=== PATIENT | male | born 1950 | race Caucasian/White ===

== ENCOUNTER 2023-04-13 10:32 | Outpatient (OUT) | payer MEDICARE, SELFPAY ==
[2023-04-13 11:30] LABS: Alanine Aminotransferase 56 U/L (16-63); Albumin Level 3.2 g/dL (3.4-5.0); Alkaline Phosphatase 74 U/L (46-116); Anion Gap 9.8; Aspartate Amino Transferase 61 U/L (15-37); BUN Creatinine Ratio 15.8; Bilirubin Total 0.5 mg/dL (0.2-1.0); Calcium 9.3 mg/dL (8.5-10.1); Carbon Dioxide 30.2 mmol/L (21.0-32.0); Chloride 105 mmol/L (98-107); Estimated GFR (African America >60 (>=60); Estimated GFR (Non-African Ame >60 (>=60); Globulin 3.3 g/dL; Glucose 181 mg/dL (74-106); Sodium 141 mmol/L (136-145); Total Protein 6.5 g/dL (6.4-8.2)
== END 2023-04-13 10:33 ==
PROVIDERS: PCP Family Medicine; Visit Provider Family Medicine
DX: E11.42 Type 2 diabetes mellitus with diabetic polyneuropathy (principal); I10 Essential (primary) hypertension; R60.9 Edema, unspecified
CPT/HCPCS: 36415; 80053; 83880

== ENCOUNTER 2023-07-15 09:57 | Outpatient (OUT) | payer MEDICARE, SELFPAY ==
--- NOTE | 2023-07-15 10:04 | XR_ITS ---
The [address] [address] Patient Name: DUARTE ABRAHAM MRN: [id number] date: 1950 Sex: M Assigned Patient Location: RAD Current Patient Location: [facility] Accession/Order Number: [id number] Exam Date: 07/15/2023 10:10 Report Date: 07/15/2023 11:48 At the request of: MADISON WOOD Procedure: XR abdomen 1V EXAMINATION: XR abdomen 1V HISTORY: Kidney stone N20.0 COMPARISON: XR KUB 01/14/2023 FINDINGS: KIDNEY/URETER - RIGHT: No visible renal or ureteral calcifications. KIDNEY/URETER - LEFT: A few small calcifications overlying inferior pole of kidney. PELVIS: No visible ureteral stones. Stable pelvic calcifications favoring phleboliths. BOWEL: No abnormal dilation or deviation. BONES: Mechanical fusion of posterior spinous process of L3 and L4. OTHER: Negative. No abnormal gaseous collections. XR/XR abdomen 1V IMPRESSION: 1. Grossly stable left nephrolithiasis. Electronically authenticated by: KEAGAN HERNANDEZ Date: 07/15/2023 11:48
== END 2023-07-15 09:58 | disposition home or self-care (01) ==
LOC: RAD 09:59
PROVIDERS: PCP Family Medicine; Visit Provider Urology
DX: N20.0 Calculus of kidney (principal)
CPT/HCPCS: 74018

== ENCOUNTER 2023-07-27 09:37 | Outpatient (OUT) | payer MEDICARE, SELFPAY ==
[2023-07-27 13:51] LABS: Prostate Specific Antigen Dx 3.18 ng/mL (<=4.00)
[2023-07-27 15:49] LABS: Anion Gap 11.7; BUN Creatinine Ratio 16.5; Carbon Dioxide 27.6 mmol/L (21.0-32.0); Chloride 106 mmol/L (98-107); Estimated GFR (African America >60 (>=60); Estimated GFR (Non-African Ame >60 (>=60); Glucose 196 mg/dL (74-106); Potassium 4.3 mmol/L (3.5-5.1); Sodium 141 mmol/L (136-145)
[2023-07-27 15:50] LABS: Alanine Aminotransferase 76 U/L (16-63); Albumin Globulin Ratio 1.2; Albumin Level 3.5 g/dL (3.4-5.0); Alkaline Phosphatase 54 U/L (46-116); Aspartate Amino Transferase 61 U/L (15-37); Bilirubin Total 0.5 mg/dL (0.2-1.0); Calcium 9.3 mg/dL (8.5-10.1); Globulin 2.9 g/dL; Total Protein 6.4 g/dL (6.4-8.2); Uric Acid 4.8 mg/dL (3.5-7.2)
[2023-07-27 15:51] LABS: Chol HDL Ratio 3.9; Cholesterol 133 mg/dL (<=200); HDL Cholesterol 34 mg/dL (40-60); Triglycerides 210 mg/dL (<=150)
[2023-07-27 16:27] LABS: Estimated Average Glucose 169 mg/dL; Glycohemoglobin A1C 7.5 % (4.5-6.2)
== END 2023-07-27 09:38 | disposition home or self-care (01) ==
LOC: LAB 09:41
PROVIDERS: PCP Family Medicine; Visit Provider Family Medicine
DX: N40.1 Benign prostatic hyperplasia with lower urinary tract symptoms (principal); I10 Essential (primary) hypertension; E11.42 Type 2 diabetes mellitus with diabetic polyneuropathy; E11.29 Type 2 diabetes mellitus with other diabetic kidney complication; E78.2 Mixed hyperlipidemia; E79.0 Hyperuricemia without signs of inflammatory arthritis and tophaceous disease
CPT/HCPCS: 36415; 80053; 80061; 83036; 84153; 84550

== ENCOUNTER 2023-10-19 14:28 | Outpatient (OUT) | payer MEDICARE, SELFPAY ==
[2023-10-19 16:01] LABS: Estimated Average Glucose 180 mg/dL; Glycohemoglobin A1C 7.9 % (4.5-6.2)
== END 2023-10-19 14:29 | disposition home or self-care (01) ==
LOC: LAB 14:30
PROVIDERS: PCP Family Medicine; Visit Provider Family Medicine
DX: E11.65 Type 2 diabetes mellitus with hyperglycemia (principal)
CPT/HCPCS: 36415; 83036

== ENCOUNTER 2024-02-02 11:04 | Outpatient (OUT) | payer MEDICARE, SELFPAY ==
[2024-02-02 12:27] LABS: Estimated Average Glucose 174 mg/dL; Glycohemoglobin A1C 7.7 % (4.5-6.2)
== END 2024-02-02 11:05 | disposition home or self-care (01) ==
PROVIDERS: PCP Family Medicine; Visit Provider Family Medicine
DX: E11.65 Type 2 diabetes mellitus with hyperglycemia (principal)
CPT/HCPCS: 36415; 83036

== ENCOUNTER 2024-02-06 21:06 | Inpatient (IN) | payer MEDICARE, SELFPAY ==
[2024-02-06] VITALS (21 sets, daily range): BP systolic 120–148; BP diastolic 56–86; PULSE 0–71; TEMP 37.1; O2SAT 78–100; BMI 38.3
--- OUTSIDE RECORDS SUMMARY | 2024-02-06 21:19 | XMS_ITS | CCD ---
Author Organization [facility] Care Team Providers Care Seasonal Clerk Name Role Phone Khoa Bowles Primary Care Provider [phone] Leopoldo Frye Attending Provider Elder Qiu Attending Provider KHOA BOWLES Primary Care Physician KHOA BOWLES Primary Care Physician Unavail able BEACH ., DR WALLACE Consulting Unavailable HEMEYER ., DR QUINTEROS Primary Care Unavailable BEACH ., DR WALLACE Attending Unavailable BEACH ., DR WALLACE Admitting Unavailable BEACH ., DR WALLACE Consulting Unavailable HEMEYER ., DR QUINTEROS Primary Care Unavailable BEACH ., DR WALLACE Attending Unavailable BEACH ., DR WALLACE Admitting Unavailable TORRES, ELINA Consulting Unavailable BEACH ., DR WALLACE Consulting Unavailable HEMEYER ., DR QUINTERSO Primary Care Unavailable BEACH ., DR WALLACE Attending Unavailable BEACH ., DR WALLACE Admitting Unavailable ISAK CORTEZ Consulting Unavailable RAHEL, LISA Consulting Unavailable SWATI ROE Consulting Unavailable HEMEYER ., DR QUINTEROS Primary Care Unavailable HEMEYER ., DR QUINTEROS Attending Unavailable HEMEYER ., DR QUINTEROS Admitting Unavailable HEMEYER ., DR QUINTEROS Primary Care Unavailable BEACH ., DR WALLACE Attending Unavailable BEACH ., DR WALLACE Admitting Unavailable HEMEYER ., DR QUINTEROS Consulting Unavailable HEMEYER ., DR QUINTEROS Primary Care Unavailable HEMEYER ., DR QUINTEROS Attending Unavailable HEMEYER ., DR QUINTEROS Admitting Unavailable HEMEYER ., DR QUINTEROS Consulting Unavailable HEMEYER ., DR QUINTEROS Primary Care Unavailable HEMEYER ., DR QUINTEROS Attending Unavailable HEMEYER ., DR QUINTEROS Admitting Unavailable HEMEYER ., DR QUINTEROS Consulting Unavailable HEMEYER ., DR QUINTEROS Primary Care Unavailable HEMMER, DR BACILIO Carvajal Attending Unavailable HEMMER, DR BACILIO Carvajal Admitting Unavailable BEACH ., DR WALLACE Consulting Unavailable HEMEYER ., DR QUINTEROS Primary Care Unavailable BEACH ., DR WALLACE Attending Unavailable BEACH ., DR WALLACE Admitting Unavailable [place], DR TALI Jeffries Consulting Unavailable BEACH ., DR WALLACE Consulting Unavailable HEMEYER ., DR QUINTEROS Primary Care Unavailable BEACH ., DR WALLACE Attending Unavailable BEACH ., DR WALLACE Admitting Unavailable MD Khoa Bowles Primary Care Provider [phone] MARIZOL Ryan Attending Provider NINA, Jude R Attending Unavailable BEACH, Jude R Attending Unavailable BEACH, Jude R Attending Unavailable BEACH, Jude R Attending Unavailable BEACH, Jude R Attending Unavailable NINA, Jude Crespo Attending Unavailable Yaquelin Ryan Attending Unavailable Yaquelin Ryan Admitting Unavailable Khoa Bowles Primary Care Unavailable KHOA BOWLES Attending Unavailable PREET ENRIQUE Attending Unavailable Khoa Bowles MD Primary Care Provider Jude Beach MD Unavailable [phone] Preet Enrique DPM Unavailable [phone] Allergies Allergy Classification Reported Allergen(s) Allergy Type Date of Onset Reaction(s) Facility Opioid Agonists (1 source) Meperidine Drug Allergy 1 [facility] (4 sources) Meperidine / Promethazine; Translations: [meperidine-prome thazine] Drug Allergy Unknown (qualifier value) [facility] (5 sources) Meperidine; Translations: [meperidine] Drug Allergy 4 Tremor (finding) [facility] (2 sources) Meperidine Drug Allergy 3 [facility] (2 sources) pioglitazone Drug Allergy 3 [facility] (1 source) Doxycycline; Translations: [doxycycline] Drug Allergy [facility] (1 source) Meperidine Drug Allergy 1 [facility] (1 source) Meperidine Drug Allergy 2 [facility] (1 source) pioglitazone Drug Allergy 3 Swelling [facility] Medications Current Medications Medication Drug Class(es) Dates Sig (Normalized) Sig (Original) allopurinol 300 mg oral tablet (6 sources) Xanthine Oxidase Inhibitor Start: 11-04-2023 End: 05-02-2024 take 1 tablet by mouth in the morning allopurinol (Zyloprim) 300 MG tablet Indications: Polypharmacy Take 1 tablet (300 mg) by mouth in the morning. 90 tablet 1 11/04/2023 05/02/2024 Active Start: 12-30-2022 take 1 tablet by noemi th once daily allopurinol 300 mg Tab 300 mg = 1 tab(s), Oral, Daily, # 90 tab(s), Refills(s) 3, Pharmacy: [facility]/pharmacy #[id number], 185, cm, 12/22/21 12:11:00 EST, Height/Length Dosing, 136.7, kg, 12/22/21 12:11:00 EST, Weight Dosing Start Date: 12/30/22 Status: Ordered Start: 11-09-2018 take 1 tablet by noemi th once daily allopurinol 300 mg Tab 300 mg = 1 tab(s), Oral, Daily, # 90 tab(s), Refills(s) 3, Pharmacy: [facility]/pharmacy #[id number], 185, cm, 09/15/21 11:40:00 EST, Height/Length Dosing, 137, kg, 09/15/21 11:40:00 EST, Weight Dosing Start Date: 09/24/21 Status: Ordered aspirin 81 mg oral tablet (6 sources) Platelet Aggregation Inhibitor, Nonsteroidal Anti-inflammatory Drug Start: 09-18-2019 take 1 mg by mouth once daily aspirin 81 mg oral tablet mg tab(s), Oral, Daily, Refills(s) 0 Start Date: 09/18/19 Status: Ordered Start: 11-23-2018 take 1 tablet by noemi th once daily in the morning Aspirin (Aspirin Low Dose) 81 mg Tablet,Delayed Release (Dr/Ec) Active 81 MG PO Every morning November 23, 2018 9:16am biotin 10 mg oral capsule (3 sources) Start: 11-09-2018 take 31751 ug by mouth twice daily Biotin Active 13623 MCG PO Twice daily November 09, 2018 3:30pm biotin 62823 MCG tablet 1 (one) time each day at the same time. 0 Active cyclobenzaprine hydrochloride 10 mg oral tablet (3 sources) Muscle Relaxant Start: 04-17-2021 take 10 mg by mouth three times daily Cyclobenzaprine Active 10 MG PO Three times daily 50 April 17, 2021 12:00am Start: 11-24-2018 End: 04-03-2021 take 10 mg by mouth three times daily Cyclobenzaprine Discontinued 10 MG PO Three times daily 50 November 24, 2018 1:56pm April 03, 2021 11:56am dapagliflozin 10 mg oral tablet (1 source) Sodium-Glucose Cotransporter 2 Inhibitor Start: 11-04-2023 End: 02-02-2024 take 1 tablet by mouth in the morning dapagliflozin (Farxiga) 10 MG Indications: Diabetic nephropathy associated with type 2 diabetes mellitus (HCC) (CMS/HCC) Take 1 tablet (10 mg) by mouth in the morning. 90 tablet 0 11/04/2023 02/02/2024 Active doxycycline monohydrate 100 mg oral capsule (6 sources) Tetracycline-class Drug Start: 11-04-2023 End: 10-29-2024 take 1 capsule by mouth in the morning doxycycline (Monodox) 100 MG capsule Indications: Chronic cellulitis Take 1 capsule (100 mg) by mouth in the morning. 90 capsule 3 11/04/2023 10/29/2024 Active Start: 09-18-2019 take 1 mg by mouth twice daily doxycycline hyclate 100 mg Cap mg cap(s), Oral, BID, Refills(s) 0 Start Date: 09/18/19 Status: Ordered Start: 11-09-2018 take 100 mg by mouth once daily in the morning Doxycycline Hyclate Active 100 MG PO Every morning November 09, 2018 3:30pm fenofibrate 160 mg oral tablet (1 source) Peroxisome Proliferator Receptor alpha Agonist Start: 11-04-2023 End: 02-02-2024 take 1 tablet by mouth in the morning fenofibrate (Triglide) 160 MG tablet Indications: Mixed hyperlipidemia (CMS/HCC) Take 1 tablet (160 mg) by mouth in the morning. 90 tablet 0 11/04/2023 02/02/2024 Active ferrous sulfate 325 mg oral tablet (3 sources) Start: 11-09-2018 take 1 tablet by mouth once daily Ferrous Sulfate (Iron (Ferrous Sulfate)) 325 mg (65 mg iron) Tablet Active 325 MG PO Daily November 09, 2018 3:30pm gabapentin 300 mg oral capsule (4 sources) Anti-epileptic Agent Start: 07-21-2023 take 1 capsule by mouth twice daily gabapentin 300 mg Cap 300 mg = 1 cap(s), Oral, BID Start Date: 07/21/23 Status: Ordered Start: 11-09-2018 End: 04-03-2021 take 400 mg by mouth three times daily Gabapentin Discontinued 400 MG PO Three times daily November 09, 2018 3:30pm April 03, 2021 11:56am gemfibrozil 600 mg oral tablet (5 sources) Peroxisome Proliferator Receptor alpha Agonist Start: 11-09-2018 take 1 mg by mouth twice daily gemfibrozil 600 mg Tab mg tab(s), Oral, BID, Refills(s) 0 Start Date: 09/18/19 Status: Ordered glipiZIDE er 10 mg 24 hr extended release oral tablet (5 sources) Sulfonylurea Start: 09-16-2020 take 1 mg by mouth once daily glipiZIDE 10 mg ER Tab mg tab(s), Oral, Daily, Refills(s) 0 Start Date: 09/16/20 Status: Ordered Start: 11-09-2018 take 10 mg by mouth twice rocio y Glipizide Active 10 MG PO Twice daily November 09, 2018 3:30pm hydroCHLOROthiazide 25 mg oral tablet (5 sources) Thiazide Diuretic Start: 01-11-2023 End: 05-02-2024 take 1 tablet by mouth in the evening hydroCHLOROthiazide (HYDRODiuril) 25 MG tablet Indications: Essential hypertension (CMS/HCC) Take 1 tablet (25 mg) by mouth in the evening 90 tablet 1 11/04/2023 05/02/2024 Active Start: 11-09-2018 End: 01-07-2023 take 1 tablet by mouth once daily hydrochlorothiazide 25 mg Tab 25 mg = 1 tab(s), Oral, Daily, X 90 day(s), # 90 tab(s), Refills(s) 0, Pharmacy: [facility]/pharmacy #[id number], 185, cm, 12/22/21 12:11:00 EST, Height/Length Dosing, 136.7, kg, 12/22/21 12:11:00 EST, Weight Dosing Start Date: 10/09/22 Stop Date: 01/07/23 Status: Ordered hydroCHLOROthiazide 12.5 mg / losartan potassium 100 mg oral tablet (3 sources) Thiazide Diuretic, Angiotensin 2 Receptor Dean Start: 11-04-2023 End: 02-02-2024 take 1 tablet by mouth in the morning losartan-hydroCHLOROthiazide (Hyzaar) 100-12.5 MG tablet Indications: Essential hypertension (CMS/HCC) Take 1 tablet by mouth in the morning. 90 tablet 0 11/04/2023 02/02/2024 Active Start: 11-09-2018 take 1 tablet by noemi th once daily in the morning Losartan-Hydrochlorothiazide Active 1 TA B PO Every morning November 09, 2018 3:30pm 3 ml insulin glargine 100 unt/ml pen injector (1 source) Insulin Analog Start: 11-23-2023 insulin glargi ne (Basaglar KwikPen) 100 UNIT/ML pen Indications: Type 2 diabetes mellitus with hyperglycemia, without long-term current use of insulin (CMS/HCC) Inject before supper, sliding blood glucose scale; 250=8u Strength: 100 UNIT/ML 3 mL 0 11/23/2023 Active lutein 20 mg oral capsule (3 sources) Start: 11-09-2018 take 20 mg by mouth once daily Lutein Active 20 MG PO Daily November 09, 2018 3:30pm Lutein 20 MG tab let 1 (one) time each day at the same time. 0 Active metFORMIN hydrochloride 1000 mg oral tablet (3 sources) Biguanide Start: 11-04-2023 End: 02-02-2024 take 1 tablet by mouth in the morning metFORMIN (Glucophage) 1000 MG tablet Indications: Type 2 diabetes mellitus with hyperglycemia, without long-term current use of insulin (CMS/HCC) Take 1 tablet (1,000 mg) by mouth in the morning and 1 tablet (1,000 mg) in the evening. Take with meals. 180 tablet 0 11/04/2023 02/02/2024 Active Start: 11-09-2018 take 500 mg by mouth twice velvet ly Metformin Active 500 MG PO Twice daily November 09, 2018 3:30pm metoprolol tartrate 50 mg oral tablet (6 sources) beta-Adrenergic Dean Start: 11-04-2023 End: 02-02-2024 take 1 tablet by mouth in the morning metoprolol tartrate (Lopressor) 50 MG tablet Indications: Essential hypertension (CMS/HCC) Take 1 tablet (50 mg) by mouth in the morning and 1 tablet (50 mg) before bedtime. 180 tablet 0 11/04/2023 02/02/2024 Active Start: 11-09-2018 take 1 mg by mouth twice daily Metoprolol tartrate 50 mg Tab mg tab(s), Oral, BID, Refills(s) 0 Start Date: 09/18/19 Status: Ordered Multivitamin preparation (2 sources) Start: 04-03-2021 take 1 tablet by mouth once daily Multivitamin Active 1 TAB PO Daily April 03, 2021 11:58am Start: 04-03-2021 take 1 tablet by noemi th once daily Multivitamin Active 1 TAB PO Daily April 03, 2021 12:00am oxyCODONE hydrochloride 5 mg oral capsule (3 sources) Opioid Agonist Start: 04-17-2021 take 5-10 mg by mouth every six hours Oxycodone Active 5 - 10 MG PO Q6H 40 8 April 17, 2021 Start: 11-24-2018 End: 04-03-2021 take 1 tablet by mouth every six hours Oxycodone (Roxicodone) 5 mg Tablet Discontinued 1 - 2 TAB PO Q6H 60 8 November 24, 2018 April 03, 2021 11:57am Prednisone (3 sources) Start: 04-17-2021 Prednisone Act rober 1 dose pk PO per package directions April 17, 2021 12:00am take 4 tabs for 3 days then take 3 tabs for 3 days then take 2 tabs for 3 days then take 1 tab for 3 days Start: 11-24-2018 End: 04-03-2021 Prednisone Discontinued 1 do se pk PO per package directions November 24, 2018 1:57pm April 03, 2021 11:57am take 4 tabs for 3 days then take 3 tabs for 3 days then take 2 tabs for 3 days then take 1 tab for 3 days Start: 11-24-2018 End: 04-03-2021 Prednisone Discontinued 1 do se pk PO per package directions November 24, 2018 1:00am April 03, 2021 11:57am take 4 tabs for 3 days then take 3 tabs for 3 days then take 2 tabs for 3 days then take 1 tab for 3 days sodium bicarbonate 650 mg oral tablet (6 sources) Start: 11-08-2022 take 3 tablets by mouth twice daily sodium bicarbonate 650 mg Tab 1,950 mg = 3 tab(s), Oral, BID, # 180 tab(s), Refills(s) 11, Pharmacy: [facility]/pharmacy #[id number], 185, cm, 12/22/21 12:11:00 EST, Height/Length Dosing, 136.7, kg, 12/22/21 12:11:00 EST, Weight Dosing Start Date: 11/08/22 Status: Ordered Start: 11-05-2021 End: 10-31-2022 take 3 tablets by mouth twice daily sodium bicarbonate 650 mg Tab 1,950 mg = 3 tab(s), Oral, BID, X 90 day(s), # 540 tab(s), Refills(s) 3, [id number], cm, 09/15/21 11:40:00 EST, Height/Length Dosing, 137, kg, 09/15/21 11:40:00 EST, Weight Dosing Start Date: 11/05/21 Stop Date: 10/31/22 Status: Ordered Start: 11-09-2018 take 1950 mg by mout h twice daily Sodium Bicarbonate Active 1950 MG PO Twice daily November 09, 2018 3:30pm spironolactone 25 mg oral tablet (1 source) Aldosterone Antagonist Start: 11-04-2023 spironolactone (Aldactone) 25 MG tablet Indications: Lymphedema of both lower extremities 2 tablets in Am and 1 tablet in PM 270 tablet 0 11/04/2023 Active tamsulosin hydrochloride 0.4 mg oral capsule (6 sources) alpha-Adrenergic Dean Start: 12-30-2022 take 1 capsule by mouth once daily tamsulosin 0.4 mg Cap 0.4 mg = 1 cap(s), Oral, Daily, # 90 cap(s), Refills(s) 3, Pharmacy: [facility]/pharmacy #[id number], 185, cm, 12/22/21 12:11:00 EST, Height/Length Dosing, 136.7, kg, 12/22/21 12:11:00 EST, Weight Dosing Start Date: 12/30/22 Status: Ordered Start: 11-09-2018 take 1 capsule by mo uth once daily tamsulosin 0.4 mg Cap 0.4 mg = 1 cap(s), Oral, Daily, # 90 cap(s), Refills(s) 3, Pharmacy: [facility]/pharmacy #[id number], 185, cm, 12/22/21 12:11:00 EST, Height/Length Dosing, 136.7, kg, 12/22/21 12:11:00 EST, Weight Dosing Start Date: 12/22/21 Status: Ordered take 1 capsule by mo uth every twenty-four hours in the evening Flomax 0.4 MG 24 hr capsule Take 0.4 mg by mouth in the evening. 0 Active Completed/Discontinued Medications Medication Drug Class(es) Dates Sig (Normalized) Sig (Original) cephalexin 500 mg oral capsule (2 sources) Cephalosporin Antibacterial Start: 11-24-2018 End: 04-03-2021 take 1 capsule by mouth every eight hours Cephalexin (Keflex) 500 mg capsule Discontinued 500 MG PO Q8H November 24, 2018 1:56pm April 03, 2021 11:58am zonisamide 25 mg oral capsule (2 sources) Anti-epileptic Agent Start: 11-09-2018 End: 04-03-2021 take 50 mg by mouth twice daily Zonisamide Discontinued 50 MG PO Twice daily November 09, 2018 3:30pm April 03, 2021 11:57am Problems Active Problems Problem Classification Problem Date Documented Date Episodic/Chronic Acquired foot deformities (1 source) Metatarsophalangeal joint stiff; Translations: [Other deformities of toe(s) (acquired), left foot] 12-09-2023 Episodic Chronic ulcer of skin (2 sources) Non-pressure chronic ulcer of other part of left foot limited to breakdown of skin; Translations: [Ulcer of other part of foot] Onset: 1 04-12-2023 Chronic Coagulation and hemorrhagic disorders (1 source) Thrombocytopenic disorder; Translations: [Thrombocytopenia, unspecified] Onset: 3 04-12-2023 Chronic Conduction disorders (1 source) Right bundle branch block; Translations: [Unspecified right bundle-branch block] Onset: 3 04-12-2023 Chronic Diabetes mellitus with complications (14 sources) Type 2 diabetes mellitus with diabetic polyneuropathy; Translations: [Type 2 diabetes mellitus with other diabetic neurological complication] Onset: 6 Chronic Disorders of lipid metabolism (6 sources) Hyperlipidemia; Translations: [Hyperlipidemia, unspecified] Onset: 2 09-18-2019 Chronic Diverticulosis and diverticulitis (1 source) Diverticulosis of colon; Translations: [Diverticulosis of large intestine without perforation or abscess without bleeding] Onset: 5 04-12-2023 Chronic Essential hypertension (9 sources) Hypertensive disorder; Translations: [Essential (primary) hypertension] Onset: 2 09-18-2019 Chronic Hyperplasia of prostate (14 sources) Benign prostatic hypertrophy with outflow obstruction; Translations: [Benign prostatic hyperplasia with lower urinary tract symptoms] Onset: 6 Chronic Hypertension with complications and secondary hypertension (1 source) Hypertensive left ventricular hypertrophy; Translations: [Hypertensive heart disease without heart failure] Onset: 3 04-12-2023 Chronic Mycoses (1 source) Onychomycosis; Translations: [Tinea unguium] 12-09-2023 Episodic Other aftercare (1 source) [facility]DC (current) use of anticoagulants; Translations: [[facility]PC CURRNT USE ANTICOAGULANTS] Onset: 3 Episodic Other aftercare (1 source) [facility]DC (current) use of oral hypoglycemic drugs; Translations: [[facility] USE ORAL HYPOGLYCEMIC DX] Onset: 3 Episodic Other aftercare (1 source) Other extermination inspector (current) drug therapy; Translations: [OTH [facility]PC CURRENT DRUG THERAPY] Onset: 3 Episodic Other diseases of veins and lymphatics (1 source) Lymphedema of bilateral lower limbs; Translations: [Lymphedema, not elsewhere classified] Onset: 3 04-12-2023 Chronic Other nervous system disorders (1 source) Difficulty walking; Translations: [Difficulty in walking, not elsewhere classified] Onset: 3 04-12-2023 Chronic Other nutritional; endocrine; and metabolic disorders (1 source) Morbid obesity; Translations: [Morbid (severe) obesity due to excess calories] Onset: 3 04-12-2023 Chronic Other skin disorders (1 source) Acquired keratoderma; Translations: [Acquired keratosis [keratoderma] palmaris et plantaris] 12-09-2023 Episodic Residual codes; unclassified (1 source) Dependence on continuous positive airway pressure ventilation; Translations: [Dependence on other enabling machines and devices] Onset: 3 04-12-2023 Chronic Residual codes; unclassified (1 source) Obstructive sleep apnea syndrome; Translations: [Obstructive sleep apnea (adult) (pediatric)] Onset: 3 04-12-2023 Chronic Residual codes; unclassified (2 sources) Family history of cancer; Translations: [Family history of malignant neoplasm of prostate] Onset: 3 Episodic Residual codes; unclassified (1 source) Family history of malignant neoplasm of prostate; Translations: [FAMILY HX MALIG NEOPLASM PROSTATE] Onset: 3 Episodic Retinal detachments; defects; vascular occlusion; and retinopathy (2 sources) Bilateral age-related nonexudative macular degeneration; Translations: [Nonexudative age-related macular degeneration, bilateral, stage unspecified] Onset: 6 04-12-2023 Chronic Spondylosis; intervertebral disc disorders; other back problems (2 sources) Spondylosis; Translations: [Other spondylosis with radiculopathy, thoracolumbar region] Onset: 0 04-12-2023 Chronic Spondylosis; intervertebral disc disorders; other back problems (4 sources) Spinal stenosis of lumbar region; Translations: [Spinal stenosis, lumbar region with neurogenic claudication] Onset: 4 04-17-2021 Episodic Unclassified (1 source) Spinal stenosis, lumbar region without neurogenic claudication; Translations: [Spinal stenosis, lumbar region without neurogenic claudication] Onset: 3 Past or Other Problems Problem Classification Problem Date Documented Da te Episodic/Chronic Abdominal pain (1 source) Flank pain; Translations: [Unspecified abdominal pain] Onset: 02-01-2014 07-28-2023 Episodic Calculus of urinary tract (16 sources) Kidney stone; Translations: [Calculus of kidney] Onset: 09-21-2022 Episodic Deficiency and other anemia (1 source) Iron deficiency anemia secondary to inadequate dietary iron intake; Translations: [Other iron deficiency anemias] Onset: 04-12-2023 04-12-2023 Episodic Diabetes mellitus without complication (5 sources) Diabetes mellitus; Translations: [Type 2 diabetes mellitus without complications] Onset: 01-20-2023 Resolved: 11-04-2023 09-18-2019 Chronic Genitourinary symptoms and ill-defined conditions (14 sources) Nocturia; Translations: [Nocturia] Onset: 09-21-2022 Resolved: 11-04-2023 Episodic Heart valve disorders (1 source) Heart murmur; Translations: [Cardiac murmur, unspecified] Onset: 04-12-2023 04-12-2023 Episodic Other acquired deformities (1 source) Lumbar spondylolisthesis; Translations: [Spondylolisthesis, lumbar region] Onset: 04-12-2023 04-12-2023 Episodic Other aftercare (1 source) Polypharmacy ; Translations: [Other skilled nursing (current) drug therapy] Onset: 08-05-2021 07-28-2023 Episodic Other connective tissue disease (1 source) H/O: arthrodesis; Translations: [Arthrodesis status] Onset: 10-02-2020 11-04-2023 Episodic Other diseases of veins and lymphatics (1 source) Lymphedema; Translations: [Lymphedema, not elsewhere classified] Onset: 07-19-2016 Resolved: 11-04-2023 11-04-2023 Chronic Other diseases of veins and lymphatics (1 source) Stasis dermatitis; Translations: [Venous insufficiency (chronic) (peripheral)] Onset: 04-12-2023 04-12-2023 Episodic Other diseases of veins and lymphatics (1 source) Peripheral venous insufficiency; Translations: [Venous insufficiency (chronic) (peripheral)] Onset: 08-05-2021 07-28-2023 Episodic Other nutritional; endocrine; and metabolic disorders (1 source) Body mass index 40+ - severely obese; Translations: [Body mass index (BMI) 40.0-44.9, adult] Onset: 02-01-2014 Resolved: 11-04-2023 11-04-2023 Chronic Other nutritional; endocrine; and metabolic disorders (1 source) Obese class II; Translations: [Obesity, unspecified] Onset: 10-02-2020 Resolved: 11-04-2023 11-04-2023 Chronic Other nutritional; endocrine; and metabolic disorders (1 source) Hyperuricemia without signs of inflammatory arthritis and tophaceous disease; Translations: [HU W/O SIGNS IA AND TOPHACEOUS DZ] Onset: 05-08-2022 Episodic Other nutritional; endocrine; and metabolic disorders (1 source) Hyperuricemia; Translations: [Hyperuricemia without signs of inflammatory arthritis and tophaceous disease] Onset: 04-12-2023 04-12-2023 Episodic Other screening for suspected conditions (not mental disorders or infectious disease) (8 sources) Raised prostate specific antigen; Translations: [Elevated prostate specific antigen [PSA]] Onset: 09-21-2022 Episodic Phlebitis; thrombophlebitis and thromboembolism (5 sources) Deep venous thrombosis of lower extremity; Translations: [Personal history of other venous thrombosis and embolism] Onset: 01-20-2023 09-18-2019 Episodic Residual codes; unclassified (4 sources) Family history of prostate cancer; Translations: [Family history of malignant neoplasm of prostate] Onset: 07-28-2023 Resolved: 11-04-2023 12-22-2021 Episodic Skin and subcutaneous tissue infections (1 source) Cellulitis; Translations: [Cellulitis, unspecified] Onset: 04-12-2023 04-12-2023 Episodic Results Test Name Value Interpretation Reference Range Facility XR pre/post mri xrayon 08-05 XR pre/post mri xray [facility] [place] [address] MRI Report Signed with Addenda Patient: Manuel Balderas MR#: [id number] : 1950 Acct:[id number] Age/Sex: 73 / M ADM Date: 08/05/23 Loc: [facility] Room: Type: [facility] Attending Dr: Yaquelin Ryan PA-C Copies to: Yaquelin Ryan PA-C Ordering Provider: Yaquelni Ryan PA-C Date of Service: 08/05/23 MR/MR lumbar spine wo con: M54.10 ([id number]) XR/XR pre/post mri xray: LUMBAR MRI ADDENDUM 1 Addendum for roller printer error: L1-L2: Diffuse broad-based disc bulge is present with ligamentum flavum hypertrophy and facet joint degenerative changes causing moderate canal and bilateral neural foraminal stenosis. Impression dictated by: Rickie Cornejo Jr., D.OSiria09/21/2023 12:23 PM Dictation Location: [place] [address] Addendum Dictated By: Rickie Cornejo Jr, DO Addendum Signed By: 09/21/231222 Addendum Cosigned By: DD/ TD/TT: 09/21/23 MRI lumbar spine without IV contrast. Next Reason for exam: Chronic low back pain radiates into both legs with weakness. No known injury. History of lumbar spine surgery. COMPARISON: Lumbar spine series 06/03/2021. FINDINGS: Blooming artifact is seen involving the posterior elements of the L4 vertebral body level consistent with hardware fixation confirmed on the prior plain film series. Vertebral body heights appear maintained. Hemangiomas are noted involving the L2, L3 and L5 vertebral body levels. Vertebral body heights appear maintained. Diffuse disc desiccation is noted. Spinal cord terminates in normal position without evidence of abnormal signal. No paraspinal mass. Visualized retroperitoneum demonstrates no acute findings. L1-L2: Diffuse broad-based disc bulge is present malignant flavum hypertrophy and facet joint degenerative changes causing moderate canal and bilateral neural foraminal stenosis. L2-L3: Diffuse broad-based disc bulge is present with ligamentum flavum hypertrophy and facet joint degenerative changes causing moderate canal and mild bilateral neural foraminal stenosis. L3-L4: 4 mm of anterolisthesis of L3 on L4. Diffuse broad-based disc bulge is present with ligamentum flavum hypertrophy and facet joint degenerative changes causing moderate canal and bilateral neural foraminal stenosis. L4-L5: Postoperative changes. Diffuse broad-based disc bulge is present with central extrusion type disc herniation extending inferiorly along the posterior aspect of the L5 vertebrae with ligamentum flavum hypertrophy and facet joint facet joint degenerative changes. Findings are causing moderate canal and bilateral neural foraminal stenosis. L5-S1: Diffuse broad-based disc bulge is present with facet joint degenerative changes causing mild canal and moderate bilateral foraminal stenosis. MR/MR lumbar spine wo con IMPRESSION: Diffuse degenerative disc disease as described above predominantly causing moderate canal or neural foraminal stenosis. Lumbar spine 2 views. Reason for exam: Chronic low back pain that radiates to both legs with weakness. COMPARISON: Lumbar spine series 06/03/2021. FINDINGS: Posterior hardware is seen involving the L4 vertebral body. Vertebral body heights appear maintained. Multilevel degenerative disc disease is present best evaluated by MRI. SI joints also demonstrate degenerative change. IMPRESSION: Multilevel degenerative disease best evaluated by MRI. Impression dictated by: Rickie Cornejo Jr., D.OSiria08/05/2023 3:00 PM Dictation Location: [facility]-- Transcribed By: [facility] 08/05/23 1500 Dictated By: iRckie Cornejo Jr, DO 08/05/23 1454 Signed By: 08/05/23 1500 [facility] Lab Reportson 07-30-2023 Lab Reports [id number] D:127 Normal [facility] Screenson 07-22-2023 Screens [id number] CD:127 Normal [facility] Ambulatory Visit Summaryon 0 07-21-2023 Ambulatory Visit Summary MANUEL BALDERAS Joaquín :1950 Visit Date:07/21/2023 Ambulatory Visit Instructions Your Diagnosis Kidney stones Elevated PSA BPH with urinary obstruction Family history of prostate cancer in father Tests Performed Urnls Dip Stick Auto w/[place]scopy [place] 26236 XR Abdomen 1 View -- Results Pending -- Please visit your patient portal for your results or contact your primary care physician. Your Care Team Attending Physician - NINA LEVY, Jude Crespo Primary Care Physician - JELENA LEVY, KHOA Yanes This Is Your Medications List allopurinol (allopurinol 300 mg Tab) hydrochlorothiazide (hydrochlorothiazide 25 mg Tab) sodium bicarbonate (sodium bicarbonate 650 mg Tab) tamsulosin (tamsulosin 0.4 mg Cap) Contact prescribing physician if questions or concerns aspirin (aspirin 81 mg oral tablet) doxycycline (doxycycline hyclate 100 mg Cap) gabapentin (gabapentin 300 mg Cap) gemfibrozil (gemfibrozil 600 mg Tab) glipiZIDE (glipiZIDE 10 mg ER Tab) metoprolol (Metoprolol tartrate 50 mg Tab) Procedures Performed ESWL - Extracorporeal shockwave lithotripsy for renal calculus (01/14/2023), Cystoscopy (04/30/2015), Percutaneous nephrolithotomy (02/21/2014), Percutaneous nephrolithotomy (01/23/2014), Dormia basket extraction of ureteric calculus (12/27/2013), Dormia basket extraction of ureteric calculus (11/23/2013), Cystoscopic insertion of ureteric stent (10/26/2013), Cystoscopic removal of ureteric stent (07/01/2004), Dormia basket extraction of ureteric calculus (06/24/2004), Ankle, Back, Colonoscopy, History of hernia repair, Rotator cuff. Discharge Vitals Heart Rate (Peripheral) 54 Blood Pressure 117/64 Height 185 cm Height 73 in Weight 138.2 kg Weight 304.04 lb BMI 40.38 What to do next Scheduled Follow-Up Appointments Wednesday 1:45 PM EDT With: NINA LEVY, Jude Crespo Where: [facility] Patient Educationon 07-21-20 Patient Education Nephrology Dietary Guidelines to Help Prevent Kidney Stones Kidney stones are deposits of minerals and salts that form inside your kidneys. Your risk of developing kidney stones may be greater depending on your diet, your lifestyle, the medicines you take, and whether you have certain medical conditions. Most people can lower their chances of developing kidney stones by following the instructions below. Your dietitian may give you more specific instructions depending on your overall health and the type of kidney stones you tend to develop. What are tips for following this plan? Reading food labels ? Choose foods with no salt added or low-salt labels. Limit your salt (sodium) intake to less than 1,500 mg a day. ? Choose foods with calcium for each meal and snack. Try to eat about 300 mg of calcium at each meal. Foods that contain 200?500 mg of calcium a serving include: ? 8 oz (237 mL) of milk, ceogsfo-mznbwhhoaljk-bh iry milk, and calcium-fortifiedfruit juice. Calcium-fortified means that calcium has been added to these drinks. ? 8 oz (237 mL) of kefir, yogurt, and soy yogurt. ? 4 oz (114 g) of tofu. ? 1 oz (28 g) of cheese. ? 1 cup (150 g) of dried figs. ? 1 cup (91 g) of cooked broccoli. ? One 3 oz (85 g) can of sardines or mackerel. Most people need 1,000?1,500 mg of calcium a day. Talk to your dietitian about how much calcium is recommended for you. Shopping ? Buy plenty of fresh fruits and vegetables. Most people do not need to avoid fruits and vegetables, even if these foods contain nutrients that may contribute to kidney stones. ? When shopping for convenience foods, choose: ? Whole pieces of fruit. ? Pre-made salads with dressing on the side. ? Low-fat fruit and yogurt smoothies. ? Avoid buying frozen meals or prepared deli foods. These can be high in sodium. ? Look for foods with live cultures, such as yogurt and kefir. ? Choose high-fiber grains, such as whole-wheat breads, oat bran, and wheat cereals. Cooking ? Do not add salt to food when cooking. Place a salt shaker on the table and allow each person to add his or her own salt to taste. ? Use vegetable protein, such as beans, textured vegetable protein (TVP), or tofu, instead of meat in pasta, casseroles, and soups. Meal planning ? Eat less salt, if told by your dietitian. To do this: ? Avoid eating processed or pre-made food. ? Avoid eating fast food. ? Eat less animal protein, including cheese, meat, poultry, or fish, if told by your dietitian. To do this: ? Limit the number of times you have meat, poultry, fish, or cheese each week. Eat a diet free of meat at least 2 days a week. ? Eat only one serving each day of meat, poultry, fish, or seafood. ? When you prepare animal protein, cut pieces into small portion sizes. For most meat and fish, one serving is about the size of the palm of your hand. ? Eat at least five servings of fresh fruits and vegetables each day. To do this: ? Keep fruits and vegetables on hand for snacks. ? Eat one piece of fruit or a handful of berries with breakfast. ? Have a salad and fruit at lunch. ? Have two kinds of vegetables at dinner. ? Limit foods that are high in a substance called oxalate. These include: ? Spinach (cooked), rhubarb, beets, sweet potatoes, and Somali chard. ? Peanuts. ? Potato chips, croatian fries, and baked potatoes with skin on. ? Nuts and nut products. ? Chocolate. ? If you regularly take a diuretic medicine, make sure to eat at least 1 or 2 servings of fruits or vegetables that are high in potassium each day. These include: ? Avocado. ? Banana. ? [place], prune, carrot, or tomato juice. ? Baked potato. ? Cabbage. ? Beans and split peas. Lifestyle ? Drink enough fluid to keep your urine pale yellow. This is the most important thing you can do. Spread your fluid intake throughout the day. ? If you drink alcohol: ? Limit how much you use to: ? 0?1 drink a day for women who are not . ? 0?2 drinks a day for men. ? Be aware of how much alcohol is in your drink. In the [place] one drink equals one 12 oz bottle of beer (355 mL), one 5 oz glass of wine (148 mL), or one 1? oz glass of hard liquor (44 mL). ? Lose weight if told by your health care provider. Work with your dietitian to find an eating plan and weight loss strategies that work best for you. General information ? Talk to your health care provider and dietitian about taking daily supplements. You may be told the following depending on your health and the cause of your kidney stones: ? Not to take supplements with vitamin C. ? To take a calcium supplement. ? To take a daily probiotic supplement. ? To take other supplements such as magnesium, fish oil, or vitamin B6. ? Take zvsz-cep-bwmrcif and prescription medicines only as told by your health care provider. These include supplements. What foods should I limit? Limit your in (more content not included)... Normal [facility] Urology Office/Clinic Noteon 07-21-2023 Urology Office/Clinic Note Chief Complaint PO ESWL HPI Staff PO ESWL 01/14/23, review metabolic work up done 02/04/23, review KUB done 07/15/23. Previous DX: BPH with urinary obstruction, elevated PSA, family history of prostate cancer, gross hematuria, nocturia, personal history of kidney stones, proteinuria, renal stone. *Flomax 0.4m QD. S/P cysto 04/30/15. IPSS 6. Dysuria: denies pain or burning Incomplete bladder emptying: denies Hematuria: denies visible blood Frequency: mild intermittent Urgency: denies Nocturia: 2x a night Stream: denies hesitancy, denies weak stream Leaking: denies Post void dripping: yes Wearing pads/ Depends: yes wears depends daily, changes twice a day Urge incontinence: denies Stress incontinence: denies Incontinence without Sensory Awareness: denies Abdominal pain: denies Flank pain: denies Sexual complaints: denies History of Present Illness Tests reviewed: reviewed UA, op note, KUB, metabolic workup I have reviewed the previous health record information and history for this patient from Dr. Beach. I have reviewed and verified the staff HPI to be accurate for this encounter. There have been no associated fever, chills, flank pain, or blood in the urine. Denies any urinary infections since last encounter. Review of Systems PHQ Score Initial Depression Screen Score: 0 ROS - Provider Constitutional: denies weight loss, denies hot flashes. Eyes: denies eye problems. Gastrointestinal: denies nausea, denies vomiting. Cardiovascular: denies chest pain or angina. Integumentary: no dryness Musculoskeletal: denies musculoskeletal symptoms. ENMT: denies otolaryngeal symptoms. Respiratory: no shortness of breath. Heme/Lymph: denies easy bleeding tendency, denies easy bruising tendency. Psychiatric: no confusion, no anxiety. Genitourinary: See HPI. Physical Exam Vitals & Measurements HR: 54(Peripheral) BP: 117/64 HT: 73 in HT: 185 cm WT: 138.2 kg WT: 304.04 lb BMI: 40.38 General Appearance: alert, no distress, well nourished, well developed male. Genitourinary: normal scrotum, normal testes, normal urethra, normal epididymis, normal vas deferens/spermatic cord. Flank Pain: none. Bladder: nonpalpable. Assessment/Plan 1. Kidney stones (N20.0: Calculus of kidney) KUB 09/12/21 - Several stones LIP, largest 8 mm. KUB 09/09/22 - Stones [facility]. Metabolic workup 09/27/21 - Low volume and mildly elevated urine sodium. KUB 12/31/22 - LLP nephrolithiasis up to 7 mm. Personal review: 2 stones located at the bottom of the left kidney, largest up to 7 mm other likely 3 mm. S/p L ESWL 01/14/23. Metabolic workup 02/04/23 - Volume 1,425 cc L. KUB 07/15/23 TBH - A few small LIP stones. No R sided stones. Taking Allopurinol 300 mg qd, HCTZ 25 mg qd, and Sodium Bicarbonate 1,950 mg bid. Cont all wo changes. Reviewed KUB and metabolic workup. Recommended pt to increase fluid intake to ten to twelve 16 oz bottles a day, preferably water, clear pop, and sugar free lemonade. Follow up 1 yr with KUB or sooner if needed. Pt understands and agrees with plan. -Increase fluid intake. 2. Elevated PSA (R97.20: Elevated prostate specific antigen [PSA]) PSA: 09/11/20 - 2.20 & 36.4% 09/11/21 - 4.07 09/09/22 - 4.48 12/31/22 - 4.15 MRI of prostate 10/09/21 negative. Pt states he will be getting PSA through PCP soon and will forward results to the office. 3. BPH with urinary obstruction (N40.1: Benign prostatic hyperplasia with lower urinary tract symptoms) UA today negative for blood and infection. Taking Flomax 0.4 mg QD. IPSS 6 (4). Occasional post void dribbling. 4. Family history of prostate cancer in father (Z80.42: Family history of malignant neoplasm of prostate) Follow-up With When Contact Information NINA LEVY, Jude Crespo, URL [facility] [address] , [place] [address]- Additional Instructions: 1 yr KUB Patient Education Dietary Guidelines to Help Prevent Kidney Stones I, Kenzie Fierro, personally scribed for Dr. Beach on 07/21/2023 14:08:30. . Documentation recorded by the scribe, Kenzie Fierro, accurately reflects the services(s) I performed and decisions made by me. Authenticated by Dr. Beach on 07/21/2023 14:12:46. Problem List/Past Medical History Ongoing BPH with urinary obstruction Deep vein thrombosis (DVT) of left lower extremity Diabetes Elevated PSA Family history of prostate cancer in father Hyperlipidemia Hypertension Kidney stones Nocturia Personal history of kidney stones Proteinuria Historical No qualifying data Procedure/Surgical History ESWL - Extracorporeal shockwave lithotripsy for renal calculus (01/14/2023), Cystoscopy (04/30/2015), Percutaneous nephrolithotomy (02/21/2014), Percutaneous nephrolithotomy (01/23/2014), Dormia basket extraction of ureteric calculus (12/27/2013), Dormia basket extraction of ureteric calculus (11/23/2013), Cystoscopic insertio (more content not included)... Normal [facility] Comment on above: Result Comment: Elec tronically Signed By: NINA LEVY, Jude Crespo\.br\Date and Time Signed: 07/21/23 14:12 EDT\.br\Electronically Co-Signed By: Kenzie Fierro\.br\Date and Time Co-Signed: 07/21/23 14:08 EDT\.br\Electronically Co-Signed By: Kenzie Fierro\.br\Date and Time Co-Signed: 07/21/23 14:10 EDT RAD - MISCon 07-20-2023 RAD - MISC [id number] :127 Normal [facility] Lab Reportson 02-15-2023 Lab Reports [id number] D:127 Normal [facility] CITRATE URINE 24HRon 023 Citric Acid, U, 24hr 1042 mg/24 hr Normal 320-1240 [facility] Comment on above: Result Comment: This test was developed and its performance characteristics determined by [facility]. It has not been cleared or approved by the Food and Drug Administration. Performed By: #### C BC #### [facility] [address] [place] [address] Dr. Cleveland Snowden Citric Acid, Urine 731 mg/L Normal Undefined [facility] Comment on above: Performed By: #### C BC #### [facility] [address] [place] [address] [address] Cleveland Snowden OXALATE 24HR URINEon 023 Oxalates, Urine 19 mg/L Normal Undefined [facility] Comment on above: Performed By: #### C BC #### [facility] [address] [place] [address] Dr. Cleveland Snowden Oxalates, Urine 24hr 27 mg/24 hr Normal 7-44 [facility] Comment on above: Performed By: #### C BC #### [facility] [address] [place] [address] Dr. Cleveland Snowden MAGNESIUM 24HR URINEon 02-05 Magnesium 24hr Urine 82.7 mg/24 hr Normal 12.0-293.0 [facility] Comment on above: Performed By: #### C BC #### [facility] [address] [place] [address] Dr. Cleveland Snowden Magnesium UR 5.8 mg/dL Normal Not Estab. [facility] Comment on above: Performed By: #### C BC #### [facility] [address] [place] [address] Dr. Cleveland Snowden PHOSPHORUS 24HR URINEon Phosphorus, Urine 59.7 mg/dL Normal Not Estab. [facility] Comment on above: Performed By: #### P T, PTT #### [facility] [address] [place] [address] Dr. Cleveland Snowden Phosphorus, Urine 24hr 851 mg/24 hr Normal 390-1425 [facility] Comment on above: Performed By: #### P T, PTT #### [facility] [address] [place] [address] Dr. Cleveland Snowden PTH INTACTon 02-05-2023 PTH, Intact 18 pg/mL Normal 15-65 [facility] Comment on above: Performed By: #### P THINT #### [facility] [address] [place] [address] Dr. Cleveland Snowden URIC ACID 24 HR URINEon Uric Acid, Urine 36.4 mg/dL Normal Not Estab. [facility] Comment on above: Performed By: #### P T, PTT #### [facility] [address] [place] [address] Dr. Cleveland Snowden Uric Acid, Urine 24hr 518.7 mg/24 hr Normal 136.1-771.1 [facility] Comment on above: Performed By: #### P T, PTT #### [facility] [address] [place] [address] Dr. Cleveland Snowden BUNon 02-04-2023 Urea nitrogen [Mass/Vol] 22.0 mg/dL Critically high 7.0-18.0 [facility] Comment on above: Performed By: #### C BC #### [facility] [address] [place] [address] Dr. Cleveland Snowden CALCIUMon 02-04-2023 Calcium [Mass/Vol] 9.7 mg/dL Normal 8.5-10.1 [facility] Comment on above: Performed By: #### C BC #### [facility] [address] [place] [address] Dr. Cleveland Snowden CALCIUM 24 HR URINEon 2022 CALC, 24 HR UR 84.1 mg/24 hr Critically low 100.0-300.0 [facility] Comment on above: Performed By: #### C [id number] #### [facility] [address] [place] [address] Dr. Cleveland Snowden UR CALCIUM 5.9 mg/dL Normal 5.1-21.0 [facility] Comment on above: Performed By: #### C [id number] #### [facility] [address] [place] [address] Dr. Cleveland Snowden UR TOT VOL 1425 ml/24 HR Normal [facility] Comment on above: Performed By: #### C [id number] #### [facility] [address] [place] [address] Dr. Cleveland Snowden Performed By: #### C REA24U, NA24U #### [facility] [address] [place] [address] Dr. Cleveland Snowden Performed By: #### P T, PTT #### [facility] [address] [place] [address] Dr. Cleveland Snowden CHLORIDEon 02-04-2023 Chloride [Moles/Vol] 107 mmol/L Normal 98-107 [facility] Comment on above: Performed By: #### C BC #### [facility] [address] [place] [address] Dr. Cleveland Snowden CO2on 02-04-2023 CO2 [Moles/Vol] 33.7 mmol/L Critically high 21.0-32.0 [facility] Comment on above: Performed By: #### A 1C #### [facility] [address] [place] [address] Dr. Cleveland Snowden CREA 24 HR URINEon 3 CREA, 24 HR UR 1115.21 mg/24 hr Normal 1,000.00- 2,00 0.00 [facility] Comment on above: Performed By: #### P T, PTT #### [facility] [address] [place] [address] Dr. Cleveland Snowden URINE CREAT 78.26 mg/dL Normal 20.00-300.00 [facility] Comment on above: Performed By: #### P T, PTT #### [facility] [address] [place] [address] Dr. Cleveland Snowden CREATININEon 02-04-2023 Creatinine [Mass/Vol] 0.91 mg/dL Normal 0.70-1.30 [facility] Comment on above: Performed By: #### A 1C #### [facility] [address] [place] [address] Dr. Cleveland Snowden EGFR-AF PANAMANIAN >60 Normal >=60 [facility] Comment on above: Performed By: #### A 1C #### [facility] [address] [place] [address] Dr. Cleveland Snowden EGFR-NON AF PANAMANIAN >60 Normal >=60 [facility] Comment on above: Performed By: #### A 1C #### [facility] [address] [place] [address] Dr. Cleveland Snowden NAon 02-04-2023 Sodium [Moles/Vol] 144 mmol/L Normal 136-145 [facility] Comment on above: Performed By: #### C BC #### [facility] [address] [place] [address] Dr. Cleveland Snowden POTASSIUMon 02-04-2023 Potassium [Moles/Vol] 4.1 mmol/L Normal 3.5-5.1 [facility] Comment on above: Performed By: #### A 1C #### [facility] [address] [place] [address] Dr. Cleveland Snowden SODIUM 24 HR URINEon 023 NA, 24 HR UR 221 mmol/24 hr Critically high 40-220 [facility] Comment on above: Performed By: #### C REA24U, NA24U #### [facility] [address] [place] [address] Dr. Cleveland Snowden Sodium (U) [Moles/Vol] 155 mmol/L Critically high 30-90 [facility] Comment on above: Performed By: #### C REA24U, NA24U #### [facility] [address] [place] [address] Dr. Cleveland Snowden URIC ACID SERUMon 02-04-2023 Urate [Mass/Vol] 4.3 mg/dL Normal 3.5-7.2 [facility] Comment on above: Performed By: #### C BC #### [facility] [address] [place] [address] Dr. Cleveland Snowden Physician Orderon 02-02-2023 Physician Order [id number] D:127 Normal [facility] Lab Reportson 01-26-2023 Lab Reports [id number] D:127 Normal [facility] RAD - MISCon 01-26-2023 RAD - MISC [id number] D:127 Normal [facility] Operative Reporton Operative Report [id number] D:127 Normal [facility] POINT OF CARE GLUCOSEon 12-30 Glucose [Mass/Vol] 237 mg/dL Critically high 74-106 T [facility] Comment on above: Performed By: #### P T, PTT #### [facility] [address] [place] [address] Dr. Cleveland Snowden XR KUB 1 VIEWon 01-14-2023 XR KUB 1 VIEW EXAM: Abdomen: HISTORY: Follow-up kidney stones. Left ESWL. COMPARISON STUDY: 12/31/2022 TECHNIQUE: A frontal view of the abdomen and pelvis was obtained. FINDINGS: Calcifications overlying the left lower pole kidney are unchanged in appearance. Pelvic phleboliths are stable. No calcifications are seen on the right. The bowel gas pattern is normal. There is no free air. Osseous structures are stable in appearance. IMPRESSION: Stable left nephrolithiasis. Electronically authenticated by: ISAK CORTEZ Date: 2023-01-14 08:37 Normal [facility] RAD - MISCon 01-11-2023 RAD - MISC [id number] D:127 Normal [facility] CBC AUTO DIFFon 01-08-2023 BASO # 0.0 103/ul Normal 0.0-0.1 [facility] Comment on above: Performed By: #### C BC #### [facility] [address] [place] [address] Dr. Cleveland Snowden Basophils/100 WBC (Bld) 0.4 % Normal 0.2-2.0 [facility] Comment on above: Performed By: #### C BC #### [facility] [address] [place] [address] Dr. Cleveland Snowden EO # 0.2 103/ul Normal 0.0-0.7 [facility] Comment on above: Performed By: #### C BC #### [facility] [address] [place] [address] Dr. Cleveland Snowden Eosinophils/100 WBC (Bld) 4.4 % Normal 0.9-7.0 [facility] Comment on above: Performed By: #### C BC #### [facility] [address] [place] [address] Dr. Cleveland Snowden Erythrocyte distribution width (RBC) [Ratio] 14.8 % Normal 11.0-15.0 [facility] Comment on above: Performed By: #### C BC #### [facility] [address] [place] [address] Dr. Cleveland Snowden Hematocrit (Bld) [Volume fraction] 35.7 % Critically low 42.0-54.0 [facility] Comment on above: Performed By: #### C BC #### [facility] [address] [place] [address] Dr. Cleveland Snowden Hemoglobin (Bld) [Mass/Vol] 12.0 g/dL Critically low 14.0-18.0 [facility] Comment on above: Performed By: #### C BC #### [facility] [address] [place] [address] Dr. Cleveland Snowden IG # 0.03 10e3/ul Normal 0.00-0.03 [facility] Comment on above: Performed By: #### C BC #### [facility] [address] [place] [address] Dr. Cleveland Snowden IG % 0.6 % Critically high 0.0-0.5 [facility] Comment on above: Performed By: #### C BC #### [facility] [address] [place] [address] Dr. Cleveland Snowden LYMPH # 0.7 103/ul Critically low 1.2-3.8 [facility] Comment on above: Performed By: #### C BC #### [facility] [address] [place] [address] Dr. Cleveland Snowden Lymphocytes/100 WBC (Bld) 14.4 % Critically low 20.5-60.0 [facility] Comment on above: Performed By: #### C BC #### [facility] [address] [place] [address] Dr. Cleveland Snowden MANUAL DIFF REQ NO Normal [facility] Comment on above: Performed By: #### C BC #### [facility] [address] [place] [address] Dr. Cleveland Snowden MCH (RBC) [Entitic mass] 31.1 pg Normal 25.9-34.0 [facility] Comment on above: Performed By: #### C BC #### [facility] [address] [place] [address] Dr. Cleveland Snowden MCHC (RBC) [Mass/Vol] 33.6 g/dL Normal 29.9-35.2 [facility] Comment on above: Performed By: #### C BC #### [facility] [address] [place] [address] Dr. Cleveland Snowden MCV (RBC) [Entitic vol] 92.5 fL Normal 80.0-94.0 [facility] Comment on above: Performed By: #### C BC #### [facility] [address] [place] [address] Dr. Cleveland Snowden MONO # 0.5 103/ul Normal 0.3-0.8 [facility] Comment on above: Performed By: #### C BC #### [facility] [address] [place] [address] Dr. Cleveland Snowden Monocytes/100 WBC (Bld) 11.0 % Normal 1.7-12.0 [facility] Comment on above: Performed By: #### C BC #### [facility] [address] [place] [address] Dr. Cleveland Snowden NEUT # 3.3 103/ul Normal 1.4-6.5 [facility] Comment on above: Performed By: #### C BC #### [facility] [address] [place] [address] Dr. Cleveland Snowden Neutrophils/100 WBC (Bld) 69.2 % Normal 43.0-75.0 [facility] Comment on above: Performed By: #### C BC #### [facility] [address] [place] [address] Dr. Cleveland Snowden Platelet mean volume (Bld) [Entitic vol] 10.0 fL Normal 9.5-13.5 [facility] Comment on above: Performed By: #### C BC #### [facility] [address] [place] [address] Dr. Cleveland Snowden PLT 105 103/ul Critically low 150-450 [facility] Comment on above: Performed By: #### C BC #### [facility] [address] [place] [address] Dr. Cleveland Snowden RBC 3.86 106/ul Critically low 4.70-6.10 [facility] Comment on above: Performed By: #### C BC #### [facility] [address] [place] [address] Dr. Cleveland Snowden WBC 4.8 103/ul Normal 4.0-11.0 [facility] Comment on above: Performed By: #### C BC #### [facility] [address] [place] [address] Dr. Cleveland Snowden PROF CHEM 8 (BAS METB)on Anion gap [Moles/Vol] 12.7 mmol/L Normal [facility] Comment on above: Performed By: #### C BC #### [facility] [address] [place] [address] Dr. Cleveland Snowden Calcium [Mass/Vol] 9.6 mg/dL Normal 8.5-10.1 [facility] Comment on above: Performed By: #### C BC #### [facility] [address] [place] [address] Dr. Cleveland Snowden Chloride [Moles/Vol] 107 mmol/L Normal 98-107 [facility] Comment on above: Performed By: #### C BC #### [facility] [address] [place] [address] Dr. Cleveland Snowden CO2 [Moles/Vol] 29.0 mmol/L Normal 21.0-32.0 [facility] Comment on above: Performed By: #### C BC #### [facility] [address] [place] [address] Dr. Cleveland Snowden Creatinine [Mass/Vol] 0.76 mg/dL Normal 0.70-1.30 [facility] Comment on above: Performed By: #### C BC #### [facility] [address] [place] [address] Dr. Cleveland Snowden EGFR-AF PANAMANIAN >60 Normal >=60 [facility] Comment on above: Performed By: #### C BC #### [facility] [address] [address] [address] Cleveland Snowden EGFR-NON AF PANAMANIAN >60 Normal >=60 [facility] Comment on above: Performed By: #### C BC #### [facility] [address] [address] [address] Cleveland Snowden Glucose [Mass/Vol] 127 mg/dL Critically high 74-106 [facility] Comment on above: Performed By: #### C BC #### [facility] [address] [address] [address] Cleveland Snowden Potassium [Moles/Vol] 3.7 mmol/L Normal 3.5-5.1 [facility] Comment on above: Performed By: #### C BC #### [facility] [address] [address] [address] Cleveland Snowden Sodium [Moles/Vol] 145 mmol/L Normal 136-145 [facility] Comment on above: Performed By: #### C BC #### [facility] [address] [address] [address] Cleveland Snowden Urea nitrogen [Mass/Vol] 21.0 mg/dL Critically high 7.0-18.0 [facility] Comment on above: Performed By: #### C BC #### [facility] [address] [address] [address] Cleveland Snowden Urea nitrogen/Creatinine [Mass ratio] 27.6 mg/mg Normal [facility] Comment on above: Performed By: #### C BC #### [facility] [address] [address] [address] Cleveland Snowden PROTIMEon 01-08-2023 INR Coag (PPP) [Relative time] 1.04 {INR} Normal [facility] Comment on above: Performed By: #### P T, PTT #### [facility] [address] [address] [address] Cleveland Snowden INR GUIDELINES SEE BELOW Normal [facility] Comment on above: Result Comment: ASHTYN RED INR: 2.0 - 3.0 CONDITIONS NOT LISTED BELOW 2.5 - 3.5 FOR PROSTHETIC HEART VALVE REPLACEMENT 2.5 - 3.5 RECURRENT THROMBOSIS Performed By: #### P T, PTT #### [facility] [address] [place] [address] Dr. Cleveland Snowden PT Coag (PPP) [Time] 11.0 s Normal 9.0-11.6 [facility] Comment on above: Performed By: #### P T, PTT #### [facility] [address] [address] [address] Cleveland Snowden PTTon 01-08-2023 aPTT Coag (Bld) [Time] 29.6 s Normal 22.3-36.2 [facility] Comment on above: Performed By: #### P T, PTT #### [facility] [address] [place] [address] Dr. Cleveland Snowden Ambulatory Visit Summaryon 0 01-05-2023 Ambulatory Visit Summary MANUEL BALDERAS :1950 Visit Date:01/05/2023 Ambulatory Visit Instructions Your Diagnosis Renal stone Elevated PSA BPH with urinary obstruction Family history of prostate cancer Proteinuria Tests Performed Urnls Dip Stick Auto w/o Microscopy POC 10213 Your Care Team Attending Physician - NINA LEVY, Jude Crespo Primary Care Physician - JELENA LEVY, KHOA Yanes This Is Your Medications List allopurinol (allopurinol 300 mg Tab) hydrochlorothiazide (hydrochlorothiazide 25 mg Tab) sodium bicarbonate (sodium bicarbonate 650 mg Tab) tamsulosin (tamsulosin 0.4 mg Cap) Contact prescribing physician if questions or concerns aspirin (aspirin 81 mg oral tablet) doxycycline (doxycycline hyclate 100 mg Cap) gemfibrozil (gemfibrozil 600 mg Tab) glipiZIDE (glipiZIDE 10 mg ER Tab) metoprolol (Metoprolol tartrate 50 mg Tab) Procedures Performed Cystoscopy (04/30/2015), Percutaneous nephrolithotomy (02/21/2014), Percutaneous nephrolithotomy (01/23/2014), Dormia basket extraction of ureteric calculus (12/27/2013), Dormia basket extraction of ureteric calculus (11/23/2013), Cystoscopic insertion of ureteric stent (10/26/2013), Cystoscopic removal of ureteric stent (07/01/2004), Dormia basket extraction of ureteric calculus (06/24/2004), Ankle, Back, Colonoscopy, History of hernia repair, Rotator cuff. Discharge Vitals Heart Rate (Peripheral) 58 Blood Pressure 152/93 Height 185 cm Height 73 in Weight 136 kg Weight 299.2 lb BMI 39.74 What to do next You Need to Schedule the Following Appointments Follow Up with NINA LEVY, MELANIE Sims When: Where: [facility] [address], [place] [address]- Medications What How Much When Instructions Unchanged allopurinol (allopurinol 300 mg Tab) 1 Tablets By Mouth Every day Unchanged hydrochlorothiazide (hydrochlorothiazide 25 mg Tab) 1 Tablets By Mouth Every day Duration: 90 Days Unchanged sodium bicarbonate (sodium bicarbonate 650 mg Tab) 3 Tablets By Mouth 2 times a day Unchanged tamsulosin (tamsulosin 0.4 mg Cap) 1 Capsules By Mouth Every day Unchanged aspirin (aspirin 81 mg oral tablet) By Mouth Every day Contact prescribing physician if questions or concerns Unchanged doxycycline (doxycycline hyclate 100 mg Cap) By Mouth 2 times a day Contact prescribing physician if questions or concerns Unchanged gemfibrozil (gemfibrozil 600 mg Tab) By Mouth 2 times a day Contact prescribing physician if questions or concerns Unchanged glipiZIDE (glipiZIDE 10 mg ER Tab) By Mouth Every day Contact prescribing physician if questions or concerns Unchanged metoprolol (Metoprolol tartrate 50 mg Tab) By Mouth 2 times a day Contact prescribing physician if questions or concerns Test Results Urnls Dip Stick Auto w/o Microscopy POC 35965 (01/05/2023) Bilirubin Urine Dipstick - Negative Blood Urine Dipstick - Trace-intact Glucose Urine Dipstick - Trace 100 mg/dl Ketones Urine Dipstick - Negative Leukocytes Urine Dipstick - Negative Nitrite Urine Dipstick - Negative Protein Urine Dipstick - 3+ (300 mg/dl) Specific [place] Urine Dipstick - >=1.030 Urine Appearance Urine Dipstick - Clear Urine Color Urine Dipstick - Yellow Urobilinogen Urine Dipstick - Normal 0.2-1 EU/dl pH Urine Dipstick - 6.5 Allergies Demerol (Shakes) Meperidine HCl-Promethazine HCl (Unknown) Problems Ongoing - Any problem that you are currently receiving treatment for. BPH with urinary obstruction Deep vein thrombosis (DVT) of left lower extremity Diabetes Elevated PSA Family history of prostate cancer Hyperlipidemia Hypertension Nocturia Personal history of kidney stones Proteinuria Renal stone Education Materials Dietary Guidelines to Help Prevent Kidney Stones Kidney stones are deposits of minerals and salts that form inside your kidneys. Your risk of developing kidney stones may be greater depending on your diet, your lifestyle, the medicines you take, and whether you have certain medical conditions. Most people can reduce their chances of developing kidney stones by following the instructions below. Depending on your overall health and the type of kidney stones you tend to develop, your dietitian may give you more specific instructions. What are tips for following this plan? Reading food labels ? Choose foods with no salt added or low-salt labels. Limit your sodium intake to less than 1500 mg per day. ? Choose foods with calcium for each meal and snack. Try to eat about 300 mg of calcium at each meal. Foods that contain 200?500 mg of calcium per serving include: ? 8 oz (237 ml) of milk, fortified nondairy milk, and fortified fruit juice. ? 8 oz (237 ml) of kefir, yogurt, and soy yogurt. ? 4 oz (118 ml) of tofu. ? 1 oz of cheese. ? 1 cup (300 g) of dried figs. ? 1 cup (91 g) of cooked broccoli. ? 1?3 oz can of sardines or mackerel. ? Most people need 10 (more content not included)... Normal [facility] Consent for Procedure/Surger yon 01-05-2023 Consent for Procedure/Surgery [id number] D:127 Normal [facility] Patient Educationon 01-06-20 23 Patient Education Urology Dietary Guidelines to Help Prevent Kidney Stones Kidney stones are deposits of minerals and salts that form inside your kidneys. Your risk of developing kidney stones may be greater depending on your diet, your lifestyle, the medicines you take, and whether you have certain medical conditions. Most people can reduce their chances of developing kidney stones by following the instructions below. Depending on your overall health and the type of kidney stones you tend to develop, your dietitian may give you more specific instructions. What are tips for following this plan? Reading food labels ? Choose foods with no salt added or low-salt labels. Limit your sodium intake to less than 1500 mg per day. ? Choose foods with calcium for each meal and snack. Try to eat about 300 mg of calcium at each meal. Foods that contain 200?500 mg of calcium per serving include: ? 8 oz (237 ml) of milk, fortified nondairy milk, and fortified fruit juice. ? 8 oz (237 ml) of kefir, yogurt, and soy yogurt. ? 4 oz (118 ml) of tofu. ? 1 oz of cheese. ? 1 cup (300 g) of dried figs. ? 1 cup (91 g) of cooked broccoli. ? 1?3 oz can of sardines or mackerel. ? Most people need 1000 to 1500 mg of calcium each day. Talk to your dietitian about how much calcium is recommended for you. Shopping ? Buy plenty of fresh fruits and vegetables. Most people do not need to avoid fruits and vegetables, even if they contain nutrients that may contribute to kidney stones. ? When shopping for convenience foods, choose: ? Whole pieces of fruit. ? Premade salads with dressing on the side. ? Low-fat fruit and yogurt smoothies. ? Avoid buying frozen meals or prepared deli foods. ? Look for foods with live cultures, such as yogurt and kefir. Cooking ? Do not add salt to food when cooking. Place a salt shaker on the table and allow each person to add his or her own salt to taste. ? Use vegetable protein, such as beans, textured vegetable protein (TVP), or tofu instead of meat in pasta, casseroles, and soups. Meal planning ? Eat less salt, if told by your dietitian. To do this: ? Avoid eating processed or premade food. ? Avoid eating fast food. ? Eat less animal protein, including cheese, meat, poultry, or fish, if told by your dietitian. To do this: ? Limit the number of times you have meat, poultry, fish, or cheese each week. Eat a diet free of meat at least 2 days a week. ? Eat only one serving each day of meat, poultry, fish, or seafood. ? When you prepare animal protein, cut pieces into small portion sizes. For most meat and fish, one serving is about the size of one deck of cards. ? Eat at least 5 servings of fresh fruits and vegetables each day. To do this: ? Keep fruits and vegetables on hand for snacks. ? Eat 1 piece of fruit or a handful of berries with breakfast. ? Have a salad and fruit at lunch. ? Have two kinds of vegetables at dinner. ? Limit foods that are high in a substance called oxalate. These include: ? Spinach. ? Rhubarb. ? Beets. ? Potato chips and croatian fries. ? Nuts. ? If you regularly take a diuretic medicine, make sure to eat at least 1?2 fruits or vegetables high in potassium each day. These include: ? Avocado. ? Banana. ? [place], prune, carrot, or tomato juice. ? Baked potato. ? Cabbage. ? Beans and split peas. General instructions ? Drink enough fluid to keep your urine clear or pale yellow. This is the most important thing you can do. ? Talk to your health care provider and dietitian about taking daily supplements. Depending on your health and the cause of your kidney stones, you may be advised: ? Not to take supplements with vitamin C. ? To take a calcium supplement. ? To take a daily probiotic supplement. ? To take other supplements such as magnesium, fish oil, or vitamin B6. ? Take all medicines and supplements as told by your health care provider. ? Limit alcohol intake to no more than 1 drink a day for non women and 2 drinks a day for men. One drink equals 12 oz of beer, 5 oz of wine, or 1? oz of hard liquor. ? Lose weight if told by your health care provider. Work with your dietitian to find strategies and an eating plan that works best for you. What foods are not recommended? Limit your intake of the following foods, or as told by your dietitian. Talk to your dietitian about specific foods you should avoid based on the type of kidney stones and your overall health. Grains Breads. Bagels. Rolls. Baked goods. Salted crackers. Cereal. Pasta. Vegetables Spinach. Rhubarb. Beets. Canned vegetables. Pickles. Olives. Meats and other protein foods Nuts. Nut butters. Large portions of meat, poultry, or fish. Salted or cured meats. Deli meats. Hot dogs. Sausages. Dairy Cheese. Beverages Regular soft drinks. Regular vegetable juice. Seasonings and other foods Seasoning blends with salt. Salad dr (more content not included)... Normal [facility] Screenson 01-05-2023 Screens [id number] D:127 Normal [facility] Urology Office/Clinic Noteon 01-05-2023 Urology Office/Clinic Note Chief Complaint pt is here for a f/u to a PSA and KUB HPI Staff Pt is a 72 yr old Male here for a f/u to a PSA and KUB. Pts previous PSA 4.48 done 09/09/22, Pts current PSA 4.15 done 12/31/22. KUB done 12/31/22 shows left nephrolithiasis. Pts previous DX: BPH with urinary obstruction, elevated PSA, family history of prostate cancer, gross hematuria, nocturia, personal history of kidney stones, proteinuria, renal stone. Pts currently taking Flomax 0.4m QD. S/P cysto 04/30/15 Dysuria: denies Incomplete bladder emptying: denies Hematuria: no visible, UA shows trace-intact Frequency: denies Urgency: sometimes Nocturia: 1-2 times Stream: strong stream, no start stop Leaking: some Post void dripping: denies Wearing pads/ Depends: depends, changes twice a day Urge incontinence: some Stress incontinence: some Incontinence without Sensory Awareness: denies Abdominal pain: denies Flank pain: not since mid september Sexual complaints: denies History of Present Illness Tests reviewed: reviewed UA, PSA, KUB. I have reviewed the previous health record information and history for this patient from Dr. Beach. I have reviewed and verified the staff HPI to be accurate for this encounter. There have been no associated fever, chills, flank pain, or blood in the urine. Denies any urinary infections since last encounter. Review of Systems PHQ Score Initial Depression Screen Score: 0 ROS - Provider Constitutional: denies weight loss, denies hot flashes. Eyes: denies eye problems. Gastrointestinal: denies nausea, denies vomiting. Cardiovascular: denies chest pain or angina. Integumentary: no dryness Musculoskeletal: denies musculoskeletal symptoms. ENMT: denies otolaryngeal symptoms. Respiratory: no shortness of breath. Heme/Lymph: denies easy bleeding tendency, denies easy bruising tendency. Psychiatric: no confusion, no anxiety. Genitourinary: See HPI. Physical Exam Vitals & Measurements HR: 58(Peripheral) BP: 152/93 HT: 73 in HT: 185 cm WT: 136 kg WT: 299.2 lb BMI: 39.74 General Appearance: alert, no distress, well nourished, well developed male. Genitourinary: normal scrotum, normal testes, normal urethra, normal epididymis, normal vas deferens/spermatic cord. Flank Pain: none. Bladder: nonpalpable. Assessment/Plan 1. Renal stone (N20.0: Calculus of kidney) KUB done 09/12/2021 shows left kidney stones several in the inferior pole of left kidney, largest 8 mm. KUB done 09/09/22 shows calcifications projecting over the lower pole left kidney. Metabolic work up done on 09/27/21 showed low volume and mildly elevated urine sodium. KUB done 12/31/22 shows left lower pole nephrolithiasis measuring up to 7 mm. Personal review: 2 stones located at the bottom of the left kidney, largest up to 7 mm other likely 3 mm. Pt taking Allopurinol 300 mg QD, HCTZ 25 mg QD, and Sodium Bicarb 650 mg 3 tabs BID therapies. Had a couple weeks of right-sided flank pain end of 2021, has not had since. Explained findings from KUB, stones present on left, no stones on right, possibly passed stone during right-sided flank pain episode. Discussed repeat met workup due to the recurrence of stones while on stone prevention medications. Hx of nephrostomy tube for stones at [facility] in 2013. -Will schedule Left ESWL. The procedure risks, benefits, details and treatment alternatives have been discussed with the patient. These include blood in the urine, infection, bleeding around the kidney, kidney bruising, inability to break up the stone, need for blood transfusion, blockage from stone fragments, and need for additional procedures, among others. Full informed consent has been obtained. Will order General anesthesia. Follow up 3 mos or sooner if needed. Pt understands and agrees with plan. -repeat met workup -cont meds above -cont dietary modifications 2. Elevated PSA (R97.20: Elevated prostate specific antigen [PSA]) PSA: 09/11/20 - 2.20 & 36.4% 09/11/21 - 4.07 09/09/22 - 4.48 12/31/22 - 4.15 MRI of the prostate done 10/09/21 was negative. PSA decreased from prior, will continue to monitor. 3. BPH with urinary obstruction (N40.1: Benign prostatic hyperplasia with lower urinary tract symptoms) UA today negative for blood and infection. IPSS 4. Pt taking Tamsulosin 0.4 mg QD. Only has leakage when he waits to long. Voids comfortably. Nocturia 2-3x/night. 4. Family history of prostate cancer (Z80.42: Family history of malignant neoplasm of prostate) Father and Uncle. 5. Proteinuria (R80.9: Proteinuria, unspecified) UA today shows >=300 protein (>=300). -BP and diabetes control Follow-up With When Contact Information Jude BEACH MD, [facility] [address], [place] [address]- Additional Instructions: schedule L ESWL, 3 mos with met w/up Patient Education Dietary Guidelines to Help Prevent Kidney Stones I, Kenzie Fierro, personally scribed for Dr. Beach on 01/05/2023 11:39:27. Electronically (more content not included)... Normal [facility] Comment on above: Result Comment: Elec tronically Signed By: Jude BEACH MD\.br\Date and Time Signed: 01/05/23 11:41 EST\.br\Electronically Co-Signed By: Kenzie Fierro\.br\Date and Time Co-Signed: 01/05/23 11:39 EST [facility] 01-03-2023 Lab Reports [id number] CD:127 Normal [facility] XR KUB 1 VIEWon 01-01-2023 XR KUB 1 VIEW EXAMINATION: XR KUB 1 VIEW HISTORY: Kidney stone COMPARISON: 09/09/2022 FINDINGS: KIDNEY/URETER - RIGHT: No visible renal or ureteral calcifications. KIDNEY/URETER - LEFT: Lower pole nephrolithiasis measuring up to 7 mm PELVIS: No visible ureteral calcifications. Any visible calcifications favor phleboliths. BOWEL: No abnormal dilation or deviation. BONES: No acute abnormality. Moderate degenerative changes. Spinous process fusion L3-L4. Posterior decompression L5 OTHER: Negative. No abnormal gaseous collections. IMPRESSION: Left nephrolithiasis Electronically authenticated by: TALI ISRAEL Date: 2023-01-01 16:46 Normal [facility] GLYCOHEMOGLOBIN A1Con 2022 ADA RECOMMENDATION SEE BELOW Normal [facility] Comment on above: Result Comment: ADA RECOMMENDED LIMIT 4.0 - 6.0 ADA THERAPEUTIC TARGET < 7.0 ACTION SUGGESTED > 7.0 Performed By: #### A 1C #### [facility] [address] [address] [address] Cleveland Snowden Glucose [Mass/Vol] 126 mg/dL Normal [facility] Comment on above: Performed By: #### A 1C #### [facility] [address] [address] [address] Cleveland Snowden HbA1c (Bld) [Mass fraction] 6.0 % Normal 4.5-6.2 [facility] Comment on above: Performed By: #### A 1C #### [facility] [address] [address] [address] Cleveland Snowden Patient Educationon 09-21-20 Patient Education Urology Benign Prostatic Hyperplasia Benign prostatic hyperplasia (BPH) is an enlarged prostate gland that is caused by the normal aging process and not by cancer. The prostate is a walnut-sized gland that is involved in the production of semen. It is located in front of the rectum and below the bladder. The bladder stores urine and the urethra is the tube that carries the urine out of the body. The prostate may get bigger as a man gets older. An enlarged prostate can press on the urethra. This can make it harder to pass urine. The build-up of urine in the bladder can cause infection. Back pressure and infection may progress to bladder damage and kidney (renal) failure. What are the causes? This condition is part of a normal aging process. However, not all men develop problems from this condition. If the prostate enlarges away from the urethra, urine flow will not be blocked. If it enlarges toward the urethra and compresses it, there will be problems passing urine. What increases the risk? This condition is more likely to develop in men over the age of 50 years. What are the signs or symptoms? Symptoms of this condition include: ? Getting up often during the night to urinate. ? Needing to urinate frequently during the day. ? Difficulty starting urine flow. ? Decrease in size and strength of your urine stream. ? Leaking (dribbling) after urinating. ? Inability to pass urine. This needs immediate treatment. ? Inability to completely empty your bladder. ? Pain when you pass urine. This is more common if there is also an infection. ? Urinary tract infection (UTI). How is this diagnosed? This condition is diagnosed based on your medical history, a physical exam, and your symptoms. Tests will also be done, such as: ? A post-void bladder scan. This measures any amount of urine that may remain in your bladder after you finish urinating. ? A digital rectal exam. In a rectal exam, your health care provider checks your prostate by putting a lubricated, gloved finger into your rectum to feel the back of your prostate gland. This exam detects the size of your gland and any abnormal lumps or growths. ? An exam of your urine (urinalysis). ? A prostate specific antigen (PSA) screening. This is a blood test used to screen for prostate cancer. ? An ultrasound. This test uses sound waves to electronically produce a picture of your prostate gland. Your health care provider may refer you to a specialist in kidney and prostate diseases (urologist). How is this treated? Once symptoms begin, your health care provider will monitor your condition (active surveillance or watchful waiting). Treatment for this condition will depend on the severity of your condition. Treatment may include: ? Observation and yearly exams. This may be the only treatment needed if your condition and symptoms are mild. ? Medicines to relieve your symptoms, including: ? Medicines to shrink the prostate. ? Medicines to relax the muscle of the prostate. ? Surgery in severe cases. Surgery may include: ? Prostatectomy. In this procedure, the prostate tissue is removed completely through an open incision or with a laparoscope or robotics. ? Transurethral resection of the prostate (TURP). In this procedure, a tool is inserted through the opening at the tip of the penis (urethra). It is used to cut away tissue of the inner core of the prostate. The pieces are removed through the same opening of the penis. This removes the blockage. ? Transurethral incision (TUIP). In this procedure, small cuts are made in the prostate. This lessens the prostate's pressure on the urethra. ? Transurethral microwave thermotherapy (TUMT). This procedure uses microwaves to create heat. The heat destroys and removes a small amount of prostate tissue. ? Transurethral needle ablation (TUNA). This procedure uses radio frequencies to destroy and remove a small amount of prostate tissue. ? Interstitial laser coagulation (ILC). This procedure uses a laser to destroy and remove a small amount of prostate tissue. ? Transurethral electrovaporization (TUVP). This procedure uses electrodes to destroy and remove a small amount of prostate tissue. ? Prostatic urethral lift. This procedure inserts an implant to push the lobes of the prostate away from the urethra. Follow these instructions at home: ? Take [id number] and prescription medicines only as told by your health care provider. ? Monitor your symptoms for any changes. Contact your health care provider with any changes. ? Avoid drinking large amounts of liquid before going to bed or out in public. ? Avoid or reduce how much caffeine or alcohol you drink. ? Give yourself time when you urinate. ? Keep all follow-up visits as told by your health care provider. This is important. Contact a health care provider if: ? You have unexplained back pain. ? Your symptoms do not get better with treatment. ? You d (more content not included)... Normal [facility] Lab Reportson 09-14-2022 Lab Reports [id number] D:127 Normal [facility] RAD - MISCon 09-14-2022 RAD - MISC [id number] D:127 Normal [facility] XR KUB 1 VIEWon 09-09-2022 XR KUB 1 VIEW EXAMINATION: XR KUB 1 VIEW HISTORY: Lower urinary tract symptoms due to benign prostatic hypertrophy COMPARISON: No relevant comparison available. FINDINGS: BOWEL GAS PATTERN: No abnormal dilation or deviation. CALCIFICATIONS: Calcifications project over the lower pole left kidney OTHER: Moderate degenerative changes of the spine. Spinous process fusion L3-L4. Posterior decompression L5.. No abnormal gaseous collections. IMPRESSION: Nonobstructive bowel gas pattern Stable left nephrolithiasis Electronically authenticated by: TALI ISRAEL Date: 2022-09-09 15:01 Normal [facility] GLYCOHEMOGLOBIN A1Con 2021 ADA RECOMMENDATION SEE BELOW Normal [facility] Comment on above: Result Comment: ADA RECOMMENDED LIMIT 4.0 - 6.0 ADA THERAPEUTIC TARGET < 7.0 ACTION SUGGESTED > 7.0 Performed By: #### A 1C #### [facility] [address] [address] [address] Cleveland Snowden Glucose [Mass/Vol] 131 mg/dL Normal [facility] Comment on above: Performed By: #### A 1C #### [facility] [address] [place] [address] Dr. Cleveland Snowden HbA1c (Bld) [Mass fraction] 6.2 % Normal 4.5-6.2 [facility] Comment on above: Performed By: #### A 1C #### [facility] [address] [place] [address] Dr. Cleveland Snowden LIPID PROFILEon 08-06-2022 CHOL-HDL RATIO NORM SEE BELOW Normal [facility] Comment on above: Result Comment: 3.3 - 4.4 LOW RISK 4.4 - 7.1 AVERAGE RISK 7.1 - 11.0 MODERATE RISK >11.0 HIGH RISK Performed By: #### A 1C #### [facility] [address] [address] [address] Cleveland Snowden Cholesterol [Mass/Vol] 108 mg/dL Normal <=200 [facility] Comment on above: Performed By: #### A 1C #### [facility] [address] [address] [address] Cleveland Snowden Cholesterol in HDL [Mass/Vol] 36 mg/dL Critically low 40-60 [facility] Comment on above: Performed By: #### A 1C #### [facility] [address] [place] [address] Dr. Cleveland Snowden Cholesterol in LDL [Mass/Vol] 45.0 mg/dL Normal [facility] Comment on above: Performed By: #### A 1C #### [facility] [address] [address] [address] Cleveland Snowden Cholesterol.total/Ch olesterol in HDL [Mass ratio] 3.0 {ratio} Normal [facility] Comment on above: Performed By: #### A 1C #### [facility] [address] [address] [address] Cleveland Snowden HDL NORMAL > or = 60 mg/dl - LO W CARDIOVASCULAR RISK <40 mg/dl - HIGH CARDIOVASCULAR RISK Normal [facility] Comment on above: Performed By: #### A 1C #### [facility] [address] [address] [address] Cleveland Snowden LDL CALC NORMAL SEE BELOW Normal [facility] Comment on above: Result Comment: <100 mg/dl OPTIMAL 100 - 129 mg/dl NEAR OR ABOVE OPTIMAL 130 - 159 mg/dl BORDERLINE HIGH 160 - 189 mg/dl HIGH >190 mg/dl VERY HIGH Performed By: #### A 1C #### [facility] [address] [address] [address] Cleveland Snowden Triglyceride [Mass/Vol] 135 mg/dL Normal <=150 [facility] Comment on above: Performed By: #### A 1C #### [facility] [address] [address] [address] Cleveland Snowden VLDL CALC 27.0 mg/dL Normal [facility] Comment on above: Performed By: #### A 1C #### [facility] [address] [address] [address] Cleveland Snowden GLYCOHEMOGLOBIN A1Con 2021 ADA RECOMMENDATION SEE BELOW Normal [facility] Comment on above: Result Comment: ADA RECOMMENDED LIMIT 4.0 - 6.0 ADA THERAPEUTIC TARGET < 7.0 ACTION SUGGESTED > 7.0 Performed By: #### A 1C #### [facility] [address] [place] [address] Dr. Cleveland Snowden Glucose [Mass/Vol] 154 mg/dL Normal [facility] Comment on above: Performed By: #### A 1C #### [facility] [address] [address] [address] Cleveland Snowden HbA1c (Bld) [Mass fraction] 7.0 % Critically high 4.5-6.2 [facility] Comment on above: Performed By: #### A 1C #### [facility] [address] [address] [address] Cleveland Snowden LIPID PROFILEon 05-05-2022 CHOL-HDL RATIO NORM SEE BELOW Normal [facility] Comment on above: Result Comment: 3.3 - 4.4 LOW RISK 4.4 - 7.1 AVERAGE RISK 7.1 - 11.0 MODERATE RISK >11.0 HIGH RISK Performed By: #### P T, PTT #### [facility] [address] [address] [address] Cleveland Snowden Cholesterol [Mass/Vol] 104 mg/dL Normal <=200 [facility] Comment on above: Performed By: #### P T, PTT #### [facility] [address] [address] [address] Cleveland Snowden Cholesterol in HDL [Mass/Vol] 24 mg/dL Critically low 40-60 [facility] Comment on above: Performed By: #### P T, PTT #### [facility] [address] [address] [address] Cleveland Snowden Cholesterol in LDL [Mass/Vol] 28.0 mg/dL Normal [facility] Comment on above: Performed By: #### P T, PTT #### [facility] [address] [address] [address] Cleveland Snowden Cholesterol.total/Ch olesterol in HDL [Mass ratio] 4.3 {ratio} Normal [facility] Comment on above: Performed By: #### P T, PTT #### [facility] [address] [address] [address] Cleveland Snowden HDL NORMAL > or = 60 mg/dl - LO W CARDIOVASCULAR RISK <40 mg/dl - HIGH CARDIOVASCULAR RISK Normal [facility] Comment on above: Performed By: #### P T, PTT #### [facility] [address] [address] [address] Cleveland Snowden LDL CALC NORMAL SEE BELOW Normal [facility] Comment on above: Result Comment: <100 mg/dl OPTIMAL 100 - 129 mg/dl NEAR OR ABOVE OPTIMAL 130 - 159 mg/dl BORDERLINE HIGH 160 - 189 mg/dl HIGH >190 mg/dl VERY HIGH Performed By: #### P T, PTT #### [facility] [address] [address] [address] Cleveland Snowden Triglyceride [Mass/Vol] 260 mg/dL Critically high <=150 [facility] Comment on above: Performed By: #### P T, PTT #### [facility] [address] [place] [address] Dr. Cleveland Snowden VLDL CALC 52.0 mg/dL Normal [facility] Comment on above: Performed By: #### P T, PTT #### [facility] [address] [place] [address] Dr. Cleveland Snowden PROF 14(COMP METB)on 022 Albumin [Mass/Vol] 3.5 g/dL Normal 3.4-5.0 [facility] Comment on above: Performed By: #### P T, PTT #### [facility] [address] [place] [address] Dr. Cleveland Snowden Albumin/Globulin [Mass ratio] 1.1 {ratio} Normal [facility] Comment on above: Performed By: #### P T, PTT #### [facility] [address] [place] [address] Dr. Cleveland Snowden ALP [Catalytic activity/Vol] 59 U/L Normal 46-116 [facility] Comment on above: Performed By: #### P T, PTT #### [facility] [address] [place] [address] Dr. Cleveland Snowden ALT [Catalytic activity/Vol] 46 U/L Normal 16-63 [facility] Comment on above: Performed By: #### P T, PTT #### [facility] [address] [place] [address] Dr. Cleveland Snowden Anion gap [Moles/Vol] 14.7 mmol/L Normal [facility] Comment on above: Performed By: #### P T, PTT #### [facility] [address] [address] [address] Cleveland Snowden AST [Catalytic activity/Vol] 46 U/L Critically high 15-37 [facility] Comment on above: Performed By: #### P T, PTT #### [facility] [address] [place] [address] Dr. Cleveland Snowden Bilirubin [Mass/Vol] 0.5 mg/dL Normal 0.2-1.0 [facility] Comment on above: Performed By: #### P T, PTT #### [facility] [address] [place] [address] Dr. Cleveland Snowden Calcium [Mass/Vol] 9.5 mg/dL Normal 8.5-10.1 [facility] Comment on above: Performed By: #### P T, PTT #### [facility] [address] [place] [address] Dr. Cleveland Snowden Chloride [Moles/Vol] 103 mmol/L Normal 98-107 [facility] Comment on above: Performed By: #### P T, PTT #### [facility] [address] [place] [address] Dr. Cleveland Snowden CO2 [Moles/Vol] 28.1 mmol/L Normal 21.0-32.0 [facility] Comment on above: Performed By: #### P T, PTT #### [facility] [address] [place] [address] Dr. Cleveland Snowden Creatinine [Mass/Vol] 0.84 mg/dL Normal 0.70-1.30 [facility] Comment on above: Performed By: #### P T, PTT #### [facility] [address] [place] [address] Dr. Cleveland Snowden EGFR-AF PANAMANIAN >60 Normal >=60 [facility] Comment on above: Performed By: #### P T, PTT #### [facility] [address] [place] [address] Dr. Cleveland Snowden EGFR-NON AF PANAMANIAN >60 Normal >=60 [facility] Comment on above: Performed By: #### P T, PTT #### [facility] [address] [place] [address] Dr. Cleveland Snowden Globulin (S) [Mass/Vol] 3.1 g/dL Normal [facility] Comment on above: Performed By: #### P T, PTT #### [facility] [address] [address] [address] Cleveland Snowden Glucose [Mass/Vol] 176 mg/dL Critically high 74-106 [facility] Comment on above: Performed By: #### P T, PTT #### [facility] [address] [address] [address] Cleveland Snowden Potassium [Moles/Vol] 3.8 mmol/L Normal 3.5-5.1 [facility] Comment on above: Performed By: #### P T, PTT #### [facility] [address] [place] [address] Dr. Cleveland Snowden Protein [Mass/Vol] 6.6 g/dL Normal 6.4-8.2 [facility] Comment on above: Performed By: #### P T, PTT #### [facility] [address] [place] [address] Dr. Cleveland Snowden Sodium [Moles/Vol] 142 mmol/L Normal 136-145 [facility] Comment on above: Performed By: #### P T, PTT #### [facility] [address] [place] [address] Dr. Cleveland Snowden Urea nitrogen [Mass/Vol] 24.0 mg/dL Critically high 7.0-18.0 [facility] Comment on above: Performed By: #### P T, PTT #### [facility] [address] [place] [address] Dr. Cleveland Snowden Urea nitrogen/Creatinine [Mass ratio] 28.6 mg/mg Normal [facility] Comment on above: Performed By: #### P T, PTT #### [facility] [address] [place] [address] Dr. Cleveland Snowden URIC ACID SERUMon 05-05-2022 Urate [Mass/Vol] 6.2 mg/dL Normal 3.5-7.2 [facility] Comment on above: Performed By: #### P T, PTT #### [facility] [address] [address] [address] Cleveland Snowden Basophils Auto (Bld) [#/Vol] on 04-03-2021 Basophils (Bld) [#/Vol] 0.0 10*3/uL 0.0-0.2 [facility] Basophils/100 WBC Auto (Bld) on 04-03-2021 Basophils/100 WBC (Bld) 0.6 % [facility] Blood hemoglobin measurement (mass/volume)on 04-03-2021 Hemoglobin (Bld) [Mass/Vol] 12.2 g/dL 13.0-17.0 [facility] Blood leukocytes automated c ount (number/volume)on 04-03-2021 WBC (Bld) [#/Vol] 4.7 10*3/uL 4.5-11.0 [facility] Creatinine and Glomerular fi ltration rate.predicted panel (S/P/Bld)on 04-03-2021 Creatinine [Mass/Vol] 0.68 mg/dL 0.64-1.27 [facility] Eosinophils Auto (Bld) [#/Vo l]on 04-03-2021 Eosinophils (Bld) [#/Vol] 0.1 10*3/uL 0.0-0.45 [facility] Eosinophils/100 WBC Auto (Bl d)on 04-03-2021 Eosinophils/100 WBC (Bld) 3.1 % [facility] Erythrocyte distribution wid th Auto (RBC) [Ratio]on 04-03-2021 Erythrocyte distribution width (RBC) [Ratio] 15.0 % 12.0-14.8 [facility] Estimated glomerular filtrat ion rate (GFR) non- Americanon 04-03-2021 GFR/1.73 sq M.predicted among non-blacks MDRD (S/P/Bld) [Vol rate/Area] > 60 mL/Min [facility] Hematocrit Auto (Bld) [Volum e fraction]on 04-03-2021 Hematocrit (Bld) [Volume fraction] 36.2 % 38.8-50.0 [facility] Laboratory - Hematology and Cell countson 04-03-2021 Nucleated RBC/100 WBC (Bld) [Ratio] 0.2 % 0-0.5 [facility] Lymphocytes Auto (Bld) [#/Vo l]on 04-03-2021 Lymphocytes (Bld) [#/Vol] 0.7 10*3/uL 1.00-4.8 [facility] Lymphocytes/100 WBC Auto (Bl d)on 04-03-2021 Lymphocytes/100 WBC (Bld) 14.5 % [facility] MCH Auto (RBC) [Entitic mass ]on 04-03-2021 MCH (RBC) [Entitic mass] 31.3 pg 27.5-35.2 [facility] MCHC Auto (RBC) [Mass/Vol]on 04-03-2021 MCHC (RBC) [Mass/Vol] 33.8 g/dL 32.5-35.6 [facility] MCV Auto (RBC) [Entitic vol] on 04-03-2021 MCV (RBC) [Entitic vol] 92.6 fL 83.5-101 [facility] Monocytes Auto (Bld) [#/Vol] on 04-03-2021 Monocytes (Bld) [#/Vol] 0.5 10*3/uL 0.0-0.8 [facility] Monocytes/100 WBC Auto (Bld) on 04-03-2021 Monocytes/100 WBC (Bld) 10.7 % [facility] Neutrophils Auto (Bld) [#/Vo l]on 04-03-2021 Neutrophils (Bld) [#/Vol] 3.3 10*3/uL 1.8-7.7 [facility] Neutrophils/100 WBC Auto (Bl d)on 04-03-2021 Neutrophils/100 WBC (Bld) 71.1 % [facility] No Panel Informationon 04-03 Estimated GFR () > 60 mL/Min [facility] Comment on above: GFR estimated refere nce range: According to KDOQI guidelines, <60 ml/min/1.73m2 is sufficient to diagnose a patient with chronic kidney disease. Pharmacy Creatinine Clearance (Chem N/A [facility] Platelet mean volume Auto (B ld) [Entitic vol]on 04-03-2021 Platelet mean volume (Bld) [Entitic vol] 8.5 fL 6.6-10.1 [facility] Platelets Auto (Bld) [#/Vol] on 04-03-2021 Platelets (Bld) [#/Vol] 137 10*3/uL 150-450 [facility] RBC Auto (Bld) [#/Vol]on RBC (Bld) [#/Vol] 3.91 10*6/uL 3.90-5.60 [facility] Serum or plasma calcium edu urement (mass/volume)on 04-03-2021 Calcium [Mass/Vol] 9.8 mg/dL 8.2-10.2 [facility] Serum or plasma chloride merlyn surement (moles/volume)on 04-03-2021 Chloride [Moles/Vol] 100 mmol/L 95-114 [facility] Serum or plasma glucose edu urement (mass/volume)on 04-03-2021 Glucose [Mass/Vol] 184 mg/dL 70-100 [facility] Comment on above: ADA recommended refe rence rangeRandom Glucose Reference Range is dependent on time and content of last meal. Glucose of more than 200 mg/dL in a nonstressed, ambulatory subject supports the diagnosis of Diabetes Mellitus. Serum or plasma potassium me asurement (moles/volume)on 04-03-2021 Potassium [Moles/Vol] 3.6 mmol/L 3.5-5.1 [facility] Serum or plasma sodium measu rement (moles/volume)on 04-03-2021 Sodium [Moles/Vol] 138 mmol/L 136-146 [facility] Serum or plasma total carbon dioxide measurement (moles/volume)on 04-03-2021 CO2 [Moles/Vol] 26.3 mmol/L 22.0-30.0 [facility] Serum or plasma urea nitroge n measurement (mass/volume)on 04-03-2021 Urea nitrogen [Mass/Vol] 17 mg/dL 9-23 [facility] Basophils Auto (Bld) [#/Vol] on 02-11-2021 Basophils (Bld) [#/Vol] 0.0 10*3/uL 0.0-0.2 [facility] Basophils/100 WBC Auto (Bld) on 02-11-2021 Basophils/100 WBC (Bld) 0.6 % [facility] Blood hemoglobin measurement (mass/volume)on 02-11-2021 Hemoglobin (Bld) [Mass/Vol] 12.6 g/dL 13.0-17.0 [facility] Blood leukocytes automated c ount (number/volume)on 02-11-2021 WBC (Bld) [#/Vol] 4.4 10*3/uL 4.5-11.0 [facility] Eosinophils Auto (Bld) [#/Vo l]on 02-11-2021 Eosinophils (Bld) [#/Vol] 0.2 10*3/uL 0.0-0.45 [facility] Eosinophils/100 WBC Auto (Bl d)on 02-11-2021 Eosinophils/100 WBC (Bld) 3.8 % [facility] Erythrocyte distribution wid th Auto (RBC) [Ratio]on 02-11-2021 Erythrocyte distribution width (RBC) [Ratio] 14.9 % 12.0-14.8 [facility] Hematocrit Auto (Bld) [Volum e fraction]on 02-11-2021 Hematocrit (Bld) [Volume fraction] 36.1 % 38.8-50.0 [facility] Laboratory - Hematology and Cell countson 02-11-2021 Nucleated RBC/100 WBC (Bld) [Ratio] 0.1 % 0-0.5 [facility] Lymphocytes Auto (Bld) [#/Vo l]on 02-11-2021 Lymphocytes (Bld) [#/Vol] 0.7 10*3/uL 1.00-4.8 [facility] Lymphocytes/100 WBC Auto (Bl d)on 02-11-2021 Lymphocytes/100 WBC (Bld) 15.4 % [facility] MCH Auto (RBC) [Entitic mass ]on 02-11-2021 MCH (RBC) [Entitic mass] 32.5 pg 27.5-35.2 [facility] MCHC Auto (RBC) [Mass/Vol]on 02-11-2021 MCHC (RBC) [Mass/Vol] 34.8 g/dL 32.5-35.6 [facility] MCV Auto (RBC) [Entitic vol] on 02-11-2021 MCV (RBC) [Entitic vol] 93.3 fL 83.5-101 [facility] Monocytes Auto (Bld) [#/Vol] on 02-11-2021 Monocytes (Bld) [#/Vol] 0.5 10*3/uL 0.0-0.8 [facility] Monocytes/100 WBC Auto (Bld) on 02-11-2021 Monocytes/100 WBC (Bld) 12.1 % [facility] Neutrophils Auto (Bld) [#/Vo l]on 02-11-2021 Neutrophils (Bld) [#/Vol] 3.0 10*3/uL 1.8-7.7 [facility] Neutrophils/100 WBC Auto (Bl d)on 02-11-2021 Neutrophils/100 WBC (Bld) 68.1 % [facility] Platelet mean volume Auto (B ld) [Entitic vol]on 02-11-2021 Platelet mean volume (Bld) [Entitic vol] 8.2 fL 6.6-10.1 [facility] Platelets Auto (Bld) [#/Vol] on 02-11-2021 Platelets (Bld) [#/Vol] 118 10*3/uL 150-450 [facility] RBC Auto (Bld) [#/Vol]on RBC (Bld) [#/Vol] 3.87 10*6/uL 3.90-5.60 [facility] Creatinine (Bld) [Mass/Vol]o n 01-10-2021 Creatinine [Mass/Vol] 0.7 mg/dL 0.6-1.3 [facility] Comment on above: ER/ESD physician is notified/shown all ISTAT results.Critical values may be confirmed by laboratory testing ifdeemed necessary by ER attending doctor. No Panel Informationon 01-10 POC Estimated GFR > 60 [facility] Comment on above: GFR estimated refere nce range: According to KDOQI guidelines, <60 ml/min/1.73m2 is sufficient to diagnose a patient with chronic kidney disease. POC Estimated GFR Non- Amer > 60 [facility] Vital Signs Date Time Vital Sign Value Performing Clinician Marcelino long 12-09-2023 11:01-0500 Body height 190.5 cm Preet Enrique DPM Work Phone: [facility] 12-09-2023 11:01-0500 Body mass index (BMI) [Ratio] 36.87 kg/m2 Preet Klaus DPM Work Phone: [facility] 12-09-2023 11:01-0500 Body weight 133.81 kg Preet Klaus DPM Work Phone: [facility] 07-21-2023 13:32-0400 Blood Pressure Location Jude BEACH [facility] 07-21-2023 13:32-0400 Diastolic blood pressure 64 mm[Hg] Jude BEACH [facility] 07-21-2023 13:32-0400 Heart rate 54 /min Jude BE[facility] 07-21-2023 13:32-0400 Systolic blood pressure 117 mm[Hg] Jude BE[facility] 01-05-2023 10:47-0500 Blood Pressure Location Jude BEACH [facility] 01-05-2023 10:47-0500 Diastolic blood pressure 93 mm[Hg] Jude [place] 01-05-2023 10:47-0500 Heart rate 58 /min Jude BE[facility] 01-05-2023 10:47-0500 Systolic blood pressure 152 mm[Hg] Jude BE[facility] Encounters Encounter Date Encounter Type Care Provider Facility Start: 07-26-2024 ambulatory Jude Gutierrez ty:[facility] Start: 12-09-2023 End: 12-09-2023 ambulatory PREET Marciano KLAUS Not Available Start: 12-09-2023 End: 12-09-2023 Patient encounter procedure Preet Tariq Klaus DPM Work Phone: [facility] Comment on above: 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, not 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) (CMS/[facility]) (Primary Dx); Onychomycosis; Hallux limitus, left; Acquired keratoderma Start: 11-04-2023 End: 11-04-2023 ambulatory KHOA BOWLES Not Available Start: 08-05-2023 End: 08-05-2023 ambulatory Yaquelin Ryan Facility:[facility] Start: 08-05-2023 End: 08-05-2023 ambulatory MD Khoa Bowles Work Phone: [facility] Work Phone: Start: 08-05-2023 End: 08-05-2023 Patient encounter procedure MD Khoa Bowles Work Phone: [facility] [address] Work Phone: Start: 07-21-2023 End: 07-22-2023 ambulatory Jude BEACH Facility:[facility] Start: 07-21-2023 End: 07-21-2023 Patient encounter procedure Jude BEACH [facility] Start: 07-16-[address] KHOA BOWLES . Fac ility:[facility] Start: 05-24-2023 ambulatory Jude Gutierrez ty:[facility] Start: 02-04-2023 End: 02-05-[address] JUDE BEACH . Facility:[facility] Start: 01-14-2023 End: 01-15-[address] JUDE BEACH . Facility:[facility] Start: 01-12-2023 Encounter for other preprocedural examination DR JUDE BEACH . [facility] Start: 01-12-2023 Encounter for preprocedural cardiovascular examination DR JUDE BEACH . [facility] Start: 01-12-2023 Encounter for preprocedural laboratory examination DR JUDE BEACH . [facility] Start: 01-08-2023 End: 01-09-[address] JUDE BEACH . Facility:[facility] Start: 01-08-2023 End: 01-09-2023 Encounter for preprocedural laboratory examination DR JUDE BEACH . Facility: Start: 01-05-2023 End: 01-06-2023 ambulatory Jude BEACH Facility:[facility] Start: 01-05-2023 End: 01-05-2023 Patient encounter procedure Jude BEACH [facility] Start: 12-31-2022 End: 01-01-[address] KHOA BOWLES . Facility:[facility] Start: 11-02-[address] KHOA BOWLES . Fac ility: Start: 09-21-2022 End: 09-22-2022 ambulatory Jude BEACH Facility:[facility] Start: 09-21-2022 End: 09-21-2022 Patient encounter procedure Jude BEACH [facility] Start: 09-09-2022 End: 09-10-[address] JUDE BEACH . Facility:[facility] Start: 08-06-2022 End: 08-07-[address] KHOA BOWLES . Facility:[facility] Start: 05-05-2022 End: 05-06-[address] KHOA BOWLES . Facility:[facility] Start: 04-03-2021 End: 04-03-2021 Patient encounter procedure Khoa Bowles Work Phone: -Pre-Surgical Testing Start: 02-11-2021 End: 02-11-2021 Patient encounter procedure Khoa Bowles Work Phone: [facility] [place] Start: 01-10-2021 End: 01-10-2021 Patient encounter procedure Khoa Bowles Work Phone: -[facility] [address] Procedures Date Procedure Procedure Detail Performing Clinician Start: 08-05-2023 XR pre/post mri xray MD Khoa Bowles Work Phone: Start: 08-05-2023 MR lumbar spine wo con MD Khoa Bowles Work Phone: Start: 01-14-2023 Extracorporeal shock wave lithotripsy of calculus of kidney Jude BEACH Start: 12-31-[address] LILIANE BEACH . Comment on above: Performed By: #### P T, PTT #### [facility] [address] [place] [address] Dr. Cleveland Snowden Start: 09-09-[address] LILIANE BEACH . Comment on above: Performed By: #### P SAD #### [facility] [address] [place] [address] Dr. Cleveland Snowden Start: 01-10-2021 MRI of lumbar spine with contrast Khoa Bowles Work Phone: Start: 01-10-2021 X-ray of lumbar spin e, four views Khoa Bowles Work Phone: Start: 06-17-2016 Colonoscopy Preet ribeiro DPM Work Phone: Start: 04-30-2015 Cystoscopy Jude REESE Start: 02-21-2014 Removal of calculus of renal pelvis through percutaneous nephrostomy Jude [facility]ACH Start: 01-23-2014 Removal of calculus of renal pelvis through percutaneous nephrostomy Jude BEACH Start: 12-27-2013 Cystoscopic extracti on of ureteric calculus without disintegration Jude BEACH Start: 11-23-2013 Cystoscopic extracti on of ureteric calculus without disintegration Jude BEACH Start: 10-26-2013 Cystoscopic insertio n of ureteric stent Jude BEACH Start: 07-01-2004 Cystoscopic removal of ureteric stent Jude BEACH Start: 06-24-2004 Cystoscopic extracti on of ureteric calculus without disintegration Jude BEACH Ankle region structu re (body structure) Jude BEACH Back structure, excl uding neck (body structure) Jude BEACH Colonoscopy Jude BEACH History of hernia repair Elke [place] Rotator cuff includi ng muscles and tendons (body structure) Jude BEACH Plan of Treatment Date Care Activity Detail Author Start: 06-17-2026 Screening for malign ant neoplasm of colon [facility] Start: 06-08-2024 Glaucoma screening Diabetes: R etinopathy Screening [facility] Start: 03-09-2024 End: 03-09-2024 Patient encounter procedure 03/09/2024 1:00 PM EDT Procedure Visit [facility] [address] [place] [address] Preet Enrique, DPM [address] [place] [address] [facility] Start: 02-23-2024 Medicare Annual Well ness (AWV) Medicare Annual Wellness (AWV) [facility] Start: 02-03-2024 End: 02-03-2024 Patient encounter procedure 02/03/2024 11:30 AM EDT Office Visit [facility] [address] [facility] [place] [address] Khoa Bowles MD [address] [facility] [place] [address] (Fax) [facility] Start: 01-18-2024 Hemoglobin A1c measurement Diabetes: Hemoglobin A1C [facility] Start: 1950 Screening for malign ant neoplasm of colon [facility] Immunizations Immunization Date Immunization Notes Care Provider [place] 10-14-2023 Influenza, Seasonal, Quadrivalent, Adjuvanted Preet Enrique DPM Work Phone: [facility] 09-09-2022 SARS-CoV-2 (COVID-19 ) [id number] Jude [facility] 09-03-2022 influenza virus vacc ine, unspecified formulation Jude [facility] 09-03-2022 Influenza, High-dose Seasonal, Quadrivalent, Preservative Free Preet Enrique DPM Work Phone: [facility] 09-26-2021 SARS-CoV-2 (COVID-19 ) mRNA-1273 vaccine Jude [facility] 09-25-2021 Moderna SARS-CoV-2 Booster Vaccination Preet Enrique DPM Work Phone: [facility] 08-22-2021 influenza virus vacc ine, unspecified formulation Jude [facility] 08-22-2021 Influenza, Seasonal, Quadrivalent, Adjuvanted Preet Enrique DPM Work Phone: [facility] 08-20-2021 influenza virus vacc ine, unspecified formulation Jude [facility] 01-25-2021 COVID-19 mRNA-1273 (Moderna) Khoa Bowles Work Phone: [facility] 01-25-2021 SARS-CoV-2 (COVID-19 ) Ad26 vaccine, recombinant Jude BE[facility] 12-28-2020 COVID-19 mRNA-1273 (Moderna) Khoa Bowles Work Phone: [facility] Comment on above: Result Comment: 2022: [id number] 08-06-2020 influenza virus vacc ine, unspecified formulation Jude [facility] 08-06-2020 Influenza, Seasonal, Quadrivalent, Adjuvanted Preet Enrique DPM Work Phone: [facility] 09-04-2019 influenza virus vacc ine, unspecified formulation Jude [facility] 09-04-2019 influenza, high dose seasonal, preservative-free Preet Enrique DPM Work Phone: [facility] 08-19-2018 influenza virus vacc ine, unspecified formulation Jude [place] 08-19-2018 influenza, high dose seasonal, preservative-free Preet Enrique DPM Work Phone: [facility] 09-06-2017 influenza virus vacc ine, unspecified formulation Jude [facility] 09-06-2017 influenza, high dose seasonal, preservative-free Preet Enrique DPM Work Phone: [facility] 09-06-2017 pneumococcal polysaccharide vaccine, 23 valent Jude [facility] 08-18-2017 influenza virus vacc ine, unspecified formulation Jude [facility] 08-17-2016 influenza virus vacc ine, unspecified formulation Jude [place] 08-17-2016 influenza, high dose seasonal, preservative-free Preet Enrique DPM Work Phone: [facility] 08-17-2016 pneumococcal conjuga te vaccine, 13 valent Jude [facility] 08-22-2015 zoster vaccine, live Jude [place] 08-17-2015 influenza, seasonal, injectable, preservative free Preet Enrique DPM Work Phone: [facility] 07-27-2013 influenza virus vacc ine, unspecified formulation Jude [place] 02-22-2012 pneumococcal polysaccharide vaccine, 23 valent Preet Enrique DPM Work Phone: [facility] 07-20-2009 pneumococcal polysaccharide vaccine, 23 valent Jude [place] Payers Date Payer Category Payer Medicare [id number] 2016 Medicare MEDICARE MEDICAR E PART B [id number] 2016-Present [address] [address] [place] [address] Medicare [id number] 2016 Private Health Insurance [employer] [id number] 2016-Present [address] [address] [place] [address] Supplement [id number] 1959 Medicare [id number] 1959 Private Health Insurance [facility] [id number] 1959 Self-pay [id number] 1950 Unknown [id number] 2.16.840.1.863970.3.579 .2.593 1950 Unknown [id number] 2.16.840.1.535918.3.579 .2.593 1950 Unknown [id number] 2.16.840.1.365219.3.579 .2.593 1950 Unknown [id number] 2.16.840.1.154725.3.579 .2.593 1950 Unknown [id number] 2.16.840.1.440005.3.579 .2.593 1950 Unknown [id number] 2.16.840.1.753768.3.579 .2.593 1950 Unknown [id number] 2.16.840.1.708524.3.579 .2.593 1950 Unknown [id number] 2.16.840.1.284331.3.579 .2.593 1950 Unknown [id number] 2.16.840.1.012790.3.579 .2.593 1950 Unknown [id number] 2.16.840.1.687091.3.579 .2.593 1950 Unknown [id number] 2.16.840.1.489322.3.579 .2.727 1950 Unknown [id number] 2.16.840.1.151708.3.579 .2.727 1950 Unknown [id number] 2.16.840.1.593274.3.579 .2.727 1950 Unknown [id number] 2.16.840.1.280338.3.579 .2.727 1950 Unknown [id number] 2.16.840.1.510396.3.579 .2.727 1950 Unknown [id number] 2.16.840.1.979533.3.579 .2.727 1950 Unknown [id number] 2.16.840.1.396500.3.579 .2.1259 1950 Unknown [id number] 2.16.840.1.098796.3.579 .2.1259 Unknown [id number] Unknown [id number] 2.16.840.1.429386.3.579 .2.531 Social History Date Type Detail Facility Start: 04-03-2021 End: 06-02-2023 Tobacco smoking status VAIS Never smoked tobacco (finding) [facility] Start: 1950 Sex Assigned At Male F [facility] Tobacco smoking status Never [facility] Start: 11-04-2023 End: 12-09-2023 Sex Assigned At Male [facility] Start: 12-09-2023 Alcohol intake Lifetime non-d alexis (finding) [facility] Start: 11-04-2023 End: 12-09-2023 History of Social function [facility] Start: 04-14-2023 Alcohol Comment Caffeine intake: non e [facility] Start: 1950 Sex Assigned At Not on file [facility] Medical Equipment Procedure Code Equipment Code Equipment Origin al Text Equipment Identifier Dates Discectomy, lumbar COFLEX SIZE 10 [facility] art: 11-23-2018 Discectomy, lumbar COFLEX SIZE 14 [facility] art: 11-23-2018 Discectomy, lumbar COFLEX SIZE 14 [facility] art: 11-23-2018 Discectomy, lumbar COFLEX SIZE 10 [facility] art: 11-23-2018 1 each by In Vit ro route in the morning. Take before meals. [id number] Start: 08-02-2023 End: 07-27-2024 1 Units in the morning. Take before meals. Accucheck soft clix. [id number] Start: 11-10-2023 End: 11-04-2024 Injection subcutaneous [id number] Start: 11-11-2023 Functional Status Date Assessment Result Facility 07-21-2023 Functional Status N/A [facility] 01-05-2023 Functional Status N/A [facility] History of Present illness Narrative 12-09-2023 Preet Enrique, DPM - 12/09/2023 11:00 AM EST Note Date & Type Note Facility 12-09-2023 History of Presen t illness Narrative Images from the original note were not included. Subjective Patient ID: Manuel Balderas is a 73 y.o. male who presents for Nail care (Manuel Balderas is a 73 y.o. male. Established pt presents today for diabetic nail care. PCP: Dr. Jelena HERNANDEZ 11/04/2023, A1C: 7.6 (07/27/23),BS: 168 SS: 12).). Established patient returns requesting nail debridement and callus debridement. He states the wound on the bottom of his hallux has remained closed. His nails are thick and fungal. He is unable to trim these at home. He states at home he has been relying more upon a walker, as he has had some instability issue Review of Systems Current Outpatient Medications: allopurinol (Zyloprim) 300 MG tablet, Take 1 tablet (300 mg) by mouth in the morning., Disp: 90 tablet, Rfl: 1 aspirin 81 MG EC tablet, Take 81 mg by mouth in the morning., Disp: , Rfl: biotin 44564 MCG tablet, 1 (one) time each day at the same time., Disp: , Rfl: dapagliflozin (Farxiga) 10 MG, Take 1 tablet (10 mg) by mouth in the morning., Disp: 90 tablet, Rfl: 0 doxycycline (Monodox) 100 MG capsule, Take 1 capsule (100 mg) by mouth in the morning., Disp: 90 capsule, Rfl: 3 fenofibrate (Triglide) 160 MG tablet, Take 1 tablet (160 mg) by mouth in the morning., Disp: 90 tablet, Rfl: 0 ferrous sulfate 325 (65 Fe) MG tablet, Take 325 mg by mouth in the morning. Take with meals., Disp: , Rfl: Flomax 0.4 MG 24 hr capsule, Take 0.4 mg by mouth in the evening., Disp: , Rfl: gabapentin (Neurontin) 300 MG capsule, Take 1 capsule by mouth in the morning and 1 capsule before bedtime., Disp: , Rfl: Glucose Blood (Blood Glucose Test Strips 333) strip, 1 each by In Vitro route in the morning. Take before meals., Disp: 100 strip, Rfl: 3 hydroCHLOROthiazide (HYDRODiuril) 25 MG tablet, Take 1 tablet (25 mg) by mouth in the evening, Disp: 90 tablet, Rfl: 1 insulin glargine (Basaglar KwikPen) 100 UNIT/ML pen, Inject before supper, sliding blood glucose scale; <150=2U, 151-200=4u, 201-250=6u, >250=8u Strength: 100 UNIT/ML, Disp: 3 mL, Rfl: 0 Lancets misc, 1 Units in the morning. Take before meals. Accucheck soft clix., Disp: 100 each, Rfl: 3 losartan-hydroCHLOROthiazide (Hyzaar) 100-12.5 MG tablet, Take 1 tablet by mouth in the morning., Disp: 90 tablet, Rfl: 0 Lutein 20 MG tablet, 1 (one) time each day at the same time., Disp: , Rfl: metFORMIN (Glucophage) 1000 MG tablet, Take 1 tablet (1,000 mg) by mouth in the morning and 1 tablet (1,000 mg) in the evening. Take with meals., Disp: 180 tablet, Rfl: 0 metoprolol tartrate (Lopressor) 50 MG tablet, Take 1 tablet (50 mg) by mouth in the morning and 1 tablet (50 mg) before bedtime., Disp: 180 tablet, Rfl: 0 pen needle 32G x 6 mm misc, Injection subcutaneous, Disp: 30 each, Rfl: 2 sodium bicarbonate 650 MG tablet, Take 3 tablets by mouth in the morning and 3 tablets before bedtime., Disp: , Rfl: spironolactone (Aldactone) 25 MG tablet, 2 tablets in Am and 1 tablet in PM, Disp: 270 tablet, Rfl: 0 Meperidine, Meperidine hcl, and Pioglitazone Past Surgical History: Procedure Laterality Date BACK SURGERY 11/23/2018 2 days BLEPHAROPLASTY Bilateral 01/2021 Christopher Viveros CATARACT EXTRACTION Bilateral 06/2021 Dr White COLONOSCOPY 2010 COLONOSCOPY 06/17/2016 EYE EXAM 2013 HERNIA REPAIR 1988 KIDNEY STONE SURGERY 02/21/2014 LITHOTRIPSY 12/30/2022 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/14/2019 Right ear melanoma removed and graft OTHER SURGICAL HISTORY 01/2017 Dr Lu - left big toe umbilical cord skin OTHER SURGICAL HISTORY 11/23/2018 Lumbar decompression at L3-L4-L5 with Coflex device OTHER SURGICAL HISTORY 04/2021 lumbar decompression with removal of 1 of the Coflex devices., [place] [facility] [place] 2000 anterior stabilization Family History Problem Relation Name Age of Onset Diabetes Mother Other (NonHodgkins Lymphoma) Father No Known Problems Sister No Known Problems Brother No Known Problems Daughter Objective Physical Exam Cardiovascular: Comments: Pedal pulses: DP 2/4 bilateral, PT 1/4 bilateral. Skin temp is warm to warm. Varicosities: present Hair growth: present Pulmonary: Effort: Pulmonary effort is normal. Musculoskeletal: General: No tenderness. Right lower leg: Edema (nonpitting) present. Left lower leg: Edema (nonpitting) present. Comments: FOOT MORPHOLOGY:planus, History of rear foot fusion LIMB LENGTH DISCREPANCY: yes. JOINT RANGE OF MOTION:ankle and subtalar joint fusion on this left lower extremity. Limited STJ ROM R. Adequate AJ ROM R. 1st MTPJ ROM is limited on the L, no hard end ROM feel, no crepitus. There is no HIPJ dorsiflexion available. DEFORMITIES: prominent medial navicular bone right foot. . MUSCLE STRENGTH Limited STJ and AJ and 1st MPJ left and right foot. The extensor hallucis longus tendon to the left great toe is weak which exacerbates the plantarflexion position of the hallux. Feet: Comments: Last diabetic foot exam 06/03/2023 Skin: General: Skin is warm. Capillary Refill: Capillary refill takes 2 to 3 seconds. Findings: No bruising or erythema. Comments: SKIN FINDINGS:web spaces are clean/dry. Chronic stasis with hx of vein insufficiency, chronic brawny edema. HYPERKERATOSIS: Plantar HIPJ L. Callus noted WB surface of L heel, no further subdermal bleeding. NAIL PATHOLOGY:R hallux has been permanently removed with small remaining mycotic medial nail spicule. Nails 3 and 4 on the right with superficial white fungus. Nail 1 L is 4mm thick, brown crumbly debris, brittle elongated, mycotic, lysed from lateral nail bed. Nail 4 L is 4mm thick, incurvated, fungal. ULCER: there is superficial abrasion noted dorsal distal L 2nd digit, the one previously noted on L 3rd digit has healed. L 2nd digit abrasion is small, superficial, with granular base. SKIN PATHOLOGY: texture, turgor, of skin is dystrophic due to the chronic edema and stasis changes. Neurological: Mental Status: He is alert and oriented to person, place, and time. Comments: Light touch sensation intact VIBRATORY: absent at IPJ, MPJ, and medial malleolus. Diminished at patella b/l. SEMMES-NATASHA 5.07 MONOFILAMENT: absent at 10/10 sites. Psychiatric: Mood and Affect: Mood normal. Behavior: Behavior normal. MODIFIER: Q9, [address], [address] Assessment/Plan Diagnoses and all orders for this visit: Type II or unspecified type diabetes mellitus with neurological manifestations, not 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) ([facility]) Onychomycosis Hallux limitus, left Acquired keratoderma Conservative and palliative care implemented as per request. Under aseptic technique all nails debrided with large and small nail nippers, curette and power dayna. Onychodebridement in length and thickness with the goals of relief of pain, reducing risks of infection, ulceration or pain. Well tolerated and expresses appreciation for care given. Feet inspected and hygiene discussed Callus at L hallux and L heel were debrided by me. I was able to use #15 blade to effectively reduce callus build up. No open wounds present. Reviewed the findings of the superficial abrasion of the left 2nd digit. Pt was unaware of the abrasion. He states he has been using his walker and continues to bump his toe on it. He will start applying Amerigel ointment with Band-Aid daily and leaving open to air at night. This note was created with the assistance of a speech recognition program. While intending to generate a timely document that accurately reflects the content of the visit, no guarantee can be provided that every grammatical or spelling mistake has been or will be identified or corrected. Thank you for your understanding. Preet Enrique DPM documented in this encounter [facility] Hospital Discharge instructions 07-21-2023 Note Date & Type Note Facility 07-21-2023 Hospital Discharg e instructions Patient Education 07/21/2023 14:08:11 Dietary Guidelines to Help Prevent Kidney Stones Dietary Guidelines to Help Prevent Kidney Stones Kidney stones are deposits of minerals and salts that form inside your kidneys. Your risk of developing kidney stones may be greater depending on your diet, your lifestyle, the medicines you take, and whether you have certain medical conditions. Most people can lower their chances of developing kidney stones by following the instructions below. Your dietitian may give you more specific instructions depending on your overall health and the type of kidney stones you tend to develop. What are tips for following this plan? Reading food labels Choose foods with no salt added or low-salt labels. Limit your salt (sodium) intake to less than 1,500 mg a day. Choose foods with calcium for each meal and snack. Try to eat about 300 mg of calcium at each meal. Foods that contain 200 500 mg of calcium a serving include: ?8 oz (237 mL) of milk, dmzvgkn-olelelrfrhhj-kfjgb milk, and calcium-fortifiedfruit juice. Calcium-fortified means that calcium has been added to these drinks. ?8 oz (237 mL) of kefir, yogurt, and soy yogurt. ?4 oz (114 g) of tofu. ?1 oz (28 g) of cheese. ?1 cup (150 g) of dried figs. ?1 cup (91 g) of cooked broccoli. ?One 3 oz (85 g) can of sardines or mackerel. Most people need 1,000 1,500 mg of calcium a day. Talk to your dietitian about how much calcium is recommended for you. Shopping Buy plenty of fresh fruits and vegetables. Most people do not need to avoid fruits and vegetables, even if these foods contain nutrients that may contribute to kidney stones. When shopping for convenience foods, choose: ?Whole pieces of fruit. ?Pre-made salads with dressing on the side. ?Low-fat fruit and yogurt smoothies. Avoid buying frozen meals or prepared deli foods. These can be high in sodium. Look for foods with live cultures, such as yogurt and kefir. Choose high-fiber grains, such as whole-wheat breads, oat bran, and wheat cereals. Cooking Do not add salt to food when cooking. Place a salt shaker on the table and allow each person to add his or her own salt to taste. Use vegetable protein, such as beans, textured vegetable protein (TVP), or tofu, instead of meat in pasta, casseroles, and soups. Meal planning Eat less salt, if told by your dietitian. To do this: ?Avoid eating processed or pre-made food. ?Avoid eating fast food. Eat less animal protein, including cheese, meat, poultry, or fish, if told by your dietitian. To do this: ?Limit the number of times you have meat, poultry, fish, or cheese each week. Eat a diet free of meat at least 2 days a week. ?Eat only one serving each day of meat, poultry, fish, or seafood. ?When you prepare animal protein, cut pieces into small portion sizes. For most meat and fish, one serving is about the size of the palm of your hand. Eat at least five servings of fresh fruits and vegetables each day. To do this: ?Keep fruits and vegetables on hand for snacks. ?Eat one piece of fruit or a handful of berries with breakfast. ?Have a salad and fruit at lunch. ?Have two kinds of vegetables at dinner. Limit foods that are high in a substance called oxalate. These include: ?Spinach (cooked), rhubarb, beets, sweet potatoes, and Somali chard. ?Peanuts. ?Potato chips, croatian fries, and baked potatoes with skin on. ?Nuts and nut products. ?Chocolate. If you regularly take a diuretic medicine, make sure to eat at least 1 or 2 servings of fruits or vegetables that are high in potassium each day. These include: ?Avocado. ?Banana. ?[place], prune, carrot, or tomato juice. ?Baked potato. ?Cabbage. ?Beans and split peas. Lifestyle Drink enough fluid to keep your urine pale yellow. This is the most important thing you can do. Spread your fluid intake throughout the day. If you drink alcohol: ?Limit how much you use to: ?0 1 drink a day for women who are not . ?0 2 drinks a day for men. ?Be aware of how much alcohol is in your drink. In the [place] one drink equals one 12 oz bottle of beer (355 mL), one 5 oz glass of wine (148 mL), or one 1 oz glass of hard liquor (44 mL). Lose weight if told by your health care provider. Work with your dietitian to find an eating plan and weight loss strategies that work best for you. General information Talk to your health care provider and dietitian about taking daily supplements. You may be told the following depending on your health and the cause of your kidney stones: ?Not to take supplements with vitamin C. ?To take a calcium supplement. ?To take a daily probiotic supplement. ?To take other supplements such as magnesium, fish oil, or vitamin B6. Take dttt-ytk-uyqyljp and prescription medicines only as told by your health care provider. These include supplements. What foods should I limit? Limit your intake of the following foods, or eat them as told by your dietitian. Vegetables Spinach. Rhubarb. Beets. Canned vegetables. Pickles. Olives. Baked potatoes with skin. Grains Wheat bran. Baked goods. Salted crackers. Cereals high in sugar. Meats and other proteins Nuts. Nut butters. Large portions of meat, poultry, or fish. Salted, precooked, or cured meats, such as sausages, meat loaves, and hot dogs. Dairy Cheese. Beverages Regular soft drinks. Regular vegetable juice. Seasonings and condiments Seasoning blends with salt. Salad dressings. Soy sauce. Ketchup. Barbecue sauce. Other foods Canned soups. Canned pasta sauce. Casseroles. Pizza. Lasagna. Frozen meals. Potato chips. Colombian fries. The items listed above may not be a complete list of foods and beverages you should limit. Contact a dietitian for more information. What foods should I avoid? Talk to your dietitian about specific foods you should avoid based on the type of kidney stones you have and your overall health. Fruits Grapefruit. The item listed above may not be a complete list of foods and beverages you should avoid. Contact a dietitian for more information. Summary Kidney stones are deposits of minerals and salts that form inside your kidneys. You can lower your risk of kidney stones by making changes to your diet. The most important thing you can do is drink enough fluid. Drink enough fluid to keep your urine pale yellow. Talk to your dietitian about how much calcium you should have each day, and eat less salt and animal protein as told by your dietitian. This information is not intended to replace advice given to you by your health care provider. Make sure you discuss any questions you have with your health care provider. Document Revised: 06/29/2022 Document Reviewed: 06/29/2022 [employer] Patient Education 2022 [employer]. Follow Up Care 05/19/2023 09:51:24 With:NINA LEVY, Jude Crespo, MELANIE Address: [facility] [address] , [place] [address]- When: Unknown [facility] Discharge instructions 01-05-2023 Note Date & Type Note Facility 01-05-2023 Hospital Discharg e instructions Patient Education 01/05/2023 11:32:49 Dietary Guidelines to Help Prevent Kidney Stones Dietary Guidelines to Help Prevent Kidney Stones Kidney stones are deposits of minerals and salts that form inside your kidneys. Your risk of developing kidney stones may be greater depending on your diet, your lifestyle, the medicines you take, and whether you have certain medical conditions. Most people can reduce their chances of developing kidney stones by following the instructions below. Depending on your overall health and the type of kidney stones you tend to develop, your dietitian may give you more specific instructions. What are tips for following this plan? Reading food labels Choose foods with no salt added or low-salt labels. Limit your sodium intake to less than 1500 mg per day. Choose foods with calcium for each meal and snack. Try to eat about 300 mg of calcium at each meal. Foods that contain 200 500 mg of calcium per serving include: ?8 oz (237 ml) of milk, fortified nondairy milk, and fortified fruit juice. ?8 oz (237 ml) of kefir, yogurt, and soy yogurt. ?4 oz (118 ml) of tofu. ?1 oz of cheese. ?1 cup (300 g) of dried figs. ?1 cup (91 g) of cooked broccoli. ?1 3 oz can of sardines or mackerel. Most people need 1000 to 1500 mg of calcium each day. Talk to your dietitian about how much calcium is recommended for you. Shopping Buy plenty of fresh fruits and vegetables. Most people do not need to avoid fruits and vegetables, even if they contain nutrients that may contribute to kidney stones. When shopping for convenience foods, choose: ?Whole pieces of fruit. ?Premade salads with dressing on the side. ?Low-fat fruit and yogurt smoothies. Avoid buying frozen meals or prepared deli foods. Look for foods with live cultures, such as yogurt and kefir. Cooking Do not add salt to food when cooking. Place a salt shaker on the table and allow each person to add his or her own salt to taste. Use vegetable protein, such as beans, textured vegetable protein (TVP), or tofu instead of meat in pasta, casseroles, and soups. Meal planning Eat less salt, if told by your dietitian. To do this: ?Avoid eating processed or premade food. ?Avoid eating fast food. Eat less animal protein, including cheese, meat, poultry, or fish, if told by your dietitian. To do this: ?Limit the number of times you have meat, poultry, fish, or cheese each week. Eat a diet free of meat at least 2 days a week. ?Eat only one serving each day of meat, poultry, fish, or seafood. ?When you prepare animal protein, cut pieces into small portion sizes. For most meat and fish, one serving is about the size of one deck of cards. Eat at least 5 servings of fresh fruits and vegetables each day. To do this: ?Keep fruits and vegetables on hand for snacks. ?Eat 1 piece of fruit or a handful of berries with breakfast. ?Have a salad and fruit at lunch. ?Have two kinds of vegetables at dinner. Limit foods that are high in a substance called oxalate. These include: ?Spinach. ?Rhubarb. ?Beets. ?Potato chips and croatian fries. ?Nuts. If you regularly take a diuretic medicine, make sure to eat at least 1 2 fruits or vegetables high in potassium each day. These include: ?Avocado. ?Banana. ?[place], prune, carrot, or tomato juice. ?Baked potato. ?Cabbage. ?Beans and split peas. General instructions Drink enough fluid to keep your urine clear or pale yellow. This is the most important thing you can do. Talk to your health care provider and dietitian about taking daily supplements. Depending on your health and the cause of your kidney stones, you may be advised: ?Not to take supplements with vitamin C. ?To take a calcium supplement. ?To take a daily probiotic supplement. ?To take other supplements such as magnesium, fish oil, or vitamin B6. Take all medicines and supplements as told by your health care provider. Limit alcohol intake to no more than 1 drink a day for non women and 2 drinks a day for men. One drink equals 12 oz of beer, 5 oz of wine, or 1 oz of hard liquor. Lose weight if told by your health care provider. Work with your dietitian to find strategies and an eating plan that works best for you. What foods are not recommended? Limit your intake of the following foods, or as told by your dietitian. Talk to your dietitian about specific foods you should avoid based on the type of kidney stones and your overall health. Grains Breads. Bagels. Rolls. Baked goods. Salted crackers. Cereal. Pasta. Vegetables Spinach. Rhubarb. Beets. Canned vegetables. Pickles. Olives. Meats and other protein foods Nuts. Nut butters. Large portions of meat, poultry, or fish. Salted or cured meats. Deli meats. Hot dogs. Sausages. Dairy Cheese. Beverages Regular soft drinks. Regular vegetable juice. Seasonings and other foods Seasoning blends with salt. Salad dressings. Canned soups. Soy sauce. Ketchup. Barbecue sauce. Canned pasta sauce. Casseroles. Pizza. Lasagna. Frozen meals. Potato chips. Colombian fries. Summary You can reduce your risk of kidney stones by making changes to your diet. The most important thing you can do is drink enough fluid. You should drink enough fluid to keep your urine clear or pale yellow. Ask your health care provider or dietitian how much protein from animal sources you should eat each day, and also how much salt and calcium you should have each day. This information is not intended to replace advice given to you by your health care provider. Make sure you discuss any questions you have with your health care provider. Document Released: 02/12/2012 Document Revised: 02/07/2020 Document Reviewed: 09/28/2017 [employer] Patient Education 2020 [employer]. Follow Up Care 10/07/2022 10:58:19 With:NINA LEVY, Jude Crespo, MELANIE Address: [facility] [address], [place] [address]- When: Unknown [facility] Discharge instructions 09-21-2022 Note Date & Type Note Facility 09-21-2022 Hospital Discharge instructions Patient Education 09/21/2022 08:30:16 Benign Prostatic Hyperplasia Benign Prostatic Hyperplasia Benign prostatic hyperplasia (BPH) is an enlarged prostate gland that is caused by the normal aging process and not by cancer. The prostate is a walnut-sized gland that is involved in the production of semen. It is located in front of the rectum and below the bladder. The bladder stores urine and the urethra is the tube that carries the urine out of the body. The prostate may get bigger as a man gets older. An enlarged prostate can press on the urethra. This can make it harder to pass urine. The build-up of urine in the bladder can cause infection. Back pressure and infection may progress to bladder damage and kidney (renal) failure. What are the causes? This condition is part of a normal aging process. However, not all men develop problems from this condition. If the prostate enlarges away from the urethra, urine flow will not be blocked. If it enlarges toward the urethra and compresses it, there will be problems passing urine. What increases the risk? This condition is more likely to develop in men over the age of 50 years. What are the signs or symptoms? Symptoms of this condition include: Getting up often during the night to urinate. Needing to urinate frequently during the day. Difficulty starting urine flow. Decrease in size and strength of your urine stream. Leaking (dribbling) after urinating. Inability to pass urine. This needs immediate treatment. Inability to completely empty your bladder. Pain when you pass urine. This is more common if there is also an infection. Urinary tract infection (UTI). How is this diagnosed? This condition is diagnosed based on your medical history, a physical exam, and your symptoms. Tests will also be done, such as: A post-void bladder scan. This measures any amount of urine that may remain in your bladder after you finish urinating. A digital rectal exam. In a rectal exam, your health care provider checks your prostate by putting a lubricated, gloved finger into your rectum to feel the back of your prostate gland. This exam detects the size of your gland and any abnormal lumps or growths. An exam of your urine (urinalysis). A prostate specific antigen (PSA) screening. This is a blood test used to screen for prostate cancer. An ultrasound. This test uses sound waves to electronically produce a picture of your prostate gland. Your health care provider may refer you to a specialist in kidney and prostate diseases (urologist). How is this treated? Once symptoms begin, your health care provider will monitor your condition (active surveillance or watchful waiting). Treatment for this condition will depend on the severity of your condition. Treatment may include: Observation and yearly exams. This may be the only treatment needed if your condition and symptoms are mild. Medicines to relieve your symptoms, including: ?Medicines to shrink the prostate. ?Medicines to relax the muscle of the prostate. Surgery in severe cases. Surgery may include: ?Prostatectomy. In this procedure, the prostate tissue is removed completely through an open incision or with a laparoscope or robotics. ?Transurethral resection of the prostate (TURP). In this procedure, a tool is inserted through the opening at the tip of the penis (urethra). It is used to cut away tissue of the inner core of the prostate. The pieces are removed through the same opening of the penis. This removes the blockage. ?Transurethral incision (TUIP). In this procedure, small cuts are made in the prostate. This lessens the prostate's pressure on the urethra. ?Transurethral microwave thermotherapy (TUMT). This procedure uses microwaves to create heat. The heat destroys and removes a small amount of prostate tissue. ?Transurethral needle ablation (TUNA). This procedure uses radio frequencies to destroy and remove a small amount of prostate tissue. ?Interstitial laser coagulation (ILC). This procedure uses a laser to destroy and remove a small amount of prostate tissue. ?Transurethral electrovaporization (TUVP). This procedure uses electrodes to destroy and remove a small amount of prostate tissue. ?Prostatic urethral lift. This procedure inserts an implant to push the lobes of the prostate away from the urethra. Follow these instructions at home: Take kapz-lhw-radeocw and prescription medicines only as told by your health care provider. Monitor your symptoms for any changes. Contact your health care provider with any changes. Avoid drinking large amounts of liquid before going to bed or out in public. Avoid or reduce how much caffeine or alcohol you drink. Give yourself time when you urinate. Keep all follow-up visits as told by your health care provider. This is important. Contact a health care provider if: You have unexplained back pain. Your symptoms do not get better with treatment. You develop side effects from the medicine you are taking. Your urine becomes very dark or has a bad smell. Your lower abdomen becomes distended and you have trouble passing your urine. Get help right away if: You have a fever or chills. You suddenly cannot urinate. You feel lightheaded, or very dizzy, or you faint. There are large amounts of blood or clots in the urine. Your urinary problems become hard to manage. You develop moderate to severe low back or flank pain. The flank is the side of your body between the ribs and the hip. These symptoms may represent a serious problem that is an emergency. Do not wait to see if the symptoms will go away. Get medical help right away. Call your local emergency services (911 in the [place] Do not drive yourself to the hospital. Summary Benign prostatic hyperplasia (BPH) is an enlarged prostate that is caused by the normal aging process and not by cancer. An enlarged prostate can press on the urethra. This can make it hard to pass urine. This condition is part of a normal aging process and is more likely to develop in men over the age of 50 years. Get help right away if you suddenly cannot urinate. This information is not intended to replace advice given to you by your health care provider. Make sure you discuss any questions you have with your health care provider. Document Released: 10/18/2006 Document Revised: 09/12/2019 Document Reviewed: 11/22/2017 [employer] Patient Education 2020 [employer] Follow Up Care 12/22/2021 13:03:04 With:NINA LEVY, Jude Crespo, URL Address: [facility] [address] , [place] [address]- When: Unknown [facility] Evaluation + Plan note Note Date & Type Note Facility Evaluation + Plan note No data available for this section [facility] Evaluation + Plan note Note Date & Type Note Facility Evaluation + Plan note Future Appointments Appointment Date:07/26/2024 01:45:00 PM Scheduled Provider:Jude BEACH MD Location:[facility] Appointment Type:URO Office Visit [facility] Evaluation note Note Date & Type Note Facility Evaluation note No assessment information availa [facility] Evaluation note Note Date & Type Note Facility Evaluation note Diagnosis Type II or unspecified type diabetes mellitus with neurological manifestations, not 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) (CMS/HCC)- Primary Type II or unspecified type diabetes mellitus with neurological manifestations, not stated as uncontrolled Onychomycosis Dermatophytosis of nail Hallux limitus, left Acquired keratoderma documented in this encounter [facility] Progress note Note Date & Type Note Facility Progress note No data available for this section [facility] Chief Complaint and Reason for Visit Chief Complaint M43.16 Pre-Surgical Testing Stenosis Chief Complaint m54.10 m48.061 m51.3 6 m46.96 Family History Relationship Condition Age at Onset Recorded Date/T alyx father Hodgkin lymphoma Unknown Hypertension Unknown Malignant neoplasm of prostate Unknown Not Specified Hepatic cirrhosis Unknown Type 2 diabetes mellitus Unknown Advance Directives Advance Directive Response Recorded Date/ Time Advance Directives No June 20, 2018 3:31pm Summary Purpose Additional Source Comments Goals (unrecognized section and content) Goals may be documented in a n alternate section No data available for this section No data available for this section No data available for this sectionGoals may be documented in an alternate section Patient Care team informatio n (unrecognized section and content) Team Status: Active Member Role Status Dates Khoa Bowles MD Primary Care Provider Active Team Status: Inactive Member Role Status Dates Khoa Bowles MD Primary Care Provider Active Yaquelin Ryan PA-C Attending Provider Active Seasonal Clerk Relationship Specialty Start Date End Date Khoa Bowles MD [address] [facility] [place] [id number] PCP - General Family Medicine 04/08/23 Jude Beach MD [address] [place] [address] Referring Physician Urology 12/09/23 Preet Enrique DPM [address] [place], [place] [id number] Referring Physician Podiatry 12/09/23 (unrecognized sect ion and content) No Status Records FoundNo Status Records FoundNo Status Records FoundNo Status Records Found INFORMATION SOURCE (unrecogn ized section and content) DATE CREATED AUTHOR [facility]20[facility] DATE CREATED AUTHOR AUTHOR'S ORGANIZ ATION 08/06/2023 [facility] DATE CREATED AUTHOR AUTHOR'S ORGANIZ ATION 09/23/2023 [facility] DATE CREATED AUTHOR AUTHOR'S ORGANIZ ATION 12/10/2023 [facility] EPIC Reason for Visit (unrecogniz ed section and content) Reason Comments Nail care Manuel Balderas is a 73 y.o. male. Established pt presents today for diabetic nail care. PCP: Dr. Jelena HERNANDEZ 11/04/2023, A1C: 7.6 (07/27/23),BS: 168 SS: 12). FOR RECORDS PERTAINING TO PATIENTS WHO ARE OR HAVE BEEN ENROLLED IN A CHEMICAL DEPENDENCY/SUBSTANCEABUSE PROGRAM, SOME INFORMATION MAY BE OMITTED. This clinical summary was aggregated from multiple sources. Caution should be exercised in using it in the provision of clinical care. This summary normalizes information from multiple sources, and as a consequence, information in this document may materially change the coding, format and clinical context of patient data. In addition, data may be omitted in some cases. CLINICAL DECISIONS SHOULD BE BASED ON THE PRIMARY CLINICAL RECORDS. [employer] provides no warranty or guarantee of the accuracy or completeness of information in this document.
--- NOTE | 2024-02-06 21:21 | ECG_ITS ---
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
--- NOTE | 2024-02-06 21:44 | PC.NURSE ---
Petechiae noted to abdomen
--- NOTE | 2024-02-06 22:21 | ED_ITS ---
HPI - Extremity Problem General Chief complaint: Extremity Problem, Nontraumatic Stated complaint: SWELLING legs and hands Time Seen by Provider: 02/06/24 21:59 Source: patient Mode of arrival: Wheelchair Limitations: no limitations History of Present Illness HPI Narrative: patient presents with complicated history. States past history of cellulitis RLE many years ago. States he has been maintained on prophylactic Doxycycline per ID now for many years. Had dental extraction and was seen in follow up by dentist 2 weeks ago and informed the site was infected. Was started on antibiotic by dentist but not able to remember the name. Developed diarrhea once he started the new antibiotic. Completed antibiotics 4 days ago. Diarrhea continues. Yesterday and today describes shaking chills and also developed redness and swelling left leg yesterday that is worse today. Describes swelling of his hands that started yesterday and the swelling limits his ability to make a fist. Denies any current dental pain. No definite fever. Has a rash on his abdominal wall. 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 and is not able to feel below his knees Related Data Home Medications ?Medication ?Instructions ?Recorded ?Confirmed allopurinol 300 mg tablet 300 mg PO DAILY 02/06/24 02/06/24 aspirin 81 mg chewable tablet 81 mg PO DAILY 02/06/24 02/06/24 biotin 10,000 mcg capsule 10,000 mcg PO BID 02/06/24 02/06/24 dapagliflozin propanediol 10 mg 10 mg PO DAILY 02/06/24 02/06/24 tablet (Farxiga) doxycycline monohydrate 100 mg 100 mg PO Q24H 02/06/24 02/06/24 capsule fenofibrate 160 mg tablet 160 mg PO DAILY 02/06/24 02/06/24 ferrous sulfate 325 mg (65 mg 325 mg PO DAILY 02/06/24 02/06/24 iron) tablet (Feosol) gabapentin 300 mg capsule 300 mg PO Q12H 02/06/24 02/06/24 hydrochlorothiazide 25 mg tablet 25 mg PO DAILY 02/06/24 02/06/24 insulin detemir U-100 100 unit/mL 10 unit subcut BID 02/06/24 02/07/24 (3 mL) subcutaneous pen (Levemir FlexPen) losartan 100 1 tab PO DAILY 02/06/24 02/06/24 mg-hydrochlorothiazide 12.5 mg tablet lutein 20 mg tablet 20 mg PO DAILY 02/06/24 02/06/24 metformin 1,000 mg tablet 1,000 mg PO BID 02/06/24 02/06/24 metoprolol tartrate 50 mg tablet 50 mg PO BID 02/06/24 02/06/24 sodium bicarbonate 650 mg tablet 1,950 mg PO BID 02/06/24 02/06/24 spironolactone 25 mg tablet 25 mg PO Q12H 02/06/24 02/06/24 tamsulosin 0.4 mg capsule 0.4 mg PO Q24H 02/06/24 02/06/24 Allergies Allergy/AdvReac Type Severity Reaction Status Date / Time amoxicillin Allergy Intermediate Hives Verified 02/07/24 10:43 meperidine [From Demerol] AdvReac Chills Verified 02/07/24 10:43 Review of Systems ROS Status of ROS 10 or more systems reviewed and unremark able except as noted in history and below [facility] Medical History (Updated 02/07/24 @ 14:02 by Precious Swartz NP) BPH (benign prostatic hyperplasia) ?N40.0 - Benign prostatic hyperplasia without lower urinary tract symptoms (ICD-10) Hyperlipidemia ?E78.5 - Hyperlipidemia, unspecified (ICD-10) Gout ?M10.9 - Gout, unspecified (ICD-10) Petechiae ?R23.3 - Spontaneous ecchymoses (ICD-10) Chronic venous stasis ?I87.8 - Other specified disorders of veins (ICD-10) Type 2 diabetes mellitus with diabetic polyneuropathy ?E11.42 - Type 2 diabetes mellitus with diabetic polyneuropathy (ICD-10) Benign essential hypertension ?I10 - Essential (primary) hypertension (ICD-10) Type 2 diabetes mellitus with hyperglycemia ?E11.65 - Type 2 diabetes mellitus with hyperglycemia (ICD-10) BRETT (obstructive sleep apnea) ?G47.33 - Obstructive sleep apnea (adult) (pediatric) (ICD-10) Cellulitis ?L03.90 - Cellulitis, unspecified (ICD-10) PHT (portal hypertension) ?K76.6 - Portal hypertension (ICD-10) Neuropathy ?G62.9 - Polyneuropathy, unspecified (ICD-10) Diabetes ?E11.9 - Type 2 diabetes mellitus without complications (ICD-10) Blood clot in leg Cataracts, bilateral ?H26.9 - Unspecified cataract (ICD-10) Ureteral stent present ?Z96.0 - Presence of urogenital implants (ICD-10) Cellulitis of right foot ?L03.115 - Cellulitis of right lower limb (ICD-10) Kidney stones ?N20.0 - Calculus of kidney (ICD-10) Surgical History (Updated 02/07/24 @ 06:34 by Nikki Dunn RN) History of tooth extraction ?K08.409 - Partial loss of teeth, unspecified cause, unspecified class (ICD- 10) S/p bilateral blepharoplasty ?Z98.890 - Other specified postprocedural states (ICD-10) Hx of decompressive lumbar laminectomy ?Z98.890 - Other specified postprocedural states (ICD-10) History of ankle fusion ?Z98.1 - Arthrodesis status (ICD-10) History of rotator cuff surgery ?Z98.890 - Other specified postprocedural states (ICD-10) History of hernia repair ?Z98.890 - Other specified postprocedural states (ICD-10) ?Z87.19 - Personal history of other diseases of the digestive system (ICD-10) Family History (Updated 02/07/24 @ 04:25 by Nikki Dunn, CORDELL) Father Family history of cancer Family history of hypertension Mother Advanced cirrhosis of liver Family history of diabetes mellitus Social History (Updated 02/07/24 @ 04:27 by Nikki Dunn, CORDELL) Within the past year, how often did you have a drink containing alcohol: never Score interpretation: A score less than 4 is consistent with normal alcohol c onsumption. Smoking status: Never smoker Non-prescribed substance use: denies use Highest level of school completed/degree received: Associate degree: occupational, technical, vocational program Are you now , , , , never or living with a partner: In a typical week, how many times do you talk on the telephone with family, friends, or neighbors: 3 or more times per week How often do you get together with friends or relatives: 3 or more times per week Do you belong to any clubs or organizations such as buddhist groups unions, fraternal or athletic groups, or school groups: yes Little interest or pleasure in doing things: not at all Feeling down, depressed, or hopeless: not at all Feel stressed/tense/nervous/anxious/difficulty sleeping: not at all Do you think of yourself as: straight/heterosexual Gender Identity: male Exam Constitutional Vital Signs, click to edit/add: Last Vital Signs Temp 97.5 F L 02/07/24 16:42 Pulse 55 L 02/07/24 16:42 Resp 18 02/07/24 16:42 BP 139/72 02/07/24 16:42 Pulse Ox 92 L 02/07/24 16:42 O2 Del Method Room Air 02/07/24 16:42 Common normals: no apparent distress, average body habitus, oriented x3, no limitations, healthy appearing, alert and well nourished [facility] Common normals: normocephalic and head/scalp atraumatic Other: dental extraction site right upper molar with mild erythema Eye Common normals: EOMs intact bilaterally and conjunctivae normal Chest Common normals: inspection of chest normal and palpation of chest normal Respiratory Common normals: normal respiratory effort, no retractions, no use of accessory muscles and clear to auscultation bilaterally Cardio Common normals: regular rate, regular rhythm, S1 normal heart sound and S2 normal heart sound GI Common normals: Normal to inspection, nondistended, normoactive bowel sounds present, soft to palpation and non-tender Other: purpuric petechial rash lower abdominal wall. nontender Extremity Other: mild swelling of his hands and mild erythema dorsum of the hands. Right leg feels cool. left leg with erythema up toward his knee. Leg is warm Neuro Common normals: oriented x3, CN's II-XII intact bilaterally, moves all extremities and no focal motor deficits Psych Appearance: grossly normal Course Vital Signs Vital signs: Vital Signs Temperature 98.8 F 02/06/24 21:14 Pulse Rate 71 02/06/24 21:14 Respiratory Rate 22 H 02/06/24 21:14 Blood Pressure 148/71 H 02/06/24 21:14 Pulse Oximetry 100 02/06/24 21:14 Oxygen Delivery Method Room Air 02/06/24 21:14 Temperature 97.5 F L 02/07/24 16:42 Pulse Rate 55 L 02/07/24 16:42 Respiratory Rate 18 02/07/24 16:42 Blood Pressure 139/72 02/07/24 16:42 Pulse Oximetry 92 L 02/07/24 16:42 Oxygen Delivery Method Room Air 02/07/24 16:42 MDM - Extremity (Nontraumatic) MDM Narrative Medical decision making narrative: patient presents with cellulitis LLE. Also appears to possibly have an allergic reaction to explain the swelling and rash on the dorsum of both hands and prickly sensation of his face . He was treated with an antibiotic per his dentist but is not able to remember the name. Completed this antibiotic on the . Symptoms started on the . His left leg is swollen, erythematous , warm and painful despite diabetic neuropathy. Pain specifically at the left ankle. On initial exam his right leg felt cool with weak pulse. He did not complain of pain of this leg but because of this finding CTA abdomen with runoff was ordered. The study found no evidence of arterial stenosis or occlusion to the popliteal level. Trifurcation vessels patent proximally. Loss of contrast opacification noted in both lower extremities below the trifurcation and distal runoff not assessed. Patient re examined and his right leg is now warm. Discussed findings with travel accommodations rater vascular surgeon Dr Gotti and he felt the patient could be admitted here. The patient's only complaint remains left ankle pain. Patient treated with solumedrol and pepcid for possible drug allergic reaction to explain the swelling and rash of his hands. Given dose of clindamycin 950 IVPB. Additionally he has petechia of his lower abdominal wall with plt count 109. Lab Data Labs: Lab Results 02/06/24 02/06/24 02/07/24 Range/Units 21:36 22:56 01:57 WBC 3.1 L (4.0-11.0) 10^3/uL RBC 3.39 L (4.70-6.10) 10^6/uL Hgb 10.7 L (14.0-18.0) g/dL Hct 33.5 L (42.0-54.0) % MCV 98.8 H (80.0-94.0) fL MCH 31.6 (25.9-34.0) pg MCHC 31.9 (29.9-35.2) g/dL RDW 15.2 H (11.0-15.0) % Plt Count 109 L (150-450) 10^3/uL MPV 10.7 (9.5-13.5) fL Neut % (Auto) 76.2 H (43.0-75.0) % Lymph % (Auto) 7.5 L (20.5-60.0) % [place] % (Auto) 11.1 (1.7-12.0) % Eos % (Auto) 4.2 (0.9-7.0) % Baso % (Auto) 0.3 (0.2-2.0) % Neut # (Auto) 2.3 (1.4-6.5) 10^3/uL Lymph # (Auto) 0.2 L (1.2-3.8) 10^3/uL [place] # (Auto) 0.3 (0.3-0.8) 10^3/uL Eos # (Auto) 0.1 (0.0-0.7) 10^3/uL Baso # (Auto) 0.0 (0.0-0.1) 10^3/uL Abs Immat Gran (auto) 0.02 (0.00-0.03) 10^3/uL Imm/Tot Granulo (auto) 0.7 H (0.0-0.5) % ESR 56 H (<=20) mm/hr Sodium 140 (136-145) mmol/L Potassium 4.1 (3.5-5.1) mmol/L Chloride 102 (98-107) mmol/L Carbon Dioxide 26.0 (21.0-32.0) mmol/L Anion Gap 16.1 BUN 33.0 H (7.0-18.0) mg/dL Creatinine 1.46 H (0.70-1.30) mg/dL Est GFR ( Amer) 57 L (>=60) Est GFR (Non-Af Amer) 47 L (>=60) BUN/Creatinine Ratio 22.6 Glucose 252 H (74-106) mg/dL Lactate 3.6 H* 1.8 (0.4-2.0) mmol/L Calcium 9.7 (8.5-10.1) mg/dL Total Bilirubin 0.9 (0.2-1.0) mg/dL AST 77 H (15-37) U/L ALT 80 H (16-63) U/L Alkaline Phosphatase 99 (46-116) U/L Troponin I High Sens 9.5 (4.0-76.1) pg/mL C-Reactive Protein 8.36 H (<=0.50) mg/dL Total Protein 6.2 L (6.4-8.2) g/dL Albumin 3.0 L (3.4-5.0) g/dL Globulin 3.2 g/dL Albumin/Globulin Ratio 0.9 Procalcitonin 0.57 H (0.00-0.50) ng/mL Urine Color (YELLOW) Urine Clarity (CLEAR) Urine pH (5.0-9.0) Ur Specific [place] (1.005-1.025) Urine Protein (NEG/TRACE) mg/dL Urine Glucose (UA) (NEGATIVE) mg/dL Urine Ketones (NEGATIVE) mg/dL Urine Occult Blood (NEGATIVE) Urine Nitrite (NEGATIVE) Urine Bilirubin (NEGATIVE) Urine Urobilinogen (0.2-1.0) EU/dL Ur Leukocyte Esterase (NEGATIVE) Urine RBC (0-2) #/HPF Urine WBC (NONE SEEN) #/HPF Ur Squamous Epith Cells (NONE/RARE) #/LPF Urine Crystals (None Seen) #/HPF Urine Bacteria (NONE SEEN) #/HPF Urine Casts (NONE SEEN) #/LPF Urine Mucus (NONE SEEN) 02/07/24 Range/Units 02:30 WBC (4.0-11.0) 10^3/uL RBC (4.70-6.10) 10^6/uL Hgb (14.0-18.0) g/dL Hct (42.0-54.0) % MCV (80.0-94.0) fL MCH (25.9-34.0) pg MCHC (29.9-35.2) g/dL RDW (11.0-15.0) % Plt Count (150-450) 10^3/uL MPV (9.5-13.5) fL Neut % (Auto) (43.0-75.0) % Lymph % (Auto) (20.5-60.0) % [place] % (Auto) (1.7-12.0) % Eos % (Auto) (0.9-7.0) % Baso % (Auto) (0.2-2.0) % Neut # (Auto) (1.4-6.5) 10^3/uL Lymph # (Auto) (1.2-3.8) 10^3/uL [place] # (Auto) (0.3-0.8) 10^3/uL Eos # (Auto) (0.0-0.7) 10^3/uL Baso # (Auto) (0.0-0.1) 10^3/uL Abs Immat Gran (auto) (0.00-0.03) 10^3/uL Imm/Tot Granulo (auto) (0.0-0.5) % ESR (<=20) mm/hr Sodium (136-145) mmol/L Potassium (3.5-5.1) mmol/L Chloride (98-107) mmol/L Carbon Dioxide (21.0-32.0) mmol/L Anion Gap BUN (7.0-18.0) mg/dL Creatinine (0.70-1.30) mg/dL Est GFR ( Amer) (>=60) Est GFR (Non-Af Amer) (>=60) BUN/Creatinine Ratio Glucose (74-106) mg/dL Lactate (0.4-2.0) mmol/L Calcium (8.5-10.1) mg/dL Total Bilirubin (0.2-1.0) mg/dL AST (15-37) U/L ALT (16-63) U/L Alkaline Phosphatase (46-116) U/L Troponin I High Sens (4.0-76.1) pg/mL C-Reactive Protein (<=0.50) mg/dL Total Protein (6.4-8.2) g/dL Albumin (3.4-5.0) g/dL Globulin g/dL Albumin/Globulin Ratio Procalcitonin (0.00-0.50) ng/mL Urine Color Yellow (YELLOW) Urine Clarity Clear (CLEAR) Urine pH 7.5 (5.0-9.0) Ur Specific [place] 1.010 (1.005-1.025) Urine Protein Trace (NEG/TRACE) mg/dL Urine Glucose (UA) 250 A (NEGATIVE) mg/dL Urine Ketones Negative (NEGATIVE) mg/dL Urine Occult Blood Negative (NEGATIVE) Urine Nitrite Negative (NEGATIVE) Urine Bilirubin Negative (NEGATIVE) Urine Urobilinogen 2.0 A (0.2-1.0) EU/dL Ur Leukocyte Esterase Negative (NEGATIVE) Urine RBC 0-2 (0-2) #/HPF Urine WBC 2-5 A (NONE SEEN) #/HPF Ur Squamous Epith Cells Rare (NONE/RARE) #/LPF Urine Crystals None seen (None Seen) #/HPF Urine Bacteria None seen (NONE SEEN) #/HPF Urine Casts None seen (NONE SEEN) #/LPF Urine Mucus None seen (NONE SEEN) Imaging Data Abdominal x-ray: Radiologist's impression: ITS Impressions Aorta w/Runoff CTA 02/06/24 23:42 IMPRESSION: 1. There is no evidence of arterial stenosis or occlusion to the popliteal level. Calf vessels are not assessed in diagnostic detail due to poor contrast opacification. 2. Technically limited study due to severe obesity. Soft tissues of the flank as well as a portion of the ascending colon are outside the field of view. 3. Cardiomegaly. 4. Cirrhosis and splenomegaly compatible with portal hypertension. 5. Small left adrenal nodule of indeterminate clinical significance. Mildly enlarged slick hepatic lymph nodes. 6. There is a beaded appearance of the celiac artery which is nonspecific. This type of vascular morphology can be seen in the setting of fibromuscular dysplasia. 7. Severe muscle atrophy is present below the knees bilaterally. 8. 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 There is severe lumbar degenerative disease as well. 9. Multiple varicosities are present in the abdomen likely due to portal hypertension. IVC patency is not assessed due to contrast phase although the vessel appears normal caliber. 10. Cholelithiasis. Electronically authenticated by: EARL AGUIRRE Date: 02/07/2024 03:14 Discharge Plan Discharge Chief Complaint: Extremity Problem, Nontraumatic Clinical Impression: Allergic drug rash, Cellulitis, Petechiae, PHT (portal hypertension) Patient Disposition: Admitted As Inpatient Time of Disposition Decision: 03:18 Condition: Fair Discharge Date/Time: 02/07/24 03:55
[2024-02-06 22:39] LABS: Basophils Percent Auto 0.3 % (0.2-2.0); Eosinophils Absolute Auto 0.1 10^3/uL (0.0-0.7); Eosinophils Percent Auto 4.2 % (0.9-7.0); Hematocrit 33.5 % (42.0-54.0); Hemoglobin 10.7 g/dL (14.0-18.0); Immature Granulocytes Abs Auto 0.02 10^3/uL (0.00-0.03); Immature Granulocytes Pct Auto 0.7 % (0.0-0.5); Lymphocytes Absolute Auto 0.2 10^3/uL (1.2-3.8); Lymphocytes Percent Auto 7.5 % (20.5-60.0); Mean Corpuscular HGB Conc 31.9 g/dL (29.9-35.2); Mean Corpuscular Hemoglobin 31.6 pg (25.9-34.0); Mean Corpuscular Volume 98.8 fL (80.0-94.0); Mean Platelet Volume 10.7 fL (9.5-13.5); Monocytes Absolute Auto 0.3 10^3/uL (0.3-0.8); Monocytes Percent Auto 11.1 % (1.7-12.0); Neutrophils Absolute Auto 2.3 10^3/uL (1.4-6.5); Neutrophils Percent Auto 76.2 % (43.0-75.0); Platelet Count 109 10^3/uL (150-450); Red Blood Count 3.39 10^6/uL (4.70-6.10); Red Cell Distribution Width 15.2 % (11.0-15.0); White Blood Count 3.1 10^3/uL (4.0-11.0)
[2024-02-06] MEDS: 0.9 % SODIUM CHLORIDE 1,000 ML 999 ML IV (22:39)
[2024-02-06 22:51] LABS: Erythrocyte Sedimentation Rate 56 mm/hr (<=20)
[2024-02-06 22:57] LABS: Troponin I High Sensitivity 9.5 pg/mL (4.0-76.1)
[2024-02-06 23:06] LABS: Alanine Aminotransferase 80 U/L (16-63); Albumin Globulin Ratio 0.9; Alkaline Phosphatase 99 U/L (46-116); Anion Gap 16.1; Aspartate Amino Transferase 77 U/L (15-37); BUN Creatinine Ratio 22.6; Bilirubin Total 0.9 mg/dL (0.2-1.0); C Reactive Protein 8.36 mg/dL (<=0.50); Calcium 9.7 mg/dL (8.5-10.1); Chloride 102 mmol/L (98-107); Estimated GFR (African America 57 (>=60); Estimated GFR (Non-African Ame 47 (>=60); Globulin 3.2 g/dL; Glucose 252 mg/dL (74-106); Potassium 4.1 mmol/L (3.5-5.1); Sodium 140 mmol/L (136-145); Total Protein 6.2 g/dL (6.4-8.2)
[2024-02-06 23:11] LABS: PROCALCITONIN 0.57 ng/mL (0.00-0.50)
[2024-02-06] MEDS: CLINDAMYCIN PHOSPHATE/D5W 900 MG/50 ML PIGGYBACK 100 MG IV (23:11)
[2024-02-06] MEDS: METHYLPREDNISOLONE SOD SUCC PF 125 MG/2 ML VIAL IVP (23:11)
[2024-02-06 23:24] LABS: Lactate/Lactic Acid 3.6 mmol/L (0.4-2.0)
--- NOTE | 2024-02-06 23:42 | CT_ITS ---
The [address] [address] Patient Name: DUARTE ABRAHAM MRN: [id number] date: 1950 Sex: M Assigned Patient Location: ER Current Patient Location: ER Accession/Order Number: [id number] Exam Date: 02/06/2024 23:59 Report Date: 02/07/2024 03:14 At the request of: OZIEL VALADEZ Procedure: CT angio abd aorta runoff EXAM: CT ANGIO ABD AORTA RUNOFF HISTORY: Cold right leg. COMPARISON: None. TECHNIQUE: CTA performed to the lung bases through the lower extremities with IV contrast. FINDINGS: Lung bases are clear. Heart is enlarged. No pleural or pericardial fluid. Images of the abdomen and pelvis are limited due to severe obesity. This results in significant loss of image resolution as well as exclusion of the lateral flank regions from the yloed-ya-onay. There is a small adrenal nodule on the left side, measuring 2.2 x 1.3 cm. No obstructive uropathy. No periaortic lymphadenopathy. There are mildly prominent lymph nodes present in the slick hepatis, the largest measuring 3.3 x 2.0 cm. Liver is nodular. There are gallstones present. Spleen measures 20 cm in cephalocaudad dimension. No bowel obstruction, pneumatosis, or pneumoperitoneum. There are multiple varicosities present in the mesentery and retroperitoneum right greater than left. A portion of the ascending colon is outside the [id number]-pb-iips. The appendix is normal. The prostate is enlarged, measuring 7 cm. Bladder is decompressed. The abdominal aorta is normal in course and caliber. No aneurysm or dissection. SMA, JORDY, celiac arteries are patent. There is a beaded morphology of the celiac artery noted seen best on image 52 of sequence 4. Renal arteries appear patent. The bilateral common internal and external iliac arteries are patent. Bilateral SFA and profunda are patent. Bilateral popliteal arteries are patent. The trifurcation vessels are patent proximally. There is loss of contrast opacification noted in both lower extremities below the trifurcation and distal runoff is not assessed. There is severe muscle atrophy present below the knees. Profound multilevel lumbar degenerative disc disease and facet arthropathy noted. There is end-stage arthritic disease present in the left ankle likely due to neuropathic disease. CT/CT angio abd aorta runoff IMPRESSION: 1. There is no evidence of arterial stenosis or occlusion to the popliteal level. Calf vessels are not assessed in diagnostic detail due to poor contrast opacification. 2. Technically limited study due to severe obesity. Soft tissues of the flank as well as a portion of the ascending colon are outside the field of view. 3. Cardiomegaly. 4. Cirrhosis and splenomegaly compatible with portal hypertension. 5. Small left adrenal nodule of indeterminate clinical significance. Mildly enlarged slick hepatic lymph nodes. 6. There is a beaded appearance of the celiac artery which is nonspecific. This type of vascular morphology can be seen in the setting of fibromuscular dysplasia. 7. Severe muscle atrophy is present below the knees bilaterally. 8. 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 There is severe lumbar degenerative disease as well. 9. Multiple varicosities are present in the abdomen likely due to portal hypertension. IVC patency is not assessed due to contrast phase although the vessel appears normal caliber. 10. Cholelithiasis. Electronically authenticated by: EARL AGUIRRE Date: 02/07/2024 03:14
[2024-02-07] VITALS (28 sets, daily range): BP systolic 120–146; BP diastolic 62–84; PULSE 47–80; TEMP 36.3–36.8; O2SAT 86–98; BMI 37.8
[2024-02-07 02:18] LABS: Lactate/Lactic Acid 1.8 mmol/L (0.4-2.0)
[2024-02-07 02:38] LABS: Bilirubin Urine NEGATIVE (NEGATIVE); Blood Urine NEGATIVE (NEGATIVE); Clarity Urine CLEAR (CLEAR); Color Urine YELLOW (YELLOW); Glucose Urine UA 250 mg/dL (NEGATIVE); Ketones Urine NEGATIVE (NEGATIVE); Leukocyte Esterase Urine NEGATIVE (NEGATIVE); Nitrite Urine NEGATIVE (NEGATIVE); Protein Urine TRACE mg/dL (NEG/TRACE); pH Urine 7.5 (5.0-9.0)
[2024-02-07 02:45] LABS: Bacteria Urine NONE SEEN #/HPF (NONE SEEN); Cast Seen? NONE SEEN #/LPF (NONE SEEN); Crystals Seen? None Seen #/HPF (None Seen); Mucus Urine NONE SEEN (NONE SEEN); RBC Urine 0-2 #/HPF (0-2); Squamous Epithelial Cell Urine RARE #/LPF (NONE/RARE)
[2024-02-07] MEDS: FENTANYL CITRATE/PF 100 MCG/2 ML VIAL 50 MCG IV (03:21)
[2024-02-07] MEDS: FAMOTIDINE/PF 20 MG/2 ML VIAL IV (03:39)
--- OUTSIDE RECORDS SUMMARY | 2024-02-07 04:03 | XMS_ITS | CCD ---
Author Organization [facility] Care Team Providers Care Crm Marketing Specialist Name Role Phone Khoa Bowles Primary Care Provider Leopoldo Frye Attending Provider Elder Qiu Attending [...] Unavailable BEACH ., DR WALLACE Admitting Unavailable RIDGE, DR TALI Jeffries Consulting Unavailable BEACH ., DR WALLACE Consulting Unavailable HEMEYER ., DR QUINTEROS Primary Care Unavailable BEACH ., DR WALLACE Attending Unavailable BEACH ., DR WALLACE Admitting Unavailable MD Khoa Bowles Primary Care Provider MARIZOL Ryan Attending Provider NINA, Jude R [...] Primary Care Provider Jude Beach MD Unavailable Preet Enrique DPM Unavailable [phone] Allergies Allergy Classification Reported Allergen(s) Allergy Type Date of Onset Reaction(s) Facility Opioid Agonists (1 source) Meperidine Drug Allergy 1 [facility] (4 sources) Meperidine / Promethazine; Translations: [meperidine-prome thazine] Drug Allergy Unknown (qualifier value) [facility] (5 sources) Meperidine; Translations: [meperidine] Drug Allergy 4 Tremor (finding) [facility] (2 sources) Meperidine Drug Allergy 3 [facility] (2 sources) pioglitazone Drug Allergy 3 [facility] (1 source) Doxycycline; Translations: [doxycycline] Drug Allergy [facility] (1 source) Meperidine Drug Allergy 1 [facility] (1 source) Meperidine Drug Allergy 2 [facility] (1 source) pioglitazone Drug Allergy 3 Swelling [...] Daily, # 90 tab(s), Refills(s) 3, Pharmacy: [facility]/pharmacy #[id number], 185, cm, 12/22/21 12:11:00 EST, Height/Length Dosing, 136.7, kg, 12/22/21 12:11:00 EST, Weight Dosing Start Date: 12/30/22 Status: Ordered Start: 11-09-2018 take 1 tablet by noemi th once daily allopurinol 300 mg Tab 300 mg = 1 tab(s), Oral, Daily, # 90 tab(s), Refills(s) 3, Pharmacy: [facility]/pharmacy #[id number], 185, cm, 09/15/21 11:40:00 EST, Height/Length [...] oral capsule (3 sources) Start: 11-09-2018 take 72477 ug by mouth twice daily Biotin Active 73090 MCG PO Twice daily November 09, 2018 3:30pm biotin 29533 MCG tablet 1 (one) time each day [...] day(s), # 90 tab(s), Refills(s) 0, Pharmacy: [facility]/pharmacy #[id number], 185, cm, 12/22/21 12:11:00 EST, Height/Length [...] BID, # 180 tab(s), Refills(s) 11, Pharmacy: [facility]/pharmacy #[id number], 185, cm, 12/22/21 12:11:00 EST, Height/Length Dosing, 136.7, kg, 12/22/21 12:11:00 EST, Weight Dosing Start Date: 11/08/22 Status: Ordered Start: 11-05-2021 End: 10-31-2022 take 3 tablets by mouth twice daily sodium bicarbonate 650 mg Tab 1,950 mg = 3 tab(s), Oral, BID, X 90 day(s), # 540 tab(s), Refills(s) 3, [id number] 185, cm, 09/15/21 11:40:00 EST, [...] Daily, # 90 cap(s), Refills(s) 3, Pharmacy: [facility]/pharmacy #[id number], 185, cm, 12/22/21 12:11:00 EST, Height/Length Dosing, 136.7, kg, 12/22/21 12:11:00 EST, Weight Dosing Start Date: 12/30/22 Status: Ordered Start: 11-09-2018 take 1 capsule by mo uth once daily tamsulosin 0.4 mg Cap 0.4 mg = 1 cap(s), Oral, Daily, # 90 cap(s), Refills(s) 3, Pharmacy: [facility]/pharmacy #[id number], 185, cm, 12/22/21 12:11:00 EST, Height/Length [...] unguium] 12-09-2023 Episodic Other aftercare (1 source) detention (current) use of anticoagulants; Translations: [LONGTERM CURRNT USE ANTICOAGULANTS] Onset: 3 Episodic Other aftercare (1 source) detention (current) use of oral hypoglycemic drugs; Translations: [LONGTERM USE ORAL HYPOGLYCEMIC DX] Onset: 3 Episodic Other aftercare (1 source) 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 (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) drug therapy; Translations: [OTH LONGTERM CURRENT DRUG THERAPY] Onset: 3 Episodic Other [...] aftercare (1 source) Polypharmacy ; Translations: [Other fci (current) drug therapy] Onset: 08-05-2021 07-28-2023 Episodic [...] mri xrayon 08-05 XR pre/post mri xray [facility] [address] MRI Report Signed with Addenda Patient: Manuel Balderas MR#: [id number] : 1950 Acct:[id number] Age/Sex: 73 / M ADM Date: 08/05/23 Loc: [facility] Room: Type: [facility] Attending Dr: Yaquelin Ryan PA-C Copies to: Yaquelin Ryan PA-C Ordering Provider: Yaquelin Ryan PA-C Date of Service: 08/05/23 MR/MR lumbar spine wo con: [id number] ([id number]) XR/XR pre/post mri xray: LUMBAR MRI ADDENDUM 1 Addendum for exhibit designer error: L1-L2: Diffuse broad-based disc bulge is present with ligamentum flavum hypertrophy and facet joint degenerative changes causing moderate canal and bilateral neural foraminal stenosis. Impression dictated by: Rickie Cornejo Jr., D.OSiria09/21/2023 12:23 PM Dictation Location: [place] [address] Addendum Dictated By: Rickie Cornejo Jr, DO [...] Cornejo Jr., D.OSiria08/05/2023 3:00 PM Dictation Location: [facility]-- Transcribed By: [facility] 08/05/23 1500 Dictated By: Rickie Cornejo Jr, DO 08/05/23 1454 Signed By: 08/05/23 1500 [facility] Lab Reportson 07-30-2023 Lab Reports [id number] D:[address] [facility] Screenson 07-22-2023 Screens [id number] CD:[address] [facility] Ambulatory Visit Summaryon 0 07-21-2023 Ambulatory Visit Summary MANUEL BALDERAS Joaquín :1950 Visit Date:07/21/2023 Ambulatory Visit Instructions Your Diagnosis Kidney stones Elevated PSA BPH with urinary obstruction Family history of prostate cancer in father Tests Performed Urnls Dip Stick Auto w/o Microscopy POC 41248 XR Abdomen 1 View -- Results Pending [...] LEVY, Jude Crespo Where: [facility] Patient Educationon 07-21-20 Patient Education [...] ? 8 oz (237 mL) of milk, njlgpja-ertisjaycjqg-nx iry milk, and calcium-fortifiedfruit juice. Calcium-fortified means [...] Spinach (cooked), rhubarb, beets, sweet potatoes, and Moldovan chard. ? Peanuts. ? Potato chips, uruguayan fries, and baked potatoes with skin on. ? Nuts and nut products. ? Chocolate. ? If you regularly take a diuretic medicine, make sure to eat at least 1 or 2 servings of fruits or vegetables that are high in potassium each day. These include: ? Avocado. ? Banana. ? Bailey, prune, carrot, or tomato juice. ? Baked [...] fish oil, or vitamin B6. ? Take qhsx-pze-umysmdv and prescription medicines only as told by your health care provider. These include supplements. What foods should I limit? Limit your in (more content not included)... Normal [facility] Urology Office/Clinic Noteon 07-21-2023 Urology Office/Clinic [...] [facility] [address] , [place] [address]- Additional Instructions: 1 yr KUB Patient Education [...] Cystoscopic insertio (more content not included)... Normal [facility] Comment on above: Result Comment: Elec tronically Signed By: NINA LEVY, Jude Crespo\.br\Date and Time Signed: 07/21/23 14:12 EDT\.br\Electronically Co-Signed By: Kenzie Fierro\.br\Date and Time Co-Signed: 07/21/23 14:08 EDT\.br\Electronically Co-Signed By: Kenzie Fierro\.br\Date and Time Co-Signed: 07/21/23 14:10 EDT RAD - MISCon 07-20-2023 RAD - MISC [id number] :[address] [facility] Lab Reportson 02-15-2023 Lab Reports [id number] D:[address] [facility] CITRATE URINE 24HRon 023 Citric Acid, U, 24hr 1042 mg/24 hr Normal 320-1240 [facility] Comment on above: Result Comment: This test was developed and its performance characteristics determined by [facility]. It has not been cleared or approved by the Food and Drug Administration. Performed By: #### C BC #### [facility] [address] [place] [address] Dr. Cleveland Snowden Citric Acid, Urine 731 mg/L Normal Undefined [facility] Comment on above: Performed By: #### C BC #### [facility] [address] [place] [address] [address] Cleveland Snowden OXALATE 24HR URINEon 023 Oxalates, Urine 19 mg/L Normal Undefined [facility] Comment on above: Performed By: #### C BC #### [facility] [address] [place] [address] Dr. Cleveland Snowden Oxalates, Urine 24hr 27 mg/24 hr Normal 7-44 [facility] Comment on above: Performed By: #### C BC #### [facility] [address] [place] [address] Dr. Cleveland Snowden MAGNESIUM 24HR URINEon 02-05 Magnesium 24hr Urine 82.7 mg/24 hr Normal 12.0-293.[address] [facility] Comment on above: Performed By: #### C BC #### [facility] [address] [place] [address] Dr. Cleveland Snowden Magnesium UR 5.8 mg/dL Normal Not Estab. [facility] Comment on above: Performed By: #### C BC #### [facility] [address] [place] [address] Dr. Cleveland Snowden PHOSPHORUS 24HR URINEon Phosphorus, Urine 59.7 mg/dL Normal Not Estab. [facility] Comment on above: Performed By: #### P T, PTT #### [facility] [address] [place] [address] Dr. Cleveland Snowden Phosphorus, Urine 24hr 851 mg/24 hr Normal 390-1425 [facility] Comment on above: Performed By: #### P T, PTT #### [facility] [address] [place] [address] Dr. Cleveland Snowden PTH INTACTon 02-05-2023 PTH, Intact 18 pg/mL Normal 15-65 [facility] Comment on above: Performed By: #### P THINT #### [facility] [address] [place] [address] Dr. Cleveland Snowden URIC ACID 24 HR URINEon Uric Acid, Urine 36.4 mg/dL Normal Not Estab. [facility] Comment on above: Performed By: #### P T, PTT #### [facility] [address] [place] [address] Dr. Cleveland Snowden Uric Acid, Urine 24hr 518.7 mg/24 hr Normal 136.1-771.1 [facility] Comment on above: Performed By: #### P T, PTT #### [facility] [address] [place] [address] Dr. Cleveland Snowden BUNon 02-04-2023 Urea nitrogen [Mass/Vol] 22.0 mg/dL Critically high 7.0-18.0 [facility] Comment on above: Performed By: #### C BC #### [facility] [address] [place] [address] Dr. Cleveland Snowden CALCIUMon 02-04-2023 Calcium [Mass/Vol] 9.7 mg/dL Normal 8.5-10.1 [facility] Comment on above: Performed By: #### C BC #### [facility] [address] [place] [address] Dr. Cleveland Snowden CALCIUM 24 HR URINEon 2022 CALC, 24 HR UR 84.1 mg/24 hr Critically low 100.0-300.0 [facility] Comment on above: Performed By: #### C [id number] #### [facility] [address] [place] [address] Dr. Cleveland Snowden UR CALCIUM 5.9 mg/dL Normal 5.1-21.0 [facility] Comment on above: Performed By: #### C ALC24U #### [facility] [address] [place] [address] Dr. Cleveland Snowden UR TOT VOL 1425 ml/24 HR Normal [facility] Comment on above: Performed By: #### C ALC24U #### [facility] [address] [place] [address] Dr. Cleveland Snowden Performed By: #### C REA24U, NA24U #### [facility] [address] [place] [address] Dr. Cleveland Snowden Performed By: #### P T, PTT #### [facility] [address] [place] [address] Dr. Cleveland Snowden CHLORIDEon 02-04-2023 Chloride [Moles/Vol] 107 mmol/L Normal 98-107 [facility] Comment on above: Performed By: #### C BC #### [facility] [address] [place] [address] Dr. Cleveland Snowden CO2on 02-04-2023 CO2 [Moles/Vol] 33.7 mmol/L Critically high 21.0-32.0 [facility] Comment on above: Performed By: #### A 1C #### [facility] [address] [place] [address] Dr. Cleveland Snowden CREA 24 HR URINEon 3 CREA, 24 HR UR 1115.21 mg/24 hr Normal 1,000.00- 2,00 0.00 [facility] Comment on above: Performed By: #### P T, PTT #### [facility] [address] [place] [address] Dr. Cleveland Snowden URINE CREAT 78.26 mg/dL Normal 20.00-300.00 [facility] Comment on above: Performed By: #### P T, PTT #### [facility] [address] [place] [address] Dr. Cleveland Snowden CREATININEon 02-04-2023 Creatinine [Mass/Vol] 0.91 mg/dL Normal 0.70-1.30 [facility] Comment on above: Performed By: #### A 1C #### [facility] [address] [place] [address] Dr. Cleveland Snowden EGFR-AF [facility] >60 Normal >=60 [facility] Comment on above: Performed By: #### A 1C #### [facility] [address] [place] [address] Dr. Cleveland Snowden EGFR-NON AF [facility] >60 Normal >=60 [facility] Comment on above: Performed By: #### A 1C #### [facility] [address] [place] [address] Dr. Cleveland Snowden NAon 02-04-2023 Sodium [Moles/Vol] 144 mmol/L Normal 136-145 [facility] Comment on above: Performed By: #### C BC #### [facility] [address] [place] [address] Dr. Cleveland Snowden POTASSIUMon 02-04-2023 Potassium [Moles/Vol] 4.1 mmol/L Normal 3.5-5.1 [facility] Comment on above: Performed By: #### A 1C #### [facility] [address] [place] [address] Dr. Cleveland Snowden SODIUM 24 HR URINEon 023 NA, 24 HR UR 221 mmol/24 hr Critically high 40-220 [facility] Comment on above: Performed By: #### C REA24U, NA24U #### [facility] [address] [place] [address] Dr. Cleveland Snowden Sodium (U) [Moles/Vol] 155 mmol/L Critically high 30-90 [facility] Comment on above: Performed By: #### C REA24U, NA24U #### [facility] [address] [place] [address] Dr. Cleveland Snowden URIC ACID SERUMon 02-04-2023 Urate [Mass/Vol] 4.3 mg/dL Normal 3.5-7.2 [facility] Comment on above: Performed By: #### C BC #### [facility] [address] [place] [address] Dr. Cleveland Snowden Physician Orderon 02-02-2023 Physician Order [id number] D:[address] [facility] Lab Reportson 01-26-2023 Lab Reports [id number] D:[address] [facility] RAD - MISCon 01-26-2023 RAD - MISC [id number] D:[address] [facility] Operative Reporton Operative Report [id number] D:[address] [facility] POINT OF CARE GLUCOSEon 12-30 Glucose [Mass/Vol] 237 mg/dL Critically high 74-106 [facility] Comment on above: Performed By: #### P T, PTT #### [facility] [address] [place] [address] Dr. Cleveland Snowden XR KUB 1 VIEWon [...] by: ISAK CORTEZ Date: 2023-01-14 08:37 Normal [facility] RAD - MISCon 01-11-2023 RAD - MISC [id number] D:[address] [facility] CBC AUTO DIFFon 01-08-2023 BASO # 0.0 103/ul Normal 0.0-0.1 [facility] Comment on above: Performed By: #### C BC #### [facility] [address] [place] [address] Dr. Cleveland Snowden Basophils/100 WBC (Bld) 0.4 % Normal 0.2-2.0 [facility] Comment on above: Performed By: #### C BC #### [facility] [address] [place] [address] Dr. Celveland Snowden EO # 0.2 103/ul Normal 0.0-0.7 [facility] Comment on above: Performed By: #### C BC #### [facility] [address] [place] [address] Dr. Cleveland Snowden Eosinophils/100 WBC (Bld) 4.4 % Normal 0.9-7.0 [facility] Comment on above: Performed By: #### C BC #### [facility] [address] [place] [address] Dr. Cleveland Snowden Erythrocyte distribution width (RBC) [Ratio] 14.8 % Normal 11.0-15.0 [facility] Comment on above: Performed By: #### C BC #### [facility] [address] [place] [address] Dr. Cleveland Snowden Hematocrit (Bld) [Volume fraction] 35.7 % Critically low 42.0-54.0 [facility] Comment on above: Performed By: #### C BC #### [facility] [address] [place] [address] Dr. Cleveland Snowden Hemoglobin (Bld) [Mass/Vol] 12.0 g/dL Critically low 14.0-18.0 [facility] Comment on above: Performed By: #### C BC #### [facility] [address] [place] [address] Dr. Cleveland Snowden IG # 0.03 10e3/ul Normal 0.00-0.03 [facility] Comment on above: Performed By: #### C BC #### [facility] [address] [place] [address] Dr. Cleveland Snowden IG % 0.6 % Critically high 0.0-0.[address] [facility] Comment on above: Performed By: #### C BC #### [facility] [address] [place] [address] Dr. Cleveland Snowden LYMPH # 0.7 103/ul Critically low 1.2-3.8 [facility] Comment on above: Performed By: #### C BC #### [facility] [address] [place] [address] Dr. Cleveland Snowden Lymphocytes/100 WBC (Bld) 14.4 % Critically low 20.5-60.0 [facility] Comment on above: Performed By: #### C BC #### [facility] [address] [place] [address] Dr. Cleveland Snowden MANUAL DIFF REQ NO Normal [facility] Comment on above: Performed By: #### C BC #### [facility] [address] [place] [address] Dr. Cleveland Snowden MCH (RBC) [Entitic mass] 31.1 pg Normal 25.9-34.0 [facility] Comment on above: Performed By: #### C BC #### [facility] [address] [place] [address] Dr. Cleveland Sonwden MCHC (RBC) [Mass/Vol] 33.6 g/dL Normal 29.9-35.2 [facility] Comment on above: Performed By: #### C BC #### [facility] [address] [place] [address] Dr. Cleveland Snowden MCV (RBC) [Entitic vol] 92.5 fL Normal 80.0-94.0 [facility] Comment on above: Performed By: #### C BC #### [facility] [address] [place] [address] Dr. Cleveland Snowden MONO # 0.5 103/ul Normal 0.3-0.8 [facility] Comment on above: Performed By: #### C BC #### [facility] [address] [place] [address] Dr. Cleveland Snowden Monocytes/100 WBC (Bld) 11.0 % Normal 1.7-12.0 [facility] Comment on above: Performed By: #### C BC #### [facility] [address] [place] [address] Dr. Cleveland Snowden NEUT # 3.3 103/ul Normal 1.4-6.5 [facility] Comment on above: Performed By: #### C BC #### [facility] [address] [place] [address] Dr. Cleveland Snowden Neutrophils/100 WBC (Bld) 69.2 % Normal 43.0-75.0 [facility] Comment on above: Performed By: #### C BC #### [facility] [address] [place] [address] Dr. Cleveland Snowden Platelet mean volume (Bld) [Entitic vol] 10.0 fL Normal 9.5-13.5 [facility] Comment on above: Performed By: #### C BC #### [facility] [address] [place] [address] Dr. Cleveland Snowden PLT 105 103/ul Critically low 150-450 [facility] Comment on above: Performed By: #### C BC #### [facility] [address] [place] [address] Dr. Cleveland Snowden RBC 3.86 106/ul Critically low 4.70-6.10 [facility] Comment on above: Performed By: #### C BC #### [facility] [address] [place] [address] Dr. Cleveland Snowden WBC 4.8 103/ul Normal 4.0-11.0 [facility] Comment on above: Performed By: #### C BC #### [facility] [address] [place] [address] Dr. Cleveland Snowden PROF CHEM 8 (BAS METB)on Anion gap [Moles/Vol] 12.7 mmol/L Normal [facility] Comment on above: Performed By: #### C BC #### [facility] [address] [place] [address] Dr. Cleveland Snowden Calcium [Mass/Vol] 9.6 mg/dL Normal 8.5-10.1 [facility] Comment on above: Performed By: #### C BC #### [facility] [address] [place] [address] Dr. Cleveland Snowden Chloride [Moles/Vol] 107 mmol/L Normal 98-107 [facility] Comment on above: Performed By: #### C BC #### [facility] [address] [place] [address] Dr. Cleveland Snowden CO2 [Moles/Vol] 29.0 mmol/L Normal 21.0-32.0 [facility] Comment on above: Performed By: #### C BC #### [facility] [address] [place] [address] Dr. Cleveland Snowden Creatinine [Mass/Vol] 0.76 mg/dL Normal 0.70-1.30 [facility] Comment on above: Performed By: #### C BC #### [facility] [address] [place] [address] Dr. Cleveland Snowden EGFR-AF [facility] >60 Normal >=60 [facility] Comment on above: Performed By: #### C BC #### [facility] [address] [address] [address] Cleveland Snowden EGFR-NON AF [facility] >60 Normal >=60 [facility] Comment on above: Performed By: #### C BC #### [facility] [address] [address] [address] Cleveland Snowden Glucose [Mass/Vol] 127 mg/dL Critically high 74-106 [facility] Comment on above: Performed By: #### C BC #### [facility] [address] [address] [address] Cleveland Snowden Potassium [Moles/Vol] 3.7 mmol/L Normal 3.5-5.1 [facility] Comment on above: Performed By: #### C BC #### [facility] [address] [address] [address] Cleveland Snowden Sodium [Moles/Vol] 145 mmol/L Normal 136-145 [facility] Comment on above: Performed By: #### C BC #### [facility] [address] [address] [address] Cleveland Snowden Urea nitrogen [Mass/Vol] 21.0 mg/dL Critically high 7.0-18.0 [facility] Comment on above: Performed By: #### C BC #### [facility] [address] [address] [address] Cleveland Snowden Urea nitrogen/Creatinine [Mass ratio] 27.6 mg/mg Normal [facility] Comment on above: Performed By: #### C BC #### [facility] [address] [address] [address] Cleveland Snowden PROTIMEon 01-08-2023 INR Coag (PPP) [Relative time] 1.04 {INR} Normal [facility] Comment on above: Performed By: #### P T, PTT #### [facility] [address] [address] [address] Cleveland Snowden INR GUIDELINES SEE BELOW Normal [facility] Comment on above: Result Comment: ASHTYN RED INR: 2.0 - 3.0 CONDITIONS NOT LISTED BELOW 2.5 - 3.5 FOR PROSTHETIC HEART VALVE REPLACEMENT 2.5 - 3.5 RECURRENT THROMBOSIS Performed By: #### P T, PTT #### [facility] [address] [place] [address] Dr. Cleveland Snowden PT Coag (PPP) [Time] 11.0 s Normal 9.0-11.6 [facility] Comment on above: Performed By: #### P T, PTT #### [facility] [address] [address] [address] Cleveland Snowden PTTon 01-08-2023 aPTT Coag (Bld) [Time] 29.6 s Normal 22.3-36.2 [facility] Comment on above: Performed By: #### P T, PTT #### [facility] [address] [place] [address] Dr. Cleveland Snowden Ambulatory Visit Summaryon 0 01-05-2023 Ambulatory Visit Summary MANUEL BALDERAS :1950 Visit Date:01/05/2023 Ambulatory Visit Instructions Your Diagnosis Renal stone Elevated PSA BPH with urinary obstruction Family history of prostate cancer Proteinuria Tests Performed Urnls Dip Stick Auto w/o Microscopy POC 28824 Your Care Team Attending Physician - NINA [...] [facility] [address], [place] [address]- Medications What How Much When Instructions Unchanged [...] Urnls Dip Stick Auto w/o Microscopy POC 81297 (01/05/2023) Bilirubin Urine Dipstick - Negative Blood Urine Dipstick - Trace-intact Glucose Urine Dipstick - Trace 100 mg/dl Ketones Urine Dipstick - Negative Leukocytes Urine Dipstick - Negative Nitrite Urine Dipstick - Negative Protein Urine Dipstick - 3+ (300 mg/dl) Specific [place] Urine Dipstick - >=1.030 Urine Appearance Urine [...] need 10 (more content not included)... Normal [facility] Consent for Procedure/Surger yon 01-05-2023 Consent for Procedure/Surgery [id number] D:[address] [facility] Patient Educationon 01-06-20 23 Patient Education [...] Rhubarb. ? Beets. ? Potato chips and uruguayan fries. ? Nuts. ? If you regularly take a diuretic medicine, make sure to eat at least 1?2 fruits or vegetables high in potassium each day. These include: ? Avocado. ? Banana. ? Bailey, prune, carrot, or tomato juice. ? Baked [...] Salad dr (more content not included)... Normal [facility] Screenson 01-05-2023 Screens [id number] D:[address] [facility] Urology Office/Clinic Noteon 01-05-2023 Urology Office/Clinic [...] and history for this patient from Dr. Baech. I have reviewed and verified the staff [...] Hx of nephrostomy tube for stones at [facility] in 2013. -Will schedule Left [...] [facility] [address], [place] [address]- Additional Instructions: schedule L ESWL, 3 mos with met w/up Patient Education Dietary Guidelines to Help Prevent Kidney Stones I, Kenzie Fierro, personally scribed for Dr. Beach on 01/05/2023 11:39:27. Electronically (more content not included)... Normal [facility] Comment on above: Result Comment: Elec tronically Signed By: Jude BEACH MD\.br\Date and Time Signed: 01/05/23 11:41 EST\.br\Electronically Co-Signed By: Kenzie Fierro\.br\Date and Time Co-Signed: 01/05/23 11:39 EST Lab Reportson 01-03-2023 Lab Reports [id number] CD:[address] [facility] XR KUB 1 VIEWon 01-01-2023 XR [...] by: TALI ISRAEL Date: 2023-01-01 16:46 Normal [facility] GLYCOHEMOGLOBIN A1Con 2022 ADA RECOMMENDATION SEE BELOW Normal [facility] Comment on above: Result Comment: ADA RECOMMENDED LIMIT 4.0 - 6.0 ADA THERAPEUTIC TARGET < 7.0 ACTION SUGGESTED > 7.0 Performed By: #### A 1C #### [facility] [address] [address] [address] Cleveland Snowden Glucose [Mass/Vol] 126 mg/dL Normal [facility] Comment on above: Performed By: #### A 1C #### [facility] [address] [address] [address] Cleveland Snowden HbA1c (Bld) [Mass fraction] 6.0 % Normal 4.5-6.2 [facility] Comment on above: Performed By: #### A 1C #### [facility] [address] [address] [address] Cleveland Snowden Patient Educationon 09-21-20 Patient [...] Follow these instructions at home: ? Take [id number] and prescription medicines only as told by [...] You d (more content not included)... Normal [facility] Lab Reportson 09-14-2022 Lab Reports [id number] D:[address] [facility] RAD - MISCon 09-14-2022 RAD - MISC [id number] D:[address] [facility] XR KUB 1 VIEWon 09-09-2022 XR [...] by: TALI ISRAEL Date: 2022-09-09 15:01 Normal [facility] GLYCOHEMOGLOBIN A1Con 2021 ADA RECOMMENDATION SEE BELOW Normal [facility] Comment on above: Result Comment: ADA RECOMMENDED LIMIT 4.0 - 6.0 ADA THERAPEUTIC TARGET < 7.0 ACTION SUGGESTED > 7.0 Performed By: #### A 1C #### [facility] [address] [address] [address] Cleveland Snowden Glucose [Mass/Vol] 131 mg/dL Normal [facility] Comment on above: Performed By: #### A 1C #### [facility] [address] [place] [address] Dr. Cleveland Snowden HbA1c (Bld) [Mass fraction] 6.2 % Normal 4.5-6.2 [facility] Comment on above: Performed By: #### A 1C #### [facility] [address] [place] [address] Dr. Cleveland Snowden LIPID PROFILEon 08-06-2022 CHOL-HDL RATIO NORM SEE BELOW Normal [facility] Comment on above: Result Comment: 3.3 - 4.4 LOW RISK 4.4 - 7.1 AVERAGE RISK 7.1 - 11.0 MODERATE RISK >11.0 HIGH RISK Performed By: #### A 1C #### [facility] [address] [address] [address] Cleveland Snowden Cholesterol [Mass/Vol] 108 mg/dL Normal <=200 [facility] Comment on above: Performed By: #### A 1C #### [facility] [address] [address] [address] Cleveland Snowden Cholesterol in HDL [Mass/Vol] 36 mg/dL Critically low 40-60 [facility] Comment on above: Performed By: #### A 1C #### [facility] [address] [place] [address] Dr. Cleveland Snowden Cholesterol in LDL [Mass/Vol] 45.0 mg/dL Normal [facility] Comment on above: Performed By: #### A 1C #### [facility] [address] [address] [address] Cleveland Snowden Cholesterol.total/Ch olesterol in HDL [Mass ratio] 3.0 {ratio} Normal [facility] Comment on above: Performed By: #### A 1C #### [facility] [address] [address] [address] Cleveland Snowden HDL NORMAL > or = 60 mg/dl - LO W CARDIOVASCULAR RISK <40 mg/dl - HIGH CARDIOVASCULAR RISK Normal [facility] Comment on above: Performed By: #### A 1C #### [facility] [address] [address] [address] Cleveland Snowden LDL CALC NORMAL SEE BELOW Normal [facility] Comment on above: Result Comment: <100 mg/dl OPTIMAL 100 - 129 mg/dl NEAR OR ABOVE OPTIMAL 130 - 159 mg/dl BORDERLINE HIGH 160 - 189 mg/dl HIGH >190 mg/dl VERY HIGH Performed By: #### A 1C #### [facility] [address] [address] [address] Cleveland Snowden Triglyceride [Mass/Vol] 135 mg/dL Normal <=150 [facility] Comment on above: Performed By: #### A 1C #### [facility] [address] [address] [address] Cleveland Snowden VLDL CALC 27.0 mg/dL Normal [facility] Comment on above: Performed By: #### A 1C #### [facility] [address] [address] [address] Cleveland Snowden GLYCOHEMOGLOBIN A1Con 2021 ADA RECOMMENDATION SEE BELOW Normal [facility] Comment on above: Result Comment: ADA RECOMMENDED LIMIT 4.0 - 6.0 ADA THERAPEUTIC TARGET < 7.0 ACTION SUGGESTED > 7.0 Performed By: #### A 1C #### [facility] [address] [place] [address] Dr. Cleveland Snowden Glucose [Mass/Vol] 154 mg/dL Normal [facility] Comment on above: Performed By: #### A 1C #### [facility] [address] [address] [address] Cleveland Snowden HbA1c (Bld) [Mass fraction] 7.0 % Critically high 4.5-6.2 [facility] Comment on above: Performed By: #### A 1C #### [facility] [address] [address] [address] Cleveland Snowden LIPID PROFILEon 05-05-2022 CHOL-HDL RATIO NORM SEE BELOW Normal [facility] Comment on above: Result Comment: 3.3 - 4.4 LOW RISK 4.4 - 7.1 AVERAGE RISK 7.1 - 11.0 MODERATE RISK >11.0 HIGH RISK Performed By: #### P T, PTT #### [facility] [address] [address] [address] Cleveland Snowden Cholesterol [Mass/Vol] 104 mg/dL Normal <=200 [facility] Comment on above: Performed By: #### P T, PTT #### [facility] [address] [address] [address] Cleveland Snowden Cholesterol in HDL [Mass/Vol] 24 mg/dL Critically low 40-60 [facility] Comment on above: Performed By: #### P T, PTT #### [facility] [address] [address] [address] Cleveland Snowden Cholesterol in LDL [Mass/Vol] 28.0 mg/dL Normal [facility] Comment on above: Performed By: #### P T, PTT #### [facility] [address] [address] [address] Cleveland Snowden Cholesterol.total/Ch olesterol in HDL [Mass ratio] 4.3 {ratio} Normal [facility] Comment on above: Performed By: #### P T, PTT #### [facility] [address] [address] [address] Cleveland Snowden HDL NORMAL > or = 60 mg/dl - LO W CARDIOVASCULAR RISK <40 mg/dl - HIGH CARDIOVASCULAR RISK Normal [facility] Comment on above: Performed By: #### P T, PTT #### [facility] [address] [address] [address] Cleveland Snowden LDL CALC NORMAL SEE BELOW Normal [facility] Comment on above: Result Comment: <100 mg/dl OPTIMAL 100 - 129 mg/dl NEAR OR ABOVE OPTIMAL 130 - 159 mg/dl BORDERLINE HIGH 160 - 189 mg/dl HIGH >190 mg/dl VERY HIGH Performed By: #### P T, PTT #### [facility] [address] [address] [address] Cleveland Snowden Triglyceride [Mass/Vol] 260 mg/dL Critically high <=150 [facility] Comment on above: Performed By: #### P T, PTT #### [facility] [address] [place] [address] Dr. Cleveland Snowden VLDL CALC 52.0 mg/dL Normal [facility] Comment on above: Performed By: #### P T, PTT #### [facility] [address] [place] [address] Dr. Cleveland Snowden PROF 14(COMP METB)on 022 Albumin [Mass/Vol] 3.5 g/dL Normal 3.4-5.0 [facility] Comment on above: Performed By: #### P T, PTT #### [facility] [address] [place] [address] Dr. Cleveland Snowden Albumin/Globulin [Mass ratio] 1.1 {ratio} Normal [facility] Comment on above: Performed By: #### P T, PTT #### [facility] [address] [place] [address] Dr. Cleveland Snowden ALP [Catalytic activity/Vol] 59 U/L Normal 46-116 [facility] Comment on above: Performed By: #### P T, PTT #### [facility] [address] [place] [address] Dr. Cleveland Snowden ALT [Catalytic activity/Vol] 46 U/L Normal 16-63 [facility] Comment on above: Performed By: #### P T, PTT #### [facility] [address] [place] [address] Dr. Cleveland Snowden Anion gap [Moles/Vol] 14.7 mmol/L Normal [facility] Comment on above: Performed By: #### P T, PTT #### [facility] [address] [address] [address] Cleveland Snowden AST [Catalytic activity/Vol] 46 U/L Critically high 15-37 [facility] Comment on above: Performed By: #### P T, PTT #### [facility] [address] [place] [address] Dr. Cleveland Snowden Bilirubin [Mass/Vol] 0.5 mg/dL Normal 0.2-1.0 [facility] Comment on above: Performed By: #### P T, PTT #### [facility] [address] [place] [address] Dr. Cleveland Snowden Calcium [Mass/Vol] 9.5 mg/dL Normal 8.5-10.1 [facility] Comment on above: Performed By: #### P T, PTT #### [facility] [address] [place] [address] Dr. Cleveland Snowden Chloride [Moles/Vol] 103 mmol/L Normal 98-107 [facility] Comment on above: Performed By: #### P T, PTT #### [facility] [address] [place] [address] Dr. Cleveland Snowden CO2 [Moles/Vol] 28.1 mmol/L Normal 21.0-32.0 [facility] Comment on above: Performed By: #### P T, PTT #### [facility] [address] [place] [address] Dr. Cleveland Snowden Creatinine [Mass/Vol] 0.84 mg/dL Normal 0.70-1.30 [facility] Comment on above: Performed By: #### P T, PTT #### [facility] [address] [place] [address] Dr. Cleveland Snowden EGFR-AF [facility] >60 Normal >=60 [facility] Comment on above: Performed By: #### P T, PTT #### [facility] [address] [place] [address] Dr. Cleveland Snowden EGFR-NON AF [facility] >60 Normal >=60 [facility] Comment on above: Performed By: #### P T, PTT #### [facility] [address] [place] [address] Dr. Cleveland Snowden Globulin (S) [Mass/Vol] 3.1 g/dL Normal [facility] Comment on above: Performed By: #### P T, PTT #### [facility] [address] [address] [address] Cleveland Snowden Glucose [Mass/Vol] 176 mg/dL Critically high 74-106 [facility] Comment on above: Performed By: #### P T, PTT #### [facility] [address] [address] [address] Cleveland Snowden Potassium [Moles/Vol] 3.8 mmol/L Normal 3.5-5.1 [facility] Comment on above: Performed By: #### P T, PTT #### [facility] [address] [place] [address] Dr. Cleveland Snowden Protein [Mass/Vol] 6.6 g/dL Normal 6.4-8.2 [facility] Comment on above: Performed By: #### P T, PTT #### [facility] [address] [place] [address] Dr. Cleveland Snowden Sodium [Moles/Vol] 142 mmol/L Normal 136-145 [facility] Comment on above: Performed By: #### P T, PTT #### [facility] [address] [place] [address] Dr. Cleveland Snowden Urea nitrogen [Mass/Vol] 24.0 mg/dL Critically high 7.0-18.0 [facility] Comment on above: Performed By: #### P T, PTT #### [facility] [address] [place] [address] Dr. Cleveland Snowden Urea nitrogen/Creatinine [Mass ratio] 28.6 mg/mg Normal [facility] Comment on above: Performed By: #### P T, PTT #### [facility] [address] [place] [address] Dr. Cleveland Snowden URIC ACID SERUMon 05-05-2022 Urate [Mass/Vol] 6.2 mg/dL Normal 3.5-7.2 [facility] Comment on above: Performed By: #### P T, PTT #### [facility] [address] [address] [address] Cleveland Snowden Basophils Auto (Bld) [#/Vol] on 04-03-2021 Basophils (Bld) [#/Vol] 0.0 10*3/uL 0.0-0.2 [facility] Basophils/100 WBC Auto (Bld) on 04-03-2021 Basophils/100 WBC (Bld) 0.6 % [facility] Blood hemoglobin measurement (mass/volume)on 04-03-2021 Hemoglobin (Bld) [Mass/Vol] 12.2 g/dL 13.0-17.0 [facility] Blood leukocytes automated c ount (number/volume)on 04-03-2021 WBC (Bld) [#/Vol] 4.7 10*3/uL 4.5-11.0 [facility] Creatinine and Glomerular fi ltration rate.predicted panel (S/P/Bld)on 04-03-2021 Creatinine [Mass/Vol] 0.68 mg/dL 0.64-1.27 [facility] Eosinophils Auto (Bld) [#/Vo l]on 04-03-2021 Eosinophils (Bld) [#/Vol] 0.1 10*3/uL 0.0-0.45 [facility] Eosinophils/100 WBC Auto (Bl d)on 04-03-2021 Eosinophils/100 WBC (Bld) 3.1 % [facility] Erythrocyte distribution wid th Auto (RBC) [Ratio]on 04-03-2021 Erythrocyte distribution width (RBC) [Ratio] 15.0 % 12.0-14.8 [facility] Estimated glomerular filtrat ion rate (GFR) non- Americanon 04-03-2021 GFR/1.73 sq M.predicted among non-blacks MDRD (S/P/Bld) [Vol rate/Area] > 60 mL/Min [facility] Hematocrit Auto (Bld) [Volum e fraction]on 04-03-2021 Hematocrit (Bld) [Volume fraction] 36.2 % 38.8-50.0 [facility] Laboratory - Hematology and Cell countson 04-03-2021 Nucleated RBC/100 WBC (Bld) [Ratio] 0.2 % 0-0.5 [facility] Lymphocytes Auto (Bld) [#/Vo l]on 04-03-2021 Lymphocytes (Bld) [#/Vol] 0.7 10*3/uL 1.00-4.8 [facility] Lymphocytes/100 WBC Auto (Bl d)on 04-03-2021 Lymphocytes/100 WBC (Bld) 14.5 % [facility] MCH Auto (RBC) [Entitic mass ]on 04-03-2021 MCH (RBC) [Entitic mass] 31.3 pg 27.5-35.2 [facility] MCHC Auto (RBC) [Mass/Vol]on 04-03-2021 MCHC (RBC) [Mass/Vol] 33.8 g/dL 32.5-35.6 [facility] MCV Auto (RBC) [Entitic vol] on 04-03-2021 MCV (RBC) [Entitic vol] 92.6 fL 83.5-101 [facility] Monocytes Auto (Bld) [#/Vol] on 04-03-2021 Monocytes (Bld) [#/Vol] 0.5 10*3/uL 0.0-0.8 [facility] Monocytes/100 WBC Auto (Bld) on 04-03-2021 Monocytes/100 WBC (Bld) 10.7 % [facility] Neutrophils Auto (Bld) [#/Vo l]on 04-03-2021 Neutrophils (Bld) [#/Vol] 3.3 10*3/uL 1.8-7.7 [facility] Neutrophils/100 WBC Auto (Bl d)on 04-03-2021 Neutrophils/100 WBC (Bld) 71.1 % [facility] No Panel Informationon 04-03 Estimated GFR () > 60 mL/Min [facility] Comment on above: GFR estimated refere nce range: According to KDOQI guidelines, <60 ml/min/1.73m2 is sufficient to diagnose a patient with chronic kidney disease. Pharmacy Creatinine Clearance (Chem N/A [facility] Platelet mean volume Auto (B ld) [Entitic vol]on 04-03-2021 Platelet mean volume (Bld) [Entitic vol] 8.5 fL 6.6-10.1 [facility] Platelets Auto (Bld) [#/Vol] on 04-03-2021 Platelets (Bld) [#/Vol] 137 10*3/uL 150-450 [facility] RBC Auto (Bld) [#/Vol]on RBC (Bld) [#/Vol] 3.91 10*6/uL 3.90-5.60 [facility] Serum or plasma calcium edu urement (mass/volume)on 04-03-2021 Calcium [Mass/Vol] 9.8 mg/dL 8.2-10.2 [facility] Serum or plasma chloride merlyn surement (moles/volume)on 04-03-2021 Chloride [Moles/Vol] 100 mmol/L 95-[address] [facility] Serum or plasma glucose edu urement (mass/volume)on 04-03-2021 Glucose [Mass/Vol] 184 mg/dL 70-100 [facility] Comment on above: ADA recommended refe rence rangeRandom Glucose Reference Range is dependent on time and content of last meal. Glucose of more than 200 mg/dL in a nonstressed, ambulatory subject supports the diagnosis of Diabetes Mellitus. Serum or plasma potassium me asurement (moles/volume)on 04-03-2021 Potassium [Moles/Vol] 3.6 mmol/L 3.5-5.1 [facility] Serum or plasma sodium measu rement (moles/volume)on 04-03-2021 Sodium [Moles/Vol] 138 mmol/L 136-146 [facility] Serum or plasma total carbon dioxide measurement (moles/volume)on 04-03-2021 CO2 [Moles/Vol] 26.3 mmol/L 22.0-30.0 [facility] Serum or plasma urea nitroge n measurement (mass/volume)on 04-03-2021 Urea nitrogen [Mass/Vol] 17 mg/dL 9-23 [facility] Basophils Auto (Bld) [#/Vol] on 02-11-2021 Basophils (Bld) [#/Vol] 0.0 10*3/uL 0.0-0.2 [facility] Basophils/100 WBC Auto (Bld) on 02-11-2021 Basophils/100 WBC (Bld) 0.6 % [facility] Blood hemoglobin measurement (mass/volume)on 02-11-2021 Hemoglobin (Bld) [Mass/Vol] 12.6 g/dL 13.0-17.0 [facility] Blood leukocytes automated c ount (number/volume)on 02-11-2021 WBC (Bld) [#/Vol] 4.4 10*3/uL 4.5-11.0 [facility] Eosinophils Auto (Bld) [#/Vo l]on 02-11-2021 Eosinophils (Bld) [#/Vol] 0.2 10*3/uL 0.0-0.45 [facility] Eosinophils/100 WBC Auto (Bl d)on 02-11-2021 Eosinophils/100 WBC (Bld) 3.8 % [facility] Erythrocyte distribution wid th Auto (RBC) [Ratio]on 02-11-2021 Erythrocyte distribution width (RBC) [Ratio] 14.9 % 12.0-14.8 [facility] Hematocrit Auto (Bld) [Volum e fraction]on 02-11-2021 Hematocrit (Bld) [Volume fraction] 36.1 % 38.8-50.0 [facility] Laboratory - Hematology and Cell countson 02-11-2021 Nucleated RBC/100 WBC (Bld) [Ratio] 0.1 % 0-0.5 [facility] Lymphocytes Auto (Bld) [#/Vo l]on 02-11-2021 Lymphocytes (Bld) [#/Vol] 0.7 10*3/uL 1.00-4.8 [facility] Lymphocytes/100 WBC Auto (Bl d)on 02-11-2021 Lymphocytes/100 WBC (Bld) 15.4 % [facility] MCH Auto (RBC) [Entitic mass ]on 02-11-2021 MCH (RBC) [Entitic mass] 32.5 pg 27.5-35.2 [facility] MCHC Auto (RBC) [Mass/Vol]on 02-11-2021 MCHC (RBC) [Mass/Vol] 34.8 g/dL 32.5-35.6 [facility] MCV Auto (RBC) [Entitic vol] on 02-11-2021 MCV (RBC) [Entitic vol] 93.3 fL 83.5-101 [facility] Monocytes Auto (Bld) [#/Vol] on 02-11-2021 Monocytes (Bld) [#/Vol] 0.5 10*3/uL 0.0-0.8 [facility] Monocytes/100 WBC Auto (Bld) on 02-11-2021 Monocytes/100 WBC (Bld) 12.1 % [facility] Neutrophils Auto (Bld) [#/Vo l]on 02-11-2021 Neutrophils (Bld) [#/Vol] 3.0 10*3/uL 1.8-7.7 [facility] Neutrophils/100 WBC Auto (Bl d)on 02-11-2021 Neutrophils/100 WBC (Bld) 68.1 % [facility] Platelet mean volume Auto (B ld) [Entitic vol]on 02-11-2021 Platelet mean volume (Bld) [Entitic vol] 8.2 fL 6.6-10.1 [facility] Platelets Auto (Bld) [#/Vol] on 02-11-2021 Platelets (Bld) [#/Vol] 118 10*3/uL 150-450 [facility] RBC Auto (Bld) [#/Vol]on RBC (Bld) [#/Vol] 3.87 10*6/uL 3.90-5.60 [facility] Creatinine (Bld) [Mass/Vol]o n 01-10-2021 Creatinine [Mass/Vol] 0.7 mg/dL 0.6-1.3 [facility] Comment on above: ER/ESD physician is notified/shown all ISTAT results.Critical values may be confirmed by laboratory testing ifdeemed necessary by ER attending doctor. No Panel Informationon 01-10 POC Estimated GFR > 60 [facility] Comment on above: GFR estimated refere nce range: According to KDOQI guidelines, <60 ml/min/1.73m2 is sufficient to diagnose a patient with chronic kidney disease. POC Estimated GFR Non- Amer > 60 [facility] Vital Signs Date Time Vital Sign Value Performing Clinician Marcelino long 12-09-2023 11:01-0500 Body height 190.5 cm Preet Enrique DPM Work Phone: [facility] 12-09-2023 11:01-0500 Body mass index (BMI) [Ratio] 36.87 kg/m2 Preet Klaus DPM Work Phone: [facility] 12-09-2023 11:01-0500 Body weight 133.81 kg Preet Klaus DPM Work Phone: [facility] 07-21-2023 13:32-0400 Blood Pressure Location Jude BEACH [facility] 07-21-2023 13:32-0400 Diastolic blood pressure 64 mm[Hg] Jude BEACH [facility] 07-21-2023 13:32-0400 Heart rate 54 /min Jude BEACH [facility] 07-21-2023 13:32-0400 Systolic blood pressure 117 mm[Hg] Jude BEACH [facility] 01-05-2023 10:47-0500 Blood Pressure Location Jude BEACH [facility] 01-05-2023 10:47-0500 Diastolic blood pressure 93 mm[Hg] Jude BEACH [facility] 01-05-2023 10:47-0500 Heart rate 58 /min Jude BEACH [facility] 01-05-2023 10:47-0500 Systolic blood pressure 152 mm[Hg] Jude BEACH [facility] Encounters Encounter Date Encounter Type Care Provider Facility Start: 07-26-2024 ambulatory Jude Gutierrez ty:[facility] Start: 12-09-2023 End: 12-09-2023 ambulatory PREET Marciano KLAUS Not Available Start: 12-09-2023 End: 12-09-2023 Patient encounter procedure Preet Tariq Klaus DPM Work Phone: [facility] Comment on above: 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, not 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) (CMS/[facility]) (Primary Dx); Onychomycosis; Hallux limitus, left; Acquired keratoderma Start: 11-04-2023 End: 11-04-2023 ambulatory KHOA BOWLES Not Available Start: 08-05-2023 End: 08-05-2023 ambulatory Yaquelin Ryan Facility:[facility] Start: 08-05-2023 End: 08-05-2023 ambulatory MD Khoa Bowles Work Phone: [facility] Work Phone: Start: 08-05-2023 End: 08-05-2023 Patient encounter procedure MD Khoa Bowles Work Phone: [facility] [address] Work Phone: Start: 07-21-2023 End: 07-22-2023 ambulatory Jude BEACH Facility:[facility] Start: 07-21-2023 End: 07-21-2023 Patient encounter procedure Jude BEACH [facility] Start: 07-16-[address] KHOA BOWLES . Fac ility:[facility] Start: 05-24-2023 ambulatory Jude Gutierrez ty:[facility] [place] Start: 02-04-2023 End: 02-05-[address] JUDE BEACH . Facility:[facility] Start: 01-14-2023 End: 01-15-[address] JUDE BEACH . Facility:[facility] Start: 01-12-2023 Encounter for other preprocedural examination DR JUDE BEACH . [facility] Start: 01-12-2023 Encounter for preprocedural cardiovascular examination DR JUDE BEACH . [facility] Start: 01-12-2023 Encounter for preprocedural laboratory examination DR JUDE BEACH . [facility] Start: 01-08-2023 End: 01-09-[address] JUDE BEACH . Facility:[facility] Start: 01-08-2023 End: 01-09-2023 Encounter for preprocedural laboratory examination DR JUDE BEACH . Facility: Start: 01-05-2023 End: 01-06-2023 ambulatory Jude BEACH Facility:[facility] Start: 01-05-2023 End: 01-05-2023 Patient encounter procedure Jude BEACH [facility] Start: 12-31-2022 End: 01-01-[address] KHOA BOWLES . Facility:[facility] Start: 11-02-[address] KHOA BOWLES . Fac ility: Start: 09-21-2022 End: 09-22-2022 ambulatory Jude BEACH Facility:[facility] Start: 09-21-2022 End: 09-21-2022 Patient encounter procedure Jude BEACH [facility] Start: 09-09-2022 End: 09-10-[address] JUDE BEACH . Facility:[facility] Start: 08-06-2022 End: 08-07-[address] KHOA BOWLES . Facility:[facility] Start: 05-05-2022 End: 05-06-[address] KHOA BOWLES . Facility:[facility] Start: 04-03-2021 End: 04-03-2021 Patient encounter procedure Khoa Bowles Work Phone: -Pre-Surgical Testing Start: 02-11-2021 End: 02-11-2021 Patient encounter procedure Khoa Bowles Work Phone: -[facility] Start: 01-10-2021 End: 01-10-2021 Patient encounter procedure [...] Performed By: #### P T, PTT #### [facility] [address] [place] [address] Dr. Cleveland Snowden Start: 09-09-[address] LILIANE BEACH . Comment on above: Performed By: #### P SAD #### [facility] [address] [place] [address] Dr. Cleveland Snowden Start: 01-10-2021 MRI of [...] Screening for malign ant neoplasm of colon [facility] Start: 06-08-2024 Glaucoma screening Diabetes: R etinopathy Screening [facility] Start: 03-09-2024 End: 03-09-2024 Patient encounter procedure 03/09/2024 1:00 PM EDT Procedure Visit [facility] [address] [facility] [place] [address] Preet Enrique, DPM [address] [place] [address] [facility] Start: 02-23-2024 Medicare Annual Well ness (AWV) Medicare Annual Wellness (AWV) [facility] Start: 02-03-2024 End: 02-03-2024 Patient encounter procedure 02/03/2024 11:30 AM EDT Office Visit [facility] [address] [facility] [place] [address] Khoa Bowles MD [address] [facility] [place] [address] (Fax) [facility] Start: 01-18-2024 Hemoglobin A1c measurement Diabetes: Hemoglobin A1C [facility] Start: 1950 Screening for malign ant neoplasm of colon [facility] Immunizations Immunization Date Immunization Notes Care Provider [place] 10-14-2023 Influenza, Seasonal, Quadrivalent, Adjuvanted Preet Enrique DPM Work Phone: [facility] 09-09-2022 SARS-CoV-2 (COVID-19 ) [id number] Jude BEACH [facility] 09-03-2022 influenza virus vacc ine, unspecified formulation Jude BEACH [facility] 09-03-2022 Influenza, High-dose Seasonal, Quadrivalent, Preservative Free Preet Enrique DPM Work Phone: [facility] 09-26-2021 SARS-CoV-2 (COVID-19 ) mRNA-1273 vaccine Jude BEACH [facility] 09-25-2021 Moderna SARS-CoV-2 Booster Vaccination Preet Enrique DPM Work Phone: [facility] 08-22-2021 influenza virus vacc ine, unspecified formulation Jude BEACH [facility] 08-22-2021 Influenza, Seasonal, Quadrivalent, Adjuvanted Preet Enrique DPM Work Phone: [facility] 08-20-2021 influenza virus vacc ine, unspecified formulation Jude BEACH [facility] 01-25-2021 COVID-19 mRNA-1273 (Moderna) Khoa Bowles Work Phone: [facility] 01-25-2021 SARS-CoV-2 (COVID-19 ) Ad26 vaccine, recombinant Jude BEACH [facility] 12-28-2020 COVID-19 mRNA-1273 (Moderna) Khoa Bowles Work Phone: [facility] Comment on above: Result Comment: 2022: [id number] 08-06-2020 influenza virus vacc ine, unspecified formulation Jude BEAHC [facility] 08-06-2020 Influenza, Seasonal, Quadrivalent, Adjuvanted Preet Enrique DPM Work Phone: [facility] 09-04-2019 influenza virus vacc ine, unspecified formulation Jude BEACH [facility] 09-04-2019 influenza, high dose seasonal, preservative-free Preet Enrique DPM Work Phone: [facility] 08-19-2018 influenza virus vacc ine, unspecified formulation Jude BEACH [facility] 08-19-2018 influenza, high dose seasonal, preservative-free Preet Enrique DPM Work Phone: [facility] 09-06-2017 influenza virus vacc ine, unspecified formulation Jude BEACH [facility] 09-06-2017 influenza, high dose seasonal, preservative-free Preet Enrique DPM Work Phone: [facility] 09-06-2017 pneumococcal polysaccharide vaccine, 23 valent Jude BEACH [facility] 08-18-2017 influenza virus vacc ine, unspecified formulation Jude BEACH [facility] 08-17-2016 influenza virus vacc ine, unspecified formulation Jude BEACH [facility] 08-17-2016 influenza, high dose seasonal, preservative-free Preet Enrique DPM Work Phone: [facility] 08-17-2016 pneumococcal conjuga te vaccine, 13 valent Jude BEACH [facility] 08-22-2015 zoster vaccine, live Jude BEACH [facility] 08-17-2015 influenza, seasonal, injectable, preservative free Preet Enrique DPM Work Phone: [facility] 07-27-2013 influenza virus vacc ine, unspecified formulation Jude BEACH [facility] 02-22-2012 pneumococcal polysaccharide vaccine, 23 valent Preet Enrique DPM Work Phone: [facility] 07-20-2009 pneumococcal polysaccharide vaccine, 23 valent Jude BEACH [facility] Payers Date Payer Category Payer Medicare [id number] 2016 Medicare MEDICARE MEDICAR E PART B [id number] 2016-Present [address] [address] [place] [address] Medicare [id number] 2016 Private Health Insurance [employer] [id number] 2016-Present [address] [address] [place] [address] Supplement [id number] 1959 Medicare [id number] 1959 Private Health Insurance [facility] [id number] 1959 Self-pay [id number] 1950 Unknown [id number] 2.16.840.1.824725.3.579 .2.593 1950 Unknown [id number] 2.16.840.1.386040.3.579 .2.593 1950 Unknown [id number] 2.16.840.1.431597.3.579 .2.593 1950 Unknown [id number] 2.16.840.1.387399.3.579 .2.593 1950 Unknown [id number] 2.16.840.1.479679.3.579 .2.593 1950 Unknown [id number] 2.16.840.1.657271.3.579 .2.593 1950 Unknown [id number] 2.16.840.1.983068.3.579 .2.593 1950 Unknown [id number] 2.16.840.1.013799.3.579 .2.593 1950 Unknown [id number] 2.16.840.1.514751.3.579 .2.593 1950 Unknown [id number] 2.16.840.1.622238.3.579 .2.593 1950 Unknown [id number] 2.16.840.1.085541.3.579 .2.727 1950 Unknown [id number] 2.16.840.1.826305.3.579 .2.727 1950 Unknown [id number] 2.16.840.1.529469.3.579 .2.727 1950 Unknown [id number] 2.16.840.1.289563.3.579 .2.727 1950 Unknown [id number] 2.16.840.1.803844.3.579 .2.727 1950 Unknown [id number] 2.16.840.1.900280.3.579 .2.727 1950 Unknown [id number] 2.16.840.1.752662.3.579 .2.1259 1950 Unknown [id number] 2.16.840.1.058179.3.579 .2.1259 Unknown [id number] Unknown [id number] 2.16.840.1.713395.3.579 .2.531 Social History Date Type Detail Facility Start: 04-03-2021 End: 06-02-2023 Tobacco smoking status NCIS Never smoked tobacco (finding) [facility] Start: 1950 Sex Assigned At Male F [facility] Tobacco smoking status Never [facility] Start: 11-04-2023 End: 12-09-2023 Sex Assigned At Male [facility] Start: 12-09-2023 Alcohol intake Lifetime non-d alexis (finding) [facility] Start: 11-04-2023 End: 12-09-2023 History of Social function [facility] Start: 04-14-2023 Alcohol Comment Caffeine intake: non e [facility] Start: 1950 Sex Assigned At Not on file [facility] Medical Equipment Procedure Code Equipment Code Equipment Origin al Text Equipment Identifier Dates Discectomy, lumbar COFLEX SIZE 10 [facility] art: 11-23-2018 Discectomy, lumbar COFLEX SIZE 14 [facility] art: 11-23-2018 Discectomy, lumbar COFLEX SIZE 14 [facility] art: 11-23-2018 Discectomy, lumbar COFLEX SIZE 10 [facility] art: 11-23-2018 1 each by In Vit ro route in the morning. Take before meals. [id number] Start: 08-02-2023 End: 07-27-2024 1 Units in the morning. Take before meals. Accucheck soft clix. [id number] Start: 11-10-2023 End: 11-04-2024 Injection subcutaneous [id number] Start: 11-11-2023 Functional Status Date Assessment Result Facility 07-21-2023 Functional Status N/A [facility] 01-05-2023 Functional Status N/A [facility] History of Present illness Narrative 12-09-2023 Preet [...] in the morning., Disp: , Rfl: biotin 89896 MCG tablet, 1 (one) time each day [...] of 1 of the Coflex devices., Uday, [facility] ROTATOR CUFF REPAIR Left 2000 anterior stabilization [...] Mood normal. Behavior: Behavior normal. MODIFIER: Q9, [address], [address] Assessment/Plan Diagnoses and all orders for this visit: Type II or unspecified type diabetes mellitus with neurological manifestations, not 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) ([facility]) Onychomycosis Hallux limitus, left Acquired keratoderma [...] Preet Enrique DPM documented in this encounter [facility] Discharge instructions 07-21-2023 Note Date & [...] include: ?8 oz (237 mL) of milk, jkcbhjj-xidefhjqiuxb-khgkt milk, and calcium-fortifiedfruit juice. Calcium-fortified means that [...] ?Spinach (cooked), rhubarb, beets, sweet potatoes, and Moldovan chard. ?Peanuts. ?Potato chips, uruguayan fries, and baked potatoes with skin on. ?Nuts and nut products. ?Chocolate. If you regularly take a diuretic medicine, make sure to eat at least 1 or 2 servings of fruits or vegetables that are high in potassium each day. These include: ?Avocado. ?Banana. ?Bailey, prune, carrot, or tomato juice. ?Baked potato. [...] magnesium, fish oil, or vitamin B6. Take bljd-jzo-nanjnfz and prescription medicines only as told by [...] Casseroles. Pizza. Lasagna. Frozen meals. Potato chips. Gibraltarian fries. The items listed above may not [...] provider. Document Revised: 06/29/2022 Document Reviewed: 06/29/2022 [employer] Patient Education 2022 [employer]. Follow Up Care 05/19/2023 09:51:24 With:NINA LEVY, Jude Crespo, MELANIE Address: [facility] [address] , [place] [address]- When: Unknown [facility] Discharge instructions 01-05-2023 [...] include: ?Spinach. ?Rhubarb. ?Beets. ?Potato chips and uruguayan fries. ?Nuts. If you regularly take a diuretic medicine, make sure to eat at least 1 2 fruits or vegetables high in potassium each day. These include: ?Avocado. ?Banana. ?Bailey, prune, carrot, or tomato juice. ?Baked potato. [...] Casseroles. Pizza. Lasagna. Frozen meals. Potato chips. Gibraltarian fries. Summary You can reduce your risk [...] 02/12/2012 Document Revised: 02/07/2020 Document Reviewed: 09/28/2017 [employer] Patient Education 2020 [employer]. Follow Up Care 10/07/2022 10:58:19 With:NINA LEVY, Jude Crespo, MELANIE Address: [facility] [address], [place] [address]- When: Unknown [facility] Discharge instructions 09-21-2022 [...] urethra. Follow these instructions at home: Take hmty-opz-vjufizg and prescription medicines only as told by [...] 10/18/2006 Document Revised: 09/12/2019 Document Reviewed: 11/22/2017 [employer] Patient Education 2020 [employer]. Follow Up Care 12/22/2021 13:03:04 With:NINA LEVY, Jude Crespo, URL Address: [facility] [address] , [place] [address]- When: Unknown [facility] Evaluation + Plan note Note Date & Type Note Facility Evaluation + Plan note No data available for this section [facility] Evaluation + Plan note Note Date & Type Note Facility Evaluation + Plan note Future Appointments Appointment Date:07/26/2024 01:45:00 PM Scheduled Provider:Jude BEACH MD Location:[facility] Appointment Type:URO Office Visit [facility] Evaluation note Note Date & Type Note Facility Evaluation note No assessment information availa [facility] Evaluation note Note Date & Type Note [...] available for this section [facility] Chief Complaint and Reason for Visit Chief [...] Active Yaquelin Ryan PA-C Attending Provider 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 Relationship Specialty Start Date End Date Khoa Bowles MD [address] [facility] [facility] [place] [address] PCP - General Family Medicine 04/08/23 Jude Beach MD [address] [place] [address] Referring Physician Urology 12/09/23 Preet Enrique DPM [address] [place], [place] [id number] Referring Physician Podiatry 12/09/23 (unrecognized sect ion and content) No Status Records FoundNo Status Records FoundNo Status Records FoundNo Status Records Found INFORMATION SOURCE (unrecogn ized section and content) DATE CREATED AUTHOR 02/14/2023 [facility] [place] [facility] DATE CREATED AUTHOR AUTHOR'S ORGANIZ ATION 08/06/2023 [facility] DATE CREATED AUTHOR AUTHOR'S ORGANIZ ATION 09/23/2023 [facility] DATE CREATED AUTHOR AUTHOR'S ORGANIZ ATION 12/10/2023 [facility] EPIC Reason for Visit [...] BE BASED ON THE PRIMARY CLINICAL RECORDS. [employer] provides no warranty or guarantee of the accuracy or completeness of information in this document.
[2024-02-07 05:00] LABS: Basophils Percent Auto 0.3 % (0.2-2.0); Eosinophils Percent Auto 0.7 % (0.9-7.0); Hematocrit 31.3 % (42.0-54.0); Hemoglobin 10.2 g/dL (14.0-18.0); Immature Granulocytes Abs Auto 0.02 10^3/uL (0.00-0.03); Immature Granulocytes Pct Auto 0.7 % (0.0-0.5); Lymphocytes Absolute Auto 0.3 10^3/uL (1.2-3.8); Lymphocytes Percent Auto 10.1 % (20.5-60.0); Mean Corpuscular HGB Conc 32.6 g/dL (29.9-35.2); Mean Corpuscular Hemoglobin 31.9 pg (25.9-34.0); Mean Corpuscular Volume 97.8 fL (80.0-94.0); Mean Platelet Volume 10.4 fL (9.5-13.5); Monocytes Absolute Auto 0.1 10^3/uL (0.3-0.8); Monocytes Percent Auto 4.7 % (1.7-12.0); Neutrophils Absolute Auto 2.5 10^3/uL (1.4-6.5); Neutrophils Percent Auto 83.5 % (43.0-75.0); Platelet Count 99 10^3/uL (150-450); Red Cell Distribution Width 14.9 % (11.0-15.0)
[2024-02-07] MEDS: 0.9 % SODIUM CHLORIDE 1,000 ML 125 ML IV ×3 (05:03→21:44)
[2024-02-07 05:16] LABS: Alanine Aminotransferase 83 U/L (16-63); Albumin Globulin Ratio 0.9; Alkaline Phosphatase 110 U/L (46-116); Anion Gap 19.1; Aspartate Amino Transferase 82 U/L (15-37); BUN Creatinine Ratio 23.3; Bilirubin Total 1.1 mg/dL (0.2-1.0); Calcium 9.7 mg/dL (8.5-10.1); Carbon Dioxide 21.1 mmol/L (21.0-32.0); Chloride 103 mmol/L (98-107); Estimated GFR (African America >60 (>=60); Estimated GFR (Non-African Ame 55 (>=60); Globulin 3.2 g/dL; Glucose 249 mg/dL (74-106); Potassium 4.2 mmol/L (3.5-5.1); Sodium 139 mmol/L (136-145); Total Protein 6.2 g/dL (6.4-8.2)
[2024-02-07 07:53] LABS: Glucometer 247 mg/dL (74-106)
[2024-02-07] MEDS: FENOFIBRATE 54 MG TABLET 162 MG PO (08:29)
[2024-02-07] MEDS: CLINDAMYCIN PHOSPHATE/D5W 600 MG/50 ML PIGGYBACK 100 MG IV (08:30)
[2024-02-07] MEDS: TAMSULOSIN HCL 0.4 MG CAPSULE 0.400000000000000022 MG PO (08:30)
[2024-02-07] MEDS: FERROUS SULFATE 325 MG TABLET PO (08:30)
[2024-02-07] MEDS: SODIUM BICARBONATE 325 MG TABLET 1950 MG PO ×2 (08:30→21:48)
[2024-02-07] MEDS: ALLOPURINOL 300 MG TABLET PO (08:30)
[2024-02-07] MEDS: INSULIN ASPART 300 UNIT/3 ML PEN SUBQ ×4 (08:30→21:45)
[2024-02-07] MEDS: GABAPENTIN 300 MG CAPSULE PO ×2 (08:40→21:44)
[2024-02-07] MEDS: L. ACIDOPHILUS/L.BULGARICUS 1 PACKET GRAN.PACK PO ×2 (08:40→21:45)
[2024-02-07] MEDS: INSULIN DETEMIR 300 UNIT/3 ML INSULN.PEN 10 UNIT SUBQ ×2 (09:18→21:46)
[2024-02-07 11:05] LABS: Glucometer 290 mg/dL (74-106)
[2024-02-07] MEDS: METHYLPREDNISOLONE SOD SUCC PF 40 MG/ML VIAL 80 MG IVP ×2 (11:20→21:45)
[2024-02-07] MEDS: LEVOFLOXACIN IN DEXTROSE 5 % 750 MG/150 ML IV.SOLN 100 MG IV (11:20)
--- NOTE | 2024-02-07 12:16 | CM.NOTE ---
Rounds made with Dr. Saenz, discussed plan of care with pt and family. No discharge today, will change antibiotics.
[2024-02-07] MEDS: LINEZOLID IN DEXTROSE 5% 600 MG/300 ML PIGGYBACK 300 MG IV (13:02)
--- NOTE | 2024-02-07 13:02 | CM.NOTE ---
Important Message From Medicare discussed with pt, pt verbalizes understanding and signs paper. Original given to pt and copy placed in pt's chart.
--- NOTE | 2024-02-07 13:30 | P.HP_ITS ---
<Statement entered by Daron Saenz MD - 02/07/24 14:44> Patient seen and examined, agree with assessment and plan below. Developed redness and swelling to LLE. Diffuse rash and swelling to hands after recent amoxicillin use. Admitted for treatment and no improvement with clindamycin. Changed to levaquin and zyvox. Added solu-medrol. Diagnosis: 1. Cellulitis left leg 2. Allergic drug reaction 3. Petechiae 4. ROSIO 5. DM2 6. HTN 7. Neuropathy 8. Chronic venous statis HPI H&P: HPI History of Present Illness Chief complaint: SWELLING legs and hands CELLULITIS Narrative: 02/07/24 1015 This is a 73-year-old male patient with a complicated past medical history as outlined below including DM2, chronic venous stasis, HTN, chronic RLE cellulitis on prophylactic doxycycline, among others; who presented to the ED yesterday evening complaining of swelling and rash symptoms. The patient had a tooth extraction of an upper right molar a few weeks ago. He followed up with his dentist 2 weeks ago for suture removal and was informed that his extraction site was infected. He was prescribed amoxicillin for 7 days and completed the course of antibiotic 4 days ago. That evening he began to experience chills and sweats that waxed and waned. On Wednesday he noted his left lower extremity was becoming red and warm and painful and swollen. He concurrently noticed onset of rash and swelling and pruritus to his bilateral hands and face. As his left lower extremity was becoming increasingly painful and red he presented to the ED for further evaluation. Workup in the ED revealed mild ROSIO (BUN 33, CR 1.46, GFR 47), hyperglycemia (252), elevated ESR (56), and elevated lactic acid (3.6). A UA was negative. The ED provider had some concern for poor circulation to the RLE, a CTA with runoff was obtained and this was unremarkable for arterial stenosis. An allergic reaction to the amoxicillin was suspected, in addition to LLE cellulitis and ROSIO. The patient was admitted last night to the hospitalist service as an inpatient and started on IVPB clindamycin. At the time of my exam the patient is resting comfortably in bed. He reports mild improvement in his rash and swelling of his hands and face. He sees no significant improvement of the cellulitis of the left lower extremity. We will change his antibiotic coverage to linezolid and Levaquin for broader gram- negative and gram-positive coverage as we believe his tooth abscess is still active as well. Due to his allergic symptoms, we have put amoxicillin on his allergy list and will give scheduled doses of Solu-Medrol overnight in hopes of improving his symptoms. Petechial rash to his abdomen noted in the ED has been present since November and is not suspected to be part of an allergic reaction response. We have low clinical suspicion for arterial stenosis of the LE and diaz ve cancelled the vascular consult entered by the ED provider. Opioid HPI Opioid Management Most Recent Opioid Data: Last Pain Scale 6 02/07/24 03:21 Last Pain Assessment 02/07/24 13:07 Last MAR Pain Assessment 02/07/24 03:21 Last ORT Total Score 0 02/07/24 04:28 Last ORT Risk Category Low Risk 02/07/24 04:28 Review of Systems ROS Status of ROS 10 or more systems reviewed and unremark able except as noted in history and below [facility] Medical History (Updated 02/07/24 @ 14:02 by Precious Swartz NP) BPH (benign prostatic hyperplasia) ?N40.0 - Benign prostatic hyperplasia without lower urinary tract symptoms (ICD-10) Hyperlipidemia ?E78.5 - Hyperlipidemia, unspecified (ICD-10) Gout ?M10.9 - Gout, unspecified (ICD-10) Petechiae ?R23.3 - Spontaneous ecchymoses (ICD-10) Chronic venous stasis ?I87.8 - Other specified disorders of veins (ICD-10) Type 2 diabetes mellitus with diabetic polyneuropathy ?E11.42 - Type 2 diabetes mellitus with diabetic polyneuropathy (ICD-10) Benign essential hypertension ?I10 - Essential (primary) hypertension (ICD-10) Type 2 diabetes mellitus with hyperglycemia ?E11.65 - Type 2 diabetes mellitus with hyperglycemia (ICD-10) BRETT (obstructive sleep apnea) ?G47.33 - Obstructive sleep apnea (adult) (pediatric) (ICD-10) Cellulitis ?L03.90 - Cellulitis, unspecified (ICD-10) PHT (portal hypertension) ?K76.6 - Portal hypertension (ICD-10) Neuropathy ?G62.9 - Polyneuropathy, unspecified (ICD-10) Diabetes ?E11.9 - Type 2 diabetes mellitus without complications (ICD-10) Blood clot in leg Cataracts, bilateral ?H26.9 - Unspecified cataract (ICD-10) Ureteral stent present ?Z96.0 - Presence of urogenital implants (ICD-10) Cellulitis of right foot ?L03.115 - Cellulitis of right lower limb (ICD-10) Kidney stones ?N20.0 - Calculus of kidney (ICD-10) Surgical History (Updated 02/07/24 @ 06:34 by Nikki Dunn, CORDELL) History of tooth extraction ?K08.409 - Partial loss of teeth, unspecified cause, unspecified class (ICD- 10) S/p bilateral blepharoplasty ?Z98.890 - Other specified postprocedural states (ICD-10) Hx of decompressive lumbar laminectomy ?Z98.890 - Other specified postprocedural states (ICD-10) History of ankle fusion ?Z98.1 - Arthrodesis status (ICD-10) History of rotator cuff surgery ?Z98.890 - Other specified postprocedural states (ICD-10) History of hernia repair ?Z98.890 - Other specified postprocedural states (ICD-10) ?Z87.19 - Personal history of other diseases of the digestive system (ICD-10) Family History (Updated 02/07/24 @ 04:25 by Nikki Dunn, CORDELL) Father Family history of cancer Family history of hypertension Mother Advanced cirrhosis of liver Family history of diabetes mellitus Social History (Updated 02/07/24 @ 04:27 by Nikki Dunn, CORDELL) Within the past year, how often did you have a drink containing alcohol: never Score interpretation: A score less than 4 is consistent with normal alcohol consumption. Smoking status: Never smoker Non-prescribed substance use: denies use Highest level of school completed/degree received: Associate degree: occupational, technical, vocational program Are you now , , , , never or living with a partner: In a typical week, how many times do you talk on the telephone with family, friends, or neighbors: 3 or more times per week How often do you get together with friends or relatives: 3 or more times per week Do you belong to any clubs or organizations such as congregation groups unions, fraternal or athletic groups, or school groups: yes Little interest or pleasure in doing things: not at all Feeling down, depressed, or hopeless: not at all Feel stressed/tense/nervous/anxious/difficulty sleeping: not at all Do you think of yourself as: straight/heterosexual Gender Identity: male Meds Home Medications and Allergies Home Medications ?Medication ?Instructions ?Recorded ?Confirmed ?Type allopurinol 300 mg tablet 300 mg PO DAILY 02/06/24 02/06/24 History aspirin 81 mg chewable tablet 81 mg PO DAILY 02/06/24 02/06/24 History biotin 10,000 mcg capsule 10,000 mcg PO BID 02/06/24 02/06/24 History dapagliflozin propanediol 10 mg 10 mg PO DAILY 02/06/24 02/06/24 History tablet (Farxiga) doxycycline monohydrate 100 mg 100 mg PO Q24H 02/06/24 02/06/24 History capsule fenofibrate 160 mg tablet 160 mg PO DAILY 02/06/24 02/06/24 History ferrous sulfate 325 mg (65 mg 325 mg PO DAILY 02/06/24 02/06/24 History iron) tablet (Feosol) gabapentin 300 mg capsule 300 mg PO Q12H 02/06/24 02/06/24 History hydrochlorothiazide 25 mg tablet 25 mg PO DAILY 02/06/24 02/06/24 History insulin detemir U-100 100 unit/mL 10 unit subcut BID 02/06/24 02/07/24 History (3 mL) subcutaneous pen (Levemir FlexPen) losartan 100 1 tab PO DAILY 02/06/24 02/06/24 History mg-hydrochlorothiazide 12.5 mg tablet lutein 20 mg tablet 20 mg PO DAILY 02/06/24 02/06/24 History metformin 1,000 mg tablet 1,000 mg PO BID 02/06/24 02/06/24 History metoprolol tartrate 50 mg tablet 50 mg PO BID 02/06/24 02/06/24 History sodium bicarbonate 650 mg tablet 1,950 mg PO BID 02/06/24 02/06/24 History spironolactone 25 mg tablet 25 mg PO Q12H 02/06/24 02/06/24 History tamsulosin 0.4 mg capsule 0.4 mg PO Q24H 02/06/24 02/06/24 History Allergies Allergy/AdvReac Type Severity Reaction Status Date / Time amoxicillin Allergy Intermediate Hives Verified 02/07/24 10:43 meperidine [From Demerol] AdvReac Chills Verified 02/07/24 10:43 Exam Constitutional Vital Signs, click to edit/add: Last Vital Signs Temp 97.6 F 02/07/24 08:29 Pulse 67 02/07/24 11:58 Resp 18 02/07/24 08:29 BP 120/69 02/07/24 08:29 Pulse Ox 96 02/07/24 08:29 O2 Del Method Room Air 02/07/24 08:29 Common normals: no apparent distress, oriented x3 and alert General appearance: cooperative Orientation/consciousness: Yes awake HENMT Common normals: normocephalic, head/scalp atraumatic, hearing grossly normal bilaterally, external nose normal and moist oral mucous membranes Mouth: other (R upper molar extraction site w/ mild purulence and redness) Eye Common normals: PERRL, EOMs intact bilaterally, conjunctivae normal and no scler al icterus Alignment: alignment normal Eyelid: eyelids normal Neck & C-Spine Common normals: full ROM, supple and no JVD Chest Common normals: inspection of chest normal Chest: symmetrical chest wall rise Respiratory Common normals: normal respiratory effort, no retractions, no use of accessory muscles and clear to auscultation bilaterally Effort & inspection: able to speak in complete sentences Cardio Common normals: no JVD, regular rate, regular rhythm, S1 normal heart sound, S2 normal heart sound, no gallops, no clicks, no rub and peripheral pulses 2+ throughout Heart sounds: murmur (HSM 2/6) GI Common normals: Normal to inspection, nondistended, normoactive bowel sounds present, soft to palpation, non-tender, no hepatosplenomegaly, no masses and no bruits Bladder/kidney exam: bladder normal to palpation Back & Pelvis Common normals: thoracic and lumbar spine normal to inspection Extremity Common normals: normal capillary refill and no pedal edema General: normal exam except as noted; no clubbing and no cyanosis Right lower extremity: lower leg (Chronic venous stasis dermatitis) Left lower extremity: lower leg (Erythema/rash, calor, tenderness, swelling) Neuro Roosevelt Coma Scale: GCS not evaluated Common normals: oriented x3, CN's II-XII intact bilaterally, moves all extremities, no focal motor deficits and no sensory deficits noted Sensorium/orientation: awake and alert Speech: speech normal Motor exam: strength 5/5 throughout Psych Common normals: mental status grossly normal, thought process normal, affect normal and activity/motor behavior normal Thought process: normal thought process Results Labs Labs: Short CBC 02/06/24 02/07/24 Range/Units 21:36 04:35 WBC 3.1 L 3.0 L (4.0-11.0) 10^3/uL Hgb 10.7 L 10.2 L (14.0-18.0) g/dL Hct 33.5 L 31.3 L (42.0-54.0) % Plt Count 109 L 99 L (150-450) 10^3/uL BMP 02/06/24 02/07/24 21:36 04:35 Sodium 140 139 Potassium 4.1 4.2 Chloride 102 103 Carbon Dioxide 26.0 21.1 BUN 33.0 H 30.0 H Creatinine 1.46 H 1.29 Glucose 252 H 249 H Calcium 9.7 9.7 Liver Function 02/06/24 02/07/24 Range/Units 21:36 04:35 Total Bilirubin 0.9 1.1 H (0.2-1.0) mg/dL AST 77 H 82 H (15-37) U/L ALT 80 H 83 H (16-63) U/L Alkaline Phosphatase 99 110 (46-116) U/L Albumin 3.0 L 3.0 L (3.4-5.0) g/dL Urine 02/07/24 Range/Units 02:30 Urine Color Yellow (YELLOW) Urine Clarity Clear (CLEAR) Urine pH 7.5 (5.0-9.0) Ur Specific [place] 1.010 (1.005-1.025) Urine Protein Trace (NEG/TRACE) mg/dL Urine Glucose (UA) 250 A (NEGATIVE) mg/dL Pulse Oximetry Attestation: I have reviewed the pertinent pulse oximetry results. Imaging CTA - Abdomen w/ run off: Attestation: I have reviewed the pertinent imaging results. Radiologist's impression: IMPRESSION: 1. There is no evidence of arterial stenosis or occlusion to the popliteal level. Calf vessels are not assessed in diagnostic detail due to poor contrast opacification. 2. Technically limited study due to severe obesity. Soft tissues of the flank as well as a portion of the ascending colon are outside the field of view. 3. Cardiomegaly. 4. Cirrhosis and splenomegaly compatible with portal hypertension. 5. Small left adrenal nodule of indeterminate clinical significance. Mildly enlarged slick hepatic lymph nodes. 6. There is a beaded appearance of the celiac artery which is nonspecific. This type of vascular morphology can be seen in the setting of fibromuscular dysplasia. 7. Severe muscle atrophy is present below the knees bilaterally. 8. 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 There is severe lumbar degenerative disease as well. 9. Multiple varicosities are present in the abdomen likely due to portal hypertension. IVC patency is not assessed due to contrast phase although the vessel appears normal caliber. 10. Cholelithiasis. Assessment and Plan Assessment and Plan (1) Cellulitis of left lower leg: Assessment and Plan: Acute * Adm inpatient * We expect greater than a 2 mid-night stay for medically necessary hospital care * IVPB Clindamycin initiated in the ED - no improvement after 2 doses. D/C * Start IVPB Levaquin and Linezolid for broad gram neg and gram pos coverage in pt with extensive history of poorly controlled infections, uncontrolled DM2 * Nursing to joseluis cellulitic margins * CBC, CMP daily (2) Allergic drug rash: Assessment and Plan: Acute * Amoxicillin added to allergy documentation * Solu-medrol 125 mg IVP x 1 given in ED * Continue with Solu-medrol 80 mg q8h * PRN PO Benadryl (3) ROSIO (acute kidney injury): Assessment and Plan: Acute * Mild - BUN 33, Cr 1.46, GFR 47 in ED * Baseline - BUN 15-18, Cr 0.95-1.1, GFR >60 * Continue NS IVF at 125/hr * Hold renal toxic medications, including home metformin, losartan, HCTZ, and spironolactone * Daily CMP (4) Tooth abscess: Assessment and Plan: Acute * Suspect persistent abscess * IVPB Levaquin as above (5) Neuropathy: Assessment and Plan: Chronic * Continue home gabapentin (6) Diabetes: Assessment and Plan: Chronic * Hold home Farxiga for now during acute hospitalization/infection * Hold home metformin d/t ROSIO * Levemir 10 un BID for now, titrate up as clinically indicated * ACHS glucometer checks * High dose SSI for glucose correction (7) Gout: Assessment and Plan: Chronic * Continue home allopurinol (8) Hyperlipidemia: Assessment and Plan: Chronic * Continue home fibrate (9) Benign essential hypertension: Assessment and Plan: Chronic * Continue home metoprolol * Hold home HCTZ/Losartan/Spironolactone d/t ROSIO (10) BPH (benign prostatic hyperplasia): Assessment and Plan: Chronic * Continue home tamsulosin
[2024-02-07 16:22] LABS: Glucometer 336 mg/dL (74-106)
[2024-02-07] MEDS: HYDROCODONE/ACET 5-325 MG TABLET 1 TAB PO ×2 (16:56→21:45)
[2024-02-07 19:43] LABS: Glucometer 332 mg/dL (74-106)
[2024-02-08] VITALS (19 sets, daily range): BP systolic 117–156; BP diastolic 37–83; PULSE 39–72; TEMP 36.4–36.8; O2SAT 90–95
[2024-02-08] MEDS: LINEZOLID IN DEXTROSE 5% 600 MG/300 ML PIGGYBACK 150 MG IV (00:12)
--- NOTE | 2024-02-08 01:02 | ECG_ITS ---
[facility] Test Date: 2024-02-08 Pat Name: DUARTE ABRAHAM Department: Room: 2181 Gender: Male Emergency Medical Technician: : 1950 Requested By: NELI BOWLES Order Number: [id number] Reading MD: DIONNE LOPEZ Measurements Intervals [place] Rate: 47 P: 48 NV: 194 QRS: 17 QRSD: 155 T: -3 QT: 470 QTc: 420 Interpretive Statements SINUS BRADYCARDIA WITH OCCASIONAL SUPRAVENTRICULAR PREMATURE COMPLEXES RIGHT BUNDLE BRANCH BLOCK [120+ ms QRS DURATION, UPRIGHT V1, 40+ ms S IN I/aVL/V4/V5/V6] Electronically Signed On 02-08-2024 6:55:34 EDT by DIONNE LOPEZ
[2024-02-08 01:57] LABS: Troponin I High Sensitivity 11.1 pg/mL (4.0-76.1)
--- NOTE | 2024-02-08 02:01 | PC.NURSE ---
Priscilla RN, informed primary nurse of change in telemetry. Pt telemetry showed bundle branch block as well as a 7-beat run of V-tach. Night hospitalist was notified and ordered STAT EKG and troponin. Pt denied any chest pain or discomfort. HR 57 and irregular. BP 124/66. EKG was completed with preliminary sent to hospitalist. Troponin was 11.1 and night hospitalist notified of this as well. No new ordered at this time. pt is resting in bed at this time and still has no complaints of pain or discomfort. Pt denies needs at this time and has call light in reach.
[2024-02-08] MEDS: METHYLPREDNISOLONE SOD SUCC PF 40 MG/ML VIAL 80 MG IVP ×3 (04:17→20:38)
[2024-02-08] MEDS: HYDROCODONE/ACET 5-325 MG TABLET 1 TAB PO ×2 (04:21→16:00)
[2024-02-08 05:24] LABS: Hematocrit 29.5 % (42.0-54.0); Hemoglobin 9.5 g/dL (14.0-18.0); Immature Granulocytes Abs Auto 0.03 10^3/uL (0.00-0.03); Immature Granulocytes Pct Auto 0.9 % (0.0-0.5); Lymphocytes Absolute Auto 0.3 10^3/uL (1.2-3.8); Lymphocytes Percent Auto 9.5 % (20.5-60.0); Mean Corpuscular HGB Conc 32.2 g/dL (29.9-35.2); Mean Corpuscular Hemoglobin 31.7 pg (25.9-34.0); Mean Corpuscular Volume 98.3 fL (80.0-94.0); Mean Platelet Volume 10.6 fL (9.5-13.5); Monocytes Absolute Auto 0.2 10^3/uL (0.3-0.8); Monocytes Percent Auto 6.3 % (1.7-12.0); Neutrophils Absolute Auto 2.6 10^3/uL (1.4-6.5); Neutrophils Percent Auto 83.3 % (43.0-75.0); Platelet Count 91 10^3/uL (150-450); White Blood Count 3.2 10^3/uL (4.0-11.0)
[2024-02-08 05:52] LABS: Alanine Aminotransferase 72 U/L (16-63); Albumin Globulin Ratio 0.8; Albumin Level 2.7 g/dL (3.4-5.0); Alkaline Phosphatase 93 U/L (46-116); Anion Gap 13.3; Aspartate Amino Transferase 44 U/L (15-37); BUN Creatinine Ratio 24.5; Bilirubin Total 0.5 mg/dL (0.2-1.0); Calcium 9.1 mg/dL (8.5-10.1); Carbon Dioxide 25.1 mmol/L (21.0-32.0); Chloride 105 mmol/L (98-107); Estimated GFR (African America >60 (>=60); Estimated GFR (Non-African Ame >60 (>=60); Globulin 3.2 g/dL; Glucose 219 mg/dL (74-106); Potassium 4.4 mmol/L (3.5-5.1); Sodium 139 mmol/L (136-145); Total Protein 5.9 g/dL (6.4-8.2)
[2024-02-08 07:56] LABS: Glucometer 226 mg/dL (74-106)
[2024-02-08] MEDS: TAMSULOSIN HCL 0.4 MG CAPSULE 0.400000000000000022 MG PO (09:28)
[2024-02-08] MEDS: L. ACIDOPHILUS/L.BULGARICUS 1 PACKET GRAN.PACK PO ×2 (09:28→20:23)
[2024-02-08] MEDS: FERROUS SULFATE 325 MG TABLET PO (09:28)
[2024-02-08] MEDS: SODIUM BICARBONATE 325 MG TABLET 1950 MG PO ×2 (09:28→20:23)
[2024-02-08] MEDS: FENOFIBRATE 54 MG TABLET 162 MG PO (09:28)
[2024-02-08] MEDS: ALLOPURINOL 300 MG TABLET PO (09:28)
[2024-02-08] MEDS: INSULIN ASPART 300 UNIT/3 ML PEN SUBQ ×4 (09:30→21:16)
[2024-02-08] MEDS: INSULIN DETEMIR 300 UNIT/3 ML INSULN.PEN 10 UNIT SUBQ ×2 (09:30→20:23)
[2024-02-08] MEDS: 0.9 % SODIUM CHLORIDE 1,000 ML 125 ML IV ×2 (09:31→17:38)
[2024-02-08] MEDS: GABAPENTIN 300 MG CAPSULE PO ×2 (09:40→20:23)
[2024-02-08] MEDS: LEVOFLOXACIN IN DEXTROSE 5 % 750 MG/150 ML IV.SOLN 100 MG IV (10:49)
[2024-02-08] MEDS: ACETAMINOPHEN 325 MG TABLET 650 MG PO (10:58)
[2024-02-08 11:18] LABS: Glucometer 276 mg/dL (74-106)
--- NOTE | 2024-02-08 11:39 | CM.NOTE ---
Rounds made with Dr. Saenz, no discharge for pt today. Redness in leg and L hand is improved, pt states he is able to make a fist now. Discussed with pt PT recommendations for HH services. Pt is in agreement to HH, he has had services in the past. Pt would like to ask his the name of company they have used in the past. SW updated and will check back with pt.
--- NOTE | 2024-02-08 12:05 | PM.PN ---
Progress Note: Subjective Subjective Interval history: Patient improved this am. Redness and swelling in leg improved. Rash on hands and face fading and not as itchy. Developed extra beats and PVCs on telemetry. Reports history of BRETT and not on CPAP since had tooth infection. Normal appetite and no emesis or diarrhea. No chest pain or SOB. Exam Constitutional Vital Signs, click to edit/add: Last Vital Signs Temp 97.6 F 02/08/24 09:43 Pulse 48 L 02/08/24 11:59 Resp 18 02/08/24 09:43 BP 117/70 02/08/24 09:43 Pulse Ox 92 L 02/08/24 09:43 O2 Del Method Room Air 02/08/24 09:43 Documenting provider has reviewed patient's vital signs: yes Common normals: no apparent distress, oriented x3 and alert HENMT Common normals: normocephalic Eye Common normals: PERRL and EOMs intact bilaterally Respiratory Common normals: normal respiratory effort and clear to auscultation bilaterally Cardio Common normals: regular rate, regular rhythm, no gallops, no murmurs and no rub GI Common normals: Normal to inspection, nondistended, normoactive bowel sounds present and non-tender Extremity Left lower extremity: lower leg (Fading erythema and less edema compared to day prior) Progress Note: Objective Labs Labs: Short CBC 02/08/24 Range/Units 04:43 WBC 3.2 L (4.0-11.0) 10^3/uL Hgb 9.5 L (14.0-18.0) g/dL Hct 29.5 L (42.0-54.0) % Plt Count 91 L (150-450) 10^3/uL BMP 02/08/24 04:43 Sodium 139 Potassium 4.4 Chloride 105 Carbon Dioxide 25.1 BUN 27.0 H Creatinine 1.10 Glucose 219 H Calcium 9.1 Liver Function 02/08/24 Range/Units 04:43 Total Bilirubin 0.5 (0.2-1.0) mg/dL AST 44 H (15-37) U/L ALT 72 H (16-63) U/L Alkaline Phosphatase 93 (46-116) U/L Albumin 2.7 L (3.4-5.0) g/dL Progress Note: A&P Assessment and Plan (1) Cellulitis of left lower leg: (2) Allergic drug rash: (3) Petechiae: (4) ROSIO (acute kidney injury): (5) Type 2 diabetes mellitus with hyperglycemia: (6) Benign essential hypertension: (7) Type 2 diabetes mellitus with diabetic polyneuropathy: (8) Chronic venous stasis: Plan Cellulitis responding well to antibiotics and continue. Drug rash fading and continue solu-medrol. Continue PT/OT for weakness. Monitor labs and vitals. If continues to improve likely home in am.
--- NOTE | 2024-02-08 13:22 | SWNOTE1 ---
SW spoke with pt and in room about home health services. They are in agreement and he has had [facility] in past and would like to use them. PT did ask SW about IV anbx, at this time SW has not been notified about pt being discharged on IV's. SW to check back tomorrow. Referral sent to [facility]. Referral included face sheet, ED note, H&P, provider notes, and PT/OT notes.
[2024-02-08] MEDS: LINEZOLID IN DEXTROSE 5% 600 MG/300 ML PIGGYBACK 300 MG IV (13:52)
[2024-02-08 16:03] LABS: Glucometer 300 mg/dL (74-106)
--- NOTE | 2024-02-08 17:47 | PT.DAILY ---
Physical Therapy Daily Note PT Daily Note/Assess Start: 02/08/24 17:41 Freq: Status: Active Protocol: Document 02/08/24 17:41 REJI (Rec: 02/08/24 17:47 [email or web address] [id number]) Physical Therapy Daily Note/Assessment Time In/Time Out Time In 17:15 Time Out 17:35 Pain In Pain N/A Pain Out Pain N/A Subjective Subjective Pt supine upon arrival. Agrees to PT. Denies much pain currently - was medicated prior to session Therapeutic Activity Time Therapeutic Activity Minutes (minutes) 10 Therapeutic Activity Units 1 Therapeutic Activity Treatment Bed Mobility Ability Standby Assistance Chair Transfer Ability Standby Assistance Therapeutic Activity Comments Supine>sit SBA with increased time needed and HOB elevated. Sit>stand to RW SBA. Pt amb 20 ' with RW into restroom, assistance for IV pole and SBA . Able to doff brief and sit on toilet using grab bar. No assistance needed for pericare but he does need assistance to cathi new brief. Static stand at sink 1 min to wash and dry hands without LOB. Amb 25' to BS chair. Dinner arrives and 3 family members present. Pt remains in BS chair with call light in reach and needs met. Total Physical Therapy Time Total Therapy Minutes 10 Total Physical Therapy Units 1 Summary Daily Note Summary Steady with gait using RW. NO LOB but slower maggie. Functional transfers and mobility require only SBA.
[2024-02-08 20:14] LABS: Glucometer 296 mg/dL (74-106)
[2024-02-09] VITALS (9 sets, daily range): BP systolic 142; BP diastolic 76–78; PULSE 38–59; TEMP 36.1; O2SAT 93–94
[2024-02-09] MEDS: HYDROCODONE/ACET 5-325 MG TABLET 1 TAB PO (01:38)
[2024-02-09] MEDS: LINEZOLID IN DEXTROSE 5% 600 MG/300 ML PIGGYBACK 300 MG IV (01:38)
[2024-02-09] MEDS: 0.9 % SODIUM CHLORIDE 1,000 ML 125 ML IV ×2 (01:39→09:50)
[2024-02-09] MEDS: METHYLPREDNISOLONE SOD SUCC PF 40 MG/ML VIAL 80 MG IVP ×2 (04:20→12:26)
[2024-02-09 04:55] LABS: Hematocrit 29.4 % (42.0-54.0); Hemoglobin 9.5 g/dL (14.0-18.0); Immature Granulocytes Abs Auto 0.09 10^3/uL (0.00-0.03); Immature Granulocytes Pct Auto 2.5 % (0.0-0.5); Lymphocytes Absolute Auto 0.3 10^3/uL (1.2-3.8); Lymphocytes Percent Auto 9.2 % (20.5-60.0); Mean Corpuscular HGB Conc 32.3 g/dL (29.9-35.2); Mean Corpuscular Hemoglobin 31.9 pg (25.9-34.0); Mean Corpuscular Volume 98.7 fL (80.0-94.0); Mean Platelet Volume 10.7 fL (9.5-13.5); Monocytes Absolute Auto 0.2 10^3/uL (0.3-0.8); Monocytes Percent Auto 5.6 % (1.7-12.0); Neutrophils Percent Auto 82.7 % (43.0-75.0); Platelet Count 98 10^3/uL (150-450); Red Blood Count 2.98 10^6/uL (4.70-6.10); Red Cell Distribution Width 14.9 % (11.0-15.0); White Blood Count 3.6 10^3/uL (4.0-11.0)
[2024-02-09 05:13] LABS: Alanine Aminotransferase 69 U/L (16-63); Albumin Globulin Ratio 0.9; Albumin Level 2.6 g/dL (3.4-5.0); Alkaline Phosphatase 90 U/L (46-116); Aspartate Amino Transferase 45 U/L (15-37); BUN Creatinine Ratio 27.7; Bilirubin Total 0.4 mg/dL (0.2-1.0); Calcium 8.7 mg/dL (8.5-10.1); Carbon Dioxide 23.5 mmol/L (21.0-32.0); Chloride 105 mmol/L (98-107); Estimated GFR (African America >60 (>=60); Estimated GFR (Non-African Ame >60 (>=60); Glucose 232 mg/dL (74-106); Potassium 4.5 mmol/L (3.5-5.1); Sodium 138 mmol/L (136-145); Total Protein 5.6 g/dL (6.4-8.2)
[2024-02-09 07:40] LABS: Glucometer 238 mg/dL (74-106)
[2024-02-09] MEDS: INSULIN ASPART 300 UNIT/3 ML PEN SUBQ ×2 (08:28→11:40)
[2024-02-09] MEDS: INSULIN DETEMIR 300 UNIT/3 ML INSULN.PEN 10 UNIT SUBQ (09:49)
[2024-02-09] MEDS: SODIUM BICARBONATE 325 MG TABLET 1950 MG PO (09:51)
[2024-02-09] MEDS: FERROUS SULFATE 325 MG TABLET PO (09:51)
[2024-02-09] MEDS: METOPROLOL TARTRATE 50 MG TABLET PO (09:51)
[2024-02-09] MEDS: FENOFIBRATE 54 MG TABLET 162 MG PO (09:51)
[2024-02-09] MEDS: ALLOPURINOL 300 MG TABLET PO (09:51)
[2024-02-09] MEDS: L. ACIDOPHILUS/L.BULGARICUS 1 PACKET GRAN.PACK PO (09:51)
[2024-02-09] MEDS: GABAPENTIN 300 MG CAPSULE PO (09:59)
--- NOTE | 2024-02-09 10:26 | SWNOTE1 ---
[facility] is able to accept. ALBERTO sent CRF, dc med rec, and dc summary to [facility].
[2024-02-09] MEDS: LEVOFLOXACIN IN DEXTROSE 5 % 750 MG/150 ML IV.SOLN 100 MG IV (10:38)
--- NOTE | 2024-02-09 10:38 | P.DS_ITS ---
DS: Providers Provider Date of admission: 02/07/24 03:57 Primary care physician: NELI BOWLES Consults: 02/07/24 10:18 Physical Therapy Eval and Treat Routine Reason for consultation: BLE pain/weakness 02/07/24 13:42 Physical Therapy Eval and Treat Routine Reason for consultation: LLE pain, impaired ambulation Has provider been notified: No 02/07/24 13:43 Occupational Therapy Eval and Treat Routine Reason for consultation: Bilat hand swelling/rash. Poor ADL compensation Has provider been notified: No DS: Diagnosis Discharge Diagnosis (1) Cellulitis of left lower leg: (2) Allergic drug rash: (3) Petechiae: (4) ROSIO (acute kidney injury): (5) Type 2 diabetes mellitus with hyperglycemia: (6) Benign essential hypertension: (7) Type 2 diabetes mellitus with diabetic polyneuropathy: (8) Chronic venous stasis: DS: Summary Hospital Course Hospital Course: Reason for admission: See ER note and H&P for details. 73 y/o male to ER with redness and swelling to LLE. History of cellulitis on RLE years ago and seen by ID. On doxy prophylactically since. History of chronic venous stasis and bilateral LE edema and discoloration. Recent dental infection and treated with amoxicillin. Developed increased redness and swelling in LLE. Leg painful and warm to touch. Developed redness and swelling in hands and rash on face. To ER and WBC low. CT abdomen normal. Found cellulitis and drug reaction and admitted for treatment. Hospital course: Started IV clindamycin. No change in redness or swelling to leg. Skin remained warm to touch. Continued swelling in hands and rash on face. Stopped clindamycin and changed to zyvox and levaquin. Added solu-medrol and benadryl for drug reaction. Resumed home medication. Slowly improved. Started PT for weakness. Redness in legs slowly faded. Hands not as swollen or red. Redness on face faded. Afebrile. WBC improved. [place] better and discharged home in stable condition. Will take zyvox x 14 days and levaquin x 7 days. Resume home medication as directed. Will make appointment with vascular for venous stasis. Time Spent with Patient Time attestation: Total time spent providing and/or coordinating discharge services: Exam Constitutional Vital Signs, click to edit/add: Last Vital Signs Temp 97.0 F L 02/09/24 08:30 Pulse 59 L 02/09/24 09:54 Resp 18 02/09/24 08:30 BP 142/76 H 02/09/24 08:30 Pulse Ox 93 L 02/09/24 08:30 O2 Del Method Room Air 02/09/24 08:30 Documenting provider has reviewed patient's vital signs: yes Common normals: no apparent distress, oriented x3 and alert HENMT Common normals: normocephalic Eye Common normals: PERRL and EOMs intact bilaterally Respiratory Common normals: normal respiratory effort and clear to auscultation bilaterally Cardio Common normals: regular rate, regular rhythm, no gallops, no murmurs and no rub GI Common normals: Normal to inspection, nondistended, normoactive bowel sounds present and non-tender Extremity General: edema (2+ bipedal edema) Right lower extremity: lower leg (Chronic venous stasis dermatitis) Left lower extremity: lower leg (Erythema much improved and not warm to touch) DS: Data Data Completed and Pending Labs on day of discharge: Labs from last 24 hours 02/09/24 02/09/24 02/08/24 07:39 04:30 20:13 WBC 3.6 L RBC 2.98 L Hgb 9.5 L Hct 29.4 L MCV 98.7 H MCH 31.9 MCHC 32.3 RDW 14.9 Plt Count 98 L MPV 10.7 Neut % (Auto) 82.7 H Lymph % (Auto) 9.2 L [place] % (Auto) 5.6 Eos % (Auto) 0.0 L Baso % (Auto) 0.0 L Neut # (Auto) 3.0 Lymph # (Auto) 0.3 L [place] # (Auto) 0.2 L Eos # (Auto) 0.0 Baso # (Auto) 0.0 Abs Immat Gran (auto) 0.09 H Imm/Tot Granulo (auto) 2.5 H Sodium 138 Potassium 4.5 Chloride 105 Carbon Dioxide 23.5 Anion Gap 14.0 BUN 28.0 H Creatinine 1.01 Est GFR ( Amer) >60 Est GFR (Non-Af Amer) >60 BUN/Creatinine Ratio 27.7 Glucose 232 H Calcium 8.7 Total Bilirubin 0.4 AST 45 H ALT 69 H Alkaline Phosphatase 90 Total Protein 5.6 L Albumin 2.6 L Globulin 3.0 Albumin/Globulin Ratio 0.9 POC Glucose 238 H 296 H 02/08/24 02/08/24 16:02 11:18 WBC RBC Hgb Hct MCV MCH MCHC RDW Plt Count MPV Neut % (Auto) Lymph % (Auto) [place] % (Auto) Eos % (Auto) Baso % (Auto) Neut # (Auto) Lymph # (Auto) [place] # (Auto) Eos # (Auto) Baso # (Auto) Abs Immat Gran (auto) Imm/Tot Granulo (auto) Sodium Potassium Chloride Carbon Dioxide Anion Gap BUN Creatinine Est GFR ( Amer) Est GFR (Non-Af Amer) BUN/Creatinine Ratio Glucose Calcium Total Bilirubin AST ALT Alkaline Phosphatase Total Protein Albumin Globulin Albumin/Globulin Ratio POC Glucose 300 H 276 H Preliminary micro results at discharge 02/06/24 22:41 - Preliminary Blood NO GROWTH AT 36-48 HOURS. FINAL TO FOLLOW. 02/06/24 21:36 Blood Culture Result 1 - Preliminary Blood NO GROWTH AT 36-48 HOURS. FINAL TO FOLLOW. Discharge Plan Discharge Disposition: Home Health Service Condition: Fair Discharge Medications: New prednisone 50 mg tablet 50 mg PO DAILY 5 Days Qty: 5 0RF levofloxacin 750 mg tablet 750 mg PO DAILY 7 Days Qty: 7 0RF linezolid 600 mg tablet 600 mg PO BID 10 Days Qty: 20 0RF Continued allopurinol 300 mg tablet 300 mg PO DAILY Rx Instructions: HS dapagliflozin propanediol [Farxiga] 10 mg tablet 10 mg PO DAILY Rx Instructions: in AM fenofibrate 160 mg tablet 160 mg PO DAILY gabapentin 300 mg capsule 300 mg PO Q12H hydrochlorothiazide 25 mg tablet 25 mg PO DAILY Levemir FlexPen 100 unit/mL (3 mL) insulin pen 10 unit SUBCUT BID Rx Instructions: Sliding Scale losartan-hydrochlorothiazide 100-12.5 mg tablet 1 tab PO DAILY metformin 1,000 mg tablet 1,000 mg PO BID metoprolol tartrate 50 mg tablet 50 mg PO BID sodium bicarbonate 650 mg tablet 1,950 mg PO BID spironolactone 25 mg tablet 25 mg PO Q12H Rx Instructions: 2 in am and 1 at HS tamsulosin 0.4 mg capsule 0.4 mg PO Q24H Rx Instructions: at HS biotin 10,000 mcg capsule 10,000 mcg PO BID ferrous sulfate [Feosol] 325 mg (65 mg iron) tablet 325 mg PO DAILY lutein 20 mg tablet 20 mg PO DAILY Rx Instructions: give with meal/snack aspirin 81 mg tablet,chewable 81 mg PO DAILY Held doxycycline monohydrate 100 mg capsule 100 mg PO Q24H Hold Instructions: Hold until done with zyvox and levaquin Activity: resume usual activities as tolerated Diet: advance to your usual diet Print Language: Occitan Patient Instructions: Prednisone (By mouth), Levofloxacin (By mouth) (Levaquin, Levaquin Leva-fredi), Linezolid (By mouth), Cellulitis (GEN), Venous Insufficiency (DC) 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 Phone number is [phone]. They should contact within 48 hours of discharge. Forms: Portal Instructions Follow Up Appointments: February 13 @ 2:30pm with Dr. Bowles [phone] March 09 @ 10:10am with Dr. Mora (vascular) at the Wound and Podiatry office in the [address] Gwendolyn Rodgers [phone]
--- NOTE | 2024-02-09 10:54 | CM.NOTE ---
Rounds made with Dr. Saenz. Plan to discharge today with po antibiotics, steroids and may use Benadryl OTC. Dr. Saenz discussed need to see Vascular Surgeon for follow up. Appointment to be made. Mr. Balderas verbalizes understanding.
[2024-02-09 11:23] LABS: Glucometer 320 mg/dL (74-106)
--- NOTE | 2024-02-10 15:09 | CM.DCFOLLOWU ---
Person spoke with: patient How are you feeling? well How is your pain? no pain Did you understand your discharge instructions? yes Do you have any questions about your discharge instructions? no Were you given any prescriptions at discharge? yes Were you able to get your prescriptions filled? yes except for one, they had to order and it should be in this afternoon Do you understand how to take your medications as ordered? yes Do you have any questions about your follow up appointment and do you plan to keep your follow up appointment? no questions, reviewed all follow ups Is there anything else that you would like to discuss? no Questions/Comments/Concerns/Other: N/A
== END 2024-02-09 12:39 | disposition home health service (06) | DRG 603 ==
LOC: ER 02-07 03:22 → MS 02-07 04:00
PROVIDERS: Nurse Practitioner; Nurse Practitioner Acute Care; Registered Nurse; Admitting Provider Family Medicine; Emergency Provider Internal Medicine; PCP Family Medicine; Visit Provider Family Medicine
DX: L03.116 Cellulitis of left lower limb (principal); N17.9 Acute kidney failure, unspecified; L27.1 Localized skin eruption due to drugs and medicaments taken internally; T36.0X5A Adverse effect of penicillins, initial encounter; K04.7 Periapical abscess without sinus; E11.40 Type 2 diabetes mellitus with diabetic neuropathy, unspecified; E11.65 Type 2 diabetes mellitus with hyperglycemia; M1A.9XX0 Chronic gout, unspecified, without tophus (tophi); E78.5 Hyperlipidemia, unspecified; I10 Essential (primary) hypertension; N40.0 Benign prostatic hyperplasia without lower urinary tract symptoms; G47.33 Obstructive sleep apnea (adult) (pediatric); R23.3 Spontaneous ecchymoses; I87.8 Other specified disorders of veins; Z87.442 Personal history of urinary calculi; Z98.1 Arthrodesis status; Z79.82 Long term (current) use of aspirin; Z79.4 Long term (current) use of insulin; Z79.84 Long term (current) use of oral hypoglycemic drugs; Z79.2 Long term (current) use of antibiotics; Z79.899 Other long term (current) drug therapy; Z88.0 Allergy status to penicillin
CPT/HCPCS: 36415; 75635; 80053; 81001; 82948; 83605; 84145; 84484; 85025; 85652; 86140; 87040; 93005; 96365; 96366; 96367; 96368; 96375; 96376; 97162; 97165; 97530; 97535; 99285; J2020; J2919; Q9967

== ENCOUNTER 2024-03-20 12:56 | Outpatient (OUT) | payer MEDICARE, SELFPAY ==
--- NOTE | 2024-03-20 12:59 | VEIN_ITS ---
Patient Name: DUARTE ABRAHAM MR#: [id number] : 1950 Exam Date: 03/20/2024 Ordering Doctor: KATHERINE BHAGAT M.D. RADIOLOGY REPORT PROCEDURE: VC EXT VENOUS REFLUX ROSE MARY LMTD COMPARISON: None. INDICATIONS: I83.813 Pain due to varicose veins of bilateral legs TECHNIQUE: Duplex imaging of the lower extremity to assess the deep and superficial venous system for the presence of deep or superficial venous incompetence and to document the location and severity of disease. The study includes evaluation of the great saphenous vein (GSV), anterior accessory saphenous vein (AASV) and small saphenous vein (SSV). Patient scanned in reverse Trendelenburg and standing. FINDINGS: RIGHT LOWER EXTREMITY: Saphenofemoral Junction Reflux: Yes 9.3mm 0.5 sec GSV: Diam (mm) Reflux/ Time (sec) Proximal Thigh 10.7 Yes 0.8 Mid Thigh 5.8 Yes 0.6 Distal Thigh 5.7 Yes 0.5 Prox Calf 6.6 Yes 4.0 Mid Calf 3.8 Yes 0.4 Saphenopopliteal Junction Reflux: 6.1mm Yes 4.3 SSV: Proximal Calf 7.6 Yes 3.8 Mid Calf 3.3 Yes 0.6 AASV: Proximal Thigh 5.8 Yes 1.4 Mid Thigh 3.3 Yes 0.4 Distal Thigh Thrombi: No acute or chronic thrombus. Compressibility: Normal. Flow: Mild deep venous reflux. Preforator: Mid posterior calf 3.6 mm with 1.9s reflux. Tech Note: Complex fluid collection medial popliteal fossa measures 5.6 x 2.8 x 1.4 cm. Calf deep veins not well visualized. Incompetent varicose vein mid posterior calf measures 4.0 mm with 1.5s reflux. Varicose vein distal medial lower leg measures 4.0 mm with 1.2s reflux. 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 Compressibility: Partial compressibility of mid calf GSV. Flow: Mild deep venous reflux. [place]: Distal medial lower leg 3.7 mm with 0.8s reflux. Tech Note: Anechoic fluid collection medial popliteal fossa measures 4.2 x 3.4 x 1.7 cm. Thigh extension of left SSV. Incompetent varicose vein mid medial lower leg measures 4.5 mm with 0.6s reflux. Varicose vein distal medial/anterior lower leg measures 4.0 mm with 0.9s relfux. CONCLUSION: 1. Moderate to severe bilateral great saphenous vein venous insufficiency with dilatation and saphenofemoral junction reflux 2. Moderate to severe right small saphenous vein venous insufficiency with dilatation and saphenopopliteal junction reflux 3. Mild left small saphenous vein venous insufficiency without dilatation 4. [id number] right anterior accessory saphenous vein venous insufficiency with borderline dilatation 5. Mild bilateral deep vein reflux 6. Bilateral popliteal fossa collections likely representing popliteal cysts 7. Bilateral incompetent varicose veins 1. Dictated by: Mikie Latham MD on 03/22/2024 at 08:54 Approved by: Mikie Latham MD on 03/22/2024 at 08:57
--- OUTSIDE RECORDS SUMMARY | 2024-03-20 13:14 | XMS_ITS | CCD ---
Author Organization [facility] ion Partnership [facility] Care Team Providers Care Unit Aide Name Role Phone Khoa Bowles Primary Care Provider [phone] Leopoldo Frye Attending Provider Elder Qiu Attending [...] Unavailable BEACH ., DR WALLACE Admitting Unavailable TORRESELINA Consulting Unavailable BEACH ., DR WALLACE Consulting [...] Unavailable BEACH ., DR WALLACE Admitting Unavailable AGENDA, DR TALI Jeffries Consulting Unavailable BEACH ., DR WALLACE Consulting Unavailable HEMEYER ., DR QUINTEROS Primary Care Unavailable BEACH ., DR WALLACE Attending Unavailable BEACH ., DR WALLACE Admitting Unavailable MD Khoa Bowles Primary Care Provider [phone] MARIZOL Ryan Attending Provider Jude BEACH Attending Unavailable BEACH, Jude Crespo Attending Unavailable BEACH, Jude R Attending Unavailable BEACH, Jude R Attending Unavailable BEACH, Jude R Attending Unavailable BEACH, Jude Crespo Attending Unavailable Khoa Bowles MD Primary Care Provider Jude Beach MD Unavailable [phone] Preet Enrique DPM Unavailable Yaquelin Ryan Attending Unavailable Yaquelin Ryan Admitting Unavailable Khoa Bowles Primary Care Unavailable KATHERINE BHAGAT Attending Unavailable KHOA BOWLES Referring Unavailable KHOA BOWLES Primary Care Unavailable KHOA BOWLES Attending Unavailable PREET ENRIQUE Attending Unavailable KHOA BOWLES Attending Unavailable KHOA BOWLES Attending Unavailable PREET ENRIQUE Attending Unavailable Allergies Allergy Classification Reported Allergen(s) Allergy Type Date of Onset Reaction(s) Facility Opioid Agonists (1 source) Meperidine Drug Allergy 1 [facility] (4 sources) Meperidine / Promethazine; Translations: [meperidine-prome thazine] Drug Allergy Unknown (qualifier value) [facility] (6 sources) Meperidine; Translations: [meperidine] Drug Allergy 4 Tremor (finding) [facility] (2 sources) Meperidine Drug Allergy 3 [facility] (2 sources) pioglitazone Drug Allergy 3 [facility] (1 source) Doxycycline; Translations: [doxycycline] Drug Allergy [facility] (1 source) Meperidine Drug Allergy 2 [facility] (1 source) pioglitazone Drug Allergy 3 Swelling [facility] (1 source) Meperidine Drug Allergy 1 [facility] Medications Current Medications Medication Drug Class(es) Dates [...] Daily, # 90 tab(s), Refills(s) 3, Pharmacy: [facility]/pharmacy #[id number], 185, cm, 12/22/21 12:11:00 EST, Height/Length Dosing, 136.7, kg, 12/22/21 12:11:00 EST, Weight Dosing Start Date: 12/30/22 Status: Ordered Start: 11-09-2018 take 1 tablet by noemi th once daily allopurinol 300 mg Tab 300 mg = 1 tab(s), Oral, Daily, # 90 tab(s), Refills(s) 3, Pharmacy: [facility]/pharmacy #[id number], 185, cm, 09/15/21 11:40:00 EST, Height/Length [...] oral capsule (3 sources) Start: 11-09-2018 take 78101 ug by mouth twice daily Biotin Active 48328 MCG PO Twice daily November 09, 2018 3:30pm biotin 11996 MCG tablet 1 (one) time each day [...] day(s), # 90 tab(s), Refills(s) 0, Pharmacy: [facility]/pharmacy #[id number], 185, cm, 12/22/21 12:11:00 EST, Height/Length Dosing, [...] BID, # 180 tab(s), Refills(s) 11, Pharmacy: [facility]/pharmacy #[id number], 185, cm, 12/22/21 12:11:00 EST, Height/Length Dosing, 136.7, kg, 12/22/21 12:11:00 EST, Weight Dosing Start Date: 11/08/22 Status: Ordered Start: 11-05-2021 End: 10-31-2022 take 3 tablets by mouth twice daily sodium bicarbonate 650 mg Tab 1,950 mg = 3 tab(s), Oral, BID, X 90 day(s), # 540 tab(s), Refills(s) 3, [id number], 185, cm, 09/15/21 11:40:00 EST, [...] Daily, # 90 cap(s), Refills(s) 3, Pharmacy: [facility]/pharmacy #[id number], 185, cm, 12/22/21 12:11:00 EST, Height/Length Dosing, 136.7, kg, 12/22/21 12:11:00 EST, Weight Dosing Start Date: 12/30/22 Status: Ordered Start: 11-09-2018 take 1 capsule by mo uth once daily tamsulosin 0.4 mg Cap 0.4 mg = 1 cap(s), Oral, Daily, # 90 cap(s), Refills(s) 3, Pharmacy: [facility]/pharmacy #[id number], 185, cm, 12/22/21 12:11:00 EST, Height/Length Dosing, 136.7, kg, 12/22/21 12:11:00 EST, Weight Dosing Start Date: 12/22/21 Status: Ordered take 1 capsule by mo ut every twenty-four hours in the evening Flomax [...] unguium] 12-09-2023 Episodic Other aftercare (1 source) 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; Translations: [LONGTERM CURRNT USE ANTICOAGULANTS] Onset: 3 Episodic Other aftercare (1 source) 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 drugs; Translations: [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] Onset: 3 Episodic Other aftercare (1 source) Other group home (current) drug therapy; Translations: [OTH LONGTERM CURRENT [...] radiculopathy, thoracolumbar region] Onset: 0 04-12-2023 Chronic Past or Other Problems Problem Classification Problem [...] aftercare (1 source) Polypharmacy ; Translations: [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 [place] [address] [place] [address] MRI Report Signed with Addenda Patient: Manuel Balderas MR#: [id number] : 1950 Acct:[id number] Age/Sex: 73 / M ADM Date: 08/05/23 Loc: [facility] Room: Type: [facility] Attending Dr: Yaquelin Ryan PA-C Copies to: Yaquelin Ryan PA-C Ordering Provider: Yaquelin Ryan PA-C Date of Service: 08/05/23 MR/MR lumbar spine wo con: M54.10 ([id number]) XR/XR pre/post mri xray: LUMBAR MRI ADDENDUM 1 Addendum for drive tester error: L1-L2: Diffuse broad-based disc bulge is present with ligamentum flavum hypertrophy and facet joint degenerative changes causing moderate canal and bilateral neural foraminal stenosis. Impression dictated by: Rickie Cornejo Jr., D.OSiria09/21/2023 12:23 PM Dictation Location: [facility]-15 Addendum Dictated By: Rickie Cornejo Jr, DO [...] Cornejo Jr., D.OSiria08/05/2023 3:00 PM Dictation Location: [place] [address] Transcribed By: [facility] 08/05/23 1500 Dictated By: Rickie Cornejo Jr, DO 08/05/23 1454 Signed By: 08/05/23 1500 Normal [facility] Lab Reportson 07-30-2023 Lab Reports [id number] D:127 Normal [facility] 07-22-2023 Screens [id number] CD:127 Normal [facility] Ambulatory Visit Summaryon 0 07-21-2023 Ambulatory Visit Summary MANUEL BALDERAS :1950 Visit Date:07/21/2023 Ambulatory Visit Instructions Your Diagnosis Kidney stones Elevated PSA BPH with urinary obstruction Family history of prostate cancer in father Tests Performed Urnls Dip Stick Auto w/o Microscopy POC 33374 XR Abdomen 1 View -- Results Pending [...] LEVY, Jude Crespo Where: [facility] Patient Educationon 07-21-20 Patient Education Nephrology Dietary [...] ? 8 oz (237 mL) of milk, teuxomu-nemvflihjrqz-oh iry milk, and calcium-fortifiedfruit juice. Calcium-fortified means [...] Spinach (cooked), rhubarb, beets, sweet potatoes, and Malagasy chard. ? Peanuts. ? Potato chips, st lucian fries, and baked potatoes with skin on. ? Nuts and nut products. ? Chocolate. ? If you regularly take a diuretic medicine, make sure to eat at least 1 or 2 servings of fruits or vegetables that are high in potassium each day. These include: ? Avocado. ? Banana. ? [place], prune, carrot, or tomato juice. ? Baked [...] fish oil, or vitamin B6. ? Take arfl-jaj-vjjxscs and prescription medicines only as told by your health care provider. These include supplements. What foods should I limit? Limit your in (more content not included)... Normal [facility] Urology Office/Clinic Noteon 07-21-2023 Urology Office/Clinic [...] With When Contact Information NINA LEVY, Jude R, URL [facility] [address], [place] [address]- Additional Instructions: 1 yr KUB Patient Education Dietary Guidelines to Help Prevent Kidney Stones IKenzie, personally scribed for Dr. Beach on 07/21/2023 [...] Cystoscopic insertio (more content not included)... Normal [facility] Comment on above: Result Comment: Elec tronically Signed By: Jude BEACH MD\.br\Date and Time Signed: 07/21/23 14:12 EDT\.br\Electronically Co-Signed By: Kenzie Fierro\.br\Date and Time Co-Signed: 07/21/23 14:08 EDT\.br\Electronically Co-Signed By: Kenzie Fierro\.br\Date and Time Co-Signed: 07/21/23 14:10 EDT RAD - MISCon 07-20-2023 RAD - MISC [id number] :127 Normal [facility] Lab Reportson 02-15-2023 Lab Reports [id number] D:127 Normal [facility] CITRATE URINE 24HRon 023 Citric Acid, U, 24hr 1042 mg/24 hr Normal 320-1240 [facility] Comment on above: Result Comment: This test was developed and its performance characteristics determined by [facility]. It has not been cleared or approved by the Food and Drug Administration. Performed By: #### C BC #### [facility] [address] [place] [address] Dr. Cleveland Snowden Citric Acid, Urine 731 mg/L Normal Undefined [facility] Comment on above: Performed By: #### C BC #### [facility] [address] [place] [address] Dr. Cleveland Snowden OXALATE 24HR URINEon 04-10-2 023 Oxalates, Urine 19 mg/L Normal Undefined [facility] Comment on above: Performed By: #### C BC #### [facility] [address] [place] [address] Dr. Cleveland Snowden Oxalates, Urine 24hr 27 mg/24 hr Normal 7-44 [facility] Comment on above: Performed By: #### C BC #### [facility] [address] [place] [address] Dr. Cleveland Snowden MAGNESIUM 24HR URINEon 02-05 Magnesium 24hr Urine 82.7 mg/24 hr Normal 12.0-293.0 T [facility] Comment on above: Performed By: #### C BC #### [facility] [address] [place] [address] Dr. Cleveland Snowden Magnesium UR 5.8 mg/dL Normal Not Estab. [facility] Comment on above: Performed By: #### C BC #### [facility] [address] [place] [address] Dr. Cleveland Snowden PHOSPHORUS 24HR URINEon Phosphorus, Urine 59.7 mg/dL Normal Not Estab. The [facility] Comment on above: Performed By: #### P T, PTT #### [facility] [address] [place] [address] Dr. Cleveland Snowden Phosphorus, Urine 24hr 851 mg/24 hr Normal 390-1425 [facility] Comment on above: Performed By: #### P T, PTT #### [facility] [address] [place] [address] Dr. Cleveland Snowden PTH INTACTon 02-05-2023 PTH, Intact 18 pg/mL Normal 15-65 [facility] Comment on above: Performed By: #### P THINT #### [facility] [address] [place] [address] Dr. Cleveland Snowden URIC ACID 24 HR URINEon Uric Acid, Urine 36.4 mg/dL Normal Not Estab. The [facility] Comment on above: Performed By: #### P T, PTT #### [facility] [address] [place] [address] Dr. Cleveland Snowden Uric Acid, Urine 24hr 518.7 mg/24 hr Normal 136.1-771.1 [facility] Comment on above: Performed By: #### P T, PTT #### [facility] [address] [place] [address] Dr. Cleveland Snowden BUNon 02-04-2023 Urea nitrogen [Mass/Vol] 22.0 mg/dL Critically high 7.0-18.0 [facility] Comment on above: Performed By: #### C BC #### [facility] [address] [place] [address] Dr. Cleveland Snowden CALCIUMon 02-04-2023 Calcium [Mass/Vol] 9.7 mg/dL Normal 8.5-10.1 [facility] Comment on above: Performed By: #### C BC #### [facility] [address] [place] [address] Dr. Cleveland Snowden CALCIUM 24 HR URINEon 2022 CALC, 24 HR UR 84.1 mg/24 hr Critically low 100.0-300.0 [facility] Comment on above: Performed By: #### C ALC24U #### [facility] [address] [place] [address] Dr. Cleveland Snowden UR CALCIUM 5.9 mg/dL Normal 5.1-21.0 [facility] Comment on above: Performed By: #### C ALC24U #### [facility] [address] [place] [address] Dr. Cleveland Snowden UR TOT VOL 1425 ml/24 HR Normal [facility] Comment on above: Performed By: #### C ALC24U #### [facility] [address] [place] [address] Dr. Cleveland Snowden Performed By: #### C REA24U, NA24U #### [facility] [address] [place] [address] Dr. Cleveland Snowden Performed By: #### P T, PTT #### [facility] [address] [place] [address] Dr. Cleveland Snowden CHLORIDEon 02-04-2023 Chloride [Moles/Vol] 107 mmol/L Normal 98-107 [facility] Comment on above: Performed By: #### C BC #### [facility] [address] [place] [address] Dr. Cleveland Snowden CO2on 02-04-2023 CO2 [Moles/Vol] 33.7 mmol/L Critically high 21.0-32.0 [facility] Comment on above: Performed By: #### A 1C #### [facility] [address] [place] [address] Dr. Cleveland Snowden CREA 24 HR URINEon 3 CREA, 24 HR UR 1115.21 mg/24 hr Normal 1,000.00- 2,[address] [facility] Comment on above: Performed By: #### P T, PTT #### [facility] [address] [place] [address] Dr. Cleveland Snowden URINE CREAT 78.26 mg/dL Normal 20.00-300.00 [facility] Comment on above: Performed By: #### P T, PTT #### [facility] [address] [place] [address] Dr. Cleveland Snowden CREATININEon 02-04-2023 Creatinine [Mass/Vol] 0.91 mg/dL Normal 0.70-1.30 [facility] Comment on above: Performed By: #### A 1C #### [facility] [address] [place] [address] Dr. Cleveland Snowden EGFR-AF HUNGARIAN >60 Normal >=60 [facility] Comment on above: Performed By: #### A 1C #### [facility] [address] [place] [address] Dr. Cleveland Snowden EGFR-NON AF HUNGARIAN >60 Normal >=60 [facility] Comment on above: Performed By: #### A 1C #### [facility] [address] [place] [address] Dr. Cleveland Snowden NAon 02-04-2023 Sodium [Moles/Vol] 144 mmol/L Normal 136-145 [facility] Comment on above: Performed By: #### C BC #### [facility] [address] [place] [address] Dr. Cleveland Snowden POTASSIUMon 02-04-2023 Potassium [Moles/Vol] 4.1 mmol/L Normal 3.5-5.1 [facility] Comment on above: Performed By: #### A 1C #### [facility] [address] [place] [address] Dr. Cleveland Snowden SODIUM 24 HR URINEon 023 NA, 24 HR UR 221 mmol/24 hr Critically high 40-220 [facility] Comment on above: Performed By: #### C REA24U, NA24U #### [facility] [address] [place] [address] Dr. Cleveland Snowden Sodium (U) [Moles/Vol] 155 mmol/L Critically high 30-90 [facility] Comment on above: Performed By: #### C REA24U, NA24U #### [facility] [address] [place] [address] Dr. Cleveland Snowden URIC ACID SERUMon 02-04-2023 Urate [Mass/Vol] 4.3 mg/dL Normal 3.5-7.2 [facility] Comment on above: Performed By: #### C BC #### [facility] [address] [place] [address] Dr. Cleveland Snowden Physician Orderon 02-02-2023 Physician Order [id number] D:127 Normal [facility] Lab Reportson 01-26-2023 Lab Reports [id number] D:127 Normal [facility] RAD - MISCon 01-26-2023 RAD - MIS [id number] D:127 Normal [facility] Operative Reporton Operative Report [id number] D:127 Normal [facility] POINT OF CARE GLUCOSEon - Glucose [Mass/Vol] 237 mg/dL Critically high 74-106 T [facility] Comment on above: Performed By: #### P T, PTT #### [facility] [address] [place] [address] Dr. Cleveland Snowden XR KUB 1 VIEWon [...] by: ISAK CORTEZ Date: 2023-01-14 08:[address] [facility] RAD - MISCon 01-11-2023 [facility] [id number] D:127 Normal [facility] CBC AUTO DIFFon 01-08-2023 BASO # 0.0 103/ul Normal 0.0-0.1 [facility] Comment on above: Performed By: #### C BC #### [facility] [address] [place] [address] Dr. Cleveland Snowden Basophils/100 WBC (Bld) 0.4 % Normal 0.2-2.0 [facility] Comment on above: Performed By: #### C BC #### [facility] [address] [place] [address] Dr. Cleveland Snowden EO # 0.2 103/ul Normal 0.0-0.7 [facility] Comment on above: Performed By: #### C BC #### [facility] [address] [place] [address] [address] Cleveland Snowden Eosinophils/100 WBC (Bld) 4.4 % Normal 0.9-7.0 [facility] Comment on above: Performed By: #### C BC #### [facility] [address] [place] [address] Dr. Cleveland Snowden Erythrocyte distribution width (RBC) [Ratio] 14.8 % Normal 11.0-15.0 [facility] Comment on above: Performed By: #### C BC #### [facility] [address] [place] [address] Dr. Cleveland Snowden Hematocrit (Bld) [Volume fraction] 35.7 % Critically low 42.0-54.0 [facility] Comment on above: Performed By: #### C BC #### [facility] [address] [place] [address] Dr. Cleveland Snowden Hemoglobin (Bld) [Mass/Vol] 12.0 g/dL Critically low 14.0-18.0 [facility] Comment on above: Performed By: #### C BC #### [facility] [address] [place] [address] Dr. Cleveland Snowden IG # 0.03 10e3/ul Normal 0.00-0.03 [facility] Comment on above: Performed By: #### C BC #### [facility] [address] [place] [address] Dr. Cleveland Snowden IG % 0.6 % Critically high 0.0-0.5 [facility] Comment on above: Performed By: #### C BC #### [facility] [address] [place] [address] Dr. Cleveland Snowden LYMPH # 0.7 103/ul Critically low 1.2-3.8 [facility] Comment on above: Performed By: #### C BC #### [facility] [address] [place] [address] Dr. Cleveland Snowden Lymphocytes/100 WBC (Bld) 14.4 % Critically low 20.5-60.0 [facility] Comment on above: Performed By: #### C BC #### [facility] [address] [place] [address] Dr. Cleveland Snowden MANUAL DIFF REQ NO Normal [facility] Comment on above: Performed By: #### C BC #### [facility] [address] [place], [place] [id number] Dr. Cleveland Snowden MCH (RBC) [Entitic mass] 31.1 pg Normal 25.9-34.0 [facility] Comment on above: Performed By: #### C BC #### [facility] [address] [place] [address] Dr. Cleveland Snowden MCHC (RBC) [Mass/Vol] 33.6 g/dL Normal 29.9-35.2 [facility] Comment on above: Performed By: #### C BC #### [facility] [address] [place] [address] Dr. Cleveland Snowden MCV (RBC) [Entitic vol] 92.5 fL Normal 80.0-94.0 [facility] Comment on above: Performed By: #### C BC #### [facility] [address] [place] [address] Dr. Cleveland Snowden MONO # 0.5 103/ul Normal 0.3-0.8 [facility] Comment on above: Performed By: #### C BC #### [facility] [address] [place] [address] Dr. Cleveland Snowden Monocytes/100 WBC (Bld) 11.0 % Normal 1.7-12.0 [facility] Comment on above: Performed By: #### C BC #### [facility] [address] [place] [address] Dr. Cleveland Snowden NEUT # 3.3 103/ul Normal 1.4-6.5 [facility] Comment on above: Performed By: #### C BC #### [facility] [address] [place] [address] Dr. Cleveland Snowden Neutrophils/100 WBC (Bld) 69.2 % Normal 43.0-75.0 [facility] Comment on above: Performed By: #### C BC #### [facility] [address] [place] [address] Dr. Cleveland Snowden Platelet mean volume (Bld) [Entitic vol] 10.0 fL Normal 9.5-13.5 [facility] Comment on above: Performed By: #### C BC #### [facility] [address] [place] [address] [address] Cleveland Snowden PLT 105 103/ul Critically low 150-450 [facility] Comment on above: Performed By: #### C BC #### [facility] [address] [place] [address] [address] Cleveland Snowden RBC 3.86 106/ul Critically low 4.70-6.10 [facility] Comment on above: Performed By: #### C BC #### [facility] [address] [place] [address] [address] Cleveland Snowden WBC 4.8 103/ul Normal 4.0-11.0 [facility] Comment on above: Performed By: #### C BC #### [facility] [address] [place] [address] Dr. Cleveland Snowden PROF CHEM 8 (BAS METB)on Anion gap [Moles/Vol] 12.7 mmol/L Normal [facility] Comment on above: Performed By: #### C BC #### [facility] [address] [place] [address] Dr. Cleveland Snowden Calcium [Mass/Vol] 9.6 mg/dL Normal 8.5-10.1 [facility] Comment on above: Performed By: #### C BC #### [facility] [address] [place] [address] Dr. Cleveland Snowden Chloride [Moles/Vol] 107 mmol/L Normal 98-107 [facility] Comment on above: Performed By: #### C BC #### [facility] [address] [place] [address] Dr. Cleveland Snowden CO2 [Moles/Vol] 29.0 mmol/L Normal 21.0-32.0 [facility] Comment on above: Performed By: #### C BC #### [facility] [address] [place] [address] Dr. Cleveland Snowden Creatinine [Mass/Vol] 0.76 mg/dL Normal 0.70-1.30 [facility] Comment on above: Performed By: #### C BC #### [facility] [address] [place], [place] [id number] Dr. Cleveland Snowden EGFR-AF HUNGARIAN >60 Normal >=60 [facility] Comment on above: Performed By: #### C BC #### [facility] [address] [place] [address] Dr. Cleveland Snowden EGFR-NON AF HUNGARIAN >60 Normal >=60 [facility] Comment on above: Performed By: #### C BC #### [facility] [address] [address] [address] Cleveland Snowden Glucose [Mass/Vol] 127 mg/dL Critically high 74-106 [facility] Comment on above: Performed By: #### C BC #### [facility] [address] [place] [address] Dr. Cleveland Snowden Potassium [Moles/Vol] 3.7 mmol/L Normal 3.5-5.1 [facility] Comment on above: Performed By: #### C BC #### [facility] [address] [place] [address] Dr. Cleveland Snowden Sodium [Moles/Vol] 145 mmol/L Normal 136-145 [facility] Comment on above: Performed By: #### C BC #### [facility] [address] [place] [address] Dr. Cleveland Snowden Urea nitrogen [Mass/Vol] 21.0 mg/dL Critically high 7.0-18.0 [facility] Comment on above: Performed By: #### C BC #### [facility] [address] [place] [address] Dr. Cleveland Snowden Urea nitrogen/Creatinine [Mass ratio] 27.6 mg/mg Normal [facility] Comment on above: Performed By: #### C BC #### [facility] [address] [place] [address] Dr. Cleveland Snowden PROTIMEon 01-08-2023 INR Coag (PPP) [Relative time] 1.04 {INR} Normal [facility] Comment on above: Performed By: #### P T, PTT #### [facility] [address] [place] [address] Dr. Cleveland Snowden INR GUIDELINES SEE BELOW Normal [facility] Comment on above: Result Comment: ASHTYN RED INR: 2.0 - 3.0 CONDITIONS NOT LISTED BELOW 2.5 - 3.5 FOR PROSTHETIC HEART VALVE REPLACEMENT 2.5 - 3.5 RECURRENT THROMBOSIS Performed By: #### P T, PTT #### [facility] [address] [address] [address] Cleveland Snowden PT Coag (PPP) [Time] 11.0 s Normal 9.0-11.6 [facility] Comment on above: Performed By: #### P T, PTT #### [facility] [address] [address] [address] Cleveland Snowden PTTon 01-08-2023 aPTT Coag (Bld) [Time] 29.6 s Normal 22.3-36.2 [facility] Comment on above: Performed By: #### P T, PTT #### [facility] [address] [address] [address] Cleveland Snowden Ambulatory Visit Summaryon 0 01-05-2023 Ambulatory Visit Summary MANUEL BALDERAS :1950 Visit Date:01/05/2023 Ambulatory Visit Instructions Your Diagnosis Renal stone Elevated PSA BPH with urinary obstruction Family history of prostate cancer Proteinuria Tests Performed Urnls Dip Stick Auto w/o Microscopy POC 29097 Your Care Team Attending Physician - NINA [...] When: Where: [facility] [address], [place] [address]- Medications What How Much When Instructions Unchanged [...] Urnls Dip Stick Auto w/o Microscopy POC 55723 (01/05/2023) Bilirubin Urine Dipstick - Negative Blood Urine Dipstick - Trace-intact Glucose Urine Dipstick - Trace 100 mg/dl Ketones Urine Dipstick - Negative Leukocytes Urine Dipstick - Negative Nitrite Urine Dipstick - Negative Protein Urine Dipstick - 3+ (300 mg/dl) Specific [place] Urine Dipstick - >=1.030 Urine Appearance Urine [...] need 10 (more content not included)... [facility] Consent for Procedure/Surger yon 01-05-2023 Consent for Procedure/Surgery [id number] D:127 [facility] Patient Educationon 01-06-20 23 Patient Education [...] Rhubarb. ? Beets. ? Potato chips and st lucian fries. ? Nuts. ? If you regularly take a diuretic medicine, make sure to eat at least 1?2 fruits or vegetables high in potassium each day. These include: ? Avocado. ? Banana. ? [place], prune, carrot, or tomato juice. ? Baked [...] Salad dr (more content not included)... Normal [facility] Screenson 01-05-2023 Screens [id number] D:127 [facility] Urology Office/Clinic Noteon 01-05-2023 Urology Office/Clinic [...] Hx of nephrostomy tube for stones at [facility] in 2013. -Will schedule Left ESWL. [...] [facility] [address], [place] [address]- Additional Instructions: schedule L ESWL, 3 mos with met w/up Patient Education Dietary Guidelines to Help Prevent Kidney Stones I, Kenzie Fierro, personally scribed for Dr. Beach on 01/05/2023 11:39:27. Electronically (more content not included)... [facility] Comment on above: Result Comment: Elec tronically Signed By: Jude BEACH MD\.br\Date and Time Signed: 01/05/23 11:41 EST\.br\Electronically Co-Signed By: Kenzie Fierro\.br\Date and Time Co-Signed: 01/05/23 11:39 EST [facility] 01-03-2023 Lab Reports [id number] CD:127 Normal [facility] XR KUB 1 VIEWon 01-01-2023 XR [...] by: TALI ISRAEL Date: 2023-01-01 16:[address] [facility] GLYCOHEMOGLOBIN A1Con 2022 ADA RECOMMENDATION SEE BELOW Normal [facility] Comment on above: Result Comment: ADA RECOMMENDED LIMIT 4.0 - 6.0 ADA THERAPEUTIC TARGET < 7.0 ACTION SUGGESTED > 7.0 Performed By: #### A 1C #### [facility] [address] [place] [address] Dr. Cleveland Snowden Glucose [Mass/Vol] 126 mg/dL Normal [facility] Comment on above: Performed By: #### A 1C #### [facility] [address] [address] [address] Cleveland Snowden HbA1c (Bld) [Mass fraction] 6.0 % Normal 4.5-6.2 [facility] Comment on above: Performed By: #### A 1C #### [facility] [address] [place] [address] Dr. Cleveland Snowden Patient Educationon 09-21-20 Patient [...] Follow these instructions at home: ? Take [id number] and prescription medicines only as told by [...] You d (more content not included)... [facility] Lab Reportson 09-14-2022 Lab Reports [id number] D:127 [facility] RAD - MISCon 09-14-2022 RAD - MISC [id number] D:127 Normal [facility] XR KUB 1 VIEWon 09-09-2022 XR [...] by: TALI ISRAEL Date: 2022-09-09 15:[address] [facility] GLYCOHEMOGLOBIN A1Con 2021 ADA RECOMMENDATION SEE BELOW Normal [facility] Comment on above: Result Comment: ADA RECOMMENDED LIMIT 4.0 - 6.0 ADA THERAPEUTIC TARGET < 7.0 ACTION SUGGESTED > 7.0 Performed By: #### A 1C #### [facility] [address] [place] [address] Dr. Cleveland Snowden Glucose [Mass/Vol] 131 mg/dL Normal [facility] Comment on above: Performed By: #### A 1C #### [facility] [address] [place] [address] Dr. Cleveland Snowden HbA1c (Bld) [Mass fraction] 6.2 % Normal 4.5-6.2 [facility] Comment on above: Performed By: #### A 1C #### [facility] [address] [place] [address] Dr. Cleveland Snowden LIPID PROFILEon 08-06-2022 CHOL-HDL RATIO NORM SEE BELOW Normal [facility] Comment on above: Result Comment: 3.3 - 4.4 LOW RISK 4.4 - 7.1 AVERAGE RISK 7.1 - 11.0 MODERATE RISK >11.0 HIGH RISK Performed By: #### A 1C #### [facility] [address] [address] [address] Cleveland Snowden Cholesterol [Mass/Vol] 108 mg/dL Normal <=200 [facility] Comment on above: Performed By: #### A 1C #### [facility] [address] [address] [address] Cleveland Snowden Cholesterol in HDL [Mass/Vol] 36 mg/dL Critically low 40-60 [facility] Comment on above: Performed By: #### A 1C #### [facility] [address] [address] [address] Cleveland Snowden Cholesterol in LDL [Mass/Vol] 45.0 mg/dL Normal [facility] Comment on above: Performed By: #### A 1C #### [facility] [address] [address] [address] Cleveland Snowden Cholesterol.total/Ch olesterol in HDL [Mass ratio] 3.0 {ratio} Normal [facility] Comment on above: Performed By: #### A 1C #### [facility] [address] [address] [address] Cleveland Snowden HDL NORMAL > or = 60 mg/dl - LO W CARDIOVASCULAR RISK <40 mg/dl - HIGH CARDIOVASCULAR RISK Normal [facility] Comment on above: Performed By: #### A 1C #### [facility] [address] [address] [address] Cleveland Snowden LDL CALC NORMAL SEE BELOW Normal [facility] Comment on above: Result Comment: <100 mg/dl OPTIMAL 100 - 129 mg/dl NEAR OR ABOVE OPTIMAL 130 - 159 mg/dl BORDERLINE HIGH 160 - 189 mg/dl HIGH >190 mg/dl VERY HIGH Performed By: #### A 1C #### [facility] [address] [address] [address] Cleveland Snowden Triglyceride [Mass/Vol] 135 mg/dL Normal <=150 [facility] Comment on above: Performed By: #### A 1C #### [facility] [address] [address] [address] Cleveland Snowden VLDL CALC 27.0 mg/dL Normal [facility] Comment on above: Performed By: #### A 1C #### [facility] [address] [address] [address] Cleveland Snowden GLYCOHEMOGLOBIN A1Con 2021 ADA RECOMMENDATION SEE BELOW Normal [facility] Comment on above: Result Comment: ADA RECOMMENDED LIMIT 4.0 - 6.0 ADA THERAPEUTIC TARGET < 7.0 ACTION SUGGESTED > 7.0 Performed By: #### A 1C #### [facility] [address] [place] [address] Dr. Cleveland Snowden Glucose [Mass/Vol] 154 mg/dL Normal [facility] Comment on above: Performed By: #### A 1C #### [facility] [address] [address] [address] Cleveland Snowden HbA1c (Bld) [Mass fraction] 7.0 % Critically high 4.5-6.2 [facility] Comment on above: Performed By: #### A 1C #### [facility] [address] [address] [address] Cleveland Snowden LIPID PROFILEon 05-05-2022 CHOL-HDL RATIO NORM SEE BELOW Normal [facility] Comment on above: Result Comment: 3.3 - 4.4 LOW RISK 4.4 - 7.1 AVERAGE RISK 7.1 - 11.0 MODERATE RISK >11.0 HIGH RISK Performed By: #### P T, PTT #### [facility] [address] [address] [address] Cleveland Snowden Cholesterol [Mass/Vol] 104 mg/dL Normal <=200 [facility] Comment on above: Performed By: #### P T, PTT #### [facility] [address] [address] [address] Cleveland Snowden Cholesterol in HDL [Mass/Vol] 24 mg/dL Critically low 40-60 [facility] Comment on above: Performed By: #### P T, PTT #### [facility] [address] [address] [address] Cleveland Snowden Cholesterol in LDL [Mass/Vol] 28.0 mg/dL Normal [facility] Comment on above: Performed By: #### P T, PTT #### [facility] [address] [address] [address] Cleveland Snowden Cholesterol.total/Ch olesterol in HDL [Mass ratio] 4.3 {ratio} Normal [facility] Comment on above: Performed By: #### P T, PTT #### [facility] [address] [address] [address] Cleveland Snowden HDL NORMAL > or = 60 mg/dl - LO W CARDIOVASCULAR RISK <40 mg/dl - HIGH CARDIOVASCULAR RISK Normal [facility] Comment on above: Performed By: #### P T, PTT #### [facility] [address] [address] [address] Cleveland Snowden LDL CALC NORMAL SEE BELOW Normal [facility] Comment on above: Result Comment: <100 mg/dl OPTIMAL 100 - 129 mg/dl NEAR OR ABOVE OPTIMAL 130 - 159 mg/dl BORDERLINE HIGH 160 - 189 mg/dl HIGH >190 mg/dl VERY HIGH Performed By: #### P T, PTT #### [facility] [address] [address] [address] Cleveland Snowden Triglyceride [Mass/Vol] 260 mg/dL Critically high <=150 [facility] Comment on above: Performed By: #### P T, PTT #### [facility] [address] [address] [address] Cleveland Snowden VLDL CALC 52.0 mg/dL Normal [facility] Comment on above: Performed By: #### P T, PTT #### [facility] [address] [place] [address] Dr. Cleveland Snowden PROF 14(COMP METB)on 022 Albumin [Mass/Vol] 3.5 g/dL Normal 3.4-5.0 [facility] Comment on above: Performed By: #### P T, PTT #### [facility] [address] [address] [address] Cleveland Snowden Albumin/Globulin [Mass ratio] 1.1 {ratio} Normal [facility] Comment on above: Performed By: #### P T, PTT #### [facility] [address] [address] [address] Cleveland Snowden ALP [Catalytic activity/Vol] 59 U/L Normal 46-116 [facility] Comment on above: Performed By: #### P T, PTT #### [facility] [address] [address] [address] Cleveland Snowden ALT [Catalytic activity/Vol] 46 U/L Normal 16-63 [facility] Comment on above: Performed By: #### P T, PTT #### [facility] [address] [address] [address] Cleveland Snowden Anion gap [Moles/Vol] 14.7 mmol/L Normal [facility] Comment on above: Performed By: #### P T, PTT #### [facility] [address] [address] [address] Cleveland Snowden AST [Catalytic activity/Vol] 46 U/L Critically high 15-37 [facility] Comment on above: Performed By: #### P T, PTT #### [facility] [address] [address] [address] Cleveland Snowden Bilirubin [Mass/Vol] 0.5 mg/dL Normal 0.2-1.0 [facility] Comment on above: Performed By: #### P T, PTT #### [facility] [address] [address] [address] Cleveland Snowden Calcium [Mass/Vol] 9.5 mg/dL Normal 8.5-10.1 [facility] Comment on above: Performed By: #### P T, PTT #### [facility] [address] [place] [address] Dr. Cleveland Snowden Chloride [Moles/Vol] 103 mmol/L Normal 98-107 [facility] Comment on above: Performed By: #### P T, PTT #### [facility] [address] [address] [address] Cleveland Snowden CO2 [Moles/Vol] 28.1 mmol/L Normal 21.0-32.0 [facility] Comment on above: Performed By: #### P T, PTT #### [facility] [address] [place] [address] Dr. Cleveland Snowden Creatinine [Mass/Vol] 0.84 mg/dL Normal 0.70-1.30 [facility] Comment on above: Performed By: #### P T, PTT #### [facility] [address] [address] [address] Cleveland Snowden EGFR-AF HUNGARIAN >60 Normal >=60 [facility] Comment on above: Performed By: #### P T, PTT #### [facility] [address] [address] [address] Cleveland Snowden EGFR-NON AF HUNGARIAN >60 Normal >=60 [facility] Comment on above: Performed By: #### P T, PTT #### [facility] [address] [address] [address] Cleveland Snowden Globulin (S) [Mass/Vol] 3.1 g/dL Normal [facility] Comment on above: Performed By: #### P T, PTT #### [facility] [address] [address] [address] Cleveland Snowden Glucose [Mass/Vol] 176 mg/dL Critically high 74-106 [facility] Comment on above: Performed By: #### P T, PTT #### [facility] [address] [place] [address] Dr. Cleveland Snowden Potassium [Moles/Vol] 3.8 mmol/L Normal 3.5-5.1 [facility] Comment on above: Performed By: #### P T, PTT #### [facility] [address] [place] [address] Dr. Cleveland Snowden Protein [Mass/Vol] 6.6 g/dL Normal 6.4-8.2 [facility] Comment on above: Performed By: #### P T, PTT #### [facility] [address] [place] [address] Dr. Cleveland Snowden Sodium [Moles/Vol] 142 mmol/L Normal 136-145 [facility] Comment on above: Performed By: #### P T, PTT #### [facility] [address] [place] [address] Dr. Cleveland Snowden Urea nitrogen [Mass/Vol] 24.0 mg/dL Critically high 7.0-18.0 [facility] Comment on above: Performed By: #### P T, PTT #### [facility] [address] [place] [address] Dr. Cleveland Snowden Urea nitrogen/Creatinine [Mass ratio] 28.6 mg/mg Normal [facility] Comment on above: Performed By: #### P T, PTT #### [facility] [address] [place] [address] Dr. Cleveland Snowden URIC ACID SERUMon 05-05-2022 Urate [Mass/Vol] 6.2 mg/dL Normal 3.5-7.2 [facility] Comment on above: Performed By: #### P T, PTT #### [facility] [address] [address] [address] Cleveland Snowden Basophils Auto (Bld) [#/Vol] on 04-03-2021 Basophils (Bld) [#/Vol] 0.0 10*3/uL 0.0-0.2 [facility] Basophils/100 WBC Auto (Bld) on 04-03-2021 Basophils/100 WBC (Bld) 0.6 % [facility] Blood hemoglobin measurement (mass/volume)on 04-03-2021 Hemoglobin (Bld) [Mass/Vol] 12.2 g/dL 13.0-17.0 [facility] Blood leukocytes automated c ount (number/volume)on 04-03-2021 WBC (Bld) [#/Vol] 4.7 10*3/uL 4.5-11.0 [facility] Creatinine and Glomerular fi ltration rate.predicted panel (S/P/Bld)on 04-03-2021 Creatinine [Mass/Vol] 0.68 mg/dL 0.64-1.27 [facility] Eosinophils Auto (Bld) [#/Vo l]on 04-03-2021 Eosinophils (Bld) [#/Vol] 0.1 10*3/uL 0.0-0.45 [facility] Eosinophils/100 WBC Auto (Bl d)on 04-03-2021 Eosinophils/100 WBC (Bld) 3.1 % [facility] Erythrocyte distribution wid th Auto (RBC) [Ratio]on 04-03-2021 Erythrocyte distribution width (RBC) [Ratio] 15.0 % 12.0-14.8 [facility] Estimated glomerular filtrat ion rate (GFR) non- Americanon 04-03-2021 GFR/1.73 sq M.predicted among non-blacks MDRD (S/P/Bld) [Vol rate/Area] > 60 mL/Min [facility] Hematocrit Auto (Bld) [Volum e fraction]on 04-03-2021 Hematocrit (Bld) [Volume fraction] 36.2 % 38.8-50.0 [facility] - Hematology and Cell countson 04-03-2021 Nucleated RBC/100 WBC (Bld) [Ratio] 0.2 % 0-0.5 [facility] Lymphocytes Auto (Bld) [#/Vo l]on 04-03-2021 Lymphocytes (Bld) [#/Vol] 0.7 10*3/uL 1.00-4.8 [facility] Lymphocytes/100 WBC Auto (Bl d)on 04-03-2021 Lymphocytes/100 WBC (Bld) 14.5 % [facility] MCH Auto (RBC) [Entitic mass ]on 04-03-2021 MCH (RBC) [Entitic mass] 31.3 pg 27.5-35.2 [facility] MCHC Auto (RBC) [Mass/Vol]on 04-03-2021 MCHC (RBC) [Mass/Vol] 33.8 g/dL 32.5-35.6 [facility] MCV Auto (RBC) [Entitic vol] on 04-03-2021 MCV (RBC) [Entitic vol] 92.6 fL 83.5-101 [facility] Monocytes Auto (Bld) [#/Vol] on 04-03-2021 Monocytes (Bld) [#/Vol] 0.5 10*3/uL 0.0-0.8 [facility] Monocytes/100 WBC Auto (Bld) on 04-03-2021 Monocytes/100 WBC (Bld) 10.7 % [facility] Neutrophils Auto (Bld) [#/Vo l]on 04-03-2021 Neutrophils (Bld) [#/Vol] 3.3 10*3/uL 1.8-7.7 [facility] Neutrophils/100 WBC Auto (Bl d)on 04-03-2021 Neutrophils/100 WBC (Bld) 71.1 % [facility] No Panel Informationon 04-03 Estimated GFR () > 60 mL/Min [facility] Comment on above: GFR estimated refere nce range: According to KDOQI guidelines, <60 ml/min/1.73m2 is sufficient to diagnose a patient with chronic kidney disease. Pharmacy Creatinine Clearance (Chem N/A [facility] Platelet mean volume Auto (B ld) [Entitic vol]on 04-03-2021 Platelet mean volume (Bld) [Entitic vol] 8.5 fL 6.6-10.1 [facility] Platelets Auto (Bld) [#/Vol] on 04-03-2021 Platelets (Bld) [#/Vol] 137 10*3/uL 150-450 [facility] RBC Auto (Bld) [#/Vol]on RBC (Bld) [#/Vol] 3.91 10*6/uL 3.90-5.60 [facility] Serum or plasma calcium edu urement (mass/volume)on 04-03-2021 Calcium [Mass/Vol] 9.8 mg/dL 8.2-10.2 [facility] Serum or plasma chloride merlyn surement (moles/volume)on 04-03-2021 Chloride [Moles/Vol] 100 mmol/L 95-114 [facility] Serum or plasma glucose edu urement (mass/volume)on 04-03-2021 Glucose [Mass/Vol] 184 mg/dL 70-100 [facility] Comment on above: ADA recommended refe rence rangeRandom Glucose Reference Range is dependent on time and content of last meal. Glucose of more than 200 mg/dL in a nonstressed, ambulatory subject supports the diagnosis of Diabetes Mellitus. Serum or plasma potassium me asurement (moles/volume)on 04-03-2021 Potassium [Moles/Vol] 3.6 mmol/L 3.5-5.1 [facility] Serum or plasma sodium measu rement (moles/volume)on 04-03-2021 Sodium [Moles/Vol] 138 mmol/L 136-146 [facility] Serum or plasma total carbon dioxide measurement (moles/volume)on 04-03-2021 CO2 [Moles/Vol] 26.3 mmol/L 22.0-30.0 [facility] Serum or plasma urea nitroge n measurement (mass/volume)on 04-03-2021 Urea nitrogen [Mass/Vol] 17 mg/dL 9-23 [facility] Basophils Auto (Bld) [#/Vol] on 02-11-2021 Basophils (Bld) [#/Vol] 0.0 10*3/uL 0.0-0.2 [facility] Basophils/100 WBC Auto (Bld) on 02-11-2021 Basophils/100 WBC (Bld) 0.6 % [facility] Blood hemoglobin measurement (mass/volume)on 02-11-2021 Hemoglobin (Bld) [Mass/Vol] 12.6 g/dL 13.0-17.0 [facility] Blood leukocytes automated c ount (number/volume)on 02-11-2021 WBC (Bld) [#/Vol] 4.4 10*3/uL 4.5-11.0 [facility] Eosinophils Auto (Bld) [#/Vo l]on 02-11-2021 Eosinophils (Bld) [#/Vol] 0.2 10*3/uL 0.0-0.45 [facility] Eosinophils/100 WBC Auto (Bl d)on 02-11-2021 Eosinophils/100 WBC (Bld) 3.8 % [facility] Erythrocyte distribution wid th Auto (RBC) [Ratio]on 02-11-2021 Erythrocyte distribution width (RBC) [Ratio] 14.9 % 12.0-14.8 [facility] Hematocrit Auto (Bld) [Volum e fraction]on 02-11-2021 Hematocrit (Bld) [Volume fraction] 36.1 % 38.8-50.0 [facility] - Hematology and Cell countson 02-11-2021 Nucleated RBC/100 WBC (Bld) [Ratio] 0.1 % 0-0.5 [facility] Lymphocytes Auto (Bld) [#/Vo l]on 02-11-2021 Lymphocytes (Bld) [#/Vol] 0.7 10*3/uL 1.00-4.8 [facility] Lymphocytes/100 WBC Auto (Bl d)on 02-11-2021 Lymphocytes/100 WBC (Bld) 15.4 % [facility] MCH Auto (RBC) [Entitic mass ]on 02-11-2021 MCH (RBC) [Entitic mass] 32.5 pg 27.5-35.2 [facility] MCHC Auto (RBC) [Mass/Vol]on 02-11-2021 MCHC (RBC) [Mass/Vol] 34.8 g/dL 32.5-35.6 [facility] MCV Auto (RBC) [Entitic vol] on 02-11-2021 MCV (RBC) [Entitic vol] 93.3 fL 83.5-101 [facility] Monocytes Auto (Bld) [#/Vol] on 02-11-2021 Monocytes (Bld) [#/Vol] 0.5 10*3/uL 0.0-0.8 [facility] Monocytes/100 WBC Auto (Bld) on 02-11-2021 Monocytes/100 WBC (Bld) 12.1 % [facility] Neutrophils Auto (Bld) [#/Vo l]on 02-11-2021 Neutrophils (Bld) [#/Vol] 3.0 10*3/uL 1.8-7.7 [facility] Neutrophils/100 WBC Auto (Bl d)on 02-11-2021 Neutrophils/100 WBC (Bld) 68.1 % [facility] Platelet mean volume Auto (B ld) [Entitic vol]on 02-11-2021 Platelet mean volume (Bld) [Entitic vol] 8.2 fL 6.6-10.1 [facility] Platelets Auto (Bld) [#/Vol] on 02-11-2021 Platelets (Bld) [#/Vol] 118 10*3/uL 150-450 [facility] RBC Auto (Bld) [#/Vol]on RBC (Bld) [#/Vol] 3.87 10*6/uL 3.90-5.60 [facility] Creatinine (Bld) [Mass/Vol]o n 01-10-2021 Creatinine [Mass/Vol] 0.7 mg/dL 0.6-1.3 [facility] Comment on above: ER/ESD physician is notified/shown all ISTAT results.Critical values may be confirmed by laboratory testing ifdeemed necessary by ER attending doctor. No Panel Informationon 01-10 POC Estimated GFR > 60 [facility] Comment on above: GFR estimated refere nce range: According to KDOQI guidelines, <60 ml/min/1.73m2 is sufficient to diagnose a patient with chronic kidney disease. POC Estimated GFR Non- Amer > 60 [facility] Vital Signs Date Time Vital Sign Value Performing Clinician Marcelino long 12-09-2023 11:01-0500 Body height 190.5 cm Preet Enrique DPM Work Phone: [facility] 12-09-2023 11:01-0500 Body mass index (BMI) [Ratio] 36.87 kg/m2 Preet Enrique DPM Work Phone: [facility] 12-09-2023 11:01-0500 Body weight 133.81 kg Preet Enrique DPM Work Phone: [facility] 07-21-2023 13:32-0400 Blood Pressure Location [facility] 07-21-2023 13:32-0400 Diastolic blood pressure 64 mm[Hg] Jude BEACH [facility] [facility] 07-21-2023 13:32-0400 Heart rate 54 /min Jude BEACH [facility] 07-21-2023 13:32-0400 Systolic blood pressure 117 mm[Hg] Jude BEACH [facility] 01-05-2023 10:47-0500 Blood Pressure Location Jude BEACH [facility] 01-05-2023 10:47-0500 Diastolic blood pressure 93 mm[Hg] Jude BEACH [facility] 01-05-2023 10:47-0500 Heart rate 58 /min Jude BEACH [facility] 01-05-2023 10:47-0500 Systolic blood pressure 152 mm[Hg] Jude BEACH [facility] Encounters Encounter Date Encounter Type Care Provider Facility Start: 07-26-2024 ambulatory Jude BEACH Facili ty:[facility] Start: 03-14-2024 End: 03-14-2024 ambulatory PREET ENRIQUE Not Available Start: 03-09-2024 End: 03-09-2024 ambulatory [facility] Start: 02-14-2024 End: 02-14-2024 ambulatory KHOA BOWLES Not Available Start: 02-03-2024 End: 02-03-2024 ambulatory KHOA BOWLES Not Available Start: 12-09-2023 End: 12-09-2023 ambulatory PREET ENRIQUE Not Available Start: 12-09-2023 End: 12-09-2023 Patient encounter procedure Preet Enrique DPM Work Phone: [facility] Comment on above: 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, not 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) (CMS/[facility]) (Primary Dx); Onychomycosis; Hallux limitus, left; Acquired keratoderma Start: 11-04-2023 End: 11-04-2023 ambulatory KHOA BOWLES Not Available Start: 08-05-2023 End: 08-05-2023 ambulatory Yaquelin Ryan Facility:[facility] Start: 08-05-2023 End: 08-05-2023 ambulatory MD Khoa Bowles Work Phone: [facility] Work Phone: Start: 08-05-2023 End: 08-05-2023 Patient encounter procedure MD Khoa Bowles Work Phone: [facility] [address] Work Phone: Start: 07-21-2023 End: 07-22-2023 ambulatory Jude BEACH Facility:[facility] Start: 07-21-2023 End: 07-21-2023 Patient encounter procedure Jude BEACH [facility] Start: 07-16-[address] HKOA BOWLES . Fac ility:[facility] Start: 05-24-2023 ambulatory Jude Gonzalezi ty:[facility] Start: 02-04-2023 End: 02-05-[address] JUDE BEACH . Facility:[facility] Start: 01-14-2023 End: 01-15-[address] JUDE BEACH . Facility:[facility] Start: 01-12-2023 Encounter for other preprocedural examination DR JUDE BEACH . [facility] Start: 01-12-2023 Encounter for preprocedural cardiovascular examination DR JUDE BEACH . [facility] Start: 01-12-2023 Encounter for preprocedural laboratory examination DR JUDE BEACH . [facility] Start: 01-08-2023 End: 01-09-[address] JUDE BEACH . Facility:[facility] Start: 01-08-2023 End: 01-09-2023 Encounter for preprocedural laboratory examination DR JUDE BEACH . Facility: Start: 01-05-2023 End: 01-06-2023 ambulatory Jude BEACH Facility:[facility] Start: 01-05-2023 End: 01-05-2023 Patient encounter procedure Jude BEACH [facility] Start: 12-31-2022 End: 01-01-[address] KHOA BOWLES . Facility:[facility] Start: 11-02-[address] KHOA BOWLES . Fac ility:[facility] Start: 09-21-2022 End: 09-22-2022 ambulatory Jude BEACH Facility:[facility] Start: 09-21-2022 End: 09-21-2022 Patient encounter procedure Jude BEACH [facility] Start: 09-09-2022 End: 09-10-[address] UJDE BEACH . Facility:[facility] Start: 08-06-2022 End: 08-07-[address] KHOA BOWLES . Facility: Start: 05-05-2022 End: 05-06-[address] KHOA BOWLES . Facility: Start: 04-03-2021 End: 04-03-2021 Patient encounter procedure Khoa Bowles Work Phone: -Pre-Surgical Testing Start: 02-11-2021 End: 02-11-2021 Patient encounter procedure Khoa Bowles Work Phone: -[facility] Start: 01-10-2021 End: 01-10-2021 Patient encounter procedure [...] By: #### P T, PTT #### [facility] [address] [place] [address] Dr. Cleveland Snowden Start: 09-09-[address] LILIANE BEACH . Comment on above: Performed By: #### P SAD #### [facility] [address] [place] [address] Dr. Cleveland Snowden Start: 01-10-2021 MRI of [...] on of ureteric calculus without disintegration [facility] Start: 10-26-2013 Cystoscopic insertio n of ureteric stent Jude BEACH Start: 07-01-2004 Cystoscopic removal of ureteric stent Jude BEACH Start: 06-24-2004 Cystoscopic extracti on of ureteric calculus without disintegration [facility] Ankle region structu re (body structure) Jude BEACH Back structure, excl uding neck (body structure) [facility] Colonoscopy [facility] History of hernia repair Elke BEACH Rotator cuff includi ng muscles and tendons (body structure) Jude BEACH Plan of Treatment Date Care Activity Detail Author Start: 06-17-2026 Screening for malign ant neoplasm of colon [facility] Start: 06-08-2024 Glaucoma screening Diabetes: R etinopathy Screening [facility] Start: 03-09-2024 End: 03-09-2024 Patient encounter procedure 03/09/2024 1:00 PM EDT Procedure Visit [facility] [address] [place] [address] Preet Enrique DPM [address] [place] [address] [facility] Start: 02-23-2024 Medicare Annual Well ness (AWV) Medicare Annual Wellness (AWV) [facility] Start: 02-03-2024 End: 02-03-2024 Patient encounter procedure 02/03/2024 11:30 AM EDT Office Visit [facility] [address] [facility] [place] [address] Khoa Bowles MD [address] [facility] [place] [address] (Fax) [facility] Start: 01-18-2024 Hemoglobin A1c measurement Diabetes: Hemoglobin A1C [facility] Start: 1950 Screening for malign ant neoplasm of colon [facility] Immunizations Immunization Date Immunization Notes Care Provider Fa cility 10-14-2023 Influenza, Seasonal, Quadrivalent, Adjuvanted Preet Enrique DPM Work Phone: [facility] 09-09-2022 SARS-CoV-2 (COVID-19 ) [id number] Jude BEACH [facility] 09-03-2022 influenza virus vacc ine, unspecified formulation Jude BEACH [facility] 09-03-2022 Influenza, High-dose Seasonal, Quadrivalent, Preservative Free Preet Enrique DPM Work Phone: [facility] 09-26-2021 SARS-CoV-2 (COVID-19 ) mRNA-1273 vaccine Jude BEACH [facility] 09-25-2021 Moderna SARS-CoV-2 Booster Vaccination Preet Enrique DPM Work Phone: [facility] 08-22-2021 influenza virus vacc ine, unspecified formulation Jude BEACH [facility] 08-22-2021 Influenza, Seasonal, Quadrivalent, Adjuvanted Preet Lue DPM Work Phone: [facility] 10-20-2021 influenza virus vacc ine, unspecified formulation Jude BEACH [facility] 01-25-2021 COVID-19 mRNA-1273 (Moderna) Khoa Bowles Work Phone: [facility] 01-25-2021 SARS-CoV-2 (COVID-19 ) Ad26 vaccine, recombinant Jude BEACH [facility] 12-28-2020 COVID-19 mRNA-1273 (Moderna) Khoa Bowles Work Phone: [facility] Comment on above: Result Comment: 2022: [id number] 08-06-2020 influenza virus vacc ine, unspecified formulation Jude BEACH [facility] 08-06-2020 Influenza, Seasonal, Quadrivalent, Adjuvanted Preet Enrique DPM Work Phone: [facility] 09-04-2019 influenza virus vacc ine, unspecified formulation Jude BEACH [facility] 09-04-2019 influenza, high dose seasonal, preservative-free Preet Enrique DPM Work Phone: [facility] 08-19-2018 influenza virus vacc ine, unspecified formulation Jude BEACH [facility] 08-19-2018 influenza, high dose seasonal, preservative-free Preet Enrique DPM Work Phone: [facility] 09-06-2017 influenza virus vacc ine, unspecified formulation Jude BEACH [facility] 09-06-2017 influenza, high dose seasonal, preservative-free Preet Enrique DPM Work Phone: [facility] 09-06-2017 pneumococcal polysaccharide vaccine, 23 valent Jude BEACH [facility] 08-18-2017 influenza virus vacc ine, unspecified formulation Jude BEACH [facility] 08-17-2016 influenza virus vacc ine, unspecified formulation Jude BEACH [facility] 08-17-2016 influenza, high dose seasonal, preservative-free Preet Enrique DPM Work Phone: [facility] 08-17-2016 pneumococcal conjuga te vaccine, 13 valent Jude BEACH [facility] 08-22-2015 zoster vaccine, live Jude BEACH [facility] 08-17-2015 influenza, seasonal, injectable, preservative free Preet Enrique DPM Work Phone: [facility] 07-27-2013 influenza virus vacc ine, unspecified formulation Jude BEACH [facility] 02-22-2012 pneumococcal polysaccharide vaccine, 23 valent Preet Lue DPM Work Phone: [facility] 07-20-2009 pneumococcal polysaccharide vaccine, 23 valent Jude BEACH [facility] Payers Date Payer Category Payer Medicare [id number] 2016 Medicare MEDICARE MEDICAR E PART B [id number] 2016-[place] [address] Medicare [id number] 2016 Private Health Insurance [employer] [id number] 2016-Present [address] [address] [place] [address] Supplement [id number] 2015 Medicare [id number] 1959 Medicare [id number] 1959 Private Health Insurance [facility] [id number] 1959 Self-pay [id number] 1950 Unknown [id number] 2.16.840.1.360108.3.579 .2.593 1950 Unknown [id number] 2.16.840.1.376638.3.579 .2.593 1950 Unknown [id number] 2.16.840.1.762806.3.579 .2.593 1950 Unknown [id number] 2.16.840.1.990983.3.579 .2.593 1950 Unknown [id number] 2.16.840.1.581643.3.579 .2.593 1950 Unknown [id number] 2.16.840.1.043651.3.579 .2.593 1950 Unknown [id number] 2.16.840.1.960226.3.579 .2.593 1950 Unknown [id number] 2.16.840.1.750665.3.579 .2.593 1950 Unknown [id number] 2.16.840.1.593035.3.579 .2.593 1950 Unknown [id number] 2.16.840.1.851810.3.579 .2.593 1950 Unknown [id number] 2.16.840.1.704998.3.579 .2.727 1950 Unknown [id number] 2.16.840.1.065478.3.579 .2.727 1950 Unknown [id number] 2.16.840.1.595894.3.579 .2.727 1950 Unknown [id number] 2.16.840.1.062939.3.579 .2.727 1950 Unknown [id number] 2.16.840.1.174846.3.579 .2.727 1950 Unknown [id number] 2.16.840.1.837399.3.579 .2.727 1950 Unknown [id number] 2.16.840.1.782556.3.579 .2.1286 1950 Unknown [id number] 2.16.840.1.478597.3.579 .2.1259 1950 Unknown [id number] 2.16.840.1.173987.3.579 .2.1259 1950 Unknown [id number] 2.16.840.1.746258.3.579 .2.1259 1950 Unknown [id number] 2.16.840.1.930050.3.579 .2.1259 1950 Unknown [id number] 2.16.840.1.631580.3.579 .2.1259 Unknown [id number] Unknown [id number] 2.16.840.1.170110.3.579 .2.531 Social History Date Type Detail Facility Start: 04-03-2021 End: 06-02-2023 Tobacco smoking status NHIS Never smoked tobacco (finding) [facility] Start: 1950 Sex Assigned At Male [facility] Tobacco smoking status Never [facility] Start: 11-04-2023 End: 12-09-2023 Sex Assigned At Male [facility] Start: 12-09-2023 Alcohol intake Lifetime non-d alexis (finding) [facility] Start: 11-04-2023 End: 12-09-2023 History of Social function [facility] Start: 04-14-2023 Alcohol Comment Caffeine intake: non e [facility] Start: 1950 Sex Assigned At Not on file [facility] Medical Equipment Procedure Code Equipment Code Equipment Origin al Text Equipment Identifier Dates Discectomy, lumbar COFLEX SIZE 10 [facility] art: 11-23-2018 Discectomy, lumbar COFLEX SIZE 14 [facility] art: 11-23-2018 Discectomy, lumbar COFLEX SIZE 14 [facility] art: 11-23-2018 Discectomy, lumbar COFLEX SIZE 10 [facility] art: 11-23-2018 1 each by In Vit ro route in the morning. Take before meals. [id number] Start: 08-02-2023 End: 07-27-2024 1 Units in the morning. Take before meals. Accucheck soft clix. [id number] Start: 11-10-2023 End: 11-04-2024 Injection subcutaneous [id number] Start: 11-11-2023 Functional Status Date Assessment Result Facility 07-21-2023 Functional Status N/A [facility] 01-05-2023 Functional Status N/A [facility] History of Present illness Narrative 12-09-2023 Preet Enrique, FAUSTINO - 12/09/2023 11:00 AM EST Note Date [...] in the morning., Disp: , Rfl: biotin 81322 MCG tablet, 1 (one) time each day [...] removal of 1 of the Coflex devices., [facility]PA[facility] Left 1999 anterior stabilization Family History Problem Relation Name [...] Mood normal. Behavior: Behavior normal. MODIFIER: Q9, 70468, 96967 Assessment/Plan Diagnoses and all orders for this visit: Type II or unspecified type diabetes mellitus with neurological manifestations, not 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) ([facility]) Onychomycosis Hallux limitus, left Acquired [...] Preet Enrique DPM documented in this encounter [facility] Discharge instructions 07-21-2023 Note Date [...] include: ?8 oz (237 mL) of milk, zkylzld-oqzgdzuipaej-uxury milk, and calcium-fortifiedfruit juice. Calcium-fortified means that [...] ?Spinach (cooked), rhubarb, beets, sweet potatoes, and Malagasy chard. ?Peanuts. ?Potato chips, st lucian fries, and baked potatoes with skin on. ?Nuts and nut products. ?Chocolate. If you regularly take a diuretic medicine, make sure to eat at least 1 or 2 servings of fruits or vegetables that are high in potassium each day. These include: ?Avocado. ?Banana. ?Radford, prune, carrot, or tomato juice. ?Baked potato. [...] magnesium, fish oil, or vitamin B6. Take cnrd-ipm-jlrmuju and prescription medicines only as told by [...] Casseroles. Pizza. Lasagna. Frozen meals. Potato chips. Guyanese fries. The items listed above may not [...] provider. Document Revised: 06/29/2022 Document Reviewed: 06/29/2022 [employer] Patient Education 2022 [employer]. Follow Up Care 05/19/2023 09:51:24 With:NINA LEVY, Jude Crespo, URL Address: [facility] [address] , [place] [address]- When: Unknown [facility] Hospital Discharge instructions 01-05-2023 Note Date & [...] include: ?Spinach. ?Rhubarb. ?Beets. ?Potato chips and st lucian fries. ?Nuts. If you regularly take a diuretic medicine, make sure to eat at least 1 2 fruits or vegetables high in potassium each day. These include: ?Avocado. ?Banana. ?Radford, prune, carrot, or tomato juice. ?Baked potato. [...] Casseroles. Pizza. Lasagna. Frozen meals. Potato chips. Guyanese fries. Summary You can reduce your risk [...] 02/12/2012 Document Revised: 02/07/2020 Document Reviewed: 09/28/2017 [employer] Patient Education 2020 [employer]. Follow Up Care 10/07/2022 10:58:19 With:NINA LEVY, Jude Crespo, URL Address: [facility] [address] , [place] [address]- When: Unknown [facility] Hospital Discharge instructions 09-21-2022 Note Date & [...] urethra. Follow these instructions at home: Take otcw-jkd-fmystch and prescription medicines only as told by [...] 10/18/2006 Document Revised: 09/12/2019 Document Reviewed: 11/22/2017 [employer] Patient Education FPSI. Follow Up Care 12/22/2021 13:03:04 With:Jude BEACH MD, URL Address: [facility] [address], [place] [address]- When: Unknown [facility] Evaluation + Plan note Note Date & Type Note Facility Evaluation + Plan note No data available for this section [facility] Evaluation + Plan note Note Date & Type Note Facility Evaluation + Plan note Future Appointments Appointment Date:07/26/2024 01:45:00 PM Scheduled Provider:Jude BEACH MD Location:[facility] Appointment Type:URO Office Visit [facility] Evaluation note Note Date & Type Note Facility Evaluation note No assessment information availa [facility] Evaluation note Note Date & Type Note Facility Evaluation note Diagnosis Type II or unspecified type diabetes mellitus with neurological manifestations, not 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) (CMS/HCC)- Primary Type II or unspecified type diabetes mellitus with neurological manifestations, not stated as uncontrolled Onychomycosis Dermatophytosis of nail Hallux limitus, left Acquired keratoderma documented in this encounter [facility] Progress note Note Date & Type Note Facility Progress note No data available for this section [facility] Chief Complaint and Reason for Visit Chief Complaint M43.16 Pre-Surgical Testing Stenosis Chief Complaint m54.10 m48.061 m51.3 6 m46.96 Family History No Family History Records Found Relationship Condition Age at Onset Recorded Date/T alyx father Hodgkin lymphoma Unknown Hypertension Unknown Malignant neoplasm of prostate Unknown Not Specified Hepatic cirrhosis Unknown Type 2 diabetes mellitus Unknown Advance Directives No Advanced Directives Records Found Advance Directive Response Recorded Date/ Time Advance [...] Khoa Bowles MD Primary Care Provider Active EDWIN ConstantinoC Attending Provider Active Unit Aide Relationship Specialty Start Date End Date Khoa Bowles MD [address] [place] [address] PCP - General Family Medicine 04/08/23 Jude Beach MD [address] [place] [address] Referring Physician Urology 12/09/23 Preet Enrique DPM [address] [place] [address] Referring Physician Podiatry 12/09/23 (unrecognized sect ion and content) No Status Records FoundNo Status Records FoundNo Status Records FoundNo Status Records FoundNo Status Records Found INFORMATION SOURCE (unrecogn ized section and content) DATE CREATED AUTHOR 02/14/2023 [facility] DATE CREATED AUTHOR AUTHOR'S ORGANIZ ATION 08/06/2023 [facility] DATE CREATED AUTHOR AUTHOR'S ORGANIZ ATION 02/29/2024 [facility] DATE CREATED AUTHOR AUTHOR'S ORGANIZ ATION 03/11/2024 [facility] DATE CREATED AUTHOR AUTHOR'S ORGANIZ ATION 03/16/2024 [facility] Reason for Visit (unrecogniz ed section and content) Reason Comments Nail care Manuel Balderas is a 73 y.o. male. Established pt presents today for diabetic nail care. PCP: Dr. Bowles LV 11/04/2023, A1C: 7.6 (07/27/23),BS: 168 SS: 12). [...] BE BASED ON THE PRIMARY CLINICAL RECORDS. [employer] provides no warranty or guarantee of the accuracy or completeness of information in this document.
== END 2024-03-20 12:57 | disposition home or self-care (01) ==
LOC: VC 12:56
PROVIDERS: PCP Family Medicine; Visit Provider Student in an Organized Health Care Education/Training Program
DX: I83.813 Varicose veins of bilateral lower extremities with pain (principal); M79.3 Panniculitis, unspecified
CPT/HCPCS: 93970

== ENCOUNTER 2024-04-27 12:07 | Outpatient (OUT) | payer MEDICARE, SELFPAY ==
[2024-04-27 13:01] LABS: Basophils Percent Auto 0.5 % (0.2-2.0); Eosinophils Absolute Auto 0.2 10^3/uL (0.0-0.7); Eosinophils Percent Auto 3.1 % (0.9-7.0); Hematocrit 35.8 % (42.0-54.0); Hemoglobin 11.5 g/dL (14.0-18.0); Immature Granulocytes Abs Auto 0.02 10^3/uL (0.00-0.03); Immature Granulocytes Pct Auto 0.3 % (0.0-0.5); Lymphocytes Absolute Auto 0.8 10^3/uL (1.2-3.8); Lymphocytes Percent Auto 12.1 % (20.5-60.0); Mean Corpuscular HGB Conc 32.1 g/dL (29.9-35.2); Mean Corpuscular Hemoglobin 31.3 pg (25.9-34.0); Mean Corpuscular Volume 97.5 fL (80.0-94.0); Mean Platelet Volume 10.8 fL (9.5-13.5); Monocytes Absolute Auto 0.6 10^3/uL (0.3-0.8); Neutrophils Absolute Auto 4.6 10^3/uL (1.4-6.5); Platelet Count 130 10^3/uL (150-450); Red Blood Count 3.67 10^6/uL (4.70-6.10); Red Cell Distribution Width 14.8 % (11.0-15.0); White Blood Count 6.2 10^3/uL (4.0-11.0)
[2024-04-27 13:23] LABS: Estimated Average Glucose 143 mg/dL; Glycohemoglobin A1C 6.6 % (4.5-6.2)
== END 2024-04-27 12:08 | disposition home or self-care (01) ==
LOC: LAB 12:09
PROVIDERS: PCP Family Medicine; Visit Provider Family Medicine
DX: D50.8 Other iron deficiency anemias (principal); D69.6 Thrombocytopenia, unspecified; E11.65 Type 2 diabetes mellitus with hyperglycemia
CPT/HCPCS: 36415; 83036; 85025

== ENCOUNTER 2024-04-28 12:24 | Outpatient (OUT) | payer MEDICARE, SELFPAY ==
--- OUTSIDE RECORDS SUMMARY | 2024-04-28 12:37 | XMS_ITS | CCD ---
Author Organization [facility] Care Team Providers Care 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 Name Role Phone Khoa Bowles Primary Care Provider Leopoldo Frye Attending Provider Elder Qiu Attending Provider [phone] KHOA BOWLES Primary Care Physician [phone] KHOA BOWLES Primary Care Physician Unavail able BEACH ., DR WALLACE Consulting Unavailable HEMEYER ., DR QUINTEROS Primary Care Unavailable BEACH ., DR WALLACE Attending Unavailable BEACH ., DR WALLACE Admitting Unavailable BEACH ., DR WALLACE Consulting Unavailable HEMEYER ., DR QUINTEROS Primary Care Unavailable BEACH ., DR WALLACE Attending Unavailable BEACH ., DR WALLACE Admitting Unavailable TORRESELINA TILLMAN Consulting Unavailable BEACH ., DR WALLACE Consulting Unavailable HEMEYER ., DR QUINTEROS Primary Care Unavailable BEACH ., DR WALLACE Attending Unavailable BEACH ., DR WALLACE Admitting Unavailable DANA, ISAK Consulting Unavailable RAHEL, LISA Consulting Unavailable BHUPINDER, SWATI Consulting Unavailable HEMEYER ., DR QUINTEROS Primary [...] Unavailable BEACH ., DR WALLACE Admitting Unavailable DALLAS, DR TALI Jeffries Consulting Unavailable BEACH ., DR WALLACE Consulting Unavailable HEMEYER ., DR QUINTEROS Primary Care Unavailable BEACH ., DR WALLACE Attending Unavailable BEACH ., DR WALLACE Admitting Unavailable MD Khoa Bowles Primary Care Provider MARIZOL Hampton Attending Provider NINA, Jude R Attending Unavailable BEACH, Jude R Attending Unavailable BEACH, Jude R Attending Unavailable BEACH, Jude R Attending Unavailable BEACH, Jude R Attending Unavailable BEACH, Jude R Attending Unavailable Jelena LEVY, Khoa Yanes Primary Care Provider Jude Beach MD Unavailable Preet Enrique DPM Unavailable [phone] Olive Hampton Attending Unavailable Olive Hampton Admitting Unavailable Hemeyer, Khoa Yanes Primary Care Unavailable HEMEYER, EDDEVEN J Attending Unavailable PREET ENRIQUE Attending Unavailable HEMEYER, KHOA Yanes Attending Unavailable HEMEYER, KHOA Yanes Attending Unavailable PREET ENRIQUE Attending Unavailable HEMEYER, KHOA Yanes Attending Unavailable OLIVE HAMPTON Attending Unavailable KATHERINE BHAGAT Attending Unavailable HEMEYER, EDWARD J Referring Unavailable HEMEYER, EDWARD J Primary Care Unavailable KATHERINE BHAGAT F Attending Unavailable HEMEYER, EDWARD J Referring Unavailable HEMEYER, EDWARD Joaquín Primary Care Unavailable HEMEYER, EDWARD J Referring Unavailable HEMEYER, EDWARD J Primary Care Unavailable Allergies Allergy Classification Reported Allergen(s) Allergy Type Date of Onset Reaction(s) Facility Opioid Agonists (1 source) Meperidine Drug Allergy 1 [facility] (4 sources) Meperidine / Promethazine; Translations: [meperidine-prome thazine] Drug Allergy Unknown (qualifier value) [facility] (6 sources) Meperidine; Translations: [meperidine] Drug Allergy 4 Tremor (finding) [facility] (2 sources) Meperidine Drug Allergy 3 [facility] (2 sources) pioglitazone Drug Allergy 3 [facility] (1 source) Doxycycline; Translations: [doxycycline] Drug Allergy [facility] (1 source) Meperidine Drug Allergy 2 [facility] (1 source) pioglitazone Drug Allergy 3 Swelling [facility] (1 source) Meperidine Drug Allergy 1 [facility] Repository Medications Current Medications Medication Drug Class(es) [...] Daily, # 90 tab(s), Refills(s) 3, Pharmacy: [facility]/pharmacy #[id number], 185, cm, 12/22/21 12:11:00 EST, Height/Length Dosing, 136.7, kg, 12/22/21 12:11:00 EST, Weight Dosing Start Date: 12/30/22 Status: Ordered Start: 11-09-2018 take 1 tablet by noemi th once daily allopurinol 300 mg Tab 300 mg = 1 tab(s), Oral, Daily, # 90 tab(s), Refills(s) 3, Pharmacy: [facility]/pharmacy #[id number], 185, cm, 09/15/21 11:40:00 EST, [...] oral capsule (3 sources) Start: 11-09-2018 take 76206 ug by mouth twice daily Biotin Active 26534 MCG PO Twice daily November 09, 2018 3:30pm biotin 37090 MCG tablet 1 (one) time each day [...] day(s), # 90 tab(s), Refills(s) 0, Pharmacy: [facility]/pharmacy #[id number], 185, cm, 12/22/21 12:11:00 EST, [...] BID, # 180 tab(s), Refills(s) 11, Pharmacy: [facility]/pharmacy #[id number], 185, cm, 12/22/21 12:11:00 EST, Height/Length Dosing, 136.7, kg, 12/22/21 12:11:00 EST, Weight Dosing Start Date: 11/08/22 Status: Ordered Start: 11-05-2021 End: 10-31-2022 take 3 tablets by mouth twice daily sodium bicarbonate 650 mg Tab 1,950 mg = 3 tab(s), Oral, BID, X 90 day(s), # 540 tab(s), Refills(s) 3, Pharmacy: [facility]/pharmacy #[id number], 185, cm, 09/15/21 11:40:00 EST, [...] Daily, # 90 cap(s), Refills(s) 3, [id number], cm, 12/22/21 12:11:00 EST, Height/Length Dosing, 136.7, kg, 12/22/21 12:11:00 EST, Weight Dosing Start Date: 12/30/22 Status: Ordered Start: 11-09-2018 take 1 capsule by mo uth once daily tamsulosin 0.4 mg Cap 0.4 mg = 1 cap(s), Oral, Daily, # 90 cap(s), Refills(s) 3, [id number], cm, 12/22/21 12:11:00 EST, Height/Length Dosing, 136.7, kg, 12/22/21 12:11:00 EST, Weight Dosing Start Date: 12/22/21 Status: Ordered take 1 capsule by [facility] every twenty-four hours in the evening Flomax [...] unguium] 12-09-2023 Episodic Other aftercare (1 source) 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; Translations: [PLUCK TRIMMER CURRNT USE ANTICOAGULANTS] Onset: 3 Episodic Other aftercare (1 source) jail (current) use of oral hypoglycemic drugs; Translations: [ALF USE ORAL HYPOGLYCEMIC DX] Onset: 3 Episodic Other aftercare (1 source) 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; Translations: [OTH ALF CURRENT DRUG THERAPY] Onset: 3 Episodic Other [...] HX MALIG NEOPLASM PROSTATE] Onset: 3 Episodic Residual codes; unclassified (1 source) Pain, unspecified; Translations: [Pain, unspecified] Onset: 4 Episodic Residual codes; unclassified (1 source) Edema Onset: 4 Episodic Retinal detachments; defects; vascular occlusion; and retinopathy (2 sources) Bilateral age-related nonexudative macular degeneration; Translations: [Nonexudative age-related macular degeneration, bilateral, stage unspecified] Onset: 6 04-12-2023 Chronic Spondylosis; intervertebral disc disorders; other back problems (2 sources) Spondylosis; Translations: [Other spondylosis with radiculopathy, thoracolumbar region] Onset: 0 04-12-2023 Chronic Unclassified (1 source) Hospital Follow-up Onset: 4 Varicose veins of lower extremity (1 source) Varicose veins of bilateral lower extremities with pain; Translations: [Varicose veins of bilateral lower extremities with pain] Onset: 4 Episodic Past or Other Problems Problem Classification Problem [...] aftercare (1 source) Polypharmacy ; Translations: [Other [place] [facility] (current) drug therapy] Onset: 08-05-2021 07-28-2023 Episodic [...] mri xrayon 08-05 XR pre/post mri xray [facility] [address] [place] [id number] MRI Report Signed with Bill Patient: Manuel Balderas MR#: [id number] : 1950 Acct:[id number] Age/Sex: 73 / M ADM Date: 08/05/23 Loc: [facility] Room: Type: [facility] CLI Attending Dr: Olive Hampton PA-C Copies to: Olive Hampton PA-C Ordering Provider: Olive Hampton PA-C Date of Service: 08/05/23 MR/MR lumbar spine wo con: M54.10 ([id number]) XR/XR pre/post mri xray: LUMBAR MRI ADDENDUM 1 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 Impression dictated by: Rickie Cornejo Jr., D.O.09/21/2023 12:23 PM Dictation Location: [facility]-15 Addendum Dictated By: Rickie Cornejo Jr, DO [...] MRI. Impression dictated by: Rickie Cornejo Jr., D.O.08/05/2023 3:00 PM Dictation Location: [facility]15 Transcribed By: [facility] 08/05/23 1500 Dictated By: Rickie Cornejo Jr DO 08/05/23 1454 Signed By: 08/05/23 1500 Normal [facility] Lab Reportson 07-30-2023 Lab Reports [id number] D:127 Normal [facility] Screenson 07-22-2023 Screens [id number] CD:127 Normal [facility] Ambulatory Visit Summaryon 0 07-21-2023 Ambulatory Visit Summary MANUEL BALDERAS :1950 Visit Date:07/21/2023 Ambulatory Visit Instructions Your Diagnosis Kidney stones Elevated PSA BPH with urinary obstruction Family history of prostate cancer in father Tests Performed Urnls Dip Stick Auto w/o Microscopy POC 85245 XR Abdomen 1 View -- Results Pending [...] LEVY, Jude Crespo Where: [facility] Patient Educationon 07-21-20 Patient Education Nephrology Dietary [...] ? 8 oz (237 mL) of milk, ezecjut-ldqpjwjnprdu-qi iry milk, and calcium-fortifiedfruit juice. Calcium-fortified means [...] Spinach (cooked), rhubarb, beets, sweet potatoes, and Cymraes chard. ? Peanuts. ? Potato chips, scottish fries, and baked potatoes with skin on. ? Nuts and nut products. ? Chocolate. ? If you regularly take a diuretic medicine, make sure to eat at least 1 or 2 servings of fruits or vegetables that are high in potassium each day. These include: ? Avocado. ? Banana. ? Terra Bella, prune, carrot, or tomato juice. ? Baked [...] fish oil, or vitamin B6. ? Take nzuu-yoi-abyaztu and prescription medicines only as told by your health care provider. These include supplements. What foods should I limit? Limit your in (more content not included)... Normal [facility] Urology Office/Clinic Noteon 07-21-2023 Urology Office/Clinic Note [...] Jude Crespo, URL [facility] [address], [place] [address]- Additional Instructions: 1 yr KUB Patient Education [...] Cystoscopic insertio (more content not included)... Normal [facility] Comment on above: Result Comment: Elec tronically Signed By: Jude BEACH MD\.br\Date and Time Signed: 07/21/23 14:12 EDT\.br\Electronically Co-Signed By: Kenzie Fierro P\.br\Date and Time Co-Signed: 07/21/23 14:08 EDT\.br\Electronically Co-Signed By: Kenzie Fierro P\.br\Date and Time Co-Signed: 07/21/23 14:10 EDT RAD - MISCon 07-20-2023 RAD - MISC [id number] :127 Normal [facility] Lab Reportson 02-15-2023 Lab Reports [id number] D:127 Normal [facility] CITRATE URINE 24HRon 023 Citric Acid, U, 24hr 1042 mg/24 hr Normal 320-1240 [facility] Comment on above: Result Comment: This test was developed and its performance characteristics determined by [facility]. It has not been cleared or approved by the Food and Drug Administration. Performed By: #### C BC #### [facility] [address] [address] [address] Cleveland Snowden Citric Acid, Urine 731 mg/L Normal Undefined [facility] Comment on above: Performed By: #### C BC #### [facility] [address] [address] [address] Cleveland Snowden OXALATE 24HR URINEon 023 Oxalates, Urine 19 mg/L Normal Undefined [facility] Comment on above: Performed By: #### C BC #### [facility] [address] [place] [address] Dr. Cleveland Snowden Oxalates, Urine 24hr 27 mg/24 hr Normal 7-44 [facility] Comment on above: Performed By: #### C BC #### [facility] [address] [address] [address] Cleveland Snowden MAGNESIUM 24HR URINEon 02-05 Magnesium 24hr Urine 82.7 mg/24 hr Normal 12.0-293.0 [facility] Comment on above: Performed By: #### C BC #### [facility] [address] [address] [address] Cleveland Sonwden Magnesium UR 5.8 mg/dL Normal Not Estab. [facility] Comment on above: Performed By: #### C BC #### [facility] [address] [address] [address] Cleveland Snowden PHOSPHORUS 24HR URINEon Phosphorus, Urine 59.7 mg/dL Normal Not Estab. [facility] Comment on above: Performed By: #### P T, PTT #### [facility] [address] [address] [address] Cleveland Snowden Phosphorus, Urine 24hr 851 mg/24 hr Normal 390-1425 [facility] Comment on above: Performed By: #### P T, PTT #### [facility] [address] [place] [address] Dr. Cleveland Snowden PTH INTACTon 02-05-2023 PTH, Intact 18 pg/mL Normal 15-65 [facility] Comment on above: Performed By: #### P THINT #### [facility] [address] [place] [address] Dr. Cleveland Snowden URIC ACID 24 HR URINEon Uric Acid, Urine 36.4 mg/dL Normal Not Estab. [facility] Comment on above: Performed By: #### P T, PTT #### [facility] [address] [place] [address] Dr. Cleveland Snowden Uric Acid, Urine 24hr 518.7 mg/24 hr Normal 136.1-771.1 [facility] Comment on above: Performed By: #### P T, PTT #### [facility] [address] [place] [address] Dr. Cleveland Snowden BUNon 02-04-2023 Urea nitrogen [Mass/Vol] 22.0 mg/dL Critically high 7.0-18.0 [facility] Comment on above: Performed By: #### C BC #### [facility] [address] [place] [address] Dr. Cleveland Snowden CALCIUMon 02-04-2023 Calcium [Mass/Vol] 9.7 mg/dL Normal 8.5-10.1 [facility] Comment on above: Performed By: #### C BC #### [facility] [address] [place] [address] Dr. Cleveland Snowden CALCIUM 24 HR URINEon 2022 CALC, 24 HR UR 84.1 mg/24 hr Critically low 100.0-300.0 [facility] Comment on above: Performed By: #### C ALC24U #### [facility] [address] [place] [address] Dr. Cleveland Snowden UR CALCIUM 5.9 mg/dL Normal 5.1-21.0 [facility] Comment on above: Performed By: #### C ALC24U #### [facility] [address] [place] [address] Dr. Cleveland Snowden UR TOT VOL 1425 ml/[address] [facility] Comment on above: Performed By: #### C ALC24U #### [facility] [address] [place] [address] Dr. Cleveland Snowden Performed By: #### C REA24U, NA24U #### [facility] [address] [place] [address] Dr. Cleveland Snowden Performed By: #### P T, PTT #### [facility] [address] [place] [address] Dr. Cleveland Snowden CHLORIDEon 02-04-2023 Chloride [Moles/Vol] 107 mmol/L Normal 98-107 [facility] Comment on above: Performed By: #### C BC #### [facility] [address] [place] [address] Dr. Cleveland Snowden CO2on 02-04-2023 CO2 [Moles/Vol] 33.7 mmol/L Critically high 21.0-32.0 [facility] Comment on above: Performed By: #### A 1C #### [facility] [address] [place] [address] Dr. Cleveland Snowden CREA 24 HR URINEon 3 CREA, 24 HR UR 1115.21 mg/24 hr Normal 1,000.00- 2,00 0.00 [facility] Comment on above: Performed By: #### P T, PTT #### [facility] [address] [place] [address] Dr. Cleveland Snowden URINE CREAT 78.26 mg/dL Normal 20.00-300.00 [facility] Comment on above: Performed By: #### P T, PTT #### [facility] [address] [place] [address] Dr. Cleveland Snowden CREATININEon 02-04-2023 Creatinine [Mass/Vol] 0.91 mg/dL Normal 0.70-1.30 [facility] Comment on above: Performed By: #### A 1C #### [facility] [address] [place] [address] Dr. Cleveland Snowden EGFR-AF HONDURAN >60 Normal >=60 [facility] Comment on above: Performed By: #### A 1C #### [facility] [address] [place] [address] Dr. Cleveland Snowden EGFR-NON AF HONDURAN >60 Normal >=60 [facility] Comment on above: Performed By: #### A 1C #### [facility] [address] [place] [address] Dr. Cleveland Snowden NAon 02-04-2023 Sodium [Moles/Vol] 144 mmol/L Normal 136-145 [facility] Comment on above: Performed By: #### C BC #### [facility] [address] [place] [address] Dr. Cleveland Snowden POTASSIUMon 02-04-2023 Potassium [Moles/Vol] 4.1 mmol/L Normal 3.5-5.1 [facility] Comment on above: Performed By: #### A 1C #### [facility] [address] [place] [address] Dr. Cleveland Snowden SODIUM 24 HR URINEon 023 NA, 24 HR UR 221 mmol/24 hr Critically high 40-220 [facility] Comment on above: Performed By: #### C REA24U, NA24U #### [facility] [address] [place] [address] Dr. Cleveland Snowden Sodium (U) [Moles/Vol] 155 mmol/L Critically high 30-90 [facility] Comment on above: Performed By: #### C REA24U, NA24U #### [facility] [address] [place] [address] Dr. Cleveland Snowden URIC ACID SERUMon 02-04-2023 Urate [Mass/Vol] 4.3 mg/dL Normal 3.5-7.2 [facility] Comment on above: Performed By: #### C BC #### [facility] [address] [place] [address] Dr. Cleveland Snowden Physician Orderon 02-02-2023 Physician Order [id number] D:127 Normal [facility] Lab Reportson 01-26-2023 Lab Reports [id number] D:127 Normal [facility] RAD - MISCon 01-26-2023 RAD - MIS [id number] D:127 Normal [facility] Operative Reporton Operative Report [id number] D:127 Normal [facility] POINT OF CARE GLUCOSEon 12-30 Glucose [Mass/Vol] 237 mg/dL Critically high 74-106 [facility] Comment on above: Performed By: #### P T, PTT #### [facility] [address] [address] [address] Cleveland Snowden XR KUB 1 VIEWon [...] by: ISAK CORTEZ Date: 2023-01-14 08:37 Normal [facility] RAD - MISCon 01-11-2023 [facility] [id number] D:127 Normal [facility] CBC AUTO DIFFon 01-08-2023 BASO # 0.0 103/ul Normal 0.0-0.1 [facility] Comment on above: Performed By: #### C BC #### [facility] [address] [address] [address] Cleveland Snowden Basophils/100 WBC (Bld) 0.4 % Normal 0.2-2.0 [facility] Comment on above: Performed By: #### C BC #### [facility] [address] [place] [address] Dr. Cleveland Snowden EO # 0.2 103/ul Normal 0.0-0.7 [facility] Comment on above: Performed By: #### C BC #### [facility] [address] [place] [address] Dr. Cleveland Snowden Eosinophils/100 WBC (Bld) 4.4 % Normal 0.9-7.0 [facility] Comment on above: Performed By: #### C BC #### [facility] [address] [place] [address] Dr. Cleveland Snowden Erythrocyte distribution width (RBC) [Ratio] 14.8 % Normal 11.0-15.0 [facility] Comment on above: Performed By: #### C BC #### [facility] [address] [place] [address] Dr. Cleveland Snowden Hematocrit (Bld) [Volume fraction] 35.7 % Critically low 42.0-54.0 [facility] Comment on above: Performed By: #### C BC #### [facility] [address] [place] [address] Dr. Cleveland Snowden Hemoglobin (Bld) [Mass/Vol] 12.0 g/dL Critically low 14.0-18.0 [facility] Comment on above: Performed By: #### C BC #### [facility] [address] [place] [address] Dr. Cleveland Snowden IG # 0.03 10e3/ul Normal 0.00-0.03 [facility] Comment on above: Performed By: #### C BC #### [facility] [address] [place] [address] Dr. Cleveland Snowden IG % 0.6 % Critically high 0.0-0.5 [facility] Comment on above: Performed By: #### C BC #### [facility] [address] [place] [address] Dr. Cleveland Snowden LYMPH # 0.7 103/ul Critically low 1.2-3.8 [facility] Comment on above: Performed By: #### C BC #### [facility] [address] [place] [address] Dr. Cleveland Snowden Lymphocytes/100 WBC (Bld) 14.4 % Critically low 20.5-60.0 [facility] Comment on above: Performed By: #### C BC #### [facility] [address] [place] [address] Dr. Cleveland Snowden MANUAL DIFF REQ NO Normal [facility] Comment on above: Performed By: #### C BC #### [facility] [address] [place] [address] Dr. Cleveland Snowden MCH (RBC) [Entitic mass] 31.1 pg Normal 25.9-34.0 [facility] Comment on above: Performed By: #### C BC #### [facility] [address] [place] [address] Dr. Cleveland Snowden MCHC (RBC) [Mass/Vol] 33.6 g/dL Normal 29.9-35.2 [facility] Comment on above: Performed By: #### C BC #### [facility] [address] [place] [address] Dr. Cleveland Snowden MCV (RBC) [Entitic vol] 92.5 fL Normal 80.0-94.0 [facility] Comment on above: Performed By: #### C BC #### [facility] [address] [place] [address] Dr. Cleveland Snowden MONO # 0.5 103/ul Normal 0.3-0.8 [facility] Comment on above: Performed By: #### C BC #### [facility] [address] [place] [address] Dr. Cleveland Snowden Monocytes/100 WBC (Bld) 11.0 % Normal 1.7-12.0 [facility] Comment on above: Performed By: #### C BC #### [facility] [address] [place] [address] Dr. Cleveland Snowden NEUT # 3.3 103/ul Normal 1.4-6.5 [facility] Comment on above: Performed By: #### C BC #### [facility] [address] [address] [address] Cleveland Snowden Neutrophils/100 WBC (Bld) 69.2 % Normal 43.0-75.0 [facility] Comment on above: Performed By: #### C BC #### [facility] [address] [address] [address] Cleveland Snowden Platelet mean volume (Bld) [Entitic vol] 10.0 fL Normal 9.5-13.5 [facility] Comment on above: Performed By: #### C BC #### [facility] [address] [address] [address] Cleveland Snowden PLT 105 103/ul Critically low 150-450 [facility] Comment on above: Performed By: #### C BC #### [facility] [address] [address] [address] Cleveland Snowden RBC 3.86 106/ul Critically low 4.70-6.10 [facility] Comment on above: Performed By: #### C BC #### [facility] [address] [address] [address] Cleveland Snowden WBC 4.8 103/ul Normal 4.0-11.0 [facility] Comment on above: Performed By: #### C BC #### [facility] [address] [address] [address] Cleveland Snowden PROF CHEM 8 (BAS METB)on Anion gap [Moles/Vol] 12.7 mmol/L Normal [facility] Comment on above: Performed By: #### C BC #### [facility] [address] [address] [address] Cleveland Snowden Calcium [Mass/Vol] 9.6 mg/dL Normal 8.5-10.1 [facility] Comment on above: Performed By: #### C BC #### [facility] [address] [address] [address] Cleveland Snowden Chloride [Moles/Vol] 107 mmol/L Normal 98-107 [facility] Comment on above: Performed By: #### C BC #### [facility] [address] [address] [address] Cleveland Snowden CO2 [Moles/Vol] 29.0 mmol/L Normal 21.0-32.0 [facility] Comment on above: Performed By: #### C BC #### [facility] [address] [address] [address] Cleveland Snowden Creatinine [Mass/Vol] 0.76 mg/dL Normal 0.70-1.30 [facility] Comment on above: Performed By: #### C BC #### [facility] [address] [address] [address] Cleveland Snowden EGFR-AF HONDURAN >60 Normal >=60 [facility] Comment on above: Performed By: #### C BC #### [facility] [address] [address] [address] Cleveland Snowden EGFR-NON AF HONDURAN >60 Normal >=60 [facility] Comment on above: Performed By: #### C BC #### [facility] [address] [address] [address] Cleveland Snowden Glucose [Mass/Vol] 127 mg/dL Critically high 74-106 [facility] Comment on above: Performed By: #### C BC #### [facility] [address] [address] [address] Cleveland Snowden Potassium [Moles/Vol] 3.7 mmol/L Normal 3.5-5.1 [facility] Comment on above: Performed By: #### C BC #### [facility] [address] [address] [address] Cleveland Snowden Sodium [Moles/Vol] 145 mmol/L Normal 136-145 [facility] Comment on above: Performed By: #### C BC #### [facility] [address] [place] [address] Dr[address] Cleveland Snowden Urea nitrogen [Mass/Vol] 21.0 mg/dL Critically high 7.0-18.0 [facility] Comment on above: Performed By: #### C BC #### [facility] [address] [place] [address] Dr. Cleveland Snowden Urea nitrogen/Creatinine [Mass ratio] 27.6 mg/mg Normal [facility] Comment on above: Performed By: #### C BC #### [facility] [address] [place] [address] Dr. Cleveland Snowden PROTIMEon 01-08-2023 INR Coag (PPP) [Relative time] 1.04 {INR} Normal [facility] Comment on above: Performed By: #### P T, PTT #### [facility] [address] [place] [address] Dr. Cleveland Snowden INR GUIDELINES SEE BELOW Normal [facility] Comment on above: Result Comment: ASHTYN RED INR: 2.0 - 3.0 CONDITIONS NOT LISTED BELOW 2.5 - 3.5 FOR PROSTHETIC HEART VALVE REPLACEMENT 2.5 - 3.5 RECURRENT THROMBOSIS Performed By: #### P T, PTT #### [facility] [address] [place] [address] Dr. Cleveland Snowden PT Coag (PPP) [Time] 11.0 s Normal 9.0-11.6 [facility] Comment on above: Performed By: #### P T, PTT #### [facility] [address] [place] [address] Dr. Cleveland Snowden PTTon 01-08-2023 aPTT Coag (Bld) [Time] 29.6 s Normal 22.3-36.2 [facility] Comment on above: Performed By: #### P T, PTT #### [facility] [address] [place] [address] Dr. Cleveland Snowden Ambulatory Visit Summaryon 0 01-05-2023 Ambulatory Visit Summary MANUEL BALDERAS :1950 Visit Date:01/05/2023 Ambulatory Visit Instructions Your Diagnosis Renal stone Elevated PSA BPH with urinary obstruction Family history of prostate cancer Proteinuria Tests Performed Urnls Dip Stick Auto w/o Microscopy POC 28103 Your Care Team Attending Physician - NINA [...] Sims When: Where: [facility] [address] , [place] [address]- Medications What How Much When Instructions Unchanged [...] Urnls Dip Stick Auto w/o Microscopy POC 76684 (01/05/2023) Bilirubin Urine Dipstick - Negative Blood Urine Dipstick - Trace-intact Glucose Urine Dipstick - Trace 100 mg/dl Ketones Urine Dipstick - Negative Leukocytes Urine Dipstick - Negative Nitrite Urine Dipstick - Negative Protein Urine Dipstick - 3+ (300 mg/dl) Specific Butler Urine Dipstick - >=1.030 Urine Appearance Urine [...] need 10 (more content not included)... Normal [facility] Consent for Procedure/Surger yon 01-05-2023 Consent for Procedure/Surgery [id number] D:127 Normal [facility] Patient Educationon 01-06-20 23 Patient Education [...] Rhubarb. ? Beets. ? Potato chips and scottish fries. ? Nuts. ? If you regularly take a diuretic medicine, make sure to eat at least 1?2 fruits or vegetables high in potassium each day. These include: ? Avocado. ? Banana. ? Terra Bella, prune, carrot, or tomato juice. ? Baked [...] Salad dr (more content not included)... Normal [facility] Screenson 01-05-2023 Screens [id number] D:127 Normal [facility] Urology Office/Clinic Noteon 01-05-2023 Urology Office/Clinic [...] Hx of nephrostomy tube for stones at [facility] in 2013. -Will schedule Left ESWL. [...] diabetes control Follow-up With When Contact Information NINA LEVY, Jude Crespo, URL [facility] [address], [place] [address]- Additional Instructions: schedule L ESWL, 3 mos with met w/up Patient Education Dietary Guidelines to Help Prevent Kidney Stones I, Kenzie Fierro, personally scribed for Dr. Beach on 01/05/2023 11:39:27. Electronically (more content not included)... Normal [facility] Comment on above: Result Comment: Elec tronically Signed By: Jude BEACH MD\.br\Date and Time Signed: 01/05/23 11:41 EST\.br\Electronically Co-Signed By: Kenzie Fierro\.br\Date and Time Co-Signed: 01/05/23 11:39 EST [facility] 01-03-2023 Lab Reports [id number] CD:127 Normal [facility] XR KUB 1 VIEWon 01-01-2023 XR [...] by: TALI ISRAEL Date: 2023-01-01 16:46 Normal [facility] GLYCOHEMOGLOBIN A1Con 2022 ADA RECOMMENDATION SEE BELOW Normal [facility] Comment on above: Result Comment: ADA RECOMMENDED LIMIT 4.0 - 6.0 ADA THERAPEUTIC TARGET < 7.0 ACTION SUGGESTED > 7.0 Performed By: #### A 1C #### [facility] [address] [place] [address] [address] Cleveland Snowden Glucose [Mass/Vol] 126 mg/dL Normal [facility] Comment on above: Performed By: #### A 1C #### [facility] [address] [place] [address] [address] Cleveland Snowden HbA1c (Bld) [Mass fraction] 6.0 % Normal 4.5-6.2 [facility] Comment on above: Performed By: #### A 1C #### [facility] [address] [place] [address] [address] Cleveland Snowden Patient Educationon 09-21-20 Patient [...] Follow these instructions at home: ? Take duou-rpi-bknbsbf and prescription medicines only as told by [...] You d (more content not included)... Normal [facility] Lab Reportson 09-14-2022 Lab Reports [id number] D:127 Normal [facility] RAD - MISCon 09-14-2022 RAD - MISC [id number] D:127 Normal [facility] XR KUB 1 VIEWon 09-09-2022 XR [...] by: TALI ISRAEL Date: 2022-09-09 15:01 Normal [facility] GLYCOHEMOGLOBIN A1Con 2021 ADA RECOMMENDATION SEE BELOW Normal [facility] Comment on above: Result Comment: ADA RECOMMENDED LIMIT 4.0 - 6.0 ADA THERAPEUTIC TARGET < 7.0 ACTION SUGGESTED > 7.0 Performed By: #### A 1C #### [facility] [address] [place] [address] Dr. Cleveland Snowden Glucose [Mass/Vol] 131 mg/dL Normal [facility] Comment on above: Performed By: #### A 1C #### [facility] [address] [place] [address] [address] Cleveland Snowden HbA1c (Bld) [Mass fraction] 6.2 % Normal 4.5-6.2 [facility] Comment on above: Performed By: #### A 1C #### [facility] [address] [place] [address] Dr. Cleveland Snowden LIPID PROFILEon 08-06-2022 CHOL-HDL RATIO NORM SEE BELOW Normal [facility] Comment on above: Result Comment: 3.3 - 4.4 LOW RISK 4.4 - 7.1 AVERAGE RISK 7.1 - 11.0 MODERATE RISK >11.0 HIGH RISK Performed By: #### A 1C #### [facility] [address] [place], [place] [address] Dr. Cleveland Snowden Cholesterol [Mass/Vol] 108 mg/dL Normal <=200 [facility] Comment on above: Performed By: #### A 1C #### [facility] [address] [place], [place] [address] Dr. Cleveland Snowden Cholesterol in HDL [Mass/Vol] 36 mg/dL Critically low 40-60 [facility] Comment on above: Performed By: #### A 1C #### [facility] [address] [place] [address] [address] Cleveland Snowden Cholesterol in LDL [Mass/Vol] 45.0 mg/dL Normal [facility] Comment on above: Performed By: #### A 1C #### [facility] [address] [place] [address] [address] Cleveland Snowden Cholesterol.total/Ch olesterol in HDL [Mass ratio] 3.0 {ratio} Normal [facility] Comment on above: Performed By: #### A 1C #### [facility] [address] [place] [address] [address] Cleveland Snowden HDL NORMAL > or = 60 mg/dl - LO W CARDIOVASCULAR RISK <40 mg/dl - HIGH CARDIOVASCULAR RISK Normal [facility] Comment on above: Performed By: #### A 1C #### [facility] [address] [place] [address] [address] Cleveland Snowden LDL CALC NORMAL SEE BELOW Normal [facility] Comment on above: Result Comment: <100 mg/dl OPTIMAL 100 - 129 mg/dl NEAR OR ABOVE OPTIMAL 130 - 159 mg/dl BORDERLINE HIGH 160 - 189 mg/dl HIGH >190 mg/dl VERY HIGH Performed By: #### A 1C #### [facility] [address] [place] [address] [address] Cleveland Snowden Triglyceride [Mass/Vol] 135 mg/dL Normal <=150 [facility] Comment on above: Performed By: #### A 1C #### [facility] [address] [place] [address] [address] Cleveland Snowden VLDL CALC 27.0 mg/dL Normal [facility] Comment on above: Performed By: #### A 1C #### [facility] [address] [place] [address] [address] Cleveland Snowden GLYCOHEMOGLOBIN A1Con 2021 ADA RECOMMENDATION SEE BELOW Normal [facility] Comment on above: Result Comment: ADA RECOMMENDED LIMIT 4.0 - 6.0 ADA THERAPEUTIC TARGET < 7.0 ACTION SUGGESTED > 7.0 Performed By: #### A 1C #### [facility] [address] [place] [address] [address] Cleveland Snowden Glucose [Mass/Vol] 154 mg/dL Normal [facility] Comment on above: Performed By: #### A 1C #### [facility] [address] [place] [address] Dr. Cleveland Snowden HbA1c (Bld) [Mass fraction] 7.0 % Critically high 4.5-6.2 [facility] Comment on above: Performed By: #### A 1C #### [facility] [address] [place] [address] [address] Cleveland Snowden LIPID PROFILEon 05-05-2022 CHOL-HDL RATIO NORM SEE BELOW Normal [facility] Comment on above: Result Comment: 3.3 - 4.4 LOW RISK 4.4 - 7.1 AVERAGE RISK 7.1 - 11.0 MODERATE RISK >11.0 HIGH RISK Performed By: #### P T, PTT #### [facility] [address] [place] [address] Dr. Cleveland Snowden Cholesterol [Mass/Vol] 104 mg/dL Normal <=200 [facility] Comment on above: Performed By: #### P T, PTT #### [facility] [address] [place] [address] Dr. Cleveland Snowden Cholesterol in HDL [Mass/Vol] 24 mg/dL Critically low 40-60 [facility] Comment on above: Performed By: #### P T, PTT #### [facility] [address] [place] [address] [address] Cleveland Snowden Cholesterol in LDL [Mass/Vol] 28.0 mg/dL Normal [facility] Comment on above: Performed By: #### P T, PTT #### [facility] [address] [place] [address] [address] Cleveland Snowden Cholesterol.total/Ch olesterol in HDL [Mass ratio] 4.3 {ratio} Normal [facility] Comment on above: Performed By: #### P T, PTT #### [facility] [address] [place] [address] Dr. Cleveland Snowden HDL NORMAL > or = 60 mg/dl - LO W CARDIOVASCULAR RISK <40 mg/dl - HIGH CARDIOVASCULAR RISK Normal [facility] Comment on above: Performed By: #### P T, PTT #### [facility] [address] [place] [address] [address] Cleveland Snowden LDL CALC NORMAL SEE BELOW Normal [facility] Comment on above: Result Comment: <100 mg/dl OPTIMAL 100 - 129 mg/dl NEAR OR ABOVE OPTIMAL 130 - 159 mg/dl BORDERLINE HIGH 160 - 189 mg/dl HIGH >190 mg/dl VERY HIGH Performed By: #### P T, PTT #### [facility] [address] [place] [address] Dr. Cleveland Snowden Triglyceride [Mass/Vol] 260 mg/dL Critically high <=150 [facility] Comment on above: Performed By: #### P T, PTT #### [facility] [address] [place] [address] Dr. Cleveland Snowden VLDL CALC 52.0 mg/dL Normal [facility] Comment on above: Performed By: #### P T, PTT #### [facility] [address] [place] [address] Dr. Cleveland Snowden PROF 14(COMP METB)on 022 Albumin [Mass/Vol] 3.5 g/dL Normal 3.4-5.0 [facility] Comment on above: Performed By: #### P T, PTT #### [facility] [address] [place] [address] Dr. Cleveland Snowden Albumin/Globulin [Mass ratio] 1.1 {ratio} Normal [facility] Comment on above: Performed By: #### P T, PTT #### [facility] [address] [place] [address] Dr. Cleveland Snowden ALP [Catalytic activity/Vol] 59 U/L Normal 46-116 [facility] Comment on above: Performed By: #### P T, PTT #### [facility] [address] [place] [address] [address] Cleveland Snowden ALT [Catalytic activity/Vol] 46 U/L Normal 16-63 [facility] Comment on above: Performed By: #### P T, PTT #### [facility] [address] [place] [address] [address] Cleveland Snowden Anion gap [Moles/Vol] 14.7 mmol/L Normal [facility] Comment on above: Performed By: #### P T, PTT #### [facility] [address] [place] [address] Dr. Cleveland Snowden AST [Catalytic activity/Vol] 46 U/L Critically high 15-37 [facility] Comment on above: Performed By: #### P T, PTT #### [facility] [address] [place] [address] Dr. Cleveland Snowden Bilirubin [Mass/Vol] 0.5 mg/dL Normal 0.2-1.0 [facility] Comment on above: Performed By: #### P T, PTT #### [facility] [address] [place] [address] Dr. Cleveland Snowden Calcium [Mass/Vol] 9.5 mg/dL Normal 8.5-10.1 [facility] Comment on above: Performed By: #### P T, PTT #### [facility] [address] [place] [address] Dr. Cleveland Snowden Chloride [Moles/Vol] 103 mmol/L Normal 98-107 [facility] Comment on above: Performed By: #### P T, PTT #### [facility] [address] [place] [address] [address] Cleveland Snowden CO2 [Moles/Vol] 28.1 mmol/L Normal 21.0-32.0 [facility] Comment on above: Performed By: #### P T, PTT #### [facility] [address] [place] [address] Dr. Cleveland Snowden Creatinine [Mass/Vol] 0.84 mg/dL Normal 0.70-1.30 [facility] Comment on above: Performed By: #### P T, PTT #### [facility] [address] [place] [address] Dr. Cleveland Snowden EGFR-AF HONDURAN >60 Normal >=60 [facility] Comment on above: Performed By: #### P T, PTT #### [facility] [address] [place] [address] [address] Cleveland Snowden EGFR-NON AF HONDURAN >60 Normal >=60 [facility] Comment on above: Performed By: #### P T, PTT #### [facility] [address] [place] [address] Dr. Cleveland Snowden Globulin (S) [Mass/Vol] 3.1 g/dL Normal [facility] Comment on above: Performed By: #### P T, PTT #### [facility] [address] [place] [address] Dr. Cleveland Snowden Glucose [Mass/Vol] 176 mg/dL Critically high 74-106 [facility] Comment on above: Performed By: #### P T, PTT #### [facility] [address] [place] [address] Dr. Cleveland Snowden Potassium [Moles/Vol] 3.8 mmol/L Normal 3.5-5.1 [facility] Comment on above: Performed By: #### P T, PTT #### [facility] [address] [place] [address] Dr. Cleveland Snowden Protein [Mass/Vol] 6.6 g/dL Normal 6.4-8.2 [facility] Comment on above: Performed By: #### P T, PTT #### [facility] [address] [place] [address] Dr. Cleveland Snowden Sodium [Moles/Vol] 142 mmol/L Normal 136-145 [facility] Comment on above: Performed By: #### P T, PTT #### [facility] [address] [place] [address] Dr. Cleveland Snowden Urea nitrogen [Mass/Vol] 24.0 mg/dL Critically high 7.0-18.0 [facility] Comment on above: Performed By: #### P T, PTT #### [facility] [address] [place] [address] [address] Cleveland Snowden Urea nitrogen/Creatinine [Mass ratio] 28.6 mg/mg Normal [facility] Comment on above: Performed By: #### P T, PTT #### [facility] [address] [place] [address] [address] Cleveland Snowden URIC ACID SERUMon 05-05-2022 Urate [Mass/Vol] 6.2 mg/dL Normal 3.5-7.2 [facility] Comment on above: Performed By: #### P T, PTT #### [facility] [address] [place] [address] [address] Cleveland Snowden Basophils Auto (Bld) [#/Vol] on 04-03-2021 Basophils (Bld) [#/Vol] 0.0 10*3/uL 0.0-0.2 [facility] Basophils/100 WBC Auto (Bld) on 04-03-2021 Basophils/100 WBC (Bld) 0.6 % [facility] Blood hemoglobin measurement (mass/volume)on 04-03-2021 Hemoglobin (Bld) [Mass/Vol] 12.2 g/dL 13.0-17.0 [facility] Blood leukocytes automated c ount (number/volume)on 04-03-2021 WBC (Bld) [#/Vol] 4.7 10*3/uL 4.5-11.0 [facility] Creatinine and Glomerular fi ltration rate.predicted panel (S/P/Bld)on 04-03-2021 Creatinine [Mass/Vol] 0.68 mg/dL 0.64-1.27 [facility] Eosinophils Auto (Bld) [#/Vo l]on 04-03-2021 Eosinophils (Bld) [#/Vol] 0.1 10*3/uL 0.0-0.45 [facility] Eosinophils/100 WBC Auto (Bl d)on 04-03-2021 Eosinophils/100 WBC (Bld) 3.1 % [facility] Erythrocyte distribution wid th Auto (RBC) [Ratio]on 04-03-2021 Erythrocyte distribution width (RBC) [Ratio] 15.0 % 12.0-14.8 [facility] Estimated glomerular filtrat ion rate (GFR) non- Americanon 04-03-2021 GFR/1.73 sq M.predicted among non-blacks MDRD (S/P/Bld) [Vol rate/Area] > 60 mL/Min [facility] Hematocrit Auto (Bld) [Volum e fraction]on 04-03-2021 Hematocrit (Bld) [Volume fraction] 36.2 % 38.8-50.0 [facility] - Hematology and Cell countson 04-03-2021 Nucleated RBC/100 WBC (Bld) [Ratio] 0.2 % 0-0.5 [facility] Lymphocytes Auto (Bld) [#/Vo l]on 04-03-2021 Lymphocytes (Bld) [#/Vol] 0.7 10*3/uL 1.00-4.8 [facility] Lymphocytes/100 WBC Auto (Bl d)on 04-03-2021 Lymphocytes/100 WBC (Bld) 14.5 % [facility] MCH Auto (RBC) [Entitic mass ]on 04-03-2021 MCH (RBC) [Entitic mass] 31.3 pg 27.5-35.2 [facility] MCHC Auto (RBC) [Mass/Vol]on 04-03-2021 MCHC (RBC) [Mass/Vol] 33.8 g/dL 32.5-35.6 [facility] MCV Auto (RBC) [Entitic vol] on 04-03-2021 MCV (RBC) [Entitic vol] 92.6 fL 83.5-101 [facility] Monocytes Auto (Bld) [#/Vol] on 04-03-2021 Monocytes (Bld) [#/Vol] 0.5 10*3/uL 0.0-0.8 [facility] Monocytes/100 WBC Auto (Bld) on 04-03-2021 Monocytes/100 WBC (Bld) 10.7 % [facility] Neutrophils Auto (Bld) [#/Vo l]on 04-03-2021 Neutrophils (Bld) [#/Vol] 3.3 10*3/uL 1.8-7.7 [facility] Neutrophils/100 WBC Auto (Bl d)on 04-03-2021 Neutrophils/100 WBC (Bld) 71.1 % [facility] No Panel Informationon 04-03 Estimated GFR () > 60 mL/Min [facility] Comment on above: GFR estimated refere nce range: According to KDOQI guidelines, <60 ml/min/1.73m2 is sufficient to diagnose a patient with chronic kidney disease. Pharmacy Creatinine Clearance (Chem N/A [facility] Platelet mean volume Auto (B ld) [Entitic vol]on 04-03-2021 Platelet mean volume (Bld) [Entitic vol] 8.5 fL 6.6-10.1 [facility] Platelets Auto (Bld) [#/Vol] on 04-03-2021 Platelets (Bld) [#/Vol] 137 10*3/uL 150-450 [facility] RBC Auto (Bld) [#/Vol]on RBC (Bld) [#/Vol] 3.91 10*6/uL 3.90-5.60 [facility] Serum or plasma calcium edu urement (mass/volume)on 04-03-2021 Calcium [Mass/Vol] 9.8 mg/dL 8.2-10.2 [facility] Serum or plasma chloride merlyn surement (moles/volume)on 04-03-2021 Chloride [Moles/Vol] 100 mmol/L 95-114 [facility] Serum or plasma glucose deu urement (mass/volume)on 04-03-2021 Glucose [Mass/Vol] 184 mg/dL 70-100 [facility] Comment on above: ADA recommended refe rence rangeRandom Glucose Reference Range is dependent on time and content of last meal. Glucose of more than 200 mg/dL in a nonstressed, ambulatory subject supports the diagnosis of Diabetes Mellitus. Serum or plasma potassium me asurement (moles/volume)on 04-03-2021 Potassium [Moles/Vol] 3.6 mmol/L 3.5-5.1 [facility] Serum or plasma sodium measu rement (moles/volume)on 04-03-2021 Sodium [Moles/Vol] 138 mmol/L 136-146 [facility] Serum or plasma total carbon dioxide measurement (moles/volume)on 04-03-2021 CO2 [Moles/Vol] 26.3 mmol/L 22.0-30.0 [facility] Serum or plasma urea nitroge n measurement (mass/volume)on 04-03-2021 Urea nitrogen [Mass/Vol] 17 mg/dL 9 [facility] Basophils Auto (Bld) [#/Vol] on 02-11-2021 Basophils (Bld) [#/Vol] 0.0 10*3/uL 0.0-0.2 [facility] Basophils/100 WBC Auto (Bld) on 02-11-2021 Basophils/100 WBC (Bld) 0.6 % [facility] Blood hemoglobin measurement (mass/volume)on 02-11-2021 Hemoglobin (Bld) [Mass/Vol] 12.6 g/dL 13.0-17.0 [facility] Blood leukocytes automated c ount (number/volume)on 02-11-2021 WBC (Bld) [#/Vol] 4.4 10*3/uL 4.5-11.0 [facility] Eosinophils Auto (Bld) [#/Vo l]on 02-11-2021 Eosinophils (Bld) [#/Vol] 0.2 10*3/uL 0.0-0.45 [facility] Eosinophils/100 WBC Auto (Bl d)on 02-11-2021 Eosinophils/100 WBC (Bld) 3.8 % [facility] Erythrocyte distribution wid th Auto (RBC) [Ratio]on 02-11-2021 Erythrocyte distribution width (RBC) [Ratio] 14.9 % 12.0-14.8 [facility] Hematocrit Auto (Bld) [Volum e fraction]on 02-11-2021 Hematocrit (Bld) [Volume fraction] 36.1 % 38.8-50.0 [facility] - Hematology and Cell countson 02-11-2021 Nucleated RBC/100 WBC (Bld) [Ratio] 0.1 % 0-0.5 [facility] Lymphocytes Auto (Bld) [#/Vo l]on 02-11-2021 Lymphocytes (Bld) [#/Vol] 0.7 10*3/uL 1.00-4.8 [facility] Lymphocytes/100 WBC Auto (Bl d)on 02-11-2021 Lymphocytes/100 WBC (Bld) 15.4 % [facility] MCH Auto (RBC) [Entitic mass ]on 02-11-2021 MCH (RBC) [Entitic mass] 32.5 pg 27.5-35.2 [facility] MCHC Auto (RBC) [Mass/Vol]on 02-11-2021 MCHC (RBC) [Mass/Vol] 34.8 g/dL 32.5-35.6 [facility] MCV Auto (RBC) [Entitic vol] on 02-11-2021 MCV (RBC) [Entitic vol] 93.3 fL 83.5-101 [facility] Monocytes Auto (Bld) [#/Vol] on 02-11-2021 Monocytes (Bld) [#/Vol] 0.5 10*3/uL 0.0-0.8 [facility] Monocytes/100 WBC Auto (Bld) on 02-11-2021 Monocytes/100 WBC (Bld) 12.1 % [facility] Neutrophils Auto (Bld) [#/Vo l]on 02-11-2021 Neutrophils (Bld) [#/Vol] 3.0 10*3/uL 1.8-7.7 [facility] Neutrophils/100 WBC Auto (Bl d)on 02-11-2021 Neutrophils/100 WBC (Bld) 68.1 % [facility] Platelet mean volume Auto (B ld) [Entitic vol]on 02-11-2021 Platelet mean volume (Bld) [Entitic vol] 8.2 fL 6.6-10.1 [facility] Platelets Auto (Bld) [#/Vol] on 02-11-2021 Platelets (Bld) [#/Vol] 118 10*3/uL 150-450 [facility] RBC Auto (Bld) [#/Vol]on RBC (Bld) [#/Vol] 3.87 10*6/uL 3.90-5.60 [facility] Creatinine (Bld) [Mass/Vol]o n 01-10-2021 Creatinine [Mass/Vol] 0.7 mg/dL 0.6-1.3 [facility] Comment on above: ER/ESD physician is notified/shown all ISTAT results.Critical values may be confirmed by laboratory testing ifdeemed necessary by ER attending doctor. No Panel Informationon 01-10 POC Estimated GFR > 60 [facility] Comment on above: GFR estimated refere nce range: According to KDOQI guidelines, <60 ml/min/1.73m2 is sufficient to diagnose a patient with chronic kidney disease. POC Estimated GFR Non- Amer > 60 [facility] Vital Signs Date Time Vital Sign Value Performing Clinician Marcelino long 12-09-2023 11:01-0500 Body height 190.5 cm Preet Enrique DPM Work Phone: [facility] 12-09-2023 11:01-0500 Body mass index (BMI) [Ratio] 36.87 kg/m2 Preet Enrique DPM Work Phone: [facility] 12-09-2023 11:01-0500 Body weight 133.81 kg Preet Haja DPM Work Phone: [facility] 07-21-2023 13:32-0400 Blood Pressure Location Jude BEACH [facility] 07-21-2023 13:32-0400 Diastolic blood pressure 64 mm[Hg] Jude BEACH [facility] 07-21-2023 13:32-0400 Heart rate 54 /min Jude BEACH [facility] 07-21-2023 13:32-0400 Systolic blood pressure 117 mm[Hg] Jude BEACH [facility] 01-05-2023 10:47-0500 Blood Pressure Location Jude BEACH [facility] 01-05-2023 10:47-0500 Diastolic blood pressure 93 mm[Hg] Jude BEACH [facility] 01-05-2023 10:47-0500 Heart rate 58 /min Jude BEACH [facility] 01-05-2023 10:47-0500 Systolic blood pressure 152 mm[Hg] Jude BEACH [facility] Encounters Encounter Date Encounter Type Care Provider Facility Start: 07-26-2024 ambulatory Jude Gonzalezi ty:[facility] Start: 04-11-2024 End: 04-11-2024 ambulatory OLIVE HAMPTON Not Available Start: 04-03-2024 End: 04-03-2024 ambulatory KHOA BOWLES Not Available Start: 2024 ambulatory KHOA BOWLES [facility] Start: 03-14-2024 End: 03-14-2024 ambulatory PREET ENRIQUE Not Available Start: 03-09-2024 End: 03-09-2024 ambulatory [facility] Start: 02-14-2024 End: 02-14-2024 ambulatory KHOA BOWLES Not Available Start: 02-03-2024 End: 02-03-2024 ambulatory KHOA BOWLES Not Available Start: 12-09-2023 End: 12-09-2023 Patient encounter procedure Preet Enrique DPM Work Phone: [facility] PODIATRY Comment on above: 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, not 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) (CMS/[facility]) (Primary Dx); Onychomycosis; Hallux limitus, left; Acquired keratoderma Start: 12-09-2023 End: 12-09-2023 ambulatory PREET ENRIQUE Not Available Start: 11-04-2023 End: 11-04-2023 ambulatory KHOA BOWLES Not Available Start: 08-05-2023 End: 08-05-2023 ambulatory Olive Hampton Facility:[facility] Start: 08-05-2023 End: 08-05-2023 ambulatory MD Khoa Bowles Work Phone: [facility] Work Phone: Start: 08-05-2023 End: 08-05-2023 Patient encounter procedure MD Khoa Bowles Work Phone: [facility] [address] Work Phone: Start: 07-21-2023 End: 07-22-2023 ambulatory Jude BEACH Facility:[facility] Start: 07-21-2023 End: 07-21-2023 Patient encounter procedure Jude BEACH [facility] Start: 07-16-[address] KHOA BOWLES . Fac ility:[facility] Start: 05-24-2023 ambulatory Jude BEACH Facili ty:[facility] Start: 02-04-2023 End: 02-05-[address] JUDE BEACH . Facility:[facility] Start: 01-14-2023 End: 01-15-[address] JUDE BEACH . Facility:[facility] Start: 01-12-2023 Encounter for other preprocedural examination DR JUDE BEACH . [facility] Start: 01-12-2023 Encounter for preprocedural cardiovascular examination DR JUDE BEACH . [facility] Start: 01-12-2023 Encounter for preprocedural laboratory examination DR JUDE BEACH . [facility] Start: 01-08-2023 End: 01-09-[address] JUDE BEACH . Facility:[facility] Start: 01-08-2023 End: 01-09-2023 Encounter for preprocedural laboratory examination DR JUDE BEACH . Facility: Start: 01-05-2023 End: 01-06-2023 ambulatory Jude BEACH Facility:[facility] Start: 01-05-2023 End: 01-05-2023 Patient encounter procedure Jude BEACH [facility] Start: 12-31-2022 End: 01-01-[address] KHOA BOWLES . Facility: Start: 11-02-[address] KHOA BOWLES . Fac ility:[facility] Start: 09-21-2022 End: 09-22-2022 ambulatory Jude BEACH Facility:[facility] Start: 09-21-2022 End: 09-21-2022 Patient encounter procedure Jude BEACH [facility] Start: 09-09-2022 End: 09-10-[address] JUDE BEACH . Facility: Start: 08-06-2022 End: 08-07-[address] KHOA BOWLES . Facility: Start: 05-05-2022 End: 05-06-[address] KHOA BOWLES . Facility: Start: 04-03-2021 End: 04-03-2021 Patient encounter procedure Khoa Bowles Work Phone: -Pre-Surgical Testing Start: 02-11-2021 End: 02-11-2021 Patient encounter procedure Khoa Bowles Work Phone: -[facility] [place] Start: 01-10-2021 End: 01-10-2021 Patient encounter procedure [...] Performed By: #### P T, PTT #### [facility] [address] [address] [address] Cleveland Snowden Start: 09-09-[address] LILIANE BEACH . Comment on above: Performed By: #### P SAD #### [facility] [address] [address] [address] Cleveland Snowden Start: 01-10-2021 MRI of [...] calculus of renal pelvis through percutaneous nephrostomy Judestuart BEACH Start: 12-27-2013 Cystoscopic extracti on of [...] ng muscles and tendons (body structure) Jude NINA Plan of Treatment Date Care Activity Detail Author Start: 06-17-2026 Screening for malign ant neoplasm of colon [facility] Start: 06-08-2024 Glaucoma screening Diabetes: R etinopathy Screening [facility] Start: 03-09-2024 End: 03-09-2024 Patient encounter procedure 03/09/2024 1:00 PM EDT Procedure Visit [facility] [address] [place] [id number] Preet Enrique DPM [address] [place], [place] [id number] [facility] Start: 02-23-2024 Medicare Annual Well ness (AWV) Medicare Annual Wellness (AWV) [facility] Start: 02-03-2024 End: 02-03-2024 Patient encounter procedure 02/03/2024 11:30 AM EDT Office Visit [facility] [address] [place] [address] Khoa Bowles MD [address] [place] [address] (Fax) [facility] Start: 01-18-2024 Hemoglobin A1c measurement Diabetes: Hemoglobin A1C [facility] Start: 1950 Screening for malign ant neoplasm of colon [facility] Immunizations Immunization Date Immunization Notes Care Provider Fa [facility] 10-14-2023 Influenza, Seasonal, Quadrivalent, Adjuvanted Preet Enrique DPM Work Phone: [facility] 09-09-2022 SARS-CoV-2 (COVID-19 ) [id number] Jude NINA [facility] 09-03-2022 influenza virus vacc ine, unspecified formulation Jude NINA [facility] 09-03-2022 Influenza, High-dose Seasonal, Quadrivalent, Preservative Free Preet Enrique DPM Work Phone: [facility] 09-26-2021 SARS-CoV-2 (COVID-19 ) mRNA-1273 vaccine Jude BEACH [facility] 09-25-2021 Moderna SARS-CoV-2 Booster Vaccination Preet Enrique DPM Work Phone: [facility] 08-22-2021 influenza virus vacc ine, unspecified formulation Jude BEACH [facility] 08-22-2021 Influenza, Seasonal, Quadrivalent, Adjuvanted Preet Enrique DPM Work Phone: [facility] 08-20-2021 influenza virus vacc ine, unspecified formulation Jude BEACH [facility] 01-25-2021 COVID-19 mRNA-1273 (Moderna) Khoa Bowles Work Phone: [facility] 01-25-2021 SARS-CoV-2 (COVID-19 ) Ad26 vaccine, recombinant Jude BEACH [facility] 12-28-2020 COVID-19 mRNA-1273 (Moderna) Khoa Bowles Work Phone: [facility] Comment on above: Result Comment: 2022: [id number] 08-06-2020 influenza virus vacc ine, unspecified formulation Jude BEACH [facility] 08-06-2020 Influenza, Seasonal, Quadrivalent, Adjuvanted Preet Enrique DPM Work Phone: [facility] 09-04-2019 influenza virus vacc ine, unspecified formulation Jude BEACH [facility] 09-04-2019 influenza, high dose seasonal, preservative-free Preet Enrique DPM Work Phone: [facility] 08-19-2018 influenza virus vacc ine, unspecified formulation Jude BEACH [facility] 08-19-2018 influenza, high dose seasonal, preservative-free Preet Enrique DPM Work Phone: [facility] 09-06-2017 influenza virus vacc ine, unspecified formulation Jude BEACH [facility] 09-06-2017 influenza, high dose seasonal, preservative-free Preet Enrique DPM Work Phone: [facility] 09-06-2017 pneumococcal polysaccharide vaccine, 23 valent Jude BEACH [facility] 08-18-2017 influenza virus vacc ine, unspecified formulation Jude BEACH [facility] 08-17-2016 influenza virus vacc ine, unspecified formulation Jude BEACH [facility] 08-17-2016 influenza, high dose seasonal, preservative-free Preet Enrique DPM Work Phone: [facility] 08-17-2016 pneumococcal conjuga te vaccine, 13 valent Jude BEACH [facility] 08-22-2015 zoster vaccine, live Jude BEACH [facility] 08-17-2015 influenza, seasonal, injectable, preservative free Preet Enrique DPM Work Phone: [facility] 07-27-2013 influenza virus vacc ine, unspecified formulation Jude BEACH [facility] 02-22-2012 pneumococcal polysaccharide vaccine, 23 valent Preet Enrique DPM Work Phone: [facility] 07-20-2009 pneumococcal polysaccharide vaccine, 23 valent Jude NINA [facility] Payers Date Payer Category Payer Medicare [id number] 2016 Medicare MEDICARE MEDICAR E PART B [id number] 2016-Present [address] [address] [place] [address] Medicare [id number] 2016 Private Health Insurance [employer]LEMENT [id number] 2016-Present [address] [address] [place] [address] Supplement [id number] 2015 Medicare [id number] 1959 Medicare [id number] 1959 Private Health Insurance [facility] [id number] 1959 Self-pay [id number] 1950 Unknown [id number] .840.1.667323.3.579 .2.59 1950 Unknown [id number] .840.1.463973.3.579 .2.59 1950 Unknown [id number] 2.16.840.1.733080.3.579 .2.593 1950 Unknown [id number] 2.16.840.1.048249.3.579 .2.593 1950 Unknown [id number] 2.16.840.1.072548.3.579 .2.593 1950 Unknown [id number] 2.16.840.1.520178.3.579 .2.593 1950 Unknown [id number] 2.16.840.1.732511.3.579 .2.593 1950 Unknown [id number] 2.16.840.1.883642.3.579 .2.593 1950 Unknown [id number] 2.16.840.1.395498.3.579 .2.593 1950 Unknown [id number] 2.16.840.1.199571.3.579 .2.593 1950 Unknown [id number] 2.16.840.1.611306.3.579 .2.727 1950 Unknown [id number] 2.16.840.1.692152.3.579 .2.727 1950 Unknown [id number] 2.16.840.1.770132.3.579 .2.727 1950 Unknown [id number] 2.16.840.1.237341.3.579 .2.727 1950 Unknown [id number] 2.16.840.1.867430.3.579 .2.727 1950 Unknown [id number] 2.16.840.1.620676.3.579 .2.727 1950 Unknown [id number] 2.16.840.1.550465.3.579 .2.1259 1950 Unknown [id number] 2.16.840.1.294982.3.579 .2.125 1950 Unknown [id number] 2.16.840.1.343653.3.579 .2.1259 1950 Unknown [id number] 2.16.840.1.054013.3.579 .2.1259 1950 Unknown [id number] 2.16.840.1.647351.3.579 .2.9 1950 Unknown [id number] 2.16.840.1.873900.3.579 .2.9 1950 Unknown [id number] 2.16.840.1.566150.3.579 .2.1259 1950 Unknown [id number] 2.16.840.1.675917.3.579 .2.1286 1950 Unknown [id number] 2.16.840.1.611986.3.579 .2.1285 1950 Unknown [id number] 2.16.840.1.823166.3.579 .2.1286 Unknown [id number] Unknown [id number] 2.16.840.1.058538.3.579 .2.531 Social History Date Type Detail Facility Start: 04-03-2021 End: 06-02-2023 Tobacco smoking status PRIS Never smoked tobacco (finding) [facility] Start: 1950 Sex Assigned At Male [facility] Tobacco smoking status Never [facility] Start: 11-04-2023 End: 12-09-2023 Sex Assigned At Male [facility] Start: 12-09-2023 Alcohol intake Lifetime non-d alexis (finding) [facility] Start: 11-04-2023 End: 12-09-2023 History of Social function [facility] Start: 04-14-2023 Alcohol Comment Caffeine intake: non e [facility] Start: 1950 Sex Assigned At Not on file [facility] Medical Equipment Procedure Code Equipment Code Equipment Origin al Text Equipment Identifier Dates Discectomy, lumbar COFLEX SIZE [address] art: 11-23-2018 Discectomy, lumbar COFLEX SIZE [address] art: 11-23-2018 Discectomy, lumbar COFLEX SIZE [address] art: 11-23-2018 Discectomy, lumbar COFLEX SIZE [address] art: 11-23-2018 1 each by In Vit ro route in the morning. Take before meals. [id number] Start: 08-02-2023 End: 07-27-2024 1 Units in the morning. Take before meals. Accucheck soft clix. [id number] Start: 11-10-2023 End: 11-04-2024 Injection subcutaneous [id number] Start: 11-11-2023 Functional Status Date Assessment Result Facility 07-21-2023 Functional Status N/A [facility] 01-05-2023 Functional Status N/A [facility] History of Present illness Narrative 12-09-2023 Preet Enrique DPM - 12/09/2023 11:00 AM EST Note [...] LV 11/04/2023, A1C: 7.6 (07/27/23),BS: 168 SS: 12).). [...] in the morning., Disp: , Rfl: biotin 68706 MCG tablet, 1 (one) time each day [...] of 1 of the Coflex devices., Uday, [facility] CUFF REPAIR Left 2000 anterior stabilization [...] Mood normal. Behavior: Behavior normal. MODIFIER: Q9, [address], [address] Assessment/Plan Diagnoses and all orders for this visit: Type II or unspecified type diabetes mellitus with neurological manifestations, not 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) (CMS/[facility]) Onychomycosis Hallux limitus, left Acquired keratoderma Conservative [...] Preet Enrique DPM documented in this encounter Located within [facility] Discharge instructions 07-21-2023 Note Date & Type [...] include: ?8 oz (237 mL) of milk, oabtyzo-kcbnzooahwxy-ptbmm milk, and calcium-fortifiedfruit juice. Calcium-fortified means that [...] ?Spinach (cooked), rhubarb, beets, sweet potatoes, and Cymraes chard. ?Peanuts. ?Potato chips, scottish fries, and baked potatoes with skin on. ?Nuts and nut products. ?Chocolate. If you regularly take a diuretic medicine, make sure to eat at least 1 or 2 servings of fruits or vegetables that are high in potassium each day. These include: ?Avocado. ?Banana. ?Terra Bella, prune, carrot, or tomato juice. ?Baked potato. [...] magnesium, fish oil, or vitamin B6. Take xljp-ohw-djhmvue and prescription medicines only as told by [...] Casseroles. Pizza. Lasagna. Frozen meals. Potato chips. Slovak fries. The items listed above may not [...] provider. Document Revised: 06/29/2022 Document Reviewed: 06/29/2022 [place] Patient Education 2022 [employer]. Follow Up Care 05/19/2023 09:51:24 With:NINA LEVY, Jude Crespo, URL Address: [facility] [address] , [place] [address]- When: Unknown [facility] Hospital Discharge instructions 01-05-2023 Note Date [...] include: ?Spinach. ?Rhubarb. ?Beets. ?Potato chips and scottish fries. ?Nuts. If you regularly take a diuretic medicine, make sure to eat at least 1 2 fruits or vegetables high in potassium each day. These include: ?Avocado. ?Banana. ?Terra Bella, prune, carrot, or tomato juice. ?Baked potato. [...] Casseroles. Pizza. Lasagna. Frozen meals. Potato chips. Slovak fries. Summary You can reduce your risk [...] 02/12/2012 Document Revised: 02/07/2020 Document Reviewed: 09/28/2017 [place] Patient Education 2019 [employer]. Follow Up Care 10/07/2022 10:58:19 With:NINA LEVY, Jude Crespo, URL Address: [facility] [address] , [place] [address]- When: Unknown [facility] Discharge instructions 09-21-2022 Note Date & [...] urethra. Follow these instructions at home: Take gjqb-kqa-lfklusn and prescription medicines only as told by [...] 10/18/2006 Document Revised: 09/12/2019 Document Reviewed: 11/22/2017 [place] Patient Education 2020 [employer]. Follow Up Care 12/22/2021 13:03:04 With:NINA LEVY, Jude Crespo, URL Address: [facility] [address], [place] [address]- When: Unknown [facility] Evaluation + Plan note Note Date & Type Note Facility Evaluation + Plan note No data available for this section [facility] Evaluation + Plan note Note Date & Type Note Facility Evaluation + Plan note Future Appointments Appointment Date:07/26/2024 01:45:00 PM Scheduled Provider:Jude BEACH MD Location:[facility] Appointment Type:URO Office Visit [facility] Evaluation note Note Date & Type Note Facility Evaluation note No assessment information availa [facility] Evaluation note Note Date & Type Note Facility Evaluation note Diagnosis Type II or unspecified type diabetes mellitus with neurological manifestations, not 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) (CMS/HCC)- Primary Type II or unspecified type diabetes mellitus with neurological manifestations, not stated as uncontrolled Onychomycosis Dermatophytosis of nail Hallux limitus, left Acquired keratoderma documented in this encounter [facility] Progress note Note Date & Type Note Facility Progress note No data available for this section [facility] Chief Complaint and Reason for Visit [...] Khoa Bowles MD Primary Care Provider Active Olive Hampton PA-C Attending Provider Active 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 Relationship Specialty Start Date End Date Khoa Bowles MD [address] [facility] [place] [address] PCP - General Family Medicine 04/08/23 Jude Beach MD [address] [place] [address] Referring Physician Urology 12/09/23 Preet Enrique DPM [address] [place] [address] Referring Physician Podiatry 12/09/23 (unrecognized sect ion and content) No Status Records FoundNo Status Records FoundNo Status Records FoundNo Status Records FoundNo Status Records Found INFORMATION SOURCE (unrecogn ized section and content) DATE CREATED AUTHOR 02/14/2023 [facility] DATE CREATED AUTHOR AUTHOR'S ORGANIZ ATION 08/06/2023 [facility] DATE CREATED AUTHOR AUTHOR'S ORGANIZ ATION 02/29/2024 [facility] DATE CREATED AUTHOR AUTHOR'S ORGANIZ ATION 04/11/2024 [facility] EPIC DATE CREATED AUTHOR AUTHOR'S ORGANIZ ATION 04/22/2024 [facility] Reason for Visit (unrecogniz ed section and [...] BE BASED ON THE PRIMARY CLINICAL RECORDS. [facility] [employer] [facility]. provides no warranty or guarantee of the accuracy or completeness of information in this document.
--- NOTE | 2024-04-28 13:21 | PM.PRESUREVA ---
History of Present Illness History of Present Illness Chief complaint: varicose veins Narrative: Patient presents for preadmission testing. The patient states he has a long history of bilateral lower extremity swelling, cellulitis, and painful varicose veins. He is scheduled for [address] Mora, Left leg to be done on May 11 and right leg to be done on May 25. Patient states he does take Tylenol to help with his pain and he wears his compression stockings every day. While he admits to using a walker and experiencing some activity intolerance, he denies dyspnea on exertion or chest pain. Review of Systems ROS Narrative REVIEW OF SYSTEMS: Negative except as stated in HPI, ten or more systems reviewed. Constitutional: No fever, chills, weakness ENT: No sore throat or epistaxis Cardiovascular: No chest pain or palpitations Respiratory: No shortness of breath, cough, or wheezing Musculoskeletal: No joint pain or swelling Gastrointestinal: No abdominal pain, constipation, diarrhea, or vomiting Genitourinary: No dysuria or hematuria Neurological: No numbness, tingling, weakness, or headache Psychiatric: No mood changes [facility] Medical History (Updated 04/28/24 @ 13:19 by Yumiko Friend NP) Back pain with history of spinal surgery ?M54.9 - Dorsalgia, unspecified (ICD-10) ?Z98.890 - Other specified postprocedural states (ICD-10) Back pain ?M54.9 - Dorsalgia, unspecified (ICD-10) Arthritis ?M19.90 - Unspecified osteoarthritis, unspecified site (ICD-10) Deep vein thrombosis ?I82.409 - Acute embolism and thrombosis of unspecified deep veins of unspecified lower extremity (ICD-10) Sleep apnea ?G47.30 - Sleep apnea, unspecified (ICD-10) High cholesterol ?E78.00 - Pure hypercholesterolemia, unspecified (ICD-10) Hypertension ?I10 - Essential (primary) hypertension (ICD-10) Extremity edema ?R60.0 - Localized edema (ICD-10) Varicose vein of leg ?I83.90 - Asymptomatic varicose veins of unspecified lower extremity (ICD-10) Benign essential hypertension ?I10 - Essential (primary) hypertension (ICD-10) Chronic venous stasis ?I87.8 - Other specified disorders of veins (ICD-10) Type 2 diabetes mellitus with diabetic polyneuropathy ?E11.42 - Type 2 diabetes mellitus with diabetic polyneuropathy (ICD-10) Type 2 diabetes mellitus with hyperglycemia ?E11.65 - Type 2 diabetes mellitus with hyperglycemia (ICD-10) Tooth abscess ?K04.7 - Periapical abscess without sinus (ICD-10) BPH (benign prostatic hyperplasia) ?N40.0 - Benign prostatic hyperplasia without lower urinary tract symptoms (ICD-10) Hyperlipidemia ?E78.5 - Hyperlipidemia, unspecified (ICD-10) Gout ?M10.9 - Gout, unspecified (ICD-10) BRETT (obstructive sleep apnea) ?G47.33 - Obstructive sleep apnea (adult) (pediatric) (ICD-10) Cellulitis ?L03.90 - Cellulitis, unspecified (ICD-10) PHT (portal hypertension) ?K76.6 - Portal hypertension (ICD-10) Neuropathy ?G62.9 - Polyneuropathy, unspecified (ICD-10) Diabetes ?E11.9 - Type 2 diabetes mellitus without complications (ICD-10) Blood clot in leg Cataracts, bilateral ?H26.9 - Unspecified cataract (ICD-10) Ureteral stent present ?Z96.0 - Presence of urogenital implants (ICD-10) Cellulitis of right foot ?L03.115 - Cellulitis of right lower limb (ICD-10) Kidney stones ?N20.0 - Calculus of kidney (ICD-10) Surgical History (Updated 04/28/24 @ 13:19 by Yumiko Friend NP) H/O cataract extraction ?Z98.49 - Cataract extraction status, unspecified eye (ICD-10) H/O cystoscopy ?Z98.890 - Other specified postprocedural states (ICD-10) H/O lithotripsy ?Z98.890 - Other specified postprocedural states (ICD-10) History of tooth extraction ?K08.409 - Partial loss of teeth, unspecified cause, unspecified class (ICD-10) S/p bilateral blepharoplasty ?Z98.890 - Other specified postprocedural states (ICD-10) Hx of decompressive lumbar laminectomy ?Z98.890 - Other specified postprocedural states (ICD-10) History of ankle fusion ?Z98.1 - Arthrodesis status (ICD-10) History of rotator cuff surgery ?Z98.890 - Other specified postprocedural states (ICD-10) History of hernia repair ?Z98.890 - Other specified postprocedural states (ICD-10) ?Z87.19 - Personal history of other diseases of the digestive system (ICD-10) Family History (Updated 02/07/24 @ 04:25 by Nikki Dunn RN) Father Family history of cancer Family history of hypertension Mother Advanced cirrhosis of liver Family history of diabetes mellitus Social History (Updated 02/07/24 @ 04:27 by Nikki Dunn RN) Within the past year, how often did you have a drink containing alcohol: never Score interpretation: A score less than 4 is consistent with normal alcohol consumption. Smoking status: Never smoker Non-prescribed substance use: denies use Highest level of school completed/degree received: Associate degree: occupational, technical, vocational program Are you now , , , , never or living with a partner: In a typical week, how many times do you talk on the telephone with family, friends, or neighbors: 3 or more times per week How often do you get together with friends or relatives: 3 or more times per week Do you belong to any clubs or organizations such as confucianist groups unions, [employer] or athletic groups, or school groups: yes Little interest or pleasure in doing things: not at all Feeling down, depressed, or hopeless: not at all Feel stressed/tense/nervous/anxious/difficulty sleeping: not at all Do you think of yourself as: straight/heterosexual Gender Identity: male Meds Home Medications and Allergies Home Medications ?Medication ?Instructions ?Recorded ?Confirmed ?Type allopurinol 300 mg tablet 300 mg PO DAILY 02/06/24 04/28/24 History aspirin 81 mg chewable tablet 81 mg PO DAILY 02/06/24 04/28/24 History biotin 10,000 mcg capsule 10,000 mcg PO BID 02/06/24 04/28/24 History dapagliflozin propanediol 10 mg 10 mg PO DAILY 02/06/24 04/28/24 History tablet (Farxiga) doxycycline monohydrate 100 mg 100 mg PO Q24H 02/06/24 04/28/24 History capsule fenofibrate 160 mg tablet 160 mg PO DAILY 02/06/24 04/28/24 History ferrous sulfate 325 mg (65 mg 325 mg PO DAILY 02/06/24 04/28/24 History iron) tablet (Feosol) gabapentin 300 mg capsule 300 mg PO Q12H 02/06/24 04/28/24 History hydrochlorothiazide 25 mg tablet 25 mg PO DAILY 02/06/24 04/28/24 History insulin detemir U-100 100 unit/mL 10 unit subcut BID 02/06/24 04/28/24 History (3 mL) subcutaneous pen (Levemir FlexPen) losartan 100 1 tab PO DAILY 02/06/24 04/28/24 History mg-hydrochlorothiazide 12.5 mg tablet lutein 20 mg tablet 20 mg PO DAILY 02/06/24 04/28/24 History metformin 1,000 mg tablet 1,000 mg PO BID 02/06/24 04/28/24 History metoprolol tartrate 50 mg tablet 50 mg PO BID 02/06/24 04/28/24 History sodium bicarbonate 650 mg tablet 1,950 mg PO BID 02/06/24 04/28/24 History spironolactone 25 mg tablet 25 mg PO Q12H 02/06/24 04/28/24 History tamsulosin 0.4 mg capsule 0.4 mg PO Q24H 02/06/24 04/28/24 History Allergies Allergy/AdvReac Type Severity Reaction Status Date / Time amoxicillin Allergy Intermediate Hives Verified 04/28/24 12:35 meperidine [From Demerol] AdvReac Chills Verified 04/28/24 12:35 Exam Narrative Exam Narrative: Constitutional: Awake, alert, comfortable, well-appearing, nontoxic, interactive, vital signs as charted Head: Normocephalic, atraumatic Neck: Supple, normal appearance, normal range of motion, no meningeal signs, no lymphadenopathy Respiratory: No respiratory distress, breath sounds clear Cardiovascular: Bradycardic rate and regular rhythm, strong and regular heart tones Musculoskeletal: Ambulates with a walker with a steady slow gait Skin: No rashes or induration, no lesions, only visible skin inspected Neuro: No neurological deficits, normal sensation Psychiatric: Oriented ?3, normal affect Assessment and Plan Assessment and Plan (1) Varicose vein of leg: Plan Left RFA GSV, phlebectomies, ultrasound-guided sclerotherapy scheduled with Dr. Mora May 11, 2024. Right RFA GSV, phlebectomies, ultrasound-guided sclerotherapy scheduled with Dr. Mora May 25, 2024.
[2024-04-28 13:52] LABS: BUN Creatinine Ratio 32.8; Carbon Dioxide 26.9 mmol/L (21.0-32.0); Chloride 103 mmol/L (98-107); Estimated GFR (African America >60 (>=60); Estimated GFR (Non-African Ame 51 (>=60); Glucose 142 mg/dL (74-106); Potassium 3.9 mmol/L (3.5-5.1); Sodium 141 mmol/L (136-145)
== END 2024-04-28 12:25 | disposition home or self-care (01) ==
LOC: PST 12:24
PROVIDERS: PCP Family Medicine; Visit Provider Student in an Organized Health Care Education/Training Program
DX: Z01.810 Encounter for preprocedural cardiovascular examination (principal); Z01.818 Encounter for other preprocedural examination; I83.813 Varicose veins of bilateral lower extremities with pain
CPT/HCPCS: 36415; 80048; G0463

== ENCOUNTER 2024-04-28 13:37 | Outpatient (OUT) | payer MEDICARE, SELFPAY | END 2024-04-28 13:38 | disposition home or self-care (01) | LOC: PST 13:37 | PROVIDERS: PCP Family Medicine; Visit Provider Student in an Organized Health Care Education/Training Program | DX: Z01.818 Encounter for other preprocedural examination (principal); I83.813 Varicose veins of bilateral lower extremities with pain ==

== ENCOUNTER 2024-05-11 11:55 | Day surgery (SDC) | payer MEDICARE, SELFPAY ==
[2024-04-28 13:13] VITALS: BP 128/62; PULSE 54; TEMP 36.4; O2SAT 98; BMI 39.7
[2024-05-11 12:19] VITALS: BP 122/86; PULSE 50; TEMP 36.4; O2SAT 97; BMI 39.7
[2024-05-11] MEDS: LACTATED RINGER'S SOLUTION 1,000 ML 50 ML IV (12:25)
[2024-05-11 12:30] LABS: Glucometer 131 mg/dL (74-106)
[2024-05-11] MEDS: CEFAZOLIN SODIUM/DEXTROSE,ISO 2 GM/50 ML PIGGYBACK IV (13:11)
[2024-05-11] MEDS: POLIDOCANOL 9 ML IV (13:40)
[2024-05-11] MEDS: 0.9 % SODIUM CHLORIDE 500 ML, LIDOCAINE HCL 20 ML, SODIUM BICARBONATE 10 MEQ INJ (13:48)
[2024-05-11] MEDS: 0.9 % SODIUM CHLORIDE 10 ML VIAL INJ (13:48)
--- NOTE | 2024-05-11 13:55 | W.PM.OPNOTE ---
Surgery Operative Note Operative Note Procedure Date: 05/11/24 Time Out Performed: yes Pre-op Diagnosis: Lower extremity varicose veins with pain lipodermatosclerosis and healed venous ulcer Post-op Diagnosis: same as pre-op Procedures performed: 1. Left great saphenous vein radiofrequency ablation #2 Varithena Microfoam injection sclerotherapy of multiple veins in the left lower extremity Anesthesia: MAC Primary Surgeon: Callie Mora Complications: None Estimated blood loss (mL): 5 Findings: Unremarkable operative course 55 cm GSV was treated with radiofrequency ablation and multiple varicose veins below the knee were treated with Varithena Microfoam injection sclerotherapy Specimens: None Drains: None Incision: None Indications for Procedures: This is a pleasant gentleman with bilateral lower extremity extensive varicose veins and pain in lipodermatosclerosis skin discoloration and venous ulcer he has been consistently using compression stockings leg elevation exercise with failure none intervention none measurement measurements measures he is here for radiofrequency ablation and Ibrahima sclerotherapy possible stab Detailed description of Procedure: The patient was taken back to the operating room and placed in the supine position appropriate cardiopulmonary monitors were set anesthesia was induced. The left leg was prepped and draped in usual sterile surgical fashion. The GSV was accessed using Seldinger maneuver just below the knee. Micro access was obtained catheter was placed 2-1/2 cm from the saphenofemoral junction. Tumescent was injected under ultrasound guidance. Frequent 6 radiofrequency ablation sequentially 3 times of the proximal segment followed by one-time every 10 cm. After completion attention was paid to below the knee GSV and other varicose veins were treated with Varithena Microfoam therapy. Total of 8 mL were used. Patient tolerated the procedure very well and compression stockings was placed. Post Operative care instructions: Compression therapy for 24 to 48 hours followed by compression stockings an
[2024-05-11 14:01] VITALS: BP 104/66; PULSE 64; TEMP 36.1; O2SAT 96
[2024-05-11] MEDS: ACETAMINOPHEN 325 MG TABLET 650 MG PO (14:11)
[2024-05-11 14:16] VITALS: BP 129/82; PULSE 65; O2SAT 96
[2024-05-11 14:31] VITALS: BP 124/78; PULSE 66; O2SAT 95
== END 2024-05-11 14:35 | disposition home or self-care (01) ==
PROVIDERS: PCP Family Medicine; Visit Provider Student in an Organized Health Care Education/Training Program
PROC: (CPT 36471; principal; 2024-05-11 13:00)
DX: I83.813 Varicose veins of bilateral lower extremities with pain (principal); G47.33 Obstructive sleep apnea (adult) (pediatric); E78.5 Hyperlipidemia, unspecified; I10 Essential (primary) hypertension; Z86.718 Personal history of other venous thrombosis and embolism; E11.9 Type 2 diabetes mellitus without complications; Z79.84 Long term (current) use of oral hypoglycemic drugs
CPT/HCPCS: 36471; 36475; 36415; 82948; J0690; J2250; J2704

== ENCOUNTER 2024-05-25 10:58 | Day surgery (SDC) | payer MEDICARE, SELFPAY ==
[2024-05-25] VITALS (10 sets, daily range): BP systolic 123–139; BP diastolic 67–89; PULSE 56–66; TEMP 36.3–36.9; O2SAT 92–97; BMI 37.7
[2024-05-25] MEDS: LACTATED RINGER'S SOLUTION 1,000 ML 50 ML IV (11:30)
[2024-05-25 11:32] LABS: Glucometer 138 mg/dL (74-106)
[2024-05-25] MEDS: 0.9 % SODIUM CHLORIDE 500 ML, LIDOCAINE HCL 20 ML, SODIUM BICARBONATE 10 MEQ INJ (12:37)
[2024-05-25] MEDS: POLIDOCANOL 12 ML IV (12:45)
--- NOTE | 2024-05-25 12:59 | P.ON_ITS ---
Surgery Operative Note Operative Note Procedure Date: 05/25/24 Time Out Performed: yes Pre-op Diagnosis: Varicose veins with pain and lipodermatosclerosis Post-op Diagnosis: same as pre-op Procedures performed: Great saphenous vein radiofrequency ablation and sclerotherapy of right lower extremity varicose veins using Varithena Microfoam Anesthesia: MAGALY Primary Surgeon: Callie Mora Complications: None Estimated blood loss (mL): 5 Findings: None unremarkable operative course. GSV ablation from the knee level all the way to the 3 cm from the saphenofemoral junction. Varithena Microfoam injection sclerotherapy of below-knee saphenous vein and other large tributaries Indications for Procedures: This is a pleasant gentleman with bilateral lower extremity varicose veins and pain lipodermatosclerosis and heel ulcer. We treated the left side 2 weeks ago he is here to treat the right side. Detailed description of Procedure: Patient was taken back to the operating room placed in the supine position appropriate cardiopulmonary monitors were set general seizure was induced. After timeout a safety pause the right leg was prepped and draped in usual sterile surgical fashion. Under ultrasound guidance the GSV was accessed just below the knee. 7 Nepali sheath was placed. Catheter was placed about 3 cm from the saphenofemoral junction. 7 cm x 60 [employer] radiofrequency ablation catheter. Tumescent was injected under ultrasound guidance all around the vein. Ablation was done 2 cycles and the first segment and the second segment and 1 cycle and the rest of the segments. Total of 10 cycles. 3.20 minutes of treatment. Comfortable was compressing with no evidence of thrombosis there. Under ultrasound guidance we did administered 8 cc of Varithena Microfoam in the distal GSV measuring 6 mm under ultrasound guidance. 4 more Varithena's were injected and large tributaries and 4 mm tributary. At the end compression therapy was placed and the patient tolerated the procedure very well. Post Operative care instructions: Continue compression therapy leg elevation and exercise. We will get ultra
== END 2024-05-25 14:05 | disposition home or self-care (01) ==
PROVIDERS: PCP Family Medicine; Visit Provider Student in an Organized Health Care Education/Training Program
PROC: (CPT 36470; principal; 2024-05-25 12:00)
DX: I83.813 Varicose veins of bilateral lower extremities with pain (principal); I83.12 Varicose veins of left lower extremity with inflammation; I83.11 Varicose veins of right lower extremity with inflammation; G47.33 Obstructive sleep apnea (adult) (pediatric); E78.5 Hyperlipidemia, unspecified; I10 Essential (primary) hypertension; Z86.718 Personal history of other venous thrombosis and embolism; N40.0 Benign prostatic hyperplasia without lower urinary tract symptoms; E11.9 Type 2 diabetes mellitus without complications; Z79.84 Long term (current) use of oral hypoglycemic drugs; E66.01 Morbid (severe) obesity due to excess calories; Z68.39 Body mass index [BMI] 39.0-39.9, adult
CPT/HCPCS: 36470; 36475; 36415; 82948; J0330; J1100; J2250; J2405; J2704; J3010

== ENCOUNTER 2024-08-31 14:31 | Outpatient (OUT) | payer MEDICARE, SELFPAY ==
--- OUTSIDE RECORDS SUMMARY | 2024-08-31 14:48 | XMS_ITS | CCD ---
Author Organization [facility] Care Team Providers Care Law Clerk Name Role Phone Khoa Bowles Primary [...] Unavailable BEACH ., DR WALLACE Admitting Unavailable ELINA TORRES Consulting Unavailable BEACH ., DR WALLACE Consulting Unavailable HEMEYER ., DR QUINTEROS Primary Care Unavailable BEACH ., DR WALLACE Attending Unavailable BEACH ., DR WALLACE Admitting Unavailable ISAK CORTEZ Consulting Unavailable LISA MCGINNIS Consulting Unavailable SWATI ROE Consulting Unavailable HEMEYER [...] Unavailable BEACH ., DR WALLACE Admitting Unavailable CEDAR, DR TALI Jeffries Consulting Unavailable BEACH ., DR WALLACE Consulting Unavailable HEMEYER ., DR QUINTEROS Primary Care Unavailable BEACH ., DR WALLACE Attending Unavailable NINA ., DR WALLACE Admitting Unavailable MD Khoa Bowles Primary Care Provider MARIZOL Hampton Attending Provider Khoa Bowles MD Primary Care Provider [phone] Jude Beach MD Unavailable Haja HARMON, Preet Tariq Unavailable Olive Hampton Attending Unavailable Olive Hampton Admitting Unavailable Hemeyer, Edsilvana Yanes Primary Care Unavailable LEOLA, MOHAMED F Attending Unavailable HEMEYER, EDSILVANA J Referring Unavailable HEMEYER, EDWARD J Primary Care Unavailable LEOLA, MOHAMED F Attending Unavailable HEMEYER, EDSILVANA J Referring Unavailable HEMEYER, EDWARD J Primary Care Unavailable HEMEYER, EDWARD J Referring Unavailable HEMEYER, EDWARD J Primary Care Unavailable LEOLA, MOHAMED F Attending Unavailable HEMEYER, EDWARD J Referring Unavailable HEMEYER, EDWARD J Primary Care Unavailable LEOLA, MOHAMED F Attending Unavailable LEOLA, MOHAMED F Referring Unavailable HEMEYER, EDWARD J Primary Care Unavailable LEOLA, MOHAMED F Attending Unavailable LEOLA, MOHAMED F Referring Unavailable HEMEYER, EDWARD J Primary Care Unavailable Jude BEACH Attending Unavailable Jude BEACH Attending Unavailable HEMEYER, EDSILVANA Yanes Attending Unavailable PREET ENRIQUE Attending Unavailable HEMEYER, EDSILVANA Yanes Attending Unavailable HEMEYER, EDWARD J Attending Unavailable PREET ENRIQUE Attending Unavailable HEMEYER, KHOA Yanes Attending Unavailable OLIVE HAMPTON Attending Unavailable HEMEYER, KHOA Yanes Attending Unavailable PREET ENRIQUE Attending Unavailable ELINA GUZMÁN Attending Unavailable OLIVE HAMPTON Attending Unavailable Khoa Bowles MD Unavailable Allergies Allergy Classification Reported Allergen(s) Allergy Type Date of Onset Reaction(s) Facility Opioid Agonists (1 source) Meperidine Drug Allergy 1 [facility] (5 sources) Meperidine / Promethazine; Translations: [meperidine-prome thazine] Drug Allergy Unknown (qualifier value) [facility] (13 sources) Meperidine; Translations: [meperidine] Drug Allergy 4 Tremor (finding) [facility] (2 sources) Meperidine Drug Allergy 3 [facility] (2 sources) pioglitazone Drug Allergy 3 [facility] (6 sources) Meperidine Drug Allergy 2 [facility] (6 sources) pioglitazone Drug Allergy 3 Swelling [facility] (1 source) Meperidine Drug Allergy 1 [facility] (1 source) Doxycycline; Translations: [doxycycline] Drug Allergy [facility] Repository Medications Current Medications Medication Drug Class(es) Dates Sig (Normalized) Sig (Original) allopurinol 300 mg oral tablet (12 sources) Xanthine Oxidase Inhibitor Start: 11-09-2018 End: 10-29-2024 take 1 tablet by mouth once daily allopurinol (Zyloprim) 300 MG tablet Indications: Polypharmacy Take 1 tablet (300 mg) by mouth Daily 90 tablet 1 05/02/2024 10/29/2024 Active aspirin 81 mg oral tablet (12 sources) Platelet Aggregation Inhibitor, Nonsteroidal Anti-inflammatory Drug Start: 09-18-2019 take 1 mg by mouth once daily aspirin 81 mg oral tablet mg tab(s), Oral, Daily, Refills(s) 0 Start Date: 09/18/19 Status: Ordered Start: 11-23-2018 take 1 tablet by noemi once daily in the morning Aspirin (Aspirin Low Dose) 81 mg Tablet,Delayed Release (Dr/Ec) Active 81 MG PO Every morning November 23, 2018 9:16am biotin 10 mg oral capsule (8 sources) Start: 11-09-2018 take 26103 ug by mouth twice daily Biotin Active 83130 MCG PO Twice daily November 09, 2018 3:30pm biotin 34520 MCG tablet 1 (one) time each day at the same time. Active cyclobenzaprine hydrochloride 10 mg oral tablet [...] 2021 11:56am dapagliflozin 10 mg oral tablet (6 sources) Sodium-Glucose Cotransporter 2 Inhibitor Start: 05-02-2024 End: 10-29-2024 take 1 tablet by mouth once daily dapagliflozin (Farxiga) 10 MG Indications: Diabetic nephropathy associated with type 2 diabetes mellitus (HCC) (CMS/HCC) Take 1 tablet (10 mg) by mouth Daily 90 tablet 1 05/02/2024 10/29/2024 Active Start: 11-04-2023 End: 02-02-2024 take 1 tablet by mouth in the morning dapagliflozin (Farxiga) 10 MG Indications: Diabetic nephropathy associated with type 2 diabetes mellitus (HCC) (CMS/HCC) Take 1 tablet (10 mg) by mouth in the morning. 90 tablet 0 11/04/2023 02/02/2024 Active doxycycline monohydrate 100 mg oral capsule (12 sources) Tetracycline-class Drug Start: 11-04-2023 End: 10-29-2024 [...] 2018 3:30pm fenofibrate 160 mg oral tablet (6 sources) Peroxisome Proliferator Receptor alpha Agonist Start: 05-02-2024 End: 10-29-2024 take 1 tablet by mouth once daily fenofibrate (Triglide) 160 MG tablet Indications: Mixed hyperlipidemia (CMS/HCC) Take 1 tablet (160 mg) by mouth Daily 90 tablet 1 05/02/2024 10/29/2024 Active Start: 11-04-2023 End: 02-02-2024 take 1 tablet by mouth in the morning fenofibrate (Triglide) 160 MG tablet Indications: Mixed hyperlipidemia (CMS/HCC) Take 1 tablet (160 mg) by mouth in the morning. 90 tablet 0 11/04/2023 02/02/2024 Active ferrous sulfate 325 mg oral tablet (8 sources) Start: 11-09-2018 take 1 tablet by mouth once daily Ferrous Sulfate (Iron (Ferrous Sulfate)) 325 mg (65 mg iron) Tablet Active 325 MG PO Daily November 09, 2018 3:30pm gabapentin 300 mg oral capsule (10 sources) Anti-epilept ic Agent Start: 07-21-2023 End: 10-29-2024 take 1 capsule by mouth in the morning gabapentin (Neurontin) 300 MG capsule Indications: Polyradiculopathy Take 1 capsule (300 mg) by mouth in the morning and 1 capsule (300 mg) before bedtime. 180 capsule 07/31/2024 10/29/2024 Active Start: 11-09-2018 End: 04-03-2021 take 400 mg by mouth three times daily Gabapentin Discontinued 400 MG PO Three times daily November 09, 2018 3:30pm April 03, 2021 11:56am gemfibrozil 600 mg oral tablet (6 sources) Peroxisome Proliferator Receptor alpha Agonist Start: 11-09-2018 take 1 mg by mouth twice daily gemfibrozil 600 mg Tab mg tab(s), Oral, BID, Refills(s) 0 Start Date: 09/18/19 Status: Ordered glipiZIDE er 10 mg 24 hr extended release oral tablet (6 sources) Sulfonylurea Start: 09-16-2020 take 1 mg by mouth once daily glipiZIDE 10 mg ER Tab mg tab(s), Oral, Daily, Refills(s) 0 Start Date: 09/16/20 Status: Ordered Start: 11-09-2018 take 10 mg by mouth twice rocio y Glipizide Active 10 MG PO Twice daily November 09, 2018 3:30pm hydroCHLOROthiazide 25 mg oral tablet (10 sources) Thiazide Diuretic Start: 01-11-2023 End: 10-29-2024 take 1 tablet by mouth in the evening hydroCHLOROthiazide (HYDRODiuril) 25 MG tablet Indications: Essential hypertension (CMS/HCC) Take 1 tablet (25 mg) by mouth in the evening 90 tablet 1 05/02/2024 10/29/2024 Active Start: 11-09-2018 End: 01-07-2023 take 1 tablet by mouth once daily hydrochlorothiazide 25 mg Tab 25 mg = 1 tab(s), Oral, Daily, X 90 day(s), # 90 tab(s), Refills(s) 0, Pharmacy: [facility]/pharmacy #[id number], 185, cm, 12/22/21 12:11:00 EST, Height/Length Dosing, 136.7, kg, 12/22/21 12:11:00 EST, Weight Dosing Start Date: 10/09/22 Stop Date: 01/07/23 Status: Ordered hydroCHLOROthiazide 12.5 mg / losartan potassium 100 mg oral tablet (8 sources) Thiazide Diuretic, Angiotensin 2 Receptor Dean Start: 05-02-2024 End: 10-29-2024 take 1 tablet by mouth once daily losartan-hydroCHLOROthiazide (Hyzaar) 100-12.5 MG tablet Indications: Essential hypertension (CMS/HCC) Take 1 tablet by mouth Daily 90 tablet 1 05/02/2024 10/29/2024 Active Start: 11-04-2023 End: 02-02-2024 take 1 tablet [...] ml insulin glargine 100 unt/ml pen injector (6 sources) Insulin Analog Start: 06-14-2024 insulin glargi ne (Basaglar KwikPen) 100 UNIT/ML pen Indications: Type 2 diabetes mellitus with hyperglycemia, without long-term current use of insulin (CMS/HCC) Inject bid, sliding blood glucose scale with the coverage: 300, 20 units 3 mL 1 06/14/2024 Active Start: 11-23-2023 insulin glargi ne (Basaglar KwikPen) 100 UNIT/ML pen Indications: Type 2 diabetes mellitus with hyperglycemia, without long-term current use of insulin (CMS/HCC) Inject before supper, sliding blood glucose scale; 250=8u Strength: 100 UNIT/ML 3 mL 0 11/23/2023 Active lutein 20 mg oral capsule (8 sources) Start: 11-09-2018 take 20 mg by mouth once daily Lutein Active 20 MG PO Daily November 09, 2018 3:30pm Lutein 20 MG tab let 1 (one) time each day at the same time. Active metFORMIN hydrochloride 1000 mg oral tablet (8 sources) Biguanide Start: 05-02-2024 End: 10-29-2024 take 1 tablet by mouth in the morning metFORMIN (Glucophage) 1000 MG tablet Indications: Type 2 diabetes mellitus with hyperglycemia, without long-term current use of insulin (CMS/HCC) Take 1 tablet (1,000 mg) by mouth in the morning and 1 tablet (1,000 mg) in the evening. Take with meals. 180 tablet 1 05/02/2024 10/29/2024 Active Start: 11-04-2023 End: 02-02-2024 take 1 tablet [...] 11-09-2018 take 500 mg by mouth twice daily Metformin Active 500 MG PO Twice daily November 09, 2018 3:30pm metoprolol tartrate 50 mg oral tablet (12 sources) beta-Adrenergic Dean Start: 05-02-2024 End: 10-29-2024 take 1 tablet by mouth in the morning metoprolol tartrate (Lopressor) 50 MG tablet Indications: Essential hypertension (CMS/HCC) Take 1 tablet (50 mg) by mouth in the morning and 1 tablet (50 mg) before bedtime. 180 tablet 1 05/02/2024 10/29/2024 Active Start: 11-09-2018 End: 02-02-2024 take 1 tablet by mouth in the morning metoprolol tartrate (Lopressor) 50 MG tablet Indications: Essential hypertension (CMS/HCC) Take 1 tablet (50 mg) by mouth in the morning and 1 tablet (50 mg) before bedtime. 180 tablet 0 11/04/2023 02/02/2024 Active Multivitamin preparation (2 sources) Start: 04-03-2021 take [...] 1 - 2 TAB PO Q6H 60 November 24, 2018 April 03, 2021 11:57am [...] days sodium bicarbonate 650 mg oral tablet (12 sources) Start: 11-11-2023 take 3 tablets by mouth twice daily sodium bicarbonate 650 mg Tab 1,950 mg = 3 tab(s), Oral, BID, # 180 tab(s), Refills(s) 11, Pharmacy: [facility]/pharmacy #[id number], 185, cm, 07/21/23 13:37:00 EDT, Height/Length Dosing, 138.2, kg, 07/21/23 13:37:00 EDT, Weight Dosing Start Date: 11/11/23 Status: Ordered Start: 11-08-2022 take 3 tablets by mo uth twice daily sodium bicarbonate 650 mg Tab 1,950 mg = 3 tab(s), Oral, BID, # 180 tab(s), Refills(s) 11, Pharmacy: [facility]/pharmacy #[id number], 185, cm, 12/22/21 12:11:00 EST, Height/Length Dosing, 136.7, kg, 12/22/21 12:11:00 EST, Weight Dosing Start Date: 11/08/22 Status: Ordered Start: 11-05-2021 End: 10-31-2022 take 3 tablets by mouth twice daily sodium bicarbonate 650 mg Tab 1,950 mg = 3 tab(s), Oral, BID, X 90 day(s), # 540 tab(s), Refills(s) 3, [id number] 185, cm, 09/15/21 11:40:00 EST, Height/Length Dosing, 137, kg, 09/15/21 11:40:00 EST, Weight Dosing Start Date: 11/05/21 Stop Date: 10/31/22 Status: Ordered Start: 11-09-2018 take 1950 mg by mout h twice daily Sodium Bicarbonate Active 1950 MG PO Twice daily November 09, 2018 3:30pm spironolactone 25 mg oral tablet (6 sources) Aldosterone Antagonist Start: 05-02-2024 spironolactone (Aldactone) 25 MG tablet Indications: Lymphedema of both lower extremities 2 tablets in Am and 1 tablet in PM 270 tablet 1 05/02/2024 Active Start: 11-04-2023 spironolactone (Aldactone) 25 MG tablet Indications: Lymphedema of both lower extremities 2 tablets in Am and 1 tablet in PM 270 tablet 0 11/04/2023 Active tamsulosin hydrochloride 0.4 mg oral capsule (12 sources) alpha-Adrenergic Dean Start: 01-12-2024 take 1 capsule by mouth once daily tamsulosin 0.4 mg Cap 0.4 mg = 1 cap(s), Oral, Daily, # 90 cap(s), Refills(s) 3, Pharmacy: [facility]/pharmacy #[id number], 185, cm, 07/21/23 13:37:00 EDT, Height/Length Dosing, 138.2, kg, 07/21/23 13:37:00 EDT, Weight Dosing Start Date: 01/12/24 Status: Ordered Start: 11-09-2018 take 1 capsule by mo uth once daily tamsulosin 0.4 mg Cap 0.4 mg = 1 cap(s), Oral, Daily, # 90 cap(s), Refills(s) 3, Pharmacy: [facility]/pharmacy #[id number], 185, cm, 12/22/21 12:11:00 EST, Height/Length Dosing, 136.7, kg, 12/22/21 12:11:00 EST, Weight Dosing Start Date: 12/30/22 Status: Ordered take 1 capsule by [facility] every twenty-four hours in the evening Flomax 0.4 MG 24 hr capsule Take 0.4 mg by mouth in the evening. Active Completed/Discontinued Medications Medication Drug Class(es) Dates [...] foot] 12-09-2023 Episodic Chronic ulcer of skin (12 sources) Non-pressure chronic ulcer of other part of left foot limited to breakdown of skin; Translations: [Ulcer of other part of foot] Onset: 1 Resolved: 4 04-12-2023 Chronic Coagulation and hemorrhagic disorders (6 sources) Thrombocytopenic disorder; Translations: [Thrombocytopenia, unspecified] Onset: 3 04-12-2023 Chronic Conduction disorders (6 sources) Right bundle branch block; Translations: [Unspecified right bundle-branch block] Onset: 3 04-12-2023 Chronic Diabetes mellitus with complications (20 sources) Type 2 diabetes mellitus with diabetic polyneuropathy; Translations: [Type 2 diabetes mellitus with other diabetic neurological complication] Onset: 6 Resolved: 4 Chronic Disorders of lipid metabolism (12 sources) Hyperlipidemia; Translations: [Hyperlipidemia, unspecified] Onset: 2 09-18-2019 Chronic Diverticulosis and diverticulitis (6 sources) Diverticulosis of colon; Translations: [Diverticulosis of large intestine without perforation or abscess without bleeding] Onset: 5 04-12-2023 Chronic Essential hypertension (15 sources) Hypertensive disorder; Translations: [Essential (primary) hypertension] Onset: 2 09-18-2019 Chronic Hyperplasia of prostate (20 sources) Benign prostatic hypertrophy with outflow obstruction; Translations: [Benign prostatic hyperplasia with lower urinary tract symptoms] Onset: 6 Chronic Hypertension with complications and secondary hypertension (6 sources) Hypertensive left ventricular hypertrophy; Translations: [Hypertensive heart disease without heart failure] Onset: 3 04-12-2023 Chronic Malaise and fatigue (10 sources) Asthenia; Translations: [Weakness] 04-11-2024 Episodic Mycoses (1 source) Onychomycosis; Translations: [Tinea unguium] 12-09-2023 Episodic Other aftercare (1 source) 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; Translations: [LIFE SKILLS COORDINATOR CURRNT USE ANTICOAGULANTS] Onset: 3 Episodic Other aftercare (1 source) shelter (current) use of oral hypoglycemic drugs; Translations: [LIFE SKILLS COORDINATOR USE ORAL HYPOGLYCEMIC DX] Onset: 3 Episodic Other aftercare (1 source) Other group home (current) drug therapy; Translations: [OTH RESIDENTIAL CURRENT DRUG THERAPY] Onset: 3 Episodic Other connective tissue disease (5 sources) Fibromyalgia; Translations: [Fibromyalgia] 04-11-2024 Episodic Other connective tissue disease (5 sources) Myalgia caused by statin; Translations: [Myalgia, unspecified site] Onset: 4 06-07-2024 Episodic Other diseases of veins and lymphatics (6 sources) Lymphedema of bilateral lower limbs; Translations: [Lymphedema, not elsewhere classified] Onset: 3 04-12-2023 Chronic Other lower respiratory disease (7 sources) Snoring; Translations: [Snoring] Onset: 4 07-26-2024 Episodic Other nervous system disorders (6 sources) Difficulty walking; Translations: [Difficulty in walking, not elsewhere classified] Onset: 3 04-12-2023 Chronic Other nervous system disorders (7 sources) Polyneuropathy; Translations: [Polyneuropathy, unspecified] 04-11-2024 Chronic Other nutritional; endocrine; and metabolic disorders (1 source) Morbid obesity; Translations: [Morbid (severe) obesity due to excess calories] Onset: 3 04-12-2023 Chronic Other nutritional; endocrine; and metabolic disorders (7 sources) Body mass index 30+ - obesity; Translations: [Obesity, unspecified] Onset: 4 07-26-2024 Chronic Other skin disorders (1 source) Acquired keratoderma; Translations: [Acquired keratosis [keratoderma] palmaris et plantaris] 12-09-2023 Episodic Peripheral and visceral atherosclerosis (5 sources) Peripheral vascular disease; Translations: [Peripheral vascular disease, unspecified] 04-11-2024 Chronic Residual codes; unclassified (6 sources) Dependence on continuous positive airway pressure ventilation; Translations: [Dependence on other enabling machines and devices] Onset: 3 04-12-2023 Chronic Residual codes; unclassified (8 sources) Obstructive sleep apnea syndrome; Translations: [Obstructive sleep apnea (adult) (pediatric)] Onset: 3 04-12-2023 Chronic Residual codes; unclassified (12 sources) Hypersomnia; Translations: [Hypersomnia, unspecified] Onset: 4 07-26-2024 Chronic Residual codes; unclassified (2 sources) Family history of cancer; Translations: [Family history of malignant neoplasm of prostate] Onset: Episodic Residual codes; unclassified (1 source) Family history of malignant neoplasm of prostate; Translations: [FAMILY HX MALIG NEOPLASM PROSTATE] Onset: 3 Episodic Residual codes; unclassified (1 source) Pain, unspecified; Translations: [Pain, unspecified] Onset: 4 Episodic Residual codes; unclassified (1 source) Edema Onset: 4 Episodic Retinal detachments; defects; vascular occlusion; and retinopathy (12 sources) Bilateral age-related nonexudative macular degeneration; Translations: [Nonexudative age-related macular degeneration, bilateral, stage unspecified] Onset: 6 04-12-2023 Chronic Spondylosis; intervertebral disc disorders; other back problems (20 sources) Spondylosis; Translations: [Other spondylosis with radiculopathy, thoracolumbar region] Onset: 0 04-12-2023 Chronic Spondylosis; intervertebral disc disorders; other back problems (20 sources) Spinal stenosis of lumbar region; Translations: [Spinal stenosis, lumbar region with neurogenic claudication] Onset: 3 04-17-2021 Episodic Unclassified (1 source) Hospital Follow-up Onset: 4 Varicose veins of lower extremity (2 sources) Varicose veins of bilateral lower extremities with pain; Translations: [Varicose veins of bilateral lower extremities with pain] Onset: 4 Episodic Past or Other Problems Problem Classification Problem Date Documented Da te Episodic/Chronic Abdominal pain (6 sources) Flank pain; Translations: [Unspecified abdominal pain] Onset: 02-01-2014 07-28-2023 Episodic Calculus of urinary tract (20 sources) Kidney stone; Translations: [Calculus of kidney] Onset: 09-21-2022 Episodic Deficiency and other anemia (6 sources) Iron deficiency anemia secondary to inadequate dietary iron intake; Translations: [Other iron deficiency anemias] Onset: 04-12-2023 04-12-2023 Episodic Diabetes mellitus without complication (11 sources) Diabetes mellitus; Translations: [Type 2 diabetes mellitus without complications] Onset: 01-20-2023 Resolved: 11-04-2023 09-18-2019 Chronic Genitourinary symptoms and ill-defined conditions (20 sources) Nocturia; Translations: [Nocturia] Onset: 09-21-2022 Resolved: 11-04-2023 Episodic Heart valve disorders (6 sources) Heart murmur; Translations: [Cardiac murmur, unspecified] Onset: 04-12-2023 04-12-2023 Episodic Mood disorders (5 sources) Mood disorders Onset: 04-03-2024 04-03-2024 Other acquired deformities (6 sources) Lumbar spondylolisthesis; Translations: [Spondylolisthesis, lumbar region] Onset: 04-12-2023 04-12-2023 Episodic Other aftercare (6 sources) Polypharmacy ; Translations: [Other group home (current) drug therapy] Onset: 08-05-2021 07-28-2023 Episodic Other connective tissue disease (6 sources) H/O: arthrodesis; Translations: [Arthrodesis status] Onset: 10-02-2020 11-04-2023 Episodic Other diseases of veins and lymphatics (6 sources) Lymphedema; Translations: [Lymphedema, not elsewhere classified] Onset: 07-19-2016 Resolved: 11-04-2023 11-04-2023 Chronic Other diseases of veins and lymphatics (1 source) Stasis dermatitis; Translations: [Venous insufficiency (chronic) (peripheral)] Onset: 04-12-2023 04-12-2023 Episodic Other diseases of veins and lymphatics (6 sources) Peripheral venous insufficiency; Translations: [Venous insufficiency (chronic) (peripheral)] Onset: 08-05-2021 07-28-2023 Episodic Other diseases of veins and lymphatics (5 sources) Disorder of vein of lower extremity; Translations: [Venous insufficiency (chronic) (peripheral)] Onset: 04-12-2023 04-12-2023 Episodic Other nutritional; endocrine; and metabolic disorders (6 sources) Body mass index 40+ - severely obese; Translations: [Body mass index (BMI) 40.0-44.9, adult] Onset: 02-01-2014 Resolved: 11-04-2023 11-04-2023 Chronic Other nutritional; endocrine; and metabolic disorders (6 sources) Obese class II; Translations: [Obesity, unspecified] Onset: 10-02-2020 Resolved: 11-04-2023 11-04-2023 Chronic Other nutritional; endocrine; and metabolic disorders (5 sources) Obesity; Translations: [Obesity, unspecified] Onset: 04-12-2023 Resolved: 04-24-2024 04-24-2024 Chronic Other nutritional; endocrine; and metabolic disorders (1 source) Hyperuricemia without signs of inflammatory arthritis and tophaceous disease; Translations: [HU W/O SIGNS IA AND TOPHACEOUS DZ] Onset: 05-08-2022 Episodic Other nutritional; endocrine; and metabolic disorders (6 sources) Hyperuricemia; Translations: [Hyperuricemia without signs of inflammatory arthritis and tophaceous disease] Onset: 04-12-2023 04-12-2023 Episodic Other screening for suspected conditions (not mental disorders or infectious disease) (14 sources) Raised prostate specific antigen; Translations: [Elevated prostate specific antigen [PSA]] Onset: 09-21-2022 Episodic Phlebitis; thrombophlebitis and thromboembolism (11 sources) Deep venous thrombosis of lower extremity; Translations: [Personal history of other venous thrombosis and embolism] Onset: 01-20-2023 09-18-2019 Episodic Residual codes; unclassified (10 sources) Family history of prostate cancer; Translations: [Family history of malignant neoplasm of prostate] Onset: 07-28-2023 Resolved: 11-04-2023 12-22-2021 Episodic Skin and subcutaneous tissue infections (6 sources) Cellulitis; Translations: [Cellulitis, unspecified] Onset: 04-12-2023 04-12-2023 Episodic Results Test Name Value Interpretation Reference Range Facility XR pre/post mri xrayon 08-05 XR pre/post mri xray [facility] [address] MRI Report Signed with Addenda Patient: Manuel Balderas MR#: [id number] : 1950 Acct:[id number] Age/Sex: 73 / M ADM Date: 08/05/23 Loc: [facility] Room: Type: [facility] Attending Dr: Olive Hampton PA-C Copies to: Olive Hampton PA-C Ordering Provider: Olive Hampton PA-C Date of Service: 08/05/23 MR/MR lumbar spine wo con: M54.10 ([id number]) XR/XR pre/post mri xray: LUMBAR MRI ADDENDUM 1 Addendum for [facility] technical architect error: L1-L2: Diffuse broad-based disc bulge is present with ligamentum flavum hypertrophy and facet joint degenerative changes causing moderate canal and bilateral neural foraminal stenosis. Impression dictated by: Rickie Cornejo Jr., D.OSiria09/21/2023 12:23 PM Dictation Location: [place] [address] Addendum Dictated By: Rickie Cornejo Jr, DO Addendum Signed By: 09/21/23 1223 Addendum Cosigned By: DD/ TD/TT: 09/21/23 MRI [...] Cornejo Jr., D.OSiria08/05/2023 3:00 PM Dictation Location: [id number] Transcribed By: [facility] 08/05/23 1500 Dictated By: Rickie Cornejo Jr, DO 08/05/23 1454 Signed By: 08/05/23 1500 Normal [facility] [place] 07-30-2023 Lab Reports [id number] Normal [facility] CITRATE URINE 24HRon 023 Citric Acid, U, 24hr 1042 mg/24 hr Normal 320-1240 [facility] Comment on above: Result Comment: This test was developed and its performance characteristics determined by [facility]. It has not been cleared or approved by the Food and Drug Administration. Performed By: #### C BC #### [facility] [address] [address] [address] Cleveland Snowden Citric Acid, Urine 731 mg/L Normal Undefined [facility] Comment on above: Performed By: #### C BC #### [facility] [address] [address] [address] Cleveland Snowden OXALATE 24HR URINEon 023 Oxalates, Urine 19 mg/L Normal Undefined [facility] Comment on above: Performed By: #### C BC #### [facility] [address] [address] [address] Cleveland Snowden Oxalates, Urine 24hr 27 mg/24 hr Normal 7-44 [facility] Comment on above: Performed By: #### C BC #### [facility] [address] [address] [address] Cleveland Snowden MAGNESIUM 24HR URINEon 02-05 Magnesium 24hr Urine 82.7 mg/24 hr Normal 12.0-293.0 [facility] Comment on above: Performed By: #### C BC #### [facility] [address] [address] [address] Cleveland Snowden Magnesium UR 5.8 mg/dL Normal Not Estab. [facility] Comment on above: Performed By: #### C BC #### [facility] [address] [address] [address] Cleveland Snowden PHOSPHORUS 24HR URINEon Phosphorus, Urine 59.7 mg/dL Normal Not Estab. [facility] Comment on above: Performed By: #### P T, PTT #### [facility] [address] [place] [address] Dr. Cleveland Snowden Phosphorus, Urine 24hr 851 mg/24 hr Normal 390-1425 [facility] Comment on above: Performed By: #### P T, PTT #### [facility] [address] [place] [address] Dr. Cleveland Snowden PTH INTACTon 02-05-2023 PTH, Intact 18 pg/mL Normal 15-65 [facility] Comment on above: Performed By: #### P THINT #### [facility] [address] [place] [address] Dr. Cleveland Snowden URIC ACID 24 HR URINEon Uric Acid, Urine 36.4 mg/dL Normal Not Estab. [facility] Comment on above: Performed By: #### P T, PTT #### [facility] [address] [place] [address] Dr. Cleveland Snowden Uric Acid, Urine 24hr 518.7 mg/24 hr Normal 136.1-771. 1 [facility] Comment on above: Performed By: #### P T, PTT #### [facility] [address] [place] [address] Dr. Cleveland Snowden BUNon 02-04-2023 Urea nitrogen [Mass/Vol] 22.0 mg/dL Critically high 7.0-18.0 [facility] Comment on above: Performed By: #### C BC #### [facility] [address] [place] [address] Dr. Cleveland Snowden CALCIUMon 02-04-2023 Calcium [Mass/Vol] 9.7 mg/dL Normal 8.5-10.1 [facility] Comment on above: Performed By: #### C BC #### [facility] [address] [place] [address] Dr. Cleveland Snowden CALCIUM 24 HR URINEon 2022 CALC, 24 HR UR 84.1 mg/24 hr Critically low 100.0-300.0 [facility] Comment on above: Performed By: #### C [id number] #### [facility] [address] [place] [address] Dr. Cleveland Snowden UR CALCIUM 5.9 mg/dL Normal 5.1-21.0 [facility] Comment on above: Performed By: #### C [id number] #### [facility] [address] [place] [address] Dr. Cleveland Snowden UR TOT VOL 1425 ml/24 HR Normal [facility] Comment on above: Performed By: #### C [id number] #### [facility] [address] [place] [address] Dr. Cleveland Snowden Performed By: #### C REA24U, NA24U #### [facility] [address] [place] [address] Dr. Cleveland Snowden Performed By: #### P T, PTT #### [facility] [address] [place] [address] Dr. Cleveland Snowden CHLORIDEon 02-04-2023 Chloride [Moles/Vol] 107 mmol/L Normal 98-107 [facility] Comment on above: Performed By: #### C BC #### [facility] [address] [place] [address] Dr. Cleveland Snowden CO2on 02-04-2023 CO2 [Moles/Vol] 33.7 mmol/L Critically high 21.0-32.0 [facility] Comment on above: Performed By: #### A 1C #### [facility] [address] [place] [address] Dr. Cleveland Snowden CREA 24 HR URINEon 04-06-202 3 CREA, 24 HR UR 1115.21 mg/24 hr Normal 1,000.00- 2,000 .00 [facility] Comment on above: Performed By: #### P T, PTT #### [facility] [address] [place] [address] Dr. Cleveland Snowden URINE CREAT 78.26 mg/dL Normal 20.00-300.00 [facility] Comment on above: Performed By: #### P T, PTT #### [facility] [address] [place] [address] Dr. Cleveland Snowden CREATININEon 02-04-2023 Creatinine [Mass/Vol] 0.91 mg/dL Normal 0.70-1.30 [facility] Comment on above: Performed By: #### A 1C #### [facility] [address] [place] [address] Dr. Cleveland Snowden EGFR-AF EGYPTIAN >60 Normal >=60 [facility] Comment on above: Performed By: #### A 1C #### [facility] [address] [place] [address] Dr. Cleveland Snowden EGFR-NON AF EGYPTIAN >60 Normal >=60 [facility] Comment on above: Performed By: #### A 1C #### [facility] [address] [place] [address] Dr. Cleveland Snowden NAon 02-04-2023 Sodium [Moles/Vol] 144 mmol/L Normal 136-145 [facility] Comment on above: Performed By: #### C BC #### [facility] [address] [place] [address] Dr. Cleveland Snowden POTASSIUMon 02-04-2023 Potassium [Moles/Vol] 4.1 mmol/L Normal 3.5-5.1 [facility] Comment on above: Performed By: #### A 1C #### [facility] [address] [place] [address] Dr. Cleveland Snowden SODIUM 24 HR URINEon 023 NA, 24 HR UR 221 mmol/24 hr Critically high 40-220 [facility] Comment on above: Performed By: #### C [id number], NA24U #### [facility] [address] [place] [address] Dr. Cleveland Snowden Sodium (U) [Moles/Vol] 155 mmol/L Critically high 30-90 [facility] Comment on above: Performed By: #### C REA24U, NA24U #### [facility] [address] [place] [address] Dr. Cleveland Snowden URIC ACID SERUMon 02-04-2023 Urate [Mass/Vol] 4.3 mg/dL Normal 3.5-7.2 [facility] Comment on above: Performed By: #### C BC #### [facility] [address] [place] [address] Dr. Cleveland Snowden POINT OF CARE GLUCOSEon 12-30 Glucose [Mass/Vol] 237 mg/dL Critically high 74-106 [facility] Comment on above: Performed By: #### P T, PTT #### [facility] [address] [place] [address] Dr. Cleveland Snowden XR KUB 1 VIEWon [...] by: ISAK CORTEZ Date: 2023-01-14 08:37 Normal [facility] CBC AUTO DIFFon 01-08-2023 BASO # 0.0 103/ul Normal 0.0-0.1 [facility] Comment on above: Performed By: #### C BC #### [facility] [address] [place] [address] Dr. Cleveland Snowden Basophils/100 WBC (Bld) 0.4 % Normal 0.2-2.0 [facility] Comment on above: Performed By: #### C BC #### [facility] [address] [address] [address] Cleveland Snowden EO # 0.2 103/ul Normal 0.0-0.7 [facility] Comment on above: Performed By: #### C BC #### [facility] [address] [place] [address] Dr. Cleveland Snowden Eosinophils/100 WBC (Bld) 4.4 % Normal 0.9-7.0 [facility] Comment on above: Performed By: #### C BC #### [facility] [address] [place] [address] Dr. Cleveland Snowden Erythrocyte distribution width (RBC) [Ratio] 14.8 % Normal 11.0-15.0 [facility] Comment on above: Performed By: #### C BC #### [facility] [address] [place] [address] Dr. Cleveland Snowden Hematocrit (Bld) [Volume fraction] 35.7 % Critically low 42.0-54.0 [facility] Comment on above: Performed By: #### C BC #### [facility] [address] [place] [address] Dr. Cleveland Snowden Hemoglobin (Bld) [Mass/Vol] 12.0 g/dL Critically low 14.0-18.0 [facility] Comment on above: Performed By: #### C BC #### [facility] [address] [place] [address] Dr. Cleveland Snowden IG # 0.03 10e3/ul Normal 0.00-0.03 [facility] Comment on above: Performed By: #### C BC #### [facility] [address] [place] [address] Dr. Cleveland Snowden IG % 0.6 % Critically high 0.0-0.5 [facility] Comment on above: Performed By: #### C BC #### [facility] [address] [place] [address] Dr. Cleveland Snowden LYMPH # 0.7 103/ul Critically low 1.2-3.8 [facility] Comment on above: Performed By: #### C BC #### [facility] [address] [place] [address] Dr. Cleveland Snowden Lymphocytes/100 WBC (Bld) 14.4 % Critically low 20.5-60.0 [facility] Comment on above: Performed By: #### C BC #### [facility] [address] [place] [address] Dr. Cleveland Snowden MANUAL DIFF REQ NO Normal [facility] Comment on above: Performed By: #### C BC #### [facility] [address] [place] [address] Dr. Cleveland Snowden MCH (RBC) [Entitic mass] 31.1 pg Normal 25.9-34.0 [facility] Comment on above: Performed By: #### C BC #### [facility] [address] [place] [address] Dr. Cleveland Snowden MCHC (RBC) [Mass/Vol] 33.6 g/dL Normal 29.9-35.2 [facility] Comment on above: Performed By: #### C BC #### [facility] [address] [place] [address] Dr. Cleveland Snowden MCV (RBC) [Entitic vol] 92.5 fL Normal 80.0-94.0 [facility] Comment on above: Performed By: #### C BC #### [facility] [address] [place] [address] Dr. Cleveland Snowden MONO # 0.5 103/ul Normal 0.3-0.8 [facility] Comment on above: Performed By: #### C BC #### [facility] [address] [place] [address] Dr. Cleveland Snowden Monocytes/100 WBC (Bld) 11.0 % Normal 1.7-12.0 [facility] Comment on above: Performed By: #### C BC #### [facility] [address] [place] [address] Dr. Cleveland Snowden NEUT # 3.3 103/ul Normal 1.4-6.5 [facility] Comment on above: Performed By: #### C BC #### [facility] [address] [place] [address] Dr. Cleveland Snowden Neutrophils/100 WBC (Bld) 69.2 % Normal 43.0-75.0 [facility] Comment on above: Performed By: #### C BC #### [facility] [address] [place] [address] Dr. Cleveland Snowden Platelet mean volume (Bld) [Entitic vol] 10.0 fL Normal 9.5-13.5 [facility] Comment on above: Performed By: #### C BC #### [facility] [address] [place] [address] Dr. Cleveland Snowden PLT 105 103/ul Critically low 150-450 [facility] Comment on above: Performed By: #### C BC #### [facility] [address] [place] [address] Dr. Cleveland Snowden RBC 3.86 106/ul Critically low 4.70-6.[address] [facility] Comment on above: Performed By: #### C BC #### [facility] [address] [place] [address] Dr. Cleveland Snowden WBC 4.8 103/ul Normal 4.0-11.0 [facility] Comment on above: Performed By: #### C BC #### [facility] [address] [place] [address] Dr. Cleveland Snowden PROF CHEM 8 (BAS METB)on Anion gap [Moles/Vol] 12.7 mmol/L Normal [facility] Comment on above: Performed By: #### C BC #### [facility] [address] [place] [address] Dr. Cleveland Snowden Calcium [Mass/Vol] 9.6 mg/dL Normal 8.5-10.1 [facility] Comment on above: Performed By: #### C BC #### [facility] [address] [place] [address] Dr. Cleveland Snowden Chloride [Moles/Vol] 107 mmol/L Normal 98-107 [facility] Comment on above: Performed By: #### C BC #### [facility] [address] [place] [address] Dr. Cleveland Snowden CO2 [Moles/Vol] 29.0 mmol/L Normal 21.0-32.0 [facility] Comment on above: Performed By: #### C BC #### [facility] [address] [address] [address] Cleveland Snowden Creatinine [Mass/Vol] 0.76 mg/dL Normal 0.70-1.30 [facility] Comment on above: Performed By: #### C BC #### [facility] [address] [address] [address] Cleveland Snowden EGFR-AF EGYPTIAN >60 Normal >=60 [facility] Comment on above: Performed By: #### C BC #### [facility] [address] [place] [address] Dr. Cleveland Snowden EGFR-NON AF EGYPTIAN >60 Normal >=60 [facility] Comment on above: Performed By: #### C BC #### [facility] [address] [place] [address] Dr. Cleveland Snowden Glucose [Mass/Vol] 127 mg/dL Critically high 74-106 [facility] Comment on above: Performed By: #### C BC #### [facility] [address] [address] [address] Cleveland Snowden Potassium [Moles/Vol] 3.7 mmol/L Normal 3.5-5.1 [facility] Comment on above: Performed By: #### C BC #### [facility] [address] [place] [address] Dr. Cleveland Snowden Sodium [Moles/Vol] 145 mmol/L Normal 136-145 [facility] Comment on above: Performed By: #### C BC #### [facility] [address] [address] [address] Cleveland Snowden Urea nitrogen [Mass/Vol] 21.0 mg/dL Critically high 7.0-18.0 [facility] Comment on above: Performed By: #### C BC #### [facility] [address] [place] [address] Dr. Cleveland Snowden Urea nitrogen/Creatinine [Mass ratio] 27.6 mg/mg Normal [facility] Comment on above: Performed By: #### C BC #### [facility] [address] [place] [address] Dr. Cleveland Snowden PROTIMEon 01-08-2023 INR Coag (PPP) [Relative time] 1.04 {INR} Normal [facility] Comment on above: Performed By: #### P T, PTT #### [facility] [address] [place] [address] Dr. Cleveland Snowden INR GUIDELINES SEE BELOW Normal [facility] Comment on above: Result Comment: ASHTYN RED INR: 2.0 - 3.0 CONDITIONS NOT LISTED BELOW 2.5 - 3.5 FOR PROSTHETIC HEART VALVE REPLACEMENT 2.5 - 3.5 RECURRENT THROMBOSIS Performed By: #### P T, PTT #### [facility] [address] [place] [address] Dr. Cleveland Snowden PT Coag (PPP) [Time] 11.0 s Normal 9.0-11.6 [facility] Comment on above: Performed By: #### P T, PTT #### [facility] [address] [place] [address] Dr. Cleveland Snowden PTTon 01-08-2023 aPTT Coag (Bld) [Time] 29.6 s Normal 22.3-36.2 [facility] Comment on above: Performed By: #### P T, PTT #### [facility] [address] [place] [address] Dr. Cleveland Snowden XR KUB 1 VIEWon 01-01-2023 XR KUB [...] by: TALI ISRAEL Date: 2023-01-01 16:46 Normal [facility] GLYCOHEMOGLOBIN A1Con 2022 ADA RECOMMENDATION SEE BELOW Normal [facility] Comment on above: Result Comment: ADA RECOMMENDED LIMIT 4.0 - 6.0 ADA THERAPEUTIC TARGET < 7.0 ACTION SUGGESTED > 7.0 Performed By: #### A 1C #### [facility] [address] [address] [address] Cleveland Snowden Glucose [Mass/Vol] 126 mg/dL Normal [facility] Comment on above: Performed By: #### A 1C #### [facility] [address] [address] [address] Cleveland Snowden HbA1c (Bld) [Mass fraction] 6.0 % Normal 4.5-6.2 [facility] Comment on above: Performed By: #### A 1C #### [facility] [address] [address] [address] Cleveland Snowden XR KUB 1 VIEWon 09-09-2022 XR KUB [...] by: TALI ISRAEL Date: 2022-09-09 15:01 Normal [facility] GLYCOHEMOGLOBIN A1Con 2021 ADA RECOMMENDATION SEE BELOW Normal [facility] Comment on above: Result Comment: ADA RECOMMENDED LIMIT 4.0 - 6.0 ADA THERAPEUTIC TARGET < 7.0 ACTION SUGGESTED > 7.0 Performed By: #### A 1C #### [facility] [address] [address] [address] Cleveland Snowden Glucose [Mass/Vol] 131 mg/dL Normal [facility] Comment on above: Performed By: #### A 1C #### [facility] [address] [place] [address] Dr. Cleveland Snowden HbA1c (Bld) [Mass fraction] 6.2 % Normal 4.5-6.2 [facility] Comment on above: Performed By: #### A 1C #### [facility] [address] [address] [address] Cleveland Snowden LIPID PROFILEon 08-06-2022 CHOL-HDL RATIO NORM SEE BELOW Normal [facility] Comment on above: Result Comment: 3.3 - 4.4 LOW RISK 4.4 - 7.1 AVERAGE RISK 7.1 - 11.0 MODERATE RISK >11.0 HIGH RISK Performed By: #### A 1C #### [facility] [address] [address] [address] Cleveland Snowden Cholesterol [Mass/Vol] 108 mg/dL Normal <=200 [facility] Comment on above: Performed By: #### A 1C #### [facility] [address] [address] [address] Cleveland Snowden Cholesterol in HDL [Mass/Vol] 36 mg/dL Critically low 40-60 [facility] Comment on above: Performed By: #### A 1C #### [facility] [address] [address] [address] Cleveland Snowden Cholesterol in LDL [Mass/Vol] 45.0 mg/dL Normal [facility] Comment on above: Performed By: #### A 1C #### [facility] [address] [address] [address] Cleveland Snowden Cholesterol.total/Cho lesterol in HDL [Mass ratio] 3.0 {ratio} Normal [facility] Comment on above: Performed By: #### A 1C #### [facility] [address] [address] [address] Cleveland Snowden HDL NORMAL > or = 60 mg/dl - LOW CARDIOVASCULAR RISK <40 mg/dl - HIGH CARDIOVASCULAR RISK Normal [facility] Comment on above: Performed By: #### A 1C #### [facility] [address] [address] [address] Cleveland Snowden LDL CALC NORMAL SEE BELOW Normal [facility] Comment on above: Result Comment: <100 mg/dl OPTIMAL 100 - 129 mg/dl NEAR OR ABOVE OPTIMAL 130 - 159 mg/dl BORDERLINE HIGH 160 - 189 mg/dl HIGH >190 mg/dl VERY HIGH Performed By: #### A 1C #### [facility] [address] [address] [address] Cleveland Snowden Triglyceride [Mass/Vol] 135 mg/dL Normal <=150 [facility] Comment on above: Performed By: #### A 1C #### [facility] [address] [address] [address] Cleveland Snowden VLDL CALC 27.0 mg/dL Normal [facility] Comment on above: Performed By: #### A 1C #### [facility] [address] [address] [address] Cleveland Snowden GLYCOHEMOGLOBIN A1Con 2021 ADA RECOMMENDATION SEE BELOW Normal [facility] Comment on above: Result Comment: ADA RECOMMENDED LIMIT 4.0 - 6.0 ADA THERAPEUTIC TARGET < 7.0 ACTION SUGGESTED > 7.0 Performed By: #### A 1C #### [facility] [address] [place] [address] Dr. Cleveland Snowden Glucose [Mass/Vol] 154 mg/dL Normal [facility] Comment on above: Performed By: #### A 1C #### [facility] [address] [place] [address] Dr. Cleveland Snowden HbA1c (Bld) [Mass fraction] 7.0 % Critically high 4.5-6.2 [facility] Comment on above: Performed By: #### A 1C #### [facility] [address] [place] [address] Dr. Cleveland Snowden LIPID PROFILEon 05-05-2022 CHOL-HDL RATIO NORM SEE BELOW Normal [facility] Comment on above: Result Comment: 3.3 - 4.4 LOW RISK 4.4 - 7.1 AVERAGE RISK 7.1 - 11.0 MODERATE RISK >11.0 HIGH RISK Performed By: #### P T, PTT #### [facility] [address] [place] [address] Dr. Cleveland Snowden Cholesterol [Mass/Vol] 104 mg/dL Normal <=200 [facility] Comment on above: Performed By: #### P T, PTT #### [facility] [address] [place] [address] Dr. Cleveland Snowden Cholesterol in HDL [Mass/Vol] 24 mg/dL Critically low 40-60 [facility] Comment on above: Performed By: #### P T, PTT #### [facility] [address] [address] [address] Cleveland Snowden Cholesterol in LDL [Mass/Vol] 28.0 mg/dL Normal [facility] Comment on above: Performed By: #### P T, PTT #### [facility] [address] [address] [address] Cleveland Snowden Cholesterol.total/Cho lesterol in HDL [Mass ratio] 4.3 {ratio} Normal [facility] Comment on above: Performed By: #### P T, PTT #### [facility] [address] [address] [address] Cleveland Snowden HDL NORMAL > or = 60 mg/dl - LOW CARDIOVASCULAR RISK <40 mg/dl - HIGH CARDIOVASCULAR RISK Normal [facility] Comment on above: Performed By: #### P T, PTT #### [facility] [address] [address] [address] Cleveland Snowden LDL CALC NORMAL SEE BELOW Normal [facility] Comment on above: Result Comment: <100 mg/dl OPTIMAL 100 - 129 mg/dl NEAR OR ABOVE OPTIMAL 130 - 159 mg/dl BORDERLINE HIGH 160 - 189 mg/dl HIGH >190 mg/dl VERY HIGH Performed By: #### P T, PTT #### [facility] [address] [address] [address] Cleveland Snowden Triglyceride [Mass/Vol] 260 mg/dL Critically high <=150 [facility] Comment on above: Performed By: #### P T, PTT #### [facility] [address] [address] [address] Cleveland Snowden VLDL CALC 52.0 mg/dL Normal [facility] Comment on above: Performed By: #### P T, PTT #### [facility] [address] [place] [address] Dr. Cleveland Snowden PROF 14(COMP METB)on 022 Albumin [Mass/Vol] 3.5 g/dL Normal 3.4-5.0 [facility] Comment on above: Performed By: #### P T, PTT #### [facility] [address] [address] [address] Cleveland Snowden Albumin/Globulin [Mass ratio] 1.1 {ratio} Normal [facility] Comment on above: Performed By: #### P T, PTT #### [facility] [address] [address] [address] Cleveland Snowden ALP [Catalytic activity/Vol] 59 U/L Normal 46-116 [facility] Comment on above: Performed By: #### P T, PTT #### [facility] [address] [address] [address] Cleveland Snowden ALT [Catalytic activity/Vol] 46 U/L Normal 16-63 [facility] Comment on above: Performed By: #### P T, PTT #### [facility] [address] [address] [address] Cleveland Snowden Anion gap [Moles/Vol] 14.7 mmol/L Normal [facility] Comment on above: Performed By: #### P T, PTT #### [facility] [address] [address] [address] Cleveland Snowden AST [Catalytic activity/Vol] 46 U/L Critically high 15-37 [facility] Comment on above: Performed By: #### P T, PTT #### [facility] [address] [address] [address] Cleveland Snowden Bilirubin [Mass/Vol] 0.5 mg/dL Normal 0.2-1.0 [facility] Comment on above: Performed By: #### P T, PTT #### [facility] [address] [address] [address] Cleveland Snowden Calcium [Mass/Vol] 9.5 mg/dL Normal 8.5-10.1 [facility] Comment on above: Performed By: #### P T, PTT #### [facility] [address] [address] [address] Cleveland Snowden Chloride [Moles/Vol] 103 mmol/L Normal 98-107 [facility] Comment on above: Performed By: #### P T, PTT #### [facility] [address] [address] [address] Cleveland Snowden CO2 [Moles/Vol] 28.1 mmol/L Normal 21.0-32.0 [facility] Comment on above: Performed By: #### P T, PTT #### [facility] [address] [place] [address] Dr. Clevealnd Snowden Creatinine [Mass/Vol] 0.84 mg/dL Normal 0.70-1.30 [facility] Comment on above: Performed By: #### P T, PTT #### [facility] [address] [place] [address] Dr. Cleveland Snowden EGFR-AF EGYPTIAN >60 Normal >=60 [facility] Comment on above: Performed By: #### P T, PTT #### [facility] [address] [place] [address] Dr. Cleveland Snowden EGFR-NON AF EGYPTIAN >60 Normal >=60 [facility] Comment on above: Performed By: #### P T, PTT #### [facility] [address] [place] [address] Dr. Cleveland Snowden Globulin (S) [Mass/Vol] 3.1 g/dL Normal [facility] Comment on above: Performed By: #### P T, PTT #### [facility] [address] [place] [address] Dr. Cleveland Snowedn Glucose [Mass/Vol] 176 mg/dL Critically high 74-106 [facility] Comment on above: Performed By: #### P T, PTT #### [facility] [address] [place] [address] Dr. Cleveland Snowden Potassium [Moles/Vol] 3.8 mmol/L Normal 3.5-5.1 [facility] Comment on above: Performed By: #### P T, PTT #### [facility] [address] [place] [address] Dr. Cleveland Snowden Protein [Mass/Vol] 6.6 g/dL Normal 6.4-8.2 [facility] Comment on above: Performed By: #### P T, PTT #### [facility] [address] [address] [address] Cleveland Snowden Sodium [Moles/Vol] 142 mmol/L Normal 136-145 [facility] Comment on above: Performed By: #### P T, PTT #### [facility] [address] [address] [address] Cleveland Snowden Urea nitrogen [Mass/Vol] 24.0 mg/dL Critically high 7.0-18.0 [facility] Comment on above: Performed By: #### P T, PTT #### [facility] [address] [address] [address] Cleveland Snowden Urea nitrogen/Creatinine [Mass ratio] 28.6 mg/mg Normal [facility] Comment on above: Performed By: #### P T, PTT #### [facility] [address] [place] [address] Dr. Cleveland Snowden URIC ACID SERUMon 05-05-2022 Urate [Mass/Vol] 6.2 mg/dL Normal 3.5-7.2 [facility] Comment on above: Performed By: #### P T, PTT #### [facility] [address] [address] [address] Cleveland Snowden Basophils Auto (Bld) [#/Vol] on 04-03-2021 Basophils (Bld) [#/Vol] 0.0 10*3/uL 0.0-0.2 [facility] Basophils/100 WBC Auto (Bld) on 04-03-2021 Basophils/100 WBC (Bld) 0.6 % [facility] Blood hemoglobin measurement (mass/volume)on 04-03-2021 Hemoglobin (Bld) [Mass/Vol] 12.2 g/dL 13.0-17.0 [facility] Blood leukocytes automated c ount (number/volume)on 04-03-2021 WBC (Bld) [#/Vol] 4.7 10*3/uL 4.5-11.0 [facility] Creatinine and Glomerular fi ltration rate.predicted panel (S/P/Bld)on 04-03-2021 Creatinine [Mass/Vol] 0.68 mg/dL 0.64-1.27 [facility] Eosinophils Auto (Bld) [#/Vo l]on 04-03-2021 Eosinophils (Bld) [#/Vol] 0.1 10*3/uL 0.0-0.45 [facility] Eosinophils/100 WBC Auto (Bl d)on 04-03-2021 Eosinophils/100 WBC (Bld) 3.1 % [facility] Erythrocyte distribution wid th Auto (RBC) [Ratio]on 04-03-2021 Erythrocyte distribution width (RBC) [Ratio] 15.0 % 12.0-14.8 [facility] Estimated glomerular filtrat ion rate (GFR) non- Americanon 04-03-2021 GFR/1.73 sq M.predicted among non-blacks MDRD (S/P/Bld) [Vol rate/Area] > 60 mL/Min [facility] Hematocrit Auto (Bld) [Volum e fraction]on 04-03-2021 Hematocrit (Bld) [Volume fraction] 36.2 % 38.8-50.0 [facility] Laboratory - Hematology and Cell countson 04-03-2021 Nucleated RBC/100 WBC (Bld) [Ratio] 0.2 % 0-0.5 [facility] Lymphocytes Auto (Bld) [#/Vo l]on 04-03-2021 Lymphocytes (Bld) [#/Vol] 0.7 10*3/uL 1.00-4.8 [facility] Lymphocytes/100 WBC Auto (Bl d)on 04-03-2021 Lymphocytes/100 WBC (Bld) 14.5 % [facility] MCH Auto (RBC) [Entitic mass ]on 04-03-2021 MCH (RBC) [Entitic mass] 31.3 pg 27.5-35.2 [facility] MCHC Auto (RBC) [Mass/Vol]on 04-03-2021 MCHC (RBC) [Mass/Vol] 33.8 g/dL 32.5-35.6 [facility] MCV Auto (RBC) [Entitic vol] on 04-03-2021 MCV (RBC) [Entitic vol] 92.6 fL 83.5-101 [facility] Monocytes Auto (Bld) [#/Vol] on 04-03-2021 Monocytes (Bld) [#/Vol] 0.5 10*3/uL 0.0-0.8 [facility] Monocytes/100 WBC Auto (Bld) on 04-03-2021 Monocytes/100 WBC (Bld) 10.7 % [facility] Neutrophils Auto (Bld) [#/Vo l]on 04-03-2021 Neutrophils (Bld) [#/Vol] 3.3 10*3/uL 1.8-7.7 [facility] Neutrophils/100 WBC Auto (Bl d)on 04-03-2021 Neutrophils/100 WBC (Bld) 71.1 % [facility] No Panel Informationon 04-03 Estimated GFR () > 60 mL/Min [facility] Comment on above: GFR estimated refere nce range: According to KDOQI guidelines, <60 ml/min/1.73m2 is sufficient to diagnose a patient with chronic kidney disease. Pharmacy Creatinine Clearance (Chem N/A [facility] Platelet mean volume Auto (B ld) [Entitic vol]on 04-03-2021 Platelet mean volume (Bld) [Entitic vol] 8.5 fL 6.6-10.1 [facility] Platelets Auto (Bld) [#/Vol] on 04-03-2021 Platelets (Bld) [#/Vol] 137 10*3/uL 150-450 [facility] RBC Auto (Bld) [#/Vol]on RBC (Bld) [#/Vol] 3.91 10*6/uL 3.90-5.60 [facility] Serum or plasma calcium edu urement (mass/volume)on 04-03-2021 Calcium [Mass/Vol] 9.8 mg/dL 8.2-10.2 [facility] Serum or plasma chloride merlyn surement (moles/volume)on 04-03-2021 Chloride [Moles/Vol] 100 mmol/L 95-114 [facility] Serum or plasma glucose edu urement (mass/volume)on 04-03-2021 Glucose [Mass/Vol] 184 mg/dL 70-100 [facility] Comment on above: ADA recommended refe rence rangeRandom Glucose Reference Range is dependent on time and content of last meal. Glucose of more than 200 mg/dL in a nonstressed, ambulatory subject supports the diagnosis of Diabetes Mellitus. Serum or plasma potassium me asurement (moles/volume)on 04-03-2021 Potassium [Moles/Vol] 3.6 mmol/L 3.5-5.1 [facility] Serum or plasma sodium measu rement (moles/volume)on 04-03-2021 Sodium [Moles/Vol] 138 mmol/L 136-146 [facility] Serum or plasma total carbon dioxide measurement (moles/volume)on 04-03-2021 CO2 [Moles/Vol] 26.3 mmol/L 22.0-30.0 [facility] Serum or plasma urea nitroge n measurement (mass/volume)on 04-03-2021 Urea nitrogen [Mass/Vol] 17 mg/dL 9-23 [facility] Basophils Auto (Bld) [#/Vol] on 02-11-2021 Basophils (Bld) [#/Vol] 0.0 10*3/uL 0.0-0.2 [facility] Basophils/100 WBC Auto (Bld) on 02-11-2021 Basophils/100 WBC (Bld) 0.6 % [facility] Blood hemoglobin measurement (mass/volume)on 02-11-2021 Hemoglobin (Bld) [Mass/Vol] 12.6 g/dL 13.0-17.0 [facility] Blood leukocytes automated c ount (number/volume)on 02-11-2021 WBC (Bld) [#/Vol] 4.4 10*3/uL 4.5-11.0 [facility] Eosinophils Auto (Bld) [#/Vo l]on 02-11-2021 Eosinophils (Bld) [#/Vol] 0.2 10*3/uL 0.0-0.45 [facility] Eosinophils/100 WBC Auto (Bl d)on 02-11-2021 Eosinophils/100 WBC (Bld) 3.8 % [facility] Erythrocyte distribution wid th Auto (RBC) [Ratio]on 02-11-2021 Erythrocyte distribution width (RBC) [Ratio] 14.9 % 12.0-14.8 [facility] Hematocrit Auto (Bld) [Volum e fraction]on 02-11-2021 Hematocrit (Bld) [Volume fraction] 36.1 % 38.8-50.0 [facility] - Hematology and Cell countson 02-11-2021 Nucleated RBC/100 WBC (Bld) [Ratio] 0.1 % 0-0.5 [facility] Lymphocytes Auto (Bld) [#/Vo l]on 02-11-2021 Lymphocytes (Bld) [#/Vol] 0.7 10*3/uL 1.00-4.8 [facility] Lymphocytes/100 WBC Auto (Bl d)on 02-11-2021 Lymphocytes/100 WBC (Bld) 15.4 % [facility] MCH Auto (RBC) [Entitic mass ]on 02-11-2021 MCH (RBC) [Entitic mass] 32.5 pg 27.5-35.2 [facility] MCHC Auto (RBC) [Mass/Vol]on 02-11-2021 MCHC (RBC) [Mass/Vol] 34.8 g/dL 32.5-35.6 [facility] MCV Auto (RBC) [Entitic vol] on 02-11-2021 MCV (RBC) [Entitic vol] 93.3 fL 83.5-101 [facility] Monocytes Auto (Bld) [#/Vol] on 02-11-2021 Monocytes (Bld) [#/Vol] 0.5 10*3/uL 0.0-0.8 [facility] Monocytes/100 WBC Auto (Bld) on 02-11-2021 Monocytes/100 WBC (Bld) 12.1 % [facility] Neutrophils Auto (Bld) [#/Vo l]on 02-11-2021 Neutrophils (Bld) [#/Vol] 3.0 10*3/uL 1.8-7.7 [facility] Neutrophils/100 WBC Auto (Bl d)on 02-11-2021 Neutrophils/100 WBC (Bld) 68.1 % [facility] Platelet mean volume Auto (B ld) [Entitic vol]on 02-11-2021 Platelet mean volume (Bld) [Entitic vol] 8.2 fL 6.6-10.1 [facility] Platelets Auto (Bld) [#/Vol] on 02-11-2021 Platelets (Bld) [#/Vol] 118 10*3/uL 150-450 [facility] RBC Auto (Bld) [#/Vol]on RBC (Bld) [#/Vol] 3.87 10*6/uL 3.90-5.60 [facility] Creatinine (Bld) [Mass/Vol]o n 01-10-2021 Creatinine [Mass/Vol] 0.7 mg/dL 0.6-1.3 [facility] Comment on above: ER/ESD physician is notified/shown all ISTAT results.Critical values may be confirmed by laboratory testing ifdeemed necessary by ER attending doctor. No Panel Informationon 01-10 POC Estimated GFR > 60 [facility] Comment on above: GFR estimated refere nce range: According to KDOQI guidelines, <60 ml/min/1.73m2 is sufficient to diagnose a patient with chronic kidney disease. POC Estimated GFR Non- Amer > 60 [facility] Vital Signs Date Time Vital Sign Value Performing Clinician Facility 08-08-2024 12:34-0400 Body height 185.4 cm Olive MULLINS Work Phone: [facility] 08-08-2024 12:34-0400 Body mass index (BMI) [Ratio] 37.07 kg/m2 Olive MULLINS Work Phone: [facility] 08-08-2024 12:34-0400 Body weight 127.46 kg Olive MULLINS Work Phone: [facility] 08-08-2024 12:34-0400 Diastolic blood pressure 84 mm[Hg] Olive MULLINS Work Phone: [facility] 08-08-2024 12:34-0400 Heart rate 52 /min Olive MULLINS Work Phone: [facility] 08-08-2024 12:34-0400 Respiratory rate 16 /min Olive Hill PA Work Phone: [facility] 08-08-2024 12:34-0400 SaO2% (BldA) [Mass fraction] 99 % Olive Hampton PA Work Phone: [facility] 08-08-2024 12:34-0400 Systolic blood pressure 130 mm[Hg] Olive Hampton PA Work Phone: [facility] 07-26-2024 15:43-0400 Body height 185.4 cm Elina Lyricmor [employer] Work Phone: [facility] 07-26-2024 15:43-0400 Body mass index (BMI) [Ratio] 37.34 kg/m2 Elina Gillmor [employer] Work Phone: [facility] 07-26-2024 15:43-0400 Body weight 128.37 kg Elina Lyricmor [employer] Work Phone: [facility] 07-26-2024 15:43-0400 Diastolic blood pressure 80 mm[Hg] Eilna Lyricmor [employer] Work Phone: [facility] 07-26-2024 15:43-0400 Heart rate 69 /min Elina Gillmor [employer] Work Phone: [facility] 07-26-2024 15:43-0400 SaO2% (BldA) [Mass fraction] 97 % Elnia Lyricmor [employer] Work Phone: [facility] 07-26-2024 15:43-0400 Systolic blood pressure 132 mm[Hg] Elina Lyricmor [employer] Work Phone: [facility] 12-09-2023 11:01-0500 Body height 190.5 cm Preet Enrique DPM Work Phone: [facility] 12-09-2023 11:01-0500 Body mass index (BMI) [Ratio] 36.87 kg/m2 Preet Enrique DPM Work Phone: [facility] 12-09-2023 11:01-0500 Body weight 133.81 kg Preet Enrique DPM Work Phone: [facility] 07-21-2023 13:32-0400 Blood Pressure Location [place]uart [facility] 07-21-2023 13:32-0400 Diastolic blood pressure 64 mm[Hg] Judestuart [facility] 07-21-2023 13:32-0400 Heart rate 54 /min Judestuart [place] [facility] 07-21-2023 13:32-0400 Systolic blood pressure 117 mm[Hg] [place] 01-05-2023 10:47-0500 Blood Pressure Location [place] [facility] 01-05-2023 10:47-0500 Diastolic blood pressure 93 mm[Hg] [place] [facility] 01-05-2023 10:47-0500 Heart rate 58 /min [place] 01-05-2023 10:47-0500 Systolic blood pressure 152 mm[Hg] [facility] Encounters Encounter Date Encounter Type Care Provider Facility Start: 09-04-2024 ambulatory Jude BEACH Facili ty:[facility] Start: 08-08-2024 End: 08-08-2024 Bamboo flowsheet Olive MULLINS Work Phone: [facility] Start: 08-08-2024 End: 08-08-2024 Bamboo flowsheet Olive MULLINS Work Phone: [facility] Start: 08-08-2024 End: 08-08-2024 Office outpatient visit 15 minutes Olive MULLINS Work Phone: [facility] Comment on above: Polyradiculopathy (P rimary Dx); Polyneuropathy Start: 08-08-2024 End: 08-08-2024 ambulatory OLIVE HAMPTON Not Available Start: 07-26-2024 End: 07-26-2024 Office outpatient visit 25 minutes Elina Guzmán [employer] Work Phone: [facility] [address] [facility] Comment on above: Obstructive sleep ap rohith syndrome (Primary Dx); Snoring; Obesity (BMI 30-39.9); Hypersomnia Start: 07-26-2024 End: 07-26-2024 ambulatory ELINA NARGIS Not Available Start: 07-26-2024 ambulatory Jude Gonzalezi ty:[facility] [place] Start: 07-26-2024 End: 07-26-2024 Patient encounter procedure Jude BE[facility] Start: 06-15-2024 End: 06-15-2024 ambulatory PREET ENRIQUE Not Available Start: 05-29-2024 End: 05-29-2024 ambulatory [facility] Start: 05-18-2024 End: 05-18-2024 ambulatory [facility] Start: 05-15-2024 End: 05-15-2024 ambulatory [facility] Start: 05-02-2024 End: 05-02-2024 ambulatory KHOA BOWLES Not Available Start: 04-11-2024 End: 04-11-2024 ambulatory OLIVE HAMPTON Not Available Start: 04-03-2024 End: 04-03-2024 ambulatory KHOA BOWLES Not Available Start: 2024 ambulatory KHOA BOWLES [facility] Start: 03-14-2024 End: 03-14-2024 ambulatory PREET ENRIQUE Not Available Start: 03-09-2024 End: 03-09-2024 ambulatory [facility] Start: 02-14-2024 End: 02-14-2024 ambulatory KHOA BOWLES Not Available Start: 02-03-2024 End: 02-03-2024 ambulatory KHOA BOWLES Not Available Start: 12-09-2023 End: 12-09-2023 Patient encounter procedure Preet Enrique DPM Work Phone: [facility] Comment on above: 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, not 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) (CMS/HCC) (Primary Dx); Onychomycosis; Hallux limitus, left; Acquired keratoderma Start: 12-09-2023 End: 12-09-2023 ambulatory PREET ENRIQUE Not Available Start: 11-04-2023 End: 11-04-2023 ambulatory KHOA BOWLES Not Available Start: 08-05-2023 End: 08-05-2023 ambulatory Olive Hampton Facility:[facility] Start: 08-05-2023 End: 08-05-2023 ambulatory MD Khoa Bowles Work Phone: [facility] Work Phone: Start: 08-05-2023 End: 08-05-2023 Patient encounter procedure MD Khoa Bowles Work Phone: [facility] [address] Work Phone: Start: 07-21-2023 End: 07-21-2023 Patient encounter procedure Jude BEACH [facility] Start: 07-16-[address] KHOA BOWLES . Fac ility:[facility] Start: 02-04-2023 End: 02-05-[address] JUDE BEACH . Facility:[facility] Start: 01-14-2023 End: 01-14-[address] JUDE BEACH . Facility:[facility] Start: 01-12-2023 Encounter for other preprocedural examination DR JUDE BEACH . [facility] Start: 01-12-2023 Encounter for prepro cedural cardiovascular examination DR JUDE BEACH . [facility] Start: 01-12-2023 Encounter for prepro cedural laboratory examination DR JUDE BEACH . [facility] Start: 01-08-2023 End: 01-09-[address] JUDE BEACH . Facility:[facility] Start: 01-08-2023 End: 01-09-2023 Encounter for preprocedural laboratory examination DR JUDE BEACH . Facility:[facility] Start: 01-05-2023 End: 01-05-2023 Patient encounter procedure Jude BEACH [facility] Start: 12-31-2022 End: 01-01-[address] KHOA BOWLES . Facility:[facility] Start: 11-02-[address] KHOA BOWLES . Fac ility:[facility] Start: 09-21-2022 End: 09-21-2022 Patient encounter procedure Jude BEACH [facility] Start: 09-09-2022 End: 09-10-[address] JUDE BEACH . Facility:[facility] Start: 08-06-2022 End: 08-07-[address] KHOA BOWLES . Facility:[facility] Start: 05-05-2022 End: 05-06-[address] KHOA BOWLES . Facility: Start: 04-03-2021 End: 04-03-2021 Patient encounter procedure Khoa Bowles Work Phone: -Pre-Surgical Testing Start: 02-11-2021 End: 02-11-2021 Patient encounter procedure Khoa Bowles Work Phone: -[facility] [place] Start: 01-10-2021 End: 01-10-2021 Patient encounter procedure [...] Performed By: #### P T, PTT #### [facility] [address] [address] [address] Cleveland Snowden Start: 09-09-[address] LILIANE BEACH . Comment on above: Performed By: #### P SAD #### [facility] [address] [address] [address] Cleveland Snowden Start: 01-10-2021 MRI of lumbar spine with contrast Khoa Bowles Work Phone: Start: 01-10-2021 X-ray of lumbar spin e, four views Khoa Bowles Work Phone: Start: 06-17-2016 Colonoscopy Preet Klaus ribeiro DPM Work Phone: Start: 04-30-2015 Cystoscopy Jude REESE Start: 02-21-2014 Removal of calculus of renal pelvis through percutaneous nephrostomy Jude BEACH Start: 01-23-2014 Removal of calculus of renal pelvis through percutaneous nephrostomy Jude NINA Start: 12-27-2013 Cystoscopic extracti on of ureteric calculus without disintegration Jude NINA Start: 11-23-2013 Cystoscopic extracti on of ureteric calculus without disintegration Jude NINA Start: 10-26-2013 Cystoscopic insertio n of ureteric [...] Screening for malign ant neoplasm of colon [facility] Start: 02-24-2026 Glaucoma screening Diabetes: R etinopathy Screening [facility] Start: 07-24-2025 End: 07-24-2025 Patient encounter procedure 07/24/2025 2:15 PM EDT [facility] [address] [place] [address] Shani Mohan DO [address] [place], [place] [id number] [facility] [address] Start: 04-03-2025 Medicare Annual Wellness (AWV) Medicare Annual Wellness (AWV) [facility] Start: 01-22-2025 End: 01-22-2025 Patient encounter procedure 01/22/2025 12:40 PM EDT Office Visit [facility] [address] [place] [phone] Olive Hampton PA [address] [place] [address] [facility] Start: 10-31-2024 End: 10-31-2024 Patient encounter procedure 10/31/2024 11:30 AM EST Office Visit [facility] [address] [facility] [place] [address] Khoa Bowles MD [address] [facility] [place] [address] (Fax) [facility] Start: 09-14-2024 End: 09-14-2024 Patient encounter procedure 09/14/2024 3:00 PM EST Procedure Visit [facility] [address] [place] [phone] Preet Enrique DPM [address] [place] [address] [facility] Start: 08-08-2024 End: 08-08-2024 Patient encounter procedure [facility] Comment on above: Arrived Start: 07-02-2024 Influenza vaccination Influenza Vacc ine (#1) [facility] Start: 06-08-2024 Glaucoma screening Diabetes: R etinopathy Screening [facility] Start: 03-09-2024 End: 03-09-2024 Patient encounter procedure 03/09/2024 1:00 PM EDT Procedure Visit [facility] [address] [place] [phone] Preet Enrique DPM [address] [place] [address] [facility] Start: 02-23-2024 Medicare Annual Wellness (AWV) Medicare Annual Wellness (AWV) [facility] Start: 02-03-2024 End: 02-03-2024 Patient encounter procedure 02/03/2024 11:30 AM EDT Office Visit [facility] [address] [place] [address] Khoa Bowles MD [address] [place] [address] (Fax) [facility] Start: 01-18-2024 Hemoglobin A1c measurement Diabetes: Hemoglobin A1C [facility] Start: 01-09-2024 Urine screening for protein Diabetes: Urine Protein Screening [facility] Start: 1950 Screening for malign ant neoplasm of colon [facility] Immunizations Immunization Date Immunization Notes Care Provider Fa cility 10-14-2023 Influenza, Seasonal, Quadrivalent, Adjuvanted Preet Enrique DPM Work Phone: [facility] 10-14-2023 influenza virus vacc ine, unspecified formulation Elina Guzmán [employer] Work Phone: [facility] 09-09-2022 SARS-CoV-2 (COVID-19 ) [id number] Jude [facility] 09-03-2022 influenza virus vacc ine, unspecified formulation Jude BEACH [facility] 09-03-2022 Influenza, High-dose Seasonal, Quadrivalent, Preservative Free Preet Enrique DPM Work Phone: [facility] 09-26-2021 SARS-CoV-2 (COVID-19 ) [id number] vaccine [place]uart [place] [facility] 09-25-2021 Moderna SARS-CoV-2 Booster Vaccination Preet Enrique DPM Work Phone: [facility] 08-22-2021 influenza virus vacc ine, unspecified formulation [place] [facility] 08-22-2021 Influenza, Seasonal, Quadrivalent, Adjuvanted Preet Enrique DPM Work Phone: [facility] 08-20-2021 influenza virus vacc ine, unspecified formulation Jude BE[facility] 01-25-2021 COVID-19 mRNA-1273 (Moderna) Khoa Bowles Work Phone: [facility] 01-25-2021 SARS-CoV-2 (COVID-19 ) Ad26 vaccine, recombinant Jude BEACH [facility] 12-31-2020 pneumococcal conjuga te vaccine, 13 valent Elina Guzmán [employer] SUPERVISOR Work Phone: [facility] 12-28-2020 COVID-19 mRNA-1273 (Moderna) Khoa Bowles Work Phone: [facility] Comment on above: Result Comment: 2022: [id number] 08-06-2020 influenza virus vacc ine, unspecified formulation Jude BEACH [facility] 08-06-2020 Influenza, Seasonal, Quadrivalent, Adjuvanted Preet Enrique DPM Work Phone: [facility] 09-04-2019 influenza virus vacc ine, unspecified formulation Jude BEACH [facility] 09-04-2019 influenza, high dose seasonal, preservative-free Preet Enrique DPM Work Phone: [facility] 08-19-2018 influenza virus vacc ine, unspecified formulation Jude BEACH [facility] 08-19-2018 influenza, high dose seasonal, preservative-free Preet Enrique DPM Work Phone: [facility] 09-06-2017 influenza virus vacc ine, unspecified formulation Jude BEACH [facility] 09-06-2017 influenza, high dose seasonal, preservative-free Preet Enrique DPM Work Phone: [facility] 09-06-2017 pneumococcal polysaccharide vaccine, 23 valent Jude BEACH [facility] 08-18-2017 influenza virus vacc ine, unspecified formulation Jude BEACH [facility] 08-17-2016 influenza virus vacc ine, unspecified formulation Jude BEACH [facility] 08-17-2016 influenza, high dose seasonal, preservative-free Preet Enrique DPM Work Phone: [facility] 08-17-2016 pneumococcal conjuga te vaccine, 13 valent Jude BEACH [facility] 08-22-2015 zoster vaccine, live Jude BEACH [facility] 08-17-2015 influenza, seasonal, injectable, preservative free Preet Enrique DPM Work Phone: [facility] 07-27-2013 influenza virus vacc ine, unspecified formulation Jude BEACH [facility] 02-22-2012 pneumococcal polysaccharide vaccine, 23 valent Preet Enrique DPM Work Phone: [facility] 07-20-2009 pneumococcal polysaccharide vaccine, 23 valent Jude BEACH [facility] Payers Date Payer Category Payer Medicare [id number] 2016 Medicare MEDICARE MEDICAR E PART B [id number] 2016-Present [address] [address] [place] [address] Medicare [id number] 2016 Private Health Insurance [employer] [id number] 2016-Present [address] [address] [place] [address] Supplement [id number] 2015 Medicare [id number] 1959 Medicare [id number] 1959 Private Health Insurance [facility] [id number] 1959 Self-pay [id number] 1950 Unknown [id number] 2.16.840.1.344694.3.579 .2.593 1950 Unknown [id number] 2.16.840.1.904140.3.579 .2.593 1950 Unknown [id number] 2.16.840.1.705696.3.579 .2.593 1950 Unknown [id number] 2.16.840.1.597914.3.579 .2.593 1950 Unknown [id number] 2.16.840.1.895822.3.579 .2.593 1950 Unknown [id number] 2.16.840.1.159504.3.579 .2.593 1950 Unknown [id number] 2.16.840.1.207735.3.579 .2.593 1950 Unknown [id number] 2.16.840.1.424498.3.579 .2.593 1950 Unknown [id number] 2.16.840.1.509715.3.579 .2.593 1950 Unknown [id number] 2.16.840.1.406063.3.579 .2.593 1950 Unknown [id number] 2.16.840.1.249470.3.579 .2.1286 1950 Unknown [id number] 2.16.840.1.133908.3.579 .2.128 1950 Unknown [id number] 2.16.840.1.526820.3.579 .2.128 1950 Unknown [id number] 2.16.840.1.043433.3.579 .2.1286 1950 Unknown [id number] 2.16.840.1.421104.3.579 .2.1286 1950 Unknown [id number] 2.16.840.1.609073.3.579 .2.1286 1950 Unknown [id number] 2.16.840.1.412856.3.579 .2.727 1950 Unknown [id number] 2.16.840.1.730636.3.579 .2.727 1950 Unknown [id number] 2.16.840.1.373355.3.579 .2.1259 1950 Unknown [id number] 2.16.840.1.693230.3.579 .2.125 1950 Unknown [id number] 2.16.840.1.867658.3.579 .2.125 1950 Unknown [id number] 2.16.840.1.703365.3.579 .2.125 1950 Unknown [id number] 2.16.840.1.929014.3.579 .2.1259 1950 Unknown [id number] 2.16.840.1.952432.3.579 .2.125 1950 Unknown [id number] 2.16.840.1.831124.3.579 .2.125 1950 Unknown [id number] 2.16.840.1.773980.3.579 .2.125 1950 Unknown [id number] 2.16.840.1.040047.3.579 .2.125 1950 Unknown [id number] 2.16.840.1.908206.3.579 .2.125 1950 Unknown [id number] 2.16.840.1.450413.3.579 .2.1259 Unknown [id number] Unknown [id number] 2.16.840.1.995293.3.579 .2.531 Social History Date Type Detail Facility Start: 04-03-2021 End: 06-02-2023 Tobacco smoking status NHIS Never smoked tobacco (finding) [facility] Start: 1950 Sex Assigned At Male Manny [facility] Tobacco smoking status Never Reji [facility] Start: 12-09-2023 End: 04-03-2024 Sex Assigned At Male [facility] Start: 12-09-2023 End: 08-08-2024 Alcohol intake Lifetime non-drinker (finding) [facility] Start: 12-09-2023 End: 04-03-2024 History of Social function [facility] Start: 04-14-2023 Alcohol Comment Caffeine intake: non e [facility] Start: 1950 Sex Assigned At Not on file [facility] Medical Equipment Procedure Code Equipment Code Equipment Origin al Text Equipment Identifier Dates Discectomy, lumbar COFLEX SIZE 10 [facility] art: 11-23-2018 Discectomy, lumbar COFLEX SIZE 14 [facility] art: 11-23-2018 Discectomy, lumbar COFLEX SIZE 14 [facility] art: 11-23-2018 Discectomy, lumbar COFLEX SIZE 10 [facility] art: 11-23-2018 1 each by In Vit ro route in the morning. Take before meals. [id number] Start: 08-02-2023 End: 07-27-2024 1 Units in the morning. Take before meals. Accucheck soft clix. [id number] Start: 11-10-2023 End: 11-04-2024 Injection subcutaneous [id number] Start: 11-11-2023 Use for Injectio n subcutaneous twice daily [id number] Start: 07-24-2024 Functional Status Date Assessment Result Facility 07-21-2023 Functional Status N/A [facility] 01-05-2023 Functional Status N/A [facility] Clinical Notes 09-21-2022 to 08-08-2024 SUSANNA Arndt - 08/08/2024 12:40 PM Ari Enrique DPM - 12/09/2023 11:00 AM EST Note Date & Type Note Facility 08-08-2024 History of Present illness Narrative Subjective Manuel Balderas is a 74 y.o. year old male Chief Complaint Patient presents with Polyradiculopathy Past Medical History: Diagnosis Date Acute deep vein thrombosis (DVT) of tibial vein of left lower extremity ([facility]/HCC) Acute infective polyneuritis ([facility]) Back pain severe polyneuropathy and polyradiculopathy- likely due to DM. also has chronic back pain. improved with meds. Symptoms have improved with gabapentin. he cannot walk for long distances due to fatigue and weakness and is afraid of falling Callus left foot Cataract 2020 [place] M[place]: cataract, age related mac. degeneration, presbyopia, astigmatism, myopia Cellulitis 01/2024 BL lower extremities 3 day hospital stay Chronic ulcer of left foot limited to breakdown of skin ([facility]/HCC) Chronic ulcer of left foot limited to breakdown of skin ([facility]) Degenerative disc disease, lumbar Diabetes ([facility]) Diabetes mellitus ([facility]) without mention of complication, type II or unspecified type, uncontrolled Disorder of lipoid metabolism ([facility]) unspecified Diverticulosis of colon without hemorrhage Essential hypertension ([facility]) unspecified Facet arthritis of lumbar region Fibromyalgia Hyperlipidemia ([facility]) Hypertension ([facility]) Iron deficiency anemia refractory to iron therapy Kidney calculi Kidney stones Malaise and fatigue Microalbuminuric diabetic nephropathy ([facility]) Morbid obesity ([facility]) Neuropathy Polyneuropathy with improvement with gabapentin. he cannot walk for long distances due to fatigue and weakness and is afraid of falling. He is having some balance difficulty possibly due to the gabapentin and will decrease med to see if there is improvement Non-pressure chronic ulcer of other part of left foot limited to breakdown of skin ([facility]) Obesity Obstructive sleep apnea (adult) (pediatric) Obstructive sleep apnea on CPAP 2009 Peripheral neuropathy Peripheral vascular disease ([facility]) Personal history of medical treatment 2010 infection in foot surgery Polyneuropathy Polyradiculopathy Radiculopathy, lumbosacral region Right bundle branch block Rotator cuff tear, left Skin ulcer of toe of left foot with fat layer exposed ([facility]) Type 2 diabetes mellitus with diabetic nephropathy, without long-term current use of insulin ([facility]) Type 2 diabetes mellitus with diabetic neuropathic arthropathy, without long-term current use of insulin ([facility]) Type II diabetes mellitus with neurological manifestations not at goal (CMS/HCC) Ulcer of left foot with fat layer exposed (CMS/HCC) Weakness Past Surgical History: Procedure Laterality Date ANKLE FUSION BACK SURGERY 11/23/2018 2 days BLEPHAROPLASTY Bilateral 01/2021 Christopher Viveros BONE MARROW BIOPSY CATARACT EXTRACTION Bilateral 06/2021 Dr White COLONOSCOPY 2010 COLONOSCOPY 06/17/2016 EYE EXAM 2013 HERNIA REPAIR 1988 IR ABLATION VEIN Bilateral 05/11/2024 05/25/2024 Right KIDNEY STONE SURGERY 02/21/2014 LITHOTRIPSY 12/30/2022 MELANOMA 02/14/2019 Right ear melanoma removed and graft OTHER SURGICAL HISTORY 01/2017 Dr Lu - left big toe umbilical cord skin OTHER SURGICAL HISTORY 11/23/2018 Lumbar decompression at L3-L4-L5 with Coflex device OTHER SURGICAL HISTORY 04/2021 lumbar decompression with removal of 1 of the Coflex devices., Uday, [facility] ROTATOR CUFF REPAIR Left 2000 anterior stabilization SPINAL CORD DECOMPRESSION 04/2021 Lumbar Family History Problem Relation Name Age of Onset Diabetes Mother Other (NonHodgkins Lymphoma) Father No Known Problems Sister No Known Problems Brother No Known Problems Daughter Social History Tobacco Use Smoking status: Never Smokeless tobacco: Not on file Substance Use Topics Alcohol use: Never Comment: Caffeine intake: none Medication Documentation Review Audit Reviewed by Taisha Gore MA (Printing Table Hand) on 08/08/24 at 1240 Medication Order Taking? Sig Documenting Provider Last Dose Status allopurinol (Zyloprim) 300 MG tablet [id number] No Take 1 tablet (300 mg) by mouth Daily Khoa Bowles MD Taking Active aspirin 81 MG EC tablet [id number] No Take 81 mg by mouth in the morning. Historical ProviderMD Taking Active biotin 44298 MCG tablet [id number] No 1 (one) time each day at the same time. Historical Provider, Taking Active dapagliflozin (Farxiga) 10 MG [id number] No Take 1 tablet (10 mg) by mouth Daily Khoa Bowles MD Taking Active doxycycline (Monodox) 100 MG capsule [id number] No Take 1 capsule (100 mg) by mouth in the morning. Khoa Bowles MD Taking Active fenofibrate (Triglide) 160 MG tablet [id number] No Take 1 tablet (160 mg) by mouth Daily Khoa Bowles MD Taking Active ferrous sulfate 325 (65 Fe) MG tablet [id number] No Take 325 mg by mouth in the morning. Take with meals. Historical ProviderMD Taking Active Flomax 0.4 MG 24 hr capsule [id number] No Take 0.4 mg by mouth in the evening. Historical ProviderMD Taking Active gabapentin (Neurontin) 300 MG capsule [id number] Take 1 capsule (300 mg) by mouth in the morning and 1 capsule (300 mg) before bedtime. SUSANNA Arndt Active hydroCHLOROthiazide (HYDRODiuril) 25 MG tablet [id number] No Take 1 tablet (25 mg) by mouth in the evening Khoa Bowles MD Taking Active insulin glargine (Basaglar KwikPen) 100 UNIT/ML pen [id number] No Inject bid, sliding blood glucose scale with the coverage: <70, zero and eat. 70-150, 10 units. 151-200, 14 units. 201-250, 16 units. 251-300, 18 units. >300, 20 units Khoa Bowles MD Taking Active losartan-hydroCHLOROthiazide (Hyzaar) 100-12.5 MG tablet [id number] No Take 1 tablet by mouth Daily Khoa Bowles MD Taking Active Lutein 20 MG tablet [id number] No 1 (one) time each day at the same time. Karli Boston MD Taking Active metFORMIN (Glucophage) 1000 MG tablet [id number] No Take 1 tablet (1,000 mg) by mouth in the morning and 1 tablet (1,000 mg) in the evening. Take with meals. Khoa Bowles MD Taking Active metoprolol tartrate (Lopressor) 50 MG tablet [id number] No Take 1 tablet (50 mg) by mouth in the morning and 1 tablet (50 mg) before bedtime. Khoa Bowles MD Taking Active pen needle 32G x 6 mm [facility] [id number] No Use for Injection subcutaneous twice daily Khoa Bowles MD Taking Active sodium bicarbonate 650 MG tablet [id number] No Take 3 tablets by mouth in the morning and 3 tablets before bedtime. Kalri Boston MD Taking Active spironolactone (Aldactone) 25 MG tablet [id number] No 2 tablets in Am and 1 tablet in PM Patient not taking: Reported on 07/26/2024 Khoa Bowles MD Not Taking Active HPI Neuropathic Pain in legs -on gabapentin -leg pain has been a lot better -states he had vascular SX on ROSE MARY legs -continues to have leg weakness -symptoms are ROSE MARY equal -denies any numbness or tingling -denies any cramps, sleeping better at night -admits to imbalance -ambulates with rollator -denies any recent falls ROS Review of Systems Constitutional: Negative. Respiratory: Negative. Cardiovascular: Negative. Gastrointestinal: Negative. Musculoskeletal: Positive for gait problem and myalgias. Objective Visit Vitals BP 130/84 Pulse 52 Resp 16 Ht 6' 1 Wt 281 lb SpO2 99% BMI 37.07 kg/m Smoking Status Never BSA 2.56 m Neurological Exam Mental Status Awake, alert and oriented to person, place and time. Recent and remote memory are intact. Speech is normal. Language is fluent with no aphasia. Attention and concentration are normal. Fund of knowledge is appropriate for level of education. Cranial Nerves CN II: Visual acuity is normal. Visual mclaughlin full to confrontation. CN III, IV, : Extraocular movements intact bilaterally. Normal lids and orbits bilaterally. Pupils equal round and reactive to light bilaterally. CN V: Facial sensation is normal. CN VII: Full and symmetric facial movement. CN VIII: Hearing is normal. CN XI: Shoulder shrug strength is normal. Motor Normal muscle bulk throughout. Normal muscle tone. No abnormal involuntary movements. Gait Gait wide based, Ambulates with walker. Motor Examination RUE Strength deltoid, biceps, triceps, wrist extensors, wrist extensors, wrist flexor, background check coordinator strength 5/5. LUE Strength deltoid, biceps, triceps, wrist extensors, wrist extensors, wrist flexor, background check coordinator strength 5/5. RLE Strength illopsoas, quadriceps, tibialis anterior, and gastrocnemius strength 5/5. LLE Strength illopsoas, quadriceps, tibialis anterior, and gastrocnemius strength 5/5. Tone Normal tone x4 extremities. Reflexes: RUE biceps reflex 1, brachioradialis reflex 1 LUE biceps reflex 1, brachioradialis reflex 1 RLE knee reflex 0, ankle reflex 0 LLE knee reflex 0, ankle reflex 0 compression stockings bilaterally. Heart: Regular rate and rhythm, murmur appreciated Assessment and Plan Diagnoses and all orders for this visit: Polyradiculopathy Spinal stenosis of lumbar region, unspecified whether neurogenic claudication present DDD (degenerative disc disease), lumbar Radicular pain into the bilateral lower extremities due to underlying severe polyneuropathy and polyradiculopathy which initially significantly improved since surgical intervention November 2018 and then again with surgery in April 2021. Patient previously followed with Dr. Frye. He has had an increase in balance issues, leg weakness, and pain in his lower extremities despite his HEP and medications. He does not tolerate zanaflex or cyclobenzaprine. Patient follows with vascular for varicose veins and recently had surgery which has improved the cramping sensation in his legs. Polyneuropathy Previously was treated with both zonegran and gabapentin. Zonegran has since been weaned. Diabetes normally well controlled. Symptoms are currently stable with gabapentin. ___ Lumbar spine MRI 08/05/2023: revealed diffuse degenerative disc disease contributing to moderate canal or neural foraminal stenosis. At L4-5 there are postoperative changes and diffuse broad based disc bulge with central extrusion type disc herniation extending inferiorly along the posterior aspect of the L5 vertebrae with ligamentum flavum hypertrophy and facet joint degenerative changes causing moderate canal and bilateral neural foraminal stenosis. There is also moderate canal narrowing at L1-2, L2-3, and L3-4. There were hemangiomas at L2, L3, and L5 vertebral body levels. PLAN Continue with use of CPAP Continue gabapentin 300mg PO BID for neuropathic pain Continue with fall precautions OARRS reviewed at time of refills Patient to follow up with this clinic in 4-6 months or sooner for new or worsening symptoms documented in this encounter [facility] 12-09-2023 History of Present illness Narrative Images from the original note [...] in the morning., Disp: , Rfl: biotin 58581 MCG tablet, 1 (one) time each day [...] of 1 of the Coflex devices., Uday, [facility] ROTATOR CUFF REPAIR Left 2000 anterior stabilization [...] Mood normal. Behavior: Behavior normal. MODIFIER: Q9, [address], [address] Assessment/Plan Diagnoses and all orders for this visit: Type II or unspecified type diabetes mellitus with neurological manifestations, not 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) ([facility]/HCC) Onychomycosis Hallux limitus, left Acquired keratoderma Conservative [...] Preet Enrique DPM documented in this encounter [facility] 07-21-2023 Hospital Discharge instructions Patient Education 07/21/2023 14:08:11 Dietary Guidelines [...] include: ?8 oz (237 mL) of milk, brisoqr-ghaapethqaxq-avbmh milk, and calcium-fortifiedfruit juice. Calcium-fortified means that [...] ?Spinach (cooked), rhubarb, beets, sweet potatoes, and [place] chard. ?Peanuts. ?Potato chips, angolan fries, and baked potatoes with skin on. ?Nuts and nut products. ?Chocolate. If you regularly take a diuretic medicine, make sure to eat at least 1 or 2 servings of fruits or vegetables that are high in potassium each day. These include: ?Avocado. ?Banana. ?Cumberland, prune, carrot, or tomato juice. ?Baked potato. [...] magnesium, fish oil, or vitamin B6. Take wvaj-eqn-izglwow and prescription medicines only as told by [...] Casseroles. Pizza. Lasagna. Frozen meals. Potato chips. German fries. The items listed above may not [...] provider. Document Revised: 06/29/2022 Document Reviewed: 06/29/2022 [employer] Patient Education 2022 [employer]. Follow Up Care 05/19/2023 09:51:24 With:NINA LEVY, Jude Crespo, URL Address: [facility] [address], [place] [address]- When: Unknown [facility] 01-05-2023 Hospital Discharge instructions Patient Education 01/05/2023 11:32:49 Dietary Guidelines [...] include: ?Spinach. ?Rhubarb. ?Beets. ?Potato chips and angolan fries. ?Nuts. If you regularly take a diuretic medicine, make sure to eat at least 1 2 fruits or vegetables high in potassium each day. These include: ?Avocado. ?Banana. ?Cumberland, prune, carrot, or tomato juice. ?Baked potato. [...] Casseroles. Pizza. Lasagna. Frozen meals. Potato chips. German fries. Summary You can reduce your risk [...] 02/12/2012 Document Revised: 02/07/2020 Document Reviewed: 09/28/2017 [employer] Patient Education 2019 [employer]. Follow Up Care 10/07/2022 10:58:19 With:NINA LEVY, Jude Crespo, URL Address: [facility] [address] , [place] [address]- When: Unknown [facility] 09-21-2022 Hospital Discharge instructions Patient Education 09/21/2022 [...] urethra. Follow these instructions at home: Take arjk-qjv-rzpkbte and prescription medicines only as told by [...] 10/18/2006 Document Revised: 09/12/2019 Document Reviewed: 11/22/2017 [employer] Patient Education 2020 [employer]. Follow Up Care 12/22/2021 13:03:04 With:Jude BEACH MD, URL Address: [facility] [address], [place] [address]- When: Unknown [facility] Evaluation + Plan note No data available for this section [facility] Evaluation + Plan note Future Appointments Appointment Date:07/26/2024 01:45:00 PM Scheduled Provider:Jude BEACH MD Location:[facility] Appointment Type:URO Office Visit [facility] Evaluation + Plan note Future Appointments Appointment Date:09/04/2024 12:45:00 PM Scheduled Provider:Jude BEACH MD Location:[facility] Appointment Type:URO Office Visit [facility] Evaluation note No assessment inform ation available [facility] Evaluation note Diagnosis Type II or unspecified type diabetes mellitus with neurological manifestations, not 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) (CMS/[facility])- Primary Type II or unspecified type diabetes mellitus with neurological manifestations, not stated as uncontrolled Onychomycosis Dermatophytosis of nail Hallux limitus, left Acquired keratoderma [facility] Diagnosis Obstructive sleep apnea syndrome- Primary Obstructive sleep apnea (adult) (pediatric) Snoring Other dyspnea and respiratory abnormality Obesity (BMI 30-39.9) Hypersomnia Hypersomnia, unspecified [facility] Diagnosis Polyradiculopathy- Primary Unspecified neuralgia, neuritis, and radiculitis Polyneuropathy Unspecified hereditary and idiopathic peripheral neuropathy [facility] No data available for this section [facility] [place] note No data available for this section [facility] [place] Chief Complaint and Reason for Visit Chief [...] Advance Directives No June 20, 2018 3:31pm Documents on File Type Date Recorded 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 03/29/2024 1:37 PM 07-10 POA Advance Directives and Living Will 03/29/2024 1:37 PM 2013-07-10 Living Wi ll Summary Purpose Additional Source Comments Goals (unrecognized section and content) Goals may be documented in a n alternate section No data available for this section No data available for this section No data available for this sectionGoals may be documented in an alternate section No data available for this section Patient Care team informatio n (unrecognized section and content) Team Status: Active Member Role Status Dates Khoa Bowles MD Primary Care Provider Active Team Status: Inactive Member Role Status Dates Khoa Bowles MD Primary Care Provider Active Olive Hampton PA-C Attending Provider Active Law Clerk Relationship Specialty Start Date End Date Khoa Bowles MD [address] [place] [address] PCP - General Family Medicine 04/08/23 Jude Beach MD [address] [place] [address] Referring Physician Urology 12/09/23 Preet Enrique DPM [address] [place] [address] Referring Physician Podiatry 12/09/23 Law Clerk Relationship Specialty Start Date End Date Khoa Bowles MD [address] [place] [id number] PCP - General Family Medicine 04/08/23 Khoa Bowles MD [address] [place] [address] (Fax) PCP - ACO Reach 12/31/23 Jude Beach MD [address] [place] [address] Referring Physician Urology 12/09/23 Preet Enrique DPM [address] [place] [address] Referring Physician Podiatry 12/09/23 Law Clerk Relationship Specialty Start Date End Date Khoa Bowles MD [address] [place] [address] PCP - General Family Medicine 04/08/23 Khoa Bowles MD [address] [place] [address] PCP - ACO Reach 12/31/23 Jude Beach MD [address] [place] [address] Referring Physician Urology 12/09/23 Preet Enrique DPM [address] [place] [address] Referring Physician Podiatry 12/09/23 Law Clerk Relationship Specialty Start Date End Date Khoa Bowles MD [address] [place] [address] PCP - General Family Medicine 04/08/23 Khoa Bowles MD [address] [place] [address] PCP - ACO Reach 12/31/23 Jude Beach MD [address] [place] [address] Referring Physician Urology 12/09/23 Preet Enrique DPM [address] [place] [address] Referring Physician Podiatry 12/09/23 (unrecognized sect ion and content) No Status Records FoundNo Status Records FoundNo Status Records FoundNo Status Records FoundNo Status Records FoundNo Status Records Found INFORMATION SOURCE (unrecogn ized section and content) DATE CREATED AUTHOR 02/14/2023 [facility] DATE CREATED AUTHOR AUTHOR'S ORGANIZ ATION 02/29/2024 [facility] DATE CREATED AUTHOR AUTHOR'S ORGANIZ ATION 05/21/2024 [facility] DATE CREATED AUTHOR AUTHOR'S ORGANIZ ATION 05/31/2024 [facility] DATE CREATED AUTHOR AUTHOR'S ORGANIZ ATION 07/22/2024 [facility] DATE CREATED AUTHOR AUTHOR'S ORGANIZ ATION 08/10/2024 [facility] Reason for Visit (unrecogniz ed section and content) Reason Comments Nail care Manuel Balderas is a 73 y.o. male. Established pt presents today for diabetic nail care. PCP: Dr. Herbert HERNANDEZ 11/04/2023, A1C: 7.6 (07/27/23),BS: 168 SS: 12). Reason Comments Polyradiculopathy FOR RECORDS PERTAINING TO PATIENTS WHO ARE [...] BE BASED ON THE PRIMARY CLINICAL RECORDS. [employer] provides no warranty or guarantee of the accuracy or completeness of information in this document.
--- NOTE | 2024-08-31 14:55 | XR_ITS ---
The [address] [address] Patient Name: DUARTE ABRAHAM MRN: [id number] date: 1950 Sex: M Assigned Patient Location: LAB Current Patient Location: Accession/Order Number: [id number] Exam Date: 08/31/2024 15:00 Report Date: 09/02/2024 06:56 At the request of: MADISON WOOD Procedure: XR abdomen 1V EXAMINATION: XR abdomen 1V HISTORY: Kidney Stones COMPARISON: XR abdomen 07/15/2023 FINDINGS: KIDNEY/URETER - RIGHT: No visible renal or ureteral calcifications. KIDNEY/URETER - LEFT: No visible renal or ureteral calcifications. PELVIS: No visible ureteral stones. Stable pelvic calcifications favoring phleboliths. BOWEL: No abnormal dilation or deviation. BONES: Multilevel degenerative disc disease. Mechanical fusion of spinous processes of L3-L4. OTHER: Negative. No abnormal gaseous collections. XR/XR abdomen 1V IMPRESSION: 1. No appreciable urinary tract calculi. Electronically authenticated by: KEAGAN HERNANDEZ Date: 09/02/2024 06:56
[2024-08-31 16:09] LABS: Prostate Specific Antigen Dx 5.17 ng/mL (<=4.00)
== END 2024-08-31 14:32 | disposition home or self-care (01) ==
LOC: LAB 14:35
PROVIDERS: PCP Family Medicine; Visit Provider Urology
DX: N20.0 Calculus of kidney (principal); R97.20 Elevated prostate specific antigen [PSA]; Z80.42 Family history of malignant neoplasm of prostate
CPT/HCPCS: 36415; 74018; 84153

== ENCOUNTER 2024-10-26 11:51 | Outpatient (OUT) | payer MEDICARE, SELFPAY ==
--- OUTSIDE RECORDS SUMMARY | 2024-10-26 12:09 | XMS_ITS | CCD ---
Author Organization [facility] Care Team Providers Care House Rn Name Role Phone Khoa Bowles Primary Care Provider Leopoldo Frye Attending Provider Elder Qiu Attending Provider [phone] KHOA BOWLES Primary Care Physician KHOA BOWLES Primary Care Physician Unavail able BEACH ., DR WALLACE Consulting Unavailable HEMEYER ., DR QUINTEROS Primary Care Unavailable BEACH ., DR WALLACE Attending Unavailable BEACH ., DR WALLACE Admitting Unavailable BEACH ., DR WALLACE Consulting Unavailable HEMEYER ., DR QUINTEROS Primary Care Unavailable BEACH ., DR WALLACE Attending Unavailable BEACH ., DR WALLACE Admitting Unavailable YUMIKO TORRES Consulting Unavailable BEACH ., DR WALLACE Consulting Unavailable HEMEYER ., DR QUINTEROS Primary Care Unavailable BEACH ., DR WALLACE Attending Unavailable BEACH ., DR WALLACE Admitting Unavailable ISAK CORTEZ Consulting Unavailable LSIA MCGINNIS Consulting Unavailable SWATI ROE Consulting Unavailable [...] Unavailable BEACH ., DR WALLACE Admitting Unavailable WESTSIDE, DR TALI Jfefries Consulting Unavailable BEACH ., DR WALLACE Consulting Unavailable HEMEYER ., DR QUINTEROS Primary Care Unavailable BEACH ., DR WALLACE Attending Unavailable BEACH ., DR WALLACE Admitting Unavailable MD Khoa Bowles Primary Care Provider [phone] MARIZOL Hampton Attending Provider [phone] Khoa Bowles MD Primary Care Provider Madison Beach MD Unavailable [phone] Haja HARMON, Tiffanie Tariq Unavailable Yaquelin Hampton Attending Unavailable Yaquelin Hampton Admitting Unavailable Hemeyer, Khoa Yanes Primary Care Unavailable LEOLA, MOHAMED F Attending Unavailable HEMEYER, KHOA J Referring Unavailable HEMEYER, EDDEVEN J Primary Care Unavailable LEOLA, MOHAMED F Attending Unavailable HEMEYER, KHOA J Referring Unavailable HEMEYER, EDDEVEN Yanes Primary Care Unavailable HEMEYER, KHOA J Referring Unavailable HEMEYER, EDDEVEN J Primary Care Unavailable LEOLA, MOHAMED F Attending Unavailable HEMEYER, EDDEVEN J Referring Unavailable HEMEYER, EDDEVEN J Primary Care Unavailable LEOLA, MOHAMED F Attending Unavailable LEOLA, MOHAMED F Referring Unavailable HEMEYER, EDDEVEN J Primary Care Unavailable LEOLA, MOHAMED F Attending Unavailable LEOLA, MOHAMED F Referring Unavailable HEMEYER, EDDEVEN J Primary Care Unavailable Khoa Bowles MD Unavailable Khoa Bowles MD Primary Care Provider Khoa Bowles MD Unavailable Madison BEACH Attending Unavailable Madison BEACH R Attending Unavailable Madison BEACH R Attending Unavailable HEMEYER, KHOA Yanes Attending Unavailable TIFFANIE ENRIQUE Attending Unavailable HEMEYER, KHOA J Attending Unavailable HEMEYER, KHOA Yanes Attending Unavailable TIFFANIE ENRIQUE W Attending Unavailable HEMEYER, KHOA Yanes Attending Unavailable YAQUELIN HAMPTON Attending Unavailable HEMESONJA, KHOA Yanes Attending Unavailable TIFFANIE ENRIQUE Attending Unavailable YUMIKO GUZMÁN Attending Unavailable YAQUELIN HAMPTON Attending Unavailable TIFFANIE ENRIQUE Attending Unavailable Khoa Bowles MD Unavailable [phone] Allergies Allergy Classification Reported Allergen(s) Allergy Type Date of Onset Reaction(s) Facility Opioid Agonists (1 source) Meperidine Drug Allergy [address] [facility] (6 sources) Meperidine / Promethazine; Translations: [meperidine-prome thazine] Drug Allergy Unknown (qualifier value) [facility] (20 sources) Meperidine; Translations: [meperidine] Drug Allergy 4 Tremor (finding) [facility] (2 sources) Meperidine Drug Allergy 3 [facility] (2 sources) pioglitazone Drug Allergy 3 [facility] (12 sources) Meperidine Drug Allergy 2 [facility] (12 sources) pioglitazone Drug Allergy 3 Swelling [facility] (1 source) Meperidine Drug Allergy 1 [facility] (1 source) Doxycycline; Translations: [doxycycline] Drug Allergy [facility] Repository Medications Current Medications Medication Drug Class(es) Dates Sig (Normalized) Sig (Original) allopurinol 300 mg oral tablet (19 sources) Xanthine Oxidase Inhibitor Start: 11-09-2018 End: 10-29-2024 take 1 tablet by mouth once daily allopurinol (Zyloprim) 300 MG tablet Indications: Polypharmacy Take 1 tablet (300 mg) by mouth Daily 90 tablet 1 05/02/2024 10/29/2024 Active aspirin 81 mg oral tablet (19 sources) Platelet Aggregation Inhibitor, Nonsteroidal Anti-inflammatory Drug [...] PO Every morning November 23, 2018 9:16am Biotin (15 sources) Start: 09-04-2024 biotin 10,000 mcg, Refills(s) 0 Start Date: 09/04/24 Status: Ordered Start: 11-09-2018 take 38723 ug by noemi th twice daily Biotin Active 04771 MCG PO Twice daily November 09, 2018 3:30pm biotin 09401 MCG tablet 1 (one) time each day [...] Discontinued 10 MG PO Three times daily November 24, 2018 1:56pm April 03, 2021 11:56am dapagliflozin 10 mg oral tablet (13 sources) Sodium-Glucose Cotransporter 2 Inhibitor Start: 05-02-2024 [...] Active doxycycline monohydrate 100 mg oral capsule (19 sources) Tetracycline-class Drug Start: 11-04-2023 End: 10-29-2024 [...] 2018 3:30pm fenofibrate 160 mg oral tablet (13 sources) Peroxisome Proliferator Receptor alpha Agonist Start: [...] Active ferrous sulfate 325 mg oral tablet (14 sources) Start: 11-09-2018 take 1 tablet by mouth once daily Ferrous Sulfate (Iron (Ferrous Sulfate)) 325 mg (65 mg iron) Tablet Active 325 MG PO Daily November 09, 2018 3:30pm gabapentin 300 mg oral capsule (17 sources) Anti-epilept ic Agent Start: 07-21-2023 End: [...] 2018 3:30pm hydroCHLOROthiazide 25 mg oral tablet (17 sources) Thiazide Diuretic Start: 01-11-2023 End: 10-29-2024 [...] day(s), # 90 tab(s), Refills(s) 0, Pharmacy: [id number], 185, cm, 12/22/21 12:11:00 EST, Height/Length Dosing, 136.7, kg, 12/22/21 12:11:00 EST, Weight Dosing Start Date: 10/09/22 Stop Date: 01/07/23 Status: Ordered hydroCHLOROthiazide 12.5 mg / losartan potassium 100 mg oral tablet (15 sources) Thiazide Diuretic, Angiotensin 2 Receptor Dean Start: 09-04-2024 hydrochlorothiazide-losartan 12.5 mg-100 mg oral tablet 1 tab(s), Refill(s) 0 Start Date: 09/04/24 Status: Ordered Start: 05-02-2024 End: 10-29-2024 take 1 tablet [...] ml insulin glargine 100 unt/ml pen injector (13 sources) Insulin Analog Start: 09-04-2024 Basaglar KwikP en 100 units/mL subcutaneous solution See Instructions, Refills(s) 0 Start Date: 09/04/24 Status: Ordered Start: 06-14-2024 insulin glargi ne (Basaglar KwikPen) [...] 100 UNIT/ML 3 mL 0 11/23/2023 Active Lutein (15 sources) Start: 09-04-2024 lutein 20 mg, Refill(s) 0 Start Date: 09/04/24 Status: Ordered Start: 11-09-2018 take 20 mg by mouth once daily Lutein Active 20 MG PO Daily November 09, 2018 3:30pm Lutein 20 MG tab let 1 (one) time each day at the same time. Active metFORMIN hydrochloride 1000 mg oral tablet (15 sources) Biguanide Start: 05-02-2024 End: 10-29-2024 take [...] 3:30pm metoprolol tartrate 50 mg oral tablet (19 sources) beta-Adrenergic Dean Start: 11-09-2018 End: 10-29-2024 take 1 tablet by mouth in the morning metoprolol tartrate (Lopressor) 50 MG tablet Indications: Essential hypertension (CMS/HCC) Take 1 tablet (50 mg) by mouth in the morning and 1 tablet (50 mg) before bedtime. 180 tablet 1 05/02/2024 10/29/2024 Active 24 hr mirabegron 50 mg extended release oral tablet (1 source) beta3-Adrenergic Agonist Start: 09-04-2024 End: 08-30-2025 take 1 tablet by mouth once daily mirabegron 50 mg oral tablet, extended release 50 mg = 1 tab(s), Oral, Daily, X 30 day(s), # 30 tab(s), Refills(s) 11, Pharmacy: [facility]/pharmacy [facility][id number], 185, cm, 09/04/24 13:31:00 EST, Height/Length Dosing, 128, kg, 09/04/24 13:31:00 EST, Weight Dosing Start Date: 09/04/24 Stop Date: 08/30/25 Status: Ordered Multivitamin preparation (2 sources) Start: 04-03-2021 take 1 tablet by mouth once daily Multivitamin Active 1 TAB PO Daily April 03, 2021 11:58am Start: 04-03-2021 take 1 tablet by noemi once daily Multivitamin Active 1 TAB PO [...] 03, 2021 11:57am Prednisone (3 sources) Start: 06-17-2021 Prednisone Act rober 1 dose pk PO [...] days sodium bicarbonate 650 mg oral tablet (19 sources) Start: 11-11-2023 take 3 tablets by mouth twice daily sodium bicarbonate 650 mg Tab 1,950 mg = 3 tab(s), Oral, BID, # 180 tab(s), Refills(s) 11, Pharmacy: [facility]/pharmacy #[id number], 185, cm, 07/21/23 13:37:00 EDT, Height/Length Dosing, 138.2, kg, 07/21/23 13:37:00 EDT, Weight Dosing Start Date: 11/11/23 Status: Ordered Start: 11-08-2022 take 3 tablets by mo [facility] twice daily sodium bicarbonate 650 mg Tab 1,950 mg = 3 tab(s), Oral, BID, # 180 tab(s), Refills(s) 11, Pharmacy: [facility]/pharmacy #[id number], 185, cm, 12/22/21 12:11:00 EST, Height/Length Dosing, 136.7, kg, 12/22/21 12:11:00 EST, Weight Dosing Start Date: 11/08/22 Status: Ordered Start: 11-05-2021 End: 10-31-2022 take 3 tablets by mouth twice daily sodium bicarbonate 650 mg Tab 1,950 mg = 3 tab(s), Oral, BID, X 90 day(s), # 540 tab(s), Refills(s) 3, Pharmacy: [facility]/pharmacy #[id number], 185, cm, 09/15/21 11:40:00 EST, Height/Length Dosing, 137, kg, 09/15/21 11:40:00 EST, Weight Dosing Start Date: 11/05/21 Stop Date: 10/31/22 Status: Ordered Start: 11-09-2018 take 1950 mg by mout h twice daily Sodium Bicarbonate Active 1950 MG PO Twice daily November 09, 2018 3:30pm spironolactone 25 mg oral tablet (13 sources) Aldosterone Antagonist Start: 09-04-2024 spironolactone 25 mg Tab See Instructions, Refills(s) 0 Start Date: 09/04/24 Status: Ordered Start: 05-02-2024 spironolactone (Aldactone) 25 MG tablet Indications: Lymphedema of both lower extremities 2 tablets in Am and 1 tablet in PM 270 tablet 1 05/02/2024 Active Start: 11-04-2023 spironolactone (Aldactone) 25 MG tablet Indications: Lymphedema of both lower extremities 2 tablets in Am and 1 tablet in PM 270 tablet 0 11/04/2023 Active tamsulosin hydrochloride 0.4 mg oral capsule (19 sources) alpha-Adrenergic Dean Start: 01-12-2024 take 1 capsule by mouth once daily tamsulosin 0.4 mg Cap 0.4 mg = 1 cap(s), Oral, Daily, # 90 cap(s), Refills(s) 3, Pharmacy: [facility]/pharmacy #[id number], 185, cm, 07/21/23 13:37:00 EDT, Height/Length Dosing, 138.2, kg, 07/21/23 13:37:00 EDT, Weight Dosing Start Date: 01/12/24 Status: Ordered Start: 11-09-2018 take 1 capsule by mo uth once daily tamsulosin 0.4 mg Cap 0.4 mg = 1 cap(s), Oral, Daily, # 90 cap(s), Refills(s) 3, Pharmacy: [facility]/pharmacy #[id number], 185, cm, 12/22/21 12:11:00 EST, Height/Length Dosing, 136.7, kg, 12/22/21 12:11:00 EST, Weight Dosing Start Date: 12/30/22 Status: Ordered take 1 capsule by mo [...] mg capsule Discontinued 500 MG PO Q8H 15 November 24, 2018 1:56pm April 03, 2021 [...] foot] 12-09-2023 Episodic Chronic ulcer of skin (20 sources) Non-pressure chronic ulcer of other part of left foot limited to breakdown of skin; Translations: [Ulcer of other part of foot] Onset: 1 Resolved: 4 04-12-2023 Chronic Coagulation and hemorrhagic disorders (12 sources) Thrombocytopenic disorder; Translations: [Thrombocytopenia, unspecified] Onset: 3 04-12-2023 Chronic Conduction disorders (12 sources) Right bundle branch block; Translations: [Unspecified right bundle-branch block] Onset: 3 04-12-2023 Chronic Diabetes mellitus with complications (20 sources) Type 2 diabetes mellitus with diabetic polyneuropathy; Translations: [Type 2 diabetes mellitus with other diabetic neurological complication] Onset: 6 Resolved: 4 Chronic Disorders of lipid metabolism (19 sources) Hyperlipidemia; Translations: [Hyperlipidemia, unspecified] Onset: 2 09-18-2019 Chronic Diverticulosis and diverticulitis (12 sources) Diverticulosis of colon; Translations: [Diverticulosis of large intestine without perforation or abscess without bleeding] Onset: 5 04-12-2023 Chronic Essential hypertension (20 sources) Hypertensive disorder; Translations: [Essential (primary) hypertension] Onset: 2 09-18-2019 Chronic Hyperplasia of prostate (20 sources) Benign prostatic hypertrophy with outflow obstruction; Translations: [Benign prostatic hyperplasia with lower urinary tract symptoms] Onset: 6 Chronic Hypertension with complications and secondary hypertension (12 sources) Hypertensive left ventricular hypertrophy; Translations: [Hypertensive heart disease without heart failure] Onset: 3 04-12-2023 Chronic Malaise and fatigue (20 sources) Asthenia; Translations: [Weakness] 04-11-2024 Episodic Mycoses (2 sources) Onychomycosis; Translations: [Tinea unguium] 12-09-2023 Episodic Other aftercare (1 source) long term acute care registered nurse (current) use of anticoagulants; Translations: [[employer]RNT USE ANTICOAGULANTS] Onset: 3 Episodic Other aftercare (1 source) [facility] (current) use of oral hypoglycemic drugs; Translations: [A[employer] G[employer] ASSEM[employer]ER USE ORAL HYPOGLYCEMIC DX] Onset: 3 Episodic Other aftercare (1 source) Other long term acute care registered nurse (current) drug therapy; Translations: [OTH RESIDENTIAL CURRENT DRUG THERAPY] Onset: 3 Episodic Other connective tissue disease (11 sources) Fibromyalgia; Translations: [Fibromyalgia] 04-11-2024 Episodic Other diseases of bladder and urethra (1 source) Detrusor overactivity; Translations: [Overactive bladder] Onset: 4 Chronic Other diseases of bladder and urethra (1 source) Overactive bladder 09-04-2024 Chronic Other diseases of veins and lymphatics (12 sources) Lymphedema of bilateral lower limbs; Translations: [Lymphedema, not elsewhere classified] Onset: 3 04-12-2023 Chronic Other lower respiratory disease (11 sources) Snoring; Translations: [Snoring] Onset: 4 07-26-2024 Episodic Other nervous system disorders (12 sources) Difficulty walking; Translations: [Difficulty in walking, not elsewhere classified] Onset: 3 04-12-2023 Chronic Other nervous system disorders (13 sources) Polyneuropathy; Translations: [Polyneuropathy, unspecified] 04-11-2024 Chronic Other nutritional; endocrine; and metabolic disorders (1 source) Morbid obesity; Translations: [Morbid (severe) obesity due to excess calories] Onset: 3 04-12-2023 Chronic Other nutritional; endocrine; and metabolic disorders (11 sources) Body mass index 30+ - obesity; Translations: [Obesity, unspecified] Onset: 4 07-26-2024 Chronic Other skin disorders (2 sources) Acquired keratoderma; Translations: [Acquired keratosis [keratoderma] palmaris et plantaris] 12-09-2023 Episodic Peripheral and visceral atherosclerosis (11 sources) Peripheral vascular disease; Translations: [Peripheral vascular disease, unspecified] 04-11-2024 Chronic Residual codes; unclassified (12 sources) Dependence on continuous positive airway pressure ventilation; Translations: [Dependence on other enabling machines and devices] Onset: 3 04-12-2023 Chronic Residual codes; unclassified (14 sources) Obstructive sleep apnea syndrome; Translations: [Obstructive sleep apnea (adult) (pediatric)] Onset: 3 04-12-2023 Chronic Residual codes; unclassified (20 sources) Hypersomnia; Translations: [Hypersomnia, unspecified] Onset: 4 07-26-2024 Chronic Residual codes; unclassified (3 sources) Family history of cancer; Translations: [Family [...] Retinal detachments; defects; vascular occlusion; and retinopathy (20 sources) Bilateral age-related nonexudative macular degeneration; Translations: [...] Date Documented Da te Episodic/Chronic Abdominal pain (12 sources) Flank pain; Translations: [Unspecified abdominal pain] Onset: 02-01-2014 07-28-2023 Episodic Calculus of urinary tract (20 sources) Kidney stone; Translations: [Calculus of kidney] Onset: 09-21-2022 Episodic Deficiency and other anemia (12 sources) Iron deficiency anemia secondary to inadequate dietary iron intake; Translations: [Other iron deficiency anemias] Onset: 04-12-2023 04-12-2023 Episodic Diabetes mellitus without complication (18 sources) Diabetes mellitus; Translations: [Type 2 diabetes mellitus without complications] Onset: 01-20-2023 Resolved: 11-04-2023 09-18-2019 Chronic Genitourinary symptoms and ill-defined conditions (20 sources) Nocturia; Translations: [Nocturia] Onset: 09-21-2022 Resolved: 11-04-2023 Episodic Heart valve disorders (12 sources) Heart murmur; Translations: [Cardiac murmur, unspecified] Onset: 04-12-2023 04-12-2023 Episodic Mood disorders (11 sources) Mood disorders Onset: 04-03-2024 04-03-2024 Other acquired deformities (12 sources) Lumbar spondylolisthesis; Translations: [Spondylolisthesis, lumbar region] Onset: 04-12-2023 04-12-2023 Episodic Other aftercare (12 sources) Polypharmacy ; Translations: [Other long-term (current) drug therapy] Onset: 08-05-2021 07-28-2023 Episodic Other connective tissue disease (12 sources) H/O: arthrodesis; Translations: [Arthrodesis status] Onset: 10-02-2020 11-04-2023 Episodic Other connective tissue disease (11 sources) Myalgia caused by statin; Translations: [Myalgia, unspecified site] Onset: 06-07-2024 06-07-2024 Episodic Other diseases of veins and lymphatics (12 sources) Lymphedema; Translations: [Lymphedema, not elsewhere classified] Onset: 07-19-2016 Resolved: 11-04-2023 11-04-2023 Chronic Other diseases of veins and lymphatics (1 source) Stasis dermatitis; Translations: [Venous insufficiency (chronic) (peripheral)] Onset: 04-12-2023 04-12-2023 Episodic Other diseases of veins and lymphatics (12 sources) Peripheral venous insufficiency; Translations: [Venous insufficiency (chronic) (peripheral)] Onset: 08-05-2021 07-28-2023 Episodic Other diseases of veins and lymphatics (11 sources) Disorder of vein of lower extremity; Translations: [Venous insufficiency (chronic) (peripheral)] Onset: 04-12-2023 04-12-2023 Episodic Other nutritional; endocrine; and metabolic disorders (12 sources) Body mass index 40+ - severely obese; Translations: [Body mass index (BMI) 40.0-44.9, adult] Onset: 02-01-2014 Resolved: 11-04-2023 11-04-2023 Chronic Other nutritional; endocrine; and metabolic disorders (12 sources) Obese class II; Translations: [Obesity, unspecified] Onset: 10-02-2020 Resolved: 11-04-2023 11-04-2023 Chronic Other nutritional; endocrine; and metabolic disorders (11 sources) Obesity; Translations: [Obesity, unspecified] Onset: 04-12-2023 Resolved: 04-24-2024 04-24-2024 Chronic Other nutritional; endocrine; and metabolic disorders (1 source) Hyperuricemia without signs of inflammatory arthritis and tophaceous disease; Translations: [HU W/O SIGNS IA AND TOPHACEOUS DZ] Onset: 05-08-2022 Episodic Other nutritional; endocrine; and metabolic disorders (12 sources) Hyperuricemia; Translations: [Hyperuricemia without signs of inflammatory arthritis and tophaceous disease] Onset: 04-12-2023 04-12-2023 Episodic Other screening for suspected conditions (not mental disorders or infectious disease) (20 sources) Raised prostate specific antigen; Translations: [Elevated prostate specific antigen [PSA]] Onset: 09-21-2022 Episodic Phlebitis; thrombophlebitis and thromboembolism (18 sources) Deep venous thrombosis of lower extremity; Translations: [Personal history of other venous thrombosis and embolism] Onset: 01-20-2023 09-18-2019 Episodic Residual codes; unclassified (17 sources) Family history of prostate cancer; Translations: [Family history of malignant neoplasm of prostate] Onset: 07-28-2023 Resolved: 11-04-2023 12-22-2021 Episodic Skin and subcutaneous tissue infections (12 sources) Cellulitis; Translations: [Cellulitis, unspecified] Onset: 04-12-2023 04-12-2023 Episodic Results Test Name Value Interpretation Reference Range Facility Ambulatory Visit Summaryon 1 11-04-2023 Ambulatory Visit Summary Ambulatory Visit Summary MANUEL BALDERAS :1950 Visit Date:09/04/2024 Ambulatory Visit Instructions Your Diagnosis Kidney stones OAB (overactive bladder) Elevated PSA BPH with urinary obstruction Family history of prostate cancer in father Tests Performed XR Abdomen 1 View -- Results Pending -- Please visit your patient portal for your results or contact your primary care physician. Your Care Team Attending Physician - NINA LEVY, Madison Crespo Primary Care Physician - JELENA LEVY, KHOA Yanes This Is Your Medications List allopurinol (allopurinol 300 mg Tab) mirabegron (mirabegron 50 mg oral tablet, extended release) sodium bicarbonate (sodium bicarbonate 650 mg Tab) tamsulosin (tamsulosin 0.4 mg Cap) Contact prescribing physician if questions or concerns aspirin (aspirin 81 mg oral tablet) biotin dapagliflozin (Farxiga 10 mg oral tablet) doxycycline (doxycycline hyclate 100 mg Cap) fenofibrate (fenofibrate 160 mg oral tablet) gabapentin (gabapentin 300 mg Cap) hydrochlorothiazide (hydrochlorothiazide 25 mg Tab) hydrochlorothiazide-los theodora (hydrochlorothiazide-lo sartan 12.5 mg-100 mg oral tablet) insulin glargine (Basaglar KwikPen 100 units/mL subcutaneous solution) lutein metformin (metformin 1000 mg Tab) metoprolol (Metoprolol tartrate 50 mg Tab) spironolactone (spironolactone 25 mg Tab) Procedures Performed ESWL - Extracorporeal shockwave lithotripsy for renal calculus (01/14/2023), Cystoscopy (04/30/2015), Percutaneous nephrolithotomy (02/21/2014), Percutaneous nephrolithotomy (01/23/2014), Dormia basket extraction of ureteric calculus (12/27/2013), Dormia basket extraction of ureteric calculus (11/23/2013), Cystoscopic insertion of ureteric stent (10/26/2013), Cystoscopic removal of ureteric stent (07/01/2004), Dormia basket extraction of ureteric calculus (06/24/2004), Ankle, Back, Capsulotomy of lens, Cataract, Cellulitis, Colonoscopy, History of hernia repair, History of varicose veins, Rotator cuff. Discharge Vitals Heart Rate (Peripheral) 58 Respiratory Rate 18 Blood Pressure 130/71 Height 185 cm Height 73 in Weight 128 kg Weight 281.6 lb BMI 37.4 What to do next Scheduled Follow-Up Appointments Wednesday 10:45 AM EST With: Madison BEACH MD Where: [facility] [address] [place] [address]- You Need to Schedule the Following Appointments Follow Up with Madison BEACH MD, URL When: Where: [facility] [address], [place] [address]- Medications What How Much When Instructions New mirabegron (mirabegron 50 mg oral tablet, extended release) 1 Tablets By Mouth Every day Duration: 30 Days Refills: 11 Pickup at [id number] Unchanged allopurinol (allopurinol 300 mg Tab) 1 Tablets By Mouth Every day Unchanged sodium bicarbonate (sodium bicarbonate 650 mg Tab) 3 Tablets By Mouth 2 times a day Unchanged tamsulosin (tamsulosin 0.4 mg Cap) 1 Capsules By Mouth Every day Unchanged aspirin (aspirin 81 mg oral tablet) By Mouth Every day Contact prescribing physician if questions or concerns Unchanged biotin 10,000 Microgram Contact prescribing physician if questions or concerns Unchanged dapagliflozin (Farxiga 10 mg oral tablet) See instructions Contact prescribing physician if questions or concerns Unchanged doxycycline (doxycycline hyclate 100 mg Cap) By Mouth 2 times a day Contact prescribing physician if questions or concerns Unchanged fenofibrate (fenofibrate 160 mg oral tablet) 1 Tablets Contact prescribing physician if questions or concerns Unchanged gabapentin (gabapentin 300 mg Cap) 1 Capsules By Mouth 2 times a day Contact prescribing physician if questions or concerns Unchanged hydrochlorothiazide (hydrochlorothiazide 25 mg Tab) 1 Tablets Contact prescribing physician if questions or concerns Unchanged hydrochlorothiazide-los theodora (hydrochlorothiazide-lo sartan 12.5 mg-100 mg oral tablet) 1 Tablets Contact prescribing physician if questions or concerns Unchanged insulin glargine (Basaglar KwikPen 100 units/ mL subcutaneous solution) See instructions Contact prescribing physician if questions or concerns Unchanged lutein 20 Milligram Contact prescribing physician if questions or concerns Unchanged metformin (metformin 1000 mg Tab) See instructions Contact prescribing physician if questions or concerns Unchanged metoprolol (Metoprolol tartrate 50 mg Tab) By Mouth 2 times a day Contact prescribing physician if questions or concerns Unchanged spironolactone (spironolactone 25 mg Tab) See instructions Contact prescribing physician if questions or concerns Pharmacy Information [facility][id number]: [address], [place] [id number] [phone] Allergies Demerol (Shakes) Meperidine HCl-Promethazine HCl (Unknown) Problems Ongoing - Any problem that you are currently recei (more content not included)... Normal [facility] Urology Office/Clinic Noteon 09-04-2024 Urology Office/Clinic Note Urology Office/Clinic Note Chief Complaint 1yr f/u HPI Staff 74 yr old male here for 1 yr f/u w/ KUB and PSA. Pt unable to provide urine sample today. DX: BPH with urinary obstruction, elevated PSA, family history of prostate cancer, gross hematuria, nocturia, personal history of kidney stones, proteinuria, renal stone. *Flomax 0.4m QD. PSA done 08/31/24 is 5.17 Dysuria: denies Incomplete bladder emptying: denies Hematuria: denies Frequency: about every 3 hours Urgency: yes Nocturia: yes - goes every 2-3hrs at night Stream: good stream Leaking: only when he feels the urge to urinate Post void dripping: rarely Wearing pads/ Depends: wears depends - usually goes through 4 depends per day Urge incontinence: yes, small amounts Stress incontinence: denies Incontinence without Sensory Awareness: denies Abdominal pain: denies Flank pain: denies Sexual complaints: denies History of Present Illness Tests reviewed: UA, KUB, PSA I have reviewed the previous health record information and history for this patient from Dr. Beach. I have reviewed and verified the staff HPI to be accurate for this encounter. Review of Systems PHQ Score Initial Depression Screen Score: 0 SCORE ROS - Provider Constitutional: denies weight loss, [...] Physical Exam Vitals & Measurements HR: 58(Peripheral) RR: 18 BP: 130/71 HT: 73 in HT: 185 cm WT: 128 kg WT: 281.6 lb BMI: 37.4 General Appearance: alert, no distress, well nourished, well developed male. Assessment/Plan 1. Kidney stones (N20.0: Calculus of [...] small LIP stones. No R sided stones. KUB 08/31/24 TB[facility] - Neg. Taking Allopurinol 300 mg qd, HCTZ 25 mg qd, and Sodium Bicarbonate 1,950 mg bid. Reviewed imaging with pt. -KUB in 1 yr. 2. OAB (overactive bladder) (N32.81: Overactive bladder) Does voice some mild leakage/dribbling with UUI. Does wear depends due to this. Leaks daily, worse at night. Pt interested in starting bladder meds. BP controlled. Follow up 3 mos with PVR or sooner if needed. Pt understands and agrees with plan. -Start Myrbetriq 50 mg ER qd. SEs discussed. Sent to [facility] [place]. 3. Elevated PSA (R97.20: Elevated prostate specific antigen [PSA]) PSA: 09/11/20 - 2.20 & 36.4% 09/11/21 - 4.07 09/09/22 - 4.48 12/31/22 - 4.15 08/31/24 - 5.17 MRI prostate 10/09/21 - Neg. PSA slightly increased, given neg MRI, will cont to monitor. -PSA in 1 yr. If elevated, consider repeat MRI. 4. BPH with urinary obstruction (N40.1: Benign prostatic hyperplasia with lower urinary tract symptoms) Pt unable to provide urine sample today. Taking Flomax 0.4 mg QD. IPSS not completed (6). 5. Family history of prostate cancer in father (Z80.42: Family history of malignant neoplasm of prostate) Cont screening above. Follow-up With When Contact Information NINA LEVY, Madison Crespo, URL [facility] [address], [place] [address]- Additional Instructions: 3 mos with PVR Patient Education Dietary Guidelines to Help Prevent Kidney Stones I, Kenzie Fierro, personally scribed for Dr. Beach on 09/04/2024 14:26:01. . Documentation recorded by the scribe, Kenzie Fierro, accurately reflects the services(s) I performed and decisions made by me. Authenticated by Dr. Beach on 09/04/2024 14:27:17. Problem List/Past Medical History Ongoing BPH with urinary obstruction Deep vein thrombosis (DVT) of left lower extremity Diabetes Elevated PSA Family history of prostate cancer in father Hyperlipidemia Hypertension Kidney stones Nocturia OAB (overactive bladder) Personal history of kidney stones Proteinuria Historical No qualifying data Procedure/Surgical History ESWL - Extracorporeal shockwave lithotripsy for renal calculus (01/14/2023), Cystoscopy (04/30/2015), Percutaneous nephrolithotomy (02/21/2014), Percutaneous nephrolithotomy (01/23/2014), Dormia basket extraction of ureteric calculus (12/27/2013), Dormia basket extraction of ureteric calculus (11/23/2013), Cystoscopic insertion of ureteric stent (10/26/2013), Cystoscopi (more content not included)... Normal [facility] Comment on above: Result Comment: Elec tronically Signed By: Madison BEACH MD\.br\Date and Time Signed: 09/04/24 14:27 EST\.br\Electronically Co-Signed By: Kenzie Fierro\.br\Date and Time Co-Signed: 09/04/24 14:26 EST MHPT PSA, DIAGNOSTICon 08-31 Interpretation and review of laboratory results Abnormal [facility] PROSTATE SPECIFIC ANTIGEN DX 5.17 ng/mL High NINF - 4.00 ng/mL [facility] XR pre/post mri xrayon 08-05 XR pre/post mri xray [facility] [address] MRI Report Signed with Addenda Patient: Manuel Balderas MR#: [id number] : 1950 Acct:[id number] Age/Sex: 73 / M ADM Date: 08/05/23 Loc: [facility] Room: Type: [facility] Attending Dr: Yaquelin Hampton PA-C Copies to: Yaquelin Hampton PA-C Ordering Provider: Yaquelin Hampton PA-C Date of Service: 08/05/23 MR/MR lumbar spine wo con: M54.10 ([id number]) XR/XR pre/post mri xray: LUMBAR MRI ADDENDUM 1 Addendum for newspaper subscription solicitor error: [id number]: Diffuse broad-based disc bulge is present with ligamentum flavum hypertrophy and facet joint degenerative changes causing moderate canal and bilateral neural foraminal stenosis. Impression dictated by: Rickie Cornejo Jr., D.O.09/21/2023 12:23 PM Dictation Location: [facility]-15 Addendum Dictated By: Rickie Cornejo Jr DO Addendum Signed By: 09/21/231222 Addendum Cosigned [...] Cornejo Jr., D.O.08/05/2023 3:00 PM Dictation Location: [facility] Transcribed By: [facility] 08/05/23 1500 Dictated By: Rickie Cornejo Jr, DO 08/05/23 1454 Signed By: 08/05/23 1500 Normal [facility] CITRATE URINE 24HRon 023 Citric Acid, U, 24hr 1042 mg/24 hr Normal 320-1240 [facility] Comment on above: Result Comment: This test was developed and its performance characteristics determined by [facility]. It has not been cleared or approved by the Food and Drug Administration. Performed By: #### C BC #### [facility] [address] [address] [address] [place] Snowden Citric Acid, Urine 731 mg/L Normal Undefined [facility] Comment on above: Performed By: #### C BC #### [facility] [address] [address] [address] Cleveland nSowden OXALATE 24HR URINEon 023 Oxalates, Urine 19 mg/L Normal Undefined [facility] Comment on above: Performed By: #### C BC #### [facility] [address] [address] [address] Cleveland Snowdne Oxalates, Urine 24hr 27 mg/24 hr Normal 7-44 [facility] Comment on above: Performed By: #### C BC #### [facility] [address] [address] [address] [place] Snowden MAGNESIUM 24HR URINEon 02-05 Magnesium 24hr Urine 82.7 mg/24 hr Normal 12.0-293.0 [facility] Comment on above: Performed By: #### C BC #### [facility] [address] [address] [address] [place] Snowden Magnesium UR 5.8 mg/dL Normal Not Estab. [facility] Comment on above: Performed By: #### C BC #### [facility] [address] [id number] [place] Snowden PHOSPHORUS 24HR URINEon Phosphorus, Urine 59.7 mg/dL Normal Not Estab. The [facility] Comment on above: Performed By: #### P T, PTT #### [facility] [address] [address] [address] [place] Snowden Phosphorus, Urine 24hr 851 mg/24 hr Normal 390-1425 [facility] Comment on above: Performed By: #### P T, PTT #### [facility] [address] [place] [address] Dr. [place] Snowden PTH INTACTon 02-05-2023 PTH, Intact 18 pg/mL Normal 15-65 [facility] Comment on above: Performed By: #### P THINT #### [facility] [address] [place] [address] Dr. [place] Snowden URIC ACID 24 HR URINEon Uric Acid, Urine 36.4 mg/dL Normal Not Estab. The [facility] Comment on above: Performed By: #### P T, PTT #### [facility] [address] [place] [address] Dr. [place] Snowden Uric Acid, Urine 24hr 518.7 mg/24 hr Normal 136.1-771.1 [facility] Comment on above: Performed By: #### P T, PTT #### [facility] [address] [place] [address] Dr. [place] Snowden BUNon 02-04-2023 Urea nitrogen [Mass/Vol] 22.0 mg/dL Critically high 7.0-18.0 [facility] Comment on above: Performed By: #### C BC #### [facility] [address] [place] [address] Dr. [place] Snowden CALCIUMon 02-04-2023 Calcium [Mass/Vol] 9.7 mg/dL Normal 8.5-10.1 [facility] Comment on above: Performed By: #### C BC #### [facility] [address] [place] [address] Dr. [place] Snowden CALCIUM 24 HR URINEon 2022 CALC, 24 HR UR 84.1 mg/24 hr Critically low 100.0-300.0 [facility] Comment on above: Performed By: #### C [id number] #### [facility] [address] [place] [address] Dr. [place] Snowden UR CALCIUM 5.9 mg/dL Normal 5.1-21.0 [facility] Comment on above: Performed By: #### C [id number] #### [facility] [address] [place] [address] Dr. [place] Snowden UR TOT VOL 1425 ml/24 HR Normal [facility] Comment on above: Performed By: #### C [id number] #### [facility] [address] [place] [address] Dr. [place] Snowden Performed By: #### C REA24U, NA24U #### [facility] [address] [place] [address] Dr. [place] Snowden Performed By: #### P T, PTT #### [facility] [address] [place] [address] Dr. [place] Snowden CHLORIDEon 02-04-2023 Chloride [Moles/Vol] 107 mmol/L Normal 98-107 [facility] Comment on above: Performed By: #### C BC #### [facility] [address] [place] [address] Dr. [place] Snowden CO2on 02-04-2023 CO2 [Moles/Vol] 33.7 mmol/L Critically high 21.0-32.0 [facility] Comment on above: Performed By: #### A 1C #### [facility] [address] [place] [address] Dr. [place] Snowden CREA 24 HR URINEon 3 CREA, 24 HR UR 1115.21 mg/24 hr Normal 1,000.00- 2,00 0.00 [facility] Comment on above: Performed By: #### P T, PTT #### [facility] [address] [place] [address] Dr. [place] Snowden URINE CREAT 78.26 mg/dL Normal 20.00-300.00 [facility] Comment on above: Performed By: #### P T, PTT #### [facility] [address] [place] [address] Dr. [place] Snowden CREATININEon 02-04-2023 Creatinine [Mass/Vol] 0.91 mg/dL Normal 0.70-1.30 [facility] Comment on above: Performed By: #### A 1C #### [facility] [address] [place] [address] Dr. Cleveladn Snowden EGFR-AF SCOTTISH >60 Normal >=60 [facility] Comment on above: Performed By: #### A 1C #### [facility] [address] [place] [address] Dr. [place] Snowden EGFR-NON AF SCOTTISH >60 Normal >=60 [facility] Comment on above: Performed By: #### A 1C #### [facility] [address] [place] [address] Dr. [place] Snowden NAon 02-04-2023 Sodium [Moles/Vol] 144 mmol/L Normal 136-145 [facility] Comment on above: Performed By: #### C BC #### [facility] [address] [place] [address] Dr. [place] Snowden POTASSIUMon 02-04-2023 Potassium [Moles/Vol] 4.1 mmol/L Normal 3.5-5.1 [facility] Comment on above: Performed By: #### A 1C #### [facility] [address] [place] [address] Dr. [place] Snowden SODIUM 24 HR URINEon 023 NA, 24 HR UR 221 mmol/24 hr Critically high 40-220 [facility] Comment on above: Performed By: #### C REA24U, NA24U #### [facility] [address] [place] [address] Dr. [place] Snowden Sodium (U) [Moles/Vol] 155 mmol/L Critically high 30-90 [facility] Comment on above: Performed By: #### C REA24U, NA24U #### [facility] [address] [place] [address] Dr. [place] Snowden URIC ACID SERUMon 02-04-2023 Urate [Mass/Vol] 4.3 mg/dL Normal 3.5-7.2 [facility] Comment on above: Performed By: #### C BC #### [facility] [address] [place] [address] Dr. [place] Snowden POINT OF CARE GLUCOSEon Glucose [Mass/Vol] 237 mg/dL Critically high 74-106 T [facility] Comment on above: Performed By: #### P T, PTT #### [facility] [address] [place] [address] Dr. [place] Snowden XR KUB 1 VIEWon [...] ISAK CORTEZ Date: 2023-01-14 08:37 Normal [facility] CBC AUTO DIFFon 01-08-2023 BASO # 0.0 103/ul Normal 0.0-0.1 [facility] Comment on above: Performed By: #### C BC #### [facility] [address] [place] [address] Dr. [place] Snowden Basophils/100 WBC (Bld) 0.4 % Normal 0.2-2.0 [facility] Comment on above: Performed By: #### C BC #### [facility] [address] [place] [address] Dr. [place] Snowden EO # 0.2 103/ul Normal 0.0-0.7 [facility] Comment on above: Performed By: #### C BC #### [facility] [address] [place] [address] Dr. [place] Snowden Eosinophils/100 WBC (Bld) 4.4 % Normal 0.9-7.0 [facility] Comment on above: Performed By: #### C BC #### [facility] [address] [place] [address] Dr. [place] Snowden Erythrocyte distribution width (RBC) [Ratio] 14.8 % Normal 11.0-15.0 [facility] Comment on above: Performed By: #### C BC #### [facility] [address] [address] [address] [place] Snowden Hematocrit (Bld) [Volume fraction] 35.7 % Critically low 42.0-54.0 [facility] Comment on above: Performed By: #### C BC #### [facility] [address] [address] [address] [place] Snowden Hemoglobin (Bld) [Mass/Vol] 12.0 g/dL Critically low 14.0-18.0 [facility] Comment on above: Performed By: #### C BC #### [facility] [address] [address] [address] [place] Snowden IG # 0.03 10e3/ul Normal 0.00-0.03 [facility] Comment on above: Performed By: #### C BC #### [facility] [address] [place] [address] Dr. [place] Snowden IG % 0.6 % Critically high 0.0-0.5 [facility] Comment on above: Performed By: #### C BC #### [facility] [address] [place] [address] Dr. [place] Snowden LYMPH # 0.7 103/ul Critically low 1.2-3.8 [facility] Comment on above: Performed By: #### C BC #### [facility] [address] [place] [address] Dr. [place] Snowden Lymphocytes/100 WBC (Bld) 14.4 % Critically low 20.5-60.0 [facility] Comment on above: Performed By: #### C BC #### [facility] [address] [place] [address] Dr. [place] Snowden MANUAL DIFF REQ NO Normal [facility] Comment on above: Performed By: #### C BC #### [facility] [address] [place] [address] Dr. [place] Snowden MCH (RBC) [Entitic mass] 31.1 pg Normal 25.9-34.0 [facility] Comment on above: Performed By: #### C BC #### [facility] [address] [address] [address] [place] Snowden MCHC (RBC) [Mass/Vol] 33.6 g/dL Normal 29.9-35.2 [facility] Comment on above: Performed By: #### C BC #### [facility] [address] [address] [address] [place] Snowden MCV (RBC) [Entitic vol] 92.5 fL Normal 80.0-94.0 [facility] Comment on above: Performed By: #### C BC #### [facility] [address] [address] [address] [place] Snowden MONO # 0.5 103/ul Normal 0.3-0.8 [facility] Comment on above: Performed By: #### C BC #### [facility] [address] [place] [address] Dr. [place] Snowden Monocytes/100 WBC (Bld) 11.0 % Normal 1.7-12.0 [facility] Comment on above: Performed By: #### C BC #### [facility] [address] [place] [address] Dr. [place] Snowden NEUT # 3.3 103/ul Normal 1.4-6.5 [facility] Comment on above: Performed By: #### C BC #### [facility] [address] [place] [address] Dr. [place] Snowden Neutrophils/100 WBC (Bld) 69.2 % Normal 43.0-75.0 [facility] Comment on above: Performed By: #### C BC #### [facility] [address] [place] [address] Dr. [place] Snowden Platelet mean volume (Bld) [Entitic vol] 10.0 fL Normal 9.5-13.5 [facility] Comment on above: Performed By: #### C BC #### [facility] [address] [place] [address] Dr. [place] Snowden PLT 105 103/ul Critically low 150-450 [facility] Comment on above: Performed By: #### C BC #### [facility] [address] [address] [address] [place] Snowden RBC 3.86 106/ul Critically low 4.70-6.10 [facility] Comment on above: Performed By: #### C BC #### [facility] [address] [place] [address] Dr. [place] Snowden WBC 4.8 103/ul Normal 4.0-11.0 [facility] Comment on above: Performed By: #### C BC #### [facility] [address] [address] [address] [place] Snowden PROF CHEM 8 (BAS METB)on Anion gap [Moles/Vol] 12.7 mmol/L Normal [facility] Comment on above: Performed By: #### C BC #### [facility] [address] [place] [address] Dr. [place] Snowden Calcium [Mass/Vol] 9.6 mg/dL Normal 8.5-10.1 [facility] Comment on above: Performed By: #### C BC #### [facility] [address] [place] [address] Dr. [place] Snowden Chloride [Moles/Vol] 107 mmol/L Normal 98-107 [facility] Comment on above: Performed By: #### C BC #### [facility] [address] [place] [address] Dr. [place] Snowden CO2 [Moles/Vol] 29.0 mmol/L Normal 21.0-32.[address] [facility] Comment on above: Performed By: #### C BC #### [facility] [address] [place] [address] Dr. [place] Snowden Creatinine [Mass/Vol] 0.76 mg/dL Normal 0.70-1.30 [facility] Comment on above: Performed By: #### C BC #### [facility] [address] [place] [address] Dr. [place] Snowden EGFR-AF SCOTTISH >60 Normal >=[address] [facility] Comment on above: Performed By: #### C BC #### [facility] [address] [place] [address] Dr. [place] Snowden EGFR-NON AF SCOTTISH >60 Normal >=60 [facility] Comment on above: Performed By: #### C BC #### [facility] [address] [address] [address] [place] Snowden Glucose [Mass/Vol] 127 mg/dL Critically high 74-106 [facility] Comment on above: Performed By: #### C BC #### [facility] [address] [address] [address] [place] Snowden Potassium [Moles/Vol] 3.7 mmol/L Normal 3.5-5.1 [facility] Comment on above: Performed By: #### C BC #### [facility] [address] [address] [address] [place] Snowden Sodium [Moles/Vol] 145 mmol/L Normal 136-145 [facility] Comment on above: Performed By: #### C BC #### [facility] [address] [address] [address] [place] Snowden Urea nitrogen [Mass/Vol] 21.0 mg/dL Critically high 7.0-18.0 [facility] Comment on above: Performed By: #### C BC #### [facility] [address] [address] [address] [place] Snowden Urea nitrogen/Creatinine [Mass ratio] 27.6 mg/mg Normal [facility] Comment on above: Performed By: #### C BC #### [facility] [address] [address] [address] [place] Snowden PROTIMEon 01-08-2023 INR Coag (PPP) [Relative time] 1.04 {INR} Normal [facility] Comment on above: Performed By: #### P T, PTT #### [facility] [address] [address] [address] [place] Snowden INR GUIDELINES SEE BELOW Normal [facility] Comment on above: Result Comment: ASHTYN RED INR: 2.0 - 3.0 CONDITIONS NOT LISTED BELOW 2.5 - 3.5 FOR PROSTHETIC HEART VALVE REPLACEMENT 2.5 - 3.5 RECURRENT THROMBOSIS Performed By: #### P T, PTT #### [facility] [address] [address] [address] [place] Snowden PT Coag (PPP) [Time] 11.0 s Normal 9.0-11.6 [facility] Comment on above: Performed By: #### P T, PTT #### [facility] [address] [place] [address] Dr. [place] Snowden PTTon 01-08-2023 aPTT Coag (Bld) [Time] 29.6 s Normal 22.3-36.2 [facility] Comment on above: Performed By: #### P T, PTT #### [facility] [address] [place] [address] Dr. [place] Snowden XR KUB 1 VIEWon [...] TALI ISRAEL Date: 2023-01-01 16:46 Normal [facility] GLYCOHEMOGLOBIN A1Con 2022 ADA RECOMMENDATION SEE BELOW Normal [facility] Comment on above: Result Comment: ADA RECOMMENDED LIMIT 4.0 - 6.0 ADA THERAPEUTIC TARGET < 7.0 ACTION SUGGESTED > 7.0 Performed By: #### A 1C #### [facility] [address] [place] [address] Dr. [place] Snowden Glucose [Mass/Vol] 126 mg/dL Normal [facility] Comment on above: Performed By: #### A 1C #### [facility] [address] [place] [address] Dr. [place] Snowden HbA1c (Bld) [Mass fraction] 6.0 % Normal 4.5-6.2 [facility] Comment on above: Performed By: #### A 1C #### [facility] [address] [place] [address] Dr. [place] Snowden XR KUB 1 VIEWon [...] TALI ISRAEL Date: 2022-09-09 15:01 Normal [facility] GLYCOHEMOGLOBIN A1Con 2021 ADA RECOMMENDATION SEE BELOW Normal [facility] Comment on above: Result Comment: ADA RECOMMENDED LIMIT 4.0 - 6.0 ADA THERAPEUTIC TARGET < 7.0 ACTION SUGGESTED > 7.0 Performed By: #### A 1C #### [facility] [address] [place] [address] Dr. [place] Snowden Glucose [Mass/Vol] 131 mg/dL Normal [facility] Comment on above: Performed By: #### A 1C #### [facility] [address] [place] [address] Dr. [place] Snowden HbA1c (Bld) [Mass fraction] 6.2 % Normal 4.5-6.2 [facility] Comment on above: Performed By: #### A 1C #### [facility] [address] [place] [address] Dr. [place] Snowden LIPID PROFILEon 08-06-2022 CHOL-HDL RATIO NORM SEE BELOW Normal [facility] Comment on above: Result Comment: 3.3 - 4.4 LOW RISK 4.4 - 7.1 AVERAGE RISK 7.1 - 11.0 MODERATE RISK >11.0 HIGH RISK Performed By: #### A 1C #### [facility] [address] [place] [address] Dr. Cleveland Snowden Cholesterol [Mass/Vol] 108 mg/dL Normal <=200 [facility] Comment on above: Performed By: #### A 1C #### [facility] [address] [address] [address] Cleveland Snowden Cholesterol in HDL [Mass/Vol] 36 mg/dL Critically low 40-60 [facility] Comment on above: Performed By: #### A 1C #### [facility] [address] [address] [address] Cleveland Snowden Cholesterol in LDL [Mass/Vol] 45.0 mg/dL Normal [facility] Comment on above: Performed By: #### A 1C #### [facility] [address] [address] [address] Cleveland Snowden Cholesterol.total/C holesterol in HDL [Mass ratio] 3.0 {ratio} Normal [facility] Comment on above: Performed By: #### A 1C #### [facility] [address] [address] [address] Cleveland Snowden HDL NORMAL > or = 60 mg/dl - LO W CARDIOVASCULAR RISK <40 mg/dl - HIGH CARDIOVASCULAR RISK Normal [facility] Comment on above: Performed By: #### A 1C #### [facility] [address] [address] [address] Cleveland Snowden LDL CALC NORMAL SEE BELOW Normal [facility] Comment on above: Result Comment: <100 mg/dl OPTIMAL 100 - 129 mg/dl NEAR OR ABOVE OPTIMAL 130 - 159 mg/dl BORDERLINE HIGH 160 - 189 mg/dl HIGH >190 mg/dl VERY HIGH Performed By: #### A 1C #### [facility] [address] [address] [address] Cleveland Snowden Triglyceride [Mass/Vol] 135 mg/dL Normal <=150 [facility] Comment on above: Performed By: #### A 1C #### [facility] [address] [address] [address] Cleveland Snowden VLDL CALC 27.0 mg/dL Normal [facility] Comment on above: Performed By: #### A 1C #### [facility] [address] [address] [address] Cleveland Snowden GLYCOHEMOGLOBIN A1Con 2021 ADA RECOMMENDATION SEE BELOW Normal [facility] Comment on above: Result Comment: ADA RECOMMENDED LIMIT 4.0 - 6.0 ADA THERAPEUTIC TARGET < 7.0 ACTION SUGGESTED > 7.0 Performed By: #### A 1C #### [facility] [address] [place] [address] Dr. Cleveland Snowden Glucose [Mass/Vol] 154 mg/dL Normal [facility] Comment on above: Performed By: #### A 1C #### [facility] [address] [place] [address] Dr. Cleveland Snowden HbA1c (Bld) [Mass fraction] 7.0 % Critically high 4.5-6.2 [facility] Comment on above: Performed By: #### A 1C #### [facility] [address] [place] [address] Dr. Cleveland Snowden LIPID PROFILEon 05-05-2022 CHOL-HDL RATIO NORM SEE BELOW Normal [facility] Comment on above: Result Comment: 3.3 - 4.4 LOW RISK 4.4 - 7.1 AVERAGE RISK 7.1 - 11.0 MODERATE RISK >11.0 HIGH RISK Performed By: #### P T, PTT #### [facility] [address] [place] [address] Dr. Cleveland Snowden Cholesterol [Mass/Vol] 104 mg/dL Normal <=200 [facility] Comment on above: Performed By: #### P T, PTT #### [facility] [address] [place] [address] Dr. Cleveland Snowden Cholesterol in HDL [Mass/Vol] 24 mg/dL Critically low 40-60 [facility] Comment on above: Performed By: #### P T, PTT #### [facility] [address] [place] [address] Dr. Cleveland Snowden Cholesterol in LDL [Mass/Vol] 28.0 mg/dL Normal [facility] Comment on above: Performed By: #### P T, PTT #### [facility] [address] [place] [address] Dr. Cleveland Snowden Cholesterol.total/C holesterol in HDL [Mass ratio] 4.3 {ratio} Normal [facility] Comment on above: Performed By: #### P T, PTT #### [facility] [address] [address] [address] Cleveland Snowden HDL NORMAL > or = 60 mg/dl - LO W CARDIOVASCULAR RISK <40 mg/dl - HIGH CARDIOVASCULAR RISK Normal [facility] Comment on above: Performed By: #### P T, PTT #### [facility] [address] [address] [address] Cleveland Snowden LDL CALC NORMAL SEE BELOW Normal [facility] Comment on above: Result Comment: <100 mg/dl OPTIMAL 100 - 129 mg/dl NEAR OR ABOVE OPTIMAL 130 - 159 mg/dl BORDERLINE HIGH 160 - 189 mg/dl HIGH >190 mg/dl VERY HIGH Performed By: #### P T, PTT #### [facility] [address] [place] [address] Dr. Cleveland Snowden Triglyceride [Mass/Vol] 260 mg/dL Critically high <=150 [facility] Comment on above: Performed By: #### P T, PTT #### [facility] [address] [place] [address] Dr. Cleveland Snowden VLDL CALC 52.0 mg/dL Normal [facility] Comment on above: Performed By: #### P T, PTT #### [facility] [address] [place] [address] Dr. Cleveland Snowden PROF 14(COMP METB)on 022 Albumin [Mass/Vol] 3.5 g/dL Normal 3.4-5.0 [facility] Comment on above: Performed By: #### P T, PTT #### [facility] [address] [place] [address] Dr. Cleveland Snowden Albumin/Globulin [Mass ratio] 1.1 {ratio} Normal [facility] Comment on above: Performed By: #### P T, PTT #### [facility] [address] [place] [address] Dr. Cleveland Snowden ALP [Catalytic activity/Vol] 59 U/L Normal 46-116 [facility] Comment on above: Performed By: #### P T, PTT #### [facility] [address] [place] [address] Dr. Cleveland Snowden ALT [Catalytic activity/Vol] 46 U/L Normal 16-63 [facility] Comment on above: Performed By: #### P T, PTT #### [facility] [address] [place] [address] Dr. Cleveland Snowden Anion gap [Moles/Vol] 14.7 mmol/L Normal [facility] Comment on above: Performed By: #### P T, PTT #### [facility] [address] [place] [address] Dr. Cleveland Snowden AST [Catalytic activity/Vol] 46 U/L Critically high 15-37 [facility] Comment on above: Performed By: #### P T, PTT #### [facility] [address] [place] [address] Dr. Cleveland Snowden Bilirubin [Mass/Vol] 0.5 mg/dL Normal 0.2-1.0 [facility] Comment on above: Performed By: #### P T, PTT #### [facility] [address] [place] [address] Dr. Cleveland Snowden Calcium [Mass/Vol] 9.5 mg/dL Normal 8.5-10.1 [facility] Comment on above: Performed By: #### P T, PTT #### [facility] [address] [place] [address] Dr. Cleveland Snowden Chloride [Moles/Vol] 103 mmol/L Normal 98-107 [facility] Comment on above: Performed By: #### P T, PTT #### [facility] [address] [place] [address] Dr. Cleveland [place] CO2 [Moles/Vol] 28.1 mmol/L Normal 21.0-32.[address] [facility] Comment on above: Performed By: #### P T, PTT #### [facility] [address] [place] [address] Dr. Cleveland Snowden Creatinine [Mass/Vol] 0.84 mg/dL Normal 0.70-1.30 [facility] Comment on above: Performed By: #### P T, PTT #### [facility] [address] [place] [address] Dr. Cleveland Snowden EGFR-AF SCOTTISH >60 Normal >=60 [facility] Comment on above: Performed By: #### P T, PTT #### [facility] [address] [address] [address] Cleveland Snowden EGFR-NON AF SCOTTISH >60 Normal >=60 [facility] Comment on above: Performed By: #### P T, PTT #### [facility] [address] [address] [address] Cleveland Snowden Globulin (S) [Mass/Vol] 3.1 g/dL Normal [facility] Comment on above: Performed By: #### P T, PTT #### [facility] [address] [address] [address] Cleveland Snowden Glucose [Mass/Vol] 176 mg/dL Critically high 74-106 [facility] Comment on above: Performed By: #### P T, PTT #### [facility] [address] [address] [address] Cleveland Snowden Potassium [Moles/Vol] 3.8 mmol/L Normal 3.5-5.1 [facility] Comment on above: Performed By: #### P T, PTT #### [facility] [address] [address] [address] Cleveland Snowden Protein [Mass/Vol] 6.6 g/dL Normal 6.4-8.2 [facility] Comment on above: Performed By: #### P T, PTT #### [facility] [address] [address] [address] Cleveland Snowden Sodium [Moles/Vol] 142 mmol/L Normal 136-145 [facility] Comment on above: Performed By: #### P T, PTT #### [facility] [address] [address] [address] Cleveland Snowden Urea nitrogen [Mass/Vol] 24.0 mg/dL Critically high 7.0-18.0 [facility] Comment on above: Performed By: #### P T, PTT #### [facility] [address] [address] [address] Cleveland Snowden Urea nitrogen/Creatinine [Mass ratio] 28.6 mg/mg Normal [facility] Comment on above: Performed By: #### P T, PTT #### [facility] [address] [place], [place] [address] Dr. Cleveland Snowden URIC ACID SERUMon 05-05-2022 Urate [Mass/Vol] 6.2 mg/dL Normal 3.5-7.[address] [facility] Comment on above: Performed By: #### P T, PTT #### [facility] [address] [place], [place] [address] Dr. Cleveland Snowden Basophils Auto (Bld) [#/Vol] on 04-03-2021 Basophils (Bld) [#/Vol] 0.0 10*3/uL 0.0-0.2 [facility] Basophils/100 WBC Auto (Bld) on 04-03-2021 Basophils/100 WBC (Bld) 0.6 % [facility] Blood hemoglobin measurement (mass/volume)on 04-03-2021 Hemoglobin (Bld) [Mass/Vol] 12.2 g/dL 13.0-17.0 [facility] Blood leukocytes automated c ount (number/volume)on 04-03-2021 WBC (Bld) [#/Vol] 4.7 10*3/uL 4.5-11.0 [facility] Creatinine and Glomerular fi ltration rate.predicted panel (S/P/Bld)on 04-03-2021 Creatinine [Mass/Vol] 0.68 mg/dL 0.64-1.27 [facility] Eosinophils Auto (Bld) [#/Vo l]on 04-03-2021 Eosinophils (Bld) [#/Vol] 0.1 10*3/uL 0.0-0.45 [facility] Eosinophils/100 WBC Auto (Bl d)on 04-03-2021 Eosinophils/100 WBC (Bld) 3.1 % [facility] Erythrocyte distribution wid th Auto (RBC) [Ratio]on 04-03-2021 Erythrocyte distribution width (RBC) [Ratio] 15.0 % 12.0-14.8 [facility] Estimated glomerular filtrat ion rate (GFR) non- Americanon 04-03-2021 GFR/1.73 sq M.predicted among non-blacks MDRD (S/P/Bld) [Vol rate/Area] > 60 mL/Min [facility] Hematocrit Auto (Bld) [Volum e fraction]on 04-03-2021 Hematocrit (Bld) [Volume fraction] 36.2 % 38.8-50.0 [facility] Laboratory - Hematology and Cell countson 04-03-2021 Nucleated RBC/100 WBC (Bld) [Ratio] 0.2 % 0-0.5 [facility] Lymphocytes Auto (Bld) [#/Vo l]on 04-03-2021 Lymphocytes (Bld) [#/Vol] 0.7 10*3/uL 1.00-4.8 [facility] Lymphocytes/100 WBC Auto (Bl d)on 04-03-2021 Lymphocytes/100 WBC (Bld) 14.5 % [facility] MCH Auto (RBC) [Entitic mass ]on 04-03-2021 MCH (RBC) [Entitic mass] 31.3 pg 27.5-35.2 [facility] MCHC Auto (RBC) [Mass/Vol]on 04-03-2021 MCHC (RBC) [Mass/Vol] 33.8 g/dL 32.5-35.6 [facility] MCV Auto (RBC) [Entitic vol] on 04-03-2021 MCV (RBC) [Entitic vol] 92.6 fL 83.5-101 [facility] Monocytes Auto (Bld) [#/Vol] on 04-03-2021 Monocytes (Bld) [#/Vol] 0.5 10*3/uL 0.0-0.8 [facility] Monocytes/100 WBC Auto (Bld) on 04-03-2021 Monocytes/100 WBC (Bld) 10.7 % [facility] Neutrophils Auto (Bld) [#/Vo l]on 04-03-2021 Neutrophils (Bld) [#/Vol] 3.3 10*3/uL 1.8-7.7 [facility] Neutrophils/100 WBC Auto (Bl d)on 04-03-2021 Neutrophils/100 WBC (Bld) 71.1 % [facility] No Panel Informationon 04-03 Estimated GFR () > 60 mL/Min [facility] Comment on above: GFR estimated refere nce range: According to KDOQI guidelines, <60 ml/min/1.73m2 is sufficient to diagnose a patient with chronic kidney disease. Pharmacy Creatinine Clearance (Chem N/A [facility] Platelet mean volume Auto (B ld) [Entitic vol]on 04-03-2021 Platelet mean volume (Bld) [Entitic vol] 8.5 fL 6.6-10.1 [facility] Platelets Auto (Bld) [#/Vol] on 04-03-2021 Platelets (Bld) [#/Vol] 137 10*3/uL 150-450 [facility] RBC Auto (Bld) [#/Vol]on RBC (Bld) [#/Vol] 3.91 10*6/uL 3.90-5.60 [facility] Serum or plasma calcium edu urement (mass/volume)on 04-03-2021 Calcium [Mass/Vol] 9.8 mg/dL 8.2-10.2 [facility] Serum or plasma chloride merlyn surement (moles/volume)on 04-03-2021 Chloride [Moles/Vol] 100 mmol/L 95-114 [facility] Serum or plasma glucose edu urement (mass/volume)on 04-03-2021 Glucose [Mass/Vol] 184 mg/dL 70-100 [facility] Comment on above: ADA recommended refe rence rangeRandom Glucose Reference Range is dependent on time and content of last meal. Glucose of more than 200 mg/dL in a nonstressed, ambulatory subject supports the diagnosis of Diabetes Mellitus. Serum or plasma potassium me asurement (moles/volume)on 04-03-2021 Potassium [Moles/Vol] 3.6 mmol/L 3.5-5.1 [facility] Serum or plasma sodium measu rement (moles/volume)on 04-03-2021 Sodium [Moles/Vol] 138 mmol/L 136-146 [facility] Serum or plasma total carbon dioxide measurement (moles/volume)on 04-03-2021 CO2 [Moles/Vol] 26.3 mmol/L 22.0-30.0 [facility] Serum or plasma urea nitroge n measurement (mass/volume)on 04-03-2021 Urea nitrogen [Mass/Vol] 17 mg/dL 9-23 [facility] Basophils Auto (Bld) [#/Vol] on 02-11-2021 Basophils (Bld) [#/Vol] 0.0 10*3/uL 0.0-0.2 [facility] Basophils/100 WBC Auto (Bld) on 02-11-2021 Basophils/100 WBC (Bld) 0.6 % [facility] Blood hemoglobin measurement (mass/volume)on 02-11-2021 Hemoglobin (Bld) [Mass/Vol] 12.6 g/dL 13.0-17.0 [facility] Blood leukocytes automated c ount (number/volume)on 02-11-2021 WBC (Bld) [#/Vol] 4.4 10*3/uL 4.5-11.0 [facility] Eosinophils Auto (Bld) [#/Vo l]on 02-11-2021 Eosinophils (Bld) [#/Vol] 0.2 10*3/uL 0.0-0.45 [facility] Eosinophils/100 WBC Auto (Bl d)on 02-11-2021 Eosinophils/100 WBC (Bld) 3.8 % [facility] Erythrocyte distribution wid th Auto (RBC) [Ratio]on 02-11-2021 Erythrocyte distribution width (RBC) [Ratio] 14.9 % 12.0-14.8 [facility] Hematocrit Auto (Bld) [Volum e fraction]on 02-11-2021 Hematocrit (Bld) [Volume fraction] 36.1 % 38.8-50.0 [facility] Laboratory - Hematology and Cell countson 02-11-2021 Nucleated RBC/100 WBC (Bld) [Ratio] 0.1 % 0-0.5 [facility] Lymphocytes Auto (Bld) [#/Vo l]on 02-11-2021 Lymphocytes (Bld) [#/Vol] 0.7 10*3/uL 1.00-4.8 [facility] Lymphocytes/100 WBC Auto (Bl d)on 02-11-2021 Lymphocytes/100 WBC (Bld) 15.4 % [facility] MCH Auto (RBC) [Entitic mass ]on 02-11-2021 MCH (RBC) [Entitic mass] 32.5 pg 27.5-35.2 [facility] MCHC Auto (RBC) [Mass/Vol]on 02-11-2021 MCHC (RBC) [Mass/Vol] 34.8 g/dL 32.5-35.6 [facility] MCV Auto (RBC) [Entitic vol] on 02-11-2021 MCV (RBC) [Entitic vol] 93.3 fL 83.5-101 [facility] Monocytes Auto (Bld) [#/Vol] on 02-11-2021 Monocytes (Bld) [#/Vol] 0.5 10*3/uL 0.0-0.8 [facility] Monocytes/100 WBC Auto (Bld) on 02-11-2021 Monocytes/100 WBC (Bld) 12.1 % [facility] Neutrophils Auto (Bld) [#/Vo l]on 02-11-2021 Neutrophils (Bld) [#/Vol] 3.0 10*3/uL 1.8-7.7 [facility] Neutrophils/100 WBC Auto (Bl d)on 02-11-2021 Neutrophils/100 WBC (Bld) 68.1 % [facility] Platelet mean volume Auto (B ld) [Entitic vol]on 02-11-2021 Platelet mean volume (Bld) [Entitic vol] 8.2 fL 6.6-10.1 [facility] Platelets Auto (Bld) [#/Vol] on 02-11-2021 Platelets (Bld) [#/Vol] 118 10*3/uL 150-450 [facility] RBC Auto (Bld) [#/Vol]on RBC (Bld) [#/Vol] 3.87 10*6/uL 3.90-5.60 [facility] Creatinine (Bld) [Mass/Vol]o n 01-10-2021 Creatinine [Mass/Vol] 0.7 mg/dL 0.6-1.3 [facility] Comment on above: ER/ESD physician is notified/shown all ISTAT results.Critical values may be confirmed by laboratory testing ifdeemed necessary by ER attending doctor. No Panel Informationon 01-10 POC Estimated GFR > 60 [facility] Comment on above: GFR estimated refere nce range: According to KDOQI guidelines, <60 ml/min/1.73m2 is sufficient to diagnose a patient with chronic kidney disease. POC Estimated GFR Non- Amer > 60 [facility] Vital Signs Date Time Vital Sign Value Performing Clinician Facility 09-14-2024 14:55-0500 Body height 185.4 cm Tiffanieabhishek DAMONM Work Phone: [facility] 09-14-2024 14:55-0500 Body mass index (BMI) [Ratio] 37.07 kg/m2 Tiffanie Haja DPM Work Phone: [facility] 09-14-2024 14:55-0500 Body weight 127.46 kg Tiffanie Haja DPM Work Phone: [facility] 09-04-2024 13:06-0500 Blood Pressure Location [place] [facility] 09-04-2024 13:06-0500 Diastolic blood pressure 71 mm[Hg] [place] [facility] 09-04-2024 13:06-0500 Heart rate 58 /min [place] [facility] 09-04-2024 13:06-0500 Respiratory rate 18 /min [place] [facility] 09-04-2024 13:06-0500 Systolic blood pressure 130 mm[Hg] [place] [facility] 08-08-2024 12:34-0400 Body height 185.4 cm Yaquelin MULLINS Work Phone: [facility] 08-08-2024 12:34-0400 Body mass index (BMI) [Ratio] 37.07 kg/m2 Yaquelin Hampton PA Work Phone: [facility] 08-08-2024 12:34-0400 Body weight 127.46 kg Yaquelin Hampton PA Work Phone: [facility] 08-08-2024 12:34-0400 Diastolic blood pressure 84 mm[Hg] Yaquelin Hampton PA Work Phone: [facility] 08-08-2024 12:34-0400 Heart rate 52 /min Yaquelin Hampton PA Work Phone: [facility] 08-08-2024 12:34-0400 Respiratory rate 16 /min Yaquelin Hampton PA Work Phone: [facility] 08-08-2024 12:34-0400 SaO2% (BldA) [Mass fraction] 99 % Yaquelin Hampton PA Work Phone: [facility] 08-08-2024 12:34-0400 Systolic blood pressure 130 mm[Hg] Yaquelin Hampton PA Work Phone: [facility] 07-26-2024 15:43-0400 Body height 185.4 cm Yumiko Guzmán PEN TESTER Work Phone: [facility] 07-26-2024 15:43-0400 Body mass index (BMI) [Ratio] 37.34 kg/m2 Yumiko Wellsr PEN TESTER Work Phone: [facility] 07-26-2024 15:43-0400 Body weight 128.37 kg Yumikoelian Wellsr PEN TESTER Work Phone: [facility] 07-26-2024 15:43-0400 Diastolic blood pressure 80 mm[Hg] Yumiko Wellsr PEN TESTER Work Phone: [facility] 07-26-2024 15:43-0400 Heart rate 69 /min Yumiko Wellsr PEN TESTER Work Phone: [facility] 07-26-2024 15:43-0400 SaO2% (BldA) [Mass fraction] 97 % Yumiko Wellsr PEN TESTER Work Phone: [facility] 07-26-2024 15:43-0400 Systolic blood pressure 132 mm[Hg] Yumiko Arielle PEN TESTER Work Phone: [facility] 12-09-2023 11:01-0500 Body height 190.5 cm Tiffanie Enrique DPM Work Phone: [facility] 12-09-2023 11:01-0500 Body mass index (BMI) [Ratio] 36.87 kg/m2 Tiffanie Haja DPM Work Phone: [facility] 12-09-2023 11:01-0500 Body weight 133.81 kg Tiffanie Enrique DPM Work Phone: [facility] 07-21-2023 13:32-0400 Blood Pressure Location [place] [facility] 07-21-2023 13:32-0400 Diastolic blood pressure 64 mm[Hg] [place] [facility] 07-21-2023 13:32-0400 Heart rate 54 /min [place] [facility] 07-21-2023 13:32-0400 Systolic blood pressure 117 mm[Hg] [place] [facility] 01-05-2023 10:47-0500 Blood Pressure Location [place] [facility] 01-05-2023 10:47-0500 Diastolic blood pressure 93 mm[Hg] [place] [facility] 01-05-2023 10:47-0500 Heart rate 58 /min [place] [facility] 01-05-2023 10:47-0500 Systolic blood pressure 152 mm[Hg] [place] [facility] Encounters Encounter Date Encounter Type Care Provider Facility Start: 12-18-2024 ambulatory [place] [facility] Start: 10-16-2024 End: 10-17-2024 Jolly Bowles MD Work Phone: [facility] Comment on above: Diabetic nephropathy associated with type 2 diabetes mellitus (HCC) ([facility]/HCC) Start: 09-14-2024 End: 09-14-2024 Patient encounter procedure Tiffanie Enrique DPM Work Phone: [facility] Comment on above: 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, not 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) ([facility]) (Primary Dx); Onychomycosis; Acquired keratoderma Start: 09-14-2024 End: 09-14-2024 ambulatory TIFFANIE ENRIQUE Not Available Start: 09-14-2024 End: 09-14-2024 Bamboo flowsheet Tiffanie Enrique DPM Work Phone: [facility] Start: 09-14-2024 End: 09-14-2024 Bamboo flowsheet Tiffanie Enrique DPM Work Phone: [facility] Start: 09-04-2024 End: 09-04-2024 ambulatory [place] Facility:[facility] Start: 09-04-2024 End: 09-04-2024 Patient encounter procedure [place] [facility] Start: 08-31-2024 End: 08-31-2024 Clinisync Result Encounter Generic External Data Provider [facility] External Department Unsolicited Start: 08-31-2024 End: 08-31-2024 Clinisync Result Encounter Generic External Data Provider [facility] External Department Unsolicited Start: 08-08-2024 End: 08-08-2024 Bamboo flowsheet Yaquelin Hampton PA Work Phone: [facility] Start: 08-08-2024 End: 08-08-2024 Bamboo flowsheet Yaquelin Hampton PA Work Phone: [facility] Start: 08-08-2024 End: 08-08-2024 Office outpatient visit 15 minutes Yaquelin Hampton PA Work Phone: [facility] Comment on above: Polyradiculopathy (P rimary Dx); Polyneuropathy Start: 08-08-2024 End: 08-08-2024 ambulatory YAQUELIN HAMPTON Not Available Start: 07-26-2024 End: 07-26-2024 Office outpatient visit 25 minutes Yumiko Guzmán PEN TESTER Work Phone: [facility] [address] [facility] Comment on above: Obstructive sleep ap rohith syndrome (Primary Dx); Snoring; Obesity (BMI 30-39.9); Hypersomnia Start: 07-26-2024 End: 07-26-2024 ambulatory YUMIKO GUZMÁN Not Available Start: 07-26-2024 End: 07-26-2024 Bamboo flowsheet Yumiko Guzmán PEN TESTER [facility] [address] [address] Start: 07-26-2024 End: 07-26-2024 Bamboo flowsheet Yumiko Guzmán PEN TESTER Work Phone: [facility] [address] Start: 07-26-2024 End: 07-26-2024 ambulatory [place] Facility:[facility] Start: 07-26-2024 End: 07-26-2024 Patient encounter procedure [place] [facility] Start: 07-24-2024 End: 07-24-2024 Telephone encounter Khoa Bowles MD Work Phone: [facility] Comment on above: Care Coordination Start: 06-15-2024 End: 06-15-2024 ambulatory TIFFANIE ENRIQUE Not Available Start: 05-29-2024 End: 05-29-2024 ambulatory [facility] Start: 05-18-2024 End: 05-18-2024 ambulatory [facility] Start: 05-15-2024 End: 05-15-2024 ambulatory [facility] Start: 05-02-2024 End: 05-02-2024 ambulatory KHOA BOWLES Not Available Start: 04-11-2024 End: 04-11-2024 ambulatory YAQUELIN HAMPTON Not Available Start: 04-03-2024 End: 04-03-2024 ambulatory KHOA BOWLES Not Available Start: 2024 ambulatory KHOA BOWLES [facility] Start: 03-14-2024 End: 03-14-2024 ambulatory TIFFANIE ENRIQUE Not Available Start: 03-09-2024 End: 03-09-2024 ambulatory [facility] Start: 02-14-2024 End: 02-14-2024 ambulatory KHOA BOWLES Not Available Start: 02-03-2024 End: 02-03-2024 ambulatory KHOA BOWLES Not Available Start: 12-09-2023 End: 12-09-2023 Patient encounter procedure Tiffanie Enrique DPM Work Phone: [facility] Comment on above: 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, not 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) (CMS/FORMERLY [facility]) (Primary Dx); Onychomycosis; Hallux limitus, left; Acquired keratoderma Start: 12-09-2023 End: 12-09-2023 ambulatory TIFFANIE ENRIQUE Not Available Start: 11-04-2023 End: 11-04-2023 ambulatory KHOA BOWLES Not Available Start: 08-05-2023 End: 08-05-2023 ambulatory Yaquelin Hampton Facility:[facility] Start: 08-05-2023 End: 08-05-2023 ambulatory MD Khoa Bowles Work Phone: [facility] Work Phone: Start: 08-05-2023 End: 08-05-2023 Patient encounter procedure MD Khoa Bowles Work Phone: [facility] [address] Work Phone: Start: 07-21-2023 End: 07-21-2023 Patient encounter procedure [place] [facility] Start: 07-16-[address] KHOA CASILLAS . Facility:[facility] Start: 02-04-2023 End: 02-05-[address] [place] . Facility:[facility] Start: 01-14-2023 End: 01-14-[address] [place] . Facility:[facility] Start: 01-12-2023 Encounter for other preprocedural examination DR [place] . [facility] Start: 01-12-2023 Encounter for prepro cedural cardiovascular examination DR [place] . [facility] Start: 01-12-2023 Encounter for prepro cedural laboratory examination DR [place] . [facility] Start: 01-08-2023 End: 01-09-[address] [place] . Facility:[facility] Start: 01-08-2023 End: 01-09-2023 Encounter for preprocedural laboratory examination DR [place] . Facility:[facility] Start: 01-05-2023 End: 01-05-2023 Patient encounter procedure [place] [facility] Start: 12-31-2022 End: 01-01-[address] KHOA BOWLES . Facility:[facility] Start: 11-02-[address] KHOA CASILLAS . Facility:[facility] Start: 09-21-2022 End: 09-21-2022 Patient encounter procedure [place] [facility] Start: 09-09-2022 End: 09-10-[address] [place] . Facility:[facility] Start: 08-06-2022 End: 08-07-[address] KHOA BOWLES . Facility:[facility] Start: 05-05-2022 End: 05-06-[address] KHOA BOWLES . Facility:[facility] Start: 04-03-2021 End: 04-03-2021 Patient encounter procedure Khoa Bowles Work Phone: -Pre-Surgical Testing Start: 02-11-2021 End: 02-11-2021 Patient encounter procedure Khoa Bowles Work Phone: -Lab [facility] Start: 01-10-2021 End: 01-10-2021 Patient encounter procedure Khoa Bowles Work Phone: -MRI [address] Procedures Date Procedure Procedure Detail Performing Clinician Start: 08-31-2024 MHPT PSA, DIAGNOSTIC [employer] External Data Provider Start: 08-05-2023 XR pre/post mri xray MD Khoa Bowles Work Phone: Start: 08-05-2023 MR lumbar spine wo con MD Khoa Bowles Work Phone: Start: 01-14-2023 Extracorporeal shock wave lithotripsy of calculus of kidney [place] Start: 12-31-[address] [place] . Comment on above: Performed By: #### P T, PTT #### [facility] [address] [address] [address] [place] Snowden Start: 09-09-[address] [place] . Comment on above: Performed By: #### P SAD #### [facility] [address] [address] [address] [place] Snowden Start: 01-10-2021 MRI of lumbar spine with contrast Khoa Bowles Work Phone: Start: 01-10-2021 X-ray of lumbar spin e, four views Khoa Bowles Work Phone: Start: 06-17-2016 Colonoscopy Tiffanie Cl gema DPM Work Phone: Start: 04-30-2015 Cystoscopy [place] Start: 02-21-2014 Removal of calculus of renal pelvis through percutaneous nephrostomy [place] Start: 01-23-2014 Removal of calculus of renal pelvis through percutaneous nephrostomy [place] Start: 12-27-2013 Cystoscopic extracti on of ureteric calculus without disintegration [place] Start: 11-23-2013 Cystoscopic extracti on of ureteric calculus without disintegration [place] Start: 10-26-2013 Cystoscopic insertio n of ureteric stent [place] Start: 07-01-2004 Cystoscopic removal of ureteric stent [place] Start: 06-24-2004 Cystoscopic extracti on of ureteric calculus without disintegration [place] Ankle region structu re (body structure) [place] Back structure, excl uding neck (body structure) [place] Capsulotomy of lens [place] Cataract (disorder) [place] Cellulitis (disorder) [place] Colonoscopy [place] History of - varicos e veins (context-dependent category) [place] History of hernia repair [place] Rotator cuff includi ng muscles and tendons (body structure) [place] Plan of Treatment Date Care Activity Detail Author Start: 06-17-2026 Screening for malign ant neoplasm of colon [facility] Start: 02-24-2026 Glaucoma screening Diabetes: R etinopathy Screening [facility] Start: 07-24-2025 End: 07-24-2025 Patient encounter procedure 07/24/2025 2:15 PM EDT Office Visit [facility] [place] [address] [place] [address] Shani Mohan DO [address] [place] [address] [facility] [place] [address] Start: 04-03-2025 Medicare Annual Wellness (AWV) Medicare Annual Wellness (AWV) [facility] Start: 01-22-2025 End: 01-22-2025 Patient encounter procedure 01/22/2025 12:40 PM EDT Office Visit [facility] [address] [place] [address] Yaquelin Hampton PA [address] [place], [place] [id number] [facility] Start: 12-28-2024 End: 12-28-2024 Patient encounter procedure 12/28/2024 2:00 PM EST Procedure Visit [facility] [address] [place] [id number] Tiffanie Enrique, DPM [address] [place] [address] [facility] Start: 10-31-2024 End: 10-31-2024 Patient encounter procedure [facility] Start: 09-14-2024 End: 09-14-2024 Patient encounter procedure 09/14/2024 3:00 PM EST Procedure Visit [facility] [address] [place] [address] Tiffanie Enrique, DPM [address] [place] [address] [facility] Start: 08-08-2024 End: 08-08-2024 Patient encounter procedure [facility] Comment on above: Arrived Start: 07-26-2024 End: 07-26-2024 Patient encounter procedure [facility] [place] [address] Comment on above: Arrived Start: 07-02-2024 Influenza vaccination Influenza Vacc ine (#1) [facility] Start: 06-08-2024 Glaucoma screening Diabetes: R etinopathy Screening [facility] Start: 03-09-2024 End: 03-09-2024 Patient encounter procedure 03/09/2024 1:00 PM EDT Procedure Visit [facility] [address] [place] [id number] Tiffanie Enrique DPM [address] [place] [address] [facility] Start: 02-23-2024 Medicare Annual Wellness (AWV) Medicare Annual Wellness (AWV) [facility] Start: 02-03-2024 End: 02-03-2024 Patient encounter procedure 02/03/2024 11:30 AM EDT Office Visit [facility] [address] [place] [address] Khoa Bowles MD [address] [place] [address] [facility] Start: 01-18-2024 Hemoglobin A1c measurement Diabetes: Hemoglobin A1C [facility] Start: 01-09-2024 Urine screening for protein Diabetes: Urine Protein Screening [facility] Start: 11-18-2022 Urine screening for protein Diabetes: Urine Protein Screening [facility] Start: 1950 Screening for malign ant neoplasm of colon [facility] Immunizations Immunization Date Immunization Notes Care Provider Fa cili 10-14-2023 Influenza, Seasonal, Quadrivalent, Adjuvanted Tiffanie Enrique DPWei Work Phone: [facility] 10-14-2023 influenza virus vacc ine, unspecified formulation Khoa Bowles MD Work Phone: [facility] 09-09-2022 SARS-CoV-2 (COVID-19 ) [id number] [place] [facility] 09-03-2022 influenza virus vacc ine, unspecified formulation [place] [facility] 09-03-2022 Influenza, High-dose Seasonal, Quadrivalent, Preservative Free Tiffanie Haja DPM Work Phone: [facility] 09-26-2021 SARS-CoV-2 (COVID-19 ) mRNA-1273 vaccine [place] [facility] 09-25-2021 Moderna SARS-CoV-2 Booster Vaccination Tiffanie Haja DPM Work Phone: [facility] 08-22-2021 influenza virus vacc ine, unspecified formulation [place] [facility] 08-22-2021 Influenza, Seasonal, Quadrivalent, Adjuvanted Tiffanie Haja DPM Work Phone: [facility] 08-20-2021 influenza virus vacc ine, unspecified formulation [place] [facility] 01-25-2021 COVID-19 mRNA-1273 (Moderna) Khoa Bowles Work Phone: [facility] 01-25-2021 SARS-CoV-2 (COVID-19 ) Ad26 vaccine, recombinant [place] [facility] 12-31-2020 pneumococcal conjuga te vaccine, 13 valent Khoa Bowles MD Work Phone: [facility] 12-28-2020 COVID-19 mRNA-1273 (Moderna) Khoa Bowles Work Phone: [facility] Comment on above: Result Comment: 2022: [id number] 08-06-2020 influenza virus vacc ine, unspecified formulation [place] [facility] 08-06-2020 Influenza, Seasonal, Quadrivalent, Adjuvanted Tiffanie Enrique DPM Work Phone: [facility] 09-04-2019 influenza virus vacc ine, unspecified formulation [place] [facility] 09-04-2019 influenza, high dose seasonal, preservative-free Tiffanie Enrique DPM Work Phone: [facility] 08-19-2018 influenza virus vacc ine, unspecified formulation [place] [facility] 08-19-2018 influenza, high dose seasonal, preservative-free Tiffanie Enrique DPM Work Phone: [facility] 09-06-2017 influenza virus vacc ine, unspecified formulation [place] [facility] 09-06-2017 influenza, high dose seasonal, preservative-free Tiffanie Enrique DPM Work Phone: [facility] 09-06-2017 pneumococcal polysaccharide vaccine, 23 valent [place] [facility] 08-18-2017 influenza virus vacc ine, unspecified formulation [place] [facility] 08-17-2016 influenza virus vacc ine, unspecified formulation [place] [facility] 08-17-2016 influenza, high dose seasonal, preservative-free Tiffanie Enrique DPM Work Phone: [facility] 08-17-2016 pneumococcal conjuga te vaccine, 13 valent [place] [facility] 08-22-2015 zoster vaccine, live [place] [facility] 08-17-2015 influenza, seasonal, injectable, preservative free Tiffanie Enrique DPM Work Phone: [facility] 07-27-2013 influenza virus vacc ine, unspecified formulation [place] [facility] 02-22-2012 pneumococcal polysaccharide vaccine, 23 valent Tiffanie Enrique DPM Work Phone: [facility] 07-20-2009 pneumococcal polysaccharide vaccine, 23 valent [place] [facility] Payers Date Payer Category Payer Medicare [id number] 2016 Medicare [id number] 2016 Private Health Insurance [id number] 2015 Medicare [id number] 1959 Medicare [id number] 1959 Private Health Insurance [facility] [id number] 1959 Self-pay [id number] 1950 Unknown [id number] 2.16.84 0.1.146074.3.579.2.59 1950 Unknown [id number] .16.84 0.1.689224.3.579.2.593 1950 Unknown [id number] .16.84 0.1.450447.3.579.2.593 1950 Unknown [id number] 2.16.84 0.1.118828.3.579.2.593 1950 Unknown [id number] 2.16.84 0.1.029382.3.579.2.593 1950 Unknown [id number] 2.16.84 0.1.538995.3.579.2.593 1950 Unknown [id number] 2.16.84 0.1.152195.3.579.2.593 1950 Unknown [id number] 2.16.84 0.1.185394.3.579.2.593 1950 Unknown [id number] 2.16.84 0.1.353382.3.579.2.593 1950 Unknown [id number] 2.16.84 0.1.753646.3.579.2.593 1950 Unknown [id number] 2.16.8 40.1.575475.3.579.2.1286 1950 Unknown [id number] 2.16.8 40.1.185610.3.579.2.1286 1950 Unknown [id number] 2.16.8 40.1.958713.3.579.2.1286 1950 Unknown [id number] 2.16.8 40.1.766914.3.579.2.1286 1950 Unknown [id number] 2.16.8 40.1.519439.3.579.2.1286 1950 Unknown [id number] 2.16.8 40.1.869100.3.579.2.1286 1950 Unknown [id number] 2.16.8 40.1.440922.3.579.2.727 1950 Unknown [id number] 2.16.8 40.1.137318.3.579.2.727 1950 Unknown [id number] 2.16.8 40.1.703268.3.579.2.727 1950 Unknown [id number] 2.16.84 0.1.154924.3.579.2.1259 1950 Unknown [id number] 2.16.84 0.1.794687.3.579.2.1258 1950 Unknown [id number] 2.16.84 0.1.219909.3.579.2.9 1950 Unknown [id number] 2.16.84 0.1.294541.3.579.2.1258 1950 Unknown [id number] 2.16.84 0.1.710023.3.579.2.1258 1950 Unknown [id number] 2.16.84 0.1.079963.3.579.2.1258 1950 Unknown [id number] 2.16.84 0.1.087063.3.579.2.9 1950 Unknown [id number] 2.16.84 0.1.835570.3.579.2.125 1950 Unknown [id number] 2.16.84 0.1.544178.3.579.2.1258 1950 Unknown [id number] 2.16.84 0.1.559858.3.579.2.1258 1950 Unknown [id number] 2.16.84 0.1.751863.3.579.2.1258 1950 Unknown [id number] 2.16.840 .1.781643.3.579.2.1259 Unknown [id number] Unknown [id number] 2.16.8 40.1.828139.3.579.2.531 Social History Date Type Detail Facility Start: 04-03-2021 End: 06-02-2023 Tobacco smoking status NDIS Never smoked tobacco (finding) [facility] Start: 1950 Sex Assigned At Male [facility] Tobacco smoking status Never [facility] Start: 12-09-2023 End: 04-03-2024 Sex Assigned At Male [facility] Start: 12-09-2023 End: 06-15-2024 Alcohol intake Lifetime non-drinker (finding) [facility] Start: 12-09-2023 End: 04-03-2024 History of Social function [facility] Start: 04-14-2023 Alcohol Comment Caffeine intake: non e [facility] Start: 1950 Sex Assigned At Not on file [facility] Medical Equipment Procedure Code Equipment Code Equipment Origin al Text Equipment Identifier Dates Discectomy, lumbar COFLEX SIZE 10 FDA art: 11-23-2018 Discectomy, lumbar COFLEX SIZE 14 [facility] art: 11-23-2018 Discectomy, lumbar COFLEX SIZE 14 [facility] art: 11-23-2018 Discectomy, lumbar COFLEX SIZE 10 [facility] art: 11-23-2018 1 each by In Vit ro route in the morning. Take before meals. [id number] Start: 08-02-2023 End: 07-27-2024 1 Units in the morning. Take before meals. Accucheck soft clix. [id number] Start: 11-10-2023 End: 11-04-2024 Injection subcutaneous [id number] Start: 11-11-2023 Use for Injectio n subcutaneous twice daily [id number] Start: 07-24-2024 Injection subcutaneous [id number] Start: 06-01-2024 End: 07-24-2024 Functional Status Date Assessment Result Facility 09-04-2024 Functional Status N/A [facility] 07-21-2023 Functional Status N/A [facility] 01-05-2023 Functional Status N/A [facility] Clinical Notes 09-21-2022 to 09-14-2024 Tiffanie Enrique DPM - 09/14/2024 3:00 PM SUSANNA Vega - 08/08/2024 12:40 PM EDTTelephone Encounter - Khoa Bowles MD - 07/24/2024 4:13 PM Ari Enrique DPM - 12/09/2023 11:00 AM EST Note Date & Type Note Facility 09-14-2024 History of Present illness Narrative Images from the original note were not included. Subjective Patient ID: Manuel Balderas is a 74 y.o. male who presents for DM Foot Care (PCP: Dr. Bowles 05/02/24, A1C: 6.6, BS: 131, SS: 12). Patient presents requesting nail debridement. He states the nails are thick, elongated, fungal. He is also requesting callus debridement. The left hallux has not reopened into an ulceration. Review of Systems Current Outpatient Medications: allopurinol (Zyloprim) 300 MG tablet, Take 1 tablet (300 mg) by mouth Daily, Disp: 90 tablet, Rfl: 1 aspirin 81 MG EC tablet, Take 81 mg by mouth in the morning., Disp: , Rfl: biotin 05668 MCG tablet, 1 (one) time each day at the same time., Disp: , Rfl: dapagliflozin (Farxiga) 10 MG, Take 1 tablet (10 mg) by mouth Daily, Disp: 90 tablet, Rfl: 1 doxycycline (Monodox) 100 MG capsule, Take 1 capsule (100 mg) by mouth in the morning., Disp: 90 capsule, Rfl: 3 fenofibrate (Triglide) 160 MG tablet, Take 1 tablet (160 mg) by mouth Daily, Disp: 90 tablet, Rfl: 1 ferrous sulfate 325 (65 Fe) MG tablet, Take 325 mg by mouth in the morning. Take with meals., Disp: , Rfl: Flomax 0.4 MG 24 hr capsule, Take 0.4 mg by mouth in the evening., Disp: , Rfl: gabapentin (Neurontin) 300 MG capsule, Take 1 capsule (300 mg) by mouth in the morning and 1 capsule (300 mg) before bedtime., Disp: 180 capsule, Rfl: 0 hydroCHLOROthiazide (HYDRODiuril) 25 MG tablet, Take 1 tablet (25 mg) by mouth in the evening, Disp: 90 tablet, Rfl: 1 insulin glargine (Basaglar KwikPen) 100 UNIT/ML pen, Inject bid, sliding blood glucose scale with the coverage: <70, zero and eat. 70-150, 10 units. 151-200, 14 units. 201-250, 16 units. 251-300, 18 units. >300, 20 units, Disp: 3 mL, Rfl: 1 losartan-hydroCHLOROthiazide (Hyzaar) 100-12.5 MG tablet, Take 1 tablet by mouth Daily, Disp: 90 tablet, Rfl: 1 Lutein 20 MG tablet, 1 (one) time each day at the same time., Disp: , Rfl: metFORMIN (Glucophage) 1000 MG tablet, Take 1 tablet (1,000 mg) by mouth in the morning and 1 tablet (1,000 mg) in the evening. Take with meals., Disp: 180 tablet, Rfl: 1 metoprolol tartrate (Lopressor) 50 MG tablet, Take 1 tablet (50 mg) by mouth in the morning and 1 tablet (50 mg) before bedtime., Disp: 180 tablet, Rfl: 1 pen needle 32G x 6 mm misc, Use for Injection subcutaneous twice daily, Disp: 200 each, Rfl: 3 sodium bicarbonate 650 MG tablet, Take 3 tablets by mouth in the morning and 3 tablets before bedtime., Disp: , Rfl: spironolactone (Aldactone) 25 MG tablet, 2 tablets in Am and 1 tablet in PM, Disp: 270 tablet, Rfl: 1 Meperidine, Meperidine hcl, and Pioglitazone Past Surgical History: Procedure Laterality Date ANKLE [...] of 1 of the Coflex devices., [place], [facility] ROTATOR CUFF REPAIR Left 2000 anterior stabilization [...] chronic brawny edema. HYPERKERATOSIS: Plantar HIPJ L. Thick diffuse callus noted WB surface of L heel NAIL PATHOLOGY:R hallux has been permanently removed with small remaining mycotic medial nail spicule. Nails 3 and 4 on the right with superficial white fungus. Nail 1 L is 4mm thick, brown crumbly debris, brittle elongated, mycotic, lysed from lateral nail bed. Nail 4 L is 4mm thick, incurvated, fungal. SKIN PATHOLOGY: texture, turgor, of skin is [...] Mood normal. Behavior: Behavior normal. MODIFIER: Q9, [address], [address]67 Assessment/Plan ICD-10-CM 1. Type II or unspecified type diabetes mellitus with neurological manifestations, not 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) (CMS/FORMERLY [facility]) E11.49 2. Onychomycosis B35.1 3. Acquired keratoderma L85.1 All nails debrided, the mycotic toenails and dystrophic toenails reduced. The nails are debrided in thickness and length. Any redundant tissue in the margins were curetted in an effort to reduce pain and pressure. All nails were debrided with large and small nail nippers, and power burring implemented to remove residual rough edges. With this treatment the patient relates relief of symptomatology. Shoes inspected and good foot hygiene discussed. Patient advised to call if condition exacerbates or issues arise Callus at L hallux and L WB surface of heel were debrided by me with #15 blade. This note was created with the assistance of a speech recognition program. While intending to generate a timely document that accurately reflects the content of the visit, no guarantee can be provided that every grammatical or spelling mistake has been or will be identified or corrected. Thank you for your understanding. Tiffanie Enrique DPM documented in this encounter [facility] 09-04-2024 Hospital Discharge instructions Patient Education 09/04/2024 14:19:12 Dietary Guidelines to Help Prevent Kidney Stones Dietary Guidelines to Help Prevent Kidney Stones Kidney stones are deposits of minerals and salts that form inside your kidneys. Your risk of developing kidney stones may be greater depending on your diet, your lifestyle, the medicines you take, and whether you have certain medical conditions. Most people can lower their risks of developing kidney stones by following these dietary guidelines. Your dietitian may give you more specific [...] include: ?8 oz (237 mL) of milk, rglbyqj-hijkwapakwss-bebvq milk, and calcium-fortifiedfruit juice. Calcium-fortified means that [...] table and allow each person to add their own salt to taste. Use vegetable protein, [...] fish, or seafood. ?When you prepare animal proteins, cut pieces into small portion sizes. For [...] ?Have two kinds of vegetables at dinner. You may be told to limit foods that are high in a substance called oxalate. These include: ?Spinach (cooked), rhubarb, beets, sweet potatoes, and Cuban chard. ?Peanuts. ?Potato chips, [place] of [place] fries, and baked potatoes with skin on. ?Nuts and nut products. ?Chocolate. If you regularly take a diuretic medicine, make sure to eat at least 1 or 2 servings of fruits or vegetables that are high in potassium each day. These include: ?Avocado. ?Banana. ?[place], prune, carrot, or tomato juice. ?Baked potato. ?Cabbage. ?Beans and split peas. Lifestyle Drink enough fluid to keep your urine pale yellow. This is the most important thing you can do. Spread your fluid intake throughout the day. If you drink alcohol: ?Limit how much you have to: ?0 1 drink a day for women who are not . ?0 2 drinks a day for men. ?Know how much alcohol is in your drink. [...] of your kidney stones, you may be told: ?Do not take high-dose supplements of vitamin C (1,000 mg a day or more). ?To take a calcium supplement. ?To take a daily probiotic supplement. ?To take other supplements such as magnesium, fish oil, or vitamin B6. Take jels-gda-rxqxzrc and prescription medicines only as told by [...] sausages, meat loaves, and hot dogs. Dairy Cheeses. Beverages Regular soft drinks. Regular vegetable juice. Seasonings and condiments Seasoning blends with salt. Salad dressings. Soy sauce. Ketchup. Barbecue sauce. Other foods Canned soups. Canned pasta sauce. Casseroles. Pizza. Lasagna. Frozen meals. Potato chips. Croatian fries. The items listed above may not [...] with your health care provider. Document Revised: 01/28/2023 Document Reviewed: 01/28/2023 [employer] Patient Education 2023 Dydra. Follow Up Care 07/20/2024 10:51:39 With:NINA LEVY, Madison Crespo, URL Address: [facility] [address] , [place] [address]- When: Unknown [facility] 09-04-2024 Note Patient Education Nephrology Dietary Guidelines to Help Prevent Kidney Stones Kidney stones are deposits of minerals and salts that form inside your kidneys. Your risk of developing kidney stones may be greater depending on your diet, your lifestyle, the medicines you take, and whether you have certain medical conditions. Most people can lower their risks of developing kidney stones by following these dietary guidelines. Your dietitian may give you more specific instructions depending on your overall health and the type of kidney stones you tend to develop. What are tips for following this plan? Reading food labels ??? Choose foods with no salt added or low-salt labels. Limit your salt (sodium) intake to less than 1,500 mg a day. ??? Choose foods with calcium for each meal and snack. Try to eat about 300 mg of calcium at each meal. Foods that contain 200?500 mg of calcium a serving include: ? 8 oz (237 mL) of milk, kyoojls-rprqvwermrql-kkiex milk, and calcium-fortifiedfruit juice. Calcium-fortified means that [...] much calcium is recommended for you. Shopping ??? Buy plenty of fresh fruits and vegetables. Most people do not need to avoid fruits and vegetables, even if these foods contain nutrients that may contribute to kidney stones. ??? When shopping for convenience foods, choose: ? Whole pieces of fruit. ? Pre-made salads with dressing on the side. ? Low-fat fruit and yogurt smoothies. ??? Avoid buying frozen meals or prepared deli foods. These can be high in sodium. ??? Look for foods with live cultures, such as yogurt and kefir. ??? Choose high-fiber grains, such as whole-wheat breads, oat bran, and wheat cereals. Cooking ??? Do not add salt to food when cooking. Place a salt shaker on the table and allow each person to add their own salt to taste. ??? Use vegetable protein, such as beans, textured vegetable protein (TVP), or tofu, instead of meat in pasta, casseroles, and soups. Meal planning ??? Eat less salt, if told by your dietitian. To do this: ? Avoid eating processed or pre-made food. ? Avoid eating fast food. ??? Eat less animal protein, including cheese, meat, poultry, or fish, if told by your dietitian. To do this: ? Limit the number of times you have meat, poultry, fish, or cheese each week. Eat a diet free of meat at least 2 days a week. ? Eat only one serving each day of meat, poultry, fish, or seafood. ? When you prepare animal proteins, cut pieces into small portion sizes. For most meat and fish, one serving is about the size of the palm of your hand. ??? Eat at least five servings of fresh fruits and vegetables each day. To do this: ? Keep fruits and vegetables on hand for snacks. ? Eat one piece of fruit or a handful of berries with breakfast. ? Have a salad and fruit at lunch. ? Have two kinds of vegetables at dinner. ??? You may be told to limit foods that are high in a substance called oxalate. These include: ? Spinach (cooked), rhubarb, beets, sweet potatoes, and Cuban chard. ? Peanuts. ? Potato chips, citizen of [place] fries, and baked potatoes with skin on. ? Nuts and nut products. ? Chocolate. ??? If you regularly take a diuretic medicine, make sure to eat at least 1 or 2 servings of fruits or vegetables that are high in potassium each day. These include: ? Avocado. ? Banana. ? [place], prune, carrot, or tomato juice. ? Baked potato. ? Cabbage. ? Beans and split peas. Lifestyle ??? Drink enough fluid to keep your urine pale yellow. This is the most important thing you can do. Spread your fluid intake throughout the day. ??? If you drink alcohol: ? Limit how much you have to: ? 0?1 drink a day for women who are not . ? 0?2 drinks a day for men. ? Know how much alcohol is in your drink. In the [place] one drink equals one 12 oz bottle of beer (355 mL), one 5 oz glass of wine (148 mL), or one 1? oz glass of hard liquor (44 mL). ??? Lose weight if told by your health care provider. Work with your dietitian to find an eating plan and weight loss strategies that work best for you. General information ??? Talk to your health care provider and dietitian about taking daily supplements. Depending on your health and the cause of your kidney stones, you may be told: ? Do not take high-dose supplements of vitamin C (1,000 mg a day or more). ? To take a calcium supplement. ? To take a daily probiotic supplement. ? To take other supplements such as magnesium, fish oil, or vitamin B6. ??? Take rlqk-lfy-xhzrjck and prescription medicines only as told by your health (more content not included)... [facility] 08-08-2024 History of Present illness Narrative Subjective Manuel Balderas is a 74 y.o. 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 (CMS/HCC) Degenerative disc disease, lumbar Diabetes (CMS/HCC) Diabetes mellitus (CMS/HCC) without mention of complication, type II or unspecified type, uncontrolled Disorder of lipoid metabolism (CMS/HCC) unspecified Diverticulosis of colon without hemorrhage Essential hypertension (CMS/HCC) unspecified Facet arthritis of lumbar region Fibromyalgia Hyperlipidemia (CMS/HCC) Hypertension (CMS/HCC) Iron deficiency anemia refractory to iron therapy Kidney calculi Kidney stones Malaise and fatigue Microalbuminuric diabetic nephropathy (CMS/HCC) Morbid obesity (CMS/HCC) Neuropathy Polyneuropathy with improvement with gabapentin. he cannot walk for long distances due to fatigue and weakness and is afraid of falling. He is having some balance difficulty possibly due to the gabapentin and will decrease med to see if there is improvement Non-pressure chronic ulcer of other part of left foot limited to breakdown of skin (CMS/HCC) Obesity Obstructive sleep apnea (adult) (pediatric) Obstructive sleep apnea on CPAP 2010 Peripheral neuropathy Peripheral vascular disease (CMS/HCC) Personal history of medical treatment 2009 infection in foot surgery Polyneuropathy Polyradiculopathy Radiculopathy, lumbosacral region Right bundle branch block Rotator cuff tear, left Skin ulcer of toe of left foot with fat layer exposed (CMS/HCC) Type 2 diabetes mellitus with diabetic nephropathy, without long-term current use of insulin (CMS/HCC) 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 Sig Documenting Provider Last Dose Status allopurinol (Zyloprim) 300 MG tablet [id number] No Take 1 tablet (300 mg) by mouth Daily Khoa Bowles MD Taking Active aspirin 81 MG EC tablet [id number] No Take 81 mg by mouth in the morning. Historical Provider, Taking Active biotin 88252 MCG tablet [id number] No 1 (one) time each day at the same time. Karli ProviderMD Taking Active dapagliflozin (Farxiga) 10 MG [id number] No Take 1 tablet (10 mg) by mouth Daily Khoa Bowles MD Taking Active doxycycline (Monodox) 100 MG capsule [id number] No Take 1 capsule (100 mg) by mouth in the morning. Khoa Bowles MD Taking Active fenofibrate (Triglide) 160 MG tablet [id number] No Take 1 tablet (160 mg) by mouth Daily Khoa Bowles MD Taking Active ferrous sulfate 325 (65 Fe) MG tablet [id number] No Take 325 mg by mouth in the morning. Take with meals. Karli Boston MD Taking Active Flomax 0.4 MG 24 hr capsule [id number] No Take 0.4 mg by mouth in the evening. Karli Boston MD Taking Active gabapentin (Neurontin) 300 MG capsule [id number] Take 1 capsule (300 mg) by mouth in the morning and 1 capsule (300 mg) before bedtime. SUSANNA Arndt Active hydroCHLOROthiazide (HYDRODiuril) 25 MG tablet [id number] No Take 1 tablet (25 mg) by mouth in the evening Khoa Bowles MD Taking Active insulin glargine (Basaglar KwikPen) 100 UNIT/ML pen [id number] No Inject bid, sliding blood glucose scale with the coverage: <70, zero and eat. 70-150, 10 units. 151-200, 14 units. 201-250, 16 units. 251-300, 18 units. >300, 20 units Khoa Bowles MD Taking Active losartan-hydroCHLOROthiazide (Hyzaar) 100-12.5 MG tablet [id number] No Take 1 tablet by mouth Daily Khoa Bowles MD Taking Active Lutein 20 MG tablet [id number] No 1 (one) time each day at the same time. Karli Boston MD Taking Active metFORMIN (Glucophage) 1000 MG tablet [id number] No Take 1 tablet (1,000 mg) by mouth in the morning and 1 tablet (1,000 mg) in the evening. Take with meals. Khoa Bowles MD Taking Active metoprolol tartrate (Lopressor) 50 MG tablet [id number] No Take 1 tablet (50 mg) by mouth in the morning and 1 tablet (50 mg) before bedtime. Khoa Bowles MD Taking Active pen needle 32G x 6 mm [facility] [id number] No Use for Injection subcutaneous twice daily Khoa Bowles MD Taking Active sodium bicarbonate 650 MG tablet [id number] No Take 3 tablets by mouth in the morning and 3 tablets before bedtime. Historical Provider, Taking Active spironolactone (Aldactone) 25 MG tablet [id number] No 2 tablets in Am and 1 [...] triceps, wrist extensors, wrist extensors, wrist flexor, sas architect strength 5/5. LUE Strength deltoid, biceps, triceps, wrist extensors, wrist extensors, wrist flexor, sas architect strength 5/5. RLE Strength illopsoas, quadriceps, tibialis [...] controlled. Symptoms are currently stable with gabapentin. Lumbar spine MRI 08/05/2023: revealed diffuse degenerative [...] or worsening symptoms documented in this encounter [facility] 07-24-2024 Telephone encounter Note RX corrected and sent [facility] 07-24-2024 Miscellaneous Notes RX corrected and sent He said he is talking about his pen needles. They are wrote for only one box of 100 for 90 days but he does his medication twice daily and so he needs 200. I am not sure how to fix this script. I pended what I believe would be right if you can look it over please Sridevi, I suspect he is talking about testing with the lens sets and test strips. Can you confirm this is what he needs. If so okay to send a prescription for 200 with directions of tests twice a day and as needed. Abelino called, his last fill of needles was for 100. He states that he is suppose to test twice a day. When he tried to refill the needles at [facility], they told him that they show the 100 is a 90 day supply for him and will not refill it. He is asking if Dr. Bowles can send an order to [facility] stating how often he test to show how many needles a 90 day supply is. He states he is out of needles and can not check his sugar. documented in this encounter [facility] 07-24-2024 Telephone encounter Note He said he is talking about his pen needles. They are wrote for only one box of 100 for 90 days but he does his medication twice daily and so he needs 200. I am not sure how to fix this script. I pended what I believe would be right if you can look it over please [facility] 07-24-2024 Telephone encounter Note January, I suspect he is talking about testing with the lens sets and test strips. Can you confirm this is what he needs. If so okay to send a prescription for 200 with directions of tests twice a day and as needed. [facility] 07-24-2024 Telephone encounter Note Abelino called, his last fill of needles was for 100. He states that he is suppose to test twice a day. When he tried to refill the needles at [facility], they told him that they show the 100 is a 90 day supply for him and will not refill it. He is asking if Dr. Bowles can send an order to [facility] stating how often he test to show how many needles a 90 day supply is. He states he is out of needles and can not check his sugar. [facility] 12-09-2023 History of Present illness Narrative Images from the original note were not included. Subjective Patient ID: Manuel Balderas is a 73 y.o. male who presents for Nail care (Manuel Balderas is a 73 y.o. male. Established pt presents today for diabetic nail care. PCP: Dr. Bowles 11/04/2023, A1C: 7.6 (07/27/23),BS: 168 SS: 12).). [...] in the morning., Disp: , Rfl: biotin 43649 MCG tablet, 1 (one) time each day [...] removal of 1 of the Coflex devices., [facility] CUFF REPAIR Left 1999 anterior stabilization [...] Mood normal. Behavior: Behavior normal. MODIFIER: Q9, [address], [address] Assessment/Plan Diagnoses and all orders for this visit: Type II or unspecified type diabetes mellitus with neurological manifestations, not 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) (CMS/[facility]) Onychomycosis Hallux limitus, left Acquired keratoderma Conservative [...] or corrected. Thank you for your understanding. Tiffanie Enrique DPM documented in this encounter [facility] 07-21-2023 Hospital Discharge instructions Patient Education 07/21/2023 [...] include: ?8 oz (237 mL) of milk, ashtooe-jdjubvfzvgsx-ivzte milk, and calcium-fortifiedfruit juice. Calcium-fortified means that [...] ?Spinach (cooked), rhubarb, beets, sweet potatoes, and Cuban chard. ?Peanuts. ?Potato chips, citizen of [place] fries, and baked potatoes with skin on. ?Nuts and nut products. ?Chocolate. If you regularly take a diuretic medicine, make sure to eat at least 1 or 2 servings of fruits or vegetables that are high in potassium each day. These include: ?Avocado. ?Banana. ?[place], prune, carrot, or tomato juice. ?Baked potato. [...] magnesium, fish oil, or vitamin B6. Take wmsw-chd-cwqkcbf and prescription medicines only as told by [...] Casseroles. Pizza. Lasagna. Frozen meals. Potato chips. Croatian fries. The items listed above may not [...] provider. Document Revised: 06/29/2022 Document Reviewed: 06/29/2022 [employer] Patient Education 2022 Dydra. Follow Up Care 05/19/2023 09:51:24 With:NINA LEVY, Madison Crespo, URL Address: [facility] [address] , [place] [address]- When: Unknown [facility] 01-05-2023 Hospital Discharge instructions Patient Education 01/05/2023 [...] include: ?Spinach. ?Rhubarb. ?Beets. ?Potato chips and citizen of [place] fries. ?Nuts. If you regularly take a diuretic medicine, make sure to eat at least 1 2 fruits or vegetables high in potassium each day. These include: ?Avocado. ?Banana. ?[place], prune, carrot, or tomato juice. ?Baked potato. [...] Casseroles. Pizza. Lasagna. Frozen meals. Potato chips. Croatian fries. Summary You can reduce your risk [...] 02/12/2012 Document Revised: 02/07/2020 Document Reviewed: 09/28/2017 [employer] Patient Education 2020 Dydra. Follow Up Care 10/07/2022 10:58:19 With:NINA LEVY, Madison Crespo, URL Address: [facility] [address] , [place] [address]- When: Unknown [facility] 09-21-2022 Hospital Discharge instructions Patient Education [...] urethra. Follow these instructions at home: Take oqxq-lce-pbalhcx and prescription medicines only as told by [...] 10/18/2006 Document Revised: 09/12/2019 Document Reviewed: 11/22/2017 [employer] Patient Education 2020 Dydra. Follow Up Care 12/22/2021 13:03:04 With:Madison BEACH MD, URL Address: [facility] [address], [place] [address]- When: Unknown [facility] Evaluation + Plan note No data available for this section [facility] Evaluation + Plan note Future Appointments Appointment Date:07/26/2024 01:45:00 PM Scheduled Provider:Madison BEACH MD Location:[facility] Appointment Type:URO Office Visit [facility] Evaluation + Plan note Future Appointments Appointment Date:09/04/2024 12:45:00 PM Scheduled Provider:Madison BEACH MD [facility] Office Visit [facility] Evaluation + Plan note Future Appointments Appointment Date:12/18/2024 10:45:00 AM Scheduled Provider:Madison BEACH MD Location:[facility] Appointment Type:URO Office Visit Diagnostic Tests PendingPSA Total 09/04/24 [facility] Evaluation note No assessment inform ation available [facility] Evaluation note Diagnosis Type II or unspecified type diabetes mellitus with neurological manifestations, not 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) (CMS/[facility])- Primary Type II or unspecified type diabetes mellitus with neurological manifestations, not stated as uncontrolled Onychomycosis Dermatophytosis of nail Hallux limitus, left Acquired keratoderma documented in [facility] encounter [facility] Diagnosis Obstructive sleep apnea syndrome- Primary Obstructive sleep apnea (adult) (pediatric) Snoring Other dyspnea and respiratory abnormality Obesity (BMI 30-39.9) Hypersomnia Hypersomnia, unspecified documented in this encounter [facility]* Diagnosis Polyradiculopathy- Primary Unspecified neuralgia, neuritis, and radiculitis Polyneuropathy Unspecified hereditary and idiopathic peripheral neuropathy documented in this encounter [facility]* Diagnosis Type II or unspecified type diabetes mellitus with neurological manifestations, not 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) ([facility]/HCC)- Primary Type II or unspecified type diabetes mellitus with neurological manifestations, not stated as uncontrolled Onychomycosis Dermatophytosis of nail Acquired keratoderma documented in this encounter [facility]* Diagnosis Diabetic nephropathy associated with type 2 diabetes mellitus (HCC) ([facility]) documented in this encounter [facility]* Diagnosis Diabetic neuropathic arthropathy ([facility]) Type II or unspecified type diabetes mellitus with neurological manifestations, not stated as uncontrolled documented in this encounter [facility] Discharge instructions No data available for this section [facility] Progress note No data available for this section [facility] [place] Chief Complaint and Reason for Visit Chief [...] Documents on File Type Date Recorded Patient Care Consultant Expl anation Power of Binder Folder Operator 03/29/2024 1:37 PM 07-10 POA Advance Directives [...] Provider Active EDWIN ConstantinoC Attending Provider Active House Rn Relationship Specialty Start Date End Date Khoa Bowles MD [address] [place] [address] PCP - General Family Medicine 04/08/23 Madison Beach MD [address] [place] [address] Referring Physician Urology 12/09/23 Tiffanie Enrique DPM [address] [place] [address] Referring Physician Podiatry 12/09/23 House Rn Relationship Specialty Start Date End Date Khoa Bowles MD [address] [place] [address] PCP - General Family Medicine 04/08/23 Khoa Bowles MD [address] [id number] PCP - ACO Reach 12/31/23 Madison Beach MD [address] [place] [address] Referring Physician Urology 12/09/23 Tiffanie Enrique DPM [address] [place] [address] Referring Physician Podiatry 12/09/23 House Rn Relationship Specialty Start Date End Date Khoa Bowles MD [address] [place] [place] [address] PCP - General Family Medicine 04/08/23 Khoa Bowles MD [address] [place] [address] PCP - ACO Reach 12/31/23 Madison Beach MD [address] [place] [address] Referring Physician Urology 12/09/23 Tiffanie Enrique DPM [address] [place] [address] Referring Physician Podiatry 12/09/23 House Rn Relationship Specialty Start Date End Date Khoa Bowles MD [address] [place] [place] [address] PCP - General Family Medicine 04/08/23 Khoa Bowles MD [address] [place] [address] PCP - ACO Reach 12/31/23 Madison Beach MD [address] [place] [address] Referring Physician Urology 12/09/23 Tiffanie Enrique DPM [address] [place] [address] Referring Physician Podiatry 12/09/23 House Rn Relationship Specialty Start Date End Date Khoa Bowles MD (Fax) PCP - General Family Medicine 04/08/23 Khoa Bowles MD [address] [address] (Fax) PCP - ACO Reach 12/31/23 Madison Beach MD [address] [place] [address] Referring Physician Urology 12/09/23 Tiffanie Enrique DPM [address] [place] [address] Referring Physician Podiatry 12/09/23 House Rn Relationship Specialty Start Date End Date Khoa Bowles MD [address] [place] [address] (Fax) PCP - ACO Reach 12/31/23 Madison Beach MD [address] [place] [address] Referring Physician Urology 12/09/23 Tiffanie Enrique DPM [address] [place] [address] Referring Physician Podiatry 12/09/23 House Rn Relationship Specialty Start Date End Date hKoa Bowles MD [address] [address] (Fax) PCP - ACO Reach 12/31/23 Madison Beach MD [address] [place] [address] Referring Physician Urology 12/09/23 Tiffanie Enrique DPM [address] [place] [address] Referring Physician Podiatry 12/09/23 House Rn Relationship Specialty Start Date End Date Khoa Bowles MD [address] [place] [address] PCP - ACO Reach 12/31/23 Madison Beach MD [address] [place] [address] Referring Physician Urology 12/09/23 Tiffanie Enrique DPM [address] [place] [address] Referring Physician Podiatry 12/09/23 House Rn Relationship Specialty Start Date End Date Khoa Bowles MD [address] [place] [place] [address] PCP - General Family Medicine 04/08/23 Khoa Bowles MD [address] [place] [address] PCP - ACO Reach 12/31/23 Madison Beach MD [address] [place] [address] Referring Physician Urology 12/09/23 Tiffanie Enrique DPM [address] [place] [address] Referring Physician Podiatry 2/8/24 (unrecognized sect ion and content) No Status Records FoundNo Status Records FoundNo Status Records FoundNo Status Records FoundNo Status Records FoundNo Status Records Found INFORMATION SOURCE (unrecogn ized section and content) DATE CREATED AUTHOR 02/14/2023 [facility] [place] [facility] DATE CREATED AUTHOR AUTHOR'S ORGANIZ ATION 02/29/2024 [facility] DATE CREATED AUTHOR AUTHOR'S ORGANIZ ATION 05/21/2024 [facility] DATE CREATED AUTHOR AUTHOR'S ORGANIZ ATION 05/31/2024 [facility] DATE CREATED AUTHOR AUTHOR'S ORGANIZ ATION 09/05/2024 [facility] DATE CREATED AUTHOR AUTHOR'S ORGANIZ ATION 09/17/2024 [facility] [facility] EPIC Reason for Visit (unrecogniz ed section and content) Reason Comments Nail care Manuel Balderas is a 73 y.o. male. Established pt presents today for diabetic nail care. PCP: Dr. Jelena HERNANDEZ 11/04/2023, A1C: 7.6 (07/27/23),BS: 168 SS: 12). Reason Comments Polyradiculopathy Reason Comments DM Foot Care PCP: Dr. Jelena HERNANDEZ 05/02/24, A1C: 6.6, BS: 131, SS: 12 Reason Comments Med Refill Reason Onset Date Comments Care Coordination 07/24/2024 FOR RECORDS PERTAINING TO PATIENTS WHO ARE [...] BE BASED ON THE PRIMARY CLINICAL RECORDS. [employer] provides no warranty or guarantee of the accuracy or completeness of information in this document.
[2024-10-26 12:58] LABS: Alanine Aminotransferase 56 U/L (16-63); Albumin Globulin Ratio 1.5; Albumin Level 3.8 g/dL (3.4-5.0); Alkaline Phosphatase 60 U/L (46-116); Anion Gap 14.2; Aspartate Amino Transferase 42 U/L (15-37); BUN Creatinine Ratio 26.5; Bilirubin Total 0.5 mg/dL (0.2-1.0); Calcium 10.2 mg/dL (8.5-10.1); Carbon Dioxide 27.4 mmol/L (21.0-32.0); Chloride 106 mmol/L (98-107); Estimated GFR (African America >60 (>=60 mL/min/1.73m^2); Estimated GFR (Non-African Ame 53 (>=60 mL/min/1.73m^2); Globulin 2.6 g/dL; Glucose 176 mg/dL (74-106); Potassium 4.6 mmol/L (3.5-5.1); Sodium 143 mmol/L (136-145); Total Protein 6.4 g/dL (6.4-8.2)
[2024-10-26 13:56] LABS: Estimated Average Glucose 143 mg/dL; Glycohemoglobin A1C 6.6 % (4.5-6.2)
== END 2024-10-26 11:52 | disposition home or self-care (01) ==
LOC: LAB 11:52
PROVIDERS: PCP Family Medicine; Visit Provider Family Medicine
DX: E11.42 Type 2 diabetes mellitus with diabetic polyneuropathy (principal); I10 Essential (primary) hypertension
CPT/HCPCS: 36415; 80053; 83036

== ENCOUNTER 2024-11-17 09:41 | Outpatient (OUT) | payer MEDICARE, SELFPAY ==
--- NOTE | 2024-11-17 09:46 | CT_ITS ---
The [address] [address] Patient Name: DUARTE ABRAHAM MRN: [id number] date: 1950 Sex: M Assigned Patient Location: CT Current Patient Location: CT Accession/Order Number: [id number] Exam Date: 11/17/2024 09:52 Report Date: 11/18/2024 09:05 At the request of: NON-STAFF PHYSICIAN Procedure: CT ankle LT wo con EXAM: CT ankle LT wo con HISTORY: Pseudo Arthritis Of Fusion Site. Left ankle pain for 3 to 4 months. No known trauma. History of fusion in 2008 with hardware removal in 2009. COMPARISON: CTA runoff 02/07/2024. TECHNIQUE: Multiple axial unenhanced CT images of the left ankle were supplemented with 2-D coronal and sagittal reformations. Dose reduction techniques were achieved by using automated exposure control and/or adjustment of mA and/or kV according to patient size and/or use of iterative reconstruction technique. FINDINGS: There is prior resection of the distal fibula. Surgical margin remains sharp. There is severe osteoarthritis at the tibiofemoral joint with chronic appearing remodeling of the articular surfaces of both the distal tibia and talar body. Talar body is significantly flattened and remodeled with numerous loose bodies in and around the knee joint, as before. There is partial bony fusion across the posterior subtalar joint involving 50% to 75% of the elbow joint. Minor bony fusion across the posterior margin of the anterior subtalar joint. The talonavicular and calcaneocuboid joints demonstrate mild marginal spur. Visualized mid foot appears maintained, as seen. No acute fracture is identified. Mild Achilles tendinosis is noted. The visualized flexor, peroneal, and extensor tendons appear intact. Mild soft tissue swelling and edema along the ankle and visualized foot. Prominent fatty atrophy of the muscles of the lower leg and hindfoot. CT/CT ankle LT wo con IMPRESSION: 1. 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 2. Postsurgical changes of the tibiotalar joint and hindfoot. Prior distal resection of the fibula. 3. Solid fusion is seen across the posterior subtalar joints, as above. 4. No acute fracture identified. Electronically authenticated by: KALA LANDERS Date: 11/18/2024 09:05
--- OUTSIDE RECORDS SUMMARY | 2024-11-17 09:52 | XMS_ITS | CCD ---
Author Organization [facility] Care Team Providers Care Right Of Way Man Name Role Phone Khoa Bowles Primary Care Provider Leopoldo Frye Attending Provider Elder Qiu Attending Provider [phone] KHOA BOWLES Primary Care Physician [phone] KHOA BOWLES Primary Care Physician Unavail able BEACH ., DR WALLACE Consulting Unavailable HEMEYER ., DR COUCH Primary Care Unavailable BEACH ., DR WALLACE Attending Unavailable BEACH ., DR WALLACE Admitting Unavailable BEACH ., DR WALLACE Consulting Unavailable HEMEYER ., DR COUCH Primary Care Unavailable BEACH ., DR WALLACE Attending Unavailable BEACH ., DR WALLACE Admitting Unavailable ELINA TORRES Consulting Unavailable BEACH ., DR WALLACE Consulting Unavailable HEMEYER ., DR COUCH Primary Care Unavailable BEACH ., DR WALLACE Attending Unavailable BEACH ., DR WALLACE Admitting Unavailable ISAK CORTEZ Consulting Unavailable LISA MCGINNIS Consulting Unavailable SWATI ROE Consulting Unavailable HEMEYER ., DR COUCH Primary Care Unavailable HEMEYER ., DR COUCH Attending Unavailable HEMEYER ., DR COUCH Admitting Unavailable HEMEYER ., DR COUCH Primary Care Unavailable BEACH ., DR WALLACE Attending Unavailable BEACH ., DR WALLACE Admitting Unavailable HEMEYER ., DR COUCH Consulting Unavailable HEMEYER ., DR COUCH Primary Care Unavailable HEMEYER ., DR COUCH Attending Unavailable HEMEYER ., DR COUCH Admitting Unavailable HEMEYER ., DR COUCH Consulting Unavailable HEMEYER ., DR COUCH Primary Care Unavailable HEMEYER ., DR COUCH Attending Unavailable HEMEYER ., DR COUCH Admitting Unavailable HEMEYER ., DR COUCH Consulting Unavailable HEMEYER ., DR COUCH Primary Care Unavailable HEMMER, DR BACILIO Carvajal Attending Unavailable HEMMER, DR BACILIO Carvajal Admitting Unavailable BEACH ., DR WALLACE Consulting Unavailable HEMEYER ., DR COUCH Primary Care Unavailable BEACH ., DR WALLACE Attending Unavailable BEACH ., DR WALLACE Admitting Unavailable ASHTON, DR TALI Jeffries Consulting Unavailable BEACH ., DR WALLACE Consulting Unavailable HEMEYER ., DR COUCH Primary Care Unavailable BEACH ., DR WALLACE Attending Unavailable BEACH ., DR WALLACE Admitting Unavailable MD Khoa Bowles Primary Care Provider [phone] MARIZOL Hampton Attending Provider Khoa Bowles MD Primary Care Provider [phone] Jude Beach MD Unavailable Haja HARMON, Preet Tariq Unavailable Olive Hampton Attending Unavailable Olive Hampton Admitting Unavailable Hemeyer, Edsilvana Yanes Primary Care Unavailable LEOLA, MOHAMED F Attending Unavailable HEMEYER, EDSILVANA J Referring Unavailable HEMEYER, EDSILVANA J Primary Care Unavailable LEOLA, MOHAMED F Attending Unavailable HEMEYER, KHOA J Referring Unavailable HEMEYER, EDSILVANA J Primary Care Unavailable HEMEYER, EDSILVANA J Referring Unavailable HEMEYER, EDWARD J Primary Care Unavailable LEOLA, MOHAMED F Attending Unavailable HEMEYER, EDSILVANA J Referring Unavailable HEMEYER, EDWARD J Primary Care Unavailable LEOLA, MOHAMED F Attending Unavailable LEOLA, MOHAMED F Referring Unavailable HEMEYER, EDWARD J Primary Care Unavailable LEOLA, MOHAMED F Attending Unavailable LEOLA, MOHAMED F Referring Unavailable HEMEYER, EDWARD J Primary Care Unavailable Khoa Bowles MD Unavailable Khoa Bowles MD Primary Care Provider [phone] Khoa Bowles MD Unavailable Jude BEACH Attending Unavailable Jude BEACH Attending Unavailable Jude BEACH Attending Unavailable Khoa Bowles MD Unavailable PREET ENRIQUE Attending Unavailable HEMEYER, KHOA Yanes Attending Unavailable HEMEYER, KHOA Yanes Attending Unavailable PREET ENRIQUE Attending Unavailable HEMEYER, KHOA Yanes Attending Unavailable OLIVE HAMPTON Attending Unavailable HEMEYER, KHOA Yanes Attending Unavailable PREET ENRIQUE Attending Unavailable ELINA GUZMÁN Attending Unavailable OLIVE HAMPTON Attending Unavailable PREET ENRIQUE Attending Unavailable KHOA BOWLES Attending Unavailable Allergies Allergy Classification Reported Allergen(s) Allergy Type Date of Onset Reaction(s) Facility Opioid Agonists (1 source) Meperidine Drug Allergy 1 [facility] (6 sources) Meperidine / Promethazine; Translations: [meperidine-prome thazine] Drug Allergy Unknown (qualifier value) [facility] (20 sources) Meperidine; Translations: [meperidine] Drug Allergy 4 Tremor (finding) [facility] (2 sources) Meperidine Drug Allergy 3 [facility] (2 sources) pioglitazone Drug Allergy 3 [facility] (15 sources) Meperidine Drug Allergy 2 [facility] (15 sources) pioglitazone Drug Allergy 3 Swelling [facility] (1 source) Meperidine Drug Allergy [address] [facility] (1 source) Doxycycline; Translations: [doxycycline] Drug Allergy [facility] Rep[facility] Medications Current Medications Medication Drug Class(es) Dates Sig (Normalized) Sig (Original) allopurinol 300 mg oral tablet (20 sources) Xanthine Oxidase Inhibitor Start: 11-09-2018 End: 10-29-2024 take 1 tablet by mouth once daily allopurinol (Zyloprim) 300 MG tablet Indications: Polypharmacy Take 1 tablet (300 mg) by mouth Daily 90 tablet 1 05/02/2024 10/29/2024 Active aspirin 81 mg oral tablet (20 sources) Platelet Aggregation Inhibitor, Nonsteroidal Anti-inflammatory Drug [...] Every morning November 23, 2018 9:16am Biotin (18 sources) Start: 09-04-2024 biotin 10,000 mcg, Refills(s) 0 Start Date: 09/04/24 Status: Ordered Start: 11-09-2018 take 21149 ug by noemi th twice daily Biotin Active 93473 MCG PO Twice daily November 09, 2018 3:30pm biotin 49639 MCG tablet 1 (one) time each day [...] 2021 11:56am dapagliflozin 10 mg oral tablet (16 sources) Sodium-Glucose Cotransporter 2 Inhibitor Start: 10-31-2024 End: 04-29-2025 take 1 tablet by mouth once daily dapagliflozin (Farxiga) 10 MG Indications: Diabetic nephropathy associated with type 2 diabetes mellitus (HCC) (CMS/HCC) Take 1 tablet (10 mg) by mouth Daily 90 tablet 1 10/31/2024 04/29/2025 Active Start: 05-02-2024 End: 10-29-2024 take 1 tablet by mouth once daily dapagliflozin (Farxiga) 10 MG Indications: Diabetic nephropathy associated with type 2 diabetes mellitus (HCC) (CMS/HCC) Take 1 tablet (10 mg) by mouth Daily 90 tablet 1 05/02/2024 Active Start: 11-04-2023 End: 02-02-2024 take 1 tablet by mouth in the morning dapagliflozin (Farxiga) 10 MG Indications: Diabetic nephropathy associated with type 2 diabetes mellitus (HCC) (CMS/HCC) Take 1 tablet (10 mg) by mouth in the morning. 90 tablet 0 11/04/2023 02/02/2024 Active doxycycline monohydrate 100 mg oral capsule (20 sources) Tetracycline-class Drug Start: 10-31-2024 End: 10-26-2025 take 1 capsule by mouth once daily doxycycline (Monodox) 100 MG capsule Indications: Chronic cellulitis Take 1 capsule (100 mg) by mouth Daily 90 capsule 3 10/31/2024 10/26/2025 Active Start: 11-04-2023 End: 10-29-2024 take 1 capsule [...] 2018 3:30pm fenofibrate 160 mg oral tablet (16 sources) Peroxisome Proliferator Receptor alpha Agonist Start: 10-31-2024 End: 04-29-2025 take 1 tablet by mouth once daily fenofibrate (Triglide) 160 MG tablet Indications: Mixed hyperlipidemia (CMS/HCC) Take 1 tablet (160 mg) by mouth Daily 90 tablet 1 10/31/2024 04/29/2025 Active Start: 05-02-2024 End: 10-29-2024 take 1 tablet by mouth once daily fenofibrate (Triglide) 160 MG tablet Indications: Mixed hyperlipidemia (CMS/HCC) Take 1 tablet (160 mg) by mouth Daily 90 tablet 1 05/02/2024 Active Start: 11-04-2023 End: 02-02-2024 take 1 tablet by mouth in the morning fenofibrate (Triglide) 160 MG tablet Indications: Mixed hyperlipidemia (CMS/HCC) Take 1 tablet (160 mg) by mouth in the morning. 90 tablet 0 11/04/2023 02/02/2024 Active ferrous sulfate 325 mg oral tablet (17 sources) Start: 11-09-2018 take 1 tablet by mouth once daily Ferrous Sulfate (Iron (Ferrous Sulfate)) 325 mg (65 mg iron) Tablet Active 325 MG PO Daily November 09, 2018 3:30pm gabapentin 300 mg oral capsule (20 sources) Anti-epilept ic Agent Start: 11-06-2024 End: 02-04-2025 take 1 capsule by mouth in the morning gabapentin (Neurontin) 300 MG capsule Indications: Polyradiculopathy Take 1 capsule (300 mg) by mouth in the morning and 1 capsule (300 mg) before bedtime. 180 capsule 11/06/2024 02/04/2025 Active Start: 07-21-2023 End: 10-29-2024 take 1 capsule by mouth in the morning gabapentin (Neurontin) 300 MG capsule Indications: Polyradiculopathy Take 1 capsule (300 mg) by mouth in the morning and 1 capsule (300 mg) before bedtime. 180 capsule 07/31/2024 Active Start: 11-09-2018 End: 04-03-2021 take 400 [...] 2018 3:30pm hydroCHLOROthiazide 25 mg oral tablet (19 sources) Thiazide Diuretic Start: 01-11-2023 End: 10-29-2024 take 1 tablet by mouth in the evening hydroCHLOROthiazide (HYDRODiuril) 25 MG tablet Indications: Essential hypertension (CMS/HCC) Take 1 tablet (25 mg) by mouth in the evening 90 tablet 1 05/02/2024 Active Start: 11-09-2018 End: 01-07-2023 take 1 tablet by mouth once daily hydrochlorothiazide 25 mg Tab 25 mg = 1 tab(s), Oral, Daily, X 90 day(s), # 90 tab(s), Refills(s) 0, Pharmacy: [facility]/pharmacy #[id number], 185, cm, 12/22/21 12:11:00 EST, Height/Length Dosing, 136.7, kg, 12/22/21 12:11:00 EST, Weight Dosing Start Date: 10/09/22 Stop Date: 01/07/23 Status: Ordered hydroCHLOROthiazide 12.5 mg / losartan potassium 100 mg oral tablet (18 sources) Thiazide Diuretic, Angiotensin 2 Receptor Dean Start: 10-31-2024 End: 04-29-2025 take 1 tablet by mouth once daily losartan-hydroCHLOROthiazide (Hyzaar) 100-12.5 MG tablet Indications: Essential hypertension (CMS/HCC) Take 1 tablet by mouth Daily 90 tablet 1 10/31/2024 04/29/2025 Active Start: 09-04-2024 hydrochlorothi azide-losartan 12.5 mg-100 mg oral tablet 1 tab(s), Refill(s) 0 Start Date: 09/04/24 Status: Ordered Start: 05-02-2024 End: 10-29-2024 take 1 tablet by mouth once daily losartan-hydroCHLOROthiazide (Hyzaar) 100-12.5 MG tablet Indications: Essential hypertension (CMS/HCC) Take 1 tablet by mouth Daily 90 tablet 1 05/02/2024 Active Start: 11-04-2023 End: 02-02-2024 take 1 [...] ml insulin glargine 100 unt/ml pen injector (16 sources) Insulin Analog Start: 09-04-2024 Basaglar KwikP [...] UNIT/ML 3 mL 0 11/23/2023 Active Lutein (18 sources) Start: 09-04-2024 lutein 20 mg, Refill(s) 0 Start Date: 09/04/24 Status: Ordered Start: 11-09-2018 take 20 mg by mouth once daily Lutein Active 20 MG PO Daily November 09, 2018 3:30pm Lutein 20 MG tab let 1 (one) time each day at the same time. Active metFORMIN hydrochloride 1000 mg oral tablet (18 sources) Biguanide Start: 10-31-2024 End: 04-29-2025 take 1 tablet by mouth in the morning metFORMIN (Glucophage) 1000 MG tablet Indications: Type 2 diabetes mellitus with hyperglycemia, without long-term current use of insulin (CMS/HCC) Take 1 tablet (1,000 mg) by mouth in the morning and 1 tablet (1,000 mg) in the evening. Take with meals. 180 tablet 1 10/31/2024 04/29/2025 Active Start: 05-02-2024 End: 10-29-2024 take 1 tablet by mouth in the morning metFORMIN (Glucophage) 1000 MG tablet Indications: Type 2 diabetes mellitus with hyperglycemia, without long-term current use of insulin (CMS/HCC) Take 1 tablet (1,000 mg) by mouth in the morning and 1 tablet (1,000 mg) in the evening. Take with meals. 180 tablet 1 05/02/2024 Active Start: 11-04-2023 End: 02-02-2024 take 1 [...] 3:30pm metoprolol tartrate 50 mg oral tablet (20 sources) beta-Adrenergic Dean Start: 10-31-2024 End: 04-29-2025 take 1 tablet by mouth in the morning metoprolol tartrate (Lopressor) 50 MG tablet Indications: Essential hypertension (CMS/HCC) Take 1 tablet (50 mg) by mouth in the morning and 1 tablet (50 mg) before bedtime. 180 tablet 1 10/31/2024 04/29/2025 Active Start: 11-09-2018 End: 10-29-2024 take 1 tablet by mouth in the morning metoprolol tartrate (Lopressor) 50 MG tablet Indications: Essential hypertension (CMS/HCC) Take 1 tablet (50 mg) by mouth in the morning and 1 tablet (50 mg) before bedtime. 180 tablet 1 05/02/2024 Active 24 hr mirabegron 50 mg extended release oral tablet (1 source) beta3-Adrenergic Agonist Start: 09-04-2024 End: 08-30-2025 take 1 tablet by mouth once daily mirabegron 50 mg oral tablet, extended release 50 mg = 1 tab(s), Oral, Daily, X 30 day(s), # 30 tab(s), Refills(s) 11, Pharmacy: [facility]/pharmacy #[id number], 185, cm, 09/04/24 13:31:00 EST, Height/Length [...] 1 dose pk PO per package directions 30 Viridiana 17th, 2021 12:00am take 4 tabs for 3 [...] days sodium bicarbonate 650 mg oral tablet (20 sources) Start: 11-11-2023 take 3 tablets by mouth twice daily sodium bicarbonate 650 mg Tab 1,950 mg = 3 tab(s), Oral, BID, # 180 tab(s), Refills(s) 11, Pharmacy: [facility]/pharmacy #[id number], 185, cm, 07/21/23 13:37:00 EDT, Height/Length Dosing, 138.2, kg, 07/21/23 13:37:00 EDT, Weight Dosing Start Date: 11/11/23 Status: Ordered Start: 11-08-2022 take 3 tablets by mo uth twice daily sodium bicarbonate 650 mg Tab 1,950 mg = 3 tab(s), Oral, BID, # 180 tab(s), Refills(s) 11, Pharmacy: [facility]/pharmacy #[id number], 185, cm, 12/22/21 12:11:00 EST, Height/Length Dosing, 136.7, kg, 12/22/21 12:11:00 EST, Weight Dosing Start Date: 11/08/22 Status: Ordered Start: 11-05-2021 End: 10-31-2022 take 3 tablets by mouth twice daily sodium bicarbonate 650 mg Tab 1,950 mg = 3 tab(s), Oral, BID, X 90 day(s), # 540 tab(s), Refills(s) 3, Pharmacy: [facility]/pharmacy #[id number], 185, cm, 09/15/21 11:40:00 EST, Height/Length Dosing, 137, kg, 09/15/21 11:40:00 EST, Weight Dosing Start Date: 11/05/21 Stop Date: 10/31/22 Status: Ordered Start: 11-09-2018 take 1950 mg by mout h twice daily Sodium Bicarbonate Active 1950 MG PO Twice daily November 09, 2018 3:30pm spironolactone 25 mg oral tablet (16 sources) Aldosterone Antagonist Start: 09-04-2024 spironolactone 25 mg Tab See Instructions, Refills(s) 0 Start Date: 09/04/24 Status: Ordered Start: 05-02-2024 spironolactone (Aldactone) 25 MG tablet Indications: Lymphedema of both lower extremities 2 tablets in Am and 1 tablet in PM 270 tablet 1 10/31/2024 Active Start: 11-04-2023 spironolactone (Aldactone) 25 MG tablet Indications: Lymphedema of both lower extremities 2 tablets in Am and 1 tablet in PM 270 tablet 0 11/04/2023 Active tamsulosin hydrochloride 0.4 mg oral capsule (20 sources) alpha-Adrenergic Dean Start: 01-12-2024 take 1 capsule by mouth once daily tamsulosin 0.4 mg Cap 0.4 mg = 1 cap(s), Oral, Daily, # 90 cap(s), Refills(s) 3, Pharmacy: [facility]/pharmacy #[id number], 185, cm, 07/21/23 13:37:00 EDT, Height/Length Dosing, 138.2, kg, 07/21/23 13:37:00 EDT, Weight Dosing Start Date: 01/12/24 Status: Ordered Start: 11-09-2018 take 1 capsule by mo uth once daily tamsulosin 0.4 mg Cap 0.4 mg = 1 cap(s), Oral, Daily, # 90 cap(s), Refills(s) 3, Pharmacy: [facility]/pharmacy #[id number], 185, cm, 12/22/21 12:11:00 EST, [...] 4 04-12-2023 Chronic Coagulation and hemorrhagic disorders (15 sources) Thrombocytopenic disorder; Translations: [Thrombocytopenia, unspecified] Onset: 3 04-12-2023 Chronic Conduction disorders (15 sources) Right bundle branch block; Translations: [Unspecified right bundle-branch block] Onset: 3 04-12-2023 Chronic Diabetes mellitus with complications (20 sources) Type 2 diabetes mellitus with diabetic polyneuropathy; Translations: [Type 2 diabetes mellitus with other diabetic neurological complication] Onset: 6 Resolved: 4 Chronic Disorders of lipid metabolism (20 sources) Hyperlipidemia; Translations: [Hyperlipidemia, unspecified] Onset: 2 09-18-2019 Chronic Diverticulosis and diverticulitis (15 sources) Diverticulosis of colon; Translations: [Diverticulosis of large intestine without perforation or abscess without bleeding] Onset: 5 04-12-2023 Chronic Essential hypertension (20 sources) Hypertensive disorder; Translations: [Essential (primary) hypertension] Onset: 2 09-18-2019 Chronic Hyperplasia of prostate (20 sources) Benign prostatic hypertrophy with outflow obstruction; Translations: [Benign prostatic hyperplasia with lower urinary tract symptoms] Onset: 6 Chronic Hypertension with complications and secondary hypertension (15 sources) Hypertensive left ventricular hypertrophy; Translations: [Hypertensive heart disease without heart failure] Onset: 3 04-12-2023 Chronic Malaise and fatigue (20 sources) Asthenia; Translations: [Weakness] 04-11-2024 Episodic Mycoses (2 sources) Onychomycosis; Translations: [Tinea unguium] 12-09-2023 Episodic Other aftercare (1 source) 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; Translations: [LINOLEUM PRINTER CURRNT USE ANTICOAGULANTS] Onset: 3 Episodic Other aftercare (1 source) jail (current) use of oral hypoglycemic drugs; Translations: [JAIL USE ORAL HYPOGLYCEMIC DX] Onset: 3 Episodic Other aftercare (1 source) Other intermodal truck driver (current) drug therapy; Translations: [OTH LINOLEUM PRINTER CURRENT DRUG THERAPY] Onset: 3 Episodic Other connective tissue disease (14 sources) Fibromyalgia; Translations: [Fibromyalgia] 04-11-2024 Episodic Other diseases of bladder and urethra (1 source) Detrusor overactivity; Translations: [Overactive bladder] Onset: 4 Chronic Other diseases of bladder and urethra (1 source) Overactive bladder 09-04-2024 Chronic Other diseases of veins and lymphatics (15 sources) Lymphedema of bilateral lower limbs; Translations: [Lymphedema, not elsewhere classified] Onset: 3 04-12-2023 Chronic Other nervous system disorders (15 sources) Difficulty walking; Translations: [Difficulty in walking, not elsewhere classified] Onset: 3 04-12-2023 Chronic Other nervous system disorders (16 sources) Polyneuropathy; Translations: [Polyneuropathy, unspecified] 04-11-2024 Chronic Other nutritional; endocrine; and metabolic disorders (1 source) Morbid obesity; Translations: [Morbid (severe) obesity due to excess calories] Onset: 3 04-12-2023 Chronic Other nutritional; endocrine; and metabolic disorders (14 sources) Body mass index 30+ - obesity; Translations: [Obesity, unspecified] Onset: 4 07-26-2024 Chronic Other skin disorders (2 sources) Acquired keratoderma; Translations: [Acquired keratosis [keratoderma] palmaris et plantaris] 12-09-2023 Episodic Peripheral and visceral atherosclerosis (14 sources) Peripheral vascular disease; Translations: [Peripheral vascular disease, unspecified] 04-11-2024 Chronic Residual codes; unclassified (15 sources) Dependence on continuous positive airway pressure ventilation; Translations: [Dependence on other enabling machines and devices] Onset: 3 04-12-2023 Chronic Residual codes; unclassified (17 sources) Obstructive sleep apnea syndrome; Translations: [Obstructive [...] Date Documented Da te Episodic/Chronic Abdominal pain (15 sources) Flank pain; Translations: [Unspecified abdominal pain] Onset: 02-01-2014 07-28-2023 Episodic Calculus of urinary tract (20 sources) Kidney stone; Translations: [Calculus of kidney] Onset: 09-21-2022 Episodic Deficiency and other anemia (15 sources) Iron deficiency anemia secondary to inadequate dietary iron intake; Translations: [Other iron deficiency anemias] Onset: 04-12-2023 04-12-2023 Episodic Diabetes mellitus without complication (20 sources) Diabetes mellitus; Translations: [Type 2 diabetes mellitus without complications] Onset: 01-20-2023 Resolved: 11-04-2023 09-18-2019 Chronic Genitourinary symptoms and ill-defined conditions (20 sources) Nocturia; Translations: [Nocturia] Onset: 09-21-2022 Resolved: 11-04-2023 Episodic Heart valve disorders (15 sources) Heart murmur; Translations: [Cardiac murmur, unspecified] Onset: 04-12-2023 04-12-2023 Episodic Mood disorders (14 sources) Mood disorders Onset: 04-03-2024 04-03-2024 Other acquired deformities (15 sources) Lumbar spondylolisthesis; Translations: [Spondylolisthesis, lumbar region] Onset: 04-12-2023 04-12-2023 Episodic Other aftercare (15 sources) Polypharmacy ; Translations: [Other 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 truck driver (current) drug therapy] Onset: 08-05-2021 07-28-2023 Episodic Other connective tissue disease (15 sources) H/O: arthrodesis; Translations: [Arthrodesis status] Onset: 10-02-2020 11-04-2023 Episodic Other connective tissue disease (14 sources) Myalgia caused by statin; Translations: [Myalgia, unspecified site] Onset: 06-07-2024 06-07-2024 Episodic Other diseases of veins and lymphatics (15 sources) Lymphedema; Translations: [Lymphedema, not elsewhere classified] Onset: 07-19-2016 Resolved: 11-04-2023 11-04-2023 Chronic Other diseases of veins and lymphatics (1 source) Stasis dermatitis; Translations: [Venous insufficiency (chronic) (peripheral)] Onset: 04-12-2023 04-12-2023 Episodic Other diseases of veins and lymphatics (15 sources) Peripheral venous insufficiency; Translations: [Venous insufficiency (chronic) (peripheral)] Onset: 08-05-2021 07-28-2023 Episodic Other diseases of veins and lymphatics (14 sources) Disorder of vein of lower extremity; Translations: [Venous insufficiency (chronic) (peripheral)] Onset: 04-12-2023 04-12-2023 Episodic Other lower respiratory disease (14 sources) Snoring; Translations: [Snoring] Onset: 07-26-2024 07-26-2024 Episodic Other nutritional; endocrine; and metabolic disorders (15 sources) Body mass index 40+ - severely obese; Translations: [Body mass index (BMI) 40.0-44.9, adult] Onset: 02-01-2014 Resolved: 11-04-2023 11-04-2023 Chronic Other nutritional; endocrine; and metabolic disorders (15 sources) Obese class II; Translations: [Obesity, unspecified] Onset: 10-02-2020 Resolved: 11-04-2023 11-04-2023 Chronic Other nutritional; endocrine; and metabolic disorders (14 sources) Obesity; Translations: [Obesity, unspecified] Onset: 04-12-2023 Resolved: 04-24-2024 04-24-2024 Chronic Other nutritional; endocrine; and metabolic disorders (1 source) Hyperuricemia without signs of inflammatory arthritis and tophaceous disease; Translations: [HU W/O SIGNS IA AND TOPHACEOUS DZ] Onset: 05-08-2022 Episodic Other nutritional; endocrine; and metabolic disorders (15 sources) Hyperuricemia; Translations: [Hyperuricemia without signs of inflammatory arthritis and tophaceous disease] Onset: 04-12-2023 04-12-2023 Episodic Other screening for suspected conditions (not mental disorders or infectious disease) (20 sources) Raised prostate specific antigen; Translations: [Elevated prostate specific antigen [PSA]] Onset: 09-21-2022 Episodic Phlebitis; thrombophlebitis and thromboembolism (20 sources) Deep venous thrombosis of lower extremity; Translations: [Personal history of other venous thrombosis and embolism] Onset: 01-20-2023 09-18-2019 Episodic Residual codes; unclassified (20 sources) Family history of prostate cancer; Translations: [Family history of malignant neoplasm of prostate] Onset: 07-28-2023 Resolved: 11-04-2023 12-22-2021 Episodic Skin and subcutaneous tissue infections (15 sources) Cellulitis; Translations: [Cellulitis, unspecified] Onset: 04-12-2023 04-12-2023 Episodic Results Test Name Value Interpretation Reference Range Facility [facility] CMP (CMP) (FOR REMOTE [facility] C USE)on 10-26-2024 Albumin [Mass/Vol] 3.8 g/dL 3.4 - 5.0 g/dL [facility] ALBUMIN GLOBULIN RATIO 1.5 [facility] ALP [Catalytic activity/Vol] 60 U/L 46 - 116 U/L [facility] ALT [Catalytic activity/Vol] 56 U/L 16 - 63 U/L [facility] Anion gap [Moles/Vol] 14.2 mmol/L [facility] AST [Catalytic activity/Vol] 42 U/L High 15 - 37 U/L [facility] Bilirubin [Mass/Vol] 0.5 mg/dL 0.2 - 1.0 mg/dL [facility] Calcium [Mass/Vol] 10.2 mg/dL High 8.5 - 10. 1 mg/dL [facility] Chloride [Moles/Vol] 106 mmol/L 98 - 107 mmol/L [facility] CO2 [Moles/Vol] 27.4 mmol/L 21.0 - 32.0 mmol/L [facility] Creatinine [Mass/Vol] 1.32 mg/dL High 0.70 - 1.30 mg/dL [facility] GFR/1.73 sq M.predicted CKD-EPI (S/P/Bld) [Vol rate/Area] >60 >=60 mL/min/1.73m 2 [facility] Globulin (S) [Mass/Vol] 2.6 g/dL [facility] [facility] Glucose [Mass/Vol] 176 mg/dL High 74 - 106 mg/dL [facility] Interpretation and review of laboratory results Abnormal [facility] Potassium [Moles/Vol] 4.6 mmol/L 3.5 - 5.1 mmol/L [facility] Protein [Mass/Vol] 6.4 g/dL 6.4 - 8.2 g/dL [facility] Sodium [Moles/Vol] 143 mmol/L 136 - 145 mmol/L [facility] TBH EGFR-NON AF IVORIAN 53 Low >=60 mL/min/1.73m 2 [facility] Urea nitrogen [Mass/Vol] 35 mg/dL High 7.0 - 18.0 mg/dL [facility] Urea nitrogen/Creatinine [Mass ratio] 26.5 mg/mg [facility] Ambulatory Visit Summaryon 1 11-04-2023 Ambulatory Visit [...] Follow-Up Appointments Wednesday 10:45 AM EST With: Jude BEACH MD Where: [facility] [address] [place] [address]- You Need to Schedule the Following Appointments Follow Up with Jude BEACH MD, URL When: Where: [facility] [address], [place] [address]- Medications What How Much When Instructions New mirabegron (mirabegron 50 mg oral tablet, extended release) 1 Tablets By Mouth Every day Duration: 30 Days Refills: 11 Pickup at [facility]/pharmacy #[id number] Unchanged allopurinol (allopurinol 300 mg Tab) 1 [...] physician if questions or concerns Pharmacy Information [facility]/pharmacy #[id number]: [address], [place] [id number] [phone] Allergies Demerol (Shakes) Meperidine HCl-Promethazine HCl (Unknown) Problems Ongoing - Any problem that you are currently recei (more content not included)... Normal [facility] Urology Office/Clinic Noteon 09-04-2024 Urology Office/Clinic Note [...] mg ER qd. SEs discussed. Sent to [facility] [place]. 3. Elevated PSA (R97.20: Elevated prostate specific [...] [facility] [address], [place] [address]- Additional Instructions: 3 mos with PVR Patient [...] (10/26/2013), Cystoscopi (more content not included)... Normal [facility] Comment on above: Result Comment: Elec tronically Signed By: Jude BEACH MD\.br\Date and Time Signed: 09/04/24 14:27 EST\.br\Electronically Co-Signed By: Kenzie Fierro\.br\Date and Time Co-Signed: 09/04/24 14:26 EST MHPT PSA, DIAGNOSTICon 08-31 Interpretation and review of laboratory results [facility] PROSTATE SPECIFIC ANTIGEN DX 5.17 ng/mL High NINF - 4.00 ng/mL [facility] Healthcare XR pre/post mri xrayon 08-05 XR pre/post mri xray [facility] [place] [address] MRI Report Signed with Addenda Patient: Manuel Balderas MR#: [id number] : 1950 Acct:[id number] Age/Sex: 73 / M ADM Date: 08/05/23 Loc: [facility] Room: Type: [facility] Attending Dr: Olive Hampton PA-C Copies to: Olive Hampton PA-C Ordering Provider: Olive Hampton PA-C Date of Service: 08/05/23 MR/MR lumbar spine wo con: M54.10 ([id number]) XR/XR pre/post mri xray: LUMBAR MRI ADDENDUM 1 Addendum for director property error: L1-L2: Diffuse broad-based disc bulge is present with ligamentum flavum hypertrophy and facet joint degenerative changes causing moderate canal and bilateral neural foraminal stenosis. Impression dictated by: Rickie Cornejo Jr., DSiriaOSiria09/21/2023 12:23 PM Dictation Location: [place] [address] Addendum Dictated By: Rickie Cornejo Jr DO [...] Cornejo Jr., D.O.08/05/2023 3:00 PM Dictation Location: [place] [address] Transcribed By: [facility] 08/05/23 1500 Dictated By: Rickie Cornejo Jr, DO 08/05/23 1454 Signed By: 08/05/23 1500 Normal [facility] CITRATE URINE 24HRon 023 Citric Acid, U, 24hr 1042 mg/24 hr Normal 320-1240 [facility] Comment on above: Result Comment: This test was developed and its performance characteristics determined by [facility]. It has not been cleared or approved by the Food and Drug Administration. Performed By: #### C BC #### [facility] [address] [place] [address] [address] Cleveland Snowden Citric Acid, Urine 731 mg/L Normal Undefined [facility] Comment on above: Performed By: #### C BC #### [facility] [address] [place] [address] [address] Cleveland Snowden OXALATE 24HR URINEon 023 Oxalates, Urine 19 mg/L Normal Undefined [facility] Comment on above: Performed By: #### C BC #### [facility] [address] [place] [address] [address] Cleveland Snowden Oxalates, Urine 24hr 27 mg/24 hr Normal 7-44 [facility] Comment on above: Performed By: #### C BC #### [facility] [address] [place] [address] [address] Cleveland Snowden MAGNESIUM 24HR URINEon 02-05 Magnesium 24hr Urine 82.7 mg/24 hr Normal 12.0-293.0 [facility] Comment on above: Performed By: #### C BC #### [facility] [address] [place] [address] [address] Cleveland Snowden Magnesium UR 5.8 mg/dL Normal Not Estab. [facility] Comment on above: Performed By: #### C BC #### [facility] [address] [place], [place] [address] Dr. Cleveland Snowden PHOSPHORUS 24HR URINEon Phosphorus, Urine 59.7 mg/dL Normal Not Estab. [facility] Comment on above: Performed By: #### P T, PTT #### [facility] [address] [place] [address] [address] Cleveland Snowden Phosphorus, Urine 24hr 851 mg/24 hr Normal 390-1425 [facility] Comment on above: Performed By: #### P T, PTT #### [facility] [address] [place] [address] Dr. Cleveland Snowden PTH INTACTon 02-05-2023 PTH, Intact 18 pg/mL Normal 15-65 [facility] Comment on above: Performed By: #### P THINT #### [facility] [address] [place] [address] Dr. Cleveland Snowden URIC ACID 24 HR URINEon Uric Acid, Urine 36.4 mg/dL Normal Not Estab. [facility] Comment on above: Performed By: #### P T, PTT #### [facility] [address] [place] [address] Dr. Cleveland Snowden Uric Acid, Urine 24hr 518.7 mg/24 hr Normal 136.1-771.1 [facility] Comment on above: Performed By: #### P T, PTT #### [facility] [address] [place] [address] Dr. Cleveland Snowden BUNon 02-04-2023 Urea nitrogen [Mass/Vol] 22.0 mg/dL Critically high 7.0-18.0 [facility] Comment on above: Performed By: #### C BC #### [facility] [address] [place] [address] Dr. Cleveland Snowden CALCIUMon 02-04-2023 Calcium [Mass/Vol] 9.7 mg/dL Normal 8.5-10.1 [facility] Comment on above: Performed By: #### C BC #### [facility] [address] [place] [address] Dr. Cleveland Snowden CALCIUM 24 HR URINEon 2022 CALC, 24 HR UR 84.1 mg/24 hr Critically low 100.0-300.0 [facility] Comment on above: Performed By: #### C ALC24U #### [facility] [address] [place] [address] Dr. Cleveland Snowden UR CALCIUM 5.9 mg/dL Normal 5.1-21.0 [facility] Comment on above: Performed By: #### C ALC24U #### [facility] [address] [place] [address] Dr. Cleveland Snowden UR TOT VOL 1425 ml/24 HR Normal [facility] Comment on above: Performed By: #### C [id number] #### [facility] [address] [place] [address] Dr. Cleveland Snowden Performed By: #### C REA24U, NA24U #### [facility] [address] [place] [address] Dr. Cleveland Snowden Performed By: #### P T, PTT #### [facility] [address] [place] [address] Dr. Cleveland Snowden CHLORIDEon 02-04-2023 Chloride [Moles/Vol] 107 mmol/L Normal 98-107 [facility] Comment on above: Performed By: #### C BC #### [facility] [address] [place] [address] Dr. Cleveland Snowden CO2on 02-04-2023 CO2 [Moles/Vol] 33.7 mmol/L Critically high 21.0-32.0 [facility] Comment on above: Performed By: #### A 1C #### [facility] [address] [place] [address] Dr. Cleveland Snowden CREA 24 HR URINEon 3 CREA, 24 HR UR 1115.21 mg/24 hr Normal 1,000.00- 2,00 0.00 [facility] Comment on above: Performed By: #### P T, PTT #### [facility] [address] [place] [address] Dr. Cleveland Snowden URINE CREAT 78.26 mg/dL Normal 20.00-300.00 [facility] Comment on above: Performed By: #### P T, PTT #### [facility] [address] [place] [address] Dr. Cleveland Snowden CREATININEon 02-04-2023 Creatinine [Mass/Vol] 0.91 mg/dL Normal 0.70-1.30 [facility] Comment on above: Performed By: #### A 1C #### [facility] [address] [place] [address] Dr. Cleveland Snowden EGFR-AF IVORIAN >60 Normal >=60 [facility] Comment on above: Performed By: #### A 1C #### [facility] [address] [place] [address] Dr. Cleveland Snowden EGFR-NON AF IVORIAN >60 Normal >=60 [facility] Comment on above: Performed By: #### A 1C #### [facility] [address] [place] [address] Dr. Cleveland Snowden NAon 02-04-2023 Sodium [Moles/Vol] 144 mmol/L Normal 136-145 [facility] Comment on above: Performed By: #### C BC #### [facility] [address] [place] [address] Dr. Cleveland Snowden POTASSIUMon 02-04-2023 Potassium [Moles/Vol] 4.1 mmol/L Normal 3.5-5.1 [facility] Comment on above: Performed By: #### A 1C #### [facility] [address] [place] [address] Dr. Cleveland Snowden SODIUM 24 HR URINEon 023 NA, 24 HR UR 221 mmol/24 hr Critically high 40-220 [facility] Comment on above: Performed By: #### C REA24U, NA24U #### [facility] [address] [place] [address] Dr. Cleveland Snowden Sodium (U) [Moles/Vol] 155 mmol/L Critically high 30-90 [facility] Comment on above: Performed By: #### C REA24U, NA24U #### [facility] [address] [place] [address] Dr. Cleveland Snowden URIC ACID SERUMon 02-04-2023 Urate [Mass/Vol] 4.3 mg/dL Normal 3.5-7.2 [facility] Comment on above: Performed By: #### C BC #### [facility] [address] [place] [address] Dr. Cleveland Snowden POINT OF CARE GLUCOSEon 03-1 6-2023 Glucose [Mass/Vol] 237 mg/dL Critically high 74-106 [facility] Comment on above: Performed By: #### P T, PTT #### [facility] [address] [place] [address] Dr. Cleveland Snowden XR KUB 1 VIEWon [...] ISAK CORTEZ Date: 2023-01-14 08:37 Normal [facility] CBC AUTO DIFFon 01-08-2023 BASO # 0.0 103/ul Normal 0.0-0.1 [facility] Comment on above: Performed By: #### C BC #### [facility] [address] [place] [address] Dr. Cleveland Snowden Basophils/100 WBC (Bld) 0.4 % Normal 0.2-2.0 [facility] Comment on above: Performed By: #### C BC #### [facility] [address] [place] [address] Dr. Cleveland Snowden EO # 0.2 103/ul Normal 0.0-0.7 [facility] Comment on above: Performed By: #### C BC #### [facility] [address] [place] [address] Dr. Cleveland Snowden Eosinophils/100 WBC (Bld) 4.4 % Normal 0.9-7.0 [facility] Comment on above: Performed By: #### C BC #### [facility] [address] [place] [address] Dr. Cleveland Snowden Erythrocyte distribution width (RBC) [Ratio] 14.8 % Normal 11.0-15.0 [facility] Comment on above: Performed By: #### C BC #### [facility] [address] [place] [address] Dr. Cleveland Snowden Hematocrit (Bld) [Volume fraction] 35.7 % Critically low 42.0-54.0 [facility] Comment on above: Performed By: #### C BC #### [facility] [address] [place] [address] Dr. Cleveland Snowden Hemoglobin (Bld) [Mass/Vol] 12.0 g/dL Critically low 14.0-18.0 [facility] Comment on above: Performed By: #### C BC #### [facility] [address] [place] [address] Dr. Cleveland Snowden IG # 0.03 10e3/ul Normal 0.00-0.03 [facility] Comment on above: Performed By: #### C BC #### [facility] [address] [place] [address] Dr. Cleveland Snowden IG % 0.6 % Critically high 0.0-0.5 [facility] Comment on above: Performed By: #### C BC #### [facility] [address] [place] [address] Dr. Cleveland Snowden LYMPH # 0.7 103/ul Critically low 1.2-3.8 [facility] Comment on above: Performed By: #### C BC #### [facility] [address] [place] [address] Dr. Cleveland Snowden Lymphocytes/100 WBC (Bld) 14.4 % Critically low 20.5-60.0 [facility] Comment on above: Performed By: #### C BC #### [facility] [address] [place] [address] Dr. Cleveland Snowden MANUAL DIFF REQ NO Normal [facility] [place] Comment on above: Performed By: #### C BC #### [facility] [address] [place] [address] Dr. Cleveland Snowden MCH (RBC) [Entitic mass] 31.1 pg Normal 25.9-34.0 [facility] Comment on above: Performed By: #### C BC #### [facility] [address] [place] [address] Dr. Cleveland Snowden MCHC (RBC) [Mass/Vol] 33.6 g/dL Normal 29.9-35.2 [facility] Comment on above: Performed By: #### C BC #### [facility] [address] [place] [address] [address] Cleveland Snowden MCV (RBC) [Entitic vol] 92.5 fL Normal 80.0-94.0 [facility] Comment on above: Performed By: #### C BC #### [facility] [address] [place] [address] [address] Cleveland Snowden MONO # 0.5 103/ul Normal 0.3-0.8 [facility] Comment on above: Performed By: #### C BC #### [facility] [address] [place] [address] Dr. Cleveland Snowden Monocytes/100 WBC (Bld) 11.0 % Normal 1.7-12.0 [facility] Comment on above: Performed By: #### C BC #### [facility] [address] [place] [address] Dr. Cleveland Snowden NEUT # 3.3 103/ul Normal 1.4-6.5 [facility] Comment on above: Performed By: #### C BC #### [facility] [address] [place] [address] Dr. Cleveland Snowden Neutrophils/100 WBC (Bld) 69.2 % Normal 43.0-75.0 [facility] Comment on above: Performed By: #### C BC #### [facility] [address] [address] [address] Cleveland Snowden Platelet mean volume (Bld) [Entitic vol] 10.0 fL Normal 9.5-13.5 [facility] Comment on above: Performed By: #### C BC #### [facility] [address] [place] [address] Dr. Cleveland Snowden PLT 105 103/ul Critically low 150-450 [facility] Comment on above: Performed By: #### C BC #### [facility] [address] [place] [address] Dr. Cleveland Snowden RBC 3.86 106/ul Critically low 4.70-6.10 [facility] [place] Comment on above: Performed By: #### C BC #### [facility] [address] [place] [address] Dr. Cleveland Snowden WBC 4.8 103/ul Normal 4.0-11.0 [facility] Comment on above: Performed By: #### C BC #### [facility] [address] [place] [address] Dr. Cleveland Snowden PROF CHEM 8 (BAS METB)on Anion gap [Moles/Vol] 12.7 mmol/L Normal [facility] Comment on above: Performed By: #### C BC #### [facility] [address] [place] [address] Dr. Cleveland Snowden Calcium [Mass/Vol] 9.6 mg/dL Normal 8.5-10.1 [facility] Comment on above: Performed By: #### C BC #### [facility] [address] [place] [address] Dr. Cleveland Snowden Chloride [Moles/Vol] 107 mmol/L Normal 98-107 [facility] Comment on above: Performed By: #### C BC #### [facility] [address] [place] [address] Dr. Cleveland Snowden CO2 [Moles/Vol] 29.0 mmol/L Normal 21.0-32.[address] [facility] Comment on above: Performed By: #### C BC #### [facility] [address] [place] [address] Dr. Cleveland Snowden Creatinine [Mass/Vol] 0.76 mg/dL Normal 0.70-1.30 [facility] Comment on above: Performed By: #### C BC #### [facility] [address] [place] [address] Dr. Cleveland Snowden EGFR-AF IVORIAN >60 Normal >=[address] [facility] Comment on above: Performed By: #### C BC #### [facility] [address] [place] [address] Dr. Cleveland Snowden EGFR-NON AF IVORIAN >60 Normal >=60 [facility] Comment on above: Performed By: #### C BC #### [facility] [address] [address] [address] Cleveland Snowden Glucose [Mass/Vol] 127 mg/dL Critically high 74-106 [facility] Comment on above: Performed By: #### C BC #### [facility] [address] [address] [address] Cleveland Snowden Potassium [Moles/Vol] 3.7 mmol/L Normal 3.5-5.1 [facility] Comment on above: Performed By: #### C BC #### [facility] [address] [address] [address] Cleveland Snowden Sodium [Moles/Vol] 145 mmol/L Normal 136-145 [facility] Comment on above: Performed By: #### C BC #### [facility] [address] [address] [address] Cleveland Snowden Urea nitrogen [Mass/Vol] 21.0 mg/dL Critically high 7.0-18.0 [facility] Comment on above: Performed By: #### C BC #### [facility] [address] [address] [address] Cleveland Snowden Urea nitrogen/Creatinine [Mass ratio] 27.6 mg/mg Normal [facility] Comment on above: Performed By: #### C BC #### [facility] [address] [address] [address] Cleveland Snowden PROTIMEon 01-08-2023 INR Coag (PPP) [Relative time] 1.04 {INR} Normal [facility] Comment on above: Performed By: #### P T, PTT #### [facility] [address] [address] [address] Cleveland Snowden INR GUIDELINES SEE BELOW Normal [facility] Comment on above: Result Comment: ASHTYN RED INR: 2.0 - 3.0 CONDITIONS NOT LISTED BELOW 2.5 - 3.5 FOR PROSTHETIC HEART VALVE REPLACEMENT 2.5 - 3.5 RECURRENT THROMBOSIS Performed By: #### P T, PTT #### [facility] [address] [address] [address] Cleveland Snowden PT Coag (PPP) [Time] 11.0 s Normal 9.0-11.6 [facility] Comment on above: Performed By: #### P T, PTT #### [facility] [address] [place] [address] Dr. Cleveland Snowden PTTon 01-08-2023 aPTT Coag (Bld) [Time] 29.6 s Normal 22.3-36.2 [facility] Comment on above: Performed By: #### P T, PTT #### [facility] [address] [place] [address] Dr. Cleveland Snowden XR KUB 1 VIEWon [...] TALI ISRAEL Date: 2023-01-01 16:46 Normal [facility] GLYCOHEMOGLOBIN A1Con 2022 ADA RECOMMENDATION SEE BELOW Normal [facility] Comment on above: Result Comment: ADA RECOMMENDED LIMIT 4.0 - 6.0 ADA THERAPEUTIC TARGET < 7.0 ACTION SUGGESTED > 7.0 Performed By: #### A 1C #### [facility] [address] [place] [address] Dr. Cleveland Snowden Glucose [Mass/Vol] 126 mg/dL Normal [facility] Comment on above: Performed By: #### A 1C #### [facility] [address] [place] [address] Dr. Cleveland Snowden HbA1c (Bld) [Mass fraction] 6.0 % Normal 4.5-6.2 [facility] Comment on above: Performed By: #### A 1C #### [facility] [address] [place] [address] Dr. Cleveland Snowden XR KUB 1 VIEWon [...] by: TALI ISRAEL Date: 2022-09-09 15:01 Normal [facility] GLYCOHEMOGLOBIN A1Con 2021 ADA RECOMMENDATION SEE BELOW Normal [facility] Comment on above: Result Comment: ADA RECOMMENDED LIMIT 4.0 - 6.0 ADA THERAPEUTIC TARGET < 7.0 ACTION SUGGESTED > 7.0 Performed By: #### A 1C #### [facility] [address] [place] [address] Dr. Cleveland Snowden Glucose [Mass/Vol] 131 mg/dL Normal [facility] Comment on above: Performed By: #### A 1C #### [facility] [address] [place] [address] Dr. Cleveland Snowden HbA1c (Bld) [Mass fraction] 6.2 % Normal 4.5-6.2 [facility] Comment on above: Performed By: #### A 1C #### [facility] [address] [place] [address] Dr. Cleveland Snowden LIPID PROFILEon 08-06-2022 CHOL-HDL RATIO NORM SEE BELOW Normal [facility] Comment on above: Result Comment: 3.3 - 4.4 LOW RISK 4.4 - 7.1 AVERAGE RISK 7.1 - 11.0 MODERATE RISK >11.0 HIGH RISK Performed By: #### A 1C #### [facility] [address] [place] [address] Dr. Cleveland Snowden Cholesterol [Mass/Vol] 108 mg/dL Normal <=200 [facility] Comment on above: Performed By: #### A 1C #### [facility] [address] [place] [address] Dr. Cleveland Snowden Cholesterol in HDL [Mass/Vol] 36 mg/dL Critically low 40-60 [facility] Comment on above: Performed By: #### A 1C #### [facility] [address] [address] [address] Cleveland Snowden Cholesterol in LDL [Mass/Vol] 45.0 mg/dL Normal [facility] Comment on above: Performed By: #### A 1C #### [facility] [address] [address] [address] Cleveland Snowden Cholesterol.total/C holesterol in HDL [Mass ratio] 3.0 {ratio} Normal [facility] Comment on above: Performed By: #### A 1C #### [facility] [address] [place] [address] Dr. Cleveland Snowden HDL NORMAL > or = 60 mg/dl - LO W CARDIOVASCULAR RISK <40 mg/dl - HIGH CARDIOVASCULAR RISK Normal [facility] Comment on above: Performed By: #### A 1C #### [facility] [address] [address] [address] lCeveland Snowden LDL CALC NORMAL SEE BELOW Normal [facility] [place] Comment on above: Result Comment: <100 mg/dl OPTIMAL 100 - 129 mg/dl NEAR OR ABOVE OPTIMAL 130 - 159 mg/dl BORDERLINE HIGH 160 - 189 mg/dl HIGH >190 mg/dl VERY HIGH Performed By: #### A 1C #### [facility] [address] [place] [address] Dr. Cleveland Snowden Triglyceride [Mass/Vol] 135 mg/dL Normal <=150 [facility] Comment on above: Performed By: #### A 1C #### [facility] [address] [address] [address] Cleveland Snowden VLDL CALC 27.0 mg/dL Normal [facility] Comment on above: Performed By: #### A 1C #### [facility] [address] [place] [address] Dr. Cleveland Snowden GLYCOHEMOGLOBIN A1Con 2021 ADA RECOMMENDATION SEE BELOW Normal [facility] Comment on above: Result Comment: ADA RECOMMENDED LIMIT 4.0 - 6.0 ADA THERAPEUTIC TARGET < 7.0 ACTION SUGGESTED > 7.0 Performed By: #### A 1C #### [facility] [address] [address] [address] Cleveland Snowden Glucose [Mass/Vol] 154 mg/dL Normal [facility] Comment on above: Performed By: #### A 1C #### [facility] [address] [address] [address] Cleveland Snowden HbA1c (Bld) [Mass fraction] 7.0 % Critically high 4.5-6.2 [facility] Comment on above: Performed By: #### A 1C #### [facility] [address] [address] [address] Cleveland Snowden LIPID PROFILEon 05-05-2022 CHOL-HDL RATIO NORM SEE BELOW Normal [facility] Comment on above: Result Comment: 3.3 - 4.4 LOW RISK 4.4 - 7.1 AVERAGE RISK 7.1 - 11.0 MODERATE RISK >11.0 HIGH RISK Performed By: #### P T, PTT #### [facility] [address] [place] [address] Dr. Cleveland Snowden Cholesterol [Mass/Vol] 104 mg/dL Normal <=200 [facility] Comment on above: Performed By: #### P T, PTT #### [facility] [address] [address] [address] Cleveland Snowden Cholesterol in HDL [Mass/Vol] 24 mg/dL Critically low 40-60 [facility] Comment on above: Performed By: #### P T, PTT #### [facility] Laboratory [address] [address] [address] Cleveland Snowden Cholesterol in LDL [Mass/Vol] 28.0 mg/dL Normal [facility] Comment on above: Performed By: #### P T, PTT #### [facility] [address] [address] [address] Cleveland Snowden Cholesterol.total/C holesterol in HDL [Mass ratio] 4.3 {ratio} Normal [facility] Comment on above: Performed By: #### P T, PTT #### [facility] [address] [address] [address] Cleveland Snowden HDL NORMAL > or = 60 mg/dl - LO W CARDIOVASCULAR RISK <40 mg/dl - HIGH CARDIOVASCULAR RISK Normal [facility] Comment on above: Performed By: #### P T, PTT #### [facility] [address] [address] [address] Cleveland Snowden LDL CALC NORMAL SEE BELOW Normal [facility] [place] Comment on above: Result Comment: <100 mg/dl OPTIMAL 100 - 129 mg/dl NEAR OR ABOVE OPTIMAL 130 - 159 mg/dl BORDERLINE HIGH 160 - 189 mg/dl HIGH >190 mg/dl VERY HIGH Performed By: #### P T, PTT #### [facility] [address] [address] [address] Cleveland Snowden Triglyceride [Mass/Vol] 260 mg/dL Critically high <=150 [facility] Comment on above: Performed By: #### P T, PTT #### [facility] [address] [address] [address] Cleveland Snowden VLDL CALC 52.0 mg/dL Normal [facility] Comment on above: Performed By: #### P T, PTT #### [facility] [address] [address] [address] Cleveland Snowden PROF 14(COMP METB)on 022 Albumin [Mass/Vol] 3.5 g/dL Normal 3.4-5.0 [facility] Comment on above: Performed By: #### P T, PTT #### [facility] [address] [address] [address] Cleveland Snowden Albumin/Globulin [Mass ratio] 1.1 {ratio} Normal [facility] Comment on above: Performed By: #### P T, PTT #### [facility] [address] [address] [address] Cleveland Snowden ALP [Catalytic activity/Vol] 59 U/L Normal 46-116 [facility] Comment on above: Performed By: #### P T, PTT #### [facility] [address] [address] [address] Cleveland Snowden ALT [Catalytic activity/Vol] 46 U/L Normal 16-63 [facility] Comment on above: Performed By: #### P T, PTT #### [facility] [address] [address] [address] Cleveland Snowden Anion gap [Moles/Vol] 14.7 mmol/L Normal [facility] Comment on above: Performed By: #### P T, PTT #### [facility] [address] [address] [address] Cleveland Snowden AST [Catalytic activity/Vol] 46 U/L Critically high 15-37 [facility] Comment on above: Performed By: #### P T, PTT #### [facility] [address] [address] [address] Cleveland Snowden Bilirubin [Mass/Vol] 0.5 mg/dL Normal 0.2-1.0 [facility] Comment on above: Performed By: #### P T, PTT #### [facility] [address] [address] [address] Cleveland Snowden Calcium [Mass/Vol] 9.5 mg/dL Normal 8.5-10.1 [facility] Comment on above: Performed By: #### P T, PTT #### [facility] [address] [address] [address] Cleveland Snowden Chloride [Moles/Vol] 103 mmol/L Normal 98-107 [facility] Comment on above: Performed By: #### P T, PTT #### [facility] [address] [address] [address] Cleveland Snowden CO2 [Moles/Vol] 28.1 mmol/L Normal 21.0-32.[address] [facility] Comment on above: Performed By: #### P T, PTT #### [facility] [address] [address] [address] Cleveland Snowden Creatinine [Mass/Vol] 0.84 mg/dL Normal 0.70-1.30 [facility] Comment on above: Performed By: #### P T, PTT #### [facility] [address] [address] [address] Cleveland Snowden EGFR-AF IVORIAN >60 Normal >=60 [facility] Comment on above: Performed By: #### P T, PTT #### [facility] [address] [address] [address] Cleveland Snowden EGFR-NON AF IVORIAN >60 Normal >=60 [facility] Comment on above: Performed By: #### P T, PTT #### [facility] [address] [address] [address] Cleveland Snowden Globulin (S) [Mass/Vol] 3.1 g/dL Normal [facility] Comment on above: Performed By: #### P T, PTT #### [facility] [address] [address] [address] Cleveland Snowden Glucose [Mass/Vol] 176 mg/dL Critically high 74-106 [facility] Comment on above: Performed By: #### P T, PTT #### [facility] [address] [place] [address] Dr. Cleveland Snowden Potassium [Moles/Vol] 3.8 mmol/L Normal 3.5-5.1 [facility] Comment on above: Performed By: #### P T, PTT #### [facility] [address] [place] [address] Dr. Cleveland Snowden Protein [Mass/Vol] 6.6 g/dL Normal 6.4-8.2 [facility] Comment on above: Performed By: #### P T, PTT #### [facility] [address] [place] [address] Dr. Cleveland Snowden Sodium [Moles/Vol] 142 mmol/L Normal 136-145 [facility] Comment on above: Performed By: #### P T, PTT #### [facility] [address] [address] [address] Cleveland Snowden Urea nitrogen [Mass/Vol] 24.0 mg/dL Critically high 7.0-18.0 [facility] Comment on above: Performed By: #### P T, PTT #### [facility] [address] [place] [address] Dr. Cleveland Snowden Urea nitrogen/Creatinine [Mass ratio] 28.6 mg/mg Normal [facility] Comment on above: Performed By: #### P T, PTT #### [facility] [address], [place] [address] Dr. Cleveland Snowden URIC ACID SERUMon 05-05-2022 Urate [Mass/Vol] 6.2 mg/dL Normal 3.5-7.2 [facility] Comment on above: Performed By: #### P T, PTT #### [facility] [address], [place] [address] Dr. Cleveland Snowden Basophils Auto (Bld) [#/Vol] on 04-03-2021 Basophils (Bld) [#/Vol] 0.0 10*3/uL 0.0-0.2 [facility] Basophils/100 WBC Auto (Bld) on 04-03-2021 Basophils/100 WBC (Bld) 0.6 % [facility] Blood hemoglobin measurement (mass/volume)on 04-03-2021 Hemoglobin (Bld) [Mass/Vol] 12.2 g/dL 13.0-17.0 [facility] Blood leukocytes automated c ount (number/volume)on 04-03-2021 WBC (Bld) [#/Vol] 4.7 10*3/uL 4.5-11.0 [facility] [place] Creatinine and Glomerular fi ltration rate.predicted panel (S/P/Bld)on 04-03-2021 Creatinine [Mass/Vol] 0.68 mg/dL 0.64-1.27 [facility] Eosinophils Auto (Bld) [#/Vo l]on 04-03-2021 Eosinophils (Bld) [#/Vol] 0.1 10*3/uL 0.0-0.45 [facility] Eosinophils/100 WBC Auto (Bl d)on 04-03-2021 Eosinophils/100 WBC (Bld) 3.1 % [facility] Erythrocyte distribution wid th Auto (RBC) [Ratio]on 04-03-2021 Erythrocyte distribution width (RBC) [Ratio] 15.0 % 12.0-14.8 [facility] Estimated glomerular filtrat ion rate (GFR) non- Americanon 04-03-2021 GFR/1.73 sq M.predicted among non-blacks MDRD (S/P/Bld) [Vol rate/Area] > 60 mL/Min [facility] Hematocrit Auto (Bld) [Volum e fraction]on 04-03-2021 Hematocrit (Bld) [Volume fraction] 36.2 % 38.8-50.0 [facility] Laboratory - Hematology and Cell countson 04-03-2021 Nucleated RBC/100 WBC (Bld) [Ratio] 0.2 % 0-0.5 [facility] Lymphocytes Auto (Bld) [#/Vo l]on 04-03-2021 Lymphocytes (Bld) [#/Vol] 0.7 10*3/uL 1.00-4.8 [facility] Lymphocytes/100 WBC Auto (Bl d)on 04-03-2021 Lymphocytes/100 WBC (Bld) 14.5 % [facility] MCH Auto (RBC) [Entitic mass ]on 04-03-2021 MCH (RBC) [Entitic mass] 31.3 pg 27.5-35.2 [facility] MCHC Auto (RBC) [Mass/Vol]on 04-03-2021 MCHC (RBC) [Mass/Vol] 33.8 g/dL 32.5-35.6 [facility] MCV Auto (RBC) [Entitic vol] on 04-03-2021 MCV (RBC) [Entitic vol] 92.6 fL 83.5-101 [facility] Monocytes Auto (Bld) [#/Vol] on 04-03-2021 Monocytes (Bld) [#/Vol] 0.5 10*3/uL 0.0-0.8 [facility] Monocytes/100 WBC Auto (Bld) on 04-03-2021 Monocytes/100 WBC (Bld) 10.7 % [facility] Neutrophils Auto (Bld) [#/Vo l]on 04-03-2021 Neutrophils (Bld) [#/Vol] 3.3 10*3/uL 1.8-7.7 [facility] Neutrophils/100 WBC Auto (Bl d)on 04-03-2021 Neutrophils/100 WBC (Bld) 71.1 % [facility] No Panel Informationon 04-03 Estimated GFR () > 60 mL/Min [facility] Comment on above: GFR estimated refere nce range: According to KDOQI guidelines, <60 ml/min/1.73m2 is sufficient to diagnose a patient with chronic kidney disease. Pharmacy Creatinine Clearance (Chem N/A [facility] Platelet mean volume Auto (B ld) [Entitic vol]on 04-03-2021 Platelet mean volume (Bld) [Entitic vol] 8.5 fL 6.6-10.1 [facility] Platelets Auto (Bld) [#/Vol] on 04-03-2021 Platelets (Bld) [#/Vol] 137 10*3/uL 150-450 [facility] RBC Auto (Bld) [#/Vol]on RBC (Bld) [#/Vol] 3.91 10*6/uL 3.90-5.60 [facility] Serum or plasma calcium edu urement (mass/volume)on 04-03-2021 Calcium [Mass/Vol] 9.8 mg/dL 8.2-10.2 [facility] [place] Serum or plasma chloride merlyn surement (moles/volume)on 04-03-2021 Chloride [Moles/Vol] 100 mmol/L 95-114 [facility] Serum or plasma glucose edu urement (mass/volume)on 04-03-2021 Glucose [Mass/Vol] 184 mg/dL 70-100 [facility] [place] Comment on above: ADA recommended refe rence rangeRandom Glucose Reference Range is dependent on time and content of last meal. Glucose of more than 200 mg/dL in a nonstressed, ambulatory subject supports the diagnosis of Diabetes Mellitus. Serum or plasma potassium me asurement (moles/volume)on 04-03-2021 Potassium [Moles/Vol] 3.6 mmol/L 3.5-5.1 [facility] Serum or plasma sodium measu rement (moles/volume)on 04-03-2021 Sodium [Moles/Vol] 138 mmol/L 136-146 [facility] [place] Serum or plasma total carbon dioxide measurement (moles/volume)on 04-03-2021 CO2 [Moles/Vol] 26.3 mmol/L 22.0-30.0 [facility] Serum or plasma urea nitroge n measurement (mass/volume)on 04-03-2021 Urea nitrogen [Mass/Vol] 17 mg/dL 9-23 [facility] Basophils Auto (Bld) [#/Vol] on 02-11-2021 Basophils (Bld) [#/Vol] 0.0 10*3/uL 0.0-0.2 [facility] Basophils/100 WBC Auto (Bld) on 02-11-2021 Basophils/100 WBC (Bld) 0.6 % [facility] Blood hemoglobin measurement (mass/volume)on 02-11-2021 Hemoglobin (Bld) [Mass/Vol] 12.6 g/dL 13.0-17.0 [facility] Blood leukocytes automated c ount (number/volume)on 02-11-2021 WBC (Bld) [#/Vol] 4.4 10*3/uL 4.5-11.0 [facility] [place] Eosinophils Auto (Bld) [#/Vo l]on 02-11-2021 Eosinophils (Bld) [#/Vol] 0.2 10*3/uL 0.0-0.45 [facility] Eosinophils/100 WBC Auto (Bl d)on 02-11-2021 Eosinophils/100 WBC (Bld) 3.8 % [facility] Erythrocyte distribution wid th Auto (RBC) [Ratio]on 02-11-2021 Erythrocyte distribution width (RBC) [Ratio] 14.9 % 12.0-14.8 [facility] Hematocrit Auto (Bld) [Volum e fraction]on 02-11-2021 Hematocrit (Bld) [Volume fraction] 36.1 % 38.8-50.0 [facility] Laboratory - Hematology and Cell countson 02-11-2021 Nucleated RBC/100 WBC (Bld) [Ratio] 0.1 % 0-0.5 [facility] Lymphocytes Auto (Bld) [#/Vo l]on 02-11-2021 Lymphocytes (Bld) [#/Vol] 0.7 10*3/uL 1.00-4.8 [facility] Lymphocytes/100 WBC Auto (Bl d)on 02-11-2021 Lymphocytes/100 WBC (Bld) 15.4 % [facility] MCH Auto (RBC) [Entitic mass ]on 02-11-2021 MCH (RBC) [Entitic mass] 32.5 pg 27.5-35.2 [facility] MCHC Auto (RBC) [Mass/Vol]on 02-11-2021 MCHC (RBC) [Mass/Vol] 34.8 g/dL 32.5-35.6 [facility] MCV Auto (RBC) [Entitic vol] on 02-11-2021 MCV (RBC) [Entitic vol] 93.3 fL 83.5-101 [facility] Monocytes Auto (Bld) [#/Vol] on 02-11-2021 Monocytes (Bld) [#/Vol] 0.5 10*3/uL 0.0-0.8 [facility] Monocytes/100 WBC Auto (Bld) on 02-11-2021 Monocytes/100 WBC (Bld) 12.1 % [facility] Neutrophils Auto (Bld) [#/Vo l]on 02-11-2021 Neutrophils (Bld) [#/Vol] 3.0 10*3/uL 1.8-7.7 [facility] Neutrophils/100 WBC Auto (Bl d)on 02-11-2021 Neutrophils/100 WBC (Bld) 68.1 % [facility] Platelet mean volume Auto (B ld) [Entitic vol]on 02-11-2021 Platelet mean volume (Bld) [Entitic vol] 8.2 fL 6.6-10.1 [facility] Platelets Auto (Bld) [#/Vol] on 02-11-2021 Platelets (Bld) [#/Vol] 118 10*3/uL 150-450 [facility] RBC Auto (Bld) [#/Vol]on RBC (Bld) [#/Vol] 3.87 10*6/uL 3.90-5.60 [facility] Creatinine (Bld) [Mass/Vol]o n 01-10-2021 Creatinine [Mass/Vol] 0.7 mg/dL 0.6-1.3 [facility] Comment on above: ER/ESD physician is notified/shown all ISTAT results.Critical values may be confirmed by laboratory testing ifdeemed necessary by ER attending doctor. No Panel Informationon 01-10 POC Estimated GFR > 60 [facility] Comment on above: GFR estimated refere nce range: According to KDOQI guidelines, <60 ml/min/1.73m2 is sufficient to diagnose a patient with chronic kidney disease. POC Estimated GFR Non- Amer > 60 [facility] Vital Signs Date Time Vital Sign Value Performing Clinician Facility 09-14-2024 14:55-0500 Body height 185.4 cm Preet DAMONM Work Phone: [facility] 09-14-2024 14:55-0500 Body mass index (BMI) [Ratio] 37.07 kg/m2 Preet Enrique DPM Work Phone: [facility] 09-14-2024 14:55-0500 Body weight 127.46 kg Preet Enrique DPM Work Phone: [facility] 09-04-2024 13:06-0500 Blood Pressure Location [facility] 09-04-2024 13:06-0500 Diastolic blood pressure 71 mm[Hg] Jude [facility] 09-04-2024 13:06-0500 Heart rate 58 /min Jude [facility] 09-04-2024 13:06-0500 Respiratory rate 18 /min Jdue [facility] 09-04-2024 13:06-0500 Systolic blood pressure 130 mm[Hg] Jude [facility] 08-08-2024 12:34-0400 Body height 185.4 cm Olive MULLINS Work Phone: [facility] 08-08-2024 12:34-0400 Body mass index (BMI) [Ratio] 37.07 kg/m2 Olive Hampton PA Work Phone: [facility] 08-08-2024 12:34-0400 Body weight 127.46 kg Olive Connor PA Work Phone: [facility] 08-08-2024 12:34-0400 Diastolic blood pressure 84 mm[Hg] Olive Hampton PA Work Phone: [facility] 08-08-2024 12:34-0400 Heart rate 52 /min Olive Connor PA Work Phone: [facility] 08-08-2024 12:34-0400 Respiratory rate 16 /min Olive Connor PA Work Phone: [facility] 08-08-2024 12:34-0400 SaO2% (BldA) [Mass fraction] 99 % Olive Connor PA Work Phone: [facility] 08-08-2024 12:34-0400 Systolic blood pressure 130 mm[Hg] Olive Hampton PA Work Phone: [facility] 07-26-2024 15:43-0400 Body height 185.4 cm Elina Wellsr HEALTH ADMINISTRATOR Work Phone: [facility] 07-26-2024 15:43-0400 Body mass index (BMI) [Ratio] 37.34 kg/m2 Elina Lyricmor HEALTH ADMINISTRATOR Work Phone: [facility] 07-26-2024 15:43-0400 Body weight 128.37 kg Elina Lyricmor HEALTH ADMINISTRATOR Work Phone: [facility] 07-26-2024 15:43-0400 Diastolic blood pressure 80 mm[Hg] Elina Lyricmor HEALTH ADMINISTRATOR Work Phone: [facility] 07-26-2024 15:43-0400 Heart rate 69 /min Elina Lyricmor HEALTH ADMINISTRATOR Work Phone: [facility] 07-26-2024 15:43-0400 SaO2% (BldA) [Mass fraction] 97 % Elina Lyricmor HEALTH ADMINISTRATOR Work Phone: [facility] 07-26-2024 15:43-0400 Systolic blood pressure 132 mm[Hg] Elina Wellsclifford HEALTH ADMINISTRATOR Work Phone: [facility] 12-09-2023 11:01-0500 Body height 190.5 cm Preet Enrique DPM Work Phone: [facility] 12-09-2023 11:01-0500 Body mass index (BMI) [Ratio] 36.87 kg/m2 Preet Haja DPM Work Phone: [facility] 12-09-2023 11:01-0500 Body weight 133.81 kg Preet Enrique DPM Work Phone: [facility] 07-21-2023 13:32-0400 Blood Pressure Location [facility] 07-21-2023 13:32-0400 Diastolic blood pressure 64 mm[Hg] [facility] 07-21-2023 13:32-0400 Heart rate 54 /min Jude [facility] 07-21-2023 13:32-0400 Systolic blood pressure 117 mm[Hg] Jude [facility] 01-05-2023 10:47-0500 Blood Pressure Location Jude [facility] 01-05-2023 10:47-0500 Diastolic blood pressure 93 mm[Hg] Jude [facility] 01-05-2023 10:47-0500 Heart rate 58 /min Jude [facility] 01-05-2023 10:47-0500 Systolic blood pressure 152 mm[Hg] Jude [facility] Encounters Encounter Date Encounter Type Care Provider Facility Start: 12-18-2024 ambulatory Jude R NINA Facili ty:[facility] Start: 11-11-2024 End: 11-14-2024 Refill Khoa Bowles MD Work Phone: [facility] Comment on above: Type 2 diabetes nishant itus with hyperglycemia, without long-term current use of insulin (CMS/FORMERLY [facility]) Start: 10-31-2024 End: 10-31-2024 Bamboo flowsheet Khoa Bowles MD Work Phone: [facility] Start: 10-31-2024 End: 10-31-2024 Bamboo flowsheet Khoa Bowles MD Work Phone: [facility] Start: 10-31-2024 End: 10-31-2024 ambulatory KHOA BOWLES Not Available Start: 10-26-2024 End: 10-26-2024 Clinisync Result Encounter Khoa Bowles MD Work Phone: [facility] Unsolicited Start: 10-26-2024 End: 10-26-2024 Clinisync Result Encounter Khoa Bowles MD Work Phone: [facility] Unsolicited Start: 10-16-2024 End: 10-17-2024 Refill Khoa Bowles MD Work Phone: [facility] Comment on above: Diabetic nephropathy associated with type 2 diabetes mellitus (HCC) (CMS/HCC) Start: 09-14-2024 End: 09-14-2024 Patient encounter procedure Preet Enrique DPM Work Phone: [facility] Comment on above: 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, not 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) (CMS/HCC) (Primary Dx); Onychomycosis; Acquired keratoderma Start: 09-14-2024 End: 09-14-2024 ambulatory PREET ENRIQUE Not Available Start: 09-14-2024 End: 09-14-2024 Bamboo flowsheet Preet Enrique DPM Work Phone: [facility] Start: 09-14-2024 End: 09-14-2024 Bamboo flowsheet Preet Enrique DPM Work Phone: [facility] Start: 09-04-2024 End: 09-04-2024 ambulatory Jude BEACH Facility:[facility] Start: 09-04-2024 End: 09-04-2024 Patient encounter procedure Jude Crespo [facility] Start: 08-31-2024 End: 08-31-2024 Clinisync Result Encounter Generic External Data Provider [facility] External [facility] Unsolicited Start: 08-31-2024 End: 08-31-2024 Clinisync Result Encounter Generic External Data Provider [facility] External [facility] Unsolicited Start: 08-08-2024 End: 08-08-2024 Bamboo flowsheet Olive [...] Office outpatient visit 25 minutes Elina Guzmán NP Work Phone: [facility] [address] Comment on above: Obstructive sleep ap rohith syndrome (Primary Dx); Snoring; Obesity (BMI 30-39.9); Hypersomnia Start: 07-26-2024 End: 07-26-2024 ambulatory ELINA GUZMÁN Not Available Start: 07-26-2024 End: 07-26-2024 Bamboo flowsheet Elina Guzmán HEALTH ADMINISTRATOR Work Phone: [facility] [address] Start: 07-26-2024 End: 07-26-2024 Bamboo flowsheet Elina Guntermor HEALTH ADMINISTRATOR Work Phone: [facility] [address] Start: 07-26-2024 End: 07-26-2024 ambulatory Jude BEACH Facility:[facility] Start: 07-26-2024 End: 07-26-2024 Patient encounter procedure Jude [facility] Start: 07-24-2024 End: 07-24-2024 Telephone encounter Khoa Bowles MD Work Phone: [facility] Comment on above: Care Coordination Start: 06-15-2024 End: 06-15-2024 ambulatory PREET ENRIQUE Not Available Start: 05-29-2024 End: 05-29-2024 ambulatory [facility] Start: 05-18-2024 End: 05-18-2024 ambulatory [facility] Start: 05-15-2024 End: 05-15-2024 ambulatory [facility] Start: 05-02-2024 End: 05-02-2024 ambulatory KHOA BOWLES Not Available Start: 04-11-2024 End: 04-11-2024 ambulatory OLIVE HAMPTON Not Available Start: 04-03-2024 End: 04-03-2024 ambulatory KHOA BOWLES Not Available Start: 2024 ambulatory KHOA BOWLES [facility] Start: 03-14-2024 End: 03-14-2024 ambulatory PREET ENRIQUE Not Available Start: 03-09-2024 End: 03-09-2024 ambulatory [facility] Start: 02-14-2024 End: 02-14-2024 ambulatory KHOA BOWLES Not Available Start: 02-03-2024 End: 02-03-2024 ambulatory KHOA BOWLES Not Available Start: 12-09-2023 End: 12-09-2023 Patient encounter procedure Preet Enrique DPM Work Phone: [facility] Comment on above: 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 Start: 08-05-2023 End: 08-05-2023 ambulatory MD Khoa Bowles Work Phone: [facility] Work Phone: Start: 08-05-2023 End: 08-05-2023 Patient encounter procedure MD Khoa Bowles Work Phone: [facility] [address] Work Phone: Start: 07-21-2023 End: 07-21-2023 Patient encounter procedure Jude [facility] Start: 07-16-[address] KHOA CASILLAS . Facility:[facility] Start: 02-04-2023 End: 02-05-[address] JUDE BEACH . Facility:[facility] Start: 01-14-2023 End: 01-14-[address] JUDE BEACH . Facility:[facility] Start: 01-12-2023 Encounter for other preprocedural examination DR JUDE BEACH . [facility] Start: 01-12-2023 Encounter for prepro cedural cardiovascular examination DR JUDE BEACH . [facility] Start: 01-12-2023 Encounter for prepro cedural laboratory examination DR JUDE BEACH . [facility] Start: 01-08-2023 End: 01-09-[address] JUDE BEACH . Facility:[facility] Start: 01-08-2023 End: 01-09-2023 Encounter for preprocedural laboratory examination DR JUDE BEACH . Facility:[facility] Start: 01-05-2023 End: 01-05-2023 Patient encounter procedure Jude [facility] Start: 12-31-2022 End: 01-01-[address] KHOA BOWLES . Facility:[facility] Start: 11-02-[address] KHOA CASILLAS . Facility:[facility] Start: 09-21-2022 End: 09-21-2022 Patient encounter procedure Jude [facility] Start: 09-09-2022 End: 09-10-[address] JUDE BEACH . Facility:[facility] Start: 08-06-2022 End: 08-07-[address] KHOA BOWLES . Facility:[facility] Start: 05-05-2022 End: 05-06-[address] KHOA BOWLES . Facility:[facility] Start: 04-03-2021 End: 04-03-2021 Patient encounter procedure Khoa Bowles Work Phone: -Pre-Surgical Testing Start: 02-11-2021 End: 02-11-2021 Patient encounter procedure Khoa Bowles Work Phone: -Lab [address] Start: 01-10-2021 End: 01-10-2021 Patient encounter procedure Khoa Bowles Work Phone: -MRI [address] Procedures Date Procedure Procedure Detail Performing Clinician Start: 10-26-2024 [facility] CMP (CMP) (FOR [facility] USE) Khoa Bowles MD Work Phone: Start: 08-31-2024 MHPT PSA, DIAGNOSTIC Ge neric External Data Provider Start: 08-05-2023 XR pre/post mri xray MD Khoa Bowles Work Phone: Start: 08-05-2023 MR lumbar spine wo con MD Couch Jelena Work Phone: Start: 01-14-2023 Extracorporeal shock wave lithotripsy of calculus of kidney Jude BEACH Start: 12-31-[address] FRED BEACH . Comment on above: Performed By: #### P T, PTT #### [facility] [address] [place] [address] Dr. Cleveland Snowden Start: 09-09-[address] FRED BEACH . Comment on above: Performed By: #### P SAD #### [facility] [address] [place] [address] Dr. Cleveland Snowden Start: 01-10-2021 MRI of [...] extracti on of ureteric calculus without disintegration Judestuart BEACH Start: 11-23-2013 Cystoscopic extracti on of ureteric calculus without disintegration Jude BEACH Start: 10-26-2013 Cystoscopic insertio n of ureteric stent Jude BEACH Start: 07-01-2004 Cystoscopic removal of ureteric stent Jude BEACH Start: 06-24-2004 Cystoscopic extracti on of ureteric calculus without disintegration Jude BEACH Ankle region structu re (body structure) Jude BEACH Back structure, excl uding neck (body structure) Jude BEACH Capsulotomy of lens Jude BEACH Cataract (disorder) Jude BEACH Cellulitis (disorder) Fred BEACH Colonoscopy Jude BEACH History of - varicos e veins (context-dependent category) Jude BEACH History of hernia repair Elke BEACH Rotator cuff includi ng muscles and tendons (body structure) Jude BEACH Plan of Treatment Date Care Activity Detail Author Start: 06-17-2026 Screening for malign ant neoplasm of colon [facility] Start: 02-24-2026 Glaucoma screening Diabetes: R etinopathy Screening [facility] Start: 07-24-2025 End: 07-24-2025 Patient encounter procedure [facility] [place] [facility] Start: 04-24-2025 End: 04-24-2025 Patient encounter procedure 04/24/2025 11:30 AM EDT Office Visit [facility] [address] [place] [address] Khoa Bowles MD [address] [place] [id number] [facility] Start: 04-03-2025 Medicare Annual Wellness (AWV) Medicare Annual Wellness (AWV) [facility] Start: 01-22-2025 End: 01-22-2025 Patient encounter procedure [facility] Start: 12-28-2024 End: 12-28-2024 Patient encounter procedure 12/28/2024 2:00 PM EST Procedure Visit [facility] [address] [place] [address] Preet Enrique, DPM [address] [place] [address] [facility] Start: 10-31-2024 End: 10-31-2024 Patient encounter procedure [facility] 100 Comment on above: Arrived Start: 09-14-2024 End: 09-14-2024 Patient encounter procedure 09/14/2024 3:00 PM EST Procedure Visit [facility] [address] [place] [id number] Preet Enrique, DPM [address] [place] [address] [facility] Start: 08-08-2024 End: 08-08-2024 Patient encounter procedure [facility] Comment on above: Arrived Start: 07-26-2024 End: 07-26-2024 Patient encounter procedure [facility] Comment on above: Arrived Start: 07-02-2024 Influenza vaccination Influenza Vacc ine (#1) [facility] Start: 06-08-2024 Glaucoma screening Diabetes: R etinopathy Screening [facility] Start: 03-09-2024 End: 03-09-2024 Patient encounter procedure 03/09/2024 1:00 PM EDT Procedure Visit [facility] [address] [facility] [id number] Preet Enrique, DPM [address] [place] [address] [facility] Start: 02-23-2024 Medicare Annual Wellness (AWV) Medicare Annual Wellness (AWV) [facility] Start: 02-03-2024 End: 02-03-2024 Patient encounter procedure 02/03/2024 11:30 AM EDT Office Visit [facility] [address] [facility] [place] [address] Khoa Bowles MD [address] [facility] [place] [address] [facility] Start: 01-18-2024 Hemoglobin A1c measurement Diabetes: Hemoglobin A1C [facility] Start: 01-09-2024 Urine screening for protein Diabetes: Urine Protein Screening [facility] Start: 11-18-2022 Urine screening for protein Diabetes: Urine Protein Screening [facility] Start: 1950 Screening for malign ant neoplasm of colon [facility] Immunizations Immunization Date Immunization Notes Care Provider [facility] 10-14-2023 Influenza, Seasonal, Quadrivalent, Adjuvanted Preet Enrique DPM Work Phone: [facility] 10-14-2023 influenza virus vacc ine, unspecified formulation Khoa Bowles MD Work Phone: [facility] 09-09-2022 SARS-CoV-2 (COVID-19 ) [id number] Jude BEACH [facility] 09-03-2022 influenza virus vacc ine, unspecified formulation Jude BEACH [facility] 09-03-2022 Influenza, High-dose Seasonal, Quadrivalent, Preservative Free Preet Enrique DPM Work Phone: [facility] 09-26-2021 SARS-CoV-2 (COVID-19 ) mRNA-1273 vaccine Jude BEACH [facility] 09-25-2021 Moderna SARS-CoV-2 Booster Vaccination Preet Enrique DPM Work Phone: [facility] 08-22-2021 influenza virus vacc ine, unspecified formulation Jude BEACH [facility] 08-22-2021 Influenza, Seasonal, Quadrivalent, Adjuvanted Preet Enrique DPM Work Phone: [facility] 08-20-2021 influenza virus vacc ine, unspecified formulation Jude BEACH [facility] 01-25-2021 COVID-19 mRNA-1273 (Moderna) Khoa Bowles Work Phone: [facility] 01-25-2021 SARS-CoV-2 (COVID-19 ) Ad26 vaccine, recombinant Jude BEACH [facility] 12-31-2020 pneumococcal conjuga te vaccine, 13 valent Khoa Bowles MD Work Phone: [facility] 12-28-2020 COVID-19 mRNA-1273 (Moderna) Khoa Bowles Work Phone: [facility] Comment on above: Result Comment: 2022: [id number] 08-06-2020 influenza virus vacc ine, unspecified formulation Judestuart BEACH [facility] 08-06-2020 Influenza, Seasonal, Quadrivalent, Adjuvanted Preet Enrique DPM Work Phone: [facility] 09-04-2019 influenza virus vacc ine, unspecified formulation Jude BEACH [facility] 09-04-2019 influenza, high dose seasonal, preservative-free Preet Enrique DPM Work Phone: [facility] 08-19-2018 influenza virus vacc ine, unspecified formulation Jude BEACH [facility] 08-19-2018 influenza, high dose seasonal, preservative-free Preet Enrique DPM Work Phone: [facility] 09-06-2017 influenza virus vacc ine, unspecified formulation Judestuart BEACH [facility] 09-06-2017 influenza, high dose seasonal, preservative-free Preet Enrique DPM Work Phone: [facility] 09-06-2017 pneumococcal polysaccharide vaccine, 23 valent Jude BEACH [facility] 08-18-2017 influenza virus vacc ine, unspecified formulation Jude BEACH [facility] 08-17-2016 influenza virus vacc ine, unspecified formulation Jude BEACH [facility] 08-17-2016 influenza, high dose seasonal, preservative-free Preet Enrique DPM Work Phone: [facility] 08-17-2016 pneumococcal conjuga te vaccine, 13 valent Judestuart BEACH [facility] 08-22-2015 zoster vaccine, live Judestuart BEACH [facility] 08-17-2015 influenza, seasonal, injectable, preservative free Preet Enrique DPM Work Phone: [facility] 07-27-2013 influenza virus vacc ine, unspecified formulation Jude [place] [facility] 02-22-2012 pneumococcal polysaccharide vaccine, 23 valent Preet Enrique DPM Work Phone: [facility] 07-20-2009 pneumococcal polysaccharide vaccine, 23 valent Jude [place] [facility] Payers Date Payer Category Payer Medicare [id number] 2016 Medicare [id number] 2016 Private Health Insurance [id number] 2015 Medicare [id number] 1959 Medicare [id number] 1959 Private Health Insurance [facility] [id number] 1959 Self-pay [id number] 1950 Unknown [id number] 2.16.84 0.1.030595.3.579.2.593 1950 Unknown [id number] 2.16.84 0.1.547020.3.579.2.593 1950 Unknown [id number] 2.16.84 0.1.255385.3.579.2.593 1950 Unknown [id number] 2.16.84 0.1.778079.3.579.2.593 1950 Unknown [id number] 2.16.84 0.1.274199.3.579.2.593 1950 Unknown [id number] 2.16.84 0.1.318041.3.579.2.593 1950 Unknown [id number] 2.16.84 0.1.938515.3.579.2.593 1950 Unknown [id number] 2.16.84 0.1.352575.3.579.2.593 1950 Unknown [id number] 2.16.84 0.1.695703.3.579.2.593 1950 Unknown [id number] 2.16.84 0.1.895782.3.579.2.593 1950 Unknown [id number] 2.16.8 40.1.291128.3.579.2.1286 1950 Unknown [id number] 2.16.8 40.1.995969.3.579.2.1286 1950 Unknown [id number] 2.16.8 40.1.339460.3.579.2.1286 1950 Unknown [id number] 2.16.8 40.1.348396.3.579.2.1286 1950 Unknown [id number] 2.16.8 40.1.114945.3.579.2.128 1950 Unknown [id number] 2.16.8 40.1.581991.3.579.2.1286 1950 Unknown [id number] 2.16.8 40.1.479796.3.579.2.727 1950 Unknown [id number] 2.16.8 40.1.612669.3.579.2.727 1950 Unknown [id number] 2.16.8 40.1.727517.3.579.2.727 1950 Unknown [id number] 2.16.84 0.1.859234.3.579.2.9 1950 Unknown [id number] 2.16.84 0.1.845081.3.579.2.1258 1950 Unknown [id number] 2.16.84 0.1.929413.3.579.2.1258 1950 Unknown [id number] 2.16.84 0.1.833290.3.579.2.1258 1950 Unknown [id number] 2.16.84 0.1.232562.3.579.2.1258 1950 Unknown [id number] 2.16.84 0.1.315888.3.579.2.1258 1950 Unknown [id number] 2.16.84 0.1.369983.3.579.2.1258 1950 Unknown [id number] 2.16.84 0.1.169195.3.579.2.1258 1950 Unknown [id number] 2.16.84 0.1.207948.3.579.2.125 1950 Unknown [id number] 2.16.84 0.1.409927.3.579.2.1259 1950 Unknown [id number] 2.16.84 0.1.364464.3.579.2.1259 1950 Unknown [id number] 2.16.84 0.1.841823.3.579.2.1259 Unknown [id number] Unknown [id number] 2.16.8 40.1.216486.3.579.2.531 Social History Date Type Detail Facility Start: 04-03-2021 End: 06-02-2023 Tobacco smoking status NHIS Never smoked tobacco (finding) [facility] Start: 1950 Sex Assigned At Male F [facility] Tobacco smoking status Never [facility] Start: 12-09-2023 End: 04-03-2024 Sex Assigned At Male [facility] Start: 12-09-2023 End: 09-14-2024 Alcohol intake Lifetime non-drinker (finding) [facility] Start: 12-09-2023 End: 04-03-2024 History of Social function [facility] Start: 04-14-2023 Alcohol Comment Caffeine intake: non e [facility] Start: 1950 Sex Assigned At Not on file [facility] Medical Equipment Procedure Code Equipment Code Equipment Origin al Text Equipment Identifier Dates Discectomy, lumbar COFLEX SIZE 10 [facility] art: 11-23-2018 Discectomy, lumbar COFLEX SIZE 14 [facility] art: 11-23-2018 Discectomy, lumbar COFLEX SIZE 14 [facility] art: 11-23-2018 Discectomy, lumbar COFLEX SIZE 10 [facility] art: 11-23-2018 1 each by In Vit ro route in the morning. Take before meals. [id number] Start: 08-02-2023 End: 07-27-2024 1 Units in the morning. Take before meals. Accucheck soft clix. [id number] Start: 11-10-2023 End: 11-04-2024 Injection subcutaneous [id number] Start: 11-11-2023 Use for Injectio n subcutaneous twice daily [id number] Start: 07-24-2024 Injection subcutaneous [id number] Start: 06-01-2024 End: 07-24-2024 Functional Status Date Assessment Result Facility 09-04-2024 Functional Status N/A [facility] [place] 07-21-2023 Functional Status N/A [facility] 01-05-2023 Functional Status N/A [facility] Clinical Notes 09-21-2022 to 09-14-2024 Preet Enrique DPM - 09/14/2024 3:00 PM SUSANNA [...] in the morning., Disp: , Rfl: biotin 44919 MCG tablet, 1 (one) time each day [...] 1 pen needle 32G x 6 mm [facility], Use for Injection subcutaneous twice daily, Disp: [...] White COLONOSCOPY 2010 COLONOSCOPY 06/17/2016 EYE EXAM 2014 HERNIA REPAIR 1988 IR ABLATION VEIN Bilateral 05/11/2024 05/25/2024 Right KIDNEY STONE SURGERY 02/21/2014 LITHOTRIPSY 12/30/2022 MELANOMA 02/14/2019 Right ear melanoma removed and graft OTHER SURGICAL HISTORY 01/2017 Dr Lu - left big toe umbilical cord skin OTHER SURGICAL HISTORY 11/23/2018 Lumbar decompression at L3-L4-L5 with Coflex device OTHER SURGICAL HISTORY 04/2021 lumbar decompression with removal of 1 of the Coflex devices., Uday, [facility] R[facility] CUFF REPAIR Left 1999 anterior stabilization [...] Mood normal. Behavior: Behavior normal. MODIFIER: Q9, 08063, 79661 Assessment/Plan ICD-10-CM 1. Type II or unspecified type diabetes mellitus with neurological manifestations, not 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) ([facility]) E11.49 2. Onychomycosis B35.1 3. Acquired keratoderma [...] Preet Enrique DPM documented in this encounter [facility] 09-04-2024 Hospital Discharge instructions Patient Education 09/04/2024 [...] include: ?8 oz (237 mL) of milk, zepaaxq-mjsrlwmnmayx-zkbyy milk, and calcium-fortifiedfruit juice. Calcium-fortified means that [...] ?Spinach (cooked), rhubarb, beets, sweet potatoes, and Liberian chard. ?Peanuts. ?Potato chips, croatian fries, and baked potatoes with skin on. ?Nuts and nut products. ?Chocolate. If you regularly take a diuretic medicine, make sure to eat at least 1 or 2 servings of fruits or vegetables that are high in potassium each day. These include: ?Avocado. ?Banana. ?[place], prune, carrot, or tomato juice. ?Baked potato. [...] magnesium, fish oil, or vitamin B6. Take xioz-qim-wlwzsvs and prescription medicines only as told by [...] Casseroles. Pizza. Lasagna. Frozen meals. Potato chips. Moroccan fries. The items listed above may not [...] provider. Document Revised: 01/28/2023 Document Reviewed: 01/28/2023 [employer] Patient Education 2023 [employer]. Follow Up Care 07/20/2024 10:51:39 With:NINA LEVY, MELANIE Sims Address: [facility] [address] , [place] [address]- When: Unknown [facility] [place] 09-04-2024 Note Patient Education Nephrology Dietary Guidelines [...] ? 8 oz (237 mL) of milk, wpgrxqm-nemeewbfmedr-fcbed milk, and calcium-fortifiedfruit juice. Calcium-fortified means that [...] Spinach (cooked), rhubarb, beets, sweet potatoes, and Liberian chard. ? Peanuts. ? Potato chips, croatian fries, and baked potatoes with skin on. ? Nuts and nut products. ? Chocolate. ??? If you regularly take a diuretic medicine, make sure to eat at least 1 or 2 servings of fruits or vegetables that are high in potassium each day. These include: ? Avocado. ? Banana. ? [place], prune, carrot, or tomato juice. ? Baked [...] fish oil, or vitamin B6. ??? Take hzoa-ahf-xxiwtfa and prescription medicines only as told by your health (more content not included)... [facility] 08-08-2024 History of Present illness Narrative Subjective [...] disc disease, lumbar Diabetes (CMS/HCC) Diabetes mellitus ([facility]) without mention of complication, type II or unspecified type, uncontrolled Disorder of lipoid metabolism (CMS/HCC) unspecified Diverticulosis of colon without hemorrhage Essential hypertension (CMS/HCC) unspecified Facet arthritis of lumbar region Fibromyalgia Hyperlipidemia (CMS/HCC) Hypertension (CMS/HCC) Iron deficiency anemia refractory to iron therapy Kidney calculi Kidney stones Malaise and fatigue Microalbuminuric diabetic nephropathy (CMS/HCC) Morbid obesity (CMS/[facility]) Neuropathy Polyneuropathy with improvement with gabapentin. he [...] CPAP 2009 Peripheral neuropathy Peripheral vascular disease ([facility]) Personal history of medical treatment 2010 infection in foot surgery Polyneuropathy Polyradiculopathy Radiculopathy, lumbosacral region Right bundle branch block Rotator cuff tear, left Skin ulcer of toe of left foot with fat layer exposed ([facility]) Type 2 diabetes mellitus with diabetic nephropathy, without long-term current use of insulin ([facility]) Type 2 diabetes mellitus with diabetic neuropathic arthropathy, without long-term current use of insulin ([facility]) Type II diabetes mellitus with neurological manifestations not at goal ([facility]) Ulcer of left foot with fat layer [...] of 1 of the Coflex devices., Uday, [facility] CUFF REPAIR Left 2000 anterior stabilization [...] Review Audit Reviewed by Taisha Gore MA (Biomedical Manager) on 08/08/24 at 1240 Medication Order Taking? Sig Documenting Provider Last Dose Status allopurinol (Zyloprim) 300 MG tablet [id number] No Take 1 tablet (300 mg) by mouth Daily Khoa Bowles MD Taking Active aspirin 81 MG EC tablet [id number] No Take 81 mg by mouth in the morning. Karli Boston MD Taking Active biotin 08595 MCG tablet [id number] No 1 (one) time each day at the same time. Karli [place] MD Taking Active dapagliflozin (Farxiga) 10 MG [id number] No Take 1 tablet (10 mg) by mouth Daily Khoa Bowles MD Taking Active doxycycline (Monodox) 100 MG capsule [id number] No Take 1 capsule (100 mg) by mouth in the morning. Khoa Bowles MD Taking Active fenofibrate (Triglide) 160 MG tablet [id number] No Take 1 tablet (160 mg) by mouth Daily Khoa Bowles MD Taking Active ferrous sulfate 325 (65 Fe) MG tablet [id number] No Take 325 mg by mouth in the morning. Take with meals. Karli Boston MD Taking Active Flomax 0.4 MG 24 hr capsule [id number] No Take 0.4 mg by mouth in the evening. Karli Boston MD Taking Active gabapentin (Neurontin) 300 MG capsule [id number] Take 1 capsule (300 mg) by mouth in the morning and 1 capsule (300 mg) before bedtime. SUSANNA Arndt Active hydroCHLOROthiazide (HYDRODiuril) 25 MG tablet [id number] No Take 1 tablet (25 mg) by mouth in the evening Khoa Bowles MD Taking Active insulin glargine (Basaglar KwikPen) 100 UNIT/ML pen [id number] No Inject bid, sliding blood glucose scale with the coverage: <70, zero and eat. 70-150, 10 units. 151-200, 14 units. 201-250, 16 units. 251-300, 18 units. >300, 20 units Khoa Bowles MD Taking Active losartan-hydroCHLOROthiazide (Hyzaar) 100-12.5 MG tablet [id number] No Take 1 tablet by mouth Daily Khoa Bowles MD Taking Active Lutein 20 MG tablet [id number] No 1 (one) time each day at the same time. Historical Provider, Taking Active metFORMIN (Glucophage) 1000 MG tablet [id number] No Take 1 tablet (1,000 mg) by mouth in the morning and 1 tablet (1,000 mg) in the evening. Take with meals. Khoa Bowles MD Taking Active metoprolol tartrate (Lopressor) 50 MG tablet [id number] No Take 1 tablet (50 mg) by mouth in the morning and 1 tablet (50 mg) before bedtime. Khoa Bowles MD Taking Active pen needle 32G x 6 mm misc [id number] No Use for Injection subcutaneous twice daily Khoa Bowles MD Taking Active sodium bicarbonate 650 MG tablet [id number] No Take 3 tablets by mouth in the morning and 3 tablets before bedtime. Historical Provider, Taking Active spironolactone (Aldactone) 25 MG tablet [id number] No 2 tablets in Am and 1 [...] triceps, wrist extensors, wrist extensors, wrist flexor, inspector structural bonding strength 5/5. LUE Strength deltoid, biceps, triceps, wrist extensors, wrist extensors, wrist flexor, inspector structural bonding strength 5/5. RLE Strength illopsoas, quadriceps, tibialis [...] or worsening symptoms documented in this encounter [facility] 07-24-2024 Telephone encounter Note RX corrected and sent [facility] 07-24-2024 Miscellaneous Notes RX corrected and sent [...] he tried to refill the needles at [facility], they told him that they show the 100 is a 90 day supply for him and will not refill it. He is asking if Dr. Bowles can send an order to [facility] stating how often he test to show how many needles a 90 day supply is. He states he is out of needles and can not check his sugar. documented in this encounter [facility] 07-24-2024 Telephone encounter Note He said he is talking about his pen needles. They are wrote for only one box of 100 for 90 days but he does his medication twice daily and so he needs 200. I am not sure how to fix this script. I pended what I believe would be right if you can look it over please [facility] 07-24-2024 Telephone encounter Note Sridevi, I suspect he is talking about testing with the lens sets and test strips. Can you confirm this is what he needs. If so okay to send a prescription for 200 with directions of tests twice a day and as needed. [facility] 07-24-2024 Telephone encounter Note Abelino called, his last fill of needles was for 100. He states that he is suppose to test twice a day. When he tried to refill the needles at [facility], they told him that they show the 100 is a 90 day supply for him and will not refill it. He is asking if Dr. Bowles can send an order to [facility] stating how often he test to show how many needles a 90 day supply is. He states he is out of needles and can not check his sugar. [facility] 12-09-2023 History of Present illness Narrative Images from the original note were not included. Subjective Patient ID: Manuel Balderas is a 73 y.o. male who presents for Nail care (Mnauel Balderas is a 73 y.o. male. Established [...] in the morning., Disp: , Rfl: biotin 71377 MCG tablet, 1 (one) time each day [...] SURGERY 11/23/2018 2 days BLEPHAROPLASTY Bilateral 01/2021 Dr Qiu, Christopher CATARACT EXTRACTION Bilateral 06/2021 Dr White COLONOSCOPY [...] with removal of 1 of the Coflex devices.Uday [facility] CUFF REPAIR Left 2000 anterior stabilization [...] Mood normal. Behavior: Behavior normal. MODIFIER: Q9, 39191, 62164 Assessment/Plan Diagnoses and all orders for this visit: Type II or unspecified type diabetes mellitus with neurological manifestations, not 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) ([facility]) Onychomycosis Hallux limitus, left Acquired [...] Preet Enrique DPM documented in this encounter [facility] 07-21-2023 Hospital Discharge instructions Patient Education 07/21/2023 [...] include: ?8 oz (237 mL) of milk, sugvrrn-pfspigokzhhi-vkuos milk, and calcium-fortifiedfruit juice. Calcium-fortified means that [...] ?Spinach (cooked), rhubarb, beets, sweet potatoes, and Liberian chard. ?Peanuts. ?Potato chips, croatian fries, and baked potatoes with skin on. ?Nuts and nut products. ?Chocolate. If you regularly take a diuretic medicine, make sure to eat at least 1 or 2 servings of fruits or vegetables that are high in potassium each day. These include: ?Avocado. ?Banana. ?[place], prune, carrot, or tomato juice. ?Baked potato. [...] magnesium, fish oil, or vitamin B6. Take cswv-kdg-hebmshg and prescription medicines only as told by [...] Casseroles. Pizza. Lasagna. Frozen meals. Potato chips. Moroccan fries. The items listed above may not [...] provider. Document Revised: 06/29/2022 Document Reviewed: 06/29/2022 Elsevier Patient Education 2022 [employer]. Follow Up Care 05/19/2023 09:51:24 With:NINA LEVY, Jude Crespo, URL Address: [facility] [address], [place] [address]- When: Unknown [facility] 01-05-2023 Hospital Discharge instructions Patient Education 01/05/2023 [...] potassium each day. These include: ?Avocado. ?Banana. ?[place], prune, carrot, or tomato juice. ?Baked potato. [...] Casseroles. Pizza. Lasagna. Frozen meals. Potato chips. Moroccan fries. Summary You can reduce your risk [...] 02/12/2012 Document Revised: 02/07/2020 Document Reviewed: 09/28/2017 One [employer] One [employer] Patient Education 2020 [employer]. Follow Up Care 10/07/2022 10:58:19 With:NINA LEVY, Jude Crespo, URL Address: [facility] [address] , [place] [address]- When: Unknown [facility] 09-21-2022 Hospital Discharge instructions Patient Education [...] urethra. Follow these instructions at home: Take cosi-mps-ooosaeb and prescription medicines only as told by [...] 10/18/2006 Document Revised: 09/12/2019 Document Reviewed: 11/22/2017 [employer] Patient Education 2020 [employer]. Follow Up Care 12/22/2021 13:03:04 With:Jude BEACH MD, URL Address: [facility] [address] , [place] [address]- When: Unknown [facility] Evaluation + Plan note No data available for this section [facility] Evaluation + Plan note Future Appointments Appointment Date:07/26/2024 01:45:00 PM Scheduled Provider:Jude BEACH MD Location:[facility] Appointment Type:URO Office Visit [facility] Evaluation + Plan note Future Appointments Appointment Date:09/04/2024 12:45:00 PM Scheduled Provider:Jude BEACH MD Location:[facility] Appointment Type:URO Office Visit [facility] Evaluation + Plan note Future Appointments Appointment Date:12/18/2024 10:45:00 AM Scheduled Provider:Jude BEACH MD Location:[facility] Appointment Type:URO Office Visit Diagnostic Tests PendingPSA Total 09/04/24 [facility] Evaluation note No assessment inform ation available [facility] Evaluation note Diagnosis Type II or unspecified [...] peripheral neuropathy [facility] Diagnosis Type II or unspecified type diabetes mellitus with neurological manifestations, not 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) (CMS/HCC)- Primary Type II or unspecified type diabetes mellitus with neurological manifestations, not stated as uncontrolled Onychomycosis Dermatophytosis of nail Acquired keratoderma [facility] Diagnosis Diabetic nephropathy associated with type 2 diabetes mellitus (HCC) (CMS/HCC) [facility]* Diagnosis Diabetic neuropathic arthropathy (CMS/HCC) Type II or unspecified type diabetes mellitus with neurological manifestations, not stated as uncontrolled [facility]* Diagnosis Type 2 diabetes mellitus with hyperglycemia, without long-term current use of insulin (CMS/HCC) documented in this encounter [facility] Discharge instructions No data available for this section [facility] Progress note No data available for this section [facility] Chief Complaint and Reason for Visit [...] Documents on File Type Date Recorded Patient Director Presales Expl anation Power of Rollway Worker 03/29/2024 1:37 PM 07-10 POA Advance Directives [...] Provider Active EDWIN ConstantinoC Attending Provider Active Right Of Way Man Relationship Specialty Start Date End Date Khoa Bowles MD [address] [place] [address] PCP - General Family Medicine 04/08/23 Jude Beach MD [address] [place] [address] Referring Physician Urology 12/09/23 Preet Enrique DPM [address] [place] [address] Referring Physician Podiatry 12/09/[address] Man Relationship Specialty Start Date End Date Khoa Bowles MD [address] [place] [phone] PCP - General Family Medicine 04/08/23 Khoa Bowles MD [address] [place] [address] PCP - ACO Reach 12/31/23 Jude Beach MD [address] [place] [address] Referring Physician Urology 12/09/23 Preet Enrique DPM [address] [place], [place] [phone] Referring Physician Podiatry 12/09/[address] Man Relationship Specialty Start Date End Date Khoa Bowles MD [address] [place] [phone] PCP - General Family Medicine 04/08/23 Khoa Bowles MD [address] [place] [address] PCP - ACO Reach 12/31/23 Jude Beach MD [address] [place] [address] Referring Physician Urology 12/09/23 Preet Enrique DPM [address] [place], [place] [phone] Referring Physician Podiatry 12/09/[address] Man Relationship Specialty Start Date End Date Khoa Bowles MD [address] [place] [address] PCP - General Family Medicine 04/08/23 Khoa Bowles MD [address] [place] [phone] (Fax) PCP - ACO Reach 12/31/23 Jude Beach MD [address] [place] [phone] Referring Physician Urology 12/09/23 Preet Enrique DPM [address] [place], [place] [phone] Referring Physician Podiatry 12/09/[address] Man Relationship Specialty Start Date End Date Khoa Bowles MD (Fax) PCP - General Family Medicine 04/08/23 Khoa Bowles MD [address] [place] [address] (Fax) PCP - ACO Reach 12/31/23 Jude Beach MD [address] [place] [phone] Referring Physician Urology 12/09/23 Preet Enrique DPM [address] [place], [place] [phone] Referring Physician Podiatry 12/09/[address] Man Relationship Specialty Start Date End Date Khoa Bowles MD [address] [place] [address] (Fax) PCP - ACO Reach 12/31/23 Jude Beach MD [address] [place] [address] Referring Physician Urology 12/09/23 Preet Enrique DPM [address] [place] [address] Referring Physician Podiatry 12/09/[address] Man Relationship Specialty Start Date End Date Khoa Bowles MD [address] [place] [address] (Fax) PCP - ACO Reach 12/31/23 Jude Beach MD [address] [place] [phone] Referring Physician Urology 12/09/23 Preet Enrique DPM [address] [place] [address] Referring Physician Podiatry 12/09/[address] Man Relationship Specialty Start Date End Date Khoa Bowles MD [address] [place] [address] PCP - ACO Reach 12/31/23 Jude Beach MD [address] [place] [address] Referring Physician Urology 12/09/23 Preet Enrique DPM [address] [place] [address] Referring Physician Podiatry 12/09/[address] Man Relationship Specialty Start Date End Date Khoa oBwles MD [address] [place] [address] PCP - General Family Medicine 04/08/23 Khoa Bowles MD [address] [place] [address] (Fax) PCP - ACO Reach 12/31/23 Jude Beach MD [address] [place] [address] Referring Physician Urology 12/09/23 Preet Enrique DPM [address] [place] [address] Referring Physician Podiatry 12/09/[address] Man Relationship Specialty Start Date End Date Khoa Bowles MD [address] [place] [address] (Fax) PCP - ACO Reach 12/31/23 Jude Beach MD [address] [place] [address] Referring Physician Urology 12/09/23 Preet Enrique DPM [address] [place] [address] Referring Physician Podiatry 12/09/[address] Man Relationship Specialty Start Date End Date Khoa Bowles MD [address] [place] [address] (Fax) PCP - ACO Reach 12/31/23 Jude Beach MD [address] [place] [address] Referring Physician Urology 12/09/23 Preet Enrique DPM [address] [place], [place] [phone] Referring Physician Podiatry 12/09/[address] Man Relationship Specialty Start Date End Date Khoa Bowles MD [address] [facility] [address] [place] [address] PCP - ACO Reach 12/31/23 Jude Beach MD [address] [place] [address] Referring Physician Urology 12/09/23 Preet Enrique DPM [address] [place] [address] Referring Physician Podiatry 12/09/23 (unrecognized sect ion and content) No Status Records FoundNo Status Records FoundNo Status Records FoundNo Status Records FoundNo Status Records FoundNo Status Records Found INFORMATION SOURCE (unrecogn ized section and content) DATE CREATED AUTHOR 02/14/2023 [facility] DATE CREATED AUTHOR AUTHOR'S ORGANIZ ATION 02/29/2024 [facility] DATE CREATED AUTHOR AUTHOR'S ORGANIZ ATION 05/21/2024 [facility] DATE CREATED AUTHOR AUTHOR'S ORGANIZ ATION 05/31/2024 [facility] DATE CREATED AUTHOR AUTHOR'S ORGANIZ ATION 09/05/2024 [facility] DATE CREATED AUTHOR AUTHOR'S ORGANIZ ATION 11/11/2024 [facility] EPIC Reason for Visit (unrecogniz ed section and content) Reason Comments Nail care Manuel Balderas is a 73 y.o. male. Established pt presents today for diabetic nail care. PCP: Dr. Bowles LV 11/04/2023, A1C: 7.6 (07/27/23),BS: 168 SS: 12). Reason Comments Polyradiculopathy Reason Comments DM Foot Care PCP: Dr. Bowles LV 05/02/24, A1C: 6.6, BS: 131, SS: 12 [...] BE BASED ON THE PRIMARY CLINICAL RECORDS. [facility]. provides no warranty or guarantee of the accuracy or completeness of information in this document.
== END 2024-11-17 09:42 | disposition home or self-care (01) ==
LOC: CT 09:42
PROVIDERS: PCP Family Medicine
DX: M96.0 Pseudarthrosis after fusion or arthrodesis (principal); M19.072 Primary osteoarthritis, left ankle and foot
CPT/HCPCS: 73700

== ENCOUNTER 2025-02-16 12:56 | Emergency (ER) | payer MEDICARE, SELFPAY ==
[2025-02-16 13:05] VITALS: BP 129/72; PULSE 52; TEMP 36.8; O2SAT 98; BMI 36.9
--- NOTE | 2025-02-16 13:18 | ED.GENADUL1 ---
HPI HPI - General Adult General Chief complaint: Extremity Injury, Upper Stated complaint: fall; right arm injury, right leg swollen Time Seen by Provider: 02/16/25 13:09 Source: patient Mode of arrival: Wheelchair History of Present Illness HPI narrative: 74-year-old male presents to the emergency department for a skin tear on his right arm. He fell in his kitchen yesterday and has had trouble getting it to stop bleeding. He is on aspirin, no other blood thinners. He also noted today that his right calf was much more swollen than it usually is. He had hit his right knee as well. He has been able to ambulate. He seems to have a remote history of a DVT. He did not hit his head and no other injury was sustained. It has been more than 10 years since his last tetanus shot. Related Data Home Medications ?Medication ?Instructions ?Recorded ?Confirmed allopurinol 300 mg tablet 300 mg PO DAILY 02/06/24 05/11/24 aspirin 81 mg chewable tablet 81 mg PO DAILY 02/06/24 04/28/24 biotin 10,000 mcg capsule 10,000 mcg PO BID 02/06/24 04/28/24 dapagliflozin propanediol 10 mg 10 mg PO DAILY 02/06/24 04/28/24 tablet (Farxiga) doxycycline monohydrate 100 mg 100 mg PO Q24H 02/06/24 04/28/24 capsule fenofibrate 160 mg tablet 160 mg PO DAILY 02/06/24 04/28/24 ferrous sulfate 325 mg (65 mg 325 mg PO DAILY 02/06/24 04/28/24 iron) tablet (Feosol) gabapentin 300 mg capsule 300 mg PO Q12H 02/06/24 04/28/24 hydrochlorothiazide 25 mg tablet 25 mg PO DAILY 02/06/24 04/28/24 insulin detemir U-100 100 unit/mL 10 unit subcut BID 02/06/24 04/28/24 (3 mL) subcutaneous pen (Levemir FlexPen) losartan 100 1 tab PO DAILY 02/06/24 05/11/24 mg-hydrochlorothiazide 12.5 mg tablet lutein 20 mg tablet 20 mg PO DAILY 02/06/24 04/28/24 metformin 1,000 mg tablet 1,000 mg PO BID 02/06/24 04/28/24 metoprolol tartrate 50 mg tablet 50 mg PO BID 02/06/24 05/11/24 sodium bicarbonate 650 mg tablet 1,950 mg PO BID 02/06/24 04/28/24 spironolactone 25 mg tablet 25 mg PO Q12H 02/06/24 04/28/24 tamsulosin 0.4 mg capsule 0.4 mg PO Q24H 02/06/24 04/28/24 Allergies Allergy/AdvReac Type Severity Reaction Status Date / Time amoxicillin Allergy Intermediate Hives Verified 04/28/24 12:35 meperidine (From Demerol) AdvReac Chills Verified 04/28/24 12:35 Opioid HPI Opioid Management Most Recent Opioid Data: Last Pain Scale 3 05/25/24 11:16 05/25/24 Last Pain Intensity 0 02/08/24 12:33 02/08/24 Last ORT Total Score 0 02/07/24 04:28 02/07/24 Last ORT Risk Category Low Risk 02/07/24 04:28 02/07/24 Review of Systems ROS Narrative A ten point review of systems is negative except as noted above. [facility] Medical History (Updated 02/16/25 @ 14:38 by Nic Brand MD) Back pain with history of spinal surgery ?M54.9 - Dorsalgia, unspecified (ICD-10) ?Z98.890 - Other specified postprocedural states (ICD-10) Back pain ?M54.9 - Dorsalgia, unspecified (ICD-10) Arthritis ?M19.90 - Unspecified osteoarthritis, unspecified site (ICD-10) Deep vein thrombosis ?I82.409 - Acute embolism and thrombosis of unspecified deep veins of unspecified lower extremity (ICD-10) Sleep apnea ?G47.30 - Sleep apnea, unspecified (ICD-10) High cholesterol ?E78.00 - Pure hypercholesterolemia, unspecified (ICD-10) Hypertension ?I10 - Essential (primary) hypertension (ICD-10) Extremity edema ?R60.0 - Localized edema (ICD-10) Varicose vein of leg ?I83.90 - Asymptomatic varicose veins of unspecified lower extremity (ICD-10) Benign essential hypertension ?I10 - Essential (primary) hypertension (ICD-10) Chronic venous stasis ?I87.8 - Other specified disorders of veins (ICD-10) Type 2 diabetes mellitus with diabetic polyneuropathy ?E11.42 - Type 2 diabetes mellitus with diabetic polyneuropathy (ICD-10) Type 2 diabetes mellitus with hyperglycemia ?E11.65 - Type 2 diabetes mellitus with hyperglycemia (ICD-10) Tooth abscess ?K04.7 - Periapical abscess without sinus (ICD-10) BPH (benign prostatic hyperplasia) ?N40.0 - Benign prostatic hyperplasia without lower urinary tract symptoms (ICD-10) Hyperlipidemia ?E78.5 - Hyperlipidemia, unspecified (ICD-10) Gout ?M10.9 - Gout, unspecified (ICD-10) BRETT (obstructive sleep apnea) ?G47.33 - Obstructive sleep apnea (adult) (pediatric) (ICD-10) Cellulitis ?L03.90 - Cellulitis, unspecified (ICD-10) PHT (portal hypertension) ?K76.6 - Portal hypertension (ICD-10) Neuropathy ?G62.9 - Polyneuropathy, unspecified (ICD-10) Diabetes ?E11.9 - Type 2 diabetes mellitus without complications (ICD-10) Blood clot in leg Cataracts, bilateral ?H26.9 - Unspecified cataract (ICD-10) Ureteral stent present ?Z96.0 - Presence of urogenital implants (ICD-10) Cellulitis of right foot ?L03.115 - Cellulitis of right lower limb (ICD-10) Kidney stones ?N20.0 - Calculus of kidney (ICD-10) Surgical History (Updated 04/28/24 @ 13:19 by Yumiko Friend NP) H/O cataract extraction ?Z98.49 - Cataract extraction status, unspecified eye (ICD-10) H/O cystoscopy ?Z98.890 - Other specified postprocedural states (ICD-10) H/O lithotripsy ?Z98.890 - Other specified postprocedural states (ICD-10) History of tooth extraction ?K08.409 - Partial loss of teeth, unspecified cause, unspecified class (ICD-10) S/p bilateral blepharoplasty ?Z98.890 - Other specified postprocedural states (ICD-10) Hx of decompressive lumbar laminectomy ?Z98.890 - Other specified postprocedural states (ICD-10) History of ankle fusion ?Z98.1 - Arthrodesis status (ICD-10) History of rotator cuff surgery ?Z98.890 - Other specified postprocedural states (ICD-10) History of hernia repair ?Z98.890 - Other specified postprocedural states (ICD-10) ?Z87.19 - Personal history of other diseases of the digestive system (ICD-10) Family History (Updated 02/07/24 @ 04:25 by Nikki Dunn, RN) Father Family history of cancer Family history of hypertension Mother Advanced cirrhosis of liver Family history of diabetes mellitus Social History (Updated 02/07/24 @ 04:27 by Nikki Dunn RN) Within the past year, how often did you have a drink containing alcohol: never Score interpretation: A score less than 4 is consistent with normal alcohol consumption. Smoking status: Never smoker Non-prescribed substance use: denies use Highest level of school completed/degree received: Associate degree: occupational, technical, vocational program Are you now , , , , never or living with a partner: In a typical week, how many times do you talk on the telephone with family, friends, or neighbors: 3 or more times per week How often do you get together with friends or relatives: 3 or more times per week Do you belong to any clubs or organizations such as anabaptist groups unions, fraternal or athletic groups, or school groups: yes Little interest or pleasure in doing things: not at all Feeling down, depressed, or hopeless: not at all Feel stressed/tense/nervous/anxious/difficulty sleeping: not at all Do you think of yourself as: straight/heterosexual Gender Identity: male Exam Narrative Exam Narrative: Nurses note and vital signs reviewed and patient is not hypoxic. General: The patient appears well and in no apparent distress. Patient is resting comfortably on cart. Skin: Warm, dry, no pallor noted. There is no rash noted. Head: Normocephalic, atraumatic Eye: Normal conjunctiva, no drainage Ears, Nose, Mouth, and Throat: oral mucosa is moist. Nares patent. Cardiovascular: Regular Rate and Rhythm Respiratory: Patient is in no distress, no accessory muscle use, lungs are clear to auscultation, no wheezing, rales or rhonchi Back: non-tender GI: Obese and nontender Musculoskeletal: There is a dressing on the right elbow area. Upon removal there is a small skin tear. No current active bleeding. His right knee has some mild tenderness in the right calf is swollen compared to the contralateral. The right elbow has full range of motion without discomfort Neurological: A&O, normal speech Psychiatric: Cooperative Constitutional Vital Signs, click to edit/add: Last Vital Signs Temp 98.2 F 02/16/25 13:05 Pulse 52 L 02/16/25 13:05 Resp 20 02/16/25 13:05 BP 129/72 02/16/25 13:05 Pulse Ox 98 02/16/25 13:05 O2 Del Method Room Air 02/16/25 13:05 Course Vital Signs Vital signs: Vital Signs Temperature 98.2 F 02/16/25 13:05 Pulse Rate 52 L 02/16/25 13:05 Respiratory Rate 20 02/16/25 13:05 Blood Pressure 129/72 02/16/25 13:05 Pulse Oximetry 98 02/16/25 13:05 Oxygen Delivery Method Room Air 02/16/25 13:05 Temperature 98.2 F 02/16/25 13:05 Pulse Rate 52 L 02/16/25 13:05 Respiratory Rate 20 02/16/25 13:05 Blood Pressure 129/72 02/16/25 13:05 Pulse Oximetry 98 02/16/25 13:05 Oxygen Delivery Method Room Air 02/16/25 13:05 Medical Decision Making MDM Narrative Medical decision making narrative: The wound was dressed with Gelfoam, resulting in hemostasis. Tetanus status updated. X-ray of his right knee is negative and Doppler is negative as well. Treatment diagnosis and follow-up were discussed with the patient and his . Differential Diagnosis Differential Diagnosis: Skin tear DVT, knee fracture Imaging Data Right knee x-ray, right leg Doppler: Radiologist's impression: Right knee: Degenerative changes Right leg Doppler: No DVT in the right lower extremity Discharge Plan Discharge Chief Complaint: Extremity Injury, Upper Clinical Impression: Skin tear Patient Disposition: Home, Self-Care Time of Disposition Decision: 14:37 Condition: Good Mode of Transportation: Private Vehicle Prescriptions / Home Meds: No Action allopurinol 300 mg tablet 300 mg PO DAILY Rx Instructions: HS dapagliflozin propanediol [Farxiga] 10 mg tablet 10 mg PO DAILY Rx Instructions: in AM fenofibrate 160 mg tablet 160 mg PO DAILY gabapentin 300 mg capsule 300 mg PO Q12H doxycycline monohydrate 100 mg capsule 100 mg PO Q24H hydrochlorothiazide 25 mg tablet 25 mg PO DAILY Levemir FlexPen 100 unit/mL (3 mL) insulin pen 10 unit SUBCUT BID Rx Instructions: Sliding Scale losartan-hydrochlorothiazide 100-12.5 mg tablet 1 tab PO DAILY metformin 1,000 mg tablet 1,000 mg PO BID metoprolol tartrate 50 mg tablet 50 mg PO BID sodium bicarbonate 650 mg tablet 1,950 mg PO BID spironolactone 25 mg tablet 25 mg PO Q12H Rx Instructions: 2 in am and 1 at HS tamsulosin 0.4 mg capsule 0.4 mg PO Q24H Rx Instructions: at HS biotin 10,000 mcg capsule 10,000 mcg PO BID ferrous sulfate [Feosol] 325 mg (65 mg iron) tablet 325 mg PO DAILY lutein 20 mg tablet 20 mg PO DAILY Rx Instructions: give with meal/snack aspirin 81 mg tablet,chewable 81 mg PO DAILY Print Language: Khmer Instructions: Skin Tear (ED) Additional Instructions: Leave dressing on for 48 hours. Remove and apply bandage daily. Referrals: NELI BOWLES [Primary Care Provider] - 1 week
[2025-02-16] MEDS: SURGIFOAM GEL SPONGE SIZE 100 1 EACH TOPICAL (13:24)
--- NOTE | 2025-02-16 13:34 | PC.NURSE ---
Pain and swelling to left lower leg. No open areas.
[2025-02-16] MEDS: ADACEL DIPH,PERTUSS(ACELL),TET VAC/PF 0.5 ML ADULT SYRINGE IM (14:12)
--- NOTE | 2025-02-16 14:17 | PC.NURSE ---
Skin tear to left elbow cleansed and covered with fel foam.
== END 2025-02-16 15:01 | disposition home or self-care (01) ==
PROVIDERS: Emergency Provider Emergency Medicine; PCP Family Medicine
DX: S41.111A Laceration without foreign body of right upper arm, initial encounter (principal); M25.561 Pain in right knee; R22.41 Localized swelling, mass and lump, right lower limb; W19.XXXA Unspecified fall, initial encounter; Z86.718 Personal history of other venous thrombosis and embolism; Z98.1 Arthrodesis status; Z23 Encounter for immunization
CPT/HCPCS: 73562; 90471; 90715; 93971; 99284

== ENCOUNTER 2025-03-15 09:45 | Outpatient (OUT) | payer MEDICARE, SELFPAY ==
--- OUTSIDE RECORDS SUMMARY | 2025-03-15 10:06 | XMS_ITS | CCD ---
Author Organization [facility] Care Team Providers Care Athletic Gear Custodian Name Role Phone Khoa Bowles Primary Care [...] Unavailable BEACH ., DR WALLACE Admitting Unavailable CANTON, DR TALI Jeffries Consulting Unavailable BEACH ., DR WALLACE Consulting Unavailable HEMEYER ., DR QUINTEROS Primary Care Unavailable BEACH ., DR WALLACE Attending Unavailable BEACH ., DR WALLACE Admitting Unavailable MD Khoa Bowles Primary Care Provider MARIZOL Hampton Attending Provider Khoa Bowles MD Primary Care Provider [phone] Madison Beach MD Unavailable [phone] HARMON, Tiffanie Tariq Unavailable Yaquelin Hampton Attending Unavailable Yaquelin Hampton Admitting Unavailable Hemeyer, Edsilvana Yanes Primary [...] Primary Care Provider Khoa Bowles MD Unavailable Khoa Bowles MD Unavailable Madison BEACH Attending Unavailable Madison BEACH Attending Unavailable Madison BEACH Attending Unavailable Madison BEACH Attending Unavailable Khoa Bowles MD Primary Care Provider Tree LANDA, Larissa Unavailable TIFFANIE ENRIQUE Attending Unavailable HEMEYER, EDSILVANA Yanes Attending Unavailable TIFFANIE ENRIQUE Attending Unavailable HEMEYER, KHOA Yanes Attending Unavailable HILL, YAQUELIN Attending Unavailable KHOA BOWLES Attending Unavailable TIFFANIE ENRIQUE Attending Unavailable YUMIKO GUZMÁN Attending Unavailable YAQUELIN HAMPTON Attending Unavailable TIFFANIE ENRIQUE Attending Unavailable KHOA BOWLES Attending Unavailable Allergies Allergy Classification Reported Allergen(s) Allergy Type Date of Onset Reaction(s) Facility Opioid Agonists (1 source) Meperidine Drug Allergy 1 [facility] (7 sources) Meperidine / Promethazine; Translations: [meperidine-prome thazine] Drug Allergy Unknown (qualifier value) [facility] (20 sources) Meperidine; Translations: [meperidine] Drug Allergy 4 Tremor (finding) [facility] (2 sources) Meperidine Drug Allergy 3 [facility] (2 sources) pioglitazone Drug Allergy 3 [facility] (20 sources) Meperidine Drug Allergy 2 [facility] (20 sources) pioglitazone Drug Allergy 3 Swelling [facility] (1 source) Meperidine Drug Allergy 1 [facility] (1 source) Doxycycline; Translations: [doxycycline] Drug Allergy [facility] Repository Medications Current Medications Medication Drug Class(es) Dates Sig (Normalized) Sig (Original) allopurinol 300 mg oral tablet (20 sources) Xanthine Oxidase Inhibitor Start: 11-09-2018 End: 10-29-2024 take 1 tablet by mouth once daily allopurinol (Zyloprim) 300 MG tablet Take 300 mg by mouth Daily 10/05/2024 Active aspirin 81 mg oral tablet (20 [...] Every morning November 23, 2018 9:16am Biotin (20 sources) Start: 09-04-2024 biotin 10,000 mcg, Refills(s) 0 Start Date: 09/04/24 Status: Ordered Start: 11-09-2018 take 28985 ug by mouth twice d aily Biotin Active 81904 MCG PO Twice daily November 09, 2018 3:30pm take 1 tablet by noemi th in the morning biotin 22660 MCG tablet Take 1 tablet by mouth in the morning and 1 tablet before bedtime. Active Blood Glucose Monitoring Suppl (Blood Glucose Monitoring 333) device (3 sources) Blood Glucose Monitoring Suppl (Blood Glucose Monitoring 333) device 1 Device continuously Accucheck Active cyclobenzaprine hydrochloride 10 mg oral tablet (3 sources) Muscle Relaxant Start: take 10 mg by mouth three times daily Cyclobenzaprine Active 10 MG PO Three times daily April 17, 2021 12:00am Start: 11-24-2018 End: 04-03-2021 take 10 mg by mouth three times daily Cyclobenzaprine Discontinued 10 MG PO Three times daily 50 November 24, 2018 1:56pm April 03, 2021 11:56am dapagliflozin 10 mg oral tablet (20 sources) Sodium-Glucose Cotransporter 2 Inhibitor Start: 05-02-2024 End: 04-29-2025 take 1 tablet by mouth once daily dapagliflozin (Farxiga) 10 MG Indications: Diabetic nephropathy associated with type 2 diabetes mellitus (HCC) (CMS/HCC) Take 1 tablet (10 mg) by mouth Daily 90 tablet 1 10/31/2024 04/29/2025 Active Start: 11-04-2023 End: 02-02-2024 take 1 tablet by mouth in the morning dapagliflozin (Farxiga) 10 MG Indications: Diabetic nephropathy associated with type 2 diabetes mellitus (HCC) (CMS/HCC) Take 1 tablet (10 mg) by mouth in the morning. 90 tablet 0 11/04/2023 02/02/2024 Active doxycycline monohydrate 100 mg oral capsule (20 sources) Tetracycline-class Drug Start: 11-04-2023 End: 10-26-2025 take 1 capsule by mouth once daily doxycycline (Monodox) 100 MG capsule Indications: Chronic cellulitis Take 1 capsule (100 mg) by mouth Daily 90 capsule 3 10/31/2024 10/26/2025 Active Start: 09-18-2019 take 1 mg by mouth twice daily doxycycline hyclate 100 mg Cap mg cap(s), Oral, BID, Refills(s) 0 Start Date: 09/18/19 Status: Ordered Start: 11-09-2018 take 100 mg by mouth once daily in the morning Doxycycline Hyclate Active 100 MG PO Every morning November 09, 2018 3:30pm DULoxetine 20 mg delayed release oral capsule (3 sources) Serotonin and Norepinephrine Reuptake Inhibitor Start: 01-12-2025 take 1 capsule by mouth in the morning DULoxetine (Cymbalta) [address] capsule Take 20 mg by mouth in the morning and 20 mg before bedtime. 01/12/2025 Active fenofibrate 160 mg oral tablet (20 sources) Peroxisome Proliferator Receptor alpha Agonist Start: 05-02-2024 End: 04-29-2025 take 1 tablet by mouth once daily fenofibrate (Triglide) 160 MG tablet Indications: Mixed hyperlipidemia (CMS/HCC) Take 1 tablet (160 mg) by mouth Daily 90 tablet 1 10/31/2024 04/29/2025 Active Start: 11-04-2023 End: 02-02-2024 take 1 tablet by mouth in the morning fenofibrate (Triglide) 160 MG tablet Indications: Mixed hyperlipidemia (CMS/HCC) Take 1 tablet (160 mg) by mouth in the morning. 90 tablet 0 11/04/2023 02/02/2024 Active ferrous sulfate 325 mg oral tablet (20 sources) Start: 11-09-2018 take 1 tablet by mouth once daily Ferrous Sulfate (Iron (Ferrous Sulfate)) 325 mg (65 mg iron) Tablet Active 325 MG PO Daily November 09, 2018 3:30pm gabapentin 300 mg oral capsule (20 sources) Anti-epilept ic Agent Start: 07-21-2023 End: 02-04-2025 take 1 capsule by mouth in the morning gabapentin (Neurontin) 300 MG capsule Indications: Polyradiculopathy Take 1 capsule (300 mg) by mouth in the morning and 1 capsule (300 mg) before bedtime. 180 capsule 11/06/2024 02/04/2025 Active Start: 11-09-2018 End: 04-03-2021 take 400 [...] 2018 3:30pm hydroCHLOROthiazide 25 mg oral tablet (20 sources) Thiazide Diuretic Start: 01-29-2025 End: 07-28-2025 take 1 tablet by mouth in the evening hydroCHLOROthiazide (HYDRODiuril) 25 MG tablet Indications: Essential hypertension (CMS/HCC) Take 1 tablet (25 mg) by mouth in the evening 90 tablet 1 01/29/2025 07/28/2025 Active Start: 01-11-2023 End: 10-29-2024 take 1 tablet [...] day(s), # 90 tab(s), Refills(s) 0, Pharmacy: [facility]/pharmacy #[id number], 185, cm, 12/22/21 12:11:00 EST, Height/Length Dosing, 136.7, kg, 12/22/21 12:11:00 EST, Weight Dosing Start Date: 10/09/22 Stop Date: 01/07/23 Status: Ordered hydroCHLOROthiazide 12.5 mg / losartan potassium 100 mg oral tablet (20 sources) Thiazide Diuretic, Angiotensin 2 Receptor Dean Start: 09-04-2024 hydrochlorothiazide-losartan 12.5 mg-100 mg oral tablet 1 tab(s), Refill(s) 0 Start Date: 09/04/24 Status: Ordered Start: 05-02-2024 End: 04-29-2025 take 1 tablet by mouth once daily losartan-hydroCHLOROthiazide (Hyzaar) 100-12.5 MG tablet Indications: Essential hypertension (CMS/HCC) Take 1 tablet by mouth Daily 90 tablet 1 10/31/2024 04/29/2025 Active Start: 11-04-2023 End: 02-02-2024 take 1 [...] ml insulin glargine 100 unt/ml pen injector (20 sources) Insulin Analog Start: 02-05-2025 insulin glargi ne (Basaglar KwikPen) 100 UNIT/ML pen Indications: Type 2 diabetes mellitus with hyperglycemia, without long-term current use of insulin (CMS/HCC) INJECT BID, SLIDING BLOOD GLUCOSE SCALE WITH THE COVERAGE: 300, 20 UNITS 15 each 3 02/05/2025 Active Start: 09-04-2024 Basaglar KwikYovani en 100 units/mL subcutaneous solution See Instructions, Refills(s) 0 Start Date: 09/04/24 Status: Ordered Start: 06-14-2024 End: 11-16-2024 insulin glargine (Basaglar Olga Flanagan) 100 UNIT/ML pen Indications: Type 2 diabetes mellitus with hyperglycemia, without long-term current use of insulin (CMS/HCC) Inject bid, sliding blood glucose scale with the coverage: 300, 20 units 3 mL 3 11/16/2024 Active Start: 11-23-2023 insulin glargi ne (Basaglar KwikPen) 100 UNIT/ML pen Indications: Type 2 diabetes mellitus with hyperglycemia, without long-term current use of insulin (CMS/HCC) Inject before supper, sliding blood glucose scale; 250=8u Strength: 100 UNIT/ML 3 mL 0 11/23/2023 Active Lutein (20 sources) Start: 09-04-2024 lutein 20 mg, Refill(s) 0 Start Date: 09/04/24 Status: Ordered Start: 11-09-2018 take 20 mg by mouth once daily Lutein Active 20 MG PO Daily November 09, 2018 3:30pm Lutein 20 MG tab let 1 (one) time each day at the same time. Active metFORMIN hydrochloride 1000 mg oral tablet (20 sources) Biguanide Start: 05-02-2024 End: 04-29-2025 take 1 tablet by mouth in the morning metFORMIN (Glucophage) 1000 MG tablet Indications: Type 2 diabetes mellitus with hyperglycemia, without long-term current use of insulin (CMS/HCC) Take 1 tablet (1,000 mg) by mouth in the morning and 1 tablet (1,000 mg) in the evening. Take with meals. 180 tablet 1 10/31/2024 04/29/2025 Active Start: 11-04-2023 End: 02-02-2024 take 1 [...] oral tablet (20 sources) beta-Adrenergic Dean Start: 11-09-2018 End: 04-29-2025 take 1 tablet by mouth in the morning metoprolol tartrate (Lopressor) 50 MG tablet Indications: Essential hypertension (CMS/HCC) Take 1 tablet (50 mg) by mouth in the morning and 1 tablet (50 mg) before bedtime. 180 tablet 1 10/31/2024 04/29/2025 Active 24 hr mirabegron 50 mg extended release oral tablet (1 source) beta3-Adrenergic Agonist Start: 09-04-2024 End: 08-30-2025 take 1 tablet by mouth once daily mirabegron 50 mg oral tablet, extended release 50 mg = 1 tab(s), Oral, Daily, X 30 day(s), # 30 tab(s), Refills(s) 11, Pharmacy: [facility]/pharmacy #[id number], 185, cm, 09/04/24 13:31:00 [...] 650 mg oral tablet (20 sources) Start: 11-15-2024 take 3 tablets by mouth twice daily sodium bicarbonate 650 mg Tab 1,950 mg = 3 tab(s), Oral, BID, # 180 tab(s), Refills(s) 11, Pharmacy: [facility]/pharmacy #[id number], 185, cm, 09/04/24 13:31:00 EST, Height/Length Dosing, 128, kg, 09/04/24 13:31:00 EST, Weight Dosing Start Date: 11/15/24 Status: Ordered Start: 11-11-2023 take 3 tablets by mo uth twice daily sodium bicarbonate 650 mg Tab 1,950 mg = 3 tab(s), Oral, BID, # 180 tab(s), Refills(s) 11, Pharmacy: [facility]/pharmacy #[id number], 185, cm, 07/21/23 13:37:00 EDT, Height/Length Dosing, 138.2, kg, 07/21/23 13:37:00 EDT, Weight Dosing Start Date: 11/11/23 Status: Ordered Start: 11-08-2022 take 3 tablets by mo uth twice daily sodium bicarbonate 650 mg Tab 1,950 mg = 3 tab(s), Oral, BID, # 180 tab(s), Refills(s) 11, Pharmacy: [facility]/pharmacy #[id number], 185, cm, 12/22/21 12:11:00 EST, Height/Length Dosing, 136.7, kg, 12/22/21 12:11:00 EST, Weight Dosing Start Date: 11/08/22 Status: Ordered Start: 11-05-2021 End: 10-31-2022 take 3 tablets by mouth twice daily sodium bicarbonate 650 mg Tab 1,950 mg = 3 tab(s), Oral, BID, X 90 day(s), # 540 tab(s), Refills(s) 3, Pharmacy: [facility]/pharmacy #[id number], 185, cm, 09/15/21 11:40:00 EST, Height/Length Dosing, 137, kg, 09/15/21 11:40:00 EST, Weight Dosing Start Date: 11/05/21 Stop Date: 10/31/22 Status: Ordered Start: 11-09-2018 take 1950 mg by mout h twice daily Sodium Bicarbonate Active 1950 MG PO Twice daily November 09, 2018 3:30pm solifenacin succinate 10 mg oral tablet (6 sources) Cholinergic Muscarinic Antagonist Start: 12-18-2024 take 1 tablet by mouth once daily VESIcare 10 MG tablet Indications: Overactive Bladder Take 10 mg by mouth Daily 12/18/2024 Active spironolactone 25 mg oral tablet (20 sources) Aldosterone Antagonist Start: 09-04-2024 spironolactone 25 mg Tab See Instructions, Refills(s) 0 Start Date: 09/04/24 Status: Ordered Start: 05-02-2024 End: 10-31-2024 spironolactone (Aldactone) 2 5 MG tablet Indications: Lymphedema of both lower [...] Daily, # 90 cap(s), Refills(s) 3, Pharmacy: [facility]/pharmacy #[id number], 185, cm, 07/21/23 13:37:00 EDT, Height/Length Dosing, 138.2, kg, 07/21/23 13:37:00 EDT, Weight Dosing Start Date: 01/12/24 Status: Ordered Start: 11-09-2018 take 1 capsule by [facility] once daily tamsulosin 0.4 mg Cap 0.4 mg = 1 cap(s), Oral, Daily, # 90 cap(s), Refills(s) 3, Pharmacy: [facility]/pharmacy #[id number], 185, cm, 12/22/21 12:11:00 EST, Height/Length Dosing, 136.7, kg, 12/22/21 12:11:00 EST, Weight Dosing Start Date: 12/30/22 Status: Ordered take 1 capsule by [facility] every twenty-four hours in the evening Flomax [...] 4 04-12-2023 Chronic Coagulation and hemorrhagic disorders (20 sources) Thrombocytopenic disorder; Translations: [Thrombocytopenia, unspecified] Onset: 3 04-12-2023 Chronic Conduction disorders (20 sources) Right bundle branch block; Translations: [Unspecified right bundle-branch block] Onset: 3 04-12-2023 Chronic Diabetes mellitus with complications (20 sources) Type 2 diabetes mellitus with diabetic polyneuropathy; Translations: [Type 2 diabetes mellitus with other diabetic neurological complication] Onset: 6 Resolved: 4 Chronic Disorders of lipid metabolism (20 sources) Hyperlipidemia; Translations: [Hyperlipidemia, unspecified] Onset: 2 09-18-2019 Chronic Diverticulosis and diverticulitis (20 sources) Diverticulosis of colon; Translations: [Diverticulosis of large intestine without perforation or abscess without bleeding] Onset: 5 04-12-2023 Chronic E Codes: Fall (2 sources) Fall; Translations: [Unspecified fall, subsequent encounter] 02-20-2025 Episodic Essential hypertension (20 sources) Hypertensive disorder; Translations: [Essential (primary) hypertension] Onset: 2 09-18-2019 Chronic Hyperplasia of prostate (20 sources) Benign prostatic hypertrophy with outflow obstruction; Translations: [Benign prostatic hyperplasia with lower urinary tract symptoms] Onset: 6 Chronic Hypertension with complications and secondary hypertension (20 sources) Hypertensive left ventricular hypertrophy; Translations: [Hypertensive heart disease without heart failure] Onset: 3 04-12-2023 Chronic Malaise and fatigue (20 sources) Asthenia; Translations: [Weakness] 04-11-2024 Episodic Mycoses (3 sources) Onychomycosis; Translations: [Tinea unguium] 12-09-2023 Episodic Open wounds of extremities (2 sources) Tear of skin; Translations: [Laceration without foreign body of unspecified upper arm, initial encounter] 02-20-2025 Episodic Other aftercare (1 source) meat boner and slicer (current) use of anticoagulants; Translations: [SHELTER CURRNT USE ANTICOAGULANTS] Onset: 3 Episodic Other aftercare (1 source) prison (current) use of oral hypoglycemic drugs; Translations: [SHELTER USE ORAL HYPOGLYCEMIC DX] Onset: 3 Episodic Other aftercare (1 source) Other alf (current) drug therapy; Translations: [OTH SHELTER CURRENT DRUG THERAPY] Onset: 3 Episodic Other aftercare (1 source) Long-term current use of drug therapy; Translations: [Other cottage master (current) drug therapy] 12-30-2024 Episodic Other aftercare (2 sources) Patient encounter status; Translations: [Encounter for follow-up examination after completed treatment for conditions other than malignant neoplasm] 02-20-2025 Episodic Other circulatory disease (2 sources) Bleeding; Translations: [Hemorrhage, not elsewhere classified] 02-20-2025 Episodic Other connective tissue disease (20 sources) Fibromyalgia; Translations: [Fibromyalgia] 04-11-2024 Episodic Other diseases of bladder and urethra (2 sources) Detrusor overactivity; Translations: [Overactive bladder] Onset: 4 Chronic Other diseases of bladder and urethra (2 sources) Overactive bladder 09-04-2024 Chronic Other diseases of veins and lymphatics (20 sources) Lymphedema of bilateral lower limbs; Translations: [Lymphedema, not elsewhere classified] Onset: 3 04-12-2023 Chronic Other nervous system disorders (20 sources) Difficulty walking; Translations: [Difficulty in walking, not elsewhere classified] Onset: 3 04-12-2023 Chronic Other nervous system disorders (20 sources) Polyneuropathy; Translations: [Polyneuropathy, unspecified] 04-11-2024 Chronic Other nutritional; endocrine; and metabolic disorders (3 sources) Morbid obesity; Translations: [Morbid (severe) obesity due to excess calories] Onset: 3 04-12-2023 Chronic Other nutritional; endocrine; and metabolic disorders (20 sources) Body mass index 30+ - obesity; Translations: [Obesity, unspecified] Onset: 4 07-26-2024 Chronic Other skin disorders (3 sources) Acquired keratoderma; Translations: [Acquired keratosis [keratoderma] palmaris et plantaris] 12-09-2023 Episodic Peripheral and visceral atherosclerosis (20 sources) Peripheral vascular disease; Translations: [Peripheral vascular disease, unspecified] 04-11-2024 Chronic Residual codes; unclassified (20 sources) Dependence on continuous positive airway pressure ventilation; Translations: [Dependence on other enabling machines and devices] Onset: 3 04-12-2023 Chronic Residual codes; unclassified (20 sources) Obstructive sleep apnea syndrome; Translations: [Obstructive sleep apnea (adult) (pediatric)] Onset: 3 04-12-2023 Chronic Residual codes; unclassified (20 sources) Hypersomnia; Translations: [Hypersomnia, unspecified] Onset: 4 07-26-2024 Chronic Residual codes; unclassified (4 sources) Family history of cancer; Translations: [Family [...] Date Documented Da te Episodic/Chronic Abdominal pain (20 sources) Flank pain; Translations: [Unspecified abdominal pain] Onset: 02-01-2014 07-28-2023 Episodic Calculus of urinary tract (20 sources) Kidney stone; Translations: [Calculus of kidney] Onset: 09-21-2022 Episodic Deficiency and other anemia (20 sources) Iron deficiency anemia secondary to inadequate dietary iron intake; Translations: [Other iron deficiency anemias] Onset: 04-12-2023 04-12-2023 Episodic Diabetes mellitus without complication (20 sources) Diabetes mellitus; Translations: [Type 2 diabetes mellitus without complications] Onset: 01-20-2023 Resolved: 11-04-2023 09-18-2019 Chronic Genitourinary symptoms and ill-defined conditions (20 sources) Nocturia; Translations: [Nocturia] Onset: 09-21-2022 Resolved: 11-04-2023 Episodic Heart valve disorders (20 sources) Heart murmur; Translations: [Cardiac murmur, unspecified] Onset: 04-12-2023 04-12-2023 Episodic Mood disorders (20 sources) Mood disorders Onset: 04-03-2024 04-03-2024 Other acquired deformities (20 sources) Lumbar spondylolisthesis; Translations: [Spondylolisthesis, lumbar region] Onset: 04-12-2023 04-12-2023 Episodic Other aftercare (20 sources) Polypharmacy ; Translations: [Other cottage master (current) drug therapy] Onset: 08-05-2021 07-28-2023 Episodic Other connective tissue disease (20 sources) H/O: arthrodesis; Translations: [Arthrodesis status] Onset: 10-02-2020 11-04-2023 Episodic Other connective tissue disease (20 sources) Myalgia caused by statin; Translations: [Myalgia, unspecified site] Onset: 06-07-2024 06-07-2024 Episodic Other diseases of veins and lymphatics (20 sources) Lymphedema; Translations: [Lymphedema, not elsewhere classified] Onset: 07-19-2016 Resolved: 11-04-2023 11-04-2023 Chronic Other diseases of veins and lymphatics (1 source) Stasis dermatitis; Translations: [Venous insufficiency (chronic) (peripheral)] Onset: 04-12-2023 04-12-2023 Episodic Other diseases of veins and lymphatics (20 sources) Peripheral venous insufficiency; Translations: [Venous insufficiency (chronic) (peripheral)] Onset: 08-05-2021 07-28-2023 Episodic Other diseases of veins and lymphatics (20 sources) Disorder of vein of lower extremity; Translations: [Venous insufficiency (chronic) (peripheral)] Onset: 04-12-2023 04-12-2023 Episodic Other lower respiratory disease (20 sources) Snoring; Translations: [Snoring] Onset: 07-26-2024 07-26-2024 Episodic Other nutritional; endocrine; and metabolic disorders (20 sources) Body mass index 40+ - severely obese; Translations: [Body mass index (BMI) 40.0-44.9, adult] Onset: 02-01-2014 Resolved: 11-04-2023 11-04-2023 Chronic Other nutritional; endocrine; and metabolic disorders (20 sources) Obese class II; Translations: [Obesity, unspecified] Onset: 10-02-2020 Resolved: 11-04-2023 11-04-2023 Chronic Other nutritional; endocrine; and metabolic disorders (20 sources) Obesity; Translations: [Obesity, unspecified] Onset: 04-12-2023 Resolved: 04-24-2024 04-24-2024 Chronic Other nutritional; endocrine; and metabolic disorders (1 source) Hyperuricemia without signs of inflammatory arthritis and tophaceous disease; Translations: [HU W/O SIGNS IA AND TOPHACEOUS DZ] Onset: 05-08-2022 Episodic Other nutritional; endocrine; and metabolic disorders (20 sources) Hyperuricemia; Translations: [Hyperuricemia without signs of [...] 12-22-2021 Episodic Skin and subcutaneous tissue infections (20 sources) Cellulitis; Translations: [Cellulitis, unspecified] Onset: 04-12-2023 04-12-2023 Episodic Results Test Name Value Interpretation Reference Range Facility Ambulatory Visit Summaryon 0 12-18-2024 Ambulatory Visit Summary Ambulatory Visit Summary MANUEL BALDERAS :1950 Visit Date:12/18/2024 Ambulatory Visit Instructions Your Diagnosis OAB (overactive bladder) Elevated PSA Kidney stones BPH with urinary obstruction Family history of prostate cancer in father Your Care Team Attending Physician - NINA LEVY, Madison Crespo Primary Care Physician - JELENA LEVY, KHOA Yanes This Is Your Medications List allopurinol (allopurinol 300 mg Tab) hydrochlorothiazide-los theodora (hydrochlorothiazide-lo sartan 12.5 mg-100 mg oral tablet) sodium bicarbonate (sodium bicarbonate 650 mg Tab) solifenacin (Vesicare 10 mg Tab) tamsulosin (tamsulosin 0.4 mg Cap) Contact prescribing physician if questions or concerns aspirin (aspirin 81 mg oral tablet) biotin dapagliflozin (Farxiga 10 mg oral tablet) doxycycline (doxycycline hyclate 100 mg Cap) fenofibrate (fenofibrate 160 mg oral tablet) gabapentin (gabapentin 300 mg Cap) hydrochlorothiazide (hydrochlorothiazide 25 mg Tab) insulin glargine (Basaglar KwikPen 100 units/mL subcutaneous solution) lutein metformin (metformin 1000 mg Tab) metoprolol (Metoprolol tartrate 50 mg Tab) spironolactone (spironolactone 25 mg Tab) [Image Removed: STOP]Stop taking these medications mirabegron (mirabegron 50 mg oral tablet, extended release) vibegron (Gemtesa 75 mg oral tablet) Procedures Performed ESWL - Extracorporeal shockwave lithotripsy [...] of varicose veins, Rotator cuff. Discharge Vitals Temperature (Temporal Artery) 37 ???C Heart Rate (Peripheral) 62 Respiratory Rate 16 Blood Pressure 124/71 Height 185 cm Height 73 in Weight 129.7 kg Weight 285.939 lb BMI 37.9 What to do next Scheduled Follow-Up Appointments Wednesday. 2024 11:45 AM EDT With: Madison BEACH MD Where: [facility] [address] [place] [address]- You Need to Schedule the Following Appointments Follow Up with Madison BEACH MD, URL When: Comments: 3 mos w/ PVR and PSA Where: [facility] [address], [place] [address]- [phone] Medications What How Much When Why Instructions New solifenacin (Vesicare 10 mg Tab) 1 Tablets By Mouth Every day OAB (overactive bladder) Refills: 11 Pickup at [id number] Unchanged allopurinol (allopurinol 300 mg Tab) 1 Tablets By Mouth Every day Unchanged hydrochlorothiazide-los theodora (hydrochlorothiazide-lo sartan 12.5 mg-100 mg oral tablet) 1 Tablets Unchanged sodium bicarbonate (sodium bicarbonate 650 mg [...] physician if questions or concerns Pharmacy Information [id number]: [address] [place], [place] [id number] [phone] What How Much When Comments Stop Taking mirabegron (mirabegron 50 mg oral tablet, extended release) 1 Tablets By M (more content not included)... Normal [facility] Ambulatory Visit Summary Ambulatory Visit Summary MANUEL BALDERAS :1950 Visit Date:12/18/2024 Ambulatory Visit Instructions Your Diagnosis OAB (overactive bladder) Elevated PSA Kidney stones BPH with urinary obstruction Family history of prostate cancer in father Your Care Team Attending Physician - NINA LEVY, Madison Crespo Primary Care Physician - JELENA LEVYKHOA This Is Your Medications List allopurinol (allopurinol 300 mg Tab) hydrochlorothiazide-los theodora (hydrochlorothiazide-lo sartan 12.5 mg-100 mg oral tablet) sodium bicarbonate (sodium bicarbonate 650 mg Tab) solifenacin (Vesicare 10 mg Tab) tamsulosin (tamsulosin 0.4 mg Cap) Contact prescribing physician if questions or concerns aspirin (aspirin 81 mg oral tablet) biotin dapagliflozin (Farxiga 10 mg oral tablet) doxycycline (doxycycline hyclate 100 mg Cap) fenofibrate (fenofibrate 160 mg oral tablet) gabapentin (gabapentin 300 mg Cap) hydrochlorothiazide (hydrochlorothiazide 25 mg Tab) insulin glargine (Basaglar KwikPen 100 units/mL subcutaneous solution) lutein metformin (metformin 1000 mg Tab) metoprolol (Metoprolol tartrate 50 mg Tab) spironolactone (spironolactone 25 mg Tab) [Image Removed: STOP]Stop taking these medications mirabegron (mirabegron 50 mg oral tablet, extended release) vibegron (Gemtesa 75 mg oral tablet) Procedures Performed ESWL - Extracorporeal shockwave lithotripsy [...] of varicose veins, Rotator cuff. Discharge Vitals Temperature (Temporal Artery) 37 ???C Heart Rate (Peripheral) 62 Respiratory Rate 16 Blood Pressure 124/71 Height 185 cm Height 73 in Weight 129.7 kg Weight 285.939 lb BMI 37.9 What to do next Scheduled Follow-Up Appointments Wednesday. 2024 11:45 AM EDT With: INNA LEVY, Madison Crespo Where: [facility] [address] [place] [address]- You Need to Schedule the Following Appointments Follow Up with NINA LEVY, MELANIE Sims When: Comments: 3 mos w/ PVR and PSA Where: [facility] [address], [facility] [place] [address]- [phone] Medications What How Much When Why Instructions New solifenacin (Vesicare 10 mg Tab) 1 Tablets By Mouth Every day OAB (overactive bladder) Refills: 11 Pickup at [facility] Unchanged allopurinol (allopurinol 300 mg Tab) 1 Tablets By Mouth Every day Unchanged hydrochlorothiazide-los theodora (hydrochlorothiazide-lo sartan 12.5 mg-100 mg oral tablet) 1 Tablets Unchanged sodium bicarbonate (sodium bicarbonate 650 mg [...] physician if questions or concerns Pharmacy Information [facility]: [address] [place] [id number] [phone] What How Much When Comments Stop Taking mirabegron (mirabegron 50 mg oral tablet, extended release) 1 Tablets By M (more content not included)... Normal [facility] Urology Office/Clinic Noteon 12-18-2024 Urology Office/Clinic Note Urology Office/Clinic Note Chief Complaint 3 month f/u with PVR HPI Staff 74 yr old male here for 3 mth f/u w/ PVR DX: BPH with urinary obstruction, elevated PSA, family history of prostate cancer, gross hematuria, nocturia, personal history of kidney stones, proteinuria, renal stone. *Flomax 0.4m QD. Started Myrbetriq 50 mg ER qd PSA: 09/11/20 - 2.20 & 36.4% 09/11/21 - 4.07 09/09/22 - 4.48 12/31/22 - 4.15 08/31/24 - 5.17 Dysuria: denies Incomplete bladder emptying: denies PVR today is 31ml. Hematuria: denies Frequency: denies Urgency: about half the time Nocturia: 2x Stream: denies weak, denies intermittency and straining Leaking: yes Post void dripping: denies Wearing pads/ Depends: wears a brief and has to change several times in 24 hours Urge incontinence: denies Stress incontinence: denies Incontinence without Sensory Awareness: denies Abdominal pain: denies Flank pain: denies Sexual complaints: denies History of Present Illness Tests reviewed: reviewed UA, PVR I have reviewed the previous health record information and history for this patient from Dr. Beach. I have reviewed and verified the staff HPI to be accurate for this encounter. Review of Systems PHQ Score Initial Depression Screen Score: 6 SCORE ROS - Provider Constitutional: denies weight [...] See HPI. Physical Exam Vitals & Measurements T: 37 ???C(Temporal Artery) HR: 62(Peripheral) RR: 16 BP: 124/71 HT: 73 in HT: 185 cm WT: 129.7 kg WT: 285.939 lb BMI: 37.9 General Appearance: alert, no distress, well nourished, well developed male. Assessment/Plan Pt accompanied by adult female today. 1. OAB (overactive bladder) (N32.81: Overactive bladder) Started on Myrbetriq 50 mg ER qd at prior OV due to leakage/dribbling with UUI. Only took for 1 month given expense but did have some sx improvement. Gemtesa was not covered by insurance. PVR today 31 mL. Discussed anticholinergics and possible SEs. Pt willing to try this. -D/c Myrbetriq -Start Vesicare 10mg qd. Recommended GoodRx. Rx sent to [facility]. -F/u in 3 mos w/ PVR 2. Elevated PSA (R97.20: Elevated prostate specific antigen [PSA]) PSA: 09/11/20 - 2.20 & 36.4% 09/11/21 - 4.07 09/09/22 - 4.48 12/31/22 - 4.15 08/31/24 - 5.17 MRI prostate 10/09/21 - Neg. [1] -PSA in 3 mos. If elevated, consider repeat MRI. 3. Kidney stones (N20.0: Calculus of kidney) KUB [...] qd, and Sodium Bicarbonate 1,950 mg bid. [2] -Cont meds wo changes -KUB due 09/2025 4. BPH with urinary obstruction (N40.1: Benign prostatic hyperplasia with lower urinary tract symptoms) IPSS 6 (6). UA today negative for blood and infection. Taking Flomax 0.4 mg qd. Good stream. OAB is more bothersome. -Cont Flomax wo changes. Pt to call for refills. 5. Family history of prostate cancer in father (Z80.42: Family history of malignant neoplasm of prostate) Cont screening above. Follow-up With When Contact Information Madison BEACH MD, URL [facility] [address], [place] [address] [phone] Additional Instructions: 3 mos w/ PVR and PSA Patient Education Overactive Bladder, Adult I, Kenyatta Mosher, personally scribed for Dr. Beach on 12/18/2024 11:32:33. . Documentation recorded by the scribe, Kenyatta Mosher, accurately reflects the services(s) I performed and decisions made by me. Authenticated by Dr. Beach on 12/18/2024 11:36:00. Problem List/Past Medical History Ongoing BPH with urinary obstruction Deep vein thrombosis (DVT) of left lower extremity Diabetes Elevated PSA Family history of prostate cancer in father Hyperlipidemia Hypertension Kidney stones Nocturia OAB (overactive bladder) Personal history of kidney stones Proteinuria Historical No qualifying data Procedure/Surgical History ESWL - Extracorporeal shockwave lithotripsy for renal calculus (01/14/2023), Cystoscopy (04/30/2015), Percutaneous nephrolithotomy (02/21/2014), Percutaneous nephroli (more content not included)... Normal [facility] Comment on above: Result Comment: Elec tronically Signed By: Madison BEACH MD\.br\Date and Time Signed: 12/18/24 11:36 EST\.br\Electronically Co-Signed By: Kenyatta Mosher\.br\Date and Time Co-Signed: 12/18/24 11:33 EST [facility] CMP (CMP) (FOR REMOTE FH C USE)on 10-26-2024 Albumin [Mass/Vol] 3.8 g/dL 3.4 - 5.0 g/dL [facility] ALBUMIN GLOBULIN RATIO 1.5 [facility] ALP [Catalytic activity/Vol] 60 U/L 46 - 116 U/L [facility] ALT [Catalytic activity/Vol] 56 U/L 16 - 63 U/L [facility] Anion gap [Moles/Vol] 14.2 mmol/L [facility] AST [Catalytic activity/Vol] 42 U/L High 15 - 37 U/L [facility] Bilirubin [Mass/Vol] 0.5 mg/dL 0.2 - 1.0 mg/dL [facility] Calcium [Mass/Vol] 10.2 mg/dL High 8.5 - 10. 1 mg/dL [facility] Chloride [Moles/Vol] 106 mmol/L 98 - 107 mmol/L [facility] CO2 [Moles/Vol] 27.4 mmol/L 21.0 - 32.0 mmol/L [facility] Creatinine [Mass/Vol] 1.32 mg/dL High 0.70 - 1.30 mg/dL [facility] GFR/1.73 sq M.predicted CKD-EPI (S/P/Bld) [Vol rate/Area] >60 >=60 mL/min/1.73m 2 [facility] Globulin (S) [Mass/Vol] 2.6 g/dL [facility] Glucose [Mass/Vol] 176 mg/dL High 74 - 106 mg/dL [facility] Interpretation and review of laboratory results Abnormal [facility] Potassium [Moles/Vol] 4.6 mmol/L 3.5 - 5.1 mmol/L [facility] Protein [Mass/Vol] 6.4 g/dL 6.4 - 8.2 g/dL [facility] Sodium [Moles/Vol] 143 mmol/L 136 - 145 mmol/L [facility] TBH EGFR-NON AF LIBYAN 53 Low >=60 mL/min/1.73m 2 [facility] Urea nitrogen [Mass/Vol] 35 mg/dL High 7.0 - 18.0 mg/dL [facility] Urea nitrogen/Creatinine [Mass ratio] 26.5 mg/mg [facility] Ambulatory Visit Summaryon 1 11-04-2023 Ambulatory [...] physician. Your Care Team Attending Physician - Madison BEACH MD Primary Care Physician - JELENA LEVY, KHOA [...] Madison BEACH MD Where: [facility] [address] [place] [address]- You Need to Schedule the Following Appointments Follow Up with NINA LEVY, MELANIE Sims When: Where: [facility] [address], [facility] [place] [address]- Medications What How Much When Instructions New mirabegron (mirabegron 50 mg oral tablet, extended release) 1 Tablets By Mouth Every day Duration: 30 Days Refills: 11 Pickup at [facility]/pharmacy #[id number] Unchanged allopurinol (allopurinol 300 mg Tab) 1 [...] physician if questions or concerns Pharmacy Information [facility]/pharmacy #[id number]: [address], [place] [phone] Allergies Demerol (Shakes) Meperidine HCl-Promethazine HCl (Unknown) Problems Ongoing - Any problem that you are currently recei (more content not included)... Normal [facility] Urology Office/Clinic Noteon 09-04-2024 Urology Office/Clinic Note [...] mg ER qd. SEs discussed. Sent to [facility] [place]. 3. Elevated PSA (R97.20: Elevated [...] [facility] [address], [place] [address]- Additional Instructions: 3 mos with PVR Patient [...] (10/26/2013), Cystoscopi (more content not included)... Normal [facility] Comment on above: Result Comment: Elec tronically Signed By: Madison BEACH MD\.br\Date and Time Signed: 09/04/24 14:27 EST\.br\Electronically Co-Signed By: Kenzie Fierro\.br\Date and Time Co-Signed: 09/04/24 14:26 EST [facility] PSA, DIAGNOSTICon 08-31 Interpretation and review of laboratory results Abnormal [facility] PROSTATE SPECIFIC ANTIGEN DX 5.17 ng/mL High NINF - 4.00 ng/mL [facility] XR pre/post mri xrayon 08-05 XR pre/post mri xray [facility] [address] [place] [id number] MRI Report Signed with Bill Patient: Manuel Balderas MR#: [id number] : 1950 Acct:[id number] Age/Sex: 73 / M ADM Date: 08/05/23 Loc: [facility]: Yaquelin Hampton PA-C Copies to: Yaquelin Hampton PA-C Ordering Provider: Yaquelin Hampton PA-C Date of Service: 08/05/23 MR/MR lumbar spine wo con: M54.10 ([id number]) XR/XR pre/post mri xray: LUMBAR MRI ADDENDUM 1 Addendum for geospatial information technologist error: L1-L2: Diffuse broad-based disc bulge is present with ligamentum flavum hypertrophy and facet joint degenerative changes causing moderate canal and bilateral neural foraminal stenosis. Impression dictated by: Rickie Cornejo Jr., Tito.OSiria09/21/2023 12:23 PM Dictation Location: [facility]--15 Addendum Dictated By: Rickie Cornejo Jr DO [...] Cornejo Jr., D.OSiria08/05/2023 3:00 PM Dictation [facility] Transcribed By: [facility] 08/05/23 1500 Dictated By: Rickie Cornejo Jr DO 08/05/23 1454 Signed By: 08/05/23 1500 Normal [facility] Physician [facility] CITRATE URINE 24HRon 023 Citric Acid, U, 24hr 1042 mg/24 hr Normal 320-1240 [facility] Comment on above: Result Comment: This test was developed and its performance characteristics determined by [facility]. It has not been cleared or approved by the Food and Drug Administration. Performed By: #### C BC #### [facility] [address] [address] [address] [place] Snowden Citric Acid, Urine 731 mg/L Normal Undefined [facility] Comment on above: Performed By: #### C BC #### [facility] [address] [place], [place] [address] Dr[address] [place] Snowden OXALATE 24HR URINEon 023 Oxalates, Urine 19 mg/L Normal Undefined [facility] Comment on above: Performed By: #### C BC #### [facility] [address] [id number] [place] Snowden Oxalates, Urine 24hr 27 mg/24 hr Normal 7-44 [facility] Comment on above: Performed By: #### C BC #### [facility] [address] [place] [address] Dr. [place] Snowden MAGNESIUM 24HR URINEon 02-05 Magnesium 24hr Urine 82.7 mg/24 hr Normal 12.0-293.0 [facility] Comment on above: Performed By: #### C BC #### [facility] [address] [place] [address] Dr. [place] Snowden Magnesium UR 5.8 mg/dL Normal Not Estab. [facility] Comment on above: Performed By: #### C BC #### [facility] [address] [place] [address] Dr. [place] Snowden PHOSPHORUS 24HR URINEon Phosphorus, Urine 59.7 mg/dL Normal Not Estab. The [facility] Comment on above: Performed By: #### P T, PTT #### [facility] [address] [place] [address] Dr. [place] Snowden Phosphorus, Urine 24hr 851 mg/24 hr Normal 390-1425 [facility] Comment on above: Performed By: #### P T, PTT #### [facility] [address] [place] [address] Dr. [place] Snowden PTH INTACTon 02-05-2023 PTH, Intact 18 pg/mL Normal 15-65 [facility] Comment on above: Performed By: #### P THINT #### [facility] [address] [place] [address] Dr. [place] Snowden URIC ACID 24 HR URINEon Uric Acid, Urine 36.4 mg/dL Normal Not Estab. The [facility] Comment on above: Performed By: #### P T, PTT #### [facility] [address] [place] [address] Dr. [place] Snowden Uric Acid, Urine 24hr 518.7 mg/24 hr Normal 136.1-771.1 [facility] Comment on above: Performed By: #### P T, PTT #### [facility] [address] [place] [address] Dr. [place] Snowden BUNon 02-04-2023 Urea nitrogen [Mass/Vol] 22.0 mg/dL Critically high 7.0-18.0 [facility] Comment on above: Performed By: #### C BC #### [facility] [address] [place] [address] Dr. [place] Snowden CALCIUMon 02-04-2023 Calcium [Mass/Vol] 9.7 mg/dL Normal 8.5-10.1 [facility] Comment on above: Performed By: #### C BC #### [facility] [address] [place] [address] Dr. [place] Snowden CALCIUM 24 HR URINEon 2022 CALC, 24 HR UR 84.1 mg/24 hr Critically low 100.0-300.0 [facility] Comment on above: Performed By: #### C [id number] #### [facility] [address] [place] [address] Dr. [place] Snowden UR CALCIUM 5.9 mg/dL Normal 5.1-21.0 [facility] Comment on above: Performed By: #### C [id number] #### [facility] [address] [place] [address] Dr. [place] Snowden UR TOT VOL 1425 ml/24 HR Normal [facility] Comment on above: Performed By: #### C [id number] #### [facility] [address] [place] [address] Dr. [place] Snowden Performed By: #### C REA24U, NA24U #### [facility] [address] [place] [address] Dr. [place] Snowden Performed By: #### P T, PTT #### [facility] [address] [place] [address] Dr. [place] Snowden CHLORIDEon 02-04-2023 Chloride [Moles/Vol] 107 mmol/L Normal 98-107 [facility] Comment on above: Performed By: #### C BC #### [facility] [address] [place] [address] Dr. [place] Snowden CO2on 02-04-2023 CO2 [Moles/Vol] 33.7 mmol/L Critically high 21.0-32.0 [facility] Comment on above: Performed By: #### A 1C #### [facility] [address] [place] [address] Dr. [place] Snowden CREA 24 HR URINEon 3 CREA, 24 HR UR 1115.21 mg/24 hr Normal 1,000.00- 2,00 0.00 [facility] Comment on above: Performed By: #### P T, PTT #### [facility] [address] [place] [address] Dr. [place] Snowden URINE CREAT 78.26 mg/dL Normal 20.00-300.00 [facility] Comment on above: Performed By: #### P T, PTT #### [facility] [address] [place] [address] Dr. [place] Snowden CREATININEon 02-04-2023 Creatinine [Mass/Vol] 0.91 mg/dL Normal 0.70-1.30 [facility] Comment on above: Performed By: #### A 1C #### [facility] [address] [place] [address] Dr. [place] Snowden EGFR-AF LIBYAN >60 Normal >=60 [facility] Comment on above: Performed By: #### A 1C #### [facility] [address] [place] [address] Dr. [place] Snowden EGFR-NON AF LIBYAN >60 Normal >=60 [facility] Comment on above: Performed By: #### A 1C #### [facility] [address] [place] [address] Dr. [place] Snowden NAon 02-04-2023 Sodium [Moles/Vol] 144 mmol/L Normal 136-145 [facility] Comment on above: Performed By: #### C BC #### [facility] [address] [place] [address] Dr. [place] Snowden POTASSIUMon 02-04-2023 Potassium [Moles/Vol] 4.1 mmol/L Normal 3.5-5.1 [facility] Comment on above: Performed By: #### A 1C #### [facility] [address] [place] [address] Dr. [place] Snowden SODIUM 24 HR URINEon 023 NA, 24 HR UR 221 mmol/24 hr Critically high 40-220 [facility] Comment on above: Performed By: #### C REA24U, NA24U #### [facility] [address] [place] [address] Dr. [place] Snowden Sodium (U) [Moles/Vol] 155 mmol/L Critically high 30-90 [facility] Comment on above: Performed By: #### C REA24U, NA24U #### [facility] [address] [place] [address] Dr. [place] Snowden URIC ACID SERUMon 02-04-2023 Urate [Mass/Vol] 4.3 mg/dL Normal 3.5-7.2 [facility] Comment on above: Performed By: #### C BC #### [facility] [address] [place] [address] Dr. [place] Snowden POINT OF CARE GLUCOSEon 12-30 Glucose [Mass/Vol] 237 mg/dL Critically high 74-106 [facility] Comment on above: Performed By: #### P T, PTT #### [facility] [address] [place] [address] Dr. [place] Snowden XR KUB 1 VIEWon [...] ISAK CORTEZ Date: 2023-01-14 08:37 Normal [facility] CBC AUTO DIFFon 01-08-2023 BASO # 0.0 103/ul Normal 0.0-0.1 [facility] Comment on above: Performed By: #### C BC #### [facility] [address] [address] [address] [place] Snowden Basophils/100 WBC (Bld) 0.4 % Normal 0.2-2.0 [facility] Comment on above: Performed By: #### C BC #### [facility] [address] [address] [address] [place] Snowden EO # 0.2 103/ul Normal 0.0-0.7 [facility] Comment on above: Performed By: #### C BC #### [facility] [address] [address] [address] [place] Snowden Eosinophils/100 WBC (Bld) 4.4 % Normal 0.9-7.0 [facility] Comment on above: Performed By: #### C BC #### [facility] [address] [address] [address] [place] Snowden Erythrocyte distribution width (RBC) [Ratio] 14.8 % Normal 11.0-15.0 [facility] Comment on above: Performed By: #### C BC #### [facility] [address] [address] [address] [place] Snowden Hematocrit (Bld) [Volume fraction] 35.7 % Critically low 42.0-54.0 [facility] Comment on above: Performed By: #### C BC #### [facility] [address] [address] [address] [place] Snowden Hemoglobin (Bld) [Mass/Vol] 12.0 g/dL Critically low 14.0-18.0 [facility] Comment on above: Performed By: #### C BC #### [facility] [address] [address] [address] [place] Snowden IG # 0.03 10e3/ul Normal 0.00-0.03 [facility] Comment on above: Performed By: #### C BC #### [facility] [address] [address] [address] [place] Snowden IG % 0.6 % Critically high 0.0-0.5 [facility] Comment on above: Performed By: #### C BC #### [facility] [address] [address] [address] [place] Snowden LYMPH # 0.7 103/ul Critically low 1.2-3.8 [facility] Comment on above: Performed By: #### C BC #### [facility] [address] [place] [address] Dr. [place] Snowden Lymphocytes/100 WBC (Bld) 14.4 % Critically low 20.5-60.0 [facility] Comment on above: Performed By: #### C BC #### [facility] [address] [place] [address] Dr. [place] Snowden MANUAL DIFF REQ NO Normal [facility] Comment on above: Performed By: #### C BC #### [facility] [address] [place] [address] Dr. [place] Snowden MCH (RBC) [Entitic mass] 31.1 pg Normal 25.9-34.0 [facility] Comment on above: Performed By: #### C BC #### [facility] [address] [place] [address] Dr. [place] Snowden MCHC (RBC) [Mass/Vol] 33.6 g/dL Normal 29.9-35.2 [facility] Comment on above: Performed By: #### C BC #### [facility] [address] [place] [address] Dr. [place] Snowden MCV (RBC) [Entitic vol] 92.5 fL Normal 80.0-94.0 [facility] Comment on above: Performed By: #### C BC #### [facility] [address] [place] [address] Dr. [place] Snowden MONO # 0.5 103/ul Normal 0.3-0.8 [facility] Comment on above: Performed By: #### C BC #### [facility] [address] [place] [address] Dr. [place] Snowden Monocytes/100 WBC (Bld) 11.0 % Normal 1.7-12.0 [facility] Comment on above: Performed By: #### C BC #### [facility] [address] [address] [address] [place] Snowden NEUT # 3.3 103/ul Normal 1.4-6.5 [facility] Comment on above: Performed By: #### C BC #### [facility] [address] [address] [address] [place] Snowden Neutrophils/100 WBC (Bld) 69.2 % Normal 43.0-75.0 [facility] Comment on above: Performed By: #### C BC #### [facility] [address] [address] [address] [place] Snowden Platelet mean volume (Bld) [Entitic vol] 10.0 fL Normal 9.5-13.5 [facility] Comment on above: Performed By: #### C BC #### [facility] [address] [place] [address] Dr. [place] Snowden PLT 105 103/ul Critically low 150-450 [facility] Comment on above: Performed By: #### C BC #### [facility] [address] [place] [address] Dr. [place] Snowden RBC 3.86 106/ul Critically low 4.70-6.10 [facility] Comment on above: Performed By: #### C BC #### [facility] [address] [place] [address] Dr. [place] Snowden WBC 4.8 103/ul Normal 4.0-11.0 [facility] Comment on above: Performed By: #### C BC #### [facility] [address] [place] [address] Dr. [place] Snowden PROF CHEM 8 (BAS METB)on Anion gap [Moles/Vol] 12.7 mmol/L Normal [facility] Comment on above: Performed By: #### C BC #### [facility] [address] [place] [address] Dr. [place] Snowden Calcium [Mass/Vol] 9.6 mg/dL Normal 8.5-10.1 [facility] Comment on above: Performed By: #### C BC #### [facility] [address] [address] [address] Cleveland Snowden Chloride [Moles/Vol] 107 mmol/L Normal 98-107 [facility] Comment on above: Performed By: #### C BC #### [facility] [address] [address] [address] Cleveland Snowden CO2 [Moles/Vol] 29.0 mmol/L Normal 21.0-32.0 [facility] Comment on above: Performed By: #### C BC #### [facility] [address] [place] [address] Dr. Cleveland Snowden Creatinine [Mass/Vol] 0.76 mg/dL Normal 0.70-1.30 [facility] Comment on above: Performed By: #### C BC #### [facility] [address] [place] [address] Dr. Cleveland Snowden EGFR-AF LIBYAN >60 Normal >=60 [facility] Comment on above: Performed By: #### C BC #### [facility] [address] [place] [address] Dr. Cleveland Snowden EGFR-NON AF LIBYAN >60 Normal >=60 [facility] Comment on above: Performed By: #### C BC #### [facility] [address] [place] [address] Dr. Cleveland Snowden Glucose [Mass/Vol] 127 mg/dL Critically high 74-106 [facility] Comment on above: Performed By: #### C BC #### [facility] [address] [place] [address] Dr. Cleveland Snowden Potassium [Moles/Vol] 3.7 mmol/L Normal 3.5-5.1 [facility] Comment on above: Performed By: #### C BC #### [facility] [address] [place] [address] Dr. Cleveland Snowden Sodium [Moles/Vol] 145 mmol/L Normal 136-145 [facility] Comment on above: Performed By: #### C BC #### [facility] [address] [place] [address] Dr. Cleveland Snowden Urea nitrogen [Mass/Vol] 21.0 mg/dL Critically high 7.0-18.0 [facility] Comment on above: Performed By: #### C BC #### [facility] [address] [place] [address] Dr. Cleveland Snowden Urea nitrogen/Creatinine [Mass ratio] 27.6 mg/mg Normal [facility] Comment on above: Performed By: #### C BC #### [facility] [address] [place] [address] Dr. Cleveland Snowden PROTIMEon 01-08-2023 INR Coag (PPP) [Relative time] 1.04 {INR} Normal [facility] Comment on above: Performed By: #### P T, PTT #### [facility] [address] [place] [address] Dr. Cleveland Snowden INR GUIDELINES SEE BELOW Normal [facility] Comment on above: Result Comment: ASHTYN RED INR: 2.0 - 3.0 CONDITIONS NOT LISTED BELOW 2.5 - 3.5 FOR PROSTHETIC HEART VALVE REPLACEMENT 2.5 - 3.5 RECURRENT THROMBOSIS Performed By: #### P T, PTT #### [facility] [address] [place] [address] Dr. Cleveland Snowden PT Coag (PPP) [Time] 11.0 s Normal 9.0-11.6 [facility] Comment on above: Performed By: #### P T, PTT #### [facility] [address] [place] [address] Dr. Cleveland Snowden PTTon 01-08-2023 aPTT Coag (Bld) [Time] 29.6 s Normal 22.3-36.2 [facility] Comment on above: Performed By: #### P T, PTT #### [facility] [address] [place] [address] Dr. Cleveland Snowden XR KUB 1 VIEWon [...] TALI ISRAEL Date: 2023-01-01 16:46 Normal [facility] GLYCOHEMOGLOBIN A1Con 2022 ADA RECOMMENDATION SEE BELOW Normal [facility] Comment on above: Result Comment: ADA RECOMMENDED LIMIT 4.0 - 6.0 ADA THERAPEUTIC TARGET < 7.0 ACTION SUGGESTED > 7.0 Performed By: #### A 1C #### [facility] [address] [address] [address] Cleveland Snowden Glucose [Mass/Vol] 126 mg/dL Normal [facility] Comment on above: Performed By: #### A 1C #### [facility] [address] [address] [address] Cleveland Snowden HbA1c (Bld) [Mass fraction] 6.0 % Normal 4.5-6.2 [facility] Comment on above: Performed By: #### A 1C #### [facility] [address] [address] [address] Cleveland Snowden XR KUB 1 VIEWon [...] TALI ISRAEL Date: 2022-09-09 15:01 Normal [facility] GLYCOHEMOGLOBIN A1Con 2021 ADA RECOMMENDATION SEE BELOW Normal [facility] Comment on above: Result Comment: ADA RECOMMENDED LIMIT 4.0 - 6.0 ADA THERAPEUTIC TARGET < 7.0 ACTION SUGGESTED > 7.0 Performed By: #### A 1C #### [facility] [address] [address] [address] Cleveland Snowden Glucose [Mass/Vol] 131 mg/dL Normal [facility] Comment on above: Performed By: #### A 1C #### [facility] [address] [address] [address] Cleveland Snowden HbA1c (Bld) [Mass fraction] 6.2 % Normal 4.5-6.2 [facility] Comment on above: Performed By: #### A 1C #### [facility] [address] [place] [address] Dr. Cleveland Snowden LIPID PROFILEon 08-06-2022 CHOL-HDL RATIO NORM SEE BELOW Normal [facility] Comment on above: Result Comment: 3.3 - 4.4 LOW RISK 4.4 - 7.1 AVERAGE RISK 7.1 - 11.0 MODERATE RISK >11.0 HIGH RISK Performed By: #### A 1C #### [facility] [address] [place] [address] Dr. Cleveland Snowden Cholesterol [Mass/Vol] 108 mg/dL Normal <=200 [facility] Comment on above: Performed By: #### A 1C #### [facility] [address] [place] [address] Dr. Cleveland Snowden Cholesterol in HDL [Mass/Vol] 36 mg/dL Critically low 40-60 [facility] Comment on above: Performed By: #### A 1C #### [facility] [address] [place] [address] Dr. Cleveland Snowden Cholesterol in LDL [Mass/Vol] 45.0 mg/dL Normal [facility] Comment on above: Performed By: #### A 1C #### [facility] [address] [place] [address] Dr. Cleveland Snowden Cholesterol.total/C holesterol in HDL [Mass ratio] 3.0 {ratio} Normal [facility] Comment on above: Performed By: #### A 1C #### [facility] [address] [place] [address] Dr. Cleveland Snowden HDL NORMAL > or = 60 mg/dl - LO W CARDIOVASCULAR RISK <40 mg/dl - HIGH CARDIOVASCULAR RISK Normal [facility] Comment on above: Performed By: #### A 1C #### [facility] [address] [address] [address] Cleveland Snowden LDL CALC NORMAL SEE BELOW Normal [facility] Comment on above: Result Comment: <100 mg/dl OPTIMAL 100 - 129 mg/dl NEAR OR ABOVE OPTIMAL 130 - 159 mg/dl BORDERLINE HIGH 160 - 189 mg/dl HIGH >190 mg/dl VERY HIGH Performed By: #### A 1C #### [facility] [address] [address] [address] Cleveland Snowden Triglyceride [Mass/Vol] 135 mg/dL Normal <=150 [facility] Comment on above: Performed By: #### A 1C #### [facility] [address] [address] [address] Cleveland Snowden VLDL CALC 27.0 mg/dL Normal [facility] Comment on above: Performed By: #### A 1C #### [facility] [address] [place] [address] Dr. Cleveland Snowden GLYCOHEMOGLOBIN A1Con 2021 ADA RECOMMENDATION SEE BELOW Normal [facility] Comment on above: Result Comment: ADA RECOMMENDED LIMIT 4.0 - 6.0 ADA THERAPEUTIC TARGET < 7.0 ACTION SUGGESTED > 7.0 Performed By: #### A 1C #### [facility] [address] [place] [address] Dr. Cleveland Snowden Glucose [Mass/Vol] 154 mg/dL Normal [facility] Comment on above: Performed By: #### A 1C #### [facility] [address] [place] [address] Dr. Cleveland Snowden HbA1c (Bld) [Mass fraction] 7.0 % Critically high 4.5-6.2 [facility] Comment on above: Performed By: #### A 1C #### [facility] [address] [place] [address] Dr. Cleveland Snowden LIPID PROFILEon 05-05-2022 CHOL-HDL RATIO NORM SEE BELOW Normal [facility] Comment on above: Result Comment: 3.3 - 4.4 LOW RISK 4.4 - 7.1 AVERAGE RISK 7.1 - 11.0 MODERATE RISK >11.0 HIGH RISK Performed By: #### P T, PTT #### [facility] [address] [address] [address] Cleveland Snowden Cholesterol [Mass/Vol] 104 mg/dL Normal <=200 [facility] Comment on above: Performed By: #### P T, PTT #### [facility] [address] [address] [address] Cleveland Snowden Cholesterol in HDL [Mass/Vol] 24 mg/dL Critically low 40-60 [facility] Comment on above: Performed By: #### P T, PTT #### [facility] [address] [address] [address] Cleveland Snowden Cholesterol in LDL [Mass/Vol] 28.0 mg/dL Normal [facility] Comment on above: Performed By: #### P T, PTT #### [facility] [address] [address] [address] Cleveland Snowden Cholesterol.total/C holesterol in HDL [Mass ratio] 4.3 {ratio} Normal [facility] Comment on above: Performed By: #### P T, PTT #### [facility] [address] [address] [address] Cleveland Snowden HDL NORMAL > or = 60 mg/dl - LO W CARDIOVASCULAR RISK <40 mg/dl - HIGH CARDIOVASCULAR RISK Normal [facility] Comment on above: Performed By: #### P T, PTT #### [facility] [address] [address] [address] Cleveland Snowden LDL CALC NORMAL SEE BELOW Normal [facility] Comment on above: Result Comment: <100 mg/dl OPTIMAL 100 - 129 mg/dl NEAR OR ABOVE OPTIMAL 130 - 159 mg/dl BORDERLINE HIGH 160 - 189 mg/dl HIGH >190 mg/dl VERY HIGH Performed By: #### P T, PTT #### [facility] [address] [address] [address] Cleveland Snowden Triglyceride [Mass/Vol] 260 mg/dL Critically high <=150 [facility] Comment on above: Performed By: #### P T, PTT #### [facility] [address] [address] [address] Cleveland Snowden VLDL CALC 52.0 mg/dL Normal [facility] Comment on above: Performed By: #### P T, PTT #### [facility] [address] [place] [address] Dr. Cleveland Snowden PROF 14(COMP METB)on 022 Albumin [Mass/Vol] 3.5 g/dL Normal 3.4-5.0 [facility] Comment on above: Performed By: #### P T, PTT #### [facility] [address] [place] [address] Dr. Cleveland Snowden Albumin/Globulin [Mass ratio] 1.1 {ratio} Normal [facility] Comment on above: Performed By: #### P T, PTT #### [facility] [address] [place] [address] Dr. Cleveland Snowden ALP [Catalytic activity/Vol] 59 U/L Normal 46-116 [facility] Comment on above: Performed By: #### P T, PTT #### [facility] [address] [place] [address] Dr. Cleveland Snowden ALT [Catalytic activity/Vol] 46 U/L Normal 16-63 [facility] Comment on above: Performed By: #### P T, PTT #### [facility] [address] [place] [address] Dr. Cleveland Snowden Anion gap [Moles/Vol] 14.7 mmol/L Normal [facility] Comment on above: Performed By: #### P T, PTT #### [facility] [address] [place] [address] Dr. Cleveland Snowden AST [Catalytic activity/Vol] 46 U/L Critically high 15-37 [facility] Comment on above: Performed By: #### P T, PTT #### [facility] [address] [place] [address] Dr. Cleveland Snowden Bilirubin [Mass/Vol] 0.5 mg/dL Normal 0.2-1.0 [facility] Comment on above: Performed By: #### P T, PTT #### [facility] [address] [place] [address] Dr. Cleveland Snowden Calcium [Mass/Vol] 9.5 mg/dL Normal 8.5-10.1 [facility] Comment on above: Performed By: #### P T, PTT #### [facility] [address] [place] [address] Dr. Cleveland Snowden Chloride [Moles/Vol] 103 mmol/L Normal 98-107 [facility] Comment on above: Performed By: #### P T, PTT #### [facility] [address] [place] [address] Dr. Cleveland Snowden CO2 [Moles/Vol] 28.1 mmol/L Normal 21.0-32.0 [facility] Comment on above: Performed By: #### P T, PTT #### [facility] [address] [place] [address] Dr. Cleveland Snowden Creatinine [Mass/Vol] 0.84 mg/dL Normal 0.70-1.30 [facility] Comment on above: Performed By: #### P T, PTT #### [facility] [address] [place] [address] Dr. Cleveland Snowden EGFR-AF LIBYAN >60 Normal >=60 [facility] Comment on above: Performed By: #### P T, PTT #### [facility] [address] [place] [address] Dr. Cleveland Snowden EGFR-NON AF LIBYAN >60 Normal >=60 [facility] Comment on above: Performed By: #### P T, PTT #### [facility] [address] [place] [address] Dr. Cleveland Snowden Globulin (S) [Mass/Vol] 3.1 g/dL Normal [facility] Comment on above: Performed By: #### P T, PTT #### [facility] [address] [place] [address] Dr. Cleveland Snowden Glucose [Mass/Vol] 176 mg/dL Critically high 74-106 [facility] Comment on above: Performed By: #### P T, PTT #### [facility] [address] [place] [address] Dr. Cleveland Snowden Potassium [Moles/Vol] 3.8 mmol/L Normal 3.5-5.1 [facility] Comment on above: Performed By: #### P T, PTT #### [facility] [address] [place] [address] Dr. Cleveland Snowden Protein [Mass/Vol] 6.6 g/dL Normal 6.4-8.2 [facility] Comment on above: Performed By: #### P T, PTT #### [facility] [address] [place] [address] Dr. Cleveland Snowden Sodium [Moles/Vol] 142 mmol/L Normal 136-145 [facility] Comment on above: Performed By: #### P T, PTT #### [facility] [address] [place] [address] Dr. Cleveland Snowden Urea nitrogen [Mass/Vol] 24.0 mg/dL Critically high 7.0-18.0 [facility] Comment on above: Performed By: #### P T, PTT #### [facility] [address] [place] [address] Dr. Cleveland Snowden Urea nitrogen/Creatinine [Mass ratio] 28.6 mg/mg Normal [facility] Comment on above: Performed By: #### P T, PTT #### [facility] [address] [place] [address] Dr. Cleveland Snowden URIC ACID SERUMon 05-05-2022 Urate [Mass/Vol] 6.2 mg/dL Normal 3.5-7.2 [facility] Comment on above: Performed By: #### P T, PTT #### [facility] [address] [place] [address] Dr. Cleveland Snowden Basophils Auto (Bld) [#/Vol] on 04-03-2021 Basophils (Bld) [#/Vol] 0.0 10*3/uL 0.0-0.2 [facility] Basophils/100 WBC Auto (Bld) on 04-03-2021 Basophils/100 WBC (Bld) 0.6 % [facility] Blood hemoglobin measurement (mass/volume)on 04-03-2021 Hemoglobin (Bld) [Mass/Vol] 12.2 g/dL 13.0-17.0 [facility] Blood leukocytes automated c ount (number/volume)on 04-03-2021 WBC (Bld) [#/Vol] 4.7 10*3/uL 4.5-11.0 [facility] Creatinine and Glomerular fi ltration rate.predicted panel (S/P/Bld)on 04-03-2021 Creatinine [Mass/Vol] 0.68 mg/dL 0.64-1.27 [facility] Eosinophils Auto (Bld) [#/Vo l]on 04-03-2021 Eosinophils (Bld) [#/Vol] 0.1 10*3/uL 0.0-0.45 [facility] Eosinophils/100 WBC Auto (Bl d)on 04-03-2021 Eosinophils/100 WBC (Bld) 3.1 % [facility] Erythrocyte distribution wid th Auto (RBC) [Ratio]on 04-03-2021 Erythrocyte distribution width (RBC) [Ratio] 15.0 % 12.0-14.8 [facility] Estimated glomerular filtrat ion rate (GFR) non- Americanon 04-03-2021 GFR/1.73 sq M.predicted among non-blacks MDRD (S/P/Bld) [Vol rate/Area] > 60 mL/Min [facility] Hematocrit Auto (Bld) [Volum e fraction]on 04-03-2021 Hematocrit (Bld) [Volume fraction] 36.2 % 38.8-50.0 [facility] - Hematology and Cell countson 04-03-2021 Nucleated RBC/100 WBC (Bld) [Ratio] 0.2 % 0-0.5 [facility] Lymphocytes Auto (Bld) [#/Vo l]on 04-03-2021 Lymphocytes (Bld) [#/Vol] 0.7 10*3/uL 1.00-4.8 [facility] Lymphocytes/100 WBC Auto (Bl d)on 04-03-2021 Lymphocytes/100 WBC (Bld) 14.5 % [facility] MCH Auto (RBC) [Entitic mass ]on 04-03-2021 MCH (RBC) [Entitic mass] 31.3 pg 27.5-35.2 [facility] MCHC Auto (RBC) [Mass/Vol]on 04-03-2021 MCHC (RBC) [Mass/Vol] 33.8 g/dL 32.5-35.6 [facility] MCV Auto (RBC) [Entitic vol] on 04-03-2021 MCV (RBC) [Entitic vol] 92.6 fL 83.5-101 [facility] Monocytes Auto (Bld) [#/Vol] on 04-03-2021 Monocytes (Bld) [#/Vol] 0.5 10*3/uL 0.0-0.8 [facility] Monocytes/100 WBC Auto (Bld) on 04-03-2021 Monocytes/100 WBC (Bld) 10.7 % [facility] Neutrophils Auto (Bld) [#/Vo l]on 04-03-2021 Neutrophils (Bld) [#/Vol] 3.3 10*3/uL 1.8-7.7 [facility] Neutrophils/100 WBC Auto (Bl d)on 04-03-2021 Neutrophils/100 WBC (Bld) 71.1 % [facility] No Panel Informationon 04-03 Estimated GFR () > 60 mL/Min [facility] Comment on above: GFR estimated refere nce range: According to KDOQI guidelines, <60 ml/min/1.73m2 is sufficient to diagnose a patient with chronic kidney disease. Pharmacy Creatinine Clearance (Chem N/A [facility] Platelet mean volume Auto (B ld) [Entitic vol]on 04-03-2021 Platelet mean volume (Bld) [Entitic vol] 8.5 fL 6.6-10.1 [facility] Platelets Auto (Bld) [#/Vol] on 04-03-2021 Platelets (Bld) [#/Vol] 137 10*3/uL 150-450 [facility] RBC Auto (Bld) [#/Vol]on RBC (Bld) [#/Vol] 3.91 10*6/uL 3.90-5.60 [facility] Serum or plasma calcium eud urement (mass/volume)on 04-03-2021 Calcium [Mass/Vol] 9.8 mg/dL 8.2-10.2 [facility] Serum or plasma chloride merlyn surement (moles/volume)on 04-03-2021 Chloride [Moles/Vol] 100 mmol/L 95-114 [facility] Serum or plasma glucose edu urement (mass/volume)on 04-03-2021 Glucose [Mass/Vol] 184 mg/dL 70-100 [facility] Comment on above: ADA recommended refe rence rangeRandom Glucose Reference Range is dependent on time and content of last meal. Glucose of more than 200 mg/dL in a nonstressed, ambulatory subject supports the diagnosis of Diabetes Mellitus. Serum or plasma potassium me asurement (moles/volume)on 04-03-2021 Potassium [Moles/Vol] 3.6 mmol/L 3.5-5.1 [facility] Serum or plasma sodium measu rement (moles/volume)on 04-03-2021 Sodium [Moles/Vol] 138 mmol/L 136-146 [facility] Serum or plasma total carbon dioxide measurement (moles/volume)on 04-03-2021 CO2 [Moles/Vol] 26.3 mmol/L 22.0-30.0 [facility] Serum or plasma urea nitroge n measurement (mass/volume)on 04-03-2021 Urea nitrogen [Mass/Vol] 17 mg/dL 9-23 [facility] Basophils Auto (Bld) [#/Vol] on 02-11-2021 Basophils (Bld) [#/Vol] 0.0 10*3/uL 0.0-0.2 [facility] Basophils/100 WBC Auto (Bld) on 02-11-2021 Basophils/100 WBC (Bld) 0.6 % [facility] Blood hemoglobin measurement (mass/volume)on 02-11-2021 Hemoglobin (Bld) [Mass/Vol] 12.6 g/dL 13.0-17.0 [facility] Blood leukocytes automated c ount (number/volume)on 02-11-2021 WBC (Bld) [#/Vol] 4.4 10*3/uL 4.5-11.0 [facility] Eosinophils Auto (Bld) [#/Vo l]on 02-11-2021 Eosinophils (Bld) [#/Vol] 0.2 10*3/uL 0.0-0.45 [facility] Eosinophils/100 WBC Auto (Bl d)on 02-11-2021 Eosinophils/100 WBC (Bld) 3.8 % [facility] Erythrocyte distribution wid th Auto (RBC) [Ratio]on 02-11-2021 Erythrocyte distribution width (RBC) [Ratio] 14.9 % 12.0-14.8 [facility] Hematocrit Auto (Bld) [Volum e fraction]on 02-11-2021 Hematocrit (Bld) [Volume fraction] 36.1 % 38.8-50.0 [facility] - Hematology and Cell countson 02-11-2021 Nucleated RBC/100 WBC (Bld) [Ratio] 0.1 % 0-0.5 [facility] Lymphocytes Auto (Bld) [#/Vo l]on 02-11-2021 Lymphocytes (Bld) [#/Vol] 0.7 10*3/uL 1.00-4.8 [facility] Lymphocytes/100 WBC Auto (Bl d)on 02-11-2021 Lymphocytes/100 WBC (Bld) 15.4 % [facility] MCH Auto (RBC) [Entitic mass ]on 02-11-2021 MCH (RBC) [Entitic mass] 32.5 pg 27.5-35.2 [facility] MCHC Auto (RBC) [Mass/Vol]on 02-11-2021 MCHC (RBC) [Mass/Vol] 34.8 g/dL 32.5-35.6 [facility] MCV Auto (RBC) [Entitic vol] on 02-11-2021 MCV (RBC) [Entitic vol] 93.3 fL 83.5-101 [facility] Monocytes Auto (Bld) [#/Vol] on 02-11-2021 Monocytes (Bld) [#/Vol] 0.5 10*3/uL 0.0-0.8 [facility] Monocytes/100 WBC Auto (Bld) on 02-11-2021 Monocytes/100 WBC (Bld) 12.1 % [facility] Neutrophils Auto (Bld) [#/Vo l]on 02-11-2021 Neutrophils (Bld) [#/Vol] 3.0 10*3/uL 1.8-7.7 [facility] Neutrophils/100 WBC Auto (Bl d)on 02-11-2021 Neutrophils/100 WBC (Bld) 68.1 % [facility] Platelet mean volume Auto (B ld) [Entitic vol]on 02-11-2021 Platelet mean volume (Bld) [Entitic vol] 8.2 fL 6.6-10.1 [facility] Platelets Auto (Bld) [#/Vol] on 02-11-2021 Platelets (Bld) [#/Vol] 118 10*3/uL 150-450 [facility] RBC Auto (Bld) [#/Vol]on RBC (Bld) [#/Vol] 3.87 10*6/uL 3.90-5.60 [facility] Creatinine (Bld) [Mass/Vol]o n 01-10-2021 Creatinine [Mass/Vol] 0.7 mg/dL 0.6-1.3 [facility] Comment on above: ER/ESD physician is notified/shown all ISTAT results.Critical values may be confirmed by laboratory testing ifdeemed necessary by ER attending doctor. No Panel Informationon 01-10 POC Estimated GFR > 60 [facility] Comment on above: GFR estimated refere nce range: According to KDOQI guidelines, <60 ml/min/1.73m2 is sufficient to diagnose a patient with chronic kidney disease. POC Estimated GFR Non- Amer > 60 [facility] Vital Signs Date Time Vital Sign Value Performing Clinician Facility 02-20-2025 07:40-0400 Body height 185.4 cm Khoa Bowles MD Work Phone: [facility] 02-20-2025 07:40-0400 Body mass index (BMI) [Ratio] 37.07 kg/m2 Khoa Bowles MD Work Phone: [facility] 02-20-2025 07:40-0400 Body weight 127.46 kg Khoa Bowles MD Work Phone: [facility] 12-28-2024 13:48-0500 Body height 185.4 cm Tiffanie Enrique DPM Work Phone: [facility] 12-28-2024 13:48-0500 Body mass index (BMI) [Ratio] 37.07 kg/m2 Tiffanie Enrique DPM Work Phone: [facility] 12-28-2024 13:48-0500 Body weight 127.46 kg Tiffanie Enrique DPM Work Phone: [facility] 12-18-2024 10:47-0500 Blood Pressure Location [place] [facility] 12-18-2024 10:47-0500 Body temperature 98.6 [degF] [place] [facility] 12-18-2024 10:47-0500 Diastolic blood pressure 71 mm[Hg] [place] [facility] 12-18-2024 10:47-0500 Heart rate 62 /min [place] [facility] 12-18-2024 10:47-0500 Respiratory rate 16 /min [place] [facility] 12-18-2024 10:47-0500 Systolic blood pressure 124 mm[Hg] [place] [facility] 09-14-2024 14:55-0500 Body height 185.4 cm Tiffanie Enrique DPM Work Phone: [facility] 09-14-2024 14:55-0500 Body mass index (BMI) [Ratio] 37.07 kg/m2 Tiffanie Enrique DPM Work Phone: [facility] 09-14-2024 14:55-0500 Body weight 127.46 kg Tiffanie Enrique DPM Work Phone: [facility] 09-04-2024 13:06-0500 Blood Pressure Location [place] [facility] 09-04-2024 13:06-0500 Diastolic blood pressure 71 mm[Hg] [place] [facility] 09-04-2024 13:06-0500 Heart rate 58 /min [place] [facility] 09-04-2024 13:06-0500 Respiratory rate 18 /min [place] [facility] 09-04-2024 13:06-0500 Systolic blood pressure 130 mm[Hg] [place] [facility] 08-08-2024 12:34-0400 Body height 185.4 cm Yaquelin MULLINS Work Phone: [facility] 08-08-2024 12:34-0400 Body mass index (BMI) [Ratio] 37.07 kg/m2 Yaquelin MULLINS Work Phone: [facility] 08-08-2024 12:34-0400 Body weight 127.46 kg Yaquelin MULLINS Work Phone: [facility] [facility] 08-08-2024 12:34-0400 Diastolic blood pressure 84 mm[Hg] Yaquelin MULLINS Work Phone: [facility] 08-08-2024 12:34-0400 Heart rate 52 /min Yaquelin Hampton PA Work Phone: [facility] 08-08-2024 12:34-0400 Respiratory rate 16 /min Yaquelin Hampton PA Work Phone: [facility] 08-08-2024 12:34-0400 SaO2% (BldA) [Mass fraction] 99 % Yaquelin MULLINS Work Phone: [facility] 08-08-2024 12:34-0400 Systolic blood pressure 130 mm[Hg] Yaquelin Hampton PA Work Phone: [facility] 07-26-2024 15:43-0400 Body height 185.4 cm Yumiko Wellsr GOVERNMENT RELATIONS DIRECTOR Work Phone: [facility] 07-26-2024 15:43-0400 Body mass index (BMI) [Ratio] 37.34 kg/m2 Yumiko Guntermor GOVERNMENT RELATIONS DIRECTOR Work Phone: [facility] 07-26-2024 15:43-0400 Body weight 128.37 kg Yumiko Lyricmor GOVERNMENT RELATIONS DIRECTOR Work Phone: [facility] 07-26-2024 15:43-0400 Diastolic blood pressure 80 mm[Hg] Yumiko Guntermor GOVERNMENT RELATIONS DIRECTOR Work Phone: [facility] 07-26-2024 15:43-0400 Heart rate 69 /min Yumiko Guntermor GOVERNMENT RELATIONS DIRECTOR Work Phone: [facility] 07-26-2024 15:43-0400 SaO2% (BldA) [Mass fraction] 97 % Yumiko Lyricmor GOVERNMENT RELATIONS DIRECTOR Work Phone: [facility] 07-26-2024 15:43-0400 Systolic blood pressure 132 mm[Hg] Yumiko Guntermor GOVERNMENT RELATIONS DIRECTOR Work Phone: [facility] 12-09-2023 11:01-0500 Body height 190.5 cm Tiffanie Enrique DPM Work Phone: [facility] 12-09-2023 11:01-0500 Body mass index (BMI) [Ratio] 36.87 kg/m2 Tiffanie Enrique DPM Work Phone: [facility] 12-09-2023 11:01-0500 Body weight 133.81 kg Tiffanie Enrique DPM Work Phone: [facility] 07-21-2023 13:32-0400 Blood Pressure Location [place] [facility] 07-21-2023 13:32-0400 Diastolic blood pressure 64 mm[Hg] [place] [facility] 07-21-2023 13:32-0400 Heart rate 54 /min [place] [facility] 07-21-2023 13:32-0400 Systolic blood pressure 117 mm[Hg] [place] [facility] 01-05-2023 10:47-0500 Blood Pressure Location [place] [facility] 01-05-2023 10:47-0500 Diastolic blood pressure 93 mm[Hg] [place] [facility] 01-05-2023 10:47-0500 Heart rate 58 /min [place] [facility] 01-05-2023 10:47-0500 Systolic blood pressure 152 mm[Hg] [place] [facility] Encounters Encounter Date Encounter Type Care Provider Facility Start: 03-19-2025 ambulatory [place] Gonzalezi ty:[facility] Start: 02-20-2025 End: 02-20-2025 Bamboo flowsheet Khoa Bowles MD Work Phone: [facility] Start: 02-20-2025 End: 02-20-2025 Bamboo flowsheet Khoa Bowles MD Work Phone: [facility] Start: 02-20-2025 End: 02-20-2025 Office outpatient visit 15 minutes Khoa Bowles MD Work Phone: [facility] Comment on above: Fall from standing, subsequent encounter; Skin tear of upper extremity; Bleeding; Encounter for examination following treatment at hospital Start: 02-20-2025 End: 02-20-2025 ambulatory KHOA BOWLES Not Available Start: 12-30-2024 End: 12-30-2024 Refill Khoa Bowles MD Work Phone: [facility] Comment on above: 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 Start: 12-28-2024 End: 12-28-2024 Bamboo flowsheet Tiffanie Enrique DPM Work Phone: [facility] Start: 12-28-2024 End: 12-28-2024 Bamboo flowsheet Tiffanie Enrique DPM Work Phone: [facility] Start: 12-28-2024 End: 12-28-2024 Patient encounter procedure Tiffanie Enrique DPM Work Phone: [facility] Comment on above: 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, not 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) ([facility]) (Primary Dx); Onychomycosis; Acquired keratoderma Start: 12-28-2024 End: 12-28-2024 ambulatory TIFFANIE ENRIQUE Not Available Start: 12-18-2024 End: 12-18-2024 ambulatory [place] Facility:[facility] Start: 12-18-2024 End: 12-18-2024 Patient encounter procedure [place] [facility] Start: 12-13-2024 End: 12-14-2024 Refill Khoa Bowles MD Work Phone: [facility] Comment on above: Type 2 diabetes nishant itus with hyperglycemia, without long-term current use of insulin ([facility]) Start: 11-11-2024 End: 11-14-2024 Refill Khoa Bowles MD Work Phone: [facility] Comment on above: Type 2 diabetes nishant itus with hyperglycemia, without long-term current use of insulin (CMS/HCC) Start: 10-31-2024 End: 10-31-2024 Bamboo flowsheet Khoa Bowles MD Work Phone: [facility] Start: 10-31-2024 End: 10-31-2024 Bamboo flowsheet Khoa Bowles MD Work Phone: [facility] Start: 10-31-2024 End: 10-31-2024 Office outpatient visit 25 minutes Khoa Bowles MD Work Phone: [facility] Comment on above: Diabetic neuropathic arthropathy (CMS/HCC) (Primary Dx); Polyneuropathy due to type 2 diabetes mellitus (CMS/HCC); Primary hypertension (CMS/HCC); Peripheral venous insufficiency; Diabetic nephropathy associated with type 2 diabetes mellitus (HCC) (CMS/HCC); Type 2 diabetes mellitus with hyperglycemia, without long-term current use of insulin (CMS/HCC); Mixed hyperlipidemia (CMS/HCC); Essential hypertension (CMS/HCC); Lymphedema of both lower extremities; Chronic cellulitis Start: 10-31-2024 End: 10-31-2024 ambulatory KHOA BOWLES [...] End: 09-14-2024 Patient encounter procedure Tiffanie Enrique DPWei Work Phone: [facility] Comment on above: 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, not 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) (CMS/HCC) (Primary Dx); Onychomycosis; Acquired keratoderma Start: 09-14-2024 End: 09-14-2024 ambulatory TIFFANIE ENRIQUE Not Available Start: 09-14-2024 End: 09-14-2024 Bamboo flowsheet Tiffanie Enrique DPM Work Phone: [facility] Start: 09-14-2024 End: 09-14-2024 Bamboo flowsheet Tiffanie Enrique DPM Work Phone: [facility] Start: 09-04-2024 End: 09-04-2024 ambulatory [place] Facility:[facility] Start: 09-04-2024 End: 09-04-2024 Patient encounter procedure [place] [facility] Start: 08-31-2024 End: 08-31-2024 Clinisync Result Encounter Generic External Data Provider [facility] External Department Unsolicited Start: 08-31-2024 End: 08-31-2024 Clinisync Result Encounter Generic External Data Provider [facility] External Department Unsolicited Start: 08-08-2024 End: 08-08-2024 Bamboo flowsheet Yaquelin MULLINS Work Phone: [facility] Start: 08-08-2024 End: 08-08-2024 Bamboo flowsheet Yaquelin MULLINS Work Phone: [facility] Start: 08-08-2024 End: 08-08-2024 Office outpatient visit 15 minutes Yaquelin MULLINS Work Phone: [facility] Comment on above: Polyradiculopathy (P rimary Dx); Polyneuropathy Start: 08-08-2024 End: 08-08-2024 ambulatory YAQUELIN HAMPTON Not Available Start: 07-26-2024 End: 07-26-2024 Office outpatient visit 25 minutes Yumiko Guzmán NP Work Phone: [facility] Comment on above: Obstructive sleep ap rohith syndrome (Primary Dx); Snoring; Obesity (BMI 30-39.9); Hypersomnia Start: 07-26-2024 End: 07-26-2024 ambulatory YUMIKO NARGIS Not Available Start: 07-26-2024 End: 07-26-2024 Bamboo flowsheet Yumiko Wellsclifford GOVERNMENT RELATIONS DIRECTOR Work Phone: [facility] Start: 07-26-2024 End: 07-26-2024 Bamboo flowsheet Yumiko Gunteroscarr GOVERNMENT RELATIONS DIRECTOR Work Phone: [facility] Start: 07-26-2024 End: 07-26-2024 ambulatory [place] Facility:[facility] Start: 07-26-2024 End: 07-26-2024 Patient encounter procedure [place] [facility] Start: 07-24-2024 End: 07-24-2024 Telephone encounter Khoa Bowles MD Work Phone: [facility] Comment on above: Care Coordination Start: 06-15-2024 End: 06-15-2024 ambulatory TIFFANIE ENRIQUE Not Available Start: 05-29-2024 End: 05-29-2024 ambulatory [facility] Start: 05-18-2024 End: 05-18-2024 ambulatory [facility] Start: 05-15-2024 End: 05-15-2024 ambulatory [facility] Start: 05-02-2024 End: 05-02-2024 ambulatory KHOA BOWLES Not Available Start: 04-11-2024 End: 04-11-2024 ambulatory YAQUELIN HAMPTON Not Available Start: 04-03-2024 End: 04-03-2024 ambulatory KHOA BOWLES Not Available Start: 2024 ambulatory KHOA BOWLES [facility] Start: 03-14-2024 End: 03-14-2024 ambulatory TIFFANIE ENRIQUE Not Available Start: 03-09-2024 End: 03-09-2024 ambulatory [facility] Start: 12-09-2023 End: 12-09-2023 Patient encounter procedure Tiffanie Enrique DPM Work Phone: [facility] Comment on above: 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, not 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) (CMS/HCC) (Primary Dx); Onychomycosis; Hallux limitus, left; Acquired keratoderma Start: 08-05-2023 End: 08-05-2023 ambulatory Yaquelin Hampton Facility:[facility] Start: 08-05-2023 End: 08-05-2023 ambulatory MD Khoa Bowles Work Phone: [facility] Work Phone: Start: 08-05-2023 End: 08-05-2023 Patient encounter procedure MD Khoa Bowles Work Phone: [facility] [address] Work Phone: Start: 07-21-2023 End: 07-21-2023 Patient encounter procedure [place] [facility] Start: 07-16-[address] KHOA CASILLAS . Facility:[facility] Start: 02-04-2023 End: 02-05-[address] [place] . Facility:[facility] Start: 01-14-2023 End: 01-14-[address] [place] . Facility:[facility] Start: 01-12-2023 Encounter for other preprocedural examination DR [place] . [facility] Start: 01-12-2023 Encounter for prepro cedural cardiovascular examination DR [place] . [facility] Start: 01-12-2023 Encounter for prepro cedural laboratory examination DR [place] . [facility] Start: 01-08-2023 End: 01-09-[address] [place] . Facility:[facility] Start: 01-08-2023 End: 01-09-2023 Encounter for preprocedural laboratory examination DR [place] . Facility:[facility] Start: 01-05-2023 End: 01-05-2023 Patient encounter procedure [place] [facility] Start: 12-31-2022 End: 01-01-[address] KHOA BOWLES . Facility:[facility] Start: 11-02-[address] KHOA CASILLAS . Facility:[facility] Start: 09-21-2022 End: 09-21-2022 Patient encounter procedure [place] [facility] Maria R Start: 09-09-2022 End: 09-10-[address] [place] . Facility:[facility] Start: 08-06-2022 End: 08-07-[address] KHOA BOWLES . Facility:[facility] Start: 05-05-2022 End: 05-06-[address] KHOA BWOLES . Facility:[facility] Start: 04-03-2021 End: 04-03-2021 Patient encounter procedure Khoa Bowles Work Phone: -Pre-Surgical Testing Start: 02-11-2021 End: 02-11-2021 Patient encounter procedure Khoa Bowles Work Phone: -[facility] [place] Start: 01-10-2021 End: 01-10-2021 Patient encounter procedure Khoa Bowles Work Phone: -[facility] [address] Procedures Date Procedure Procedure Detail Performing Clinician Start: 10-26-2024 [facility] CMP (CMP) (FOR [facility] USE) Khoa Bowles MD Work [...] Performed By: #### P T, PTT #### [facility] [address] [address] [address] Cleveland Snowden Start: 09-09-[address] [place] . Comment on above: Performed By: #### P SAD #### [facility] [address] [address] [address] Cleveland Snowden Start: 01-10-2021 MRI of lumbar spine with contrast Khoa Bowles Work Phone: Start: 01-10-2021 X-ray of lumbar spin e, four views Khoa Bowles Work Phone: Start: 06-17-2016 Colonoscopy Tiffanie ribeiro DPM Work Phone: Start: 04-30-2015 Cystoscopy [place] REESE Start: 02-21-2014 Removal of calculus of renal pelvis through percutaneous nephrostomy [place] Start: 01-23-2014 Removal of calculus of renal pelvis through percutaneous nephrostomy [place] Start: 12-27-2013 Cystoscopic extracti on of ureteric calculus without disintegration [place] Start: 11-23-2013 Cystoscopic extracti on of ureteric calculus without disintegration [place] Start: 10-26-2013 Cystoscopic insertio n of ureteric stent [place] Start: 07-01-2004 Cystoscopic removal of ureteric stent [place] Start: 06-24-2004 Cystoscopic extracti on of ureteric calculus without disintegration [place] Ankle region structu re (body structure) [place] Back structure, excl uding neck (body structure) [...] Screening for malign ant neoplasm of colon [facility] Start: 02-24-2026 Glaucoma screening Diabetes: R etinopathy Screening [facility] Start: 07-24-2025 End: 07-24-2025 Patient encounter procedure [facility] Start: 04-26-2025 Hemoglobin A1c measurement Diabetes: Hemoglobin A1C [facility] Start: 04-24-2025 End: 04-24-2025 Patient encounter procedure [facility] Start: 04-05-2025 End: 04-05-2025 Patient encounter procedure 04/05/2025 1:00 PM EDT Procedure Visit [facility] [address] [place] [phone] Tiffanie Enrique, DPWei [address] [place] [address] [facility] Start: 04-03-2025 Medicare Annual Wellness (AWV) Medicare Annual Wellness (AWV) [facility] Start: 02-20-2025 End: 02-20-2025 Patient encounter procedure 02/20/2025 8:00 AM EDT Office Visit [facility] [address] [facility] [address] [place] [address] Khoa Bowles MD [address] [facility] [address] [place] [address] Encounter for examination following treatment at hospital [facility] Comment on above: Encounter for examin ation following treatment at hospital Start: 01-22-2025 End: 01-22-2025 Patient encounter procedure [facility] Start: 12-28-2024 End: 12-28-2024 Patient encounter procedure [facility] Comment on above: Arrived Start: 10-31-2024 End: 10-31-2024 Patient encounter procedure [facility] Comment on above: Arrived Start: 09-14-2024 End: 09-14-2024 Patient encounter procedure 09/14/2024 3:00 PM EST [facility] [address] [place] [phone] Tiffanie Enrique, DPM [address] [place], [place] [id number] [facility] Start: 08-08-2024 End: 08-08-2024 Patient encounter procedure [facility] Comment on above: Arrived Start: 07-26-2024 End: 07-26-2024 Patient encounter procedure [facility] Comment on above: Arrived Start: 07-02-2024 Influenza vaccination Influenza Vacc ine (#1) [facility] Start: 06-08-2024 Glaucoma screening Diabetes: R etinopathy Screening [facility] Start: 03-09-2024 End: 03-09-2024 Patient encounter procedure 03/09/2024 1:00 PM EDT Procedure Visit [facility] [address] [place] [phone] Tiffanie Enrique, DPM [address] [place] [address] [facility] Start: 02-23-2024 Medicare Annual Wellness (AWV) Medicare Annual Wellness (AWV) [facility] Start: 02-03-2024 End: 02-03-2024 Patient encounter procedure 02/03/2024 11:30 AM EDT Office Visit [facility] [address] [place] [address] Khoa Bowles MD [address] [place] [address] (Fax) [facility] Start: 01-18-2024 Hemoglobin A1c measurement Diabetes: Hemoglobin A1C [facility] Start: 01-09-2024 Urine screening for protein Diabetes: Urine Protein Screening [facility] Start: 11-18-2022 Urine screening for protein Diabetes: Urine Protein Screening [facility] Start: 1950 Screening for malign ant neoplasm of colon [facility] Immunizations Immunization Date Immunization Notes Care Provider Fa cility 02-16-2025 tetanus toxoid, redu rhonda diphtheria toxoid, and acellular pertussis vaccine, adsorbed Khoa Bowles MD Work Phone: [facility] 10-26-2024 influenza, high dose seasonal, preservative-free Khoa Bowles MD Work Phone: [facility] 10-14-2023 Influenza, Seasonal, Quadrivalent, Adjuvanted Tiffaniemichelle Enrique DPM Work Phone: [facility] 10-14-2023 influenza virus vacc ine, unspecified formulation Khoa Bowles MD Work Phone: [facility] 09-09-2022 SARS-CoV-2 (COVID-19 ) [id number] [place] [facility] 09-03-2022 influenza virus vacc ine, unspecified formulation [place] [facility] 09-03-2022 Influenza, High-dose Seasonal, Quadrivalent, Preservative Free Tiffaniemichelle Enrique DPM Work Phone: [facility] 09-26-2021 SARS-CoV-2 (COVID-19 ) mRNA-1273 vaccine [place] [facility] 09-25-2021 Moderna SARS-CoV-2 Booster Vaccination Tiffanie Enrique DPM Work Phone: [facility] 08-22-2021 influenza virus vacc ine, unspecified formulation [place] [facility] 08-22-2021 Influenza, Seasonal, Quadrivalent, Adjuvanted Tiffanie Enrique DPM Work Phone: [facility] 08-20-2021 influenza virus vacc ine, unspecified formulation [place] [facility] 01-25-2021 COVID-19 mRNA-1273 (Moderna) Khoa Bowles Work Phone: [facility] 01-25-2021 SARS-CoV-2 (COVID-19 ) Ad26 vaccine, recombinant [place] [facility] 12-31-2020 pneumococcal conjuga te vaccine, 13 valent Khoa Bowles MD Work Phone: [facility] 12-28-2020 COVID-19 mRNA-1273 (Moderna) Khoa Bowles Work Phone: [facility] Comment on above: Result Comment: 2022: [id number] 08-06-2020 influenza virus vacc ine, unspecified formulation [place] [facility] 08-06-2020 Influenza, Seasonal, Quadrivalent, Adjuvanted Tiffanie Enrique DPM Work Phone: [facility] 09-04-2019 influenza virus vacc ine, unspecified formulation [place] [facility] 09-04-2019 influenza, high dose seasonal, preservative-free Tiffanie Enrique DPM Work Phone: [facility] 08-19-2018 influenza virus vacc ine, unspecified formulation [place] [facility] 08-19-2018 influenza, high dose seasonal, preservative-free Tiffanie Enrique DPM Work Phone: [facility] 09-06-2017 influenza virus vacc ine, unspecified formulation [place] [facility] 09-06-2017 influenza, high dose seasonal, preservative-free Tiffanie Enrique DPM Work Phone: [facility] 09-06-2017 pneumococcal polysaccharide vaccine, 23 valent [place] [facility] 08-18-2017 influenza virus vacc ine, unspecified formulation [place] [facility] 08-17-2016 influenza virus vacc ine, unspecified formulation [place] [facility] 08-17-2016 influenza, high dose seasonal, preservative-free Tiffanie Enrique DPM Work Phone: [facility] 08-17-2016 pneumococcal conjuga te vaccine, 13 valent [place] [facility] 08-22-2015 zoster vaccine, live [place] [facility] 08-17-2015 influenza, seasonal, injectable, preservative free Tiffanie Enrique DPM Work Phone: [facility] 07-27-2013 influenza virus vacc ine, unspecified formulation [place] [facility] 02-22-2012 pneumococcal polysaccharide vaccine, 23 valent Tiffanie Enrique DPM Work Phone: [facility] 07-20-2009 pneumococcal polysaccharide vaccine, 23 valent [place] [facility] Payers Date Payer Category Payer Medicare [id number] 2016 Medicare [id number] 2016 Private Health Insurance [id number] 2015 Medicare [id number] 1959 Medicare [id number] 1959 Private Health Insurance [facility] [id number] 1959 Self-pay [id number] 1950 Unknown [id number] 2.16.84 0.1.824521.3.579.2.593 1950 Unknown [id number] 2.16.84 0.1.163212.3.579.2.593 1950 Unknown [id number] 2.16.84 0.1.038303.3.579.2.593 1950 Unknown [id number] 2.16.84 0.1.038861.3.579.2.593 1950 Unknown [id number] 2.16.84 0.1.031472.3.579.2.593 1950 Unknown [id number] 2.16.84 0.1.383652.3.579.2.593 1950 Unknown [id number] 2.16.84 0.1.028011.3.579.2.593 1950 Unknown [id number] 2.16.84 0.1.696756.3.579.2.593 1950 Unknown [id number] 2.16.84 0.1.176724.3.579.2.593 1950 Unknown [id number] 2.16.84 0.1.050317.3.579.2.593 1950 Unknown [id number] 2.16.8 40.1.447179.3.579.2.1286 1950 Unknown [id number] 2.16.8 40.1.123558.3.579.2.1286 1950 Unknown [id number] 2.16.8 40.1.186212.3.579.2.1286 1950 Unknown [id number] 2.16.8 40.1.464426.3.579.2.1286 1950 Unknown [id number] 2.16.8 40.1.910438.3.579.2.1286 1950 Unknown [id number] 2.16.8 40.1.431312.3.579.2.1286 1950 Unknown [id number] 2.16.8 40.1.305338.3.579.2.727 1950 Unknown [id number] 2.16.8 40.1.944829.3.579.2.727 1950 Unknown [id number] 2.16.8 40.1.412170.3.579.2.727 1950 Unknown [id number] 2.16.8 40.1.411499.3.579.2.727 1950 Unknown [id number] 2.16.84 0.1.943622.3.579.2.1259 1950 Unknown [id number] 2.16.84 0.1.539683.3.579.2.1259 1950 Unknown [id number] 2.16.84 0.1.640749.3.579.2.1259 1950 Unknown [id number] 2.16.84 0.1.106672.3.579.2.1259 1950 Unknown [id number] 2.16.84 0.1.489863.3.579.2.1259 1950 Unknown [id number] 2.16.84 0.1.653961.3.579.2.1259 1950 Unknown [id number] 2.16.84 0.1.024868.3.579.2.1258 1950 Unknown [id number] 2.16.84 0.1.857677.3.579.2.125 1950 Unknown [id number] 2.16.84 0.1.829961.3.579.2.1258 1950 Unknown [id number] 2.16.84 0.1.452096.3.579.2.9 1950 Unknown [id number] 2.16.84 0.1.443634.3.579.2.1259 Unknown [id number] Unknown [id number] 2.16.8 40.1.219774.3.579.2.531 Social History Date Type Detail Facility Start: 04-03-2021 End: 06-02-2023 Tobacco smoking status MIIS Never smoked tobacco (finding) [facility] Start: 1950 Sex Assigned At Male [facility] Tobacco smoking status Never [facility] Start: 12-09-2023 End: 04-03-2024 Sex Assigned At Male [facility] Start: 12-09-2023 End: 02-20-2025 Alcohol intake Lifetime non-drinker (finding) [facility] Start: 12-09-2023 End: 04-03-2024 History of Social function [facility] Start: 04-14-2023 Alcohol Comment Caffeine intake: non e [facility] Start: 1950 Sex Assigned At Not on file [facility] Medical Equipment Procedure Code Equipment Code Equipment Origin al Text Equipment Identifier Dates Discectomy, lumbar COFLEX SIZE [address] art: 11-23-2018 Discectomy, lumbar COFLEX SIZE 14 [facility] art: 11-23-2018 Discectomy, lumbar COFLEX SIZE 14 [facility] art: 11-23-2018 Discectomy, lumbar COFLEX SIZE 10 [facility] art: 11-23-2018 [id number] Start: 08-02-2023 End: 07-27-2024 1 Units in the morning. Take before meals. Accucheck soft clix. [id number] Start: 11-10-2023 End: 11-04-2024 Injection subcutaneous [id number] Start: 11-11-2023 Use for Injectio n subcutaneous twice daily [id number] Start: 07-24-2024 Injection subcutaneous [id number] Start: 06-01-2024 End: 07-24-2024 Functional Status Date Assessment Result Facility 12-18-2024 Functional Status N/A [facility] 09-04-2024 Functional Status N/A [facility] 07-21-2023 Functional Status N/A [facility] 01-05-2023 Functional Status N/A [facility] Clinical Notes 09-21-2022 to 02-20-2025 Khoa Bowles MD - 02/20/2025 8:00 AM Ari Enrique DPM - 12/28/2024 2:00 PM Julisa Bowles MD - 10/31/2024 11:30 AM Jayesh Enrique DPM - 09/14/2024 3:00 PM EST Note Date & Type Note Facility 02-20-2025 History of Present illness Narrative Images from the original note were not included. Patient ID: Manuel Balderas is a 74 y.o. male who presents for: ER Follow up: Fall Skin tear Flowsheet Row Patient Outreach from 02/19/2025 in [facility] with Larissa Leavitt RN Hospital Information ED, Hospital or Senior Care Facility Discharge? ED Patient has been contacted within 2 days of being seen in the ED Yes Diagnosis Skin tear Discharge Date 02/16/25 Discharged To: Home Setting Discharge Hospital [facility] Engagement Call Start Time 145 Admission Date 02/16/25 Medications Discharge medications reviewed and reconciled from hospital? Not applicable Does the patient have all medications ordered at discharge? Not applicable Is the patient taking all medications as directed (includes completed medication regime)? Yes Appointments Does the patient have a primary care provider? Yes [appt 02/20 at 7:40 am] Nursing Interventions Verified appointment date/time/provider Does the patient have any upcoming specialty appointments? Yes Self Management Does patient have home health? no Patient Teaching Does the patient have access to their discharge instructions? Yes [spoke with Summer, pt's ] Nursing Interventions Reviewed instructions with patient What is the patient's perception of their health status since discharge? Worsening [Right arm, elbow down to hand is swollen, no warmth, no pain] Is the patient/caregiver able to teach back the hierarchy of who to call/visit for symptoms/problems? PCP, Specialist, Home Health nurse, Urgent Care, ED, 911 Yes Wrap Up Wrap Up Additional Comments Pt had a fall at home in the kitchen. Skin tear right arm by elbow. Had trouble stopping ther bleeding. Skin tear cleansed and gel foam and dressing applied at er. TEST: XR right knee negative, Doppler right leg- negative. Pt/ reports that right arm is swollen from elbow down to hand. No warmth, no pain. Call End Time 1507 Review of Systems Constitutional: Negative for chills and fever. Skin: Positive for wound. Hematological: Bruises/bleeds easily. Objective The patient is pleasant and in no acute distress The patient has good eye contact and clear speech He walks in with his walker In his usual gait and stance. A mildly bloody right arm dressing is removed. He has a skin tear on the radial side of the elbow. The open spot is a proximally 3 by 1-1/2 cm. There is a flap of some devitalized tissue approximately 2-1/2 x 1 cm towards the fingertips. There is no active bleeding at this time. No evidence of secondary infection. There is some minimal swelling of the right arm compared to the left. Visit Vitals Ht 6' 1 Wt 281 lb BMI 37.07 kg/m Smoking Status Never BSA 2.56 m Allergies Allergen Reactions Meperidine Other Reaction(s): Other: See Comments moise Meperidine Hcl Other Reaction(s): Shakes, shakes Pioglitazone Swelling Current Outpatient Medications on File Prior to Visit Medication Sig Dispense Refill allopurinol (Zyloprim) 300 MG tablet Take 300 mg by mouth Daily aspirin 81 MG EC tablet Take 81 mg by mouth in the morning. biotin 60805 MCG tablet Take 1 tablet by mouth in the morning and 1 tablet before bedtime. Blood Glucose Monitoring Suppl (Blood Glucose Monitoring 333) device 1 Device continuously Accucheck dapagliflozin (Farxiga) 10 MG Take 1 tablet (10 mg) by mouth Daily 90 tablet 1 doxycycline (Monodox) 100 MG capsule Take 1 capsule (100 mg) by mouth Daily 90 capsule 3 DULoxetine (Cymbalta) [address] capsule Take 20 mg by mouth in the morning and 20 mg before bedtime. fenofibrate (Triglide) 160 MG tablet Take 1 tablet (160 mg) by mouth Daily 90 tablet 1 ferrous sulfate 325 (65 Fe) MG tablet Take 325 mg by mouth in the morning. Take with meals. Flomax 0.4 MG 24 hr capsule Take 0.4 mg by mouth in the evening. Glucose Blood (Blood Glucose Test Strips 333) strip 1 strip by In Vitro route in the morning and 1 strip in the evening. Take before meals. hydroCHLOROthiazide (HYDRODiuril) 25 MG tablet Take 1 tablet (25 mg) by mouth in the evening 90 tablet 1 insulin glargine (Basaglar KwikPen) 100 UNIT/ML pen INJECT BID, SLIDING BLOOD GLUCOSE SCALE WITH THE COVERAGE: <70, ZERO AND EAT. 70-150, 10 UNITS. 151-200, 14 UNITS. 201-250, 16 UNITS. 251-300, 18 UNITS. >300, 20 UNITS 15 each 3 Lancets misc 1 Lancet in the morning and 1 Lancet in the evening. Take before meals. losartan-hydroCHLOROthiazide (Hyzaar) 100-12.5 MG tablet Take 1 tablet by mouth Daily 90 tablet 1 Lutein 20 MG tablet 1 (one) time each day at the same time. metFORMIN (Glucophage) 1000 MG tablet Take 1 tablet (1,000 mg) by mouth in the morning and 1 tablet (1,000 mg) in the evening. Take with meals. 180 tablet 1 metoprolol tartrate (Lopressor) 50 MG tablet Take 1 tablet (50 mg) by mouth in the morning and 1 tablet (50 mg) before bedtime. 180 tablet 1 pen needle 32G x 6 mm misc Use for Injection subcutaneous twice daily 200 each 3 sodium bicarbonate 650 MG tablet Take 3 tablets by mouth in the morning and 3 tablets before bedtime. spironolactone (Aldactone) 25 MG tablet 2 tablets in Am and 1 tablet in PM 270 tablet 1 VESIcare 10 MG tablet Take 10 mg by mouth Daily No current facility-administered medications on file prior to visit. 1. Fall from standing, subsequent encounter The patient notes he just turned too quickly and sort of lost his footing and he had a fall. He denies any other falls. They report that the x-ray of the ultrasound done in the emergency room were normal. 2. Skin tear of upper extremity I did elect not to remove the devitalized piece of tissue since there had previously been so much bleeding. I discussed with them if this is not come off naturally on its own we may need to go ahead and remove it but I would rather give it another day or 2. I did redress with bacitracin Telfa and Fozia. I discussed with them using a healing cream instead of antibiotic ointment, but dressing it the same way I did. It is right at the cook of the elbow and every time he moves his arm is going to pop so I do not think a hydrocolloid all dressing will stick well. I did recommend he shower with the dressing in place and then after he gets out and he is all dried off they can go ahead and change out the dressing. 3. Bleeding Going to have him hold his aspirin therapy through the rest of the week and resume it next week. 4. Encounter for examination following treatment at hospital This visit is prompted as a transition of care. The patient has been contacted by phone within 2 business days of discharge or at least 2 unsuccessful attempts were made to contact the patient within the 2 business days. Any available documents including; emergency room note, visit notes, consults, and discharge summary or continuity of care documents were reviewed. Any laboratory investigation or diagnostic imaging that was ordered by outside physicians and available was obtained and reviewed. The transition of care note is reviewed. a ezpj-tt-[id number] evaluation is done today. Medical decision making is complex in degree. documented in this encounter [facility] 12-28-2024 History of Present illness Narrative Images from the original note were not included. Subjective Patient ID: Manuel Balderas is a 74 y.o. male who presents for Nail care (Manuel Balderas is a 74 y.o. male who presents for DM Foot Care. Patient relates he has followed up with Dr. Cortez, had CT scan of Left ankle, Brace is being made. PCP: Dr. Bowles LV 10/31/2024, A1C: 6.6, BS: 131, SS: 12). Established patient returns requesting nail debridement and callus debridement. He states he recently had a CT scan of his left ankle that showed significant arthritis. He is getting a custom brace at an orthotic prosthetic Center in [facility] Review of Systems Current Outpatient Medications: allopurinol (Zyloprim) 300 MG tablet, Take 300 mg by mouth Daily, Disp: , Rfl: aspirin 81 MG EC tablet, Take 81 mg by mouth in the morning., Disp: , Rfl: biotin 80413 MCG tablet, 1 (one) time each day at the same time., Disp: , Rfl: dapagliflozin (Farxiga) 10 MG, Take 1 tablet (10 mg) by mouth Daily, Disp: 90 tablet, Rfl: 1 doxycycline (Monodox) 100 MG capsule, Take 1 capsule (100 mg) by mouth Daily, Disp: 90 capsule, Rfl: 3 fenofibrate (Triglide) [...] >300, 20 units, Disp: 3 mL, Rfl: 3 losartan-hydroCHLOROthiazide (Hyzaar) 100-12.5 MG tablet, [...] before bedtime., Disp: 180 tablet, Rfl: 1 sodium bicarbonate 650 MG tablet, Take 3 tablets by mouth in the morning and 3 tablets before bedtime., Disp: , Rfl: spironolactone (Aldactone) 25 MG tablet, 2 tablets in Am and 1 tablet in PM, Disp: 270 tablet, Rfl: 1 VESIcare 10 MG tablet, Take 10 mg by mouth, Disp: , Rfl: pen needle 32G x 6 mm misc, Use for Injection subcutaneous twice daily, Disp: 200 each, Rfl: 3 Meperidine, Meperidine hcl, and Pioglitazone Past Surgical [...] of 1 of the Coflex devices., Uday, [facility] ROTATOR CUFF REPAIR Left 2000 anterior stabilization SPINAL CORD DECOMPRESSION 04/2021 Lumbar Family History Problem Relation Name Age of Onset Diabetes Mother Renee Other (NonHodgkins Lymphoma) Father No Known Problems [...] chronic brawny edema. HYPERKERATOSIS: Plantar HIPJ L. Diffuse callus noted WB surface of L heel, but not as thick as it has been at past visits NAIL PATHOLOGY:R hallux has been permanently removed [...] Mood normal. Behavior: Behavior normal. MODIFIER: Q9, 05262, 92611 Assessment/Plan ICD-10-CM 1. Type II or unspecified type diabetes mellitus with neurological manifestations, not 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) ([facility]) E11.49 2. Onychomycosis B35.1 3. Acquired keratoderma L85.1 All 10 nails debrided, reduced in thickness and in length. Instrumentation: large and small nipper, curette, and power bur. With this treatment, relief obtained. Feet inspected, hygiene discussed, shoe gear also inspected. Callus at L hallux was debrided by me with #15 blade. Patient encouraged to monitor the left heel. Previously this has become significantly thick. It is not thick today and did not require debridement. Call if questions or concerns arise This note was created with the assistance of a speech recognition program. While intending to generate a timely document that accurately reflects the content of the visit, no guarantee can be provided that every grammatical or spelling mistake has been or will be identified or corrected. Thank you for your understanding. Tiffanie Enrique DPM documented in this encounter [facility] 12-18-2024 Hospital Discharge instructions Patient Education 12/18/2024 11:28:40 Overactive Bladder, Adult Overactive Bladder, Adult Overactive bladder is a condition in which a person has a sudden and frequent need to urinate. A person might also leak urine if he or she cannot get to the bathroom fast enough (urinary incontinence). Sometimes, symptoms can interfere with work or social activities. What are the causes? Overactive bladder is associated with poor nerve signals between your bladder and your brain. Your bladder may get the signal to empty before it is full. You may also have very sensitive muscles that make your bladder squeeze too soon. This condition may also be caused by other factors, such as: Medical conditions: ?Urinary tract infection. ?Infection of nearby tissues. ?Prostate enlargement. ?Bladder stones, inflammation, or tumors. ?Diabetes. ?Muscle or nerve weakness, especially from these conditions: ?A spinal cord injury. ?Stroke. ?Multiple sclerosis. ?Parkinson's disease. Other causes: ?Surgery on the uterus or urethra. ?Drinking too much caffeine or alcohol. ?Certain medicines, especially those that eliminate extra fluid in the body (diuretics). ?Constipation. What increases the risk? You may be at greater risk for overactive bladder if you: Are an older adult. Smoke. Are going through menopause. Have prostate problems. Have a neurological disease, such as stroke, dementia, Parkinson's disease, or multiple sclerosis (MS). Eat or drink alcohol, spicy food, caffeine, and other things that irritate the bladder. Are overweight or obese. What are the signs or symptoms? Symptoms of this condition include a sudden, strong urge to urinate. Other symptoms include: Leaking urine. Urinating 8 or more times a day. Waking up to urinate 2 or more times overnight. How is this diagnosed? This condition may be diagnosed based on: Your symptoms and medical history. A physical exam. Blood or urine tests to check for possible causes, such as infection. You may also need to see a health care provider who specializes in urinary tract problems. This is called a urologist. How is this treated? Treatment for overactive bladder depends on the cause of your condition and whether it is mild or severe. Treatment may include: Bladder training, such as: ?Learning to control the urge to urinate by following a schedule to urinate at regular intervals. ?Doing Kegel exercises to strengthen the pelvic floor muscles that support your bladder. Special devices, such as: ?Biofeedback. This uses sensors to help you become aware of your body's signals. ?Electrical stimulation. This uses electrodes placed inside the body (implanted) or outside the body. These electrodes send gentle pulses of electricity to strengthen the nerves or muscles that control the bladder. ?Women may use a plastic device, called a pessary, that fits into the vagina and supports the bladder. Medicines, such as: ?Antibiotics to treat bladder infection. ?Antispasmodics to stop the bladder from releasing urine at the wrong time. ?Tricyclic antidepressants to relax bladder muscles. ?Injections of botulinum toxin type A directly into the bladder tissue to relax bladder muscles. Surgery, such as: ?A device may be implanted to help manage the nerve signals that control urination. ?An electrode may be implanted to stimulate electrical signals in the bladder. ?A procedure may be done to change the shape of the bladder. This is done only in very severe cases. Follow these instructions at home: Eating and drinking Make diet or lifestyle changes recommended by your health care provider. These may include: ?Drinking fluids throughout the day and not only with meals. ?Cutting down on caffeine or alcohol. ?Eating a healthy and balanced diet to prevent constipation. This may include: ?Choosing foods that are high in fiber, such as beans, whole grains, and fresh fruits and vegetables. ?Limiting foods that are high in fat and processed sugars, such as fried and sweet foods. Lifestyle Lose weight if needed. Do not use any products that contain nicotine or tobacco. These include cigarettes, chewing tobacco, and vaping devices, such as e-cigarettes. If you need help quitting, ask your health care provider. General instructions Take gyrn-gfe-auqwxio and prescription medicines only as told by your health care provider. If you were prescribed an antibiotic medicine, take it as told by your health care provider. Do not stop taking the antibiotic even if you start to feel better. Use any implants or pessary as told by your health care provider. If needed, wear pads to absorb urine leakage. Keep a log to track how much and when you drink, and when you need to urinate. This will help your health care provider monitor your condition. Keep all follow-up visits. This is important. Contact a health care provider if: You have a fever or chills. Your symptoms do not get better with treatment. Your pain and discomfort get worse. You have more frequent urges to urinate. Get help right away if: You are not able to control your bladder. Summary Overactive bladder refers to a condition in which a person has a sudden and frequent need to urinate. Several conditions may lead to an overactive bladder. Treatment for overactive bladder depends on the cause and severity of your condition. Making lifestyle changes, doing Kegel exercises, keeping a log, and taking medicines can help with this condition. This information is not intended to replace advice given to you by your health care provider. Make sure you discuss any questions you have with your health care provider. Document Revised: 07/07/2021 Document Reviewed: 07/07/2021 [employer] Patient Education 2023 [employer]. Follow Up Care 09/04/2024 14:29:02 With:NINA LEVY, Madison Crespo, URL Address: [facility] [address] , [place] [address]- [phone] When: Unknown Comments:3 mos w/ PVR and PSA [facility] 12[facility]18-2024 Note Patient Education Obstetrics and Gynecology Overactive Bladder, Adult Overactive bladder is a condition in which a person has a sudden and frequent need to urinate. A person might also leak urine if he or she cannot get to the bathroom fast enough (urinary incontinence). Sometimes, symptoms can interfere with work or social activities. What are the causes? Overactive bladder is associated with poor nerve signals between your bladder and your brain. Your bladder may get the signal to empty before it is full. You may also have very sensitive muscles that make your bladder squeeze too soon. This condition may also be caused by other factors, such as: ??? Medical conditions: ? Urinary tract infection. ? Infection of nearby tissues. ? Prostate enlargement. ? Bladder stones, inflammation, or tumors. ? Diabetes. ? Muscle or nerve weakness, especially from these conditions: ? A spinal cord injury. ? Stroke. ? Multiple sclerosis. ? Parkinson's disease. ??? Other causes: ? Surgery on the uterus or urethra. ? Drinking too much caffeine or alcohol. ? Certain medicines, especially those that eliminate extra fluid in the body (diuretics). ? Constipation. What increases the risk? You may be at greater risk for overactive bladder if you: ??? Are an older adult. ??? Smoke. ??? Are going through menopause. ??? Have prostate problems. ??? Have a neurological disease, such as stroke, dementia, Parkinson's disease, or multiple sclerosis (MS). ??? Eat or drink alcohol, spicy food, caffeine, and other things that irritate the bladder. ??? Are overweight or obese. What are the signs or symptoms? Symptoms of this condition include a sudden, strong urge to urinate. Other symptoms include: ??? Leaking urine. ??? Urinating 8 or more times a day. ??? Waking up to urinate 2 or more times overnight. How is this diagnosed? This condition may be diagnosed based on: ??? Your symptoms and medical history. ??? A physical exam. ??? Blood or urine tests to check for possible causes, such as infection. You may also need to see a health care provider who specializes in urinary tract problems. This is called a urologist. How is this treated? Treatment for overactive bladder depends on the cause of your condition and whether it is mild or severe. Treatment may include: ??? Bladder training, such as: ? Learning to control the urge to urinate by following a schedule to urinate at regular intervals. ? Doing Kegel exercises to strengthen the pelvic floor muscles that support your bladder. ??? Special devices, such as: ? Biofeedback. This uses sensors to help you become aware of your body's signals. ? Electrical stimulation. This uses electrodes placed inside the body (implanted) or outside the body. These electrodes send gentle pulses of electricity to strengthen the nerves or muscles that control the bladder. ? Women may use a plastic device, called a pessary, that fits into the vagina and supports the bladder. ??? Medicines, such as: ? Antibiotics to treat bladder infection. ? Antispasmodics to stop the bladder from releasing urine at the wrong time. ? Tricyclic antidepressants to relax bladder muscles. ? Injections of botulinum toxin type A directly into the bladder tissue to relax bladder muscles. ??? Surgery, such as: ? A device may be implanted to help manage the nerve signals that control urination. ? An electrode may be implanted to stimulate electrical signals in the bladder. ? A procedure may be done to change the shape of the bladder. This is done only in very severe cases. Follow these instructions at home: Eating and drinking ??? Make diet or lifestyle changes recommended by your health care provider. These may include: ? Drinking fluids throughout the day and not only with meals. ? Cutting down on caffeine or alcohol. ? Eating a healthy and balanced diet to prevent constipation. This may include: ? Choosing foods that are high in fiber, such as beans, whole grains, and fresh fruits and vegetables. ? Limiting foods that are high in fat and processed sugars, such as fried and sweet foods. Lifestyle ??? Lose weight if needed. ??? Do not use any products that contain nicotine or tobacco. These include cigarettes, chewing tobacco, and vaping devices, such as e-cigarettes. If you need help quitting, ask your health care provider. General instructions ??? Take qerg-fjn-jgumbqp and prescription medicines only as told by your health care provider. ??? If you were prescribed an antibiotic medicine, take it as told by your health care provider. Do not stop taking the antibiotic even if you start to feel better. ??? Use any implants or pessary as told by your health care provider. ??? If needed, wear pads to absorb urine leakage. ??? Keep a log to track how much and when you drink, and whe (more content not included)... [facility] 10-31-2024 History of Present illness Narrative Images from the original note were not included. Patient ID: Manuel Balderas is a 74 y.o. male who presents for: Patient is here for re-evaluation of his chronic problems. He notes that his neuropathy and pain are about the same. Continues to have pain where his ankle was fused. He also continues to have the swelling and chronic cellulitis and he believes it is about the same. He is not checking blood pressures at home but thinks they are okay. Denies any chest pain, palpitations, headaches. His home blood sugar readings seem to be pretty good. He has got no new diabetic symptoms. Review of Systems Constitutional: Negative for chills, fatigue and fever. Respiratory: Negative for cough and shortness of breath. Cardiovascular: Positive for leg swelling. Negative for chest pain and palpitations. Gastrointestinal: Negative for diarrhea, nausea and vomiting. Objective The patient is pleasant and in no acute distress. The neck is supple and trachea is midline. No masses are appreciated. The heart is regular rate and rhythm without S3, S4. No murmur. The patient has normal respiratory pattern. The breath sounds are symmetrical without evidence of rhonchi or rales. No wheezing. The skin is warm and dry. The lower extremities have trace edema. The patient has good eye contact and speech is clear. Appropriate affect. Visit Vitals Smoking Status Never Component Ref Range & Units 5 d ago (10/26/24) 6 mo ago (04/27/24) 9 mo ago (02/02/24) 1 yr ago (10/19/23) 1 yr ago (07/27/23) GLYCOHEMOGLOBIN A1C 4.5 - 6.2 % 6.6 High 6.6 High CM 7.7 High CM 7.9 High CM 7.5 High CM Allergies Allergen Reactions Meperidine Other Reaction(s): Other: See Comments shakes Meperidine Hcl Other Reaction(s): Shakes, shakes Pioglitazone Swelling Current Outpatient Medications on File Prior to Visit Medication Sig Dispense Refill aspirin 81 MG EC tablet Take 81 mg by mouth in the morning. biotin 88534 MCG tablet 1 (one) time each day at the same time. ferrous sulfate 325 (65 Fe) MG tablet Take 325 mg by mouth in the morning. Take with meals. Flomax 0.4 MG 24 hr capsule Take 0.4 mg by mouth in the evening. hydroCHLOROthiazide (HYDRODiuril) 25 MG tablet Take 1 tablet (25 mg) by mouth in the evening 90 tablet 1 Lutein 20 MG tablet 1 (one) time each day at the same time. pen needle 32G x 6 mm misc Use for Injection subcutaneous twice daily 200 each 3 sodium bicarbonate 650 MG tablet Take 3 tablets by mouth in the morning and 3 tablets before bedtime. [DISCONTINUED] insulin glargine (Basaglar KwikPen) 100 UNIT/ML pen Inject bid, sliding blood glucose scale with the coverage: <70, zero and eat. 70-150, 10 units. 151-200, 14 units. 201-250, 16 units. 251-300, 18 units. >300, 20 units 3 mL 1 No current facility-administered medications on file prior to visit. 1. Diabetic neuropathic arthropathy (CMS/HCC) (Primary) Chronic problem, demonstrating end-organ damage from his diabetes. Stable and monitor longitudinally. 2. Polyneuropathy due to type 2 diabetes mellitus (CMS/HCC) As above 3. Primary hypertension (CMS/HCC) Duplicate diagnosis see the essential hypertension later in the note 4. Peripheral venous insufficiency Chronic problem, stable. He does have some compression hose in place. 5. Diabetic nephropathy associated with type 2 diabetes mellitus (HCC) (CMS/HCC) Chronic problem, stable. - dapagliflozin (Farxiga) 10 MG; Take 1 tablet (10 mg) by mouth Daily Dispense: 90 tablet; Refill: 1 6. Type 2 diabetes mellitus with hyperglycemia, without long-term current use of insulin (CMS/HCC) Chronic problem, stable, actually to goal at this point. If he continues to be a goal we will consider removing the hyperglycemia component. - metFORMIN (Glucophage) 1000 MG tablet; Take 1 tablet (1,000 mg) by mouth in the morning and 1 tablet (1,000 mg) in the evening. Take with meals. Dispense: 180 tablet; Refill: 1 7. Mixed hyperlipidemia (CMS/HCC) Chronic problem, stable In prescribing a renewal to their current medication, consideration of the following encompasses moderate decision making; the current prescriptions and supplements, the current allergies and medication intolerances, current medical conditions, and potential drug interactions. Any changes to risks, benefits, and reason for renewing their current medication due to the above were discussed. The patient was given a chance to ask questions today and all questions were answered. The patient is to contact us if any other questions arise or if any problems occur. (Utilizing the original 1994/1996 guidelines or the 2020 office/outpatient code guidelines for selecting the level of E/M service, In both sets of guidelines, prescription drug management appears in the moderate medical decision making (MDM) row. Neither the original guidelines nor the new guidelines state that a new prescription or change is needed in order to credit prescription drug management) - fenofibrate (Triglide) 160 MG tablet; Take 1 tablet (160 mg) by mouth Daily Dispense: 90 tablet; Refill: 1 8. Essential hypertension (CMS/HCC) Chronic problem, stable, renew prescriptions. Losartan is also cross treating the chronic kidney disease. - losartan-hydroCHLOROthiazide (Hyzaar) 100-12.5 MG tablet; Take 1 tablet by mouth Daily Dispense: 90 tablet; Refill: 1 - metoprolol tartrate (Lopressor) 50 MG tablet; Take 1 tablet (50 mg) by mouth in the morning and 1 tablet (50 mg) before bedtime. Dispense: 180 tablet; Refill: 1 9. Lymphedema of both lower extremities Chronic problem, stable. Spironolactone is also cross treating the hypertension. - spironolactone (Aldactone) 25 MG tablet; 2 tablets in Am and 1 tablet in PM Dispense: 270 tablet; Refill: 1 10. Chronic cellulitis Chronic problem, stable, no side effects from long-term antibiotic usage. - doxycycline (Monodox) 100 MG capsule; Take 1 capsule (100 mg) by mouth Daily Dispense: 90 capsule; Refill: 3 documented in this encounter [facility] 09-14-2024 History of Present illness Narrative Images [...] in the morning., Disp: , Rfl: biotin 85980 MCG tablet, 1 (one) time each day [...] of 1 of the Coflex devices., [facility] ROTATOR CUFF REPAIR Left 1999 anterior stabilization [...] Mood normal. Behavior: Behavior normal. MODIFIER: Q9, 96713, 83241 Assessment/Plan ICD-10-CM 1. Type II or unspecified type diabetes mellitus with neurological manifestations, not 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) (CMS/[facility]) E11.49 2. Onychomycosis B35.1 3. Acquired keratoderma [...] Tiffanie Enrique DPM documented in this encounter [facility] 09-04-2024 Hospital Discharge instructions Patient Education [...] include: ?8 oz (237 mL) of milk, ukrkvkr-wrmliolnamwr-wqitc milk, and calcium-fortifiedfruit juice. Calcium-fortified means that [...] ?Spinach (cooked), rhubarb, beets, sweet potatoes, and [place] chard. ?Peanuts. ?Potato chips, moroccan fries, and baked potatoes with skin on. ?Nuts and nut products. ?Chocolate. If you regularly take a diuretic medicine, make sure to eat at least 1 or 2 servings of fruits or vegetables that are high in potassium each day. These include: ?Avocado. ?Banana. ?Kinney, prune, carrot, or tomato juice. ?Baked potato. [...] magnesium, fish oil, or vitamin B6. Take zxkt-sou-ccybeeq and prescription medicines only as told by [...] Casseroles. Pizza. Lasagna. Frozen meals. Potato chips. Indonesian fries. The items listed above may not [...] provider. Document Revised: 01/28/2023 Document Reviewed: 01/28/2023 [employer] Patient Education 2023 [employer]inate. Follow Up Care 07/20/2024 10:51:39 With:NINA LEVY, Madison Crespo, URL Address: [facility] [address] , [place] [address]- When: Unknown [facility] 09-04-2024 Note Patient Education Nephrology [...] ? 8 oz (237 mL) of milk, hxuepfv-aodlgjwrdvcv-ayfrh milk, and calcium-fortifiedfruit juice. Calcium-fortified means that [...] Spinach (cooked), rhubarb, beets, sweet potatoes, and [place] chard. ? Peanuts. ? Potato chips, moroccan fries, and baked potatoes with skin on. ? Nuts and nut products. ? Chocolate. ??? If you regularly take a diuretic medicine, make sure to eat at least 1 or 2 servings of fruits or vegetables that are high in potassium each day. These include: ? Avocado. ? Banana. ? Kinney, prune, carrot, or tomato juice. ? Baked [...] fish oil, or vitamin B6. ??? Take rfxk-wbk-ymbknsl and prescription medicines only as told by your health (more content not included)... [facility] 08-08-2024 History of Present illness Narrative Subjective [...] CPAP 2009 Peripheral neuropathy Peripheral vascular disease (CMS/HCC) Personal history of medical treatment 2010 infection in foot surgery Polyneuropathy Polyradiculopathy Radiculopathy, lumbosacral region Right bundle branch block Rotator cuff tear, left Skin ulcer of toe of left foot with fat layer exposed (CMS/HCC) Type 2 diabetes mellitus with diabetic nephropathy, without long-term current use of insulin ([facility]/HCC) Type 2 diabetes mellitus with diabetic neuropathic arthropathy, without long-term current use of insulin ([facility]/HCC) Type II diabetes mellitus with neurological manifestations not at goal ([facility]/HCC) Ulcer of left foot with fat layer exposed ([facility]/HCC) Weakness Past Surgical History: Procedure Laterality Date [...] of 1 of the Coflex devices., [facility]day [facility] ROTATOR CUFF REPAIR Left 2000 anterior stabilization [...] Review Audit Reviewed by Taisha Gore MA (Clinical Social Work Aide) on 08/08/24 at 1240 Medication Order Taking? Sig Documenting Provider Last Dose Status allopurinol (Zyloprim) 300 MG tablet [id number] No Take 1 tablet (300 mg) by mouth Daily Khoa Bowles MD Taking Active aspirin 81 MG EC tablet [id number] No Take 81 mg by mouth in the morning. Historical Provider, Taking Active biotin 33754 MCG tablet [id number] No 1 (one) time each day at the same time. Historical Provider, Taking Active dapagliflozin (Farxiga) 10 MG [id number] No Take 1 tablet (10 mg) by mouth Daily Khoa Bowles MD Taking Active doxycycline (Monodox) 100 MG capsule [id number] No Take 1 capsule (100 mg) by mouth in the morning. Khoa Bowles MD Taking Active fenofibrate (Triglide) 160 MG tablet [id number] No Take 1 tablet (160 mg) by mouth Daily Khoa Bowles MD Taking Active ferrous sulfate 325 (65 Fe) MG tablet [id number] No Take 325 mg by mouth in the morning. Take with meals. Karli ProviderMD Taking Active Flomax 0.4 MG 24 hr capsule [id number] No Take 0.4 mg by mouth in the evening. Karli ProviderMD Taking Active gabapentin (Neurontin) 300 MG capsule [id number] Take 1 capsule (300 mg) by mouth in the morning and 1 capsule (300 mg) before bedtime. SUSANNA Arndt Active hydroCHLOROthiazide (HYDRODiuril) 25 MG tablet [id number] No Take 1 tablet (25 mg) by mouth in the evening Khoa Bowles MD Taking Active insulin glargine (Basaglar KwikPen) 100 UNIT/ML pen [id number] No Inject bid, sliding blood glucose scale with the coverage: <70, zero and eat. 70-150, 10 units. 151-200, 14 units. 201-250, 16 units. 251-300, 18 units. >300, 20 units Khoa Bowles MD Taking Active losartan-hydroCHLOROthiazide (Hyzaar) 100-12.5 MG tablet [id number] No Take 1 tablet by mouth Daily Khoa Bowles MD Taking Active Lutein 20 MG tablet [id number] No 1 (one) time each day at the same time. Karli Boston MD Taking Active metFORMIN (Glucophage) 1000 MG tablet [id number] No Take 1 tablet (1,000 mg) by mouth in the morning and 1 tablet (1,000 mg) in the evening. Take with meals. Khoa Bowles MD Taking Active metoprolol tartrate (Lopressor) 50 MG tablet [id number] No Take 1 tablet (50 mg) by mouth in the morning and 1 tablet (50 mg) before bedtime. Khoa Bowles MD Taking Active pen needle 32G x 6 mm [facility] [place] [place] [id number] No Use for Injection subcutaneous twice daily Khoa Bowles MD Taking Active sodium bicarbonate 650 MG tablet [id number] No Take 3 tablets by mouth in the morning and 3 tablets before bedtime. Historical Provider, Taking Active spironolactone (Aldactone) 25 MG tablet [id number] No 2 tablets in Am and 1 [...] triceps, wrist extensors, wrist extensors, wrist flexor, ball point splitter strength 5/5. LUE Strength deltoid, biceps, triceps, wrist extensors, wrist extensors, wrist flexor, ball point splitter strength 5/5. RLE Strength illopsoas, quadriceps, tibialis [...] or worsening symptoms documented in this encounter [facility] 07-24-2024 Telephone encounter Note RX corrected and sent [facility] 07-24-2024 Miscellaneous Notes RX corrected and [...] he tried to refill the needles at [facility], they told him that they show the 100 is a 90 day supply for him and will not refill it. He is asking if Dr. Bowles can send an order to [facility] stating how often he test to show how many needles a 90 day supply is. He states he is out of needles and can not check his sugar. documented in this encounter [facility] 07-24-2024 Telephone encounter Note He said he is talking about his pen needles. They are wrote for only one box of 100 for 90 days but he does his medication twice daily and so he needs 200. I am not sure how to fix this script. I pended what I believe would be right if you can look it over please [facility] 07-24-2024 Telephone encounter Note January, I suspect he is talking about testing with the lens sets and test strips. Can you confirm this is what he needs. If so okay to send a prescription for 200 with directions of tests twice a day and as needed. [facility] 07-24-2024 Telephone encounter Note Abelino called, his last fill of needles was for 100. He states that he is suppose to test twice a day. When he tried to refill the needles at [facility], they told him that they show the 100 is a 90 day supply for him and will not refill it. He is asking if Dr. Bowles can send an order to [facility] stating how often he test to show how many needles a 90 day supply is. He states he is out of needles and can not check his sugar. [facility] 12-09-2023 History of Present illness Narrative [...] in the morning., Disp: , Rfl: biotin 14886 MCG tablet, 1 (one) time each day [...] of 1 of the Coflex devices., Uday, [facility] ROTATOR CUFF REPAIR Left 2000 anterior stabilization [...] Mood normal. Behavior: Behavior normal. MODIFIER: Q9, 43417, 04181 Assessment/Plan Diagnoses and all orders for this visit: Type II or unspecified type diabetes mellitus with neurological manifestations, not 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) (CMS/[facility]) Onychomycosis Hallux limitus, left Acquired keratoderma Conservative [...] Tiffanie Enrique DPM documented in this encounter [facility] 07-21-2023 Hospital Discharge instructions Patient Education [...] include: ?8 oz (237 mL) of milk, pozghoc-qcbpoqxpoupk-gipiv milk, and calcium-fortifiedfruit juice. Calcium-fortified means that [...] ?Spinach (cooked), rhubarb, beets, sweet potatoes, and [place] chard. ?Peanuts. ?Potato chips, moroccan fries, and baked potatoes with skin on. ?Nuts and nut products. ?Chocolate. If you regularly take a diuretic medicine, make sure to eat at least 1 or 2 servings of fruits or vegetables that are high in potassium each day. These include: ?Avocado. ?Banana. ?Kinney, prune, carrot, or tomato juice. ?Baked potato. [...] magnesium, fish oil, or vitamin B6. Take ppgv-ilr-kpshbev and prescription medicines only as told by [...] Casseroles. Pizza. Lasagna. Frozen meals. Potato chips. Indonesian fries. The items listed above may not [...] provider. Document Revised: 06/29/2022 Document Reviewed: 06/29/2022 [employer] Patient Education 2022 [employer]. Follow Up Care 05/19/2023 09:51:24 With:NINA LEVY, Madison R, URL Address: [facility] [address] , [place] [address]- When: Unknown [facility] 01-05-2023 Hospital Discharge instructions Patient Education [...] include: ?Spinach. ?Rhubarb. ?Beets. ?Potato chips and moroccan fries. ?Nuts. If you regularly take a diuretic medicine, make sure to eat at least 1 2 fruits or vegetables high in potassium each day. These include: ?Avocado. ?Banana. ?Kinney, prune, carrot, or tomato juice. ?Baked potato. [...] Casseroles. Pizza. Lasagna. Frozen meals. Potato chips. Indonesian fries. Summary You can reduce your risk [...] 02/12/2012 Document Revised: 02/07/2020 Document Reviewed: 09/28/2017 [employer] Patient Education 2019 [employer]inate. Follow Up Care 10/07/2022 10:58:19 With:NINA LEVY, Madison Crespo, MELANIE Address: [facility] [address] , [place] [address]- When: Unknown [facility] 09-21-2022 Hospital Discharge instructions Patient Education [...] urethra. Follow these instructions at home: Take bbgy-vla-kvrwghu and prescription medicines only as told by [...] 10/18/2006 Document Revised: 09/12/2019 Document Reviewed: 11/22/2017 [employer] Patient Education 2020 [employer]. Follow Up Care 12/22/2021 13:03:04 With:Madison BEACH MD, URL Address: [facility] [address], [place] [address]- When: Unknown [facility] Evaluation + Plan note No data available for this section [facility] Evaluation + Plan note Future Appointments Appointment Date:07/26/2024 01:45:00 PM Scheduled Provider:Madison BEACH MD Location:[facility] Appointment Type:URO Office Visit [facility] Evaluation + Plan note Future Appointments Appointment Date:09/04/2024 12:45:00 PM Scheduled Provider:Madison BEACH MD Location:[facility] Appointment Type:URO Office Visit [facility] Evaluation + Plan note Future Appointments Appointment Date:12/18/2024 10:45:00 AM Scheduled Provider:Madison BEACH MD Location:[facility] Appointment Type:URO Office Visit Diagnostic Tests PendingPSA Total 09/04/24 [facility] Evaluation + Plan note Future Appointments Appointment Date:03/19/2025 11:45:00 AM Scheduled Provider:Madison BEACH MD [facility] App[facility] Type:URO Office Visit Diagnostic Tests PendingPSA Total 12/18/24 [facility] Evaluation note No assessment inform ation available [facility] Evaluation note Diagnosis Type II or unspecified type diabetes mellitus with neurological manifestations, not 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) (CMS/[facility])- Primary Type II or unspecified type diabetes [...] 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) ([facility])- Primary Type II or unspecified type diabetes mellitus with neurological manifestations, not stated as uncontrolled Onychomycosis Dermatophytosis of nail Acquired keratoderma [facility] Diagnosis Diabetic nephropathy associated with type 2 diabetes mellitus (HCC) ([facility]) [facility] Diagnosis Diabetic neuropathic arthropathy ([facility]) Type II or unspecified type diabetes mellitus with neurological manifestations, not stated as uncontrolled [facility] Diagnosis Type 2 diabetes mellitus with hyperglycemia, without long-term current use of insulin ([facility]) [facility] Diagnosis Diabetic neuropathic arthropathy ([facility])- Primary Type II or unspecified type diabetes mellitus with neurological manifestations, not stated as uncontrolled Polyneuropathy due to type 2 diabetes mellitus ([facility]) Primary hypertension ([facility]) Unspecified essential hypertension Peripheral venous insufficiency Unspecified venous (peripheral) insufficiency Diabetic nephropathy associated with type 2 diabetes mellitus (HCC) ([facility]) Type 2 diabetes mellitus with hyperglycemia, without long-term current use of insulin ([facility]) Mixed hyperlipidemia ([facility]) Mixed hyperlipidemia Essential hypertension ([facility]) Unspecified essential hypertension Lymphedema of both lower extremities Chronic cellulitis Cellulitis and abscess of unspecified site [facility] Diagnosis Other alf (current) drug therapy [facility] Diagnosis Fall from standing, subsequent encounter Skin tear of upper extremity Bleeding Unspecified hemorrhage Encounter for examination following treatment at hospital [facility] No data available for this section [facility] Progress note No data available for this section [facility] Chief Complaint and Reason for Visit [...] Documents on File Type Date Recorded 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 Expl anation Power of Sand Polisher 03/29/2024 1:37 PM 07-10 POA Advance Directives [...] Bowles MD Primary Care Provider Active Yaquelin Hampton PA-C Attending Provider Active Athletic Gear Custodian Relationship Specialty Start Date End Date Khoa Bowles MD [address] [place] [phone] PCP - General Family Medicine 04/08/23 Madison Beach MD [address] [place] [address] Referring Physician Urology 12/09/23 Tiffanie Enrique DPWei [address] [place] [address] Referring Physician Podiatry 12/09/23 Athletic Gear Custodian Relationship Specialty Start Date End Date Khoa Bowles MD [address] [place] [phone] PCP - General Family Medicine 04/08/23 Khoa Bowles MD [address] [place] [address] PCP - ACO Reach 12/31/23 Madison Beach MD [address] [place] [address] Referring Physician Urology 12/09/23 Tiffanie Enrique DPM [address] [place] [address] Referring Physician Podiatry 12/09/23 Athletic Gear Custodian Relationship Specialty Start Date End Date Khoa Bowles MD [address] [place] [phone] PCP - General Family Medicine 04/08/23 Khoa Bowles MD [address] [place] [address] PCP - ACO Reach 12/31/23 Madison Beach MD [address] [place] [address] Referring Physician Urology 12/09/23 Tiffanie Enrique DPM [address] [place] [address] Referring Physician Podiatry 12/09/23 Athletic Gear Custodian Relationship Specialty Start Date End Date Khoa Bowles MD [address] [place] [address] PCP - General Family Medicine 04/08/23 Khoa Bowles MD [address] [place] [address] (Fax) PCP - ACO Reach 12/31/23 Madison Beach MD [address] [place] [address] Referring Physician Urology 12/09/23 Tiffanie Enrique DPM [address] [place], [place] [phone] Referring Physician Podiatry 12/09/23 Athletic Gear Custodian Relationship Specialty Start Date End Date Khoa Bowles MD (Fax) PCP - General Family Medicine 04/08/23 Khoa Bowles MD [address] [place] [address] (Fax) PCP - ACO Reach 12/31/23 Madison Beach MD [address] [place] [address] Referring Physician Urology 12/09/23 Tiffanie Enrique DPM [address] [place] [address] Referring Physician Podiatry 12/09/23 Athletic Gear Custodian Relationship Specialty Start Date End Date Khoa Bowles MD [address] [address] (Fax) PCP - ACO Reach 12/31/23 Madison Beach MD [address] [place] [address] Referring Physician Urology 12/09/23 Tiffanie Enrique DPM [address] [place], [place] [id number] Referring Physician Podiatry 12/09/23 Athletic Gear Custodian Relationship Specialty Start Date End Date Khoa Bowles MD [address] [place] [address] (Fax) PCP - ACO Reach 12/31/23 Madison Beach MD [address] [place] [address] Referring Physician Urology 12/09/23 Tiffanie Enrique DPM [address] [place] [address] Referring Physician Podiatry 12/09/23 Athletic Gear Custodian Relationship Specialty Start Date End Date Khoa Bowles MD [address] [phone] (Fax) PCP - ACO Reach 12/31/23 Madison Beach MD [address] [place] [address] Referring Physician Urology 12/09/23 Tiffanie Enrique DPM [address] [place] [address] Referring Physician Podiatry 12/09/23 Athletic Gear Custodian Relationship Specialty Start Date End Date Khoa Bowles MD [address] [place] [phone] PCP - General Family Medicine 04/08/23 Khoa Bowles MD [address] [place] [address] PCP - ACO Reach 12/31/23 Madison Beach MD [address] [place] [address] Referring Physician Urology 12/09/23 Tiffanie Enrique DPM [address] [place] [address] Referring Physician Podiatry 12/09/23 Athletic Gear Custodian Relationship Specialty Start Date End Date Khoa Bowles MD [address] [place] [address] PCP - ACO Reach 12/31/23 Madison Beach MD [address] [place] [address] Referring Physician Urology 12/09/23 Tiffanie Enrique DPM [address] [place] [address] Referring Physician Podiatry 12/09/23 Athletic Gear Custodian Relationship Specialty Start Date End Date Khoa Bowles MD [address] [place] [address] (Fax) PCP - ACO Reach 12/31/23 Madison Beach MD [address] [place] [address] Referring Physician Urology 12/09/23 Tiffanie Enrique DPM [address] [place] [address] Referring Physician Podiatry 12/09/23 Athletic Gear Custodian Relationship Specialty Start Date End Date Khoa Bowles MD [address] [place] [address] [address] (Fax) PCP - ACO Reach 12/31/23 Madison Beach MD [address] [place] [address] Referring Physician Urology 12/09/23 Tiffanie Enrique DPM [address] [place] [address] Referring Physician Podiatry 12/09/23 Athletic Gear Custodian Relationship Specialty Start Date End Date Khoa Bowles MD [address] [address] PCP - ACO Reach 12/31/23 Madison Beach MD [address] [place] [address] Referring Physician Urology 12/09/23 Tiffanie Enrique DPM [address] [place] [address] Referring Physician Podiatry 12/09/23 Athletic Gear Custodian Relationship Specialty Start Date End Date Khoa Bowles MD [address] [place] [address] (Fax) PCP - ACO Reach 12/31/23 Khoa Bowles MD [address] [place] [address] (Fax) PCP - General Family Medicine 12/27/24 Madison Beach MD [address] [place] [address] Referring Physician Urology 12/09/23 Tiffanie Enrique DPM [address] [place] [address] Referring Physician Podiatry 12/09/23 Athletic Gear Custodian Relationship Specialty Start Date End Date Khoa Bowles MD [address] [place] [address] (Fax) PCP - ACO Reach 12/31/23 Khoa Bowles MD [address] [place] [address] (Fax) PCP - General Family Medicine 12/27/24 Madison Beach MD [address] [place] [address] Referring Physician Urology 12/09/23 Tiffanie Enrique DPM [address] [place] [address] Referring Physician Podiatry 12/09/23 Athletic Gear Custodian Relationship Specialty Start Date End Date Khoa Bowles MD [address] [place] [address] (Fax) PCP - ACO Reach 12/31/23 Khoa Bowles MD [address] [place] [address] PCP - General Family Medicine 12/27/24 Madison Beach MD [address] [place] [address] Referring Physician Urology 12/09/23 Tiffanie Enrique DPM [address] [place] [address] Referring Physician Podiatry 12/09/23 Athletic Gear Custodian Relationship Specialty Start Date End Date Khoa Bowles MD [address] [place] [address] PCP - ACO Reach 12/31/23 Khoa Bowles MD [address] [place] [address] PCP - General Family Medicine 12/27/24 Madison Beach MD [address] [place] [address] Referring Physician Urology 12/09/23 Tiffanie Enrique DPM [address] [place] [address] Referring Physician Podiatry 12/09/23 Larissa Leavitt, CORDELL Registered Nurse Family Medicine 02/13/25 Athletic Gear Custodian Relationship Specialty Start Date End Date Khoa Bowles MD [address] [place] [address] PCP - ACO Reach 12/31/23 Khoa Bowles MD 112 [facility] [address] [place] [address] PCP - General Family Medicine 12/27/24 Madison Beach MD [address] [place] [address] Referring Physician Urology 12/09/23 Tiffanie Enrique DPM [address] [place] [address] Referring Physician Podiatry 12/09/23 Larissa Leavitt, CORDELL Registered Nurse Family Medicine 02/13/25 (unrecognized sect ion and content) No Status Records FoundNo Status Records FoundNo Status Records FoundNo Status Records FoundNo Status Records FoundNo Status Records Found INFORMATION SOURCE (unrecogn ized section and content) DATE CREATED AUTHOR 02/14/2023 [facility] DATE CREATED AUTHOR AUTHOR'S ORGANIZ ATION 02/29/2024 [facility] DATE CREATED AUTHOR AUTHOR'S ORGANIZ ATION 05/21/2024 [facility] DATE CREATED AUTHOR AUTHOR'S ORGANIZ ATION 05/31/2024 [facility] DATE CREATED AUTHOR AUTHOR'S ORGANIZ ATION 12/19/2024 [facility] DATE CREATED AUTHOR AUTHOR'S ORGANIZ ATION 02/20/2025 [facility] EPIC Reason for Visit (unrecogniz [...] Reason Onset Date Comments Care Coordination 07/24/2024 Reason Comments Med Change Request Reason Comments Nail care Manuel Balderas is a 74 y.o. male who presents for DM Foot Care. Patient relates he has followed up with Dr. Cortez, had CT scan of Left ankle, Brace is being made. PCP: Dr. Bowles 10/31/2024, A1C: 6.6, BS: 131, SS: 12 Reason Comments Follow-up FOR RECORDS PERTAINING TO PATIENTS WHO ARE [...] BE BASED ON THE PRIMARY CLINICAL RECORDS. [employer] provides no warranty or guarantee of the accuracy or completeness of information in this document.
== END 2025-03-15 09:46 | disposition home or self-care (01) ==
LOC: LAB 09:48
PROVIDERS: PCP Family Medicine; Visit Provider Urology
DX: R97.20 Elevated prostate specific antigen [PSA] (principal); Z80.42 Family history of malignant neoplasm of prostate
CPT/HCPCS: 36415; 84153

== ENCOUNTER 2025-04-24 10:38 | Outpatient (OUT) | payer MEDICARE, SELFPAY ==
--- OUTSIDE RECORDS SUMMARY | 2025-04-24 10:45 | XMS_ITS | Clinical Summary ---
Author Organization [facility] Address [address] [place] [id number] Care Team Providers Care Field Care Coordinator Name Role Phone Unavailable Primary Care Provider Unavailabl e Allergies Active Allergy Reactions Criticality Noted Date Comments Meperidine (Pf) Other: See Comments 02/01/2014 shakes Medications Losartan-Albion chlorothiazide 100-12.5 mg per tablet Take 1 tablet by mouth once daily. Active metoprolol tartrate, short acting, 50 mg tablet Take 50 mg by mouth twice daily. Active gemfibrozil 600 mg tablet Take 600 mg by mouth twice daily before meals. Active doxycycline hyclate 100 mg capsule Take 100 mg by mouth once daily. Active glipiZIDE 10 mg tablet Take 10 mg by mouth twice daily before meals. Active CITRIC ACID/SODIUM CITRATE (CYTRA-2 ORAL) Take 1 oz by mouth three times daily. Active oxybutynin 5 mg tablet Take 5 mg by mouth three times daily. Active MTH/ME BLUE/SOD PHOS/PHEN/HYOS (URIBEL ORAL) Take 1 capsule by mouth once daily. Active FERROUS SULFATE, DRIED (IRON, DRIED, ORAL) Take 65 mg by mouth once daily. Active MULTIVIT &MINERALS/FERR OUS FUM (MULTI VITAMIN ORAL) Take 1 tablet by mouth once daily. Active oxyCODONE-acet aminophen (PERCOCET) 5-325 mg tablet Take 1 tablet by mouth every 4 hours as needed. Do not exceed 3 grams of acetaminophen in 24hours from all sources. 30 tablet 0 4 Active docusate sodium 100 mg capsule Take 1 capsule by mouth twice daily. Stop taking if you have frequent loose stool or diarrhea. 60 capsule 0 4 Active tamsulosin (FLOMAX) 0.4 mg cp24 Take 1 capsule by mouth daily at bedtime. 20 capsule 0 4 Active tamsulosin 0.4 mg cp24 Take 1 capsule by mouth daily at bedtime. 90 capsule 4 4 Active hydrochlorothi azide 25 mg tabletIndicati ons:Calculus of kidney,Hyperca lciuria Take 1 tablet by mouth once daily. hctz 25 mg once daily, approximately 12 hr after his losartin/hctz 90 tablet 3 4 Active allopurinol 100 mg tabletIndicati ons:Calculus of kidney,Hyperur icuria Take 1 tablet by mouth once daily. 90 tablet 3 4 Active Active Problems Problem Noted Date Diagnosed Date Calculus of kidney 02/01/2014 Kidney stone 02/01/2014 Hyperlipidemia 02/01/2014 Unspecified essential hypertension 02/01/2014 BMI 40.0-44.9, adult 02/01/2014 Sleep apnea 02/01/2014 Flank pain 02/01/2014 Immunizations Immunization Administration Dates Next Due pneumococcal polysaccharide (PPV23) vaccine, 23 valent (PNEUMOVAX 23) 02/22/2012 Social History Tobacco Use Types Packs/Day Years Used Date Smoking Tobacco: Never Smokeless Tobacco: Never Alcohol Use Standard Drinks/Week Comments No 0 (1 standard drink = 0.6 oz pur e alcohol) Sex and Gender Information Value Date Recorded Sex Assigned at Not on file Legal Sex Male 10:25 AM EST Gender Identity Not on file Sexual Orientation Not on file 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 Not on file Not on file Last Filed Vital Signs Vital Sign Reading Time Taken Comments Blood Pressure 133/77 03/06/2014 10:30 AM EDT Pulse 64 03/06/2014 10:30 AM EDT Temperature 37.4 C (99.4 F) 03/06/2014 10:30 AM EDT Respiratory Rate 18 02/23/2014 1:25 PM EDT Oxygen Saturation 94% 02/23/2014 1:25 PM EDT Inhaled Oxygen Concentration - - Weight 149.1 kg (328 lb 12.8 oz) 2013 10:30 AM EDT Height 185.4 cm (6' 1 ) 03/06/2014 10:3 0 AM EDT Body Mass Index 43.38 03/06/2014 10:30 AM EDT Plan of Treatment Health Maintenance Due Date Last Done Comments Anxiety Screening 1968 Depression Screening 1968 Hepatitis C Screening 1968 DTaP,Tdap,Td Vaccine (1 - Tdap) [address] Colonography 1995 Cologuard (FIT-DNA) 1995 Colonoscopy 1995 Colorectal Cancer Screening 1995 Fecal Occult Blood 1995 Sigmoidoscopy 1995 Shingrix Vaccine (1 of 2) 2000 Pneumococcal Vaccine: 50+ (2 of 2 - PCV) 02/21/2013 02/22/2012 Diabetes Screening 02/22/2017 02/22/2014, 0 02/21/2014, 02/01/2014 Covid-19 Vaccine (1 - 2023- season) 2024 Advance Directive Discussion 11/01/2024 RSV Vaccine (1 - 1-dose 75+ series) 2025 Influenza Vaccine (Season Ended) 2025 Medical Devices Implanted Type Area Boring Machine Operator Horizontal Device Identifier Shelf Expiration Date Model / Serial / Lot [id number]-[id number] Implant - [id number] Implanted:Qty: 1 on 02/21/2014 at [facility] Implant [employer] [id number] / / Description:[id number] PERCUFLEX STENT Procedures Procedure Name Priority Date/Time Associated Diagnosis Comments BASIC METABOLIC PANEL Routine 02/22/2014 12:44 AM EDT from Last 3 Months or Most Recently Relevant to Health Maintenance Results * (ABNORMAL) BASIC METABOLIC PNL (02/22/2014 12:44 AM EDT) Glucose 101(H) 65 - 100 mg/dL [facility] BUN 22 10 - 25 mg/dL [facility] Creatinine 1.12 0.70 - 1.40 mg/dL [facility] Sodium 139 135 - 146 mmol/L [facility] Potassium 3.8 3.5 - 5.0 mmol/L [facility] Chloride 104 98 - 110 mmol/L [facility] CO2 23 23 - 32 mmol/L [facility] Anion Gap 12 0 - 15 mmol/L [facility] Calcium 8.5 8.5 - 10.5 mg/dL [facility] Blood specimen (specimen) BLOOD SPECIMEN / Unknown 02/22/2014 12:44 AM EDT 02/22/2014 12:45 AM EDT us Burke Clemens MD LABORATORY Final Result [facility] [address] [place] [address] from Last 3 Months or Most Recently Relevant to Health Maintenance Insurance BLUE CARD PPO OOS Advance Directives Documents on File Type Date Recorded Patient Hse Specialist Expl anation Advance Directive(s) 02/09/2014 11:20 AM
--- OUTSIDE RECORDS SUMMARY | 2025-04-24 10:45 | XMS_ITS | Encounter Summary ---
Author Organization [facility] Address [address] [place] [address] Care Team Providers Care Brushing Operator Name Role Phone Khoa Godinez MD Primary Care Provider + [phone] Jude Beach MD Unavailable [phone] Tiffanie Smyth DPM Unavailable [phone] Khoa Godinez MD Unavailable [phone] Khoa Godinez MD Primary Care Provider [phone] Larissa Leavitt RN Unavailable [phone] Reason for Visit * Reason Onset Date Comments Med Refill 02/10/2024 Encounter Details Date Type Department Care Team (Late st Contact Info) Description 02/10/2024 Refill [facility] [address] [facility] [place] [address] Khoa Godinez MD [address] [facility] [address] [place] [address] (Fax) Lymphedema of both lower extremities Social History Tobacco Use Types Packs/Day Years Used Date Smoking Tobacco: Never Alcohol Use Standard Drinks/Week Comments Never 0 (1 standard drink = 0.6 oz pur e alcohol) Caffeine intake: none PHQ-2 Answer Date Recorded Patient Health Questionnaire-2 Score 0 11/04/2023 Sex and Gender Information Value Date Recorded Sex Assigned at Not on file Legal Sex Male 7:09 PM EDT Gender Identity Not on file Sexual Orientation Not on file Occupation Industry Job Start Date Job End Date Retired Not on file Not on file Not on file documented as of this encounter Plan of Treatment Upcoming Encounters Date Type Department Care Team (Late st Contact Info) Description 04/26/2025 3:00 PM EDT Office Visit [facility] [address] [facility] 100 [place] [address] Khoa Godinez MD [address] [address] (Fax) 05/07/2025 11:00 AM EDT Office Visit [facility] [address] [facility] 100 [place] [address] Khoa Godinez MD [address] [address] (Fax) 07/12/2025 1:00 PM EDT Procedure Visit [facility] [address] [place] [address] Tiffanie Smyth, DPM [address] [place] [address] documented as of this encounter Visit Diagnoses Diagnosis Lymphedema of both lower extremities documented in this encounter Care Teams Brushing Operator Relationship Specialty Start Date End Date Khoa Godinez MD (Fax) PCP - General Family Medicine 04/08/23 09/12/24 Khoa Godinez MD [address] [address] (Fax) PCP - ACO Reach 12/31/23 Khoa Godinez MD [address] [address] (Fax) PCP - General Family Medicine 12/27/24 Jude Beach MD [address] [place] [address] Referring Physician Urology 12/09/23 Tiffanie Smyth DPM [address] [place] [address] Referring Physician Podiatry 12/09/23 Larissa Leavitt, CORDELL [address] [place] [address] Registered Nurse Family Medicine 02/13/25 documented as of this encounter
--- OUTSIDE RECORDS SUMMARY | 2025-04-24 10:45 | XMS_ITS | Encounter Summary ---
Author Organization [facility] Address [address] [place] [address] Care Team Providers Care Culinary Assistant Name Role Phone Khoa Godinez MD Primary Care Provider + [phone] Jude Beach MD Unavailable [phone] Tiffanie Smyth DPM Unavailable [phone] Khoa Godinez MD Unavailable [phone] Khoa Godinez MD Primary Care Provider [phone] Larissa Leavitt RN Unavailable [phone] Encounter Details Date Type Department Care Team (Late Contact Info) Description 02/21/2024 Abstract [facility] [address] [facility] [place] [address] Khoa Godinez MD 112 [facility] 100 [place] [address] (Fax) Social History Tobacco Use Types Packs/Day Years [...] [facility] [address] [place] [address] Khoa Godinez MD [address] [place] [address] (Fax) 05/07/2025 11:00 AM EDT Office Visit [facility] [address] [facility] 100 [place] [address] Khoa Godinez MD [address] [place] [address] (Fax) 07/12/2025 1:00 PM EDT Procedure Visit [facility] [address] [place] [address] Tiffanie Smyth, DPM [address] [place], [place] [address] documented as of this encounter Visit Diagnoses Not on filedocumented in this encounter Care Teams Culinary Assistant Relationship Specialty Start Date End Date Khoa Godinez MD (Fax) PCP - General Family Medicine 04/08/23 09/12/24 Khoa Godinez MD [address] [address] (Fax) PCP - ACO Reach 12/31/23 Khoa Godinez MD [address] [place] [address] (Fax) PCP - General Family Medicine 12/27/24 Jude Beach MD [address] [place] [address] Referring Physician Urology 12/09/23 Tiffanie Smyth, DPM [address] [place] [address] Referring Physician Podiatry 12/09/23 Larissa Leavitt, RN [address] [place] [address] Registered Nurse Family Medicine 02/13/25 documented as of this encounter
--- OUTSIDE RECORDS SUMMARY | 2025-04-24 10:45 | XMS_ITS | Encounter Summary ---
Author Organization [employer] Address [id number] [address] [place] [address] Care Team Providers Care Detective Supervisor Name Role Phone Khoa Godinez MD Primary Care Provider [phone] Encounter Details Date Type Department Care Team (Late st Contact Info) Description 05/11/2024 Telephone [facility] [address] [place] [address] Callie Mora MD [address], [facility] [address] [place] [address] Social History Tobacco Use Types Packs/Day Years Used Date Smoking Tobacco: Never Assessed Childcare Answer Date Recorded Childcare Unknown 04/12/2019 Employment Answer Date Recorded Employment Unknown 04/12/2019 Hunger Screening Answer Date Recorded Within the past 12 months we worried whether our food would run out before we got money to buy more. Never True 2024 Within the past 12 months th e food we bought just didn't last and we didn't have money to get more. Never True 2024 Purpose - Life Answer Date Recorded Purpose and direction in life Unknown Sex and Gender Information Value Date Recorded Sex Assigned at Not on file Legal Sex Male 12:03 PM EDT Gender Identity Not on file Sexual Orientation Not on file documented as of this encounter Miscellaneous Notes * Telephone Encounter - Rosalia Kenyon - 05/11/2024 3:15 PM EDT Patient's is calling to find out when he will be able to get back on his daily aspirin and if we would be able to give them a RX for compression stockings. They can be reached at [phone] Thank you * Telephone Encounter - Dianne Anderson LPN - 05/11/2024 3:15 PM EDT Patient has been informed he may continue to take the aspirin 81mg and to hold day of his procedure. Compression stockings have also been ordered. Patient agrees with this plan documented in this encounter Plan of Treatment Upcoming Encounters Date Type Department Care Team (Late st Contact Info) Description 06/21/2025 9:50 AM EDT Office Visit [facility] [place] [address] [place] [address] Callie Mora MD [address], [address] [address] documented as of this encounter Visit Diagnoses Not on filedocumented in this encounter Care Teams Detective Supervisor Relationship Specialty Start Date End Date Khoa Godinez MD PCP - General 12/09/17 documented as of this encounter
--- OUTSIDE RECORDS SUMMARY | 2025-04-24 10:45 | XMS_ITS | Encounter Summary ---
Author Organization [facility] Address [address] [place] [address] Care Team Providers Care Ramp Service Agent Name Role Phone Khoa Godinez MD Primary Care Provider + [phone] Jude Beach MD Unavailable [phone] Tiffanie Smyth DPM Unavailable [phone] Khoa Godinez MD Unavailable [phone] Khoa Godinez MD Primary Care Provider [phone] Larissa Leavitt RN Unavailable [phone] Encounter Details Date Type Department Care Team ([facility] Contact Info) Description 03/22/2024 Orders Only [facility] [address] [facility] [address] Callie Mora MD [address] [phone] Social History Tobacco Use Types Packs/Day Years [...] Encounters Date Type Department Care Team (Late Contact Info) Description 04/26/2025 3:00 PM EDT Office Visit [facility] [address] [place] [address] Khoa Godinez MD [address] [place] [address] (Fax) 05/07/2025 11:00 AM EDT Office Visit [facility] [address] [place] [address] Khoa Godinez MD [address] [place] [address] (Fax) 07/12/2025 1:00 PM EDT Procedure Visit [facility] [address] [place] [address] Tiffanie Smyth, DPM [address] [place], [place] [address] documented as of this encounter Procedures Procedure Name Priority Date/Time Associated Diagnosis Comments US VENOUS REFLUX STUDY ROSE MARY Routine 03/20/2024 9:35 AM EDT documented in this encounter Results * US VENOUS REFLUX STUDY ROSE MARY (03/20/2024 9:35 AM EDT) Anatomical Region Laterality Modality Radiographic Shirlene ging Callie Mora MD IMG XR PROCEDURES Final Resu lt documented in this encounter Visit Diagnoses Not on filedocumented in this encounter Care Teams Ramp Service Agent Relationship Specialty Start Date End Date Khoa Godinez MD (Fax) PCP - General Family Medicine 04/08/23 09/12/24 Khoa Godinez MD [address] [place] [address] (Fax) PCP - ACO Reach 12/31/23 Khoa Godinez MD [address] [place] [address] PCP - General Family Medicine 12/27/24 Jude Beach MD [address] [place] [address] Referring Physician Urology 12/09/23 Tiffanie Smyth DPM [facility] [place] [address] Referring Physician Podiatry 12/09/23 Larissa Leavitt, RN [address] [place] [address] Registered Nurse Family Medicine 02/13/25 documented as of this encounter
--- OUTSIDE RECORDS SUMMARY | 2025-04-24 10:45 | XMS_ITS | Encounter Summary ---
Author Organization [facility] Address [address] [place] [address] Care Team Providers Care Flight Test Engineer Name Role Phone Khoa Godinez MD Primary Care Provider + [phone] Jude Beach MD Unavailable [phone] Tiffanie Smyth DPM Unavailable [phone] Khoa Godinez MD Unavailable [phone] Khoa Godinez MD Primary Care Provider [phone] Larissa Leavitt RN Unavailable [phone] Encounter Details Date Type Department Care Team ([facility] Contact Info) Description 02/08/2024 Abstract [facility] [address] [place] [address] Daron Saenz MD [address] [place] [address] Social History Tobacco Use Types Packs/Day Years [...] FM [address] [place] [address] Khoa Godinez MD [address] [place] [address] (Fax) 05/07/2025 11:00 AM EDT Office Visit [facility] [address] [facility] 100 [place] [address] Khoa Godinez MD [address] [place] [address] (Fax) 07/12/2025 1:00 PM EDT Procedure Visit [facility] [address] [place] [address] Tiffanie Smyth DPM [address] [place] [address] documented as of this encounter Visit Diagnoses Not on filedocumented in this encounter Care Teams Flight Test Engineer Relationship Specialty Start Date End Date Khoa Godinez MD (Fax) PCP - General Family Medicine 04/08/23 09/12/24 Khoa Godinez MD [address] [address] (Fax) PCP - ACO Reach 12/31/23 Khoa Godinez MD [address] [place] [address] (Fax) PCP - General Family Medicine 12/27/24 Jude Beach MD [address] [place] [address] Referring Physician Urology 12/09/23 Tiffanie Smyth, DPM [address] [place] [address] Referring Physician Podiatry 12/09/23 Larissa Leavitt, RN [address] [place] [address] Registered Nurse Family Medicine 02/13/25 documented as of this encounter
--- OUTSIDE RECORDS SUMMARY | 2025-04-24 10:45 | XMS_ITS | Encounter Summary ---
Author Organization [facility] Address [address] [place] [address] Care Team Providers Care Spring Inspector Name Role Phone Khoa Godinez MD Primary Care Provider + [phone] Jude Beach MD Unavailable +[phone] Tiffanie Smyth DPM Unavailable [phone] Khoa Godinez MD Unavailable [phone] Khoa Godinez MD Primary Care Provider + [phone] Larissa Leavitt RN Unavailable [phone] Encounter Details Date Type Department Care Team (Late st Contact Info) Description 02/08/2024 Abstract [facility] [address] [facility] [place] [address] Daron Saenz MD [address] [place] [address] Social History Tobacco Use Types Packs/Day Years [...] [facility] [address] [facility] 100 [place] [address] Khoa Godinez MD [address] [place] [address] (Fax) 05/07/2025 11:00 AM EDT Office Visit [facility] [address] [facility] 100 [place] [address] Khoa Godinez MD [address] [place] [address] (Fax) 07/12/2025 1:00 PM EDT Procedure Visit [facility] [address] [place] [address] Tiffanie Smyth, DPM [address] [place] [address] documented as of this encounter Visit Diagnoses Not on filedocumented in this encounter Care Teams Spring Inspector Relationship Specialty Start Date End Date Khoa Godinez MD (Fax) PCP - General Family Medicine 04/08/23 09/12/24 Khoa Godinez MD [address] [address] (Fax) PCP - ACO Reach 12/31/23 Khoa Godinez MD [address] [place] [address] (Fax) PCP - General Family Medicine 12/27/24 Jude Beach MD 290 [place] [address] Referring Physician Urology 12/09/23 Tiffanie Smyth, DPM [address] [place] [address] Referring Physician Podiatry 12/09/23 Larissa Leavitt, RN [address] [place] [address] Registered Nurse Family Medicine 02/13/25 documented as of this encounter
--- OUTSIDE RECORDS SUMMARY | 2025-04-24 10:45 | XMS_ITS | Encounter Summary ---
Author Organization [facility] Address [address] [place] [address] Care Team Providers Care Glazing Department Supervisor Name Role Phone Khoa Godinez MD Primary Care Provider + [phone] Jude Beach MD Unavailable +[phone] Tiffanie Smyth DPM Unavailable [phone] Khoa Godinez MD Unavailable +[phone] Khoa Godinez MD Primary Care Provider +[phone] Larissa Leavitt RN Unavailable [phone] Encounter Details Date Type Department Care Team (Late Contact Info) Description 11/22/2023 Abstract [facility] [address] [facility] [place] [address] Khoa Godinez MD 112 [facility] 100 [place] [address] (Fax) Social History Tobacco Use [...] FM [address] [place] [address] [place] [address] Khoa Godinez MD [address] [place] [address] (Fax) 05/07/2025 11:00 AM EDT Office Visit [facility] [address] [facility] 100 [place] [address] Khoa Godinez MD [address] [place] [address] (Fax) 07/12/2025 1:00 PM EDT Procedure Visit [facility] [address] [place] [address] Tiffanie Smyth, DPM [address] [place], [place] [address] documented as of this encounter Visit Diagnoses Not on filedocumented in this encounter Care Teams Glazing Department Supervisor Relationship Specialty Start Date End Date Khoa Godinez MD (Fax) PCP - General Family Medicine 04/08/23 09/12/24 Khoa Godinez MD [address] [address] (Fax) PCP - ACO Reach 12/31/23 Khoa Godinez MD [address] [place] [address] (Fax) PCP - General Family Medicine 12/27/24 Jude Beach MD 290 [place] [address] Referring Physician Urology 12/09/23 Tiffanie Smyth, DPM [address] [place] [address] Referring Physician Podiatry 12/09/23 Larissa Leavitt, RN [address] [place] [address] Registered Nurse Family Medicine 02/13/25 documented as of this encounter
--- OUTSIDE RECORDS SUMMARY | 2025-04-24 10:45 | XMS_ITS | Encounter Summary ---
Author Organization [facility] Address [address] [place] [address] Care Team Providers Care Event Operations Manager Name Role Phone Khoa Godinez MD Primary Care Provider + [phone] Jude Beach MD Unavailable +[phone] Tiffanie Smyth DPM Unavailable [phone] Khoa Godinez MD Unavailable [phone] Khoa Godinez MD Primary Care Provider + [phone] Larissa Leavitt RN Unavailable [phone] Reason for Visit * Reason Comments Med Refill Encounter Details Date Type Department Care Team (Late st Contact Info) Description 05/01/2024 Refill [facility] [address] [place] [address] Khoa Godinez MD [address] [facility] [address] [place], [place] [address] (Fax) Essential hypertension ; Type 2 diabetes mellitus with hyperglycemia, without long-term current use of insulin (HCC); Mixed hyperlipidemia Social History Tobacco Use Types Packs/Day Years Used Date Smoking Tobacco: Never Alcohol Use Standard Drinks/Week Comments Never 0 (1 standard drink = 0.6 oz pur e alcohol) Caffeine intake: none PHQ-2 Answer Date Recorded Patient Health Questionnaire-2 Score 0 04/03/2024 Sex and Gender Information Value Date Recorded [...] FM [address] [place] [address] [place] [address] Khoa Godinez MD [address] [place] [address] (Fax) 05/07/2025 11:00 AM EDT Office Visit [facility] [address] [place] [address] [place] [address] Khoa Godinez MD [address] [place] [address] (Fax) 07/12/2025 1:00 PM EDT Procedure Visit [facility] [address] [place] [address] Tiffanie Smyth DPM [address] [place] [address] documented as of this encounter Visit Diagnoses Diagnosis Essential hypertension Unspecified essential hypertension Type 2 diabetes mellitus with hyperglycemia, without long-term current use of insulin (HCC) Mixed hyperlipidemia Mixed hyperlipidemia documented in this encounter Additional Health Concerns Assessment Noted Time PHQ-9 Depression Total Score: 2 04/03/20 24 11:00 AM EDT documented as of this encounter Care Teams Event Operations Manager Relationship Specialty Start Date End Date Khoa Godinez MD (Fax) PCP - General Family Medicine 04/08/23 09/12/24 Khoa Godinez MD [address] [place] [address] (Fax) PCP - ACO Reach 12/31/23 Khoa Godinez MD [address] [place] [address] PCP - General Family Medicine 12/27/24 Jude Beach MD [address] [place] [address] Referring Physician Urology 12/09/23 Tiffanie Smyth DPM [address] [place], [place] [address] Referring Physician Podiatry 12/09/23 Larissa Leavitt, CORDELL [address] [place] [address] Registered Nurse Family Medicine 02/13/25 documented as of this encounter
--- OUTSIDE RECORDS SUMMARY | 2025-04-24 10:45 | XMS_ITS | Encounter Summary ---
Author Organization [facility] Address [address] [place] [address] Care Team Providers Care It Program Engagement Director Name Role Phone Khoa Godinez MD Primary Care Provider + [phone] Jude Beach MD Unavailable [phone] Tiffanie Smyth DPM Unavailable [phone] Khoa Godinez MD Unavailable [phone] Khoa Godinez MD Primary Care Provider +[phone] Larissa Leavitt RN Unavailable [phone] Encounter Details Date Type Department Care Team (Late st Contact Info) Description 12/22/2023 Abstract [facility] [address] [facility] [place] [address] Yaquelin Lakhani MD [address] [place] [id number] Social History Tobacco Use Types Packs/Day Years [...] FM [address] [place] [address] [place] [address] Khoa Godinez MD [address] [place] [address] (Fax) 05/07/2025 11:00 AM EDT Office Visit [facility] [address] [facility] 100 [place] [address] Khoa Godinez MD [address] [place] [address] (Fax) 07/12/2025 1:00 PM EDT Procedure Visit [facility] [address] [place] [address] Tiffanie Smyth DPM [address] [place] [address] documented as of this encounter Visit Diagnoses Not on filedocumented in this encounter Care Teams It Program Engagement Director Relationship Specialty Start Date End Date Khoa Godinez MD (Fax) PCP - General Family Medicine 04/08/23 09/12/24 Khoa Godinez MD [address] [address] (Fax) PCP - ACO Reach 12/31/23 Khoa Godinez MD [address] [place] [address] (Fax) PCP - General Family Medicine 12/27/24 Jude Beach MD [address] [place] [address] Referring Physician Urology 12/09/23 Tiffanie Smyth DPM [address] [place] [address] Referring Physician Podiatry 12/09/23 Larissa Leavitt, RN [address] [place] [address] Registered Nurse Family Medicine 02/13/25 documented as of this encounter
--- OUTSIDE RECORDS SUMMARY | 2025-04-24 10:45 | XMS_ITS | Encounter Summary ---
Author Organization [facility] Address [address] [place] [address] Care Team Providers Care Winemaker Name Role Phone Khoa Godinez MD Primary Care Provider + [phone] Jude Beach MD Unavailable [phone] Tiffanie Smyth DPM Unavailable [phone] Khoa Godinez MD Unavailable [phone] Khoa Godinez MD Primary Care Provider +[phone] Larissa Leavitt RN Unavailable [phone] Encounter Details Date Type Department Care Team ([facility] Contact Info) Description 02/08/2024 Abstract [facility] [address] [place] [address] Daron Saenz MD [address] [place] [address] Social History Tobacco Use Types Packs/Day Years [...] FM [address] [place] [address] [place] [address] Khoa Godinez MD [address] [place] [address] (Fax) 05/07/2025 11:00 AM EDT Office Visit [facility] [address] [facility] 100 [place] [address] Khoa Godinez MD [address] [place] [address] (Fax) 07/12/2025 1:00 PM EDT Procedure Visit [facility] [address] [place] [address] Tiffanie Smyth DPM [address] [place] [address] documented as of this encounter Visit Diagnoses Not on filedocumented in this encounter Care Teams Winemaker Relationship Specialty Start Date End Date Khoa Godinez MD (Fax) PCP - General Family Medicine 04/08/23 09/12/24 Khoa Godinez MD [address] [address] (Fax) PCP - ACO Reach 12/31/23 Khoa Godinez MD [address] [place] [address] (Fax) PCP - General Family Medicine 12/27/24 Jude Beach MD [address] [place] [address] Referring Physician Urology 12/09/23 Tiffanie Smyth, DPM [address] [place] [address] Referring Physician Podiatry 12/09/23 Larissa Leavitt, RN [address] [place] [address] Registered Nurse Family Medicine 02/13/25 documented as of this encounter
--- OUTSIDE RECORDS SUMMARY | 2025-04-24 10:45 | XMS_ITS | Encounter Summary ---
Author Organization [facility] Address [address] [place] [address] Care Team Providers Care Chief Operator Hydroformer Name Role Phone Khoa Godinez MD Primary Care Provider + [phone] Jude Beach MD Unavailable [phone] Tiffanie Smyth DPM Unavailable [phone] Khoa Godinez MD Unavailable [phone] Khoa Godinez MD Primary Care Provider +[phone] Larissa Leavitt RN Unavailable [phone] Encounter Details Date Type Department Care Team (Late Contact Info) Description 02/21/2024 Abstract [facility] [address] [facility] [place] [address] Khoa Godinez MD 112 [facility] 100 [place] [address] (Fax) Social History Tobacco Use [...] FM [address] [place] [place] [address] Khoa Godinez MD [address] [place] [address] (Fax) 05/07/2025 11:00 AM EDT Office Visit [facility] [address] [facility] 100 [place] [address] Khoa Godinez MD [address] [place] [address] (Fax) 07/12/2025 1:00 PM EDT Procedure Visit [facility] [address] [place] [address] Tiffanie Smyth, DPM [address] [place], [place] [address] documented as of this encounter Visit Diagnoses Not on filedocumented in this encounter Care Teams Chief Operator Hydroformer Relationship Specialty Start Date End Date Khoa Godinez MD (Fax) PCP - General Family Medicine 04/08/23 09/12/24 Khoa Godinez MD [address] [address] (Fax) PCP - ACO Reach 12/31/23 Khoa Godinez MD [address] [place] [address] (Fax) PCP - General Family Medicine 12/27/24 Jude Beach MD [address] [place] [address] Referring Physician Urology 12/09/23 Tiffanie Smyth, DPM [address] [place] [address] Referring Physician Podiatry 12/09/23 Larissa Leavitt, RN [address] [place] [address] Registered Nurse Family Medicine 02/13/25 documented as of this encounter
--- OUTSIDE RECORDS SUMMARY | 2025-04-24 10:45 | XMS_ITS | Encounter Summary ---
Author Organization [facility] Address [address] [place] [address] Care Team Providers Care Inseam Trimming Machine Operator Name Role Phone Khoa Godinez MD Primary Care Provider + [phone] Jude Beach MD Unavailable [phone] Tiffanie Smyth DPM Unavailable [phone] Khoa Godinez MD Unavailable [phone] Khoa Godinez MD Primary Care Provider +[phone] Larissa Leavitt RN Unavailable [phone] Reason for Visit * Reason Comments Med Refill Encounter Details Date Type Department Care Team (Late st Contact Info) Description 01/27/2024 Refill [facility] [address] [facility] [place] [address] Khoa Godinez MD 112 [facility] [address] [place], [place] [address] (Fax) Lymphedema of both lower extremities Social [...] [facility] [address] [facility] 100 [place] [address] Khoa Godinez MD [address] [place] [address] (Fax) 05/07/2025 11:00 AM EDT Office Visit [facility] [address] [facility] 100 [place] [address] Khoa Godinez MD [address] [address] (Fax) 07/12/2025 1:00 PM EDT Procedure Visit [facility] [address] [place] [address] Tiffanie Smyth, DPM [address] [place] [address] documented as of this encounter Visit Diagnoses Diagnosis Lymphedema of both lower extremities documented in this encounter Care Teams Inseam Trimming Machine Operator Relationship Specialty Start Date End Date Khoa Godinez MD (Fax) PCP - General Family Medicine 04/08/23 09/12/24 Khoa Godinez MD [address] [address] (Fax) PCP - ACO Reach 12/31/23 Khoa Godinez MD [address] [place] [address] (Fax) PCP - General Family Medicine 12/27/24 Jude Beach MD [address] [place] [address] Referring Physician Urology 12/09/23 Tiffanie Smyth DPM [address] [place] [address] Referring Physician Podiatry 12/09/23 Larissa Leavitt, RN [address] [place] [address] Registered Nurse Family Medicine 02/13/25 documented as of this encounter
--- OUTSIDE RECORDS SUMMARY | 2025-04-24 10:45 | XMS_ITS | Encounter Summary ---
Author Organization [facility] Address [address] [place] [address] Care Team Providers Care Butter Liquefier Name Role Phone Khoa Godinez MD Primary Care Provider + [phone] Jude Beach MD Unavailable [phone] Tiffanie Smyth DPM Unavailable [phone] Khoa Godinez MD Unavailable [phone] Khoa Godinez MD Primary Care Provider +[phone] Larissa Leavitt RN Unavailable [phone] Reason for Visit * Reason Comments Med Refill Encounter Details Date Type Department Care Team (Late st Contact Info) Description 01/26/2024 Refill [facility] [address] [place] [address] Khoa Godinez MD 112 [facility] [address] [place] [address] (Fax) Type 2 diabetes mellitus with hyperglycemia, without long-term current use of insulin (HCC) Social History Tobacco Use Types Packs/Day Years [...] [address] [place] [place] [address] Khoa Godinez MD [address] [place] [address] (Fax) 05/07/2025 11:00 AM EDT Office Visit [facility] [address] [place] [place] [address] Khoa Godinez MD [address] [place] [address] (Fax) 07/12/2025 1:00 PM EDT Procedure Visit [facility] [address] [place] [address] Tiffanie Smyth, DPM [address] [place] [address] documented as of this encounter Visit Diagnoses Diagnosis Type 2 diabetes mellitus with hyperglycemia, without long-term current use of insulin (HCC) documented in this encounter Care Teams Butter Liquefier Relationship Specialty Start Date End Date Khoa Godinez MD (Fax) PCP - General Family Medicine 04/08/23 09/12/24 Khoa Godinez MD [address] [place] [address] (Fax) PCP - ACO Reach 12/31/23 Khoa Godinez MD [address] [place] [address] (Fax) PCP - General Family Medicine 12/27/24 Jude Beach MD [address] [place] [address] Referring Physician Urology 12/09/23 Tiffanie Smyth DPM [address] [place] [address] Referring Physician Podiatry 12/09/23 Larissa Leavitt, RN [address] [place] [address] Registered Nurse Family Medicine 02/13/25 documented as of this encounter
--- OUTSIDE RECORDS SUMMARY | 2025-04-24 10:45 | XMS_ITS | Encounter Summary ---
Author Organization [facility] Address [address] [place] [address] Care Team Providers Care Landscape Designer Name Role Phone Khoa Godinez MD Primary Care Provider + [phone] Jude Beach MD Unavailable [phone] Tiffanie Smyth DPM Unavailable [phone] Khoa Godinez MD Unavailable [phone] Khoa Godinez MD Primary Care Provider [phone] Larissa Leavitt RN Unavailable [phone] Encounter Details Date Type Department Care Team (Late st Contact Info) Description 02/27/2024 Orders Only [facility] [address] [facility] [place] [address] Khoa Godinez MD 112 [facility] 100 [place] [address] (Fax) Social History Tobacco Use [...] FM [address] [place] [place] [address] Khoa Godinez MD [address] [place] [address] (Fax) 05/07/2025 11:00 AM EDT Office Visit [facility] [address] [facility] 100 [place] [address] Khoa Godinez MD [address] [place] [address] (Fax) 07/12/2025 1:00 PM EDT Procedure Visit [facility] [address] [place] [address] Tiffanie Smyth, DPM [address] [place], [place] [address] documented as of this encounter Visit Diagnoses Not on filedocumented in this encounter Care Teams Landscape Designer Relationship Specialty Start Date End Date Khoa Godinez MD (Fax) PCP - General Family Medicine 04/08/23 09/12/24 Khoa Godinez MD [address] [address] (Fax) PCP - ACO Reach 12/31/23 Khoa Godinez MD [address] [place] [address] (Fax) PCP - General Family Medicine 12/27/24 Jude Beach MD [address] [place] [address] Referring Physician Urology 12/09/23 Tiffanie Smyth, DPM [address] [place] [address] Referring Physician Podiatry 12/09/23 Larissa Leavitt, RN [address] [place] [address] Registered Nurse Family Medicine 02/13/25 documented as of this encounter
--- OUTSIDE RECORDS SUMMARY | 2025-04-24 10:45 | XMS_ITS | Encounter Summary ---
Author Organization [facility] Address [address] [place] [address] Care Team Providers Care Metal Finisher Name Role Phone Khoa Godinez MD Primary Care Provider + [phone] Jude Beach MD Unavailable [phone] Tiffanie Smyth DPM Unavailable [phone] Khoa Godinez MD Unavailable [phone] Khoa Godinez MD Primary Care Provider + [phone] Larissa Leavitt RN Unavailable [phone] Encounter Details Date Type Department Care Team (Late Contact Info) Description 02/08/2024 Orders Only [facility] [address] [place] [address] Calvin Wallace, DO [address] [place] [address] Social History Tobacco Use Types Packs/Day Years [...] [address] [place] [place] [address] Khoa Godinez MD [address] [place] [address] (Fax) 05/07/2025 11:00 AM EDT Office Visit [facility] [address] [place] [address] Khoa Godinez MD [address] [place] [address] (Fax) 07/12/2025 1:00 PM EDT Procedure Visit [facility] [address] [place] [address] Tiffanie Smyth, DPM [address] [place] [address] documented as of this encounter Procedures Procedure Name Priority Date/Time Associated Diagnosis Comments CT ANGIO ABD/PEL W OR WO CONT* Routine 02/06/2024 8:31 AM EDT ECG 12-LEAD Routine 02/06/2024 8:19 AM EDT documented in this encounter Results * CT ANGIO ABD/PEL W OR WO CONT* (02/06/2024 8:31 AM EDT) Anatomical Region Laterality Modality Radiographic Shirlene ging us Daron Saenz MD IMG XR PROCEDURES Final Result * ECG 12 lead (02/06/2024 8:19 AM EDT) us Calvin Wallace DO ECG ORDERABLES Final Result documented in this encounter Visit Diagnoses Not on filedocumented in this encounter Care Teams Metal Finisher Relationship Specialty Start Date End Date Khoa Godinez MD (Fax) PCP - General Family Medicine 04/08/23 09/12/24 Khoa Godinez MD [address] [place] [address] PCP - ACO Reach 12/31/23 Khoa Godinez MD [address] [place] [address] PCP - General Family Medicine 12/27/24 Jude Beach MD [address] [place] [address] Referring Physician Urology 12/09/23 Tiffanie Smyth DPWei [address] [place] [address] Referring Physician Podiatry 12/09/23 Larissa Leavitt, CORDELL [address] [place] [address] Registered Nurse Family Medicine 02/13/25 documented as of this encounter
--- OUTSIDE RECORDS SUMMARY | 2025-04-24 10:45 | XMS_ITS | Encounter Summary ---
Author Organization [facility] Address [address] [place] [address] Care Team Providers Care Automatic Casting Machine Operator Name Role Phone Khoa Godinez MD Primary Care Provider + [phone] Jude Beach MD Unavailable [phone] Tiffanie Smyth DPM Unavailable [phone] Khoa Godinez MD Unavailable [phone] Khoa Godinez MD Primary Care Provider [phone] Larissa Leavitt RN Unavailable [phone] Encounter Details Date Type Department Care Team (Late Contact Info) Description 03/09/2024 Abstract [facility] [address] [facility] [place] [address] Khoa Godinez MD 112 [facility] 100 [place] [address] (Fax) Social History Tobacco Use [...] FM [address] [place] [place] [address] Khoa Godinez MD [address] [place] [address] (Fax) 05/07/2025 11:00 AM EDT Office Visit [facility] [address] [facility] 100 [place] [address] Khoa Godinez MD [address] [place] [address] (Fax) 07/12/2025 1:00 PM EDT Procedure Visit [facility] [address] [place] [address] Tiffanie Smyth, DPM [address] [place], [place] [address] documented as of this encounter Visit Diagnoses Not on filedocumented in this encounter Care Teams Automatic Casting Machine Operator Relationship Specialty Start Date End Date Khoa Godinez MD (Fax) PCP - General Family Medicine 04/08/23 09/12/24 Khoa Godinez MD [address] [address] (Fax) PCP - ACO Reach 12/31/23 Khoa Godinez MD [address] [place] [address] (Fax) PCP - General Family Medicine 12/27/24 Jude Beach MD [address] [place] [address] Referring Physician Urology 12/09/23 Tiffanie Smyth, DPM [address] [place] [address] Referring Physician Podiatry 12/09/23 Larissa Leavitt, RN [address] [place] [address] Registered Nurse Family Medicine 02/13/25 documented as of this encounter
--- OUTSIDE RECORDS SUMMARY | 2025-04-24 10:45 | XMS_ITS | Encounter Summary ---
Author Organization [facility] Address [address] [place] [address] Care Team Providers Care Emotionally Impaired Teacher Name Role Phone Khoa Bowles MD Primary Care Provider + [phone] Jude Beach MD Unavailable [phone] Tiffanie Smyth DPM Unavailable [phone] Khoa Bowles MD Unavailable [phone] Khoa Bowles MD Primary Care Provider [phone] Larissa Leavitt RN Unavailable [phone] Encounter Details Date Type Department Care Team (Late st Contact Info) Description 03/22/2024 Clinisync Result Encounter [facility] External Department Unsolicited Provider, Generic External Data Social History Tobacco Use Types Packs/Day Years [...] FM [address] [place] [address] Khoa Bowles MD [address] [place] [address] 05/07/2025 11:00 AM EDT Office Visit [facility] [address] [place] [address] Khoa Bowles MD [address] [facility] [address] [place] [address] (Fax) 07/12/2025 1:00 PM EDT Procedure Visit [facility] [address] [address] Tiffanie Smyth, DPM [address] [place], [place] [id number] documented as of this encounter Procedures Procedure Name Priority Date/Time Associated Diagnosis Comments VC EXT VENOUS REFLUX ROSE MARY LMTD 03/22/2024 8:57 AM EDT documented in this encounter Results * VC EXT VENOUS REFLUX ROSE MARY LMTD (03/22/2024 8:57 AM EDT) Anatomical Region Laterality Modality Other 03/22/2024 8:57 AM EDT Narrative 03/22/2024 8:58 [place] [address] Vein Report Signed Patient: MANUEL BALDERAS MR#: [id number] : 1950 Acct:[id number] Age/Sex: 73 / M ADM Date: 03/20/24 Loc: VC Attending Dr: Callie Mora M.D. Ordering Physician: Callie Mora M.D. Date of Service: 03/20/24 Procedure(s): VC EXT Venous Reflux ROSE MARY LMTD Accession Number(s): [id number] cc: KHOA BOWLES ; Callie Mora M.D. Patient Name: MANUEL BALDERAS MR#: [id number] : 1950 Exam Date: 03/20/2024 Ordering Doctor: CALLIE MORA M.D. RADIOLOGY REPORT PROCEDURE: VC EXT VENOUS REFLUX ROSE MARY LMTD COMPARISON: None. INDICATIONS: I83.813 Pain due to varicose veins of bilateral legs TECHNIQUE: Duplex imaging of the lower extremity to assess the deep and superficial venous system for the presence of deep or superficial venous incompetence and to document the location and severity of disease. The study includes evaluation of the great saphenous vein (GSV), anterior accessory saphenous vein (AASV) and small saphenous vein (SSV). Patient scanned in reverse Trendelenburg and standing. FINDINGS: RIGHT LOWER EXTREMITY: Saphenofemoral Junction Reflux: Yes 9.3mm 0.5 sec GSV: Diam (mm) Reflux/ Time (sec) Proximal Thigh 10.7 Yes 0.8 Mid Thigh 5.8 Yes 0.6 Distal Thigh 5.7 Yes 0.5 Prox Calf 6.6 Yes 4.0 Mid Calf 3.8 Yes 0.4 Saphenopopliteal Junction Reflux: 6.1mm Yes 4.3 SSV: Proximal Calf 7.6 Yes 3.8 Mid Calf 3.3 Yes 0.6 AASV: Proximal Thigh 5.8 Yes 1.4 Mid Thigh 3.3 Yes 0.4 Distal Thigh Thrombi: No acute or chronic thrombus. Compressibility: Normal. Flow: Mild deep venous reflux. Preforator: Mid posterior calf 3.6 mm with 1.9s reflux. Tech Note: Complex fluid collection medial popliteal fossa measures 5.6 x 2.8 x 1.4 cm. Calf deep veins not well visualized. Incompetent varicose vein mid posterior calf measures 4.0 mm with 1.5s reflux. Varicose vein distal medial lower leg measures 4.0 mm with 1.2s reflux. 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 Compressibility: Partial compressibility of mid calf GSV. Flow: Mild deep venous reflux. Cabbage Salter: Distal medial lower leg 3.7 mm with 0.8s reflux. Tech Note: Anechoic fluid collection medial popliteal fossa measures 4.2 x 3.4 x 1.7 cm. Thigh extension of left SSV. Incompetent varicose vein mid medial lower leg measures 4.5 mm with 0.6s reflux. Varicose vein distal medial/anterior lower leg measures 4.0 mm with 0.9s relfux. CONCLUSION: 1. Moderate to severe bilateral great saphenous vein venous insufficiency with dilatation and saphenofemoral junction reflux 2. Moderate to severe right small saphenous vein venous insufficiency with dilatation and saphenopopliteal junction reflux 3. Mild left small saphenous vein venous insufficiency without dilatation 4. Zoxv-[id number] right anterior accessory saphenous vein venous insufficiency with borderline dilatation 5. Mild bilateral deep vein reflux 6. Bilateral popliteal fossa collections likely representing popliteal cysts 7. Bilateral incompetent varicose veins 1. Dictated by: Mikie Latham MD on 03/22/2024 at 08:54 Approved by: Mikie Latham MD on 03/22/2024 at 08:57 Dictated By: Mikie Latham M.D. Signed By: 03/22/24 0858 DD/ 0857 TD/TT: Computer Forensics Investigator: Procedure Note Radiology, Radiologist, - 03/22/2024 [place] [address] Vein Report Signed Patient: MANUEL BALDERAS JMR#: [id number] : 1950Acct:[id number] Age/Sex: 73 / MADM Date: 03/20/24 Loc: VC Attending Dr: Callie Mora M.D. Ordering Physician: Callie Mora M.D. Date of Service: 03/20/24 Procedure(s): VC EXT Venous Reflux ROSE MARY LMTD Accession Number(s): [id number] cc: KHOA BOWLES ; Callie Mora M.D. Patient Name: MANUEL BALDERAS MR#: [id number] : 1950 Exam Date: 03/20/2024 Ordering Doctor: CALLIE MORA M.D. RADIOLOGY REPORT PROCEDURE: VC EXT VENOUS REFLUX ROSE MARY LMTD COMPARISON: None. INDICATIONS: I83.813 Pain due to varicose veins of bilateral legs TECHNIQUE: Duplex imaging of the lower extremity to assess the deepand superficial venous system for the presence of deep or superficial venous incompetence and to document the location and severity of disease. Thestudy includes evaluation of the great saphenous vein (GSV), anterior accessory saphenous vein (AASV) and small saphenous vein (SSV). Patient scanned in reverse Trendelenburg and standing. FINDINGS: RIGHT LOWER EXTREMITY: Saphenofemoral Junction Reflux: Yes 9.3mm 0.5 sec GSV: Diam (mm) Reflux/ Time (sec) Proximal Thigh 10.7 Yes 0.8 Mid Thigh 5.8 Yes 0.6 Distal Thigh 5.7 Yes 0.5 Prox Calf 6.6 Yes 4.0 Mid Calf 3.8 Yes 0.4 Saphenopopliteal Junction Reflux: 6.1mm Yes 4.3 SSV: Proximal Calf 7.6 Yes 3.8 Mid Calf 3.3 Yes 0.6 AASV: Proximal Thigh 5.8 Yes 1.4 Mid Thigh 3.3 Yes 0.4 Distal Thigh Thrombi: No acute or chronic thrombus. Compressibility: Normal. Flow: Mild deep venous reflux. Preforator: Mid posterior calf 3.6 mm with 1.9s reflux. Tech Note: Complex fluid collection medial popliteal fossa measures 5.6 x2.8 x 1.4 cm. Calf deep veins not well visualized. Incompetent varicose veinmid posterior calf measures 4.0 mm with 1.5s reflux. Varicose vein distalmedial lower leg measures 4.0 mm with 1.2s reflux. 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 Compressibility: Partial compressibility of mid calf GSV. Flow: Mild deep venous reflux. Cabbage Salter: Distal medial lower leg 3.7 mm with 0.8s reflux. Tech Note: Anechoic fluid collection medial popliteal fossa measures 4.2 x3.4 x 1.7 cm. Thigh extension of left SSV. Incompetent varicose vein midmedial lower leg measures 4.5 mm with 0.6s reflux. Varicose vein distal medial/anterior lower leg measures 4.0 mm with 0.9s relfux. CONCLUSION: 1. Moderate to severe bilateral great saphenous vein venous insufficiencywith dilatation and saphenofemoral junction reflux 2. Moderate to severe right small saphenous vein venous insufficiency with dilatation and saphenopopliteal junction reflux 3. Mild left small saphenous vein venous insufficiency without dilatation 4. Nutj-[id number] right anterior accessory saphenous vein venous insufficiency with borderline dilatation 5. Mild bilateral deep vein reflux 6. Bilateral popliteal fossa collections likely representing poplitealcysts 7. Bilateral incompetent varicose veins 1. Dictated by: Mikie Latham MD on 03/22/2024 at 08:54 Approved by: Mikie Latham MD on 03/22/2024 at 08:57 Dictated By: Mikie Latham M.D. Signed By:03/22/24 0858 DD/ 0857 TD/TT: Computer Forensics Investigator: Generic External Data Provider [facility] Final Result documented in this encounter Visit Diagnoses Not on filedocumented in this encounter Care Teams Emotionally Impaired Teacher Relationship Specialty Start Date End Date Khoa Bowles MD (Fax) PCP - General Family Medicine 04/08/23 09/12/24 Khoa Bowles MD [address] [address] (Fax) PCP - ACO Reach 12/31/23 Khoa Bowles MD [address] [address] (Fax) PCP - General Family Medicine 12/27/24 Jude Beach MD [address] [place] [address] Referring Physician Urology 12/09/23 Tiffanie Smyth DPM [address] [place] [address] Referring Physician Podiatry 12/09/23 Larissa Leavitt, RN [address] [place] [address] Registered Nurse Family Medicine 02/13/25 documented as of this encounter
--- OUTSIDE RECORDS SUMMARY | 2025-04-24 10:45 | XMS_ITS | Encounter Summary ---
Author Organization [facility] Address [address] [place] [address] Care Team Providers Care Mechanic/Welder Name Role Phone Khoa Godinez MD Primary Care Provider + [phone] Jude Beach MD Unavailable [phone] Tiffanie Smyth DPM Unavailable [phone] Khoa Godinez MD Unavailable [phone] Khoa Godinez MD Primary Care Provider [phone] Larissa Leavitt RN Unavailable [phone] Encounter Details Date Type Department Care Team (Late st Contact Info) Description 02/25/2024 Orders Only [facility] [address] [facility] [place] [address] [place] [address] [place] [address] Social History Tobacco Use Types Packs/Day Years [...] [address] [place] [address] Khoa Godinez MD [address] [place] [address] (Fax) 05/07/2025 11:00 AM EDT Office Visit [facility] [address] [place] [address] Khoa Godinez MD [address] [place] [address] (Fax) 07/12/2025 1:00 PM EDT Procedure Visit [facility] [address] [place] [address] Tiffanie Smyth, DPM [address] [place] [address] documented as of this encounter Procedures Procedure Name Priority Date/Time Associated Diagnosis Comments DIABETIC RETINOPATHY SCREENING - OU - BOTH EYES Routine 02/25/2024 9:23 AM EDT documented in this encounter Results * Diabetic Retinopathy Screening - OU - Both Eyes (02/25/2024 9:23 AM EDT) Anatomical Region Laterality Modality Head Other Rasheed Truong MD OPHTH PHOTOGRAP[employer] Final Result documented in this encounter Visit Diagnoses Not on filedocumented in this encounter Care Teams Mechanic/Welder Relationship Specialty Start Date End Date Khoa Godinez MD (Fax) PCP - General Family Medicine 04/08/23 09/12/24 Khoa Godinez MD [address] [place] [address] (Fax) PCP - ACO Reach 12/31/23 Khoa Godinez MD 112 [facility] [address] [place] [address] PCP - General Family Medicine 12/27/24 Jude Beach MD [address] [place] [address] Referring Physician Urology 12/09/23 Tiffanie Smyth DPM [address] [place] [address] Referring Physician Podiatry 12/09/23 Larissa Leavitt, RN [address] [place], [place] [id number] Registered Nurse Family Medicine 02/13/25 documented as of this encounter
--- OUTSIDE RECORDS SUMMARY | 2025-04-24 10:45 | XMS_ITS | Encounter Summary ---
Author Organization [facility] Address [address] [place] [address] Care Team Providers Care Back Pad Inspector Name Role Phone Khoa Godinez MD Primary Care Provider + [phone] Jude Beach MD Unavailable [phone] Tiffanie Smyth DPM Unavailable [phone] Khoa Godinez MD Unavailable [phone] Khoa Godinez MD Primary Care Provider [phone] Larissa Leavitt RN Unavailable [phone] Reason for Visit * Reason Onset Date Comments Med Refill 03/21/2024 Encounter Details Date Type Department Care Team (Late st Contact Info) Description 03/21/2024 Refill [facility] [address] [place] [address] Khoa Godinez MD 112 [facility] 100 [place] [address] (Fax) Type 2 diabetes mellitus [...] [address] [place] [address] Khoa Godinez MD [address] [place] [address] (Fax) 05/07/2025 11:00 AM EDT Office Visit [facility] [address] [place] [address] Khoa Godinez MD [address] [place] [address] (Fax) 07/12/2025 1:00 PM EDT Procedure Visit [facility] [address] [place] [address] Tiffanie Smyth, DPM [address] [place] [address] documented as of this encounter Visit Diagnoses Diagnosis Type 2 diabetes mellitus with hyperglycemia, without long-term current use of insulin (HCC) documented in this encounter Care Teams Back Pad Inspector Relationship Specialty Start Date End Date Khoa Godinez MD (Fax) PCP - General Family Medicine 04/08/23 09/12/24 Khoa Godinez MD [address] [place] [address] (Fax) PCP - ACO Reach 12/31/23 Khoa Godinez MD [address] [place] [address] (Fax) PCP - General Family Medicine 12/27/24 Jude Beach MD [address] [place] [address] Referring Physician Urology 12/09/23 Tiffanie Smyth DPM [address] [facility] [place] [address] Referring Physician Podiatry 12/09/23 Lairssa Leavitt, CORDELL [address] [place] [address] Registered Nurse Family Medicine 02/13/25 documented as of this encounter
--- OUTSIDE RECORDS SUMMARY | 2025-04-24 10:45 | XMS_ITS ---
Author Organization [facility] Address [address] [facility] [place] [address] Care Team Providers Care Circuit Judge Name Role Phone Jude Beach MD Unavailable [phone] Tiffanie Smyth DPM Unavailable [phone] Khoa Godinez MD Unavailable [phone] Khoa Godinez MD Primary Care Provider [phone] Larissa Leavitt RN Unavailable [phone] Chronic Care Management (CCM) Status:Enrolled (Active) Start date:02/13/2025 Enrollment date:02/13/2025 Enrollment reason:Referred by provider Overview Please assess for Care Management needs. 02/13/25, 3:02 PM - Larissa Leavitt RN- Patient gives verbal consent to be enrolled in CCM Program and understands there could be a bill for this service. CCM Bill No Case Team Name Relationship Phone Larissa Leavitt RN(Responsible Staff) Registere d Nurse [phone] Continued Care and Services Coordination
--- OUTSIDE RECORDS SUMMARY | 2025-04-24 10:45 | XMS_ITS | Encounter Summary ---
Author Organization [facility] Address [address] [place] [address] Care Team Providers Care Cap Jewel Plate Assembler Name Role Phone Khoa Godinez MD Primary Care Provider + [phone] Jude Beach MD Unavailable [phone] Tiffanie Smyth DPM Unavailable [phone] Khoa Godinez MD Unavailable [phone] Khoa Godinez MD Primary Care Provider [phone] Larissa Leavitt RN Unavailable [phone] Encounter Details Date Type Department Care Team (Late st Contact Info) Description 02/09/2024 Abstract [facility] [address] [facility] [place] [address] Daron Saenz MD [address] [place] [address] Social History Tobacco Use Types Packs/Day Years [...] [facility] [address] [facility] 100 [place] [address] Khoa Godinez MD [address] [place] [address] (Fax) 05/07/2025 11:00 AM EDT Office Visit [facility] [address] [facility] 100 [place] [address] Khoa Godinez MD [address] [place] [address] (Fax) 07/12/2025 1:00 PM EDT Procedure Visit [facility] [address] [place] [address] Tiffanie Smyth, DPM [address] [place] [address] documented as of this encounter Visit Diagnoses Not on filedocumented in this encounter Care Teams Cap Jewel Plate Assembler Relationship Specialty Start Date End Date Khoa Godinez MD (Fax) PCP - General Family Medicine 04/08/23 09/12/24 Khoa Godinez MD [address] [address] (Fax) PCP - ACO Reach 12/31/23 Khoa Godinez MD [address] [place] [address] (Fax) PCP - General Family Medicine 12/27/24 Jude Beach MD [address] [place] [address] Referring Physician Urology 12/09/23 Tiffanie Smyth, DPM [address] [place] [address] Referring Physician Podiatry 12/09/23 Larissa Leavitt, RN [address] [place] [address] Registered Nurse Family Medicine 02/13/25 documented as of this encounter
--- OUTSIDE RECORDS SUMMARY | 2025-04-24 10:45 | XMS_ITS | Encounter Summary ---
Author Organization [facility] Address [address] [place] [address] Care Team Providers Care Comber Setter Name Role Phone Khoa Godinez MD Primary Care Provider + [phone] Jude Beach MD Unavailable [phone] Tiffanie Smyth DPM Unavailable [phone] Khoa Godinez MD Unavailable [phone] Khoa Godinez MD Primary Care Provider + [phone] Larissa Leavitt RN Unavailable [phone] Reason for Visit * Reason Onset Date Comments Med Refill 06/09/2024 Encounter Details Date Type Department Care Team (Late st Contact Info) Description 06/09/2024 Refill [facility] [address] [place] [address] Khoa Godinez MD 112 [facility] [address] [place] [address] (Fax) Type 2 diabetes mellitus with hyperglycemia, [...] [address] [place] [address] Khoa Godinez MD [address] [place] [address] (Fax) 05/07/2025 11:00 AM EDT Office Visit [facility] [address] [place] [address] Khoa Godinez MD [address] [place] [address] (Fax) 07/12/2025 1:00 PM EDT Procedure Visit [facility] [address] [place] [address] Tiffanie Smyth, DPM [address] [place] [address] documented as of this encounter Visit Diagnoses Diagnosis Type 2 diabetes mellitus with hyperglycemia, without long-term current use of insulin (HCC) documented in this encounter Additional Health Concerns Assessment Noted Time PHQ-9 Depression Total Score: 2 04/03/20 24 11:00 AM EDT documented as of this encounter Care Teams Comber Setter Relationship Specialty Start Date End Date Khoa Godinez MD (Fax) PCP - General Family Medicine 04/08/23 09/12/24 Khoa Godinez MD [address] [place] [address] (Fax) PCP - ACO Reach 12/31/23 Khoa Godinez MD [address] [place] [address] PCP - General Family Medicine 12/27/24 Jude Beach MD [address] [place] [id number] Referring Physician Urology 12/09/23 Tiffanie Smyth DPM [address] [place] [address] Referring Physician Podiatry 12/09/23 Larissa Leavitt, RN [address] [place] [address] Registered Nurse Family Medicine 02/13/25 documented as of this encounter
--- OUTSIDE RECORDS SUMMARY | 2025-04-24 10:46 | XMS_ITS | Encounter Summary ---
Author Organization [facility] Address [address] [place] [address] Care Team Providers Care Mandrel Cleaner Name Role Phone Jude Beach MD Unavailable [phone] Tiffanie Smyth DPM Unavailable [phone] Khoa Godinez MD Unavailable [phone] Khoa Godinez MD Primary Care Provider [phone] Larissa Leavitt RN Unavailable Encounter Details Date Type Department Care Team (Late st Contact Info) Description 04/24/2025 Patient Outreach [facility] [address] [place] [place] [address] Larissa Leavitt, CORDELL [address] [facility] [address] [place] [address] Social History Tobacco Use Types Packs/Day Years [...] on file documented as of this encounter Progress Notes * Larissa Leavitt RN - 04/24/2025 9:07 AM EDT Called pt's Jayme, discussed that pt did not have labs completed prior to his appt today so willneed to reschedule this appt. Rescheduled for 02/24 at 3 pm. States pt rarely answers his phone. Discussed with Jayme that Cm will change the primary number to her cell phone. She is agreeable. States half the time pt does not know where his cell phone is at. Discussed that labs can be done at anytime, not fasting labs. Needs to provide a urine. Reports no other needs at this time. Encouraged to call when needs arise documented in this encounter Plan of Treatment Upcoming Encounters Date Type Department Care Team (Late st Contact Info) Description 04/26/2025 3:00 PM EDT Office Visit [facility] [address] [facility] 100 [place] [address] Khoa Godinez MD [address] [place] [address] 05/07/2025 11:00 AM EDT Office Visit [facility] [address] [facility] 100 [place] [address] Khoa Godinez MD [address] [place] [address] 07/12/2025 1:00 PM EDT Procedure Visit [facility] [address] [place] [address] Tiffanie Smyth DPWei [address] [place] [address] documented as of this encounter Visit Diagnoses Diagnosis Type 2 diabetes mellitus with diabetic polyneuropathy, with long-term current use of insulin (HCC)- Primary Primary hypertension Unspecified essential hypertension documented in this encounter Additional Health Concerns Assessment Noted Time PHQ-9 Depression Total Score: 2 04/03/20 24 11:00 AM EDT documented as of this encounter Care Teams Mandrel Cleaner Relationship Specialty Start Date End Date Khoa Godinez MD [address] [place] [address] PCP - ACO Reach 12/31/23 Khoa Godinez MD [address] [place] [address] PCP - General Family Medicine 12/27/24 Jude Beach MD 290 [place] [address] Referring Physician Urology 12/09/23 Tiffanie Smyth DPWei [address] [place] [address] Referring Physician Podiatry 12/09/23 Larissa Leavitt, CORDELL [address] [place], [place] [phone] Registered Nurse Family Medicine 02/13/25 documented as of this encounter
--- OUTSIDE RECORDS SUMMARY | 2025-04-24 10:46 | XMS_ITS | Clinical Summary ---
Author Organization [employer] tem Address [id number] [address] [place] [address] Care Team Providers Care Inspector Fibrous Wallboard Name Role Phone Khoa Godinez MD Primary Care Provider [phone] Allergies Active Allergy Reactions Criticality Noted Date Comments Meperidine 12/09/2017 Medications losartan-hydroch lorothiazide (HYZAAR) 100-12.5 mg per tablet Take 1 tablet by mouth in the morning. Active metoprolol tartrate (LOPRESSOR) 25 mg tablet Take 2 tablets (50 mg total) by mouth in the morning and 2 tablets (50 mg total) before bedtime. Active gemfibrozil (LOPID) 600 mg tablet Take 1 tablet (600 mg total) by mouth in the morning and 1 tablet (600 mg total) in the evening. Take before meals. Active glipiZIDE (GLUCOTROL) 10 mg tablet Take 1 tablet (10 mg total) by mouth in the morning and 1 tablet (10 mg total) in the evening. Take before meals. Active metFORMIN (GLUCOPHAGE) 500 mg tablet Take 1 tablet (500 mg total) by mouth in the morning and 1 tablet (500 mg total) in the evening. Take with meals. Active SODIUM BICARBONATE ORAL Take 650 mg by mouth 3 (three) times a day. Active tamsulosin (FLOMAX) 0.4 mg capsule,extended release 24hr Take 1 capsule (0.4 mg total) by mouth nightly. Active allopurinol (ZYLOPRIM) 300 mg tablet Take 1 tablet (300 mg total) by mouth in the morning. Active hydroCHLOROthiaz abel (HYDRODIURIL) 25 mg tablet Take 1 tablet (25 mg total) by mouth daily. Active gabapentin (NEURONTIN) 400 mg capsule Take 1 capsule (400 mg total) by mouth 3 (three) times a day. Active FA/MV,CA,IRON,MT N/LYCOPENE/LUT (MULTIVITAL ORAL) Take by mouth. Active biotin 10,000 mcg capsule Take by mouth. Active doxycycline (DORYX) 100 MG EC tablet Take 1 tablet (100 mg total) by mouth in the morning and 1 tablet (100 mg total) before bedtime. Active aspirin 81 mg Take 1 tablet (81 mg total) by mouth in the morning. Taking 4 daily. Active aspirin 325 mg tablet Take 1 tablet (325 mg total) by mouth in the morning. Active Active Problems Problem Noted Date Diagnosed Date Varicose veins of bilateral lower extremities wi th pain 03/09/2024 Assessment & Plan (06/01/2024 1:28 PM EDT): Continue compression stockings, leg elevation and walking. Assessment & Plan (05/18/2024 9:43 AM EDT): He is status post left GSV ablation statin and injection sclerotherapy. He is extremely happy with the result. He feels a lot better. He is here to discuss the procedure of the right side that were doing next week. 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 He has been on aspirin. No pain or swelling. I discussed with him if he gets worsening pain or swelling or any new symptoms add like to know so we can repeat the ultrasound. Otherwise we will continue aspirin and will repeat the ultrasound next week. Assessment & Plan (2024 11:41 AM EDT): We will do left GSV ablation and left lower extremity stab phlebectomy with ultrasound-guided injection sclerotherapy. 2 weeks later we will do the right side. We willDo the same operation on the right side about 2 weeks later Assessment & Plan (03/09/2024 10:34 AM EDT): Continue compression stockings. Venous duplex ultrasound. Lipodermatosclerosis of both lower extremities 0 03/09/2024 Assessment & Plan (03/09/2024 10:35 AM EDT): Continue compression stockings. Venous duplex ultrasound. Social History Tobacco Use Types Packs/Day Years Used Date Smoking Tobacco: Unknown Alcohol Use Standard Drinks/Week Comments Defer 0 (1 standard drink = 0.6 oz pur e alcohol) Childcare Answer Date Recorded Childcare Unknown 04/12/2019 Employment Answer Date Recorded Employment Unknown 04/12/2019 Hunger Screening Answer Date Recorded Within the past 12 months we worried whether our food would run out before we got money to buy more. Never True 06/01/2024 Within the past 12 months th e food we bought just didn't last and we didn't have money to get more. Never True 06/01/2024 Purpose - Life Answer Date Recorded Purpose and direction in life Unknown Sex and Gender Information Value Date Recorded Sex Assigned at Not on file Legal Sex Male 12:03 PM EDT Gender Identity Not on file Sexual Orientation Not on file Last Filed Vital Signs Vital Sign Reading Time Taken Comments Blood Pressure 120/68 06/01/2024 10:05 AM EDT Pulse 64 06/01/2024 10:03 AM EDT Temperature - - Respiratory Rate 20 12/09/2017 9:20 PM EST Oxygen Saturation 97% 06/01/2024 10:03 AM EDT Inhaled Oxygen Concentration - - Weight 126.6 kg (279 lb) 06/01/2024 10:03 AM EDT Height 182.9 cm (6') 06/01/2024 10:03 AM EDT Body Mass Index 37.84 06/01/2024 10:03 AM EDT Plan of Treatment Upcoming Encounters Date Type Department Care Team (Late st Contact Info) Description 06/21/2025 9:50 AM EDT Office Visit [facility] [address] [place] [address] Callie Mora MD [address], [address] [address] Health Maintenance Due Date Last Done Comments Depression Screening 1962 DTaP,Tdap and Td Vaccines (1 - Tdap) 1969 Fall Risk Screening 2015 Zoster (Shingles) Vaccine (2 of 3) 10/17/2015 08/22/2015 COVID-19 Vaccine (5 - 2023-2 5 season) 2024 09/09/2022, 09/26/2021, 01/25/2021, Additional history exists Tobacco Screening 06/01/2025 06/01/2024 Influenza Vaccine 07/02/2025 10/14/2023, , 08/22/2021, Additional history exists Medical Devices Not on file Insurance [employer] Care Teams Inspector Fibrous Wallboard Relationship Specialty Start Date End Date Khoa Godinez MD PCP - General 12/09/17
--- OUTSIDE RECORDS SUMMARY | 2025-04-24 10:46 | XMS_ITS | Encounter Summary ---
Author Organization [facility] Address [address] [place] [address] Care Team Providers Care Laminator Printed Circuit Boards Name Role Phone Jude Beach MD Unavailable [phone] Tiffanie Smyth DPM Unavailable [phone] Khoa Godinez MD Unavailable [phone] Khoa Godinez MD Primary Care Provider [phone] Larissa Leavitt RN Unavailable Encounter Details Date Type Department Care Team (Late st Contact Info) Description 04/17/2025 Patient Outreach [facility] [address] [place] [address] Larissa Leavitt, CORDELL [address] [facility] [address] [place] [address] Social History Tobacco Use Types [...] Progress Notes * Larissa Leavitt RN - 04/17/2025 2:45 PM EDT Chart reviewed. Pt has active my chart. Pt has appt with PCP on 04/24 at 11:30 am and [facility] on 05/07 at 11 am. Called pt for monthly monitor call. LM requested call back <April 19, 2025, 11:16 - Larissa Leavitt RN> Called pt, LM, notified that he has appt on 04/24 at 11:30 am. Needs to have A1C and micro (urine) before appt. If done at [facility] it must be done by tomorrow. If done at [facility], do by Wednesday morning. [facility]. Requested call back <April 19, 2025, 11:22 - Larissa Leavitt RN> lab orders faxed to [facility] <April 19, 2025, 16:19 - Larissa Leavitt RN> fax was sent usccessfully Closing encounter no call back * Larissa Leavitt RN - 04/17/2025 2:45 PM EDT Images from the original note were not included. 04/17/2025 Manuel Balderas 1950 [address] [facility] [address] Problem: Med Adherence Goal: Consistently take medications as prescribed Intervention: Discuss barriers to patient's medication routine Description: PAP for medications Intervention: Educate patient on frequency and refill details of meds , Problem: Lifestyle Choices Goal: Learn to Manage Diet Intervention: Provide resources for a balanced and healthy diet , Problem: Blood Pressure Monitoring Goal: Establish Plan for Regular Lab Work Intervention: Track patient LDL and HDL levels Intervention: Review the patient's last urine protein. Discuss need with provider if patient has not had one Intervention: Track patient serum potassium and serum creatinine levels. Discuss need with providerif patient has not had one Intervention: Review patient's last ECHO or EKG. Discuss need with provider if patient has not had one , Problem: Blood Pressure Monitoring Goal: Establish Regular Follow-Ups with PCP Intervention: Determine patient's next PCP visit Intervention: Discuss schedule for PCP visits with patient , Problem: Patient is Hypertensive Goal: Remain At/Below Target Blood Pressure Intervention: Establish normal blood pressure range for patient per PCP recommendation Intervention: Discuss steps to manage BP with patient , Problem: Patient is Hypertensive Goal: Wellness - Improve Physical Activity , and Problem: Hypertension Education Goal: Patient will have sufficient knowledge about Hypertension Intervention: Educate the patient on the disease process of Hypertension Intervention: Educate the patient on signs and symptoms of high and low blood pressure and what to do in each situation documented in this encounter Plan of Treatment Upcoming Encounters Date Type Department Care Team (Late st Contact Info) Description 04/26/2025 3:00 PM EDT Office Visit [facility] [address] [place] [address] Khoa Godinez MD [address] [place] [address] (Fax) 05/07/2025 11:00 AM EDT Office Visit [facility] [address] [facility] [address] [place] [address] Khoa Godinez MD [address] [place] [address] (Fax) 07/12/2025 1:00 PM EDT Procedure [facility] [address] [facility] [place] [address] Tiffanie Smyth, DPM [address] [place] [address] documented as of this encounter Visit Diagnoses Diagnosis Type 2 diabetes mellitus with diabetic polyneuropathy, with long-term current use of insulin (HCC)- Primary Primary hypertension Unspecified essential hypertension documented in this encounter Additional Health Concerns Assessment Noted Time PHQ-9 Depression Total Score: 2 04/03/20 11:00 AM EDT documented as of this encounter Care Teams Laminator Printed Circuit Boards Relationship Specialty Start Date End Date Khoa Godinez MD [address] [place] [address] (Fax) PCP - ACO Reach 12/31/23 Khoa Godinez MD [address] [facility] [address] [place] [address] PCP - General Family Medicine 12/27/24 Jude Beach MD [address] [place] [address] Referring Physician Urology 12/09/23 Tiffanie Smyth DPM [address] [place] [address] Referring Physician Podiatry 12/09/23 Larissa Leavitt, CORDELL [address] [place] [address] Registered Nurse Family Medicine 02/13/25 documented as of this encounter
--- OUTSIDE RECORDS SUMMARY | 2025-04-24 10:46 | XMS_ITS | Encounter Summary ---
Author Organization [facility] Address [address] [place] [address] Care Team Providers Care Hardwood Faller Name Role Phone Jude Beach MD Unavailable [phone] Tiffanie Smyth DPM Unavailable [phone] Khoa Godinez MD Unavailable [phone] Khoa Godinez MD Primary Care Provider [phone] Larissa Leavitt RN Unavailable [phone] Reason for Visit * Reason Comments Med Change Request Encounter Details Date Type Department Care Team (Late st Contact Info) Description 02/10/2025 Refill [facility] [address] [place] [address] Khoa Godinez MD [address] [place], [place] [id number] Type 2 diabetes mellitus with hyperglycemia, without [...] Visit [facility] [address] [facility] 100 [place] [address] Khoa Godinez MD [address] [address] (Fax) 05/07/2025 11:00 AM EDT Office Visit [facility] [address] [facility] 100 [place] [address] Khoa Godinez MD [address] [address] (Fax) 07/12/2025 1:00 PM EDT Procedure Visit [facility] [address] [place] [address] Tiffanie Smyth DPM [address] [place] [address] documented as of this encounter Visit Diagnoses Diagnosis Type 2 diabetes mellitus with hyperglycemia, without long-term current use of insulin (HCC) documented in this encounter Additional Health Concerns Assessment Noted Time PHQ-9 Depression Total Score: 2 04/03/20 24 11:00 AM EDT documented as of this encounter Care Teams Hardwood Faller Relationship Specialty Start Date End Date Khoa Godinez MD [address] [address] (Fax) PCP - ACO Reach 12/31/23 Khoa Godinez MD [address] [address] (Fax) PCP - General Family Medicine 12/27/24 Jude Beach MD [address] [place] [address] Referring Physician Urology 12/09/23 Tiffanie Smyth DPM [address] [place] [address] Referring Physician Podiatry 12/09/23 Larissa Leavitt, RN [address] [place] [address] Registered Nurse Family Medicine 02/13/25 documented as of this encounter
--- OUTSIDE RECORDS SUMMARY | 2025-04-24 10:46 | XMS_ITS | Encounter Summary ---
Author Organization [facility] Address [address] [place] [address] Care Team Providers Care Penetration Tester Name Role Phone Khoa Godinez MD Primary Care Provider + [phone] Jude Beach MD Unavailable [phone] Tiffanie Smyth DPM Unavailable [phone] Khoa Godinez MD Unavailable [phone] Khoa Godinez MD Primary Care Provider [phone] Larissa Leavitt RN Unavailable [phone] Encounter Details Date Type Department Care Team (Late st Contact Info) Description 07/15/2023 Orders Only [facility] [address] [facility] [place] [address] Jude Beach MD [address] [place] [address] Social History Tobacco Use Types Packs/Day Years Used Date Smoking Tobacco: Never Alcohol Use Standard Drinks/Week Comments Never 0 (1 standard drink = 0.6 oz pur e alcohol) Caffeine intake: none Sex and Gender Information Value Date Recorded [...] [address] [place] [address] Khoa Godinez MD [address] [place] [address] (Fax) 05/07/2025 11:00 AM EDT Office Visit [facility] [address] [facility] [address] [place] [address] Khoa Godinez MD [address] [place] [address] (Fax) 07/12/2025 1:00 PM EDT Procedure Visit [facility] [address] [place] [phone] Tiffanie Smyth, DPM [address] [place], [place] [phone] documented as of this encounter Procedures Procedure Name Priority Date/Time Associated Diagnosis Comments XR ABDOMEN 1 VIEW Routine 07/15/2023 12:07 PM EDT documented in this encounter Results * XR abdomen 1 view (07/15/2023 12:07 PM EDT) Anatomical Region Laterality Modality Abdomen Radiographic Shirlene ging us Jude Beach MD IMG XR PROCEDURES Final Resu lt documented in this encounter Visit Diagnoses Not on filedocumented in this encounter Care Teams Penetration Tester Relationship Specialty Start Date End Date Khoa Godinez MD (Fax) PCP - General Family Medicine 04/08/23 09/12/24 Khoa Godinez MD [address] [place] [address] (Fax) PCP - ACO Reach 12/31/23 Khoa Godinez MD [address] [place] [address] PCP - General Family Medicine 12/27/24 Jude Beach MD [address] [place] [address] Referring Physician Urology 12/09/23 Tiffanie Smyth DPM [address] [place] [address] Referring Physician Podiatry 12/09/23 Larissa Leavitt, RN [address] [place] [address] Registered Nurse Family Medicine 02/13/25 documented as of this encounter
--- OUTSIDE RECORDS SUMMARY | 2025-04-24 10:46 | XMS_ITS | Encounter Summary ---
Author Organization [facility] Address [address] [place] [address] Care Team Providers Care Tax Senior Associate Name Role Phone Khoa Godinez MD Primary Care Provider + [phone] Jude Beach MD Unavailable [phone] Tiffanie Smyth DPM Unavailable [phone] Khoa Godinez MD Unavailable [phone] Khoa Godinez MD Primary Care Provider + [phone] Larissa Leavitt RN Unavailable [phone] Encounter Details Date Type Department Care Team (Late st Contact Info) Description 06/02/2023 Abstract [facility] [address] [place] [address] Tiffanie Smyth, DPM [address] [place], [place] [phone] Social History Tobacco Use Types Packs/Day Years Used Date Smoking Tobacco: Never Tobacco Cessation:Counseling Given: Not Answered Alcohol Use Standard Drinks/Week Comments Never 0 [...] [facility] [address] [facility] 100 [place] [address] Khoa Godinez MD [address] [place] [address] (Fax) 05/07/2025 11:00 AM EDT Office Visit [facility] [address] [facility] 100 [place] [address] Khoa Godinez MD [address] [place] [address] (Fax) 07/12/2025 1:00 PM EDT Procedure Visit [facility] [address] [place] [phone] Tiffanie Smyth DPM [address] [place], [place] [phone] documented as of this encounter Visit Diagnoses Not on filedocumented in this encounter Care Teams Tax Senior Associate Relationship Specialty Start Date End Date Khoa Godinez MD (Fax) PCP - General Family Medicine 04/08/23 09/12/24 Khoa Godinez MD [address] [address] (Fax) PCP - ACO Reach 12/31/23 Khoa Godinez MD [address] [address] (Fax) PCP - General Family Medicine 12/27/24 Jude Beach MD [address] [place] [address] Referring Physician Urology 12/09/23 Tiffanie Smyth DPM [address] [place] [address] Referring Physician Podiatry 12/09/23 Larissa Leavitt, CORDELL [address] [place] [address] Registered Nurse Family Medicine 02/13/25 documented as of this encounter
--- OUTSIDE RECORDS SUMMARY | 2025-04-24 10:46 | XMS_ITS | Encounter Summary ---
Author Organization [facility] Address [address] [place] [address] Care Team Providers Care Senior Support Analyst Name Role Phone Jude Beach MD Unavailable [phone] Tiffanie Smyth DPM Unavailable [phone] Khoa Bowles MD Unavailable [phone] Khoa Bowles MD Primary Care Provider + [phone] Larissa Leavitt RN Unavailable [phone] Encounter Details Date Type Department Care Team (Late st Contact Info) Description 11/18/2024 Clinisync Result Encounter [facility] External Department Unsolicited [...] [facility] [address] [place] [address] Khoa Bowles MD [address] [place] [address] 05/07/2025 11:00 AM EDT Office Visit [facility] [address] [facility] [address] [place] [address] Khoa Bowles MD [address] [facility] [address] [place] [address] 07/12/2025 1:00 PM EDT Procedure Visit [facility] [address] [place] [address] Tiffanie Smyth, DPM [address] [place], [place] [id number] documented as of this encounter Procedures Procedure Name Priority Date/Time Associated Diagnosis Comments CT ANKLE LT WO CON 11/18/2024 9: 05 AM EST documented in this encounter Results * CT ANKLE LT WO CON (11/18/2024 9:05 AM EST) Anatomical Region Laterality Modality Other 11/18/2024 9:05 AM EST Narrative 11/18/2024 9:08 AM EST [address] [address] [address] Scan Report Signed Patient: MANUEL BALDERAS MR#: [id number] : 1950 Acct:[id number] Age/Sex: 74 / M ADM Date: 11/17/24 Loc: CT Attending Dr: Lou-Staff Physician Minerva Ordering Physician: Prince Greer M.D. Date of Service: 11/17/24 Procedure(s): CT ankle LT wo con Accession Number(s): [id number] cc: KHOA BOWLES [address] [address] Patient Name: MANUEL BALDERAS MRN: [id number] date: 1950 Sex: M Assigned Patient Location: CT Current Patient Location: CT Accession/Order Number: [id number] Exam Date: 11/17/2024 09:52 Report Date: 11/18/2024 09:05 At the request of: NON-STAFF PHYSICIAN Procedure: CT ankle LT wo con EXAM: CT ankle LT wo con HISTORY: Pseudo Arthritis Of Fusion Site. Left ankle pain for 3 to 4 months. No known trauma. History of fusion in 2008 with hardware removal in 2009. COMPARISON: CTA runoff 02/07/2024. TECHNIQUE: Multiple axial unenhanced CT images of the left ankle were supplemented with 2-D coronal and sagittal reformations. Dose reduction techniques were achieved by using automated exposure control and/or adjustment of mA and/or kV according to patient size and/or use of iterative reconstruction technique. FINDINGS: There is prior resection of the distal fibula. Surgical margin remains sharp. There is severe osteoarthritis at the tibiofemoral joint with chronic appearing remodeling of the articular surfaces of both the distal tibia and talar body. Talar body is significantly flattened and remodeled with numerous loose bodies in and around the knee joint, as before. There is partial bony fusion across the posterior subtalar joint involving 50% to 75% of the elbow joint. Minor bony fusion across the posterior margin of the anterior subtalar joint. The talonavicular and calcaneocuboid joints demonstrate mild marginal spur. Visualized mid foot appears maintained, as seen. No acute fracture is identified. Mild Achilles tendinosis is noted. The visualized flexor, peroneal, and extensor tendons appear intact. Mild soft tissue swelling and edema along the ankle and visualized foot. Prominent fatty atrophy of the muscles of the lower leg and hindfoot. CT/CT ankle LT wo con IMPRESSION: 1. 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 2. Postsurgical changes of the tibiotalar joint and hindfoot. Prior distal resection of the fibula. 3. Solid fusion is seen across the posterior subtalar joints, as above. 4. No acute fracture identified. Electronically authenticated by: KALA LANDERS Date: 11/18/2024 09:05 Dictated By: Kala Landers M.D. Signed By: 11/18/2408 DD/ 4 TD/TT: Antenna Rigger: Procedure Note Radiology, Radiologist, - 11/18/[address] [address] [address] Scan Report Signed Patient: MANUEL BALDERAS JMR#: [id number] : 1950Acct:[id number] Age/Sex: 74 / MADM Date: 11/17/24 Loc: CT Attending Dr: Lou-Staff Physician Minerva Ordering Physician: Prince Greer M.D. Date of Service: 11/17/24 Procedure(s): CT ankle LT wo con Accession Number(s): [id number] cc: KHOA BOWLES [place] [id number] Patient Name: MANUEL BALDERAS MRN: [id number] date: 1950 Sex: M Assigned Patient Location: CT Current Patient Location: CT Accession/Order Number: [id number] Exam Date: 11/17/2024 09:52 Report Date: 11/18/2024 09:05 At the request of: NON-STAFF PHYSICIAN Procedure: CT ankle LT wo con EXAM: CT ankle LT wo con HISTORY: Pseudo Arthritis Of Fusion Site. Left ankle pain for 3 to 4months. No known trauma. History of fusion in 2008 with hardware removal in 2009. COMPARISON: CTA runoff 02/07/2024. TECHNIQUE: Multiple axial unenhanced CT images of the left ankle were supplemented with 2-D coronal and sagittal reformations. Dose reduction techniques were achieved by using automated exposurecontrol and/or adjustment of mA and/or kV according to patient size and/or use of iterative reconstruction technique. FINDINGS: There is prior resection of the distal fibula. Surgical margin remains sharp. There is severe osteoarthritis at the tibiofemoral jointwith chronic appearing remodeling of the articular surfaces of both the distal tibia and talar body. Talar body is significantly flattened and remodeled with numerous loose bodies in and around the knee joint, as before. There is partial bony fusion across the posterior subtalar joint [id number]% to 75% of the elbow joint. Minor bony fusion across the posterior marginof the anterior subtalar joint. The talonavicular and calcaneocuboid joints demonstrate mild marginalspur. Visualized mid foot appears maintained, as seen. No acute fracture is identified. Mild Achilles tendinosis is noted. The visualized flexor, peroneal, and extensor tendons appear intact. Mild soft tissue swelling and edema alongthe ankle and visualized foot. Prominent fatty atrophy of the muscles of thelower leg and hindfoot. CT/CT ankle LT wo con IMPRESSION: 1. 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 2. Postsurgical changes of the tibiotalar joint and hindfoot. Prior distal resection of the fibula. 3. Solid fusion is seen across the posterior subtalar joints, as above. 4. No acute fracture identified. Electronically authenticated by: KALA LANDERS Date: 11/18/2024 09:05 Dictated By: Kala Landers M.D. Signed By:11/18/24907 DD/ 4 TD/TT: Antenna Rigger: us Generic External Data Provider [facility] Final Result documented in this encounter Visit Diagnoses Not on filedocumented in this encounter Additional Health Concerns Assessment Noted Time PHQ-9 Depression Total Score: 2 04/03/20 24 11:00 AM EDT documented as of this encounter Care Teams Senior Support Analyst Relationship Specialty Start Date End Date Khoa Bowles MD [address] [address] PCP - ACO Reach 12/31/23 Khoa Bowles MD [address] [address] PCP - General Family Medicine 12/27/24 Jude Beach MD [address] [place] [address] Referring Physician Urology 12/09/23 Tiffanie Smyth DPM [address] [place] [address] Referring Physician Podiatry 12/09/23 Larissa Leavitt, CORDELL [address] [facility] [address] [place] [phone] Registered Nurse Family Medicine 02/13/25 documented as of this encounter
--- OUTSIDE RECORDS SUMMARY | 2025-04-24 10:46 | XMS_ITS | Encounter Summary ---
Author Organization [facility] Address [address] [place] [address] Care Team Providers Care Locket Maker Name Role Phone Jude Beach MD Unavailable [phone] Tiffanie Smyth DPM Unavailable [phone] Khoa Godinez MD Unavailable [phone] Khoa Godinez MD Primary Care Provider + [phone] Larissa Leavitt RN Unavailable [phone] Encounter Details Date Type Department Care Team (Late st Contact Info) Description 01/29/2025 Orders Only [facility] [address] [place] [address] Jazlyn, [place], [place] Social History Tobacco Use Types Packs/Day Years [...] FM [address] [place] [address] Khao Godinez MD [address] [place] [address] (Fax) 05/07/2025 11:00 AM EDT Office Visit [facility] [address] [place] [address] Khoa Godinez MD [address] [place] [address] (Fax) 07/12/2025 1:00 PM EDT Procedure Visit [facility] [address] [address] Tiffanie Smyth DPM [address] [place], [place] [phone] documented as of this encounter Visit Diagnoses Not on filedocumented in this encounter Additional Health Concerns Assessment Noted Time PHQ-9 Depression Total Score: 2 04/03/20 24 11:00 AM EDT documented as of this encounter Care Teams Locket Maker Relationship Specialty Start Date End Date Khoa Godinez MD [address] [facility] [address] [place] [address] (Fax) PCP - ACO Reach 12/31/23 Khoa Godinez MD [address] [facility] [address] [place] [address] (Fax) PCP - General Family Medicine 12/27/24 Jude Beach MD [address] [place] [address] Referring Physician Urology 12/09/23 Tiffanie Smyth DPM [address] [place] [address] Referring Physician Podiatry 12/09/23 Larissa Leavitt, CORDELL [address] [place] [address] Registered Nurse Family Medicine 02/13/25 documented as of this encounter
--- OUTSIDE RECORDS SUMMARY | 2025-04-24 10:46 | XMS_ITS | Encounter Summary ---
Author Organization [facility] Address [address] [place] [address] Care Team Providers Care Young Adult Librarian Name Role Phone Khoa Godinez MD Primary Care Provider + [phone] Jude Beach MD Unavailable [phone] Tiffanie Smyth DPM Unavailable [phone] Khoa Godinez MD Unavailable [phone] Khoa Godinez MD Primary Care Provider + [phone] Larissa Leavitt RN Unavailable [phone] Encounter Details Date Type Department Care Team (Late Contact Info) Description 07/29/2023 Abstract [facility] [address] [facility] [place] [address] Shani Mohan DO Social History Tobacco Use Types Packs/Day Years [...] 04/26/2025 3:00 PM EDT Office Visit [facility] 100 [address] [facility] 100 [place] [address] Khoa Godinez MD [address] [place] [address] (Fax) 05/07/2025 11:00 AM EDT Office Visit [facility] [address] [place] [address] Khoa Godinez MD [address] [place] [address] (Fax) 07/12/2025 1:00 PM EDT Procedure Visit [facility] [address] [place] [address] Tiffanie Smyth DPM [address] [place] [address] documented as of this encounter Visit Diagnoses Not on filedocumented in this encounter Care Teams Young Adult Librarian Relationship Specialty Start Date End Date Khoa Godinez MD (Fax) PCP - General Family Medicine 04/08/23 09/12/24 Khoa Godinez MD [address] [place] [address] (Fax) PCP - ACO Reach 12/31/23 Khoa Godinez MD [address] [place] [address] (Fax) PCP - General Family Medicine 12/27/24 Jude Beach MD [address] [place] [address] Referring Physician Urology 12/09/23 Tiffanie Smyth DPM [address] [place] [address] Referring Physician Podiatry 12/09/23 Larissa Leavitt, RN [address] [facility] [address] [place] [phone] Registered Nurse Family Medicine 02/13/25 documented as of this encounter
--- OUTSIDE RECORDS SUMMARY | 2025-04-24 10:46 | XMS_ITS | Clinical Summary ---
Author Organization [facility] Address [address] [place] [address] Care Team Providers Care Operator Control Room Name Role Phone Jude Beach MD Unavailable [phone] Tiffanie Smyth DPM Unavailable [phone] Khoa Godinez MD Unavailable [phone] Khoa Godinez MD Primary Care Provider [phone] Larissa Leavitt RN Unavailable [phone] Allergies Active Allergy Reactions Criticality Noted Date Comments Meperidine 02/01/2014 Other Reaction(s): Other: See Comments moise Meperidine Hcl 12/02/2021 Other Reaction(s): moise Abdi Pioglitazone Swelling 04/13/2023 Medications aspirin 81 MG EC tablet Take 81 mg by mouth in the morning. Active biotin 62046 MCG tablet Take 1 tablet by mouth in the morning and 1 tablet before bedtime. Active ferrous sulfate 325 (65 Fe) MG tablet Take 325 mg by mouth in the morning. Take with meals. Active Lutein 20 MG tablet 1 (one) time each day at the same time. Active sodium bicarbonate 650 MG tablet Take 3 tablets by mouth in the morning and 3 tablets before bedtime. Active Flomax 0.4 MG 24 hr capsule Take 0.4 mg by mouth in the evening. 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 180 tablet 1 024 2024 Active spironolactone (Aldactone) 25 MG tabletIndications :Lymphedema of both lower extremities 2 tablets in Am and 1 tablet in PM 270 tablet 1 Active doxycycline (Monodox) 100 MG capsuleIndication s:Chronic cellulitis Take 1 capsule (100 mg) by mouth Daily 90 capsule 3 024 2024 Active allopurinol (Zyloprim) 300 MG tablet Take 300 mg by mouth Daily Active VESIcare 10 MG tabletIndications :Overactive Bladder Take 10 mg by mouth Daily Active hydroCHLOROthiazi de (HYDRODiuril) 25 MG tabletIndications :Essential hypertension Take 1 tablet (25 mg) by mouth in the evening 90 tablet 1 025 2024 Active insulin glargine (Basaglar KwikPen) 100 UNIT/ML penIndications:Ty pe 2 diabetes mellitus with hyperglycemia, without long-term current use of insulin (HCC) INJECT BID, SLIDING BLOOD GLUCOSE SCALE WITH THE COVERAGE: <70, ZERO AND EAT. 70-150, 10 UNITS. 151-200, 14 UNITS. 201-250, 16 UNITS. 251-300, 18 UNITS. >300, 20 UNITS 15 each 3 025 Active Blood Glucose Monitoring Suppl (Blood Glucose Monitoring 333) device 1 Device continuously Accucheck Active Glucose Blood (Blood Glucose Test Strips 333) strip 1 strip by In Vitro route in the morning and 1 strip in the evening. Take before meals. Active Lancets misc 1 Lancet in the morning and 1 Lancet in the evening. Take before meals. Active DULoxetine (Cymbalta) [address] capsule Take 30 mg by mouth in the morning and 30 mg before bedtime. 025 Active metFORMIN (Glucophage) 1000 MG tabletIndications :Type 2 diabetes mellitus with hyperglycemia, without long-term current use of insulin (HCC) TAKE 1 TABLET (1,000 MG) BY MOUTH IN THE MORNING AND IN THE EVENING WITH MEALS 180 tablet 1 025 Active metFORMIN (Glucophage) 1000 MG tabletIndications :Type 2 diabetes mellitus with hyperglycemia, without long-term current use of insulin (HCC) Take 1 tablet (1,000 mg) by mouth in the morning and 1 tablet (1,000 mg) in the evening. Take with meals. 180 tablet 1 024 2024 Discontinued Active Problems Problem Noted Date Diagnosed Date Snoring 07/26/2024 Obesity (BMI 30-39.9) 07/26/2024 Hypersomnia 07/26/2024 Myalgia due to statin 06/07/2024 Lumbar stenosis 04/11/2024 Facet arthritis of lumbar region 04/11/2024 DDD (degenerative disc disease), lumbar 04/11/20 Radiculopathy, lumbosacral region 04/11/2024 Hypersomnolence 04/11/2024 Polyradiculopathy 04/11/2024 Overview (04/11/2024): radicular pain into the bilateral lower extremities due [...] He does not tolerate zanaflex or cyclobenzaprine. Lumbar spine MRI 08/05/2023 revealed diffuse degenerative disc disease contributing to moderate canal or neural foraminal stenosis. At L4-5 there are postoperative changes and diffuse broad based disc bulge with central extrusion type disc herniation extending inferiorly along the posterior aspect of the L5 vertebrae with ligamentum flavum hypertrophy and facet join degenerative changes causing moderate canal and bilateral neural foraminal stenosis. There is also moderate canal narrowing at L1-2, L2-3, and L3-4. There were hemangiomas at L2, L3, and L5 vertebral body levels. The cramping in his legs have improved. Spinal stenosis, lumbar region with neurogenic c laudication 12/09/2023 Deep vein thrombosis (DVT) of left lower extremi ty 07/28/2023 Elevated PSA 07/28/2023 Personal history of kidney stones 07/28/2023 Benign non-nodular prostatic hyperplasia with lower urinary tract symptoms 04/12/2023 Chronic cellulitis 04/12/2023 CPAP (continuous positive airway pressure) depen dence 04/12/2023 Diabetic neuropathic arthropathy 04/12/2023 Difficulty in walking, not elsewhere classified 04/12/2023 Hypertension 04/12/2023 Heart murmur 04/12/2023 Hypertensive left ventricula r hypertrophy, without heart failure 04/12/2023 Hyperuricemia 04/12/2023 Iron deficiency anemia secon bradley to inadequate dietary iron intake 04/12/2023 Lymphedema of both lower extremities 04/12/2023 Microalbuminuria 04/12/2023 Mixed hyperlipidemia 04/12/2023 Morbid obesity due to excess calories 04/12/2023 Obstructive sleep apnea syndrome 04/12/2023 Osteoarthritis of spine with radiculopathy, thoracolumbar region 04/12/2023 Right bundle branch block 04/12/2023 Spondylolisthesis, lumbar region 04/12/2023 Stasis dermatitis of both legs 04/12/2023 Thrombocytopenia 04/12/2023 Chronic ulcer of left foot limited to breakdown of skin 08/26/2021 Peripheral venous insufficiency 08/05/2021 Polypharmacy 08/05/2021 Hyperglycemia due to type 2 diabetes mellitus Diabetic renal disease 10/02/2020 History of arthrodesis 10/02/2020 Overview (11/04/2023): Left ankle Thoracic spondylosis without myelopathy 10/02/20 20 Bilateral nonexudative age-related macular degen eration 07/19/2016 Lower urinary tract symptoms due to benign prostatic hyperplasia 07/19/2016 Nonexudative age-related macular degeneration Polyneuropathy due to type 2 diabetes mellitus 0 07/19/2016 Diverticulosis of colon 08/10/2015 Flank pain 02/01/2014 Fibromyalgia Weakness Peripheral vascular disease Malaise and fatigue Back pain Overview (04/11/2024): severe polyneuropathy and polyradiculopathy- likely due to DM. also has chronic back pain. improved with meds. Symptoms have improved with gabapentin. he cannot walk for long distances due to fatigue and weakness and is afraid of falling Polyneuropathy Overview (04/11/2024): Previously was treated with both zonegran and gabapentin. Zonegran has since been weaned. Diabetes normally well controlled. He continues with lower extremity pain despite, likely related to the underlying polyneuropathy. Gabapentin increase lessened symptoms. Resolved Problems Problem Noted Date Diagnosed Date Resolved Date Family history of prostate cancer 07/28/2023 11/04/2023 Nocturia 07/28/2023 11/04/2023 Skin ulcer of toe of left fo ot, limited to breakdown of skin 04/12/2023 04/03/2024 Type 2 diabetes mellitus 04/12/202301/2024 Ulcer of foot due to type 2 diabetes mellitus 04/12/20 23 04/03/2024 Class 2 obesity 10/02/2020 11/04/2023 Lymphedema 07/19/2016 11/04/2023 BMI 40.0-44.9, adult 02/01/2014 024 Encounters Date Type Department Care Team Description 04/24/2025 Patient Outreach [facility] [address] [place] [address] Larissa Leavitt, CORDELL 04/24/2025 Refill [facility] [address] [place] [address] Khoa Godinez MD Mixed hyperlipidemia 04/19/2025 Telephone [facility] [address] [place] [address] Sridevi Hobson MA Lab Orders 04/17/2025 Patient Outreach [facility] [address] [place] [address] Larissa Leavitt, CORDELL 04/05/2025 1:00 PM EDT Procedure Visit [facility] [address] [place] [address] Tiffanie Smyth DPM Type II or unspecified type diabetes mellitus with neurological manifestations, not 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) ([facility]) (Primary Dx); Onychomycosis; Acquired keratoderma; Callus 04/05/2025 Refill [facility] [address] [place] [address] Khoa Godinez MD Type 2 diabetes mellitus with hyperglycemia, without long-term current use of insulin ([facility]) 04/05/2025 Bamboo flowsheet [facility] [address] [place] [address] Tiffanie Smyth DPM 04/05/2025 Travel 04/04/2025 Travel 04/03/2025 Travel 03/16/2025 Patient Outreach [facility] [address] [place] [address] Larissa Leavitt RN 03/15/2025 Clinisync Result Encounter [facility] External Department Unsolicited Provider, Generic External Data 02/27/2025 Patient Outreach [facility] [address] [place] [address] Larissa Leavitt RN 02/20/2025 8:00 AM EDT Office Visit [facility] [address] [place] [address] Khoa Godinez MD Fall from standing, subsequent encounter; Skin tear of upper extremity; Bleeding; Encounter for examination following treatment at hospital 02/20/2025 Bamboo flowsheet [facility] [address] [place] [address] Khoa Godinez MD 02/20/2025 Travel 02/19/2025 Patient Outreach [facility] [address] [place] [address] Larissa Leavitt RN 02/14/2025 Patient Outreach [facility] [address] [place] [address] Larissa Leavitt RN 02/13/2025 Patient Outreach [facility] [address] [place] [address] Larissa Leavitt, CORDELL 02/10/2025 Refill [facility] [address] [facility] [address] [place] [address] Khoa Godinez MD Type 2 diabetes mellitus with hyperglycemia, without long-term current use of insulin ([facility]) 02/07/2025 Telephone [facility] [address] [facility] [address] [place] [address] Amaya Barnett RN Medication Question 02/05/2025 Refill [facility] [address] [facility] [address] [place] [address] Khoa Godinez MD Type 2 diabetes mellitus with hyperglycemia, without long-term current use of insulin ([facility]) 01/29/2025 Orders Only [facility] [address] [facility] [address] [place] [address] Jazlyn January,01/29/2025 Telephone [facility] [address] [facility] [address] [place] [address] Jazlyn January, [place] from Last 3 Months Immunizations Immunization Administration Dates Next Due Influenza, High Dose Seasona l, Preservative Free 10/26/2024,09/04/2019,08/19/2018,09/06,08/17/2016 Influenza, High-dose Seasona l, Quadrivalent, Preservative Free 09/03/2022 Influenza, Seasonal, Quadriv alent, Adjuvanted 10/14/2023,08/22/2021,08/06/2020 Influenza, Unspecified 08/20/2021,08/18/2017, Influenza, seasonal, injecta ble, preservative free 08/17/2015 Deborah SARS-CoV-2 01/25/2021 Moderna Bivalent Booster Vaccination 09/09/2022 Moderna SARS-CoV-2 Booster Vaccination Pneumococcal Conjugate PCV 13 12/31/2020, 016 Pneumococcal Polysaccharide PPSV23 09/06/2017,,07/20/2009 Tdap 02/16/2025 Zoster, live 08/22/2015 Family History Medical History Relation Name Comments No Known Problems Brother No Known Problems Daughter NonHodgkins Lymphoma Father Diabetes Mother Renee No Known Problems Sister Relation Name Status Comments Brother 1 brother Daughter Alive 1 daughter Father Mother Renee Other Alive spouse Sister 3 sisters Social History Tobacco Use Types Packs/Day Years [...] Sign Reading Time Taken Comments Blood Pressure 130/84 08/08/2024 12:34 PM EDT Pulse 52 08/08/2024 12:34 PM EDT Temperature - - Respiratory Rate 16 08/08/2024 12:34 PM EDT Oxygen Saturation 99% 08/08/2024 12:34 PM EDT Inhaled Oxygen Concentration - - Weight 127 kg (281 lb) 04/05/2025 1:00 PM EDT Height 185.4 cm (6' 1 ) 04/05/2025 1:00 PM EDT Body Mass Index 37.07 04/05/2025 1:00 PM EDT Plan of Treatment Upcoming Encounters Date Type Department Care Team (Late st Contact Info) Description 04/26/2025 3:00 PM EDT Office Visit [facility] [address] [facility] [address] [place] [address] Khoa Godinez MD 112 [facility] 100 [place] [address] 05/07/2025 11:00 AM EDT Office Visit [facility] 112 [facility] [address] [place] [address] Khoa Godinez MD 112 [facility] [address] [place] [address] 07/12/2025 1:00 PM EDT Procedure Visit [facility] [address] [place] [address] Tiffanie Smyth, DPM [address] [place], [place] [id number] Health Maintenance Due Date Last Done Comments CT Colonography 1950 FIT-DNA 1950 FIT 1950 FOBT 1950 Sigmoidoscopy 1950 Diabetes: Urine Protein Screening 11/18/2022 022, 07/24/2019 Medicare Annual Wellness (AWV) 04/03/2025 0 04/03/2024, 02/22/2023, 12/23/2021 Diabetes: Hemoglobin A1C 04/26/2025 024, 10/19/2023, 12/31/2022, Additional history exists Colonoscopy 06/17/2026 06/17/2016 Colorectal Cancer Screening 06/17/2026 Diabetes: Retinopathy Screening 02/27/2027 02/27/2025, 02/25/2024, 06/08/2022, Additional history exists Pneumococcal Vaccine: 65+ Years Completed 12/31/2020, 09/06/2017, 08/17/2016, Additional history exists Influenza Vaccine Completed 10/26/2024, , 09/03/2022, Additional history exists Procedures Procedure Name Priority Date/Time Associated Diagnosis Comments MHPT PSA, DIAGNOSTIC Routine 03/15/2025 9:59 AM EDT DIABETIC RETINOPATHY SCREENING - OU - BOTH EYES Routine 02/25/2024 9:23 AM EDT HEMOGLOBIN A1C Routine 10/19/2023 4:15 PM EST Type 2 diabetes mellitus with hyperglycemia, without long-term current use of insulin (HCC) MICROALBUMIN, URINE QUANT Routine 11/18/2021 12:00 PM EST COLONOSCOPY Routine 06/17/2016 12:00 PM EDT from Last 3 Months or Most Recently Relevant to Health Maintenance Results * (ABNORMAL) MHPT PSA, DIAGNOSTIC (03/15/2025 9:59 AM EDT) PROSTATE SPECIFIC ANTIGEN DX 5.80(H) <=4.00 ng/mL TB 03/15/2025 9:59 AM EDT 03/15/2025 10:00 AM EDT Narrative [facility] - 03/15/2025 11:47 AM EDT Generic External Data Provider [facility] F inal Result Performing Organization Address [facility] de Phone Number [facility] * Diabetic Retinopathy Screening - OU - Both Eyes (02/25/2024 9:23 AM EDT) Anatomical Region Laterality Modality Head Other Rasheed Truong MD OPHTH PHOTOGRAPHY Final Result * Hemoglobin A1c (10/19/2023 4:15 PM EST) Blood Venous blood specimen / Unknown Khoa Godinez MD LAB BLOOD ORDERABLES Final R esult Performing Organization Address [facility] de Phone Number [facility] * MICROALBUMIN, URINE QUANT (11/18/2021 12:00 PM EST) GENERIC LEGACY COMPONENT INTERNAL 1-1,500 [facility] GENERIC LEGACY COMPONENT INTERNAL 1,500 [facility] 11/18/2021 12:0 0 PM EST Khoa Godinez MD [facility] Final Result Performing Organization Address [facility] de Phone Number [facility] * Colonoscopy (06/17/2016 12:00 PM EDT) Anatomical Region Laterality Modality Endoscopy 06/17/2016 12:0 0 PM EDT Narrative 04/29/2017 12:00 PM EDT PERFORMED AT [facility] LOCATION:[id number] Abnormal Procedure Note CONVERSION, GENERIC - 03/18/2023 PERFORMED AT [facility] LOCATION:[id number] Abnormal Khoa Godinez MD ENDOSCOPY PROCEDURE ORDERABL ES Final Result from Last 3 Months or Most Recently Relevant to Health Maintenance Insurance MEDICARE AET Advance Directives Documents on File Type Date Recorded Patient Proof Technician Expl anation Power of Shredded Filler Cutter Operator 03/29/2024 1:37 PM 07-10 POA Advance Directives and Living Will 03/29/2024 1:37 PM 2013-07-10 Living Wi Care Teams Operator Control Room Relationship Specialty Start Date End Date Khoa Godinez MD [address] [place] [address] PCP - ACO Reach 12/31/23 Khoa Godinez MD [address] [place] [address] PCP - General Family Medicine 12/27/24 Jude Beach MD [address] [place] [address] Referring Physician Urology 12/09/23 Tiffanie Smyth DPM [address] [place] [address] Referring Physician Podiatry 12/09/23 Larissa Leavitt, RN [address] [place] [address] Registered Nurse Family Medicine 02/13/25
--- OUTSIDE RECORDS SUMMARY | 2025-04-24 10:46 | XMS_ITS | Encounter Summary ---
Author Organization [facility] Address [address] [place] [address] Care Team Providers Care Glass Lathe Operator Name Role Phone Khoa Bowles MD Primary Care Provider [phone] Madison Wood MD Unavailable [phone] Tiffanie Smyth DPM Unavailable [phone] Khoa Bowles MD Unavailable [phone] Khoa Bowles MD Primary Care Provider [phone] Larissa Leavitt RN Unavailable [phone] Encounter Details Date Type Department Care Team (Late st Contact Info) Description 07/15/2023 Clinisync Result Encounter [facility] External Department Unsolicited [...] FM [address] [place] [address] Khoa Bowles MD [address] [place] [address] 05/07/2025 11:00 AM EDT Office Visit [facility] [address] [place] [address] Khoa Bowles MD [address] [place] [address] 07/12/2025 1:00 PM EDT Procedure Visit [facility] [address] [place] [address] Tiffanie Smyth, DPM [address] [place], [place] [phone] documented as of this encounter Procedures Procedure Name Priority Date/Time Associated Diagnosis Comments XR ABDOMEN 1V 07/15/2023 11:48 AM EDT documented in this encounter Results * XR ABDOMEN 1V (07/15/2023 11:48 AM EDT) Anatomical Region Laterality Modality Other 07/15/2023 11:4 8 AM EDT Narrative 07/15/2023 11:48 AM EDT [address] [address] XRay Report Signed Patient: MANUEL BALDERAS MR#: [id number] : 1950 Acct:[id number] Age/Sex: 73 / M ADM Date: 07/15/23 Loc: RAD Attending Dr: Madison Wood M.D. Ordering Physician: Madison Wood M.D. Date of Service: 07/15/23 Procedure(s): XR abdomen 1V Accession Number(s): [id number] cc: KHOA BOWLES ; Madison Wood M.D. [address] [address] Patient Name: MANUEL BALDERAS MRN: [id number] date: 1950 Sex: M Assigned Patient Location: RAD Current Patient Location: RAD Accession/Order Number: [id number] Exam Date: 07/15/2023 10:10 Report Date: 07/15/2023 11:48 At the request of: MADISON WOOD Procedure: XR abdomen 1V EXAMINATION: XR abdomen 1V HISTORY: Kidney stone N20.0 COMPARISON: XR KUB 01/14/2023 FINDINGS: KIDNEY/URETER - RIGHT: No visible renal or ureteral calcifications. KIDNEY/URETER - LEFT: A few small calcifications overlying inferior pole of kidney. PELVIS: No visible ureteral stones. Stable pelvic calcifications favoring phleboliths. BOWEL: No abnormal dilation or deviation. BONES: Mechanical fusion of posterior spinous process of L3 and L4. OTHER: Negative. No abnormal gaseous collections. XR/XR abdomen 1V IMPRESSION: 1. Grossly stable left nephrolithiasis. Electronically authenticated by: KEAGAN SOLOMON Date: 07/15/2023 11:48 Dictated By: Keagan Solomon M.D. Signed By: 07/15/23 1150 DD/ 1148 TD/TT: Video Machines Mechanic: Procedure Note Radiology, Radiologist, MD - 07/23/2023 [place] [address] XRay Report Signed Patient: MANUEL BALDERAS R#: [id number] : 1950Acct:[id number] Age/Sex: 73 / MADM Date: 07/15/23 Loc: RAD Attending Dr: Madison Wood M.D. Ordering Physician: Madison Wood M.D. Date of Service: 07/15/23 Procedure(s): XR abdomen 1V Accession Number(s): [id number] cc: KHOA BOWLES ; Madison Wood M.D. The [address] [address] Patient Name: MANUEL BALDERAS MRN: [facility]:[id number] date: 1950 Sex: M Assigned Patient Location: RAD Current Patient Location: RAD Accession/Order Number: [id number] Exam Date: 07/15/2023 10:10 Report Date: 07/15/2023 11:48 At the request of: MADISON WOOD Procedure: XR abdomen 1V EXAMINATION: XR abdomen 1V HISTORY: Kidney stone N20.0 COMPARISON: XR KUB 01/14/2023 FINDINGS: KIDNEY/URETER - RIGHT: No visible renal or ureteral calcifications. KIDNEY/URETER - LEFT: A few small calcifications overlying inferior poleof kidney. PELVIS: No visible ureteral stones. Stable pelvic calcifications favoring phleboliths. BOWEL: No abnormal dilation or deviation. BONES: Mechanical fusion of posterior spinous process of L3 and L4. OTHER: Negative. No abnormal gaseous collections. XR/XR abdomen 1V IMPRESSION: 1. Grossly stable left nephrolithiasis. Electronically authenticated by: KEAGAN SOLOMON Date: 07/15/2023 11:48 Dictated By: Keagan Solomon M.D. Signed By:07/15/23 1150 DD/ 1148 TD/TT: Video Machines Mechanic: us Generic External Data Provider [facility] Final Result documented in this encounter Visit Diagnoses Not on filedocumented in this encounter Care Teams Glass Lathe Operator Relationship Specialty Start Date End Date Khoa Bowles MD PCP - General Family Medicine 04/08/23 09/12/24 Khoa Bowles MD [address] [address] PCP - ACO Reach 12/31/23 Khoa Bowles MD [address] [place] [address] PCP - General Family Medicine 12/27/24 Madison Wood MD [address] [place] [address] Referring Physician Urology 12/09/23 Tiffanie Smyth DPM [address] [place], [place] [phone] Referring Physician Podiatry 12/09/23 Larissa Leavitt, RN [address] [place] [id number] Registered Nurse Family Medicine 02/13/25 documented as of this encounter
--- OUTSIDE RECORDS SUMMARY | 2025-04-24 10:46 | XMS_ITS | Encounter Summary ---
Author Organization [facility] Address [address] [place] [address] Care Team Providers Care Investigative Agent Name Role Phone Jude Beach MD Unavailable [phone] Tiffanie Smyth DPM Unavailable [phone] Khoa Godinez MD Unavailable [phone] Khoa Godinez MD Primary Care Provider [phone] Larissa Leavitt RN Unavailable [phone] Reason for Visit * Reason Comments Med Refill Encounter Details Date Type Department Care Team (Late st Contact Info) Description 04/24/2025 Refill [facility] [address] [place] [address] [place] [address] Khoa Godinez MD [address] [place] [address] Mixed hyperlipidemia Social History Tobacco Use Types [...] [address] [facility] 100 [place] [address] Khoa Godinez MD [address] [address] (Fax) 05/07/2025 11:00 AM EDT Office Visit [facility] [address] [facility] 100 [place] [address] Khoa Godinez MD [address] [address] (Fax) 07/12/2025 1:00 PM EDT Procedure Visit [facility] [address] [place] [id number] Tiffanie Smyth DPM [address] [place] [address] documented as of this encounter Visit Diagnoses Diagnosis Mixed hyperlipidemia Mixed hyperlipidemia documented in this encounter Additional Health Concerns Assessment Noted Time PHQ-9 Depression Total Score: 2 04/03/20 24 11:00 AM EDT documented as of this encounter Care Teams Investigative Agent Relationship Specialty Start Date End Date Khoa Godinez MD [address] [address] (Fax) PCP - ACO Reach 12/31/23 Khoa Godinez MD [address] [address] (Fax) PCP - General Family Medicine 12/27/24 Jude Beach MD [address] [place] [address] Referring Physician Urology 12/09/23 Tiffanie Smyth DPM [address] [place] [address] Referring Physician Podiatry 12/09/23 Larissa Leavitt, RN [address] [facility] [address] [facility] [address] Registered Nurse Family Medicine 02/13/25 documented as of this encounter
--- OUTSIDE RECORDS SUMMARY | 2025-04-24 10:46 | XMS_ITS | Encounter Summary ---
Author Organization [facility] Address [address] [place] [address] Care Team Providers Care Silver Cleaner Name Role Phone Jude Beach MD Unavailable [phone] Tiffanie Smyth DPM Unavailable [phone] Khoa Godinez MD Unavailable [phone] Khoa Godinez MD Primary Care Provider [phone] Larissa Leavitt RN Unavailable [phone] Reason for Visit * Reason Onset Date Comments Lab Orders 04/19/2025 Encounter Details Date Type Department Care Team (Late st Contact Info) Description 04/19/2025 Telephone [facility] [address] [place] [address] [place] [address] Jazlyn SrideviSATURNINO Lab Orders Social History Tobacco Use Types Packs/Day Years [...] encounter Miscellaneous Notes * Telephone Encounter - January SATURNINO Hobson - 04/19/2025 10:35 AM EDT Larissa, I tried calling you but missed you. Pt needs to get his A1C and Micro done for his OV next week. [facility]he is coming [facility] it needs to be by tomorrow as they are taking a few days to come back. If he is going to [facility] it will need faxed and he can go by Wednesday morning and it will be back in time. documented in this encounter Plan of Treatment Upcoming Encounters Date Type Department Care Team (Late st Contact Info) Description 04/26/2025 3:00 PM EDT Office Visit [facility] [address] [place] [address] [place] [address] Khoa Godinez MD [address] [place] [address] 05/07/2025 11:00 AM EDT Office Visit [facility] [address] [facility] [address] [place] [address] Khoa Godinez MD [address] [place] [address] 07/12/2025 1:00 PM EDT Procedure Visit [facility] [address] [place] [address] Tiffanie Smyth, DPM [address] [place], [place] [phone] Scheduled Orders Name Type Priority Associated Diagnoses Orde r Schedule Hemoglobin A1c Lab Routine Microalbuminuria Type 2 diabetes mellitus with hyperglycemia, with long-term current use of insulin (HCC) Expected: 04/19/2025 (Approximate), Expires: 04/19/2026 Microalbumin / creatinine urine ratio Lab Routine Microalbuminuria Type 2 diabetes mellitus with hyperglycemia, with long-term current use of insulin (HCC) Expected: 04/19/2025 (Approximate), Expires: 04/19/2026 documented as of this encounter Visit Diagnoses Diagnosis Microalbuminuria Proteinuria Type 2 diabetes mellitus with hyperglycemia, with long-term current use of insulin (HCC) documented in this encounter Additional Health Concerns Assessment Noted Time PHQ-9 Depression Total Score: 2 04/03/20 24 11:00 AM EDT documented as of this encounter Care Teams Silver Cleaner Relationship Specialty Start Date End Date Khoa Godinez MD [address] [address] PCP - ACO Reach 12/31/23 Khoa Godinez MD [address] [facility] 100 [place] [address] PCP - General Family Medicine 12/27/24 Jude Beach MD [address] [place] [address] Referring Physician Urology 12/09/23 Tiffanie Smyth DPM [address] [place] [address] Referring Physician Podiatry 12/09/23 Larissa Leavitt, CORDELL [address] [place] [address] Registered Nurse Family Medicine 02/13/25 documented as of this encounter
--- OUTSIDE RECORDS SUMMARY | 2025-04-24 10:46 | XMS_ITS | Encounter Summary ---
Author Organization [facility] Address [address] [email or web address] [address] Care Team Providers Care Health Clinician Name Role Phone Khoa Bowles MD Primary Care Provider [phone] Jude Wood MD Unavailable [phone] Tiffanie Smyth DPM Unavailable [phone] Khoa Bowles MD Unavailable [phone] Khoa Bowles MD Primary Care Provider [phone] Larissa Leavitt RN Unavailable [phone] Encounter Details Date Type Department Care Team (Late st Contact Info) Description 09/02/2024 Clinisync Result Encounter [facility] External Department Unsolicited [...] FM [address] [place] [place] [address] Khoa Bowles MD [address] [place] [address] 05/07/2025 11:00 AM EDT Office Visit [facility] [address] [place] [place] [address] Khoa Bowles MD [address] [facility] 100 [place] [address] (Fax) 07/12/2025 1:00 PM EDT Procedure Visit [facility] [address] [place] [address] Tiffanie Smyth, DPM [address] [place], [place] [address] documented as of this encounter Procedures Procedure Name Priority Date/Time Associated Diagnosis Comments XR ABDOMEN 1V 09/02/2024 6:56 AM EDT documented in this encounter Results * XR ABDOMEN 1V (09/02/2024 6:56 AM EDT) Anatomical Region Laterality Modality Other 09/02/2024 6:56 AM EDT Narrative 09/02/2024 6:59 AM EDT [address] [address] XRay Report Signed Patient: MANUEL BALDERAS MR#: [id number] : 1950 Acct:[id number] Age/Sex: 74 / M ADM Date: 08/31/24 Loc: LAB Attending Dr: Jude Wood M.D. Ordering Physician: Jude Wood M.D. Date of Service: 08/31/24 Procedure(s): XR abdomen 1V Accession Number(s): [id number] cc: KHOA BOWLES ; Jude Wood M.D. [address] [address] Patient Name: MANUEL BALDERAS MRN: [id number] date: 1950 Sex: M Assigned Patient Location: LAB Current Patient Location: Accession/Order Number: [id number] Exam Date: 08/31/2024 15:00 Report Date: 09/02/2024 06:56 At the request of: JUDE WOOD Procedure: XR abdomen 1V EXAMINATION: XR abdomen 1V HISTORY: Kidney Stones COMPARISON: XR abdomen 07/15/2023 FINDINGS: KIDNEY/URETER - RIGHT: No visible renal or ureteral calcifications. KIDNEY/URETER - LEFT: No visible renal or ureteral calcifications. PELVIS: No visible ureteral stones. Stable pelvic calcifications favoring phleboliths. BOWEL: No abnormal dilation or deviation. BONES: Multilevel degenerative disc disease. Mechanical fusion of spinous processes of L3-L4. OTHER: Negative. No abnormal gaseous collections. XR/XR abdomen 1V IMPRESSION: 1. No appreciable urinary tract calculi. Electronically authenticated by: JAYCE SOLOMON Date: 09/02/2024 06:56 Dictated By: Jayce Solomon M.D. Signed By: 09/02/2459 DD/ TD/TT: Continuous Mining Machine Operator: Procedure Note Radiology, Radiologist, MD - 09/02/2024 [place] [address] XRay Report Signed Patient: MANUEL BALDERAS JMR#: [id number] : 1950Acct:[id number] Age/Sex: 74 / MADM Date: 08/31/24 Loc: LAB Attending Dr: Jude Wood M.D. Ordering Physician: Jude Wood M.D. Date of Service: 08/31/24 Procedure(s): XR abdomen 1V Accession Number(s): [id number] cc: KHOA BOWLES ; Jude Wood M.D. The [address] [address] Patient Name: MANUEL BALDERAS MRN: [id number] date: 1950 Sex: M Assigned Patient Location: LAB Current Patient Location: Accession/Order Number: [id number] Exam Date: 08/31/2024 15:00 Report Date: 09/02/2024 06:56 At the request of: JUDE WOOD Procedure: XR abdomen 1V EXAMINATION: XR abdomen 1V HISTORY: Kidney Stones COMPARISON: XR abdomen 07/15/2023 FINDINGS: KIDNEY/URETER - RIGHT: No visible renal or ureteral calcifications. KIDNEY/URETER - LEFT: No visible renal or ureteral calcifications. PELVIS: No visible ureteral stones. Stable pelvic calcifications favoring phleboliths. BOWEL: No abnormal dilation or deviation. BONES: Multilevel degenerative disc disease. Mechanical fusion of spinous processes of L3-L4. OTHER: Negative. No abnormal gaseous collections. XR/XR abdomen 1V IMPRESSION: 1. No appreciable urinary tract calculi. Electronically authenticated by: JAYCE SOLOMON Date: 09/02/2024 06:56 Dictated By: Jayce Solomon M.D. Signed By:09/02/2459 DD/ 5 TD/TT: Continuous Mining Machine Operator: us Generic External Data Provider [facility] Final Result documented in this encounter Visit Diagnoses Not on filedocumented in this encounter Additional Health Concerns Assessment Noted Time PHQ-9 Depression Total Score: 2 04/03/20 24 11:00 AM EDT documented as of this encounter Care Teams Health Clinician Relationship Specialty Start Date End Date Khoa Bowles MD (Fax) PCP - General Family Medicine 04/08/23 09/12/24 Khoa Bowles MD [address] [address] (Fax) PCP - ACO Reach 12/31/23 Khoa Bowles MD [address] [address] PCP - General Family Medicine 12/27/24 Jude Wood MD [address] [place] [address] Referring Physician Urology 12/09/23 Tiffanie Smyth DPM [address] [place] [address] Referring Physician Podiatry 12/09/23 Larissa Leavitt, CORDELL [address] [place] [address] Registered Nurse Family Medicine 02/13/25 documented as of this encounter
[2025-04-24 11:12] LABS: Creatinine Urine Random 52.26 mg/dL (20.00-300.00); Microalbum Creatinine Ratio Ur 57.4 mg/g (0.0-29.9)
[2025-04-24 11:16] LABS: Estimated Average Glucose 151 mg/dL; Glycohemoglobin A1C 6.9 % (4.5-6.2)
== END 2025-04-24 10:39 | disposition home or self-care (01) ==
LOC: LAB 10:43
PROVIDERS: PCP Family Medicine; Visit Provider Family Medicine
DX: R80.9 Proteinuria, unspecified (principal); E11.65 Type 2 diabetes mellitus with hyperglycemia; Z79.4 Long term (current) use of insulin
CPT/HCPCS: 36415; 82043; 82570; 83036

== ENCOUNTER 2025-05-15 12:38 | Outpatient (OUT) | payer MEDICARE, SELFPAY ==
--- OUTSIDE RECORDS SUMMARY | 2025-05-07 11:00 | XMS_ITS | Encounter Summary ---
Author Organization [facility] Address [address] [place] [address] Care Team Providers Care Airport Ramp Supervisor Name Role Phone Jude Beach MD Unavailable [phone] Tiffanie Smyth DPM Unavailable [phone] Khoa Godinez MD Unavailable [phone] Khoa Godinez MD Primary Care Provider [phone] Larissa Leavitt RN Unavailable [phone] Callie Mora MD Unavailable [phone] Skinny White MD Unavailable [phone] Shani Mohan DO Unavailable [phone] Reason for Visit * Reason Comments Annual Exam Encounter Details Date Type Department Care Team (Late st Contact Info) Description 05/07/2025 11:00 AM EDT Office Visit [facility] [address] [facility] [address] [place] [address] Khoa Godinez MD 112 [facility] [address] [place] [address] (Fax) Encounter for Medicare annual wellness exam (Primary Dx); Advance directive in chart; Encounter for screening for other disorder; Screening for alcohol problem; 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); Diabetic neuropathic arthropathy (HCC); Type 2 diabetes mellitus with diabetic neuropathic arthropathy, with long-term current use of insulin (HCC); Chronic ulcer of left foot limited to breakdown of skin (HCC); Morbid obesity due to excess calories ([facility]-HCC); Type 2 diabetes mellitus with foot ulcer (CODE) (HCC); Thrombocytopenia Social History Tobacco Use Types Packs/Day Years Used Date Smoking Tobacco: Never Tobacco Cessation:Counseling Given: Yes Alcohol Use Standard Drinks/Week Comments Never 0 (1 standard drink = 0.6 oz pur e alcohol) Caffeine intake: none PHQ-2 Answer Date Recorded Patient Health Questionnaire-2 Score 0 05/07/2025 Sex and Gender Information Value Date Recorded Sex Assigned at Not on file Legal Sex Male 7:09 PM EDT Gender Identity Not on file Sexual Orientation Not on file Occupation Industry Job Start Date Job End Date Retired Not on file Not on file Not on file documented as of this encounter Last Filed Vital Signs Vital Sign Reading Time Taken Comments Blood Pressure 120/68 05/07/2025 11:04 AM EDT Pulse 71 05/07/2025 11:04 AM EDT Temperature - - Respiratory Rate - - Oxygen Saturation 96% 05/07/2025 11:04 AM EDT Inhaled Oxygen Concentration - - Weight 127 kg (281 lb) 05/07/2025 11:04 AM EDT Height 185.4 cm (6' 1 ) 05/07/2025 11:04 AM EDT Body Mass Index 37.07 05/07/2025 11:04 AM EDT documented in this encounter Functional Status * Over the past 2 weeks, how often have you been bothered by any of the following problems? Question Answer Date of Assessment Author Little interest or pleasure in doing things Not at all 05/07/2025 10:00 AM Sridevi Denson M A Feeling down, depressed, or hopeless Not at all 05/07/2025 10:00 AM Sridevi Denson M A Patient Health Questionnaire -2 Score 0 05/07/2025 10:00 AM CHRISTOPHERT Sridevi Hobson M A * Question Answer Date of Assessment Author Trouble falling or staying asleep, or sleeping too much Not at all 05/07/2025 10:00 AM Sridevi Denson MA Feeling tired or having otilio le energy Not at all 05/07/2025 10:00 AM Sridevi Denson M A Poor appetite or overeating Not at all 05/07/2025 10 :00 AM Sridevi Denson MA Feeling bad about yourself - or that you are a failure or have let yourself or your family down Several days 05/07/2025 10:00 AM Sridevi Denson M A Trouble concentrating on things, such as reading the newspaper or watching television Not at all 05/07/2025 10:00 AM Sridevi Denson M A Moving or speaking so slowly that other people could have noticed? Or the opposite - being so fidgety or restless that you have been moving around a lot more than usual. Not at all 05/07/2025 10:00 AM Sridevi Denson MA Thoughts that you would be better off or hurting yourself in some way Not at all 05/07/2025 10:00 AM Sridevi Denson MA Patient Health Questionnaire -9 Score 1 05/07/2025 10:00 AM Sridevi Denson M A documented as of this encounter Progress Notes * Khoa Godinez MD - 05/07/2025 11:00 AM EDT Images from the original note were not included. Manuel Balderas is a 75 y.o. male presents with chief complaint of Annual Exam HPI: History of Present Illness I have reviewed and reconciled the history and medication list with the patient today. CURRENT PCP/CARE TEAM: Patient Care Team: Khoa Godinez MD as PCP - General (Family Medicine) Khoa Godinez MD as PCP - ACO Reach Jude Beach MD as Referring Physician (Urology) Tiffanie Smyth DPM as Referring Physician (Podiatry) Larissa Leavitt RN as Registered Nurse (Family Medicine) Callie Mora MD as Referring Physician (General Surgery) Skinny White MD as Referring Physician (Ophthalmology) Shani Mohan DO as Referring Physician (Neurology) Over the past 2 weeks, how often have you been bothered by any of the following problems? Little interest or pleasure in doing things: Not at all Feeling down, depressed, or hopeless: Not at all Patient Health Questionnaire-2 Score: 0 Over the past 2 weeks, how often have you been bothered by any of the following problems? Trouble falling or staying asleep, or sleeping too much: Not at all Feeling tired or having little energy: Not at all Poor appetite or overeating: Not at all Feeling bad about yourself - or that you are a failure or have let yourself or your family down: Several days Trouble concentrating on things, such as reading the newspaper or watching television: Not at all Moving or speaking so slowly that other people could have noticed? Or the opposite - being so fidgety or restless that you have been moving around a lot more than usual.: Not at all Thoughts that you would be better off or hurting yourself in some way: Not at all Patient Health Questionnaire-9 Score: 1 Health Risk Assessment Form Do you need help eating, bathing, using the toilet, dressing, or getting around your home?: No Can you prepare your own meals?: Yes Can you do your own housework without help?: Yes Can you shop for groceries or clothes without help?: Yes Do you exercise for about 20 minutes 3 or more days a week?: Yes How confident are you that you can control and manage most of your health problems?: Very confident Can you mange your money, credit cards and accounts, pay bills and taxes?: Yes Vision Screening: Yes, patient sees regular chin strap sewer/paleontology teacher Hearing Screening: Not done Cognitive Screening Self Assessment: No concerns rasied by family members, friends, or caretakers Three Word Registration: Banana, [place], Chair Clock Drawing: Normal Clock - 2 Three Word Recall: 2/3 words correct - 2 Total Score (0-5 Points): 4 Pain Assessment Pain Score: 2 HISTORIES: PAST MEDICAL HISTORY: Past Medical History: Diagnosis Date Acute deep vein thrombosis (DVT) of tibial vein of left lower extremity (HCC) Acute infective polyneuritis (HCC) Back pain severe polyneuropathy and polyradiculopathy- likely due to DM. also has chronic back pain. improvedwith meds. Symptoms have improved with gabapentin. 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, presbyopia, astigmatism, myopia Cellulitis 01/2024 BL lower extremities 3 day hospital stay Chronic ulcer of left foot limited to breakdown of skin (HCC) Chronic ulcer of left foot limited to breakdown of skin (HCC) Deep vein thrombosis (DVT) of left lower extremity (HCC) 07/28/2023 Degenerative disc disease, lumbar Diabetes (HCC) Diabetes mellitus (HCC) without mention of complication, type II or unspecified type, uncontrolled Disorder of lipoid metabolism unspecified Diverticulosis of colon without hemorrhage Essential hypertension unspecified Facet arthritis of lumbar region Fibromyalgia Hyperlipidemia Hypertension Iron deficiency anemia refractory to iron therapy Kidney calculi Kidney stones Malaise and fatigue Microalbuminuric diabetic nephropathy (HCC) Morbid obesity ([facility]-HCC) Neuropathy Polyneuropathy with improvement with gabapentin. he cannot walk for long distances due to fatigue and weakness and is afraid of falling. He is having some balance difficulty possibly due to the gabapentin and will decrease med to see if there is improvement Non-pressure chronic ulcer of other part of left foot limited to breakdown of skin (HCC) Obesity Obstructive sleep apnea (adult) (pediatric) Obstructive sleep apnea on CPAP 2009 Peripheral neuropathy Peripheral vascular disease Personal history of medical treatment 2009 infection in foot surgery Polyneuropathy Polyradiculopathy Radiculopathy, lumbosacral region Right bundle branch block Rotator cuff tear, left Skin ulcer of toe of left foot with fat layer exposed (HCC) Type 2 diabetes mellitus with diabetic nephropathy, without long-term current use of insulin (HCC) Type 2 diabetes mellitus with diabetic neuropathic arthropathy, without long- term current use of insulin (HCC) Type II diabetes mellitus with neurological manifestations not at goal (HCC) Ulcer of left foot with fat layer exposed (HCC) Weakness SURGICAL HISTORY: Past Surgical History: Procedure Laterality Date ANKLE [...] 1 of the Coflex devices., [place], [facility] [place] CUFF REPAIR Left 2000 anterior stabilization SPINAL CORD DECOMPRESSION 04/2021 Lumbar SOCIAL HISTORY: Social History Tobacco Use Smoking status: Never Vaping Use Vaping status: Never Used Substance Use Topics Alcohol use: Never Comment: Caffeine intake: none Drug use: Never Depression: Not at risk (05/07/2025) PHQ-2 PHQ-2 Score: 0 FAMILY HISTORY: Family History Problem Relation Name Age of Onset Diabetes Mother Renee Other (NonHodgkins Lymphoma) Father No Known Problems Sister No Known Problems Brother No Known Problems Daughter MEDICATIONS: Current Outpatient Medications Medication Instructions allopurinol (ZYLOPRIM) 300 mg, Daily aspirin 81 mg, Daily biotin 24157 MCG tablet 1 tablet, 2 times daily Blood Glucose Monitoring Suppl (Blood Glucose Monitoring 333) device 1 Device, Continuous dapagliflozin (FARXIGA) 10 mg, Oral, Daily doxycycline (MONODOX) 100 mg, Oral, Daily DULoxetine (CYMBALTA) 30 mg, 2 times daily fenofibrate (TRIGLIDE) 160 mg, Oral, Daily ferrous sulfate 325 mg, Daily with breakfast Flomax 0.4 mg, Every evening Glucose Blood (Blood Glucose Test Strips 333) strip 1 strip, In Vitro, 2 times daily before meals hydroCHLOROthiazide (HYDRODIURIL) 25 mg, Oral, Every evening insulin glargine (Basaglar KwikPen) 100 UNIT/ML pen INJECT BID, SLIDING BLOOD GLUCOSE SCALE WITH THE COVERAGE: <70, ZERO AND EAT. 70-150, 10 UNITS. 151-200, 14 UNITS. 201-250, 16 UNITS. 251-300, 18 UNITS. >300, 20 UNITS Lancets misc 1 Lancet , Does not apply, 2 times daily before meals losartan-hydroCHLOROthiazide (Hyzaar) 100-12.5 MG tablet 1 tablet, Oral, Daily Lutein 20 MG tablet Every 24 hours metFORMIN (GLUCOPHAGE) 1,000 mg, Oral, 2 times daily with meals metoprolol tartrate (LOPRESSOR) 50 mg, Oral, 2 times daily pen needle 32G x 6 mm misc Use for Injection subcutaneous twice daily sodium bicarbonate 650 MG tablet 3 tablets, 2 times daily spironolactone (Aldactone) 25 MG tablet 2 tablets in Am and 1 tablet in PM VESIcare 10 mg, Daily ALLERGIES: Allergies Allergen Reactions Meperidine Other Reaction(s): Other: See Comments shakes Meperidine Hcl Other Reaction(s): Shakes, shakes Pioglitazone Swelling PHYSICAL EXAM: Visit Vitals BP 120/68 Pulse 71 Ht 6' 1 Wt 281 lb SpO2 96% BMI 37.07 kg/m?? Smoking Status Never BSA 2.56 m?? BP Readings from Last 3 Encounters: 05/07/25 120/68 04/26/25 124/70 08/08/24 130/84 Wt Readings from Last 3 Encounters: 05/07/25 281 lb 04/26/25 281 lb 04/05/25 281 lb Physical Exam The patient is pleasant and in no acute distress The patient has good eye contact and clear speech Results ASSESSMENT AND PLAN: Assessment/Plan 1. Encounter for Medicare annual wellness exam (Primary) The patient is here for their Annual Medicare Wellness visit. Demographics were updated. Self-assessment was completed and reviewed. Past medical, family, and social history were updated. The medication list updated and reviewed by the doctor. A list of other current medical providers is established and updated. Time was spent discussing health maintenance issues, ordering testing as appropriate,and a schedule was reviewed regarding recommended screening. We discussed safety issues and fall risk. Depression screening was completed and addressed as appropriate. Fall screening was completed and addressed. Cognitive function was assessed by direct observation, cognitive screening as indicated, and assessment of ability to perform ADL's. The BMI and discussed. Major risk factors for chronic disease including family history were discussed. An after visit summary is made available to the patient 2. Advance directive in chart No changes to advanced directives 3. Encounter for screening for other disorder Clinically insignificant depression screening 4. Screening for alcohol problem Negative alcohol screen 5. 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 - Glucose Blood (Blood Glucose Test Strips 333) strip; 1 strip by In Vitro route in the morning and1 strip in the evening. Take before meals. Dispense: 200 strip; Refill: 3 - Lancets misc; 1 Lancet in the morning and 1 Lancet in the evening. Take before meals. Dispense: 200 each; Refill: 3 6. Diabetic neuropathic arthropathy (HCC) Chronic problem, stable, monitor longitudinally. 7. Type 2 diabetes mellitus with diabetic neuropathic arthropathy, with long- term current use of insulin (HCC) Chronic problem, stable, monitor longitudinally. 8. Chronic ulcer of left foot limited to breakdown of skin (HCC) Chronic problem, stable, monitor longitudinally. 9. Morbid obesity due to excess calories ([facility]-HCC) Chronic problem, stable, monitor longitudinally. 10. Type 2 diabetes mellitus with foot ulcer (CODE) (HCC) Chronic problem, stable, monitor longitudinally. 11. Thrombocytopenia Chronic problem, stable, monitor longitudinally. documented in this encounter Plan of Treatment Upcoming Encounters Date Type Department Care Team (Late st Contact Info) Description 07/12/2025 1:00 PM EDT Procedure Visit [facility] [address] [place] [id number] Tiffanie Smyth, DPM [address] [place], [place] [id number] 10/22/2025 2:30 PM EST Office Visit [facility] [address] [facility] 100 [place] [address] Khoa Godinez MD 112 [facility] 100 [place] [address] (Fax) documented as of this encounter Visit Diagnoses Diagnosis Encounter for Medicare annual wellness exam- Primary Advance directive in chart Encounter for screening for other disorder Screening for alcohol problem Screening for alcoholism 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) Type II or unspecified type diabetes mellitus with neurological manifestations, not stated as uncontrolled Type 2 diabetes mellitus with diabetic neuropathic arthropathy, with long-term current use of insulin (HCC) Chronic ulcer of left foot limited to breakdown of skin (HCC) Morbid obesity due to excess calories ([facility]-HCC) Type 2 diabetes mellitus with foot ulcer (CODE) (HCC) Thrombocytopenia Unspecified thrombocytopenia documented in this encounter Additional Health Concerns Assessment Noted Time PHQ-9 Depression Total Score: 1 05/07/20 25 10:00 AM EDT documented as of this encounter Care Teams Airport Ramp Supervisor Relationship Specialty Start Date End Date Khoa Godinez MD 112 [facility] 100 [place] [address] (Fax) PCP - ACO Reach 12/31/23 Khoa Godinez MD 112 [facility] 100 [place] [address] PCP - General Family Medicine 12/27/24 Jude Beach MD [address] [place] [address] Referring Physician Urology 12/09/23 Tiffanie Smyth DPM [address] [place] [address] Referring Physician Podiatry 12/09/23 Larissa Leavitt, RN [address] [facility] 230 [place] [address] Registered Nurse Family Medicine 02/13/25 Callie Mora MD [address] [place] [address] Referring Physician General Surgery 05/07/25 Skinny White MD 26[address] [place] [address] Referring Physician Ophthalmology 05/07/25 Shani Mohan DO 703 [facility] 353 [place] [address] Referring Physician Neurology 05/07/25 documented as of this encounter
--- OUTSIDE RECORDS SUMMARY | 2025-05-15 12:40 | XMS_ITS | Encounter Summary ---
Author Organization [facility] Address [address] [place] [address] Care Team Providers Care Horse Racing Analyst Name Role Phone Khoa Godinez MD Primary Care Provider + [phone] Jude Beach MD Unavailable [phone] Tiffanie Smyth DPM Unavailable [phone] Khoa Godinez MD Unavailable [phone] Khoa Godinez MD Primary Care Provider [phone] Larissa Leavitt RN Unavailable [phone] Callie Mora MD Unavailable [phone] Skinny White MD Unavailable [phone] Shani Mohan DO Unavailable [phone] Reason for Visit * Reason Onset Date Comments Med Refill 02/10/2024 Encounter Details Date Type Department Care Team (Late st Contact Info) Description 02/10/2024 Refill [facility] [address] [place] [address] Khoa Godinez MD [address] [place] [address] (Fax) Lymphedema of both lower extremities Social [...] Visit [facility] [address] [place] [address] Tiffanie Smyth DPM [address] [place] [address] 10/22/2025 2:30 PM EST Office Visit [facility] [address] [place] [address] Khoa Godinez MD [address] [place] [address] (Fax) documented as of this encounter Visit Diagnoses Diagnosis Lymphedema of both lower extremities documented in this encounter Care Teams Horse Racing Analyst Relationship Specialty Start Date End Date Khoa Godinez MD (Fax) PCP - General Family Medicine 04/08/23 09/12/24 Khoa Godinez MD [address] [place] [address] (Fax) PCP - ACO Reach 12/31/23 Khoa Godinez MD [address] [place] [address] (Fax) PCP - General Family Medicine 12/27/24 Jude Beach MD [address] [place] [address] Referring Physician Urology 12/09/23 Tiffanie Smyth DPM [address] [facility] [place] [address] Referring Physician Podiatry 12/09/23 Larissa Leavitt, RN [address] [facility] 230 [place] [address] Registered Nurse Family Medicine 02/13/25 Callie Mora MD [address] [place] [address] Referring Physician General Surgery 05/07/25 Skinny White MD 26[address] [place] [address] Referring Physician Ophthalmology 05/07/25 Shani Mohan DO [address] [id number] Referring Physician Neurology 05/07/25 documented as of this encounter
--- OUTSIDE RECORDS SUMMARY | 2025-05-15 12:40 | XMS_ITS | Encounter Summary ---
Author Organization [facility] Address [address] [facility] [place] [address] Care Team Providers Care Sprinkler Fitter Apprentice Name Role Phone Khoa Godinez MD Primary Care Provider + [phone] Jude Beach MD Unavailable [phone] Tiffanie Smyth DPM Unavailable [phone] Khoa Godinez MD Unavailable [phone] Khoa Godinez MD Primary Care Provider [phone] Larissa Leavitt RN Unavailable [phone] Callie Mora MD Unavailable [phone] Skinny White MD Unavailable [phone] Shani Mohan DO Unavailable [phone] Encounter Details Date Type Department Care Team (Late st Contact Info) Description 02/27/2024 Orders Only [facility] [address] [place] [address] Khoa Godinez MD [address] [place] [address] (Fax) Social History Tobacco Use Types Packs/Day [...] Visit [facility] [address] [place] [address] Tiffanie Smyth DPM [address] [place] [address] 10/22/2025 2:30 PM EST Office Visit [facility] [address] [place] [address] Khoa Godinez MD [address] [place] [address] documented as of this encounter Visit Diagnoses Not on filedocumented in this encounter Care Teams Sprinkler Fitter Apprentice Relationship Specialty Start Date End Date Khoa Godinez MD (Fax) PCP - General Family Medicine 04/08/23 09/12/24 Khoa Godinez MD [address] [place] [address] PCP - ACO Reach 12/31/23 Khoa Godinez MD [address] [place] [address] (Fax) PCP - General Family Medicine 12/27/24 Jude Beach MD [address] [place] [address] Referring Physician Urology 12/09/23 Tiffanie Smyth DPM [address] [place] [address] Referring Physician Podiatry 12/09/23 Larissa Leavitt, RN [address] [facility] 230 [place] [address] Registered Nurse Family Medicine 02/13/25 Callie Mora MD [address] [facility] [place] [address] Referring Physician General Surgery 05/07/25 Skinny White MD [address] [place] [address] Referring Physician Ophthalmology 05/07/25 Shani Mohan DO [address] [place] [phone] Referring Physician Neurology 05/07/25 documented as of this encounter
--- OUTSIDE RECORDS SUMMARY | 2025-05-15 12:40 | XMS_ITS | Encounter Summary ---
Author Organization [facility] Address [address] [place] [address] Care Team Providers Care Fish Bin Tender Name Role Phone Khoa Godinez MD Primary Care Provider + [phone] Jude Beach MD Unavailable [phone] Tiffanie Smyth DPM Unavailable [phone] Khoa Godinez MD Unavailable [phone] Khoa Godinez MD Primary Care Provider [phone] Larissa Leavitt RN Unavailable [phone] Callie Mora MD Unavailable [phone] Skinny White MD Unavailable [phone] Shani Mohan DO Unavailable [phone] Encounter Details Date Type Department Care Team (Late st Contact Info) Description 02/25/2024 Orders Only [facility] [address] [place] [address] [place] [address] [place] [address] Social History Tobacco Use Types [...] EDT Procedure Visit [facility] [address] [place] [address] Tiffanie Smyth, DPM [address] [place] [address] 10/22/2025 2:30 PM EST Office Visit [facility] [address] [place] [address] Khoa Godinez MD [address] [place] [address] (Fax) documented as of this encounter Procedures Procedure [...] on filedocumented in this encounter Care Teams Fish Bin Tender Relationship Specialty Start Date End Date Khoa Godinez MD (Fax) PCP - General Family Medicine 04/08/23 09/12/24 Khoa Godinez MD [address] [place] [address] (Fax) PCP - ACO Reach 12/31/23 Khoa Godinez MD [address] [place] [address] (Fax) PCP - General Family Medicine 12/27/24 Jude Beach MD [address] [place] [address] Referring Physician Urology 12/09/23 Tiffanie Smyth, DPM [address] [place] [address] Referring Physician Podiatry 12/09/23 Larissa Leavitt, RN [address] [facility] 230 [place] [address] Registered Nurse Family Medicine 02/13/25 Callie Mora MD [address] [place] [address] Referring Physician General Surgery 05/07/25 Skinny White MD [address] [place] [address] Referring Physician Ophthalmology 05/07/25 Shani Mohan DO [address] [address] Referring Physician Neurology 05/07/25 documented as of this encounter
--- OUTSIDE RECORDS SUMMARY | 2025-05-15 12:40 | XMS_ITS | Encounter Summary ---
Author Organization [facility] Address [address] [facility] [place] [address] Care Team Providers Care Loss Prevention Officer Name Role Phone Khoa Godinez MD Primary Care Provider + [phone] Jude Beach MD Unavailable +[phone] Tiffanie Smyth DPM Unavailable +[phone] Khoa Godinez MD Unavailable +[phone] Khoa Godinez MD Primary Care Provider +-[phone] Larissa Leavitt RN Unavailable +[phone] Callie Mora MD Unavailable +[phone] Skinny White MD Unavailable +[phone] Shani Mohan DO Unavailable [phone] Encounter Details Date Type Department Care Team (Late st Contact Info) Description 02/21/2024 Abstract [facility] [address] [place] [address] Khoa Godinez MD [address] [place] [address] Social History Tobacco Use Types Packs/Day Years [...] Procedure Visit [facility] [address] [place] [address] Tiffanie Smyth DPM 1900 [place] [address] 10/22/2025 2:30 PM EST Office Visit [facility] [address] [place] [address] Khoa Godinez MD [address] [place] [address] documented as of this encounter Visit Diagnoses Not on filedocumented in this encounter Care Teams Loss Prevention Officer Relationship Specialty Start Date End Date Khoa Godinez MD (Fax) PCP - General Family Medicine 04/08/23 09/12/24 Khoa Godinez MD [address] [place] [address] (Fax) PCP - ACO Reach 12/31/23 Khoa Godinez MD [address] [place] [address] (Fax) PCP - General Family Medicine 12/27/24 Jude Beach MD [address] [place] [address] Referring Physician Urology 12/09/23 Tiffanie Smyth DPM [address] [place] [address] Referring Physician Podiatry 12/09/23 Larissa Leavitt, RN [address] [facility] [address] [place] [address] Registered Nurse Family Medicine 02/13/25 Callie Mora MD 595 [place] [address] Referring Physician General Surgery 05/07/25 Skinny White MD [address] [place] [address] Referring Physician Ophthalmology 05/07/25 Shani Mohan DO [address] [phone] Referring Physician Neurology 05/07/25 documented as of this encounter
--- OUTSIDE RECORDS SUMMARY | 2025-05-15 12:40 | XMS_ITS | Encounter Summary ---
Author Organization [facility] Address [address] [place] [address] Care Team Providers Care Product Responsibility Liaison Name Role Phone Khoa Godinez MD Primary Care Provider + [phone] uJde Beach MD Unavailable +[phone] Tiffanie Smyth DPM Unavailable +[phone] Khoa Godinez MD Unavailable +[phone] Khoa Godinez MD Primary Care Provider +-[phone] Larissa Leavitt RN Unavailable +[phone] Callie Mora MD Unavailable +[phone] Skinny White MD Unavailable +[phone] Shani Mohan DO Unavailable [phone] Encounter Details Date Type Department Care Team (Late st Contact Info) Description 02/08/2024 Orders Only [facility] [address] [place] [address] Calvin Wallace DO [address] [place] [address] Social History Tobacco Use Types Packs/Day Years [...] Procedure Visit [facility] [address] [place] [address] Tiffanie Smyth, DPM [address] [place] [address] 10/22/2025 2:30 PM EST Office Visit [facility] 100 [address] [facility] [address] [place] [address] Khoa Godinez MD [address] [place] [facility] 100 [place] [address] (Fax) documented as of this encounter Procedures [...] on filedocumented in this encounter Care Teams Product Responsibility Liaison Relationship Specialty Start Date End Date Khoa Godinez MD (Fax) PCP - General Family Medicine 04/08/23 09/12/24 Khoa Godinez MD [address] [place] [address] PCP - ACO Reach 12/31/23 Khoa Godinez MD [address] [place] [facility] [address] [place], [place] [address] PCP - General Family Medicine 12/27/24 Jude Beach MD [address] [place] [address] Referring Physician Urology 12/09/23 Tiffanie Smyth, DPM [address] [place], [place] [address] Referring Physician Podiatry 12/09/23 Larissa Leavitt, RN [address] [facility] 230 [place] [address] Registered Nurse Family Medicine 02/13/25 Callie Mora MD 595 [place] [address] Referring Physician General Surgery 05/07/25 Skinny White MD 2600 [place] [address] Referring Physician Ophthalmology 05/07/25 Shani Mohan DO [address] [address] Referring Physician Neurology 05/07/25 documented as of this encounter
--- OUTSIDE RECORDS SUMMARY | 2025-05-15 12:40 | XMS_ITS | Encounter Summary ---
Author Organization [facility] Address [address] [place] [address] Care Team Providers Care Community Recreation Coordinator Name Role Phone Neli Bowles MD Primary Care Provider + [phone] Jude Beach MD Unavailable +[phone] Tiffanie Smyth DPM Unavailable +[phone] Neli Bowles MD Unavailable +[phone] Neli Bowles MD Primary Care Provider +-[phone] Larissa Leavitt RN Unavailable +[phone] Callie Mora MD Unavailable +[phone] Skinny White MD Unavailable +[phone] Shani Mohan DO Unavailable [phone] Encounter Details Date Type Department Care Team (Late Contact Info) Description 03/22/2024 Clinisync Result Encounter [...] EDT Procedure Visit [facility] [address] [place] [address] Tiffanie Smyth, DPM [address] [place] [address] 10/22/2025 2:30 PM EST Office Visit [facility] [address] [place] [address] Neli Bowles MD [address] [place] [address] documented as of this encounter Procedures Procedure Name Priority Date/Time Associated Diagnosis Comments VC EXT VENOUS REFLUX ROSE MARY LMTD 03/22/2024 8:57 AM EDT documented in this encounter Results * VC EXT VENOUS REFLUX ROSE MARY LMTD (03/22/2024 8:57 AM EDT) Anatomical Region Laterality Modality Other 03/22/2024 8:57 AM EDT Narrative 03/22/2024 8:58 AM EDT [address] [address] Vein Report Signed Patient: MANUEL BALDERAS MR#: [id number] : 1950 Acct:[id number] Age/Sex: 73 / M ADM Date: 03/20/24 Loc: VC Attending Dr: Callie Mora M.D. Ordering Physician: Callie Mora M.D. Date of Service: 03/20/24 Procedure(s): VC EXT Venous Reflux ROSE MARY LMTD Accession Number(s): [id number] cc: NELI BOWLES ; Callie Mora M.D. Patient Name: MANUEL BALDERAS MR#: [id number] : 1950 Exam Date: 03/20/2024 Ordering Doctor: [...] calf GSV. Flow: Mild deep venous reflux. 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 Hekm-le-dyyzqjzk right anterior accessory saphenous vein venous insufficiency with borderline dilatation 5. Mild bilateral deep vein reflux 6. Bilateral popliteal fossa collections likely representing popliteal cysts 7. Bilateral incompetent varicose veins 1. Dictated by: Mikie Latham MD on 03/22/2024 at 08:54 Approved by: Mikie Latham MD on 03/22/2024 at 08:57 Dictated By: Mikie Latham M.D. Signed By: 03/22/24 0858 DD/ 0857 TD/TT: [employer] Programmer: Procedure Note Radiology, Radiologist, - 03/22/2024 [place] [address] Vein Report Signed Patient: MANUEL BALEDRAS JMR#: [id number] : 1950Acct:[id number] Age/Sex: 73 / MADM Date: 03/20/24 Loc: VC Attending Dr: Callie Mora M.D. Ordering Physician: Callie Mora M.D. Date of Service: 03/20/24 Procedure(s): VC EXT Venous Reflux ROSE MARY LMTD Accession Number(s): [id number] cc: NELI BOWLES ; Callie Mora M.D. Patient Name: MANUEL BALDERAS MR#: [id number] : 1950 Exam Date: 03/20/2024 Ordering Doctor: [...] calf GSV. Flow: Mild deep venous reflux. 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 Eepy-ev-nqkoehni right anterior accessory saphenous vein venous insufficiency with borderline dilatation 5. Mild bilateral deep vein reflux 6. Bilateral popliteal fossa collections likely representing poplitealcysts 7. Bilateral incompetent varicose veins 1. Dictated by: Mikie Latham MD on 03/22/2024 at 08:54 Approved by: Mikie Latham MD on 03/22/2024 at 08:57 Dictated By: Mikie Latham M.D. Signed By:03/22/24 0858 DD/ 0857 TD/TT: [employer] Programmer: [facility] External Data Provider [facility] Final Result documented in this encounter Visit Diagnoses Not on filedocumented in this encounter Care Teams Community Recreation Coordinator Relationship Specialty Start Date End Date Neli Bowles MD PCP - General Family Medicine 04/08/23 09/12/24 Neli Bowles MD [address] [address] PCP - ACO Reach 12/31/23 Neli Bowles MD [address] [address] PCP - General Family Medicine 12/27/24 Jude Beach MD [address] [place] [address] Referring Physician Urology 12/09/23 Tiffanie Smyth DPM [address] [place] [address] Referring Physician Podiatry 12/09/23 Larissa Leavitt, RN [address] [facility] 230 [place] [address] Registered Nurse Family Medicine 02/13/25 Callie Mora MD [address] [facility] [place], [place] [address] Referring Physician General Surgery 05/07/25 Skinny White MD 2600 [place] [address] Referring Physician Ophthalmology 05/07/25 Shani Mohan DO 703 [facility] 353 [place] [address] Referring Physician Neurology 05/07/25 documented as of this encounter
--- OUTSIDE RECORDS SUMMARY | 2025-05-15 12:40 | XMS_ITS | Encounter Summary ---
Author Organization [facility] Address [address] [place] [address] Care Team Providers Care Rest Room Matron Name Role Phone Khoa Godinez MD Primary Care Provider + [phone] Jude Beach MD Unavailable +[phone] Tiffanie Smyth DPM Unavailable +[phone] Khoa Godinez MD Unavailable [phone] Khoa Godinez MD Primary Care Provider +-[phone] Larissa Leavitt RN Unavailable +[phone] Callie Mora MD Unavailable +[phone] Skinny White MD Unavailable +[phone] Shani Mohan DO Unavailable [phone] Encounter Details Date Type Department Care Team (Late st Contact Info) Description 02/09/2024 Abstract [facility] [address] [place] [address] Daron Saenz MD [address] [place] [address] Social History Tobacco Use Types Packs/Day Years [...] Procedure Visit [facility] [address] [place] [address] Tiffanie Smyth DPM [address] [place] [address] 10/22/2025 2:30 PM EST Office Visit [facility] [address] [place] [address] Khoa Godinez MD [address] [place] [address] (Fax) documented as of this encounter Visit Diagnoses Not on filedocumented in this encounter Care Teams Rest Room Matron Relationship Specialty Start Date End Date Khoa Godinez MD (Fax) PCP - General Family Medicine 04/08/23 09/12/24 Khoa Godinez MD [address] [place] [address] (Fax) PCP - ACO Reach 12/31/23 Khoa Godinez MD [address] [place] [address] (Fax) PCP - General Family Medicine 12/27/24 Jude Beach MD [address] [place] [address] Referring Physician Urology 12/09/23 Tiffanie Smyth DPM [address] [place] [address] Referring Physician Podiatry 12/09/23 Larissa Leavitt, RN [address] [facility] 230 [place] [address] Registered Nurse Family Medicine 02/13/25 Callie Mora MD 595 [facility] [place] [address] Referring Physician General Surgery 05/07/25 Skinny White MD [address] [place] [address] Referring Physician Ophthalmology 05/07/25 Shani Mohan DO 703 [facility] 353 [place] [address] Referring Physician Neurology 05/07/25 documented as of this encounter
--- OUTSIDE RECORDS SUMMARY | 2025-05-15 12:40 | XMS_ITS | Encounter Summary ---
Author Organization [facility] Address [address] [facility] [place] [address] Care Team Providers Care Resort Host Name Role Phone Khoa Godinez MD Primary Care Provider + [phone] Jude Beach MD Unavailable +[phone] Tiffanie Smyth DPM Unavailable +[phone] Khoa Godinez MD Unavailable +[phone] Khoa Godinez MD Primary Care Provider +-[phone] Larissa Leavitt RN Unavailable +[phone] Callie Mora MD Unavailable +[phone] Skinny White MD Unavailable +[phone] Shani Mohan DO Unavailable [phone] Encounter Details Date Type Department Care Team (Late st Contact Info) Description 02/21/2024 Abstract [facility] [address] [place] [address] Khoa Godinez MD [address] [place] [address] Social History Tobacco Use Types Packs/Day Years [...] Procedure Visit [facility] [address] [place] [address] Tiffanie Smyth DPM [address] [place] [address] 10/22/2025 2:30 PM EST Office Visit [facility] [address] [place] [address] Khoa Godinez MD [address] [place] [address] documented as of this encounter Visit Diagnoses Not on filedocumented in this encounter Care Teams Resort Host Relationship Specialty Start Date End Date Khoa Godinez MD (Fax) PCP - General Family Medicine 04/08/23 09/12/24 Khoa Godienz MD [address] [place] [address] (Fax) PCP - ACO Reach 12/31/23 Khoa Godinez MD [address] [place] [address] (Fax) PCP - General Family Medicine 12/27/24 Jude Beach MD [address] [place] [address] Referring Physician Urology 12/09/23 Tiffanie Smyth DPM [address] [place] [address] Referring Physician Podiatry 12/09/23 Larissa Leavitt, RN [address] [facility] 230 [place] [address] Registered Nurse Family Medicine 02/13/25 Callie Mora MD 595 [place] [address] Referring Physician General Surgery 05/07/25 Skinny White MD [address] [place] [address] Referring Physician Ophthalmology 05/07/25 Shani Mohan DO [address] [phone] Referring Physician Neurology 05/07/25 documented as of this encounter
--- OUTSIDE RECORDS SUMMARY | 2025-05-15 12:40 | XMS_ITS | Encounter Summary ---
Author Organization [facility] Address [address] [place] [address] Care Team Providers Care Ambulatory Services Representative Name Role Phone Khoa Godinez MD Primary Care Provider + [phone] Jude Beach MD Unavailable +[phone] Tiffanie Smyth DPM Unavailable +[phone] Khoa Godinez MD Unavailable [phone] Khoa Godinez MD Primary Care Provider +[phone] Larissa Leavitt RN Unavailable +[phone] Callie Mora MD Unavailable +[phone] Skinny White MD Unavailable +[phone] Shani Moahn DO Unavailable [phone] Reason for Visit * Reason Comments Med Refill Encounter Details Date Type Department Care Team (Late st Contact Info) Description 01/26/2024 Refill [facility] [address] [facility] [place] [address] Khoa Godinez MD 112 [facility] [address] [place] [address] (Fax) Type 2 diabetes mellitus with hyperglycemia, [...] Procedure Visit [facility] [address] [address] Tiffanie Smyth, DPM [address] [place], [place] [address] 10/22/2025 2:30 PM EST Office Visit [facility] [address] [place] [address] Khoa Godinez MD [address] [facility] [address] [place] [address] (Fax) documented as of this encounter Visit Diagnoses Diagnosis Type 2 diabetes mellitus with hyperglycemia, without long-term current use of insulin (HCC) documented in this encounter Care Teams Ambulatory Services Representative Relationship Specialty Start Date End Date Khoa Godinez MD (Fax) PCP - General Family Medicine 04/08/23 09/12/24 Khoa Godinez MD [address] [facility] [address] [place] [address] (Fax) PCP - ACO Reach 12/31/23 Khoa Godinez MD [address] [facility] [address] [place] [address] (Fax) PCP - General Family Medicine 12/27/24 Jude Beach MD [address] [place] [address] Referring Physician Urology 12/09/23 Tiffanie Smyth DPM 1900 [place] [address] Referring Physician Podiatry 12/09/23 Larissa Leavitt, RN [address] [facility] 230 [place] [address] Registered Nurse Family Medicine 02/13/25 Callie Mora MD [address] [place] [address] Referring Physician General Surgery 05/07/25 Skinny White MD 2600 [place] [address] Referring Physician Ophthalmology 05/07/25 Shani Mohan DO [address] [address] Referring Physician Neurology 05/07/25 documented as of this encounter
--- OUTSIDE RECORDS SUMMARY | 2025-05-15 12:40 | XMS_ITS | Encounter Summary ---
Author Organization [facility] Address [address] [place] [address] Care Team Providers Care Gas Flow Regulator Name Role Phone Khoa Godinez MD Primary Care Provider + [phone] Jude Beach MD Unavailable +[phone] Tiffanie Smyth DPM Unavailable +[phone] Khoa Godinez MD Unavailable +[phone] Khoa Godinez MD Primary Care Provider +[phone] Larissa Leavitt RN Unavailable +[phone] Callie Mora MD Unavailable +[phone] Skinny Whiet MD Unavailable +[phone] Shani Mohan DO Unavailable [phone] Encounter Details Date Type Department Care Team (Late st Contact Info) Description 02/08/2024 Abstract [facility] [address] [place] [address] Daron Sanez MD [address] [address] Social History Tobacco Use Types Packs/Day Years [...] Procedure Visit [facility] [address] [address] Tiffanie Smyth DPM [address] [place] [address] 10/22/2025 2:30 PM EST Office Visit [facility] [address] [place] [address] Khoa Godinez MD [address] [place] [address] (Fax) documented as of this encounter Visit Diagnoses Not on filedocumented in this encounter Care Teams Gas Flow Regulator Relationship Specialty Start Date End Date Khoa Godinez MD (Fax) PCP - General Family Medicine 04/08/23 09/12/24 Khoa Godinez MD [address] [place] [address] (Fax) PCP - ACO Reach 12/31/23 Khoa Godinez MD [address] [place] [address] (Fax) PCP - General Family Medicine 12/27/24 Jude Beach MD [address] [place] [address] Referring Physician Urology 12/09/23 Tiffanie Smyth DPM [address] [place] [address] Referring Physician Podiatry 12/09/23 Larissa Leavitt, RN [address] [facility] 230 [place] [address] Registered Nurse Family Medicine 02/13/25 Callie Mora MD 595 [facility] [place] [address] Referring Physician General Surgery 05/07/25 Skinny White MD [address] [place] [address] Referring Physician Ophthalmology 05/07/25 Shani Mohan DO 703 [facility] 353 [place] [address] Referring Physician Neurology 05/07/25 documented as of this encounter
--- OUTSIDE RECORDS SUMMARY | 2025-05-15 12:40 | XMS_ITS | Encounter Summary ---
Author Organization [facility] Address [address] [place] [address] Care Team Providers Care Speech Language Pathologist Assistant Name Role Phone Khoa Godinez MD Primary Care Provider + [phone] Jude Beach MD Unavailable +[phone] Tiffanie Smyth DPM Unavailable [phone] Khoa Godinez MD Unavailable +[phone] Khoa Godinez MD Primary Care Provider +-[phone] Larissa Leavitt RN Unavailable +[phone] Callie Mora MD Unavailable +[phone] Skinny White MD Unavailable +[phone] Shani Mohan DO Unavailable [phone] Encounter Details Date Type Department Care Team (Late st Contact Info) Description 02/08/2024 Abstract [facility] [address] [place] [address] Daron Saenz MD [address] [place] [address] Social History Tobacco Use Types Packs/Day Years [...] Procedure Visit [facility] [address] [place] [address] Tiffanie Smyth DPM 1900 [place] [address] 10/22/2025 2:30 PM EST Office Visit [facility] [address] [place] [address] Khoa Godinez MD [address] [place] [address] documented as of this encounter Visit Diagnoses Not on filedocumented in this encounter Care Teams Speech Language Pathologist Assistant Relationship Specialty Start Date End Date Khoa Godinez MD (Fax) PCP - General Family Medicine 04/08/23 09/12/24 Khoa Godinez MD [address] [place] [address] (Fax) PCP - ACO Reach 12/31/23 Khoa Godinez MD [address] [place] [address] (Fax) PCP - General Family Medicine 12/27/24 uJde Beach MD [address] [place] [address] Referring Physician Urology 12/09/23 Tiffanie Smyth DPM [address] [place] [address] Referring Physician Podiatry 12/09/23 Larissa Leavitt, RN [address] [facility] 230 [place] [address] Registered Nurse Family Medicine 02/13/25 Callie Mora MD 595 [place] [address] Referring Physician General Surgery 05/07/25 Skinny White MD [address] [place] [address] Referring Physician Ophthalmology 05/07/25 Shani Mohan DO [address] [place] [phone] Referring Physician Neurology 05/07/25 documented as of this encounter
--- OUTSIDE RECORDS SUMMARY | 2025-05-15 12:40 | XMS_ITS | Encounter Summary ---
Author Organization [facility] Address [address] [place] [address] Care Team Providers Care Brine Tank Separator Operator Name Role Phone Khoa Godinez MD Primary Care Provider + [phone] Jude Beach MD Unavailable +[phone] Tiffanie Smyth DPM Unavailable +[phone] Khoa Godinez MD Unavailable [phone] Khoa Godinez MD Primary Care Provider +-[phone] Larissa Leavitt RN Unavailable +[phone] Callie Mora MD Unavailable +[phone] Skinny White MD Unavailable [phone] Shani Mohan DO Unavailable [phone] Encounter Details Date Type Department Care Team (Late st Contact Info) Description 02/08/2024 Abstract [facility] [address] [place] [address] Daron Saenz MD [address] [place] [address] Social History Tobacco Use Types Packs/Day Years [...] Procedure Visit [facility] [address] [address] Tiffanie Smyth DPM 1900 [place] [address] 10/22/2025 2:30 PM EST Office Visit [facility] [address] [place] [address] Khoa Godinez MD [address] [place] [address] documented as of this encounter Visit Diagnoses Not on filedocumented in this encounter Care Teams Brine Tank Separator Operator Relationship Specialty Start Date End Date Khoa Godinez MD (Fax) PCP - General Family Medicine 04/08/23 09/12/24 Khoa Godinez MD [address] [place] [address] (Fax) PCP - ACO Reach 12/31/23 Khoa Godinez MD [address] [place] [address] (Fax) PCP - General Family Medicine 12/27/24 Jude Beach MD [address] [place] [address] Referring Physician Urology 12/09/23 Tiffanie Smyth DPM [address] [place] [address] Referring Physician Podiatry 12/09/23 Larissa Leavitt, RN [address] [facility] 230 [place] [address] Registered Nurse Family Medicine 02/13/25 Callie Mora MD 595 [place] [address] Referring Physician General Surgery 05/07/25 Skinny White MD [address] [place] [address] Referring Physician Ophthalmology 05/07/25 Shani Mohan DO [address] [place] [phone] Referring Physician Neurology 05/07/25 documented as of this encounter
--- OUTSIDE RECORDS SUMMARY | 2025-05-15 12:40 | XMS_ITS | Encounter Summary ---
Author Organization [facility] Address [address] [place] [address] Care Team Providers Care Life Skills Coordinator Name Role Phone Khoa Godinez MD Primary Care Provider + [phone] Jude Beach MD Unavailable +[phone] Tiffanie Smyth DPM Unavailable +[phone] Khoa Godinez MD Unavailable +- [phone] Khoa Godinez MD Primary Care Provider +[phone] Larissa Leavitt RN Unavailable +[phone] Callie Mora MD Unavailable [phone] Skinny White MD Unavailable +[phone] Shnai Mohan DO Unavailable [phone] Reason for Visit * Reason Onset Date Comments Med Refill 03/21/2024 Encounter Details Date Type Department Care Team (Late st Contact Info) Description 03/21/2024 Refill [facility] [address] [place] [address] Khoa Godinez MD [address] [place] [address] (Fax) Type 2 diabetes mellitus with hyperglycemia, [...] Visit [facility] [address] [place] [address] Tiffanie Smyth, DPM [address] [place], [place] [address] 10/22/2025 2:30 PM EST Office Visit [facility] [address] [place] [address] Khoa Godinez MD [address] [place] [address] (Fax) documented as of this encounter Visit Diagnoses Diagnosis Type 2 diabetes mellitus with hyperglycemia, without long-term current use of insulin (HCC) documented in this encounter Care Teams Life Skills Coordinator Relationship Specialty Start Date End Date Khoa Godinez MD (Fax) PCP - General Family Medicine 04/08/23 09/12/24 Khoa Godinez MD [address] [facility] 100 [place] [address] (Fax) PCP - ACO Reach 12/31/23 Khoa Godinez MD [address] [facility] 100 [place] [address] (Fax) PCP - General Family Medicine 12/27/24 Jude Beach MD [address] [place] [id number] Referring Physician Urology 12/09/23 Tiffanie Smyth DPM [address] [place], [place] [phone] Referring Physician Podiatry 12/09/23 Larissa Leavitt, RN [address] [facility] [address] [place] [address] Registered Nurse Family Medicine 02/13/25 Callie Mora MD 595 [facility] [place] [address] Referring Physician General Surgery 05/07/25 Skinny White MD 2600 [place] [address] Referring Physician Ophthalmology 05/07/25 Shani Mohan DO 703 [facility] 353 [place] [address] Referring Physician Neurology 05/07/25 documented as of this encounter
--- OUTSIDE RECORDS SUMMARY | 2025-05-15 12:40 | XMS_ITS | Encounter Summary ---
Author Organization [facility] Address [address] [place] [address] Care Team Providers Care Cloth Colors Examiner Name Role Phone Khoa Godinez MD Primary Care Provider + [phone] Jude Beach MD Unavailable +[phone] Tiffanie Smyth DPM Unavailable +[phone] Khoa Godinez MD Unavailable [phone] Khoa Godinez MD Primary Care Provider +[phone] Larissa Leavitt RN Unavailable +[phone] Callie Mora MD Unavailable [phone] Skinny White MD Unavailable [phone] Shani Mohan DO Unavailable [phone] Reason for Visit * Reason Comments Med Refill Encounter Details Date Type Department Care Team (Late st Contact Info) Description 01/27/2024 Refill [facility] [address] [facility] [place] [address] Khoa Godinez MD [address] [place] [address] (Fax) Lymphedema of both lower extremities Social [...] Visit [facility] [address] [place] [address] Tiffanie Smyth DPM [address] [place] [address] 10/22/2025 2:30 PM EST Office Visit [facility] [address] [place] [address] Khoa Godinez MD [address] [place] [address] (Fax) documented as of this encounter Visit Diagnoses Diagnosis Lymphedema of both lower extremities documented in this encounter Care Teams Cloth Colors Examiner Relationship Specialty Start Date End Date Khoa Godinez MD (Fax) PCP - General Family Medicine 04/08/23 09/12/24 Khoa Godinez MD [address] [place] [address] (Fax) PCP - ACO Reach 12/31/23 Khoa Godinez MD [address] [place] [address] PCP - General Family Medicine 12/27/24 Jude Beach MD [address] [place] [address] Referring Physician Urology 12/09/23 Tiffanie Smyth DPM [address] [facility] [place] [address] Referring Physician Podiatry 12/09/23 Larissa Leavitt, CORDELL [address] [facility] 230 [place] [address] Registered Nurse Family Medicine 02/13/25 Callie Mora MD [address] [place] [address] Referring Physician General Surgery 05/07/25 Skinny White MD 2600 [place] [address] Referring Physician Ophthalmology 05/07/25 Shani Mohan DO [address] [phone] Referring Physician Neurology 05/07/25 documented as of this encounter
--- OUTSIDE RECORDS SUMMARY | 2025-05-15 12:40 | XMS_ITS | Clinical Summary ---
Author Organization [facility] Address [address] [place] [address] Care Team Providers Care Bleacher Lard Name Role Phone Unavailable Primary Care Provider Unavailabl e Allergies Active Allergy Reactions Criticality Noted Date Comments Meperidine (Pf) Other: See Comments 02/01/2014 shakes Medications Losartan-[place] chlorothiazide 100-12.5 mg per tablet Take 1 [...] - 1-dose 75+ series) 2025 Influenza Vaccine (#1) 2025 Medical Devices Implanted Type Area Interventional Radiologist Device Identifier Shelf Expiration Date Model / Serial / Lot [id number]-Kind Implant - [id number] Implanted:Qty: 1 on 02/21/2014 at [facility] Implant [employer] [id number] / / Description:[id number] PERCUFLEX STENT Procedures Procedure Name Priority Date/Time Associated Diagnosis Comments BASIC METABOLIC PANEL Routine 02/22/2014 12:44 AM EDT from Last 3 Months or Most Recently Relevant to Health Maintenance Results * (ABNORMAL) BASIC METABOLIC PNL (02/22/2014 12:44 AM EDT) Glucose 101(H) 65 - 100 mg/dL [facility] BUN 22 10 - 25 mg/dL [facility] Creatinine 1.12 0.70 - 1.40 mg/dL [facility] Sodium 139 135 - 146 mmol/L [facility] Potassium 3.8 3.5 - 5.0 mmol/L [facility] Chloride 104 98 - 110 mmol/L [facility] CO2 23 23 - 32 mmol/L [facility] Anion Gap 12 0 - 15 mmol/L [facility] Calcium 8.5 8.5 - 10.5 mg/dL [facility] Blood specimen (specimen) BLOOD SPECIMEN / Unknown 02/22/2014 12:44 AM EDT 02/22/2014 12:45 AM EDT us Burke Clemens MD LABORATORY Final Result [facility] [address] [place] [address] from Last 3 Months or Most Recently Relevant to Health Maintenance Insurance BLUE CARD PPO OOS Advance Directives Documents on File Type Date Recorded Patient Division Chief Expl anation Advance Directive(s) 02/09/2014 11:20 AM
--- OUTSIDE RECORDS SUMMARY | 2025-05-15 12:40 | XMS_ITS | Encounter Summary ---
Author Organization [facility] Address [address] [place] [address] Care Team Providers Care Dietary Clerk Name Role Phone Khoa Godinez MD Primary Care Provider + [phone] Jude Beach MD Unavailable [phone] Tiffanie Smyth DPM Unavailable [phone] Khoa Godinez MD Unavailable +[phone] Khoa Godinez MD Primary Care Provider +[phone] Larissa Leavitt RN Unavailable [phone] Callie Mora MD Unavailable [phone] Skinny White MD Unavailable [phone] Shani Mohan DO Unavailable [phone] Reason for Visit * Reason Comments Med Refill Encounter Details Date Type Department Care Team (Late st Contact Info) Description 05/01/2024 Refill [facility] [address] [place] [address] Khoa Godinez MD [address] [facility] [address] [place] [address] (Fax) Essential hypertension ; Type 2 diabetes [...] Procedure Visit [facility] [address] [place] [address] Tiffanie Smyth, DPM [address] [place], [place] [address] 10/22/2025 2:30 PM EST Office Visit [facility] [address] [place] [address] Khoa Godinez MD [address] [place] [address] (Fax) documented as of this encounter Visit Diagnoses Diagnosis Essential hypertension Unspecified essential hypertension Type 2 diabetes mellitus with hyperglycemia, without long-term current use of insulin (HCC) Mixed hyperlipidemia Mixed hyperlipidemia documented in this encounter Additional Health Concerns Assessment Noted Time PHQ-9 Depression Total Score: 2 04/03/20 24 11:00 AM EDT documented as of this encounter Care Teams Dietary Clerk Relationship Specialty Start Date End Date Khoa Godinez MD (Fax) PCP - General Family Medicine 04/08/23 09/12/24 Khoa Godinez MD [address] [place] [address] (Fax) PCP - ACO Reach 12/31/23 Khoa Godinez MD [address] [place] [address] (Fax) PCP - General Family Medicine 12/27/24 Jude Beach MD 290 [place] [address] Referring Physician Urology 12/09/23 Tiffanie Smyth DPM [address] [place] [address] Referring Physician Podiatry 12/09/23 Larissa Leavitt, RN [address] [facility] 230 [place] [address] Registered Nurse Family Medicine 02/13/25 Callie Mora MD 595 [facility] [place] [address] Referring Physician General Surgery 05/07/25 Skinny White MD 2600 [place] [address] Referring Physician Ophthalmology 05/07/25 Shani Mohan DO [address] [phone] Referring Physician Neurology 05/07/25 documented as of this encounter
--- OUTSIDE RECORDS SUMMARY | 2025-05-15 12:40 | XMS_ITS | Encounter Summary ---
Author Organization [facility] Address [address] [place] [address] Care Team Providers Care Sleep Manager Name Role Phone Khoa Godinez MD Primary Care Provider + [phone] Jude Beach MD Unavailable [phone] Tiffanie Smyth DPM Unavailable [phone] Khoa Godinez MD Unavailable +[phone] Khoa Godinez MD Primary Care Provider +[phone] Larissa Leavitt RN Unavailable [phone] Callie Mora MD Unavailable [phone] Skinny White MD Unavailable [phone] Shani Mohan DO Unavailable [phone] Encounter Details Date Type Department Care Team (Late st Contact Info) Description 03/22/2024 Orders Only [facility] [address] [facility] [place] [address] Callie Mora MD [address], [address] [address] Social History Tobacco Use Types Packs/Day Years [...] Procedure Visit [facility] [address] [place] [address] Tiffanie Smyth, DPM [address] [place] [address] 10/22/2025 2:30 PM EST Office Visit [facility] [address] [place] [address] Khoa Godinez MD [address] [place] [address] (Fax) documented as of this encounter Procedures [...] on filedocumented in this encounter Care Teams Sleep Manager Relationship Specialty Start Date End Date Khoa Godinez MD (Fax) PCP - General Family Medicine 04/08/23 09/12/24 Khoa Godinez MD [address] [place] [address] (Fax) PCP - ACO Reach 12/31/23 Khoa Godinez MD [address] [place] [address] (Fax) PCP - General Family Medicine 12/27/24 Jude Beach MD 290 [place] [address] Referring Physician Urology 12/09/23 Tiffanie Smyth DPM 1900 [place] [address] Referring Physician Podiatry 12/09/23 Larissa Leavitt, RN [address] [facility] 230 [place], [place] [address] Registered Nurse Family Medicine 02/13/25 Callie Mora MD 595 [place] [address] Referring Physician General Surgery 05/07/25 Skinny White MD 2600 [place] [address] Referring Physician Ophthalmology 05/07/25 Shani Mohan DO [address] [address] Referring Physician Neurology 05/07/25 documented as of this encounter
--- OUTSIDE RECORDS SUMMARY | 2025-05-15 12:40 | XMS_ITS | Encounter Summary ---
Author Organization [facility] Address [address] [place] [address] Care Team Providers Care Stepdown Nurse Name Role Phone Khoa Godinez MD Primary Care Provider + [phone] Jude Beach MD Unavailable [phone] Tiffanie Smyth DPM Unavailable [phone] Khoa Godinez MD Unavailable [phone] Khoa Godinez MD Primary Care Provider +[phone] Larissa Leavitt RN Unavailable [phone] Callie Mora MD Unavailable [phone] Skinny White MD Unavailable [phone] Shani Mohan DO Unavailable [phone] Encounter Details Date Type Department Care Team (Late st Contact Info) Description 12/22/2023 Abstract [facility] [address] [place] [address] Yaquelin Lakhani MD [address] [place], [place] [address] Social History Tobacco Use Types Packs/Day Years [...] Procedure Visit [facility] [address] [place] [address] Tiffanie Smyth DPM 190 [place] [address] 10/22/2025 2:30 PM EST Office Visit [facility] [address] [place] [address] Khoa Godinez MD [address] [place] [address] (Fax) documented as of this encounter Visit Diagnoses Not on filedocumented in this encounter Care Teams Stepdown Nurse Relationship Specialty Start Date End Date Khoa Godinez MD PCP - General Family Medicine 04/08/23 09/12/24 Khoa Godinez MD [address] [place] [address] (Fax) PCP - ACO Reach 12/31/23 Khoa Godinez MD [address] [facility] [address] [place] [address] (Fax) PCP - General Family Medicine 12/27/24 Jude Beach MD [address] [place] [address] Referring Physician Urology 12/09/23 Tiffanie Smyth DPM [address] [place] [address] Referring Physician Podiatry 12/09/23 Larissa Leavitt, RN [address] [facility] 230 [place] [address] Registered Nurse Family Medicine 02/13/25 Callie Mora MD 595 [place] [address] Referring Physician General Surgery 05/07/25 [place] [address] [place] [address] Referring Physician Ophthalmology 05/07/25 Shani Mohan DO [address] [phone] Referring Physician Neurology 05/07/25 documented as of this encounter
--- OUTSIDE RECORDS SUMMARY | 2025-05-15 12:40 | XMS_ITS | Encounter Summary ---
Author Organization [facility] Address [address] [facility] [place] [address] Care Team Providers Care Recording Studio Set Up Worker Name Role Phone Khoa Godinez MD Primary Care Provider + [phone] Jude Beach MD Unavailable +[phone] Tiffanie Smyth DPM Unavailable +[phone] Khoa Godinez MD Unavailable [phone] Khoa Goidnez MD Primary Care Provider +[phone] Larissa Leavitt RN Unavailable [phone] Callie Mora MD Unavailable [phone] Skinny White MD Unavailable [phone] Shani Mohan DO Unavailable [phone] Encounter Details Date Type Department Care Team (Late st Contact Info) Description 03/09/2024 Abstract [facility] [address] [place] [address] Khoa Godinez MD [address] [place] [address] Social History Tobacco Use Types Packs/Day Years [...] Procedure Visit [facility] [address] [place] [address] Tiffanie Smyth DPM 1900 [place] [address] 10/22/2025 2:30 PM EST Office Visit [facility] [address] [place] [address] Khoa Godinez MD [address] [place] [address] documented as of this encounter Visit Diagnoses Not on filedocumented in this encounter Care Teams Recording Studio Set Up Worker Relationship Specialty Start Date End Date Khoa Godinez MD (Fax) PCP - General Family Medicine 04/08/23 09/12/24 Khoa Godinez MD [address] [place] [address] (Fax) PCP - ACO Reach 12/31/23 Khoa Godinez MD [address] [place] [address] (Fax) PCP - General Family Medicine 12/27/24 Jude Beach MD [address] [place] [address] Referring Physician Urology 12/09/23 Tiffanie Smyth DPM [address] [place] [address] Referring Physician Podiatry 12/09/23 Larissa Leavitt, RN 2500 [address] [facility] 230 [place] [address] Registered Nurse Family Medicine 02/13/25 Callie Mora MD 595 [place] [address] Referring Physician General Surgery 05/07/25 Skinny White MD [address] [place] [address] Referring Physician Ophthalmology 05/07/25 Shani Mohan DO [address] [phone] Referring Physician Neurology 05/07/25 documented as of this encounter
--- OUTSIDE RECORDS SUMMARY | 2025-05-15 12:41 | XMS_ITS | Encounter Summary ---
Author Organization [facility] Address [address] [place] [address] Care Team Providers Care Director Counseling Bureau Name Role Phone Jude Beach MD Unavailable +[phone] Tiffanie Smyth DPM Unavailable +[phone] Khoa Godinez MD Unavailable +[phone] Khoa Godinez MD Primary Care Provider + [phone] Larissa Leavitt RN Unavailable +[phone] Callie Mora MD Unavailable +[phone] Skinny White MD Unavailable [phone] Shani Mohan DO Unavailable [phone] Encounter Details Date Type Department Care Team (Late st Contact Info) Description 01/29/2025 Orders Only [facility] [address] [place] [address] Jazlyn Sridevi [place] Social History Tobacco Use Types Packs/Day Years [...] Procedure Visit [facility] [address] [place] [address] Tiffanie Smyth DPM [address] [place] [address] 10/22/2025 2:30 PM EST Office Visit [facility] [address] [place] [address] Khoa Godinez MD [address] [place] [address] documented as of this encounter Visit Diagnoses Not on filedocumented in this encounter Additional Health Concerns Assessment Noted Time PHQ-9 Depression Total Score: 2 04/03/20 24 11:00 AM EDT documented as of this encounter Care Teams Director Counseling Bureau Relationship Specialty Start Date End Date Khoa Godinez MD [address] [place] [address] PCP - ACO Reach 12/31/23 Khoa Godinez MD [address] [place] [address] PCP - General Family Medicine 12/27/24 Jude Beach MD [address] [place] [address] Referring Physician Urology 12/09/23 Tiffanie Smyth DPM [address] [place] [address] Referring Physician Podiatry 12/09/23 Larissa Leavitt, RN [address] [facility] 230 [place] [address] Registered Nurse Family Medicine 02/13/25 Callie Mora MD 595 [place] [address] Referring Physician General Surgery 05/07/25 [place] [address] [place] [address] Referring Physician Ophthalmology 05/07/25 Shani Mohan DO [address] [place] [phone] Referring Physician Neurology 05/07/25 documented as of this encounter
--- OUTSIDE RECORDS SUMMARY | 2025-05-15 12:41 | XMS_ITS | Encounter Summary ---
Author Organization [facility] Address [address] [place] [address] Care Team Providers Care Head Sawyer Name Role Phone Jude Beach MD Unavailable +[phone] Tiffanie Smyth DPM Unavailable [phone] Khoa Godinez MD Unavailable +[phone] Khoa Godinez MD Primary Care Provider [phone] Larissa Leavitt RN Unavailable +[phone] Callie Mora MD Unavailable [phone] Skinny White MD Unavailable +[phone] Shani Mohan DO Unavailable [phone] Reason for Visit * Reason Comments Med Refill Encounter Details Date Type Department Care Team (Late st Contact Info) Description 04/26/2025 Telephone [facility] 100 112 [facility] [address] [place] [address] Khoa Godinez MD [address] [facility] [address] [place] [address] Med Refill Social History Tobacco Use Types Packs/Day Years Used Date Smoking Tobacco: Never Alcohol Use Standard Drinks/Week Comments Never 0 (1 standard drink = 0.6 oz pur e alcohol) Caffeine intake: none PHQ-2 Answer Date Recorded Patient Health Questionnaire-2 Score 0 04/26/2025 Sex and Gender Information Value Date Recorded Sex Assigned at Not on file Legal Sex Male 7:09 PM EDT Gender Identity Not on file Sexual Orientation Not on file Occupation Industry Job Start Date Job End Date Retired Not on file Not on file Not on file documented as of this encounter Functional Status * Over the past 2 weeks, how often have you been bothered by any of the following problems? Question Answer Date of Assessment Author Little interest or pleasure in doing things Not at all 04/26/2025 2:52 PM EDT Sridevi Hobson MA Feeling down, depressed, or hopeless Not at all 04/26/2025 2:52 PM EDT Sridevi Hobson MA Patient Health Questionnaire -2 Score 0 04/26/2025 2:52 PM EDT Sridevi Hobson MA documented as of this encounter Miscellaneous Notes * Telephone Encounter - Sridevi Hobson MA - 05/08/2025 8:09 AM EDT Copied into a note from : Let Abelino no that I have limited experience with prostate MRIs. However, in the recommendation there are 2 areas in the prostate which were recommended for biopsy for further evaluation. He should certainly be following up with Urology. documented in this encounter Plan of Treatment Upcoming Encounters Date Type Department Care Team (Late st Contact Info) Description 07/12/2025 1:00 PM EDT Procedure Visit [facility] [address] [place] [address] Tiffanie Smyth, DPM 1900 [place] [address] 10/22/2025 2:30 PM EST Office Visit [facility] [address] [place] [address] Khoa Godinez MD 112 [facility] [address] [place] [address] (Fax) documented as of this encounter Visit Diagnoses Diagnosis Essential hypertension Unspecified essential hypertension documented in this encounter Additional Health Concerns Assessment Noted Time PHQ-9 Depression Total Score: 2 04/03/20 24 11:00 AM EDT documented as of this encounter Care Teams Head Sawyer Relationship Specialty Start Date End Date Koha Godinez MD [address] [place] [address] (Fax) PCP - ACO Reach 12/31/23 Khoa Godinez MD [address] [place] [address] (Fax) PCP - General Family Medicine 12/27/24 Jude Beach MD [address] [place] [address] Referring Physician Urology 12/09/23 Tiffanie Smyth DPM 1900 [place] [address] Referring Physician Podiatry 12/09/23 Larissa Leavitt, CORDELL [address] [facility] 230 [place] [address] Registered Nurse Family Medicine 02/13/25 Callie Mora MD 595 [place] [address] Referring Physician General Surgery 05/07/25 Skinny White MD 2600 [place] [address] Referring Physician Ophthalmology 05/07/25 Shani Mohan DO [address] [phone] Referring Physician Neurology 05/07/25 documented as of this encounter
--- OUTSIDE RECORDS SUMMARY | 2025-05-15 12:41 | XMS_ITS | Encounter Summary ---
Author Organization [facility] Address [address] [place] [address] Care Team Providers Care Intelligent Systems Engineer Name Role Phone Khoa Godinez MD Primary Care Provider + [phone] Jude Beach MD Unavailable [phone] Tiffanie Smyth DPM Unavailable [phone] Khoa Godinez MD Unavailable [phone] Khoa Godinez MD Primary Care Provider [phone] Larissa Leavitt RN Unavailable [phone] Callie Mora MD Unavailable [phone] Skinny White MD Unavailable [phone] Shani Mohan DO Unavailable [phone] Encounter Details Date Type Department Care Team (Late st Contact Info) Description 11/22/2023 Abstract [facility] [address] [place] [address] Khoa Godinez MD [address] [place] [address] Social History Tobacco Use Types Packs/Day Years [...] Procedure Visit [facility] [address] [place] [address] Tiffanie Smyth DPM [address] [place] [address] 10/22/2025 2:30 PM EST Office Visit [facility] [address] [place] [address] Khoa Godinez MD [address] [place] [address] documented as of this encounter Visit Diagnoses Not on filedocumented in this encounter Care Teams Intelligent Systems Engineer Relationship Specialty Start Date End Date Khoa Godinez MD (Fax) PCP - General Family Medicine 04/08/23 09/12/24 Khoa Godinez MD [address] [place] [address] (Fax) PCP - ACO Reach 12/31/23 Khoa Godinez MD [address] [place] [address] (Fax) PCP - General Family Medicine 12/27/24 Jude Beach MD [address] [place] [address] Referring Physician Urology 12/09/23 Tiffanie Smyth DPM [address] [place] [address] Referring Physician Podiatry 12/09/23 Larissa Leavitt, RN [address] [facility] [address] [place] [address] Registered Nurse Family Medicine 02/13/25 Callie Mora MD [address] [place] [address] Referring Physician General Surgery 05/07/25 Skinny White MD [address] [place] [address] Referring Physician Ophthalmology 05/07/25 Shani Mohan DO [address] [id number] Referring Physician Neurology 05/07/25 documented as of this encounter
--- OUTSIDE RECORDS SUMMARY | 2025-05-15 12:41 | XMS_ITS | Clinical Summary ---
Author Organization [facility] Address [address] [place] [address] Care Team Providers Care Grassroots Organizer Name Role Phone Jude Beach MD Unavailable [phone] Tiffanie Smyth DPM Unavailable [phone] Khoa Godinez MD Unavailable [phone] Khoa Godinez MD Primary Care Provider [phone] Larissa Leavitt RN Unavailable [phone] Callie Mora MD Unavailable [phone] Skinny White MD Unavailable [phone] Shani Mohan DO Unavailable [phone] Allergies Active Allergy Reactions Criticality Noted Date Comments Meperidine 02/01/2014 Other Reaction(s): Other: See Comments moise Meperidine Hcl 12/02/2021 Other Reaction(s): moise Abdi Pioglitazone Swelling 04/13/2023 Medications aspirin 81 MG EC tablet Take 81 mg by mouth in the morning. 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 70-150, 10 UNITS. 151-200, 14 UNITS. 201-250, 16 UNITS. 251-300, 18 UNITS. >300, 20 UNITS 15 each 3 02/06/20 25 Active Blood Glucose Monitoring Suppl (Blood Glucose Monitoring 333) device 1 Device continuously Accucheck Active DULoxetine (Cymbalta) [address] capsule Take 30 mg by mouth in the morning and 30 mg before bedtime. 03/09/20 25 Active metFORMIN (Glucophage) 1000 MG tabletIndications: Type 2 diabetes mellitus with diabetic microalbuminuria, with long-term current use of insulin ([facility]) Take 1 tablet (1,000 mg) by mouth in the morning and 1 tablet (1,000 mg) in the evening. Take with meals. 180 tablet 1 05/03/20 025 Active fenofibrate (Triglide) 160 MG tabletIndications: Mixed hyperlipidemia Take 1 tablet (160 mg) by mouth Daily 90 tablet 1 05/03/20 25 025 Active losartan-hydroCHLO ROthiazide (Hyzaar) 100-12.5 MG tabletIndications: Primary hypertension Take 1 tablet by mouth Daily 90 tablet 1 05/03/20 25 025 Active metoprolol tartrate (Lopressor) 50 MG tabletIndications: Primary hypertension Take 1 tablet (50 mg) by mouth in the morning and 1 tablet (50 mg) before bedtime. 180 tablet 1 05/03/20 25 025 Active hydroCHLOROthiazid e (HYDRODiuril) 25 MG tabletIndications: Primary hypertension Take 1 tablet (25 mg) by mouth in the evening 90 tablet 1 05/03/20 25 025 Active spironolactone (Aldactone) 25 MG tabletIndications: Lymphedema of both lower extremities 2 tablets in Am and 1 tablet in PM 270 tablet 1 05/03/20 25 Active doxycycline (Monodox) 100 MG capsuleIndications :Chronic cellulitis Take 1 capsule (100 mg) by mouth Daily 90 capsule 3 05/03/20 25 026 Active Glucose Blood (Blood Glucose Test Strips 333) stripIndications:P olyneuropathy due to type 2 diabetes mellitus (HCC) 1 strip by In Vitro route in the morning and 1 strip in the evening. Take before meals. 200 strip 3 05/07/20 025 Active Lancets miscIndications:Po lyneuropathy due to type 2 diabetes mellitus (HCC) 1 Lancet in the morning and 1 Lancet in the evening. Take before meals. 200 each 3 05/07/20 025 Active fenofibrate (Triglide) 160 MG tabletIndications: Mixed hyperlipidemia Take 1 tablet (160 mg) by mouth Daily 90 tablet 1 10/31/20 24 025 Discontin ued(Reord er) losartan-hydroCHLO ROthiazide (Hyzaar) 100-12.5 MG tabletIndications: Essential hypertension Take 1 tablet by mouth Daily 90 tablet 1 10/31/20 24 025 Discontin ued(Reord er) metoprolol tartrate (Lopressor) 50 MG tabletIndications: Essential hypertension Take 1 tablet (50 mg) by mouth in the morning and 1 tablet (50 mg) before bedtime. 180 tablet 1 10/31/20 24 025 Discontin ued(Reord er) spironolactone (Aldactone) 25 MG tabletIndications: Lymphedema of both lower extremities 2 tablets in Am and 1 tablet in PM 270 tablet 1 10/31/20 24 025 Discontin ued(Reord er) doxycycline (Monodox) 100 MG capsuleIndications :Chronic cellulitis Take 1 capsule (100 mg) by mouth Daily 90 capsule 3 10/31/20 24 025 Discontin ued(Reord er) hydroCHLOROthiazid e (HYDRODiuril) 25 MG tabletIndications: Essential hypertension Take 1 tablet (25 mg) by mouth in the evening 90 tablet 1 01/30/20 25 025 Discontin ued(Reord er) Glucose Blood (Blood Glucose Test Strips 333) strip 1 strip by In Vitro route in the morning and 1 strip in the evening. Take before meals. 025 Discontin ued(Reord er) Lancets misc 1 Lancet in the morning and 1 Lancet in the evening. Take before meals. 025 Discontin ued(Reord er) metFORMIN (Glucophage) 1000 MG tabletIndications: Type 2 diabetes mellitus with hyperglycemia, without long-term current use of insulin (HCC) TAKE 1 TABLET (1,000 MG) BY MOUTH IN THE MORNING AND IN THE EVENING WITH MEALS 180 tablet 1 04/09/20 25 025 Discontin ued(Reord er) Active Problems Problem Noted Date Diagnosed Date Snoring 07/26/2024 Hypersomnia 07/26/2024 Myalgia due to statin [...] lumbar region with neurogenic c laudication 12/09/2023 Elevated PSA 07/28/2023 Personal history of kidney stones 07/28/2023 Benign non-nodular prostatic hyperplasia with lower urinary tract symptoms 04/12/2023 Chronic cellulitis 04/12/2023 CPAP (continuous positive airway pressure) depen dence 04/12/2023 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, with long-term current use of insulin 04/12/2023 Difficulty in walking, not elsewhere classified [...] dermatitis of both legs 04/12/2023 Thrombocytopenia 04/12/2023 Type 2 diabetes mellitus with foot ulcer (CODE) 04/12/2023 Chronic ulcer of left foot limited to breakdown of skin 08/26/2021 Peripheral venous insufficiency 08/05/2021 Polypharmacy 08/05/2021 Type 2 diabetes mellitus wit h chronic kidney disease, with long-term current use of insulin 10/02/2020 History of arthrodesis 10/02/2020 Overview (11/04/2023): Left ankle Thoracic spondylosis without myelopathy 10/02/20 20 Bilateral nonexudative age-related macular degen eration 07/19/2016 Polyneuropathy due to type 2 diabetes mellitus 0 07/19/2016 Diverticulosis of colon 08/10/2015 Fibromyalgia Peripheral vascular disease Back pain Overview (04/11/2024): severe polyneuropathy and polyradiculopathy- likely due to DM. also has chronic back pain. improved with meds. Symptoms have improved with gabapentin. he cannot walk for long distances due to fatigue and weakness and is afraid of falling Resolved Problems Problem Noted Date Diagnosed Date Resolved Date Obesity (BMI 30-39.9) 07/26/20242024 Deep vein thrombosis (DVT) o f left lower extremity 07/28/2023 05/07/2025 Family history of prostate cancer 07/28/2023 11/04/2023 Nocturia 07/28/2023 11/04/2023 Skin ulcer of toe of left fo ot, limited to breakdown of skin 04/12/2023 04/03/2024 Type 2 diabetes mellitus 04/12/202301/2024 Hyperglycemia due to type 2 diabetes mellitus 04/02/20 21 05/03/2025 Class 2 obesity 10/02/2020 11/04/2023 Lower urinary tract symptoms due to benign prostatic hyperplasia 07/19/2016 05/07/2025 Lymphedema 07/19/2016 11/04/2023 Nonexudative age-related macular degeneration 07/19/20 16 05/07/2025 BMI 40.0-44.9, adult 02/01/2014 024 Flank pain 02/01/2014 05/07/2025 Weakness 05/07/2025 Malaise and fatigue 05/07/20 25 Polyneuropathy 04/25/2025 Overview (04/11/2024): Previously was treated with both zonegran and gabapentin. Zonegran has since been weaned. Diabetes normally well controlled. He continues with lower extremity pain despite, likely related to the underlying polyneuropathy. Gabapentin increase lessened symptoms. Encounters Date Type Department Care Team Description 05/08/2025 Orders Only [facility] [address] [place] [id number] Khoa Godinez MD 05/08/2025 Patient Outreach [facility] On[facility] [address] [place] [address] Larissa Leavitt RN 05/07/2025 11:00 AM EDT Office Visit [facility] [address] [place] [address] Khoa Godinez MD Encounter for Medicare annual wellness exam (Primary [...] (HCC); Morbid obesity due to excess calories (CMS-HCC); Type 2 diabetes mellitus with foot ulcer (CODE) (HCC); Thrombocytopenia 05/07/2025 Bamboo flowsheet [facility] [address] [place] [address] Khoa Godinez MD 05/07/2025 Travel 04/30/2025 Refill [facility] [address] [place] [address] Khoa Godinez MD Type 2 diabetes mellitus with hyperglycemia (HCC) 04/26/2025 3:00 PM EDT Office Visit [facility] [address] [place] [address] Khoa Godinez MD Primary hypertension ; Mixed hyperlipidemia ; Hyperuricemia; Microalbuminuria; Type 2 diabetes mellitus with diabetic microalbuminuria, with long-term current use of insulin (HCC); Type 2 diabetes mellitus with diabetic polyneuropathy, with long-term current use of insulin (HCC); Diabetic neuropathic arthropathy (HCC); Lymphedema of both lower extremities; Chronic cellulitis; Polypharmacy; Morbid obesity due to excess calories ([facility]-HCC) 04/26/2025 Travel 04/26/2025 Telephone [facility] [address] [facility] [address] [place] [address] Khoa Godinez MD Med Refill 04/24/2025 Clinisync Result Encounter [facility] External Department Unsolicited Khoa Godinez MD 04/24/2025 Patient Outreach [facility] [address] [place] [id number] Larissa Leavitt RN 04/24/2025 Refill [facility] [address] [facility] [address] [place] [id number] Khoa Godinez MD Mixed hyperlipidemia 04/19/2025 Telephone [facility] [address] [facility] [address] [place] [id number] [place] [place] Lab Orders 04/17/2025 Patient Outreach [facility] [address] [place] [id number] Larissa Leavitt RN 04/05/2025 1:00 PM EDT Procedure Visit [facility] [address] [place] [id number] Tiffanie Smyth DPM Type II or unspecified type diabetes mellitus with neurological manifestations, not 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) ([facility]) (Primary Dx); Onychomycosis; Acquired keratoderma; Callus 04/05/2025 Refill [facility] [address] [facility] [address] [place] [id number] Khoa Godinez MD Type 2 diabetes mellitus with hyperglycemia, without long-term current use of insulin ([facility]) 04/05/2025 Bamboo flowsheet [facility] [address] [place] [id number] Tiffanie Smyth DPM 04/05/2025 Travel 04/04/2025 Travel 04/03/2025 Travel 03/16/2025 Patient Outreach [facility] [address] [place] [id number] Larissa Leavitt RN 03/15/2025 Clinisync Result Encounter [facility] External Department Unsolicited Provider, Generic External Data 02/27/2025 Patient Outreach [facility] [address] [place] [id number] Larissa Leavitt, CORDELL 02/20/2025 8:00 AM EDT Office Visit [facility] [address] [place] [id number] Khoa Godinez MD Fall from standing, subsequent encounter; Skin tear of upper extremity; Bleeding; Encounter for examination following treatment at hospital 02/20/2025 Bamboo flowsheet [facility] [address] [place] [id number] Khoa Godinez MD 02/20/2025 Travel 02/19/2025 Patient Outreach [facility] [address] [place] [id number] Larissa Leavitt RN 02/14/2025 Patient Outreach [facility] [address] [place] [id number] Larissa Leavitt, CORDELL 02/13/2025 [facility] [address] [place] [address] Larissa Leavitt, CORDELL from Last 3 Months Immunizations Immunization Administration [...] AM EDT Temperature - - Respiratory Rate 16 08/08/2024 12:34 PM EDT Oxygen Saturation 96% 05/07/2025 11:04 AM EDT Inhaled Oxygen Concentration - - Weight 127 kg (281 lb) 05/07/2025 11:04 AM EDT Height 185.4 cm (6' 1 ) 05/07/2025 11:04 AM EDT Body Mass Index 37.07 05/07/2025 11:04 AM EDT Plan of Treatment Upcoming Encounters Date Type Department Care Team (Late st Contact Info) Description 07/12/2025 1:00 PM EDT Procedure Visit [facility] [address] [place] [address] Tiffanie Smyth, DPM [address] [place] [address] 10/22/2025 2:30 PM EST Office Visit [facility] [address] [place] [address] Khoa Godinez MD [address] [facility] [address] [place] [address] Health Maintenance Due Date Last Done Comments CT Colonography 1950 FIT-DNA 1950 FIT 1950 FOBT 1950 Sigmoidoscopy 1950 Influenza Vaccine (#1) 2025 , 10/14/2023, 09/03/2022, Additional history exists Diabetes: Hemoglobin A1C 10/24/2025 025, 10/26/2024, 10/19/2023, Additional history exists Diabetes: Urine Protein Screening 04/24/2026 04/24/2025, 11/18/2021, 07/24/2019 Medicare Annual Wellness (AWV) 05/07/2026 0 05/07/2025, 04/03/2024, 02/22/2023, Additional history exists Colonoscopy 06/17/2026 06/17/2016 Colorectal Cancer Screening 06/17/2026 Diabetes: Retinopathy Screening 02/27/2027 02/27/2025, 02/25/2024, 06/08/2022, Additional history exists Pneumococcal Vaccine: 65+ Years Completed 12/31/2020, 09/06/2017, 08/17/2016, Additional history exists Procedures Procedure Name Priority Date/Time Associated Diagnosis Comments MLR HEMOGLOBIN A1C Routine 04/24/2025 11 :01 AM EDT TBH MICROALB CREAT RATIO RANDOM Routine 04/24/2025 10:46 AM EDT MHPT PSA, DIAGNOSTIC Routine 03/15/2025 9:59 AM [...] Relevant to Health Maintenance Results * (ABNORMAL) MLR HEMOGLOBIN A1C (04/24/2025 11:01 AM EDT) GLYCOHEMOGLOBIN A1C 6.9(H) 4.5 - 6.2 % TB Comment: ADA RECOMMENDED LIMIT 4.0 - 6.0 ADA THERAPEUTIC TARGET < 7.0 ACTION SUGGESTED > 7.0 ESTIMATED AVERAGE GLUCOSE 151 mg/dL TB 04/24/2025 11:0 1 AM EDT 04/24/2025 11:02 AM EDT Narrative CLINISYNC - 04/24/2025 11:18 AM EDT Khoa Godinez MD CLINISYCHANDU Final Result Performing Organization Address City/[facility]/ZIP Co de Phone Number [facility] * (ABNORMAL) TB MICROALB CREAT RATIO RANDOM (04/24/2025 10:46 AM EDT) MICROALBUMIN URINE RANDOM 3.0 <=30.0 mg/dL TB CREATININE URINE RANDOM 52.26 20.00 - 300.00 mg/dL TB MICROALBUM CREATININE RATIO UR 57.4(H) 0.0 - 29.9 mg/g TBH Comment: NO MICROALBUMINURIA 0-29 MG/G CLINICAL MICROALBUMINURIA 30-300 MG/G MACROALBUMINURIA >300 MG/G 04/24/2025 10:4 6 AM EDT 04/24/2025 11:02 AM EDT Narrative CLINISYNC - 04/24/2025 11:18 AM EDT Khoa Godinez MD CLINISYNC Final Result [facility] * (ABNORMAL) MHPT PSA, DIAGNOSTIC (03/15/2025 9:59 AM EDT) PROSTATE SPECIFIC ANTIGEN DX 5.80(H) <=4.00 ng/mL TB 03/15/2025 9:59 AM EDT 03/15/2025 10:00 AM EDT Narrative CLINISYNC - 03/15/2025 11:47 AM EDT Generic External Data Provider CLINISYNC F inal Result Performing Organization Address City/[facility] Co de Phone Number CLINISYNC TBH * Diabetic Retinopathy Screening - OU - Both Eyes (02/25/2024 9:23 AM EDT) Anatomical Region Laterality Modality Head Other Rasheed Truong MD OPHTH PHOTOGRAPHY Final Result * Hemoglobin A1c (10/19/2023 4:15 PM EST) Blood Venous blood specimen / Unknown Khoa Godinez MD LAB BLOOD ORDERABLES Final R esult Performing Organization Address [facility] Co de Phone Number [facility] * MICROALBUMIN, URINE QUANT (11/18/2021 12:00 PM EST) GENERIC LEGACY COMPONENT INTERNAL 1-1,500 [facility] GENERIC LEGACY COMPONENT INTERNAL 1,500 [facility] 11/18/2021 12:0 0 PM EST Khoa Godinez MD [facility] Final Result Performing Organization Address [facility] Co de Phone Number [facility] * Colonoscopy (06/17/2016 12:00 PM EDT) Anatomical Region Laterality Modality Endoscopy 06/17/2016 12:0 0 PM EDT Narrative 04/29/2017 12:00 PM EDT PERFORMED AT [facility] LOCATION:[id number] Abnormal Procedure Note CONVERSION, GENERIC - 03/18/2023 PERFORMED AT [facility] LOCATION:[id number] Abnormal Khoa Godinez MD ENDOSCOPY PROCEDURE ORDERABL ES Final Result from Last 3 Months or Most Recently Relevant to Health Maintenance Insurance MEDICARE [employer] Advance Directives Documents on File Type Date Recorded Patient Commissioning Manager Expl anation Power of Vehicle Body Maker 03/29/2024 1:37 PM 07-10 POA Advance Directives and Living Will 03/29/2024 1:37 PM 2013-07-10 Living Wi Care Teams Grassroots Organizer Relationship Specialty Start Date End Date Khoa Godinez MD [address] [place] [address] (Fax) PCP - ACO Reach 12/31/23 Khoa Godinez MD [address] [place] [address] (Fax) PCP - General Family Medicine 12/27/24 Jude Beach MD [address] [place] [address] Referring Physician Urology 12/09/23 Tiffanie Smyth DPM [address] [place], [place] [id number] Referring Physician Podiatry 12/09/23 Larissa Leavitt, CORDELL [address] [place] [address] Registered Nurse Family Medicine 02/13/25 Callie Mora MD [address] [facility] [place] [address] Referring Physician General Surgery 05/07/25 Skinny White MD [address] [place] [address] Referring Physician Ophthalmology 05/07/25 Shani Mohan DO [address] [place] [id number] Referring Physician Neurology 05/07/25
--- OUTSIDE RECORDS SUMMARY | 2025-05-15 12:41 | XMS_ITS | Encounter Summary ---
Author Organization [facility] Address [address] [place] [address] Care Team Providers Care Agronomy Advisor Name Role Phone Jude Beach MD Unavailable [phone] Tiffanie Smyth DPM Unavailable [phone] Khoa Godinez MD Unavailable [phone] Khoa Godinez MD Primary Care Provider [phone] Larissa Leavitt RN Unavailable [phone] Callie Mora MD Unavailable [phone] Skinny White MD Unavailable [phone] Shani Mohan DO Unavailable [phone] Encounter Details Date Type Department Care Team (Late st Contact Info) Description 05/08/2025 Orders Only [facility] [address] [place] [address] Khoa Godinez MD [address] [place] [address] Social History Tobacco Use Types Packs/Day Years [...] Procedure Visit [facility] [address] [place] [phone] Tiffanie Smyth DPM [address] [place] [address] 10/22/2025 2:30 PM EST Office Visit [facility] [address] [place] [address] Khoa Godinez MD [address] [place] [address] (Fax) documented as of this encounter Visit Diagnoses Not on filedocumented in this encounter Additional Health Concerns Assessment Noted Time PHQ-9 Depression Total Score: 1 05/07/20 25 10:00 AM EDT documented as of this encounter Care Teams Agronomy Advisor Relationship Specialty Start Date End Date Khoa Godinez MD [address] [place] [address] (Fax) PCP - ACO Reach 12/31/23 Khoa Godinez MD [address] [place] [address] (Fax) PCP - General Family Medicine 12/27/24 Jude Beach MD [address] [place] [address] Referring Physician Urology 12/09/23 Tiffanie Smyth, FAUSTINO [address] [place] [address] Referring Physician Podiatry 12/09/23 Larissa Leavitt, RN [address] [place] [address] Registered Nurse Family Medicine 02/13/25 Callie Mora MD [address] [facility] [place] [address] Referring Physician General Surgery 05/07/25 Skinny White MD [address] [place] [address] Referring Physician Ophthalmology 05/07/25 Shani Mohan DO [address] [place] [address] [address] [place] [phone] Referring Physician Neurology 05/07/25 documented as of this encounter
--- OUTSIDE RECORDS SUMMARY | 2025-05-15 12:41 | XMS_ITS | Encounter Summary ---
Author Organization [facility] Address [address] [place] [address] Care Team Providers Care Wad Printing Machine Operator Name Role Phone Jude Beach MD Unavailable +[phone] Tiffanie Smyth DPM Unavailable +[phone] Khoa Godinez MD Unavailable +[phone] Khoa Godinez MD Primary Care Provider +[phone] Larissa Leavitt RN Unavailable +[phone] Callie Mora MD Unavailable +[phone] Skinny White MD Unavailable +[phone] Shani Mohan DO Unavailable [phone] Reason for Visit * Reason Comments Med Change Request Encounter Details Date Type Department Care Team (Late st Contact Info) Description 02/10/2025 Refill [facility] [address] [place] [address] Khoa Godinez MD [address] [place] [address] Type 2 diabetes mellitus with hyperglycemia, without [...] Procedure Visit [facility] [address] [place] [address] Tiffanie Smyth DPM [address] [place] [address] 10/22/2025 2:30 PM EST Office Visit [facility] [address] [place] [address] Khoa Godinez MD [address] [address] documented as of this encounter Visit Diagnoses Diagnosis Type 2 diabetes mellitus with hyperglycemia, without long-term current use of insulin (HCC) documented in this encounter Additional Health Concerns Assessment Noted Time PHQ-9 Depression Total Score: 2 04/03/20 24 11:00 AM EDT documented as of this encounter Care Teams Wad Printing Machine Operator Relationship Specialty Start Date End Date Khoa Godinez MD [address] [facility] 100 [place] [address] (Fax) PCP - ACO Reach 12/31/23 hKoa Godinez MD [address] [address] (Fax) PCP - General Family Medicine 12/27/24 Jude Beach MD 290 [place] [address] Referring Physician Urology 12/09/23 Tiffanie Smyth DPM [address] [place] [address] Referring Physician Podiatry 12/09/23 Larissa Leavitt, RN [address] [facility] 230 [place] [address] Registered Nurse Family Medicine 02/13/25 Callie Mora MD 595 [place] [address] Referring Physician General Surgery 05/07/25 [place] [address] [place] [address] Referring Physician Ophthalmology 05/07/25 Shani Mohan DO [address] [phone] Referring Physician Neurology 05/07/25 documented as of this encounter
--- OUTSIDE RECORDS SUMMARY | 2025-05-15 12:41 | XMS_ITS | Encounter Summary ---
Author Organization [facility] Address [address] [place] [address] Care Team Providers Care Computer Lab Aide Name Role Phone Jude Beach MD Unavailable +[phone] Tiffanie Smyth DPM Unavailable +[phone] Khoa Godinez MD Unavailable +[phone] Khoa Godinez MD Primary Care Provider +[phone] Larissa Leavitt RN Unavailable +[phone] Callie Mora MD Unavailable [phone] Skinny White MD Unavailable +[phone] Shani Mohan DO Unavailable [phone] Reason for Visit * Reason Comments Med Refill Encounter Details Date Type Department Care Team (Late st Contact Info) Description 04/24/2025 Refill [facility] [address] [place] [address] Khoa Godinez MD [address] [facility] [address] [place] [address] Mixed hyperlipidemia Social History Tobacco Use Types [...] Not at all 04/26/2025 2:52 PM EDT Jazlyn January, SATURNINO Feeling down, depressed, or hopeless Not at all 04/26/2025 2:52 PM EDT Jazlyn January, Patient Health Questionnaire -2 Score 0 04/26/2025 2:52 PM EDT Jazlyn January, documented as of this encounter Plan of Treatment Upcoming Encounters Date Type Department Care Team (Late st Contact Info) Description 07/12/2025 1:00 PM EDT Procedure Visit [facility] [address] [place] [address] Tiffanie Smyth, DPM 1900 [place] [address] 10/22/2025 2:30 PM EST Office Visit [facility] [address] [place] [address] Khoa Godinez MD [address] [place] [address] documented as of this encounter Visit Diagnoses Diagnosis Mixed hyperlipidemia Mixed hyperlipidemia documented in this encounter Additional Health Concerns Assessment Noted Time PHQ-9 Depression Total Score: 2 04/03/20 24 11:00 AM EDT documented as of this encounter Care Teams Computer Lab Aide Relationship Specialty Start Date End Date Khoa Godinez MD [address] [place] [address] (Fax) PCP - ACO Reach 12/31/23 Khoa Godinez MD [address] [place] [address] (Fax) PCP - General Family Medicine 12/27/24 Jude Beach MD 290 [place] [address] Referring Physician Urology 12/09/23 Tiffanie Smyth, DPM 1900 [place] [address] Referring Physician Podiatry 12/09/23 Larissa Leavitt, CORDELL [address] [facility] 230 [place], [place] [phone] Registered Nurse Family Medicine 02/13/25 Callie Mora MD 595 [facility] [place] [address] Referring Physician General Surgery 05/07/25 Skinny White MD 2600 [place] [address] Referring Physician Ophthalmology 05/07/25 Shani Mohan DO [address] [phone] Referring Physician Neurology 05/07/25 documented as of this encounter
--- OUTSIDE RECORDS SUMMARY | 2025-05-15 12:41 | XMS_ITS | Encounter Summary ---
Author Organization [facility] Address [address] [place] [address] Care Team Providers Care Public Health Teacher Name Role Phone Jude Beach MD Unavailable +[phone] Tiffanie Smyth DPM Unavailable +[phone] Khoa Godinez MD Unavailable +[phone] Khoa Godinez MD Primary Care Provider + [phone] Larissa Leavitt RN Unavailable +[phone] Callie Mora MD Unavailable +[phone] Skinny White MD Unavailable +[phone] Shani Mohan DO Unavailable [phone] Encounter Details Date Type Department Care Team (Late st Contact Info) Description 05/07/2025 Bamboo flowsheet [facility] [address] [place] [address] Khoa Godinez MD [address] [place] [address] Social History Tobacco Use Types Packs/Day Years [...] Questionnaire -2 Score 0 05/07/2025 10:00 AM Sridevi Denson M A * Question Answer Date of [...] M A documented as of this encounter Plan of Treatment Upcoming Encounters Date Type Department Care Team (Late st Contact Info) Description 07/12/2025 1:00 PM EDT Procedure Visit [facility] [address] [place] [address] Tiffanie Smyth DPM [address] [address] 10/22/2025 2:30 PM EST Office Visit [facility] [address] 100 [place] [address] Khoa Godinez MD [address] [place] [address] (Fax) documented as of this encounter Visit Diagnoses Not on filedocumented in this encounter Additional Health Concerns Assessment Noted Time PHQ-9 Depression Total Score: 1 05/07/20 25 10:00 AM EDT documented as of this encounter Care Teams Public Health Teacher Relationship Specialty Start Date End Date Khoa Godinez MD [address] [facility] 100 [place] [address] (Fax) PCP - ACO Reach 12/31/23 Khoa Godinez MD [address] [facility] 100 [place] [address] (Fax) PCP - General Family Medicine 12/27/24 Jude Beach MD [address] [place] [id number] Referring Physician Urology 12/09/23 Tiffanie Smyth DPM [address] [place] [address] Referring Physician Podiatry 12/09/23 Larissa Leavitt, CORDELL [address] [facility] 230 [place] [address] Registered Nurse Family Medicine 02/13/25 Callie Mora MD [address] [place], [place] [address] [address] Referring Physician General Surgery 05/07/25 Skinny White MD 2600 [place] [address] Referring Physician Ophthalmology 05/07/25 Shani Mohan DO [address] [place] [phone] Referring Physician Neurology 05/07/25 documented as of this encounter
--- OUTSIDE RECORDS SUMMARY | 2025-05-15 12:41 | XMS_ITS | Encounter Summary ---
Author Organization [facility] Address [address] [place] [address] Care Team Providers Care Museum Guide Name Role Phone Khoa Godinez MD Primary Care Provider + [phone] Jude Beach MD Unavailable +[phone] Tiffanie Smyth DPM Unavailable [phone] Khoa Godinez MD Unavailable [phone] Khoa Godinez MD Primary Care Provider +[phone] Larissa Leavitt RN Unavailable +[phone] Callie Mora MD Unavailable +[phone] Skinny White MD Unavailable [phone] Shani Mohan DO Unavailable [phone] Encounter Details Date Type Department Care Team (Late st Contact Info) Description 07/29/2023 Abstract [facility] [address] [place] [address] Shani Mohan DO Social History Tobacco Use [...] Visit [facility] [address] [place] [address] Tiffanie Smyth DPM [address] [place] [address] 10/22/2025 2:30 PM EST Office Visit [facility] [address] [place] [address] Khoa Godinez MD [address] [place] [address] (Fax) documented as of this encounter Visit Diagnoses Not on filedocumented in this encounter Care Teams Museum Guide Relationship Specialty Start Date End Date Khoa Godinez MD (Fax) PCP - General Family Medicine 04/08/23 09/12/24 Khoa Godinez MD [address] [place] [address] (Fax) PCP - ACO Reach 12/31/23 Khoa Godinez MD [address] [place] [address] (Fax) PCP - General Family Medicine 12/27/24 Jude Beach MD [address] [place] [address] Referring Physician Urology 12/09/23 Tiffanie Smyth DPM [address] [place] [address] Referring Physician Podiatry 12/09/23 Larissa Leavitt, RN [address] [place] [address] Registered Nurse Family Medicine 02/13/25 Callie Mora MD 595 [facility] [place] [address] Referring Physician General Surgery 05/07/25 Skinny White MD [address] [place] [address] Referring Physician Ophthalmology 05/07/25 Shani Mohan DO [address] [place] [address] [address] [place] [phone] Referring Physician Neurology 05/07/25 documented as of this encounter
--- OUTSIDE RECORDS SUMMARY | 2025-05-15 12:41 | XMS_ITS | Encounter Summary ---
Author Organization [facility] Address [address] [place] [address] Care Team Providers Care Block Saw Operator Name Role Phone Khoa Godinez MD Primary Care Provider + [phone] Jude Beach MD Unavailable +[phone] Tiffanie Smyth DPM Unavailable [phone] Khoa Godinez MD Unavailable +[phone] Khoa Godinez MD Primary Care Provider [phone] Larissa Leavitt RN Unavailable +[phone] Callie Mora MD Unavailable +[phone] Skinny White MD Unavailable [phone] Shani Mohan DO Unavailable [phone] Encounter Details Date Type Department Care Team (Late st Contact Info) Description 07/15/2023 Orders Only [facility] [address] [facility] [place] [address] Jude Beach MD [address] [place] [address] Social History Tobacco Use Types Packs/Day Years [...] Procedure Visit [facility] [address] [facility] [address] Tiffanie Smyth, DPM [address] [place] [address] 10/22/2025 2:30 PM EST Office Visit [facility] [address] [place] [address] Khoa Godinez MD [address] [place] [address] (Fax) documented as of this encounter Procedures [...] on filedocumented in this encounter Care Teams Block Saw Operator Relationship Specialty Start Date End Date Khoa Godinez MD (Fax) PCP - General Family Medicine 04/08/23 09/12/24 Khoa Godinez MD [address] [place] [address] (Fax) PCP - ACO Reach 12/31/23 Khoa Godinez MD [address] [place] [address] (Fax) PCP - General Family Medicine 12/27/24 Jude Beach MD 290 [place] [address] Referring Physician Urology 12/09/23 Tiffanie Smyth DPM 1900 [place] [address] Referring Physician Podiatry 12/09/23 Larissa Leavitt, CORDELL [address] [facility] 230 [place] [address] Registered Nurse Family Medicine 02/13/25 Callie Mora MD 595 [facility] [place] [address] Referring Physician General Surgery 05/07/25 Skinny White MD 2600 [place] [address] Referring Physician Ophthalmology 05/07/25 Shani Mohan DO [address] [phone] Referring Physician Neurology 05/07/25 documented as of this encounter
--- OUTSIDE RECORDS SUMMARY | 2025-05-15 12:41 | XMS_ITS | Encounter Summary ---
Author Organization [facility] Address [address] [place] [address] Care Team Providers Care Ore Washer Name Role Phone Jude Beach MD Unavailable [phone] Tiffanie Smyth DPM Unavailable [phone] Khoa Godinez MD Unavailable +[phone] Khoa Godinez MD Primary Care Provider + [phone] Larissa Leavitt RN Unavailable +[phone] Callie Mora MD Unavailable +[phone] Skinny White MD Unavailable [phone] Shani Mohan DO Unavailable [phone] Encounter Details Date Type Department Care Team (Late st Contact Info) Description 05/08/2025 Patient Outreach [facility] [address] [place] [address] Larissa Leavitt, RN [address] [place] [address] Social History Tobacco Use Types Packs/Day Years [...] Progress Notes * Larissa Leavitt RN - 05/08/2025 12:28 PM EDT Chart reviewed. Called pt's , Jayme. Completed monthly call. Notified that PCP reviewed Prostate MRI. Jayme states that Urologist's office called today and scheduled him to have biopsies done at [facility] on 05/22, they gave them instructions and also will be mailing the instructions to them. Pt will start Cipro 1 week prior to the biopsy. Valium the day of the biopsy. Pt states that he continues to monitor his blood sugars, twice a day. States last night was 115 andthis am was 141. Pt seen by PCP yesterday, no refill needs. No concerns or questions. Encouraged tocall with any needs. documented in this encounter Plan of Treatment Upcoming Encounters Date Type Department Care Team (Late st Contact Info) Description 07/12/2025 1:00 PM EDT Procedure Visit [facility] 1900 [place] [address] Tiffanie Smyth, DPM 1900 [place] [address] 10/22/2025 2:30 PM EST Office Visit [facility] [address] [place] [address] Khoa Godinez MD [address] [place] [address] documented as of this encounter Visit Diagnoses Diagnosis Type 2 diabetes mellitus with diabetic polyneuropathy, with long-term current use of insulin (HCC)- Primary Primary hypertension Unspecified essential hypertension documented in this encounter Additional Health Concerns Assessment Noted Time PHQ-9 Depression Total Score: 1 05/07/20 25 10:00 AM EDT documented as of this encounter Care Teams Ore Washer Relationship Specialty Start Date End Date Khoa Godinez MD [address] [place] [address] PCP - ACO Reach 12/31/23 Khoa Godinez MD 112 [facility] 100 [place] [address] PCP - General Family Medicine 12/27/24 Jude Beach MD 290 [place], [place] [address] Referring Physician Urology 12/09/23 Tiffanie Smyth DPM 1900 [place], [place] [address] Referring Physician Podiatry 12/09/23 Larissa Leavitt, CORDELL [address] [facility] 230 [place] [address] Registered Nurse Family Medicine 02/13/25 Callie Mora MD 595 [place] [address] Referring Physician General Surgery 05/07/25 Skinny White MD 2600 [place] [address] Referring Physician Ophthalmology 05/07/25 Shani Mohan DO 703 [facility] 353 [place] [address] Referring Physician Neurology 05/07/25 documented as of this encounter
--- OUTSIDE RECORDS SUMMARY | 2025-05-15 12:41 | XMS_ITS | Encounter Summary ---
Author Organization [facility] Address [address] [place] [address] Care Team Providers Care Plugging Machine Operator Name Role Phone Khoa Bowles MD Primary Care Provider + [phone] Jude Wood MD Unavailable +[phone] Tiffanie Smyth DPM Unavailable [phone] Khoa Bowles MD Unavailable [phone] Khoa Bowles MD Primary Care Provider +[phone] Larissa Leavitt RN Unavailable +[phone] Callie Mora MD Unavailable +[phone] Skinny White MD Unavailable +[phone] Shani Mohan DO Unavailable [phone] Encounter Details Date Type Department Care Team (Late Contact Info) Description 09/02/2024 Clinisync Result Encounter [...] Procedure Visit [facility] [address] [facility] [address] Tiffanie Smyth, DPM [address] [place], [place] [address] 10/22/2025 2:30 PM EST Office Visit [facility] [address] [place] [address] Khoa Bowles MD [address] [place] [address] documented as of this encounter Procedures Procedure Name Priority Date/Time Associated Diagnosis Comments XR ABDOMEN 1V 09/02/2024 6:56 AM EDT documented in this encounter Results * XR ABDOMEN 1V (09/02/2024 6:56 AM EDT) Anatomical Region Laterality Modality Other 09/02/2024 6:56 AM EDT Narrative 09/02/2024 6:59 AM EDT [address] [address] XRay Report Signed Patient: MANUEL BALDERAS MR#: [id number] : 1950 Acct:[id number] Age/Sex: 74 / M ADM Date: 08/31/24 Loc: LAB Attending Dr: Jude Wood M.D. Ordering Physician: Jude Wood M.D. Date of Service: 08/31/24 Procedure(s): XR abdomen 1V Accession Number(s): [id number] cc: KHOA BOWLES ; Jude Wood M.D. [address] [address] Patient Name: MANUEL BALDERAS MRN: [id number] date: 1950 Sex: M Assigned Patient Location: LAB Current Patient Location: Accession/Order Number: [id number] Exam Date: 08/31/2024 15:00 Report Date: 09/02/2024 [...] Solomon M.D. Signed By: 09/02/2459 DD/ TD/TT: Pipe Finishing Supervisor: Procedure Note Radiology, Radiologist, MD - 09/02/2024 [place] [address] XRay Report Signed Patient: MANUEL BALDERAS JMR#: [id number] : 1950Acct:[id number] Age/Sex: 74 / MADM Date: 08/31/24 Loc: LAB Attending Dr: Jude Wood M.D. Ordering Physician: Jude Wood M.D. Date of Service: 08/31/24 Procedure(s): XR abdomen 1V Accession Number(s): [id number] cc: KHOA BOWLES ; Jude Wood M.D. [address] [place] [id number] Patient Name: MANUEL BALDERAS MRN: [id number] date: 1950 Sex: M Assigned Patient Location: LAB Current Patient Location: Accession/Order Number: [id number] Exam Date: 08/31/2024 15:00 Report Date: 09/02/2024 [...] Solomon M.D. Signed By:09/02/2459 DD/ 5 TD/TT: Pipe Finishing Supervisor: us Generic External Data Provider [facility] Final Result documented in this encounter Visit Diagnoses Not on filedocumented in this encounter Additional Health Concerns Assessment Noted Time PHQ-9 Depression Total Score: 2 04/03/20 24 11:00 AM EDT documented as of this encounter Care Teams Plugging Machine Operator Relationship Specialty Start Date End Date Khoa Bowles MD PCP - General Family Medicine 04/08/23 09/12/24 Khoa Bowles MD [address] [address] PCP - ACO Reach 12/31/23 Khoa Bowles MD [address] [address] PCP - General Family Medicine 12/27/24 Jude Wood MD [address] [place] [address] Referring Physician Urology 12/09/23 Tiffanie Smyth DPM [address] [place], [place] [address] Referring Physician Podiatry 12/09/23 Larissa Leavitt, RN [address] [facility] 230 [place] [address] Registered Nurse Family Medicine 02/13/25 Callie Mora MD 595 [place] [address] Referring Physician General Surgery 05/07/25 Skinny White MD 2600 [place] [address] Referring Physician Ophthalmology 05/07/25 Shani Mohan DO 703 [facility] 353 [place] [address] Referring Physician Neurology 05/07/25 documented as of this encounter
--- OUTSIDE RECORDS SUMMARY | 2025-05-15 12:41 | XMS_ITS | Encounter Summary ---
Author Organization [facility] Address [address] [place] [address] Care Team Providers Care Turning Sander Operator Name Role Phone Jude Beach MD Unavailable +[phone] Tiffanie Smyth DPM Unavailable +[phone] Khoa Godinez MD Unavailable +[phone] Khoa Godinez MD Primary Care Provider + [phone] Larissa Leavitt RN Unavailable +[phone] Callie Mora MD Unavailable +[phone] Skinny White MD Unavailable [phone] Shani Mohan DO Unavailable [phone] Encounter Details Date Type Department Care Team (Latest Contact Info) Description 05/07/2025 Travel Social History Tobacco Use Types Packs/Day Years [...] PM EDT Procedure Visit [facility] [address] [place] [address] Tiffanie Smyth, DPM [address] [place], [place] [address] 10/22/2025 2:30 PM EST Office Visit [facility] [address] [place] [address] Khoa Godinez MD [address] [facility] 100 [place] [address] (Fax) documented as of this encounter Visit Diagnoses Not on filedocumented in this encounter Additional Health Concerns Assessment Noted Time PHQ-9 Depression Total Score: 1 05/07/20 25 10:00 AM EDT documented as of this encounter Care Teams Turning Sander Operator Relationship Specialty Start Date End Date Khoa Godinez MD [address] [facility] 100 [place] [address] (Fax) PCP - ACO Reach 12/31/23 Khoa Godinez MD 112 [facility] 100 [place] [address] (Fax) PCP - General Family Medicine 12/27/24 Jude Beach MD [address] [place], [place] [address] Referring Physician Urology 12/09/23 Tiffanie Smyth DPM 1900 [place] [address] Referring Physician Podiatry 12/09/23 Larissa Leavitt, CORDELL [address] [facility] 230 [place] [address] Registered Nurse Family Medicine 02/13/25 Callie Mora MD 595 [place] [address] Referring Physician General Surgery 05/07/25 Skinny White MD 2600 [place] [address] Referring Physician Ophthalmology 05/07/25 Shani Mohan DO [address] [address] Referring Physician Neurology 05/07/25 documented as of this encounter
--- OUTSIDE RECORDS SUMMARY | 2025-05-15 12:41 | XMS_ITS | Encounter Summary ---
Author Organization [facility] Address [address] [place] [address] Care Team Providers Care Welfare Specialist Name Role Phone Khoa Bowles MD Primary Care Provider + [phone] Jude Wood MD Unavailable +[phone] Tiffanie Smyth DPM Unavailable +[phone] Khoa Bowles MD Unavailable [phone] Khoa Bowles MD Primary Care Provider +[phone] Larissa Leavitt RN Unavailable +[phone] Callie Mora MD Unavailable +[phone] Skinny White MD Unavailable +[phone] Shani Mohan DO Unavailable [phone] Encounter Details Date Type Department Care [...] EDT Procedure Visit [facility] [address] [facility] [place] [address] Tiffanie Smyth, DPM [address] [place], [place] [address] 10/22/2025 2:30 PM EST Office Visit [facility] [address] [place] [address] Khoa Bowles MD 112 [place] [facility] [address] [place] [address] documented as of this encounter Procedures Procedure Name Priority Date/Time Associated Diagnosis Comments XR ABDOMEN 1V 07/15/2023 11:48 AM EDT documented in this encounter Results * XR ABDOMEN 1V (07/15/2023 11:48 AM EDT) Anatomical Region Laterality Modality Other 07/15/2023 11:4 8 AM EDT Narrative 07/15/2023 11:48 AM EDT [address] [address] XRay Report Signed Patient: MANUEL BALDERAS MR#: [id number] : 1950 Acct:[id number] Age/Sex: 73 / M ADM Date: 07/15/23 Loc: RAD Attending Dr: Jude Wood M.D. Ordering Physician: Jude Wood M.D. Date of Service: 07/15/23 Procedure(s): XR abdomen 1V Accession Number(s): [id number] cc: KHOA BOWLES ; Jude Wood M.D. The [address] [address] Patient Name: MANUEL BALDERAS MRN: [id number] date: 1950 Sex: M Assigned Patient Location: RAD Current Patient Location: RAD Accession/Order Number: [id number] Exam Date: 07/15/2023 10:10 Report Date: 07/15/2023 11:48 At the request of: JUDE WOOD Procedure: [...] Grossly stable left nephrolithiasis. Electronically authenticated by: JAYCE SOLOMON Date: 07/15/2023 11:48 Dictated By: Jayce Solomon M.D. Signed By: 07/15/23 1150 DD/ 1148 TD/TT: Slurry Mixer: Procedure Note Radiology, Radiologist, MD - 07/23/2023 [place] [address] XRay Report Signed Patient: MANUEL BALDERAS R#: [id number] : 1950Acct:[id number] Age/Sex: 73 / MADM Date: 07/15/23 Loc: RAD Attending Dr: Jude Wood M.D. Ordering Physician: Jude Wood M.D. Date of Service: 07/15/23 Procedure(s): XR abdomen 1V Accession Number(s): [id number] cc: KHOA BOWLES ; Jude Wood M.D. The [place] [address] Patient Name: MANUEL BALDERAS MRN: [id number] date: 1950 Sex: M Assigned Patient Location: RAD Current Patient Location: RAD Accession/Order Number: [id number] Exam Date: 07/15/2023 10:10 Report Date: 07/15/2023 11:48 At the request of: JUDE WOOD Procedure: [...] Grossly stable left nephrolithiasis. Electronically authenticated by: JAYCE SOLOMON Date: 07/15/2023 11:48 Dictated By: Jayce Solomon M.D. Signed By:07/15/23 1150 DD/ 1148 TD/TT: Slurry Mixer: Generic External Data Provider [facility] Final Result documented in this encounter Visit Diagnoses Not on filedocumented in this encounter Care Teams Welfare Specialist Relationship Specialty Start Date End Date Khoa Bowles MD (Fax) PCP - General Family Medicine 04/08/23 09/12/24 Khoa Bowles MD [address] [address] PCP - ACO Reach 12/31/23 Khoa Bowles MD [address] [address] (Fax) PCP - General Family Medicine 12/27/24 Jude Wood MD [address] [place] [address] Referring Physician Urology 12/09/23 Tiffanie Smyth DPM [address] [place], [place] [address] Referring Physician Podiatry 12/09/23 Larissa Leavitt, RN [address] [place] [address] Registered Nurse Family Medicine 02/13/25 Callie Mora MD 595 [place] [address] Referring Physician General Surgery 05/07/25 [place] [address] [place] [address] Referring Physician Ophthalmology 05/07/25 Shani Mohan DO [address] [place] [phone] Referring Physician Neurology 05/07/25 documented as of this encounter
--- OUTSIDE RECORDS SUMMARY | 2025-05-15 12:41 | XMS_ITS | Encounter Summary ---
Author Organization [facility] Address [address] [place] [address] Care Team Providers Care Cat Cracker Operator Name Role Phone Khoa Godinez MD Primary Care Provider + [phone] Jude Beach MD Unavailable +[phone] Tiffanie Smyth DPM Unavailable +[phone] Khoa Godinez MD Unavailable +[phone] Khoa Godinez MD Primary Care Provider +[phone] Larissa Leavitt RN Unavailable +[phone] Callie Mora MD Unavailable +[phone] Skinny White MD Unavailable +[phone] Shani Mohan DO Unavailable [phone] Encounter Details Date Type Department Care Team (Late st Contact Info) Description 06/02/2023 Abstract [facility] [address] [place] [address] Tiffanie Smyth, DPM [address] [place], [place] [address] Social History Tobacco Use Types Packs/Day Years [...] Procedure Visit [facility] [address] [place] [address] Tiffanie Smyth DPM [address] [place] [address] 10/22/2025 2:30 PM EST Office Visit [facility] [address] [place] [address] Khoa Godinez MD [address] [place] [address] documented as of this encounter Visit Diagnoses Not on filedocumented in this encounter Care Teams Cat Cracker Operator Relationship Specialty Start Date End Date Khoa Godinez MD PCP - General Family Medicine 04/08/23 09/12/24 Khoa Godinez MD 112 [address] [facility] 100 [place] [address] PCP - ACO Reach 12/31/23 Khoa Godinez MD 112 [address] [facility] 100 [place] [address] (Fax) PCP - General Family Medicine 12/27/24 Jude Beach MD [address] [place] [address] Referring Physician Urology 12/09/23 Tiffanie Smyth DPM [address] [place] [address] Referring Physician Podiatry 12/09/23 Larissa Leavitt, RN [address] [facility] 230 [place] [address] Registered Nurse Family Medicine 02/13/25 Callie Mora MD 595 [place] [address] Referring Physician General Surgery 05/07/25 [place] [address] [place] [address] Referring Physician Ophthalmology 05/07/25 Shani Mohan DO 703 [facility] 353 [place] [address] Referring Physician Neurology 05/07/25 documented as of this encounter
--- OUTSIDE RECORDS SUMMARY | 2025-05-15 12:41 | XMS_ITS | Encounter Summary ---
Author Organization [facility] Address [address] [place] [address] Care Team Providers Care Feather Shaper Name Role Phone Jude Beach MD Unavailable +[phone] Tiffanie Smyth DPM Unavailable +[phone] Khoa Bowles MD Unavailable +[phone] Khoa Bowles MD Primary Care Provider + [phone] Larissa Leavitt RN Unavailable +[phone] Callie Mora MD Unavailable [phone] Skinny White MD Unavailable +[phone] Shani Mohan DO Unavailable [phone] Encounter Details Date Type Department Care [...] Department Care Team (Late Contact Info) Description 07/12/2025 1:00 PM EDT Procedure Visit [facility] [address] [place] [address] Tiffanie Smyth DPM [address] [place], [place] [address] 10/22/2025 2:30 PM EST Office Visit [facility] [address] [facility] [address] [place] [address] Khoa Bowles MD 112 [facility] [address] [place] [address] documented as of this encounter Procedures Procedure Name Priority Date/Time Associated Diagnosis Comments CT ANKLE LT WO CON 11/18/2024 9: 05 AM EST documented in this encounter Results * CT ANKLE LT WO CON (11/18/2024 9:05 AM EST) Anatomical Region Laterality Modality Other 11/18/2024 9:05 AM EST Narrative 11/18/2024 9:08 AM EST [place] [id number] CT Scan Report Signed Patient: MANUEL BALDERAS MR#: [id number] : 1950 Acct:[id number] Age/Sex: 74 / M ADM Date: 11/17/24 Loc: CT Attending Dr: Non-Staff Physician Minerva Ordering Physician: Prince Greer M.D. Date of Service: 11/17/24 Procedure(s): CT ankle LT wo con Accession Number(s): [id number] cc: KHOA BOWLES [address] [address] Patient Name: MANUEL BALDERAS MRN: [id number] date: 1950 Sex: M Assigned Patient Location: CT Current Patient Location: CT Accession/Order Number: [id number] Exam Date: 11/17/2024 09:52 Report Date: 11/18/2024 [...] Dictated By: Kala Landers M.D. Signed By: 11/18/24907 DD/ 4 TD/TT: Mirror Framer: Procedure Note Radiology, Radiologist, - 11/18/2024 [place] [address] CT Scan Report Signed Patient: MANUEL BALDERAS JMR#: [id number] : 1950Acct:[id number] Age/Sex: 74 / MADM Date: 11/17/24 Loc: CT Attending Dr: Non-Staff Physician Minreva Ordering Physician: Prince Greer M.D. Date of Service: 11/17/24 Procedure(s): CT ankle LT wo con Accession Number(s): [id number] cc: KHOA BOWLES [place] [address] Patient Name: MANUEL BALDERAS MRN: [id number] date: 1950 Sex: M Assigned Patient Location: CT Current Patient Location: CT Accession/Order Number: [id number] Exam Date: 11/17/2024 09:52 Report Date: 11/18/2024 [...] bony fusion across the posterior subtalar joint okklybrmo14% to 75% of the elbow joint. Minor [...] Landers M.D. Signed By:11/18/24907 DD/ 4 TD/TT: Mirror Framer: us Generic External Data Provider [facility] Final Result documented in this encounter Visit Diagnoses Not on filedocumented in this encounter Additional Health Concerns Assessment Noted Time PHQ-9 Depression Total Score: 2 04/03/20 24 11:00 AM EDT documented as of this encounter Care Teams Feather Shaper Relationship Specialty Start Date End Date Khoa Bowles MD [address] [address] (Fax) PCP - ACO Reach 12/31/23 Khoa Bowles MD [address] [address] (Fax) PCP - General Family Medicine 12/27/24 Jude Beach MD [address] [place] [address] Referring Physician Urology 12/09/23 Tiffanie Smyth DPM [address] [place] [address] Referring Physician Podiatry 12/09/23 Larissa Leavitt, RN [address] [place] [address] Registered Nurse Family Medicine 02/13/25 Callie Mora MD [address] [place] [address] Referring Physician General Surgery 05/07/25 Skinny White MD [address] [place] [address] Referring Physician Ophthalmology 05/07/25 Shani Mohan DO [address] [place] [address] 353 [place] [address] Referring Physician Neurology 05/07/25 documented as of this encounter
--- OUTSIDE RECORDS SUMMARY | 2025-05-15 12:41 | XMS_ITS | Encounter Summary ---
Author Organization [facility] Address [address] [place] [address] Care Team Providers Care Hollow Handle Knife Assembler Name Role Phone Jude Beach MD Unavailable +[phone] Tiffanie Smyth DPM Unavailable +[phone] Khoa Godinez MD Unavailable +[phone] Khoa Godinez MD Primary Care Provider Larissa Leavitt RN Unavailable +[phone] Callie Mora MD Unavailable [phone] Skinny White MD Unavailable +[phone] Shani Mohan DO Unavailable [phone] Reason for Visit * Reason Comments Med Refill Encounter Details Date Type Department Care Team (Late st Contact Info) Description 04/30/2025 Refill [facility] S [address] [place] [address] Khoa Godinez MD 112 [facility] 100 [place] [address] (Fax) Type 2 diabetes mellitus with hyperglycemia (HCC) Social History Tobacco Use Types Packs/Day [...] encounter Miscellaneous Notes * Telephone Encounter - Khoa Godinez MD - 05/08/2025 7:42 AM EDT Let Abelino no that I have limited [...] Procedure Visit [facility] [address] [place] [address] Tiffanie Smyth, DPM [address] [place] [address] 10/22/2025 2:30 PM EST Office Visit [facility] [address] [place] [address] Khoa Godinez MD [address] [place] [address] (Fax) documented as of this encounter Visit Diagnoses Diagnosis Type 2 diabetes mellitus with hyperglycemia (HCC) documented in this encounter Additional Health Concerns Assessment Noted Time PHQ-9 Depression Total Score: 2 04/03/20 24 11:00 AM EDT documented as of this encounter Care Teams Hollow Handle Knife Assembler Relationship Specialty Start Date End Date Khoa Godinez MD [address] [place] [address] PCP - ACO Reach 12/31/23 Khoa Godinez MD [address] [place] [address] (Fax) PCP - General Family Medicine 12/27/24 Jude Beach MD 290 [place] [address] Referring Physician Urology 12/09/23 Tiffanie Smyth DPM [address] [place] [address] Referring Physician Podiatry 12/09/23 Larissa Leavitt, RN [address] [facility] 230 [place], [place] [address] Registered Nurse Family Medicine 02/13/25 Callie Mora MD 595 [place] [address] Referring Physician General Surgery 05/07/25 Skinny White MD 2600 [place] [address] Referring Physician Ophthalmology 05/07/25 Shani Mohan DO [address] [address] Referring Physician Neurology 05/07/25 documented as of this encounter
--- OUTSIDE RECORDS SUMMARY | 2025-05-15 12:41 | XMS_ITS ---
Author Organization [facility] Address [address] [place] [address] Care Team Providers Care Twister In Name Role Phone Jude Beach MD Unavailable [phone] Tiffanie Smyth DPM Unavailable +[phone] Khoa Godniez MD Unavailable +[phone] Khoa Godinez MD Primary Care Provider + [phone] Larissa Leavitt RN Unavailable +[phone] Callie Mora MD Unavailable [phone] Skinny White MD Unavailable +[phone] Shani Mohan DO Unavailable [phone] Chronic Care Management (CCM) Status:Enrolled (Active) Start date:02/13/2025 Enrollment date:02/13/2025 Enrollment reason:Referred by provider Overview Please assess for Care Management needs. 02/13/25, 3:02 PM - Larissa Leavitt RN- Patient gives verbal consent to be enrolled in CCM Program and understands there could be a bill for this service. CCM Bill No Case Team Name Relationship Phone Larissa Leavitt RN(Responsible Staff) Hermiloe niya Nurse [phone] Continued Care and Services Coordination
== END 2025-05-15 12:39 | disposition home or self-care (01) ==
LOC: PST 12:38
PROVIDERS: PCP Family Medicine; Visit Provider Urology
DX: Z01.818 Encounter for other preprocedural examination (principal); R97.20 Elevated prostate specific antigen [PSA]

== ENCOUNTER 2025-05-22 07:46 | Day surgery (SDC) | payer MEDICARE, SELFPAY ==
--- OUTSIDE RECORDS SUMMARY | 2025-05-22 07:53 | XMS_ITS | Encounter Summary ---
Author Organization [facility] Address [address] [facility] [place] [address] Care Team Providers Care Orchestra Conductor Name Role Phone Khoa Godinez MD Primary Care Provider + [phone] Jude Beach MD Unavailable +[phone] Tiffanie Smyth DPM Unavailable [phone] Khoa Godinez MD Unavailable [phone] Khoa Godinez MD Primary Care Provider +[phone] Larissa Leavitt RN Unavailable +[phone] Callie Mora MD Unavailable [phone] Skinny White MD Unavailable +[phone] Shani Mohan DO Unavailable [phone] Encounter Details Date Type Department Care Team (Late st Contact Info) Description 03/09/2024 Abstract [facility] [address] [place] [address] Khoa Godinez MD [address] [place] [address] Social History Tobacco Use Types Packs/Day Years [...] Procedure Visit [facility] [address] [place] [address] Tiffanie Smyth DPM 1900 [place] [address] 10/22/2025 2:30 PM EST Office Visit [facility] [address] [place] [address] Khoa Godinez MD [address] [place] [address] documented as of this encounter Visit Diagnoses Not on filedocumented in this encounter Care Teams Orchestra Conductor Relationship Specialty Start Date End Date Khoa Godinez MD (Fax) PCP - General Family Medicine 04/08/23 09/12/24 Khoa Godinez MD [address] [place] [address] (Fax) PCP - ACO Reach 12/31/23 Khoa Godinez MD [address] [place] [address] (Fax) PCP - General Family Medicine 12/27/24 Jude Beach MD [address] [place] [address] Referring Physician Urology 12/09/23 Tiffanie Smyth DPM [address] [place] [address] Referring Physician Podiatry 12/09/23 Larissa Leavitt, RN 2500 [address] [facility] 230 [place] [address] Registered Nurse Family Medicine 02/13/25 Callie Mora MD 595 [place] [address] Referring Physician General Surgery 05/07/25 Skinny White MD [address] [place] [address] Referring Physician Ophthalmology 05/07/25 Shani Mohan DO [address] [phone] Referring Physician Neurology 05/07/25 documented as of this encounter
--- OUTSIDE RECORDS SUMMARY | 2025-05-22 07:53 | XMS_ITS | Encounter Summary ---
Author Organization [facility] Address [address] [place] [address] Care Team Providers Care Application Development Specialist Name Role Phone Khoa Godinez MD Primary Care Provider + [phone] Jude Beach MD Unavailable [phone] Tiffanie Smyth DPM Unavailable [phone] Khoa Godinez MD Unavailable +[phone] Khoa Godinez MD Primary Care Provider +[phone] Larissa Leavitt RN Unavailable +[phone] Callie Mora MD Unavailable [phone] Skinny White MD Unavailable [phone] Shani Mohan DO Unavailable [phone] Reason for Visit * Reason Comments Med Refill Encounter Details Date Type Department Care Team (Late st Contact Info) Description 01/27/2024 Refill [facility] [address] [facility] [place] [address] Khoa Godinez MD [address] [place] [address] (Fax) Lymphedema of both lower extremities Social [...] Visit [facility] [address] [place] [address] Tiffanie Smyth DPM 1900 [place] [address] 10/22/2025 2:30 PM EST Office Visit [facility] [address] [place] [address] Khoa Godinez MD [address] [place] [address] (Fax) documented as of this encounter Visit Diagnoses Diagnosis Lymphedema of both lower extremities documented in this encounter Care Teams Application Development Specialist Relationship Specialty Start Date End Date Khoa Godinez MD (Fax) PCP - General Family Medicine 04/08/23 09/12/24 Khoa Godinez MD [address] [place] [address] (Fax) PCP - ACO Reach 12/31/23 Khoa Godinez MD [address] [place] [address] PCP - General Family Medicine 12/27/24 Jude Beach MD [address] [place] [address] Referring Physician Urology 12/09/23 Tiffanie Smyth DPM [address] [facility] [place] [address] Referring Physician Podiatry 12/09/23 Larissa Leavitt, CORDELL [address] [facility] 230 [place] [address] Registered Nurse Family Medicine 02/13/25 Callie Mora MD [address] [place] [address] Referring Physician General Surgery 05/07/25 Skinny White MD 2600 [place] [address] Referring Physician Ophthalmology 05/07/25 Shani Mohan DO [address] [phone] Referring Physician Neurology 05/07/25 documented as of this encounter
--- OUTSIDE RECORDS SUMMARY | 2025-05-22 07:53 | XMS_ITS | Encounter Summary ---
Author Organization [facility] Address [address] [facility] [place] [address] Care Team Providers Care Glove Parts Cutter Name Role Phone Khoa Godinez MD Primary Care Provider + [phone] Jude Beach MD Unavailable +[phone] Tiffanie Smyth DPM Unavailable +[phone] Khoa Godinez MD Unavailable +[phone] Khoa Godinez MD Primary Care Provider + [phone] Larissa Leavitt RN Unavailable +[phone] Callie Mora MD Unavailable +[phone] Skinny White MD Unavailable +[phone] Shani Mohan DO Unavailable [phone] Encounter Details Date Type Department Care Team (Late st Contact Info) Description 11/22/2023 Abstract [facility] [address] [place] [address] Khoa Godinez MD [address] [place] [address] Social History Tobacco Use Types Packs/Day Years [...] Procedure Visit [facility] [address] [place] [address] Tiffanie Smyth DPM 1900 [place] [address] 10/22/2025 2:30 PM EST Office Visit [facility] [address] [place] [address] Khoa Godinez MD [address] [place] [address] documented as of this encounter Visit Diagnoses Not on filedocumented in this encounter Care Teams Glove Parts Cutter Relationship Specialty Start Date End Date Khoa Godinez MD (Fax) PCP - General Family Medicine 04/08/23 09/12/24 Khoa Godinez MD [address] [place] [address] (Fax) PCP - ACO Reach 12/31/23 Khoa Godinez MD [address] [place] [address] (Fax) PCP - General Family Medicine 12/27/24 Jude Beach MD [address] [place] [address] Referring Physician Urology 12/09/23 Tiffanie Smyth DPM [address] [place] [address] Referring Physician Podiatry 12/09/23 Larissa Leavitt, RN [address] [facility] 230 [place] [address] Registered Nurse Family Medicine 02/13/25 Callie Mora MD 595 [place] [address] Referring Physician General Surgery 05/07/25 Skinny White MD [address] [place] [address] Referring Physician Ophthalmology 05/07/25 Shani Mohan DO [address] [phone] Referring Physician Neurology 05/07/25 documented as of this encounter
--- OUTSIDE RECORDS SUMMARY | 2025-05-22 07:53 | XMS_ITS | Encounter Summary ---
Author Organization [employer] Address [facility] [id number] [address] [place] [address] Care Team Providers Care Electric Power Machine Operator Name Role Phone Khoa Godinez MD Primary Care Provider [phone] Encounter Details Date Type Department Care Team (Late st Contact Info) Description 05/11/2024 Telephone [facility] [address] [place] [address] Callie Mora MD [address], [facility] [address] [place] [address] Social History Tobacco Use Types Packs/Day Years [...] compression stockings. They can be reached at [phone] Thank you * Telephone Encounter - Dianne [...] AM EDT Office Visit [facility] [place] [address] [place] [address] Callie Mora MD [address], [address] [address] documented as of this encounter Visit Diagnoses Not on filedocumented in this encounter Care Teams Electric Power Machine Operator Relationship Specialty Start Date End Date Khoa Godinez MD PCP - General 12/09/17 documented as of this encounter
--- OUTSIDE RECORDS SUMMARY | 2025-05-22 07:53 | XMS_ITS | Encounter Summary ---
Author Organization [facility] Address [address] [facility] [place] [address] Care Team Providers Care Bailiff Name Role Phone Khoa Godinez MD Primary Care Provider + [phone] Jude Beach MD Unavailable +[phone] Tiffanie Smyth DPM Unavailable +[phone] Khoa Godinez MD Unavailable +[phone] Khoa Godinez MD Primary Care Provider +-[phone] Larissa Leavitt RN Unavailable +[phone] Callie Mora MD Unavailable +[phone] Skinny White MD Unavailable +[phone] Shani Mohan DO Unavailable [phone] Encounter Details Date Type Department Care Team (Late st Contact Info) Description 02/21/2024 Abstract [facility] [address] [place] [address] Khoa Godinez MD [address] [place] [address] Social History Tobacco Use Types Packs/Day Years [...] Procedure Visit [facility] [address] [place] [address] Tiffanie Smyth DPM 1900 [place] [address] 10/22/2025 2:30 PM EST Office Visit [facility] [address] [place] [address] Khoa Godinez MD [address] [place] [address] documented as of this encounter Visit Diagnoses Not on filedocumented in this encounter Care Teams Bailiff Relationship Specialty Start Date End Date Khoa Godinez MD (Fax) PCP - General Family Medicine 04/08/23 09/12/24 Khoa Godinez MD [address] [place] [address] (Fax) PCP - ACO Reach 12/31/23 Khoa Godinez MD [address] [place] [address] (Fax) PCP - General Family Medicine 12/27/24 Jude Beach MD [address] [place] [address] Referring Physician Urology 12/09/23 Tiffanie Smyth DPM [address] [place] [address] Referring Physician Podiatry 12/09/23 Larissa Leavitt, RN [address] [facility] 230 [place] [address] Registered Nurse Family Medicine 02/13/25 Callie Mora MD 595 [place] [address] Referring Physician General Surgery 05/07/25 Skinny White MD [address] [place] [address] Referring Physician Ophthalmology 05/07/25 Shani Mohan DO [address] [phone] Referring Physician Neurology 05/07/25 documented as of this encounter
--- OUTSIDE RECORDS SUMMARY | 2025-05-22 07:53 | XMS_ITS | Encounter Summary ---
Author Organization [facility] Address [address] [place] [address] Care Team Providers Care Retail Sales Associate Seasonal Name Role Phone Khoa Godinez MD Primary Care Provider + [phone] Jude Beach MD Unavailable +[phone] Tiffanie Smyth DPM Unavailable +[phone] Khoa Godinez MD Unavailable +- [phone] Khoa Godinez MD Primary Care Provider +[phone] Larissa Leavitt RN Unavailable +[phone] Callie Mora MD Unavailable +[phone] Skinny White MD Unavailable +[phone] Shani Mohan DO Unavailable [phone] Reason for Visit * Reason Comments Med Refill Encounter Details Date Type Department Care Team (Late st Contact Info) Description 05/01/2024 Refill [facility] [address] [place] [address] Khoa Godinez MD [address] [facility] [address] [place] [address] (Fax) Essential hypertension ; Type 2 diabetes [...] Procedure Visit [facility] [address] [place] [address] Tiffanie Smyth, DPM [address] [place], [place] [address] 10/22/2025 2:30 PM EST Office Visit [facility] [address] [place] [address] Khoa Godinez MD [address] [place] [address] (Fax) documented as of this encounter Visit Diagnoses Diagnosis Essential hypertension Unspecified essential hypertension Type 2 diabetes mellitus with hyperglycemia, without long-term current use of insulin (HCC) Mixed hyperlipidemia Mixed hyperlipidemia documented in this encounter Additional Health Concerns Assessment Noted Time PHQ-9 Depression Total Score: 2 04/03/20 24 11:00 AM EDT documented as of this encounter Care Teams Retail Sales Associate Seasonal Relationship Specialty Start Date End Date Khoa Godinez MD (Fax) PCP - General Family Medicine 04/08/23 09/12/24 Khoa Godinez MD [address] [place] [address] (Fax) PCP - ACO Reach 12/31/23 Khoa Godinez MD [address] [place] [address] (Fax) PCP - General Family Medicine 12/27/24 Jude Beach MD [address] [place] [address] Referring Physician Urology 12/09/23 Tiffanie Smyth DPM [address] [place] [address] Referring Physician Podiatry 12/09/23 Larissa Leavitt, RN [address] [facility] 230 [place] [address] Registered Nurse Family Medicine 02/13/25 Callie Mora MD [address] [place] [address] Referring Physician General Surgery 05/07/25 Skinny White MD [address]00 [place] [address] Referring Physician Ophthalmology 05/07/25 Shani Mohan DO [address] [phone] Referring Physician Neurology 05/07/25 documented as of this encounter
--- OUTSIDE RECORDS SUMMARY | 2025-05-22 07:53 | XMS_ITS | Encounter Summary ---
Author Organization [facility] Address [address] [place] [address] Care Team Providers Care Commercial Real Estate Appraiser Name Role Phone Khoa Godinez MD Primary Care Provider + [phone] Jude Beach MD Unavailable +[phone] Tiffanie Smyth DPM Unavailable +[phone] Khoa Godinez MD Unavailable +[phone] Khoa Godinez MD Primary Care Provider +-[phone] Larissa Leavitt RN Unavailable +[phone] Callie Mora MD Unavailable +[phone] Skinny White MD Unavailable +[phone] Shani Mohan DO Unavailable [phone] Encounter Details Date Type Department Care Team (Late st Contact Info) Description 02/21/2024 Abstract [facility] [address] [place] [address] Khoa Godinez MD [address] [place] [address] Social History Tobacco Use Types Packs/Day Years [...] Procedure Visit [facility] [address] [place] [address] Tiffanie Smyth DPM 1900 [place] [address] 10/22/2025 2:30 PM EST Office Visit [facility] [address] [place] [address] Khoa Godinez MD [address] [place] [address] documented as of this encounter Visit Diagnoses Not on filedocumented in this encounter Care Teams Commercial Real Estate Appraiser Relationship Specialty Start Date End Date Khoa Godinez MD (Fax) PCP - General Family Medicine 04/08/23 09/12/24 Khoa Godinez MD [address] [place] [address] (Fax) PCP - ACO Reach 12/31/23 Khoa Godinez MD [address] [place] [address] (Fax) PCP - General Family Medicine 12/27/24 Jude Beach MD [address] [place] [address] Referring Physician Urology 12/09/23 Tiffanie Smyth DPM [address] [place] [address] Referring Physician Podiatry 12/09/23 Larissa Leavitt, RN [address] [facility] 230 [place] [address] Registered Nurse Family Medicine 02/13/25 Callie Mora MD 595 [place] [address] Referring Physician General Surgery 05/07/25 Skinny White MD [address] [place] [address] Referring Physician Ophthalmology 05/07/25 Shani oMhan DO [address] [phone] Referring Physician Neurology 05/07/25 documented as of this encounter
--- OUTSIDE RECORDS SUMMARY | 2025-05-22 07:53 | XMS_ITS | Encounter Summary ---
Author Organization [facility] Address [address] [facility] [place] [address] Care Team Providers Care Hand Shoes Sewer Name Role Phone Khoa Godinez MD Primary Care Provider + [phone] Jude Beach MD Unavailable +[phone] Tiffanie Smyth DPM Unavailable +[phone] Khoa Godinez MD Unavailable +[phone] Khoa Godinez MD Primary Care Provider +-[phone] Larissa Leavitt RN Unavailable +[phone] Callie Mora MD Unavailable +[phone] Skinny White MD Unavailable +[phone] Shani Mohan DO Unavailable [phone] Encounter Details Date Type Department Care Team (Late st Contact Info) Description 02/27/2024 Orders Only [facility] [address] [place] [address] Khoa Godinez MD [address] [place] [address] (Fax) Social History Tobacco Use Types Packs/Day [...] Visit [facility] [address] [place] [address] Tiffanie Smyth DPM 1900 [place] [address] 10/22/2025 2:30 PM EST Office Visit [facility] [address] [place] [address] Khoa Godinez MD [address] [place] [address] documented as of this encounter Visit Diagnoses Not on filedocumented in this encounter Care Teams Hand Shoes Sewer Relationship Specialty Start Date End Date Khoa Godinez MD (Fax) PCP - General Family Medicine 04/08/23 09/12/24 Khoa Godinez MD [address] [place] [address] PCP - ACO Reach 12/31/23 Khoa Godinez MD [address] [place] [address] (Fax) PCP - General Family Medicine 12/27/24 Jude Beach MD [address] [place] [address] Referring Physician Urology 12/09/23 Tiffanie Smyth DPM [address] [place] [address] Referring Physician Podiatry 12/09/23 Larissa Leavitt, RN [address] [facility] 230 [place] [address] Registered Nurse Family Medicine 02/13/25 Callie Mora MD 595 [facility] [place] [address] Referring Physician General Surgery 05/07/25 Skinny White MD [address] [place] [address] Referring Physician Ophthalmology 05/07/25 Shani Mohan DO [address] [place] [phone] Referring Physician Neurology 05/07/25 documented as of this encounter
--- OUTSIDE RECORDS SUMMARY | 2025-05-22 07:53 | XMS_ITS | Encounter Summary ---
Author Organization [facility] Address [address] [place] [address] Care Team Providers Care Chest Pain Coordinator Name Role Phone Khoa Godinez MD Primary Care Provider + [phone] Jude Beach MD Unavailable +[phone] Tiffanie Smyth DPM Unavailable +[phone] Khoa Godinez MD Unavailable +[phone] Khoa Godinez MD Primary Care Provider +-[phone] Larissa Leavitt RN Unavailable +[phone] Callie Mora MD Unavailable +[phone] Skinny White MD Unavailable +[phone] Shani Mohan DO Unavailable [phone] Encounter Details Date Type Department Care Team (Late st Contact Info) Description 02/08/2024 Abstract [facility] [address] [place] [address] Daron Saenz MD [address] [place] [address] Social History Tobacco Use Types Packs/Day Years [...] Procedure Visit [facility] [address] [address] Tiffanie Smyth DPM 1900 [place] [address] 10/22/2025 2:30 PM EST Office Visit [facility] [address] [place] [address] Khoa Godinez MD [address] [place] [address] documented as of this encounter Visit Diagnoses Not on filedocumented in this encounter Care Teams Chest Pain Coordinator Relationship Specialty Start Date End Date Khoa Godinez MD (Fax) PCP - General Family Medicine 04/08/23 09/12/24 Khoa Godinez MD [address] [place] [address] (Fax) PCP - ACO Reach 12/31/23 Khoa Godinez MD [address] [place] [address] (Fax) PCP - General Family Medicine 12/27/24 Jude Beach MD [address] [place] [address] Referring Physician Urology 12/09/23 Tiffanie Smyth DPM [address] [place] [address] Referring Physician Podiatry 12/09/23 Larissa Leavitt, RN [address] [facility] 230 [place] [address] Registered Nurse Family Medicine 02/13/25 Callie Mora MD 595 [place] [address] Referring Physician General Surgery 05/07/25 Skinny White MD [address] [place] [address] Referring Physician Ophthalmology 05/07/25 Shani Mohan DO [address] [place] [phone] Referring Physician Neurology 05/07/25 documented as of this encounter
--- OUTSIDE RECORDS SUMMARY | 2025-05-22 07:53 | XMS_ITS ---
Author Organization [facility] Address [address] [place] [address] Care Team Providers Care Facility Maintenance Worker Name Role Phone Jude Beach MD Unavailable +[phone] Tiffanie Smyth DPM Unavailable +[phone] Khoa Godinez MD Unavailable +[phone] Khoa Godinez MD Primary Care Provider + [phone] Larissa Leavitt RN Unavailable +[phone] Callie Mora MD Unavailable +[phone] Skinny White MD Unavailable +[phone] Shani Mohan DO Unavailable [phone] Chronic Care Management (CCM) Status:Enrolled (Active) [...] Larissa Leavitt RN(Responsible Staff) Hermiloe niya Nurse [phone] Continued Care and Services Coordination
--- OUTSIDE RECORDS SUMMARY | 2025-05-22 07:53 | XMS_ITS | Encounter Summary ---
Author Organization [facility] Address [address] [place] [address] Care Team Providers Care Tank House Operator Helper Name Role Phone Khoa Godinez MD Primary Care Provider + [phone] Jude Beach MD Unavailable +[phone] Tiffanie Smyth DPM Unavailable +[phone] Khoa Godinez MD Unavailable +[phone] Khoa Godinez MD Primary Care Provider +-[phone] Larissa Leavitt RN Unavailable +[phone] Callie Mora MD Unavailable +[phone] Skinny White MD Unavailable +[phone] Shani Mohan DO Unavailable [phone] Encounter Details Date Type Department Care Team (Late st Contact Info) Description 02/09/2024 Abstract [facility] [address] [place] [address] Daron Saenz MD [address] [place] [address] Social History Tobacco Use Types Packs/Day Years [...] Procedure Visit [facility] [address] [place] [address] Tiffanie Smyth DPM [address] [place] [address] 10/22/2025 2:30 PM EST Office Visit [facility] [address] [place] [address] Khoa Godinez MD [address] [place] [address] (Fax) documented as of this encounter Visit Diagnoses Not on filedocumented in this encounter Care Teams Tank House Operator Helper Relationship Specialty Start Date End Date Khoa Godinez MD (Fax) PCP - General Family Medicine 04/08/23 09/12/24 Khoa Godinez MD [address] [place] [address] (Fax) PCP - ACO Reach 12/31/23 Khoa Godinez MD [address] [place] [address] (Fax) PCP - General Family Medicine 12/27/24 Jude Beach MD [address] [place] [address] Referring Physician Urology 12/09/23 Tiffanie Smyth DPM [address] [place] [address] Referring Physician Podiatry 12/09/23 Larissa Leavitt, RN [address] [facility] 230 [place] [address] Registered Nurse Family Medicine 02/13/25 Callie Mora MD 595 [facility] [address] Referring Physician General Surgery 05/07/25 Skinny White MD [address] [place] [address] Referring Physician Ophthalmology 05/07/25 Shani Mohan DO 703 [facility] 353 [place] [phone] Referring Physician Neurology 05/07/25 documented as of this encounter
--- OUTSIDE RECORDS SUMMARY | 2025-05-22 07:53 | XMS_ITS | Encounter Summary ---
Author Organization [facility] Address [address] [place] [address] Care Team Providers Care Golf Instructor Name Role Phone Khoa Godinez MD Primary Care Provider + [phone] Jude Beach MD Unavailable +[phone] Tiffanie Smyth DPM Unavailable +[phone] Khoa Godinez MD Unavailable +[phone] Khoa Godinez MD Primary Care Provider +-[phone] Larissa Leavitt RN Unavailable +[phone] Callie Mora MD Unavailable +[phone] Skinny White MD Unavailable +[phone] Shani Mohan DO Unavailable [phone] Encounter Details Date Type Department Care Team (Late st Contact Info) Description 12/22/2023 Abstract [facility] [address] [place] [address] Yaquelin Lakhani MD [address] [place], [place] [address] Social History Tobacco Use Types Packs/Day Years [...] Procedure Visit [facility] [address] [place] [address] Tiffanie Smyth DPM [address] [place] [address] 10/22/2025 2:30 PM EST Office Visit [facility] [address] [place] [address] Khoa Godinez MD [address] [place] [address] (Fax) documented as of this encounter Visit Diagnoses Not on filedocumented in this encounter Care Teams Golf Instructor Relationship Specialty Start Date End Date Khoa Godinez MD PCP - General Family Medicine 04/08/23 09/12/24 Khoa Godinez MD [address] [place] [address] (Fax) PCP - ACO Reach 12/31/23 Khoa Godinez MD [address] [facility] [address] [place] [address] (Fax) PCP - General Family Medicine 12/27/24 Jude Beach MD [address] [place] [address] Referring Physician Urology 12/09/23 Tiffanie Smyth DPM [address] [place] [address] Referring Physician Podiatry 12/09/23 Larissa Leavitt, RN [address] [facility] 230 [place] [address] Registered Nurse Family Medicine 02/13/25 Callie Mora MD 595 [place] [address] Referring Physician General Surgery 05/07/25 [place] [address] [place] [address] Referring Physician Ophthalmology 05/07/25 Shani Mohan DO [address] [phone] Referring Physician Neurology 05/07/25 documented as of this encounter
--- OUTSIDE RECORDS SUMMARY | 2025-05-22 07:53 | XMS_ITS | Encounter Summary ---
Author Organization [facility] Address [address] [place] [address] Care Team Providers Care Insurance Account Executive Name Role Phone Khoa Godinez MD Primary Care Provider + [phone] Jude Beach MD Unavailable +[phone] Tiffanie Smyth DPM Unavailable +[phone] Khoa Godinez MD Unavailable +[phone] Khoa Godinez MD Primary Care Provider +-[phone] Larissa Leavitt RN Unavailable +[phone] Callie Mora MD Unavailable +[phone] Skinny White MD Unavailable +[phone] Shani Mohan DO Unavailable [phone] Encounter Details Date Type Department Care Team (Late st Contact Info) Description 02/08/2024 Abstract [facility] [address] [place] [address] Daron Saenz MD [address] [place] [address] Social History Tobacco Use Types Packs/Day Years [...] Procedure Visit [facility] [address] [place] [address] Tiffanie Smyth DPM [address] [place] [address] 10/22/2025 2:30 PM EST Office Visit [facility] [address] [place] [address] Khoa Godinez MD [address] [place] [address] (Fax) documented as of this encounter Visit Diagnoses Not on filedocumented in this encounter Care Teams Insurance Account Executive Relationship Specialty Start Date End Date Khoa Godinez MD (Fax) PCP - General Family Medicine 04/08/23 09/12/24 Khoa Godinez MD [address] [place] [address] (Fax) PCP - ACO Reach 12/31/23 Khoa Godinez MD [address] [place] [address] (Fax) PCP - General Family Medicine 12/27/24 Jude Beach MD [address] [place] [address] Referring Physician Urology 12/09/23 Tiffanie Smyth DPM [address] [place] [address] Referring Physician Podiatry 12/09/23 Larissa Leavitt, RN [address] [facility] 230 [place] [address] Registered Nurse Family Medicine 02/13/25 Callie Mora MD [address] [facility] [place] [address] Referring Physician General Surgery 05/07/25 Skinny White MD [address] [place] [address] Referring Physician Ophthalmology 05/07/25 Shani Mohan DO 703 [facility] 353 [place] [phone] Referring Physician Neurology 05/07/25 documented as of this encounter
--- OUTSIDE RECORDS SUMMARY | 2025-05-22 07:53 | XMS_ITS | Encounter Summary ---
Author Organization [facility] Address [address] [place] [address] Care Team Providers Care Child Study Team Director Name Role Phone Khoa Godinez MD Primary Care Provider + [phone] Jude Beach MD Unavailable +[phone] Tiffanie Smyth DPM Unavailable +[phone] Khoa Godinez MD Unavailable [phone] Khoa Godinez MD Primary Care Provider +-[phone] Larissa Leavitt RN Unavailable +[phone] Callie Mora MD Unavailable +[phone] Skinny White MD Unavailable +[phone] Shani Mohan DO Unavailable [phone] Encounter Details Date Type Department Care Team (Late st Contact Info) Description 02/08/2024 Abstract [facility] [address] [place] [address] Daron Saenz MD [address] [place] [address] Social History Tobacco Use Types Packs/Day Years [...] Procedure Visit [facility] [address] [place] [address] Tiffanie Smyth DPM [address] [place] [address] 10/22/2025 2:30 PM EST Office Visit [facility] [address] [place] [address] Khoa Godinez MD [address] [place] [address] documented as of this encounter Visit Diagnoses Not on filedocumented in this encounter Care Teams Child Study Team Director Relationship Specialty Start Date End Date Khoa Godinez MD (Fax) PCP - General Family Medicine 04/08/23 09/12/24 Khoa Godinez MD [address] [place] [address] (Fax) PCP - ACO Reach 12/31/23 Khoa Godinez MD [address] [place] [address] (Fax) PCP - General Family Medicine 12/27/24 Jude Beach MD [address] [place] [address] Referring Physician Urology 12/09/23 Tiffanie Smyth DPM [address] [place] [address] Referring Physician Podiatry 12/09/23 Larissa Leavitt, RN [address] [facility] 230 [place] [address] Registered Nurse Family Medicine 02/13/25 Callie Mora MD [address] [place] [address] Referring Physician General Surgery 05/07/25 Skinny White MD [address] [place] [address] Referring Physician Ophthalmology 05/07/25 Shani Mohan DO [address] [place] [phone] Referring Physician Neurology 05/07/25 documented as of this encounter
--- OUTSIDE RECORDS SUMMARY | 2025-05-22 07:53 | XMS_ITS | Encounter Summary ---
Author Organization [facility] Address [address] [place] [address] Care Team Providers Care Manager Special Events Name Role Phone Khoa Godinez MD Primary Care Provider + [phone] Jude Beach MD Unavailable +[phone] Tiffanie Smyth DPM Unavailable +[phone] Khoa Godinez MD Unavailable +- [phone] Khoa Godinez MD Primary Care Provider +[phone] Larissa Leavitt RN Unavailable +[phone] Callie Mora MD Unavailable +[phone] Skinny White MD Unavailable +[phone] Shani Mohan DO Unavailable [phone] Reason for Visit * Reason Onset Date Comments Med Refill 03/21/2024 Encounter Details Date Type Department Care Team (Late st Contact Info) Description 03/21/2024 Refill [facility] [address] [place] [address] Khoa Godinez MD [address] [place] [address] (Fax) Type 2 diabetes mellitus with hyperglycemia, [...] Visit [facility] [address] [place] [address] Tiffanie Smyth, DPM [address] [place], [place] [address] 10/22/2025 2:30 PM EST Office Visit [facility] [address] [place] [address] Khoa Godinez MD [address] [place] [address] (Fax) documented as of this encounter Visit Diagnoses Diagnosis Type 2 diabetes mellitus with hyperglycemia, without long-term current use of insulin (HCC) documented in this encounter Care Teams Manager Special Events Relationship Specialty Start Date End Date Khoa Godinez MD (Fax) PCP - General Family Medicine 04/08/23 09/12/24 Khoa Godinez MD [address] [facility] 100 [place] [address] (Fax) PCP - ACO Reach 12/31/23 Khoa Godinez MD [address] [facility] 100 [place] [address] (Fax) PCP - General Family Medicine 12/27/24 Jude Beach MD [address] [place] [id number] Referring Physician Urology 12/09/23 Tiffanie Smyth DPM [address] [place], [place] [address] Referring Physician Podiatry 12/09/23 Larissa Leavitt, RN [address] [facility] [address] [place] [address] Registered Nurse Family Medicine 02/13/25 Callie Mora MD [address] [facility] [place] [address] Referring Physician General Surgery 05/07/25 Skinny White MD 2600 [place] [address] Referring Physician Ophthalmology 05/07/25 Sh[address] [facility] 353 [place] [address] Referring Physician Neurology 05/07/25 documented as of this encounter
--- OUTSIDE RECORDS SUMMARY | 2025-05-22 07:53 | XMS_ITS | Encounter Summary ---
Author Organization [facility] Address [address] [facility] [place] [address] Care Team Providers Care Cover Stitch Machine Operator Name Role Phone Khoa Godinez MD Primary Care Provider + [phone] Jude Beach MD Unavailable +[phone] Tiffanie Smyth DPM Unavailable +[phone] Khoa Godinez MD Unavailable +[phone] Khoa Godinez MD Primary Care Provider +[phone] Larissa Leavitt RN Unavailable +[phone] Callie Mora MD Unavailable +[phone] Skinny White MD Unavailable +[phone] Shani Mohan DO Unavailable [phone] Reason for Visit * Reason Onset Date Comments Med Refill 06/09/2024 Encounter Details Date Type Department Care Team (Late st Contact Info) Description 06/09/2024 Refill [facility] [address] [place] [address] Khoa Godinez MD [address] [place] [address] (Fax) Type 2 diabetes mellitus with hyperglycemia, [...] Visit [facility] [address] [place] [address] Tiffanie Smyth, DPM [address] [place], [place] [address] 10/22/2025 2:30 PM EST Office Visit [facility] [address] [place] [address] Khoa Godinez MD [address] [place] [address] (Fax) documented as of this encounter Visit Diagnoses Diagnosis Type 2 diabetes mellitus with hyperglycemia, without long-term current use of insulin (HCC) documented in this encounter Additional Health Concerns Assessment Noted Time PHQ-9 Depression Total Score: 2 04/03/20 24 11:00 AM EDT documented as of this encounter Care Teams Cover Stitch Machine Operator Relationship Specialty Start Date End Date Koha Godinez MD (Fax) PCP - General Family Medicine 04/08/23 09/12/24 Khoa Godinez MD [address] [place] [address] (Fax) PCP - ACO Reach 12/31/23 Khoa Godinez MD [address] [place] [address] (Fax) PCP - General Family Medicine 12/27/24 Jude Beach MD [address] [place] [address] Referring Physician Urology 12/09/23 Tiffanie Smyth DPM [address] [place] [address] Referring Physician Podiatry 12/09/23 Larissa Leavitt, CORDELL [address] [facility] 230 [place], [place] [address] Registered Nurse Family Medicine 02/13/25 Callie Mora MD 595 [place] [address] Referring Physician General Surgery 05/07/25 Skinny White MD 2600 [place] [address] Referring Physician Ophthalmology 05/07/25 Shani Mohan DO [address] [phone] Referring Physician Neurology 05/07/25 documented as of this encounter
--- OUTSIDE RECORDS SUMMARY | 2025-05-22 07:53 | XMS_ITS | Encounter Summary ---
Author Organization [facility] Address [address] [place] [address] Care Team Providers Care Concessions Manager Name Role Phone Khoa Godinez MD Primary Care Provider + [phone] Jude Beach MD Unavailable +[phone] Tiffanie Smyth DPM Unavailable +[phone] Khoa Godinez MD Unavailable [phone] Khoa Godinez MD Primary Care Provider +[phone] Larissa Leavitt RN Unavailable +[phone] Callie Mora MD Unavailable +[phone] Skinny White MD Unavailable +[phone] Shani Mohan DO Unavailable [phone] Reason for Visit * Reason Comments Med Refill Encounter Details Date Type Department Care Team (Late st Contact Info) Description 01/26/2024 Refill [facility] S [address] [facility] [place] [address] Khoa Godinez MD 112 [facility] [address] [place] [address] (Fax) Type 2 diabetes mellitus with hyperglycemia, [...] Procedure Visit [facility] [address] [place] [address] Tiffanie Smyth, DPM [address] [place], [place] [address] 10/22/2025 2:30 PM EST Office Visit [facility] [address] [place] [address] Khoa Godinez MD [address] [facility] [address] [place] [address] (Fax) documented as of this encounter Visit Diagnoses Diagnosis Type 2 diabetes mellitus with hyperglycemia, without long-term current use of insulin (HCC) documented in this encounter Care Teams Concessions Manager Relationship Specialty Start Date End Date Khoa Godinez MD (Fax) PCP - General Family Medicine 04/08/23 09/12/24 Khoa Godinez MD [address] [facility] [address] [place] [address] (Fax) PCP - ACO Reach 12/31/23 Khoa Godinez MD [address] [facility] [address] [place] [address] (Fax) PCP - General Family Medicine 12/27/24 Jude Beach MD [address] [place] [address] Referring Physician Urology 12/09/23 Tiffanie Smyth DPM 1900 [place] [address] Referring Physician Podiatry 12/09/23 Larissa Leavitt, RN [address] [facility] 230 [place] [address] Registered Nurse Family Medicine 02/13/25 Callie Mora MD [address] [place] [address] Referring Physician General Surgery 05/07/25 Skinny White MD 2600 [place] [address] Referring Physician Ophthalmology 05/07/25 Shani Mohan DO [address] [address] Referring Physician Neurology 05/07/25 documented as of this encounter
--- OUTSIDE RECORDS SUMMARY | 2025-05-22 07:53 | XMS_ITS | Encounter Summary ---
Author Organization [facility] Address [address] [place] [address] Care Team Providers Care Social Media Marketing Specialist Name Role Phone Khoa Godinez MD Primary Care Provider + [phone] Jude Beach MD Unavailable +[phone] Tiffanie Smyth DPM Unavailable [phone] Khoa Godinez MD Unavailable +- [phone] Khoa Godinez MD Primary Care Provider +[phone] Larissa Leavitt RN Unavailable +[phone] Callie Mora MD Unavailable +[phone] Skinny White MD Unavailable +[phone] Shani Mohan DO Unavailable [phone] Encounter Details Date Type Department Care Team (Late st Contact Info) Description 02/25/2024 Orders Only [facility] [address] [place] [address] [place] [address] [place] [address] Social History Tobacco Use Types [...] EDT Procedure Visit [facility] [address] [place] [address] Tiffanie Smyth, DPM [address] [place] [address] 10/22/2025 2:30 PM EST Office Visit [facility] [address] [place] [address] Khoa Godinez MD [address] [place] [address] (Fax) documented as of this encounter Procedures [...] on filedocumented in this encounter Care Teams Social Media Marketing Specialist Relationship Specialty Start Date End Date Khoa Godinez MD (Fax) PCP - General Family Medicine 04/08/23 09/12/24 Khoa Godinez MD [address] [place] [address] (Fax) PCP - ACO Reach 12/31/23 Khoa Godinez MD [address] [place] [address] (Fax) PCP - General Family Medicine 12/27/24 Jude Beach MD 290 [place] [address] Referring Physician Urology 12/09/23 Tiffanie Smyth, DPM [address] [place] [address] Referring Physician Podiatry 12/09/23 Larissa Leavitt, RN [address] [facility] 230 [place] [address] Registered Nurse Family Medicine 02/13/25 Callie Mora MD 595 [place] [address] Referring Physician General Surgery 05/07/25 Skinny White MD 2600 [place] [address] Referring Physician Ophthalmology 05/07/25 Shani Mohan DO [address] [address] Referring Physician Neurology 05/07/25 documented as of this encounter
--- OUTSIDE RECORDS SUMMARY | 2025-05-22 07:53 | XMS_ITS | Encounter Summary ---
Author Organization [facility] Address [address] [place] [address] Care Team Providers Care Conference Planner Name Role Phone Khoa Godinez MD Primary Care Provider + [phone] Jude Beach MD Unavailable +[phone] Tiffanie Smyth DPM Unavailable [phone] Khoa Godinez MD Unavailable +- [phone] Khoa Godinez MD Primary Care Provider +[phone] Larissa Leavitt RN Unavailable +[phone] Callie Mora MD Unavailable +[phone] Skinny White MD Unavailable [phone] Shani Mohan DO Unavailable [phone] Encounter Details Date Type Department Care Team (Late st Contact Info) Description 03/22/2024 Orders Only [facility] [address] [facility] [place] [address] Callie Mora MD [address], [address] [address] Social History Tobacco Use Types Packs/Day Years [...] Procedure Visit [facility] [address] [place] [address] Tiffanie Smyth, DPM [address] [place] [address] 10/22/2025 2:30 PM EST Office Visit [facility] [address] [place] [address] Khoa Godinez MD [address] [place] [address] (Fax) documented as of this encounter Procedures [...] on filedocumented in this encounter Care Teams Conference Planner Relationship Specialty Start Date End Date Khoa Godinez MD (Fax) PCP - General Family Medicine 04/08/23 09/12/24 Khoa Godinez MD [address] [place] [address] (Fax) PCP - ACO Reach 12/31/23 Khoa Godinez MD [address] [place] [address] (Fax) PCP - General Family Medicine 12/27/24 Jude Beach MD 290 [place] [address] Referring Physician Urology 12/09/23 Tiffanie Smyth DPM 1900 [place] [address] Referring Physician Podiatry 12/09/23 Larissa Leavitt, RN [address] [facility] 230 [place], [place] [address] Registered Nurse Family Medicine 02/13/25 Callie Mora MD 595 [place] [address] Referring Physician General Surgery 05/07/25 Skinny White MD 2600 [place] [address] Referring Physician Ophthalmology 05/07/25 Shani Mohan DO [address] [address] Referring Physician Neurology 05/07/25 documented as of this encounter
--- OUTSIDE RECORDS SUMMARY | 2025-05-22 07:53 | XMS_ITS | Clinical Summary ---
Author Organization [facility] Address [address] [place] [address] Care Team Providers Care Receptionist Clerk Name Role Phone Unavailable Primary Care Provider Unavailabl e Allergies Active Allergy Reactions Criticality Noted Date Comments Meperidine (Pf) Other: See Comments 02/01/2014 shakes Medications Losartan-Willcox chlorothiazide 100-12.5 mg per tablet Take 1 [...] (#1) 2025 Medical Devices Implanted Type Area Boiler Tube Blower Device Identifier Shelf Expiration Date Model / Serial / Lot Bqo-Lu-S-Kind Implant - [id number] Implanted:Qty: 1 on 02/21/2014 at [facility] Implant [employer] [id number] / / Description:[id number] PERCUFLEX STENT Procedures Procedure Name Priority Date/Time Associated Diagnosis Comments BASIC METABOLIC PANEL Routine 02/22/2014 12:44 AM EDT from Last 3 Months or Most Recently Relevant to Health Maintenance Results * (ABNORMAL) BASIC METABOLIC PNL (02/22/2014 12:44 AM EDT) Glucose 101(H) 65 - 100 mg/dL [facility] BUN 22 10 - 25 mg/dL [facility] Creatinine 1.12 0.70 - 1.40 mg/dL [facility] Sodium 139 135 - 146 mmol/L [facility] Potassium 3.8 3.5 - 5.0 mmol/L [facility] Chloride 104 98 - 110 mmol/L [facility] CO2 23 23 - 32 mmol/L [facility] Anion Gap 12 0 - 15 mmol/L [facility] Calcium 8.5 8.5 - 10.5 mg/dL [facility] Blood specimen (specimen) BLOOD SPECIMEN / Unknown 02/22/2014 12:44 AM EDT 02/22/2014 12:45 AM EDT us Burke Clemens MD LABORATORY Final Result [facility] [address] [place] [address] from Last 3 Months or Most Recently Relevant to Health Maintenance Insurance BLUE CARD PPO OOS Advance Directives Documents on File Type Date Recorded Patient Load Dropper Expl anation Advance Directive(s) 02/09/2014 11:20 AM
--- OUTSIDE RECORDS SUMMARY | 2025-05-22 07:53 | XMS_ITS | Encounter Summary ---
Author Organization [facility] Address [address] [place] [address] Care Team Providers Care Director Institution Name Role Phone Neli Bowles MD Primary Care Provider + [phone] Jude Beach MD Unavailable +[phone] Tiffanie Smyth DPM Unavailable [phone] Neli Bowles MD Unavailable [phone] Neli Bowles MD Primary Care Provider +-[phone] Larissa Leavitt RN Unavailable +[phone] Callie Mora MD Unavailable +[phone] Skinny White MD Unavailable +[phone] Shani Mohan DO Unavailable [phone] Encounter Details Date Type Department Care [...] EDT Procedure Visit [facility] [address] [place] [address] Tiffanie Smyth, DPM [address] [place] [address] 10/22/2025 2:30 PM EST Office Visit [facility] [address] [place] [address] Neli Bowles MD [address] [place] [address] documented as of this encounter Procedures Procedure Name Priority Date/Time Associated Diagnosis Comments VC EXT VENOUS REFLUX ROSE MARY LMTD 03/22/2024 8:57 AM EDT documented in this encounter Results * VC EXT VENOUS REFLUX ROSE MARY LMTD (03/22/2024 8:57 AM EDT) Anatomical Region Laterality Modality Other 03/22/2024 8:57 AM EDT Narrative 03/22/2024 8:58 AM EDT [address] [address] Vein Report Signed Patient: MANUEL BALDERAS MR#: [id number] : 1950 Acct:[id number] Age/Sex: 73 / M ADM Date: 03/20/24 Loc: VC Attending Dr: Callie Mora M.D. Ordering Physician: Callie Mora M.D. Date of Service: 03/20/24 Procedure(s): VC EXT Venous Reflux ROSE MARY LMTD Accession Number(s): [id number] cc: NELI BOWLES ; Callie Mora M.D. Patient Name: MANUEL BALDERAS MR#: [id number] : 1950 Exam Date: 03/20/2024 Ordering Doctor: [...] calf GSV. Flow: Mild deep venous reflux. 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 Hjqy-gs-yfzhwtbi right anterior accessory saphenous vein venous insufficiency with borderline dilatation 5. Mild bilateral deep vein reflux 6. Bilateral popliteal fossa collections likely representing popliteal cysts 7. Bilateral incompetent varicose veins 1. Dictated by: Mikie Latham MD on 03/22/2024 at 08:54 Approved by: Mikie Latham MD on 03/22/2024 at 08:57 Dictated By: Mikie Latham M.D. Signed By: 03/22/24 0858 DD/ 0857 TD/TT: Oil Lease Operator: Procedure Note Radiology, Radiologist, - 03/22/2024 [place] [address] Vein Report Signed Patient: MANUEL BALDERAS JMR#: [id number] : 1950Acct:[id number] Age/Sex: 73 / MADM Date: 03/20/24 Loc: VC Attending Dr: Callie Mora M.D. Ordering Physician: Callie Mora M.D. Date of Service: 03/20/24 Procedure(s): VC EXT Venous Reflux ROSE MARY LMTD Accession Number(s): [id number] cc: NELI BOWLES ; Callie Mora M.D. Patient Name: MANUEL BALDERAS MR#: [id number] : 1950 Exam Date: 03/20/2024 Ordering Doctor: [...] calf GSV. Flow: Mild deep venous reflux. 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 Uxxi-fz-nbgaujmi right anterior accessory saphenous vein venous insufficiency with borderline dilatation 5. Mild bilateral deep vein reflux 6. Bilateral popliteal fossa collections likely representing poplitealcysts 7. Bilateral incompetent varicose veins 1. Dictated by: Mikie Latham MD on 03/22/2024 at 08:54 Approved by: Mikie Latham MD on 03/22/2024 at 08:57 Dictated By: Mikie Latham M.D. Signed By:03/22/24 0858 DD/ 0857 TD/TT: Oil Lease Operator: [place] External Data Provider [facility] Final Result documented in this encounter Visit Diagnoses Not on filedocumented in this encounter Care Teams Director Institution Relationship Specialty Start Date End Date Neli Bowles MD PCP - General Family Medicine 04/08/23 09/12/24 Neli Bowles MD [address] [address] PCP - ACO Reach 12/31/23 Neli Bowles MD [address] [address] PCP - General Family Medicine 12/27/24 Jude Beach MD [address] [place] [address] Referring Physician Urology 12/09/23 Tiffanie Smyth DPM [address] [facility] [place] [address] Referring Physician Podiatry 12/09/23 Larissa Leavitt, RN [address] [facility] 230 [place] [address] Registered Nurse Family Medicine 02/13/25 Callie Mora MD 595 [facility] [place], [place] [address] Referring Physician General Surgery 05/07/25 Skinny White MD 2600 [place] [address] Referring Physician Ophthalmology 05/07/25 Shani Mohan DO 703 [facility] 353 [place] [address] Referring Physician Neurology 05/07/25 documented as of this encounter
--- OUTSIDE RECORDS SUMMARY | 2025-05-22 07:53 | XMS_ITS | Encounter Summary ---
Author Organization [facility] Address [address] [place] [address] Care Team Providers Care Gas Regulator Repairer Helper Name Role Phone Khoa Godinez MD Primary Care Provider + [phone] Jude Beach MD Unavailable +[phone] Tiffanie Smyth DPM Unavailable [phone] Khoa Godinez MD Unavailable +[phone] Khoa Godinez MD Primary Care Provider +-[phone] Larissa Leavitt RN Unavailable +[phone] Callie Mora MD Unavailable +[phone] Skinny White MD Unavailable +[phone] Shani Mohan DO Unavailable [phone] Encounter Details Date Type Department Care Team (Late st Contact Info) Description 02/08/2024 Orders Only [facility] [address] [place] [address] Calvin Wallace DO [address] [place] [address] Social History Tobacco Use Types Packs/Day Years [...] Procedure Visit [facility] [address] [place] [address] Tiffanie Smyth, DPM [address] [place] [address] 10/22/2025 2:30 PM EST Office Visit [facility] 100 [address] [facility] [address] [place] [address] Khoa Godinez MD 112 [facility] 100 [place] [address] (Fax) documented as of this encounter Procedures [...] filedocumented in this encounter Care Teams Gas Regulator Repairer Helper Relationship Specialty Start Date End Date Khoa Godinez MD (Fax) PCP - General Family Medicine 04/08/23 09/12/24 Khoa Godinez MD [address] [place] [address] PCP - ACO Reach 12/31/23 Khoa Godinez MD [address] [place] [facility] [address] [place], [place] [address] PCP - General Family Medicine 12/27/24 Jude Beach MD [address] [place] [address] Referring Physician Urology 12/09/23 Tiffanie Smyth, DPM 1900 [place], [place] [address] Referring Physician Podiatry 12/09/23 Larissa Leavitt, RN [address] [facility] 230 [place] [address] Registered Nurse Family Medicine 02/13/25 Callie Mora MD 595 [place] [address] Referring Physician General Surgery 05/07/25 Skinny White MD 2600 [place] [address] Referring Physician Ophthalmology 05/07/25 Shani Mohan DO [address] [address] Referring Physician Neurology 05/07/25 documented as of this encounter
--- OUTSIDE RECORDS SUMMARY | 2025-05-22 07:53 | XMS_ITS | Encounter Summary ---
Author Organization [facility] Address [address] [place] [address] Care Team Providers Care Clinical Lab Technologist Name Role Phone Khoa Godinez MD Primary Care Provider + [phone] Jude Beach MD Unavailable +[phone] Tiffanie Smyth DPM Unavailable [phone] Khoa Godinez MD Unavailable +- [phone] Khoa Godinez MD Primary Care Provider +[phone] Larissa Leavitt RN Unavailable +[phone] Callie Mora MD Unavailable [phone] Skinny White MD Unavailable [phone] Shani Mohan DO Unavailable [phone] Reason for Visit * Reason Onset Date Comments Med Refill 02/10/2024 Encounter Details Date Type Department Care Team (Late st Contact Info) Description 02/10/2024 Refill [facility] S [address] [place] [address] Khoa Godinez MD [address] [place] [address] (Fax) Lymphedema of both lower extremities Social [...] Visit [facility] [address] [address] Tiffanie Smyth DPM 1900 [place] [address] 10/22/2025 2:30 PM EST Office Visit [facility] [address] [place] [address] Khoa Godinez MD [address] [place] [address] (Fax) documented as of this encounter Visit Diagnoses Diagnosis Lymphedema of both lower extremities documented in this encounter Care Teams Clinical Lab Technologist Relationship Specialty Start Date End Date Khoa Godinez MD (Fax) PCP - General Family Medicine 04/08/23 09/12/24 Khoa Godinez MD [address] [place] [address] (Fax) PCP - ACO Reach 12/31/23 Khoa Godinez MD [address] [place] [address] (Fax) PCP - General Family Medicine 12/27/24 Jude Beach MD 290 [place] [address] Referring Physician Urology 12/09/23 Tiffanie Smyth DPM [address] [facility] [place] [address] Referring Physician Podiatry 12/09/23 Larissa Leavitt, RN 2500 [address] [facility] 230 [place] [address] Registered Nurse Family Medicine 02/13/25 Callie Mora MD [address] [place] [address] Referring Physician General Surgery 05/07/25 Skinny White MD 2600 [place] [address] Referring Physician Ophthalmology 05/07/25 Shani Mohan DO [address] [address] Referring Physician Neurology 05/07/25 documented as of this encounter
--- OUTSIDE RECORDS SUMMARY | 2025-05-22 07:54 | XMS_ITS | Encounter Summary ---
Author Organization [facility] Address [address] [place] [address] Care Team Providers Care Roller Shop Utility Worker Name Role Phone Khoa Godinez MD Primary Care Provider + [phone] Jude Beach MD Unavailable +[phone] Tiffanie Symth DPM Unavailable +[phone] Khoa Godinez MD Unavailable +[phone] Khoa Godinez MD Primary Care Provider +[phone] Larissa Leavitt RN Unavailable +[phone] Callie Mora MD Unavailable +[phone] Skinny White MD Unavailable +[phone] Shani Mohan DO Unavailable [phone] Encounter Details Date Type Department Care Team (Late st Contact Info) Description 06/02/2023 Abstract [facility] [address] [place] [address] Tiffanie Smyth, DPM [address] [place], [place] [address] Social History Tobacco Use Types Packs/Day Years [...] Procedure Visit [facility] [address] [place] [address] Tiffanie Smyth DPM [address] [place] [address] 10/22/2025 2:30 PM EST Office Visit [facility] [address] [place] [address] Khoa Godinez MD [address] [place] [address] documented as of this encounter Visit Diagnoses Not on filedocumented in this encounter Care Teams Roller Shop Utility Worker Relationship Specialty Start Date End Date Khoa Godinez MD PCP - General Family Medicine 04/08/23 09/12/24 Khoa Godinez MD [address] [facility] 100 [place] [address] PCP - ACO Reach 12/31/23 Khoa Godinez MD [address] [facility] 100 [place] [address] (Fax) PCP - General Family Medicine 12/27/24 Jude Beach MD 290 [place] [address] Referring Physician Urology 12/09/23 Tiffanie Smyth DPM [address] [place] [address] Referring Physician Podiatry 12/09/23 Larissa Leavitt, RN [address] [facility] 230 [place] [address] Registered Nurse Family Medicine 02/13/25 Callie Mora MD 595 [place] [address] Referring Physician General Surgery 05/07/25 [place] [address] [place] [address] Referring Physician Ophthalmology 05/07/25 Shani Mohan DO 703 [facility] 353 [place] [address] Referring Physician Neurology 05/07/25 documented as of this encounter
--- OUTSIDE RECORDS SUMMARY | 2025-05-22 07:54 | XMS_ITS | Encounter Summary ---
Author Organization [facility] Address [address] [place] [address] Care Team Providers Care Cnc Operator Programmer Name Role Phone Jude Beach MD Unavailable +[phone] Tiffanie Smyth DPM Unavailable +[phone] Khoa Godinez MD Unavailable +[phone] Khoa Godinez MD Primary Care Provider + [phone] Larissa Leavitt RN Unavailable +[phone] Callie Mora MD Unavailable +[phone] Skinny White MD Unavailable +[phone] Shani Mohan DO Unavailable [phone] Encounter Details Date Type Department Care Team (Late st Contact Info) Description 01/29/2025 Orders Only [facility] [address] [place] [address] Jazlyn Sridevi PA Social History Tobacco Use Types Packs/Day Years [...] Procedure Visit [facility] [address] [place] [address] Tiffanie Smyth DPM [address] [place] [address] 10/22/2025 2:30 PM EST Office Visit [facility] [address] [place] [address] Khoa Godinez MD [address] [place] [address] documented as of this encounter Visit Diagnoses Not on filedocumented in this encounter Additional Health Concerns Assessment Noted Time PHQ-9 Depression Total Score: 2 04/03/20 24 11:00 AM EDT documented as of this encounter Care Teams Cnc Operator Programmer Relationship Specialty Start Date End Date Khoa Godinez MD [address] [place] [address] PCP - ACO Reach 12/31/23 Khoa Godinez MD [address] [place] [address] PCP - General Family Medicine 12/27/24 Jude Beach MD [address] [place] [address] Referring Physician Urology 12/09/23 Tiffanie Smyth DPM [address] [place] [address] Referring Physician Podiatry 12/09/23 Larissa Leavitt, RN [address] [facility] 230 [place] [address] Registered Nurse Family Medicine 02/13/25 Callie Mora MD 595 [place] [address] Referring Physician General Surgery 05/07/25 [place] [address] [place] [address] Referring Physician Ophthalmology 05/07/25 Shani Mohan DO [address] [place] [phone] Referring Physician Neurology 05/07/25 documented as of this encounter
--- OUTSIDE RECORDS SUMMARY | 2025-05-22 07:54 | XMS_ITS | Encounter Summary ---
Author Organization [facility] Address [address] [place] [address] Care Team Providers Care Technical Analyst Name Role Phone Jude Beach MD Unavailable +[phone] Tiffanie Smyth DPM Unavailable +[phone] Khoa Godinez MD Unavailable [phone] Khoa Godinez MD Primary Care Provider +[phone] Larissa Leavitt RN Unavailable +[phone] Callie Mora MD Unavailable +[phone] Skinny White MD Unavailable +[phone] Shani Mohan DO Unavailable [phone] Reason for Visit * Reason Comments Med Refill Encounter Details Date Type Department Care Team (Late st Contact Info) Description 04/26/2025 Telephone [facility] 100 112 [facility] [address] [place] [address] Khoa Godinez MD [address] [facility] [address] [place] [address] Med Refill Social History Tobacco Use Types [...] Procedure Visit [facility] [address] [place] [address] Tiffanie Smyth, DPM 1900 [place] [address] 10/22/2025 2:30 PM EST Office Visit [facility] [address] [place] [address] Khoa Godinez MD [address] [facility] [address] [place] [address] (Fax) documented as of this encounter Visit Diagnoses Diagnosis Essential hypertension Unspecified essential hypertension documented in this encounter Additional Health Concerns Assessment Noted Time PHQ-9 Depression Total Score: 2 04/03/20 24 11:00 AM EDT documented as of this encounter Care Teams Technical Analyst Relationship Specialty Start Date End Date Khoa Godinez MD [address] [place] [address] (Fax) PCP - ACO Reach 12/31/23 Khoa Godinez MD [address] [place] [address] (Fax) PCP - General Family Medicine 12/27/24 Jude Beach MD [address] [place] [address] Referring Physician Urology 12/09/23 Tiffanie Smyth DPM 1900 [place] [address] Referring Physician Podiatry 12/09/23 Larissa Leavitt, CORDELL [address] [facility] 230 [place] [address] Registered Nurse Family Medicine 02/13/25 Callie Mora MD 595 [place] [address] Referring Physician General Surgery 05/07/25 Skinny White MD 2600 [place] [address] Referring Physician Ophthalmology 05/07/25 Shani Mohan DO [address] [phone] Referring Physician Neurology 05/07/25 documented as of this encounter
--- OUTSIDE RECORDS SUMMARY | 2025-05-22 07:54 | XMS_ITS | Encounter Summary ---
Author Organization [facility] Address [address] [place] [address] Care Team Providers Care Rehab Office Coordinator Name Role Phone Khoa Godinez MD Primary Care Provider + [phone] Jude Beach MD Unavailable +[phone] Tiffanie Smyth DPM Unavailable [phone] Khoa Godinez MD Unavailable [phone] Khoa Godinez MD Primary Care Provider +[phone] Larissa Leavitt RN Unavailable +[phone] Callie Mora MD Unavailable +[phone] Skinny White MD Unavailable [phone] Shani Mohan DO Unavailable [phone] Encounter Details Date Type Department Care Team (Late st Contact Info) Description 07/29/2023 Abstract [facility] [address] [place] [address] Shani Mohan DO Social History Tobacco Use [...] Visit [facility] [address] [place] [address] Tiffanie Smyth DPM [address] [place] [address] 10/22/2025 2:30 PM EST Office Visit [facility] [address] [place] [address] [place] [address] Khoa Godinez MD [address] [place] [address] (Fax) documented as of this encounter Visit Diagnoses Not on filedocumented in this encounter Care Teams Rehab Office Coordinator Relationship Specialty Start Date End Date Khoa Godinez MD (Fax) PCP - General Family Medicine 04/08/23 09/12/24 Koha Godinez MD [address] [place] [address] (Fax) PCP - ACO Reach 12/31/23 Khoa Godinez MD [address] [place] [address] (Fax) PCP - General Family Medicine 12/27/24 Jude Beach MD [address] [place] [address] Referring Physician Urology 12/09/23 Tiffanie Smyth DPM [address] [place] [address] Referring Physician Podiatry 12/09/23 Larissa Leavitt, RN [address] [place] [address] [place] [address] Registered Nurse Family Medicine 02/13/25 Callie Mora MD 595 [facility] [place] [address] Referring Physician General Surgery 05/07/25 Skinny White MD [address] [place] [address] Referring Physician Ophthalmology 05/07/25 Shani Mohan DO [address] [place] [address] 353 [place] [phone] Referring Physician Neurology 05/07/25 documented as of this encounter
--- OUTSIDE RECORDS SUMMARY | 2025-05-22 07:54 | XMS_ITS | Clinical Summary ---
Author Organization [facility] Address [id number] [address] [place] [address] Care Team Providers Care Machine Designer Name Role Phone Khoa Godinez MD Primary Care Provider [phone] Allergies Active Allergy Reactions Criticality Noted Date [...] mouth 3 (three) times a day. Active FA/MV,CA,IRON,NY N/LYCOPENE/LUT (MULTIVITAL ORAL) Take by mouth. Active [...] AM EDT Office Visit [facility] [address] [place] [address] Callie Mora MD [address], [address] [address] Health Maintenance Due Date Last Done Comments [...] on file Insurance [employer] Care Teams Machine Designer Relationship Specialty Start Date End Date Khoa Godinez MD PCP - General 12/09/17
--- OUTSIDE RECORDS SUMMARY | 2025-05-22 07:54 | XMS_ITS | Encounter Summary ---
Author Organization [facility] Address [address] [place] [address] Care Team Providers Care Tool Machine Shop Supervisor Name Role Phone Jude Beach MD Unavailable +[phone] Tiffanie Smyth DPM Unavailable +[phone] Khoa Godinez MD Unavailable +[phone] Khoa Godinez MD Primary Care Provider +[phone] Larissa Leavitt RN Unavailable +[phone] Callie Mora MD Unavailable +[phone] Skinny White MD Unavailable +[phone] Shani Mohan DO Unavailable [phone] Reason for Visit * Reason Comments Med Change Request Encounter Details Date Type Department Care Team (Late st Contact Info) Description 02/10/2025 Refill [facility] [address] [place] [address] Khoa Godinez MD [address] [place] [address] Type 2 diabetes mellitus with hyperglycemia, without [...] Procedure Visit [facility] [address] [place] [address] Tiffanie Smyth DPM [address] [place] [address] 10/22/2025 2:30 PM EST Office Visit [facility] [address] [place] [address] Khoa Godinez MD [address] [address] documented as of this encounter Visit Diagnoses Diagnosis Type 2 diabetes mellitus with hyperglycemia, without long-term current use of insulin (HCC) documented in this encounter Additional Health Concerns Assessment Noted Time PHQ-9 Depression Total Score: 2 04/03/20 24 11:00 AM EDT documented as of this encounter Care Teams Tool Machine Shop Supervisor Relationship Specialty Start Date End Date Khoa Godinez MD [address] [facility] 100 [place] [address] (Fax) PCP - ACO Reach 12/31/23 Khoa Godinez MD [address] [address] (Fax) PCP - General Family Medicine 12/27/24 Jude Beach MD 290 [place] [address] Referring Physician Urology 12/09/23 Tiffanie Smyth DPM [address] [place] [address] Referring Physician Podiatry 12/09/23 Larissa Leavitt, RN [address] [facility] 230 [place] [address] Registered Nurse Family Medicine 02/13/25 Callie Mora MD 595 [place] [address] Referring Physician General Surgery 05/07/25 [place] [address] [place] [address] Referring Physician Ophthalmology 05/07/25 Shani Mohan DO [address] [phone] Referring Physician Neurology 05/07/25 documented as of this encounter
--- OUTSIDE RECORDS SUMMARY | 2025-05-22 07:54 | XMS_ITS | Encounter Summary ---
Author Organization [facility] Address [address] [place] [address] Care Team Providers Care Trust Administrator Name Role Phone Jude Beach MD Unavailable +[phone] Tiffanie Smyth DPM Unavailable +[phone] Khoa Godinez MD Unavailable +[phone] Khoa Godinez MD Primary Care Provider [phone] Larissa Leavitt RN Unavailable +[phone] Callie Mora MD Unavailable [phone] Skinny White MD Unavailable +[phone] Shani Mohan DO Unavailable [phone] Reason for Visit * Reason Comments Med Refill Encounter Details Date Type Department Care Team (Late st Contact Info) Description 04/24/2025 Refill [facility] [address] [place] [address] Khoa Godinez MD 112 [place] [facility] [address] [place] [address] Mixed hyperlipidemia Social History Tobacco Use Types [...] Procedure Visit [facility] [address] [place] [address] Tiffanie Smyth, DPM 1900 [place] [address] 10/22/2025 2:30 PM EST Office Visit [facility] [address] [place] [address] Khoa Godinez MD [address] [place] [address] documented as of this encounter Visit Diagnoses Diagnosis Mixed hyperlipidemia Mixed hyperlipidemia documented in this encounter Additional Health Concerns Assessment Noted Time PHQ-9 Depression Total Score: 2 04/03/20 24 11:00 AM EDT documented as of this encounter Care Teams Trust Administrator Relationship Specialty Start Date End Date Khoa Godinez MD [address] [place] [address] (Fax) PCP - ACO Reach 12/31/23 Khoa Godinez MD [address] [place] [address] (Fax) PCP - General Family Medicine 12/27/24 Jude Beach MD 290 [place] [address] Referring Physician Urology 12/09/23 Tiffanie Smyth, DPM 1900 [place] [address] Referring Physician Podiatry 12/09/23 Larissa Leavitt, CORDELL 2500 [address] [facility] 230 [place], [place] [address] Registered Nurse Family Medicine 02/13/25 Callie Mora MD 595 [facility] [place] [address] Referring Physician General Surgery 05/07/25 Skinny White MD 2600 [place] [address] Referring Physician Ophthalmology 05/07/25 Shani Mohan DO [address] [phone] Referring Physician Neurology 05/07/25 documented as of this encounter
--- OUTSIDE RECORDS SUMMARY | 2025-05-22 07:54 | XMS_ITS | Encounter Summary ---
Author Organization [facility] Address [address] [place] [address] Care Team Providers Care Seed Service Advisor Name Role Phone Jude Beach MD Unavailable +[phone] Tiffanie Smyth DPM Unavailable +[phone] Khoa Godinez MD Unavailable +[phone] Khoa Godinez MD Primary Care Provider Larissa Leavitt RN Unavailable +[phone] Callie Mora MD Unavailable +[phone] Skinny White MD Unavailable +[phone] Shani Mohan DO Unavailable [phone] Reason for Visit * Reason Comments Med Refill Encounter Details Date Type Department Care Team (Late st Contact Info) Description 04/30/2025 Refill [facility] [address] [place] [address] Khoa Godinez MD 112 [facility] 100 [place] [address] (Fax) Type 2 diabetes mellitus with hyperglycemia [...] Procedure Visit [facility] [address] [place] [address] Tiffanie Smyth, DPM 1900 [place] [address] 10/22/2025 2:30 PM EST Office Visit [facility] [address] [place] [address] Khoa Godinez MD [address] [place] [address] (Fax) documented as of this encounter Visit Diagnoses Diagnosis Type 2 diabetes mellitus with hyperglycemia (HCC) documented in this encounter Additional Health Concerns Assessment Noted Time PHQ-9 Depression Total Score: 2 04/03/20 24 11:00 AM EDT documented as of this encounter Care Teams Seed Service Advisor Relationship Specialty Start Date End Date Khoa Godinez MD [address] [place] [address] PCP - ACO Reach 12/31/23 Khoa Godinez MD [address] [place] [address] (Fax) PCP - General Family Medicine 12/27/24 Jude Beach MD 290 [place] [address] Referring Physician Urology 12/09/23 Tiffanie Smyth DPM 1900 [place] [address] Referring Physician Podiatry 12/09/23 Larissa Leavitt, RN 2500 [address] [facility] 230 [place], [place] [address] Registered Nurse Family Medicine 02/13/25 Callie Mora MD 595 [place] [address] Referring Physician General Surgery 05/07/25 Skinny White MD 2600 [place] [address] Referring Physician Ophthalmology 05/07/25 Shani Mohan DO [address] [address] Referring Physician Neurology 05/07/25 documented as of this encounter
--- OUTSIDE RECORDS SUMMARY | 2025-05-22 07:54 | XMS_ITS | Encounter Summary ---
Author Organization [facility] Address [address] [place] [address] Care Team Providers Care Doughnut Machine Operator Name Role Phone Jude Beach MD Unavailable +[phone] Tiffanie Smyth DPM Unavailable [phone] Khoa Godinez MD Unavailable +[phone] Khoa Godinez MD Primary Care Provider + [phone] Larissa Leavitt RN Unavailable +[phone] Callie Mora MD Unavailable +[phone] Skinny White MD Unavailable [phone] Shani Mohan DO Unavailable [phone] Encounter Details Date Type Department Care Team (Late st Contact Info) Description 05/08/2025 Patient Outreach [facility] [address] [place] [address] Larissa Leavitt, RN [address] [place] [address] [place] [address] Social History Tobacco Use Types Packs/Day Years [...] scheduled him to have biopsies done at [facility] on 05/22, they gave them instructions and [...] PM EDT Procedure Visit [facility] 1900 [place] [address] Tiffanie Smyth, DPM 1900 [place] [address] 10/22/2025 2:30 PM EST Office Visit [facility] [address] [place] [place] [address] Khoa Godinez MD [address] [place] [address] documented as of this encounter Visit Diagnoses Diagnosis Type 2 diabetes mellitus with diabetic polyneuropathy, with long-term current use of insulin (HCC)- Primary Primary hypertension Unspecified essential hypertension documented in this encounter Additional Health Concerns Assessment Noted Time PHQ-9 Depression Total Score: 1 05/07/20 25 10:00 AM EDT documented as of this encounter Care Teams Doughnut Machine Operator Relationship Specialty Start Date End Date Khoa Godinez MD [address] [place] [address] PCP - ACO Reach 12/31/23 Khoa Godinez MD 112 [facility] 100 [place] [address] PCP - General Family Medicine 12/27/24 Jude Beach MD 290 [place], [place] [address] Referring Physician Urology 12/09/23 Tiffanie Smyth DPM 1900 [place], [place] [address] Referring Physician Podiatry 12/09/23 Larissa Leavitt, CORDELL [address] [facility] 230 [place] [address] Registered Nurse Family Medicine 02/13/25 Callie oMra MD 595 [place] [address] Referring Physician General Surgery 05/07/25 Skinny White MD 2600 [place] [address] Referring Physician Ophthalmology 05/07/25 Shani Mohan DO 703 [facility] 353 [place] [phone] Referring Physician Neurology 05/07/25 documented as of this encounter
--- OUTSIDE RECORDS SUMMARY | 2025-05-22 07:54 | XMS_ITS | Encounter Summary ---
Author Organization [facility] Address [address] [place] [address] Care Team Providers Care Ship Officer Name Role Phone Khoa Bowles MD Primary Care Provider + [phone] Jude Wood MD Unavailable +[phone] Tiffanie Smyth DPM Unavailable [phone] Khoa Bowles MD Unavailable [phone] Khoa Bowles MD Primary Care Provider +[phone] Larissa Leavitt RN Unavailable +[phone] Callie Mora MD Unavailable +[phone] Skinny White MD Unavailable +[phone] Shani Mohan DO Unavailable [phone] Encounter Details Date Type Department Care [...] Procedure Visit [facility] [address] [facility] [address] Tiffanie Smyth, DPM [address] [place], [place] [address] 10/22/2025 2:30 PM EST Office Visit [facility] [address] [place] [address] Khoa Bowles MD [address] [place] [address] documented as of this encounter Procedures Procedure Name Priority Date/Time Associated Diagnosis Comments XR ABDOMEN 1V 09/02/2024 6:56 AM EDT documented in this encounter Results * XR ABDOMEN 1V (09/02/2024 6:56 AM EDT) Anatomical Region Laterality Modality Other 09/02/2024 6:56 AM EDT Narrative 09/02/2024 6:59 AM EDT [address] [address] XRay Report Signed Patient: MANUEL BALDERAS MR#: [id number] : 1950 Acct:[id number] Age/Sex: 74 / M ADM Date: 08/31/24 Loc: LAB Attending Dr: Jude Wood M.D. Ordering Physician: Jude Wood M.D. Date of Service: 08/31/24 Procedure(s): XR abdomen 1V Accession Number(s): [id number] cc: KHOA BOWLES ; Jude Wood M.D. [address] [address] Patient Name: MANUEL BALDERAS MRN: [id number] date: 1950 Sex: M Assigned Patient Location: LAB Current Patient Location: Accession/Order Number: [id number] Exam Date: 08/31/2024 15:00 Report Date: 09/02/2024 [...] Solomon M.D. Signed By: 09/02/2459 DD/ TD/TT: Electronic Publisher: Procedure Note Radiology, Radiologist, MD - 09/02/2024 [place] [address] XRay Report Signed Patient: MANUEL BALDERAS JMR#: [id number] : 1950Acct:[id number] Age/Sex: 74 / MADM Date: 08/31/24 Loc: LAB Attending Dr: Jude Wood M.D. Ordering Physician: Jude Wood M.D. Date of Service: 08/31/24 Procedure(s): XR abdomen 1V Accession Number(s): [id number] cc: KHOA BOWLES ; Jude Wood M.D. The [place] [id number] Patient Name: MANUEL BALDERAS MRN: [id number] date: 1950 Sex: M Assigned Patient Location: LAB Current Patient Location: Accession/Order Number: [id number] Exam Date: 08/31/2024 15:00 Report Date: 09/02/2024 [...] Solomon M.D. Signed By:09/02/2459 DD/ 5 TD/TT: Electronic Publisher: us Generic External Data Provider [facility] Final Result documented in this encounter Visit Diagnoses Not on filedocumented in this encounter Additional Health Concerns Assessment Noted Time PHQ-9 Depression Total Score: 2 04/03/20 24 11:00 AM EDT documented as of this encounter Care Teams Ship Officer Relationship Specialty Start Date End Date Khoa Bowles MD PCP - General Family Medicine 04/08/23 09/12/24 Khoa Bowles MD [address] [address] PCP - ACO Reach 12/31/23 Khoa Bowles MD [address] [address] PCP - General Family Medicine 12/27/24 Jude Wood MD [address] [place] [address] Referring Physician Urology 12/09/23 Tiffanie Smyth DPM [address] [place], [place] [address] Referring Physician Podiatry 12/09/23 Larissa Leavitt, RN [address] [facility] 230 [place] [address] Registered Nurse Family Medicine 02/13/25 Callie Mora MD 595 [place] [address] Referring Physician General Surgery 05/07/25 Skinny White MD 2600 [place] [address] Referring Physician Ophthalmology 05/07/25 Shani Mohan DO 703 [facility] 353 [place] [address] Referring Physician Neurology 05/07/25 documented as of this encounter
--- OUTSIDE RECORDS SUMMARY | 2025-05-22 07:54 | XMS_ITS | Encounter Summary ---
Author Organization [facility] Address [address] [place] [address] Care Team Providers Care Thiokol Operator Name Role Phone Jude Beach MD Unavailable +[phone] Tiffanie Smyth DPM Unavailable [phone] Khoa Bowles MD Unavailable [phone] Khoa Bowles MD Primary Care Provider + [phone] Larissa Leavitt RN Unavailable [phone] Callie Mora MD Unavailable [phone] Skinny White MD Unavailable +[phone] Shani Mohan DO Unavailable [phone] Encounter Details Date Type Department Care [...] EDT Procedure Visit [facility] [address] [place] [address] Tiffanie Smyth DPM [address] [place], [place] [address] 10/22/2025 2:30 PM EST Office Visit [facility] [address] [facility] [address] [place] [address] Khoa Bowles MD 112 [facility] [address] [place] [address] documented as of this encounter Procedures Procedure Name Priority Date/Time Associated Diagnosis Comments CT ANKLE LT WO CON 11/18/2024 9: 05 AM EST documented in this encounter Results * CT ANKLE LT WO CON (11/18/2024 9:05 AM EST) Anatomical Region Laterality Modality Other 11/18/2024 9:05 AM EST Narrative 11/18/2024 9:08 AM EST [place] [id number] CT Scan Report Signed Patient: MANUEL BALDERAS MR#: [id number] : 1950 Acct:[id number] Age/Sex: 74 / M ADM Date: 11/17/24 Loc: CT Attending Dr: Non-Staff Physician Minerva Ordering Physician: Prince Greer M.D. Date of Service: 11/17/24 Procedure(s): CT ankle LT wo con Accession Number(s): [id number] cc: KHOA BOWLES [address] [address] Patient Name: MANUEL BALDERAS MRN: [id number] date: 1950 Sex: M Assigned Patient Location: CT Current Patient Location: CT Accession/Order Number: [id number] Exam Date: 11/17/2024 09:52 Report Date: 11/18/2024 [...] M.D. Signed By: 11/18/24907 DD/ 4 TD/TT: Press Tender Smoke Signal: Procedure Note Radiology, Radiologist, - 11/18/2024 [place] [address] CT Scan Report Signed Patient: MANUEL BALDERAS JMR#: [id number] : 1950Acct:[id number] Age/Sex: 74 / MADM Date: 11/17/24 Loc: CT Attending Dr: Non-Staff Physician Minerva Ordering Physician: Prince Greer M.D. Date of Service: 11/17/24 Procedure(s): CT ankle LT wo con Accession Number(s): [id number] cc: KHOA BOWLES [place] [address] Patient Name: MANUEL BALDERAS MRN: [id number] date: 1950 Sex: M Assigned Patient Location: CT Current Patient Location: CT Accession/Order Number: [id number] Exam Date: 11/17/2024 09:52 Report Date: 11/18/2024 [...] bony fusion across the posterior subtalar joint bthpjuesr08% to 75% of the elbow joint. Minor [...] Landers M.D. Signed By:11/18/24907 DD/ 4 TD/TT: Press Tender Smoke Signal: us Generic External Data Provider [facility] Final Result documented in this encounter Visit Diagnoses Not on filedocumented in this encounter Additional Health Concerns Assessment Noted Time PHQ-9 Depression Total Score: 2 04/03/20 24 11:00 AM EDT documented as of this encounter Care Teams Thiokol Operator Relationship Specialty Start Date End Date Khoa Bowles MD [address] [address] (Fax) PCP - ACO Reach 12/31/23 Khoa Bowles MD [address] [address] (Fax) PCP - General Family Medicine 12/27/24 Jude Beach MD [address] [place] [address] Referring Physician Urology 12/09/23 Tiffanie Smyth DPM [address] [place] [address] Referring Physician Podiatry 12/09/23 Larissa Leavitt, RN [address] [place] [address] Registered Nurse Family Medicine 02/13/25 Callei Mora MD [address] [place] [address] Referring Physician General Surgery 05/07/25 Skinny White MD [address] [place] [address] Referring Physician Ophthalmology 05/07/25 Shani Mohan DO [address] [place] [address] [address] [place] [address] Referring Physician Neurology 05/07/25 documented as of this encounter
--- OUTSIDE RECORDS SUMMARY | 2025-05-22 07:54 | XMS_ITS | Clinical Summary ---
Author Organization [facility] Address [address] [place] [address] Care Team Providers Care Etl Architect Name Role Phone Jude Beach MD Unavailable +[phone] Tiffanie Smyth DPM Unavailable [phone] Khoa Godinez MD Unavailable [phone] Khoa Godinez MD Primary Care Provider [phone] Larissa Leavitt RN Unavailable [phone] Callie Mora MD Unavailable [phone] Skinny White MD Unavailable [phone] Shani Mohan DO Unavailable [phone] Allergies Active Allergy Reactions Criticality Noted Date Comments Meperidine 02/01/2014 Other Reaction(s): Other: See Comments moise Meperidine Hcl 12/02/2021 Other Reaction(s): moise Abdi Pioglitazone Swelling 04/13/2023 Medications aspirin 81 MG EC tablet Take 81 mg by mouth in the morning. Active biotin 77545 MCG tablet Take 1 tablet by mouth [...] hyperglycemia, without long-term current use of insulin ([facility]) INJECT BID, SLIDING BLOOD GLUCOSE SCALE WITH [...] microalbuminuria, with long-term current use of insulin ([facility]) Take 1 tablet (1,000 mg) by mouth [...] [address] [place] [address] Khoa Godinez MD 05/08/2025 Patient Outreach [facility] [address] [facility] [place] [address] Larissa Leavitt RN 05/07/2025 11:00 AM EDT Office Visit [facility] [address] [place] [address] Khoa Godinez MD Encounter for Medicare annual [...] flowsheet [facility] [address] [place] [address] Khoa Godinez MD 05/07/2025 Travel 04/30/2025 Refill [facility] [address] [place] [address] Khoa Godinez MD Type 2 diabetes mellitus with hyperglycemia (HCC) 04/26/2025 3:00 PM EDT Office Visit [facility] 100 [address] [place] [address] Khoa Godinez MD Primary hypertension ; Mixed hyperlipidemia ; Hyperuricemia; Microalbuminuria; Type 2 diabetes mellitus with diabetic microalbuminuria, with long-term current use of insulin (HCC); Type 2 diabetes mellitus with diabetic polyneuropathy, with long-term current use of insulin (HCC); Diabetic neuropathic arthropathy (HCC); Lymphedema of both lower extremities; Chronic cellulitis; Polypharmacy; Morbid obesity due to excess calories ([facility]) 04/26/2025 Travel 04/26/2025 Telephone [facility] [address] [facility] [address] [place] [address] Khoa Godinez MD Med Refill 04/24/2025 Clinisync Result Encounter [facility] External Department Unsolicited Khoa Godinez MD 04/24/2025 Patient Outreach [facility] [address] [place] [address] Larissa Leavitt RN 04/24/2025 Refill [facility] [address] [facility] [address] [place] [address] Khoa Godinez MD Mixed hyperlipidemia 04/19/2025 Telephone [facility] [address] [facility] [address] [place] [address] JazlynSridevi CA Lab Orders 04/17/2025 Patient Outreach [facility] [address] [place] [address] Larissa Leavitt RN 04/05/2025 1:00 PM EDT Procedure Visit [facility] [address] [place] [address] Tiffanie Smyth DPM Type II or unspecified type diabetes mellitus with neurological manifestations, not 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) ([facility]) (Primary Dx); Onychomycosis; Acquired keratoderma; Callus 04/05/2025 Refill [facility] [address] [facility] [address] [place] [address] Khoa Godinez MD Type 2 diabetes mellitus with hyperglycemia, without long-term current use of insulin ([facility]) 04/05/2025 Bamboo flowsheet [facility] [address] [place] [address] Tiffanie Smyth DPM 04/05/2025 Travel 04/04/2025 Travel 04/03/2025 Travel 03/16/2025 Patient Outreach [facility] [address] [place] [address] Larissa Leavitt RN 03/15/2025 Clinisync Result Encounter [facility] External Department Unsolicited Provider, Generic External Data 02/27/2025 Patient Outreach [facility] [address] [place] [address] Larissa Leavitt RN 02/20/2025 8:00 AM EDT Office Visit [facility] [address] [facility] [address] [place] [address] Khoa Godinez MD Fall from standing, subsequent encounter; Skin tear of upper extremity; Bleeding; Encounter for examination following treatment at hospital 02/20/2025 Lionelboo flowsheet [facility] [address] [facility] [address] [place] [address] Khoa Godinez MD 02/20/2025 Travel from Last 3 Months Immunizations Immunization Administration [...] PM EDT Procedure Visit [facility] [address] [place] [address] Tiffanie Smyth, DPM [address] [place] [address] 10/22/2025 2:30 PM EST Office Visit [facility] [address] [place] [address] Khoa Godinez MD [address] [place] [address] Health Maintenance Due Date Last Done Comments CT Colonography 1950 FIT-DNA 1950 FIT 1950 FOBT 1950 Sigmoidoscopy 1950 Influenza Vaccine (#1) 2025 4, 10/14/2023, 09/03/2022, Additional history exists Diabetes: Hemoglobin [...] GLYCOHEMOGLOBIN A1C 6.9(H) 4.5 - 6.2 % TBH Comment: ADA RECOMMENDED LIMIT 4.0 - 6.0 ADA THERAPEUTIC TARGET < 7.0 ACTION SUGGESTED > 7.0 ESTIMATED AVERAGE GLUCOSE 151 mg/dL TBH 04/24/2025 11:0 1 AM EDT 04/24/2025 11:02 AM EDT Narrative [facility] - 04/24/2025 11:18 AM EDT Khoa Godinez MD [facility] Final Result Performing Organization Address [facility] Co de Phone Number [facility] TB * (ABNORMAL) TB MICROALB CREAT RATIO RANDOM (04/24/2025 10:46 AM EDT) MICROALBUMIN URINE RANDOM 3.0 <=30.0 mg/dL TBH CREATININE URINE RANDOM 52.26 20.00 - 300.00 mg/dL TB MICROALBUM CREATININE RATIO UR 57.4(H) 0.0 - 29.9 mg/g TB Comment: NO MICROALBUMINURIA 0-29 MG/G CLINICAL MICROALBUMINURIA 30-300 MG/G MACROALBUMINURIA >300 MG/G 04/24/2025 10:4 6 AM EDT 04/24/2025 11:02 AM EDT Narrative [facility] - 04/24/2025 11:18 AM EDT Khoa Godinez MD CLINISYCHANDU Final Result Performing Organization Address [facility] Co de Phone Number [facility] TB * (ABNORMAL) MHPT PSA, DIAGNOSTIC (03/15/2025 9:59 AM EDT) PROSTATE SPECIFIC ANTIGEN DX 5.80(H) <=4.00 ng/mL TB 03/15/2025 9:59 AM EDT 03/15/2025 10:00 AM EDT Narrative [facility] - 03/15/2025 11:47 AM EDT Generic External Data Provider [facility] F inal Result Performing Organization Address [facility] Co de Phone Number [facility] TB * Diabetic Retinopathy Screening - OU - Both Eyes (02/25/2024 9:23 AM EDT) Anatomical Region Laterality Modality Head Other Rasheed Truong MD OPHTH PHOTOGRAPHY Final Result * Hemoglobin A1c (10/19/2023 4:15 PM EST) Blood Venous blood specimen / Unknown Khoa Godinez MD LAB BLOOD ORDERABLES Final R esult Performing Organization Address City/[facility]/ZIP Co de Phone Number QUEST * MICROALBUMIN, URINE QUANT (11/18/2021 12:00 PM EST) GENERIC LEGACY COMPONENT INTERNAL 1-1,500 [facility] GENERIC LEGACY COMPONENT INTERNAL 1,500 [facility] 11/18/2021 12:0 0 PM EST Khoa Godinez MD [facility] Final Result Performing Organization Address [facility] Co de Phone Number W [facility] * Colonoscopy (06/17/2016 12:00 PM EDT) Anatomical Region Laterality Modality Endoscopy 06/17/2016 12:0 0 PM EDT Narrative 04/29/2017 12:00 PM EDT PERFORMED AT [facility] LOCATION:[id number] Abnormal Procedure Note CONVERSION, GENERIC - 03/18/2023 PERFORMED AT [facility] LOCATION:[id number] Abnormal Khoa Godinez MD ENDOSCOPY PROCEDURE ORDERABL ES Final Result from Last 3 Months or Most Recently Relevant to Health Maintenance Insurance MEDICARE AET Advance Directives Documents on File Type Date Recorded Patient Door Serviceman Expl anation Power of Dross Skimmer 03/29/2024 1:37 PM 07-10 POA Advance Directives and Living Will 03/29/2024 1:37 PM 2013-07-10 Living Wi ll Care Teams Etl Architect Relationship Specialty Start Date End Date Khoa Godinez MD [address] [place], [place] [address] PCP - ACO Reach 12/31/23 Khoa Godinez MD [address] [place] [address] PCP - General Family Medicine 12/27/24 Jude Beach MD [address] [place] [address] Referring Physician Urology 12/09/23 Tiffanie Smyth DPM [address] [facility] [place] [address] Referring Physician Podiatry 12/09/23 Larissa Leavitt, CORDELL [address] [place], [place] [address] Registered Nurse Family Medicine 02/13/25 Callie Mora MD [address] [place] [address] Referring Physician General Surgery 05/07/25 Skinny White MD [address] [place] [address] Referring Physician Ophthalmology 05/07/25 Shani Mohan DO [address] [address] Referring Physician Neurology 05/07/25
--- OUTSIDE RECORDS SUMMARY | 2025-05-22 07:54 | XMS_ITS | Encounter Summary ---
Author Organization [facility] Address [address] [place] [address] Care Team Providers Care Pediatric Acute Care Unit Nurse Name Role Phone Khoa Godinez MD Primary Care Provider [phone] Jude Beach MD Unavailable [phone] Tiffanie Smyth DPM Unavailable [phone] Khoa Godinez MD Unavailable +[phone] Khoa Godinez MD Primary Care Provider [phone] Larissa Leavitt RN Unavailable [phone] Callie Mora MD Unavailable [phone] Skinny White MD Unavailable [phone] Shani Mohan DO Unavailable [phone] Encounter Details Date Type Department Care Team (Late st Contact Info) Description 07/15/2023 Orders Only [facility] [address] [place] [address] Jude Beach MD [address] [place] [address] Social History Tobacco Use Types Packs/Day Years [...] Procedure Visit [facility] [address] [facility] [address] Tiffanie Smyth, DPM [address] [place] [address] 10/22/2025 2:30 PM EST Office Visit [facility] [address] [place] [address] Khoa Godinez MD [address] [place] [address] (Fax) documented as of this encounter Procedures [...] on filedocumented in this encounter Care Teams Pediatric Acute Care Unit Nurse Relationship Specialty Start Date End Date Khoa Godinez MD (Fax) PCP - General Family Medicine 04/08/23 09/12/24 Khoa Godinez MD [address] [place] [address] (Fax) PCP - ACO Reach 12/31/23 Khoa Godinez MD [address] [place] [address] (Fax) PCP - General Family Medicine 12/27/24 Jude Beach MD 290 [place] [address] Referring Physician Urology 12/09/23 Tiffanie Smyth DPM 1900 [place] [address] Referring Physician Podiatry 12/09/23 Larissa Leavitt, CORDELL [address] [facility] [address] [place] [address] Registered Nurse Family Medicine 02/13/25 Callie Mora MD [address] [facility] [place] [address] Referring Physician General Surgery 05/07/25 Skinny White MD [address] [place] [address] Referring Physician Ophthalmology 05/07/25 Shani Mohan DO [address] [id number] Referring Physician Neurology 05/07/25 documented as of this encounter
--- OUTSIDE RECORDS SUMMARY | 2025-05-22 07:54 | XMS_ITS | Encounter Summary ---
Author Organization [facility] Address [address] [place] [address] Care Team Providers Care Antique Furniture Restorer Name Role Phone Jude Beach MD Unavailable [phone] Tiffanie Smyth DPM Unavailable [phone] hKoa Godinez MD Unavailable [phone] Khoa Godinez MD Primary Care Provider [phone] Larissa Leavitt RN Unavailable [phone] Callie Mora MD Unavailable [phone] Skinny White MD Unavailable [phone] Shani Mohan DO Unavailable [phone] Encounter Details Date Type Department Care Team (Late st Contact Info) Description 05/08/2025 Orders Only [facility] [address] [place] [address] Khoa Godinez MD [address] [place] [address] Social History Tobacco Use Types Packs/Day Years [...] Procedure Visit [facility] [address] [place] [address] Tiffanie Smyth DPM [address] [place] [address] 10/22/2025 2:30 PM EST Office Visit [facility] [address] [place] [address] Khoa Godinez MD [address] [place] [address] (Fax) documented as of this encounter Visit Diagnoses Not on filedocumented in this encounter Additional Health Concerns Assessment Noted Time PHQ-9 Depression Total Score: 1 05/07/20 25 10:00 AM EDT documented as of this encounter Care Teams Antique Furniture Restorer Relationship Specialty Start Date End Date Khoa Godinez MD [address] [place] [address] (Fax) PCP - ACO Reach 12/31/23 Khoa Godinez MD [address] [place] [address] (Fax) PCP - General Family Medicine 12/27/24 Jude Beach MD [address] [place] [address] Referring Physician Urology 12/09/23 Tiffanie Smyth, FAUSTINO [address] [place] [address] Referring Physician Podiatry 12/09/23 Larissa Leavitt, RN [address] [place] [address] Registered Nurse Family Medicine 02/13/25 Callie Mora MD [address] [facility] [place] [address] Referring Physician General Surgery 05/07/25 Skinny White MD [address] [place] [address] Referring Physician Ophthalmology 05/07/25 Shani Mohan DO [address] [place] [address] [address] [place] [address] Referring Physician Neurology 05/07/25 documented as of this encounter
--- OUTSIDE RECORDS SUMMARY | 2025-05-22 07:54 | XMS_ITS | Encounter Summary ---
Author Organization [facility] Address [address] [place] [address] Care Team Providers Care Tar Worker Name Role Phone Khoa Bowles MD Primary Care Provider + [phone] Jude Wood MD Unavailable [phone] Tiffanie Smyth DPM Unavailable [phone] Khoa Bowles MD Unavailable [phone] Khoa Bowles MD Primary Care Provider [phone] Larissa Leavitt RN Unavailable [phone] Callie Mora MD Unavailable [phone] Skinny White MD Unavailable [phone] Shani Mohan DO Unavailable [phone] Encounter Details Date Type Department Care [...] EDT Procedure Visit [facility] [address] [facility] [address] Tiffanie Smyth, DPM [address] [place], [place] [address] 10/22/2025 2:30 PM EST Office Visit [facility] [address] [place] [address] Khoa Bowles MD [address] [place] [facility] [address] [place] [address] documented as of this encounter Procedures Procedure Name Priority Date/Time Associated Diagnosis Comments XR ABDOMEN 1V 07/15/2023 11:48 AM EDT documented in this encounter Results * XR ABDOMEN 1V (07/15/2023 11:48 AM EDT) Anatomical Region Laterality Modality Other 07/15/2023 11:4 8 AM EDT Narrative 07/15/2023 11:48 AM EDT [address] [address] XRay Report Signed Patient: MANUEL BALDERAS MR#: [id number] : 1950 Acct:[id number] Age/Sex: 73 / M ADM Date: 07/15/23 Loc: RAD Attending Dr: Jude Wood M.D. Ordering Physician: Jude Wood M.D. Date of Service: 07/15/23 Procedure(s): XR abdomen 1V Accession Number(s): [id number] cc: KHOA BOWLES ; Jude Wood M.D. The [address] [address] Patient Name: MANUEL BALDERAS MRN: [id number] date: 1950 Sex: M Assigned Patient Location: RAD Current Patient Location: RAD Accession/Order Number: [id number] Exam Date: 07/15/2023 10:10 Report Date: 07/15/2023 [...] Signed By: 07/15/23 1150 DD/ 1148 TD/TT: Health Communications Specialist: Procedure Note Radiology, Radiologist, MD - 07/23/2023 [place] [address] XRay Report Signed Patient: MANUEL BALDERAS R#: [id number] : 1950Acct:[id number] Age/Sex: 73 / MADM Date: 07/15/23 Loc: RAD Attending Dr: Jude Wood M.D. Ordering Physician: Jude Wood M.D. Date of Service: 07/15/23 Procedure(s): XR abdomen 1V Accession Number(s): [id number] cc: KHOA BOWLES ; Jude Wood M.D. The [place] [address] Patient Name: MANUEL BALDERAS MRN: [id number] date: 1950 Sex: M Assigned Patient Location: RAD Current Patient Location: RAD Accession/Order Number: [id number] Exam Date: 07/15/2023 10:10 Report Date: 07/15/2023 [...] M.D. Signed By:07/15/23 1150 DD/ 1148 TD/TT: Health Communications Specialist: Generic External Data Provider [facility] Final Result documented in this encounter Visit Diagnoses Not on filedocumented in this encounter Care Teams Tar Worker Relationship Specialty Start Date End Date Khoa Bowles MD (Fax) PCP - General Family Medicine 04/08/23 09/12/24 Khoa Bowles MD [address] [address] PCP - ACO Reach 12/31/23 Khoa Bowles MD [address] [address] (Fax) PCP - General Family Medicine 12/27/24 Jude Wood MD [address] [place] [address] Referring Physician Urology 12/09/23 Tiffanie Smyth DPM [address] [place], [place] [address] Referring Physician Podiatry 12/09/23 Larissa Leavitt, RN [address] [place] [address] Registered Nurse Family Medicine 02/13/25 Callie Mora MD 595 [place] [address] Referring Physician General Surgery 05/07/25 [place] [address] [place] [address] Referring Physician Ophthalmology 05/07/25 Shani Mohan DO [address] [place] [phone] Referring Physician Neurology 05/07/25 documented as of this encounter
--- OUTSIDE RECORDS SUMMARY | 2025-05-22 08:00 | XMS_ITS | CCD ---
Author Organization [facility] Care Team Providers Care Transportation Technician Name Role Phone Khoa Bowles Primary Care Provider [phone] Leopoldo Frye Attending Provider [phone] Elder Qiu Attending Provider [phone] KHOA BOWLES Primary Care Physician KHOA BOWLES [...] Unavailable BEACH ., DR WALLACE Admitting Unavailable WEST, DR TALI Jeffries Consulting Unavailable BEACH ., DR WALLACE Consulting Unavailable HEMEYER ., DR QUINTEROS Primary Care Unavailable BEACH ., DR WALLACE Attending Unavailable BEACH ., DR WALLACE Admitting Unavailable MD Khoa Bowles Primary Care Provider MARIZOL Hampton Attending Provider Khoa Bowles MD Primary Care Provider Madison Beach MD Unavailable [phone] Tiffanie Enrique DPM Unavailable LEOLA, MOHAMED F Attending Unavailable HEMEYER, EDDEVEN J Referring Unavailable HEMEYER, EDWARD J Primary Care Unavailable LEOLA, MOHAMED F Attending Unavailable HEMEYER, KHOA J Referring Unavailable HEMEYER, EDDEVEN J Primary Care Unavailable HEMEYER, EDDEVEN J Referring Unavailable HEMEYER, EDDEVEN J Primary Care Unavailable LEOLA, MOHAMED F Attending Unavailable HEMEYER, EDWARD J Referring Unavailable HEMEYER, EDWARD J Primary Care Unavailable LEOLA, MOHAMED F Attending Unavailable LEOLA, MOHAMED F Referring Unavailable HEMEYER, EDDEVEN Yanes Primary Care Unavailable LEOLA, MOHAMED F Attending Unavailable LEOLA, MOHAMED F Referring Unavailable HEMEYER, EDDEVEN J Primary Care Unavailable Khoa Bowles MD Unavailable [phone] Khoa Bowles MD Primary Care Provider Khoa Bowles MD Unavailable [phone] Khoa Bowles MD Unavailable Khoa Bowles MD Primary Care Provider [phone] Larissa Leavitt RN Unavailable Larissa Leavitt RN Unavailable Callie Mora MD Unavailable Skinny White MD Unavailable Shani Mohan DO Unavailable TIFFANIE ENRIQUE Attending Unavailable HEMEYER, KHOA Yanes Attending Unavailable TIFFANIE ENRIQUE Attending Unavailable TIFFANIE ENRIQUE Attending Unavailable KHOA BOWLES Attending Unavailable KHOA BOWLES Attending Unavailable YUMIKO GUZMÁN Attending Unavailable YAQUELIN HAMPTON Attending Unavailable TIFFANIE ENRIQUE Attending Unavailable KHOA BOWLES Attending Unavailable Khoa Bowles Primary Care Unavailable Madison Beach Attending Unavailable Madison Beach Admitting Unavailable BEACH, Madison R Attending Unavailable BEACH, Madison R Attending Unavailable BEACH, Madison R Attending Unavailable BEACH, Madison R Attending Unavailable BEACH, Madison R Attending Unavailable BEACH, Madison R Attending Unavailable Allergies Allergy Classification Reported Allergen(s) Allergy Type Date of Onset Reaction(s) Facility Opioid Agonists (1 source) Meperidine Drug Allergy 1 [facility] (8 sources) Meperidine / Promethazine; Translations: [meperidine-prome thazine] Drug Allergy Unknown (qualifier value) [facility] (20 sources) Meperidine; Translations: [meperidine] Drug Allergy 4 Tremor (finding) [facility] (2 sources) Meperidine Drug Allergy 3 [facility] (2 sources) pioglitazone Drug Allergy 3 [facility] Rep[facility] (20 sources) Meperidine Drug Allergy 2 [facility] (20 sources) pioglitazone Drug Allergy 3 Swelling [facility] (1 source) Meperidine Drug Allergy 1 [facility] Repository (1 source) Doxycycline; Translations: [doxycycline] Drug Allergy [facility] Repository Medications Current Medications Medication Drug Class(es) [...] Refills(s) 0 Start Date: 09/18/19 Status: Ordered Repeat number: 1 Start: 11-23-2018 take 1 tablet by noemi th once daily in the morning Aspirin (Aspirin Low Dose) 81 mg Tablet,Delayed Release (Dr/Ec) Active 81 MG PO Every morning November 23, 2018 9:16am Biotin (20 sources) Start: 09-04-2024 biotin 10,000 mcg, Refills(s) 0 Start Date: 09/04/24 Status: Ordered Repeat number: 1 Start: 09-04-2024 biotin 10,000 mcg, Refills(s) 0 Start Date: 09/04/24 Status: Ordered Start: 11-09-2018 take 91200 ug by noemi th twice daily Biotin Active 22672 MCG PO Twice daily November 09, 2018 3:30pm take 1 tablet by noemi th in the morning biotin 20304 MCG tablet Take 1 tablet by mouth in the morning and 1 tablet before bedtime. Active Blood Glucose Monitoring Suppl (Blood Glucose Monitoring 333) device (12 sources) Blood Glucose Monitoring Suppl (Blood Glucose [...] by mouth Daily 90 tablet 1 10/31/2024 Active Start: 11-04-2023 End: 02-02-2024 take 1 tablet by mouth in the morning dapagliflozin (Farxiga) 10 MG Indications: Diabetic nephropathy associated with type 2 diabetes mellitus (HCC) (CMS/HCC) Take 1 tablet (10 mg) by mouth in the morning. 90 tablet 0 11/04/2023 02/02/2024 Active doxycycline monohydrate 100 mg oral capsule (20 sources) Tetracycline-class Drug Start: 11-04-2023 End: 04-28-2026 take 1 capsule by mouth once daily doxycycline (Monodox) 100 MG capsule Indications: Chronic cellulitis Take 1 capsule (100 mg) by mouth Daily 90 capsule 3 05/03/2025 04/28/2026 Active Start: 09-18-2019 take 1 mg by mouth twice daily doxycycline hyclate 100 mg Cap mg cap(s), Oral, BID, Refills(s) 0 Start Date: 09/18/19 Status: Ordered Repeat number: 1 Start: 11-09-2018 take 100 mg by mouth once daily in the morning Doxycycline Hyclate Active 100 MG PO Every morning November 09, 2018 3:30pm DULoxetine 30 mg delayed release oral capsule (13 sources) Serotonin and Norepinephrine Reuptake Inhibitor Start: 03-09-2025 take 1 capsule by mouth in the morning DULoxetine (Cymbalta) [address] capsule Take 30 mg by mouth in the morning and 30 mg before bedtime. 03/09/2025 Active Start: 01-12-2025 take 1 capsule by mo [facility] in the morning DULoxetine (Cymbalta) [address] capsule Take 20 mg by mouth in the morning and 20 mg before bedtime. 01/12/2025 Active fenofibrate 160 mg oral tablet (20 sources) Peroxisome Proliferator Receptor alpha Agonist Start: 05-03-2025 End: 10-30-2025 take 1 tablet by mouth once daily fenofibrate (Triglide) 160 MG tablet Indications: Mixed hyperlipidemia Take 1 tablet (160 mg) by mouth Daily 90 tablet 1 05/03/2025 10/30/2025 Active Start: 05-02-2024 End: 04-29-2025 take 1 tablet by mouth once daily fenofibrate (Triglide) 160 MG tablet Indications: Mixed hyperlipidemia Take 1 tablet (160 mg) by mouth Daily 90 tablet 1 10/31/2024 04/26/2025 Discontinued (Reorder) Start: 11-04-2023 End: 02-02-2024 take 1 tablet [...] oral tablet (20 sources) Thiazide Diuretic Start: 01-11-2023 End: 10-30-2025 take 1 tablet by mouth in the evening hydroCHLOROthiazide (HYDRODiuril) 25 MG tablet Indications: Primary hypertension Take 1 tablet (25 mg) by mouth in the evening 90 tablet 1 05/03/2025 10/30/2025 Active Start: 11-09-2018 End: 01-07-2023 take 1 tablet by mouth once daily hydrochlorothiazide 25 mg Tab 25 mg = 1 tab(s), Oral, Daily, X 90 day(s), # 90 tab(s), Refills(s) 0, Pharmacy: [facility]/pharmacy #[id number], 185, cm, 12/22/21 12:11:00 EST, Height/Length Dosing, 136.7, kg, 12/22/21 12:11:00 EST, Weight Dosing Start Date: 10/09/22 Stop Date: 01/07/23 Status: Ordered hydroCHLOROthiazide 12.5 mg / losartan potassium 100 mg oral tablet (20 sources) Thiazide Diuretic, Angiotensin 2 Receptor Dean Start: 05-03-2025 End: 10-30-2025 take 1 tablet by mouth once daily losartan-hydroCHLOROthiazide (Hyzaar) 100-12.5 MG tablet Indications: Primary hypertension Take 1 tablet by mouth Daily 90 tablet 1 05/03/2025 10/30/2025 Active Start: 09-04-2024 hydrochlorothi azide-losartan 12.5 mg-100 mg oral tablet 1 tab(s), Refill(s) 0 Start Date: 09/04/24 Status: Ordered Repeat number: 1 Start: 05-02-2024 End: 04-29-2025 take 1 tablet by mouth once daily losartan-hydroCHLOROthiazide (Hyzaar) 100-12.5 MG tablet Indications: Essential hypertension Take 1 tablet by mouth Daily 90 tablet 1 10/31/2024 04/26/2025 Discontinued (Reorder) Start: 11-04-2023 End: 02-02-2024 take 1 tablet [...] hyperglycemia, without long-term current use of insulin ([facility]) INJECT BID, SLIDING BLOOD GLUCOSE SCALE WITH THE COVERAGE: 300, 20 UNITS 15 each 3 02/05/2025 Active Start: 09-04-2024 Basaglar KwikP en 100 units/mL subcutaneous solution See Instructions, Refills(s) 0 Start Date: 09/04/24 Status: Ordered Repeat number: 1 Start: 06-14-2024 End: 11-16-2024 insulin glargine (Basaglar K jesúskPen) 100 UNIT/ML pen Indications: Type 2 diabetes [...] Refill(s) 0 Start Date: 09/04/24 Status: Ordered Repeat number: 1 Start: 09-04-2024 lutein 20 mg, Refill(s) 0 Start Date: 09/04/24 Status: Ordered Start: 11-09-2018 take 20 mg by mouth once daily Lutein Active 20 MG PO Daily November 09, 2018 3:30pm Lutein 20 MG tab let 1 (one) time each day at the same time. Active metFORMIN hydrochloride 1000 mg oral tablet (20 sources) Biguanide Start: 05-03-2025 End: 10-30-2025 take 1 tablet by mouth in the morning metFORMIN (Glucophage) 1000 MG tablet Indications: Type 2 diabetes mellitus with diabetic microalbuminuria, with long-term current use of insulin (HCC) Take 1 tablet (1,000 mg) by mouth in the morning and 1 tablet (1,000 mg) in the evening. Take with meals. 180 tablet 1 05/03/2025 10/30/2025 Active Start: 05-02-2024 End: 04-29-2025 take 1 tablet by mouth at mealtime metFORMIN (Glucophage) 1000 MG tablet Indications: Type 2 diabetes mellitus with hyperglycemia, without long-term current use of insulin ([facility]) TAKE 1 TABLET (1,000 MG) BY MOUTH IN THE MORNING AND IN THE EVENING WITH MEALS 180 tablet 1 04/09/2025 04/26/2025 Discontinued (Reorder) Start: 11-04-2023 End: 02-02-2024 take 1 tablet [...] oral tablet (20 sources) beta-Adrenergic Dean Start: 05-03-2025 End: 10-30-2025 take 1 tablet by mouth in the morning metoprolol tartrate (Lopressor) 50 MG tablet Indications: Primary hypertension Take 1 tablet (50 mg) by mouth in the morning and 1 tablet (50 mg) before bedtime. 180 tablet 1 05/03/2025 10/30/2025 Active Start: 11-09-2018 End: 04-29-2025 take 1 tablet by mouth in the morning metoprolol tartrate (Lopressor) 50 MG tablet Indications: Essential hypertension Take 1 tablet (50 mg) by mouth in the morning and 1 tablet (50 mg) before bedtime. 180 tablet 1 10/31/2024 04/26/2025 Discontinued (Reorder) 24 hr mirabegron 50 mg extended release oral tablet (1 source) beta3-Adrenergic Agonist Start: 09-04-2024 End: 08-30-2025 take 1 tablet by mouth once daily mirabegron 50 mg oral tablet, extended release 50 mg = 1 tab(s), Oral, Daily, X 30 day(s), # 30 tab(s), Refills(s) 11, Pharmacy: [facility]/pharmacy #[id number], 185, cm, 09/04/24 13:31:00 EST, Height/Length [...] BID, # 180 tab(s), Refills(s) 11, Pharmacy: [facility]/pharmacy #[id number], 185, cm, 09/04/24 13:31:00 EST, Height/Length Dosing, 128, kg, 09/04/24 13:31:00 EST, Weight Dosing Start Date: 11/15/24 Status: Ordered Quantity: 180.0 Unit: tab(s) Repeat number: 12 Start: 11-11-2023 take 3 tablets by mo uth twice daily sodium bicarbonate 650 mg Tab 1,950 mg = 3 tab(s), Oral, BID, # 180 tab(s), Refills(s) 11, Pharmacy: [facility]/pharmacy #[id number], 185, cm, 07/21/23 13:37:00 EDT, Height/Length Dosing, 138.2, kg, 07/21/23 13:37:00 EDT, Weight Dosing Start Date: 11/11/23 Status: Ordered Start: 11-08-2022 take 3 tablets by mo ut twice daily sodium bicarbonate 650 mg Tab 1,950 mg = 3 tab(s), Oral, BID, # 180 tab(s), Refills(s) 11, Pharmacy: [facility]/pharmacy #[id number], 185, cm, 12/22/21 12:11:00 EST, Height/Length Dosing, 136.7, kg, 12/22/21 12:11:00 EST, Weight Dosing Start Date: 11/08/22 Status: Ordered Start: 11-05-2021 End: 10-31-2022 take 3 tablets by mouth twice daily sodium bicarbonate 650 mg Tab 1,950 mg = 3 tab(s), Oral, BID, X 90 day(s), # 540 tab(s), Refills(s) 3, Pharmacy: [facility]/pharmacy #[id number], 185, cm, 09/15/21 11:40:00 EST, Height/Length Dosing, 137, kg, 09/15/21 11:40:00 EST, Weight Dosing Start Date: 11/05/21 Stop Date: 10/31/22 Status: Ordered Start: 11-09-2018 take 1950 mg by mout h twice daily Sodium Bicarbonate Active 1950 MG PO Twice daily November 09, 2018 3:30pm solifenacin succinate 10 mg oral tablet (16 sources) Cholinergic Muscarinic Antagonist Start: 12-18-2024 take 1 tablet by mouth once daily VESIcare 10 MG tablet Indications: Overactive Bladder Take 10 mg by mouth Daily 12/18/2024 Active spironolactone 25 mg oral tablet (20 sources) Aldosterone Antagonist Start: 05-03-2025 spironolactone (Aldactone) 25 MG tablet Indications: Lymphedema of both lower extremities 2 tablets in Am and 1 tablet in PM 270 tablet 1 05/03/2025 Active Start: 09-04-2024 spironolactone 25 mg Tab See Instructions, Refills(s) 0 Start Date: 09/04/24 Status: Ordered Repeat number: 1 Start: 05-02-2024 End: 04-26-2025 spironolactone (Aldactone) 2 5 MG tablet Indications: Lymphedema of both lower extremities 2 tablets in Am and 1 tablet in PM 270 tablet 1 10/31/2024 04/26/2025 Discontinued (Reorder) Start: 11-04-2023 spironolactone (Aldactone) 25 MG tablet Indications: Lymphedema of both lower extremities 2 tablets in Am and 1 tablet in PM 270 tablet 0 11/04/2023 Active tamsulosin hydrochloride 0.4 mg oral capsule (20 sources) alpha-Adrenergic Dean Start: 01-10-2025 take 1 capsule by mouth once daily tamsulosin 0.4 mg Cap 0.4 mg = 1 cap(s), Oral, Daily, # 90 cap(s), Refills(s) 3, Pharmacy: [facility]/pharmacy #[id number], 185, cm, 12/18/24 11:08:00 EST, Height/Length Dosing, 129.7, kg, 12/18/24 11:08:00 EST, Weight Dosing Start Date: 01/10/25 Status: Ordered Quantity: 90.0 Unit: cap(s) Repeat number: 4 Start: 01-12-2024 take 1 capsule by [facility] once daily tamsulosin 0.4 mg Cap 0.4 mg = 1 cap(s), Oral, Daily, # 90 cap(s), Refills(s) 3, Pharmacy: [facility]/pharmacy #[id number], 185, cm, 07/21/23 13:37:00 EDT, Height/Length Dosing, 138.2, kg, 07/21/23 13:37:00 EDT, Weight Dosing Start Date: 01/12/24 Status: Ordered Start: 11-09-2018 take 1 capsule by [facility] once daily tamsulosin 0.4 mg Cap 0.4 mg = 1 cap(s), Oral, Daily, # 90 cap(s), Refills(s) 3, Pharmacy: [facility]/pharmacy #[id number], 185, cm, 12/22/21 12:11:00 EST, Height/Length [...] other diabetic neurological complication] Onset: 6 Resolved: 5 Chronic Disorders of lipid metabolism (20 sources) [...] with lower urinary tract symptoms] Onset: 6 Resolved: 5 Chronic Hypertension with complications and secondary hypertension (20 sources) Hypertensive left ventricular hypertrophy; Translations: [Hypertensive heart disease without heart failure] Onset: 3 04-12-2023 Chronic Mycoses (4 sources) Onychomycosis; Translations: [Tinea unguium] 12-09-2023 Episodic Open wounds of extremities (2 sources) Tear of skin; Translations: [Laceration without foreign body of unspecified upper arm, initial encounter] 02-20-2025 Episodic Other aftercare (1 source) exterminator termite (current) use of anticoagulants; Translations: [DETENTION CURRNT USE ANTICOAGULANTS] Onset: 3 Episodic Other aftercare (1 source) penitentiary (current) use of oral hypoglycemic drugs; Translations: [METALSMITH APPRENTICE USE ORAL HYPOGLYCEMIC DX] Onset: 3 Episodic Other aftercare (1 source) Other terminal make up operator (current) drug therapy; Translations: [OTH DETENTION CURRENT DRUG THERAPY] Onset: 3 Episodic Other aftercare (1 source) Long-term current use of drug therapy; Translations: [Other terminal make up operator (current) drug therapy] 12-30-2024 Episodic Other aftercare (4 sources) Patient encounter status; Translations: [Encounter for follow-up examination after completed treatment for conditions other than malignant neoplasm] 02-20-2025 Episodic Other circulatory disease (2 sources) Bleeding; Translations: [Hemorrhage, not elsewhere classified] 02-20-2025 Episodic Other connective tissue disease (20 sources) Fibromyalgia; Translations: [Fibromyalgia] 04-11-2024 Episodic Other diseases of bladder and urethra (3 sources) Detrusor overactivity; Translations: [Overactive bladder] Onset: 4 Chronic Other diseases of bladder and urethra (3 sources) Overactive bladder 09-04-2024 Chronic Other diseases of veins and lymphatics (20 sources) Lymphedema of bilateral lower limbs; Translations: [Lymphedema, not elsewhere classified] Onset: 3 04-12-2023 Chronic Other nervous system disorders (20 sources) Difficulty walking; Translations: [Difficulty in walking, not elsewhere classified] Onset: 3 04-12-2023 Chronic Other nutritional; endocrine; and metabolic disorders (16 sources) Morbid obesity; Translations: [Morbid (severe) obesity due to excess calories] Onset: 3 04-12-2023 Chronic Other screening for suspected conditions (not mental disorders or infectious disease) (20 sources) Raised prostate specific antigen; Translations: [Elevated prostate specific antigen [PSA]] Onset: 2 Episodic Other skin disorders (4 sources) Acquired keratoderma; Translations: [Acquired keratosis [keratoderma] palmaris et plantaris] 12-09-2023 Episodic Other skin disorders (1 source) Callosity; Translations: [Corns and callosities] 04-05-2025 Episodic Peripheral and visceral atherosclerosis (20 sources) [...] Onset: 4 07-26-2024 Chronic Residual codes; unclassified (5 sources) Family history of cancer; Translations: [Family history of malignant neoplasm of prostate] Onset: Episodic Residual codes; unclassified (1 source) Family history of malignant neoplasm of prostate; Translations: [FAMILY HX MALIG NEOPLASM PROSTATE] Onset: 3 Episodic Residual codes; unclassified (1 source) Pain, unspecified; Translations: [Pain, unspecified] Onset: 4 Episodic Residual codes; unclassified (1 source) Edema Onset: 4 Episodic Residual codes; unclassified (2 sources) Active advance directive (copy within chart) ; Translations: [Other specified health status] 04-30-2025 Episodic Retinal detachments; defects; vascular occlusion; and retinopathy (20 sources) Bilateral age-related nonexudative macular degeneration; Translations: [Nonexudative age-related macular degeneration, bilateral, stage unspecified] Onset: 6 Resolved: 5 04-12-2023 Chronic Spondylosis; intervertebral disc disorders; other back problems (20 sources) Spondylosis; Translations: [Other spondylosis with radiculopathy, thoracolumbar region] Onset: 0 04-12-2023 Chronic Spondylosis; intervertebral disc disorders; other back problems (20 sources) Spinal stenosis of lumbar region; Translations: [Spinal stenosis, lumbar region with neurogenic claudication] Onset: 4 04-17-2021 Episodic Unclassified (1 source) Hospital Follow-up Onset: 4 Varicose veins of lower extremity (2 sources) Varicose veins of bilateral lower extremities with pain; Translations: [Varicose veins of bilateral lower extremities with pain] Onset: 4 Episodic Past or Other Problems Problem Classification Problem Date Documented Da te Episodic/Chronic Abdominal pain (20 sources) Flank pain; Translations: [Unspecified abdominal pain] Onset: 02-01-2014 Resolved: 05-07-2025 07-28-2023 Episodic Calculus of urinary tract (20 [...] [Cardiac murmur, unspecified] Onset: 04-12-2023 04-12-2023 Episodic Malaise and fatigue (20 sources) Asthenia; Translations: [Weakness] Resolved: 05-07-2025 04-11-2024 Episodic Mood disorders (20 sources) Mood disorders Onset: 04-03-2024 Resolved: 05-07-2025 04-03-2024 Other acquired deformities (20 sources) Lumbar spondylolisthesis; Translations: [Spondylolisthesis, lumbar region] Onset: 04-12-2023 04-12-2023 Episodic Other aftercare (20 sources) Polypharmacy ; Translations: [Other terminal make up operator (current) drug therapy] Onset: 08-05-2021 07-28-2023 [...] Translations: [Snoring] Onset: 07-26-2024 07-26-2024 Episodic Other nervous system disorders (20 sources) Polyneuropathy; Translations: [Polyneuropathy, unspecified] Resolved: 04-25-2025 04-11-2024 Chronic Other nutritional; endocrine; and metabolic [...] 30+ - obesity; Translations: [Obesity, unspecified] Onset: 07-26-2024 Resolved: 04-25-2025 07-26-2024 Chronic Other nutritional; endocrine; and metabolic disorders [...] and tophaceous disease] Onset: 04-12-2023 04-12-2023 Episodic Phlebitis; thrombophlebitis and thromboembolism (20 sources) Deep venous thrombosis of lower extremity; Translations: [Personal history of other venous thrombosis and embolism] Onset: 01-20-2023 Resolved: 05-07-2025 09-18-2019 Episodic Residual codes; unclassified (20 sources) Family history of prostate cancer; Translations: [Family history of malignant neoplasm of prostate] Onset: 07-28-2023 Resolved: 11-04-2023 12-22-2021 Episodic Skin and subcutaneous tissue infections (20 sources) Cellulitis; Translations: [Cellulitis, unspecified] Onset: 04-12-2023 04-12-2023 Episodic Results Test Name Value Interpretation Reference Range Facility MLR HEMOGLOBIN A1Con 025 Glucose [Mass/Vol] 151 mg/dL [facility] HbA1c (Bld) [Mass fraction] 6.9 % High 4.5 - 6.2 % [facility] Comment on above: ADA RECOMMENDED LIMI T 4.0 - 6.0 ADA THERAPEUTIC TARGET < 7.0 ACTION SUGGESTED > 7.0 No Panel Informationon 04-24 Interpretation and review of laboratory results Abnormal [facility] TBH MICROALB CREAT RATIO RAN DOMon 04-24-2025 CREATININE URINE RANDOM 52.26 mg/dL 20.00 - 300.00 mg/dL [facility] MICROALBUM CREATININE RATIO UR 57.4 mg/g High 0.0 - 29.9 mg/g [facility] Comment on above: NO MICROALBUMINURIA 0-29 MG/G CLINICAL MICROALBUMINURIA 30-300 MG/G MACROALBUMINURIA >300 MG/G MICROALBUMIN URINE RANDOM 3 mg/dL NINF - 30.0 mg/dL [facility] ISTAT XRay CREon 04-23-2025 Creatinine [Mass/Vol] 1.3 mg/dL Normal 0.6-1.3 [facility] Comment on above: Result Comment: ER/E SD physician is notified/shown all ISTAT results. Critical values may be confirmed by laboratory testing if deemed necessary by ER attending doctor. Performed By: #### I SCRE #### [address] ISTAT GFR 57.289 Normal [facility] Comment on above: Result Comment: PERF ORMED BY: [place] [id number] PATHOLOGIST BIOINFORMATICS SUPPORT SPECIALIST DORITA KOROMA M.D. Performed By: #### I SCRE #### [facility] [address] [place] [address] MR prostate wo/w conon 04-23 MR prostate wo/w con [facility] [place] [address] [place], [place] [id number] MRI Report Signed Patient: Manuel Balderas MR#: [id number] : 1950 Acct:[id number] Age/Sex: 75 / M ADM Date: 04/23/25 Loc: MR Room: Type: [facility] Attending Dr: Madison Beach MD Copies to: Madison Beach MD Ordering Provider: Madison Beach MD Date of Service: 04/23/25 MR/MR prostate wo/w con: R97.20 EXAMINATION: MR prostate wo/w con HISTORY: Elevated PSA level. COMPARISON: NONE TECHNIQUE: Multiparametric imaging of the prostate gland was performed with IV contrast. FINDINGS: Prostate Dimensions: 6.9 x 4.8 x 6.6 cm. Prostate Volume: 114 mL Peripheral Zone: Heterogenous inT2 signal suggestive of prior prostatitis. Focal area of T2 hypointensity involving the lateral aspect of the right peripheral zone near the apex measuring 5 x 5 mm with associated restricted diffusion and low ADC value. Please see series 4 image 7, series 650 image 5 and series 600 image 5. Central/Transitional Zone: BPH changes. Ill-defined area of T2 hypointensity is seen involving the anterior aspect of the right transitional zone near the apex measuring approximately 27 x 18 mm with associated restricted diffusion and low ADC value. Please see series 4 image 8, series 650 image 6 and series 600 image 6. Seminal Vesicles: Unremarkable Neurovascular bundles: Unremarkable. Lymphadenopathy: No evidence of lymphadenopathy. Bladder: No focal lesion. Bowel: Diverticulosis. Peritoneal Cavity: No free fluid. Bones: No suspicious bony lesion. MR/MR prostate wo/w con IMPRESSION: Focal area of T2 hypointensity involving the lateral aspect of the right peripheral zone near the apex measuring 5 x 5 mm with associated restricted diffusion and low ADC value. Please see series 4 image 7, series 650 image 5 and series 600 image 5. PI-RADS 4. Targeting of this lesion on biopsy is recommended. Ill-defined area of T2 hypointensity is seen involving the anterior aspect of the right transitional zone near the apex measuring approximately 27 x 18 mm with associated restricted diffusion and low ADC value. Please see series 4 image 8, series 650 image 6 and series 600 image 6. PI-RADS 5. Targeting of this area on biopsy is recommended. Impression dictated by: Rickie Cornejo Jr., D.O. 04/23/2025 4:52 PM Dictation Location: [place] [address] Transcribed By: RHONDA 04/23/25 1652 Dictated By: Rickie Cornejo Jr, 04/23/25 1645 Signed By: 04/23/25 1652 Normal [facility] Ambulatory Visit Summaryon 0 04-02-2025 Ambulatory Visit Summary Ambulatory Visit Summary MANUEL BALDERAS :1950 Visit Date:04/02/2025 Ambulatory Visit Instructions Your Diagnosis OAB (overactive bladder) Elevated PSA Kidney stones BPH with urinary obstruction Family history of prostate cancer in father Tests Performed MRI Pelvis (Soft Tissue) w/ + w/o contrast -- Results Pending -- Please visit your patient portal for your results or contact your primary care physician. Your Care Team Attending Physician - NINA LEVY, Madison Crespo Primary Care Physician - JELENA LEVY, KHOA Yanes This Is Your Medications List allopurinol (allopurinol 300 mg Tab) sodium bicarbonate (sodium bicarbonate 650 mg Tab) solifenacin (Vesicare 10 mg Tab) tamsulosin (tamsulosin 0.4 mg Cap) Contact prescribing physician if questions or concerns aspirin (aspirin 81 mg oral tablet) biotin dapagliflozin (Farxiga 10 mg oral tablet) doxycycline (doxycycline hyclate 100 mg Cap) duloxetine (duloxetine 30 mg oral delayed release capsule) fenofibrate (fenofibrate 160 mg oral tablet) hydrochlorothiazide (hydrochlorothiazide 25 mg Tab) hydrochlorothiazide-los theodora [...] repair, History of varicose veins, Rotator cuff. What to do next You Need to Schedule the Following Appointments Follow Up with NINA LEVY, MELANIE Sims When: Where: [facility] [address], [place] [address] [phone] Medications What How Much When Why Instructions Unchanged allopurinol (allopurinol 300 mg Tab) 1 Tablets By Mouth Every day Unchanged sodium bicarbonate (sodium bicarbonate 650 mg Tab) 3 Tablets By Mouth 2 times a day Unchanged solifenacin (Vesicare 10 mg Tab) 1 Tablets By Mouth Every day OAB (overactive bladder) Unchanged tamsulosin (tamsulosin 0.4 mg Cap) 1 [...] prescribing physician if questions or concerns Unchanged duloxetine (duloxetine 30 mg oral delayed release capsule) 1 Capsules Contact prescribing physician if questions or concerns [...] Contact prescribing physician if questions or concerns Allergies Demerol (Shakes) Meperidine HCl-Promethazine HCl (Unknown) Problems Ongoing - Any problem that you are currently receiving treatment for. BPH with urinary obstruction Deep vein thrombosis (DVT) of left lower extremity Diabetes Elevated PSA Family history of prostate cancer in father Hyperlipidemia Hypertension Kidney stones Nocturia OAB (overactive bladder) Personal history of kidney stones Proteinuria Patient Survey You may receive a survey via text or e-mail asking about your office visit. Please share your experience with us by completing your survey. We appreciate your feedback and thank you for choosing us (more content not included)... Normal [facility] Urology Office/Clinic Noteon 04-02-2025 Urology Office/Clinic Note Urology Office/Clinic Note Chief Complaint Elevated PSA HPI Staff 74 yr old male here for 3 mth f/u w/ PVR & PSA DX: BPH with urinary obstruction, elevated PSA, family history of prostate cancer, gross hematuria, nocturia, personal history of kidney stones, proteinuria, renal stone. *Flomax 0.4m QD. Started Myrbetriq 50 mg ER qd PSA: 09/11/21 - 4.07 09/09/22 - 4.48 12/31/22 - 4.15 08/31/24 - 5.17 03/15/25 - 5.80 IPSS score of 4 today. Pt is very happy with the results he is getting from the Vesicare. Denies any leakage issues. Nocturia x2. Denies any visible blood or pain of any kind. History of Present Illness Tests reviewed: reviewed PSA I have reviewed the previous health record information and history for this patient from Dr. Beach. I have reviewed and verified the staff HPI to be accurate for this encounter. Review of Systems ROS - Provider Constitutional: denies weight loss, denies hot flashes. Eyes: denies eye problems. Gastrointestinal: denies nausea, denies vomiting. Cardiovascular: denies chest pain or angina. Integumentary: no dryness Musculoskeletal: denies musculoskeletal symptoms. ENMT: denies otolaryngeal symptoms. Respiratory: no shortness of breath. Heme/Lymph: denies easy bleeding tendency, denies easy bruising tendency. Psychiatric: no confusion, no anxiety. Genitourinary: See HPI. Physical Exam General Appearance: alert, no distress, well nourished, well developed male. Assessment/Plan 1. OAB (overactive bladder) (N32.81: Overactive bladder) Took Myrbetriq 50 mg ER x1 month, stopped given expense but did have some sx improvement. Gemtesa was not covered by insurance. PVR (cc): 12/18/24 - Start Vesicare 10mg qd at prior OV. Shares he is constipated but deals with this at baseline. Recommended stool softeners. Pt does feel he has been experiencing less urinary leakage. -Cont Vesicare wo changes. Pt to call for refills. 2. Elevated PSA (R97.20: Elevated prostate specific antigen [PSA]) PSA: 09/11/20 - 2.20 & 36.4% 09/11/21 - 4.07 09/09/22 - 4.48 12/31/22 - 4.15 08/31/24 - 5.17 03/15/25 - 5.80 MRI prostate 10/09/21 - Neg. PSA has increased slightly from prior, highest level on record. However did have neg MRI a few years ago. Discussed options of repeating MRI vs prostate biopsy vs close monitoring of PSA. Pt wishes to proceed with prostate MRI given strong fam hx. -Schedule prostate MRI. Will call pt w results. 3. Kidney stones (N20.0: Calculus of kidney) [...] 1,950 mg bid. [2] -Cont meds wo changes. Pt to call for refills. -KUB due 09/2025 4. BPH with urinary obstruction (N40.1: Benign prostatic hyperplasia with lower urinary tract symptoms) IPSS 4 (6). UA today negative for blood and infection. Taking Flomax 0.4 mg qd. Good stream. -Cont Flomax wo changes. Pt to call for refills. 5. Family history of prostate cancer in father (Z80.42: Family history of malignant neoplasm of prostate) Father was tx'd w/ prostatectomy. Uncle also had pros ca. Follow-up With When Contact Information Madison BEACH MD, URL [facility] [address], [place] [address] [phone] Additional Instructions: schedule prostate MRI Patient Education Magnetic Resonance Imaging Prostate Cancer Screening I, Kenyatta Mosher, personally scribed for Dr. Beach on 04/02/2025 13:13:08. . Documentation recorded by the scribe, Kenyatta Mosher, accurately reflects the services(s) I performed and decisions made by me. Authenticated by Dr. Beach on 04/02/2025 13:14:26. Problem List/Past Medical History Ongoing BPH with [...] ureteric stent (07/01/2004), Dormia basket extraction of u (more content not included)... Normal [facility] Comment on above: Result Comment: Elec tronically Signed By: Madison BEACH MD\.br\Date and Time Signed: 04/02/25 13:14 EDT\.br\Electronically Co-Signed By: Kenyatta Mosher\.br\Date and Time Co-Signed: 04/02/25 13:13 EDT MHPT PSA, DIAGNOSTICon 03-15 Interpretation and review of laboratory results Abnormal [facility] PROSTATE SPECIFIC ANTIGEN DX 5.8 ng/mL High NINF - 4.00 ng/mL [facility] Ambulatory Visit Summaryon 0 12-18-2024 Ambulatory Visit [...] Madison BEACH MD Where: [facility] [address] [place] [address]- You Need to Schedule the Following Appointments Follow Up with NINA LEVY, Madison Crespo, URL When: Comments: 3 mos w/ PVR and PSA Where: [facility] [address], [place] [address]- [phone] Medications What How Much When Why Instructions New solifenacin (Vesicare 10 mg Tab) 1 Tablets By Mouth Every day OAB (overactive bladder) Refills: 11 Pickup at [facility] Unchanged allopurinol (allopurinol 300 mg Tab) [...] physician if questions or concerns Pharmacy Information [facility]: [address] [phone] What How Much When Comments Stop Taking mirabegron (mirabegron 50 mg oral tablet, extended release) 1 Tablets By M (more content not included)... Normal [facility] Ambulatory Visit Summary Ambulatory Visit Summary MANUEL BALDERAS Joaquín :1950 Visit Date:12/18/2024 Ambulatory Visit Instructions Your [...] Madison BEACH MD Where: [facility] [address] [place] [address]- You Need to Schedule the Following Appointments Follow Up with Madison BEACH MD, URL When: Comments: 3 mos w/ PVR and PSA Where: [facility] [address], [place] [address]- [phone] Medications What How Much When Why Instructions New solifenacin (Vesicare 10 mg Tab) 1 Tablets By Mouth Every day OAB (overactive bladder) Refills: 11 Pickup at [facility] Unchanged allopurinol (allopurinol 300 mg Tab) [...] physician if questions or concerns Pharmacy Information [facility]: [address] [place], [place] [phone] What How Much When Comments Stop Taking mirabegron (mirabegron 50 mg oral tablet, extended release) 1 Tablets By M (more content not included)... Normal [facility] Urology Office/Clinic Noteon 12-18-2024 Urology Office/Clinic Note [...] 10mg qd. Recommended GoodRx. Rx sent to [facility] Maria R. -F/u in 3 mos w/ PVR 2. [...] [facility] [address], [place] [address] [phone] Additional Instructions: 3 mos w/ PVR and [...] Percutaneous nephroli (more content not included)... Normal [facility] Comment on above: Result Comment: Elec tronically Signed By: Madison BEACH MD\.br\Date and Time Signed: 12/18/24 11:36 EST\.br\Electronically Co-Signed By: Kenyatta Mosher\.br\Date and Time Co-Signed: 12/18/24 11:33 EST [facility] CMP (CMP) (FOR REMOTE FH C USE)on 10-26-2024 Albumin [Mass/Vol] 3.8 g/dL 3.4 - 5.0 g/dL [facility] ALBUMIN GLOBULIN RATIO 1.5 [facility] ALP [Catalytic activity/Vol] 60 U/L 46 - 116 U/L [facility] ALT [Catalytic activity/Vol] 56 U/L 16 - 63 U/L [facility] Anion gap [Moles/Vol] 14.2 mmol/L [facility] AST [Catalytic activity/Vol] 42 U/L High 15 - 37 U/L [facility] Bilirubin [Mass/Vol] 0.5 mg/dL 0.2 - 1.0 mg/dL [facility] Calcium [Mass/Vol] 10.2 mg/dL High 8.5 - 10. 1 mg/dL [facility] Chloride [Moles/Vol] 106 mmol/L 98 - 107 mmol/L [facility] CO2 [Moles/Vol] 27.4 mmol/L 21.0 - 32.0 mmol/L [facility] Creatinine [Mass/Vol] 1.32 mg/dL High 0.70 - 1.30 mg/dL [facility] GFR/1.73 sq M.predicted CKD-EPI (S/P/Bld) [Vol rate/Area] >60 >=60 mL/min/1.73m 2 [facility] Globulin (S) [Mass/Vol] 2.6 g/dL [facility] Glucose [Mass/Vol] 176 mg/dL High 74 - 106 mg/dL [facility] Interpretation and review of laboratory results Abnormal [facility] Potassium [Moles/Vol] 4.6 mmol/L 3.5 - 5.1 mmol/L [facility] Protein [Mass/Vol] 6.4 g/dL 6.4 - 8.2 g/dL [facility] Sodium [Moles/Vol] 143 mmol/L 136 - 145 mmol/L [facility] TBH EGFR-NON AF KAZAKH 53 Low >=60 mL/min/1.73m 2 [facility] Urea nitrogen [Mass/Vol] 35 mg/dL High 7.0 - 18.0 mg/dL [facility] Urea nitrogen/Creatinine [Mass ratio] 26.5 mg/mg [facility] Ambulatory Visit Summaryon 1 11-04-2023 Ambulatory Visit Summary Ambulatory Visit Summary MANUEL BALDERAS Joaquín :1950 Visit Date:09/04/2024 Ambulatory Visit Instructions Your [...] Madison BEACH MD Where: [facility] [address] [place] [address]- You Need to Schedule the Following Appointments Follow Up with Madison BEACH MD, URL When: Where: [facility] [address], [place] [address]- Medications What How Much When Instructions New mirabegron (mirabegron 50 mg oral tablet, extended release) 1 Tablets By Mouth Every day Duration: 30 Days Refills: 11 Pickup at [facility]/pharmacy #[id number] Unchanged allopurinol (allopurinol 300 mg Tab) 1 [...] physician if questions or concerns Pharmacy Information [facility]/pharmacy #[id number]: [address] [place], [place] [phone] Allergies Demerol (Shakes) Meperidine HCl-Promethazine HCl (Unknown) Problems Ongoing - Any problem that you are currently recei (more content not included)... Normal [facility] Urology Office/Clinic Noteon 09-04-2024 Urology Office/Clinic Note [...] mg ER qd. SEs discussed. Sent to [facility] Maria R. 3. Elevated PSA (R97.20: Elevated [...] [facility] [address], [place] [address]- Additional Instructions: 3 mos with PVR Patient [...] included)... Normal [facility] Comment on above: Result Comment: Elec tronically Signed By: Madison BEACH MD R\.br\Date and Time Signed: 09/04/24 14:27 EST\.br\Electronically Co-Signed By: Kenzie Fierro\.br\Date and Time Co-Signed: 09/04/24 14:26 EST MHPT PSA, DIAGNOSTICon 08-31 Interpretation and review of laboratory results Abnormal [facility] PROSTATE SPECIFIC ANTIGEN DX 5.17 ng/mL High NINF - 4.00 ng/mL [facility] CITRATE URINE 24HRon 023 Citric Acid, U, 24hr 1042 mg/24 hr Normal 320-1240 [facility] Comment on above: Result Comment: This test was developed and its performance characteristics determined by [facility]. It has not been cleared or approved by the Food and Drug Administration. Performed By: #### C BC #### [facility] [address] [place] [address] [address] Cleveland Snowden Citric Acid, Urine 731 mg/L Normal Undefined [facility] Comment on above: Performed By: #### C BC #### [facility] [address] [address] [address] Cleveland Snowden OXALATE 24HR URINEon 023 Oxalates, Urine 19 mg/L Normal Undefined [facility] Comment on above: Performed By: #### C BC #### [facility] [address] [address] [address] Cleveland Snowden Oxalates, Urine 24hr 27 mg/24 hr Normal 7-44 [facility] Comment on above: Performed By: #### C BC #### [facility] [address] [address] [address] Cleveland Snowden MAGNESIUM 24HR URINEon 02-05 Magnesium 24hr Urine 82.7 mg/24 hr Normal 12.0-293.0 [facility] Comment on above: Performed By: #### C BC #### [facility] [address] [place] [address] Dr. Cleveland Snowden Magnesium UR 5.8 mg/dL Normal Not Estab. [facility] Comment on above: Performed By: #### C BC #### [facility] [address] [place] [address] Dr. Cleveland Snowden PHOSPHORUS 24HR URINEon Phosphorus, Urine 59.7 mg/dL Normal Not Estab. [facility] Comment on above: Performed By: #### P T, PTT #### [facility] [address] [place] [address] Dr. Cleveland Snowden Phosphorus, Urine 24hr 851 mg/24 hr Normal 390-1425 [facility] Comment on above: Performed By: #### P T, PTT #### [facility] [address] [place] [address] Dr. Cleveland Snowden PTH INTACTon 02-05-2023 PTH, Intact 18 pg/mL Normal 15-65 [facility] Comment on above: Performed By: #### P THINT #### [facility] [address] [place] [address] Dr. Cleveland Snowden URIC ACID 24 HR URINEon Uric Acid, Urine 36.4 mg/dL Normal Not Estab. [facility] Comment on above: Performed By: #### P T, PTT #### [facility] [address] [place] [address] Dr. Cleveland Snowden Uric Acid, Urine 24hr 518.7 mg/24 hr Normal 136.1-771.1 [facility] Comment on above: Performed By: #### P T, PTT #### [facility] [address] [place] [address] Dr. Cleveland Snowden BUNon 02-04-2023 Urea nitrogen [Mass/Vol] 22.0 mg/dL Critically high 7.0-18.0 [facility] Comment on above: Performed By: #### C BC #### [facility] [address] [place] [address] Dr. Cleveland Snowden CALCIUMon 02-04-2023 Calcium [Mass/Vol] 9.7 mg/dL Normal 8.5-10.1 [facility] Comment on above: Performed By: #### C BC #### [facility] [address] [place] [address] Dr. Cleveland Snowden CALCIUM 24 HR URINEon 2022 CALC, 24 HR UR 84.1 mg/24 hr Critically low 100.0-300.0 [facility] Comment on above: Performed By: #### C [id number] #### [facility] [address] [address] [address] Cleveland Snowden UR CALCIUM 5.9 mg/dL Normal 5.1-21.0 [facility] Comment on above: Performed By: #### C [id number] #### [facility] [address] [place] [address] Dr. Cleveland Snowden UR TOT VOL 1425 ml/24 HR Normal [facility] Comment on above: Performed By: #### C [id number] #### [facility] [address] [address] [address] Cleveland Snowden Performed By: #### C REA24U, NA24U #### [facility] [address] [place] [address] Dr. Cleveland Snowden Performed By: #### P T, PTT #### [facility] [address] [place] [address] Dr. Cleveland Snowden CHLORIDEon 02-04-2023 Chloride [Moles/Vol] 107 mmol/L Normal 98-107 [facility] Comment on above: Performed By: #### C BC #### [facility] [address] [place] [address] Dr. Cleveland Snowden CO2on 02-04-2023 CO2 [Moles/Vol] 33.7 mmol/L Critically high 21.0-32.0 [facility] Comment on above: Performed By: #### A 1C #### [facility] [address] [place] [address] Dr. Cleveland Snowden CREA 24 HR URINEon 3 CREA, 24 HR UR 1115.21 mg/24 hr Normal 1,000.00- 2,00 0.00 [facility] Comment on above: Performed By: #### P T, PTT #### [facility] [address] [place] [address] Dr. Cleveland Snowden URINE CREAT 78.26 mg/dL Normal 20.00-300.[address] [facility] Comment on above: Performed By: #### P T, PTT #### [facility] [address] [place] [address] Dr. Cleveland Snowden CREATININEon 02-04-2023 Creatinine [Mass/Vol] 0.91 mg/dL Normal 0.70-1.30 [facility] Comment on above: Performed By: #### A 1C #### [facility] [address] [place] [address] Dr. Cleveland Snowden EGFR-AF KAZAKH >60 Normal >=60 [facility] Comment on above: Performed By: #### A 1C #### [facility] [address] [place] [address] Dr. Cleveland Snowden EGFR-NON AF KAZAKH >60 Normal >=60 [facility] Comment on above: Performed By: #### A 1C #### [facility] [address] [place] [address] Dr. Cleveland Snowden NAon 02-04-2023 Sodium [Moles/Vol] 144 mmol/L Normal 136-145 [facility] Comment on above: Performed By: #### C BC #### [facility] [address] [place] [address] Dr. Cleveland Snowden POTASSIUMon 02-04-2023 Potassium [Moles/Vol] 4.1 mmol/L Normal 3.5-5.1 [facility] Comment on above: Performed By: #### A 1C #### [facility] [address] [place] [address] Dr. Cleveland Snowden SODIUM 24 HR URINEon 023 NA, 24 HR UR 221 mmol/24 hr Critically high 40-220 [facility] Comment on above: Performed By: #### C [id number] NA24U #### [facility] [address] [place] [address] Dr. Cleveland Snowden Sodium (U) [Moles/Vol] 155 mmol/L Critically high 30-90 [facility] Comment on above: Performed By: #### C REA24U, NA24U #### [facility] [address] [place] [address] Dr. Cleveland Snowden URIC ACID SERUMon 02-04-2023 Urate [Mass/Vol] 4.3 mg/dL Normal 3.5-7.2 [facility] Comment on above: Performed By: #### C BC #### [facility] [address] [place] [address] Dr. Cleveland Snowden POINT OF CARE GLUCOSEon 12-30 Glucose [Mass/Vol] 237 mg/dL Critically high 74-106 [facility] Comment on above: Performed By: #### P T, PTT #### [facility] [address] [place] [address] Dr. Cleveland Snowden XR KUB 1 VIEWon [...] ISAK CORTEZ Date: 2023-01-14 08:37 Normal [facility] CBC AUTO DIFFon 01-08-2023 BASO # 0.0 103/ul Normal 0.0-0.1 [facility] Comment on above: Performed By: #### C BC #### [facility] [address] [place] [address] Dr. Cleveland Snowden Basophils/100 WBC (Bld) 0.4 % Normal 0.2-2.0 [facility] Comment on above: Performed By: #### C BC #### [facility] [address] [address] [address] Cleveland Snowden EO # 0.2 103/ul Normal 0.0-0.7 [facility] Comment on above: Performed By: #### C BC #### [facility] [address] [address] [address] Cleveland Snowden Eosinophils/100 WBC (Bld) 4.4 % Normal 0.9-7.0 [facility] Comment on above: Performed By: #### C BC #### [facility] [address] [place] [address] Dr. Cleveland Snowden Erythrocyte distribution width (RBC) [Ratio] 14.8 % Normal 11.0-15.0 [facility] Comment on above: Performed By: #### C BC #### [facility] [address] [place] [address] Dr. Cleveland Snowden Hematocrit (Bld) [Volume fraction] 35.7 % Critically low 42.0-54.0 [facility] Comment on above: Performed By: #### C BC #### [facility] [address] [place] [address] Dr. Cleveland Snowden Hemoglobin (Bld) [Mass/Vol] 12.0 g/dL Critically low 14.0-18.0 [facility] Comment on above: Performed By: #### C BC #### [facility] [address] [place] [address] Dr. Cleveland Snowden IG # 0.03 10e3/ul Normal 0.00-0.03 [facility] Comment on above: Performed By: #### C BC #### [facility] [address] [place] [address] Dr. Cleveland Snowden IG % 0.6 % Critically high 0.0-0.5 [facility] Comment on above: Performed By: #### C BC #### [facility] [address] [place] [address] Dr. Cleveland Snowden LYMPH # 0.7 103/ul Critically low 1.2-3.8 [facility] Comment on above: Performed By: #### C BC #### [facility] [address] [place] [address] Dr. Cleveland Snowden Lymphocytes/100 WBC (Bld) 14.4 % Critically low 20.5-60.0 [facility] Comment on above: Performed By: #### C BC #### [facility] [address] [place] [address] Dr. Cleveland Snowden MANUAL DIFF REQ NO Normal [facility] Comment on above: Performed By: #### C BC #### [facility] [address] [place] [address] Dr. Cleveland Snowden MCH (RBC) [Entitic mass] 31.1 pg Normal 25.9-34.0 [facility] Comment on above: Performed By: #### C BC #### [facility] [address] [place] [address] Dr. Cleveland Snowden MCHC (RBC) [Mass/Vol] 33.6 g/dL Normal 29.9-35.2 [facility] Comment on above: Performed By: #### C BC #### [facility] [address] [place] [address] Dr. Cleveland Snowden MCV (RBC) [Entitic vol] 92.5 fL Normal 80.0-94.0 [facility] Comment on above: Performed By: #### C BC #### [facility] [address] [place] [address] Dr. Cleveland Snowden MONO # 0.5 103/ul Normal 0.3-0.8 [facility] Comment on above: Performed By: #### C BC #### [facility] [address] [place] [address] Dr. Cleveland Snowden Monocytes/100 WBC (Bld) 11.0 % Normal 1.7-12.0 [facility] Comment on above: Performed By: #### C BC #### [facility] [address] [place] [address] Dr. Cleveland Snowden NEUT # 3.3 103/ul Normal 1.4-6.5 [facility] Comment on above: Performed By: #### C BC #### [facility] [address] [place] [address] Dr. Cleveland Snowden Neutrophils/100 WBC (Bld) 69.2 % Normal 43.0-75.0 [facility] Comment on above: Performed By: #### C BC #### [facility] [address] [address] [address] Cleveland Snowden Platelet mean volume (Bld) [Entitic vol] 10.0 fL Normal 9.5-13.5 [facility] Comment on above: Performed By: #### C BC #### [facility] [address] [address] [address] Cleveland Snowden PLT 105 103/ul Critically low 150-[address] [facility] Comment on above: Performed By: #### C BC #### [facility] [address] [address] [address] Cleveland Snowden RBC 3.86 106/ul Critically low 4.70-6.10 [facility] Comment on above: Performed By: #### C BC #### [facility] [address] [address] [address] Cleveland Snowden WBC 4.8 103/ul Normal 4.0-11.0 [facility] Comment on above: Performed By: #### C BC #### [facility] [address] [address] [address] Cleveland Snowden PROF CHEM 8 (BAS METB)on Anion gap [Moles/Vol] 12.7 mmol/L Normal [facility] Comment on above: Performed By: #### C BC #### [facility] [address] [place] [address] Dr. Cleveland Snowden Calcium [Mass/Vol] 9.6 mg/dL Normal 8.5-10.1 [facility] Comment on above: Performed By: #### C BC #### [facility] [address] [address] [address] Cleveland Snowden Chloride [Moles/Vol] 107 mmol/L Normal 98-107 [facility] Comment on above: Performed By: #### C BC #### [facility] [address] [place] [address] Dr. Cleveland Snowden CO2 [Moles/Vol] 29.0 mmol/L Normal 21.0-32.0 [facility] Comment on above: Performed By: #### C BC #### [facility] [address] [place] [address] Dr. Cleveland Snowden Creatinine [Mass/Vol] 0.76 mg/dL Normal 0.70-1.30 [facility] Comment on above: Performed By: #### C BC #### [facility] [address] [address] [address] Celveland Snowden EGFR-AF KAZAKH >60 Normal >=60 [facility] Comment on above: Performed By: #### C BC #### [facility] [address] [place] [address] Dr. Cleveland Snowden EGFR-NON AF KAZAKH >60 Normal >=60 [facility] Comment on above: Performed By: #### C BC #### [facility] [address] [place] [address] Dr. Cleveland Snowden Glucose [Mass/Vol] 127 mg/dL Critically high 74-106 [facility] Comment on above: Performed By: #### C BC #### [facility] [address] [place] [address] Dr. Cleveland Snowden Potassium [Moles/Vol] 3.7 mmol/L Normal 3.5-5.1 [facility] Comment on above: Performed By: #### C BC #### [facility] [address] [place] [address] Dr. Cleveland Snowden Sodium [Moles/Vol] 145 mmol/L Normal 136-145 [facility] Comment on above: Performed By: #### C BC #### [facility] [address] [address] [address] Cleveland Snowden Urea nitrogen [Mass/Vol] 21.0 mg/dL Critically high 7.0-18.0 [facility] Comment on above: Performed By: #### C BC #### [facility] [address] [place] [address] Dr. Cleveland Snowden Urea nitrogen/Creatinine [Mass ratio] 27.6 mg/mg Normal [facility] Comment on above: Performed By: #### C BC #### [facility] [address] [place] [address] Dr. Cleveland Snowden PROTIMEon 01-08-2023 INR Coag (PPP) [Relative time] 1.04 {INR} Normal [facility] Comment on above: Performed By: #### P T, PTT #### [facility] [address] [place] [address] Dr. Cleveland Snowden INR GUIDELINES SEE BELOW Normal [facility] Comment on above: Result Comment: ASHTYN RED INR: 2.0 - 3.0 CONDITIONS NOT LISTED BELOW 2.5 - 3.5 FOR PROSTHETIC HEART VALVE REPLACEMENT 2.5 - 3.5 RECURRENT THROMBOSIS Performed By: #### P T, PTT #### [facility] [address] [place] [address] Dr. Cleveland Snowden PT Coag (PPP) [Time] 11.0 s Normal 9.0-11.6 [facility] Comment on above: Performed By: #### P T, PTT #### [facility] [address] [place] [address] Dr. Cleveland Snowden PTTon 01-08-2023 aPTT Coag (Bld) [Time] 29.6 s Normal 22.3-36.2 [facility] Comment on above: Performed By: #### P T, PTT #### [facility] [address] [place] [address] Dr. Cleveland Snowden XR KUB 1 VIEWon [...] TALI [place] Date: 2023-01-01 16:46 Normal [facility] GLYCOHEMOGLOBIN A1Con 2022 ADA RECOMMENDATION SEE BELOW Normal [facility] Comment on above: Result Comment: ADA RECOMMENDED LIMIT 4.0 - 6.0 ADA THERAPEUTIC TARGET < 7.0 ACTION SUGGESTED > 7.0 Performed By: #### A 1C #### [facility] [address] [address] [address] Cleveland Snowden Glucose [Mass/Vol] 126 mg/dL Normal [facility] Comment on above: Performed By: #### A 1C #### [facility] [address] [address] [address] Cleveland Snowden HbA1c (Bld) [Mass fraction] 6.0 % Normal 4.5-6.2 [facility] Comment on above: Performed By: #### A 1C #### [facility] [address] [address] [address] Cleveland Snowden XR KUB 1 VIEWon [...] TALI [place] Date: 2022-09-09 15:01 Normal [facility] GLYCOHEMOGLOBIN A1Con 2021 ADA RECOMMENDATION SEE BELOW Normal [facility] Comment on above: Result Comment: ADA RECOMMENDED LIMIT 4.0 - 6.0 ADA THERAPEUTIC TARGET < 7.0 ACTION SUGGESTED > 7.0 Performed By: #### A 1C #### [facility] [address] [address] [address] Cleveland Snowden Glucose [Mass/Vol] 131 mg/dL Normal [facility] Comment on above: Performed By: #### A 1C #### [facility] [address] [address] [address] Cleveland Snowden HbA1c (Bld) [Mass fraction] 6.2 % Normal 4.5-6.2 [facility] Comment on above: Performed By: #### A 1C #### [facility] [address] [address] [address] Cleveland Snowden LIPID PROFILEon 08-06-2022 CHOL-HDL RATIO NORM SEE BELOW Normal [facility] Comment on above: Result Comment: 3.3 - 4.4 LOW RISK 4.4 - 7.1 AVERAGE RISK 7.1 - 11.0 MODERATE RISK >11.0 HIGH RISK Performed By: #### A 1C #### [facility] [address] [address] [address] Cleveland Snowden Cholesterol [Mass/Vol] 108 mg/dL Normal <=200 [facility] Comment on above: Performed By: #### A 1C #### [facility] [address] [address] [address] Cleveland Snowden Cholesterol in HDL [Mass/Vol] 36 mg/dL Critically low 40-60 [facility] Comment on above: Performed By: #### A 1C #### [facility] [address] [address] [address] Cleveland Snowden Cholesterol in LDL [Mass/Vol] 45.0 mg/dL Normal [facility] Comment on above: Performed By: #### A 1C #### [facility] [address] [address] [address] Cleveland Snowden Cholesterol.total/C holesterol in HDL [Mass ratio] 3.0 {ratio} Normal [facility] Comment on above: Performed By: #### A 1C #### [facility] [address] [address] [address] Cleveland Snowden HDL NORMAL > or = 60 mg/dl - LO W CARDIOVASCULAR RISK <40 mg/dl - HIGH CARDIOVASCULAR RISK Normal [facility] Comment on above: Performed By: #### A 1C #### [facility] [address] [address] [address] Cleveland Snowden LDL CALC NORMAL SEE BELOW Normal [facility] Comment on above: Result Comment: <100 mg/dl OPTIMAL 100 - 129 mg/dl NEAR OR ABOVE OPTIMAL 130 - 159 mg/dl BORDERLINE HIGH 160 - 189 mg/dl HIGH >190 mg/dl VERY HIGH Performed By: #### A 1C #### [facility] [address] [address] [address] Cleveland Snowden Triglyceride [Mass/Vol] 135 mg/dL Normal <=150 [facility] Comment on above: Performed By: #### A 1C #### [facility] [address] [address] [address] Cleveland Snowden VLDL CALC 27.0 mg/dL Normal [facility] Comment on above: Performed By: #### A 1C #### [facility] [address] [address] [address] Cleveland Snowden GLYCOHEMOGLOBIN A1Con 2021 ADA RECOMMENDATION SEE BELOW Normal [facility] Comment on above: Result Comment: ADA RECOMMENDED LIMIT 4.0 - 6.0 ADA THERAPEUTIC TARGET < 7.0 ACTION SUGGESTED > 7.0 Performed By: #### A 1C #### [facility] [address] [place] [address] Dr. Cleveland Snowden Glucose [Mass/Vol] 154 mg/dL Normal [facility] Comment on above: Performed By: #### A 1C #### [facility] [address] [place] [address] Dr. Cleveland Snowden HbA1c (Bld) [Mass fraction] 7.0 % Critically high 4.5-6.2 [facility] Comment on above: Performed By: #### A 1C #### [facility] [address] [place] [address] Dr. Cleveland Snowden LIPID PROFILEon 05-05-2022 CHOL-HDL RATIO NORM SEE BELOW Normal [facility] Comment on above: Result Comment: 3.3 - 4.4 LOW RISK 4.4 - 7.1 AVERAGE RISK 7.1 - 11.0 MODERATE RISK >11.0 HIGH RISK Performed By: #### P T, PTT #### [facility] [address] [place] [address] Dr. Cleveland Snowden Cholesterol [Mass/Vol] 104 mg/dL Normal <=200 [facility] Comment on above: Performed By: #### P T, PTT #### [facility] [address] [place] [address] Dr. Cleveland Snowden Cholesterol in HDL [Mass/Vol] 24 mg/dL Critically low 40-60 [facility] Comment on above: Performed By: #### P T, PTT #### [facility] [address] [address] [address] Cleveland Snowden Cholesterol in LDL [Mass/Vol] 28.0 mg/dL Normal [facility] Comment on above: Performed By: #### P T, PTT #### [facility] [address] [address] [address] Cleveland Snowden Cholesterol.total/C holesterol in HDL [Mass ratio] 4.3 {ratio} Normal [facility] Comment on above: Performed By: #### P T, PTT #### [facility] [address] [address] [address] Cleveland Snowden HDL NORMAL > or = 60 mg/dl - LO W CARDIOVASCULAR RISK <40 mg/dl - HIGH CARDIOVASCULAR RISK Normal [facility] Comment on above: Performed By: #### P T, PTT #### [facility] [address] [address] [address] Cleveland Snowden LDL CALC NORMAL SEE BELOW Normal [facility] Comment on above: Result Comment: <100 mg/dl OPTIMAL 100 - 129 mg/dl NEAR OR ABOVE OPTIMAL 130 - 159 mg/dl BORDERLINE HIGH 160 - 189 mg/dl HIGH >190 mg/dl VERY HIGH Performed By: #### P T, PTT #### [facility] [address] [address] [address] Cleveland Snowden Triglyceride [Mass/Vol] 260 mg/dL Critically high <=150 [facility] Comment on above: Performed By: #### P T, PTT #### [facility] [address] [address] [address] Cleveland Snowden VLDL CALC 52.0 mg/dL Normal [facility] Comment on above: Performed By: #### P T, PTT #### [facility] [address] [address] [address] Cleveland Snowden PROF 14(COMP METB)on 022 Albumin [Mass/Vol] 3.5 g/dL Normal 3.4-5.0 [facility] Comment on above: Performed By: #### P T, PTT #### [facility] [address] [address] [address] Cleveland Snowden Albumin/Globulin [Mass ratio] 1.1 {ratio} Normal [facility] Comment on above: Performed By: #### P T, PTT #### [facility] [address] [address] [address] Cleveland Snowden ALP [Catalytic activity/Vol] 59 U/L Normal 46-116 [facility] Comment on above: Performed By: #### P T, PTT #### [facility] [address] [address] [address] Cleveland Snowden ALT [Catalytic activity/Vol] 46 U/L Normal 16-63 [facility] Comment on above: Performed By: #### P T, PTT #### [facility] [address] [address] [address] Cleveland Snowden Anion gap [Moles/Vol] 14.7 mmol/L Normal [facility] Comment on above: Performed By: #### P T, PTT #### [facility] [address] [address] [address] Cleveland Snowden AST [Catalytic activity/Vol] 46 U/L Critically high 15-37 [facility] Comment on above: Performed By: #### P T, PTT #### [facility] [address] [address] [address] Cleveland Snowden Bilirubin [Mass/Vol] 0.5 mg/dL Normal 0.2-1.0 [facility] Comment on above: Performed By: #### P T, PTT #### [facility] [address] [address] [address] Cleveland Snowden Calcium [Mass/Vol] 9.5 mg/dL Normal 8.5-10.1 [facility] Comment on above: Performed By: #### P T, PTT #### [facility] [address] [address] [address] Cleveland Snowden Chloride [Moles/Vol] 103 mmol/L Normal 98-107 [facility] Comment on above: Performed By: #### P T, PTT #### [facility] [address] [address] [address] Cleveland Snowden CO2 [Moles/Vol] 28.1 mmol/L Normal 21.0-32.0 [facility] Comment on above: Performed By: #### P T, PTT #### [facility] [address] [address] [address] Cleveland Snowden Creatinine [Mass/Vol] 0.84 mg/dL Normal 0.70-1.30 [facility] Comment on above: Performed By: #### P T, PTT #### [facility] [address] [address] [address] Cleveland Snowden EGFR-AF KAZAKH >60 Normal >=60 [facility] Comment on above: Performed By: #### P T, PTT #### [facility] [address] [address] [address] [place] Snowden EGFR-NON AF KAZAKH >60 Normal >=60 [facility] Comment on above: Performed By: #### P T, PTT #### [facility] [address] [address] [address] Cleveland Snowden Globulin (S) [Mass/Vol] 3.1 g/dL Normal [facility] Comment on above: Performed By: #### P T, PTT #### [facility] [address] [address] [address] Cleveland Snowden Glucose [Mass/Vol] 176 mg/dL Critically high 74-106 [facility] Comment on above: Performed By: #### P T, PTT #### [facility] [address] [address] [address] Cleveland Snowden Potassium [Moles/Vol] 3.8 mmol/L Normal 3.5-5.1 [facility] Comment on above: Performed By: #### P T, PTT #### [facility] [address] [address] [address] Cleveland Snowden Protein [Mass/Vol] 6.6 g/dL Normal 6.4-8.2 [facility] Comment on above: Performed By: #### P T, PTT #### [facility] [address] [address] [address] Cleveland Snowden Sodium [Moles/Vol] 142 mmol/L Normal 136-145 [facility] Comment on above: Performed By: #### P T, PTT #### [facility] [address] [address] [address] Cleveland Snowden Urea nitrogen [Mass/Vol] 24.0 mg/dL Critically high 7.0-18.0 [facility] Comment on above: Performed By: #### P T, PTT #### [facility] [address] [address] [address] Cleveland Snowden Urea nitrogen/Creatinine [Mass ratio] 28.6 mg/mg Normal [facility] Comment on above: Performed By: #### P T, PTT #### [facility] [address] [address] [address] Cleveland Snowden URIC ACID SERUMon 05-05-2022 Urate [Mass/Vol] 6.2 mg/dL Normal 3.5-7.2 [facility] Comment on above: Performed By: #### P T, PTT #### [facility] [address] [address] [address] Cleveland [place] Basophils Auto (Bld) [#/Vol] on 04-03-2021 Basophils (Bld) [#/Vol] 0.0 10*3/uL 0.0-0.2 [facility] Basophils/100 WBC Auto (Bld) on 04-03-2021 Basophils/100 WBC (Bld) 0.6 % [facility] Blood hemoglobin measurement (mass/volume)on 04-03-2021 Hemoglobin (Bld) [Mass/Vol] 12.2 g/dL 13.0-17.0 [facility] Blood leukocytes automated c ount (number/volume)on 04-03-2021 WBC (Bld) [#/Vol] 4.7 10*3/uL 4.5-11.0 [facility] Creatinine and Glomerular fi ltration rate.predicted panel (S/P/Bld)on 04-03-2021 Creatinine [Mass/Vol] 0.68 mg/dL 0.64-1.27 [facility] Eosinophils Auto (Bld) [#/Vo l]on 04-03-2021 Eosinophils (Bld) [#/Vol] 0.1 10*3/uL 0.0-0.45 [facility] Eosinophils/100 WBC Auto (Bl d)on 04-03-2021 Eosinophils/100 WBC (Bld) 3.1 % [facility] Erythrocyte distribution wid th Auto (RBC) [Ratio]on 04-03-2021 Erythrocyte distribution width (RBC) [Ratio] 15.0 % 12.0-14.8 [facility] Estimated glomerular filtrat ion rate (GFR) non- Americanon 04-03-2021 GFR/1.73 sq M.predicted among non-blacks MDRD (S/P/Bld) [Vol rate/Area] > 60 mL/Min [facility] Hematocrit Auto (Bld) [Volum e fraction]on 04-03-2021 Hematocrit (Bld) [Volume fraction] 36.2 % 38.8-50.0 [facility] Laboratory - Hematology and Cell countson 04-03-2021 Nucleated RBC/100 WBC (Bld) [Ratio] 0.2 % 0-0.5 [facility] Lymphocytes Auto (Bld) [#/Vo l]on 04-03-2021 Lymphocytes (Bld) [#/Vol] 0.7 10*3/uL 1.00-4.8 [facility] Lymphocytes/100 WBC Auto (Bl d)on 04-03-2021 Lymphocytes/100 WBC (Bld) 14.5 % [facility] MCH Auto (RBC) [Entitic mass ]on 04-03-2021 MCH (RBC) [Entitic mass] 31.3 pg 27.5-35.2 [facility] MCHC Auto (RBC) [Mass/Vol]on 04-03-2021 MCHC (RBC) [Mass/Vol] 33.8 g/dL 32.5-35.6 [facility] MCV Auto (RBC) [Entitic vol] on 04-03-2021 MCV (RBC) [Entitic vol] 92.6 fL 83.5-101 [facility] Monocytes Auto (Bld) [#/Vol] on 04-03-2021 Monocytes (Bld) [#/Vol] 0.5 10*3/uL 0.0-0.8 [facility] Monocytes/100 WBC Auto (Bld) on 04-03-2021 Monocytes/100 WBC (Bld) 10.7 % [facility] Neutrophils Auto (Bld) [#/Vo l]on 04-03-2021 Neutrophils (Bld) [#/Vol] 3.3 10*3/uL 1.8-7.7 [facility] Neutrophils/100 WBC Auto (Bl d)on 04-03-2021 Neutrophils/100 WBC (Bld) 71.1 % [facility] No Panel Informationon 04-03 Estimated GFR () > 60 mL/Min [facility] Comment on above: GFR estimated refere nce range: According to KDOQI guidelines, <60 ml/min/1.73m2 is sufficient to diagnose a patient with chronic kidney disease. Pharmacy Creatinine Clearance (Chem N/A [facility] Platelet mean volume Auto (B ld) [Entitic vol]on 04-03-2021 Platelet mean volume (Bld) [Entitic vol] 8.5 fL 6.6-10.1 [facility] Platelets Auto (Bld) [#/Vol] on 04-03-2021 Platelets (Bld) [#/Vol] 137 10*3/uL 150-450 [facility] RBC Auto (Bld) [#/Vol]on RBC (Bld) [#/Vol] 3.91 10*6/uL 3.90-5.60 [facility] Serum or plasma calcium edu urement (mass/volume)on 04-03-2021 Calcium [Mass/Vol] 9.8 mg/dL 8.2-10.2 [facility] Serum or plasma chloride merlyn surement (moles/volume)on 04-03-2021 Chloride [Moles/Vol] 100 mmol/L 95-114 [facility] Serum or plasma glucose edu urement (mass/volume)on 04-03-2021 Glucose [Mass/Vol] 184 mg/dL 70-100 [facility] Comment on above: ADA recommended refe rence rangeRandom Glucose Reference Range is dependent on time and content of last meal. Glucose of more than 200 mg/dL in a nonstressed, ambulatory subject supports the diagnosis of Diabetes Mellitus. Serum or plasma potassium me asurement (moles/volume)on 04-03-2021 Potassium [Moles/Vol] 3.6 mmol/L 3.5-5.1 [facility] Serum or plasma sodium measu rement (moles/volume)on 04-03-2021 Sodium [Moles/Vol] 138 mmol/L 136-146 [facility] Serum or plasma total carbon dioxide measurement (moles/volume)on 04-03-2021 CO2 [Moles/Vol] 26.3 mmol/L 22.0-30.0 [facility] Serum or plasma urea nitroge n measurement (mass/volume)on 04-03-2021 Urea nitrogen [Mass/Vol] 17 mg/dL 9-23 [facility] Basophils Auto (Bld) [#/Vol] on 02-11-2021 Basophils (Bld) [#/Vol] 0.0 10*3/uL 0.0-0.2 [facility] Basophils/100 WBC Auto (Bld) on 02-11-2021 Basophils/100 WBC (Bld) 0.6 % [facility] Blood hemoglobin measurement (mass/volume)on 02-11-2021 Hemoglobin (Bld) [Mass/Vol] 12.6 g/dL 13.0-17.0 [facility] Blood leukocytes automated c ount (number/volume)on 02-11-2021 WBC (Bld) [#/Vol] 4.4 10*3/uL 4.5-11.0 [facility] Eosinophils Auto (Bld) [#/Vo l]on 02-11-2021 Eosinophils (Bld) [#/Vol] 0.2 10*3/uL 0.0-0.45 [facility] Eosinophils/100 WBC Auto (Bl d)on 02-11-2021 Eosinophils/100 WBC (Bld) 3.8 % [facility] Erythrocyte distribution wid th Auto (RBC) [Ratio]on 02-11-2021 Erythrocyte distribution width (RBC) [Ratio] 14.9 % 12.0-14.8 [facility] Hematocrit Auto (Bld) [Volum e fraction]on 02-11-2021 Hematocrit (Bld) [Volume fraction] 36.1 % 38.8-50.0 [facility] Laboratory - Hematology and Cell countson 02-11-2021 Nucleated RBC/100 WBC (Bld) [Ratio] 0.1 % 0-0.5 [facility] Lymphocytes Auto (Bld) [#/Vo l]on 02-11-2021 Lymphocytes (Bld) [#/Vol] 0.7 10*3/uL 1.00-4.8 [facility] Lymphocytes/100 WBC Auto (Bl d)on 02-11-2021 Lymphocytes/100 WBC (Bld) 15.4 % [facility] MCH Auto (RBC) [Entitic mass ]on 02-11-2021 MCH (RBC) [Entitic mass] 32.5 pg 27.5-35.2 [facility] MCHC Auto (RBC) [Mass/Vol]on 02-11-2021 MCHC (RBC) [Mass/Vol] 34.8 g/dL 32.5-35.6 [facility] MCV Auto (RBC) [Entitic vol] on 02-11-2021 MCV (RBC) [Entitic vol] 93.3 fL 83.5-101 [facility] Monocytes Auto (Bld) [#/Vol] on 02-11-2021 Monocytes (Bld) [#/Vol] 0.5 10*3/uL 0.0-0.8 [facility] Monocytes/100 WBC Auto (Bld) on 02-11-2021 Monocytes/100 WBC (Bld) 12.1 % [facility] Neutrophils Auto (Bld) [#/Vo l]on 02-11-2021 Neutrophils (Bld) [#/Vol] 3.0 10*3/uL 1.8-7.7 [facility] Neutrophils/100 WBC Auto (Bl d)on 02-11-2021 Neutrophils/100 WBC (Bld) 68.1 % [facility] Platelet mean volume Auto (B ld) [Entitic vol]on 02-11-2021 Platelet mean volume (Bld) [Entitic vol] 8.2 fL 6.6-10.1 [facility] Platelets Auto (Bld) [#/Vol] on 02-11-2021 Platelets (Bld) [#/Vol] 118 10*3/uL 150-450 [facility] RBC Auto (Bld) [#/Vol]on RBC (Bld) [#/Vol] 3.87 10*6/uL 3.90-5.60 [facility] Creatinine (Bld) [Mass/Vol]o n 01-10-2021 Creatinine [Mass/Vol] 0.7 mg/dL 0.6-1.3 [facility] Comment on above: ER/ESD physician is notified/shown all ISTAT results.Critical values may be confirmed by laboratory testing ifdeemed necessary by ER attending doctor. No Panel Informationon 01-10 POC Estimated GFR > 60 [facility] Comment on above: GFR estimated refere nce range: According to KDOQI guidelines, <60 ml/min/1.73m2 is sufficient to diagnose a patient with chronic kidney disease. POC Estimated GFR Non- Amer > 60 [facility] Vital Signs Date Time Vital Sign Value Performing Clinician Facility 05-07-2025 11:04-0400 Body height 185.4 cm Khoa Bowles MD Work Phone: [facility] 05-07-2025 11:04-0400 Body mass index (BMI) [Ratio] 37.07 kg/m2 Khoa Bowles MD Work Phone: [facility] 05-07-2025 11:04-0400 Body weight 127.46 kg Khoa Bowles MD Work Phone: [facility] 05-07-2025 11:04-0400 Diastolic blood pressure 68 mm[Hg] Khoa Bowles MD Work Phone: [facility] 05-07-2025 11:04-0400 Heart rate 71 /min Khoa Bowles MD Work Phone: [facility] 05-07-2025 11:04-0400 SaO2% (BldA) [Mass fraction] 96 % Khoa Bowles MD Work Phone: [facility] 05-07-2025 11:04-0400 Systolic blood pressure 120 mm[Hg] Khoa Bowles MD Work Phone: [facility] 04-26-2025 14:48-0400 Body height 185.4 cm Khoa Bowles MD Work Phone: [facility] 04-26-2025 14:48-0400 Body mass index (BMI) [Ratio] 37.07 kg/m2 Khoa Bowles MD Work Phone: [facility] 04-26-2025 14:48-0400 Body weight 127.46 kg Khoa Bowles MD Work Phone: [facility] 04-26-2025 14:48-0400 Diastolic blood pressure 70 mm[Hg] Khoa Bowles MD Work Phone: [facility] 04-26-2025 14:48-0400 Heart rate 68 /min Khoa Bowles MD Work Phone: [facility] 04-26-2025 14:48-0400 SaO2% (BldA) [Mass fraction] 97 % Khoa Bowles MD Work Phone: [facility] 04-26-2025 14:48-0400 Systolic blood pressure 124 mm[Hg] Khoa Bowles MD Work Phone: [facility] 04-05-2025 13:00-0400 Body height 185.4 cm Tiffanie Enrique DPM Work Phone: [facility] 04-05-2025 13:00-0400 Body mass index (BMI) [Ratio] 37.07 kg/m2 Tiffanie Enrique DPM Work Phone: [facility] 04-05-2025 13:00-0400 Body weight 127.46 kg Tiffanie Enrique DPM Work Phone: [facility] 02-20-2025 07:40-0400 Body height 185.4 cm Edward Hemeyer MD Work Phone: [facility] 02-20-2025 07:40-0400 Body mass index (BMI) [Ratio] 37.07 kg/m2 Khoa Bowles MD Work Phone: [facility] 02-20-2025 07:40-0400 Body weight 127.46 kg Khoa Bowles MD Work Phone: [facility] 12-28-2024 13:48-0500 Body height 185.4 cm Tiffanie Enrique DPM Work Phone: [facility] 12-28-2024 13:48-0500 Body mass index (BMI) [Ratio] 37.07 kg/m2 Tiffanie Enrique DPM Work Phone: [facility] 12-28-2024 13:48-0500 Body weight 127.46 kg Tiffanie Enrique DPM Work Phone: [facility] 12-18-2024 10:47-0500 Blood Pressure Location [place] [facility] 12-18-2024 10:47-0500 Body temperature 98.6 [degF] [place] [facility] 12-18-2024 10:47-0500 Diastolic blood pressure 71 mm[Hg] [place] [facility] 12-18-2024 10:47-0500 Heart rate 62 /min [place] [facility] 12-18-2024 10:47-0500 Respiratory rate 16 /min [place] [facility] 12-18-2024 10:47-0500 Systolic blood pressure 124 mm[Hg] [place] [facility] 09-14-2024 14:55-0500 Body height 185.4 cm Tiffanie Enrique DPM Work Phone: [facility] 09-14-2024 14:55-0500 Body mass index (BMI) [Ratio] 37.07 kg/m2 Tiffanie Enrique DPM Work Phone: [facility] 09-14-2024 14:55-0500 Body weight 127.46 kg Tiffanie Enrique DPM Work Phone: [facility] 09-04-2024 13:06-0500 Blood Pressure Location [place] [facility] 09-04-2024 13:06-0500 Diastolic blood pressure 71 mm[Hg] [place] [facility] 09-04-2024 13:06-0500 Heart rate 58 /min [place] [facility] 09-04-2024 13:06-0500 Respiratory rate 18 /min [place] [facility] 09-04-2024 13:06-0500 Systolic blood pressure 130 mm[Hg] [place] [facility] 08-08-2024 12:34-0400 Body height 185.4 cm Yaquelin MULLINS Work Phone: [facility] 08-08-2024 12:34-0400 Body mass index (BMI) [Ratio] 37.07 kg/m2 Yaquelin MULLINS Work Phone: [facility] 08-08-2024 12:34-0400 Body weight 127.46 kg Yaquelin MULLINS Work Phone: [facility] 08-08-2024 12:34-0400 Diastolic blood pressure 84 mm[Hg] Yaquelin Hill PA Work Phone: [facility] 08-08-2024 12:34-0400 Heart rate 52 /min Yaquelin Hampton PA Work Phone: [facility] 08-08-2024 12:34-0400 Respiratory rate 16 /min Yaquelin Hampton PA Work Phone: [facility] 08-08-2024 12:34-0400 SaO2% (BldA) [Mass fraction] 99 % Yaquelin Hampton PA Work Phone: [facility] 08-08-2024 12:34-0400 Systolic blood pressure 130 mm[Hg] Yaquelin Hampton PA Work Phone: [facility] 07-26-2024 15:43-0400 Body height 185.4 cm Yumikoelian Wellsr [employer] Work Phone: [facility] 07-26-2024 15:43-0400 Body mass index (BMI) [Ratio] 37.34 kg/m2 Yumiko Lyricmor [employer] Work Phone: [facility] 07-26-2024 15:43-0400 Body weight 128.37 kg Yumiko Gillmor [employer] Work Phone: [facility] 07-26-2024 15:43-0400 Diastolic blood pressure 80 mm[Hg] Yumiko Gillmor [employer] Work Phone: [facility] 07-26-2024 15:43-0400 Heart rate 69 /min Yumiko Lyricmor [employer] Work Phone: [facility] 07-26-2024 15:43-0400 SaO2% (BldA) [Mass fraction] 97 % Yumiko Gillmor [employer] Work Phone: [facility] 07-26-2024 15:43-0400 Systolic blood pressure 132 mm[Hg] Yumiko Gillmor [employer] Work Phone: [facility] 12-09-2023 11:01-0500 Body height 190.5 cm Tiffanie DAMONM Work Phone: [facility] 12-09-2023 11:01-0500 Body mass index (BMI) [Ratio] 36.87 kg/m2 Tiffanie Enrique DPM Work Phone: [facility] 12-09-2023 11:01-0500 Body weight 133.81 kg Tiffanie Enrique DPM Work Phone: [facility] 07-21-2023 13:32-0400 Blood Pressure Location [place] [facility] 07-21-2023 13:32-0400 Diastolic blood pressure 64 mm[Hg] [place] [facility] 07-21-2023 13:32-0400 Heart rate 54 /min [place] [facility] 07-21-2023 13:32-0400 Systolic blood pressure 117 mm[Hg] [place] [facility] 01-05-2023 10:47-0500 Blood Pressure Location [place] [facility] 01-05-2023 10:47-0500 Diastolic blood pressure 93 mm[Hg] [place] [facility] 01-05-2023 10:47-0500 Heart rate 58 /min [place] [facility] 01-05-2023 10:47-0500 Systolic blood pressure 152 mm[Hg] [place] [facility] Encounters Encounter Date Encounter Type Care Provider Facility Start: 06-11-2025 ambulatory [place] Facili ty:[facility] Start: 05-22-2025 ambulatory [place] Facili ty:[id number] Start: 05-07-2025 End: 05-07-2025 Bamboo flowsheet Khoa Bowles MD Work Phone: [facility] Start: 05-07-2025 End: 05-07-2025 Bamboo flowsheet Khoa Bowles MD Work Phone: [facility] Start: 05-07-2025 End: 05-07-2025 Patient encounter procedure Khoa Bowles MD Work Phone: [facility] Comment on above: Encounter for Medica re annual wellness exam (Primary Dx); Advance directive [...] mellitus with foot ulcer (CODE) (HCC); Thrombocytopenia Start: 05-07-2025 End: 05-07-2025 ambulatory KHOA BOWLES Not Available Start: 04-26-2025 End: 04-26-2025 Office outpatient visit 25 minutes Khoa Bowles MD Work Phone: [facility] Comment on above: Primary hypertension ; Mixed hyperlipidemia ; Hyperuricemia; Microalbuminuria; Type 2 diabetes mellitus with diabetic microalbuminuria, with long-term current use of insulin (HCC); Type 2 diabetes mellitus with diabetic polyneuropathy, with long-term current use of insulin (HCC); Diabetic neuropathic arthropathy (HCC); Lymphedema of both lower extremities; Chronic cellulitis; Polypharmacy; Morbid obesity due to excess calories (CMS-HCC) Start: 04-26-2025 End: 04-26-2025 ambulatory KHOA BOWLES Not Available Start: 04-24-2025 End: 04-24-2025 Clinisync Result Encounter Khoa Bowles MD Work Phone: [facility] Unsolicited Start: 04-24-2025 End: 04-24-2025 Clinisync Result Encounter Khoa Bowles MD Work Phone: [facility] Unsolicited Start: 04-23-2025 End: 04-23-2025 ambulatory Khoa Bowles Facility:[facility] Start: 04-05-2025 End: 04-05-2025 Bamboo flowsheet Tiffanie Enrique DPM Work Phone: [facility] Start: 04-05-2025 End: 04-05-2025 Bamboo flowsheet Tiffanie Enrique DPM Work Phone: [facility] Start: 04-05-2025 End: 04-05-2025 Patient encounter procedure Tiffanie Enrique DPM Work Phone: 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, not 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) (CMS/HCC) (Primary Dx); Onychomycosis; Acquired keratoderma; Callus Start: 04-05-2025 End: 04-05-2025 ambulatory TIFFANIE ENRIQUE Not Available Start: 04-02-2025 End: 04-02-2025 ambulatory [place] Facility:[facility] Start: 04-02-2025 End: 04-02-2025 Patient encounter procedure [place] [facility] Start: 03-15-2025 End: 03-15-2025 Clinisync Result Encounter Generic External Data Provider [facility] Unsolicited Start: 03-15-2025 End: 03-15-2025 Clinisync Result Encounter Generic External Data Provider [facility] Unsolicited Start: 02-20-2025 End: 02-20-2025 Lionelboo flowsheet Khoa Bowles MD Work Phone: [facility] Start: 02-20-2025 End: 02-20-2025 Keegano flowsheet Khoa Bowles MD Work Phone: [facility] [...] [facility] Comment on above: Other alf (cur rent) drug therapy Start: 12-28-2024 End: 12-28-2024 Bamboo flowsheet Tiffanie Enrique DPM Work Phone: [facility] Start: 12-28-2024 End: 12-28-2024 Bamboo flowsheet Tiffanie Enrique DPM Work Phone: [facility] Start: 12-28-2024 End: 12-28-2024 Patient encounter procedure Tiffanie Enrique DPM Work Phone: 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) (Primary Dx); Onychomycosis; Acquired keratoderma Start: 12-28-2024 End: 12-28-2024 ambulatory TIFFANIE ENRIQUE Not Available Start: 12-18-2024 End: 12-18-2024 ambulatory [place] Facility:[facility] Start: 12-18-2024 End: 12-18-2024 Patient encounter procedure [place] [facility] Start: 12-13-2024 End: 12-14-2024 Refill Khoa Bowles MD Work Phone: [facility] Comment on above: Type 2 diabetes nishant itus with hyperglycemia, without long-term current use of insulin (CMS/[facility]) Start: 11-11-2024 End: 11-14-2024 Refill Khoa Bowles [...] 09-14-2024 End: 09-14-2024 Patient encounter procedure Tiffanie DAMONM Work Phone: 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 Start: 09-14-2024 End: 09-14-2024 Bamboo flowsheet Tiffanie Enrique DPM Work Phone: [facility] Start: 09-04-2024 End: 09-04-2024 ambulatory [place] Facility:[facility] Start: 09-04-2024 End: 09-04-2024 Patient encounter procedure [place] [facility] Start: 08-31-2024 End: 08-31-2024 Clinisync [...] Office outpatient visit 25 minutes Yumiko Guzmán [employer] Work Phone: [facility] Comment on above: Obstructive sleep ap rohith syndrome (Primary Dx); Snoring; Obesity (BMI 30-39.9); Hypersomnia Start: 07-26-2024 End: 07-26-2024 ambulatory YUMIKO GUZMÁN Not Available Start: 07-26-2024 End: 07-26-2024 Bamboo flowsheet Yumiko Gilloscarr [employer] [facility] Start: 07-26-2024 End: 07-26-2024 Bamboo flowsheet Yumiko Gillmor [employer] [facility] Start: 07-26-2024 End: 07-26-2024 ambulatory [place] Facility:[facility] Start: 07-26-2024 End: 07-26-2024 Patient encounter procedure [place] [facility] Start: 07-24-2024 End: 07-24-2024 Telephone encounter Khoa Bowles MD Work Phone: [place] [phone] Comment on above: Care Coordination Start: 06-15-2024 End: 06-15-2024 ambulatory TIFFANIE ENRIQUE Not Available Start: 05-29-2024 End: 05-29-2024 ambulatory [facility] Start: 05-18-2024 End: 05-18-2024 ambulatory [facility] Start: 05-15-2024 End: 05-15-2024 ambulatory [facility] Start: 2024 ambulatory KHOA BOWLES [facility] Start: 03-09-2024 End: 03-09-2024 ambulatory [facility] Start: 12-09-2023 End: 12-09-2023 Patient encounter procedure Tiffanie Enrique DPM Work Phone: 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) (Primary Dx); Onychomycosis; Hallux limitus, left; Acquired keratoderma Start: 08-05-2023 End: 08-05-2023 ambulatory MD Khoa Bowles Work Phone: [facility] Work Phone: Start: 08-05-2023 End: 08-05-2023 Patient encounter procedure MD Khoa Bowles Work Phone: [facility] [address] Work Phone: Start: 07-21-2023 End: 07-21-2023 Patient encounter procedure [place] [facility] Start: 07-16-[address] KHOA CASILLAS . Facility:[facility] Start: 02-04-2023 End: 02-05-[address] [place] . Facility:[facility] Start: 01-14-2023 End: 01-14-[address] [place] . Facility:[facility] Start: 01-12-2023 Encounter for other preprocedural examination DR [place] . [facility] Start: 01-12-2023 Encounter for prepro cedural cardiovascular examination DR [place] . [facility] Start: 01-12-2023 Encounter for prepro cedural laboratory examination DR [place] . [facility] Start: 01-08-2023 End: 01-09-[address] [place] . Facility:[facility] Start: 01-08-2023 End: 01-09-2023 Encounter for preprocedural laboratory examination DR [place] . Facility:[facility] Start: 01-05-2023 End: 01-05-2023 Patient encounter procedure [place] [facility] Start: 12-31-2022 End: 01-01-[address] KHOA BOWLES . Facility:[facility] Start: 11-02-[address] KHOA CASILLAS . Facility:[facility] Start: 09-21-2022 End: 09-21-2022 Patient encounter procedure [place] [facility] Start: 09-09-2022 End: 09-10-[address] [place] . Facility:[facility] Start: 08-06-2022 End: 08-07-[address] KHOA BOWLES . Facility:[facility] Start: 05-05-2022 End: 05-06-[address] KHOA BOWLES . Facility:[facility] Start: 04-03-2021 End: 04-03-2021 Patient encounter procedure Khoa Bowles Work Phone: -Pre-Surgical Testing Start: 02-11-2021 End: 02-11-2021 Patient encounter procedure Khoa Bowles Work Phone: -[facility] [place] Start: 01-10-2021 End: 01-10-2021 Patient encounter procedure Khoa Bowles Work Phone: -[facility] [address] Procedures Date Procedure Procedure Detail Performing Clinician Start: 04-24-2025 MLR HEMOGLOBIN A1C Franklyn Bowles MD Work Phone: Start: 04-24-2025 [facility] MICROALB CREAT R ATIO RANDOM Khoa Bowles MD Work Phone: Start: 03-15-2025 MHPT PSA, DIAGNOSTIC Ge neric External Data Provider Start: 10-26-2024 [facility] CMP (CMP) (FOR [facility] USE) Khoa Bowles MD Work Phone: Start: 08-31-2024 MHPT PSA, DIAGNOSTIC Ge neric External Data Provider Start: 08-05-2023 XR pre/post mri xrzoila Bowles Work Phone: Start: 08-05-2023 MR lumbar spine wo con MD Khoa Bowles Work Phone: Start: 01-14-2023 Extracorporeal shock wave lithotripsy of calculus of kidney [place] Start: 12-31-[address] [place] . Comment on above: Performed By: #### P T, PTT #### [facility] [address] [address] [address] [place] Snowden Start: 09-09-[address] [place] . Comment on above: Performed By: #### P SAD #### [facility] [address] [address] [address] [place] Snowden Start: 01-10-2021 MRI of lumbar spine with contrast Khoa Bowles Work Phone: Start: 01-10-2021 X-ray of lumbar spin e, four views Khoa Bowles Work Phone: Start: 06-17-2016 Colonoscopy Tiffanie ribeiro DPM Work Phone: Start: 04-30-2015 Cystoscopy [place]A REESE Start: 02-21-2014 Removal of calculus of [...] 07-01-2004 Cystoscopic removal of ureteric stent [place] Start: 06-24-2004 Cystoscopic extracti on of ureteric calculus without disintegration [place] Ankle region structu re (body structure) [place] [...] Treatment Date Care Activity Detail Author Start: 02-27-2027 Glaucoma screening Diabetes: R etinopathy Screening [facility] Start: 06-17-2026 Screening for malign ant neoplasm of colon [facility] Start: 05-07-2026 Medicare Annual Wellness (AWV) Medicare Annual Wellness (AWV) [facility] Start: 04-24-2026 Urine screening for protein Diabetes: Urine Protein Screening [facility] Start: 02-24-2026 Glaucoma screening Diabetes: R etinopathy Screening [facility] Start: 10-24-2025 Hemoglobin A1c measurement Diabetes: Hemoglobin A1C [facility] Start: 10-22-2025 End: 10-22-2025 Patient encounter procedure 10/22/2025 2:30 PM EST Office Visit [facility] [address] [place] [address] Khoa Bowles MD [address] [place] [address] (Fax) [facility] Start: 09-26-2025 End: 04-26-2026 Comprehensive metabolic 2000 panel - Serum or Plasma Comprehensive metabolic panel Lab Routine Primary hypertension Type 2 diabetes mellitus with diabetic microalbuminuria, with long-term current use of insulin (HCC) Type 2 diabetes mellitus with diabetic polyneuropathy, with long-term current use of insulin (HCC) Diabetic neuropathic arthropathy (HCC) Expected: 09/26/2025 (Approximate), Expires: 04/26/2026 [facility] Work Phone: Comment on above: Expected: 09/26/2025 (Approximate), Expires: 04/26/2026 Start: 09-26-2025 End: 04-26-2026 Hemoglobin A1c/Hemoglobin.total in Blood Hemoglobin A1c Lab Routine Type 2 diabetes mellitus with diabetic microalbuminuria, with long-term current use of insulin (HCC) Type 2 diabetes mellitus with diabetic polyneuropathy, with long-term current use of insulin (HCC) Diabetic neuropathic arthropathy (HCC) Expected: 09/26/2025 (Approximate), Expires: 04/26/2026 [facility] Comment on above: Expected: 09/26/2025 (Approximate), Expires: 04/26/2026 Start: 09-26-2025 End: 04-26-2026 Lipid 1996 panel - Serum or Plasma Lipid panel Lab Routine Primary hypertension Mixed hyperlipidemia Expected: 09/26/2025 (Approximate), Expires: 04/26/2026 [facility] Comment on above: Expected: 09/26/2025 (Approximate), Expires: 04/26/2026 Start: 09-26-2025 End: 04-26-2026 Urate [Mass/volume] in Serum or Plasma Uric acid Lab Routine Hyperuricemia Expected: 09/26/2025 (Approximate), Expires: 04/26/2026 [facility] Comment on above: Expected: 09/26/2025 (Approximate), Expires: 04/26/2026 Start: 07-24-2025 End: 07-24-2025 Patient encounter procedure [facility] Start: 07-12-2025 End: 07-12-2025 Patient encounter procedure 07/12/2025 1:00 PM EDT Procedure Visit [facility] [address] [facility] [place] [id number] Tiffanie Enrique, DPM [address] [place] [address] [facility] Start: 07-02-2025 Influenza vaccination Influenza Vacc ine (#1) [facility] Start: 05-07-2025 End: 05-07-2025 Patient encounter procedure [facility] Comment on above: Encounter for Medica re annual wellness exam; Advance directive in chart; Encounter for screening for other disorder; Screening for alcohol problem Start: 04-26-2025 End: 04-26-2025 Patient encounter procedure 04/26/2025 3:00 PM EDT Office Visit [facility] [address] [place] [address] Khoa Bowles MD [address] [place] [address] (Fax) [facility] Start: 04-26-2025 Hemoglobin A1c measurement Diabetes: Hemoglobin A1C [facility] Start: 04-24-2025 End: 04-24-2025 Patient encounter procedure [facility] Start: 04-05-2025 End: 04-05-2025 Patient encounter procedure [facility] Comment on above: Arrived Start: 04-03-2025 Medicare Annual Wellness (AWV) Medicare Annual Wellness (AWV) [facility] Start: 02-20-2025 End: 02-20-2025 Patient encounter procedure 02/20/2025 8:00 AM EDT Office Visit [facility] [address] [place] [address] Khoa Bowles MD [address] [place] [address] (Fax) Encounter for examination following treatment at hospital [facility] Comment on above: Encounter for examin ation following treatment at hospital Start: 01-22-2025 End: 01-22-2025 Patient encounter procedure [facility] Start: 12-28-2024 End: 12-28-2024 Patient encounter procedure [facility] Comment on above: Arrived Start: 10-31-2024 End: 10-31-2024 Patient encounter procedure [facility] Comment on above: Arrived Start: 09-14-2024 End: 09-14-2024 Patient encounter procedure 09/14/2024 3:00 PM EST Procedure Visit [facility] [address] [place] [address] Tiffanie Enrique, FA[address] [place] [address] [facility] Start: 08-08-2024 End: 08-08-2024 Patient encounter procedure [facility] Comment on above: Arrived Start: 07-26-2024 End: 07-26-2024 Patient encounter procedure [facility] [address] [facility] Comment on above: Arrived Start: 07-02-2024 Influenza vaccination Influenza Vacc ine (#1) [facility] Start: 06-08-2024 Glaucoma screening Diabetes: R etinopathy Screening [facility] Start: 03-09-2024 End: 03-09-2024 Patient encounter procedure 03/09/2024 1:00 PM EDT Procedure Visit [facility] [address] [place] [address] Tiffanie Enrique, FA[address] [place] [address] [facility] Start: 02-23-2024 Medicare Annual Wellness (AWV) Medicare Annual Wellness (AWV) [facility] Start: 02-03-2024 End: 02-03-2024 Patient encounter procedure 02/03/2024 11:30 AM EDT Office Visit [facility] [address] [place] [address] Khoa Bowles MD [address] [place] [address] (Fax) [facility] Start: 01-18-2024 Hemoglobin A1c measurement Diabetes: Hemoglobin A1C [facility] Start: 01-09-2024 Urine screening for protein Diabetes: Urine Protein Screening [facility] Start: 11-18-2022 Urine screening for protein Diabetes: Urine Protein Screening [facility] Start: 1950 Screening for malign ant neoplasm of colon [facility] Immunizations Immunization Date Immunization Notes Care Provider [place] 02-16-2025 tetanus toxoid, redu rhonda diphtheria toxoid, and acellular pertussis vaccine, adsorbed Khoa Bowles MD Work Phone: [facility] 10-26-2024 influenza, high dose seasonal, preservative-free Khoa Bowles MD Work Phone: [facility] 10-26-2024 influenza virus vacc ine, unspecified formulation Khoa Bowles MD Work Phone: [facility] 10-14-2023 Influenza, Seasonal, Quadrivalent, Adjuvanted Tiffanie Enrique DPM Work Phone: [facility] 10-14-2023 influenza virus vacc ine, unspecified formulation Khoa Bowles MD Work Phone: [facility] 09-09-2022 SARS-CoV-2 (COVID-19 ) [id number] [place] [facility] 09-03-2022 influenza virus vacc ine, unspecified formulation [place] [facility] 09-03-2022 Influenza, High-dose Seasonal, Quadrivalent, Preservative Free Tiffanie Enrique DPM Work Phone: [facility] 09-26-2021 SARS-CoV-2 (COVID-19 ) mRNA-1273 vaccine [place] [facility] 09-25-2021 Moderna SARS-CoV-2 Booster Vaccination Tiffanie Enrique DPM Work Phone: [facility] 08-22-2021 influenza virus vacc ine, unspecified formulation [place] [facility] 08-22-2021 Influenza, Seasonal, Quadrivalent, Adjuvanted Tiffanie Enrique DPM Work Phone: [facility] 08-20-2021 influenza virus vacc ine, unspecified formulation [place] [facility] 01-25-2021 COVID-19 mRNA-1273 (Moderna) Khoa Bowles Work Phone: [facility] 01-25-2021 SARS-CoV-2 (COVID-19 ) Ad26 vaccine, recombinant [place] [facility] 12-31-2020 pneumococcal conjuga te vaccine, 13 valent Khoa Bowles MD Work Phone: [facility] 12-28-2020 COVID-19 mRNA-1273 (Moderna) Khoa Bowles Work Phone: [facility] Comment on above: Result Comment: 2022: [id number] 08-06-2020 influenza virus vacc ine, unspecified formulation [place] [facility] 08-06-2020 Influenza, Seasonal, Quadrivalent, Adjuvanted Tiffanie Enrique DPM Work Phone: [facility] 09-04-2019 influenza virus vacc ine, unspecified formulation [place] [facility] 09-04-2019 influenza, high dose seasonal, preservative-free Tiffanie Enrique DPM Work Phone: [facility] 08-19-2018 influenza virus vacc ine, unspecified formulation [place] [facility] 08-19-2018 influenza, high dose seasonal, preservative-free Tiffanie Enrique DPM Work Phone: [facility] 09-06-2017 influenza virus vacc ine, unspecified formulation [place] [facility] 09-06-2017 influenza, high dose seasonal, preservative-free Tiffanie Enrique DPM Work Phone: [facility] 09-06-2017 pneumococcal polysaccharide vaccine, 23 valent [place] [facility] 08-18-2017 influenza virus vacc ine, unspecified formulation [place] [facility] 08-17-2016 influenza virus vacc ine, unspecified formulation [place] [facility] 08-17-2016 influenza, high dose seasonal, preservative-free Tiffanie Enrique DPM Work Phone: [facility] 08-17-2016 pneumococcal conjuga te vaccine, 13 valent [place] [facility] 08-22-2015 zoster vaccine, live [place] [facility] 08-17-2015 influenza, seasonal, injectable, preservative free Tiffanie Enrique DPM Work Phone: [facility] 07-27-2013 influenza virus vacc ine, unspecified formulation [place] [facility] 02-22-2012 pneumococcal polysaccharide vaccine, 23 valent Tiffanie Enrique DPM Work Phone: [facility] 07-20-2009 pneumococcal polysaccharide vaccine, 23 valent [place] [facility] Payers Date Payer Category Payer Medicare [id number] 2016 Medicare [id number] 2016 Private Health Insurance [id number] 2015 Medicare [id number] 1959 Medicare [id number] 1959 Private Health Insurance [facility] [id number] 1959 Self-pay [id number] 1950 Unknown [id number] 2.16.84 0.1.556666.3.579.2.593 1950 Unknown [id number] 2.16.84 0.1.137499.3.579.2.593 1950 Unknown [id number] 2.16.84 0.1.593949.3.579.2.593 1950 Unknown [id number] 2.16.84 0.1.903559.3.579.2.593 1950 Unknown [id number] 2.16.84 0.1.936283.3.579.2.593 1950 Unknown [id number] 2.16.84 0.1.068646.3.579.2.593 1950 Unknown [id number] 2.16.84 0.1.779109.3.579.2.593 1950 Unknown [id number] 2.16.84 0.1.296986.3.579.2.593 1950 Unknown [id number] 2.16.84 0.1.453510.3.579.2.593 1950 Unknown [id number] 2.16.84 0.1.656062.3.579.2.593 1950 Unknown [id number] 2.16.8 40.1.335271.3.579.2.1286 1950 Unknown [id number] 2.16.8 40.1.809345.3.579.2.1286 1950 Unknown [id number] 2.16.8 40.1.262592.3.579.2.1286 1950 Unknown [id number] 2.16.8 40.1.401669.3.579.2.1286 1950 Unknown [id number] 2.16.8 40.1.056165.3.579.2.1286 1950 Unknown [id number] 2.16.8 40.1.427678.3.579.2.1286 1950 Unknown [id number] 2.16.8 40.1.810191.3.579.2.1259 1950 Unknown [id number] 2.16.8 40.1.772563.3.579.2.1259 1950 Unknown [id number] 2.16.8 40.1.955539.3.579.2.1259 1950 Unknown [id number] 2.16.84 0.1.380626.3.579.2.1259 1950 Unknown [id number] 2.16.84 0.1.804905.3.579.2.1259 1950 Unknown [id number] 2.16.84 0.1.499233.3.579.2.1259 1950 Unknown [id number] 2.16.84 0.1.769818.3.579.2.1259 1950 Unknown [id number] 2.16.84 0.1.227980.3.579.2.1259 1950 Unknown [id number] 2.16.84 0.1.068131.3.579.2.1259 1950 Unknown [id number] 2.16.84 0.1.896541.3.579.2.1259 1950 Unknown [id number] 2.16.8 40.1.616533.3.579.2.727 1950 Unknown [id number] 2.16.8 40.1.505158.3.579.2.727 1950 Unknown [id number] 2.16.8 40.1.433743.3.579.2.727 1950 Unknown [id number] 2.16.8 40.1.810457.3.579.2.727 1950 Unknown [id number] 2.16.8 40.1.053653.3.579.2.727 Unknown [id number] Unknown [id number] 2.16.8 40.1.606646.3.579.2.531 Social History Date Type Detail Facility Start: 04-03-2021 End: 06-02-2023 Tobacco smoking status NHIS Never smoked tobacco (finding) [facility] Start: 1950 Sex Assigned At Male F [facility] Tobacco smoking status Never [facility] Start: 12-09-2023 End: 05-07-2025 Sex Assigned At Male [facility] Start: 12-09-2023 End: 05-07-2025 Alcohol intake Lifetime non-drinker (finding) [facility] Start: 12-09-2023 End: 05-07-2025 History of Social function [facility] Start: 04-14-2023 Alcohol Comment Caffeine intake: non e [facility] Start: 1950 Sex Assigned At Not on file [facility] Sexual Orientation [facility] Start: 02-12-2010 Sex Male (finding) [facility] Medical Equipment Procedure Code Equipment Code Equipment Origin al Text Equipment Identifier Dates Discectomy, lumbar COFLEX SIZE 10 FDA art: 11-23-2018 Discectomy, lumbar COFLEX SIZE 14 FDA art: 11-23-2018 Discectomy, lumbar COFLEX SIZE [address] art: 11-23-2018 Discectomy, lumbar COFLEX SIZE 10 FDA art: 11-23-2018 [id number] Start: 08-02-2023 End: 05-07-2025 1 Units in the morning. Take before meals. Accucheck soft clix. [id number] Start: 11-10-2023 End: 11-04-2024 Injection subcutaneous [id number] Start: 11-11-2023 Use for Injectio n subcutaneous twice daily [id number] Start: 07-24-2024 Injection subcutaneous [id number] Start: 06-01-2024 End: 07-24-2024 1 strip by In Vi tro route in the morning and 1 strip in the evening. Take before meals. [id number] Start: 05-07-2025 End: 08-15-2025 1 Lancet in the morning and 1 Lancet in the evening. Take before meals. [id number] Start: 05-07-2025 End: 08-15-2025 Functional Status Date Assessment Result Facility 05-07-2025 Patient Health Quest ionnaire 2 item (PHQ-2) [Reported] [facility] 04-26-2025 Patient Health Quest ionnaire 2 item (PHQ-2) [Reported] [facility] 12-18-2024 Functional Status N/A [facility] 09-04-2024 Functional Status N/A [facility] 07-21-2023 Functional Status N/A [facility] 01-05-2023 Functional Status N/A [facility] Clinical Notes 09-21-2022 to 05-07-2025 Khoa Bowles MD - 05/07/2025 11:00 AM Pj Bowles MD - 04/26/2025 3:00 PM CHRISTOPHERTTiffanie Enrique DPM - 04/05/2025 1:00 PM Pj Bowles MD - 02/20/2025 8:00 AM EDT Note Date & Type Note Facility 05-07-2025 History of Present illness Narrative Images from the original note were not included. Manuel Balderas is a 75 y.o. male presents with chief complaint of Annual Exam HPI: History of Present Illness I have reviewed and reconciled the history and medication list with the patient today. CURRENT PCP/CARE TEAM: Patient Care Team: Khoa Bowles MD as PCP - General (Family Medicine) Khoa Bowles MD as PCP - ACO [place] MD as Referring Physician (Urology) Tiffanie Enrique DPM as Referring Physician (Podiatry) Lraissa Leavitt RN as Registered Nurse (Family Medicine) [...] Yes Vision Screening: Yes, patient sees regular group underwriter/picker and sorter load and unload Hearing Screening: Not done Cognitive Screening Self Assessment: No concerns rasied by family members, friends, or caretakers Three Word Registration: Banana, Hailey, Chair Clock Drawing: Normal Clock - 2 Three Word Recall: 2/3 words correct - 2 Total Score (0-5 Points): 4 Pain Assessment Pain Score: 2 HISTORIES: PAST MEDICAL HISTORY: Past Medical History: Diagnosis Date Acute deep vein thrombosis (DVT) of tibial vein of left lower extremity ([facility]) Acute infective polyneuritis ([facility]) Back pain severe polyneuropathy and polyradiculopathy- [...] left foot limited to breakdown of skin ([facility]) Chronic ulcer of left foot limited to breakdown of skin ([facility]) Deep vein thrombosis (DVT) of left lower extremity ([facility]) 07/28/2023 Degenerative disc disease, lumbar Diabetes ([facility]) Diabetes mellitus ([facility]) without mention of complication, type II or unspecified type, uncontrolled Disorder of lipoid metabolism unspecified Diverticulosis of colon without hemorrhage Essential hypertension unspecified Facet arthritis of lumbar region Fibromyalgia Hyperlipidemia Hypertension Iron deficiency anemia refractory to iron therapy Kidney calculi Kidney stones Malaise and fatigue Microalbuminuric diabetic nephropathy ([facility]) Morbid obesity ([facility]) Neuropathy Polyneuropathy with improvement with gabapentin. he cannot walk for long distances due to fatigue and weakness and is afraid of falling. He is having some balance difficulty possibly due to the gabapentin and will decrease med to see if there is improvement Non-pressure chronic ulcer of other part of left foot limited to breakdown of skin ([facility]) Obesity Obstructive sleep apnea (adult) (pediatric) Obstructive sleep apnea on CPAP 2010 Peripheral neuropathy Peripheral vascular disease Personal history of medical treatment 2010 infection in foot surgery Polyneuropathy Polyradiculopathy Radiculopathy, lumbosacral region Right bundle branch block Rotator cuff tear, left Skin ulcer of toe of left foot with fat layer exposed ([facility]) Type 2 diabetes mellitus with diabetic nephropathy, without long-term current use of insulin ([facility]) Type 2 diabetes mellitus with diabetic neuropathic arthropathy, without long-term current use of insulin ([facility]) Type II diabetes mellitus with neurological [...] of 1 of the Coflex devices., [place], [facility] ROTATOR CUFF REPAIR Left 2000 anterior stabilization [...] mg, Daily aspirin 81 mg, Daily biotin 23894 MCG tablet 1 tablet, 2 times daily [...] Wt 281 lb SpO2 96% BMI 37.07 kg/m Smoking Status Never BSA 2.56 m BP Readings from Last 3 Encounters: 05/07/25 [...] discussing health maintenance issues, ordering testing as appropriate, and a schedule was reviewed regarding recommended screening. [...] long-term current use of insulin (HCC) Chronic problem, stable, monitor longitudinally. 8. Chronic ulcer of left foot limited to breakdown of skin (HCC) Chronic problem, stable, monitor longitudinally. 9. Morbid obesity due to excess calories (CMS-HCC) Chronic problem, stable, monitor longitudinally. 10. Type 2 diabetes mellitus with foot ulcer (CODE) (HCC) Chronic problem, stable, monitor longitudinally. 11. Thrombocytopenia Chronic problem, stable, monitor longitudinally. documented in this encounter [facility] 04-26-2025 History of Present illness Narrative Images from the original note were not included. Patient ID: Manuel Balderas is a 75 y.o. male who presents for: Patient is here with his today. Hypertension Patient is here for follow-up of elevated blood pressure. He is not exercising and is adherent to a low-salt diet. Blood pressure is well controlled at home. Cardiac symptoms: none. Patient denies chest pain, dyspnea, irregular heart beat, lower extremity edema, and palpitations. Cardiovascular risk factors: advanced age (older than 55 for men, 65 for women), diabetes mellitus, dyslipidemia, hypertension, male gender, microalbuminuria, obesity (BMI >= 30 kg/m2), and sedentary lifestyle. Use of agents associated with hypertension: none. History of target organ damage: none. He is seeing pain management for his leg Hyperlipidemia Pt who presents for follow-up of dyslipidemia. A repeat fasting lipid profile was not done. The patient does not use medications that may worsen dyslipidemias (corticosteroids, progestins, anabolic steroids, diuretics, beta-blockers, amiodarone, cyclosporine, olanzapine). Exercise: rarely. Diabetes Mellitus Patient presents for follow up of diabetes. Current symptoms include: dry mouth in the AM. Symptoms have stabilized. Patient denies increased appetite, polydipsia, and polyuria. Evaluation to date has included: hemoglobin A1C and microalbuminuria. Home sugars: AM and PM with insulin this AM it was 160 yesterday evening 116. Review of Systems Constitutional: Negative for activity change and fatigue. Respiratory: Negative for cough, shortness of breath and wheezing. Cardiovascular: Negative for chest pain, palpitations and leg swelling. Neurological: Negative for light-headedness and headaches. Objective The patient is pleasant and in no acute distress. The neck is supple and trachea is midline. No masses are appreciated. The heart is regular rate and rhythm without S3, S4. No murmur. The patient has normal respiratory pattern. The breath sounds are symmetrical without evidence of rhonchi or rales. No wheezing. The skin is warm and dry. The lower extremities have 1-2 + edema. The patient has good eye contact and speech is clear. Appropriate affect. 06/15/2024 10:43 AM 07/26/2024 3:43 PM 08/08/2024 12:34 PM 09/14/2024 2:55 PM 12/28/2024 1:48 PM 02/20/2025 7:40 AM 04/05/2025 1:00 PM Vitals BMI 37.73 kg/m2 37.34 kg/m2 37.07 kg/m2 37.07 kg/m2 37.07 kg/m2 37.07 kg/m2 37.07 kg/m2 BSA (m2) 2.59 m2 2.57 m2 2.56 m2 2.56 m2 2.56 m2 2.56 m2 2.56 m2 Systolic 132 130 Diastolic 80 84 Heart Rate 69 52 SpO2 97 % 99 % Resp 16 Height (in) 6' 1 6' 1 6' 1 6' 1 6' 1 6' 1 6' 1 Weight (lb) 286 283 281 [phone] 281 Visit Report Report Report Report Allergies Allergen Reactions Meperidine Other Reaction(s): Other: See Comments shakes Meperidine Hcl Other Reaction(s): Shakes, shakes Pioglitazone Swelling Current Outpatient Medications on File Prior to Visit Medication Sig Dispense Refill allopurinol (Zyloprim) 300 MG tablet Take 300 mg by mouth Daily aspirin 81 MG EC tablet Take 81 mg by mouth in the morning. biotin 36933 MCG tablet Take 1 tablet by mouth in the morning and 1 tablet before bedtime. Blood Glucose Monitoring Suppl (Blood Glucose Monitoring 333) device 1 Device continuously Accucheck dapagliflozin (Farxiga) 10 MG Take 1 tablet (10 mg) by mouth Daily 90 tablet 1 doxycycline (Monodox) 100 MG capsule Take 1 capsule (100 mg) by mouth Daily 90 capsule 3 DULoxetine (Cymbalta) [address] capsule Take 30 mg by mouth in the morning and 30 mg before bedtime. fenofibrate (Triglide) 160 MG [...] same time. metFORMIN (Glucophage) 1000 MG tablet TAKE 1 TABLET (1,000 MG) BY MOUTH IN THE MORNING AND IN THE EVENING WITH MEALS 180 tablet 1 metoprolol tartrate (Lopressor) 50 MG tablet Take 1 tablet (50 mg) by mouth in the morning and 1 tablet (50 mg) before bedtime. 180 tablet 1 pen needle 32G x 6 mm mis Use for Injection subcutaneous twice daily 200 [...] medications on file prior to visit. 1. Primary hypertension Chronic problem, stable, to goal. - losartan-hydroCHLOROthiazide (Hyzaar) 100-12.5 MG tablet; Take 1 tablet by mouth Daily Dispense: 90 tablet; Refill: 1 - metoprolol tartrate (Lopressor) 50 MG tablet; Take 1 tablet (50 mg) by mouth in the morning and 1 tablet (50 mg) before bedtime. Dispense: 180 tablet; Refill: 1 - hydroCHLOROthiazide (HYDRODiuril) 25 MG tablet; Take 1 tablet (25 mg) by mouth in the evening Dispense: 90 tablet; Refill: 1 - Comprehensive metabolic panel; Future - Lipid panel; Future - Comprehensive metabolic panel - Lipid panel 2. Mixed hyperlipidemia Renew prescription - fenofibrate (Triglide) 160 MG tablet; Take 1 tablet (160 mg) by mouth Daily Dispense: 90 tablet; Refill: 1 - Lipid panel; Future - Lipid panel 3. Hyperuricemia - Uric acid; Future - Uric acid 4. Microalbuminuria Chronic problem, defining an aspect the nephropathy, with significant risk, uncertain progression requiring longitudinal monitoring, and moderate decision making. Microalbuminuria describes a moderate increase in the level of urine albumin. Normally, the kidneys filter albumin, so if the kidney leaks small amounts of albumin into the urine then it is a indicator of chronic kidney disease. Microalbuminuria is an independent indicator of increased cardiovascular risk among individuals and therefore can be used for risk stratification for cardiovascular disease. 5. Type 2 diabetes mellitus with diabetic microalbuminuria, with long-term current use of insulin (HCC) - metFORMIN (Glucophage) 1000 MG tablet; Take 1 tablet (1,000 mg) by mouth in the morning and 1 tablet (1,000 mg) in the evening. Take with meals. Dispense: 180 tablet; Refill: 1 - Comprehensive metabolic panel; Future - Hemoglobin A1c; Future - Comprehensive metabolic panel - Hemoglobin A1c 6. Type 2 diabetes mellitus with diabetic polyneuropathy, with long-term current use of insulin (HCC) Chronic problem, stable, to goal hemoglobin A1c 6.6 - Comprehensive metabolic panel; Future - Hemoglobin A1c; Future - Comprehensive metabolic panel - Hemoglobin A1c 7. Diabetic neuropathic arthropathy (HCC) Chronic problem, stable, monitor longitudinally. - Comprehensive metabolic panel; Future - Hemoglobin A1c; Future - Comprehensive metabolic panel - Hemoglobin A1c 8. Lymphedema of both lower extremities Chronic problem, stable, monitor longitudinally. - spironolactone (Aldactone) 25 MG tablet; 2 tablets in Am and 1 tablet in PM Dispense: 270 tablet; Refill: 1 9. Chronic cellulitis Chronic problem, stable, monitor longitudinally. - doxycycline (Monodox) 100 MG capsule; Take 1 capsule (100 mg) by mouth Daily Dispense: 90 capsule; Refill: 3 10. Polypharmacy Chronic problem The patient meets the criteria for polypharmacy; 5 or more prescriptions or multi-morbidity defined as 5 or more diagnoses. Polypharmacy can significantly increase the risk of adverse drug events and negatively impact adherence. Consideration of factors such as clinician agreement, patient perspective, and de-prescribing, as appropriate can improve patient outcomes while simplifying care. This requires longitudinal monitoring as there is at least a moderate risk of morbidity and requires at least a moderate degree of evaluation and management. 11. Morbid obesity due to excess calories ([facility]) Chronic problem, stable, monitor longitudinally. documented in this encounter [facility] 04-05-2025 History of Present illness Narrative Images from the original note were not included. Subjective Patient ID: Manuel Balderas is a 75 y.o. male who presents for Nail care ( Manuel Balderas is a 75 y.o. male who presents for Nail care. Patient relates he started Pain management with [facility] for left ankle. PCP: Dr. Bowles 10/31/2025 A1C: 6.6, BS: 143, SS: 12). Patient presents complaining of elongated, thick fungal nails. He is requesting nail debridement today. He was also requesting debridement of the callus of the left hallux of the left weight-bearing surface of the heel. He states he has seeing a doctor in [place] for his left ankle pain and arthritis. He was prescribed a brace which rubs on the medial aspect of the ankle. He is in the middle of trying to get this brace adjusted so that it no longer rubs. He returns on Wednesday for an additional appointment. Review of Systems Current Outpatient Medications: allopurinol (Zyloprim) 300 MG tablet, Take 300 mg by mouth Daily, Disp: , Rfl: aspirin 81 MG EC tablet, Take 81 mg by mouth in the morning., Disp: , Rfl: biotin 56418 MCG tablet, Take 1 tablet by mouth in the morning and 1 tablet before bedtime., Disp: , Rfl: Blood Glucose Monitoring Suppl (Blood Glucose Monitoring 333) device, 1 Device continuously Accucheck, Disp: , Rfl: dapagliflozin (Farxiga) 10 MG, Take 1 tablet (10 mg) by mouth Daily, Disp: 90 tablet, Rfl: 1 doxycycline (Monodox) 100 MG capsule, Take 1 capsule (100 mg) by mouth Daily, Disp: 90 capsule, Rfl: 3 DULoxetine (Cymbalta) [address] capsule, Take 30 mg by mouth in the morning and 30 mg before bedtime., Disp: , Rfl: fenofibrate (Triglide) 160 MG tablet, Take 1 tablet (160 mg) by mouth Daily, Disp: 90 tablet, Rfl: 1 ferrous sulfate 325 (65 Fe) MG tablet, Take 325 mg by mouth in the morning. Take with meals., Disp: , Rfl: Flomax 0.4 MG 24 hr capsule, Take 0.4 mg by mouth in the evening., Disp: , Rfl: Glucose Blood (Blood Glucose Test Strips 333) strip, 1 strip by In Vitro route in the morning and 1 strip in the evening. Take before meals., Disp: , Rfl: hydroCHLOROthiazide (HYDRODiuril) 25 MG tablet, Take 1 tablet (25 mg) by mouth in the evening, Disp: 90 tablet, Rfl: 1 insulin glargine (Basaglar KwikPen) 100 UNIT/ML pen, INJECT BID, SLIDING BLOOD GLUCOSE SCALE WITH THE COVERAGE: <70, ZERO AND EAT. 70-150, 10 UNITS. 151-200, 14 UNITS. 201-250, 16 UNITS. 251-300, 18 UNITS. >300, 20 UNITS, Disp: 15 each, Rfl: 3 Lancets misc, 1 Lancet in the morning and 1 Lancet in the evening. Take before meals., Disp: , Rfl: losartan-hydroCHLOROthiazide (Hyzaar) 100-12.5 MG tablet, Take 1 [...] 10 MG tablet, Take 10 mg by mouth Daily, Disp: , Rfl: Meperidine, Meperidine hcl, and Pioglitazone Past Surgical [...] of 1 of the Coflex devices., Uday, [facility] CUFF REPAIR Left 2000 anterior stabilization [...] to the chronic edema and stasis changes. ULCER: Small superficial open ulceration noted of the medial aspect of the left ankle from rubbing in brace. No surrounding signs of infection. Neurological: Mental Status: He is alert and oriented to person, place, and time. Comments: Light touch sensation intact VIBRATORY: absent at IPJ, MPJ, and medial malleolus. Diminished at patella b/l. SEMMES-NATASHA 5.07 MONOFILAMENT: absent at 10/10 sites. Psychiatric: Mood and Affect: Mood normal. Behavior: Behavior normal. MODIFIER: Q9, 26877, 22450 Assessment/Plan ICD-10-CM 1. Type II or unspecified type diabetes mellitus with neurological manifestations, not 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) (CMS/[facility]) E11.49 2. Onychomycosis B35.1 3. Acquired keratoderma L85.1 4. Callus L84 Patient requests debriding of toenails. As per request all 10 nails are debrided. There reduced in thickness and in length. Margins curetted of debris. Feet inspected. Hygiene discussed. Patient relates significant relief of discomfort. Invited to call if questions or problems arise Callus at L hallux and L WB heel were debrided by me with #15 blade. This note was created with the assistance of a speech recognition program. While intending to generate a timely document that accurately reflects the content of the visit, no guarantee can be provided that every grammatical or spelling mistake has been or will be identified or corrected. Thank you for your understanding. Tiffanie Enrique DPM Review of Systems documented in this encounter [facility] 04-02-2025 Hospital Discharge instructions Patient Education 04/02/2025 13:11:27 Magnetic Resonance Imaging Magnetic Resonance Imaging Magnetic resonance imaging (MRI) is a painless test that produces detailed images of organs and tissues inside the body without using X-rays. During an MRI, strong magnets and radio waves work together to form images. MRI images may provide more details about a medical condition than X-rays, CT scans, and ultrasounds can provide. For a standard MRI, you will lie on a table that slides into a tunnel. In an open MRI, the tunnel will be open at the sides. In some cases, dye (contrast material) may be injected into your bloodstream to make the MRI images even clearer. Tell a health care provider about: Any allergies you have. All medicines you are taking, including vitamins, herbs, eye drops, creams, and ymko-wnb-xthclzt medicines. Any surgeries you have had. Any medical conditions you have. Any metal you may have in your body. The magnets used in an MRI can cause metal objects in your body to move. Metal can also make it difficult to get clear images. Objects that may contain metal include: ?Any joint replacement (prosthesis), such as an artificial knee or hip. ?An implanted defibrillator, pacemaker, or neurostimulator. ?A metallic ear implant (cochlear implant). ?An artificial heart valve. ?A metallic object in the eye. ?Metal splinters. ?Bullet fragments. ?A port for delivering insulin or chemotherapy. Any tattoos you have. Some of the darker inks can cause problems with testing. Whether you are using a control implant such as an intrauterine device (IUD). Whether you are , may be , or are . Any fear of cramped spaces (claustrophobia). If this is a problem, it usually can be managed with medicines given prior to the MRI. What are the risks? Generally, this is a safe test. However, problems may occur, such as: If you have metal in your body and it is close to the area being tested, it may be hard to get high-quality images. If you are , you should avoid MRI tests during the first three months of . An MRI may affect an unborn baby. If dye is used: ?You may need to stop until the dye leaves your body naturally, if this applies. ?There is a risk of an allergic reaction to the dye. You can take medicines to prevent this reaction or to treat it if you have allergy symptoms. ?The dye can cause damage to your kidneys. Drinking plenty of water before and after the procedure can help prevent this problem. What happens before the procedure? You will be asked to remove all metal, including: ?A watch, jewelry (including jewelry in piercings), and other metal objects. ?Hearing aids. ?Dentures. ?An underwire bra. ?Makeup. Some makeup contains small amounts of metal. Braces and fillings are normally not a problem. If you are , ask your health care provider if you need to pump before your test. You may need to stop temporarily if dye will be used. What happens during the procedure? You may be given earplugs or headphones to listen to music. The MRI machine can be noisy. You will lie flat on your back on a long table. If dye will be used, an IV will be inserted into one of your veins. Dye will be injected into your IV and travel through your bloodstream. The table will slide into a tunnel that has magnets inside. When you are inside the tunnel, you will still be able to talk to your health care provider. You will be asked to lie very still while images are taken. Your health care provider will tell you when you can move. You may have to wait a few minutes to make sure that the images produced during the test are clear. When all images are produced, the table will slide out of the tunnel. The procedure can last from 30 minutes to over an hour. The procedure may vary among health care providers and hospitals. What can I expect after the procedure? You may be taken to a recovery area if sedation medicines were used. Your blood pressure, heart rate, breathing rate, and blood oxygen level will be monitored until you leave the hospital or clinic. If dye was used: ?It will leave your body through your urine within a day. You may be told to drink plenty of fluids to help flush the dye out of your system. ?Do not breastfeed your child until your health care provider says that this is safe. Follow these instructions at home: You may return to your normal activities right away, or as told by your health care provider. It is up to you to get your test results. Ask your health care provider, or the department that is doing the test, when your results will be ready. Keep all follow-up visits. This is important. Talk with your health care provider about what your test results mean. Summary Magnetic resonance imaging (MRI) is a painless test that produces detailed pictures of the inside of your body without using X-rays. Strong magnets and radio waves work together to form very detailed and clear images. In some cases, dye (contrast material) may be injected into your body to make MRI images even clearer. Before your MRI, be sure to tell your health care provider about any metal you may have in your body. Talk with your health care provider about what your test results mean. This information is not intended to replace advice given to you by your health care provider. Make sure you discuss any questions you have with your health care provider. Document Revised: 07/01/2022 Document Reviewed: 02/19/2021 [employer] Patient Education 2023 [employer]. 04/02/2025 13:09:37 Prostate Cancer Screening Prostate Cancer Screening Prostate cancer screening is testing that is done to check for the presence of prostate cancer in men. The prostate gland is a walnut-sized gland that is located below the bladder and in front of the rectum in males. The function of the prostate is to add fluid to semen during ejaculation. Prostate cancer is one of the most common types of cancer in men. Who should have prostate cancer screening? Screening recommendations vary based on age and other risk factors, as well as between the professional organizations who make the recommendations. In general, screening is recommended if: You are age 50 to 70 and have an average risk for prostate cancer. You should talk with your health care provider about your need for screening and how often screening should be done. Because most prostate cancers are slow growing and will not cause , screening in this age group is generally reserved for men who have a 10- to 15-year life expectancy. You are younger than age 50, and you have these risk factors: ?Having a father, brother, or uncle who has been diagnosed with prostate cancer. The risk is higher if your family member's cancer occurred at an early age or if you have multiple family members with prostate cancer at an early age. ?Being a male who is Black or is of [place] or sub-Saharan descent. In general, screening is not recommended if: You are younger than age 40. You are between the ages of 40 and 49 and you have no risk factors. You are 70 years of age or older. At this age, the risks that screening can cause are greater than the benefits that it may provide. If you are at high risk for prostate cancer, your health care provider may recommend that you have screenings more often or that you start screening at a younger age. How is screening for prostate cancer done? The recommended prostate cancer screening test is a blood test called the prostate-specific antigen (PSA) test. PSA is a protein that is made in the prostate. As you age, your prostate naturally produces more PSA. Abnormally high PSA levels may be caused by: Prostate cancer. An enlarged prostate that is not caused by cancer (benign prostatic hyperplasia, or BPH). This condition is very common in older men. A prostate gland infection (prostatitis) or urinary tract infection. Certain medicines such as male hormones (like testosterone) or other medicines that raise testosterone levels. A rectal exam may be done as part of prostate cancer screening to help provide information about the size of your prostate gland. When a rectal exam is performed, it should be done after the PSA level is drawn to avoid any effect on the results. Depending on the PSA results, you may need more tests, such as: A physical exam to check the size of your prostate gland, if not done as part of screening. Blood and imaging tests. A procedure to remove tissue samples from your prostate gland for testing (biopsy). This is the only way to know for certain if you have prostate cancer. What are the benefits of prostate cancer screening? Screening can help to identify cancer at an early stage, before symptoms start and when the cancer can be treated more easily. There is a small chance that screening may lower your risk of dying from prostate cancer. The chance is small because prostate cancer is a slow-growing cancer, and most men with prostate cancer from a different cause. What are the risks of prostate cancer screening? The main risk of prostate cancer screening is diagnosing and treating prostate cancer that would never have caused any symptoms or problems. This is called overdiagnosisand overtreatment. PSA screening cannot tell you if your PSA is high due to cancer or a different cause. A prostate biopsy is the only procedure to diagnose prostate cancer. Even the results of a biopsy may not tell you if your cancer needs to be treated. Slow-growing prostate cancer may not need any treatment other than monitoring, so diagnosing and treating it may cause unnecessary stress or other side effects. Questions to ask your health care provider When should I start prostate cancer screening? What is my risk for prostate cancer? How often do I need screening? What type of screening tests do I need? How do I get my test results? What do my results mean? Do I need treatment? Where to find more information The [employer]: www.cancer.org [employer]: www.auanet.org Contact a health care provider if: You have difficulty urinating. You have pain when you urinate or ejaculate. You have blood in your urine or semen. You have pain in your back or in the area of your prostate. Summary Prostate cancer is a common type of cancer in men. The prostate gland is located below the bladder and in front of the rectum. This gland adds fluid to semen during ejaculation. Prostate cancer screening may identify cancer at an early stage, when the cancer can be treated more easily and is less likely to have spread to other areas of the body. The prostate-specific antigen (PSA) test is the recommended screening test for prostate cancer, but it has associated risks. Discuss the risks and benefits of prostate cancer screening with your health care provider. If you are age 70 or older, the risks that screening can cause are greater than the benefits that it may provide. This information is not intended to replace advice given to you by your health care provider. Make sure you discuss any questions you have with your health care provider. Document Revised: 04/13/2022 Document Reviewed: 04/13/2022 [employer] Patient Education 2023 [employer]. Follow Up Care 12/18/2024 11:38:54 With:NINA LEVY, Madison Crespo, URL Address: [facility] [address] [place] [address]- [phone] When: Unknown [facility] Maria R 04-02-2025 Note Patient Education Oncology Prostate Cancer Screening Prostate cancer screening is testing that is done to check for the presence of prostate cancer in men. The prostate gland is a walnut-sized gland that is located below the bladder and in front of the rectum in males. The function of the prostate is to add fluid to semen during ejaculation. Prostate cancer is one of the most common types of cancer in men. Who should have prostate cancer screening? Screening recommendations vary based on age and other risk factors, as well as between the professional organizations who make the recommendations. In general, screening is recommended if: ??? You are age 50 to 70 and have an average risk for prostate cancer. You should talk with your health care provider about your need for screening and how often screening should be done. Because most prostate cancers are slow growing and will not cause , screening in this age group is generally reserved for men who have a 10- to 15-year life expectancy. ??? You are younger than age 50, and you have these risk factors: ? Having a father, brother, or uncle who has been diagnosed with prostate cancer. The risk is higher if your family member's cancer occurred at an early age or if you have multiple family members with prostate cancer at an early age. ? Being a male who is Black or is of [place] or sub-Saharan descent. In general, screening is not recommended if: ??? You are younger than age 40. ??? You are between the ages of 40 and 49 and you have no risk factors. ??? You are 70 years of age or older. At this age, the risks that screening can cause are greater than the benefits that it may provide. If you are at high risk for prostate cancer, your health care provider may recommend that you have screenings more often or that you start screening at a younger age. How is screening for prostate cancer done? The recommended prostate cancer screening test is a blood test called the prostate-specific antigen (PSA) test. PSA is a protein that is made in the prostate. As you age, your prostate naturally produces more PSA. Abnormally high PSA levels may be caused by: ??? Prostate cancer. ??? An enlarged prostate that is not caused by cancer (benign prostatic hyperplasia, or BPH). This condition is very common in older men. ??? A prostate gland infection (prostatitis) or urinary tract infection. ??? Certain medicines such as male hormones (like testosterone) or other medicines that raise testosterone levels. A rectal exam may be done as part of prostate cancer screening to help provide information about the size of your prostate gland. When a rectal exam is performed, it should be done after the PSA level is drawn to avoid any effect on the results. Depending on the PSA results, you may need more tests, such as: ??? A physical exam to check the size of your prostate gland, if not done as part of screening. ??? Blood and imaging tests. ??? A procedure to remove tissue samples from your prostate gland for testing (biopsy). This is the only way to know for certain if you have prostate cancer. What are the benefits of prostate cancer screening? Screening can help to identify cancer at an early stage, before symptoms start and when the cancer can be treated more easily. ??? There is a small chance that screening may lower your risk of dying from prostate cancer. The chance is small because prostate cancer is a slow-growing cancer, and most men with prostate cancer from a different cause. What are the risks of prostate cancer screening? The main risk of prostate cancer screening is diagnosing and treating prostate cancer that would never have caused any symptoms or problems. This is called overdiagnosisand overtreatment. PSA screening cannot tell you if your PSA is high due to cancer or a different cause. A prostate biopsy is the only procedure to diagnose prostate cancer. Even the results of a biopsy may not tell you if your cancer needs to be treated. Slow-growing prostate cancer may not need any treatment other than monitoring, so diagnosing and treating it may cause unnecessary stress or other side effects. Questions to ask your health care provider ??? When should I start prostate cancer screening? What is my risk for prostate cancer? How often do I need screening? What type of screening tests do I need? How do I get my test results? What do my results mean? Do I need treatment? Where to find more information ??? The [employer]: www.cancer.org ??? [employer]: www.auanet.org Contact a health care provider if: ??? You have difficulty urinating. ??? You have pain when you urinate or ejaculate. ??? You have blood in your urine or semen. ??? You have pain in your back or in the area of your prostate. Summary ??? Prostate cancer is a common type of cancer in men. The prostate gland (more content not included)... [facility] 02-20-2025 History of Present illness Narrative Images from the original note were not included. Patient ID: Manuel Balderas is a 74 y.o. male who presents for: ER Follow up: Fall Skin tear Flowsheet Row Patient Outreach from 02/19/2025 in [facility] with Larissa Leavitt RN Hospital Information ED, Hospital or Senior Living Facility Discharge? ED Patient has been contacted within 2 days of being seen in the ED Yes Diagnosis Skin tear Discharge Date 02/16/25 Discharged To: Home Setting Discharge Hospital [facility] Engagement Call Start Time 1456 Admission Date 02/16/25 Medications Discharge medications reviewed [...] to their discharge instructions? Yes [spoke with Summer pt's ] Nursing Interventions Reviewed instructions with [...] mg by mouth in the morning. biotin 77912 MCG tablet Take 1 tablet by mouth [...] 1 pen needle 32G x 6 mm mis Use for Injection subcutaneous twice daily 200 [...] transition of care note is reviewed. a stlt-vr-tnjz evaluation is done today. Medical decision making is complex in degree. documented in this encounter [facility] 12-28-2024 History of Present illness Narrative [...] Bowles 10/31/2024, A1C: 6.6, BS: 131, SS: 12). Established patient returns requesting nail debridement and callus debridement. He states he recently had a CT scan of his left ankle that showed significant arthritis. He is getting a custom brace at an orthotic prosthetic Center in [facility] Review of Systems Current Outpatient Medications: allopurinol (Zyloprim) 300 MG tablet, Take 300 mg by mouth Daily, Disp: , Rfl: aspirin 81 MG EC tablet, Take 81 mg by mouth in the morning., Disp: , Rfl: biotin 39016 MCG tablet, 1 (one) time each day [...] of 1 of the Coflex devices., Uday, [facility] CUFF REPAIR Left 1999 anterior stabilization [...] Mood normal. Behavior: Behavior normal. MODIFIER: Q9, 51482, 53184 Assessment/Plan ICD-10-CM 1. Type II or unspecified type diabetes mellitus with neurological manifestations, not 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) (CMS/[facility]) E11.49 2. Onychomycosis B35.1 3. Acquired keratoderma [...] Tiffanie Enrique DPM documented in this encounter [facility] 12-18-2024 Hospital Discharge instructions Patient Education [...] your health care provider. General instructions Take itwt-piv-tnmnmqg and prescription medicines only as told by [...] provider. Document Revised: 07/07/2021 Document Reviewed: 07/07/2021 [employer] Patient Education 2023 [employer]. Follow Up Care 09/04/2024 14:29:02 With:NINA LEVY, Madison Crespo, URL Address: [facility] [address] , [place] [address] [phone] When: Unknown Comments:3 mos w/ PVR and PSA [facility] Maria R 12-18-2024 Note Patient Education Obstetrics and Gynecology [...] health care provider. General instructions ??? Take avma-bju-jisovfl and prescription medicines only as told by [...] drink, and whe (more content not included)... [facility] 10-31-2024 History of Present illness Narrative Images [...] mg by mouth in the morning. biotin [address]6781 MCG tablet 1 (one) time each day [...] prior to visit. 1. Diabetic neuropathic arthropathy ([facility]/HCC) (Primary) Chronic problem, demonstrating end-organ damage from his diabetes. Stable and monitor longitudinally. 2. Polyneuropathy due to type 2 diabetes mellitus (CMS/[facility]) As above 3. Primary hypertension ([facility]) Duplicate diagnosis see the essential hypertension later in the note 4. Peripheral venous insufficiency Chronic problem, stable. He does have some compression hose in place. 5. Diabetic nephropathy associated with type 2 diabetes mellitus (HCC) (CMS/[facility]) Chronic problem, stable. - dapagliflozin (Farxiga) 10 MG; Take 1 tablet (10 mg) by mouth Daily Dispense: 90 tablet; Refill: 1 6. Type 2 diabetes mellitus with hyperglycemia, without long-term current use of insulin ([facility]) Chronic problem, stable, actually to goal at [...] if any problems occur. (Utilizing the original guidelines or the 2020 office/outpatient code guidelines [...] capsule; Refill: 3 documented in this encounter [facility] 09-14-2024 History of Present illness Narrative [...] in the morning., Disp: , Rfl: biotin 95221 MCG tablet, 1 (one) time each day [...] 1 pen needle 32G x 6 mm ww [facility], Use for Injection subcutaneous twice daily, Disp: [...] CATARACT EXTRACTION Bilateral 06/2021 Dr White COLONOSCOPY 2011 COLONOSCOPY 06/17/2016 EYE EXAM 2014 HERNIA REPAIR [...] of 1 of the Coflex devices., Uday, [facility] ROTATOR CUFF REPAIR Left 2000 anterior stabilization [...] Mood normal. Behavior: Behavior normal. MODIFIER: Q9, 75790, 80522 Assessment/Plan ICD-10-CM 1. Type II or unspecified type diabetes mellitus with neurological manifestations, not 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) (CMS/[facility]) E11.49 2. Onychomycosis B35.1 3. Acquired keratoderma [...] Tiffanie Enrique DPM documented in this encounter [facility] 09-04-2024 Hospital Discharge instructions Patient [...] include: ?8 oz (237 mL) of milk, vynsjwm-slwuohrmrdxq-skceo milk, and calcium-fortifiedfruit juice. Calcium-fortified means that [...] ?Spinach (cooked), rhubarb, beets, sweet potatoes, and Tongan chard. ?Peanuts. ?Potato chips, palauan fries, and baked potatoes with skin on. ?Nuts and nut products. ?Chocolate. If you regularly take a diuretic medicine, make sure to eat at least 1 or 2 servings of fruits or vegetables that are high in potassium each day. These include: ?Avocado. ?Banana. ?[place], prune, carrot, or tomato juice. ?Baked potato. [...] magnesium, fish oil, or vitamin B6. Take ahlb-fbs-wkhvxdx and prescription medicines only as told by [...] Casseroles. Pizza. Lasagna. Frozen meals. Potato chips. Iraqi fries. The items listed above may not [...] provider. Document Revised: 01/28/2023 Document Reviewed: 01/28/2023 [employer] Patient Education 2023 [employer]. Follow Up Care 07/20/2024 10:51:39 With:NINA LEVY, Madison Crespo, URL Address: [facility] [address], [place] [address]- When: Unknown [facility] [place] 09-04-2024 Note Patient Education Nephrology Dietary Guidelines [...] ? 8 oz (237 mL) of milk, fkcljpb-fmqxxtvjloln-auqye milk, and calcium-fortifiedfruit juice. Calcium-fortified means that [...] Spinach (cooked), rhubarb, beets, sweet potatoes, and Tongan chard. ? Peanuts. ? Potato chips, palauan fries, and baked potatoes with skin on. ? Nuts and nut products. ? Chocolate. ??? If you regularly take a diuretic medicine, make sure to eat at least 1 or 2 servings of fruits or vegetables that are high in potassium each day. These include: ? Avocado. ? Banana. ? [place], prune, carrot, or tomato juice. ? Baked [...] fish oil, or vitamin B6. ??? Take whia-sxm-wowmlkz and prescription medicines only as told by your health (more content not included)... [facility] 08-08-2024 History of Present illness Narrative Subjective [...] CPAP 2009 Peripheral neuropathy Peripheral vascular disease ([facility]) Personal history of medical treatment 2009 infection in foot surgery Polyneuropathy Polyradiculopathy Radiculopathy, lumbosacral region Right bundle branch block Rotator cuff tear, left Skin ulcer of toe of left foot with fat layer exposed ([facility]) Type 2 diabetes mellitus with diabetic nephropathy, without long-term current use of insulin ([facility]/HCC) Type 2 diabetes mellitus with diabetic neuropathic arthropathy, without long-term current use of insulin ([facility]/HCC) Type II diabetes mellitus with neurological manifestations [...] of 1 of the Coflex devices., Uday, [facility] ROTATOR CUFF REPAIR Left 2000 anterior stabilization [...] Review Audit Reviewed by Taisha Gore MA (Guidance And Control System Engineer) on 08/08/24 at 1240 Medication Order Taking? Sig Documenting Provider Last Dose Status allopurinol (Zyloprim) 300 MG tablet [id number] No Take 1 tablet (300 mg) by mouth Daily Khoa Bowles MD Taking Active aspirin 81 MG EC tablet [id number] No Take 81 mg by mouth in the morning. Karli ProviderMD Taking Active biotin 06644 MCG tablet [id number] No 1 (one) time each day at the same time. Karli ProviderMD Taking Active dapagliflozin (Farxiga) 10 MG [id number] No Take 1 tablet (10 mg) by mouth Daily Khoa Bowles MD Taking Active doxycycline (Monodox) 100 MG capsule [id number] No Take 1 capsule (100 mg) by mouth in the morning. Khoa Bowles MD Taking Active fenofibrate (Triglide) 160 MG tablet [id number] No Take 1 tablet (160 mg) by mouth Daily Khoa Bowles MD Taking Active ferrous sulfate 325 (65 Fe) MG tablet [id number] No Take 325 mg by mouth in the morning. Take with meals. Karli ProviderMD Taking Active Flomax 0.4 MG 24 hr capsule [id number] No Take 0.4 mg by mouth in the evening. Karli ProviderMD Taking Active gabapentin (Neurontin) 300 MG capsule [id number] Take 1 capsule (300 mg) by mouth in the morning and 1 capsule (300 mg) before bedtime. SUSANNA Arndt Active hydroCHLOROthiazide (HYDRODiuril) 25 MG tablet [id number] No Take 1 tablet (25 mg) by mouth in the evening Khoa Bowles MD Taking Active insulin glargine (Basaglar KwikPen) 100 UNIT/ML pen [id number] No Inject bid, sliding blood glucose scale with the coverage: <70, zero and eat. 70-150, 10 units. 151-200, 14 units. 201-250, 16 units. 251-300, 18 units. >300, 20 units Khoa Bowles MD Taking Active losartan-hydroCHLOROthiazide (Hyzaar) 100-12.5 MG tablet [id number] No Take 1 tablet by mouth Daily Khoa Bowles MD Taking Active Lutein 20 MG tablet [id number] No 1 (one) time each day at the same time. Historical Provider, Taking Active metFORMIN (Glucophage) 1000 MG tablet [id number] No Take 1 tablet (1,000 mg) by mouth in the morning and 1 tablet (1,000 mg) in the evening. Take with meals. Khoa Bowles MD Taking Active metoprolol tartrate (Lopressor) 50 MG tablet [id number] No Take 1 tablet (50 mg) by mouth in the morning and 1 tablet (50 mg) before bedtime. Khoa Bowles MD Taking Active pen needle 32G x 6 mm ww [facility] [id number] No Use for Injection subcutaneous twice daily Khoa Bowles MD Taking Active sodium bicarbonate 650 MG tablet [id number] No Take 3 tablets by mouth in the morning and 3 tablets before bedtime. Historical Provider, Taking Active spironolactone (Aldactone) 25 MG tablet [id number] No 2 tablets in Am and 1 [...] triceps, wrist extensors, wrist extensors, wrist flexor, veneer drier feeder strength 5/5. LUE Strength deltoid, biceps, triceps, wrist extensors, wrist extensors, wrist flexor, veneer drier feeder strength 5/5. RLE Strength illopsoas, quadriceps, tibialis [...] or worsening symptoms documented in this encounter [facility] 07-24-2024 Telephone encounter Note RX corrected and sent [facility] 07-24-2024 Miscellaneous Notes RX corrected [...] he tried to refill the needles at [facility], they told him that they show the 100 is a 90 day supply for him and will not refill it. He is asking if Dr. Bowles can send an order to [facility] stating how often he test to show how many needles a 90 day supply is. He states he is out of needles and can not check his sugar. documented in this encounter [facility] 07-24-2024 Telephone encounter Note He said he is talking about his pen needles. They are wrote for only one box of 100 for 90 days but he does his medication twice daily and so he needs 200. I am not sure how to fix this script. I pended what I believe would be right if you can look it over please [facility] 07-24-2024 Telephone encounter Note January, I suspect he is talking about testing with the lens sets and test strips. Can you confirm this is what he needs. If so okay to send a prescription for 200 with directions of tests twice a day and as needed. [facility] 07-24-2024 Telephone encounter Note Abelino called, his last fill of needles was for 100. He states that he is suppose to test twice a day. When he tried to refill the needles at [facility], they told him that they show the 100 is a 90 day supply for him and will not refill it. He is asking if Dr. Bowles can send an order to [facility] stating how often he test to show how many needles a 90 day supply is. He states he is out of needles and can not check his sugar. T [facility] 12-09-2023 History of Present illness Narrative Images [...] in the morning., Disp: , Rfl: biotin 39255 MCG tablet, 1 (one) time each day [...] of 1 of the Coflex devices., Uday [facility] ROTATOR CUFF REPAIR Left 1999 anterior stabilization [...] Mood normal. Behavior: Behavior normal. MODIFIER: Q9, 42411, 23482 Assessment/Plan Diagnoses and all orders for this visit: Type II or unspecified type diabetes mellitus with neurological manifestations, not 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) ([facility]) Onychomycosis Hallux limitus, left Acquired keratoderma [...] Tiffanie Enrique DPM documented in this encounter [facility] 07-21-2023 Hospital Discharge instructions Patient [...] include: ?8 oz (237 mL) of milk, hjmwflh-pcjoeupnumqk-vvcfs milk, and calcium-fortifiedfruit juice. Calcium-fortified means that [...] ?Spinach (cooked), rhubarb, beets, sweet potatoes, and Tongan chard. ?Peanuts. ?Potato chips, palauan fries, and baked potatoes with skin on. ?Nuts and nut products. ?Chocolate. If you regularly take a diuretic medicine, make sure to eat at least 1 or 2 servings of fruits or vegetables that are high in potassium each day. These include: ?Avocado. ?Banana. ?[place], prune, carrot, or tomato juice. ?Baked potato. [...] magnesium, fish oil, or vitamin B6. Take dcnj-hei-vpqzlva and prescription medicines only as told by [...] Casseroles. Pizza. Lasagna. Frozen meals. Potato chips. Iraqi fries. The items listed above may not [...] provider. Document Revised: 06/29/2022 Document Reviewed: 06/29/2022 [employer] Patient Education 2022 [employer]. Follow Up Care 05/19/2023 09:51:24 With:NINA LEVY, MELANIE Sims Address: [facility] [address] , [place] [address]- When: Unknown [facility] [place] 01-05-2023 Hospital Discharge instructions Patient [...] include: ?Spinach. ?Rhubarb. ?Beets. ?Potato chips and palauan fries. ?Nuts. If you regularly take a diuretic medicine, make sure to eat at least 1 2 fruits or vegetables high in potassium each day. These include: ?Avocado. ?Banana. ?[place], prune, carrot, or tomato juice. ?Baked potato. [...] Casseroles. Pizza. Lasagna. Frozen meals. Potato chips. Iraqi fries. Summary You can reduce your risk [...] 02/12/2012 Document Revised: 02/07/2020 Document Reviewed: 09/28/2017 Sunrise Patient Education 2020 [employer]. Follow Up Care 10/07/2022 10:58:19 With:NINA LEVY, Madison Crespo, URL Address: [facility] [address] , [place] [address]- When: Unknown [facility] 09-21-2022 Hospital Discharge instructions Patient Education 09/21/2022 [...] urethra. Follow these instructions at home: Take tzne-mur-ibdncva and prescription medicines only as told by [...] 10/18/2006 Document Revised: 09/12/2019 Document Reviewed: 11/22/2017 [employer]rise Patient Education 2020 [employer]. Follow Up Care 12/22/2021 13:03:04 With:Madison BEACH MD, URL Address: [facility] [address] , [place] [address]- When: Unknown [facility] Evaluation + Plan note No data available for this section [facility] Evaluation + Plan note Future Appointments Appointment Date:07/26/2024 01:45:00 PM Scheduled Provider:Madison BEACH MD Location:[facility] Appointment Type:URO Office Visit [facility] Evaluation + Plan note Future Appointments Appointment Date:09/04/2024 12:45:00 PM Scheduled Provider:Madison BEACH MD Location:[facility] Appointment Type:URO Office Visit [facility] Evaluation + Plan note Future Appointments Appointment Date:12/18/2024 10:45:00 AM Scheduled Provider:Madison BEACH MD Location:[facility] Appointment Type:URO Office Visit Diagnostic Tests PendingPSA Total 09/04/24 [facility] Evaluation + Plan note Future Appointments Appointment Date:03/19/2025 11:45:00 AM Scheduled Provider:Madison BEACH MD Location:[facility] Appointment Type:URO Office Visit Diagnostic Tests PendingPSA Total 12/18/24 [facility] Evaluation note No assessment inform ation available [facility] Evaluation note Diagnosis Type II or unspecified type diabetes mellitus with neurological manifestations, not 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) (CMS/[facility])- Primary Type II or unspecified type [...] with neurological manifestations, not 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) (CMS/[facility])- Primary Type II or unspecified type diabetes mellitus with neurological manifestations, not stated as uncontrolled Onychomycosis Dermatophytosis of nail Acquired keratoderma [facility] Diagnosis Diabetic nephropathy associated with type 2 diabetes mellitus (HCC) ([facility]) [facility]* Diagnosis Diabetic neuropathic arthropathy ([facility]) Type II or unspecified type diabetes mellitus with neurological manifestations, not stated as uncontrolled [facility]* Diagnosis Type 2 diabetes mellitus with hyperglycemia, without long-term current use of insulin ([facility]) [facility]* Diagnosis Diabetic neuropathic arthropathy ([facility])- Primary Type II or unspecified type diabetes mellitus with neurological manifestations, not stated as uncontrolled Polyneuropathy due to type 2 diabetes mellitus ([facility]) Primary hypertension ([facility]) Unspecified essential hypertension Peripheral venous insufficiency Unspecified venous (peripheral) insufficiency Diabetic nephropathy associated with type 2 diabetes mellitus (HCC) ([facility]) Type 2 diabetes mellitus with hyperglycemia, without long-term current use of insulin ([facility]) Mixed hyperlipidemia (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)- Primary Type II or unspecified type diabetes mellitus with neurological manifestations, not stated as uncontrolled Onychomycosis Dermatophytosis of nail Acquired keratoderma Callus Corns and callosities [facility]* Diagnosis Primary hypertension Unspecified essential hypertension Mixed hyperlipidemia Mixed hyperlipidemia Hyperuricemia Other abnormal blood chemistry Microalbuminuria Proteinuria Type 2 diabetes mellitus with diabetic microalbuminuria, with long-term current use of insulin ([facility]) Type 2 diabetes mellitus with diabetic polyneuropathy, with long-term current use of insulin ([facility]) Diabetic neuropathic arthropathy ([facility]) Type II or unspecified type diabetes mellitus with neurological manifestations, not stated as uncontrolled Lymphedema of both lower extremities Chronic cellulitis Cellulitis and abscess of unspecified site Polypharmacy Issue of repeat prescriptions Morbid obesity due to excess calories (CMS-HCC) Encounter for Medicare annual wellness exam Advance directive in chart Encounter for screening for other disorder Screening for alcohol problem Screening for alcoholism documented in this encounter [facility]* Diagnosis Encounter for Medicare annual wellness exam- [...] Thrombocytopenia Unspecified thrombocytopenia documented in this encounter [facility] Discharge instructions No data available for this section [facility] [place] note No data available for this section [facility] Chief Complaint and Reason for [...] Documents on File Type Date Recorded 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 Power of Oven Press Tender 03/29/2024 1:37 PM 07-10 POA Advance Directives [...] Provider Active EDWIN ConstantinoC Attending Provider Active Transportation Technician Relationship Specialty Start Date End Date Khoa Bowles MD [address] [place] [phone] PCP - General Family Medicine 04/08/23 Madison Beach MD [address] [place] [address] Referring Physician Urology 12/09/23 Tiffanie Enrique DPM [address] [place], [place] [phone] Referring Physician Podiatry 12/09/23 Transportation Technician Relationship Specialty Start Date End Date Khoa Bowles MD [address] [place] [phone] PCP - General Family Medicine 04/08/23 Khoa Bowles MD [address] [phone] PCP - ACO Reach 12/31/23 Madison Beach MD [address] [place] [phone] Referring Physician Urology 12/09/23 Tiffanie Enrique DPM [address] [place] [address] Referring Physician Podiatry 12/09/23 Transportation Technician Relationship Specialty Start Date End Date Khoa Bowles MD [address] [place] [address] PCP - General Family Medicine 04/08/23 Khoa Bowles MD [address] [place] [place] [phone] (Fax) PCP - ACO Reach 12/31/23 Madison Beach MD [address] [place] [phone] Referring Physician Urology 12/09/23 Tiffanie Enrique DPM [address] [place] [address] Referring Physician Podiatry 12/09/23 Transportation Technician Relationship Specialty Start Date End Date Khoa Bowles MD [address] [facility] [place] [address] PCP - General Family Medicine 04/08/23 Khoa Bowles MD [address] [place] [place] [phone] PCP - ACO Reach 12/31/23 Madison Beach MD [address] [place], [place] [phone] Referring Physician Urology 12/09/23 Tiffanie Enrique DPM [address] [place] [address] Referring Physician Podiatry 12/09/23 Transportation Technician Relationship Specialty Start Date End Date Khoa Bowles MD (Fax) PCP - General Family Medicine 04/08/23 Khoa Bowles MD [address] [phone] (Fax) PCP - ACO Reach 12/31/23 Madison Beach MD [address] [place] [address] Referring Physician Urology 12/09/23 Tiffanie Enrique DPM [address] [place], [place] [phone] Referring Physician Podiatry 12/09/23 Transportation Technician Relationship Specialty Start Date End Date Khoa Bowles MD [address] [place] [address] (Fax) PCP - ACO Reach 12/31/23 Madison Beach MD [address] [place] [address] Referring Physician Urology 12/09/23 Tiffanie Enrique DPM [address] [place] [address] Referring Physician Podiatry 12/09/23 Transportation Technician Relationship Specialty Start Date End Date Khoa Bowles MD [address] [address] PCP - ACO Reach 12/31/23 Madison Beach MD [address] [place] [address] Referring Physician Urology 12/09/23 Tiffanie Enrique DPM [address] [place] [address] Referring Physician Podiatry 12/09/23 Transportation Technician Relationship Specialty Start Date End Date Khoa Bowles MD [address] [place] [address] PCP - ACO Reach 12/31/23 Madison Beach MD [address] [place] [address] Referring Physician Urology 12/09/23 Tiffanie Enrique DPM [address] [place] [address] Referring Physician Podiatry 12/09/23 Transportation Technician Relationship Specialty Start Date End Date Khoa Bowles MD [address] [place] [address] PCP - General Family Medicine 04/08/23 Khoa Bowles MD [address] [place] [address] PCP - ACO Reach 12/31/23 Madison Beach MD [address] [place] [address] Referring Physician Urology 12/09/23 Tiffanie Enrique DPM [address] [place] [address] Referring Physician Podiatry 12/09/23 Transportation Technician Relationship Specialty Start Date End Date Khoa Bowles MD [address] [place] [address] (Fax) PCP - ACO Reach 12/31/23 Madison Beach MD [address] [place] [address] Referring Physician Urology 12/09/23 Tiffanie Enrique DPM [address] [place] [address] Referring Physician Podiatry 12/09/23 Transportation Technician Relationship Specialty Start Date End Date Khoa Bowles MD [address] [place] [address] (Fax) PCP - ACO Reach 12/31/23 Madison Beach MD [address] [place] [address] Referring Physician Urology 12/09/23 Tiffanie Enrique DPM [address] [place] [address] Referring Physician Podiatry 12/09/23 Transportation Technician Relationship Specialty Start Date End Date Khoa Bowles MD [address] [place] [address] (Fax) PCP - ACO Reach 12/31/23 Madison Beach MD [address] [place] [address] Referring Physician Urology 12/09/23 Tiffanie Enrique DPM [address] [place] [address] Referring Physician Podiatry 12/09/23 Transportation Technician Relationship Specialty Start Date End Date Khoa Bowles MD [address] [place] [address] (Fax) PCP - ACO Reach 12/31/23 Madison Beach MD [address] [place] [address] Referring Physician Urology 12/09/23 Tiffanie Enrique DPM [address] [place] [address] Referring Physician Podiatry 12/09/23 Transportation Technician Relationship Specialty Start Date End Date Khoa Bowles MD [address] [place] [address] (Fax) PCP - ACO Reach 12/31/23 Khoa Bowles MD [address] [place] [address] (Fax) PCP - General Family Medicine 12/27/24 Madison Beach MD [address] [place] [address] Referring Physician Urology 12/09/23 Tiffanie Enrique DPM [address] [place] [address] Referring Physician Podiatry 12/09/23 Transportation Technician Relationship Specialty Start Date End Date Khoa Bowles MD [address] [place] [address] PCP - ACO Reach 12/31/23 Khoa Bowles MD [address] [place] [address] (Fax) PCP - General Family Medicine 12/27/24 Madison Beach MD [address] [place] [address] Referring Physician Urology 12/09/23 Tiffanie Enrique DPM [address] [place] [address] Referring Physician Podiatry 12/09/23 Transportation Technician Relationship Specialty Start Date End Date Khoa Bowles MD [address] [address] (Fax) PCP - ACO Reach 12/31/23 Khoa Bowles MD [address] [address] (Fax) PCP - General Family Medicine 12/27/24 Madison Beach MD [address] [place] [address] Referring Physician Urology 12/09/23 Tiffanie Enrique DPM [address] [place] [address] Referring Physician Podiatry 12/09/23 Transportation Technician Relationship Specialty Start Date End Date Khoa Bowles MD [address] [address] (Fax) PCP - ACO Reach 12/31/23 Khoa Bowles MD [address] [address] (Fax) PCP - General Family Medicine 12/27/24 Madison Beach MD [address] [place] [address] Referring Physician Urology 12/09/23 Tiffanie Enrique DPM [address] [place] [address] Referring Physician Podiatry 12/09/23 Larissa Leavitt, RN Registered Nurse Family Medicine 02/13/25 Transportation Technician Relationship Specialty Start Date End Date Khoa Bowles MD [address] [place] [address] (Fax) PCP - ACO Reach 12/31/23 Khoa Bowles MD [address] [place] [address] (Fax) PCP - General Family Medicine 12/27/24 Madison Beach MD [address] [place] [address] Referring Physician Urology 12/09/23 Tiffanie Enrique DPM [address] [place] [address] Referring Physician Podiatry 12/09/23 Larissa Leavitt, RN Registered Nurse Family Medicine 02/13/25 Transportation Technician Relationship Specialty Start Date End Date Khoa Bowles MD [address] [place] [address] (Fax) PCP - ACO Reach 12/31/23 Khoa Bowles MD [address] [place] [address] (Fax) PCP - General Family Medicine 12/27/24 Madison Beach MD [address] [place] [address] Referring Physician Urology 12/09/23 Tiffanie Enrique DPM [address] [place] [address] Referring Physician Podiatry 12/09/23 Larissa Leavitt, RN Registered Nurse Family Medicine 02/13/25 Transportation Technician Relationship Specialty Start Date End Date Khoa Bowles MD [address] [place] [address] (Fax) PCP - ACO Reach 12/31/23 Khoa Bowles MD [address] [place] [address] (Fax) PCP - General Family Medicine 12/27/24 Madison Beach MD [address] [place] [address] Referring Physician Urology 12/09/23 Tiffanie Enrique DPM [address] [place] [address] Referring Physician Podiatry 12/09/23 Larissa Leavitt, CORDELL Registered Nurse Family Medicine 02/13/25 Transportation Technician Relationship Specialty Start Date End Date Khoa Bowles MD [address] [place] [address] PCP - ACO Reach 12/31/23 Khoa Bowles MD [address] [place] [address] PCP - General Family Medicine 12/27/24 Madison Beach MD [address] [place] [address] Referring Physician Urology 12/09/23 Tiffanie Enrique DPM [address] [place] [address] Referring Physician Podiatry 12/09/23 Larissa Leavitt RN [address] [place] [address] Registered Nurse Family Medicine 02/13/25 Transportation Technician Relationship Specialty Start Date End Date Khoa Bowles MD [address] [place] [address] PCP - ACO Reach 12/31/23 Khoa Bowles MD [address] [place] [address] PCP - General Family Medicine 12/27/24 Madison Beach MD [address] [place] [address] Referring Physician Urology 12/09/23 Tiffanie Enrique DPM [address] [place] [address] Referring Physician Podiatry 12/09/23 Larissa Leavitt RN [address] [place] [address] Registered Nurse Family Medicine 02/13/25 Transportation Technician Relationship Specialty Start Date End Date Khoa Bowles MD [address] [place] [address] (Fax) PCP - ACO Reach 12/31/23 Khoa Bowles MD [address] [place] [address] (Fax) PCP - General Family Medicine 12/27/24 Madison Beach MD [address] [place] [address] Referring Physician Urology 12/09/23 Tiffanie Enrique DPM [address] [place] [address] Referring Physician Podiatry 12/09/23 Larissa Leavitt, RN [address] [place] [address] Registered Nurse Family Medicine 02/13/25 Transportation Technician Relationship Specialty Start Date End Date Khoa Bowles MD [address] [place] [address] (Fax) PCP - ACO Reach 12/31/23 Khoa Bowles MD [address] [place] [address] (Fax) PCP - General Family Medicine 12/27/24 Madison Beach MD [address] [place] [address] Referring Physician Urology 12/09/23 Tiffanie Enrique DPM [address] [place] [address] Referring Physician Podiatry 12/09/23 Larissa Leavitt, RN [address] [facility] [address] [place] [address] Registered Nurse Family Medicine 02/13/25 Callie Mora MD [address] [place] [address] Referring Physician General Surgery 05/07/25 [place] [address] [place] [address] Referring Physician Ophthalmology 05/07/25 Shani Mohan DO [address] [facility] [address] [place] [address] Referring Physician Neurology 05/07/25 (unrecognized sect ion and content) No Status Records FoundNo Status Records FoundNo Status Records FoundNo Status Records FoundNo Status Records FoundNo Status Records Found INFORMATION SOURCE (unrecogn ized section and content) DATE CREATED AUTHOR 02/14/2023 [facility] DATE CREATED AUTHOR AUTHOR'S ORGANIZ ATION 05/21/2024 [facility] DATE CREATED AUTHOR AUTHOR'S ORGANIZ ATION 05/31/2024 [facility] DATE CREATED AUTHOR AUTHOR'S ORGANIZ ATION 05/10/2025 [facility] DATE CREATED AUTHOR AUTHOR'S ORGANIZ ATION 05/14/2025 [facility] DATE CREATED AUTHOR AUTHOR'S ORGANIZ ATION 05/21/2025 [facility] Reason for Visit (unrecogniz ed section and content) Reason Comments Nail care Manuel Balderas is a 73 y.o. male. Established pt presents today for diabetic nail care. PCP: Dr. Bowles LV 11/04/2023, A1C: 7.6 (07/27/23),BS: 168 SS: 12). Reason Comments Polyradiculopathy Reason Comments DM Foot Care PCP: Dr. Bowles 05/02/24, A1C: 6.6, BS: 131, SS: 12 [...] BS: 131, SS: 12 Reason Comments Follow-up Reason Comments Nail care Manuel Balderas is a 75 y.o. male who presents for Nail care. Patient relates he started Pain management with [facility] for left ankle. PCP: Dr. Bowles 10/31/2025 A1C: 6.6, BS: 143, SS: 12 Reason Comments Hypertension Hyperlipidemia Diabetes Reason Comments Annual Exam FOR RECORDS PERTAINING TO PATIENTS WHO ARE [...] BE BASED ON THE PRIMARY CLINICAL RECORDS. [employer] provides no warranty or guarantee of the accuracy or completeness of information in this document.
[2025-05-22 08:14] VITALS: BP 123/64; PULSE 67; TEMP 36.2; O2SAT 97
[2025-05-22] MEDS: GENTAMICIN SULFATE 80 MG/2 ML VIAL 120 MG IM (08:16)
[2025-05-22] MEDS: LIDOCAINE 2% JELLY 20 ML UR (08:52)
[2025-05-22] MEDS: LIDOCAINE HCL 1% 100 MG/10 ML MDV INJ (08:58)
--- NOTE | 2025-05-22 09:16 | PM.URSON ---
Urology Surgery Operative Note Operative Note Procedure Date: 05/22/25 Time Out Performed: yes Pre-op Diagnosis: Elevated PSA and prostate lesions by MRI Post-op Diagnosis: same as pre-op Procedures performed: 1. Prostate transrectal MRI fusion biopsies Anesthesia: local and other (Periprosthetic block) Primary Surgeon: Jude Beach Complications: None Estimated blood loss (mL): 10 Findings: Large prostate Specimens: 1. 6 biopsies from area of interest #1. 2. 6 biopsies from area of interest #2. 3. 6 biopsies from each side and a mapped out fashion. Indications for Procedures: This gentleman has an elevated PSA of 5.8 and concerning prostate lesions by MRI. He now presents for transrectal MRI fusion prostate biopsies. He has signed an informed consent after risks were explained. Some of these risks include bleeding, infection, urosepsis, anesthesia to name a few. Detailed description of Procedure: The patient was kept on the [facility] bed and brought into the operating room. He was rotated into the left lateral decubitus position. A timeout was done by all parties in the room. We all agreed upon the patient's identification and the planned procedures for this patient. The patient's rectum was swabbed with Betadine soaked sponges. We then passed 2% lidocaine jelly per rectum. The ultrasound probe from the Navigo system was passed per rectum. The prostate was scanned in the transverse view. Segmentation was done so as to refuse the MRI images onto the live ultrasound. While in the sagittal view we then did a periprosthetic block with 1% plain lidocaine in the usual fashion. We then lined up the first area of interest and we took 6 biopsies from this area and sent them separately labeled area of interest #1. We then lined up the second area of interest and similarly took 6 biopsies from this area and these were sent separately labeled area of interest #2. We then did mapped out biopsies and going from the base towards the apex. We started on the left side and took 6 biopsies in the usual fashion. We then did a similar maneuver on the right side. At the end of the procedure we had 24 satisfactory course. The probe was removed. He was then discharged to home. He was instructed to go to an ER for IV antibiotics if he gets a fever near 101 or shaking chills that will not stop. He knows to continue his quinolone antibiotic course.
== END 2025-05-22 09:31 | disposition home or self-care (01) ==
PROVIDERS: PCP Family Medicine; Visit Provider Urology
PROC: (CPT 55700; principal; 2025-05-22 08:30)
DX: C61 Malignant neoplasm of prostate (principal); R97.20 Elevated prostate specific antigen [PSA]; N42.9 Disorder of prostate, unspecified; Z86.718 Personal history of other venous thrombosis and embolism; E11.9 Type 2 diabetes mellitus without complications; I10 Essential (primary) hypertension; E78.5 Hyperlipidemia, unspecified; Z87.442 Personal history of urinary calculi; N32.81 Overactive bladder; Z80.42 Family history of malignant neoplasm of prostate; Z79.84 Long term (current) use of oral hypoglycemic drugs
CPT/HCPCS: 55700; J1580

== ENCOUNTER 2025-07-23 13:57 | Outpatient (OUT) | payer MEDICARE, SELFPAY ==
--- OUTSIDE RECORDS SUMMARY | 2025-07-12 13:00 | XMS_ITS | Encounter Summary ---
Author Organization [facility] Address [address] [place] [address] Care Team Providers Care Metal Window Screen Assembler Name Role Phone Jude Beach MD Unavailable [phone] Tiffanie Smyth DPM Unavailable [phone] Khoa Godinez MD Unavailable [phone] Khoa Godinez MD Primary Care Provider [phone] Larissa Leavitt RN Unavailable [phone] Callie Mora MD Unavailable [phone] Skinny White MD Unavailable [phone] Shani Mohan DO Unavailable [phone] Reason for Visit * Reason Comments Nail care Manuel Balderas is a 75 y.o. male who presents for Nail care. Patient relates he started Pain management with [facility] for left ankle. PCP: Dr. Godinez 05/07/2025 A1C: 6.6, BS: 150, SS: 12. Encounter Details Date Type Department Care Team (Latest Contact Info) Description 07/12/2025 1:00 PM EDT Procedure Visit [facility] [address] [address] Tiffanie Smyth, DPM [address] [place] [address] Onychomycosis (Primary Dx); Type II or unspecified type diabetes mellitus with neurological manifestations, not 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) (HCC); Acquired keratoderma Social History Tobacco Use Types Packs/Day Years Used Date Smoking Tobacco: Never Tobacco Cessation:Counseling Given: Not Answered Alcohol Use Standard Drinks/Week Comments Never 0 (1 standard drink = 0.6 oz pur e alcohol) Caffeine intake: none B1300 Health Literacy Answer Date Recor ded How often do you need to hav e someone help you when you read instructions, pamphlets, or other written material from your doctor or pharmacy? Never 06/18/2025 Social Connection and Isolat ion Panel [NHANES] Answer Date Recorded In a typical week, how many times do you talk on the phone with family, friends, or neighbors? Never 06/18/2025 How often do you get togethe r with friends or relatives? Once a week 06/18/2025 How often do you attend chur or mu-ism services? More than 4 times per year 06/18/2025 Do you belong to any clubs o r organizations such as druze groups, unions, fraternal or athletic groups, or school groups? No 06/18/2025 How often do you attend meet ings of the clubs or organizations you belong to? Never 06/18/2025 Are you , , di vorced, , never , or living with a partner? 06/18/2025 AUDIT-C Answer Date Recorded Q1: How often do you have a drink containing alcohol? Never 06/18/2025 Q2: How many drinks containi ng alcohol do you have on a typical day when you are drinking? Patient does not drink Q3: How often do you have si x or more drinks on one occasion? Never 06/18/2025 Overall Financial Resource Strain (CARDIA) Answe r Date Recorded How hard is it for you to pa y for the very basics like food, housing, medical care, and heating? Not hard at all 06/18/2025 PHQ-2 Answer Date Recorded Patient Health Questionnaire-2 Score 0 05/07/2025 [facility] - Occupational Stress Questionnaire Answer Date Recorded Do you feel stress - tense, restless, nervous, or anxious, or unable to sleep at night because your mind is troubled all the time - these days? Not at all 06/18/2025 Exercise Vital Sign Answer Date Recorde d On average, how many days pe r week do you engage in moderate to strenuous exercise (like a brisk walk)? 4 days 06/18/2025 On average, how many minutes do you engage in exercise at this level? 10 min 06/18/2025 Hunger Vital Sign Answer Date Recorded Within the past 12 months, y ou worried that your food would run out before you got the money to buy more. Never true 06/18/20 25 Within the past 12 months, t he food you bought just didn't last and you didn't have money to get more. Never true 06/18/2025 PRAPARE - Transportation Answer Date Re corded In the past 12 months, has l ack of transportation kept you from medical appointments or from getting medications? No 06/01 In the past 12 months, has l ack of transportation kept you from meetings, work, or from getting things needed for daily living? No 06/18/2025 Housing Stability Vital Sign Answer Calvin e Recorded In the last 12 months, was t here a time when you were not able to pay the mortgage or rent on time? No 06/18/2025 In the past 12 months, how m any times have you moved where you were living? 0 06/18/2025 At any time in the past 12 m [facility], were you homeless or living in a fci (including now)? No 06/18/2025 Sex and Gender Information Value Date Recorded [...] Sign Reading Time Taken Comments Blood Pressure - - Pulse - - Temperature - - Respiratory Rate - - Oxygen Saturation - - Inhaled Oxygen Concentration - - Weight 127 kg (281 lb) 07/12/2025 12:54 PM EDT Height 185.4 cm (6' 1 ) 07/12/2025 12:54 PM EDT Body Mass Index 37.07 07/12/2025 12:54 PM EDT documented in this encounter Progress Notes * Tiffanie Smyth DPM - 07/12/2025 1:00 PM EDT Images from the original note were not included. Subjective Patient ID: Manuel Balderas is a 75 y.o. male who presents for Nail care (Manuel Balderas is a 75 y.o. male who presents for Nail care. Patient relates he started Pain management with [facility] for left ankle. PCP: Dr. Herbert HERNANDEZ 05/07/2025 A1C: 6.6, BS: 150, SS: 12.). Established patient returns requesting nail debridement. He states nails are thick, elongated, fungal. He does not have any calluses currently that required debridement. Review of Systems Current Outpatient Medications: allopurinol (Zyloprim) 300 MG tablet, Take 300 mg by mouth Daily, Disp: , Rfl: aspirin 81 MG EC tablet, Take 81 mg by mouth in the morning., Disp: , Rfl: biotin 11295 MCG tablet, Take 1 tablet by mouth [...] Disp: 90 capsule, Rfl: 3 DULoxetine (Cymbalta) [address] capsule, Take 60 mg by mouth in the morning and 60 mg before bedtime., Disp: , Rfl: fenofibrate (Triglide) 160 MG tablet, Take 1 tablet (160 mg) by mouth Daily, Disp: 90 tablet, Rfl: 1 ferrous sulfate 325 (65 Fe) MG tablet, Take 325 mg by mouth in the morning. Take with meals., Disp:, Rfl: Flomax 0.4 MG 24 hr capsule, Take 0.4 mg by mouth in the evening., Disp: , Rfl: Glucose Blood (Blood Glucose Test Strips 333) strip, 1 strip by In Vitro route in the morning and 1strip in the evening. Take before meals., Disp: 200 strip, Rfl: 3 hydroCHLOROthiazide (HYDRODiuril) 25 MG [...] in the evening. Take before meals., Disp: 200 each, Rfl: 3 losartan-hydroCHLOROthiazide (Hyzaar) 100-12.5 MG [...] 1 tablet in PM, Disp: 270 tablet, Rfl:1 VESIcare 10 MG tablet, Take 10 mg [...] removal of 1 of the Coflex devices.[facility] PROSTATE SURGERY 05/22/2025 Prostate Transrectal MRI Fusion Bx, Dr Beach ROTATOR CUFF REPAIR Left 1999 anterior stabilization [...] on this left lower extremity. Limited STJ ROMR. Adequate AJ ROM R. 1st MTPJ ROM is limited on the L, no hard end ROM feel, no crepitus. There isno HIPJ dorsiflexion available. DEFORMITIES: prominent medial navicular [...] Diffuse callus noted WB surface of L heel. NAIL PATHOLOGY:R hallux has been permanently removed [...] Mood normal. Behavior: Behavior normal. MODIFIER: Q9, [address], [address] Assessment/Plan ICD-10-CM 1. Onychomycosis B35.1 2. Type II or unspecified type diabetes mellitus with neurological manifestations, not 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) ([facility]) E11.49 3. Acquired keratoderma L85.1 Conservative and palliative care implemented as per request. Under aseptic technique all nails debrided with large and small nail nippers, curette and power dayna. Onychodebridement in length and thickness with the goals of relief of pain, reducing risks of infection, ulceration or pain. Well tolerated and expresses appreciation for care given. Feet inspected and hygiene discussed This note was created with the assistance of a speech recognition program. While intending to generate a timely document that accurately reflects the content of the visit, no guarantee can be provided that every grammatical or spelling mistake has been or will be identified or corrected. Thank you for your understanding. Tiffanie Smyth DPM Review of Systems documented in this encounter Plan of Treatment Upcoming Encounters Date Type Department Care Team (Late st Contact Info) Description 10/11/2025 10:45 AM EST Procedure Visit [facility] [address] [place] [id number] Tiffanie Smyth DPM [address] [place], [place] [address] 10/22/2025 2:30 PM EST [facility] [address] [facility] [address] [place] [address] Khoa Godinez MD 112 [facility] 100 [place] [address] (Fax) documented as of this encounter Visit Diagnoses Diagnosis Onychomycosis- Primary Dermatophytosis of nail Type II or unspecified type diabetes mellitus with neurological manifestations, not 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) (HCC) Type II or unspecified type diabetes mellitus with neurological manifestations, not stated as uncontrolled Acquired keratoderma documented in this encounter Additional Health Concerns Assessment Noted Time PHQ-9 Depression Total Score: 1 05/07/20 25 10:00 AM EDT documented as of this encounter Care Teams Metal Window Screen Assembler Relationship Specialty Start Date End Date Khoa Godinez MD [address] [place] [address] (Fax) PCP - ACO Reach 12/31/23 Khoa Godinez MD [address] [address] PCP - General Family Medicine 12/27/24 Jude Beach MD [address] [place], [place] [address] Referring Physician Urology 12/09/23 Tiffanie Smyth DPM [address] [place] [address] Referring Physician Podiatry 12/09/23 Larissa Leavitt, CORDELL [address] [place] [address] Registered Nurse Family Medicine 02/13/25 Callie Mora MD [address] [facility] [place] [address] Referring Physician General Surgery 05/07/25 Skinny White MD [address] [place] [address] Referring Physician Ophthalmology 05/07/25 Shani Mohan DO [address] [address] Referring Physician Neurology 05/07/25 documented as of this encounter
--- OUTSIDE RECORDS SUMMARY | 2025-07-19 16:30 | XMS_ITS | Encounter Summary ---
Author Organization [facility] Address [address] [place] [address] Care Team Providers Care Bindery Operator Name Role Phone Jude Beach MD Unavailable [phone] Tiffanie Smyth DPM Unavailable [phone] Khoa Godinez MD Unavailable [phone] Khoa Godinez MD Primary Care Provider [phone] Larissa Leavitt RN Unavailable [phone] Callie Mora MD Unavailable [phone] Skinny White MD Unavailable [phone] Shani Mohan DO Unavailable [phone] Reason for Referral * Imaging (Routine) - Authorized Specialty Diagnoses / Procedures Referred By Contac t Referred To Contact Radiology Diagnoses Syncope, unspecified syncope type Right bundle branch block Procedures Holter monitor Khoa Godinez MD 112 [facility] [address] [place] [address] Phone: tel: fax: [employer] [address] [place] [address] Phone: tel: fax: Referral ID Status Reason Start Date Expiration Date V isits Requested Visits Authorized [id number] Authorized 07/19/2025 01/15/2026 1 1 Reason for Visit * Reason Comments Follow-up Encounter Details Date Type Department Care Team (Late st Contact Info) Description 07/19/2025 4:30 PM EDT Office Visit [facility] 112 [facility] [address] [place] [address] Khoa Godinez MD 112 [facility] [address] [place] [address] Syncope, unspecified syncope type (Primary Dx); Right bundle branch block; Vertigo; Encounter for examination following treatment at hospital; Morbid obesity due to excess calories ([facility]HCC); Lymphedema of both lower extremities Social History [...] 06/18/2025 How often do you attend chur ch or buddhism services? More than 4 times per year 06/18/2025 Do you belong to any clubs o r organizations such as advent groups, unions, fraternal or athletic groups, or [...] Recorded Patient Health Questionnaire-2 Score 0 05/07/2025 [facility] Occupat [facility] - Occupational Stress Questionnaire Answer Date Recorded [...] any time in the past 12 m [facility], were you homeless or living in a usp (including now)? No 06/18/2025 Sex and Gender [...] Taken Comments Blood Pressure - - Pulse 75 07/19/2025 4:14 PM EDT Temperature - - Respiratory Rate - - Oxygen Saturation 95% 07/19/2025 4:14 PM EDT Inhaled Oxygen Concentration - - Weight 127 kg (281 lb) 07/19/2025 4:14 PM EDT Height 185.4 cm (6' 1 ) 07/19/2025 4:14 PM EDT Body Mass Index 37.07 07/19/2025 4:14 PM EDT documented in this encounter Progress Notes * Khoa Godinez MD - 07/19/2025 4:30 PM EDT Images from the original note were not included. Patient ID: Manuel Balderas is a 75 y.o. male who presents for: Flowsheet Row Patient Outreach from 07/16/2025 in [facility] with Larissa Leavitt RN Hospital Information ED, Hospital or Shelter Facility Discharge? ED Patient has been contacted within 2 days of being seen in the ED Yes Diagnosis Vertigo Discharge Date 07/13/25 Discharged To: Home Setting Discharge Hospital [facility] Engagement Call Start Time 1705 Admission Date 07/13/25 Medications Discharge medications reviewed and reconciled from hospital? Yes Is the patient having any side effects they believe may be caused by any medication additions or changes? No Does the patient have all medications ordered at discharge? Yes Nursing Interventions No intervention needed Prescription Comments Meclizine Is the patient taking all medications as directed (includes completed medication regime)? Yes Appointments Does the patient have a primary care provider? Yes Nursing Interventions Verified appointment date/time/provider Does the patient have any upcoming specialty appointments? Yes Nursing Interventions Advised patient to keep appointment Self Management Does patient have home health? no Patient Teaching Does the patient have access to their discharge instructions? Yes [spoke to Jayme, pt's ] Nursing Interventions Reviewed instructions with patient What is the patient's perception of their health status since discharge? Improving Is the patient/caregiver able to teach back the hierarchy of who to call/visit for symptoms/problems? PCP, Specialist, Home Health nurse, Urgent Care, ED, 911 Yes Wrap Up Is the patient/caregiver familiar with Advance Care Planning? Yes Would the patient like more information on Advance Care Planning? No Wrap Up Additional Comments Pt presented to the ER, reported spinning, dizziness. Test: labs, urinalysis, CT head/brain wo con, CT angio head/neck. Given a liter of fluids and Meclizine. spinning resolved. Call End Time 1721 Review of Systems Denies any palpitations. Denies any injuries to the head or neck. Objective The patient is pleasant and in no acute distress. The neck is supple and trachea is midline. No masses are appreciated. The heart is regular rate and rhythm , with the exception of 1 PVC beat, without S3, S4. No murmur.I was actually unable to hear the previously diagnosed heart murmur today The patient has normal respiratory pattern. The breath sounds are symmetrical without evidence of rhonchi or rales. No wheezing. The skin is warm and dry. The lower extremities have 1+ edema. The patient has good eye contact and speech is clear. Appropriate affect. He should me twice that he lifted his head and he turned to the right like he was reaching for something. These were fairly quick motions but did not really bother him here today in the emergency room. This is what led to the syncopal episode. 07/12/2025 12:54 PM 05/07/2025 11:04 AM 04/26/2025 2:48 PM 04/05/2025 1:00 PM Vitals BMI 37.07 kg/m2 37.07 kg/m2 37.07 kg/m2 37.07 kg/m2 BSA (m2) 2.56 m2 2.56 m2 2.56 m2 2.56 m2 Systolic 120 124 Diastolic 68 70 Heart Rate 71 68 SpO2 96 % 97 % Height (in) 6' 1 6' 1 6' 1 6' 1 Weight (lb) 281 281 281 281 Visit Report Report Report Allergies Allergen Reactions Meperidine Other Reaction(s): Other: See Comments shakes Meperidine Hcl Other Reaction(s): Shakes, shakes Pioglitazone Swelling Current Outpatient Medications on File Prior to Visit Medication Sig Dispense Refill allopurinol (Zyloprim) 300 MG tablet Take 300 mg by mouth Daily aspirin 81 MG EC tablet Take 81 mg by mouth in the morning. biotin 91409 MCG tablet Take 1 tablet by mouth in the morning and 1 tablet before bedtime. Blood Glucose Monitoring Suppl (Blood Glucose Monitoring 333) device 1 Device continuously Accucheck dapagliflozin (Farxiga) 10 MG Take 1 tablet (10 mg) by mouth Daily 90 tablet 1 doxycycline (Monodox) 100 MG capsule Take 1 capsule (100 mg) by mouth Daily 90 capsule 3 DULoxetine (Cymbalta) [address] capsule Take 60 mg by mouth in the morning and 60 mg before bedtime. fenofibrate (Triglide) 160 MG [...] evening. Take before meals. 200 strip 3 hydroCHLOROthiazide (HYDRODiuril) 25 MG tablet Take 1 [...] evening. Take before meals. 200 each 3 losartan-hydroCHLOROthiazide (Hyzaar) 100-12.5 MG tablet Take 1 tablet by mouth Daily 90 tablet 1 Lutein 20 MG tablet 1 (one) time each day at the same time. meclizine (Antivert) 25 MG tablet Take 25 mg by mouth 3 (three) times a day as needed for dizziness metFORMIN (Glucophage) 1000 MG tablet Take 1 tablet (1,000 mg) by mouth in the morning and 1 tablet(1,000 mg) in the evening. Take with meals. [...] medications on file prior to visit. 1. Syncope, unspecified syncope type (Primary) This did sound sort of like vertigo to me but he also notes that he just InStent lost consciousnessand fell. He did not feel like he fell secondary to the vertigo. Because of the drop component while the vertigo may have played a role it would not be causative inthe loss of consciousness in my opinion. I suspect this to be more cardiac etiology and we will proceed with Holter monitor has a fairly extensive cardiovascular workup was performed in the ER and reviewed today. - Holter monitor; Future - Holter monitor 2. Right bundle branch block Chronic comorbid condition that complicates differential diagnosis - Holter monitor; Future - Holter monitor 3. Vertigo I do think he has a this and for now we really talked about not moving his head as fast as he has done it several times here in the office. I did discuss with them to pay attention how much vertigo he has. If there is no significant findings on the Holter monitor we may send him over to physical therapy for an evaluation. 4. Encounter for examination following treatment at [...] transition of care note is reviewed. a [id number] evaluation is done today. Medical decision making is complex in degree. 5. Morbid obesity due to excess calories (CMS-HCC) Encouraged lifestyle changes 6. Lymphedema of both lower extremities He would like to get a lift chair that goes up the stairs from the basement. He is starting to havetrouble and this is not unreasonable say can continue to do activities in his home. - Misc. Devices misc; 1 each continuously Dispense: 1 each; Refill: 0 Please Note: Portions of this chart may have been created using voice recognition software. Occasionally a wrong-word or sound-like substitutions may have occurred due to inherent limitations of the voice recognition software. Please read the chart carefully and recognize, using context, where the substitutions may have occurred. documented in this encounter Plan of Treatment Upcoming Encounters Date Type Department Care Team (Late st Contact Info) Description 10/11/2025 10:45 AM EST Procedure Visit [facility] [address] [place] [id number] Tiffanie Smyth DPWei [address] [facility] [place] [address] 10/22/2025 2:30 PM EST Office Visit [facility] [address] [address] Khoa Godinez MD [address] [address] Scheduled Orders Name Type Priority Associated Diagnoses Orde r Schedule Holter monitor Imaging Routine Syncope, unspecified syncope type Right bundle branch block Expected: 07/19/2025 (Approximate), Expires: 07/19/2026 documented as of this encounter Visit Diagnoses Diagnosis Syncope, unspecified syncope type- Primary Right bundle branch block Vertigo Dizziness and giddiness Encounter for examination following treatment at hospital Morbid obesity due to excess calories ([facility]) Lymphedema of both lower extremities documented in this encounter Additional Health Concerns Assessment Noted Time PHQ-9 Depression Total Score: 1 05/07/20 25 10:00 AM EDT documented as of this encounter Care Teams Bindery Operator Relationship Specialty Start Date End Date Khoa Godinez MD [address] [address] (Fax) PCP - ACO Reach 12/31/23 Khoa Godinez MD [address] [address] PCP - General Family Medicine 12/27/24 Jude Beach MD [address] [place], [place] [id number] Referring Physician Urology 12/09/23 Tiffanie Smyth DPM [address] [place] [address] Referring Physician Podiatry 12/09/23 Larissa Leavitt, RN [address] [place] [address] Registered Nurse Family Medicine 02/13/25 Callie Mora MD [address] [facility] [place], [place] [id number] Referring Physician General Surgery 05/07/25 Skinny White MD [address] [place] [address] Referring Physician Ophthalmology 05/07/25 Shani Mohan DO 703 [facility] [address] [place] [id number] Referring Physician Neurology 05/07/25 documented as of this encounter
--- OUTSIDE RECORDS SUMMARY | 2025-07-23 14:01 | XMS_ITS | Clinical Summary ---
Author Organization [employer] Address [id number] [address] [place] [address] Care Team Providers Care Sharepoint Application Developer Name Role Phone Khoa Godinez MD Primary Care Provider [phone] Allergies Active Allergy Reactions Criticality Noted Date [...] BICARBONATE ORAL Take 650 mg by mouth in the morning and 650 mg at noon and 650 mg before bedtime. Active tamsulosin (FLOMAX) 0.4 mg capsule,extended release [...] mouth 3 (three) times a day. Active FA/MV,CA,IRON,DC N/LYCOPENE/LUT (MULTIVITAL ORAL) Take by mouth. Active [...] total) by mouth in the morning. Active dapagliflozin propanediol (FARXIGA) 10 mg tablet Take 1 tablet (10 mg total) by mouth in the morning. Active DULoxetine (CYMBALTA) 60 mg capsule Take 1 capsule (60 mg total) by mouth in the morning and 1 capsule (60 mg total) before bedtime. Active Active Problems Problem Noted Date Diagnosed [...] EDT): Continue compression stockings. Venous duplex ultrasound. Encounters Date Type Department Care Team Description 07/06/2025 1:22 PM EDT - 07/06/2025 11:59 PM EDT Hospital Encounter [facility] [address] [place] [address] Claudication Discharge Disposition: Home 07/06/2025 1:18 PM EDT - 07/06/2025 1:21 PM EDT Hospital Encounter [facility] [address] [place] [address] Claudication Discharge Disposition: Home 07/06/2025 Travel 06/28/2025 10:15 AM EDT Office Visit [facility] [address] [place] [address] Precious Maya, BRY-FIDEL Claudication (Primary Dx); Varicose veins of bilateral lower extremities with pain; Lipodermatosclerosis of both lower extremities 06/27/2025 2:49 PM EDT - 06/27/2025 11:59 PM EDT Hospital Encounter [facility] [address] [place] [address] Callie Mora MD Varicose veins of bilateral lower extremities with pain; Lipodermatosclerosis of both lower extremities Discharge Disposition: Home 06/27/2025 Travel 06/18/2025 Travel from Last 3 Months Social History Tobacco Use Types Packs/Day Years [...] got money to buy more. Never True 06/28/2025 Within the past 12 months th e food we bought just didn't last and we didn't have money to get more. Never True 06/28/2025 Purpose - Life Answer Date Recorded Purpose and direction in life Unknown Sex and Gender Information Value Date Recorded Sex Assigned at Not on file Legal Sex Male 12:03 PM EDT Gender Identity Not on file Sexual Orientation Not on file Last Filed Vital Signs Vital Sign Reading Time Taken Comments Blood Pressure 131/76 06/28/2025 10:13 AM EDT Pulse 62 06/28/2025 10:13 AM EDT Temperature - - Respiratory Rate 20 12/09/2017 9:20 PM EST Oxygen Saturation 99% 06/28/2025 10:13 AM EDT Inhaled Oxygen Concentration - - Weight 126.6 kg (279 lb) 06/28/2025 10:13 AM EDT Height 182.9 cm (6') 06/01/2024 10:03 AM EDT Body Mass Index 37.84 06/01/2024 10:03 AM EDT Plan of Treatment Upcoming Encounters Date Type Department Care Team (Late st Contact Info) Description 07/26/2025 2:30 PM EDT Office Visit [facility] [place] [address] [place] [address] Precious Maya, [employer]IDENTIAL [employer]ING [employer] [address] [place] [id number] Health Maintenance Due Date Last Done Comments Depression Screening 1962 Fall Risk Screening 2015 Zoster (Shingles) Vaccine (2 of 3) 10/17/2015 08/22/2015 COVID-19 Vaccine (2024-2 6 season) 2025 09/09/2022, 09/26/2021, 01/25/2021, Additional history exists Influenza Vaccine 07/02/2025 10/26/2024, , 09/03/2022, Additional history exists Tobacco Screening 06/28/2026 06/28/2025 DTaP,Tdap and Td Vaccines (2 - Td or Tdap) 02/16/2035 02/16/2025 Medical Devices Not on file Procedures Procedure Name Priority Date/Time Associated Diagnosis Comments VASC ARTERIAL DUPLEX LOWER BILATERAL Routine 07/06/2025 2:51 PM EDT Claudication VASC ARTERIAL DOPPLER LOWER LIMITED SINGLE (SHAMIR) Routine 07/06/2025 2:38 PM EDT Claudication VASC VENOUS DUPLEX INSUFFICIENCY LOWER BILATERAL Routine 06/27/2025 4:15 PM EDT Varicose veins of bilateral lower extremities with pain Lipodermatosclerosi s of both lower extremities from Last 3 Months Results * Vas art duplex lwr bilateral (07/06/2025 2:51 PM EDT) Anatomical Region Laterality Modality Vascular Bilateral Ultrasound 07/06/2025 2:58 PM EDT Narrative 07/06/2025 4:31 PM EDT Right: Minimal calcified plaque and spectral waveforms with diastolic flow reversal noted in the external iliac, common femoral, deep femoral, superficial femoral, popliteal, peroneal, posterior and anterior tibial artery without significant color flow disturbance. Left: Minimal calcified plaque and spectral waveforms with diastolic flow reversal noted in the external iliac, common femoral, deep femoral, superficial femoral, popliteal, peroneal, posterior and anterior tibial artery without significant color flow disturbance. Conclusions: BILATERAL: Normal lower extremity arterial duplex examination. Procedure Note Jude Lovell MD - 07/06/2025 Right: Minimal calcified plaque and spectral waveforms with diastolic flowreversal noted in the external iliac, common femoral, deep femoral,superficial femoral, popliteal, peroneal, posterior and anterior tibialartery without significant color flow disturbance. Left: Minimal calcified plaque and spectral waveforms with diastolic flowreversal noted in the external iliac, common femoral, deep femoral,superficial femoral, popliteal, peroneal, posterior and anterior tibialartery without significant color flow disturbance. Conclusions: BILATERAL: Normal lower extremity arterial duplexexamination. Precious Maya [employer]IDENT[employer] CV VASCULAR ORDERABLES Final Result * Vas art doppler lwr limited single (07/06/2025 2:38 PM EDT) Anatomical Region Laterality Modality Vascular N/A Ultrasound 07/06/2025 2:55 PM EDT Narrative 07/06/2025 4:32 PM EDT Right: Essentially normal PVR waveform contour at the ankle. Audible PT and DP arterial Doppler signals despite occlusive cuff pressures exceeding >250mmHg. TBI is 0.80. Multiphasic with diastolic flow reversal PT and DP CW Doppler waveforms. Left: Essentially normal PVR waveform contour at the ankle. Audible PT and DP arterial Doppler signals despite occlusive cuff pressures exceeding >250mmHg. TBI is 0.78. Multiphasic with diastolic flow reversal PT and DP CW Doppler waveforms. Conclusions: BILATERAL:SHAMIR is falsely elevated suggesting medial calcinosis; normal lower extremity TBI at rest.Waveform data is consistent with no significant arterial obstruction. Procedure Note Jude Lovell MD - 07/06/2025 Right: Essentially normal PVR waveform contour at the ankle. Audible PTand DP arterial Doppler signals despite occlusive cuff pressures exceeding>250mmHg. TBI is 0.80. Multiphasic with diastolic flow reversal PT and DPCW Doppler waveforms. Left: Essentially normal PVR waveform contour at the ankle. Audible PT andDP arterial Doppler signals despite occlusive cuff pressures exceeding>250mmHg. TBI is 0.78. Multiphasic with diastolic flow reversal PT and DPCW Doppler waveforms. Conclusions: BILATERAL:SHAMIR is falsely elevated suggesting medialcalcinosis; normal lower extremity TBI at rest.Waveform data is consistentwith no significant arterial obstruction. us Precious Maya [employer]IDENT[employer]ING [employer] CV VASCULAR ORDERABLES Final Result * Vas venous duplex insufficiency lwr bi (06/27/2025 4:15 PM EDT) Anatomical Region Laterality Modality Vascular Bilateral Ultrasound 06/27/2025 4:33 PM EDT Narrative 06/28/2025 7:29 AM EDT Previous: History of bilateral lower extremity endovenous ablation. (Right: 05/24/2024, Left: 05/11/2024) History of bilateral deep calf muscle DVT in 2023. Right: Great saphenous vein ablation in the thigh and calf. Non dilated partially compressible deep calf muscle veins with mixed echogenic intraluminal content. Remaining visualized deep venous segments are compressible with spontaneous phasic spectral Doppler waveforms. Remaining superficial veins are compressible. Venous reflux time >1000 ms is noted in the popliteal and deep calf muscle veins. Saphenopopliteal junction with multilevel small saphenous vein reflux >500 ms. Left: Great saphenous vein ablation in the proximal and mid thigh, with recanalization noted from the mid thigh to calf level. Non dilated partially compressible deep calf muscle veins with mixed echogenic intraluminal content. Remaining visualized deep venous segments are compressible with spontaneous phasic spectral Doppler waveforms. Remaining superficial veins are compressible. Saphenopopliteal junction was not visualized, intersaphenous vein was noted. Venous reflux time >1000 ms is noted in the deep calf muscle vein. Multilevel great saphenous vein reflux time >500 ms. General: This examination was performed in the upright position. 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 deep Calf vein reflux.Great saphenous, superficial vein reflux. Procedure Note Maximus Viveros MD - 06/28/2025 Previous: History of bilateral lower extremity endovenous ablation.(Right: 05/24/2024, Left: 05/11/2024) History of bilateral deep calf muscleDVT in 2023. Right: Great saphenous vein ablation in the thigh and calf. Non dilatedpartially compressible deep calf muscle veins with mixed echogenicintraluminal content. Remaining visualized deep venous segments arecompressible with spontaneous phasic spectral Doppler waveforms. Remaining superficial veins are compressible. Venousreflux time >1000 ms is noted in the popliteal and deep calf muscle veins.Saphenopopliteal junction with multilevel small saphenous vein reflux >500ms. Left: Great saphenous vein ablation in the proximal and mid thigh, withrecanalization noted from the mid thigh to calf level. Non dilatedpartially compressible deep calf muscle veins with mixed echogenicintraluminal content. Remaining visualized deep venous segments are compressible with spontaneous phasic spectral Dopplerwaveforms. Remaining superficial veins are compressible. Saphenopoplitealjunction was not visualized, intersaphenous vein was noted. Venous refluxtime >1000 ms is noted in the deep calf muscle vein. Multilevel great saphenous vein reflux time >500ms. General: This examination was performed in the upright position. Conclusions: RIGHT:Limited visualization of lower extremity venoussegments.No evidence of acute deep or superficial vein thrombosis of thelower extremity.Chronic post thrombotic deep calf venousdisease.Satisfactory endovenous ablation of the great saphenous vein.Popliteal deep vein reflux.Saphenopopliteal junction, smallsaphenous, superficial vein reflux.LEFT:Limited visualization of lowerextremity venous segments.No evidence of deep or superficial veinthrombosis of the lower extremity.Chronic post thrombotic disease of the superficial vein, GSV. deep Calf veinreflux.Great saphenous, superficial vein reflux. Callie Mora MD CV VASCULAR ORDERABLES Final Result from Last 3 Months Insurance [employer] Care Teams Sharepoint Application Developer Relationship Specialty Start Date End Date Khoa Godinez MD PCP - General 12/09/17
--- OUTSIDE RECORDS SUMMARY | 2025-07-23 14:01 | XMS_ITS ---
Author Organization [facility] Address [address] [place] [address] Care Team Providers Care It Business Systems Analyst Name Role Phone Jude Beach MD Unavailable [phone] Tiffanie Smyth DPM Unavailable [phone] Khoa Godinez MD Unavailable [phone] Khoa Godinez MD Primary Care Provider [phone] Larissa Leavitt RN Unavailable [phone] Callie Mora MD Unavailable [phone] Skinny White MD Unavailable [phone] Shani Mohan DO Unavailable [phone] Chronic Care Management (CCM) Status:Enrolled (Active) [...] Larissa Leavitt RN(Responsible Staff) Hermiloe niya Nurse [phone] Continued Care and Services Coordination
--- OUTSIDE RECORDS SUMMARY | 2025-07-23 14:01 | XMS_ITS | Encounter Summary ---
Author Organization [facility] Address [address] [place] [address] Care Team Providers Care Uniform Attendant Name Role Phone Jude Beach MD Unavailable +[phone] Tiffanie Smyth DPM Unavailable +[phone] Khoa Godinez MD Unavailable +[phone] Khoa Godinez MD Primary Care Provider +[phone] Larissa Leavitt RN Unavailable +[phone] Callie Mora MD Unavailable +[phone] Skinny White MD Unavailable +[phone] Shani Mohan DO Unavailable [phone] Reason for Visit * Reason Comments Med Refill Encounter Details Date Type Department Care Team (Late st Contact Info) Description 04/30/2025 Refill [facility] [place] 521 Family Medicine [address] [place] [address] Khoa Godinez MD 112 [facility] [address] [place] [address] Type 2 diabetes mellitus with hyperglycemia (HCC) [...] EST Procedure Visit [facility] [address] [place] [address] Tiffanie Smyth DPM [address] [place] [address] 10/22/2025 2:30 PM EST Office Visit [facility] [address] [place] [address] Khoa Godinez MD [address] [facility] 100 [place] [address] documented as of this encounter Visit Diagnoses Diagnosis Type 2 diabetes mellitus with hyperglycemia (HCC) documented in this encounter Additional Health Concerns Assessment Noted Time PHQ-9 Depression Total Score: 2 04/03/20 24 11:00 AM EDT documented as of this encounter Care Teams Uniform Attendant Relationship Specialty Start Date End Date Khoa Godinez MD 112 [facility] 100 [place] [address] PCP - ACO Reach 12/31/23 Khoa Godinez MD 112 [facility] 100 [place] [address] PCP - General Family Medicine 12/27/24 Jude Beach MD 290 [place] [address] Referring Physician Urology 12/09/23 Tiffanie Smyth, DPM [address] [place], [place] [address] Referring Physician Podiatry 12/09/23 Larissa Leavitt, RN 2500 [address] [facility] 230 [place] [address] Registered Nurse Family Medicine 02/13/25 Callie Mora MD 595 [place] [address] Referring Physician General Surgery 05/07/25 Skinny White MD 2600 [place] [address] Referring Physician Ophthalmology 05/07/25 Shani Mohan DO [address] [address] Referring Physician Neurology 05/07/25 documented as of this encounter
--- OUTSIDE RECORDS SUMMARY | 2025-07-23 14:01 | XMS_ITS | Clinical Summary ---
Author Organization [facility] Address [address] [place] [address] Care Team Providers Care Brush Holder Inspector Name Role Phone Unavailable Primary Care Provider Unavailabl e Allergies Active Allergy Reactions Criticality Noted Date Comments Meperidine (Pf) Other: See Comments 02/01/2014 shakes Medications Losartan-Telford chlorothiazide 100-12.5 mg per tablet Take 1 [...] Diabetes Screening 02/22/2017 02/22/2014, 0 02/21/2014, 02/01/2014 Advance Directive Discussion 11/01/2024 RSV Vaccine (1 - 1-dose 75+ series) 2025 Influenza Vaccine (#1) 2025 Medical Devices Implanted Type Area Application Release Manager Device Identifier Shelf Expiration Date Model / Serial / Lot Egr-Ja-[id number]-Kind Implant - [id number] Implanted:Qty: 1 on 02/21/2014 at [facility] Implant [employer] [id number] / / Description:[id number] PERCUFLEX STENT Procedures Procedure Name Priority Date/Time Associated Diagnosis Comments BASIC METABOLIC PANEL Routine 02/22/2014 12:44 AM EDT from Last 3 Months or Most Recently Relevant to Health Maintenance Results * (ABNORMAL) BASIC METABOLIC PNL (02/22/2014 12:44 AM EDT) Glucose 101(H) 65 - 100 mg/dL [facility] BUN 22 10 - 25 mg/dL [facility] Creatinine 1.12 0.70 - 1.40 mg/dL [facility] Sodium 139 135 - 146 mmol/L [facility] Potassium 3.8 3.5 - 5.0 mmol/L [facility] Chloride 104 98 - 110 mmol/L [facility] CO2 23 23 - 32 mmol/L [facility] Anion Gap 12 0 - 15 mmol/L [facility] Calcium 8.5 8.5 - 10.5 mg/dL [facility] Blood specimen (specimen) BLOOD SPECIMEN / Unknown 02/22/2014 12:44 AM EDT 02/22/2014 12:45 AM EDT us Burke Clemens MD LABORATORY Final Result [facility] [address] [place] [address] from Last 3 Months or Most Recently Relevant to Health Maintenance Insurance BLUE CARD PPO OOS Member Subscriber Plan / Payer (Ef fective 2013-Present) Name:Manuel Balderas Relation to Subscriber:Self Name:Manuel Balderas Payer ID:[id number] (NAIC) Type:PPO Address: [facility] [id number] [place] [id number] Advance Directives Documents on File Type Date Recorded Patient Banquet Captain Expl anation Advance Directive(s) 02/09/2014 11:20 AM
--- OUTSIDE RECORDS SUMMARY | 2025-07-23 14:01 | XMS_ITS | Encounter Summary ---
Author Organization [employer] Address [id number] [address] [place] [address] Care Team Providers Care Supervisor Mold Construction Name Role Phone Khoa Godinez MD Primary Care Provider [phone] Encounter Details Date Type Department Care Team (Late st Contact Info) Description 05/11/2024 Telephone [facility] [address] [place] [address] Callie Mora MD [address], [facility] [address] [place] [address] Social History Tobacco Use Types Packs/Day Years [...] compression stockings. They can be reached at [phone] Thank you * Telephone Encounter - Dianne [...] Description 07/26/2025 2:30 PM EDT Office Visit [facility] [place] [address] [place] [address] Precious Maya, [employer] PLANNER-[employer] TEACHER [address] [address] documented as of this encounter Visit Diagnoses Not on filedocumented in this encounter Care Teams Supervisor Mold Construction Relationship Specialty Start Date End Date Khoa Godinez MD PCP - General 12/09/17 documented as of this encounter
--- OUTSIDE RECORDS SUMMARY | 2025-07-23 14:02 | XMS_ITS | Encounter Summary ---
Author Organization [facility] Address [address] [place] [address] Care Team Providers Care Crate Icer Name Role Phone Khoa Godinez MD Primary Care Provider + [phone] Jude Beach MD Unavailable +[phone] Tiffanie Smyth DPM Unavailable [phone] Khoa Godinez MD Unavailable +[phone] Khoa Godinez MD Primary Care Provider + [phone] Larissa Leavitt RN Unavailable +[phone] Callie Mora MD Unavailable [phone] Skinny White MD Unavailable [phone] Shani Mohan DO Unavailable [phone] Reason for Visit * Reason Onset Date Comments Med Refill 02/10/2024 Encounter Details Date Type Department Care Team (Late st Contact Info) Description 02/10/2024 Refill [facility] [place] 521 Family Medicine [address] [place] [address] Khoa Godinez MD 112 [facility] [address] [place] [address] (Fax) Lymphedema of both lower extremities Social [...] Description 10/11/2025 10:45 AM EST Procedure Visit [facility] [address] [facility] [place] [address] Tiffanie Smyth, DPM [address] [facility] [address] 10/22/2025 2:30 PM EST Office Visit [facility]iz [facility] Family Medicine [address] [place] [address] Khoa Godinez MD [address] [place] [address] (Fax) documented as of this encounter Visit Diagnoses Diagnosis Lymphedema of both lower extremities documented in this encounter Care Teams Crate Icer Relationship Specialty Start Date End Date Khoa Godinez MD (Fax) PCP - General Family Medicine 04/08/23 09/12/24 Khoa Godinez MD [address] [place] [address] (Fax) PCP - ACO Reach 12/31/23 Khoa Godinez MD [address] [place] [facility] [address] [place] [address] (Fax) PCP - General Family Medicine 12/27/24 Jude Beach MD 290 [place] [address] Referring Physician Urology 12/09/23 Tiffanie Smyth DPM 1900 [place] [address] Referring Physician Podiatry 12/09/23 Larissa Leavitt, RN [address] [facility] 230 [place] [address] Registered Nurse Family Medicine 02/13/25 Callie Mora MD 595 [place] [address] Referring Physician General Surgery 05/07/25 Skinny White MD 2600 [place] [address] Referring Physician Ophthalmology 05/07/25 Shani Mohan DO [address] [phone] Referring Physician Neurology 05/07/25 documented as of this encounter
--- OUTSIDE RECORDS SUMMARY | 2025-07-23 14:02 | XMS_ITS | Encounter Summary ---
Author Organization [facility] Address [address] [place] [address] Care Team Providers Care Shearer Screen Measurer And Trimmer Name Role Phone Khoa Godinez MD Primary Care Provider + [phone] Jude Beach MD Unavailable [phone] Tiffanie Smyth DPM Unavailable [phone] Khoa Godinez MD Unavailable [phone] Khoa Godinez MD Primary Care Provider +[phone] Larissa Leavitt RN Unavailable [phone] Callie Mora MD Unavailable +[phone] Skinny White MD Unavailable +[phone] Shani Mohan DO Unavailable [phone] Reason for Visit * Reason Comments Med Refill Encounter Details Date Type Department Care Team (Late st Contact Info) Description 01/27/2024 Refill [facility] [place] 521 Family Medicine [address] [place] [address] Khoa Godinez MD 112 [facility] [address] [place] [address] 14 (Fax) Lymphedema of both lower extremities Social [...] Description 10/11/2025 10:45 AM EST Procedure Visit [facility] [address] [place] [address] Tiffanie Smyth DPM [address] [place] [address] 10/22/2025 2:30 PM EST Office Visit [facility] Medicine [address] [place] [address] [place] [address] Khoa Godinez MD [address] [address] (Fax) documented as of this encounter Visit Diagnoses Diagnosis Lymphedema of both lower extremities documented in this encounter Care Teams Shearer Screen Measurer And Trimmer Relationship Specialty Start Date End Date Khoa Godinez MD (Fax) PCP - General Family Medicine 04/08/23 09/12/24 Khoa Godinez MD [address] [place] [address] [address] (Fax) PCP - ACO Reach 12/31/23 Khoa Godinez MD [address] [place] [address] [address] (Fax) PCP - General Family Medicine 12/27/24 Jude Beach MD [address] [place] [address] Referring Physician Urology 12/09/23 Tiffanie Smyth DPM 1900 [facility] [place] [address] Referring Physician Podiatry 12/09/23 Larissa Leavitt, RN 2500 [address] [facility] 230 [place] [address] Registered Nurse Family Medicine 02/13/25 Callie Mora MD 595 [place] [address] Referring Physician General Surgery 05/07/25 Skinny White MD 2600 [place] [address] Referring Physician Ophthalmology 05/07/25 Shani Mohan DO [address] [phone] Referring Physician Neurology 05/07/25 documented as of this encounter
--- OUTSIDE RECORDS SUMMARY | 2025-07-23 14:02 | XMS_ITS | Encounter Summary ---
Author Organization [facility] Address [address] [place] [address] Care Team Providers Care Commercial Insulator Name Role Phone Jude Beach MD Unavailable [phone] Tiffanie Smyth DPM Unavailable +[phone] Khoa Godinez MD Unavailable [phone] Khoa Godinez MD Primary Care Provider + [phone] Larissa Leavitt RN Unavailable +[phone] Callie Mora MD Unavailable +[phone] Skinny White MD Unavailable [phone] Shani Mohan DO Unavailable [phone] Encounter Details Date Type Department Care Team (Late st Contact Info) Description 05/08/2025 Orders Only [facility] [place] 100 Family Medicine 112 [facility] 100 [place] [address] Khoa Godinez MD 112 [facility] 100 [place] [address] Social History Tobacco Use Types Packs/Day Years [...] EST Procedure Visit [facility] [address] [place] [address] Tiffanie Smyth DPM [address] [place] [address] 10/22/2025 2:30 PM EST Office Visit [facility] Family Medicine [address] [place] [address] [place] [address] Khoa Godinez MD [address] [place] [address] (Fax) documented as of this encounter Visit Diagnoses Not on filedocumented in this encounter Additional Health Concerns Assessment Noted Time PHQ-9 Depression Total Score: 1 05/07/20 25 10:00 AM EDT documented as of this encounter Care Teams Commercial Insulator Relationship Specialty Start Date End Date Khoa Godinez MD [address] [place] [address] (Fax) PCP - ACO Reach 12/31/23 Khoa Godinez MD [address] [place] [address] (Fax) PCP - General Family Medicine 12/27/24 Jude Beach MD [address] [place] [address] Referring Physician Urology 12/09/23 Tiffanie Smyth DPM [address] [place] [address] Referring Physician Podiatry 12/09/23 Larissa Leavitt, RN [address] [place] [address] [place] [address] Registered Nurse Family Medicine 02/13/25 Callie Mora MD 595 [facility] [place] [address] Referring Physician General Surgery 05/07/25 Skinny White MD [address] [place] [address] Referring Physician Ophthalmology 05/07/25 Shani Mohan DO [address] [place] [place] [address] [address] [place] [address] Referring Physician Neurology 05/07/25 documented as of this encounter
--- OUTSIDE RECORDS SUMMARY | 2025-07-23 14:02 | XMS_ITS | Encounter Summary ---
Author Organization [facility] Address [address] [place] [address] Care Team Providers Care Home Therapy Clinician Name Role Phone Khoa Godinez MD Primary Care Provider + [phone] Jude Beach MD Unavailable [phone] Tiffanie Smyth DPM Unavailable [phone] Khoa Godinez MD Unavailable +[phone] Khoa Godinez MD Primary Care Provider [phone] Larissa Leavitt RN Unavailable +[phone] Callie Mora MD Unavailable +[phone] Skinny White MD Unavailable +[phone] Shani Mohan DO Unavailable [phone] Encounter Details Date Type Department Care Team (Late st Contact Info) Description 07/15/2023 Orders Only [facility] [place] 521 Family Medicine [address] [facility] [place] [place] [address] Jude Beach MD [address] [place] [address] Social History Tobacco Use Types Packs/Day Years [...] 10/11/2025 10:45 AM EST Procedure Visit [facility] [address] [place] [address] Tiffanie Smyth, DPM [address] [place] [address] 10/22/2025 2:30 PM EST Office Visit [facility] 100 Family Medicine [address] [facility] 100 [place] [address] Khoa Godinez MD [address] [address] (Fax) documented as of this encounter Procedures [...] on filedocumented in this encounter Care Teams Home Therapy Clinician Relationship Specialty Start Date End Date Khoa Godinez MD (Fax) PCP - General Family Medicine 04/08/23 09/12/24 Khoa Godinez MD [address] [facility] 100 [place] [address] (Fax) PCP - ACO Reach 12/31/23 Khoa Godinez MD [address] [facility] 100 [place] [address] (Fax) PCP - General Family Medicine 12/27/24 Jude Beach MD 290 [place] [address] Referring Physician Urology 12/09/23 Tiffanie Smyth DPM 1900 [place] [address] Referring Physician Podiatry 12/09/23 Larissa Leavitt, RN 2500 [facility] 230 [place] [address] Registered Nurse Family Medicine 02/13/25 Callie Mora MD 595 [place] [address] Referring Physician General Surgery 05/07/25 Skinny White MD 2600 [place] [address] Referring Physician Ophthalmology 05/07/25 Shani Mohan DO [address] [phone] Referring Physician Neurology 05/07/25 documented as of this encounter
--- OUTSIDE RECORDS SUMMARY | 2025-07-23 14:02 | XMS_ITS | Encounter Summary ---
Author Organization [facility] Address [address] [place] [address] Care Team Providers Care Manager Radiation Name Role Phone Jude Beach MD Unavailable +[phone] Tiffanie Smyth DPM Unavailable [phone] Khoa Godinez MD Unavailable [phone] Khoa Godinez MD Primary Care Provider [phone] Larissa Leavitt RN Unavailable +[phone] Callie Mora MD Unavailable [phone] Skinny White MD Unavailable +[phone] Shani Mohan DO Unavailable [phone] Reason for Visit * Reason Comments Med Refill Encounter Details Date Type Department Care Team (Late st Contact Info) Description 04/26/2025 Telephone [facility] [place] [facility] 112 [facility] 100 [place] [address] Khoa Godinez MD 112 [facility] 100 [place] [address] Med Refill Social History Tobacco Use Types [...] AM EST Procedure Visit [facility] [place] [place] [address] Tiffanie Smyth DPM 190 [place] [address] 10/22/2025 2:30 PM EST Office Visit [facility] 112 [facility] 100 [place] [address] Khoa Godinez MD 112 [facility] 100 [place] [address] documented as of this encounter Visit Diagnoses Diagnosis Essential hypertension Unspecified essential hypertension documented in this encounter Additional Health Concerns Assessment Noted Time PHQ-9 Depression Total Score: 2 04/03/20 24 11:00 AM EDT documented as of this encounter Care Teams Manager Radiation Relationship Specialty Start Date End Date Khoa Godinez MD [address] [place] [address] PCP - ACO Reach 12/31/23 Khoa Godinez MD [address] [place] [address] PCP - General Family Medicine 12/27/24 Jude Beach MD [address] [place], [place] [address] Referring Physician Urology 12/09/23 Tiffanie Smyth DPWei 1900 [place] [address] Referring Physician Podiatry 12/09/23 Larissa Leavitt, RN [address] [facility] 230 [place] [address] Registered Nurse Family Medicine 02/13/25 Callie Mora MD 595 [place] [address] Referring Physician General Surgery 05/07/25 Skinny White MD 2600 [place] [address] Referring Physician Ophthalmology 05/07/25 Shani Mohan DO [address] [phone] Referring Physician Neurology 05/07/25 documented as of this encounter
--- OUTSIDE RECORDS SUMMARY | 2025-07-23 14:02 | XMS_ITS | Encounter Summary ---
Author Organization [facility] Address [address] [place] [address] Care Team Providers Care Biochemistry Professor Name Role Phone Jude Beach MD Unavailable +[phone] Tiffanie Smyth DPM Unavailable +[phone] Khoa Bowles MD Unavailable +[phone] Khoa Bowles MD Primary Care Provider + [phone] Larissa Leavitt RN Unavailable +[phone] Callie Mora MD Unavailable +[phone] Skinny White MD Unavailable [phone] Shani Mohan DO Unavailable [phone] Encounter Details Date Type Department Care [...] Procedure Visit [facility] [address] [facility] [address] Tiffanie Smyth DPM [address] [place], [place] [address] 10/22/2025 2:30 PM EST Office Visit [address] Medicine 112 [facility] 100 [place] [address] Khoa Bowles MD 112 [facility] 100 [place] [address] documented as of this encounter Procedures Procedure Name Priority Date/Time Associated Diagnosis Comments CT ANKLE LT WO CON 11/18/2024 9: 05 AM EST documented in this encounter Results * CT ANKLE LT WO CON (11/18/2024 9:05 AM EST) Anatomical Region Laterality Modality Other 11/18/2024 9:05 AM EST Narrative 11/18/2024 9:08 AM EST [place] [id number] CT Scan Report Signed Patient: MANUEL BALDERAS MR#: [id number] : 1950 Acct:[id number] Age/Sex: 74 / M ADM Date: 11/17/24 Loc: CT Attending Dr: Non-Staff Physician Minerva Ordering Physician: Prince Greer M.D. Date of Service: 11/17/24 Procedure(s): CT ankle LT wo con Accession Number(s): [id number] cc: KHOA BOWLES [address] [address] Patient Name: MANUEL BALDERAS MRN: [id number] date: 1950 Sex: M Assigned Patient Location: CT Current Patient Location: CT Accession/Order Number: [id number] Exam Date: 11/17/2024 09:52 Report Date: 11/18/2024 [...] M.D. Signed By: 11/18/2408 DD/ 4 TD/TT: Harbour Master: Procedure Note Radiology, Radiologist, - 11/18/2024 [place] [address] CT Scan Report Signed Patient: MANUEL BALDERAS JMR#: [id number] : 1950Acct:[id number] Age/Sex: 74 / MADM Date: 11/17/24 Loc: CT Attending Dr: Lou-Staff Physician Minerva Ordering Physician: Prince Greer M.D. Date of Service: 11/17/24 Procedure(s): CT ankle LT wo con Accession Number(s): [id number] cc: KHOA BOWLES [place] [address] Patient Name: MANUEL BALDERAS MRN: [id number] date: 1950 Sex: M Assigned Patient Location: CT Current Patient Location: CT Accession/Order Number: [id number] Exam Date: 11/17/2024 09:52 Report Date: 11/18/2024 [...] bony fusion across the posterior subtalar joint kybxmsivg52% to 75% of the elbow joint. Minor [...] Landers M.D. Signed By:11/18/24907 DD/ 4 TD/TT: Harbour Master: us Generic External Data Provider [facility] Final Result documented in this encounter Visit Diagnoses Not on filedocumented in this encounter Additional Health Concerns Assessment Noted Time PHQ-9 Depression Total Score: 2 04/03/20 24 11:00 AM EDT documented as of this encounter Care Teams Biochemistry Professor Relationship Specialty Start Date End Date Khoa Bowles MD [address] [address] (Fax) PCP - ACO Reach 12/31/23 Khoa Bowles MD [address] [address] (Fax) PCP - General Family Medicine 12/27/24 Jude Beach MD 290 [place] [address] Referring Physician Urology 12/09/23 Tiffanie Smyth DPM [address] [place] [address] Referring Physician Podiatry 12/09/23 Larissa Leavitt, RN [address] [place] [address] [place] [address] Registered Nurse Family Medicine 02/13/25 Callie Mora MD 595 [place] [address] Referring Physician General Surgery 05/07/25 [place] [address] [place] [address] Referring Physician Ophthalmology 05/07/25 Shani Mohan DO 703 [facility] 353 [place] [address] Referring Physician Neurology 05/07/25 documented as of this encounter
--- OUTSIDE RECORDS SUMMARY | 2025-07-23 14:02 | XMS_ITS | Encounter Summary ---
Author Organization [facility] Address [address] [place] [address] Care Team Providers Care Respite Care Provider Name Role Phone Jude Beach MD Unavailable +[phone] Tiffanie Smyth DPM Unavailable +[phone] Khoa Godinez MD Unavailable +[phone] Khoa Godinez MD Primary Care Provider + [phone] Larissa Leavitt RN Unavailable +[phone] Callie Mora MD Unavailable +[phone] Skinny White MD Unavailable +[phone] Shani Mohan DO Unavailable [phone] Encounter Details Date Type Department Care Team (Latest Contact Info) Description 07/11/2025 Travel Social History Tobacco Use Types Packs/Day [...] week 06/18/2025 How often do you attend [facility] or jewish services? More than 4 times per year 06/18/2025 Do you belong to any clubs o r organizations such as scientology groups, unions, fraternal or athletic groups, or [...] Recorded Patient Health Questionnaire-2 Score 0 05/07/2025 [facility] of Occupat ional Health - Occupational Stress [...] any time in the past 12 m [facility], were you homeless or living in a alf (including now)? No 06/18/2025 Sex and Gender [...] Visit [facility] [address] [facility] [place] [address] Tiffanie Smyth DPM [address] [place] [address] 10/22/2025 2:30 PM EST Office Visit [facility] [address] [place] [address] Khoa Godinez MD [address] [address] [place] [address] (Fax) documented as of this encounter Visit Diagnoses Not on filedocumented in this encounter Additional Health Concerns Assessment Noted Time PHQ-9 Depression Total Score: 1 05/07/20 25 10:00 AM EDT documented as of this encounter Care Teams Respite Care Provider Relationship Specialty Start Date End Date Khoa Godinez MD [address] [address] [place] [address] PCP - ACO Reach 12/31/23 Khoa Godinez MD [address] [address] [place] [address] PCP - General Family Medicine 12/27/24 Jude Beach MD 290 [place] [address] Referring Physician Urology 12/09/23 Tiffanie Smyth DPM 1900 [place], [place] [address] Referring Physician Podiatry 12/09/23 Larissa Leavitt, RN [address] [facility] 230 [place] [address] Registered Nurse Family Medicine 02/13/25 Callie Mora MD 595 [place] [address] Referring Physician General Surgery 05/07/25 Skinny White MD 2600 [place] [address] Referring Physician Ophthalmology 05/07/25 Shani Mohan DO [address] [phone] Referring Physician Neurology 05/07/25 documented as of this encounter
--- OUTSIDE RECORDS SUMMARY | 2025-07-23 14:02 | XMS_ITS ---
Author Organization [facility] Address [address] [place] [address] Care Team Providers Care Proposal Coordinator Name Role Phone Jude Beach MD Unavailable +[phone] Tiffanie Smyth DPM Unavailable +[phone] Khoa Godinez MD Unavailable +[phone] Khoa Godinez MD Primary Care Provider + [phone] Larissa Leavitt RN Unavailable +[phone] Callie Mora MD Unavailable +[phone] Skinny White MD Unavailable +[phone] Shani Mohan DO Unavailable [phone] Emergency Department Transitional Care Management (TCM) Status:Closed (Closed) Start date:07/15/2025 Enrollment date:07/16/2025 Enrollment reason:Identified using hospital discharge data End date:07/16/2025 Close reason:Actively enrolled in CCM Overview Discharged from [facility] ER on 07/13. Please contact within 2 days of discharge for ER SYLVIA and schedule a follow-up appointment if needed. <July 16, 2025, 17:22 - Larissa Leavitt RN> er sylvia done. Continued Care and Services Coordination
--- OUTSIDE RECORDS SUMMARY | 2025-07-23 14:02 | XMS_ITS | Encounter Summary ---
Author Organization [facility] Address [address] [place] [address] Care Team Providers Care Cytopathologist Name Role Phone Khoa Bowles MD Primary Care Provider + [phone] Jude Beach MD Unavailable +[phone] Tiffanie Smyth DPM Unavailable +[phone] Khoa Bowles MD Unavailable [phone] Khoa Bowles MD Primary Care Provider +[phone] Larissa Leavitt RN Unavailable +[phone] Callie Mora MD Unavailable +[phone] Skinny White MD Unavailable +[phone] Shani Mohan DO Unavailable [phone] Encounter Details Date Type Department Care [...] 10/11/2025 10:45 AM EST Procedure Visit [facility] [address] [facility] [place] [address] Tiffanie Smyth DPWei [address] [place] [address] 10/22/2025 2:30 PM EST [facility] 112 [facility] 100 [place] [address] Khoa Bowles MD 112 [facility] 100 [place] [address] documented as of this encounter Procedures Procedure Name Priority Date/Time Associated Diagnosis Comments VC EXT VENOUS REFLUX ROSE MARY LMTD 03/22/2024 8:57 AM EDT documented in this encounter Results * VC EXT VENOUS REFLUX ROSE MARY LMTD (03/22/2024 8:57 AM EDT) Anatomical Region Laterality Modality Other 03/22/2024 8:57 AM EDT Narrative 03/22/2024 8:58 [place] [address] Vein Report Signed Patient: MANUEL BALDERAS MR#: [id number] : 1950 Acct:[id number] Age/Sex: 73 / M ADM Date: 03/20/24 Loc: VC Attending Dr: Callie Mora M.D. Ordering Physician: Callie Mora M.D. Date of Service: 03/20/24 Procedure(s): VC EXT Venous Reflux ROSE MARY LMTD Accession Number(s): [id number] cc: KHOA BOWLES ; Callie Mora M.D. Patient Name: MANUEL BALDERAS MR#: [id number] : 1950 Exam Date: 03/20/2024 Ordering Doctor: [...] calf GSV. Flow: Mild deep venous reflux. 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 Mild bilateral deep vein reflux 6. Bilateral popliteal fossa collections likely representing popliteal cysts 7. Bilateral incompetent varicose veins 1. Dictated by: Mikie Latham MD on 03/22/2024 at 08:54 Approved by: Mikie Latham MD on 03/22/2024 at 08:57 Dictated By: Mikie Latham M.D. Signed By: 03/22/24 0858 DD/ 0857 TD/TT: Ferry Engineer: Procedure Note Radiology, Radiologist, - 03/22/2024 [place] [address] Vein Report Signed Patient: MANUEL BALDERAS JMR#: [id number] : 1950Acct:[id number] Age/Sex: 73 / MADM Date: 03/20/24 Loc: VC Attending Dr: Callie Mora M.D. Ordering Physician: Callie Mora M.D. Date of Service: 03/20/24 Procedure(s): VC EXT Venous Reflux ROSE MARY LMTD Accession Number(s): [id number] cc: KHOA BOWLES ; Callie Mora M.D. Patient Name: MANUEL BALDERAS MR#: [id number] : 1950 Exam Date: 03/20/2024 Ordering Doctor: [...] calf GSV. Flow: Mild deep venous reflux. 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 Mild bilateral deep vein reflux 6. Bilateral popliteal fossa collections likely representing poplitealcysts 7. Bilateral incompetent varicose veins 1. Dictated by: Mikie Latham MD on 03/22/2024 at 08:54 Approved by: Mikie Latham MD on 03/22/2024 at 08:57 Dictated By: Mikie Latham M.D. Signed By:03/22/24 0858 DD/ 0857 TD/TT: Ferry Engineer: Generic External Data Provider [facility] Final Result documented in this encounter Visit Diagnoses Not on filedocumented in this encounter Care Teams Cytopathologist Relationship Specialty Start Date End Date Khoa Bowles MD (Fax) PCP - General Family Medicine 04/08/23 09/12/24 Khoa Bowles MD [address] [address] PCP - ACO Reach 12/31/23 Khoa Bowles MD [address] [address] PCP - General Family Medicine 12/27/24 Jude Beach MD [address] [place] [address] Referring Physician Urology 12/09/23 Tiffanie Smyth DPM 1900 [place] [address] Referring Physician Podiatry 12/09/23 Larissa Leavitt, CORDELL 2500 [address] [facility] 230 [place] [address] Registered Nurse Family Medicine 02/13/25 Callie Mora MD 595 [place] [address] Referring Physician General Surgery 05/07/25 Skinny White MD 2600 [place] [address] Referring Physician Ophthalmology 05/07/25 Shani Mohan DO [address] [phone] Referring Physician Neurology 05/07/25 documented as of this encounter
--- OUTSIDE RECORDS SUMMARY | 2025-07-23 14:02 | XMS_ITS | Encounter Summary ---
Author Organization [facility] Address [address] [place] [address] Care Team Providers Care Pressed Or Blown Glass Worker Name Role Phone Jude Beach MD Unavailable +[phone] Tiffanie Smyth DPM Unavailable +[phone] Khoa Godinez MD Unavailable +[phone] Khoa Godinez MD Primary Care Provider [phone] Larissa Leavitt RN Unavailable +[phone] Callie Mora MD Unavailable +[phone] Skinny White MD Unavailable +[phone] Shani Mohan DO Unavailable [phone] Encounter Details Date Type Department Care Team (Late st Contact Info) Description 07/19/2025 Bamboo flowsheet [facility] [place] [address] [facility] 100 [place] [address] Khoa Godinez MD 112 [facility] 100 [place] [address] Social History Tobacco Use Types Packs/Day Years [...] often do you attend chur ch or advent services? More than 4 times per year 06/18/2025 Do you belong to any clubs o r organizations such as evangelical groups, unions, fraternal or athletic groups, or [...] Recorded Patient Health Questionnaire-2 Score 0 05/07/2025 [facility] of Occupat ional Health - Occupational Stress [...] any time in the past 12 m [facility], were you homeless or living in [...] EST Procedure Visit [facility] [address] [place] [address] Tiffanie Smyth DPWei [address] [place] [address] 10/22/2025 2:30 PM EST Office Visit [facility] 112 [facility] [address] 100 [place] [address] Khoa Godinez MD 112 [facility] 100 [place] [address] documented as of this encounter Visit Diagnoses Not on filedocumented in this encounter Additional Health Concerns Assessment Noted Time PHQ-9 Depression Total Score: 1 05/07/20 25 10:00 AM EDT documented as of this encounter Care Teams Pressed Or Blown Glass Worker Relationship Specialty Start Date End Date Khoa Godinez MD [address] [place] [address] PCP - ACO Reach 12/31/23 Khoa Godinez MD [address] [place] [address] PCP - General Family Medicine 12/27/24 Jude Beach MD 290 [place] [address] Referring Physician Urology 12/09/23 Tiffanie Smyth DPM 1900 [place] [address] Referring Physician Podiatry 12/09/23 Larissa Leavitt, CORDELL 2500 [address] [facility] 230 [place] [address] Registered Nurse Family Medicine 02/13/25 Callie Mora MD 595 [place] [address] Referring Physician General Surgery 05/07/25 Skinny White MD 2600 [place] [address] Referring Physician Ophthalmology 05/07/25 Shani Mohan DO [address] [phone] Referring Physician Neurology 05/07/25 documented as of this encounter
--- OUTSIDE RECORDS SUMMARY | 2025-07-23 14:02 | XMS_ITS | Encounter Summary ---
Author Organization [facility] Address [address] [place] [address] Care Team Providers Care Internal Control Consultant Name Role Phone Jude Beach MD Unavailable +[phone] Tiffanie Smyth DPM Unavailable +[phone] Khoa Godinez MD Unavailable +[phone] Khoa Godinez MD Primary Care Provider + [phone] Larissa Leavitt RN Unavailable +[phone] Callie Mora MD Unavailable +[phone] Skinny White MD Unavailable +[phone] Shani Mohan DO Unavailable [phone] Encounter Details Date Type Department Care Team (Late st Contact Info) Description 01/29/2025 Orders Only [facility] [place] [address] 100 [place] [address] Sridevi Hobson SATURNINO Social History Tobacco Use Types Packs/Day Years [...] 10/11/2025 10:45 AM EST Procedure Visit [facility] [address] [place] [address] Tiffanie Smyth DPM [address] [place] [address] 10/22/2025 2:30 PM EST Office Visit [facility] Family Medicine [address] [place] [address] Khoa Godinez MD [address] [address] (Fax) documented as of this encounter Visit Diagnoses Not on filedocumented in this encounter Additional Health Concerns Assessment Noted Time PHQ-9 Depression Total Score: 2 04/03/20 24 11:00 AM EDT documented as of this encounter Care Teams Internal Control Consultant Relationship Specialty Start Date End Date Khoa Godinez MD [address] [address] PCP - ACO Reach 12/31/23 Khoa Godinez MD [address] [address] PCP - General Family Medicine 12/27/24 Jude Beach MD [address] [place] [address] Referring Physician Urology 12/09/23 Tiffanie Smyth DPM [address] [place], [place] [address] Referring Physician Podiatry 12/09/23 Larissa Leavitt, RN [address] [facility] 230 [place] [address] Registered Nurse Family Medicine 02/13/25 Callie Mora MD 595 [place] [address] Referring Physician General Surgery 05/07/25 Skinny White MD [address] [place] [address] Referring Physician Ophthalmology 05/07/25 Shani Mohan DO [address] [place] [phone] Referring Physician Neurology 05/07/25 documented as of this encounter
--- OUTSIDE RECORDS SUMMARY | 2025-07-23 14:02 | XMS_ITS | Encounter Summary ---
Author Organization [facility] Address [address] [place] [address] Care Team Providers Care Reconsignment Clerk Name Role Phone Khoa Godinez MD Primary Care Provider + [phone] Jude Beach MD Unavailable +[phone] Tiffanie Smyth DPM Unavailable +[phone] Khoa Godinez MD Unavailable [phone] Khoa Godinez MD Primary Care Provider +[phone] Larissa Leavitt RN Unavailable +[phone] Callie Mora MD Unavailable +[phone] Skinny White MD Unavailable +[phone] Shani Mohan DO Unavailable [phone] Encounter Details Date Type Department Care Team (Late st Contact Info) Description 02/25/2024 Orders Only [facility] [place] 521 Family Medicine [address] [facility] [place] [address] [place] [address] [place] [address] Social History Tobacco Use Types [...] 10/11/2025 10:45 AM EST Procedure Visit [facility] [address] [facility] [place] [address] Tiffanie Smyth, DPM [address] [place] [address] 10/22/2025 2:30 PM EST Office Visit [facility] [address] [place] [address] [place] [address] Khoa Godinez MD 112 [place] [address] [address] (Fax) documented as of this encounter Procedures [...] on filedocumented in this encounter Care Teams Reconsignment Clerk Relationship Specialty Start Date End Date Khoa Godinez MD (Fax) PCP - General Family Medicine 04/08/23 09/12/24 Khoa Godinez MD 112 [place] [address] [place] [address] (Fax) PCP - ACO Reach 12/31/23 Khoa Godinez MD 112 [place] [address] [address] PCP - General Family Medicine 12/27/24 Jude Beach MD 290 [place] [address] Referring Physician Urology 12/09/23 Tiffanei Smyth, DPM 1900 [place], [place] [address] Referring Physician Podiatry 12/09/23 Larissa Leavitt, RN 2500 [address] [facility] 230 [place] [address] Registered Nurse Family Medicine 02/13/25 Callie Mora MD 595 [place] [address] Referring Physician General Surgery 05/07/25 Skinny White MD 2600 [place] [address] Referring Physician Ophthalmology 05/07/25 Shani Mohan DO [address] [address] Referring Physician Neurology 05/07/25 documented as of this encounter
--- OUTSIDE RECORDS SUMMARY | 2025-07-23 14:02 | XMS_ITS | Encounter Summary ---
Author Organization [facility] Address [address] [place] [address] Care Team Providers Care Senior Estimator Name Role Phone Khoa Godinez MD Primary Care Provider + [phone] Jude Beach MD Unavailable +[phone] Tiffanie Smyth DPM Unavailable +[phone] Khoa Godinez MD Unavailable +- [phone] Khoa Godinez MD Primary Care Provider +[phone] Larissa Leavitt RN Unavailable +[phone] Callie Mora MD Unavailable +[phone] Skinny White MD Unavailable +[phone] Shani Mohan DO Unavailable [phone] Encounter Details Date Type Department Care Team (Late st Contact Info) Description 06/02/2023 Abstract [facility] [address] [facility] [address] Tiffanie Smyth, DPM [address] [place] [address] Social History Tobacco Use Types Packs/Day Years [...] Procedure Visit [facility] [address] [place] [address] Tiffanie Smyth DPM [address] [place] [address] 10/22/2025 2:30 PM EST Office Visit [facility] Family Medicine [address] [address] Khoa Godinez MD [address] [place] [address] [address] documented as of this encounter Visit Diagnoses Not on filedocumented in this encounter Care Teams Senior Estimator Relationship Specialty Start Date End Date Khoa Godinez MD PCP - General Family Medicine 04/08/23 09/12/24 Khoa Godinez MD [address] [address] PCP - ACO Reach 12/31/23 Khoa Godinez MD [address] [address] (Fax) PCP - General Family Medicine 12/27/24 Jude Beach MD [address] [place] [address] Referring Physician Urology 12/09/23 Tiffanie Smyth DPM [address] [place] [address] Referring Physician Podiatry 12/09/23 Larissa Leavitt, RN [address] [facility] 230 [place] [address] Registered Nurse Family Medicine 02/13/25 Callie Mora MD 595 [place] [address] Referring Physician General Surgery 05/07/25 Skinny White MD [address] [place] [address] Referring Physician Ophthalmology 05/07/25 Shani Mohan DO 703 [facility] 353 [place] [phone] Referring Physician Neurology 05/07/25 documented as of this encounter
--- OUTSIDE RECORDS SUMMARY | 2025-07-23 14:02 | XMS_ITS | Encounter Summary ---
Author Organization [facility] Address [address] [place] [address] Care Team Providers Care Enameler Name Role Phone Khoa Godinez MD Primary Care Provider + [phone] Jude Beach MD Unavailable +[phone] Tiffanie Smyth DPM Unavailable [phone] Khoa Godinez MD Unavailable [phone] Khoa Godinez MD Primary Care Provider +-[phone] Larissa Leavitt RN Unavailable +[phone] Callie Mora MD Unavailable +[phone] Skinny White MD Unavailable [phone] Shani Mohan DO Unavailable [phone] Reason for Visit * Reason Onset Date Comments Med Refill 03/21/2024 Encounter Details Date Type Department Care Team (Late st Contact Info) Description 03/21/2024 Refill [facility] [place] 521 Family Medicine [address] [place] [address] Khoa Godinez MD 112 [facility] [address] [place] [address] (Fax) Type 2 diabetes mellitus with hyperglycemia, [...] EST Procedure Visit [facility] 1900 [place] [address] Tiffanie Smyth, DPM 1900 [place], [place] [address] 10/22/2025 2:30 PM EST Office Visit [facility] Family Medicine [address] [address] Khoa Godinez MD [address] [address] (Fax) documented as of this encounter Visit Diagnoses Diagnosis Type 2 diabetes mellitus with hyperglycemia, without long-term current use of insulin (HCC) documented in this encounter Care Teams Enameler Relationship Specialty Start Date End Date Khoa Godinez MD (Fax) PCP - General Family Medicine 04/08/23 09/12/24 Khoa Godinez MD [address] [address] (Fax) PCP - ACO Reach 12/31/23 Khoa Godinez MD [address] [address] (Fax) PCP - General Family Medicine 12/27/24 Jude Beach MD [address] [place] [address] Referring Physician Urology 12/09/23 Tiffanie Smyth DPM 1900 [place], [place] [address] Referring Physician Podiatry 12/09/23 Larissa Leavitt, RN [address] [facility] [address] [place] [address] Registered Nurse Family Medicine 02/13/25 Callie Mora MD 595 [place] [address] Referring Physician General Surgery 05/07/25 Skinny White MD 2600 [place] [address] Referring Physician Ophthalmology 05/07/25 Shani Mohan DO 703 [facility] 353 [place] [phone] Referring Physician Neurology 05/07/25 documented as of this encounter
--- OUTSIDE RECORDS SUMMARY | 2025-07-23 14:02 | XMS_ITS | Encounter Summary ---
Author Organization [facility] Address [address] [place] [address] Care Team Providers Care Block Splitter Operator Name Role Phone Khoa Godinez MD Primary Care Provider + [phone] Jude Beach MD Unavailable +[phone] Tiffanie Smyth DPM Unavailable +[phone] Khoa Godinez MD Unavailable +- [phone] Khoa Godinez MD Primary Care Provider +[phone] Larissa Leavitt RN Unavailable +[phone] Callie Mora MD Unavailable [phone] Skinny White MD Unavailable +[phone] Shani Mohan DO Unavailable [phone] Encounter Details Date Type Department Care Team (Late st Contact Info) Description 03/22/2024 Orders Only [facility] [place] 521 Family Medicine [address] [place] [address] Callie Mora MD [address] [phone] Social History Tobacco Use Types Packs/Day Years [...] 10/11/2025 10:45 AM EST Procedure Visit [facility] [facility] [address] [facility] [place] [address] Tiffanie Smyth, DPM [address] [place] [address] 10/22/2025 2:30 PM EST Office Visit [facility] [place] 100 Family Medicine [address] [address] Khoa Godinez MD 112 [place] [address] [address] (Fax) documented as of this encounter Procedures [...] filedocumented in this encounter Care Teams Block Splitter Operator Relationship Specialty Start Date End Date Khoa Godinez MD (Fax) PCP - General Family Medicine 04/08/23 09/12/24 Khoa Godinez MD 112 [place] [address] [address] (Fax) PCP - ACO Reach 12/31/23 Khoa Godinez MD 112 [place] [address] [address] PCP - General Family Medicine 12/27/24 Jude Beach MD 290 [place] [address] Referring Physician Urology 12/09/23 Tiffanie Smyth, DPM 1900 [place], [place] [address] Referring Physician Podiatry 12/09/23 Larissa Leavitt, RN 2500 [address] [facility] 230 [place] [address] Registered Nurse Family Medicine 02/13/25 Callie Mora MD 595 [place] [address] Referring Physician General Surgery 05/07/25 Skinny White MD 2600 [place] [address] Referring Physician Ophthalmology 05/07/25 Shani Mohan DO [address] [address] Referring Physician Neurology 05/07/25 documented as of this encounter
--- OUTSIDE RECORDS SUMMARY | 2025-07-23 14:02 | XMS_ITS | Encounter Summary ---
Author Organization [facility] Address [address] [place] [address] Care Team Providers Care Compensation Agent Name Role Phone Jude Beach MD Unavailable +[phone] Tiffanie Smyth DPM Unavailable +[phone] Khoa Godinez MD Unavailable +[phone] Khoa Godinez MD Primary Care Provider + [phone] Larissa Leavitt RN Unavailable +[phone] Callie Mora MD Unavailable +[phone] Skinny White MD Unavailable +[phone] Shani Mohan DO Unavailable [phone] Encounter Details Date Type Department Care Team (Latest Contact Info) Description 07/19/2025 Travel Social History Tobacco Use Types Packs/Day [...] week 06/18/2025 How often do you attend [facility] or latter-day services? More than 4 times per year 06/18/2025 Do you belong to any clubs o r organizations such as pentecostal groups, unions, fraternal or athletic groups, or [...] Recorded Patient Health Questionnaire-2 Score 0 05/07/2025 [facility] - [...] any time in the past 12 m [facility], were you homeless or living in a mcfp (including now)? No 06/18/2025 Sex and Gender [...] Visit [facility] [address] [facility] [place] [address] Tiffanie Smyth DPM [address] [place] [address] 10/22/2025 2:30 PM EST Office Visit [facility] [address] [place] [address] Khoa Godinez MD [address] [address] [place] [address] (Fax) documented as of this encounter Visit Diagnoses Not on filedocumented in this encounter Additional Health Concerns Assessment Noted Time PHQ-9 Depression Total Score: 1 05/07/20 25 10:00 AM EDT documented as of this encounter Care Teams Compensation Agent Relationship Specialty Start Date End Date Khoa Godinez MD [address] [address] [place] [address] PCP - ACO Reach 12/31/23 Khoa Godinez MD [address] [address] [place] [address] PCP - General Family Medicine 12/27/24 Jude Beach MD 290 [place] [address] Referring Physician Urology 12/09/23 Tiffanie Smyth DPM 1900 [place], [place] [phone] Referring Physician Podiatry 12/09/23 Larissa Leavitt, RN 2500 [address] [facility] 230 [place] [address] Registered Nurse Family Medicine 02/13/25 Callie Mora MD 595 [place] [address] Referring Physician General Surgery 05/07/25 Skinny White MD 2600 [place] [address] Referring Physician Ophthalmology 05/07/25 Shani Mohan DO [address] [phone] Referring Physician Neurology 05/07/25 documented as of this encounter
--- OUTSIDE RECORDS SUMMARY | 2025-07-23 14:02 | XMS_ITS | Encounter Summary ---
Author Organization [facility] Address [address] [place] [address] Care Team Providers Care Sample Shoe Inspector And Reworker Name Role Phone Khoa Godinez MD Primary Care Provider + [phone] Jude Beach MD Unavailable +[phone] Tiffanie Smyth DPM Unavailable +[phone] Khoa Godniez MD Unavailable +[phone] Khoa Godinez MD Primary Care Provider +[phone] Larissa Leavitt RN Unavailable +[phone] Callie Mora MD Unavailable +[phone] Skinny White MD Unavailable +[phone] Shani Mohan DO Unavailable [phone] Encounter Details Date Type Department Care Team (Late st Contact Info) Description 02/08/2024 Abstract [facility] 521 Family Medicine [address] [facility] [place] [address] Daron Saenz MD [address] [place] [place] [address] Social History Tobacco Use Types Packs/Day Years [...] Visit [facility] [address] [place] [address] Tiffanie Smyth DPM [address] [place] [address] 10/22/2025 2:30 PM EST Office Visit [facility] [address] [place] [address] Khoa Godinez MD [address] [place] [address] (Fax) documented as of this encounter Visit Diagnoses Not on filedocumented in this encounter Care Teams Sample Shoe Inspector And Reworker Relationship Specialty Start Date End Date Khoa Godinez MD (Fax) PCP - General Family Medicine 04/08/23 09/12/24 Khoa Godinez MD [address] [place] [address] (Fax) PCP - ACO Reach 12/31/23 Khoa Godinez MD [address] [place] [address] (Fax) PCP - General Family Medicine 12/27/24 Jude Beach MD [address] [place] [address] Referring Physician Urology 12/09/23 Tiffanie Smyth DPM 1900 [place] [address] Referring Physician Podiatry 12/09/23 Larissa Leavitt, CORDELL 2500 [address] [facility] 230 [place] [address] Registered Nurse Family Medicine 02/13/25 Callie Mora MD 595 [place] [address] Referring Physician General Surgery 05/07/25 Skinny White MD 2600 [place] [address] Referring Physician Ophthalmology 05/07/25 Shani Mohan DO [address] [phone] Referring Physician Neurology 05/07/25 documented as of this encounter
--- OUTSIDE RECORDS SUMMARY | 2025-07-23 14:02 | XMS_ITS | Encounter Summary ---
Author Organization [facility] Address [address] [place] [address] Care Team Providers Care Auditor Appraiser Name Role Phone Khoa Godinez MD Primary Care Provider + [phone] Jude Beach MD Unavailable +[phone] Tiffanie Smyth DPM Unavailable +[phone] Khoa Godinez MD Unavailable +[phone] Khoa Godinez MD Primary Care Provider +[phone] Larissa Leavitt RN Unavailable +[phone] Callie Mora MD Unavailable +[phone] Skinny White MD Unavailable +[phone] Shani Mohan DO Unavailable [phone] Encounter Details Date Type Department Care Team (Late st Contact Info) Description 03/09/2024 Abstract [facility] [place] 521 Family Medicine [address] [facility] [place] [address] Khoa Godinez MD [address] [facility] [address] [place] [address] Social History Tobacco Use Types Packs/Day Years [...] 10/11/2025 10:45 AM EST Procedure [facility] [address] [place] [address] Tiffanie Smyth DPM [address] [place] [address] 10/22/2025 2:30 PM EST Office Visit [facility] Family Medicine [address] [place] [address] Khoa Godinez MD [address] [place] [address] (Fax) documented as of this encounter Visit Diagnoses Not on filedocumented in this encounter Care Teams Auditor Appraiser Relationship Specialty Start Date End Date Khoa Godinez MD (Fax) PCP - General Family Medicine 04/08/23 09/12/24 Khoa Godinez MD [address] [address] (Fax) PCP - ACO Reach 12/31/23 Khoa Godinez MD [address] [place] [address] (Fax) PCP - General Family Medicine 12/27/24 Jude Beach MD 290 [place] [address] Referring Physician Urology 12/09/23 Tiffanie Smyth DPM [address] [place] [address] Referring Physician Podiatry 12/09/23 Larissa Leavitt, RN 2500 [address] [facility] 230 [place] [address] Registered Nurse Family Medicine 02/13/25 Callie Mora MD 595 [place] [address] Referring Physician General Surgery 05/07/25 Skinny White MD 2600 [place] [address] Referring Physician Ophthalmology 05/07/25 Shani Mohan DO 703 [facility] 353 [place] [phone] Referring Physician Neurology 05/07/25 documented as of this encounter
--- OUTSIDE RECORDS SUMMARY | 2025-07-23 14:02 | XMS_ITS | Encounter Summary ---
Author Organization [facility] Address [address] [place] [address] Care Team Providers Care Pack Room Operator Name Role Phone Khoa Godinez MD Primary Care Provider + [phone] Jude Beach MD Unavailable +[phone] Tiffanie Smyth DPM Unavailable +[phone] Khoa Godinez MD Unavailable +[phone] Khoa Godinez MD Primary Care Provider +[phone] Larissa Leavitt RN Unavailable +[phone] Callie Mora MD Unavailable +[phone] Skinny White MD Unavailable +[phone] Shani Mohan DO Unavailable [phone] Reason for Visit * Reason Comments Med Refill Encounter Details Date Type Department Care Team (Late st Contact Info) Description 05/01/2024 Refill [facility] [place] 521 Family Medicine [address] [place] [address] Khoa Godinez MD 112 [facility] [address] [place] [address] (Fax) Essential hypertension ; Type 2 diabetes [...] Procedure Visit [facility] [address] [place] [address] Tiffanie Smyth, DPM [address] [facility] [place], [place] [address] 10/22/2025 2:30 PM EST Office Visit [facility] [address] [address] Khoa Godinez MD [address] [address] (Fax) documented as of this encounter Visit Diagnoses Diagnosis Essential hypertension Unspecified essential hypertension Type 2 diabetes mellitus with hyperglycemia, without long-term current use of insulin (HCC) Mixed hyperlipidemia Mixed hyperlipidemia documented in this encounter Additional Health Concerns Assessment Noted Time PHQ-9 Depression Total Score: 2 04/03/20 24 11:00 AM EDT documented as of this encounter Care Teams Pack Room Operator Relationship Specialty Start Date End Date Khoa Godinez MD (Fax) PCP - General Family Medicine 04/08/23 09/12/24 Khoa Godinez MD [address] [address] (Fax) PCP - ACO Reach 12/31/23 Khoa Godinez MD [address] [address] (Fax) PCP - General Family Medicine 2/26/25 Jude Beach MD 290 [place] [address] Referring Physician Urology 12/09/23 Tiffanie Smyth DPWei 1900 [place], [place] [address] Referring Physician Podiatry 12/09/23 Larissa Leavitt, RN 2500 [address] [facility] 230 [place], [place] [address] Registered Nurse Family Medicine 02/13/25 Callie Mora MD 595 [place] [address] Referring Physician General Surgery 05/07/25 Skinny White MD [address] [place] [address] Referring Physician Ophthalmology 05/07/25 Shani Mohan DO [address] [address] Referring Physician Neurology 05/07/25 documented as of this encounter
--- OUTSIDE RECORDS SUMMARY | 2025-07-23 14:02 | XMS_ITS | Encounter Summary ---
Author Organization [facility] Address [address] [facility] [place] [address] Care Team Providers Care Medical Device Sales Representative Name Role Phone Khoa Godinez MD Primary Care Provider + [phone] Jude Beach MD Unavailable +[phone] Tiffanie Smyth DPM Unavailable +[phone] Khoa Godinez MD Unavailable +[phone] Khoa Godinez MD Primary Care Provider +[phone] Larissa Leavitt RN Unavailable +[phone] Callie Mora MD Unavailable +[phone] Skinny White MD Unavailable +[phone] Shani Mohan DO Unavailable [phone] Reason for Visit * Reason Onset Date Comments Med Refill 06/09/2024 Encounter Details Date Type Department Care Team (Late st Contact Info) Description 06/09/2024 Refill [facility] 100 Family Medicine 112 [facility] 100 [place] [address] Khoa Godinez MD 112 [facility] 100 [place] [address] (Fax) Type 2 diabetes mellitus with hyperglycemia, [...] Procedure Visit [facility] [address] [facility] [place] [address] Tiffanie Smyth, DPM [address] [place], [place] [address] 10/22/2025 2:30 PM EST Office Visit [facility] [address] [place] [address] Khoa Godinez MD [address] [address] (Fax) documented as of this encounter Visit Diagnoses Diagnosis Type 2 diabetes mellitus with hyperglycemia, without long-term current use of insulin (HCC) documented in this encounter Additional Health Concerns Assessment Noted Time PHQ-9 Depression Total Score: 2 04/03/20 24 11:00 AM EDT documented as of this encounter Care Teams Medical Device Sales Representative Relationship Specialty Start Date End Date Khoa Godinez MD (Fax) PCP - General Family Medicine 04/08/23 09/12/24 Khoa Godinez MD [address] [address] (Fax) PCP - ACO Reach 12/31/23 Khoa Godinez MD [address] [place] [address] PCP - General Family Medicine 12/27/24 Jude Beach MD 290 [place] [address] Referring Physician Urology 12/09/23 Tiffanie Smyth DPM 1900 [place] [address] Referring Physician Podiatry 12/09/23 Larissa Leavitt, RN [address] [facility] [facility] 230 [place] [address] Registered Nurse Family Medicine 02/13/25 Callie Mora MD 595 [facility] [place] [address] Referring Physician General Surgery 05/07/25 Skinny White MD 2600 [place] [address] Referring Physician Ophthalmology 05/07/25 Shani Mohan DO [address] [phone] Referring Physician Neurology 05/07/25 documented as of this encounter
--- OUTSIDE RECORDS SUMMARY | 2025-07-23 14:02 | XMS_ITS | Encounter Summary ---
Author Organization [facility] Address [address] [place] [address] Care Team Providers Care Guyline Operator Name Role Phone Jude Beach MD Unavailable [phone] Tiffanie Smyth DPM Unavailable +[phone] Khoa Godinez MD Unavailable +[phone] Khoa Godinez MD Primary Care Provider +[phone] Larissa Leavitt RN Unavailable +[phone] Callie Mora MD Unavailable +[phone] Skinny White MD Unavailable [phone] Shani Mohan DO Unavailable [phone] Encounter Details Date Type Department Care Team (Late st Contact Info) Description 07/12/2025 Bamboo flowsheet [facility] 1900 [place] [address] Tiffanie Smyth, DPM 1900 [place], [place] [address] Social History Tobacco Use Types Packs/Day Years [...] often do you attend chur ch or mormon services? More than 4 times per year 06/18/2025 Do you belong to any clubs o r organizations such as roman catholic groups, unions, fraternal or athletic groups, or [...] Recorded Patient Health Questionnaire-2 Score 0 05/07/2025 [facility] - Occupational Stress [...] any time in the past 12 m [facility], were you homeless or living in a long-term (including now)? No 06/18/2025 Sex and Gender [...] Visit [facility] [address] [place] [address] Tiffanie Smyth DPM [address] [place] [address] 10/22/2025 2:30 PM EST Office Visit [facility] 112 [facility] [address] 100 [place] [address] Khoa Godinez MD 112 [facility] 100 [place] [address] documented as of this encounter Visit Diagnoses Not on filedocumented in this encounter Additional Health Concerns Assessment Noted Time PHQ-9 Depression Total Score: 1 05/07/20 25 10:00 AM EDT documented as of this encounter Care Teams Guyline Operator Relationship Specialty Start Date End Date Khoa Godinez MD [address] [place] [address] PCP - ACO Reach 12/31/23 Khoa Godinez MD [address] [place] [address] PCP - General Family Medicine 12/27/24 Jude Beach MD 290 [place] [address] Referring Physician Urology 12/09/23 Tiffanie Smyth DPM 1900 [place] [address] Referring Physician Podiatry 12/09/23 Larissa Leavitt, CORDELL 2500 [address] [facility] 230 [place] [address] Registered Nurse Family Medicine 02/13/25 Callie Mora MD 595 [place] [address] Referring Physician General Surgery 05/07/25 Skinny White MD 2600 [place] [address] Referring Physician Ophthalmology 05/07/25 Shani Mohan DO [address] [phone] Referring Physician Neurology 05/07/25 documented as of this encounter
--- OUTSIDE RECORDS SUMMARY | 2025-07-23 14:02 | XMS_ITS | Encounter Summary ---
Author Organization [facility] Address [address] [place] [address] Care Team Providers Care Mall Plant Caretaker Name Role Phone Khoa Godinez MD Primary Care Provider + [phone] Jude Beach MD Unavailable +[phone] Tiffanie Smyth DPM Unavailable +[phone] Khoa Godinez MD Unavailable +[phone] Khoa Godinez MD Primary Care Provider +[phone] Larissa Leavitt RN Unavailable +[phone] Callie Mora MD Unavailable +[phone] Skinny White MD Unavailable +[phone] Shani Mohan DO Unavailable [phone] Encounter Details Date Type Department Care Team (Late st Contact Info) Description 02/08/2024 Abstract [facility] [place] [facility] [address] [place] [address] Daron Saenz MD [address] [place] [address] Social History Tobacco Use Types Packs/Day Years [...] Visit [facility] [address] [address] Tiffanie Smyth DPM [address] [place] [address] 10/22/2025 2:30 PM EST Office Visit [facility] Family Medicine [address] [place] [address] Khoa Godinez MD [address] [place] [address] (Fax) documented as of this encounter Visit Diagnoses Not on filedocumented in this encounter Care Teams Mall Plant Caretaker Relationship Specialty Start Date End Date Khoa Godinez MD (Fax) PCP - General Family Medicine 04/08/23 09/12/24 Khoa Godinez MD [address] [place] [address] (Fax) PCP - ACO Reach 12/31/23 Khoa Godinez MD [address] [place] [address] (Fax) PCP - General Family Medicine 12/27/24 Jude Beach MD [address] [place] [address] Referring Physician Urology 12/09/23 Tiffanie Smyth DPM 1900 [place] [address] Referring Physician Podiatry 12/09/23 Larissa Leavitt, CORDELL 2500 W [facility] 230 [place] [address] Registered Nurse Family Medicine 02/13/25 Callie Mora MD 595 [place] [address] Referring Physician General Surgery 05/07/25 Skinny White MD 2600 [place] [address] Referring Physician Ophthalmology 05/07/25 Shani Mohan DO [address] [phone] Referring Physician Neurology 05/07/25 documented as of this encounter
--- OUTSIDE RECORDS SUMMARY | 2025-07-23 14:02 | XMS_ITS | Encounter Summary ---
Author Organization [facility] Address [address] [place] [address] Care Team Providers Care Electroplater Helper Name Role Phone Jude Beach MD Unavailable +[phone] Tiffanie Smyth DPM Unavailable +[phone] Khoa Godinez MD Unavailable +[phone] Khoa Godinez MD Primary Care Provider + [phone] Larissa Leavitt RN Unavailable +[phone] Callie Mora MD Unavailable +[phone] Skinny White MD Unavailable [phone] Shani Mohan DO Unavailable [phone] Encounter Details Date Type Department Care Team (Latest Contact Info) Description 07/12/2025 Travel Social History Tobacco Use Types Packs/Day [...] week 06/18/2025 How often do you attend [facility] or sikhism services? More than 4 times per year 06/18/2025 Do you belong to any clubs o r organizations such as latter-day groups, unions, fraternal or athletic groups, or [...] Recorded Patient Health Questionnaire-2 Score 0 05/07/2025 [facility] - Occupational [...] any time in the past 12 m [facility], were you homeless or living in a halfway (including now)? No 06/18/2025 Sex and Gender [...] [address] [facility] [address] Tiffanie Smyth DPM [address] [place] [address] 10/22/2025 2:30 PM EST Office Visit [facility] [address] [place] [address] Khoa Godinez MD [address] [address] [place] [address] (Fax) documented as of this encounter Visit Diagnoses Not on filedocumented in this encounter Additional Health Concerns Assessment Noted Time PHQ-9 Depression Total Score: 1 05/07/20 25 10:00 AM EDT documented as of this encounter Care Teams Electroplater Helper Relationship Specialty Start Date End Date Khoa Godinez MD [address] [address] [place] [address] PCP - ACO Reach 12/31/23 Khoa Godinez MD [address] [address] [place] [address] PCP - General Family Medicine 12/27/24 Jude Beach MD 290 [place] [address] Referring Physician Urology 12/09/23 Tiffanie Smyth DPM 1900 [place], [place] [address] Referring Physician Podiatry 12/09/23 Larissa Leavitt, RN 2500 W [facility] 230 [place] [address] Registered Nurse Family Medicine 02/13/25 Callie Mora MD 595 [place] [address] Referring Physician General Surgery 05/07/25 Skinny White MD 2600 [place] [address] Referring Physician Ophthalmology 05/07/25 Shani Mohan DO [address] [phone] Referring Physician Neurology 05/07/25 documented as of this encounter
--- OUTSIDE RECORDS SUMMARY | 2025-07-23 14:02 | XMS_ITS | Encounter Summary ---
Author Organization [facility] Address [address] [place] [address] Care Team Providers Care House Father Name Role Phone Khoa Godinez MD Primary Care Provider + [phone] Jude Beach MD Unavailable +[phone] Tiffanie Smyth DPM Unavailable [phone] Khoa Godinez MD Unavailable +[phone] Khoa Godinez MD Primary Care Provider +[phone] Larissa Leavitt RN Unavailable +[phone] Callie Mora MD Unavailable +[phone] Skinny White MD Unavailable +[phone] Shani Mohan DO Unavailable [phone] Encounter Details Date Type Department Care Team (Late st Contact Info) Description 02/08/2024 Abstract [facility] [place] [facility] [address] [place] [address] Daron Saenz MD [address] [place] [address] Social History Tobacco Use Types Packs/Day Years [...] Visit [facility] [address] [place] [address] Tiffanie Smyth DPM [address] [place] [address] 10/22/2025 2:30 PM EST Office Visit [facility] Family Medicine [address] [place] [address] Khoa Godinez MD [address] [place] [address] (Fax) documented as of this encounter Visit Diagnoses Not on filedocumented in this encounter Care Teams House Father Relationship Specialty Start Date End Date Khoa Godinez MD (Fax) PCP - General Family Medicine 04/08/23 09/12/24 Khoa Godinez MD [address] [place] [address] (Fax) PCP - ACO Reach 12/31/23 Khoa Godinez MD [address] [place] [address] (Fax) PCP - General Family Medicine 12/27/24 Jude Beach MD [address] [place] [address] Referring Physician Urology 12/09/23 Tiffanie Smyth DPM 1900 [place] [address] Referring Physician Podiatry 12/09/23 Larissa Leavitt, CORDELL 2500 W [facility] 230 [place] [address] Registered Nurse Family Medicine 02/13/25 Callie Mora MD 595 [place] [address] Referring Physician General Surgery 05/07/25 Skinny White MD 2600 [place] [address] Referring Physician Ophthalmology 05/07/25 Shani Mohan DO [address] [phone] Referring Physician Neurology 05/07/25 documented as of this encounter
--- OUTSIDE RECORDS SUMMARY | 2025-07-23 14:02 | XMS_ITS | Encounter Summary ---
Author Organization [facility] Address [address] [place] [address] Care Team Providers Care Lead Neurodiagnostic Technologist Name Role Phone Khoa Godinez MD Primary Care Provider + [phone] Jude Beach MD Unavailable +[phone] Tiffanie Smyth DPM Unavailable +[phone] Khoa Godinez MD Unavailable +[phone] Khoa Godinez MD Primary Care Provider +[phone] Larissa Leavitt RN Unavailable +[phone] Callie Mora MD Unavailable +[phone] Skinny White MD Unavailable +[phone] Shani Mohan DO Unavailable [phone] Encounter Details Date Type Department Care Team (Late st Contact Info) Description 02/09/2024 Abstract [facility] [place] 521 Family Medicine [address] [place] [address] Daron Saenz MD [address] [place] [place] [address] Social History Tobacco Use Types Packs/Day Years [...] Visit [facility] [address] [place] [address] Tiffanie Smyth DPM [address] [place] [address] 10/22/2025 2:30 PM EST Office Visit [facility] Formerly named [facility] Family Medicine [address] [place] [address] Khoa Godinez MD [address] [place] [address] (Fax) documented as of this encounter Visit Diagnoses Not on filedocumented in this encounter Care Teams Lead Neurodiagnostic Technologist Relationship Specialty Start Date End Date Khoa Godinez MD (Fax) PCP - General Family Medicine 04/08/23 09/12/24 Khoa Godinez MD [address] [place] [address] (Fax) PCP - ACO Reach 12/31/23 Khoa Godinez MD [address] [place] [address] (Fax) PCP - General Family Medicine 12/27/24 Jude Beach MD [address] [place] [address] Referring Physician Urology 12/09/23 Tiffanie Smyth DPM 1900 [place] [address] Referring Physician Podiatry 12/09/23 Larissa Leavitt, CORDELL [address] [facility] 230 [place] [address] Registered Nurse Family Medicine 02/13/25 Callie Mora MD 595 [place] [address] Referring Physician General Surgery 05/07/25 Skinny White MD 2600 [place] [address] Referring Physician Ophthalmology 05/07/25 Shani Mohan DO [address] [phone] Referring Physician Neurology 05/07/25 documented as of this encounter
--- OUTSIDE RECORDS SUMMARY | 2025-07-23 14:02 | XMS_ITS | Encounter Summary ---
Author Organization [facility] Address [address] [place] [address] Care Team Providers Care Log Roller Name Role Phone Khoa Godinez MD Primary Care Provider + [phone] Jude Beach MD Unavailable +[phone] Tiffanie Smyth DPM Unavailable +[phone] Khoa Godinez MD Unavailable +[phone] Khoa Godinez MD Primary Care Provider +[phone] Larissa Leavitt RN Unavailable +[phone] Callie Mora MD Unavailable +[phone] Skinny White MD Unavailable +[phone] Shani Mohan DO Unavailable [phone] Encounter Details Date Type Department Care Team (Late st Contact Info) Description 02/27/2024 Orders Only [facility] [place] 521 Family Medicine [address] [facility] [place] [address] Khoa Godinez MD 112 [facility] [address] [place] [address] Social History Tobacco Use Types [...] 10/11/2025 10:45 AM EST Procedure Visit [facility] [address] [place] [address] Tiffanie Smyth DPM [address] [place] [address] 10/22/2025 2:30 PM EST Office Visit [facility] Family Medicine [address] [place] [address], [place] [address] Khoa Godinez MD [address] [address] (Fax) documented as of this encounter Visit Diagnoses Not on filedocumented in this encounter Care Teams Log Roller Relationship Specialty Start Date End Date Khoa Godinez MD (Fax) PCP - General Family Medicine 04/08/23 09/12/24 Khoa Godinez MD [address] [address] (Fax) PCP - ACO Reach 12/31/23 Khoa Godinez MD [address] [place] [address] (Fax) PCP - General Family Medicine 12/27/24 Jude Beach MD 290 [place] [address] Referring Physician Urology 12/09/23 Tiffanie Smyth DPM 190 [place] [address] Referring Physician Podiatry 12/09/23 Larissa Leavitt, RN [address] [facility] 230 [place] [address] Registered Nurse Family Medicine 02/13/25 Callie Mora MD 595 [place] [address] Referring Physician General Surgery 05/07/25 Skinny White MD 2600 [place] [address] Referring Physician Ophthalmology 05/07/25 Shani Mohan DO [address] [phone] Referring Physician Neurology 05/07/25 documented as of this encounter
--- OUTSIDE RECORDS SUMMARY | 2025-07-23 14:02 | XMS_ITS | Encounter Summary ---
Author Organization [facility] Address [address] [place] [address] Care Team Providers Care Agricultural Extension Officer Name Role Phone Khoa Godinez MD Primary Care Provider + [phone] Jude Beach MD Unavailable +[phone] Tiffanie Smyth DPM Unavailable +[phone] Khoa Godinez MD Unavailable +[phone] Khoa Godinez MD Primary Care Provider + [phone] Larissa Leavitt RN Unavailable +[phone] Callie Mora MD Unavailable +[phone] Skinny White MD Unavailable +[phone] Shani Mohan DO Unavailable [phone] Encounter Details Date Type Department Care Team (Late st Contact Info) Description 02/21/2024 Abstract [facility] [place] 521 Family Medicine [address] [facility] [place] [address] Khoa Godinez MD 112 [facility] [address] [place] [address] Social History Tobacco Use Types [...] 10/11/2025 10:45 AM EST Procedure Visit [facility] [address] [place] [address] Tiffanie Smyth DPM [address] [place] [address] 10/22/2025 2:30 PM EST Office Visit [facility] Antonino [facility] Family Medicine [address] [place] [address] Khoa Godinez MD [address] [place] [address] (Fax) documented as of this encounter Visit Diagnoses Not on filedocumented in this encounter Care Teams Agricultural Extension Officer Relationship Specialty Start Date End Date Khoa Godinez MD (Fax) PCP - General Family Medicine 04/08/23 09/12/24 Khoa Godinez MD [address] [address] (Fax) PCP - ACO Reach 12/31/23 Khoa Godinez MD [address] [place] [address] (Fax) PCP - General Family Medicine 12/27/24 Jude Beach MD 290 [place] [address] Referring Physician Urology 12/09/23 Tiffanie Smyth DPM [address] [place] [address] Referring Physician Podiatry 12/09/23 Larissa Leavitt, RN 2500 [address] [facility] 230 [place] [address] Registered Nurse Family Medicine 02/13/25 Callie Mora MD 595 [facility] [place] [address] Referring Physician General Surgery 05/07/25 Skinny White MD 2600 [place] [address] Referring Physician Ophthalmology 05/07/25 Shani Mohna DO 703 [facility] 353 [place] [address] Referring Physician Neurology 05/07/25 documented as of this encounter
--- OUTSIDE RECORDS SUMMARY | 2025-07-23 14:02 | XMS_ITS | Encounter Summary ---
Author Organization [facility] Address [address] [facility] [place] [address] Care Team Providers Care Classification And Treatment Director Name Role Phone Khoa Godinez MD Primary Care Provider + [phone] Jude Beach MD Unavailable +[phone] Tiffanie Smyth DPM Unavailable +[phone] Khoa Godinez MD Unavailable +[phone] Khoa Godinez MD Primary Care Provider +[phone] Larissa Leavitt RN Unavailable +[phone] Callie Mora MD Unavailable +[phone] Skinny White MD Unavailable +[phone] Shani Mohan DO Unavailable [phone] Encounter Details Date Type Department Care Team (Late st Contact Info) Description 02/08/2024 Orders Only [facility] [place] 521 Family Medicine [address] [place] [address] Calvin Wallace DO [address] [place] [address] Social History Tobacco Use Types Packs/Day Years [...] 10/11/2025 10:45 AM EST Procedure Visit [facility] [place] [facility] [address] [facility] [place] [address] Tiffanie Smyth, DPM [address] [place] [address] 10/22/2025 2:30 PM EST Office Visit [facility] [place] 100 Family Medicine 112 [facility] 100 [place] [address] Khoa Godinez MD [address] [address] (Fax) documented as of this encounter Procedures [...] on filedocumented in this encounter Care Teams Classification And Treatment Director Relationship Specialty Start Date End Date Khoa Godinez MD (Fax) PCP - General Family Medicine 04/08/23 09/12/24 Khoa Godinez MD 112 [facility] 100 [place] [address] PCP - ACO Reach 12/31/23 Khoa Godinez MD [address] [place] [address] PCP - General Family Medicine 12/27/24 Jude Beach MD 290 [place], [place] [address] Referring Physician Urology 12/09/23 Tiffanie Smyth DPM 1900 [place], [place] [address] Referring Physician Podiatry 12/09/23 Larissa Leavitt, RN [address] [facility] 230 [place] [address] Registered Nurse Family Medicine 02/13/25 Callie Mora MD 595 [place] [address] Referring Physician General Surgery 05/07/25 Skinny White MD 2600 [place] [address] Referring Physician Ophthalmology 05/07/25 Shani Mohan DO 703 [facility] 353 [place] [address] Referring Physician Neurology 05/07/25 documented as of this encounter
--- OUTSIDE RECORDS SUMMARY | 2025-07-23 14:02 | XMS_ITS | Encounter Summary ---
Author Organization [facility] Address [address] [place] [address] Care Team Providers Care Apron Man Name Role Phone Jude Beach MD Unavailable +[phone] Tiffanie Smyth DPM Unavailable +[phone] Khoa Godinez MD Unavailable +[phone] Khoa Godinez MD Primary Care Provider +[phone] Larissa Leavitt RN Unavailable +[phone] Callie Mora MD Unavailable +[phone] Skinny White MD Unavailable +[phone] Shani Mohan DO Unavailable [phone] Reason for Visit * Reason Comments Med Change Request Encounter Details Date Type Department Care Team (Late st Contact Info) Description 02/10/2025 Refill [facility] [place] 100 Family Medicine 112 [facility] 100 [place] [address] Khoa Godinez MD 112 [facility] 100 [place] [address] (Fax) Type 2 diabetes mellitus with hyperglycemia, [...] 10/11/2025 10:45 AM EST Procedure Visit [facility] [place] [facility] [address] [place] [address] Tiffanie Smyth DPM [address] [place] [address] 10/22/2025 2:30 PM EST Office Visit [facility] [place] Family Medicine [address] [place] [address] Khoa Godinez MD [address] [address] (Fax) documented as of this encounter Visit Diagnoses Diagnosis Type 2 diabetes mellitus with hyperglycemia, without long-term current use of insulin (HCC) documented in this encounter Additional Health Concerns Assessment Noted Time PHQ-9 Depression Total Score: 2 04/03/20 24 11:00 AM EDT documented as of this encounter Care Teams Apron Man Relationship Specialty Start Date End Date Khoa Godinez MD [address] [address] (Fax) PCP - ACO Reach 12/31/23 Khoa Godinez MD [address] [address] PCP - General Family Medicine 12/27/24 Jude Beach MD [address] [place] [address] Referring Physician Urology 12/09/23 Tiffanie Smyth DPM [address] [place] [address] Referring Physician Podiatry 12/09/23 Larissa Leavitt, RN 2500 [address] [facility] 230 [place] [address] Registered Nurse Family Medicine 02/13/25 Callie Mora MD 595 [facility] [place] [address] Referring Physician General Surgery 05/07/25 Skinny White MD 2600 [place] [address] Referring Physician Ophthalmology 05/07/25 Shani Mohan DO 703 [facility] 353 [place] [address] Referring Physician Neurology 05/07/25 documented as of this encounter
--- OUTSIDE RECORDS SUMMARY | 2025-07-23 14:02 | XMS_ITS | Encounter Summary ---
Author Organization [facility] Address [address] [place] [address] Care Team Providers Care Diving Board Assembler Name Role Phone Jude Beach MD Unavailable [phone] Tiffanie Smyth DPM Unavailable +[phone] Khoa Godinez MD Unavailable +[phone] Khoa Godinez MD Primary Care Provider + [phone] Larissa Leavitt RN Unavailable +[phone] Callie Mora MD Unavailable +[phone] Skinny White MD Unavailable +[phone] Shani Mohan DO Unavailable [phone] Encounter Details Date Type Department Care Team (Late st Contact Info) Description 07/16/2025 Patient Outreach [facility] [address] [place] [address] Larissa Leavitt, RN [address] [place] [address] Social History Tobacco Use Types Packs/Day Years [...] How often do you attend chur or hinduism services? More than 4 times per year 06/18/2025 Do you belong to any clubs o r organizations such as catholic groups, unions, fraternal or athletic groups, [...] Patient Health Questionnaire-2 Score 0 05/07/2025 [facility] - Occupational Stress Questionnaire Answer Date Recorded [...] any time in the past 12 m [facility], were you homeless or living in [...] Progress Notes * Larissa Leavitt RN - 07/16/2025 1:15 PM EDT Faxed request to [facility] medical records for ED note from 07/13 <July 16, 2025, 17:05 - Larissa Leavitt RN> Called [facility], completed er cr. * Larissa Leavitt RN - 07/16/2025 1:15 PM EDT Images from the original note were not included. Flowsheet Row Patient Outreach from 07/16/2025 in [facility] with Larissa Leavitt RN Hospital Information ED, Hospital or Nursing Home Facility Discharge? ED Patient has been contacted within 2 days of being seen in the ED Yes Diagnosis Vertigo Discharge Date 07/13/25 Discharged To: Home Setting Discharge [facility] [place] [facility] Engagement Call Start Time 1705 Admission [...] Meclizine. spinning resolved. Call End Time 1721 documented in this encounter Plan of Treatment Upcoming Encounters Date Type Department Care Team (Late st Contact Info) Description 10/11/2025 10:45 AM EST Procedure Visit [facility] 1900 [place] [address] Tiffanie Smyth DPM 1900 [place] [address] 10/22/2025 2:30 PM EST Office Visit [facility] 112 [facility] 100 [place] [address] Khoa Godinez MD 112 [facility] 100 [place] [address] documented as of this encounter Visit Diagnoses Diagnosis Vertigo- Primary Dizziness and giddiness Type 2 diabetes mellitus with diabetic neuropathic arthropathy, with long-term current use of insulin (HCC) Primary hypertension Unspecified essential hypertension documented in this encounter Additional Health Concerns Assessment Noted Time PHQ-9 Depression Total Score: 1 05/07/20 25 10:00 AM EDT documented as of this encounter Care Teams Diving Board Assembler Relationship Specialty Start Date End Date Khoa Godinez MD [address] [address] PCP - ACO Reach 12/31/23 Khoa Godinez MD 112 [facility] 100 [place] [address] PCP - General Family Medicine 12/27/24 Jude Beach MD [address] [place] [address] Referring Physician Urology 12/09/23 Tiffanie Smyth DPM 1900 [place] [address] Referring Physician Podiatry 12/09/23 Larissa Leavitt, CORDELL 2500 W [facility] 230 [place] [address] Registered Nurse Family Medicine 02/13/25 Callie Mora MD 595 [place] [address] Referring Physician General Surgery 05/07/25 Skinny White MD 2600 [place], [place] [address] Referring Physician Ophthalmology 05/07/25 Shani Mohan DO [address] [phone] Referring Physician Neurology 05/07/25 documented as of this encounter
--- OUTSIDE RECORDS SUMMARY | 2025-07-23 14:02 | XMS_ITS | Encounter Summary ---
Author Organization [facility] Address [address] [place] [address] Care Team Providers Care Mult Au Matic Operator Name Role Phone Khoa Bowles MD Primary Care Provider + [phone] Jude Wood MD Unavailable +[phone] Tiffanie Smyth DPM Unavailable +[phone] Khoa Bowles MD Unavailable [phone] Khoa Bowles MD Primary Care Provider +[phone] Larissa Leavitt RN Unavailable +[phone] Callie Mora MD Unavailable +[phone] Skinny White MD Unavailable +[phone] Shani Mohan DO Unavailable [phone] Encounter Details Date Type Department Care [...] Procedure Visit [facility] [address] [place] [address] Tiffanie Smyth DPM [address] [place], [place] [address] 10/22/2025 2:30 PM EST Office Visit [address] Medicine 112 [facility] 100 [place] [address] Khoa Bowles MD 112 [facility] 100 [place] [address] documented as of this encounter Procedures Procedure Name Priority Date/Time Associated Diagnosis Comments XR ABDOMEN 1V 07/15/2023 11:48 AM EDT documented in this encounter Results * XR ABDOMEN 1V (07/15/2023 11:48 AM EDT) Anatomical Region Laterality Modality Other 07/15/2023 11:4 8 AM EDT Narrative 07/15/2023 11:48 AM EDT [address] [address] XRay Report Signed Patient: MANUEL BALDERAS MR#: [id number] : 1950 Acct:[id number] Age/Sex: 73 / M ADM Date: 07/15/23 Loc: RAD Attending Dr: Jude Wood M.D. Ordering Physician: Jude Wood M.D. Date of Service: 07/15/23 Procedure(s): XR abdomen 1V Accession Number(s): [id number] cc: KHOA BOWLES ; Jude Wood M.D. [address] [address] Patient Name: MANUEL BALDERAS MRN: [id number] date: 1950 Sex: M Assigned Patient Location: RAD Current Patient Location: RAD Accession/Order Number: [id number] Exam Date: 07/15/2023 10:10 Report Date: 07/15/2023 [...] Signed By: 07/15/23 1150 DD/ 1148 TD/TT: Marketing Business Analyst: Procedure Note Radiology, Radiologist, MD - 07/23/2023 [place] [address] XRay Report Signed Patient: MANUEL BALDERAS R#: [id number] : 1950Acct:[id number] Age/Sex: 73 / MADM Date: 07/15/23 Loc: RAD Attending Dr: Jude Wood M.D. Ordering Physician: Jude Wood M.D. Date of Service: 07/15/23 Procedure(s): XR abdomen 1V Accession Number(s): [id number] cc: KHOA BOWLES ; Jude Wood M.D. The [place] [address] Patient Name: MANUEL BALDERAS MRN: [id number] date: 1950 Sex: M Assigned Patient Location: RAD Current Patient Location: RAD Accession/Order Number: [id number] Exam Date: 07/15/2023 10:10 Report Date: 07/15/2023 [...] M.D. Signed By:07/15/23 1150 DD/ 1148 TD/TT: Marketing Business Analyst: Generic External Data Provider [facility] Final Result documented in this encounter Visit Diagnoses Not on filedocumented in this encounter Care Teams Mult Au Matic Operator Relationship Specialty Start Date End Date Khoa Bowles MD (Fax) PCP - General Family Medicine 04/08/23 09/12/24 Khoa Bowles MD [address] [address] (Fax) PCP - ACO Reach 12/31/23 Khoa Bowles MD [address] [address] (Fax) PCP - General Family Medicine 12/27/24 Jude Wood MD [address] [place] [address] Referring Physician Urology 12/09/23 Tiffanie Smyth DPM [address] [place], [place] [address] Referring Physician Podiatry 12/09/23 Larissa Leavitt, CORDELL [address] [place] [address] Registered Nurse Family Medicine 02/13/25 Callie Mora MD 595 [facility] [place] [address] Referring Physician General Surgery 05/07/25 Skinny White MD [address] [place] [address] Referring Physician Ophthalmology 05/07/25 Shani Mohan DO [address] [place] [phone] Referring Physician Neurology 05/07/25 documented as of this encounter
--- OUTSIDE RECORDS SUMMARY | 2025-07-23 14:02 | XMS_ITS | Encounter Summary ---
Author Organization [facility] Address [address] [place] [address] Care Team Providers Care Wire Technician Name Role Phone Khoa Godinez MD Primary Care Provider + [phone] Jude Beach MD Unavailable +[phone] Tiffanie Smyth DPM Unavailable [phone] Khoa Godinez MD Unavailable +[phone] Khoa Godinez MD Primary Care Provider + [phone] Larissa Leavitt RN Unavailable +[phone] Callie Mora MD Unavailable +[phone] Skinny White MD Unavailable +[phone] Shani Mohan DO Unavailable [phone] Encounter Details Date Type Department Care Team (Late st Contact Info) Description 02/21/2024 Abstract [facility] [place] 521 Family Medicine [address] [place] [address] Khoa Godinez MD 112 [facility] [address] [place] [address] Social History Tobacco Use Types [...] 10/11/2025 10:45 AM EST Procedure Visit [facility] [address] [place] [address] Tiffanie Smyth DPM [address] [place] [address] 10/22/2025 2:30 PM EST Office Visit [facility] Antonino [facility] Family Medicine [address] [place] [address] Khoa Godinez MD [address] [place] [address] (Fax) documented as of this encounter Visit Diagnoses Not on filedocumented in this encounter Care Teams Wire Technician Relationship Specialty Start Date End Date Khoa Godinez MD (Fax) PCP - General Family Medicine 04/08/23 09/12/24 Khoa Godinez MD [address] [address] (Fax) PCP - ACO Reach 12/31/23 Khoa Godinez MD [address] [place] [address] (Fax) PCP - General Family Medicine 12/27/24 Jude Beach MD 290 [place] [address] Referring Physician Urology 12/09/23 Tiffanie Smyth DPM [address] [place] [address] Referring Physician Podiatry 12/09/23 Larissa Leavitt, RN 2500 [address] [facility] 230 [place] [address] Registered Nurse Family Medicine 02/13/25 Callie Mora MD 595 [facility] [place] [address] Referring Physician General Surgery 05/07/25 Skinny White MD 2600 [place] [address] Referring Physician Ophthalmology 05/07/25 Shani Mohan DO 703 [facility] 353 [place] [address] Referring Physician Neurology 05/07/25 documented as of this encounter
--- OUTSIDE RECORDS SUMMARY | 2025-07-23 14:02 | XMS_ITS | Encounter Summary ---
Author Organization [facility] Address [address] [place] [address] Care Team Providers Care Freelance Interpreter/Translator Name Role Phone Khoa Bowles MD Primary Care Provider + [phone] Jude Wood MD Unavailable +[phone] Tiffanie Smyth DPM Unavailable [phone] Khoa Bowles MD Unavailable [phone] Khoa Bowles MD Primary Care Provider +[phone] Larissa Leavitt RN Unavailable +[phone] Callie Mora MD Unavailable [phone] Skinny White MD Unavailable [phone] Shani Mohan DO Unavailable [phone] Encounter Details Date Type Department Care [...] Procedure Visit [facility] [address] [facility] [place] [address] Tiffanie Smyth DPWei [address] [address] 10/22/2025 2:30 PM EST [facility] Family [facility] 112 [facility] 100 [place] [address] Khoa Bowles MD 112 [facility] 100 [place] [address] documented as of this encounter Procedures Procedure Name Priority Date/Time Associated Diagnosis Comments XR ABDOMEN 1V 09/02/2024 6:56 AM EDT documented in this encounter Results * XR ABDOMEN 1V (09/02/2024 6:56 AM EDT) Anatomical Region Laterality Modality Other 09/02/2024 6:56 AM EDT Narrative 09/02/2024 6:59 AM EDT [address] [address] XRay Report Signed Patient: MANUEL BALDERAS MR#: [id number] : 1950 Acct:[id number] Age/Sex: 74 / M ADM Date: 08/31/24 Loc: LAB Attending Dr: Jude Wood M.D. Ordering Physician: Jude Wood M.D. Date of Service: 08/31/24 Procedure(s): XR abdomen 1V Accession Number(s): [id number] cc: KHOA BOWLES ; Jude Wood M.D. [address] [address] Patient Name: MANUEL BALDERAS MRN: [id number] date: 1950 Sex: M Assigned Patient Location: LAB Current Patient Location: Accession/Order Number: [id number] Exam Date: 08/31/2024 15:00 Report Date: 09/02/2024 [...] Solomon M.D. Signed By: 09/02/2459 DD/ TD/TT: Faith Doctor: Procedure Note Radiology, Radiologist, MD - 09/02/2024 [place] [address] XRay Report Signed Patient: MANUEL BALDERAS R#: [id number] : 1950Acct:[id number] Age/Sex: 74 / MADM Date: 08/31/24 Loc: LAB Attending Dr: Jude Wood M.D. Ordering Physician: Jude Wood M.D. Date of Service: 08/31/24 Procedure(s): XR abdomen 1V Accession Number(s): [id number] cc: KHOA BOWLES ; Jude Wood M.D. The [place] [id number] Patient Name: MANUEL BALDERAS MRN: [id number] date: 1950 Sex: M Assigned Patient Location: LAB Current Patient Location: Accession/Order Number: [id number] Exam Date: 08/31/2024 15:00 Report Date: 09/02/2024 [...] Solomon M.D. Signed By:09/02/2459 DD/ 5 TD/TT: Faith Doctor: us Generic External Data Provider [facility] Final Result documented in this encounter Visit Diagnoses Not on filedocumented in this encounter Additional Health Concerns Assessment Noted Time PHQ-9 Depression Total Score: 2 04/03/20 24 11:00 AM EDT documented as of this encounter Care Teams Freelance Interpreter/Translator Relationship Specialty Start Date End Date Khoa Bowles MD PCP - General Family Medicine 04/08/23 09/12/24 Khoa Bowles MD [address] [address] PCP - ACO Reach 12/31/23 Khoa Bowles MD [address] [address] PCP - General Family Medicine 12/27/24 Jude Wood MD [address] [place] [address] Referring Physician Urology 12/09/23 Tiffanie Smyth DPM [address] [place] [id number] Referring Physician Podiatry 12/09/23 Larissa Leavitt, CORDELL [address] [facility] 230 [place] [address] Registered Nurse Family Medicine 02/13/25 Callie Mroa MD 595 [place] [address] Referring Physician General Surgery 05/07/25 Skinny White MD [address] [place] [address] Referring Physician Ophthalmology 05/07/25 Shani Mohan DO [address] [phone] Referring Physician Neurology 05/07/25 documented as of this encounter
--- OUTSIDE RECORDS SUMMARY | 2025-07-23 14:03 | XMS_ITS | Encounter Summary ---
Author Organization [facility] Address [address] [place] [address] Care Team Providers Care Raw Shellfish Preparer Name Role Phone Jude Beach MD Unavailable +[phone] Tiffanie Smyth DPM Unavailable +[phone] Khoa Godinez MD Unavailable [phone] Khoa Godinez MD Primary Care Provider [phone] Larissa Leavitt RN Unavailable [phone] Callie Mora MD Unavailable [phone] Skinny White MD Unavailable +[phone] Shani Mohan DO Unavailable [phone] Reason for Visit * Reason Comments Med Refill Encounter Details Date Type Department Care Team (Late st Contact Info) Description 04/24/2025 Refill [facility] [place] [address] Family Medicine 112 [facility] 100 [place] [address] Khoa Godinez MD 112 [facility] 100 [place] [address] Mixed hyperlipidemia Social History Tobacco Use Types [...] at all 04/26/2025 2:52 PM EDT Jazlyn JanuarySATURNINO Feeling down, depressed, or hopeless Not at all 04/26/2025 2:52 PM EDT Jazlyn SrideviSATURNINO Patient Health Questionnaire -2 Score 0 04/26/2025 2:52 PM EDT Jazlyn January, SATURNINO documented as of this encounter Plan of Treatment Upcoming Encounters Date Type Department Care Team (Late st Contact Info) Description 10/11/2025 10:45 AM EST Procedure Visit [facility] [address] [place] [address] Tiffanie Smyth DPM 1900 [place], [place] [phone] 10/22/2025 2:30 PM EST Office Visit [facility] [address] [address] Khoa Godinez MD [address] [address] (Fax) documented as of this encounter Visit Diagnoses Diagnosis Mixed hyperlipidemia Mixed hyperlipidemia documented in this encounter Additional Health Concerns Assessment Noted Time PHQ-9 Depression Total Score: 2 04/03/20 24 11:00 AM EDT documented as of this encounter Care Teams Raw Shellfish Preparer Relationship Specialty Start Date End Date Khoa Godinez MD 112 [address] [place] [address] (Fax) PCP - ACO Reach 12/31/23 Khoa Godinez MD [address] [address] (Fax) PCP - General Family Medicine 12/27/24 Jude Beach MD 290 [place] [address] Referring Physician Urology 12/09/23 Tiffanie Smyth DPM 1900 [place], [place] [phone] Referring Physician Podiatry 12/09/23 Larissa Leavitt, RN [address] [facility] 230 [place], [place] [phone] Registered Nurse Family Medicine 02/13/25 Callie Mora MD [address] [place] [address] Referring Physician General Surgery 05/07/25 Skinny White MD [address] [place] [address] Referring Physician Ophthalmology 05/07/25 Shani Mohan DO [address] [address] Referring Physician Neurology 05/07/25 documented as of this encounter
--- OUTSIDE RECORDS SUMMARY | 2025-07-23 14:03 | XMS_ITS | Encounter Summary ---
Author Organization [facility] Address [address] [place] [address] Care Team Providers Care Formula Checker Name Role Phone Khoa Godinez MD Primary Care Provider + [phone] Jude Beach MD Unavailable [phone] Tiffanie Smyth DPM Unavailable [phone] Khoa Godinez MD Unavailable [phone] Khoa Godinez MD Primary Care Provider + [phone] Larissa Leavitt RN Unavailable [phone] Callie Mora MD Unavailable [phone] Skinny White MD Unavailable [phone] Shani Mohan DO Unavailable [phone] Encounter Details Date Type Department Care Team (Late st Contact Info) Description 11/22/2023 Abstract [facility] [place] 521 Family Medicine [address] [facility] [place] [address] Khoa Godinez MD 112 [facility] [address] [place] [address] Social History Tobacco Use Types [...] 10/11/2025 10:45 AM EST Procedure Visit [facility] [address] [place] [address] Tiffanie Smyth DPM [address] [place] [address] 10/22/2025 2:30 PM EST Office Visit [facility] Family Medicine [address] [place] [address] [place] [address] Khoa Godinez MD [address] [place] [address] (Fax) documented as of this encounter Visit Diagnoses Not on filedocumented in this encounter Care Teams Formula Checker Relationship Specialty Start Date End Date Khoa Godinez MD (Fax) PCP - General Family Medicine 04/08/23 09/12/24 Khoa Godinez MD [address] [address] (Fax) PCP - ACO Reach 12/31/23 Khoa Godinez MD [address] [place] [address] (Fax) PCP - General Family Medicine 12/27/24 Jude Beach MD 290 [place] [address] Referring Physician Urology 12/09/23 Tiffanie Smyth DPM [address] [place] [address] Referring Physician Podiatry 12/09/23 Larissa Leavitt, RN 2500 [address] [facility] 230 [place] [address] Registered Nurse Family Medicine 02/13/25 Callie Mora MD 595 [facility] [place] [address] Referring Physician General Surgery 05/07/25 Skinny White MD 2600 [place] [address] Referring Physician Ophthalmology 05/07/25 Shani Mohan DO 703 [facility] 353 [place] [phone] Referring Physician Neurology 05/07/25 documented as of this encounter
--- OUTSIDE RECORDS SUMMARY | 2025-07-23 14:03 | XMS_ITS | Encounter Summary ---
Author Organization [facility] Address [address] [place] [address] Care Team Providers Care Manager Safe Name Role Phone Khoa Godinez MD Primary Care Provider + [phone] Jude Beach MD Unavailable [phone] Tiffanie Smyth DPM Unavailable [phone] Khoa Godinez MD Unavailable [phone] Khoa Godinez MD Primary Care Provider +[phone] Larissa Leavitt RN Unavailable [phone] Callie Mora MD Unavailable [phone] Skinny White MD Unavailable [phone] Shani Mohan DO Unavailable [phone] Reason for Visit * Reason Comments Med Refill Encounter Details Date Type Department Care Team (Late st Contact Info) Description 01/26/2024 Refill [facility] [place] 521 Family Medicine [address] [place] [address] Khoa Godinez MD 112 [facility] [address] [place] [address] 01 (Fax) Type 2 diabetes mellitus with hyperglycemia, [...] EST Procedure Visit [facility] [address] [facility] [place] [address] Tiffanie Smyth, DPM 1900 [place], [place] [address] 10/22/2025 2:30 PM EST Office Visit [facility] [address] [address] Khoa Godinez MD [address] [address] (Fax) documented as of this encounter Visit Diagnoses Diagnosis Type 2 diabetes mellitus with hyperglycemia, without long-term current use of insulin (HCC) documented in this encounter Care Teams Manager Safe Relationship Specialty Start Date End Date Khoa Godinez MD (Fax) PCP - General Family Medicine 04/08/23 09/12/24 Khoa Godinez MD [address] [address] (Fax) PCP - ACO Reach 12/31/23 Khoa Godinez MD [address] [address] (Fax) PCP - General Family Medicine 12/27/24 Jude Beach MD 290 [place] [address] Referring Physician Urology 12/09/23 Tiffanie Smyth DPM 1900 [place], [place] [address] Referring Physician Podiatry 12/09/23 Larissa Leavitt, RN [address] [facility] [address] [place] [address] Registered Nurse Family Medicine 02/13/25 Callie Mora MD 595 [facility] [place] [address] Referring Physician General Surgery 05/07/25 Skinny White MD 2600 [place] [address] Referring Physician Ophthalmology 05/07/25 Shani Mohan DO 703 [facility] 353 [place] [address] Referring Physician Neurology 05/07/25 documented as of this encounter
--- OUTSIDE RECORDS SUMMARY | 2025-07-23 14:03 | XMS_ITS | Clinical Summary ---
Author Organization [facility] Address [address] [place] [address] Care Team Providers Care Index Clerk Name Role Phone Jude Beach MD Unavailable [phone] Tiffanie Smyth DPM Unavailable [phone] Khoa Godinez MD Unavailable [phone] Khoa Godinez MD Primary Care Provider [phone] Larissa Leavitt RN Unavailable [phone] Callie Mora MD Unavailable [phone] Skinny White MD Unavailable [phone] Shani Mohan DO Unavailable [phone] Allergies Active Allergy Reactions Criticality Noted Date Comments Meperidine 02/01/2014 Other Reaction(s): Other: See Comments miose Meperidine Hcl 12/02/2021 Other Reaction(s): moise Abdi Pioglitazone Swelling 04/13/2023 Medications aspirin 81 MG EC tablet Take 81 mg by mouth in the morning. Active biotin 09283 MCG tablet Take 1 tablet by mouth [...] hyperglycemia, without long-term current use of insulin ([facility]) INJECT BID, SLIDING BLOOD GLUCOSE SCALE WITH THE COVERAGE: <70, ZERO AND EAT. 70-150, 10 UNITS. 151-200, 14 UNITS. 201-250, 16 UNITS. 251-300, 18 UNITS. >300, 20 UNITS 15 each 3 02/06/20 25 Active Blood Glucose Monitoring Suppl (Blood Glucose Monitoring 333) device 1 Device continuously Accucheck Active metFORMIN (Glucophage) 1000 MG tabletIndications: Type 2 diabetes mellitus with diabetic microalbuminuria, with long-term current use of insulin ([facility]) Take 1 tablet (1,000 mg) by mouth in the morning and 1 tablet (1,000 mg) in the evening. Take with meals. 180 tablet 05/03/20 025 Active fenofibrate (Triglide) 160 MG tabletIndications: Mixed hyperlipidemia Take 1 tablet (160 mg) by mouth Daily 90 tablet 05/03/20 025 Active losartan-hydroCHLO ROthiazide (Hyzaar) 100-12.5 MG tabletIndications: Primary hypertension Take 1 tablet by mouth Daily 90 tablet 1 05/03/20 25 025 Active metoprolol tartrate (Lopressor) 50 MG tabletIndications: Primary hypertension Take 1 tablet (50 mg) by mouth in the morning and 1 tablet (50 mg) before bedtime. 180 tablet 05/03/20 025 Active hydroCHLOROthiazid e (HYDRODiuril) 25 MG [...] Take before meals. 200 strip 3 05/07/20 25 025 Active Lancets miscIndications:Po lyneuropathy due to type 2 diabetes mellitus (HCC) 1 Lancet in the morning and 1 Lancet in the evening. Take before meals. 200 each 3 05/07/20 25 025 Active DULoxetine (Cymbalta) [address] capsule Take 60 mg by mouth in the morning and 60 mg before bedtime. 06/08/20 25 Active meclizine (Antivert) 25 MG tablet Take 25 mg by mouth 3 (three) times a day as needed for dizziness 07/13/20 25 Active Misc. Devices miscIndications:Ly mphedema of both lower extremities 1 each continuously 1 each 07/19/20 25 Active Active Problems Problem Noted Date Diagnosed Date Prostate cancer 06/30/2025 Snoring 07/26/2024 Hypersomnia 07/26/2024 Myalgia due to statin 06/07/2024 Lumbar stenosis 04/11/2024 Facet arthritis of lumbar region 04/11/2024 DDD (degenerative disc disease), lumbar 04/11/20 24 Radiculopathy, lumbosacral region 04/11/2024 Hypersomnolence 04/11/2024 Polyradiculopathy [...] Left ankle Thoracic spondylosis without myelopathy 10/02/20 Bilateral nonexudative age-related macular degen eration 07/19/2016 [...] Encounters Date Type Department Care Team Description 07/19/2025 4:30 PM EDT Office Visit [facility] [place] [address] [place] [address] Khoa Godinez MD Syncope, unspecified syncope type (Primary Dx); Right bundle branch block; Vertigo; Encounter for examination following treatment at hospital; Morbid obesity due to excess calories ([facility]); Lymphedema of both lower extremities 07/19/2025 Bamboo flowsheet [facility] [place] [address] [place] [address] Khoa Godinez MD 07/19/2025 Travel 07/16/2025 Patient Outreach [facility] [address] [place] [address] Larissa Leavitt RN 07/12/2025 1:00 PM EDT [facility] [address] [place] [address] Tiffanie Smyth, DPWei Onychomycosis (Primary Dx); Type II or unspecified type diabetes mellitus with neurological manifestations, not 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) ([facility]); Acquired keratoderma 07/12/2025 Bamboo flowsheet [facility] [address] [place] [address] Tiffanie Smyth DPM 07/12/2025 Travel 07/11/2025 Travel 06/30/2025 [facility] [address] [place] [address] Khoa Godinez MD 06/18/2025 Patient Outreach [facility] [address] [place] [address] Larissa Leavitt RN 06/11/2025 Patient Outreach [facility] [address] [place] [address] Larissa Leavitt, RN 05/08/2025 Orders Only [place] [address] [place] [address] Khoa Godinez MD 05/08/2025 Patient Outreach [facility] [address] [address] Larissa Leavitt, CORDELL 05/07/2025 11:00 AM EDT [facility] [place] [address] Khoa Godinez MD Encounter for Medicare annual [...] (HCC); Morbid obesity due to excess calories ([facility]); Type 2 diabetes mellitus with foot ulcer (CODE) ([facility]); Thrombocytopenia 05/07/2025 Bamboo flowsheet [place] [address] [place] [address] Khoa Godinez MD 05/07/2025 Travel 04/30/2025 [facility] [address] [place] [address] [place] [address] Khoa Godinez MD Type 2 diabetes mellitus with hyperglycemia (HCC) 04/26/2025 3:00 PM EDT [facility] [place] [address] Khoa Godinez MD Primary hypertension ; Mixed hyperlipidemia ; Hyperuricemia; Microalbuminuria; Type 2 diabetes mellitus with diabetic microalbuminuria, with long-term current use of insulin (HCC); Type 2 diabetes mellitus with diabetic polyneuropathy, with long-term current use of insulin (HCC); Diabetic neuropathic arthropathy (HCC); Lymphedema of both lower extremities; Chronic cellulitis; Polypharmacy; Morbid obesity due to excess calories ([facility]) 04/26/2025 Travel 04/26/[address] [address] Khoa Godinez MD Med Refill 04/24/2025 Clinisync Result Encounter NOMS External Department Unsolicited Khoa Godinez MD 04/24/2025 Patient Outreach [facility] [address] [place] [address] Larissa Leavitt RN 04/24/2025 Refill [facility] [address] [address] Khoa Godinez MD Mixed hyperlipidemia from Last 3 Months Immunizations Immunization Administration [...] How often do you attend chur or confucianism services? More than 4 times per year 06/18/2025 Do you belong to any clubs o r organizations such as denominational groups, unions, fraternal or athletic groups, or [...] Recorded Patient Health Questionnaire-2 Score 0 05/07/2025 [facility] [place] of Occupat ional Health - Occupational Stress [...] any time in the past 12 m [facility], were you homeless or living in a custodial (including now)? No 06/18/2025 Sex and Gender [...] Pressure 120/68 05/07/2025 11:04 AM EDT Pulse 75 07/19/2025 4:14 PM EDT Temperature - - Respiratory Rate 16 08/08/2024 12:34 PM EDT Oxygen Saturation 95% 07/19/2025 4:14 PM EDT Inhaled Oxygen Concentration - - Weight 127 kg (281 lb) 07/19/2025 4:14 PM EDT Height 185.4 cm (6' 1 ) 07/19/2025 4:14 PM EDT Body Mass Index 37.07 07/19/2025 4:14 PM EDT Plan of Treatment Upcoming Encounters Date Type Department Care Team (Late st Contact Info) Description 10/11/2025 10:45 AM EST Procedure Visit [facility] [place] [facility] [address] [facility] [place] [address] Tiffanie Smyth, DPWei [address] [place], [place] [address] 10/22/2025 2:30 PM EST Office Visit [facility]OMPatrick [facility] 100 Family Medicine [address] [place] [address] Khoa Godinez MD 112 [facility] [address] [place] [address] Health Maintenance Due Date Last Done Comments CT Colonography 1950 FIT-DNA 1950 FIT 1950 FOBT 1950 Sigmoidoscopy 1950 Diabetes: Hemoglobin A1C 10/24/2025 025, 10/26/2024, 10/19/2023, Additional history exists Diabetes: Urine Protein Screening 04/24/2026 04/24/2025, 11/18/2021, 07/24/2019 Influenza Vaccine (#1) 2026 , 10/14/2023, 09/03/2022, Additional history exists Postponed from 07/02/2025 (Patient Refused) Medicare Annual Wellness (AWV) 05/07/2026 05/07/2025, 04/03/2024, 02/22/2023, Additional history exists Colonoscopy 06/17/2026 06/17/2016 Colorectal Cancer Screening 06/17/2026 Diabetes: Retinopathy Screening 02/27/2027 02/27/2025, 02/25/2024, 06/08/2022, Additional history exists Pneumococcal Vaccine: 65+ Years Completed 12/31/2020, 09/06/2017, 08/17/2016, Additional history exists Procedures Procedure Name Priority Date/Time Associated Diagnosis Comments MLR HEMOGLOBIN A1C Routine 04/24/2025 11 :01 AM EDT TB[facility] MICROALB CREAT RATIO RANDOM Routine 04/24/2025 10:46 AM EDT DIABETIC RETINOPATHY SCREENING - OU [...] Narrative [facility] - 04/24/2025 11:18 AM EDT Khao Godinez MD [facility] Final Result [facility] * (ABNORMAL) [facility] MICROALB CREAT RATIO RANDOM (04/24/2025 10:46 AM [...] Final Result Performing Organization Address [facility] Co de Phone Number [facility] * Diabetic Retinopathy Screening - OU - Both Eyes (02/25/2024 9:23 AM EDT) Anatomical Region Laterality Modality Head Other Rasheed Truong MD OPHTH PHOTOGRAPHY Final Result * Hemoglobin A1c (10/19/2023 4:15 PM EST) Blood Venous blood specimen / Unknown Khoa Godinez MD LAB BLOOD ORDERABLES Final R esult Performing Organization Address [facility] Co de Phone Number [facility] * MICROALBUMIN, URINE QUANT (11/18/2021 12:00 PM EST) GENERIC LEGACY COMPONENT INTERNAL 1-1,500 [facility] GENERIC LEGACY COMPONENT INTERNAL 1,500 [facility] 11/18/2021 12:0 0 PM EST Khoa Godinez MD [facility] Final Result Performing Organization Address [facility] Co de Phone Number [facility] * Colonoscopy (06/17/2016 12:00 PM EDT) Anatomical Region Laterality Modality Endoscopy 06/17/2016 12:0 0 PM EDT Narrative 04/29/2017 12:00 PM EDT PERFORMED AT [facility] LOCATION:[id number] Abnormal Procedure Note CONVERSION, GENERIC - 03/18/2023 PERFORMED AT [facility] LOCATION:[id number] Abnormal Khoa Godinez MD ENDOSCOPY PROCEDURE ORDERABL ES Final Result from Last 3 Months or Most Recently Relevant to Health Maintenance Insurance MEDICARE [employer] Advance Directives Documents on File Type Date Recorded Patient Crime Data Specialist Expl anation Power of Clinical Provider Trainer 03/29/2024 1:37 PM 07-10 POA Advance Directives and Living Will 03/29/2024 1:37 PM 2013-07-10 Living Wi Care Teams Index Clerk Relationship Specialty Start Date End Date Khoa Godinez MD [address] [place] [address] (Fax) PCP - ACO Reach 12/31/23 Khoa Godinez MD [address] [place] [address] (Fax) PCP - General Family Medicine 12/27/24 Jude Beach MD [address] [place] [address] Referring Physician Urology 12/09/23 Tiffanie Smyth DPM [address] [place], [place] [address] Referring Physician Podiatry 12/09/23 Larissa Leavitt, CORDELL [address] [place] [address] Registered Nurse Family Medicine 02/13/25 Callie Mora MD 595 [facility] [address] Referring Physician General Surgery 05/07/25 Skinny White MD [address] [place] [address] Referring Physician Ophthalmology 05/07/25 Shani Mohan DO [address] [place] [phone] Referring Physician Neurology 05/07/25
--- OUTSIDE RECORDS SUMMARY | 2025-07-23 14:03 | XMS_ITS | Encounter Summary ---
Author Organization [facility] Address [address] [place] [address] Care Team Providers Care Service Desk Associate Name Role Phone Khoa Godinez MD Primary Care Provider + [phone] Jude Beach MD Unavailable [phone] Tiffanie Smyth DPM Unavailable [phone] Khoa Godinez MD Unavailable [phone] Khoa Godinez MD Primary Care Provider +[phone] Larissa Leavitt RN Unavailable [phone] Callie Mora MD Unavailable [phone] Skinny White MD Unavailable +[phone] Shani Mohan DO Unavailable [phone] Encounter Details Date Type Department Care Team (Late st Contact Info) Description 12/22/2023 Abstract [facility] [place] [facility] [address] [place] [address] Yaquelin Lakhani MD [address] [place] [id number] Social History Tobacco Use Types Packs/Day Years [...] Procedure Visit [facility] [address] [place] [phone] Tiffanie Smyth DPM [address] [place] [address] 10/22/2025 2:30 PM EST Office Visit [facility] [address] [place] [address] Khoa Godinez MD [address] [place] [address] (Fax) documented as of this encounter Visit Diagnoses Not on filedocumented in this encounter Care Teams Service Desk Associate Relationship Specialty Start Date End Date Khoa Godinez MD (Fax) PCP - General Family Medicine 04/08/23 09/12/24 Khoa Godinez MD [address] [place] [address] (Fax) PCP - ACO Reach 12/31/23 Khoa Godinez MD [address] [place] [address] (Fax) PCP - General Family Medicine 12/27/24 Jude Beach MD [address] [place] [address] Referring Physician Urology 12/09/23 Tiffanie Smyth DPM [address] [place] [address] Referring Physician Podiatry 12/09/23 Larissa Leavitt, RN [address] [facility] [address] [place] [address] Registered Nurse Family Medicine 02/13/25 Callie Mora MD [address] [facility] [place] [address] Referring Physician General Surgery 05/07/25 Skinny White MD [address] [place] [address] Referring Physician Ophthalmology 05/07/25 Shani Mohan DO [address] [facility] [address] [place] [address] Referring Physician Neurology 05/07/25 documented as of this encounter
--- OUTSIDE RECORDS SUMMARY | 2025-07-23 14:03 | XMS_ITS | Encounter Summary ---
Author Organization [facility] Address [address] [place] [address] Care Team Providers Care Cut Pressman Name Role Phone Khoa Godinez MD Primary Care Provider + [phone] Jude Beach MD Unavailable [phone] Tiffanie Smyth DPM Unavailable [phone] Khoa Godinez MD Unavailable [phone] Khoa Godinez MD Primary Care Provider [phone] Larissa Leavitt RN Unavailable [phone] Callie Mora MD Unavailable [phone] Skinny White MD Unavailable [phone] Shani Mohan DO Unavailable [phone] Encounter Details Date Type Department Care Team (Late st Contact Info) Description 07/29/2023 Abstract [facility] [place] [facility] Family [facility] [address] [facility] [place] [address] Shani Mohan DO Social History Tobacco Use [...] 10/11/2025 10:45 AM EST [facility] [address] [place] [address] Tiffanie Smyth DPM [address] [place] [address] 10/22/2025 2:30 PM EST [facility] [address] [place] [address] Khoa Godinez MD [address] [place] [address] [address] (Fax) documented as of this encounter Visit Diagnoses Not on filedocumented in this encounter Care Teams Cut Pressman Relationship Specialty Start Date End Date Khoa Godinez MD (Fax) PCP - General Family Medicine 04/08/23 09/12/24 Khoa Godinez MD [address] [place] [address] (Fax) PCP - ACO Reach 12/31/23 Khoa Godinez MD [address] [place] [address] [place] [address] (Fax) PCP - General Family Medicine 12/27/24 Jude Beach MD [address] [place] [address] Referring Physician Urology 12/09/23 Tiffanie Smyth DPM [address] [place] [address] Referring Physician Podiatry 12/09/23 Larissa Leavitt, RN [address] [place] [address] Registered Nurse Family Medicine 02/13/25 Callie Mora MD [address] [facility] [place] [address] Referring Physician General Surgery 05/07/25 [place] [address] [place] [address] Referring Physician Ophthalmology 05/07/25 Shani Mohan DO [address] [facility] [address] [place] [address] Referring Physician Neurology 05/07/25 documented as of this encounter
--- OUTSIDE RECORDS SUMMARY | 2025-07-23 14:10 | XMS_ITS | CCD ---
Author Organization [facility] Care Team Providers Care Management Advisor Name Role Phone Khoa Bowles Primary Care Provider [phone] Leopoldo Frye Attending Provider Elder Qiu Attending Provider KHOA BOWLES Primary Care Physician KHOA BOWLES Primary Care Physician Unavail able WOOD ., DR WALLACE Consulting Unavailable HEMEYER ., DR QUINTEROS Primary Care Unavailable WOOD ., DR WALLACE Attending Unavailable WOOD ., DR WALLACE Admitting Unavailable WOOD ., DR WALLACE Consulting Unavailable HEMEYER ., DR QUINTEROS Primary Care Unavailable WOOD ., DR WALLACE Attending Unavailable WOOD ., DR WALLACE Admitting Unavailable YUMIKO TORRES Consulting Unavailable WOOD ., DR WALLACE Consulting Unavailable HEMEYER ., DR QUINTEROS Primary Care Unavailable WOOD ., DR WALLACE Attending Unavailable WOOD ., DR WALLACE Admitting Unavailable ISAK CORTEZ Consulting Unavailable LISA MCGINNIS Consulting Unavailable SWATI ROE Consulting Unavailable HEMEYER ., DR QUINTEROS Primary Care Unavailable HEMEYER ., DR QUINTEROS Attending Unavailable HEMEYER ., DR QUINTEROS Admitting Unavailable HEMEYER ., DR QUINTEROS Primary Care Unavailable WOOD ., DR WALLACE Attending Unavailable WOOD ., DR WALLACE Admitting Unavailable HEMEYER ., [...] Unavailable HEMMER, DR BACILIO Carvajal Admitting Unavailable WOOD ., DR WALLACE Consulting Unavailable HEMEYER ., DR QUINTEROS Primary Care Unavailable WOOD ., DR WALLACE Attending Unavailable WOOD ., DR WALLACE Admitting Unavailable STATESBORO, DR TALI Jeffries Consulting Unavailable WOOD ., DR WALLACE Consulting Unavailable HEMEYER ., DR QUINTEROS Primary Care Unavailable WOOD ., DR WALLACE Attending Unavailable WOOD ., DR WALLACE Admitting Unavailable MD Khoa Bowles Primary Care Provider MARIZOL Hampton Attending Provider Khoa Bowles MD Primary Care Provider Madison Wood MD Unavailable Haja HARMON, Tiffanie Tariq Unavailable Khoa Bowles MD Unavailable Khoa Bowles MD Primary Care Provider [phone] Khoa Bowles MD Unavailable [phone] Khoa Bowles MD Unavailable [phone] Khoa Bowles MD Primary Care Provider Tree LANDA, Larissa Unavailable Tree LANDA, Larissa Unavailable Morgan LEVY, Callie Robertson Unavailable Christopher LEVY, Skinny Barraza Unavailable Shani Mohan DO Unavailable Khoa Bowles MD Primary Care Provider [phone] Madison Wood MD Attending Provider Madison WOOD Attending Unavailable WOODMadison R Attending Unavailable WOOD, Madison R Attending Unavailable WOOD, Madison R Attending Unavailable WOOD, Madison R Attending Unavailable WOODMadison R Attending Unavailable KAROLINE MONTES Attending Unavailable KHOA BOWLES Referring Unavailable KHOA BOWLES Primary Care Unavailable KAROLINE MONTES Referring Unavailable KHOA BOWLES Primary Care Unavailable KAROLINE MONTES Referring Unavailable HEMEKHOA CASILLAS Primary Care Unavailable CALLIE MORA F Attending Unavailable CALLIE MORA F Referring Unavailable KHOA BOWLES Primary Care Unavailable Madison Drew DO Emergency Provider NON STAFF Primary Care Provider UnavailMadison Fletcher Attending Unavailable Madison Drew Admitting Unavailable NON STAFF Primary Care Unavailable Madison Wood Admitting Unavailable Madison Wood Attending Unavailable Khoa Bowles Primary Care Unavailable Madisno Wood Attending Unavailable Madison Wood Admitting Unavailable TIFFANIE ENRIQUE Attending Unavailable KHOA BOWLES Attending Unavailable TIFFANIE ENRIQUE Attending Unavailable KHOA BOWLES Attending Unavailable KHOA BOWLES Attending Unavailable TIFFANIE ENRIQUE Attending Unavailable KHOA BOWLES Attending Unavailable YUMIKO GUZMÁN Attending Unavailable YAQUELIN HAMPTON Attending Unavailable TIFFANIE ENRIQUE Attending Unavailable KHOA BOWLES Attending Unavailable Allergies Allergy Classification Reported Allergen(s) Allergy Type Date of Onset Reaction(s) Facility Opioid Agonists (1 source) Meperidine Drug Allergy 1 [facility] (9 sources) Meperidine / Promethazine; Translations: [meperidine-prome thazine] Drug Allergy Unknown (qualifier value) [facility] (20 sources) Meperidine; Translations: [meperidine] Drug Allergy 4 Tremor (finding) [facility] (2 sources) Meperidine Drug Allergy 3 [facility] (2 sources) pioglitazone Drug Allergy 3 [facility] (20 sources) Meperidine Drug Allergy 2 [facility] (20 sources) pioglitazone Drug Allergy 3 Swelling [facility] (1 source) Doxycycline; Translations: [doxycycline] Drug Allergy [facility] (1 source) Meperidine Drug Allergy 5 [facility] Repository Medications Current Medications Medication Drug [...] Status: Ordered Repeat number: 1 Start: 11-23-2018 Biotin (20 sources) Start: 09-04-2024 biotin 10,000 mcg, Refills(s) 0 Start Date: 09/04/24 Status: Ordered Repeat number: 1 Start: 09-04-2024 biotin 10,000 mcg, Refills(s) 0 Start Date: 09/04/24 Status: Ordered Start: 11-09-2018 take 1 capsule by mo uth twice daily take 1 tablet by noemi th in the morning biotin 55596 MCG tablet Take 1 tablet by mouth in the morning and 1 tablet before bedtime. Active Blood Glucose Monitoring Suppl (Blood Glucose Monitoring 333) device (18 sources) Blood Glucose Monitoring Suppl (Blood Glucose Monitoring 333) device 1 Device continuously Accucheck Active cyclobenzaprine hydrochloride 10 mg oral tablet (7 sources) Muscle Relaxant Start: take 1 tablet by mouth three times daily as needed for muscle spasms Start: 11-24-2018 End: 04-03-2021 take 1 tablet by mouth three times daily as needed for muscle spasms Cyclobenzaprine 10 mg tablet Discontinued 10 MG PO Three times daily as needed for back spasms 50 November 24, 2018 1:00am April 03, 2021 11:56am dapagliflozin 10 mg [...] Ordered Repeat number: 1 Start: 11-09-2018 take 1 tablet by noemi th once daily in the morning DULoxetine 60 mg delayed release oral capsule (20 sources) Serotonin and Norepinephrine Reuptake Inhibitor Start: 06-08-2025 take 1 capsule by mouth in the morning DULoxetine (Cymbalta) [address] capsule Take 60 mg by mouth in the morning and 60 mg before bedtime. 06/08/2025 Active Start: 03-09-2025 duloxetine 30 mg oral delayed release capsule 30 mg = 1 cap(s), Refills(s) 0 Start Date: 04/02/25 Status: Ordered Repeat number: 1 Start: 01-12-2025 take 1 capsule by mo [facility] in the morning DULoxetine (Cymbalta) [address] capsule Take 20 mg by mouth in the morning and 20 mg before bedtime. 01/12/2025 Active fenofibrate 160 mg oral tablet (20 sources) Peroxisome Proliferator Receptor alpha Agonist Start: 05-02-2024 End: 10-30-2025 take 1 tablet by mouth once daily fenofibrate (Triglide) 160 MG tablet Indications: Mixed hyperlipidemia Take 1 tablet (160 mg) by mouth Daily 90 tablet 1 05/03/2025 10/30/2025 Active Start: 11-04-2023 End: 02-02-2024 take 1 tablet by mouth in the morning fenofibrate (Triglide) 160 MG tablet Indications: Mixed hyperlipidemia (CMS/HCC) Take 1 tablet (160 mg) by mouth in the morning. 90 tablet 0 11/04/2023 02/02/2024 Active ferrous sulfate 325 mg oral tablet (20 sources) Start: 11-09-2018 take 1 tablet by mouth once daily gabapentin 300 mg oral capsule (20 sources) Anti-epilept ic Agent Start: 07-21-2023 End: 02-04-2025 take 1 capsule by mouth in the morning gabapentin (Neurontin) 300 MG capsule Indications: Polyradiculopathy Take 1 capsule (300 mg) by mouth in the morning and 1 capsule (300 mg) before bedtime. 180 capsule 11/06/2024 02/04/2025 Active Start: 11-09-2018 End: 04-03-2021 take 1 capsule by mouth three times daily Gabapentin 400 mg capsule Discontinued 400 MG PO Three times daily November 09, 2018 1:00am April 03, 2021 11:56am gemfibrozil 600 mg oral tablet (8 sources) Peroxisome Proliferator Receptor alpha Agonist Start: 11-09-2018 take 1 tablet by mouth twice daily glipiZIDE er 10 mg 24 hr extended release oral tablet (8 sources) Sulfonylurea Start: 09-16-2020 take 1 mg by mouth once daily glipiZIDE 10 mg ER Tab mg tab(s), Oral, Daily, Refills(s) 0 Start Date: 09/16/20 Status: Ordered Start: 11-09-2018 take 1 tablet by mouth twice d aily hydroCHLOROthiazide 25 mg oral tablet (20 sources) Thiazide Diuretic Start: 11-09-2018 End: 10-30-2025 take 1 tablet by mouth in the evening hydroCHLOROthiazide (HYDRODiuril) 25 MG tablet Indications: Primary hypertension Take 1 tablet (25 mg) by mouth in the evening 90 tablet 1 05/03/2025 10/30/2025 Active hydroCHLOROthiazide 12.5 mg / losartan potassium 100 mg oral tablet (20 sources) Thiazide Diuretic, Angiotensin 2 Receptor Dean Start: 09-04-2024 hydrochlorothiazide-lo sartan 12.5 mg-100 mg oral tablet 1 tab(s), Refill(s) 0 Start Date: 09/04/24 Status: Ordered Repeat number: 1 Start: 11-04-2023 End: 02-02-2024 take 1 tablet by mouth in the morning losartan-hydroCHLOROthiazide (Hyzaar) 100-12.5 MG tablet Indications: Essential hypertension (CMS/HCC) Take 1 tablet by mouth in the morning. 90 tablet 0 11/04/2023 02/02/2024 Active Start: 11-09-2018 End: 10-30-2025 take 1 tablet by mouth once daily losartan-hydroCHLOROthiazide (Hyzaar) 100-12.5 MG tablet Indications: Primary hypertension Take 1 tablet by mouth Daily 90 tablet 1 05/03/2025 10/30/2025 Active 3 ml insulin glargine 100 unt/ml pen [...] 06-14-2024 End: 11-16-2024 insulin glargine (Basaglar K wikPen) 100 UNIT/ML pen Indications: Type 2 diabetes [...] Date: 09/04/24 Status: Ordered Start: 11-09-2018 take 1 capsule by [facility] once daily Lutein 20 MG tab let 1 (one) time each day at the same time. Active meclizine hydrochloride 25 mg oral tablet (4 sources) Antiemetic Start: 07-13-2025 take 1 tablet by mouth three times daily as needed for dizziness meclizine (Antivert) 25 MG tablet Take 25 mg by mouth 3 (three) times a day as needed for dizziness 07/13/2025 Active metFORMIN hydrochloride 1000 mg oral tablet (20 sources) Biguanide Start: 05-02-2024 End: 10-30-2025 take 1 tablet by mouth in the morning metFORMIN (Glucophage) 1000 MG tablet Indications: Type 2 diabetes mellitus with diabetic microalbuminuria, with long-term current use of insulin (HCC) Take 1 tablet (1,000 mg) by mouth in the morning and 1 tablet (1,000 mg) in the evening. Take with meals. 180 tablet 1 05/03/2025 10/30/2025 Active Start: 11-04-2023 End: 02-02-2024 take 1 [...] Active Start: 11-09-2018 take 1 tablet by [facility] twice daily metoprolol tartrate 50 mg oral tablet (20 sources) beta-Adrenergic Dean Start: 11-09-2018 End: 10-30-2025 take 1 tablet by mouth in the morning metoprolol tartrate (Lopressor) 50 MG tablet Indications: Primary hypertension Take 1 tablet (50 mg) by mouth in the morning and 1 tablet (50 mg) before bedtime. 180 tablet 1 05/03/2025 10/30/2025 Active 24 hr mirabegron 50 mg extended release oral tablet (1 source) beta3-Adrenergic Agonist Start: 09-04-2024 End: 08-30-2025 take 1 tablet by mouth once daily mirabegron 50 mg oral tablet, extended release 50 mg = 1 tab(s), Oral, Daily, X 30 day(s), # 30 tab(s), Refills(s) 11, Pharmacy: [facility]/pharmacy #[id number], 185, cm, 09/04/24 13:31:00 EST, Height/Length Dosing, 128, kg, 09/04/24 13:31:00 EST, Weight Dosing Start Date: 09/04/24 Stop Date: 08/30/25 Status: Ordered Misc. Devices misc (2 sources) Start: 07-19-2025 Misc. Devices [facility] Indications: Lymphedema of both lower extremities 1 each continuously 1 each 07/19/2025 Active Multivitamin preparation (2 sources) Start: 04-03-2021 take 1 tablet by mouth once daily Multivitamin Active 1 TAB PO Daily April 03, 2021 11:58am Start: 04-03-2021 take 1 tablet by noemi th once daily Multivitamin Active 1 TAB PO Daily April 03, 2021 12:00am Multivitamin Tablet (2 sources) Start: 04-03-2021 take 1 tablet by mouth once daily oxyCODONE hydrochloride 5 mg oral capsule (7 sources) Opioid Agonist Start: 04-17-2021 take 5-10 mg by mout h every six hours as needed for pain Start: 11-24-2018 End: 04-03-2021 take 1 tablet by mouth every six hours as needed for pain Oxycodone (Roxicodone) 5 mg Tablet Discontinued 1 - 2 TAB PO Q6H as needed for Pain 60 November 24, 2018 April 03, 2021 11:57am predniSONE 10 mg oral tablet (7 sources) Start: 04-17-2021 Start: 04-17-2021 Prednisone Act rober 1 dose [...] 3 days Start: 11-24-2018 End: 04-03-2021 Prednisone 10 mg tablets,dos e pack Discontinued 1 dose pk PO per package directions November 24, [...] BID, # 180 tab(s), Refills(s) 11, Pharmacy: [facility]/pharmacy #[id number], 185, cm, 09/04/24 13:31:00 EST, Height/Length Dosing, 128, kg, 09/04/24 13:31:00 EST, Weight Dosing Start Date: 11/15/24 Status: Ordered Quantity: 180.0 Unit: tab(s) Repeat number: 12 Start: 11-11-2023 take 3 tablets by mo uth twice daily sodium bicarbonate 650 mg Tab 1,950 mg = 3 tab(s), Oral, BID, # 180 tab(s), Refills(s) 11, Pharmacy: [facility]/pharmacy #[id number], 185, cm, 07/21/23 13:37:00 EDT, Height/Length Dosing, 138.2, kg, 07/21/23 13:37:00 EDT, Weight Dosing Start Date: 11/11/23 Status: Ordered Start: 11-09-2018 End: 10-31-2022 take 3 tablets by mouth twice daily sodium bicarbonate 650 mg Tab 1,950 mg = 3 tab(s), Oral, BID, # 180 tab(s), Refills(s) 11, Pharmacy: [facility]/pharmacy #[id number], 185, cm, 12/22/21 12:11:00 EST, Height/Length Dosing, 136.7, kg, 12/22/21 12:11:00 EST, Weight Dosing Start Date: 11/08/22 Status: Ordered Start: 11-09-2018 take 1950 mg by mout h twice daily Sodium Bicarbonate Active 1950 MG PO Twice daily November 09, 2018 3:30pm solifenacin succinate 10 mg oral tablet (20 sources) Cholinergic Muscarinic Antagonist Start: 12-18-2024 take [...] oral capsule (20 sources) alpha-Adrenergic Dean Start: 11-09-2018 take 1 capsule by mouth once daily at bedtime take 1 capsule by mo uth every twenty-four hours in the evening Flomax 0.4 MG 24 hr capsule Take 0.4 mg by mouth in the evening. Active Completed/Discontinued Medications Medication Drug Class(es) Dates Sig (Normalized) Sig (Original) cephalexin 500 mg oral capsule (4 sources) Cephalosporin Antibacterial Start: 11-24-2018 End: 04-03-2021 take 1 capsule by mouth every eight hours Cephalexin (Keflex) 500 mg capsule Discontinued 500 MG PO Q8H November 24, 2018 1:00am April 03, 2021 11:58am zonisamide 25 mg oral capsule (4 sources) Anti-epileptic Agent Start: 11-09-2018 End: 04-03-2021 take 1 capsule by mouth twice daily Zonisamide 25 mg capsule Discontinued 50 MG PO Twice daily November 09, 2018 1:00am April 03, 2021 11:57am Start: 11-09-2018 End: 04-03-2021 take 50 mg by mouth twice daily Zonisamide Discontinued 50 MG PO Twice daily November 09, 2018 3:30pm April 03, 2021 11:57am Problems Active Problems Problem Classification Problem Date Documented Date Episodic/Chronic Acquired foot deformities (1 source) Metatarsophalangeal joint stiff; Translations: [Other deformities of toe(s) (acquired), left foot] 12-09-2023 Episodic Cancer of prostate (8 sources) Malignant neoplasm of prostate; Translations: [Malignant tumor of prostate] Onset: 5 Chronic Chronic ulcer of skin (20 sources) Non-pressure chronic ulcer of other part of left foot limited to breakdown of skin; Translations: [Ulcer of other part of foot] Onset: 1 Resolved: 4 04-12-2023 Chronic Coagulation and hemorrhagic disorders (20 sources) Thrombocytopenic disorder; Translations: [Thrombocytopenia, unspecified] Onset: 3 04-12-2023 Chronic Conditions associated with dizziness or vertigo (3 sources) Vertigo; Translations: [Dizziness and giddiness] 07-13-2025 Episodic Conduction disorders (20 sources) Right bundle branch [...] heart failure] Onset: 3 04-12-2023 Chronic Mycoses (5 sources) Onychomycosis; Translations: [Tinea unguium] 12-09-2023 Episodic Open wounds of extremities (2 sources) Tear of skin; Translations: [Laceration without foreign body of unspecified upper arm, initial encounter] 02-20-2025 Episodic Other aftercare (1 source) intermediate (current) use of anticoagulants; Translations: [TELEMARKETER CURRNT USE ANTICOAGULANTS] Onset: 3 Episodic Other aftercare (1 source) intermediate (current) use of oral hypoglycemic drugs; Translations: [TELEMARKETER USE ORAL HYPOGLYCEMIC DX] Onset: 3 Episodic Other aftercare (1 source) Other longterm (current) drug therapy; Translations: [OTH TELEMARKETER CURRENT DRUG THERAPY] Onset: 3 Episodic Other aftercare (1 source) Long-term current use of drug therapy; Translations: [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] 12-30-2024 Episodic Other aftercare (6 sources) Patient encounter status; Translations: [Encounter for follow-up examination after completed treatment for conditions other than malignant neoplasm] 02-20-2025 Episodic Other circulatory disease (2 sources) Bleeding; Translations: [Hemorrhage, not elsewhere classified] 02-20-2025 Episodic Other connective tissue disease (20 sources) Fibromyalgia; Translations: [Fibromyalgia] 04-11-2024 Episodic Other diseases of bladder and urethra (4 sources) Detrusor overactivity; Translations: [Overactive bladder] Onset: 4 Chronic Other diseases of bladder and urethra (4 sources) Overactive bladder 09-04-2024 Chronic Other diseases of veins and lymphatics (20 sources) Lymphedema of bilateral lower limbs; Translations: [Lymphedema, not elsewhere classified] Onset: 3 04-12-2023 Chronic Other nervous system disorders (20 sources) Difficulty walking; Translations: [Difficulty in walking, not elsewhere classified] Onset: 3 04-12-2023 Chronic Other nutritional; endocrine; and metabolic disorders (20 sources) Morbid obesity; Translations: [Morbid (severe) obesity due to excess calories] Onset: 3 04-12-2023 Chronic Other skin disorders (5 sources) Acquired keratoderma; Translations: [Acquired keratosis [keratoderma] palmaris et plantaris] 12-09-2023 Episodic Other skin disorders (1 source) Callosity; Translations: [Corns and callosities] 04-05-2025 Episodic Peripheral and visceral atherosclerosis (20 sources) Peripheral vascular disease; Translations: [Peripheral vascular disease, unspecified] Onset: 5 04-11-2024 Chronic Residual codes; unclassified (20 sources) Dependence on continuous positive airway pressure ventilation; Translations: [Dependence on other enabling machines and devices] Onset: 3 04-12-2023 Chronic Residual codes; unclassified (20 sources) Obstructive sleep apnea syndrome; Translations: [Obstructive sleep apnea (adult) (pediatric)] Onset: 3 04-12-2023 Chronic Residual codes; unclassified (20 sources) Hypersomnia; Translations: [Hypersomnia, unspecified] Onset: 4 07-26-2024 Chronic Residual codes; unclassified (6 sources) Family history of cancer; Translations: [Family history of malignant neoplasm of prostate] Onset: 3 Episodic Residual codes; unclassified (1 source) Family history of malignant neoplasm of prostate; Translations: [FAMILY HX MALIG NEOPLASM PROSTATE] Onset: 3 Episodic Residual codes; unclassified (2 sources) Active [...] with neurogenic claudication] Onset: 4 04-17-2021 Episodic Comment on above: Problem List clean-u p per request of Phys. EHR Cmte Syncope (4 sources) Syncope; Translations: [Syncope and collapse] 07-20-2025 Episodic Unclassified (1 source) 1 year follow up Onset: Past or Other Problems Problem Classification Problem [...] aftercare (20 sources) Polypharmacy ; Translations: [Other longterm (current) drug therapy] Onset: 08-05-2021 07-28-2023 Episodic Other connective tissue disease (20 sources) H/O: arthrodesis; Translations: [Arthrodesis status] Onset: 10-02-2020 11-04-2023 Episodic Other connective tissue disease (20 sources) Myalgia caused by statin; Translations: [Myalgia, unspecified site] Onset: 06-07-2024 06-07-2024 Episodic Other connective tissue disease (1 source) Panniculitis, unspecified; Translations: [Panniculitis, unspecified] Onset: 03-09-2024 Episodic Other diseases of veins and lymphatics [...] Translations: [Cellulitis, unspecified] Onset: 04-12-2023 04-12-2023 Episodic Varicose veins of lower extremity (1 source) Varicose veins of bilateral lower extremities with pain; Translations: [Varicose veins of bilateral lower extremities with pain] Onset: 03-09-2024 Episodic Results Test Name Value Interpretation Reference Range Facility Alanine aminotransferase [En zymatic activity/volume] in Serum or PlasmaOrdered By: Madison Drew on 07-13-2025 ALT [Catalytic activity/Vol] 36 U/L Normal 7-52 [facility] Comment on above: Performed By: #### C BC, CMP #### [address] Albumin [Mass/volume] in Ser um or Plasma by Bromocresol green (BCG) dye binding methoOrdered By: Madison Drew on 07-13-2025 Albumin BCG dye [Mass/Vol] 4.0 g/dL 3.5-5.7 [facility] Alkaline phosphatase [Enzyma tic activity/volume] in Serum or PlasmaOrdered By: Madison Myerssusanna on 07-13-2025 ALP [Catalytic activity/Vol] 34 U/L Normal 34-104 [facility] Comment on above: Performed By: #### C BC, CMP #### [address] Appearance of UrineOrdered B y: Madison Myerssusanna on 07-13-2025 Appearance (U) Clear Normal Clear [facility] Comment on above: Order Comment: Name Collection Type:: Clean-Voided Midstream Performed By: #### U A #### [address] Aspartate aminotransferase [ Enzymatic activity/volume] in Serum or PlasmaOrdered By: Madison Natasha on 07-13-2025 AST [Catalytic activity/Vol] 34 U/L Normal 13-39 [facility] Comment on above: Performed By: #### C BC, CMP #### [place] [address] [place] Basophils [#/volume] in Bloo d by Automated countOrdered By: Madisonstuart Drew on 07-13-2025 Basophils (Bld) [#/Vol] 0.0 10*3/uL Normal 0.0-0.2 [facility] Comment on above: Result Comment: PERF ORMED BY: [place] [address] PATHOLOGIST LASER TECHNICIAN DORITA KOROMA M.D. Performed By: #### C BC, CMP #### [place] [address] [place] Basophils/100 leukocytes in Blood by Automated countOrdered By: Madison Natasha on 07-13-2025 Basophils/100 WBC (Bld) 0.9 % Normal . [facility] Comment on above: Performed By: #### C BC, CMP #### [address] Bilirubin Test strip Ql (U)O rdered By: Madison Drew on 07-13-2025 Bilirubin Ql (U) Negative Negative [facility] Bilirubin.total [Mass/volume ] in Serum or PlasmaOrdered By: Madison Drew on 07-13-2025 Bilirubin [Mass/Vol] 0.7 mg/dL Normal 0.3-1.0 [facility] Comment on above: Performed By: #### C BC, CMP #### [facility] [id number] [facility] CT angio neckon 07-13-2025 CT angio neck [facility] Main [place] [address] [place] [address] CT Scan Report Signed Patient: Manuel Balderas MR#: [id number] : 1950 Acct:[id number] Age/Sex: 75 / M ADM Date: 07/13/25 Loc: ER Room: Type: PRE ER Attending Dr: Copies to: Madison Drew DO Ordering Provider: Madison Drew DO Date of Service: 07/13/25 CT/CT angio neck: vertigo ([id number]) CT/CT angio head: vertigo CT angiogram head and neck INDICATION: Near syncopal episode, dizziness COMPARISON: CT head 07/13/2025 TECHNIQUE: Contiguous axial CT angiogram images obtained through the head and neck with coronal and sagittal reformats. Evaluation degree of ICA narrowing was performed utilizing NASCET criteria. This CT exam was performed using one or more following dose reduction techniques: Automated exposure control, adjustment of the mA and/or kV according to patient size, or use of iterative reconstruction technique. FINDINGS: 4 vessel configuration of the arch with left vertebral artery arising from the arch. Great Vessels are patent. Common carotid arteries, carotid bifurcations and cervical ICAs are patent without hemodynamically significant stenosis or narrowing her NASCET criteria. Retropharyngeal course of the bifurcations noted. The vertebral arteries are codominant and patent throughout their course. Intracranial ICAs are patent with mild plaque. origin right REHABILITATION INSPECTOR. origin left REHABILITATION INSPECTOR with small contribution from the basilar artery. Otherwise the intradural vertebral arteries and basilar artery appear patent. Posterior arteries are patent. Picas are patent. There is slight tortuosity and slight prominence of the left intradural vertebral artery incidentally noted Anterior cerebral arteries are patent. Anterior communicating artery is patent. Middle cerebral arteries are patent.. Major dural venous sinuses appear grossly preserved. No saccular aneurysm identified CT/CT angio head IMPRESSION: Negative for large vessel occlusion or hemodynamically significant stenosis. Impression dictated by: Marty Sandoval M.D. 07/13/2025 4:10 PM Dictation Location: RADIO-PC-29 Transcribed By: RHONDA 07/13/25 1610 Dictated By: Marty Sandoval MD 07/13/25 1602 Signed By: 07/13/25 1610 Normal [facility] CT head/brain wo conon 07-13 CT head/brain wo con [facility] Main [place] [address] [place] [address] CT Scan Report Signed Patient: Manuel Balderas MR#: [id number] : 1950 Acct:[id number] Age/Sex: 75 / M ADM Date: 07/13/25 Loc: ER Room: Type: PRE ER Attending Dr: Copies to: Madison Drew DO Ordering Provider: Madison Drew DO Date of Service: 07/13/25 CT/CT head/brain wo con: altered mental status CT BRAIN WITHOUT CONTRAST: CLINICAL HISTORY: Altered mental status COMPARISON: None TECHNIQUE: Contiguous axial unenhanced images were obtained through the brain. This CT exam was performed using one or more following dose reduction techniques: Automated exposure control, adjustment of the mA and/or kV according to patient size, or use of iterative reconstruction technique. FINDINGS: There is no evidence of midline shift, intra or extra-axial fluid collection, hemorrhage or CT evidence of acute large vascular distribution stroke. Mild periventricular subcortical hypoattenuation suggestive of chronic small vessel ischemic disease. There are intracranial vascular calcifications. Cataract surgery. Visualized paranasal sinuses are clear. The surrounding soft tissues are normal. CT/CT head/brain wo con IMPRESSION: NO ACUTE INTRACRANIAL ABNORMALITY. CHRONIC SMALL VESSEL ISCHEMIC DISEASE. Impression dictated by: Marty Sandoval M.D. 07/13/2025 3:51 PM Dictation Location: RADIO-PC-29 Transcribed By: RHONDA 07/13/25 1551 Dictated By: Marty Sandoval MD 07/13/25 1548 Signed By: 07/13/25 1551 Normal [facility] Calcium [Mass/volume] in Ser um or PlasmaOrdered By: Madison Drew on 07-13-2025 Calcium [Mass/Vol] 10.3 mg/dL Normal 8.6-10.3 [facility] Comment on above: Performed By: #### C BC, CMP #### [facility] [address] Capillary blood glucose edu urement by glucometer (mass/volume)Ordered By: Madison Drew on 07-13-2025 Glucose [Mass/Vol] 120 mg/dL Normal [facility] Comment on above: Random Glucose Refer ence Range is dependent on time and content of last meal. Glucose of more than 200 mg/dL in a nonstressed, ambulatory subject supports the diagnosis of Diabetes Mellitus. Result Comment: [place] om Glucose Reference Range is dependent on time and content of last meal. Glucose of more than 200 mg/dL in a nonstressed, ambulatory subject supports the diagnosis of Diabetes Mellitus. PERFORMED BY: [address] [place] [address] PATHOLOGIST LASER TECHNICIAN DORITA KOROMA M.D. Performed By: #### G LULS #### Point of Care testing , Carbon dioxide, total [Moles /volume] in Serum or PlasmaOrdered By: Madison Drew on 07-13-2025 CO2 [Moles/Vol] 21.6 mmol/L Normal 21.0-31.0 [facility] Comment on above: Performed By: #### C BC, CMP #### [facility] [address] [place] [address] [place] Chloride [Moles/volume] in S gilmer or PlasmaOrdered By: Madison Drew on 07-13-2025 Chloride [Moles/Vol] 106 mmol/L Normal 98-107 [facility] Comment on above: Performed By: #### C BC, CMP #### [place] [address] [place] Color of Urine by AutoOrdere d By: Madison Drew on 07-13-2025 Color (U) Light-yellow Normal Yellow [facility] Comment on above: Order Comment: Name Collection Type:: Clean-Voided Midstream Performed By: #### U A #### [address] Complete Blood Count Auto Di ffon 07-13-2025 Mean Corpuscular HGB Conc 33.2 g/dL Normal 32.5-35.6 [facility] Comment on above: Performed By: #### C BC, CMP #### [address] Monocytes/100 WBC (Bld) 20.41 % High 0.00-20.00 [facility] Comment on above: Result Comment: For adults in ED, MDW > 20.0 may be associated with a higher risk of sepsis during the first 12 hrs of hospital admission Performed By: #### C BC, CMP #### [address] NRBC% 0.2 /100{WBC} Normal 0-0.5 [facility] Comment on above: Performed By: #### C BC, CMP #### [address] White Blood Count 5.1 [CFU]/mL Normal 4.1-10.5 [facility] Comment on above: Performed By: #### C BC, CMP #### [address] Comprehensive Metabolic Pane jerry 07-13-2025 Albumin [Mass/Vol] 4.0 g/dL Normal 3.5-5.7 [facility] Comment on above: Performed By: #### C BC, CMP #### [address] Creatinine Clr Calc Pharmacy 77.72 Normal [facility] Comment on above: Result Comment: PERF ORMED BY: [place] [address] PATHOLOGIST LASER TECHNICIAN DORITA KOROMA M.D. Performed By: #### C BC, CMP #### [address] GFR/1.73 sq M.predicted MDRD (S/P/Bld) [Vol rate/Area] mL/min/{1.73_m2} Normal [facility] Comment on above: Performed By: #### C BC, CMP #### [address] Creatinine [Mass/volume] in Serum or PlasmaOrdered By: Madison Drew on 07-13-2025 Creatinine [Mass/Vol] 1.16 mg/dL Normal 0.70-1.30 [facility] Comment on above: Performed By: #### C BC, CMP #### [address] ECG 12 lead ECGon 07-13-2025 ECG 12 lead ECG [facility] Main [place] [address] [place] [address] Electrocardiograph Report Signed Patient: Manuel Balderas MR#: [id number] : 1950 Acct:[id number] Age/Sex: 75 / M ADM Date: 07/13/25 Loc: ER Room: Type: PRE ER Attending Dr: Ordering Provider: Madison Drew DO Date of Service: 07/13/2510/25/1441 ECG/ECG 12 lead ECG: Syncope Copies to: Test Reason : Blood Pressure : */* mmHG Vent. Rate : 62 BPM Atrial Rate : 62 BPM P-R Int : 250 ms QRS Dur : 136 ms QT Int : 396 ms P-R-T Axes : 10 74 32 degrees QTcB Int : 401 ms Sinus rhythm with 1st degree AV block Right bundle branch block Possible Lateral infarct , age undetermined Cannot rule out Inferior infarct (cited on or before 26-Oct-2013) Abnormal ECG When compared with ECG of 03-Apr-2021 12:22, No significant change was found Confirmed by MADISON DREW DO ([id number]) on 07/13/2025 3:09:53 PM Referred By: Electronically Signed By: MADISON DREW DO Transcribed By: MUS Signed By Madison Drew DO 1509 Normal [facility] Eosinophils [#/volume] in Bl ood by Automated countOrdered By: Madison Drew on 07-13-2025 Eosinophils (Bld) [#/Vol] 0.2 10*3/uL Normal 0.0-0.45 [facility] Comment on above: Performed By: #### C BC, CMP #### [address] Eosinophils/100 leukocytes i n Blood by Automated countOrdered By: Madison Drew on 07-13-2025 Eosinophils/100 WBC (Bld) 3.6 % Normal . [facility] Comment on above: Performed By: #### C BC, CMP #### [address] Erythrocyte distribution wid th [Ratio] by Automated countOrdered By: Madison Drew on 07-13-2025 Erythrocyte distribution width (RBC) [Ratio] 15.5 % High 12.0-14.8 [facility] Comment on above: Performed By: #### C LEOPOLDO, CMP #### [address] Erythrocytes [#/volume] in B lood by Automated countOrdered By: Madison Drew on 07-13-2025 RBC (Bld) [#/Vol] 4.16 10*6/uL Normal 3.90-5.60 [facility] Comment on above: Performed By: #### C BC, CMP #### [address] Glomerular filtration rate [ Volume Rate/Area] in Serum, Plasma or Blood by CreatinineOrdered By: Madison Drew on 07-13-2025 Glomerular filtration rate [Volume Rate/Area] in Serum, Plasma or Blood by Creatinine > 60.0 mL/Min [facility] Glucose [Mass/volume] in Ser um or PlasmaOrdered By: Madison Drew on 07-13-2025 Glucose [Mass/Vol] 135 mg/dL High 70-100 [facility] Comment on above: ADA recommended refe rence rangeRandom Glucose Reference Range is dependent on time and content of last meal. Glucose of more than 200 mg/dL in a nonstressed, ambulatory subject supports the diagnosis of Diabetes Mellitus. Result Comment: [place] om Glucose Reference Range is dependent on time and content of last meal. Glucose of more than 200 mg/dL in a nonstressed, ambulatory subject supports the diagnosis of Diabetes Mellitus. ADA recommended reference range Performed By: #### C BC, CMP #### [address] Glucose [Mass/volume] in Uri ne by Test stripOrdered By: Madison Drew on 07-13-2025 Glucose Test strip (U) [Mass/Vol] >=1000 mg/dL High Normal [facility] Hematocrit [Volume Fraction] of Blood by Automated countOrdered By: Madison Drew on 07-13-2025 Hematocrit (Bld) [Volume fraction] 39.8 % Normal 38.8-50.0 [facility] Comment on above: Performed By: #### C LEOPOLDO, CMP #### [address] Hemoglobin Test strip Ql (U) Ordered By: Madison Drew on 07-13-2025 Hemoglobin Ql (U) Negative Negative [facility] Hemoglobin [Mass/volume] in BloodOrdered By: Madison Drew on 07-13-2025 Hemoglobin (Bld) [Mass/Vol] 13.2 g/dL Normal 13.0-17.0 [facility] Comment on above: Performed By: #### C LEOPOLDO, CMP #### [place] [address] [place] Ketones [Presence] in Urine by Test stripOrdered By: Madison Drew on 07-13-2025 Ketones Ql (U) Negative Normal Negative [facility] Comment on above: Order Comment: Name Collection Type:: Clean-Voided Midstream Performed By: #### U A #### [place] [address] [place] Leukocyte esterase [Presence ] in Urine by Test stripOrdered By: Madison Drew on 07-13-2025 Leukocyte esterase Test strip Ql (U) Negative Normal Negative [facility] Comment on above: Order Comment: Name Collection Type:: Clean-Voided Midstream Performed By: #### U A #### [place] [address] [place] Leukocytes [#/volume] correc deidre for nucleated erythrocytes in Blood by Automated counOrdered By: Madison Drew on 07-13-2025 WBC corrected for nucl RBC Auto (Bld) [#/Vol] 5.1 10*3/uL 4.1-10.5 [facility] Leukocytes [#/volume] in Blo od by Automated countOrdered By: Madison Drew on 07-13-2025 WBC (Bld) [#/Vol] 5.1 10*3/uL Normal 4.1-10.5 [facility] Comment on above: Performed By: #### C BC, CMP #### [address] Lymphocytes [#/volume] in Bl ood by Automated countOrdered By: Madison Drew on 07-13-2025 Lymphocytes (Bld) [#/Vol] 0.7 10*3/uL Low 1.00-4.8 [facility] Comment on above: Performed By: #### C BC, CMP #### [address] Lymphocytes/100 leukocytes i n Blood by Automated countOrdered By: Madison Drew on 07-13-2025 Lymphocytes/100 WBC (Bld) 14.5 % Normal . [facility] Comment on above: Performed By: #### C BC, CMP #### [address] MCH [Entitic mass] by Automa deidre countOrdered By: Madison Drew on 07-13-2025 MCH (RBC) [Entitic mass] 31.7 pg Normal 27.5-35.2 [facility] Comment on above: Performed By: #### C BC, CMP #### [address] MCHC Auto (RBC) [Mass/Vol]Or dered By: Madison Drew on 07-13-2025 MCHC (RBC) [Mass/Vol] 33.2 g/dL 32.5-35.6 [facility] MCV [Entitic volume] by Auto mated countOrdered By: Madison Drew on 07-13-2025 MCV (RBC) [Entitic vol] 95.5 fL Normal 83.5-101 [facility] Comment on above: Performed By: #### C BC, CMP #### [place] [address] [place] Monocyte distribution width [Entitic volume] in Blood by AutomatedOrdered By: Madison Drew on 07-13-2025 Monocyte distribution width Auto (Bld) [Entitic vol] 20.41 % High 0.00-20.00 [facility] Comment on above: For adults in ED, MD W > 20.0 may be associated with a higher risk of sepsis during the first 12 hrs of hospital admission Monocytes [#/volume] in Bloo d by Automated countOrdered By: Madison Drew on 07-13-2025 Monocytes (Bld) [#/Vol] 0.5 10*3/uL Normal 0.0-0.8 [facility] Comment on above: Performed By: #### C BC, CMP #### [place] [address] [place] Monocytes/100 leukocytes in Blood by Automated countOrdered By: Madison Drew on 07-13-2025 Monocytes/100 WBC (Bld) 10.8 % Normal . [facility] Comment on above: Performed By: #### C BC, CMP #### [facility] [address] [place] [address] [place] Neutrophils [#/volume] in Bl ood by Automated countOrdered By: Madison Drew on 07-13-2025 Neutrophils (Bld) [#/Vol] 3.6 10*3/uL Normal 1.8-7.7 [facility] Comment on above: Performed By: #### C BC, CMP #### [facility] [address] [place] [id number] [place] Neutrophils/100 leukocytes i n Blood by Automated countOrdered By: Madison Drew on 07-13-2025 Neutrophils/100 WBC (Bld) 70.2 % Normal . [facility] Comment on above: Performed By: #### C BC, CMP #### [address] Nitrite Test strip Ql (U)Ord ered By: Madison Drew on 07-13-2025 Nitrite Ql (U) Negative Negative [facility] No Panel InformationOrdered By: Madison Drew on 07-13-2025 Pharmacy Creatinine Clearance (Chem 77.72 [facility] Nucleated erythrocytes [Pres ence] in Blood by Automated countOrdered By: Madison Drew on 07-13-2025 Nucleated RBC Auto Ql (Bld) 0.2 /100{WBC} 0-0.5 [facility] Platelet mean volume [Entiti c volume] in Blood by Automated countOrdered By: Madison Drew on 07-13-2025 Platelet mean volume (Bld) [Entitic vol] 8.4 fL Normal 6.6-10.1 [facility] Comment on above: Performed By: #### C BC, CMP #### [address] Platelets [#/volume] in Bloo d by Automated countOrdered By: Madison Drew on 07-13-2025 Platelets (Bld) [#/Vol] 116 10*3/uL Low 150-450 [facility] Comment on above: Performed By: #### C BC, CMP #### [address] Potassium [Moles/volume] in Serum or PlasmaOrdered By: Madison Drew on 07-13-2025 Potassium [Moles/Vol] 4.3 mmol/L Normal 3.5-5.1 [facility] Comment on above: Performed By: #### C BC, CMP #### [address] Protein Test strip (U) [Mass /Vol]Ordered By: Madison Drew on 07-13-2025 Protein (U) [Mass/Vol] Negative Negative [facility] Protein [Mass/volume] in Ser um or PlasmaOrdered By: Madison Drew on 07-13-2025 Protein [Mass/Vol] 6.2 g/dL Low 6.4-8.9 [facility] Comment on above: Performed By: #### C BC, CMP #### [address] Serum globulin measurement b y calculation (mass/volume)Ordered By: Madison Drew on 07-13-2025 Globulin (S) [Mass/Vol] 2.2 g/dL Normal [facility] Comment on above: Performed By: #### C BC, CMP #### [address] Serum or plasma albumin/glob ulin mass ratioOrdered By: Madison Drew on 07-13-2025 Albumin/Globulin [Mass ratio] 1.8 {ratio} Normal [facility] Comment on above: Performed By: #### C BC, CMP #### [address] Serum or plasma anion gap de terminationOrdered By: Madison Drew on 07-13-2025 Anion gap [Moles/Vol] 15.7 mmol/L High 6.0-15.0 [facility] Comment on above: Performed By: #### C BC, CMP #### [address] Sodium [Moles/volume] in Ser um or PlasmaOrdered By: Madison Drew on 07-13-2025 Sodium [Moles/Vol] 139 mmol/L Normal 136-145 [facility] Comment on above: Performed By: #### C BC, CMP #### [address] Specific gravity Test strip (U) [Rel density]Ordered By: Madison Drew on 07-13-2025 Specific gravity (U) [Rel density] 1.014 1.001-1.030 [facility] Urea nitrogen [Mass/volume] in Serum or PlasmaOrdered By: Madison Drew on 07-13-2025 Urea nitrogen [Mass/Vol] 38 mg/dL High 7-25 [facility] Comment on above: Performed By: #### C BC, CMP #### [address] Urinalysison 07-13-2025 Bilirubin,Urine Negative Normal Negative [facility] Comment on above: Order Comment: Name Collection Type:: Clean-Voided Midstream Performed By: #### U A #### [address] Glucose Ql (U) >= Normal Normal [facility] Comment on above: Order Comment: Name Collection Type:: Clean-Voided Midstream Performed By: #### U A #### [address] Nitrite,Urine Negative Normal Negative [facility] Comment on above: Order Comment: Name Collection Type:: Clean-Voided Midstream Performed By: #### U A #### [address] Occult Blood,Urine Negative Normal Negative [facility] Comment on above: Order Comment: Name Collection Type:: Clean-Voided Midstream Result Comment: PERF ORMED BY: [place] [address] PATHOLOGIST LASER TECHNICIAN DORITA KOROMA M.D. Performed By: #### U A #### [address] Protein,Urine Negative Normal Negative [facility] Comment on above: Order Comment: Name Collection Type:: Clean-Voided Midstream Performed By: #### U A #### [address] Specificy [place],Urine 1.014 Normal 1.001-1.030 [facility] Comment on above: Order Comment: Name Collection Type:: Clean-Voided Midstream Performed By: #### U A #### [address] Urobilinogen,Urine Normal Normal Normal [facility] Comment on above: Order Comment: Name Collection Type:: Clean-Voided Midstream Performed By: #### U A #### [address] Urobilinogen Test strip (U) [Mass/Vol]Ordered By: Madison Drew on 07-13-2025 Urobilinogen (U) [Mass/Vol] Normal mg/dL Normal [facility] pH of Urine by Test stripOrd ered By: Madisonstuart Drew on 07-13-2025 pH (U) 8.0 [pH] Normal 5.0-9.0 [facility] Comment on above: Order Comment: Name Collection Type:: Clean-Voided Midstream Performed By: #### U A #### [facility] [address] No Panel InformationOrdered By: Madison Wood on 05-22-2025 Miscellaneous Pathology Test See comment [facility] Comment on above: See report. Scanned copy available in EMR. Pathology Request for Lab Co rpon 05-22-2025 Pathology Request for Lab Jeanne Normal [facility] Comment on above: Order Comment: PROST ATE BIOPSY Result Comment: See report. Scanned copy available in EMR. PERFORMED BY: [address] [place] [address] PATHOLOGIST LASER TECHNICIAN DORITA KOROMA M.D. Performed By: #### P ATH TO [facility] #### [facility] [address] MLR HEMOGLOBIN A1Con 025 Glucose [Mass/Vol] 151 mg/dL [facility] HbA1c (Bld) [Mass fraction] 6.9 % High 4.5 - 6.2 % [facility] Comment on above: ADA RECOMMENDED LIMI T 4.0 - 6.0 ADA THERAPEUTIC TARGET < 7.0 ACTION SUGGESTED > 7.0 No Panel Informationon 04-24 Interpretation and review of laboratory results Abnormal [facility] MICROALB CREAT RATIO RAN DOMon 04-24-2025 CREATININE URINE RANDOM 52.26 mg/dL 20.0 0 - 300.00 mg/dL [facility] MICROALBUM CREATININE RATIO UR 57.4 mg/g High 0.0 - 29.9 mg/g [facility] Comment on above: NO MICROALBUMINURIA 0-29 MG/G CLINICAL MICROALBUMINURIA 30-300 MG/G MACROALBUMINURIA >300 MG/G MICROALBUMIN URINE RANDOM 3 mg/dL NINF - 30.0 mg/dL [facility] ISTAT XRay CREon 04-23-2025 ISTAT GFR 57.289 Normal [facility] Comment on above: Result Comment: PERF ORMED BY: [place] [address] PATHOLOGIST LASER TECHNICIAN DORITA KOROMA M.D. Performed By: #### I SCRE #### [address] MR prostate wo/w conon 04-23 MR prostate wo/w con [facility] Main [place] [address] [place] [address] MRI Report Signed Patient: Manuel Balderas MR#: [id number] : 1950 Acct:[id number] Age/Sex: 75 / M ADM Date: 04/23/25 Loc: Room: Type: [facility] Attending Dr: Madison Wood MD Copies to: Madison Wood MD Ordering Provider: Madison Wood MD Date of Service: 04/23/25 MR/MR prostate [...] recommended. Impression dictated by: Rickie Cornejo Jr., D.OSiria 04/23/2025 4:52 PM Dictation Location: [place] [address] Transcribed By: RHONDA 04/23/25 1652 Dictated By: Rickie Cornejo Jr, DO 04/23/25 1645 Signed By: 04/23/25 1652 Normal [facility] No Panel InformationOrdered By: Madison Wood on 04-23-2025 Bedside Estimated GFR (eGFR) 57.289 [facility] Whole blood creatinine measu rementOrdered By: Madison Wood on 04-23-2025 Creatinine [Mass/Vol] 1.3 mg/dL Normal 0.6-1.3 [facility] Comment on above: ER/ESD physician is notified/shown all ISTAT results.Critical values may be confirmed by laboratory testing ifdeemed necessary by ER attending doctor. Result Comment: ER/E SD physician is notified/shown all ISTAT results. Critical values may be confirmed by laboratory testing if deemed necessary by ER attending doctor. Performed By: #### I SCRE #### [facility] [address] [place] [address] Ambulatory Visit Summaryon 0 - Ambulatory Visit Summary Ambulatory Visit Summary MANUEL [...] Your Care Team Attending Physician - Madison WOOD MD Primary Care Physician - JELENA LEVY, [...] oral tablet) hydrochlorothiazide (hydrochlorothiazide 25 mg Tab) hydrochlorothiazide-lo sartan (hydrochlorothiazide-l osartan 12.5 mg-100 mg oral tablet) insulin glargine [...] the Following Appointments Follow Up with Madison WOOD MD, MELANIE When: Where: [facility] [address] , [place] [address] [phone] Medications What How Much When Why Instructions [...] prescribing physician if questions or concerns Unchanged hydrochlorothiazide-lo sartan (hydrochlorothiazide-l osartan 12.5 mg-100 mg oral tablet) 1 Tablets [...] choosing us (more content not included)... Normal [facility] Urology Office/Clinic Noteon 04-02-2025 Urology Office/Clinic Note [...] and history for this patient from Dr. Wood. I have reviewed and verified the staff [...] pros ca. Follow-up With When Contact Information NINA LEVY, Madison Crespo, URL [facility] [address], [place] [address] [phone] Additional Instructions: schedule prostate MRI Patient Education Magnetic Resonance Imaging Prostate Cancer Screening I, Kenyatta Mosher, personally scribed for Dr. Wood on 04/02/2025 13:13:08. . Documentation recorded by the valibeKenyatta, accurately reflects the services(s) I performed and decisions made by me. Authenticated by Dr. Wood on 04/02/2025 13:14:26. Problem List/Past Medical History [...] included)... Normal [facility] Comment on above: Result Comment: Elec tronically Signed By: Madison WOOD MD\.br\Date and Time Signed: 04/02/25 13:14 EDT\.br\Electronically Co-Signed By: Kenyatta Mosher\.br\Date and Time Co-Signed: 04/02/25 13:13 EDT MHPT PSA, DIAGNOSTICon 03-15 Interpretation and review of laboratory results Abnormal [facility] PROSTATE SPECIFIC ANTIGEN DX 5.8 ng/mL High NINF - 4.00 ng/mL [facility] Ambulatory Visit Summaryon 0 12-18-2024 Ambulatory Visit Summary Ambulatory Visit Summary MANUEL BALDERAS :1950 Visit Date:12/18/2024 Ambulatory Visit Instructions Your Diagnosis OAB (overactive bladder) Elevated PSA Kidney stones BPH with urinary obstruction Family history of prostate cancer in father Your Care Team Attending Physician - Madison WOOD MD Primary Care Physician - KHOA BOWLES MD This Is Your Medications List allopurinol (allopurinol 300 mg Tab) hydrochlorothiazide-lo sartan (hydrochlorothiazide-l osartan 12.5 mg-100 mg oral tablet) sodium bicarbonate [...] to do next Scheduled Follow-Up Appointments Wednesday 11:45 AM EDT With: NINA LEVY, Madison Crespo Where: [facility] of [address] [place] [address]- You Need to Schedule the Following Appointments Follow Up with NINA LEVY, MELANIE Sims When: Comments: 3 mos w/ PVR and PSA Where: [facility] [address], [facility] [[email or web address]] [place] [place] [address] [phone] Medications What How Much When Why Instructions New solifenacin (Vesicare 10 mg Tab) 1 Tablets By Mouth Every day OAB (overactive bladder) Refills: 11 Pickup at [facility] Unchanged allopurinol (allopurinol 300 mg Tab) 1 Tablets By Mouth Every day Unchanged hydrochlorothiazide-lo sartan (hydrochlorothiazide-l osartan 12.5 mg-100 mg oral tablet) 1 Tablets [...] physician if questions or concerns Pharmacy Information [facility]: [address] [place] [phone] What How Much When Comments Stop Taking mirabegron (mirabegron 50 mg oral tablet, extended release) 1 Tablets By M (more content not included)... Normal [facility] Ambulatory Visit Summary Ambulatory Visit Summary MANUEL BALDERAS :1950 Visit Date:12/18/2024 Ambulatory Visit Instructions Your Diagnosis OAB (overactive bladder) Elevated PSA Kidney stones BPH with urinary obstruction Family history of prostate cancer in father Your Care Team Attending Physician - NINA LEVY, Madison Crespo Primary Care Physician - JELENA LEVY, KHOA Yanes This Is Your Medications List allopurinol (allopurinol 300 mg Tab) hydrochlorothiazide-lo sartan (hydrochlorothiazide-l osartan 12.5 mg-100 mg oral tablet) sodium bicarbonate [...] Wednesday. 2024 11:45 AM EDT With: Madison WOOD MD Where: [facility] [address] [place] [address] [place] [address]- You Need to Schedule the Following Appointments Follow Up with Madison WOOD MD, URL When: Comments: 3 mos w/ PVR and PSA Where: [facility] [address], [facility] [place] [address] [phone] Medications What How Much When Why Instructions New solifenacin (Vesicare 10 mg Tab) 1 Tablets By Mouth Every day OAB (overactive bladder) Refills: 11 Pickup at [facility] Unchanged allopurinol (allopurinol 300 mg Tab) 1 Tablets By Mouth Every day Unchanged hydrochlorothiazide-lo sartan (hydrochlorothiazide-l osartan 12.5 mg-100 mg oral tablet) 1 Tablets [...] physician if questions or concerns Pharmacy Information [facility]: [address] [place] [phone] What How Much When Comments Stop Taking mirabegron (mirabegron 50 mg oral tablet, extended release) 1 Tablets By M (more content not included)... Normal [facility] Urology Office/Clinic Noteon 12-18-2024 Urology Office/Clinic Note [...] and history for this patient from Dr. Wood. I have reviewed and verified the staff [...] 10mg qd. Recommended GoodRx. Rx sent to [facility] Maria R. -F/u in 3 mos w/ [...] [facility] [address], [place] [phone] Additional Instructions: 3 mos w/ PVR and PSA Patient Education Overactive Bladder, Adult I, Kenyatta Mosher, personally scribed for Dr. Wood on 12/18/2024 11:32:33. . Documentation recorded by the scribe, Kenyatta Mosher, accurately reflects the services(s) I performed and decisions made by me. Authenticated by Dr. Wood on 12/18/2024 11:36:00. Problem List/Past Medical History [...] included)... Normal [facility] Comment on above: Result Comment: Elec tronically Signed By: Madison WOOD MD\.br\Date and Time Signed: 12/18/24 11:36 EST\.br\Electronically Co-Signed By: Kenyatta Mosher.br\Date and Time Co-Signed: 12/18/24 11:33 EST [facility] CMP (CMP) (FOR REMOTE FH C USE)on 10-26-2024 Albumin [Mass/Vol] 3.8 g/dL 3.4 - 5.0 g/dL [facility] ALBUMIN GLOBULIN RATIO 1.5 NO [facility] ALP [Catalytic activity/Vol] 60 U/L 46 - 116 U/L [facility] ALT [Catalytic activity/Vol] 56 U/L 16 - 63 U/L [facility] Anion gap [Moles/Vol] 14.2 mmol/L NO [facility] AST [Catalytic activity/Vol] 42 U/L High 15 - 37 U/L [facility] Bilirubin [Mass/Vol] 0.5 mg/dL 0.2 - 1 .0 mg/dL [facility] Calcium [Mass/Vol] 10.2 mg/dL High 8.5 - 10. 1 mg/dL [facility] Chloride [Moles/Vol] 106 mmol/L 98 - 10 7 mmol/L [facility] CO2 [Moles/Vol] 27.4 mmol/L 21.0 - 32.0 mmol/L [facility] Creatinine [Mass/Vol] 1.32 mg/dL High 0.70 - 1.30 mg/dL [facility] GFR/1.73 sq M.predicted CKD-EPI (S/P/Bld) [Vol rate/Area] >60 >=60 mL/min/1.73m 2 [facility] Globulin (S) [Mass/Vol] 2.6 g/dL [facility] Glucose [Mass/Vol] 176 mg/dL High 74 - 106 mg/dL [facility] Interpretation and review of laboratory results Abnormal [facility] Potassium [Moles/Vol] 4.6 mmol/L 3.5 - 5.1 mmol/L [facility] Protein [Mass/Vol] 6.4 g/dL 6.4 - 8.2 g/dL [facility] Sodium [Moles/Vol] 143 mmol/L 136 - 145 mmol/L [facility] EGFR-NON AF SOMALI 53 Low >=60 mL/min/1.73m 2 [facility] Urea nitrogen [Mass/Vol] 35 mg/dL High 7.0 - 18.0 mg/dL [facility] Urea nitrogen/Creatinine [Mass ratio] 26.5 mg/mg [facility] Ambulatory Visit Summaryon 1 11-04-2023 Ambulatory Visit [...] mg Cap) hydrochlorothiazide (hydrochlorothiazide 25 mg Tab) hydrochlorothiazide-lo sartan (hydrochlorothiazide-l osartan 12.5 mg-100 mg oral tablet) insulin glargine [...] Appointments Wednesday 10:45 AM EST With: Madison WOOD MD Where: [facility] [address] [place] [address]- You Need to Schedule the Following Appointments Follow Up with Madison WOOD MD, URL When: Where: [facility] [address], [place] [address]- Medications What How Much When Instructions New mirabegron (mirabegron 50 mg oral tablet, extended release) 1 Tablets By Mouth Every day Duration: 30 Days Refills: [address] [facility]/pharmacy #[id number] Unchanged allopurinol (allopurinol 300 mg Tab) 1 [...] prescribing physician if questions or concerns Unchanged hydrochlorothiazide-lo sartan (hydrochlorothiazide-l osartan 12.5 mg-100 mg oral tablet) 1 Tablets [...] physician if questions or concerns Pharmacy Information [facility]/pharmacy #[id number]: [address], [place] [phone] Allergies Demerol (Shakes) Meperidine HCl-Promethazine HCl (Unknown) Problems Ongoing - Any problem that you are currently recei (more content not included)... Normal [facility] Urology Office/Clinic Noteon 09-04-2024 Urology Office/Clinic Note [...] and history for this patient from Dr. Wood. I have reviewed and verified the staff [...] mg ER qd. SEs discussed. Sent to [facility]. 3. Elevated PSA (R97.20: Elevated prostate specific [...] above. Follow-up With When Contact Information Madison WOOD MD, URL [facility] [address], [place] [address]- Additional Instructions: 3 mos with PVR Patient Education Dietary Guidelines to Help Prevent Kidney Stones I, Kenzie Fierro, personally scribed for Dr. Wood on 09/04/2024 14:26:01. . Documentation recorded by the scribe, Kenzie Fierro, accurately reflects the services(s) I performed and decisions made by me. Authenticated by Dr. Wood on 09/04/2024 14:27:17. Problem List/Past Medical History [...] included)... Normal [facility] Comment on above: Result Comment: Elec tronically Signed By: Madison WOOD MD\.br\Date and Time Signed: 09/04/24 14:27 EST\.br\Electronically Co-Signed By: Kenzie Fierro\.br\Date and Time Co-Signed: 09/04/24 14:26 EST PT PSA, DIAGNOSTICon 08-31 Interpretation and review of laboratory results Abnormal [facility] PROSTATE SPECIFIC ANTIGEN DX 5.17 ng/mL High NINF - 4.00 ng/mL [facility] CITRATE URINE 24HRon 023 Citric Acid, U, 24hr 1042 mg/24 hr Normal 320-1240 [facility] Comment on above: Result Comment: This test was developed and its performance characteristics determined by [employer]. It has not been cleared or approved by the Food and Drug Administration. Performed By: #### C BC #### [facility] [address] [address] [address] [place] Snowden Citric Acid, Urine 731 mg/L Normal Undefined [facility] Comment on above: Performed By: #### C BC #### [facility] [address] [place] [address] Dr. [place] Snowden OXALATE 24HR URINEon 023 Oxalates, Urine 19 mg/L Normal Undefined [facility] Comment on above: Performed By: #### C BC #### [facility] [address] [place] [address] Dr. [place] Snowden Oxalates, Urine 24hr 27 mg/24 hr Normal 7-44 [facility] Comment on above: Performed By: #### C BC #### [facility] [address] [place] [address] Dr. [place] Snowden MAGNESIUM 24HR URINEon 02-05 Magnesium 24hr Urine 82.7 mg/24 hr Normal 12.0-293.0 [facility] Comment on above: Performed By: #### C BC #### [facility] [address] [place] [address] Dr. [place] Snowden Magnesium UR 5.8 mg/dL Normal Not Estab. [facility] Comment on above: Performed By: #### C BC #### [facility] [address] [place] [address] Dr. [place] Snowden PHOSPHORUS 24HR URINEon 04 Phosphorus, Urine 59.7 mg/dL Normal Not Estab. [facility] Comment on above: Performed By: #### P T, PTT #### [facility] [address] [place] [address] Dr. [place] Snowden Phosphorus, Urine 24hr 851 mg/24 hr Normal 390-1425 [facility] Comment on above: Performed By: #### P T, PTT #### [facility] [address] [place] [address] Dr. [place] Snowden PTH INTACTon 02-05-2023 PTH, Intact 18 pg/mL Normal 15-65 [facility] Comment on above: Performed By: #### P THINT #### [facility] [address] [place] [address] Dr. [place] Snowden URIC ACID 24 HR URINEon Uric Acid, Urine 36.4 mg/dL Normal Not Estab. [facility] Comment on above: Performed By: #### P T, PTT #### [facility] [address] [place] [address] Dr. [place] Snowden Uric Acid, Urine 24hr 518.7 mg/24 hr Normal 136.1-771. 1 [facility] Comment on above: Performed By: #### P T, PTT #### [facility] [address] [place] [address] Dr. [place] Snowden BUNon 02-04-2023 Urea nitrogen [Mass/Vol] 22.0 mg/dL Critically high 7.0-18.0 [facility] Comment on above: Performed By: #### C BC #### [facility] [address] [place] [address] Dr. [place] Snowden CALCIUMon 02-04-2023 Calcium [Mass/Vol] 9.7 mg/dL Normal 8.5-10.1 [facility] Comment on above: Performed By: #### C BC #### [facility] [address] [place] [address] Dr. [place] Snowden CALCIUM 24 HR URINEon 2022 CALC, 24 HR UR 84.1 mg/24 hr Critically low 100.0-300.0 [facility] Comment on above: Performed By: #### C [id number] #### [facility] [address] [place] [address] Dr. [place] Snowden UR CALCIUM 5.9 mg/dL Normal 5.1-21.0 [facility] Comment on above: Performed By: #### C [id number] #### [facility] [address] [place] [address] Dr. [place] Snowden UR TOT VOL 1425 ml/24 HR Normal [facility] Comment on above: Performed By: #### C [id number] #### [facility] [address] [place] [address] Dr. [place] Snowden Performed By: #### C [id number], NA24U #### [facility] [address] [place] [address] Dr. [place] Snowden Performed By: #### P T, PTT #### [facility] [address] [place] [address] Dr. [place] Snowden CHLORIDEon 02-04-2023 Chloride [Moles/Vol] 107 mmol/L Normal 98-107 [facility] Comment on above: Performed By: #### C BC #### [facility] [address] [place] [address] Dr. [place] Snowden CO2on 02-04-2023 CO2 [Moles/Vol] 33.7 mmol/L Critically high 21.0-32.0 [facility] Comment on above: Performed By: #### A 1C #### [facility] [address] [place] [address] Dr. [place] Snowden CREA 24 HR URINEon 3 CREA, 24 HR UR 1115.21 mg/24 hr Normal 1,000.00- 2,0 00.00 [facility] Comment on above: Performed By: #### P T, PTT #### [facility] [address] [place] [address] Dr. [place] Snowden URINE CREAT 78.26 mg/dL Normal 20.00-300.00 [facility] Comment on above: Performed By: #### P T, PTT #### [facility] [address] [place] [address] Dr. [place] Snowden CREATININEon 02-04-2023 Creatinine [Mass/Vol] 0.91 mg/dL Normal 0.70-1.30 [facility] Comment on above: Performed By: #### A 1C #### [facility] [address] [place] [address] Dr. [place] Snowden EGFR-AF SOMALI >60 Normal >=60 [facility] Comment on above: Performed By: #### A 1C #### [facility] [address] [place] [address] Dr. [place] Snowden EGFR-NON AF SOMALI >60 Normal >=60 [facility] Comment on above: Performed By: #### A 1C #### [facility] [address] [place] [address] Dr. [place] Snowden NAon 02-04-2023 Sodium [Moles/Vol] 144 mmol/L Normal 136-145 [facility] Comment on above: Performed By: #### C BC #### [facility] [address] [place] [address] Dr. [place] Snowden POTASSIUMon 02-04-2023 Potassium [Moles/Vol] 4.1 mmol/L Normal 3.5-5.1 [facility] Comment on above: Performed By: #### A 1C #### [facility] [address] [place] [address] Dr. [place] Snowden SODIUM 24 HR URINEon 023 NA, 24 HR UR 221 mmol/24 hr Critically high 40-220 [facility] Comment on above: Performed By: #### C REA24U, NA24U #### [facility] [address] [place] [address] Dr. [place] Snowden Sodium (U) [Moles/Vol] 155 mmol/L Critically high 30-90 [facility] Comment on above: Performed By: #### C REA24U, NA24U #### [facility] [address] [place] [address] Dr. [place] Snowden URIC ACID SERUMon 02-04-2023 Urate [Mass/Vol] 4.3 mg/dL Normal 3.5-7.2 [facility] Comment on above: Performed By: #### C BC #### [facility] [address] [place] [address] Dr. [place] Snowden POINT OF CARE GLUCOSEon 12-30 Glucose [Mass/Vol] 237 mg/dL Critically high 74-106 [facility] Comment on above: Performed By: #### P T, PTT #### [facility] [address] [place] [address] Dr. [place] Snowden XR KUB 1 VIEWon [...] ISAK CORTEZ Date: 2023-01-14 08:37 Normal [facility] CBC AUTO DIFFon 01-08-2023 BASO # 0.0 103/ul Normal 0.0-0.1 [facility] Comment on above: Performed By: #### C BC #### [facility] [address] [place] [address] Dr. [place] Snowden Basophils/100 WBC (Bld) 0.4 % Normal 0.2-2.0 [facility] Comment on above: Performed By: #### C BC #### [facility] [address] [place] [address] Dr. [place] Snowden EO # 0.2 103/ul Normal 0.0-0.7 [facility] Comment on above: Performed By: #### C BC #### [facility] [address] [place] [address] Dr. [place] Snowden Eosinophils/100 WBC (Bld) 4.4 % Normal 0.9-7.0 [facility] Comment on above: Performed By: #### C BC #### [facility] [address] [place] [address] Dr. [place] Snowden Erythrocyte distribution width (RBC) [Ratio] 14.8 % Normal 11.0-15.0 [facility] Comment on above: Performed By: #### C BC #### [facility] [address] [place] [address] Dr. [place] Snowden Hematocrit (Bld) [Volume fraction] 35.7 % Critically low 42.0-54.0 [facility] Comment on above: Performed By: #### C BC #### [facility] [address] [place] [address] Dr. [place] Snowden Hemoglobin (Bld) [Mass/Vol] 12.0 g/dL Critically low 14.0-18.0 [facility] Comment on above: Performed By: #### C BC #### [facility] [address] [place] [address] Dr. [place] Snowden IG # 0.03 10e3/ul Normal 0.00-0.03 [facility] Comment on above: Performed By: #### C BC #### [facility] [address] [place] [address] Dr. [place] Snowden IG % 0.6 % Critically high 0.0-0.5 [facility] Comment on above: Performed By: #### C BC #### [facility] [address] [place] [address] Dr. [place] Snowden LYMPH # 0.7 103/ul Critically low 1.2-3.8 [facility] Comment on above: Performed By: #### C BC #### [facility] [address] [place] [address] Dr. [place] Snowden Lymphocytes/100 WBC (Bld) 14.4 % Critically low 20.5-60.0 [facility] Comment on above: Performed By: #### C BC #### [facility] [address] [place] [address] Dr. [place] Snowden MANUAL DIFF REQ NO Normal [facility] Comment on above: Performed By: #### C BC #### [facility] [address] [place] [address] Dr. [place] Snowden MCH (RBC) [Entitic mass] 31.1 pg Normal 25.9-34.0 [facility] Comment on above: Performed By: #### C BC #### [facility] [address] [place] [address] Dr. [place] Snowden MCHC (RBC) [Mass/Vol] 33.6 g/dL Normal 29.9-35.2 [facility] Comment on above: Performed By: #### C BC #### [facility] [address] [place] [address] Dr. [place] Snowden MCV (RBC) [Entitic vol] 92.5 fL Normal 80.0-94.0 [facility] Comment on above: Performed By: #### C BC #### [facility] [address] [place] [address] Dr. [place] Snowden MONO # 0.5 103/ul Normal 0.3-0.8 [facility] Comment on above: Performed By: #### C BC #### [facility] [address] [place] [address] Dr. [place] Snowden Monocytes/100 WBC (Bld) 11.0 % Normal 1.7-12.0 [facility] Comment on above: Performed By: #### C BC #### [facility] [address] [place] [address] Dr. [place] Snowden NEUT # 3.3 103/ul Normal 1.4-6.5 [facility] Comment on above: Performed By: #### C BC #### [facility] [address] [place] [address] Dr. [place] Snowden Neutrophils/100 WBC (Bld) 69.2 % Normal 43.0-75.0 [facility] Comment on above: Performed By: #### C BC #### [facility] [address] [place] [address] Dr. [place] Snowden Platelet mean volume (Bld) [Entitic vol] 10.0 fL Normal 9.5-13.5 [facility] Comment on above: Performed By: #### C BC #### [facility] [address] [place] [address] Dr. [place] Snowden PLT 105 103/ul Critically low 150-450 [facility] Comment on above: Performed By: #### C BC #### [facility] [address] [place] [address] Dr. [place] Snowden RBC 3.86 106/ul Critically low 4.70-6.10 [facility] Comment on above: Performed By: #### C BC #### [facility] [address] [place] [address] Dr. [place] Snowden WBC 4.8 103/ul Normal 4.0-11.0 [facility] Comment on above: Performed By: #### C BC #### [facility] [address] [place] [address] Dr. [place] Snowden PROF CHEM 8 (BAS METB)on Anion gap [Moles/Vol] 12.7 mmol/L Normal [facility] Comment on above: Performed By: #### C BC #### [facility] [address] [place] [address] Dr. [place] Snowden Calcium [Mass/Vol] 9.6 mg/dL Normal 8.5-10.1 [facility] Comment on above: Performed By: #### C BC #### [facility] [address] [place] [address] Dr. [place] Snowden Chloride [Moles/Vol] 107 mmol/L Normal 98-107 [facility] Comment on above: Performed By: #### C BC #### [facility] [address] [place] [address] Dr. [place] Snowden CO2 [Moles/Vol] 29.0 mmol/L Normal 21.0-32.0 [facility] Comment on above: Performed By: #### C BC #### [facility] [address] [place] [address] Dr. [place] Snowden Creatinine [Mass/Vol] 0.76 mg/dL Normal 0.70-1.30 [facility] Comment on above: Performed By: #### C BC #### [facility] [address] [place] [address] Dr. [place] Snowden EGFR-AF SOMALI >60 Normal >=60 [facility] Comment on above: Performed By: #### C BC #### [facility] [address] [address] [address] [place] Snowden EGFR-NON AF SOMALI >60 Normal >=60 [facility] Comment on above: Performed By: #### C BC #### [facility] [address] [address] [address] [place] Snowden Glucose [Mass/Vol] 127 mg/dL Critically high 74-106 [facility] Comment on above: Performed By: #### C BC #### [facility] [address] [address] [address] [place] Snowden Potassium [Moles/Vol] 3.7 mmol/L Normal 3.5-5.1 [facility] Comment on above: Performed By: #### C BC #### [facility] [address] [address] [address] [place] Snowden Sodium [Moles/Vol] 145 mmol/L Normal 136-145 [facility] Comment on above: Performed By: #### C BC #### [facility] [address] [address] [address] [place] Snowden Urea nitrogen [Mass/Vol] 21.0 mg/dL Critically high 7.0-18.0 [facility] Comment on above: Performed By: #### C BC #### [facility] [address] [address] [address] [place] Snowden Urea nitrogen/Creatinine [Mass ratio] 27.6 mg/mg Normal [facility] Comment on above: Performed By: #### C BC #### [facility] [address] [address] [address] [place] Snowden PROTIMEon 01-08-2023 INR Coag (PPP) [Relative time] 1.04 {INR} Normal [facility] Comment on above: Performed By: #### P T, PTT #### [facility] [address] [address] [address] [place] Snowden INR GUIDELINES SEE BELOW Normal [facility] Comment on above: Result Comment: ASHTYN RED INR: 2.0 - 3.0 CONDITIONS NOT LISTED BELOW 2.5 - 3.5 FOR PROSTHETIC HEART VALVE REPLACEMENT 2.5 - 3.5 RECURRENT THROMBOSIS Performed By: #### P T, PTT #### [facility] [address] [place] [address] Dr. [place] Snowden PT Coag (PPP) [Time] 11.0 s Normal 9.0-11.6 [facility] Comment on above: Performed By: #### P T, PTT #### [facility] [address] [place] [address] Dr. [place] Snowden PTTon 01-08-2023 aPTT Coag (Bld) [Time] 29.6 s Normal 22.3-36.2 [facility] Comment on above: Performed By: #### P T, PTT #### [facility] [address] [place] [address] Dr. [place] Snowden XR KUB 1 VIEWon [...] by: TALI ISRAEL Date: 2023-01-01 16:46 Normal [facility] GLYCOHEMOGLOBIN A1Con 2022 ADA RECOMMENDATION SEE BELOW Normal [facility] Comment on above: Result Comment: ADA RECOMMENDED LIMIT 4.0 - 6.0 ADA THERAPEUTIC TARGET < 7.0 ACTION SUGGESTED > 7.0 Performed By: #### A 1C #### [facility] [address] [place] [address] Dr. [place] Snowden Glucose [Mass/Vol] 126 mg/dL Normal [facility] Comment on above: Performed By: #### A 1C #### [facility] [address] [place] [address] Dr. [place] Snowden HbA1c (Bld) [Mass fraction] 6.0 % Normal 4.5-6.2 [facility] Comment on above: Performed By: #### A 1C #### [facility] [address] [place] [address] Dr. [place] Snowden XR KUB 1 VIEWon [...] pattern Stable left nephrolithiasis Electronically authenticated by: ATLI ISRAEL Date: 2022-09-09 15:01 Normal [facility] GLYCOHEMOGLOBIN A1Con 2021 ADA RECOMMENDATION SEE BELOW Normal [facility] Comment on above: Result Comment: ADA RECOMMENDED LIMIT 4.0 - 6.0 ADA THERAPEUTIC TARGET < 7.0 ACTION SUGGESTED > 7.0 Performed By: #### A 1C #### [facility] [address] [place] [address] Dr. Cleveland Snowden Glucose [Mass/Vol] 131 mg/dL Normal [facility] Comment on above: Performed By: #### A 1C #### [facility] [address] [place] [address] Dr. Cleveland Snowden HbA1c (Bld) [Mass fraction] 6.2 % Normal 4.5-6.2 [facility] Comment on above: Performed By: #### A 1C #### [facility] [address] [place] [address] Dr. Cleveland Snowden LIPID PROFILEon 08-06-2022 CHOL-HDL RATIO NORM SEE BELOW Normal [facility] Comment on above: Result Comment: 3.3 - 4.4 LOW RISK 4.4 - 7.1 AVERAGE RISK 7.1 - 11.0 MODERATE RISK >11.0 HIGH RISK Performed By: #### A 1C #### [facility] [address] [place] [address] Dr. Cleveland Snowden Cholesterol [Mass/Vol] 108 mg/dL Normal <=200 [facility] Comment on above: Performed By: #### A 1C #### [facility] [address] [address] [address] Cleveland Snowden Cholesterol in HDL [Mass/Vol] 36 mg/dL Critically low 40-60 [facility] Comment on above: Performed By: #### A 1C #### [facility] [address] [address] [address] Cleveland Snowden Cholesterol in LDL [Mass/Vol] 45.0 mg/dL Normal [facility] Comment on above: Performed By: #### A 1C #### [facility] [address] [address] [address] Cleveland Snowden Cholesterol.total/Nayeli sterol in HDL [Mass ratio] 3.0 {ratio} Normal [facility] Comment on above: Performed By: #### A 1C #### [facility] [address] [address] [address] Cleveland Snowden HDL NORMAL > or = 60 mg/dl - LO W CARDIOVASCULAR RISK <40 mg/dl - HIGH CARDIOVASCULAR RISK Normal [facility] Comment on above: Performed By: #### A 1C #### [facility] [address] [address] [address] Cleveland Snowden LDL CALC NORMAL SEE BELOW Normal [facility] Comment on above: Result Comment: <100 mg/dl OPTIMAL 100 - 129 mg/dl NEAR OR ABOVE OPTIMAL 130 - 159 mg/dl BORDERLINE HIGH 160 - 189 mg/dl HIGH >190 mg/dl VERY HIGH Performed By: #### A 1C #### [facility] [address] [address] [address] Cleveland Snowden Triglyceride [Mass/Vol] 135 mg/dL Normal <=150 T [facility] Comment on above: Performed By: #### A 1C #### [facility] [address] [address] [address] Cleveland Snowden VLDL CALC 27.0 mg/dL Normal [facility] Comment on above: Performed By: #### A 1C #### [facility] [address] [place] [address] Dr. Cleveland Snowden GLYCOHEMOGLOBIN A1Con 2021 ADA RECOMMENDATION SEE BELOW Normal [facility] Comment on above: Result Comment: ADA RECOMMENDED LIMIT 4.0 - 6.0 ADA THERAPEUTIC TARGET < 7.0 ACTION SUGGESTED > 7.0 Performed By: #### A 1C #### [facility] [address] [place] [address] Dr. Cleveland Snowden Glucose [Mass/Vol] 154 mg/dL Normal [facility] Comment on above: Performed By: #### A 1C #### [facility] [address] [place] [address] Dr. Cleveland Snowden HbA1c (Bld) [Mass fraction] 7.0 % Critically high 4.5-6.2 [facility] Comment on above: Performed By: #### A 1C #### [facility] [address] [place] [address] Dr. Cleveland Snowden LIPID PROFILEon 05-05-2022 CHOL-HDL RATIO NORM SEE BELOW Normal [facility] Comment on above: Result Comment: 3.3 - 4.4 LOW RISK 4.4 - 7.1 AVERAGE RISK 7.1 - 11.0 MODERATE RISK >11.0 HIGH RISK Performed By: #### P T, PTT #### [facility] [address] [place] [address] Dr. Cleveland Snowden Cholesterol [Mass/Vol] 104 mg/dL Normal <=200 [facility] Comment on above: Performed By: #### P T, PTT #### [facility] [address] [place] [address] Dr. Cleveland Snowden Cholesterol in HDL [Mass/Vol] 24 mg/dL Critically low 40-60 [facility] Comment on above: Performed By: #### P T, PTT #### [facility] [address] [place] [address] Dr. Cleveland Snowden Cholesterol in LDL [Mass/Vol] 28.0 mg/dL Normal [facility] Comment on above: Performed By: #### P T, PTT #### [facility] [address] [place] [address] Dr. Cleveland Snowden Cholesterol.total/Nayeli sterol in HDL [Mass ratio] 4.3 {ratio} Normal [facility] Comment on above: Performed By: #### P T, PTT #### [facility] [address] [address] [address] Cleveland Snowden HDL NORMAL > or = 60 mg/dl - LO W CARDIOVASCULAR RISK <40 mg/dl - HIGH CARDIOVASCULAR RISK Normal [facility] Comment on above: Performed By: #### P T, PTT #### [facility] [address] [address] [address] Cleveland Snowden LDL CALC NORMAL SEE BELOW Normal [facility] Comment on above: Result Comment: <100 mg/dl OPTIMAL 100 - 129 mg/dl NEAR OR ABOVE OPTIMAL 130 - 159 mg/dl BORDERLINE HIGH 160 - 189 mg/dl HIGH >190 mg/dl VERY HIGH Performed By: #### P T, PTT #### [facility] [address] [address] [address] Cleveland Snowden Triglyceride [Mass/Vol] 260 mg/dL Critically high <=150 [facility] Comment on above: Performed By: #### P T, PTT #### [facility] [address] [address] [address] Cleveland Snowden VLDL CALC 52.0 mg/dL Normal [facility] Comment on above: Performed By: #### P T, PTT #### [facility] [address] [address] [address] Cleveland Snowden PROF 14(COMP METB)on 022 Albumin [Mass/Vol] 3.5 g/dL Normal 3.4-5.0 [facility] Comment on above: Performed By: #### P T, PTT #### [facility] [address] [address] [address] Cleveland Snowden Albumin/Globulin [Mass ratio] 1.1 {ratio} Normal [facility] Comment on above: Performed By: #### P T, PTT #### [facility] [address] [address] [address] Cleveland Snowden ALP [Catalytic activity/Vol] 59 U/L Normal 46-116 [facility] Comment on above: Performed By: #### P T, PTT #### [facility] [address] [address] [address] Cleveland Snowden ALT [Catalytic activity/Vol] 46 U/L Normal 16-63 [facility] Comment on above: Performed By: #### P T, PTT #### [facility] [address] [address] [address] Cleveland Snowden Anion gap [Moles/Vol] 14.7 mmol/L Normal [facility] Comment on above: Performed By: #### P T, PTT #### [facility] [address] [address] [address] Cleveland Snowden AST [Catalytic activity/Vol] 46 U/L Critically high 15-37 [facility] Comment on above: Performed By: #### P T, PTT #### [facility] [address] [address] [address] Cleveland Snowden Bilirubin [Mass/Vol] 0.5 mg/dL Normal 0.2-1.0 [facility] Comment on above: Performed By: #### P T, PTT #### [facility] [address] [address] [address] Cleveland Snowden Calcium [Mass/Vol] 9.5 mg/dL Normal 8.5-10.1 [facility] Comment on above: Performed By: #### P T, PTT #### [facility] [address] [address] [address] Cleveland Snowden Chloride [Moles/Vol] 103 mmol/L Normal 98-107 [facility] Comment on above: Performed By: #### P T, PTT #### [facility] [address] [address] [address] Cleveland Snowden CO2 [Moles/Vol] 28.1 mmol/L Normal 21.0-32.0 [facility] Comment on above: Performed By: #### P T, PTT #### [facility] [address] [address] [address] Cleveland Snowden Creatinine [Mass/Vol] 0.84 mg/dL Normal 0.70-1.30 [facility] Comment on above: Performed By: #### P T, PTT #### [facility] [address] [address] [address] Cleveland Snowden EGFR-AF SOMALI >60 Normal >=60 [facility] Comment on above: Performed By: #### P T, PTT #### [facility] [address] [address] [address] Cleveland Snowden EGFR-NON AF SOMALI >60 Normal >=60 [facility] Comment on above: Performed By: #### P T, PTT #### [facility] [address] [address] [address] Cleveland Snowden Globulin (S) [Mass/Vol] 3.1 g/dL Normal [facility] Comment on above: Performed By: #### P T, PTT #### [facility] [address] [address] [address] Cleveland Snowden Glucose [Mass/Vol] 176 mg/dL Critically high 74-106 [facility] Comment on above: Performed By: #### P T, PTT #### [facility] [address] [address] [address] Cleveland Snowden Potassium [Moles/Vol] 3.8 mmol/L Normal 3.5-5.1 [facility] Comment on above: Performed By: #### P T, PTT #### [facility] [address] [address] [address] Cleveland Snowden Protein [Mass/Vol] 6.6 g/dL Normal 6.4-8.2 [facility] Comment on above: Performed By: #### P T, PTT #### [facility] [address] [address] [address] Cleveland Snowden Sodium [Moles/Vol] 142 mmol/L Normal 136-145 [facility] Comment on above: Performed By: #### P T, PTT #### [facility] [address] [address] [address] Cleveland Snowden Urea nitrogen [Mass/Vol] 24.0 mg/dL Critically high 7.0-18.0 [facility] Comment on above: Performed By: #### P T, PTT #### [facility] [address] [address] [address] Cleveland Snowden Urea nitrogen/Creatinine [Mass ratio] 28.6 mg/mg Normal [facility] Comment on above: Performed By: #### P T, PTT #### [facility] [address] [address] [address] Cleveland Snowden URIC ACID SERUMon 05-05-2022 Urate [Mass/Vol] 6.2 mg/dL Normal 3.5-7.2 [facility] Comment on above: Performed By: #### P T, PTT #### [facility] [address] [address] [address] Cleveland Snowden Basophils Auto (Bld) [#/Vol] on 04-03-2021 Basophils (Bld) [#/Vol] 0.0 10*3/uL 0.0-0.2 [facility] Basophils/100 WBC Auto (Bld) on 04-03-2021 Basophils/100 WBC (Bld) 0.6 % F [facility] Blood hemoglobin measurement (mass/volume)on 04-03-2021 Hemoglobin (Bld) [Mass/Vol] 12.2 g/dL 13.0-17.0 [facility] Blood leukocytes automated c ount (number/volume)on 04-03-2021 WBC (Bld) [#/Vol] 4.7 10*3/uL 4.5-11.0 [facility] Creatinine and Glomerular fi ltration rate.predicted panel (S/P/Bld)on 04-03-2021 Creatinine [Mass/Vol] 0.68 mg/dL 0.64-1.27 [facility] Eosinophils Auto (Bld) [#/Vo l]on 04-03-2021 Eosinophils (Bld) [#/Vol] 0.1 10*3/uL 0.0-0.45 [facility] Eosinophils/100 WBC Auto (Bl d)on 04-03-2021 Eosinophils/100 WBC (Bld) 3.1 % [facility] Erythrocyte distribution wid th Auto (RBC) [Ratio]on 04-03-2021 Erythrocyte distribution width (RBC) [Ratio] 15.0 % 12.0-14.8 [facility] Estimated glomerular filtrat ion rate (GFR) non- Americanon 04-03-2021 GFR/1.73 sq M.predicted among non-blacks MDRD (S/P/Bld) [Vol rate/Area] > 60 mL/Min [facility] Hematocrit Auto (Bld) [Volum e fraction]on 04-03-2021 Hematocrit (Bld) [Volume fraction] 36.2 % 38.8-50.0 [facility] - Hematology and Cell countson 04-03-2021 Nucleated RBC/100 WBC (Bld) [Ratio] 0.2 % 0-0.5 [facility] Lymphocytes Auto (Bld) [#/Vo l]on 04-03-2021 Lymphocytes (Bld) [#/Vol] 0.7 10*3/uL 1.00-4.8 [facility] Lymphocytes/100 WBC Auto (Bl d)on 04-03-2021 Lymphocytes/100 WBC (Bld) 14.5 % [facility] MCH Auto (RBC) [Entitic mass ]on 04-03-2021 MCH (RBC) [Entitic mass] 31.3 pg 27.5-35.2 [facility] MCHC Auto (RBC) [Mass/Vol]on 04-03-2021 MCHC (RBC) [Mass/Vol] 33.8 g/dL 32.5-35.6 [facility] MCV Auto (RBC) [Entitic vol] on 04-03-2021 MCV (RBC) [Entitic vol] 92.6 fL 83.5-101 F [facility] Monocytes Auto (Bld) [#/Vol] on 04-03-2021 Monocytes (Bld) [#/Vol] 0.5 10*3/uL 0.0-0.8 [facility] Monocytes/100 WBC Auto (Bld) on 04-03-2021 Monocytes/100 WBC (Bld) 10.7 % [facility] Neutrophils Auto (Bld) [#/Vo l]on 04-03-2021 Neutrophils (Bld) [#/Vol] 3.3 10*3/uL 1.8-7.7 [facility] Neutrophils/100 WBC Auto (Bl d)on 04-03-2021 Neutrophils/100 WBC (Bld) 71.1 % [facility] No Panel Informationon 04-03 Estimated GFR () > 60 mL/Min [facility] Comment on above: GFR estimated refere nce range: According to KDOQI guidelines, <60 ml/min/1.73m2 is sufficient to diagnose a patient with chronic kidney disease. Pharmacy Creatinine Clearance (Chem N/A [facility] Platelet mean volume Auto (B ld) [Entitic vol]on 04-03-2021 Platelet mean volume (Bld) [Entitic vol] 8.5 fL 6.6-10.1 [facility] Platelets Auto (Bld) [#/Vol] on 04-03-2021 Platelets (Bld) [#/Vol] 137 10*3/uL 150-450 [facility] RBC Auto (Bld) [#/Vol]on RBC (Bld) [#/Vol] 3.91 10*6/uL 3.90-5.60 [facility] Serum or plasma calcium edu urement (mass/volume)on 04-03-2021 Calcium [Mass/Vol] 9.8 mg/dL 8.2-10.2 [facility] Serum or plasma chloride merlyn surement (moles/volume)on 04-03-2021 Chloride [Moles/Vol] 100 mmol/L 95-114 [facility] Serum or plasma glucose edu urement (mass/volume)on 04-03-2021 Glucose [Mass/Vol] 184 mg/dL 70-100 [facility] Comment on above: ADA recommended refe rence rangeRandom Glucose Reference Range is dependent on time and content of last meal. Glucose of more than 200 mg/dL in a nonstressed, ambulatory subject supports the diagnosis of Diabetes Mellitus. Serum or plasma potassium me asurement (moles/volume)on 04-03-2021 Potassium [Moles/Vol] 3.6 mmol/L 3.5-5.1 [facility] Serum or plasma sodium measu rement (moles/volume)on 04-03-2021 Sodium [Moles/Vol] 138 mmol/L 136-146 [facility] Serum or plasma total carbon dioxide measurement (moles/volume)on 04-03-2021 CO2 [Moles/Vol] 26.3 mmol/L 22.0-30.0 [facility] Serum or plasma urea nitroge n measurement (mass/volume)on 04-03-2021 Urea nitrogen [Mass/Vol] 17 mg/dL 9-23 [facility] Basophils Auto (Bld) [#/Vol] on 02-11-2021 Basophils (Bld) [#/Vol] 0.0 10*3/uL 0.0-0.2 [facility] Basophils/100 WBC Auto (Bld) on 02-11-2021 Basophils/100 WBC (Bld) 0.6 % F [facility] Blood hemoglobin measurement (mass/volume)on 02-11-2021 Hemoglobin (Bld) [Mass/Vol] 12.6 g/dL 13.0-17.0 [facility] Blood leukocytes automated c ount (number/volume)on 02-11-2021 WBC (Bld) [#/Vol] 4.4 10*3/uL 4.5-11.0 [facility] Eosinophils Auto (Bld) [#/Vo l]on 02-11-2021 Eosinophils (Bld) [#/Vol] 0.2 10*3/uL 0.0-0.45 [facility] Eosinophils/100 WBC Auto (Bl d)on 02-11-2021 Eosinophils/100 WBC (Bld) 3.8 % [facility] Erythrocyte distribution wid th Auto (RBC) [Ratio]on 02-11-2021 Erythrocyte distribution width (RBC) [Ratio] 14.9 % 12.0-14.8 [facility] Hematocrit Auto (Bld) [Volum e fraction]on 02-11-2021 Hematocrit (Bld) [Volume fraction] 36.1 % 38.8-50.0 [facility] - Hematology and Cell countson 02-11-2021 Nucleated RBC/100 WBC (Bld) [Ratio] 0.1 % 0-0.5 [facility] Lymphocytes Auto (Bld) [#/Vo l]on 02-11-2021 Lymphocytes (Bld) [#/Vol] 0.7 10*3/uL 1.00-4.8 [facility] Lymphocytes/100 WBC Auto (Bl d)on 02-11-2021 Lymphocytes/100 WBC (Bld) 15.4 % [facility] MCH Auto (RBC) [Entitic mass ]on 02-11-2021 MCH (RBC) [Entitic mass] 32.5 pg 27.5-35.2 [facility] MCHC Auto (RBC) [Mass/Vol]on 02-11-2021 MCHC (RBC) [Mass/Vol] 34.8 g/dL 32.5-35.6 [facility] MCV Auto (RBC) [Entitic vol] on 02-11-2021 MCV (RBC) [Entitic vol] 93.3 fL 83.5-101 [facility] Monocytes Auto (Bld) [#/Vol] on 02-11-2021 Monocytes (Bld) [#/Vol] 0.5 10*3/uL 0.0-0.8 [facility] Monocytes/100 WBC Auto (Bld) on 02-11-2021 Monocytes/100 WBC (Bld) 12.1 % [facility] Neutrophils Auto (Bld) [#/Vo l]on 02-11-2021 Neutrophils (Bld) [#/Vol] 3.0 10*3/uL 1.8-7.7 [facility] Neutrophils/100 WBC Auto (Bl d)on 02-11-2021 Neutrophils/100 WBC (Bld) 68.1 % [facility] Platelet mean volume Auto (B ld) [Entitic vol]on 02-11-2021 Platelet mean volume (Bld) [Entitic vol] 8.2 fL 6.6-10.1 [facility] Platelets Auto (Bld) [#/Vol] on 02-11-2021 Platelets (Bld) [#/Vol] 118 10*3/uL 150-450 [facility] RBC Auto (Bld) [#/Vol]on RBC (Bld) [#/Vol] 3.87 10*6/uL 3.90-5.60 [facility] Creatinine (Bld) [Mass/Vol]o n 01-10-2021 Creatinine [Mass/Vol] 0.7 mg/dL 0.6-1.3 [facility] Comment on above: ER/ESD physician is notified/shown all ISTAT results.Critical values may be confirmed by laboratory testing ifdeemed necessary by ER attending doctor. No Panel Informationon 01-10 POC Estimated GFR > 60 [facility] Comment on above: GFR estimated refere nce range: According to KDOQI guidelines, <60 ml/min/1.73m2 is sufficient to diagnose a patient with chronic kidney disease. POC Estimated GFR Non- Amer > 60 [facility] Vital Signs Date Time Vital Sign Value Performing Clinician Facility 07-19-2025 16:14-0400 Body height 185.4 cm Khoa Bowles MD Work Phone: [facility] 07-19-2025 16:14-0400 Body mass index (BMI) [Ratio] 37.07 kg/m2 Khoa Bowles MD Work Phone: [facility] 07-19-2025 16:14-0400 Body weight 127.46 kg Khoa Bowles MD Work Phone: [facility] 07-19-2025 16:14-0400 Heart rate 75 /min Khoa Bowles MD Work Phone: [facility] 07-19-2025 16:14-0400 SaO2% (BldA) [Mass fraction] 95 % Khoa Bowles MD Work Phone: [facility] 07-13-2025 16:39-0400 Diastolic blood pressure 67 mm[Hg] Khoa Bowles MD Work Phone: [facility] 07-13-2025 16:39-0400 Heart rate 56 /min Khoa Bowles MD Work Phone: [facility] 07-13-2025 16:39-0400 Respiratory rate 18 /min Khoa Bowles MD Work Phone: [facility] 07-13-2025 16:39-0400 SaO2% (BldA) [Mass fraction] 97 % hKoa Bowles MD Work Phone: [facility] 07-13-2025 16:39-0400 Systolic blood pressure 120 mm[Hg] Khoa Bowles MD Work Phone: [facility] 07-13-2025 14:38-0400 Body temperature 98.1 [degF] Khoa Bowles MD Work Phone: [facility] 07-13-2025 14:30-0400 Body height 185.42 cm Khoa Bowles MD Work Phone: [facility] 07-13-2025 14:30-0400 Body weight 129.8 kg Khoa Bowles MD Work Phone: [facility] 07-12-2025 12:54-0400 Body height 185.4 cm Tiffanie Enrique DPM Work Phone: [facility] 07-12-2025 12:54-0400 Body mass index (BMI) [Ratio] 37.07 kg/m2 Tiffanie Enrique DPM Work Phone: [facility] 07-12-2025 12:54-0400 Body weight 127.46 kg Tiffanie Enrique DPM Work Phone: [facility] 05-07-2025 11:04-0400 Body height 185.4 cm Khoa Bowles MD Work Phone: [facility] 05-07-2025 11:04-0400 Body mass index (BMI) [Ratio] 37.07 kg/m2 Khoa Bowles MD Work Phone: [facility] 05-07-2025 11:04-0400 Body weight 127.46 kg Khoa Bowles MD Work Phone: [facility] 05-07-2025 11:04-0400 Diastolic blood pressure 68 mm[Hg] Khoa Bowles MD Work Phone: [facility] 05-07-2025 11:04-0400 Heart rate 71 /min Khoa Bowles MD Work Phone: [facility] 05-07-2025 11:04-0400 SaO2% (BldA) [Mass fraction] 96 % Khoa Bowles MD Work Phone: [facility] 05-07-2025 11:04-0400 Systolic blood pressure 120 mm[Hg] Khoa Bowles MD Work Phone: [facility] 04-26-2025 14:48-0400 Body height 185.4 cm Khoa Bowles MD Work Phone: [facility] 04-26-2025 14:48-0400 Body mass index (BMI) [Ratio] 37.07 kg/m2 Khoa Bowles MD Work Phone: [facility] 04-26-2025 14:48-0400 Body weight 127.46 kg Khoa Bowles MD Work Phone: [facility] 04-26-2025 14:48-0400 Diastolic blood pressure 70 mm[Hg] Khoa Bowles MD Work Phone: [facility] 04-26-2025 14:48-0400 Heart rate 68 /min Khoa Bowles MD Work Phone: [facility] 04-26-2025 14:48-0400 SaO2% (BldA) [Mass fraction] 97 % Khoa Bowles MD Work Phone: [facility] 04-26-2025 14:48-0400 Systolic blood pressure 124 mm[Hg] Khoa Bowles MD Work Phone: [facility] 04-05-2025 13:00-0400 Body height 185.4 cm Tiffanie Enrique DPM Work Phone: [facility] 04-05-2025 13:00-0400 Body mass index (BMI) [Ratio] 37.07 kg/m2 Tiffanie Enrique DPM Work Phone: [facility] 04-05-2025 13:00-0400 Body weight 127.46 kg Tiffanie Haja DPM Work Phone: [facility] 02-20-2025 07:40-0400 Body height 185.4 cm Khoa Bowles MD Work Phone: [facility] 02-20-2025 07:40-0400 Body mass index (BMI) [Ratio] 37.07 kg/m2 Khoa Bowles MD Work Phone: [facility] 02-20-2025 07:40-0400 Body weight 127.46 kg Khoa Bowles MD Work Phone: [facility] 12-28-2024 13:48-0500 Body height 185.4 cm Tiffanie Enrique DPM Work Phone: [facility] 12-28-2024 13:48-0500 Body mass index (BMI) [Ratio] 37.07 kg/m2 Tiffanie Enrique DPM Work Phone: [facility] 12-28-2024 13:48-0500 Body weight 127.46 kg Tiffanie Haja DPM Work Phone: [facility] 12-18-2024 10:47-0500 Blood Pressure Location [place] [facility] 12-18-2024 10:47-0500 Body temperature 98.6 [degF] [place] [facility] 12-18-2024 10:47-0500 Diastolic blood pressure 71 mm[Hg] [place] [facility] 12-18-2024 10:47-0500 Heart rate 62 /min [place] [facility] 12-18-2024 10:47-0500 Respiratory rate 16 /min [place] [facility] 12-18-2024 10:47-0500 Systolic blood pressure 124 mm[Hg] [place] [facility] 09-14-2024 14:55-0500 Body height 185.4 cm Tiffanie Haja DPM Work Phone: [facility] 09-14-2024 14:55-0500 Body mass index (BMI) [Ratio] 37.07 kg/m2 Tiffanie Enrique DPM Work Phone: [facility] 09-14-2024 14:55-0500 Body weight 127.46 kg Tiffanie Enrique DPM Work Phone: [facility] 09-04-2024 13:06-0500 Blood Pressure Location [place] [facility] 09-04-2024 13:06-0500 Diastolic blood pressure 71 mm[Hg] [place] [facility] 09-04-2024 13:06-0500 Heart rate 58 /min [place] [facility] 09-04-2024 13:06-0500 Respiratory rate 18 /min [place] [facility] 09-04-2024 13:06-0500 Systolic blood pressure 130 mm[Hg] [place] [facility] 08-08-2024 12:34-0400 Body height 185.4 cm Yaquelin MULLINS Work Phone: [facility] 08-08-2024 12:34-0400 Body mass index (BMI) [Ratio] 37.07 kg/m2 Yaquelin MULLINS Work Phone: [facility] 08-08-2024 12:34-0400 Body weight 127.46 kg Yaquelin Hampton PA Work Phone: [facility] 08-08-2024 12:34-0400 Diastolic blood pressure 84 mm[Hg] Yaquelin Hampton PA Work Phone: [facility] 08-08-2024 12:34-0400 Heart rate 52 /min Yaquelin Hampton PA Work Phone: [facility] 08-08-2024 12:34-0400 Respiratory rate 16 /min Yaquelin Hampton PA Work Phone: [facility] 08-08-2024 12:34-0400 SaO2% (BldA) [Mass fraction] 99 % Yaquelin Hampton PA Work Phone: [facility] 08-08-2024 12:34-0400 Systolic blood pressure 130 mm[Hg] Yaquelin Hampton PA Work Phone: [facility] 07-26-2024 15:43-0400 Body height 185.4 cm Yumiko Wellsr TERRITORY MANAGER Work Phone: [facility] 07-26-2024 15:43-0400 Body mass index (BMI) [Ratio] 37.34 kg/m2 Yumiko Lyricmor TERRITORY MANAGER Work Phone: [facility] 07-26-2024 15:43-0400 Body weight 128.37 kg Yumiko Lyricmor TERRITORY MANAGER Work Phone: [facility] [facility] 07-26-2024 15:43-0400 Diastolic blood pressure 80 mm[Hg] Yumiko Gillmor TERRITORY MANAGER Work Phone: [facility] 07-26-2024 15:43-0400 Heart rate 69 /min Yumiko Lyricmor TERRITORY MANAGER Work Phone: [facility] 07-26-2024 15:43-0400 SaO2% (BldA) [Mass fraction] 97 % Yumiko Lyricmor TERRITORY MANAGER Work Phone: [facility] 07-26-2024 15:43-0400 Systolic blood pressure 132 mm[Hg] Yumiko Lyricmor TERRITORY MANAGER Work Phone: [facility] 12-09-2023 11:01-0500 Body height 190.5 cm Tiffanie Enrique DPM Work Phone: [facility] 12-09-2023 11:01-0500 Body mass index (BMI) [Ratio] 36.87 kg/m2 Tiffanie Enrique DPM Work Phone: [facility] 12-09-2023 11:01-0500 Body weight 133.81 kg Tiffanie Enrique DPM Work Phone: [facility] 07-21-2023 13:32-0400 Blood Pressure Location [place] [facility] 07-21-2023 13:32-0400 Diastolic blood pressure 64 mm[Hg] [place] [facility] 07-21-2023 13:32-0400 Heart rate 54 /min [place] [facility] 07-21-2023 13:32-0400 Systolic blood pressure 117 mm[Hg] [place] [facility] 01-05-2023 10:47-0500 Blood Pressure Location [place] [facility] 01-05-2023 10:47-0500 Diastolic blood pressure 93 mm[Hg] [place] [facility] 01-05-2023 10:47-0500 Heart rate 58 /min [place] [facility] 01-05-2023 10:47-0500 Systolic blood pressure 152 mm[Hg] [place] [facility] Encounters Encounter Date Encounter Type Care Provider Facility Start: 07-19-2025 End: 07-19-2025 Office outpatient visit 25 minutes Khoa Bowles MD Work Phone: [address] Comment on above: Syncope, unspecified syncope type (Primary Dx); Right bundle branch block; Vertigo; Encounter for examination following treatment at hospital; Morbid obesity due to excess calories ([facility]); Lymphedema of both lower extremities Start: 07-19-2025 End: 07-19-2025 ambulatory KHOA BOWLES Not Available Start: 07-19-2025 End: 07-19-2025 Bamboo flowsheet Khoa Bowles MD Work Phone: [address] Start: 07-19-2025 End: 07-19-2025 Bamboo flowsheet Khoa Bowles MD Work Phone: [address] Start: 07-13-2025 End: 07-13-2025 Emergency department patient visit Khoa Bowles MD Work Phone: -Emergency Room Work Phone: Start: 07-12-2025 End: 07-12-2025 Bamboo flowsheet Tiffanie Enrique DPM Work Phone: [facility] Start: 07-12-2025 End: 07-12-2025 Bamboo flowsheet Tiffanie Enrique DPM Work Phone: [facility] Start: 07-12-2025 End: 07-12-2025 Patient encounter procedure Tiffanie Enrique DPM Work Phone: [facility] Comment on above: Onychomycosis (Prima ry Dx); Type II or unspecified type diabetes mellitus with neurological manifestations, not 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) ([facility]); Acquired keratoderma Start: 07-12-2025 End: 07-12-2025 ambulatory TIFFANIE ENRIQUE Not Available Start: 07-06-2025 End: 07-06-2025 ambulatory [facility] Start: 06-30-2025 End: 06-30-2025 Orders Only Khoa Bowles MD Work Phone: [facility] Start: 06-28-2025 End: 06-28-2025 ambulatory KAROLINE MONTES [facility] Start: 06-27-2025 End: 06-27-2025 ambulatory [facility] Start: 06-11-2025 ambulatory [place] WOOD Facili ty:[facility] Start: 06-11-2025 End: 06-11-2025 Patient encounter procedure [place] [facility] [facility] Start: 05-22-2025 End: 05-22-2025 ambulatory Khoa Bowles MD Work Phone: [facility] Work Phone: Start: 05-22-2025 End: 05-22-2025 Departed Referred [place] MD -[facility] Start: 05-22-2025 End: 05-22-2025 ambulatory [place] WOOD Facility:[id number] Start: 05-07-2025 End: 05-07-2025 Bamboo flowsheet [...] 25 minutes Khoa Bowles MD Work Phone: [facility] 100 Comment on above: Primary hypertension ; Mixed hyperlipidemia ; Hyperuricemia; Microalbuminuria; Type 2 diabetes mellitus with diabetic microalbuminuria, with long-term current use of insulin (HCC); Type 2 diabetes mellitus with diabetic polyneuropathy, with long-term current use of insulin (HCC); Diabetic neuropathic arthropathy (HCC); Lymphedema of both lower extremities; Chronic cellulitis; Polypharmacy; Morbid obesity due to excess calories ([facility]) Start: 04-26-2025 End: 04-26-2025 ambulatory KHOA BOWLES Not Available Start: 04-24-2025 End: 04-24-2025 Clinisync Result Encounter Khoa Bowles MD Work Phone: [facility] External Department Unsolicited Start: 04-24-2025 End: 04-24-2025 Clinisync Result Encounter Khoa Bowles MD Work Phone: [facility] External Department Unsolicited Start: 04-23-2025 End: 04-23-2025 Patient encounter procedure [place] MD -[facility] Work Phone: Start: 04-23-2025 End: 04-23-2025 ambulatory Khoa Bowles Facility:[facility] Start: 04-05-2025 End: 04-05-2025 Bamboo flowsheet Tiffanie Enrique DPWei Work Phone: [facility] Start: 04-05-2025 End: 04-05-2025 Bamboo flowsheet Tiffanie Enrique DPM Work Phone: [facility] Start: 04-05-2025 End: 04-05-2025 Patient encounter procedure Tiffanie DAMONM Work Phone: [facility] Comment on above: 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, not 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) (CMS/HCC) (Primary Dx); Onychomycosis; Acquired keratoderma; Callus Start: 04-05-2025 End: 04-05-2025 ambulatory TIFFANIE ENRIQUE Not Available Start: 04-02-2025 End: 04-02-2025 ambulatory [place] [facility]OD Facility[facility] Start: 04-02-2025 End: 04-02-2025 Patient encounter procedure [place] [facility] Start: 03-15-2025 End: 03-15-2025 Clinisync Result Encounter Generic External Data Provider [facility] External Department Unsolicited Start: 03-15-2025 End: 03-15-2025 Clinisync Result Encounter Generic External Data Provider [facility] External Department Unsolicited Start: 02-20-2025 End: 02-20-2025 Bamboo flowsheet Khoa [...] CI FM 100 Comment on above: 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 Start: 12-28-2024 End: 02-27-2025 Bamboo flowsheet Tiffanie Enrique DPM Work Phone: [facility] Start: 12-28-2024 End: 12-28-2024 Bamboo flowsheet Tiffanie Enrique DPM Work Phone: [facility] Start: 12-28-2024 End: 12-28-2024 Patient encounter procedure Tiffanie Enrique DPM Work Phone: [facility] Comment on above: 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, not 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) ([facility]) (Primary Dx); Onychomycosis; Acquired keratoderma Start: 12-28-2024 End: 12-28-2024 ambulatory TIFFANIE ENRIQUE Not Available Start: 12-18-2024 End: 12-18-2024 ambulatory [place] Facility[facility] Start: 12-18-2024 End: 12-18-2024 Patient encounter procedure [place] [facility] Start: 12-13-2024 End: 12-14-2024 Reftravis Bowles MD Work Phone: [facility] Comment on above: Type 2 diabetes nishant itus with hyperglycemia, without long-term current use of insulin ([facility]) Start: 11-11-2024 End: 11-14-2024 Refill Khoa Bowles MD Work Phone: [facility] Comment on above: Type 2 diabetes nishant itus with hyperglycemia, without long-term current use of insulin ([facility]) Start: 10-31-2024 End: 10-31-2024 Bamboo flowsheet Khoa [...] encounter procedure Tiffanie Enrique DPWei Work Phone: [facility] Comment on above: 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, not 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) (CMS/HCC) (Primary Dx); Onychomycosis; Acquired keratoderma Start: 09-14-2024 End: 09-14-2024 ambulatory TIFFANIE ENRIQUE Not Available Start: 09-14-2024 End: 09-14-2024 Bamboo flowsheet Tiffanie Enrique DPM Work Phone: [facility] Start: 09-14-2024 End: 09-14-2024 Bamboo flowsheet Tiffanie Enrique DPM Work Phone: [facility] Start: 09-04-2024 End: 09-04-2024 ambulatory [place] R NINA Facility[facility] Start: 09-04-2024 End: 09-04-2024 Patient encounter procedure [place] [facility] Start: 08-31-2024 End: 08-31-2024 Clinisync Result [...] Office outpatient visit 25 minutes Yumiko Guzmán TERRITORY MANAGER Work Phone: [facility] [address] Comment on above: Obstructive sleep ap rohith syndrome (Primary Dx); Snoring; Obesity (BMI 30-39.9); Hypersomnia Start: 07-26-2024 End: 07-26-2024 ambulatory YUMIKO GUZMÁN Not Available Start: 07-26-2024 End: 07-26-2024 Bamboo flowsheet Yumiko Guzmán TERRITORY MANAGER Work Phone: [facility] [address] Start: 07-26-2024 End: 07-26-2024 Bamboo flowsheet Yumiko Gunterreji TERRITORY MANAGER Work Phone: [facility] [address] Start: 07-26-2024 End: 07-26-2024 ambulatory [place] Facility: [facility] Start: 07-26-2024 End: 07-26-2024 Patient encounter procedure [place] [facility] Start: 07-24-2024 End: 07-24-2024 Telephone encounter Khoa Bowles MD Work Phone: [facility] Comment on above: Care Coordination Start: 12-09-2023 End: 12-09-2023 Patient encounter procedure Tiffanie Marciano Enrique DPM Work Phone: [facility] Comment on above: 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, not 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) (CMS/HCC) (Primary Dx); Onychomycosis; Hallux limitus, left; Acquired keratoderma Start: 08-05-2023 End: 08-05-2023 ambulatory MD Khoa Bowles Work Phone: [facility] Work Phone: Start: 08-05-2023 End: 08-05-2023 Patient encounter procedure MD Khoa Bowles Work Phone: [facility] [address] Work Phone: Start: 07-21-2023 End: 07-21-2023 Patient encounter procedure [place] [facility] Start: 07-16-[address] KHOA CASILLAS . Facility:[facility] Start: 02-04-2023 End: 02-05-[address] [place] . Facility:[facility] Start: 01-14-2023 End: 01-14-[address] [place] . Facility:[facility] Start: 01-12-2023 Encounter for other preprocedural examination DR [place] . [facility] Start: 01-12-2023 Encounter for prepro cedural cardiovascular examination DR [place] . [facility] Start: 01-12-2023 Encounter for prepro cedural laboratory examination DR [place] . [facility] Start: 01-08-2023 End: 01-09-[address] [place] . Facility:[facility] Start: 01-08-2023 End: 01-09-2023 Encounter for preprocedural laboratory examination DR [place] . Facility:[facility] Start: 01-05-2023 End: 01-05-2023 Patient encounter procedure [place] [facility] Start: 12-31-2022 End: 01-01-[address] KHOA BOWLES . Facility:[facility] Start: 11-02-[address] KHOA CASILLAS . Facility:[facility] Start: 09-21-2022 End: 09-21-2022 Patient encounter procedure [place] [facility] Start: 09-09-2022 End: 09-10-[address] [place] . Facility:[facility] Start: 08-06-2022 End: 08-07-[address] KHOA BOWLES . Facility:[facility] Start: 05-05-2022 End: 05-06-[address] KHOA BOWLES . Facility:[facility] Start: 04-03-2021 End: 04-03-2021 Patient encounter procedure Khoa Bowles Work Phone: -Pre-Surgical Testing Start: 02-11-2021 End: 02-11-2021 Patient encounter procedure Khoa Bowles Work Phone: -Lab [facility] [place] Start: 01-10-2021 End: 01-10-2021 Patient encounter procedure Khoa Bowles Work Phone: -[facility] [address] Procedures Date Procedure Procedure Detail Performing Clinician Start: 07-13-2025 CT angiography of head Khoa Bowles MD Work Phone: Start: 07-13-2025 CT angiography of ne ck vessels Khoa Bowles MD Work Phone: Start: 07-13-2025 CT of head without contrast Khoa Bowles MD Work Phone: Start: 04-24-2025 MLR HEMOGLOBIN A1C Franklyn Bowles MD Work Phone: Start: 04-24-2025 TB MICROALB CREAT R ATIO RANDOM Khoa Bowles MD Work Phone: Start: 04-23-2025 MR prostate wo/w con Andrés Bowles MD Work Phone: Start: 03-15-2025 MHPT PSA, DIAGNOSTIC [employer] External Data Provider Start: 10-26-2024 CC CMP (CMP) (FOR [facility] USE) Khoa Bowles MD Work Phone: Start: 08-31-2024 MHPT PSA, DIAGNOSTIC [employer] External Data Provider Start: 08-05-2023 XR pre/post mri xray MD Khoa Bowles Work Phone: Start: 08-05-2023 MR lumbar spine wo con MD Khoa Bowles Work Phone: Start: 01-14-2023 Extracorporeal shock wave lithotripsy of calculus of kidney [place] Start: 12-31-[address] FRED WOOD . Comment on above: Performed By: #### P T, PTT #### [facility] [address] [address] [address] Cleveland Snowden Start: 09-09-[address] FRED WOOD . Comment on above: Performed By: #### P SAD #### [facility] [address] [place] [address] Dr. Cleveland Snowden Start: 01-10-2021 MRI of lumbar spine with contrast Khoa Bowles Work Phone: Start: 01-10-2021 X-ray of lumbar spin e, four views Khoa Bowles Work Phone: Start: 06-17-2016 Colonoscopy Tiffanie ribeiro DPM Work Phone: Start: 04-30-2015 Cystoscopy [place] REESE Start: 02-21-2014 Removal of calculus of renal pelvis through percutaneous nephrostomy [place] Start: 01-23-2014 Removal of calculus of renal pelvis through percutaneous nephrostomy [place] Start: 12-27-2013 Cystoscopic extracti on of ureteric calculus without disintegration [place] Start: 11-23-2013 Cystoscopic extracti on of ureteric calculus without disintegration [place] Start: 10-26-2013 Cystoscopic insertio n of ureteric stent [place] Start: 07-01-2004 Cystoscopic removal of ureteric stent [place] Start: 06-24-2004 Cystoscopic extracti on of ureteric calculus without disintegration [place] Ankle region structu re (body structure) [place] Back structure, excl uding neck (body structure) [place] Capsulotomy of lens [place] Cataract (disorder) [place] Cellulitis (disorder) [place] WOOD Colonoscopy [place] W[place]O History of - varicos e veins (context-dependent category) [place] History of hernia repair [place] WOOD Rotator cuff includi ng muscles and tendons (body structure) [place] Plan of Treatment Date Care Activity Detail Author Start: 02-27-2027 Glaucoma screening Diabetes: R etinopathy Screening [facility] Start: 06-17-2026 Screening for malign ant neoplasm of colon [facility] Start: 05-07-2026 Medicare Annual Wellness (AWV) Medicare Annual Wellness (AWV) [facility] Start: 04-30-2026 Influenza vaccination Influenza Vacc ine (#1) [facility] Comment on above: Postponed from 07/02 (Patient Refused) Start: 04-24-2026 Urine screening for protein Diabetes: Urine Protein Screening [facility] Start: 02-24-2026 Glaucoma screening Diabetes: R etinopathy Screening [facility] Start: 10-24-2025 Hemoglobin A1c measurement Diabetes: Hemoglobin A1C [facility] Start: 10-22-2025 End: 10-22-2025 Patient encounter procedure [facility] Start: 10-11-2025 End: 10-11-2025 Patient encounter procedure 10/11/2025 10:45 AM EST Procedure Visit [facility] [address] [place] [id number] Tiffanie Enrique, DPM [address] [place], [place] [id number] [facility] Start: 09-26-2025 End: 04-26-2026 Comprehensive metabolic 2000 panel - Serum or Plasma Comprehensive metabolic panel Lab Routine Primary hypertension Type 2 diabetes mellitus with diabetic microalbuminuria, with long-term current use of insulin (HCC) Type 2 diabetes mellitus with diabetic polyneuropathy, with long-term current use of insulin (HCC) Diabetic neuropathic arthropathy (HCC) Expected: 09/26/2025 (Approximate), Expires: 04/26/2026 [facility] Work Phone: Comment on above: Expected: 09/26/2025 (Approximate), Expires: 04/26/2026 Start: 09-26-2025 End: 04-26-2026 Hemoglobin A1c/Hemoglobin.total in Blood Hemoglobin A1c Lab Routine Type 2 diabetes mellitus with diabetic microalbuminuria, with long-term current use of insulin (HCC) Type 2 diabetes mellitus with diabetic polyneuropathy, with long-term current use of insulin (HCC) Diabetic neuropathic arthropathy (HCC) Expected: 09/26/2025 (Approximate), Expires: 04/26/2026 [facility] Comment on above: Expected: 09/26/2025 (Approximate), Expires: 04/26/2026 Start: 09-26-2025 End: 04-26-2026 Lipid 1996 panel - Serum or Plasma Lipid panel Lab Routine Primary hypertension Mixed hyperlipidemia Expected: 09/26/2025 (Approximate), Expires: 04/26/2026 [facility] Comment on above: Expected: 09/26/2025 (Approximate), Expires: 04/26/2026 Start: 09-26-2025 End: 04-26-2026 Urate [Mass/volume] in Serum or Plasma Uric acid Lab Routine Hyperuricemia Expected: 09/26/2025 (Approximate), Expires: 04/26/2026 [facility] Comment on above: Expected: 09/26/2025 (Approximate), Expires: 04/26/2026 Start: 07-24-2025 End: 07-24-2025 Patient encounter procedure [facility] [address] Start: 07-19-2025 End: 07-19-2025 Patient encounter procedure 07/19/2025 4:30 PM EDT Office Visit [place] [address] [facility] [address] [place] [phone] Khoa Bowles MD [address] [place] [phone] Encounter for examination following treatment at hospital; Vertigo; Morbid obesity due to excess calories ([facility]) [address] Comment on above: Encounter for examin ation following treatment at hospital; Vertigo; Morbid obesity due to excess calories ([facility]) Start: 07-19-2025 End: 07-19-2026 Holter monitor study Holter monitor Imaging Routine Syncope, unspecified syncope type Right bundle branch block Expected: 07/19/2025 (Approximate), Expires: 07/19/2026 [facility] Work Phone: Comment on above: Expected: 07/19/2025 (Approximate), Expires: 07/19/2026 Start: 07-12-2025 End: 07-12-2025 Patient encounter procedure [facility] Comment on above: Arrived Start: 07-02-2025 Influenza vaccination Influenza Vacc ine (#1) [facility] Start: 05-22-2025 [facility] Start: 05-07-2025 End: 05-07-2025 Patient encounter procedure [facility] Comment on above: Encounter for Medica re annual wellness exam; Advance directive in chart; Encounter for screening for other disorder; Screening for alcohol problem Start: 04-26-2025 End: 04-26-2025 Patient encounter procedure 04/26/2025 3:00 PM EDT Office Visit [facility] [address] [place] [address] Khoa Bowles MD [address] [place] [address] (Fax) [facility] Start: 04-26-2025 [...] FM [address] [place] [address] Khoa Bowles MD [address] [place] [address] (Fax) Encounter for examination following treatment at [...] EST Procedure Visit [facility] [address] [place] [phone] Tiffanie Enrique, DPM [address] [place] [address] [facility] Start: 08-08-2024 End: 08-08-2024 Patient [...] procedure 03/09/2024 1:00 PM EDT Procedure Visit [facility] [address] [place] [address] Tiffanie Enrique, DPM [address] [place] [address] [facility] Start: 02-23-2024 Medicare Annual Wellness (AWV) Medicare Annual Wellness (AWV) [facility] Start: 02-03-2024 End: 02-03-2024 Patient encounter procedure 02/03/2024 11:30 AM EDT Office Visit [facility] [address] [place] [address] Khoa Bowles MD [address] [place] [place] [address] [facility] Start: 01-18-2024 Hemoglobin A1c measurement Diabetes: Hemoglobin A1C [facility] Start: 01-09-2024 Urine screening for protein Diabetes: Urine Protein Screening [facility] Start: 11-18-2022 Urine screening for protein Diabetes: Urine Protein Screening [facility] Start: 1950 Screening for malign ant neoplasm of colon [facility] Patient Education Vertigo - ED d ischarge instructions [facility] Work Phone: Patient referral [facility] Work Phone: Immunizations Immunization Date Immunization Notes Care Provider [facility] 02-16-2025 tetanus toxoid, redu rhonda diphtheria toxoid, and acellular pertussis vaccine, adsorbed Khoa Bowles MD Work Phone: [facility] 10-26-2024 influenza, high dose seasonal, preservative-free Khoa Bowles MD Work Phone: [facility] 10-26-2024 influenza virus vacc ine, unspecified formulation Khoa Bowles MD Work Phone: [facility] 10-14-2023 Influenza, Seasonal, Quadrivalent, Adjuvanted Tiffanie Enrique DPM Work Phone: [facility] 10-14-2023 influenza virus vacc ine, unspecified formulation Khoa Bowles MD Work Phone: [facility] 09-09-2022 SARS-CoV-2 (COVID-19 ) [id number] [place] [facility] 09-03-2022 influenza virus vacc ine, unspecified formulation [place] [facility] 09-03-2022 Influenza, High-dose Seasonal, Quadrivalent, Preservative Free Tiffanie Enrique DPM Work Phone: [facility] 09-26-2021 SARS-CoV-2 (COVID-19 ) mRNA-1273 vaccine [place] [facility] 09-25-2021 Moderna SARS-CoV-2 Booster Vaccination Tiffanie Enrique DPM Work Phone: [facility] 08-22-2021 influenza virus vacc ine, unspecified formulation [place] [facility] 08-22-2021 Influenza, Seasonal, Quadrivalent, Adjuvanted Tiffanie Enrique DPM Work Phone: [facility] 08-20-2021 influenza virus vacc ine, unspecified formulation [place] [facility] 01-25-2021 COVID-19 mRNA-1273 (Moderna) Khoa Bowles Work Phone: [facility] 01-25-2021 SARS-CoV-2 (COVID-19 ) Ad26 vaccine, recombinant [place] [facility] 12-31-2020 pneumococcal conjuga te vaccine, 13 valent Khoa Bowles MD Work Phone: [facility] 12-28-2020 COVID-19 mRNA-1273 (Moderna) Khoa Bowles Work Phone: [facility] Comment on above: Result Comment: 2022: [id number] 08-06-2020 influenza virus vacc ine, unspecified formulation [place] [facility] 08-06-2020 Influenza, Seasonal, Quadrivalent, Adjuvanted Tiffanie Enrique DPM Work Phone: [facility] 09-04-2019 influenza virus vacc ine, unspecified formulation [place] [facility] 09-04-2019 influenza, high dose seasonal, preservative-free Tiffanie Enrique DPM Work Phone: [facility] 08-19-2018 influenza virus vacc ine, unspecified formulation [place] WOOD [facility] 08-19-2018 influenza, high dose seasonal, preservative-free Tiffanie Enrique DPM Work Phone: [facility] 09-06-2017 influenza virus vacc ine, unspecified formulation [place] WOOD [facility] 09-06-2017 influenza, high dose seasonal, preservative-free Tiffanie Enrique DPM Work Phone: [facility] 09-06-2017 pneumococcal polysaccharide vaccine, 23 valent [place] [facility] 08-18-2017 influenza virus vacc ine, unspecified formulation [place] [facility] 08-17-2016 influenza virus vacc ine, unspecified formulation [place] [facility] 08-17-2016 influenza, high dose seasonal, preservative-free Tiffanie Enrique DPM Work Phone: [facility] 08-17-2016 pneumococcal conjuga te vaccine, 13 valent [place] [facility] 08-22-2015 zoster vaccine, live [place] [facility] 08-17-2015 influenza, seasonal, injectable, preservative free Tiffanie Enrique DPM Work Phone: [facility] 07-27-2013 influenza virus vacc ine, unspecified formulation Madison WOOD [facility] 02-22-2012 pneumococcal polysaccharide vaccine, 23 valent Tiffanie Enrique DPM Work Phone: [facility] 07-20-2009 pneumococcal polysaccharide vaccine, 23 valent Madison WOOD [facility] Payers Date Payer Category Payer Medicare [id number] 2016 Medicare [id number] 2016 Private Health Insurance [id number] 1959 Medicare [id number] 1959 Private Health Insurance [facility] [id number] 1959 Self-pay [id number] 1950 Unknown [id number] 2.16.84 0.1.756591.3.579.2.593 1950 Unknown [id number] 2.16.84 0.1.775924.3.579.2.593 1950 Unknown [id number] 2.16.84 0.1.278194.3.579.2.593 1950 Unknown [id number] 2.16.84 0.1.973642.3.579.2.593 1950 Unknown [id number] 2.16.84 0.1.558010.3.579.2.593 1950 Unknown [id number] 2.16.84 0.1.035116.3.579.2.593 1950 Unknown [id number] 2.16.84 0.1.921025.3.579.2.593 1950 Unknown [id number] 2.16.84 0.1.042943.3.579.2.593 1950 Unknown [id number] 2.16.84 0.1.956562.3.579.2.593 1950 Unknown [id number] 2.16.84 0.1.659089.3.579.2.593 1950 Unknown [id number] 2.16.8 40.1.302712.3.579.2.727 1950 Unknown [id number] 2.16.8 40.1.460287.3.579.2.727 1950 Unknown [id number] 2.16.8 40.1.147173.3.579.2.727 1950 Unknown [id number] 2.16.8 40.1.987422.3.579.2.727 1950 Unknown [id number] 2.16.8 40.1.868989.3.579.2.727 1950 Unknown [id number] 2.16.8 40.1.412461.3.579.2.727 1950 Unknown [id number] 2.16. 840.1.182237.3.579.2.1286 1950 Unknown [id number] 2.16. 840.1.018895.3.579.2.1286 1950 Unknown [id number] 2.16. 840.1.555155.3.579.2.1286 1950 Unknown [id number] 2.16. 840.1.306429.3.579.2.1286 1950 Unknown [id number] 2.16.8 40.1.919084.3.579.2.1259 1950 Unknown [id number] 2.16.8 40.1.585298.3.579.2.1259 1950 Unknown [id number] 2.16.8 40.1.552502.3.579.2.1259 1950 Unknown [id number] 2.16.8 40.1.245419.3.579.2.1259 1950 Unknown [id number] 2.16.8 40.1.910897.3.579.2.1258 1950 Unknown [id number] 2.16.84 0.1.851885.3.579.2.9 1950 Unknown [id number] 2.16.84 0.1.800904.3.579.2.1258 1950 Unknown [id number] 2.16.84 0.1.492575.3.579.2.1258 1950 Unknown [id number] 2.16.84 0.1.275618.3.579.2.1258 1950 Unknown [id number] 2.16.84 0.1.338535.3.579.2.1258 1950 Unknown [id number] 2.16.84 0.1.745466.3.579.2.1259 Unknown [id number] Unknown [id number] 2.16.8 40.1.672648.3.579.2.531 Unknown [id number] 2.16.8 40.1.944079.3.579.2.531 Unknown [id number] 2.16.8 40.1.654180.3.579.2.531 Social History Date Type Detail Facility Start: 04-03-2021 End: 06-02-2023 Tobacco smoking status NYIS Never smoked tobacco (finding) [facility] Start: 1950 Sex Assigned At Male [facility] Tobacco smoking status Never [facility] Start: 12-09-2023 End: 06-18-2025 Sex Assigned At Male [facility] Start: 12-09-2023 End: 07-19-2025 Alcohol intake Lifetime non-drinker (finding) [facility] Start: 12-09-2023 End: 06-18-2025 [facility] Start: 04-14-2023 Alcohol Comment Caffeine intak e: none [facility] Start: 1950 Sex Assigned At Not on file [facility] Sexual Orientation [facility] Start: 02-12-2010 Sex Male (finding) [facility] How often do you nee d to have someone help you when you read instructions, pamphlets, or other written material from your doctor or pharmacy [SILS] Never [facility] Do you belong to any clubs or organizations such as baptism groups, unions, fraternal or athletic groups, or school groups? No [facility] Are you now , , , , never or living with a partner? [facility] Do you feel stress - tense, restless, nervous, or anxious, or unable to sleep at night because your mind is troubled all the time - these days [OSQ] Not at all [facility] (I/We) worried wheth er (my/our) food would run out before (I/we) got money to buy more. Never true [facility] Medical Equipment Procedure Code Equipment Code [...] COFLEX SIZE [address] art: 11-23-2018 [id number] Start: 08-02-2023 End: 05-07-2025 1 Units in the morning. Take before meals. Accucheck soft clix. [id number] Start: 11-10-2023 End: 11-04-2024 Injection subcutaneous [id number] Start: 11-11-2023 Use for Injectio n subcutaneous twice daily [id number] Start: 07-24-2024 Injection subcutaneous [id number] Start: 06-01-2024 End: 07-24-2024 1 strip by In Vi tro route in the morning and 1 strip in the evening. Take before meals. [id number] Start: 05-07-2025 End: 08-15-2025 1 Lancet in the morning and 1 Lancet in the evening. Take before meals. [id number] Start: 05-07-2025 End: 08-15-2025 Functional Status Date Assessment Result Facility 05-07-2025 Patient Health Quest ionnaire 2 item (PHQ-2) [Reported] [facility] 04-26-2025 Patient Health Quest ionnaire 2 item (PHQ-2) [Reported] [facility] 12-18-2024 Functional Status N/A [facility] 09-04-2024 Functional Status N/A [facility] 07-21-2023 Functional Status N/A [facility] 01-05-2023 Functional Status N/A [facility] Clinical Notes 09-21-2022 to 07-19-2025 Khoa Bowles MD - 07/19/2025 4:30 PM EDTTiffanie Enrique DPM - 07/12/2025 1:00 PM Pj Bowles MD - 06/30/2025 11:40 AM Pj Bowles MD - 05/07/2025 11:00 AM EDT Note Date & Type Note Facility 07-19-2025 History of Present illness Narrative Images from the original note were not included. Patient ID: Manuel Balderas is a 75 y.o. male who presents for: Flowsheet Row Patient Outreach from 07/16/2025 in [facility] with Larissa Leavitt RN Hospital Information ED, Hospital or Usp Facility Discharge? ED Patient has been contacted within 2 days of being seen in the ED Yes Diagnosis Vertigo Discharge Date 07/13/25 Discharged To: Home Setting Discharge [facility] Engagement Call Start Time 1705 Admission Date [...] to their discharge instructions? Yes [spoke to Summer, pt's ] Nursing Interventions Reviewed instructions [...] 1 PVC beat, without S3, S4. No murmur. I was actually unable to hear the previously [...] mg by mouth in the morning. biotin 66000 MCG tablet Take 1 tablet by mouth [...] also notes that he just InStent lost consciousness and fell. He did not feel like he fell secondary to the vertigo. Because of the drop component while the vertigo may have played a role it would not be causative in the loss of consciousness in my opinion. I [...] transition of care note is reviewed. a guit-ht-phwr evaluation is done today. Medical decision making is complex in degree. 5. Morbid obesity due to excess calories ([facility]) Encouraged lifestyle changes 6. Lymphedema of both lower extremities He would like to get a lift chair that goes up the stairs from the basement. He is starting to have trouble and this is not unreasonable say can [...] may have occurred. documented in this encounter [facility] 07-13-2025 Radiology Diagnostic study note [facility] [place] [address] CT Scan Report Signed Patient: Manuel Balderas MR#: [id number] : 1950 Acct:[id number] Age/Sex: 75 / M ADM Date: 5 Loc: ER Room: Type: PRE ER Attending Dr: Copies to: Madison Drew DO~ Ordering Provider: Madison Drew DO Date of Service: 07/13/25 CT/CT angio neck: vertigo ([id number]) CT/CT angio head: vertigo CT angiogram head and neck INDICATION: Near syncopal episode, dizziness COMPARISON: CT head 07/13/2025 TECHNIQUE: Contiguous axial CT angiogram images obtained through the head and neck with coronal and sagittal reformats. Evaluation degree of ICA narrowing was performed utilizing NASCET criteria. This CT exam was performed using one or more following dose reduction techniques: Automated exposure control, adjustment of the mA and/or kV according to patient size, or use of iterative reconstruction technique. FINDINGS: 4 vessel configuration of the arch with left vertebral artery arising from the arch. Great Vessels are patent. Common carotid arteries, carotid bifurcations and cervical ICAs are patent without hemodynamically significant stenosis or narrowing her NASCET criteria. Retropharyngeal course of the bifurcations noted. The vertebral arteries are codominant and patent throughout their course. Intracranial ICAs are patent with mild plaque. origin right REHABILITATION INSPECTOR. origin left REHABILITATION INSPECTOR with small contribution from the basilar artery. Otherwise the intradural vertebral arteries and basilar artery appear patent. Posterior arteries are patent. Picas are patent. There is slight tortuosity and slight prominence of the left intradural vertebral artery incidentally notedAnterior cerebral arteries are patent. Anterior communicating artery is patent. Middle cerebral arteries are patent.. Major dural venous sinuses appear grossly preserved. No saccular aneurysm identified CT/CT angio head IMPRESSION: Negative for large vessel occlusion or hemodynamically significant stenosis. Impression dictated by: Marty Sandoval M.D. 07/13/2025 4:10 PM Dictation Location: [place] [address] Transcribed By: RHONDA 07/13/25 1610 Dictated By: Marty Sandoval MD 07/13/25 1602 Signed By: 07/13/25 1610 [facility] Work Phone: 07-13-2025 Radiology Diagnostic study note [facility] Main [place] [address] [place] [address] CT Scan Report Signed Patient: Manuel Balderas MR#: [id number] : 1950 Acct:[id number] Age/Sex: 75 / M ADM Date: 5 Loc: ER Room: Type: PRE ER Attending Dr: Copies to: Madison Drew DO~ Ordering Provider: Madison Drew DO Date of Service: 07/13/25 CT/CT head/brain wo con: altered mental status CT BRAIN WITHOUT CONTRAST: CLINICAL HISTORY: Altered mental status COMPARISON: None TECHNIQUE: Contiguous axial unenhanced images were obtained through the brain. This CT exam was performed using one or more following dose reduction techniques: Automated exposure control, adjustment of the mA and/or kV accordingto patient size, or use of iterative reconstruction technique. FINDINGS: There is no evidence of midline shift, intra or extra-axial fluid collection, hemorrhage or CT evidence of acute large vascular distribution stroke. Mild periventricular subcortical hypoattenuation suggestive of chronic small vessel ischemic disease. There are intracranial vascular calcifications. Cataract surgery. Visualized paranasal sinuses are clear. The surrounding soft tissues are normal. CT/CT head/brain wo con IMPRESSION: NO ACUTE INTRACRANIAL ABNORMALITY. CHRONIC SMALL VESSEL ISCHEMIC DISEASE. Impression dictated by: Marty Sandoval M.D. 07/13/2025 3:51 PM Dictation Location: [id number] Transcribed By: [facility] 07/13/25 1551 Dictated By: Marty Sanodval MD 07/13/25 1548 Signed By: 07/13/25 1551 [facility] Work Phone: 07-12-2025 History of Present illness Narrative Images from the original note were not included. Subjective Patient ID: Manuel Balderas is a 75 y.o. male who presents for Nail care (Manuel Balderas is a 75 y.o. male who presents for Nail care. Patient relates he started Pain management with [facility] for left ankle. PCP: Dr. Jelena HERNANDEZ 05/07/2025 A1C: 6.6, BS: 150, SS: [...] in the morning., Disp: , Rfl: biotin 51572 MCG tablet, Take 1 tablet by mouth [...] of 1 of the Coflex devices., Uday, [facility] PROSTATE SURGERY 05/22/2025 Prostate Transrectal MRI Fusion Bx, Dr Wood ROTATOR CUFF REPAIR Left 1999 anterior stabilization [...] Mood normal. Behavior: Behavior normal. MODIFIER: Q9, 43746, 74358 Assessment/Plan ICD-10-CM 1. Onychomycosis B35.1 2. Type II or unspecified type diabetes mellitus with neurological manifestations, not 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) ([facility]) E11.49 3. Acquired keratoderma L85.1 Conservative and [...] Review of Systems documented in this encounter [facility] 06-30-2025 History of Present illness Narrative Reviewed both the pain management note urology note. Problem list upgraded. documented in this encounter [facility] 06-11-2025 Hospital Discharge instructions Patient Education 06/11/2025 14:58:36 Prostate Cancer Prostate Cancer The prostate is a small gland that produces fluid that makes up semen (seminal fluid). It is located below the bladder in men, in front of the rectum. Prostate cancer is the abnormal growth of cells in the prostate gland. What are the causes? The exact cause of this condition is not known. What increases the risk? You are more likely to develop this condition if: You are 65 years of age or older. You have a family history of prostate cancer. You have a family history of breast and ovarian cancer. You have genes that are passed from parent to child (inherited), such as BRCA1 and BRCA2. You have Son syndrome. men and men of descent are diagnosed with prostate cancer at higher rates than other men. The reasons for this are not well understood and are likely due to a combination of genetic and environmental factors. What are the signs or symptoms? Symptoms of this condition include: Problems with urination. This may include: ?A weak or interrupted flow of urine. ?Trouble starting or stopping urination. ?Trouble emptying the bladder all the way. ?The need to urinate more often, especially at night. Blood in urine or semen. Persistent pain or discomfort in the lower back, lower abdomen, or hips. Trouble getting an erection. Weakness or numbness in the legs or feet. How is this diagnosed? This condition can be diagnosed with: A digital rectal exam. For this exam, a health care provider inserts a gloved finger into the rectum to feel the prostate gland. A blood test called a prostate-specific antigen (PSA) test. A procedure in which a sample of tissue is taken from the prostate and checked under a microscope (prostate biopsy). An imaging test called transrectal ultrasonography. Once the condition is diagnosed, tests will be done to determine how far the cancer has spread. This is called staging the cancer. Staging may involve imaging tests, such as a bone scan, CT scan, PET scan, or MRI. Stages of prostate cancer The stages of prostate cancer are as follows: Stage 1 (I). At this stage, the cancer is found in the prostate only. The cancer is not visible on imaging tests, and it is usually found by accident, such as during prostate surgery. Stage 2 (II). At this stage, the cancer is more advanced than it is in stage 1, but the cancer has not spread outside the prostate. Stage 3 (III). At this stage, the cancer has spread beyond the outer layer of the prostate to nearby tissues. The cancer may be found in the seminal vesicles, which are near the bladder and the prostate. Stage 4 (IV). At this stage, the cancer has spread to other parts of the body, such as the lymph nodes, bones, bladder, rectum, liver, or lungs. Prostate cancer grading Prostate cancer is also graded according to how the cancer cells look under a microscope. This is called the [place] score and the total score can range from 6 10, indicating how likely it is that the cancer will spread (metastasize) to other parts of the body. The higher the score, the greater the likelihood that the cancer will spread. Collin 6 or lower: This indicates that the cancer cells look similar to normal prostate cells (well differentiated). Collin 7: This indicates that the cancer cells look somewhat similar to normal prostate cells (moderately differentiated). [place] 8, 9, or 10: This indicates that the cancer cells look very different than normal prostate cells (poorly differentiated). How is this treated? Treatment for this condition depends on several factors, including the stage of the cancer, your age, personal preferences, and your overall health. Talk with your health care provider about treatment options that are recommended for you. Common treatments include: Observation for early stage prostate cancer (active surveillance). This involves having exams, blood tests, and in some cases, more biopsies. For some men, this is the only treatment needed. Surgery. Types of surgeries include: ?Open surgery (radical prostatectomy). In this surgery, a larger incision is made to remove the prostate. ?A laparoscopic radical prostatectomy. This is a surgery to remove the prostate and lymph nodes through several small incisions. It is often referred to as a minimally invasive surgery. ?A robotic radical prostatectomy. This is laparoscopic surgery to remove the prostate and lymph nodes with the help of robotic arms that are controlled by the surgeon. ?Cryoablation. This is surgery to freeze and destroy cancer cells. Radiation treatment. Types of radiation treatment include: ?External beam radiation. This type aims beams of radiation from outside the body at the prostate to destroy cancerous cells. ?Brachytherapy. This type uses radioactive needles, seeds, wires, or tubes that are implanted into the prostate gland. Like external beam radiation, brachytherapy destroys cancerous cells. An advantage is that this type of radiation limits the damage to surrounding tissue and has fewer side effects. Chemotherapy. This treatment kills cancer cells or stops them from multiplying. It kills both cancer cells and normal cells. Targeted therapy. This treatment uses medicines to kill cancer cells without damaging normal cells. Hormone treatment. This treatment involves taking medicines that act on testosterone, one of the male hormones, by: ?Stopping your body from producing testosterone. ?Blocking testosterone from reaching cancer cells. Follow these instructions at home: Lifestyle Do not use any products that contain nicotine or tobacco. These products include cigarettes, chewing tobacco, and vaping devices, such as e-cigarettes. If you need help quitting, ask your health care provider. Eat a healthy diet. To do this: ?Eat foods that are high in fiber. These include beans, whole grains, and fresh fruits and vegetables. ?Limit foods that are high in fat and sugar. These include fried or sweet foods. Treatment for prostate cancer may affect sexual function. If you have a partner, continue to have intimate moments. This may include touching, holding, hugging, and caressing your partner. Get plenty of sleep. Consider joining a support group for men who have prostate cancer. Meeting with a support group may help you learn to manage the stress of having cancer. General instructions Take rdyd-rro-nhkkgbm and prescription medicines only as told by your health care provider. If you have to go to the hospital, notify your cancer specialist (oncologist). Keep all follow-up visits. This is important. Where to find more information [place] [employer]: www.cancer.org [place] [employer] On[employer]: www.cancer.net [employer] [place]: www.cancer.gov Contact a health care provider if: You have new or increasing trouble urinating. You have new or increasing blood in your urine. You have new or increasing pain in your hips, back, or chest. Get help right away if: You have weakness or numbness in your legs. You cannot control urination or your bowel movements (incontinence). You have chills or a fever. Summary The prostate is a small gland that is involved in the production of semen. It is located below a man's bladder, in front of the rectum. Prostate cancer is the abnormal growth of cells in the prostate gland. Treatment for this condition depends on the stage of the cancer, your age, personal preferences, and your overall health. Talk with your health care provider about treatment options that are recommended for you. Consider joining a support group for men who have prostate cancer. Meeting with a support group may help you learn to manage the stress of having cancer. This information is not intended to replace advice given to you by your health care provider. Make sure you discuss any questions you have with your health care provider. Document Revised: 01/14/2022 Document Reviewed: 01/14/2022 [employer] Patient Education 2023 [employer]. Follow Up Care 05/08/2025 11:37:19 With:NINA LEVY, Madison Crespo, URL Address: [address] [place] [phone] When: Unknown Comments:6 mos w/ PSA [facility] 05-07-2025 History of Present illness Narrative Images [...] MD as PCP - ACO Reach Madison Wood MD as Referring Physician (Urology) Tiffanie Enrique DPM as Referring Physician (Podiatry) Larissa Leavitt [...] Yes Vision Screening: Yes, patient sees regular journalist/research assistant Hearing Screening: Not done Cognitive Screening Self Assessment: No concerns rasied by family members, friends, or caretakers Three Word Registration: Banana, [place], Chair Clock Drawing: Normal Clock - 2 [...] fatigue Microalbuminuric diabetic nephropathy (HCC) Morbid obesity (CMS-HCC) Neuropathy Polyneuropathy with improvement with gabapentin. he [...] arthropathy, without long-term current use of insulin (HCC) Type II [...] of 1 of the Coflex devices., Uday [facility] ROTATOR CUFF REPAIR Left 2000 anterior stabilization [...] mg, Daily aspirin 81 mg, Daily biotin 54343 MCG tablet 1 tablet, 2 times daily [...] 9. Morbid obesity due to excess calories ([facility]) Chronic problem, stable, monitor longitudinally. 10. Type 2 diabetes mellitus with foot ulcer (CODE) (HCC) Chronic problem, stable, monitor longitudinally. 11. Thrombocytopenia Chronic problem, stable, monitor longitudinally. documented in this encounter [facility] 04-26-2025 History of Present illness Narrative Images [...] mg by mouth in the morning. biotin 31708 MCG tablet Take 1 tablet by mouth [...] 11. Morbid obesity due to excess calories ([facility]) Chronic problem, stable, monitor longitudinally. documented in this encounter [facility] 04-05-2025 History of Present illness Narrative Images from the original note were not included. Subjective Patient ID: Manuel Balderas is a 75 y.o. male who presents for Nail care ( Manuel Balderas is a 75 y.o. male who presents for Nail care. Patient relates he started Pain management with [facility] for left ankle. PCP: Dr. Bowles 10/31/2025 A1C: 6.6, BS: 143, SS: 12). Patient presents complaining of elongated, thick fungal nails. He is requesting nail debridement today. He was also requesting debridement of the callus of the left hallux of the left weight-bearing surface of the heel. He states he has seeing a doctor in [place] for his left ankle pain and arthritis. [...] in the morning., Disp: , Rfl: biotin 96839 MCG tablet, Take 1 tablet by mouth [...] of 1 of the Coflex devices., Uday, [facility] ROTATOR CUFF REPAIR Left 2000 anterior stabilization [...] Mood normal. Behavior: Behavior normal. MODIFIER: Q9, 91670, 12542 Assessment/Plan ICD-10-CM 1. Type II or unspecified type diabetes mellitus with neurological manifestations, not 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) (CMS/[facility]) E11.49 2. Onychomycosis B35.1 3. Acquired keratoderma [...] Review of Systems documented in this encounter [facility] 04-02-2025 Hospital Discharge instructions Patient Education 04/02/2025 [...] including vitamins, herbs, eye drops, creams, and erjr-twi-shhdvct medicines. Any surgeries you have had. Any [...] provider. Document Revised: 07/01/2022 Document Reviewed: 02/19/2021 [employer] Patient Education 2023 [employer]. 04/02/2025 13:09:37 Prostate Cancer Screening Prostate Cancer [...] treatment? Where to find more information [employer] [place] [employer]: www.cancer.org [employer] [place] [employer]: www.auanet.org Contact a health care [...] provider. Document Revised: 04/13/2022 Document Reviewed: 04/13/2022 [employer] Patient Education 2023 [employer]. Follow Up Care 12/18/2024 11:38:54 With:NINA LEVY, Madison Crespo, URL Address: [facility] [address] [place] [address]- [phone] When: Unknown [facility] 04-02-2025 Note Patient Education Oncology Prostate Cancer [...] Where to find more information ??? [employer] [place] [employer]: www.cancer.org ??? [place] [employer]: www.auanet.org Contact a health care [...] not included)... [facility] 02-20-2025 History of Present illness Narrative Images from the original note were not included. Patient ID: Manuel Balderas is a 74 y.o. male who presents for: ER Follow up: Fall Skin tear Flowsheet Row Patient Outreach from 02/19/2025 in [facility] with Larissa Leavitt RN Hospital Information ED, Hospital or Usp Facility Discharge? ED Patient has been contacted within 2 days of being seen in the ED Yes Diagnosis Skin tear Discharge Date 02/16/25 Discharged To: Home [facility] Call Start Time 1456 Admission [...] mg by mouth in the morning. biotin 17982 MCG tablet Take 1 tablet by mouth [...] or 2. I did redress with bacitracin Monet. I discussed with them using a healing [...] transition of care note is reviewed. a qxtu-kq-bjie evaluation is done today. Medical decision making is complex in degree. documented in this encounter [facility] 12-28-2024 History of Present illness Narrative Images [...] brace at an orthotic prosthetic Center in [facility] Review of Systems Current Outpatient Medications: allopurinol (Zyloprim) 300 MG tablet, Take 300 mg by mouth Daily, Disp: , Rfl: aspirin 81 MG EC tablet, Take 81 mg by mouth in the morning., Disp: , Rfl: biotin 41765 MCG tablet, 1 (one) time each day [...] of 1 of the Coflex devices., Uday, [facility] ROTATOR CUFF REPAIR Left 2000 anterior stabilization [...] Mood normal. Behavior: Behavior normal. MODIFIER: Q9, 852[address], 83603 Assessment/Plan ICD-10-CM 1. Type II or unspecified type diabetes mellitus with neurological manifestations, not 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) ([facility]) E11.49 2. Onychomycosis B35.1 3. Acquired keratoderma [...] Tiffanie Enrique DPM documented in this encounter [facility] 12-18-2024 Hospital Discharge instructions Patient Education 12/18/2024 [...] your health care provider. General instructions Take mbbb-lqv-upelkxx and prescription medicines only as told by [...] provider. Document Revised: 07/07/2021 Document Reviewed: 07/07/2021 [employer] Patient Education 2023 [employer] Interactive. Follow Up Care 09/04/2024 14:29:02 With:NINA LEVY, Madison Crespo, URL Address: [facility] [address] , [place] [address]- [phone] When: Unknown Comments:3 mos w/ PVR and PSA [facility] [place] 12-18-2024 Note Patient Education Obstetrics [...] health care provider. General instructions ??? Take oojq-uwh-kaykohu and prescription medicines only as told by [...] not included)... [facility] 10-31-2024 History of Present illness Narrative Images [...] mg by mouth in the morning. biotin 90279 MCG tablet 1 (one) time each day [...] capsule; Refill: 3 documented in this encounter [facility] 09-14-2024 History of Present illness Narrative Images [...] in the morning., Disp: , Rfl: biotin 37469 MCG tablet, 1 (one) time each day [...] of 1 of the Coflex devices., Uday, [facility] ROTATOR CUFF REPAIR Left 1999 anterior stabilization [...] Mood normal. Behavior: Behavior normal. MODIFIER: Q9, 15876, 08243 Assessment/Plan ICD-10-CM 1. Type II or unspecified type diabetes mellitus with neurological manifestations, not 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) ([facility]) E11.49 2. Onychomycosis B35.1 3. Acquired keratoderma [...] Tiffanie Enrique DPM documented in this encounter [facility] 09-04-2024 Hospital Discharge instructions Patient Education 09/04/2024 [...] include: ?8 oz (237 mL) of milk, mfvdtie-tynldqwwthgv-qsfbo milk, and calcium-fortifiedfruit juice. Calcium-fortified means that [...] ?Spinach (cooked), rhubarb, beets, sweet potatoes, and American chard. ?Peanuts. ?Potato chips, latvian fries, and baked potatoes with skin on. ?Nuts and nut products. ?Chocolate. If you regularly take a diuretic medicine, make sure to eat at least 1 or 2 servings of fruits or vegetables that are high in potassium each day. These include: ?Avocado. ?Banana. ?Mcduffie, prune, carrot, or tomato juice. ?Baked potato. [...] magnesium, fish oil, or vitamin B6. Take wipq-tgj-wtumzww and prescription medicines only as told by [...] Casseroles. Pizza. Lasagna. Frozen meals. Potato chips. Norwegian fries. The items listed above may not [...] provider. Document Revised: 01/28/2023 Document Reviewed: 01/28/2023 [employer] Patient Education 2023 [employer] Interactive. Follow Up Care 07/20/2024 10:51:39 With:NINA LEVY, Madison Crespo, URL Address: [facility] [address] , [place] [address]- When: Unknown [facility] 09-04-2024 Note Patient Education Nephrology Dietary Guidelines [...] ? 8 oz (237 mL) of milk, zlhsusy-xmelcjhhnzss-eymtg milk, and calcium-fortifiedfruit juice. Calcium-fortified means that [...] Spinach (cooked), rhubarb, beets, sweet potatoes, and American chard. ? Peanuts. ? Potato chips, latvian fries, and baked potatoes with skin on. ? Nuts and nut products. ? Chocolate. ??? If you regularly take a diuretic medicine, make sure to eat at least 1 or 2 servings of fruits or vegetables that are high in potassium each day. These include: ? Avocado. ? Banana. ? Mcduffie, prune, carrot, or tomato juice. ? Baked [...] fish oil, or vitamin B6. ??? Take hnuo-ujg-vdykwdt and prescription medicines only as told by your health (more content not included)... [facility] 08-08-2024 History of Present illness Narrative Subjective [...] Facet arthritis of lumbar region Fibromyalgia Hyperlipidemia ([facility]) Hypertension ([facility]) Iron deficiency anemia refractory to iron therapy Kidney calculi Kidney stones Malaise and fatigue Microalbuminuric diabetic nephropathy (CMS/HCC) Morbid obesity ([facility]) Neuropathy Polyneuropathy with improvement with gabapentin. he cannot walk for long distances due to fatigue and weakness and is afraid of falling. He is having some balance difficulty possibly due to the gabapentin and will decrease med to see if there is improvement Non-pressure chronic ulcer of other part of left foot limited to breakdown of skin ([facility]) Obesity Obstructive sleep apnea (adult) (pediatric) Obstructive sleep apnea on CPAP 2009 Peripheral neuropathy Peripheral vascular disease ([facility]) Personal history of medical treatment 2009 infection in foot surgery Polyneuropathy Polyradiculopathy Radiculopathy, lumbosacral region Right bundle branch block Rotator cuff tear, left Skin ulcer of toe of left foot with fat layer exposed ([facility]) Type 2 diabetes mellitus with diabetic nephropathy, without long-term current use of insulin ([facility]) Type 2 diabetes mellitus with diabetic neuropathic arthropathy, without long-term current use of insulin ([facility]) Type II diabetes mellitus with neurological manifestations not at goal ([facility]) Ulcer of left foot with fat layer exposed ([facility]) Weakness Past Surgical History: Procedure Laterality Date [...] of 1 of the Coflex devices., Uday [facility] ROTATOR CUFF REPAIR Left 2000 anterior stabilization [...] Review Audit Reviewed by Taisha Gore MA (Physicist [employer]) on 08/08/24 at 1240 Medication Order Taking? Sig Documenting Provider Last Dose Status allopurinol (Zyloprim) 300 MG tablet [id number] No Take 1 tablet (300 mg) by mouth Daily Khoa Bowles MD Taking Active aspirin 81 MG EC tablet [id number] No Take 81 mg by mouth in the morning. Karli Boston MD Taking Active biotin 26080 MCG tablet [id number] No 1 (one) time each day at the same time. Karli ProviderMD Taking Active dapagliflozin (Farxiga) 10 MG [id number] No Take 1 tablet (10 mg) by mouth Daily Khoa Bowles MD Taking Active doxycycline (Monodox) 100 MG capsule [id number] No Take 1 capsule (100 mg) by mouth in the morning. Khoa Bowles MD Taking Active fenofibrate (Triglide) 160 MG tablet [id number] No Take 1 tablet (160 mg) by mouth Daily Khoa Bowles MD Taking Active ferrous sulfate 325 (65 Fe) MG tablet [id number] No Take 325 mg by mouth in the morning. Take with meals. Historical ProviderMD Taking Active Flomax 0.4 MG 24 hr capsule [id number] No Take 0.4 mg by mouth in the evening. Karli Boston MD Taking Active gabapentin (Neurontin) 300 MG capsule [id number] Take 1 capsule (300 mg) by mouth in the morning and 1 capsule (300 mg) before bedtime. SUSANNA Arndt Active hydroCHLOROthiazide (HYDRODiuril) 25 MG tablet [id number] No Take 1 tablet (25 mg) by mouth in the evening Khoa Bowles MD Taking Active insulin glargine (Basaglar KwikPen) 100 UNIT/ML pen [id number] No Inject bid, sliding blood glucose scale with the coverage: <70, zero and eat. 70-150, 10 units. 151-200, 14 units. 201-250, 16 units. 251-300, 18 units. >300, 20 units Khoa Bowles MD Taking Active losartan-hydroCHLOROthiazide (Hyzaar) 100-12.5 MG tablet [id number] No Take 1 tablet by mouth Daily Khoa Bowles MD Taking Active Lutein 20 MG tablet [id number] No 1 (one) time each day at the same time. Historical Provider, Taking Active metFORMIN (Glucophage) 1000 MG tablet [id number] No Take 1 tablet (1,000 mg) by mouth in the morning and 1 tablet (1,000 mg) in the evening. Take with meals. Khoa Bowles MD Taking Active metoprolol tartrate (Lopressor) 50 MG tablet [id number] No Take 1 tablet (50 mg) by mouth in the morning and 1 tablet (50 mg) before bedtime. Khoa Bowles MD Taking Active pen needle 32G x 6 mm [facility] [id number] No Use for Injection subcutaneous twice daily Khoa Bowles MD Taking Active sodium bicarbonate 650 MG tablet [id number] No Take 3 tablets by mouth in the morning and 3 tablets before bedtime. Historical Provider, Taking Active spironolactone (Aldactone) 25 MG tablet [id number] No 2 tablets in Am and 1 [...] triceps, wrist extensors, wrist extensors, wrist flexor, landscape drafter strength 5/5. LUE Strength deltoid, biceps, triceps, wrist extensors, wrist extensors, wrist flexor, landscape drafter strength 5/5. RLE Strength illopsoas, quadriceps, tibialis [...] or worsening symptoms documented in this encounter [facility] 07-24-2024 Telephone encounter Note RX corrected and sent [facility] 07-24-2024 Miscellaneous Notes RX corrected and sent [...] he tried to refill the needles at [facility], they told him that they show the 100 is a 90 day supply for him and will not refill it. He is asking if Dr. Bowles can send an order to [facility] stating how often he test to show how many needles a 90 day supply is. He states he is out of needles and can not check his sugar. documented in this encounter [facility] 07-24-2024 Telephone encounter Note He said he is talking about his pen needles. They are wrote for only one box of 100 for 90 days but he does his medication twice daily and so he needs 200. I am not sure how to fix this script. I pended what I believe would be right if you can look it over please [facility] 07-24-2024 Telephone encounter Note Sridevi, I suspect he is talking about testing with the lens sets and test strips. Can you confirm this is what he needs. If so okay to send a prescription for 200 with directions of tests twice a day and as needed. [facility] 07-24-2024 Telephone encounter Note Abelino called, his last fill of needles was for 100. He states that he is suppose to test twice a day. When he tried to refill the needles at [facility], they told him that they show the 100 is a 90 day supply for him and will not refill it. He is asking if Dr. Bowles can send an order to [facility] stating how often he test to show how many needles a 90 day supply is. He states he is out of needles and can not check his sugar. [facility] 12-09-2023 History of Present illness Narrative Images [...] in the morning., Disp: , Rfl: biotin 47048 MCG tablet, 1 (one) time each day [...] of 1 of the Coflex devices., Uday [facility] ROTATOR CUFF REPAIR Left 2000 anterior stabilization [...] Mood normal. Behavior: Behavior normal. MODIFIER: Q9, 28903, 95657 Assessment/Plan Diagnoses and all orders for this visit: Type II or unspecified type diabetes mellitus with neurological manifestations, not 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) ([facility]) Onychomycosis Hallux limitus, left Acquired keratoderma Conservative [...] Tiffanie Enrique DPM documented in this encounter [facility] 07-21-2023 Hospital Discharge instructions Patient Education 07/21/2023 [...] include: ?8 oz (237 mL) of milk, tbnynww-vcidjmzpizpl-fdion milk, and calcium-fortifiedfruit juice. Calcium-fortified means that [...] ?Spinach (cooked), rhubarb, beets, sweet potatoes, and American chard. ?Peanuts. ?Potato chips, latvian fries, and baked potatoes with skin on. ?Nuts and nut products. ?Chocolate. If you regularly take a diuretic medicine, make sure to eat at least 1 or 2 servings of fruits or vegetables that are high in potassium each day. These include: ?Avocado. ?Banana. ?Mcduffie, prune, carrot, or tomato juice. ?Baked potato. [...] magnesium, fish oil, or vitamin B6. Take jrha-uns-ekaujbx and prescription medicines only as told by [...] Casseroles. Pizza. Lasagna. Frozen meals. Potato chips. Norwegian fries. The items listed above may not [...] provider. Document Revised: 06/29/2022 Document Reviewed: 06/29/2022 [employer] Patient Education 2022 [employer]. Follow Up Care 05/19/2023 09:51:24 With:NINA LEVY, Madison Crespo, URL Address: [facility] [address] , [place] [address]- When: Unknown [facility] [place] 01-05-2023 Hospital Discharge instructions Patient Education 01/05/2023 [...] include: ?Spinach. ?Rhubarb. ?Beets. ?Potato chips and latvian fries. ?Nuts. If you regularly take a diuretic medicine, make sure to eat at least 1 2 fruits or vegetables high in potassium each day. These include: ?Avocado. ?Banana. ?Mcduffie, prune, carrot, or tomato juice. ?Baked potato. [...] Casseroles. Pizza. Lasagna. Frozen meals. Potato chips. Norwegian fries. Summary You can reduce your risk [...] 02/12/2012 Document Revised: 02/07/2020 Document Reviewed: 09/28/2017 [employer] Patient Education 2020 [employer] Interactive. Follow Up Care 10/07/2022 10:58:19 With:NINA LEVY, Madison Crespo, URL Address: [facility] [address] , [place] [address]- When: Unknown [facility] 09-21-2022 Hospital Discharge instructions Patient Education [...] urethra. Follow these instructions at home: Take husr-vmi-aqmsqbo and prescription medicines only as told by [...] 10/18/2006 Document Revised: 09/12/2019 Document Reviewed: 11/22/2017 [employer] Patient Education 2020 [employer]. Follow Up Care 12/22/2021 13:03:04 With:Madison WOOD MD, URL Address: [facility] [address], [place] [address]- When: Unknown [facility] Evaluation + Plan note No data available for this section [facility] Evaluation + Plan note Future Appointments Appointment Date:07/26/2024 01:45:00 PM Scheduled Provider:Madison WOOD MD Location:[facility] Appointment Type:URO Office Visit [facility] Evaluation + Plan note Future Appointments Appointment Date:09/04/2024 12:45:00 PM Scheduled Provider:Madison WOOD MD Location:[facility] Appointment Type:URO Office Visit [facility] Evaluation + Plan note Future Appointments Appointment Date:12/18/2024 10:45:00 AM Scheduled Provider:Madison WOOD MD Location:[facility] Appointment Type:URO Office Visit Diagnostic Tests PendingPSA Total 09/04/24 [facility] Evaluation + Plan note Future Appointments Appointment Date:03/19/2025 11:45:00 AM Scheduled Provider:Madison WOOD MD Location:[facility] Appointment Type:URO Office Visit Diagnostic Tests PendingPSA Total 12/18/24 [facility] Evaluation + Plan note Future Appointments Appointment Date:12/14/2025 09:45:00 AM Scheduled Provider:Madison WOOD MD Location:[facility] Appointment Type:URO Office Visit Diagnostic Tests PendingPSA Total 06/11/25 [facility] Evaluation note No assessment inform ation available [facility] Evaluation note Diagnosis Type II or unspecified type diabetes mellitus with neurological manifestations, not 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) ([facility])- Primary Type II or unspecified type diabetes [...] with neurological manifestations, not 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) ([facility])- Primary Type II or unspecified type diabetes mellitus with neurological manifestations, not stated as uncontrolled Onychomycosis Dermatophytosis of nail Acquired keratoderma [facility] Diagnosis Diabetic nephropathy associated with type 2 diabetes mellitus (HCC) ([facility]) [facility]* Diagnosis 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, not stated as uncontrolled [facility]* Diagnosis Type 2 diabetes mellitus with hyperglycemia, without long-term current use of insulin ([facility]) [facility]* Diagnosis Diabetic neuropathic arthropathy ([facility])- Primary Type II or unspecified type diabetes mellitus with neurological manifestations, not stated as uncontrolled Polyneuropathy due to type 2 diabetes mellitus ([facility]) Primary hypertension ([facility]) Unspecified essential hypertension Peripheral venous insufficiency Unspecified venous (peripheral) insufficiency Diabetic nephropathy associated with type 2 diabetes mellitus (HCC) ([facility]) Type 2 diabetes mellitus with hyperglycemia, without long-term current use of insulin ([facility]) Mixed hyperlipidemia ([facility]) Mixed hyperlipidemia Essential hypertension ([facility]) Unspecified essential hypertension Lymphedema of both lower extremities Chronic cellulitis Cellulitis and abscess of unspecified site [facility]* Diagnosis 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 [facility]* Diagnosis Fall from standing, subsequent encounter Skin tear of upper extremity Bleeding Unspecified hemorrhage Encounter for examination following treatment at hospital [facility]* Diagnosis Type II or unspecified type diabetes mellitus with neurological manifestations, not 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) ([facility])- Primary Type II or unspecified type diabetes [...] of insulin (HCC) Diabetic neuropathic arthropathy (HCC) Type II or unspecified type diabetes mellitus with neurological manifestations, not stated as uncontrolled Lymphedema of both lower extremities Chronic cellulitis Cellulitis and abscess of unspecified site Polypharmacy Issue of repeat prescriptions Morbid obesity due to excess calories ([facility]) Encounter for Medicare annual wellness exam Advance directive in chart Encounter for screening for other disorder Screening for alcohol problem Screening for alcoholism [facility]* Diagnosis Encounter for Medicare annual [...] Thrombocytopenia Unspecified thrombocytopenia documented in this encounter [facility]* Diagnosis Onychomycosis- Primary Dermatophytosis of nail Type II or unspecified type diabetes mellitus with neurological manifestations, not 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) (HCC) Type II or unspecified type diabetes mellitus with neurological manifestations, not stated as uncontrolled Acquired keratoderma documented in this encounter [facility]* Diagnosis Syncope, unspecified syncope type- Primary Right bundle branch block Vertigo Dizziness and giddiness Encounter for examination following treatment at hospital Morbid obesity due to excess calories ([facility]) Lymphedema of both lower extremities documented in this encounter [facility] Discharge instructions No data available for this section [facility] [place] note No data available for this section [facility] reason for referral (narrative)No reason for referral information availableBet[facility] Work Phone: Chief Complaint and Reason for Visit Chief Complaint M43.16 Pre-Surgical Testing Stenosis Chief Complaint m54.10 m48.061 m51.3 6 m46.96 Chief Complaint Admit Date R97.20 April 23, 2025 1:51 pm Unknown May 22, 2025 9:12 am Chief Complaint Admit Date R97.20 April 23, 2025 1:51 pm Unknown May 22, 2025 9:12 am dizzy July 13, 2025 2:25pm Family History Relationship Condition Age at Onset Recorded Date/T alyx father Hodgkin lymphoma Unknown Hypertension Unknown Malignant neoplasm of prostate Unknown Not Specified Hepatic cirrhosis Unknown Type 2 diabetes mellitus Unknown Relationship Condition Age at Onset Recorded Date/T alyx father Hodgkin lymphoma Unknown Hypertension Unknown Malignant neoplasm of prostate Unknown mother Hepatic cirrhosis Unknown Type 2 diabetes mellitus Unknown father Malignant neoplasm Unknown Unknown Non-Hodgkin's lymphoma Unknown mother Diabetes mellitus Unknown Advance Directives Advance Directive Response Recorded Date/ Time Advance Directives No June 20, 2018 3:31pm Documents on File Type Date Recorded 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 Material Distributor 03/29/2024 1:37 PM 07-10 POA Advance Directives and Living Will 03/29/2024 1:37 PM 2013-07-10 Living Wi ll Documents on File Type Date Recorded 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 Material Distributor 03/29/2024 1:37 PM 07-10 POA Advance Directives [...] alternate section No data available for this sectionGoals may be documented in an alternate section Patient Care team informatio n (unrecognized section and content) Team Status: Active Member Role Status Dates Khoa Bowles MD Primary Care Provider Active Team Status: Inactive Member Role Status Dates Khoa Bowles MD Primary Care Provider Active EDWIN ConstantinoC Attending Provider Active Management Advisor Relationship Specialty Start Date End Date Khoa Bowles MD [address] [place] [phone] PCP - General Family Medicine 04/08/23 Madison Wood MD [address] [place] [address] Referring Physician Urology 12/09/23 Tiffanie Enrique DPM [address] [place] [address] Referring Physician Podiatry 12/09/23 Management Advisor Relationship Specialty Start Date End Date Khoa Bowles MD [address] [place] [place] [phone] PCP - General Family Medicine 04/08/23 Khoa Bowles MD [address] [place] [address] (Fax) PCP - ACO Reach 12/31/23 Madison Wood MD [address] [place] [address] Referring Physician Urology 12/09/23 Tiffanie Enrique DPM [address] [place] [address] Referring Physician Podiatry 12/09/23 Management Advisor Relationship Specialty Start Date End Date Khoa Bowles MD [address] [place] [place] [address] PCP - General Family Medicine 04/08/23 Khoa Bowles MD [address] [place] [address] PCP - ACO Reach 12/31/23 Madison Wood MD [address] [place] [address] Referring Physician Urology 12/09/23 Tiffanie Enrique DPM [address] [place] [address] Referring Physician Podiatry 12/09/23 Management Advisor Relationship Specialty Start Date End Date Khoa Bowles MD [address] [place] [address] PCP - General Family Medicine 04/08/23 Khoa Bowles MD [address] [place] [address] (Fax) PCP - ACO Reach 12/31/23 Madison Wood MD [address] [place] [phone] Referring Physician Urology 12/09/23 Tiffanie Enrique DPM [address] [place], [place] [phone] Referring Physician Podiatry 12/09/23 Management Advisor Relationship Specialty Start Date End Date Khoa Bowles MD (Fax) PCP - General Family Medicine 04/08/23 Khoa Bowles MD [address] [place] [address] (Fax) PCP - ACO Reach 12/31/23 Madison Wood MD [address] [place] [phone] Referring Physician Urology 12/09/23 Tiffanie Enrique DPM [address] [place] [address] Referring Physician Podiatry 12/09/23 Management Advisor Relationship Specialty Start Date End Date Khoa Bowles MD [address] [place] [address] (Fax) PCP - ACO Reach 12/31/23 Madison Wood MD [address] [place] [address] Referring Physician Urology 12/09/23 Tiffanie Enrique DPM [address] [address] Referring Physician Podiatry 12/09/23 Management Advisor Relationship Specialty Start Date End Date Khoa Bowles MD [address] [place] [address] (Fax) PCP - ACO Reach 12/31/23 Madison Wood MD [address] [place] [address] Referring Physician Urology 12/09/23 Tiffanie Enrique DPM [address] [place] [address] Referring Physician Podiatry 12/09/23 Management Advisor Relationship Specialty Start Date End Date Khoa Bowles MD [address] [place] [address] (Fax) PCP - ACO Reach 12/31/23 Madison Wood MD [address] [place] [address] Referring Physician Urology 12/09/23 Tiffanie Enrique DPM [address] [place] [address] Referring Physician Podiatry 12/09/23 Management Advisor Relationship Specialty Start Date End Date Khoa Bowles MD [address] [place] [address] PCP - General Family Medicine 04/08/23 Khoa Bowles MD [address] [facility] [place] [address] (Fax) PCP - ACO Reach 12/31/23 Madison Wood MD [address] [place] [address] Referring Physician Urology 12/09/23 Tiffanie Enrique DPM [address] [place] [address] Referring Physician Podiatry 12/09/23 Management Advisor Relationship Specialty Start Date End Date Khoa Bowles MD [address] [place] [address] (Fax) PCP - ACO Reach 12/31/23 Madison Wood MD [address] [place] [address] Referring Physician Urology 12/09/23 Tiffanie Enrique DPM [address] [place] [address] Referring Physician Podiatry 12/09/23 Management Advisor Relationship Specialty Start Date End Date Khoa Bowles MD [address] [place] [address] (Fax) PCP - ACO Reach 12/31/23 Madison Wood MD [address] [place] [address] Referring Physician Urology 12/09/23 Tiffanie Enrique DPM [address] [place] [address] Referring Physician Podiatry 12/09/23 Management Advisor Relationship Specialty Start Date End Date Khoa Bowles MD [address] [place] [address] (Fax) PCP - ACO Reach 12/31/23 Madison Wood MD [address] [place] [address] Referring Physician Urology 12/09/23 Tiffanie Enrique DPM [address] [place] [address] Referring Physician Podiatry 12/09/23 Management Advisor Relationship Specialty Start Date End Date Khoa Bowles MD [address] [address] (Fax) PCP - ACO Reach 12/31/23 Madison Wood MD [address] [place] [address] Referring Physician Urology 12/09/23 Tiffanie Enrique DPM [address] [place] [address] Referring Physician Podiatry 12/09/23 Management Advisor Relationship Specialty Start Date End Date Khoa Bowles MD [address] [place] [address] (Fax) PCP - ACO Reach 12/31/23 Khoa Bowles MD [address] [place] [address] (Fax) PCP - General Family Medicine 12/27/24 Madison Wood MD [address] [place] [address] Referring Physician Urology 12/09/23 Tiffanie Enrique DPM [address] [place] [address] Referring Physician Podiatry 12/09/23 Management Advisor Relationship Specialty Start Date End Date Khoa Bowles MD [address] [place] [address] (Fax) PCP - ACO Reach 12/31/23 Khoa Bowles MD [address] [place] [address] (Fax) PCP - General Family Medicine 12/27/24 Madison Wood MD [address] [place] [address] Referring Physician Urology 12/09/23 Tiffanie Enrique DPM [address] [address] Referring Physician Podiatry 12/09/23 Management Advisor Relationship Specialty Start Date End Date Khoa Bowles MD [address] [place] [address] (Fax) PCP - ACO Reach 12/31/23 Khoa Bowles MD [address] [facility] [address] [place] [address] PCP - General Family Medicine 12/27/24 Madison Wood MD [address] [place] [address] Referring Physician Urology 12/09/23 Tiffanie Enrique DPM [address] [place] [address] Referring Physician Podiatry 12/09/23 Management Advisor Relationship Specialty Start Date End Date Khoa Bowles MD [address] [address] PCP - ACO Reach 12/31/23 Khoa Bowles MD [address] [address] PCP - General Family Medicine 12/27/24 Madison Wood MD [address] [place] [address] Referring Physician Urology 12/09/23 Tiffanie Enrique DPM [address] [place] [address] Referring Physician Podiatry 12/09/23 Larissa Leavitt, CORDELL Registered Nurse Family Medicine 02/13/25 Management Advisor Relationship Specialty Start Date End Date Khoa Bowles MD [address] [place] [address] PCP - ACO Reach 12/31/23 Khoa Bowles MD [address] [facility] 100 [place] [address] (Fax) PCP - General Family Medicine 12/27/24 Madison Wood MD [address] [place] [address] Referring Physician Urology 12/09/23 Tiffanie Enrique DPM [address] [place] [address] Referring Physician Podiatry 12/09/23 Larissa Leavitt, CORDELL Registered Nurse Family Medicine 02/13/25 Management Advisor Relationship Specialty Start Date End Date Khoa Bowles MD [address] [address] (Fax) PCP - ACO Reach 12/31/23 Khoa Bowles MD [address] [address] (Fax) PCP - General Family Medicine 12/27/24 Madison Wood MD [address] [place] [address] Referring Physician Urology 12/09/23 Tiffanie Enrique DPM [address] [place] [address] Referring Physician Podiatry 12/09/23 Larissa Leavitt RN Registered Nurse Family Medicine 02/13/25 Management Advisor Relationship Specialty Start Date End Date Khoa Bowles MD [address] [address] (Fax) PCP - ACO Reach 12/31/23 Khoa Bowles MD [address] [place] [address] (Fax) PCP - General Family Medicine 12/27/24 Madison Wood MD [address] [place] [address] Referring Physician Urology 12/09/23 Tiffanie Enrique DPWei [address] [place] [address] Referring Physician Podiatry 12/09/23 Larissa Leavitt RN Registered Nurse Family Medicine 02/13/25 Management Advisor Relationship Specialty Start Date End Date Khoa Bowles MD [address] [place] [address] (Fax) PCP - ACO Reach 12/31/23 Khoa Bowles MD [address] [place] [address] (Fax) PCP - General Family Medicine 12/27/24 Madison Wood MD [address] [place] [address] Referring Physician Urology 12/09/23 Tiffanie Enrique DPWei [address] [place] [address] Referring Physician Podiatry 12/09/23 Larissa Leavitt, CORDELL [address] [place] [address] Registered Nurse Family Medicine 02/13/25 Management Advisor Relationship Specialty Start Date End Date Khoa Bowles MD [address] [place] [address] (Fax) PCP - ACO Reach 12/31/23 Khoa Bowles MD [address] [place] [address] (Fax) PCP - General Family Medicine 12/27/24 Madison Wood MD [address] [place] [address] Referring Physician Urology 12/09/23 Tiffanie Enrique DPM [address] [place] [address] Referring Physician Podiatry 12/09/23 Larissa Leavitt, RN [address] [place] [address] Registered Nurse Family Medicine 02/13/25 Management Advisor Relationship Specialty Start Date End Date Khoa Bowles MD [address] [place] [address] (Fax) PCP - ACO Reach 12/31/23 Khoa Bowles MD [address] [place] [address] (Fax) PCP - General Family Medicine 12/27/24 Madison Wood MD [address] [place] [address] Referring Physician Urology 12/09/23 Tiffanie Enrique DPM [address] [place] [address] Referring Physician Podiatry 12/09/23 Larissa Leavtit RN [address] [place] [address] Registered Nurse Family Medicine 02/13/25 Management Advisor Relationship Specialty Start Date End Date Khoa Bowles MD [address] [place] [address] PCP - ACO Reach 12/31/23 Khoa Bowles MD [address] [place] [address] PCP - General Family Medicine 12/27/24 Madison Wood MD [address] [place] [address] Referring Physician Urology 12/09/23 Tiffanie Enrique DPM [address] [place] [address] Referring Physician Podiatry 12/09/23 Larissa Leavitt RN [address] [facility] [[email or web address] [address] [place] [address] Registered Nurse Family Medicine 02/13/25 Callie Mora MD [address] [facility] [place] [address] Referring Physician General Surgery 05/07/25 Skinny White MD [address] [place] [address] Referring Physician Ophthalmology 05/07/25 Shani Mohan DO [address] [phone] Referring Physician Neurology 05/07/25 Team Status: Inactive Member Role Status Dates Khoa Bowles MD Primary Care Provider Active Start: April 23, 2025 End: April 23, 2025 Madison Wood MD Attending Provider Active St art: April 23, 2025 End: April 23, 2025 Team Status: Inactive Member Role Status Dates Madison Wood MD Attending Provider Active St art: May 22, 2025 End: May 22, 2025 Management Advisor Relationship Specialty Start Date End Date Khoa Bowles MD [address] [place] [address] PCP - ACO Reach 12/31/23 Khoa Bowles MD [address] [facility] 100 [place] [address] PCP - General Family Medicine 12/27/24 Madison oWod MD [address] [place], [place] [phone] Referring Physician Urology 12/09/23 Tiffanie Enrique DPM [address] [place] [address] Referring Physician Podiatry 12/09/23 Larissa Leavitt, CORDELL [address] [address] Registered Nurse Family Medicine 02/13/25 Callie Mora MD [address] [facility] [place] [address] Referring Physician General Surgery 05/07/25 Skinny White MD [address] [place] [address] Referring Physician Ophthalmology 05/07/25 Shani Mohan DO 703 [facility] [address] [place] [address] Referring Physician Neurology 05/07/25 Management Advisor Relationship Specialty Start Date End Date Khoa Bowles MD [address] [place] [address] PCP - ACO Reach 12/31/23 Khoa Bowles MD [address] [place] [address] PCP - General Family Medicine 12/27/24 Madison Wood MD [address] [place] [address] Referring Physician Urology 12/09/23 Tiffanie Enrique DPM [address] [place] [address] Referring Physician Podiatry 12/09/23 Larissa Leavitt, RN [address] [facility] 230 [place] [address] Registered Nurse Family Medicine 02/13/25 Callie Mora MD 595 [place] [address] Referring Physician General Surgery 05/07/25 Skinny White MD [address] [place] [address] Referring Physician Ophthalmology 05/07/25 Shani Mohan DO 703 [facility] [address] [place] [address] Referring Physician Neurology 05/07/25 Management Advisor Relationship Specialty Start Date End Date Khoa Bowles MD [address] [place] [address] PCP - ACO Reach 12/31/23 Khoa Bowles MD [address] [place] [address] PCP - General Family Medicine 12/27/24 Madison Wood MD [address] [place] [address] Referring Physician Urology 12/09/23 Tiffanie Enrique DPM [address] [place] [address] Referring Physician Podiatry 12/09/23 Larissa Leavitt, RN [address] [address] Registered Nurse Family Medicine 02/13/25 Callie Mora MD [address] [place] [address] Referring Physician General Surgery 05/07/25 Skinny White MD [address] [place] [address] Referring Physician Ophthalmology 05/07/25 Shani Mohan DO [address] [phone] Referring Physician Neurology 05/07/25 Team Status: Active Member Role Status Dates NON STAFF Primary Care Provider Active Team Status: Inactive Member Role Status Dates Madison Drew DO Emergency Provider Active St art: July 13, 2025 End: July 13, 2025 NON STAFF Primary Care Provider Active Start: July 13, 2025 End: July 13, 2025 Management Advisor Relationship Specialty Start Date End Date Khoa Bowles MD [address] [place] [address] (Fax) PCP - ACO Reach 12/31/23 Khoa Bowles MD [address] [facility] 100 [place] [address] PCP - General Family Medicine 12/27/24 Madison Wood MD [address] [place] [address] Referring Physician Urology 12/09/23 Tiffanie Enrique DPM [address] [place] [address] Referring Physician Podiatry 12/09/23 Larissa Leavitt, RN [address] [facility] 230 [place] [address] Registered Nurse Family Medicine 02/13/25 Callie Mora MD [address] [place] [address] Referring Physician General Surgery 05/07/25 Skinny White MD [address] [place] [address] Referring Physician Ophthalmology 05/07/25 Shani Mohan DO 703 [facility] [address] [place] [phone] Referring Physician Neurology 05/07/25 Management Advisor Relationship Specialty Start Date End Date Khoa Bowles MD [address] [place] [address] (Fax) PCP - ACO Reach 12/31/23 Khoa Bowles MD [address] [place] [address] PCP - General Family Medicine 12/27/24 Madison Wood MD [address] [place] [address] Referring Physician Urology 12/09/23 Tiffanie Enrique DPM [address] [place] [address] Referring Physician Podiatry 12/09/23 Larissa Leavitt, CORDELL [address] [facility] [address] [place] [phone] Registered Nurse Family Medicine 02/13/25 Callie Mora MD [address] [place] [address] Referring Physician General Surgery 05/07/25 Skinny White MD [facility] [place] [address] Referring Physician Ophthalmology 05/07/25 Shani Mohan DO [address] [phone] Referring Physician Neurology 05/07/25 (unrecognized sect ion and content) No Status Records FoundNo Status Records FoundNo Status Records FoundNo Status Records FoundNo Status Records FoundNo Status Records Found INFORMATION SOURCE (unrecogn ized section and content) DATE CREATED AUTHOR 02/14/2023 [facility] DATE CREATED AUTHOR AUTHOR'S ORGANIZ ATION 06/10/2025 Sal Maykel [facility] DATE CREATED AUTHOR AUTHOR'S ORGANIZ ATION 06/30/2025 [facility] DATE CREATED AUTHOR AUTHOR'S ORGANIZ ATION 07/08/2025 [facility] DATE CREATED AUTHOR AUTHOR'S ORGANIZ ATION 07/15/2025 [facility] DATE CREATED AUTHOR AUTHOR'S ORGANIZ ATION 07/21/2025 [facility] EPIC Reason for Visit (unrecogniz [...] ankle, Brace is being made. PCP: Dr. Jelena HERNANDEZ 10/31/2024, A1C: 6.6, BS: 131, SS: 12 Reason Comments Follow-up Reason Comments Nail care Manuel Balderas is a 75 y.o. male who presents for Nail care. Patient relates he started Pain management with [facility] for left ankle. PCP: Dr. Jelena HERNANDEZ 10/31/2025 A1C: 6.6, BS: 143, SS: 12 Reason Comments Hypertension Hyperlipidemia Diabetes Reason Comments Annual Exam Reason Comments Nail care Manuel Balderas is a 75 y.o. male who presents for Nail care. Patient relates he started Pain management with [facility] for left ankle. PCP: Dr. Jelena HERNANDEZ 05/07/2025 A1C: 6.6, BS: 150, SS: 12. Reason Comments Follow-up FOR RECORDS PERTAINING TO [...] BE BASED ON THE PRIMARY CLINICAL RECORDS. [facility] [employer] [facility]. provides no warranty or guarantee of the accuracy or completeness of information in this document.
== END 2025-07-23 13:58 | disposition home or self-care (01) ==
LOC: CARD 13:59
PROVIDERS: PCP Family Medicine; Visit Provider Family Medicine
DX: R55 Syncope and collapse (principal); I45.10 Unspecified right bundle-branch block
CPT/HCPCS: 93242

== ENCOUNTER 2025-09-25 07:46 | Outpatient (OUT) | payer MEDICARE, SELFPAY ==
--- OUTSIDE RECORDS SUMMARY | 2025-09-25 07:51 | XMS_ITS | Clinical Summary ---
Author Organization [facility] Address [address] [place] [address] Care Team Providers Care Senior Biostatistician/Group Leader Name Role Phone Unavailable Primary Care Provider Unavailabl e Allergies Active AllergyReactionsCriticalityNoted DateCommentsMeperidine (Pf)Other: See Bxqcwdeg82/03/2014 shakes Medications MedicationSigDispense QuantityRefillsLast FilledStart DateEnd DateStatus Losartan-Hydrochlorothiazide 100-12.5 mg per tablet Take 1 tablet by mouth once daily.Active metoprolol tartrate, short acting, 50 mg tablet Take 50 mg by mouth twice daily.Active gemfibrozil 600 mg tablet Take 600 mg by mouth twice daily before meals.Active doxycycline hyclate 100 mg capsule Take 100 mg by mouth once daily.Active glipiZIDE 10 mg tablet Take 10 mg by mouth twice daily before meals.Active CITRIC ACID/SODIUM CITRATE (CYTRA-2 ORAL) Take 1 oz by mouth three times daily.Active oxybutynin 5 mg tablet Take 5 mg by mouth three times daily.Active MTH/ME BLUE/SOD PHOS/PHEN/HYOS (URIBEL ORAL) Take 1 capsule by mouth once daily.Active FERROUS SULFATE, DRIED (IRON, DRIED, ORAL) Take 65 mg by mouth once daily.Active MULTIVIT &MINERALS/FERROUS FUM (MULTI VITAMIN ORAL) Take 1 tablet by mouth once daily.Active oxyCODONE-acetaminophen (PERCOCET) 5-325 mg tablet Take 1 tablet by mouth every 4 hours as needed. Do not exceed 3 grams of acetaminophen in 24hours from all sources. 30 tablet ctive docusate sodium 100 mg capsule Take 1 capsule by mouth twice daily. Stop taking if you have frequent loose stool or diarrhea. 60 capsule ctive tamsulosin (FLOMAX) 0.4 mg cp24 Take 1 capsule by mouth daily at bedtime. 20 capsule ctive tamsulosin 0.4 mg cp24 Take 1 capsule by mouth daily at bedtime. 90 capsule ctive hydrochlorothiazide 25 mg tablet Indications:Calculus of kidney,HypercalciuriaTake 1 tablet by mouth once daily. hctz 25 mg once daily, approximately 12 hr after his losartin/hctz 90 tablet ctive allopurinol 100 mg tablet Indications:Calculus of kidney,HyperuricuriaTake 1 tablet by mouth once daily. 90 tablet ctive Active Problems ProblemNoted DateDiagnosed DateCalculus of rbpvvn8202/01/2014Kidney stone 02/01/20140111Vsevgsrndcnkbr33/03/2014Unspecified essential aqfrcczewhsf93/03/2014 BMI 40.0-44.9, adult02/01/2014Sleep apnea02/01/2014Flank pain02/01/2014 Immunizations ImmunizationAdministration DatesNext Duepneumococcal polysaccharide (PPV23) vaccine, 23 valent (PNEUMOVAX 23)02/22/2012 Social History Tobacco UseTypesPacks/DayYears UsedDateSmoking Tobacco: NeverSmokeless Tobacco: NeverAlcohol UseStandard Drinks/WeekCommentsNo0 (1 standard drink = 0.6 oz pure alcohol)Sex and Gender InformationValueDate RecordedSex Assigned at BirthNot on fileLegal WfvMyse3811/17/2013 10:25 AM ESTGender IdentityNot on fileSexual OrientationNot on fileOccupationIndustryJob Start DateJob End Datemill rightNot on fileNot on fileNot on file Last Filed Vital Signs Vital SignReadingTime TakenCommentsBlood Rhkkudbj887/7705 10:30 AM EDT Dlqyc8194 10:30 AM IJQAzrfhpechvf09.4 ??C (99.4 ??F)03/06/2014 10:30 AM EDTRespiratory Raqi607602/23/2014 1:25 PM EDTOxygen Mogappbbnl12%02/23/2014 1:25 PM EDTInhaled Oxygen Concentration--Ejcrec954.1 kg (328 lb 12.8 oz)03/06/2014 10:30 AM PTEEmnlns682.4 cm (6' 1 )03/06/2014 10:30 AM EDTBody Mass Index43.38 03/06/2014 10:30 AM EDT Plan of Treatment Health MaintenanceDue DateLast DoneCommentsAnxiety Alnjdghyz94/30/1968Depression Ncfffuxdr00/30/1968Hepatitis C Ojotpcebx19/30/1968DTaP,Tdap,Td Vaccine (1 - Tdap)1969Lipid Ujuwtukqf61/30/1985CT Ygoxpoxrdliz80/30/1995Cologuard (FIT-DNA)03/30/19956855Bjqkelbsqsr43/30/1995Colorectal Cancer Gfkbhrtep72/30/1995 Fecal Occult Blood03/30/19958983Nkiqgnjblyjna75/30/1995Shingrix Vaccine (1 of 2) 2000Pneumococcal Vaccine: 50+ (2 of 2 - PCV)Diabetes Dkcomizbq34, 02/21/2014, 02/01/2014dvance Directive Dqrqzfdomu76/01/2025RSV Vaccine (1 - 1-dose 75+ series)2025ovid-19 Vaccine (1 - 2024- season)2025Influenza Vaccine (#1)2025 Medical Devices ImplantedTypeAreaManufacturerDevice IdentifierShelf Expiration DateModel / Serial / JfxQrd-Ke-O-Kind Implant - [id number] Implanted:Qty: [facility]21/2014 [facility] SCI[facility] [id number] / / Description:[id number] PERCUFLEX STENT Procedures Procedure NamePriorityDate/TimeAssociated DiagnosisCommentsBASIC METABOLIC PANEL Lwdrffx0002/22/2014 12:44 AM EDT from Last 3 Months or Most Recently Relevant to Health Maintenance Results * (ABNORMAL) BASIC METABOLIC PNL (02/22/2014 12:44 AM EDT)ComponentValueRef RangeTest MethodAnalysis TimePerformed AtPathologist QmninuhmkUipptls852(H)65 - 100 mg/dLPROM[facility] RBFEZRPBUXDKS9432 - 25 mg/dLPROMEDICA FLOWER [facility] MAIN LABORATORYCreatinine1.120.70 - 1.40 mg/dLE[facility] Xlzfbj512408 - 146 mmol/LCGAL[facility] LABORATORYPotassium3.83.5 - 5.0 mmol/LCGALION H[facility]PITAL [facility] JAYPUVWIFQLguhgtgl99408 - 110 mmol/LC[facility] KZDNVMFYEZLL21968 - 32 mmol/LC[facility] LABORATORYAnion Tfc015 - 15 mmol/LCGAL[facility]OSPITAL [facility]IN LABORATORYCalcium8.58.5 - 10.5 mg/dL [facility] LABORATORYSpecimen (Source)Anatomical Location / LateralityCollection Method / VolumeCollection TimeReceived TimeBlood specimen (specimen)BLOOD SPECIMEN / Grqdloy4902/22/2014 12:44 AM EDT02/22/2014 12:45 AM EDT Narrative Authorizing ProviderResult TypeResult StatusBurke Clemens MDLABORATORYFinal ResultPerforming OrganizationAddressCity/State/ZIP CodePhone Number [facility] [address] [place] [address] from Last 3 Months or Most Recently Relevant to Health Maintenance Insurance Advance Directives TypeDate RecordedPatient RepresentativeExplanationAdvance Directive(s)02/09/2014 11:20 AM
--- OUTSIDE RECORDS SUMMARY | 2025-09-25 07:52 | XMS_ITS | Encounter Summary ---
Author Organization [facility] Address [address] [place] [address] Care Team Providers Care Bowling Alley Operator Name Role Phone Jude Beach MD Unavailable [phone] Tiffanie Smyth DPM Unavailable [phone] Khoa Godinez MD Unavailable [phone] Khoa Godinez MD Primary Care Provider Larissa Leavitt RN Unavailable [phone] Callie Mora MD Unavailable [phone] Skinny White MD Unavailable [phone] Shani Mohan DO Unavailable [phone] Encounter Details DateTypeDepartmentCare Team (Latest Contact Info)Qqgdjbkwyla34/19/2025Telephone [facility] [place] [address] [facility] [address] [place] [address] Khoa Godinez MD 112 [facility] [address] [place] [address] Social History Tobacco UseTypesPacks/DayYears UsedDateSmoking Tobacco: NeverAlcohol UseStandard Drinks/WeekCommentsNever0 (1 standard drink = 0.6 oz pure alcohol)Caffeine intake: [id number] Health LiteracyAnswerDate RecordedHow often do you need to have someone help you when you read instructions, pamphlets, or other written material from your doctor or pharmacy?Never06/18/2025Social Connection and Isolation PanelAnswerDate RecordedIn a typical week, how many times do you talk on the phone with family, friends, or neighbors?Never06/18/2025How often do you get together with friends or relatives?Once a week06/18/2025How often do you attend muslim or bahai services?More than 4 times per year06/18/2025Do you belong to any clubs or organizations such as muslim groups, unions, fraternal or athletic groups, or school groups?No06/18/2025How often do you attend meetings of the clubs or organizations you belong to?Never06/18/2025re you , , , , never , or living with a partner? 06/18/2025UDIT-CAnswerDate RecordedQ1: How often do you have a drink containing alcohol?Never06/18/2025Q2: How many drinks containing alcohol do you have on a typical day when you are drinking?Patient does not drink06/18/2025Q3: How often do you have six or more drinks on one occasion?Never06/18/2025Overall Financial Resource Strain (CARDIA)AnswerDate RecordedHow hard is it for you to pay for the very basics like food, housing, medical care, and heating?Not hard at all 06/18/2025PHQ-2AnswerDate RecordedPatient Health Questionnaire-2 Score0 05/07/2025[facility] [place] of Occupational Health - Occupational Stress QuestionnaireAnswerDate RecordedDo you feel stress - tense, restless, nervous, or anxious, or unable to sleep at night because yourmind is troubled all the time - these days?Not at all06/18/2025Exercise Vital SignAnswerDate RecordedOn average, how many days per week do you engage in moderate to strenuous exercise (like a brisk walk)?4 days06/18/2025On average, how many minutes do you engage in exercise at this level?10 min06/18/2025Hunger Vital SignAnswerDate Recorded Within the past 12 months, you worried that your food would run out before you got the money to buymore.Never true06/18/2025Within the past 12 months, the food you bought just didn't last and you didn't have money to get more.Never true 06/18/2025PRAPARE - TransportationAnswerDate RecordedIn the past 12 months, has lack of transportation kept you from medical appointments or from getting medications?No06/18/2025In the past 12 months, has lack of transportation kept you from meetings, work, or from getting things needed for daily living?No 06/18/2025Housing Stability Vital SignAnswerDate RecordedIn the last 12 months, was there a time when you were not able to pay the mortgage or rent on time?No 06/18/2025In the past 12 months, how many times have you moved where you were living?t any time in the past 12 months, were you homeless or living in a usp (including now)?No06/18/2025Sex and Gender InformationValueDate RecordedSex Assigned at BirthNot on fileLegal TpnSggs3501/13/2023 7:09 PM EDT Gender IdentityNot on fileSexual OrientationNot on fileOccupationIndustryJob Start DateJob End DateRetiredNot on fileNot on fileNot on filedocumented as of this encounter Miscellaneous Notes * Telephone Encounter - Khoa Godinez MD - 09/24/2025 12:19 PM EST Created in error documented in this encounter Plan of Treatment DateTypeDepartmentCare Team (Latest Contact Info)Jbhyjdeneda51/11/2025 10:45 AM ESTProcedure Visit [facility] [address] [facility] [place] [address] Tiffanie Smyth, DPM [address] [place], [place] [address] 10/22/2025 2:30 PM ESTOffice Visit NOMPatrick [facility] [address] Family Medicine [address] [place] [address] Khoa Godinez MD 112 [facility] [address] [place] [address] (Fax) documented as of this encounter Visit Diagnoses Not on filedocumented in this encounter Additional Health Concerns AssessmentNoted TimePHQ-9 Depression Total Score: 10:00 AM EDT documented as of this encounter Care Teams Team MemberRelationshipSpecialtyStart DateEnd Date Khoa Godinez MD [address] [place] [address] (Fax) PCP - ACO Reach12/31/23 Khoa Godinez MD [address] [place] [address] PCP - GeneralFamily Medicine12/27/24 Jude Beach MD [address] [place] [address] Referring PhysicianUrolog12/09/23 Tiffanie Smyth DPM [address] [place] [address] Referring PhysicianPodiatr12/09/23 Larissa Leavitt, CORDELL [address] [facility] 230 [place] [address] Registered NurseFamily Medicine02/13/25 Callie Mora MD [address] [place] [address] Referring PhysicianGeneral Surgery05/07/25 Skinny White MD [address] [place], [place] [address] Referring PhysicianOphthalmology05/07/25 Shani Mohan DO [address] [address] Referring PhysicianNeurology05/07/25documented as of this encounter
--- OUTSIDE RECORDS SUMMARY | 2025-09-25 07:52 | XMS_ITS | Clinical Summary ---
Author Organization [employer] tem Address [id number] [address] [place] [address] Care Team Providers Care Executive Sales Manager Name Role Phone Khoa Godinez MD Primary Care Provider [phone] Allergies Active AllergyReactionsCriticalityNoted KrqoVfaeqfwzSfaddodksq81/08/2018 Medications MedicationSigDispense QuantityRefillsLast FilledStart DateEnd DateStatus losartan-hydrochlorothiazide (HYZAAR) 100-12.5 mg per tablet Take 1 tablet by mouth in the morning.Active metoprolol tartrate (LOPRESSOR) 25 mg tablet Take 2 tablets (50 mg total) by mouth in the morning and 2 tablets (50 mg total) before bedtime.Active gemfibrozil (LOPID) 600 mg tablet Take 1 tablet (600 mg total) by mouth in the morning and 1 tablet (600 mg total) in the evening. Take before meals.Active glipiZIDE (GLUCOTROL) 10 mg tablet Take 1 tablet (10 mg total) by mouth in the morning and 1 tablet (10 mg total) in the evening. Takebefore meals.Active metFORMIN (GLUCOPHAGE) 500 mg tablet Take 1 tablet (500 mg total) by mouth in the morning and 1 tablet (500 mg total) in the evening. Take with meals.Active SODIUM BICARBONATE ORAL Take 650 mg by mouth in the morning and 650 mg at noon and 650 mg before bedtime.Active tamsulosin (FLOMAX) 0.4 mg capsule,extended release 24hr Take 1 capsule (0.4 mg total) by mouth nightly.Active allopurinol (ZYLOPRIM) 300 mg tablet Take 1 tablet (300 mg total) by mouth in the morning.Active hydroCHLOROthiazide (HYDRODIURIL) 25 mg tablet Take 1 tablet (25 mg total) by mouth daily.Active gabapentin (NEURONTIN) 400 mg capsule Take 1 capsule (400 mg total) by mouth 3 (three) times a day.Active FA/MV,CA,IRON,MIN/LYCOPENE/LUT (MULTIVITAL ORAL) Take by mouth.Active biotin 10,000 mcg capsule Take by mouth.Active doxycycline (DORYX) 100 MG EC tablet Take 1 tablet (100 mg total) by mouth in the morning and 1 tablet (100 mg total) before bedtime.Active aspirin 81 mg Take 1 tablet (81 mg total) by mouth in the morning. Taking 4 daily.Active aspirin 325 mg tablet Take 1 tablet (325 mg total) by mouth in the morning.Active dapagliflozin propanediol (FARXIGA) 10 mg tablet Take 1 tablet (10 mg total) by mouth in the morning.Active DULoxetine (CYMBALTA) 60 mg capsule Take 1 capsule (60 mg total) by mouth in the morning and 1 capsule (60 mg total) before bedtime.Active fenofibrate (LOFIBRA) 160 mg tablet Take 1 tablet (160 mg total) by mouth in the morning.Active spironolactone (ALDACTONE) 25 mg tablet Take 1 tablet (25 mg total) by mouth in the morning and 1 tablet (25 mg total) in the evening. Takewith meals.Active solifenacin (VESICARE) 10 mg tablet Take 0.5 tablets (5 mg total) by mouth in the morning.Active insulin glargine,hum.rec.anlog (MADY CONCEPCION U-100 INSULIN SUBQ) Inject 100 Units/day under the skin in the morning and 100 Units/day before bedtime.Active meclizine (ANTIVERT) 25 mg tablet Chew 1 tablet (25 mg total) and swallow 3 (three) times a day as needed for dizziness.Active Active Problems ProblemNoted DateDiagnosed DateVaricose veins of bilateral lower extremities with pain03/09/2024 Assessment & Plan (06/01/2024 1:28 PM EDT): [...] muscular thrombosis. He has been on aspirin. Nopain or swelling. I discussed with him if [...] Venous duplex ultrasound. Lipodermatosclerosis of both lower pykorehwuef12/09/2024 Assessment & Plan (03/09/2024 10:35 AM EDT): Continue compression stockings. Venous duplex ultrasound. Encounters DateTypeDepartmentCare TvatKryrvxdswbx53/25/2025 2:30 PM EDTOffice [place] [address] Precious Maya, MONTESSORI TODDLER TEACHER-FIELD ARTILLERY RADAR OPERATOR Venous insufficiency of both lower extremities (Primary Dx)07/25/2025Travel 07/24/20253122Invqzh36/05/2025 1:22 PM EDT - 07/06/2025 11:59 PM EDTHospital Encounter [facility] [address] [place] [address] Claudication Discharge Disposition: Home07/06/2025 1:18 PM EDT - 07/06/2025 1:21 PM EDT Hospital Encounter [facility] [address] [place] [place] [address] Claudication Discharge Disposition: Home07/06/20257000Ggkxcs86/28/2025 10:15 AM EDTOffice Visit [facility] [address] [place] [address] Precious Maya APRN-FIDEL Claudication (Primary Dx); Varicose veins of bilateral lower extremities with pain; Lipodermatosclerosis of both lower ahlsufbwknv36/27/2025 2:49 PM EDT - 06/27/2025 11:59 PM EDTHospital Encounter [facility] [address] [place] [address] Callie Mora MD Varicose veins of bilateral lower extremities with pain; Lipodermatosclerosis of both lower extremities Discharge Disposition: Home06/27/2025Travelfrom Last 3 Months Social History Tobacco UseTypesPacks/DayYears UsedDateSmoking Tobacco: UnknownAlcohol Use Standard Drinks/WeekCommentsDefer0 (1 standard drink = 0.6 oz pure alcohol) ChildcareAnswerDate FdxpqtmiVrlbygzykIjmwnbs95/12/2019EmploymentAnswerDate MitezsvhYotpkyjaoeCeqzglh31/12/2019Hunger ScreeningAnswerDate RecordedWithin the past 12 months we worried whether our food would run out before we got money to buy more.Never True06/28/2025Within the past 12 months the food we bought just didn't last and we didn't have money to get more.Never True06/28/2025Purpose - LifeAnswerDate RecordedPurpose and direction in jvieUlwkwbk60/11/2021ex and Gender InformationValueDate RecordedSex Assigned at BirthNot on fileLegal Sex Male06/06/2015 12:03 PM EDTGender IdentityNot on fileSexual OrientationNot on file Last Filed Vital Signs Vital SignReadingTime TakenCommentsBlood Ndqrmvxo000/6909 2:08 PM EDT Npaku683107/26/2025 2:08 PM EDTTemperature--Respiratory Fnml605012/09/2017 9:20 PM ESTOxygen Actqazxtlt14%07/26/2025 2:08 PM EDTInhaled Oxygen Concentration-- Wcykec205 kg (280 lb)07/26/2025 2:08 PM RJWKxfxgz501.4 cm (6' 1 )07/26/2025 2:08 PM EDTBody Mass Index36.9407/26/2025 2:08 PM EDT Plan of Treatment DateTypeDepartmentCare Team (Latest Contact Info)Rlimsidodjy01/18/2025 3:00 PM ESTOffice Visit [facility] [address] [place] [address] Precious Maya, MONTESSORI TODDLER TEACHER-FIELD ARTILLERY RADAR OPERATOR [address] [address] Health MaintenanceDue DateLast DoneCommentsDepression Dvovycwxo67/30/1962Fall Risk Sivtjprll82/30/2015Zoster (Shingles) Vaccine (2 of 3) RSV ( or age 60+ yrs) (1 - 1-dose 75+ series)2025OVID-19 Vaccine ( - season)/07/2022, 09/26/2021, 01/25/2021, Additional history existsInfluenza Lxfwulu08/, 10/14/2023, 09/03/2022, Additional history existsTobacco Kbmvkzkml46DTaP,Tdap and Td Vaccines (2 - Td or Tdap) Medical Devices Not on file Procedures Procedure NamePriorityDate/TimeAssociated DiagnosisCommentsVASC ARTERIAL DUPLEX LOWER CZYPPYHKPIgbjrxh77/05/2025 2:51 PM EDT Claudication VASC ARTERIAL DOPPLER LOWER LIMITED SINGLE (SHAMIR)Fbncqao3107/06/2025 2:38 PM EDT Claudication VASC VENOUS DUPLEX INSUFFICIENCY LOWER ARVGDVJYSNvmvmmu27/27/2025 4:15 PM EDT Varicose veins of bilateral lower extremities with pain Lipodermatosclerosis of both lower extremities from Last 3 Months Results * Vas art duplex lwr bilateral (07/06/2025 2:51 PM EDT)Anatomical Region LateralityModalityVascularBilateralUltrasoundSpecimen (Source)Anatomical Location / LateralityCollection Method / VolumeCollection TimeReceived Time 07/06/2025 2:58 PM EDT Narrative 07/06/2025 4:31 [...] without significant color flow disturbance. Conclusions: BILATERAL: ??Normal lower extremity arterial duplex examination. ?? Procedure Note Jude Lovell MD - 07/06/2025 [...] Conclusions: BILATERAL: Normal lower extremity arterial duplexexamination. Authorizing ProviderResult TypeResult StatusHeather L Perne MONTESSORI TODDLER TEACHER-CNPCV VASCULAR ORDERABLESFinal Result * Vas art doppler lwr limited single (07/06/2025 2:38 PM EDT)Anatomical Region LateralityModalityVascularN/AUltrasoundSpecimen (Source)Anatomical Location / LateralityCollection Method / VolumeCollection TimeReceived Time07/06/2025 2:55 PM EDT Narrative 07/06/2025 4:32 PM [...] falsely elevated suggesting medial calcinosis; normal lower extremityTBI at rest.Waveform data is consistent with no [...] data is consistentwith no significant arterial obstruction. Authorizing ProviderResult TypeResult StatusHeather L Francesco MONTESSORI TODDLER TEACHER-CNPCV VASCULAR ORDERABLESFinal Result * Vas venous duplex insufficiency lwr bi (06/27/2025 4:15 PM EDT)Anatomical RegionLateralityModalityVascularBilateralUltrasoundSpecimen (Source)Anatomical Location / LateralityCollection Method / VolumeCollection TimeReceived Time 06/27/2025 4:33 PM EDT Narrative 06/28/2025 7:29 AM EDT Previous: History of bilateral lower extremity endovenous ablation. (Right: 05/24/2024, Left: 05/11/2024) History of bilateral deep calf muscle DVT in 2023. Right: Great saphenous vein ablation in the thigh and calf. Non dilated partially compressible deepcalf muscle veins with mixed echogenic intraluminal content. 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 deep Calf veinreflux.Great saphenous, superficial vein reflux. Authorizing ProviderResult TypeResult StatusMohamed Manny Mora [facility] VASCULAR ORDERABLESFinal Result from Last 3 Months Insurance Care Teams Team MemberRelationshipSpecialtyStart DateEnd Khoa Godinez MD [facility]12/09/17
--- OUTSIDE RECORDS SUMMARY | 2025-09-25 07:52 | XMS_ITS | Encounter Summary ---
Author Organization [facility] Address [address] [place] [address] Care Team Providers Care Transitional Studies Instructor Name Role Phone Jude Beach MD Unavailable [phone] Tiffanie Smyth DPM Unavailable [phone] Khoa Godinez MD Unavailable [phone] Khoa Godinez MD Primary Care Provider [phone] Merced Dennis RN Unavailable [phone] Callie Mora MD Unavailable [phone] Skinny White MD Unavailable [phone] Shani Mohan DO Unavailable [phone] Reason for Referral * Imaging (Routine) - AuthorizedSpecialtyDiagnoses / ProceduresReferred By ContactReferred To Contact Diagnoses Ventricular tachycardia (paroxysmal) (HCC) SVT (supraventricular tachycardia) (HCC) Syncope, cardiogenic Right bundle branch block Procedures STRESS TEST Khoa Castelan MD [address] [place] [address] Phone: tel: fax: Referral IDStatusReasonStart DateExpiration DateVisits RequestedVisits [id number]/[id number]/ Encounter Details DateTypeDepartmentCare Team (Latest Contact Info)Qhmjlniojcx41/19/2025Results Follow-Up [facility] [address] Family Medicine 112 [facility] 100 [place] [address] Khoa Godinez MD 112 [facility] 100 [place] [address] Holter monitor Social History Tobacco UseTypesPacks/DayYears UsedDateSmoking Tobacco: NeverAlcohol UseStandard Drinks/WeekCommentsNever0 (1 standard drink = 0.6 oz pure alcohol)Caffeine intake: [id number] Health LiteracyAnswerDate RecordedHow often do you need to have someone help you when you read instructions, pamphlets, or other written material from your doctor or pharmacy?Never06/18/2025Social Connection and Isolation PanelAnswerDate RecordedIn a typical week, how many times do you talk on the phone with family, friends, or neighbors?Never06/18/2025How often do you get together with friends or relatives?Once a week06/18/2025How often do you attend taoism or baptist services?More than 4 times per year06/18/2025Do you belong to any clubs or organizations such as taoism groups, unions, fraternal or athletic groups, or [...] at all 06/18/2025PHQ-2AnswerDate RecordedPatient Health Questionnaire-2 Score0 05/07/2025[facility] [place] of Occupational Health - Occupational Stress QuestionnaireAnswerDate [...] were you homeless or living in a nursing home (including now)?No06/18/2025Sex and Gender InformationValueDate RecordedSex Assigned at BirthNot on fileLegal SswPpyb7601/13/2023 7:09 PM EDT Gender IdentityNot on fileSexual OrientationNot on fileOccupationIndustryJob Start DateJob End DateRetiredNot on fileNot on fileNot on filedocumented as of this encounter Miscellaneous Notes * Addendum Note - Merced Dennis RN - 09/19/2025 4:49 PM ESTAddended by: MERCED DENNIS on: 09/19/2025 04:49 PM Modules accepted: Orders * Telephone Encounter - Merced Dennis RN - 09/19/2025 3:23 PM EST Called pt's NABIL Wheeler, requested call back Called home NABIL chan, requested call back <September 19, 2025, 15:55 - Merced Dennis RN> pt returned call, discussed that PCP reviewed Holter monitor. Discussed last stress test was done in 2018, PCP advised a stress test should be done. Pt states to have the order sent to [facility]. Discussed CM will send this, will put to call Jayme's number to schedule. <September 19, 2025, 16:18 - Merced Dennis RN> faxed order to [facility] and facesheet <September 19, 2025, 16:48 - Merced Dennis RN> Fax sent successfully * Telephone Encounter - Khoa Godinez MD - 09/19/2025 8:22 AM EST I did review his Holter monitor from July. He does have ventricular ectopy that by itself is not a concern. He did have 4 beat ventricular tachycardia which is more concerning as he is already on beta raulito. He also had multiple episodes ofSVT. With all of his other diagnoses and the fact that his last stress test was in 2018, we should proceed with a Lexiscan stress test documented in this encounter Plan of Treatment DateTypeDepartmentCare Team (Latest Contact Info)Nbligwpwaqk32/11/2025 10:45 AM ESTProcedure Visit [facility] [address] [place] [address] Tiffanie Smyth, DPWei [address] [place], [place] [address] 10/22/2025 2:30 PM ESTOffice Visit [facility] [address] [place] [address] [address] [place] [address] Khoa Godinez MD [address] [address] (Fax) NameTypePriorityAssociated DiagnosesOrder ScheduleSTRESS TEST LEXISCANImaging Routine Ventricular tachycardia (paroxysmal) (HCC) SVT (supraventricular tachycardia) (HCC) Syncope, cardiogenic Right bundle branch block Expected: 09/19/2025 (Approximate), Expires: 09/19/2026documented as of this encounter Visit Diagnoses Diagnosis Ventricular tachycardia (paroxysmal) (HCC)- Primary Paroxysmal ventricular tachycardia SVT (supraventricular tachycardia) (HCC) Other specified cardiac dysrhythmias Syncope, cardiogenic Right bundle branch block Type 2 diabetes mellitus with diabetic neuropathic arthropathy, with long-term current use of insulin (HCC) History of arthrodesis Difficulty in walking, not elsewhere classified documented in this encounter Additional Health Concerns AssessmentNoted TimePHQ-9 Depression Total Score: 107 10:00 AM EDT documented as of this encounter Care Teams Team MemberRelationshipSpecialtyStart DateEnd Date Khoa Godinez MD [address] [address] (Fax) PCP - [facility]CO Reach12/31/23 Khoa Godinez MD [address] [address] (Fax) [facility]/27/24 Jude Beach MD [address] [place] [address] Referring PhysicianUrology2 Tiffanie Smyth DPM [address] [place] [address] Referring PhysicianPodiatry2 Merced Dennis, RN [address] [facility] [address] [place] [address] Registered NurseFamily Medicine02/13/25 Callie Mora MD [address] [facility] [place] [address] Referring PhysicianGeneral Surgery05/07/25 Skinny White MD [address] [place] [address] Referring PhysicianOphthalmology05/07/25 Shani Mohan DO [address] [place] [address] [address] [place] [address] Referring PhysicianNeurology05/07/25documented as of this encounter
--- OUTSIDE RECORDS SUMMARY | 2025-09-25 07:52 | XMS_ITS | Clinical Summary ---
Author Organization [facility] Address [address] [place] [address] Care Team Providers Care Manager Vehicle Name Role Phone Jude Beach MD Unavailable [phone] Tiffanie Smyth DPM Unavailable [phone] Khoa Godinez MD Unavailable [phone] Khoa Godinez MD Primary Care Provider [phone] Larissa Leavitt RN Unavailable [phone] Callie Mora MD Unavailable [phone] Skinny White MD Unavailable [phone] Shani Mohan DO Unavailable [phone] Allergies Active AllergyReactionsCriticalityNoted PlfnMfnukubzAysdwanazyo05/23/2025 Other Reaction(s): Unknown Reaction Tiafhzvrat95/03/2014 Other Reaction(s): Other: See Comments moise Meperidine Hcl12/02/2021 Other Reaction(s): moise Abdi XannhrvzmxaxTffdefnr16/13/2023 Medications MedicationSigDispense QuantityRefillsLast FilledStart DateEnd DateStatus aspirin 81 MG EC tablet Take 81 mg by mouth in the morning.Active biotin 07415 MCG tablet Take 1 tablet by mouth in the morning and 1 tablet before bedtime.Active ferrous sulfate 325 (65 Fe) MG tablet Take 325 mg by mouth in the morning. Take with meals.Active Lutein 20 MG tablet 1 (one) time each day at the same time.Active sodium bicarbonate 650 MG tablet Take 3 tablets by mouth in the morning and 3 tablets before bedtime.Active Flomax 0.4 MG 24 hr capsule Take 0.4 mg by mouth in the evening.Active allopurinol (Zyloprim) 300 MG tablet Take 300 mg by mouth Daily4Active VESIcare 10 MG tablet Indications:Overactive BladderTake 10 mg by mouth Daily5Active insulin glargine (Basaglar KwikPen) 100 UNIT/ML pen Indications:Type 2 diabetes mellitus with hyperglycemia, without long-term current use of insulin (HCC)INJECT BID, SLIDING BLOOD GLUCOSE SCALE WITH THE COVERAGE: <70, ZERO AND EAT. 70-150, 10 UNITS. 151-200, 14 UNITS. 201-250, 16 UNITS. 251-300, 18 UNITS. >300, 20 UNITS 15 each 5Active Blood Glucose Monitoring Suppl (Blood Glucose Monitoring 333) device 1 Device continuously AccucheckActive metFORMIN (Glucophage) 1000 MG tablet Indications:Type 2 diabetes mellitus with diabetic microalbuminuria, with long- term current use of insulin (HCC)Take 1 tablet (1,000 mg) by mouth in the morning and 1 tablet (1,000 mg) in the evening. Take with meals. 180 tablet 5Active fenofibrate (Triglide) 160 MG tablet Indications:Mixed hyperlipidemiaTake 1 tablet (160 mg) by mouth Daily 90 tablet 5Active losartan-hydroCHLOROthiazide (Hyzaar) 100-12.5 MG tablet Indications:Primary hypertensionTake 1 tablet by mouth Daily 90 tablet 5Active metoprolol tartrate (Lopressor) 50 MG tablet Indications:Primary hypertensionTake 1 tablet (50 mg) by mouth in the morning and 1 tablet (50 mg) before bedtime. 180 tablet 5Active hydroCHLOROthiazide (HYDRODiuril) 25 MG tablet Indications:Primary hypertensionTake 1 tablet (25 mg) by mouth in the evening 90 tablet 5Active spironolactone (Aldactone) 25 MG tablet Indications:Lymphedema of both lower extremities2 tablets in Am and 1 tablet in PM 270 tablet 5Active doxycycline (Monodox) 100 MG capsule Indications:Chronic cellulitisTake 1 capsule (100 mg) by mouth Daily 90 capsule 506/6Active DULoxetine (Cymbalta) [address] capsule Take 60 mg by mouth in the morning and 60 mg before bedtime.5Active meclizine (Antivert) 25 MG tablet Take 25 mg by mouth 3 (three) times a day as needed for cjawgajxo16/12/2025 Active Misc. Devices misc Indications:Lymphedema of both lower extremities1 each continuously 1 each 5Active pen needle 32G x 6 mm misc Indications:Type 2 diabetes mellitus with diabetic neuropathic arthropathy, with long-term current use of insulin (HCC),Diabetic neuropathic arthropathy (HCC)Use for Injection subcutaneous twice daily 200 each 5Active dapagliflozin (Farxiga) 10 MG Indications:Diabetic nephropathy associated with type 2 diabetes mellitus (HCC) Take 1 tablet (10 mg) by mouth Daily 90 tablet 5Active dapagliflozin (Farxiga) 10 MG Indications:Diabetic nephropathy associated with type 2 diabetes mellitus (HCC) Take 1 tablet (10 mg) by mouth Daily 90 tablet Discontinued(Reorder) Active Problems ProblemNoted DateDiagnosed DateProstate qswdcf6506/30/20251054Oykvjdo06/25/2024 Vjjbxdjulvm33/25/2024Myalgia due to elujqh7106/07/2024Lumbar ptqrohon78/11/2024 Facet arthritis of lumbar wadpvf6504/11/2024DD (degenerative disc disease), fjytgr6804/11/2024adiculopathy, lumbosacral ipnnov3004/11/2024Hypersomnolence 04/11/20242099Acwygdgtmxciyszdj36/11/2024 Overview (04/11/2024): radicular pain into the bilateral [...] L2-3, and L3-4. There were hemangiomas at L2,L3, and L5 vertebral body levels. The cramping in his legs have improved. Spinal stenosis, lumbar region with neurogenic xbrtxixfgmew16/08/2024Elevated PSA07/28/2023ersonal history of kidney yjgbug8207/28/2023enign non-nodular prostatic hyperplasia with lower urinary tract cqyyerig05/12/2023hronic sdguzxtsnh39/12/2023PAP (continuous positive airway pressure) dependence 04/12/2023Type 2 diabetes mellitus with diabetic neuropathic arthropathy, with long-term current use of cclhmau6704/12/2023ifficulty in walking, not elsewhere mwywvvrcrd68/12/9722Mzumpxucftle52/12/2023Heart yethcb5304/12/2023Hypertensive left ventricular hypertrophy, without heart rygkapu5204/12/2023Hyperuricemia 04/12/2023Iron deficiency anemia secondary to inadequate dietary iron intake 04/12/2023Lymphedema of both lower noddjlgrzaz78/12/2023Microalbuminuria 04/12/2023Mixed vuvkkvnjwqszub39/12/2023Morbid obesity due to excess calories 04/12/2023Obstructive sleep apnea gwyazdmd03/12/2023Osteoarthritis of spine with radiculopathy, thoracolumbar sxxabw4304/12/2023Right bundle branch block04/12/2023 Spondylolisthesis, lumbar qqbwmu5204/12/2023Stasis dermatitis of both legs 04/12/20239569Cbwvzhfeiqyorqfh60/12/2023Type 2 diabetes mellitus with foot ulcer (CODE)04/12/2023hronic ulcer of left foot limited to breakdown of skin 08/26/2021eripheral venous ljvfexxfltppk31/05/2845Bthfvqmmyukx84/05/2021Type 2 diabetes mellitus with chronic kidney disease, with long-term current use of cdfkxbu2810/02/2020History of tzpdroefetf59/02/2020 Overview (11/04/2023): Left ankle Thoracic spondylosis without tcagajmmwn96/02/2020Bilateral nonexudative age- related macular vrjpgtcpdumg62/18/2016Polyneuropathy due to type 2 diabetes sogohqzh29/18/2016Diverticulosis of colon08/10/2015FibromyalgiaPeripheral vascular diseaseBack pain Overview (04/11/2024): severe polyneuropathy and polyradiculopathy- likely due to DM. also has chronic back pain. improvedwith meds. Symptoms have improved with gabapentin. he cannot walk for long distances due to fatigueand weakness and is afraid of falling Resolved Problems ProblemNoted DateDiagnosed DateResolved DateObesity (BMI 30-39.9)07/26/2024 04/25/2025Deep vein thrombosis (DVT) of left lower subkztjwa11 Family history of prostate egqixo24Nocturia07/28/2023 11/04/2023Skin ulcer of toe of left foot, limited to breakdown of skin04/12/2023 04/03/2024Type 2 diabetes hlyikjiq26Hyperglycemia due to type 2 diabetes uqeaubup53lass 2 jdtsivq04Lower urinary tract symptoms due to benign prostatic dyimgxlreur53 Qzgiaoyppv35Nonexudative age-related macular degeneration MI 40.0-44.9, adultFlank pain02/01/2014 05/07/20256334Jmykvaes67/07/2025Malaise and rrzyirq8705/07/2025Polyneuropathy 04/25/2025 Overview (04/11/2024): Previously was treated with both zonegran and gabapentin. Zonegran has since been weaned. Diabetes normally well controlled. He continues with lower extremity pain despite, likely related to the underlying polyneuropathy. Gabapentin increase lessened symptoms. Encounters DateTypeDepartmentCare QjecYnunshdoity60/19/2025[facility]phone [facility] [place] [address] [place] [address] Khoa Godinez MD 09/19/2025Results Follow-Up [facility] [place] [address] [place] [address] Khoa Godinez MD Holter jrlatpz4109/18/2025[facility] [address] [place] [address] Larissa Leavitt, CORDELL 08/31/2025Patient Outreach [facility] [address] [place] [address] Larissa Leavitt, CORDELL 08/22/2025Telephone [facility] [address] [place] [address] Srideiv [place] Care Coordination (Nurse Visit)08/21/2025Patient Outreach [facility] [address] [place] [address] Larissa Leavitt, CORDELL 08/16/2025Patient Outreach [facility] [address] [place] [address] Larissa Leavitt, CORDELL 07/19/2025 4:30 PM EDTOffice Visit [place] [address] [place] [address] Khoa Godinez MD Syncope, unspecified syncope type (Primary Dx); Right bundle branch block; Vertigo; Encounter for examination following treatment at hospital; Morbid obesity due to excess calories ([facility]); Lymphedema of both lower /18/2025amboo flowsheet [place] [place] [address] [place] [address] Khoa Godinez MD 07/19/20252710Gvgaij73/15/2025Patient Outreach [facility] [address] [place] [address] Larissa Leavitt RN 07/12/2025 1:00 PM EDTProcedure Visit [facility] [address] [place] [address] Tiffanie Smyth, DPWei Onychomycosis (Primary Dx); Type II or unspecified type diabetes mellitus with neurological manifestations, not 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) (HCC); Acquired pwyhzwgfzlk88/11/2025amboo flowsheet [facility] [address] [place] [address] Tiffanie Smyth DPM 07/12/20257034Aeglko85/10/3438Uyfpuc26/30/2025Orders Only [address] [place] [address] Khoa Godinez MD from Last 3 Months Immunizations ImmunizationAdministration DatesNext DueInfluenza, High Dose Seasonal, Preservative Free10/26/2024,09/04/2019,08/19/2018,09/06/2017,08/17/2016 Influenza, High-dose Seasonal, Quadrivalent, Preservative Free09/03/2022 Influenza, Seasonal, Quadrivalent, Zbqvrqfexj15/14/2023,08/22/2021,08/06/2020 Influenza, Fafwbbvajfk65/20/2021,08/18/2017,07/27/2013Influenza, seasonal, injectable, preservative free08/17/2015Janssen PPGL-LiM-174/27/2021Moderna Bivalent Booster Nqlzpoayfgu96/09/2022Moderna SARS-CoV-2 Booster Vaccination 1Pneumococcal Conjugate PCV 13012/31/2020,08/17/2016Pneumococcal Polysaccharide HTTH574111/06/2016,02/22/2012,07/20/2009Tdap02/16/2025Zoster, live 08/22/2015 Family History Medical HistoryRelationNameCommentsNo Known ProblemsBrotherNo Known Problems DaughterNonHodgkins LymphomaFatherDiabetesMotherMaryJaneNo Known ProblemsSister RelationNameStatusCommentsBrother1 brotherDaughterAlive1 daughterFatherDeceased MotherMaryJaneDeceasedOtherAlivespouseSister3 sisters Social History Tobacco UseTypesPacks/DayYears UsedDateSmoking Tobacco: Never Tobacco Cessation:Counseling Given: Yes Alcohol UseStandard Drinks/WeekCommentsNever0 (1 standard drink = 0.6 oz pure alcohol)Caffeine intake: eemuI5497 Health LiteracyAnswerDate RecordedHow often do you need to have someone help you when you read instructions, pamphlets, or other written material from your doctor or pharmacy?Never06/18/2025Social Connection and Isolation PanelAnswerDate RecordedIn a typical week, how many times do you talk on the phone with family, friends, or neighbors?Never 06/18/2025How often do you get together with friends or relatives?Once a week 06/18/2025How often do you attend zoroastrian or yazdanism services?More than 4 times per year06/18/2025Do you belong to any clubs or organizations such as zoroastrian groups, unions, fraternal or athletic groups, or school groups?No06/18/2025How often do you attend meetings of the clubs or organizations you belong to?Never 06/18/2025re you , , , , never , or living with a partner?Zjvkcmv6706/18/2025UDIT-CAnswerDate RecordedQ1: How often do you have a [...] housing, medical care, and heating?Not hard at all06/18/2025PHQ-2AnswerDate Recorded Patient Health Questionnaire-2 Kfuxm373[facility] [place] of Occup[facility] Health - Occupational Stress QuestionnaireAnswerDate [...] exercise at this level?10 min06/18/2025Hunger Vital SignAnswerDate RecordedWithin the past 12 months, you worried that your food would run out before you got the money to buymore.Never true06/18/2025 Within the past 12 months, the food you bought just didn't last and you didn't have money to get more.Never true06/18/2025PRAPARE - TransportationAnswerDate RecordedIn the past 12 months, has lack of transportation kept you from medical appointments or from getting medications?No06/18/2025In the past 12 months, has lack of transportation kept you from meetings, work, or from getting things needed for daily living?No06/18/2025Housing Stability Vital SignAnswerDate RecordedIn the last 12 months, was there a time when you were not able to pay the mortgage or rent on time?No06/18/2025In the past 12 months, how many times have you moved where you were living?t any time in the past 12 months, were you homeless or living in a detention (including now)?No06/18/2025Sex and Gender InformationValueDate RecordedSex Assigned at BirthNot on fileLegal GcjOowb1701/13/2023 7:09 PM EDTGender IdentityNot on fileSexual OrientationNot on fileOccupationIndustryJob Start DateJob End DateRetiredNot on fileNot on fileNot on file Last Filed Vital Signs Vital SignReadingTime TakenCommentsBlood Qdxptice949/6807 11:04 AM EDT Qmiau8812 4:14 PM EDTTemperature--Respiratory Dudg5857/06/2024 12:34 PM EDTOxygen Fliqngoklv56%07/19/2025 4:14 PM EDTInhaled Oxygen Concentration-- Tdbhnx978 kg (281 lb)07/19/2025 4:14 PM DCZYqybnm888.4 cm (6' 1 )07/19/2025 4:14 PM EDTBody Mass Index37.0707/19/2025 4:14 PM EDT Plan of Treatment DateTypeDepartmentCare Team (Latest Contact Info)Yjdbrrvhujw60/11/2025 10:45 AM ESTProcedure Visit [facility] [address] [place] [address] Tiffanie Smyth DPM [address] [place], [place] [address] 10/22/2025 2:30 PM ESTOffice Visit [address] [facility] [address] [place] [address] Khoa Godinez MD 112 [facility] 100 [place] [address] Health MaintenanceDue DateLast DoneCommentsCT Jqtmbldmmavy1950FIT-DNA 1950FIT1950FOBT1950 0674Zkclhuggdjnmr1950Diabetes: Hemoglobin A1C/, 10/26/2024, 10/19/2023, Additional history exists Diabetes: Urine Protein Gwoabgkqv72/, 11/18/2021, 07/24/2019 Influenza Vaccine (#1)/, 10/14/2023, 09/03/2022, Additional history existsPostponed from 07/02/2025 (Patient Refused)Medicare Annual Wellness (AWV)/05/2025, 04/03/2024, 02/22/2023, Additional history kkymxmNmyegsxmiiq36/17/202608/Colorectal Cancer Himaujjjz69/17/2026 Diabetes: Retinopathy Hvdngimtc12, 02/25/2024, 06/08/2022, Additional history existsPneumococcal Vaccine: 65+ AyckdVktjixfqr86/02/2021, 09/06/2017, 08/17/2016, Additional history existsCOVID-19 VaccineDiscontinued 09/09/2022, 09/25/2021, 01/25/2021, Additional history exists Procedures Procedure NamePriorityDate/TimeAssociated DiagnosisCommentsHOLTER MONITORRoutine 09/18/2025 3:20 PM EST Syncope, unspecified syncope type Right bundle branch block DIABETIC RETINOPATHY SCREENING - OU - BOTH GOVAIjerzpu38/26/2024 9:23 AM EDT HEMOGLOBIN F9LQlhcvcs15/19/2023 4:15 PM EST Type 2 diabetes mellitus with hyperglycemia, without long-term current use of insulin ([facility]) MICROALBUMIN, URINE EKXBFAtaidxp08/18/2022 12:00 PM EST XILEXDSZSQPNmjzjjy43/17/2016 12:00 PM EDT from Last 3 Months or Most Recently Relevant to Health Maintenance Results * Holter monitor (09/18/2025 3:20 PM EST) Narrative Authorizing ProviderResult TypeResult Nicolette Godinez [facility] [place] [facility] PROCEDURESFinal ResultPerforming OrganizationAddressCity/State/ZIP Code Phone Number [address] [address], * Diabetic Retinopathy Screening - OU - Both Eyes (02/25/2024 9:23 AM EDT) Anatomical RegionLateralityModalityHeadOther Narrative Authorizing ProviderResult TypeResult StatusRasheed Truong [facility] PHOTOGRAPHY Final Result * Hemoglobin A1c (10/19/2023 4:15 PM EST)Specimen (Source)Anatomical Location / LateralityCollection Method / VolumeCollection TimeReceived TimeBloodVenous blood specimen / Unknown Narrative Authorizing ProviderResult TypeResult Nicolette Godinez [facility] BLOOD ORDERABLESFinal ResultPerforming OrganizationAddressCity/State/ZIP CodePhone Number [facility]ST * MICROALBUMIN, URINE QUANT (11/18/2021 12:00 PM EST)ComponentValueRef RangeTest MethodAnalysis TimePerformed AtPathologist SignatureGENERIC LEGACY COMPONENT INTERNAL1-1,500ECW NONXML LABSGENERIC LEGACY COMPONENT INTERNAL1,500ECW NONXML LABSSpecimen (Source)Anatomical Location / LateralityCollection Method / VolumeCollection TimeReceived Time11/18/2021 12:00 PM EST Narrative Authorizing ProviderResult TypeResult StatusKhoa Godinez MDECW LABSFinal ResultPerforming OrganizationAddressCity/State/ZIP CodePhone Number ECW NONXML LABS * Colonoscopy (06/17/2016 12:00 PM EDT)Anatomical RegionLateralityModality EndoscopySpecimen (Source)Anatomical Location / LateralityCollection Method / VolumeCollection TimeReceived Time06/17/2016 12:00 PM EDT Narrative 04/29/2017 12:00 PM EDT PERFORMED AT [facility] LOCATION:[id number] Abnormal Procedure Note CONVERSION, GENERIC - 03/18/2023 PERFORMED AT [facility] LOCATION:[id number] Abnormal Authorizing ProviderResult TypeResult StatusKhoa Godinez MDENDOSCOPY PROCEDURE ORDERABLESFinal Result from Last 3 Months or Most Recently Relevant to Health Maintenance Insurance Advance Directives TypeDate RecordedPatient RepresentativeExplanationPower of Attorney03/29/2024 1:37 [id number] POAAdvance Directives and Living Will03/29/2024 1:37 PM 2013-07-10 Living Will Care Teams Team MemberRelationshipSpecialtyStart DateEnd Date Khoa Godinez MD [address] [facility] [address] [place] [address] PCP - ACO Reach12/31/23 Khoa Godinez MD [address] [address] PCP - GeneralFamily Medicine12/27/24 Jude Beach MD [address] [place], [place] [address] Referring PhysicianUrolog12/09/23 Tiffanie Smyth DPM [address] [place] [address] Referring PhysicianPodiatr12/09/23 Larissa Leavitt, CORDELL [address] [place] [address] Registered NurseFamily Medicine02/13/25 Callie Mora MD [address] [facility] [place] [address] Referring PhysicianGeneral Surgery05/07/25 Skinny White MD [address] [place] [address] Referring PhysicianOphthalmology05/07/25 Shani Mohan DO [address] [address] Referring PhysicianNeurology05/07/25
--- OUTSIDE RECORDS SUMMARY | 2025-09-25 07:52 | XMS_ITS | Encounter Summary ---
Author Organization [facility] Address [address] [place] [address] Care Team Providers Care Training Development Director Name Role Phone Jude Beach MD Unavailable [phone] Tiffanie Smyth DPM Unavailable [phone] Khoa Godinez MD Unavailable [phone] Khoa Godinez MD Primary Care Provider [phone] Larissa Leavitt RN Unavailable [phone] Callie Mora MD Unavailable [phone] Skinny White MD Unavailable [phone] Shani Mohan DO Unavailable [phone] Encounter Details DateTypeDepartmentCare Team (Latest Contact Info)Bpzsgrxxcqr56/18/2025Patient Outreach [facility] [address] [place] [address] Larissa Leavitt, RN [address] [place] [address] Social History Tobacco UseTypesPacks/DayYears UsedDateSmoking Tobacco: NeverAlcohol UseStandard Drinks/WeekCommentsNever0 (1 standard drink = 0.6 oz pure alcohol)Caffeine intake: zlllY3900 Health LiteracyAnswerDate RecordedHow often do you need to have someone help you when you read instructions, pamphlets, or other written material from your doctor or pharmacy?Never06/18/2025Social Connection and Isolation PanelAnswerDate RecordedIn a typical week, how many times do you talk on the phone with family, friends, or neighbors?Never06/18/2025How often do you get together with friends or relatives?Once a week06/18/2025How often do you attend yarsani or adventist services?More than 4 times per year06/18/2025Do you belong to any clubs or organizations such as yarsani groups, unions, fraternal or athletic groups, or [...] at all 06/18/2025PHQ-2AnswerDate RecordedPatient Health Questionnaire-2 Score0 05/07/2025[facility] [place] of Occupational Health - Occupational Stress QuestionnaireAnswerDate [...] were you homeless or living in a group home (including now)?No06/18/2025Sex and Gender InformationValueDate RecordedSex Assigned at BirthNot on fileLegal EaxMidm4501/13/2023 7:09 PM EDT Gender IdentityNot on fileSexual OrientationNot on fileOccupationIndustryJob Start DateJob End DateRetiredNot on fileNot on fileNot on filedocumented as of this encounter Progress Notes * Larissa Leavitt RN - 09/18/2025 2:57 PM EST Chart reviewed. Called pt's for monthly monitor. States that Dr Chacon wanted him to return to [place], ankle surgeon. To see if he could do something for his pain. Pt states that he was told that they can not do any more surgery. Pt states that his blood sugars are running well, states it was 120 last night. Pt reports he has not had any changes to his medications, taking medications as ordered. No refills needed, Discussed upcoming appt with Podiatry. Pt states his takes care of all the appts. Pt reports no questions or concerns at this time. Encouraged to call when needs arise. documented in this encounter Plan of Treatment DateTypeDepartmentCare Team (Latest Contact Info)Epeyqubhjyt55/11/2025 10:45 AM ESTProcedure Visit [facility] [address] [place] [address] Tiffanie Smyth DPM [address] [place], [place] [address] 10/22/2025 2:30 PM ESTOffice Visit [facility] 112 [facility] 100 [place] [address] Khao Godinez MD 112 [facility] [place] [address] (Fax) documented as of this encounter Visit Diagnoses Diagnosis Type 2 diabetes mellitus with diabetic neuropathic arthropathy, with long-term current use of insulin (HCC)- Primary Primary hypertension Unspecified essential hypertension documented in this encounter Additional Health Concerns AssessmentNoted TimePHQ-9 Depression Total Score: 10:00 AM EDT documented as of this encounter Care Teams Team MemberRelationshipSpecialtyStart DateEnd Date Khoa Godinez MD [address] [address] [place] [address] PCP - ACO Reach12/31/23 Khoa Godinez MD [address] [address] [place] [address] (Fax) PCP - GeneralFamily Medicine12/27/24 Jude Beach MD [address] [place] [address] Referring PhysicianUrology2 Tiffanie Smyth DPM [address] [place], [place] [address] Referring PhysicianPodiatry2 Larissa Leavitt, RN [address] [facility] [address] [place] [address] Registered NurseFamily Medicine02/13/25 Callie Mora MD [address] [place] [address] Referring PhysicianGeneral Surgery05/07/25 Skinny White MD [address] [place] [address] Referring PhysicianOphthalmology05/07/25 Shani Mohan DO [address] [place] [phone] Referring PhysicianNeurology05/07/25documented as of this encounter
--- OUTSIDE RECORDS SUMMARY | 2025-09-25 07:53 | XMS_ITS | CCD ---
Author Organization [facility] Care Team Providers Care Mold Cooler Name Role Phone Khoa Bowles Primary Care Provider Leopoldo Frye Attending Provider [phone] Elder Qiu Attending Provider KHOA BOWLES Primary [...] DR QUINTEROS Consulting Unavailable HEMEYER ., DR QUINTREOS Primary Care Unavailable HEMMER, DR BACILIO Carvajal Attending Unavailable HEMMER, DR BACILIO Carvajal Admitting Unavailable WOOD ., DR WALLACE Consulting Unavailable HEMEYER ., DR QUINTEROS Primary Care Unavailable WOOD ., DR WALLACE Attending Unavailable WOOD ., DR WALLACE Admitting Unavailable CRANE, DR TALI Jeffries Consulting Unavailable WOOD ., DR WALLACE Consulting Unavailable HEMEYER ., DR QUINTEROS Primary Care Unavailable WOOD ., DR WALLACE Attending Unavailable WOOD ., DR WALLACE Admitting Unavailable MD Khoa Bowles Primary Care Provider [phone] MARIZOL Hampton Attending Provider [phone] Khoa Bowles MD Primary Care Provider Madison Wood MD Unavailable Haja HARMON, Tiffanie Tariq Unavailable [phone] Khoa Bowles MD Unavailable Khoa Bowles MD Primary Care Provider Khoa Bowles MD Unavailable Khoa Bowles MD Unavailable [phone] Khoa Bowles MD Primary Care Provider [phone] Tree LANDA, Larissa Unavailable Tree LANDA, Larissa Unavailable Morgan LEVY, Callie Robertson Unavailable Skinny White MD Unavailable Shani Mohan DO Unavailable Khoa Bowles MD Primary Care Provider [phone] Madison Wood MD Attending Provider Madison WOOD Attending Unavailable Madison WOOD R Attending Unavailable WOODMadison R Attending Unavailable WOOD, Madison R Attending Unavailable WOOD, Madison R Attending Unavailable WOODMadison R Attending Unavailable KAROLINE MONTES Referring Unavailable KHOA BOWLES Primary Care Unavailable KAROLINE MONTES Referring Unavailable KHOA BOWLES Primary Care Unavailable CALLIE MORA F Attending Unavailable CALLIE MORA F Referring Unavailable KHOA BOWLES Primary Care Unavailable Madison Drew DO Emergency Provider NON STAFF Primary Care Provider Unavailabl e TIFFANIE ENRIQUE Attending Unavailable KHOA BOWLES Attending Unavailable TIFFANIE ENRIQUE Attending Unavailable KHOA BOWLES Attending Unavailable KHOA BOWLES Attending Unavailable TIFFANIE ENRIQUE Attending Unavailable HEMEKHOA CASILLAS Attending Unavailable YUMIKO GUZMÁN Attending Unavailable YAQUELIN HAMPTON Attending Unavailable TIFFANIE ENRIQUE Attending Unavailable KHOA BOWLES Attending Unavailable Khoa Bowles Primary Care Unavailable Madison Wood Attending Unavailable Madison Wood Admitting Unavailable Madison Wood Admitting Unavailable Madison Wood Attending Unavailable Natasha, Madison Carvajal Attending Unavailable Madison Drew M Admitting Unavailable NON STAFF Primary Care Unavailable KAROLINE MONTES Attending Unavailable KHOA BOWLES Referring Unavailable KHOA BOWLES Primary Care Unavailable KAROLINE MONTES Attending Unavailable KHOA BOWLES Referring Unavailable KHOA BOWLES Primary Care Unavailable Madison Wood MD Attending Provider Shani Mohan DO Attending Provider [phone] Khoa Bowles MD Primary Care Provider [phone] Madison Wood MD Unavailable Skinny White MD Unavailable Allergies Allergy ClassificationReported Allergen(s)Allergy TypeDate of OnsetReaction(s) FacilityOpioid Agonists (1 source)MeperidineDrug Bhojcst70-27-5994UfjszjchbHnfbusnevSelect [facility] (9 sources)Meperidine / Promethazine; Translations: [meperidine-promethazine] Drug AllergyUnknown (qualifier value)[facility] (20 sources)Meperidine; Translations: [meperidine]Drug Mytvuvq84-86-1491Luzerr (finding)[facility] (2 sources)MeperidineDrug Mmwtrrx06-87-0563[facility] (2 sources)pioglitazoneDrug Swptcie67-74-2614YcyMer[facility] (20 sources)MeperidineDrug Eavzxjz14-09-0181[facility] (20 sources)pioglitazoneDrug Dkadpvv29-89-1468AqelgygnQTZQ Healthcare (1 source)Doxycycline; Translations: [doxycycline]Drug AllergyLifebrite [facility] (2 sources)AmoxicillinDrug Vcoytab44-75-4734Wczbofu ReactionMarietta Osteopathic Clinic Repository (1 source)MeperidineDrug Rjhjgbh25-86-3391OtnxfotecMarietta Osteopathic Clinic Repository (3 sources)AmoxicillinDrug Iijiroa62-09-1091JFFZ [facility] Medications Current Medications MedicationDrug Class(es)DatesSig (Normalized)Sig (Original)allopurinol 300 mg oral tablet (20 sources)Xanthine Oxidase InhibitorStart: 11-09-2018 End: 37-54-7619ynbi 1 tablet by mouth once daily at bedtimeAllopurinol 300 mg tablet Active 300 MG PO Daily at bedtime November 09, 2018 1:00am Complies with drug therapyaspirin 81 mg oral tablet (20 sources)Platelet Aggregation Inhibitor, Nonsteroidal Anti-inflammatory Drug Start: 63-78-6174qtsz 1 mg by mouth once dailyaspirin 81 mg oral tablet mg tab(s), Oral, Daily, Refills(s) 0 Start Date: 09/18/19 Status: OrderedRepeat number: 1Start: 26-37-7678Bkjbrtn (Earnest Low Dose Aspirin) 81 mg Tablet,Delayed Release (Dr/Ec) Active 81 MG PO Every morningNovember 23, 2018 1:00am Complies with drug therapyBiotin (20 sources)Start: 55-40-0926iqpcih 10,000 mcg, Refills(s) 0 Start Date: 09/04/24 Status: Ordered Repeat number: 1Start: 90-23-0375rgbfmb 10,000 mcg, Refills(s) 0 Start Date: 09/04/24 Status: OrderedStart: 69-82-2858ghxf 1 capsule by mouth twice dailyBiotin 10,000 mcg Capsule Active 64500 MCG PO Twice daily November 09, 2018 1:00am Complies with drug therapytake 1 tablet by mouth in the morning biotin 39923 MCG tablet Take 1 tablet by mouth in the morning and 1 tablet before bedtime. ActiveBlood Glucose Monitoring Suppl (Blood Glucose Monitoring 333) device (18 sources)Blood Glucose Monitoring Suppl (Blood Glucose Monitoring 333) device 1 Device continuously Accucheck ActiveCpap (Continuous Positive Airway Pressure) unit (1 source)Start: 54-60-6068Pxhg (Continuous Positive Airway Pressure) unit Active 0 .Route 1 July 24, 2025 12:00am New CPAP mask and supplies for 1 year dx BRETT to [facility] Has been able to use machine as was not sent new supplies dapagliflozin 10 mg oral tablet (20 sources)Sodium-Glucose Cotransporter 2 InhibitorStart: 05-02-2024 End: 92-82-3755ezid 1 tablet by mouth once daily in the morningDapagliflozin Propanediol (Farxiga) 10 mg tablet Active 10 MG PO Every morning July 242:00am Complies with drug therapyStart: 11-04-2023 End: 31-71-2087hsno 1 tablet by mouth in the morningdapagliflozin (Farxiga) 10 MG Indications: Diabetic nephropathy associated with type 2 diabetes mellitus (HCC) (CMS/HCC) Take 1 tablet (10 mg) by mouth in the morning. 90 tablet 0 11/04/2023 02/02/2024 Activedoxycycline monohydrate 100 mg oral capsule (20 sources)Tetracycline-class DrugStart: 11-04-2023 End: 47-47-6166zvjy 1 capsule by mouth once dailydoxycycline (Monodox) 100 MG capsule Indications: Chronic cellulitis Take 1 capsule (100 mg) by mouth Daily 90 capsule 3 05/03/2025 04/28/2026 ActiveStart: 72-50-7486rwtf 1 mg by mouth twice dailydoxycycline hyclate 100 mg Cap mg cap(s), Oral, BID, Refills(s) 0 Start Date: 09/18/19 Status: Ordered Repeat number: 1Start: 53-15-5122cwnd 1 tablet by mouth once daily in the morningDoxycycline Hyclate 100 mg tablet Active 100 MG PO Every morning November 09, 2018 1:00am Complies with drug therapyDULoxetine 60 mg delayed release oral capsule (20 sources)Serotonin and Norepinephrine Reuptake InhibitorStart: 62-94-4138reuf 1 capsule by mouth twice dailyDuloxetine 60 mg capsule,delayed release(DR/EC) Active 60 MG PO Twice daily July 24, 2025 12:00am Complies with drug therapyStart: 41-96-3101kvvjxmkhtw 30 mg oral delayed release capsule 30 mg = 1 cap(s), Refills(s) 0 Start Date: 04/02/25 Status: Ordered Repeat number: 1Start: 19-98-5053fvog 1 capsule by mouth in the morningDULoxetine (Cymbalta) [address] capsule Take 20 mg by mouth in the morning and 20 mg before bedtime.01/12/2025 Activefenofibrate 160 mg oral tablet (20 sources)Peroxisome Proliferator Receptor alpha AgonistStart: 05-02-2024 End: 46-34-5117eqvv 1 tablet by mouth once dailyFenofibrate 160 mg tablet Active 160 MG PO Daily July 24, 2025 12:00am Complies with drug therapyStart: 11-04-2023 End: 71-52-3683njfb 1 tablet by mouth in the morningfenofibrate (Triglide) 160 MG tablet Indications: Mixed hyperlipidemia (CMS/HCC) Take 1 tablet (160mg) by mouth in the morning. 90 tablet 0 11/04/2023 02/02/2024 Activeferrous sulfate 325 mg oral tablet (20 sources)Start: 22-41-5384rqaa 1 tablet by mouth once dailyFerrous Sulfate (Iron (Ferrous Sulfate)) 325 mg (65 mg iron) Tablet Active 325 MG PO Daily November 09, 2018 1:00am Complies with drug therapygabapentin 300 mg oral capsule (20 sources)Anti-epileptic AgentStart: 07-21-2023 End: 93-83-1877tekx 1 capsule by mouth in the morninggabapentin (Neurontin) 300 MG capsule Indications: Polyradiculopathy Take 1 capsule (300 mg) by mouth in the morning and 1 capsule (300 mg) before bedtime. 180 capsule 11/06/2024 02/04/2025 ActiveStart: 11-09-2018 End: 51-67-7676qpwt 1 capsule by mouth three times dailyGabapentin 400 mg capsule Discontinued 400 MG PO Three times daily November 09, 2018 1:00am April 03, 2021 11:56amglipiZIDE er 10 mg 24 hr extended release oral tablet (9 sources)SulfonylureaStart: 83-34-0302dcvr 1 mg by mouth once dailyglipiZIDE 10 mg ER Tab mg tab(s), Oral, Daily, Refills(s) 0 Start Date: 09/16/20 Status: OrderedStart: 11-09-2018 End: 24-21-8805lqbd 1 tablet by mouth twice dailyGlipizide 10 mg tablet Discontinued 10 MG PO Twice daily November 09, 2018 1:00am July 24, 2025 2:12pmhydroCHLOROthiazide 25 mg oral tablet (20 sources)Thiazide DiureticStart: 11-09-2018 End: 72-29-0822xslp 1 tablet by mouth once daily at bedtimeHydrochlorothiazide 25 mg tablet Active 25 MG PO Daily at bedtime November 09, 2018 1:00am Complies with drug therapyhydroCHLOROthiazide 12.5 mg / losartan potassium 100 mg oral tablet (20 sources)Thiazide Diuretic, Angiotensin 2 Receptor BlockerStart: 09-04-2024 hydrochlorothiazide-losartan 12.5 mg-100 mg oral tablet 1 tab(s), Refill(s) 0 Start Date: 09/04/24 Status: Ordered Repeat number: 1Start: 11-04-2023 End: 65-67-9174prab 1 tablet by mouth in the morninglosartan-hydroCHLOROthiazide (Hyzaar) 100-12.5 MG tablet Indications: Essential hypertension (CMS/HCC) Take 1 tablet by mouth in the morning. 90 tablet 0 11/04/2023 02/02/2024 ActiveStart: 11-09-2018 End: 44-88-4378alka 1 tablet by mouth once daily in the morningLosartan- Hydrochlorothiazide 100-12.5 mg tablet Active 1 TAB PO Every morning November 09, 2018 1:00am Complies with drug therapy3 ml insulin glargine 100 unt/ml pen injector (20 sources)Insulin AnalogStart: 54-66-1408qnlbjx 10 [IU] by subcutaneous injection twice dailyInsulin Glargine (Basaglar Kwikpen U-100 Insulin) 100 unit/mL (3 mL) insulin pen Active 10 UNIT SUBCUT Twice daily July 24, 2025 12:00am Complies with drug therapyStart: 02-11-7651Grxwjzvk KwikPen 100 units/mL subcutaneous solution See Instructions, Refills(s) 0 Start Date: Status: Ordered Repeat number: 1Start: 06-14-2024 End: 44-35-3531vnzqvjy glargine (Basaglar KwikPen) 100 UNIT/ML pen Indications: Type 2 diabetes mellitus with hyperglycemia, without long-term current use of insulin (CMS/[facility]) Inject bid, sliding blood glucose scale with the coverage: 300, 20 units 3 mL 3 11/16/2024 ActiveStart: 59-82-6380iqxswek glargine (Basaglar KwikPen) 100 UNIT/ML pen Indications: Type 2 diabetes mellitus with hyperglycemia, without long-term current use of insulin (CMS/HCC) Inject before supper, sliding blood glucose scale; 250=8u Strength: 100 UNIT/ML 3 mL 0 11/23/2023 ActiveLutein (20 sources)Start: 52-93-9473udcytu 20 mg, Refill(s) 0 Start Date: 09/04/24 Status: Ordered Repeat number: 1Start: 80-87-9075dkbusv 20 mg, Refill(s) 0 Start Date: 09/04/24 Status: OrderedStart: 25-97-7798eesm 1 capsule by mouth once dailyLutein 20 mg Capsule Active 20 MG PO Daily November 09, 2018 1:00am Complies with drug therapyLutein 20 MG tablet 1 (one) time each day at the same time. Activemeclizine hydrochloride 25 mg oral tablet (5 sources)AntiemeticStart: 10-50-1236cxxp 1 tablet by mouth three times daily as neededMeclizine 25 mg tablet Active 25 MG PO Three times daily as needed for Vertigo July 13, 2025 12:00am Complies with drug therapymetFORMIN hydrochloride 1000 mg oral tablet (20 sources)BiguanideStart: 05-02-2024 End: 74-24-6431wwdv 1 tablet by mouth in the morningmetFORMIN (Glucophage) 1000 MG tablet Indications: Type 2 diabetes mellitus with diabetic microalbuminuria, with long-term current use of insulin ([facility]) Take 1 tablet (1,000 mg) by mouth in the morning and 1 tablet (1,000 mg) in the evening. Take with meals. 180 tablet 1 05/03/2025 10/30/2025 ActiveStart: 11-04-2023 End: 52-67-5273gspl 1 tablet by mouth in the morningmetFORMIN (Glucophage) 1000 MG tablet Indications: Type 2 diabetes mellitus with hyperglycemia, without long-term current use of insulin (CMS/HCC) Take 1 tablet (1,000 mg) by mouth in the morning and1 tablet (1,000 mg) in the evening. Take with meals. 180 tablet 0 11/04/2023 02/02/2024 ActiveStart: 64-81-7358ogof 1 tablet by mouth twice daily Metformin 500 mg tablet Active 500 MG PO Twice daily November 09, 2018 1:00am Complies with drug therapymetoprolol tartrate 50 mg oral tablet (20 sources)beta-Adrenergic BlockerStart: 11-09-2018 End: 42-40-2092ldad 1 tablet by mouth twice dailyMetoprolol Tartrate 50 mg tablet Active 50 MG PO Twice daily November 09, 2018 1:00am Complies withdrug hr mirabegron 50 mg extended release oral tablet (1 source)beta3-Adrenergic AgonistStart: 09-04-2024 End: 10-46-5459drup 1 tablet by mouth once dailymirabegron 50 mg oral tablet, extended release 50 mg = 1 tab(s), Oral, Daily, X 30 day(s), # 30 tab(s), Refills(s) 11, Pharmacy: [facility]/pharmacy #[id number], 185, cm, 09/04/24 13:31:00 EST, Height/Length Dosing, 128, kg, 09/04/24 13:31:00 EST, Weight Dosing Start Date: 09/04/24 Stop Date: 08/30/25 Status: OrderedMisc. Devices misc (2 sources)Start: 98-76-2488Ymqr. Devices misc Indications: Lymphedema of both lower extremities 1 each continuously 1 each 07/19/2025 ActiveMultivitamin preparation (2 sources)Start: 17-44-2631dijm 1 tablet by mouth once dailyMultivitamin Active 1 TAB PO Daily April 03, 2021 11:58amStart: 35-25-6207pgdn 1 tablet by mouth once dailyMultivitamin Active 1 TAB PO Daily April 03, 2021 12:00amsodium bicarbonate 650 mg oral tablet (20 sources)Start: 89-07-6738zpdk 3 tablets by mouth twice dailysodium bicarbonate 650 mg Tab 1,950 mg = 3 tab(s), Oral, BID, # 180 tab(s), Refills(s) 11, Pharmacy: [facility]/pharmacy #[id number], 185, cm, 09/04/24 13:31:00 EST, Height/Length Dosing, 128, kg, 09/04/24 13:31:00 EST, Weight Dosing Start Date: 11/15/24 Status: Ordered Quantity: 180.0 Unit: tab(s) Repeat number: 12Start: 11-09-2018 End: 12-85-4717hrqn 3 tablets by mouth twice dailysodium bicarbonate 650 mg Tab 1,950 mg = 3 tab(s), Oral, BID, # 180 tab(s), Refills(s) 11, Pharmacy: [facility]/pharmacy #[id number], 185, cm, 07/21/23 13:37:00 EDT, Height/Length Dosing, 138.2, kg, 07/21/23 13:37:00 EDT, Weight Dosing Start Date: 11/11/23 Status: Ordered Start: 00-86-2969uqdz 1950 mg by mouth twice dailySodium Bicarbonate Active 1950 MG PO Twice daily November 09, 2018 3:30pmsolifenacin succinate 10 mg oral tablet (20 sources)Cholinergic Muscarinic AntagonistStart: 21-93-0387vqnk 1 tablet by mouth once dailySolifenacin 10 mg tablet Active 10 MG PO Daily July 24, 2025 12:00am Complies with drug therapyspironolactone 25 mg oral tablet (20 sources)Aldosterone AntagonistStart: 98-21-9260Mcoqnrodmljzas 25 mg tablet Active 25 MG PO .COMPLEX July 24, 2025 12:00am 25 mg orally 2 inthe am and 1 at bed; Complies with drug therapyStart: 93-37-8011mpeniphfpdjnyd (Aldactone) 25 MG tablet Indications: Lymphedema of both lower extremities 2 tabletsin Am and 1 tablet in PM 270 tablet 1 05/03/2025 ActiveStart: 09-04-2024 spironolactone 25 mg Tab See Instructions, Refills(s) 0 Start Date: 09/04/24 Status: Ordered Repeat number: 1Start: 05-02-2024 End: 06-37-6742rozcfhwleksfrr (Aldactone) 25 MG tablet Indications: Lymphedema of both lower extremities 2 tabletsin Am and 1 tablet in PM 270 tablet 1 10/31/2024 04/26/2025 Discontinued (Reorder)Start: 94-10-6223vytiyrluoxahcl (Aldactone) 25 MG tablet Indications: Lymphedema of both lower extremities 2 tabletsin Am and 1 tablet in PM 270 tablet 0 11/04/2023 Activetamsulosin hydrochloride 0.4 mg oral capsule (20 sources)alpha-Adrenergic BlockerStart: 95-81-4250dlex 1 capsule by mouth once daily at bedtimeTamsulosin 0.4 mg capsule Active 0.4 MG PO Daily at bedtime November 09, 2018 1:00am Complies with drug therapytake 1 capsule by mouth every twenty-four hours in the eveningFlomax 0.4 MG 24 hr capsule Take 0.4 mg by mouth in the evening. Active Completed/Discontinued Medications MedicationDrug Class(es)DatesSig (Normalized)Sig (Original)cephalexin 500 mg oral capsule (5 sources)Cephalosporin AntibacterialStart: 11-24-2018 End: 81-44-2000tzkl 1 capsule by mouth every eight hoursCephalexin (Keflex) 500 mg capsule Discontinued 500 MG PO Q8H November 24, 2018 1:00am April 03, 2021 11:58amcyclobenzaprine hydrochloride 10 mg oral tablet (9 sources)Muscle RelaxantStart: 04-17-2021 End: 97-53-1228jzuk 1 tablet by mouth three times daily as needed for muscle spasmsCyclobenzaprine 10 mg tablet Discontinued 10 MG PO Three times daily as needed for back spasms 50 April 17, 2021 12:00am July 24, 2025 2:12pm Start: 11-24-2018 End: 32-29-3865hgns 1 tablet by mouth three times daily as needed for muscle spasmsCyclobenzaprine 10 mg tablet Discontinued 10 MG PO Three times daily as needed for back spasms 50 November 24, 2018 1:00am April 03, 2021 11:56am gemfibrozil 600 mg oral tablet (9 sources)Peroxisome Proliferator Receptor alpha AgonistStart: 11-09-2018 End: 30-47-7514sgpy 1 tablet by mouth twice dailyGemfibrozil 600 mg tablet Discontinued 600 MG PO Twice daily November 09, 2018 1:00am July 24, 2025 2:08pmMultivitamin Tablet (3 sources)Start: 04-03-2021 End: 35-00-3560kmwa 1 tablet by mouth once dailyMultivitamin Tablet Discontinued 1 TAB PO Daily April 03, 2021 12:00am July 24, 2025 2:12pmStart: 16-02-4090kvqz 1 tablet by mouth once dailyoxyCODONE hydrochloride 5 mg oral capsule (9 sources)Opioid AgonistStart: 04-17-2021 End: 33-66-4899ripr 5-10 mg by mouth every six hours as needed for painOxycodone 5 mg capsule Discontinued 5 - 10 MG PO Q6H as needed for pain 40 8 April 17, 2021 July 24, 2025 2:12pmStart: 11-24-2018 End: 76-38-1745ceuh 1 tablet by mouth every six hours as needed for pain Oxycodone (Roxicodone) 5 mg Tablet Discontinued 1 - 2 TAB PO Q6H as needed for Pain 60 8 November 24, 2018 April 03, 2021 11:57ampredniSONE 10 mg oral tablet (9 sources)Start: 04-17-2021 End: 74-62-7183Xcwgdmpmzd 10 mg tablets,dose pack Discontinued 1 dose pk PO per package directions April 17, 2021 12:00am July 24, 2025 2:10pm take 4 tabs for 3 days then take 3 tabs for 3 days then take2 tabs for 3 days then take 1 tab for 3 daysStart: 46-20-0610Gdlwbiywiv Active 1 dose pk PO per package directions April 17, 2021 12:00am take 4 tabs for 3 days then take 3 tabs for 3 days then take 2 tabs for 3 days then take 1 tab for 3 daysStart: 11-24-2018 End: 58-37-9050Ivvrgozwhn Discontinued 1 dose pk PO per package directions November 24, 2018 1:57pm April 03, 2021 11:57am take 4 tabs for 3 days then take 3 tabs for 3 days then take 2 tabs for 3 days then take 1 tab for 3 days Start: 11-24-2018 End: 89-15-9891Gfdvjvpusb 10 mg tablets,dose pack Discontinued 1 dose pk PO per package directions November 24, 2018 1:00am April 03, 2021 11:57am take 4 tabs for 3 days then take 3 tabs for 3 days then take 2 tabs for 3 days then take 1 tab for 3 daysStart: 11-24-2018 End: 73-50-6430Ivwuwmwjbk Discontinued 1 dose pk PO per package directions November 24, 2018 1:00am April 03, 2021 11:57am take 4 tabs for 3 days then take 3 tabs for 3 days then take 2 tabs for 3 days then take 1 tab for 3 days zonisamide 25 mg oral capsule (5 sources)Anti-epileptic AgentStart: 11-09-2018 End: 74-01-4667ocrx 1 capsule by mouth twice dailyZonisamide 25 mg capsule Discontinued 50 MG PO Twice daily November 09, 2018 1:00am April 03, 2021 1 1:57amStart: 11-09-2018 End: 13-34-8371rssw 50 mg by mouth twice dailyZonisamide Discontinued 50 MG PO Twice daily November 09, 2018 3:30pm April 03, 2021 11:57am Problems Active Problems Problem ClassificationProblemDateDocumented DateEpisodic/ChronicAcquired foot deformities (1 source)Metatarsophalangeal joint stiff; Translations: [Other deformities of toe(s) (acquired), left foot]17-58-0736HardghnnHfzuyi of prostate (11 sources)Malignant neoplasm of prostate; Translations: [Malignant tumor of prostate]Onset: 68-39-2073QskzbasYhpdzgb ulcer of skin (20 sources)Non-pressure chronic ulcer of other part of left foot limited to breakdown of skin; Translations: [Ulcer of other part of foot]Onset: 08-26-2021 Resolved: 616137-37-7462KduemnwXuhfjuyhuer and hemorrhagic disorders (20 sources)Thrombocytopenic disorder; Translations: [Thrombocytopenia, unspecified]Onset: 387229-07-1547MbzqgieGfscvjuhuo associated with dizziness or vertigo (4 sources)Vertigo; Translations: [Dizziness and giddiness]82-62-7025Cufaefsa Conduction disorders (20 sources)Right bundle branch block; Translations: [Unspecified right bundle- branch block]Onset: 742705-73-4555GsmbzdaIwdmavnd mellitus with complications (20 sources)Type 2 diabetes mellitus with diabetic polyneuropathy; Translations: [Type 2 diabetes mellitus withother diabetic neurological complication]Onset: 07-19-2016 Resolved: 69-17-0777OltndsxWoswwkmpc of lipid metabolism (20 sources)Hyperlipidemia; Translations: [Hyperlipidemia, unspecified]Onset: 020596-22-7983RaeccraJqnxkoouwlxoav and diverticulitis (20 sources)Diverticulosis of colon; Translations: [Diverticulosis of large intestine without perforation or abscess without bleeding]Onset: 08-10-2015 64-20-5156EhkzmnjW Codes: Fall (2 sources)Fall; Translations: [Unspecified fall, subsequent encounter] 23-43-2192HldxouvzNqqnkcqmn hypertension (20 sources)Hypertensive disorder; Translations: [Essential (primary) hypertension]Onset: 525113-63-5001QxehqatXvqfovhbqle of prostate (20 sources)Benign prostatic hypertrophy with outflow obstruction; Translations: [Benign prostatic hyperplasia with lower urinary tract symptoms]Onset: 07-19-2016 Resolved: 31-20-2920VyoeiubUhzufuuffsqm with complications and secondary hypertension (20 sources)Hypertensive left ventricular hypertrophy; Translations: [Hypertensive heart disease without heart failure]Onset: ChronicMycoses (5 sources)Onychomycosis; Translations: [Tinea unguium]03-37-2459ZiwddehsMxgh wounds of extremities (2 sources)Tear of skin; Translations: [Laceration without foreign body of unspecified upper arm, initial encounter]89-56-8120YmpnsmeiKmccp aftercare (1 source)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; Translations: [FACILITY ASSISTANT CURRNT USE ANTICOAGULANTS]Onset: 83-13-3483QyhlhgfsHjffx aftercare (1 source)halfway (current) use of oral hypoglycemic drugs; Translations: [SENIOR LIVING USE ORAL HYPOGLYCEMIC DX]Onset: 54-78-2479BbipuzbjDrnru aftercare (1 source)Other retirement (current) drug therapy; Translations: [OTH SENIOR LIVING CURRENT DRUG THERAPY]Onset: 66-44-4203ZnrabxphFwten aftercare (1 source)Long-term current use of drug therapy; Translations: [Other retirement (current) drug therapy]43-36-2933DuvtvvsgYubhk aftercare (6 sources)Patient encounter status; Translations: [Encounter for follow-up examination after completed treatment for conditions other than malignant neoplasm]29-48-2943XxuzjuzbFjoeg circulatory disease (2 sources)Bleeding; Translations: [Hemorrhage, not elsewhere classified] 47-32-5192HwxrnpweBaamq connective tissue disease (20 sources)Fibromyalgia; Translations: [Fibromyalgia]63-59-6472ZjhfnqwnAwfcq diseases of bladder and urethra (4 sources)Detrusor overactivity; Translations: [Overactive bladder]Onset: 95-98-1135MjsapwbJhdbn diseases of bladder and urethra (4 sources)Overactive hpgbewc15-58-7703XmuzttmKeytr diseases of veins and lymphatics (20 sources)Lymphedema of bilateral lower limbs; Translations: [Lymphedema, not elsewhere classified]Onset: 517752-38-1778XbddenwMvpsx nervous system disorders (20 sources)Difficulty walking; Translations: [Difficulty in walking, not elsewhere classified]Onset: 955648-47-0185ClvlyqxNlaid nutritional; endocrine; and metabolic disorders (20 sources)Morbid obesity; Translations: [Morbid (severe) obesity due to excess calories]Onset: 310598-22-1884HvryfcmFikah skin disorders (5 sources)Acquired keratoderma; Translations: [Acquired keratosis [keratoderma] palmaris et plantaris]59-06-7469ItxyhmhwWovwj skin disorders (1 source)Callosity; Translations: [Corns and callosities]38-15-7800Vnhvqluo Peripheral and visceral atherosclerosis (20 sources)Peripheral vascular disease; Translations: [Peripheral vascular disease, unspecified]Onset: 896329-52-8645DctouqzEapzyfdz codes; unclassified (20 sources)Dependence on continuous positive airway pressure ventilation; Translations: [Dependence on other enabling machines and devices]Onset: 516967-77-9197QbfyzkqZmkjqbqe codes; unclassified (20 sources)Obstructive sleep apnea syndrome; Translations: [Obstructive sleep apnea (adult) (pediatric)]Onset: 296785-80-1232MnjytijIghsbapb codes; unclassified (20 sources)Hypersomnia; Translations: [Hypersomnia, unspecified]Onset: 361666-32-3571PnbkgkzPircojfv codes; unclassified (6 sources)Family history of cancer; Translations: [Family history of malignant neoplasm of prostate]Onset: 65-59-6102XjfemdjhUfzaqgmo codes; unclassified (1 source)Family history of malignant neoplasm of prostate; Translations: [FAMILY HX MALIG NEOPLASM PROSTATE]Onset: 98-65-2090TuiqefavWqnjtthx codes; unclassified (2 sources)Active advance directive (copy within chart) ; Translations: [Other specified health status]06-52-1354KcrlywtuTbacqjq detachments; defects; vascular occlusion; and retinopathy (20 sources)Bilateral age-related nonexudative macular degeneration; Translations: [Nonexudative age-related macular degeneration, bilateral, stage unspecified]Onset: 07-19-2016 Resolved: 388081-70-0080UnwmlzsEuqubjbylbi; intervertebral disc disorders; other back problems (20 sources)Spondylosis; Translations: [Other spondylosis with radiculopathy, thoracolumbar region]Onset: 573317-09-0241ZzpnvgpOvabjpgdtej; intervertebral disc disorders; other back problems (20 sources)Spinal stenosis of lumbar region; Translations: [Spinal stenosis, lumbar region with neurogenic claudication]Onset: 919238-00-5837Nxccwvmh Comment on above:Problem List clean-up per request of Phys. EHR CmteSyncope (5 sources)Syncope; Translations: [Syncope and collapse]Onset: 07-13-2025 42-43-0564TpcviendXtdwvwftkwok (1 source)discuss US resultsOnset: 07-26-2025 Past or Other Problems Problem ClassificationProblemDateDocumented DateEpisodic/ChronicAbdominal pain (20 sources)Flank pain; Translations: [Unspecified abdominal pain]Onset: 02-01-2014 Resolved: 082378-50-5690YefbzhrlNijzgqbd of urinary tract (20 sources)Kidney stone; Translations: [Calculus of kidney]Onset: 09-21-2022 EpisodicDeficiency and other anemia (20 sources)Iron deficiency anemia secondary to inadequate dietary iron intake; Translations: [Other iron deficiency anemias]Onset: 257646-79-3146Jmcrurbf Diabetes mellitus without complication (20 sources)Diabetes mellitus; Translations: [Type 2 diabetes mellitus without complications]Onset: 01-20-2023 Resolved: 473444-46-3129YfvwmvkTysdsjtsucgud symptoms and ill-defined conditions (20 sources)Nocturia; Translations: [Nocturia]Onset: 09-21-2022 Resolved: 44-34-8621GxbtzbtcEswfv valve disorders (20 sources)Heart murmur; Translations: [Cardiac murmur, unspecified]Onset: 556722-17-9694WjspfdwzPelszmu and fatigue (20 sources)Asthenia; Translations: [Weakness] Resolved: 562685-43-2079IbsbmyvaZzmy disorders (20 sources)Mood disordersOnset: 04-03-2024 Resolved: Other acquired deformities (20 sources)Lumbar spondylolisthesis; Translations: [Spondylolisthesis, lumbar region]Onset: 455159-93-4329DthccgikTphvx aftercare (20 sources)Polypharmacy ; Translations: [Other joint terminal attack controller (current) drug therapy]Onset: 988229-26-8429VcieupdrDmfzc connective tissue disease (20 sources)H/O: arthrodesis; Translations: [Arthrodesis status]Onset: 519910-66-9902RbavisydVeskx connective tissue disease (20 sources)Myalgia caused by statin; Translations: [Myalgia, unspecified site] Onset: 868277-15-2287EldezbdvBftft connective tissue disease (1 source)Panniculitis, unspecified; Translations: [Panniculitis, unspecified] Onset: 66-94-6144EnwukqksTezyj diseases of veins and lymphatics (20 sources)Lymphedema; Translations: [Lymphedema, not elsewhere classified] Onset: 07-19-2016 Resolved: 285353-62-1660ZrswdohNqrnf diseases of veins and lymphatics (1 source)Stasis dermatitis; Translations: [Venous insufficiency (chronic) (peripheral)]Onset: 25-75-199268920873-24-6491VupalsftXgade diseases of veins and lymphatics (20 sources)Peripheral venous insufficiency; Translations: [Venous insufficiency (chronic) (peripheral)]Onset: 693298-45-6194RqkghvshJbyeq diseases of veins and lymphatics (20 sources)Disorder of vein of lower extremity; Translations: [Venous insufficiency (chronic) (peripheral)]Onset: 659015-85-9018UuhsxnkyNjeat lower respiratory disease (20 sources)Snoring; Translations: [Snoring]Onset: 792900-24-1005Lnarqsao Other nervous system disorders (20 sources)Polyneuropathy; Translations: [Polyneuropathy, unspecified] Resolved: 891145-48-3783OdemuttLsqpu nutritional; endocrine; and metabolic disorders (20 sources)Body mass index 40+ - severely obese; Translations: [Body mass index (BMI) 40.0-44.9, adult]Onset: 02-01-2014 Resolved: 936035-55-1568NqxdcqdOrchc nutritional; endocrine; and metabolic disorders (20 sources)Obese class II; Translations: [Obesity, unspecified]Onset: 10-02-2020 Resolved: 950996-78-9545JufwdnuNrqki nutritional; endocrine; and metabolic disorders (20 sources)Body mass index 30+ - obesity; Translations: [Obesity, unspecified] Onset: 07-26-2024 Resolved: 677109-56-5251UpjstxjKulrj nutritional; endocrine; and metabolic disorders (20 sources)Obesity; Translations: [Obesity, unspecified]Onset: 04-12-2023 Resolved: 858356-04-5274GgfaenuNogwg nutritional; endocrine; and metabolic disorders (1 source)Hyperuricemia without signs of inflammatory arthritis and tophaceous disease; Translations: [HU W/OSIGNS IA AND TOPHACEOUS DZ]Onset: 05-08-2022 EpisodicOther nutritional; endocrine; and metabolic disorders (20 sources)Hyperuricemia; Translations: [Hyperuricemia without signs of inflammatory arthritis and tophaceous disease]Onset: EpisodicOther screening for suspected conditions (not mental disorders or infectious disease) (20 sources)Raised prostate specific antigen; Translations: [Elevated prostate specific antigen [PSA]]Onset: 29-38-3129VgfmxvszEgyrvqydq; thrombophlebitis and thromboembolism (20 sources)Deep venous thrombosis of lower extremity; Translations: [Personal history of other venous thrombosis and embolism]Onset: 01-20-2023 Resolved: 776977-57-8767SzfzzincIdiuqalu codes; unclassified (20 sources)Family history of prostate cancer; Translations: [Family history of malignant neoplasm of prostate]Onset: 07-28-2023 Resolved: 069441-26-1193NotmvecuEraw and subcutaneous tissue infections (20 sources)Cellulitis; Translations: [Cellulitis, unspecified]Onset: 04-12-2023 30-90-2753DclyregrVxslafvk veins of lower extremity (1 source)Varicose veins of bilateral lower extremities with pain; Translations: [Varicose veins of bilaterallower extremities with pain]Onset: 03-09-2024 Episodic Results Test NameValueInterpretationReference RangeFacilityAlanine aminotransferase [Enzymatic activity/volume] in Serum or PlasmaOrdered By: Madison Drew on 63-23-4306RRB [Catalytic activity/Vol]36 U/LNormal7-52M[facility] Osteopathic ClinicComment on above:Performed By: #### CBC, CMP #### [facility] [address] [place] [address] USAAlbumin [Mass/volume] in Serum or Plasma by Bromocresol green (BCG) dye binding methoOrdered By: Madison Drew on 29-15-8461Obfvqvk BCG dye [Mass/Vol]4.0 g/dL3.5-5.7FCincinnati VA Medical CenterAlkaline phosphatase [Enzymatic activity/volume] in Serum or PlasmaOrdered By: Madison Drew on 68-76-1321TLQ [Catalytic activity/Vol]34 U/LPeyjao57-471ZplapngrkMarietta Osteopathic ClinicComment on above:Performed By: #### CBC, CMP #### [facility] [address] [place] [id number] USAAppearance of UrineOrdered By: Madison Drew on 07-13-2025 Appearance (U)ClearNormalClearMarietta Osteopathic ClinicComment on above: Order Comment: Name Collection Type:: Clean-Voided MidstreamPerformed By: #### UA #### [place] [address] USAAspartate aminotransferase [Enzymatic activity/volume] in Serum or PlasmaOrdered By: Madison Drew on 23-65-6451DXN [Catalytic activity/Vol]34 U/LGywaqq26-62ZdwthvhnlMarietta Osteopathic ClinicComment on above: Performed By: #### CBC, CMP #### [place] [address] USABasophils [#/volume] in Blood by Automated countOrdered By: Madison Drew on 96-66-6114Odufgkpdj (Bld) [#/Vol]0.0 10*3/uLNormal0.0-0.2 [facility] ClinicComment on above:Result Comment: PERFORMED BY: [place] [address] PATHOLOGIST DIRECTOR OF REIMBURSEMENT DORITA KOROMA M.D.Performed By: #### CBC, CMP #### [place] [address] USABasophils/100 leukocytes in Blood by Automated count Ordered By: Madison Drew on 25-65-9679Keozcoafb/100 WBC (Bld)0.9 %Normal. [facility] ClinicComment on above:Performed By: #### CBC, CMP #### [place] [address] USABilirubin Test strip Ql (U)Ordered By: Madison Drew on 87-38-9397Foszifszb Ql (U)NegativeNegativeMarietta Osteopathic Clinic Bilirubin.total [Mass/volume] in Serum or PlasmaOrdered By: Madison Drew on 56-05-6926Jsrmqtmst [Mass/Vol]0.7 mg/dLNormal0.3-1.0M[facility] ClinicComment on above:Performed By: #### CBC, CMP #### [place] [address] USACT angio neckon 84-56-2365TJ angio [facility] [place] [address] [place] [address] CT Scan Report Signed Patient: Manuel Balderas MR#: [id number] : 1950 Acct:[id number] Age/Sex: 75 / M ADM Date: 07/13/25 Loc: ER Room: Type: PRE ER Attending Dr: Copies to: Madison Drew DO Ordering Provider: Madison Drew DO Date of Service: 07/13/25 CT/CT angio neck: vertigo ([id number]) CT/CT angio head: vertigo CT angiogram head [...] are patent with mild plaque. origin right WATCH CRYSTAL MOLDER. origin left WATCH CRYSTAL MOLDER with small contribution from the basilar artery. [...] Sandoval M.D. 07/13/2025 4:10 PM Dictation Location: [place] [address] Transcribed By: RHONDA 07/13/25 1610 Dictated By: Marty Sandoval MD 07/13/25 1602 Signed By: 07/13/25 1610MirlandeCaroMont Health Physician GroupCT head/brain wo conon 07-19-8376EX head/brain wo [facility] [place] [address] [place] [address] CT Scan Report Signed Patient: Manuel Balderas MR#: [id number] : 1950 Acct:[id number] Age/Sex: 75 / M ADM Date: 07/13/25 [...] Sandoval M.D. 07/13/2025 3:51 PM Dictation Location: [place] [address] Transcribed By: [facility] 07/13/25 1551 Dictated By: Marty Sandoval MD 07/13/25 1548 Signed By: 07/13/25 1551[facility] Physician GroupCalcium [Mass/volume] in Serum or PlasmaOrdered By: Madison Drew on 02-85-4484Qugwzsj [Mass/Vol]10.3 mg/dL Normal8.6-10.3FCincinnati VA Medical CenterComment on above:Performed By: #### CBC, CMP #### [facility] [address] [place] [address] USACapillary blood glucose measurement by glucometer (mass/volume)Ordered By: Madison Drew on 66-53-8739Xmnwutv [Mass/Vol]120 mg/dL NormalMarietta Osteopathic ClinicComment on above:Random Glucose Reference Range is dependent on time and content of last meal. Glucose of more than 200 mg/dL in a nonstressed, ambulatory subject supports the diagnosis of Diabetes Mellitus.Result Comment: Random Glucose Reference Range is dependent on time and content of last meal. Glucose of more than 200 mg/dL in a nonstressed, ambulatory subject supports the diagnosis of Diabetes Mellitus. PERFORMED BY: [place] [address] PATHOLOGIST DIRECTOR OF REIMBURSEMENT DORITA KOROMA M.D.Performed By: #### GLULS #### Point of Care testing ,Carbon dioxide, total [Moles/volume] in Serum or PlasmaOrdered By: Madison Drew on 52-22-7942RJ8 [Moles/Vol]21.6 mmol/XTpmuyf74.0-31.0M[facility] Osteopathic ClinicComment on above:Performed By: #### CBC, CMP #### [place] [address] USAChloride [Moles/volume] in Serum or PlasmaOrdered By: Madison Drew on 50-98-3568Buzotgme [Moles/Vol]106 mmol/HGizvjd51-728QvuufhsahMarietta Osteopathic ClinicComment on above:Performed By: #### CBC, CMP #### [place] [id number] USAColor of Urine by AutoOrdered By: Madison Drew on 87-91-0479Iagrl (U)Light-yellowNormalYMercy Health [facility] Comment on above:Order Comment: Name Collection Type:: Clean-Voided Midstream Performed By: #### UA #### [place] [address] USAComplete Blood Count Auto Diffon 36-86-1587Tkam Corpuscular HGB Conc33.2 g/lZBonhml59.5-35.6The [facility] Physician GroupComment on above:Performed By: #### CBC, CMP #### [place] [address] USAMonocytes/100 WBC (Bld)20.41 %High0.00-20.00The [facility] Physician GroupComment on above:Result Comment: For adults in ED, MDW > 20.0 may be associated with a higher risk of sepsis during the first 12 hrs of hospital admissionPerformed By: #### CBC, CMP #### [place] [address] USANRBC%0.2 /100{WBC}Normal0-0.5[facility] Comment on above:Performed By: #### CBC, CMP #### [place] [address] USAWhite Blood Count5.1 [CFU]/mLNormal4.1-10.5The [facility] Physician GroupComment on above:Performed By: #### CBC, CMP #### [place] [address] USAComprehensive Metabolic Panelon 91-82-8540Nhcgcky [Mass/Vol]4.0 g/dLNormal3.5-5.7The [facility] Physician GroupComment on above: Performed By: #### CBC, CMP #### [place] [address] USACreatinine Clr Calc Fsrtiipq65.72NormalThe [facility] Special[facility] Hospital Physician GroupComment on above:Result Comment: PERFORMED BY: [place] [address] PATHOLOGIST DIRECTOR OF REIMBURSEMENT DORITA KOROMA M.D.Performed By: #### CBC, CMP #### [place] [address] USAGFR/1.73 sq M.predicted MDRD (S/P/Bld) [Vol rate/Area] mL/min/{1.73_m2}NormalThe [facility] Specialty Hospital Physician GroupComment on above:Performed By: #### CBC, CMP #### [address] [place] [address] USACreatinine [Mass/volume] in Serum or PlasmaOrdered By: Madison Drew on 09-32-6779Wbxcvbgzzp [Mass/Vol]1.16 mg/dLNormal0.70-1.30 [facility] ClinicComment on above:Performed By: #### CBC, CMP #### [facility] [address] [place], [place] [address] USAECG 12 lead ECGon 25-74-3931OGS 12 lead ECGELYRIA [facility] [place] [address] [place], [place] [address] Electrocardiograph Report Signed Patient: Manuel Balderas MR#: [id number] : 1950 Acct:[id number] Age/Sex: 75 / M ADM Date: 07/13/25 [...] By: MUS Signed By Madison Drew DO 150[address]NochiquisH. Lee [facility] Physician GroupEosinophils [#/volume] in Blood by Automated countOrdered By: Madison Drew on 80-67-9433Hnofwgqatev (Bld) [#/Vol] 0.2 10*3/uLNormal0.0-0.45[facility] ClinicComment on above: Performed By: #### CBC, CMP #### [facility] [address] [place] [id number] USAEosinophils/100 leukocytes in Blood by Automated count Ordered By: Madison Myerssusanna on 39-35-2886Icqnrtoszkv/100 WBC (Bld)3.6 %Normal. [facility] ClinicComment on above:Performed By: #### CBC, CMP #### [facility] [address] [place] [address] USAErythrocyte distribution width [Ratio] by Automated count Ordered By: Madisonstuart Drew on 72-49-0845Evmloyelfpk distribution width (RBC) [Ratio]15.5 %High12.0-14.8M[facility] ClinicComment on above: Performed By: #### CBC, CMP #### [facility] [address] [place] [address] USAErythrocytes [#/volume] in Blood by Automated countOrdered By: Madison Drew on 40-90-7084TFZ (Bld) [#/Vol]4.16 10*6/uLNormal3.90-5.60 [facility] ClinicComment on above:Performed By: #### CBC, CMP #### [facility] [address] [place] [address] USAGlomerular filtration rate [Volume Rate/Area] in Serum, Plasma or Blood by CreatinineOrdered By: Madison Drew on 60-33-6537Rmrmikasym filtration rate [Volume Rate/Area] in Serum, Plasma or Blood by Creatinine> 60.0 mL/MinMarietta Osteopathic ClinicGlucose [Mass/volume] in Serum or Plasma Ordered By: Madison Drew on 69-40-0348Cfnusvl [Mass/Vol]135 mg/rPQuzh96-712 [facility] ClinicComment on above:ADA recommended reference rangeRandom Glucose Reference Range is dependent on time and content of last meal. Glucose of more than 200 mg/dL in a nonstressed, ambulatory subject supports the diagnosisof Diabetes Mellitus.Result Comment: Random Glucose Reference Range is dependent on time and content of last meal. Glucose of more than 200 mg/dL in a nonstressed, ambulatory subject supports the diagnosis of Diabetes Mellitus. ADA recommended reference rangePerformed By: #### CBC, CMP #### [facility] [address] [place] [address] USAGlucose [Mass/volume] in Urine by Test stripOrdered By: Madison Drew on 97-96-5582Duifesd Test strip (U) [Mass/Vol]>=1000 mg/dLHigh NormalMarietta Osteopathic ClinicHematocrit [Volume Fraction] of Blood by Automated countOrdered By: Madison Drew on 08-30-2748Vfjowhbrsq (Bld) [Volume fraction]39.8 %Jatkdi07.8-50.0M[facility] ClinicComment on above: Performed By: #### CBC, CMP #### [facility] [address] [place] [id number] USAHemoglobin Test strip Ql (U)Ordered By: Madison Drew on 37-17-0590Pjearjzjcb Ql (U)NegativeNegBluffton Hospital Hemoglobin [Mass/volume] in BloodOrdered By: Madison Drew on 07-13-2025 Hemoglobin (Bld) [Mass/Vol]13.2 g/wOSendxh55.0-17.0[facility] ClinicComment on above:Performed By: #### CBC, CMP #### [facility] [address] [place] [id number] USAKetones [Presence] in Urine by Test stripOrdered By: Madison Drew on 03-45-5493Bmkbenc Ql (U)NegativeNormalKettering Health Washington TownshipComment on above:Order Comment: Name Collection Type:: Clean- Voided MidstreamPerformed By: #### UA #### [facility] [address] [place] [id number] USALeukocyte esterase [Presence] in Urine by Test strip Ordered By: Madison Drew on 82-62-7672Tbddxfcdm esterase Test strip Ql (U) NegativeNormalKettering Health Washington TownshipComment on above:Order Comment: Name Collection Type:: Clean-Voided MidstreamPerformed By: #### UA #### [facility] [address] [place] [id number] USALeukocytes [#/volume] corrected for nucleated erythrocytes in Blood by Automated counOrdered By: Madison Drew on 82-68-4866ROO corrected for nucl RBC Auto (Bld) [#/Vol]5.1 10*3/uL4.1-10.5FCincinnati VA Medical CenterLeukocytes [#/volume] in Blood by Automated countOrdered By: Madison Drew on 00-43-6340JDR (Bld) [#/Vol]5.1 10*3/uLNormal4.1-10.5FCincinnati VA Medical CenterComment on above:Performed By: #### CBC, CMP #### [facility] [address] [place] [address] USALymphocytes [#/volume] in Blood by Automated countOrdered By: Madison Drew on 02-46-3442Omocyuberxi (Bld) [#/Vol]0.7 10*3/uLLow1.00-4.8 [facility] ClinicComment on above:Performed By: #### CBC, CMP #### [facility] [address] [place] [id number] USALymphocytes/100 leukocytes in Blood by Automated count Ordered By: Madison Drew on 09-09-0228Kvsqlntwrqq/100 WBC (Bld)14.5 %Normal. [facility] ClinicComment on above:Performed By: #### CBC, CMP #### [facility] [address] [place], [place] [address] [facility] CITYH [Entitic mass] by Automated countOrdered By: Madison Drew on 90-82-2800BXW (RBC) [Entitic mass]31.7 urIisoyw95.5-35.2FCincinnati VA Medical CenterComment on above:Performed By: #### CBC, CMP #### [facility] [address] [place], [place] [address] USAHC Auto (RBC) [Mass/Vol]Ordered By: Madison Drew on 18-29-5652QVUW (RBC) [Mass/Vol]33.2 g/dL32.5-35.6FCincinnati VA Medical CenterMCV [Entitic volume] by Automated countOrdered By: Madison Drew on 57-48-1585CKM (RBC) [Entitic vol]95.5 eRCwjugz05.5-101M[facility] ClinicComment on above:Performed By: #### CBC, CMP #### [place] [address] USAMonocyte distribution width [Entitic volume] in Blood by AutomatedOrdered By: Madisonstuart Drew on 48-96-1216Cajuswtb distribution width Auto (Bld) [Entitic vol]20.41 %High0.00-20.00[facility] ClinicComment on above:For adults in ED, MDW > 20.0 may be associated with a higher risk of sepsis during the first 12 hrs of hospital admissionMonocytes [#/volume] in Blood by Automated countOrdered By: Madison Drew on 30-04-7412Amyquyjeh (Bld) [#/Vol]0.5 10*3/uLNormal0.0-0.8[facility] ClinicComment on above:Performed By: #### CBC, CMP #### [place] [id number] USAMonocytes/100 leukocytes in Blood by Automated count Ordered By: Madison Drew on 34-24-6635Rlwjklnsx/100 WBC (Bld)10.8 %Normal. [facility] ClinicComment on above:Performed By: #### CBC, CMP #### [place] [address] USANeutrophils [#/volume] in Blood by Automated countOrdered By: Madison Drew on 04-50-2643Opdmsvsxrvv (Bld) [#/Vol]3.6 10*3/uLNormal1.8-7.7 [facility] ClinicComment on above:Performed By: #### CBC, CMP #### [address] [address] USANeutrophils/100 leukocytes in Blood by Automated count Ordered By: Madison Drew on 16-45-6056Cpkmqifttpv/100 WBC (Bld)70.2 %Normal. [facility] ClinicComment on above:Performed By: #### CBC, CMP #### [place] [address] USANitrite Test strip Ql (U)Ordered By: Madison Drew on 85-72-3010Ufjojys Ql (U)NegativeNegativeMarietta Osteopathic ClinicNo Panel InformationOrdered By: Madison Drew on 35-04-7232Svscnhni Creatinine Clearance (Chem77.72M[facility] Osteopathic ClinicNucleated erythrocytes [Presence] in Blood by Automated countOrdered By: Madison Drew on 07-13-2025 Nucleated RBC Auto Ql (Bld)0.2 /100{WBC}0-0.5FCincinnati VA Medical Center Platelet mean volume [Entitic volume] in Blood by Automated countOrdered By: Madison Drew on 76-04-7831Tbtvfybn mean volume (Bld) [Entitic vol]8.4 fLNormal 6.6-10.1FCincinnati VA Medical CenterComment on above:Performed By: #### CBC, CMP #### [facility] [address] [place] [address] USAPlatelets [#/volume] in Blood by Automated countOrdered By: Madison Drew on 93-88-8187Glthulink (Bld) [#/Vol]116 10*3/cSTjc762-673 [facility] ClinicComment on above:Performed By: #### CBC, CMP #### [place] [address] USAPotassium [Moles/volume] in Serum or PlasmaOrdered By: Madison Drew on 14-49-0547Kfietqrvg [Moles/Vol]4.3 mmol/LNormal3.5-5.1FCincinnati VA Medical CenterComment on above:Performed By: #### CBC, CMP #### [place] [address] USAProtein Test strip (U) [Mass/Vol]Ordered By: Madison Drew on 10-56-1980Emkmnqa (U) [Mass/Vol]NegativeNegativeMarietta Osteopathic ClinicProtein [Mass/volume] in Serum or PlasmaOrdered By: Madison Drew on 19-70-0798Jdagblt [Mass/Vol]6.2 g/dLLow6.4-8.9[facility] Comment on above:Performed By: #### CBC, CMP #### [facility] [address] [place] [address] USASerum globulin measurement by calculation (mass/volume) Ordered By: Madison Drew on 16-14-0390Nhgwvjkt (S) [Mass/Vol]2.2 g/dLNormal [facility] ClinicComment on above:Performed By: #### CBC, CMP #### [place] [address] USASerum or plasma albumin/globulin mass ratioOrdered By: Madison Drew on 21-98-4564Quimwba/Globulin [Mass ratio]1.8 {ratio}Normal [facility] ClinicComment on above:Performed By: #### CBC, CMP #### [place] [address] USASerum or plasma anion gap determinationOrdered By: Madison Drew on 13-16-1451Cpawx gap [Moles/Vol]15.7 mmol/LHigh6.0-15.0M[facility] Osteopathic ClinicComment on above:Performed By: #### CBC, CMP #### [place] [address] USASodium [Moles/volume] in Serum or PlasmaOrdered By: Madison Drew on 73-89-5472Wzlcgo [Moles/Vol]139 mmol/LJgbtgl107-265VekndgzknMarietta Osteopathic ClinicComment on above:Performed By: #### CBC, CMP #### [place] [address] USASpecific gravity Test strip (U) [Rel density]Ordered By: Madison Drew on 08-96-0287Psjixurg gravity (U) [Rel density]1.0141.001-1.030 [facility]opathic ClinicUrea nitrogen [Mass/volume] in Serum or Plasma Ordered By: Madison Drew on 87-67-2441Tljs nitrogen [Mass/Vol]38 mg/dLHigh7-25 [facility] ClinicComment on above:Performed By: #### CBC, CMP #### [place] [address] USAUrinalysison 32-19-8738Hvfcimxho,UrineNegativeNormal NegativeThe Select Specialty Hospital Physician GroupComment on above:Order Comment: Name Collection Type:: Clean-Voided MidstreamPerformed By: #### UA #### [place] [address] USAGlucose Ql (U)>=NormalNormOhioHealth Southeastern Medical Centere [facility] Comment on above:Order Comment: Name Collection Type:: Clean-Voided Midstream Performed By: #### UA #### [place] [address] USANitrite,UrineNegativeNormalNegativeMorton Plant Hospital Physician GroupComment on above:Order Comment: Name Collection Type:: Clean-Voided MidstreamPerformed By: #### UA #### [place] [address] USAOccult Blood,UrineNegativeNormalNegativeThe [facility] Hospital Physician GroupComment on above:Order Comment: Name Collection Type:: Clean- Voided MidstreamResult Comment: PERFORMED BY: [place] [address] PATHOLOGIST DIRECTOR OF REIMBURSEMENT DORITA KOROMA M.D.Performed By: #### UA #### [place] [address] USAProtein,UrineNegativeNormalNegativeThe [facility] Special[facility] Hospital Physician GroupComment on above:Order Comment: Name Collection Type:: Clean-Voided MidstreamPerformed By: #### UA #### [place] [address] USASpecificy [place],Urine1.160Witioo4.001-1.030The [facility] Hospital Physician GroupComment on above:Order Comment: Name Collection Type:: Clean- Voided MidstreamPerformed By: #### UA #### [place] [address] USAUrobilinogen,UrineNormalNormalNormalThe [facility] Hospital Physician GroupComment on above:Order Comment: Name Collection Type:: Clean- Voided MidstreamPerformed By: #### UA #### [facility] [address] [place] [address] USAUrobilinogen Test strip (U) [Mass/Vol]Ordered By: Madison Drew on 06-64-6661Rizfnoqsjmkw (U) [Mass/Vol]Normal mg/dLNormTriHealth Bethesda Butler HospitalpH of Urine by Test stripOrdered By: Madison Drew on 14-08-3168yK (U)8.0 [pH]Normal5.0-9.0M[facility] Osteopathic ClinicComment on above:Order Comment: Name Collection Type:: Clean-Voided MidstreamPerformed By: #### UA #### [place] [id number] USANo Panel InformationOrdered By: Madison Wood on 93-05-9254Caeuxgaikozol Pathology TestSee commentMarietta Osteopathic ClinicComment on above:See report. Scanned copy available in EMR.Pathology Request for Lab Corpon 93-16-2528Mrsefyjfj Request for Lab CorpHCA Florida Palms West Hospital Physician GroupComment on above:Order Comment: PROSTATE BIOPSYResult Comment: See report. Scanned copy available in EMR. PERFORMED BY: [place] [id number] PATHOLOGIST DIRECTOR OF REIMBURSEMENT DORITA KOROMA M.D.Performed By: #### PATH TO [facility] #### [place] [id number] USAMLR HEMOGLOBIN A1Con 24-78-9501Hbebtot [Mass/Vol]151 mg/dL [facility]–SmithvilleHbA1c (Bld) [Mass fraction]6.9 %High4.5 - 6.2 %[facility]OMMer[facility] Hospital South, [facility] Comment on above:ADA RECOMMENDED LIMIT 4.0 - 6.0 ADA THERAPEUTIC TARGET < 7.0 ACTION SUGGESTED > 7.0 No Panel Informationon 34-40-0981Swoshifpjbjqti and review of laboratory results AbnormalNOMS HealthcareCLINISYNCNOMS HealthcareTBH MICROALB CREAT RATIO RANDOMon 43-37-3943YWTFXQCNEB URINE RZMTFJ55.26 mg/dL20.00 - 300.00 mg/dLNOMS Healthcare MICROALBUM CREATININE RATIO UR57.4 mg/gHigh0.0 - 29.9 mg/gNOMS HealthcareComment on above:NO MICROALBUMINURIA 0-29 MG/G CLINICAL MICROALBUMINURIA 30-300 MG/G MACROALBUMINURIA >300 MG/G MICROALBUMIN URINE RANDOM3 mg/dLNINF - 30.0 mg/dLNONJ HealthcareISTAT XRay CREon 44-84-3783AKFMV GFR57.289NoCaroMont Health Physician GroupComment on above: Result Comment: PERFORMED BY: [place] [address] PATHOLOGIST DIRECTOR OF REIMBURSEMENT DORITA KOROMA M.D.Performed By: #### ISCRE #### [place] [address] USAMR prostate wo/w conon 98-30-0354NH prostate wo/w con [facility] [place] [address] [place] [address] MRI Report Signed Patient: Manuel Balderas MR#: [id number] : 1950 Acct:[id number] Age/Sex: 75 / M ADM Date: 04/23/25 Loc: Room: Type: [facility] Attending Dr: Madison Wood MD Copies to: [...] recommended. Impression dictated by: Rickie Cornejo Jr., DPatricia 04/23/2025 4:52 PM Dictation Location: [place] [address] Transcribed By: [facility] 04/23/25 165 Dictated By: Rickie Cornejo Jr, DO 04/23/25 1645 Signed By: 04/23/25 1652[facility] Physician GroupNo Panel InformationOrdered By: Madison Wood on 92-87-6534Ghugmbn Estimated GFR (eGFR)57.289[facility] Osteopathic ClinicWhole blood creatinine measurementOrdered By: Madison Wood on 58-03-4447Mvnzhzbxav [Mass/Vol]1.3 mg/dLNormal0.6-1.3FCincinnati VA Medical CenterComment on above:ER/ESD physician is notified/shown all ISTAT results.Critical values may be confirmed by laboratorytesting ifdeemed necessary by ER attending doctor.Result Comment: ER/ESD physician is notified/shown all ISTAT results. Critical values may be confirmed by laboratory testing if deemed necessary by ER attending doctor.Performed By: #### ISCRE #### [place] [address] USAAmbulatory Visit Summaryon 31-70-9364Qousmkqfeh Visit SummaryAmbulatory Visit Summary MANUEL BALDERAS :1950 Visit Date:04/02/2025 [...] oral tablet) hydrochlorothiazide (hydrochlorothiazide 25 mg Tab) hydrochlorothiazide-losartan (hydrochlorothiazide-losartan 12.5 mg-100 mg oral tablet) insulin glargine [...] ureteric stent (10/26/2013), Cystoscopic removal of ureteric stent(07/01/2004), Dormia basket extraction of ureteric calculus (06/24/2004), Ankle, Back, Capsulotomy of lens, Cataract, Cellulitis, Colonoscopy, History of hernia repair, History of varicose veins, Rotator cuff. What to do next You Need to Schedule the Following Appointments Follow Up with NINA LEVY, MELANIE Sims When: Where: [facility] [address] [place] [address]- [phone] Medications What How Much When Why Instructions [...] oral delayed release capsule) 1 Capsules Contact prescribingphysician if questions or concerns Unchanged fenofibrate (fenofibrate 160 mg oral tablet) 1 Tablets Contact prescribing physician if questions or concerns Unchanged hydrochlorothiazide (hydrochlorothiazide 25 mg Tab) 1 Tablets Contact prescribing physician if questions or concerns Unchanged hydrochlorothiazide-losartan (hydrochlorothiazide-losartan 12.5 mg-100 mg oral tablet) 1 Tablets [...] you for choosing us (more content not included)...Normal [facility] CenterUrology Office/Clinic Noteon 23-22-4245Jnqbzxq Office/Clinic NoteUrology Office/Clinic Note Chief Complaint Elevated PSA HPI Staff 74 yr old male here for 3 mth f/u w/ PVR & PSA DX: BPH with urinary obstruction, elevated PSA, family history of prostate cancer, gross hematuria,nocturia, personal history of kidney stones, proteinuria, renal [...] ca. Follow-up With When Contact Information NINA LEVYMadison, URL [facility] [address] [place] [phone] Additional Instructions: schedule prostate MRI Patient Education [...] ureteric stent (10/26/2013), Cystoscopic removal of ureteric stent(07/01/2004), Dormia basket extraction of u (more content not included)...[facility] HospitalComment on above:Result Comment: Electronically Signed By: Madison WOOD MD\.br\Date and Time Signed: 04/02/25 13:14 EDT\.br\Electronically Co-Signed By: Kenyatta Mosher\.br\Date and Time Co-Signed: 04/02/25 13:13 EDTMHPT PSA, DIAGNOSTICon 03-15-2025 Interpretation and review of laboratory resultsAbnormalNOMS HealthcarePROSTATE SPECIFIC ANTIGEN DX5.8 ng/mLHighNINF - 4.00 ng/mLNOMS HealthcareCLINISYNCNOMS HealthcareAmbulatory Visit Summaryon 22-59-1158Tdplqhljwt Visit Summary Ambulatory Visit Summary MANUEL BALDERAS :1950 Visit Date:12/18/2024 Ambulatory Visit Instructions Your Diagnosis OAB (overactive bladder) Elevated PSA Kidney stones BPH with urinary obstruction Family history of prostate cancer in father Your Care Team Attending Physician - NINA LEVY, Madison Crespo Primary Care Physician - JELENA LEVY, KHOA Yanes This Is Your Medications List allopurinol (allopurinol 300 mg Tab) hydrochlorothiazide-losartan (hydrochlorothiazide-losartan 12.5 mg-100 mg oral tablet) sodium bicarbonate [...] ureteric stent (10/26/2013), Cystoscopic removal of ureteric stent(07/01/2004), Dormia basket extraction of ureteric calculus (06/24/2004), [...] Follow-Up Appointments Wednesday 11:45 AM EDT With: Madison WOOD MD Where: [facility] [address] [place] [address]- You Need to Schedule the Following Appointments Follow Up with Madison WOOD MD, URL When: Comments: 3 mos w/ PVR and PSA Where: [facility] [address], [facility] [place] [address]- [phone] Medications What How Much When Why Instructions New solifenacin (Vesicare 10 mg Tab) 1 Tablets By Mouth Every day OAB (overactive bladder) Refills:11 Pickup at [facility] Unchanged allopurinol (allopurinol 300 mg Tab) 1 Tablets By Mouth Every day Unchanged hydrochlorothiazide-losartan (hydrochlorothiazide-losartan 12.5 mg-100 mg oral tablet) 1 Tablets [...] physician if questions or concerns Pharmacy Information [facility]: [address] [place] [phone] What How Much When Comments Stop Taking mirabegron (mirabegron 50 mg oral tablet, extended release) 1 Tablets By M (more content not included)...[facility] Ambulatory Visit SummaryAmbulatory Visit Summary MANUEL BALDERAS :1950 Visit Date:12/18/2024 Ambulatory Visit Instructions Your Diagnosis OAB (overactive bladder) Elevated PSA Kidney stones BPH with urinary obstruction Family history of prostate cancer in father Your Care Team Attending Physician - NINA LEVY, Madison Crespo Primary Care Physician - JELENA LEVY, KHOA Yanes This Is Your Medications List allopurinol (allopurinol 300 mg Tab) hydrochlorothiazide-losartan (hydrochlorothiazide-losartan 12.5 mg-100 mg oral tablet) sodium bicarbonate [...] ureteric stent (10/26/2013), Cystoscopic removal of ureteric stent(07/01/2004), Dormia basket extraction of ureteric calculus (06/24/2004), [...] Madison WOOD MD Where: [facility] [address] [place] [address] You Need to Schedule the Following Appointments Follow Up with Madison WOOD MD, URL When: Comments: 3 mos w/ PVR and PSA Where: [facility] [address], [place] [phone] Medications What How Much When Why Instructions New solifenacin (Vesicare 10 mg Tab) 1 Tablets By Mouth Every day OAB (overactive bladder) Refills:11 Pickup at [facility] Unchanged allopurinol (allopurinol 300 mg Tab) 1 Tablets By Mouth Every day Unchanged hydrochlorothiazide-losartan (hydrochlorothiazide-losartan 12.5 mg-100 mg oral tablet) 1 Tablets [...] physician if questions or concerns Pharmacy Information [facility]: [address] [place] [phone] What How Much When Comments Stop Taking mirabegron (mirabegron 50 mg oral tablet, extended release) 1 Tablets By M (more content not included)...[facility] Urology Office/Clinic Noteon 47-46-0553Jjcilib Office/Clinic NoteUrology Office/Clinic Note Chief Complaint 3 month f/u with PVR HPI Staff 74 yr old male here for 3 mth f/u w/ PVR DX: BPH with urinary obstruction, elevated PSA, family history of prostate cancer, gross hematuria,nocturia, personal history of kidney stones, proteinuria, renal [...] 10mg qd. [facility] -F/u in 3 mos w/ PVR 2. [...] Flomax 0.4 mg qd. Good stream. OAB ismore bothersome. -Cont Flomax wo changes. Pt to call for refills. 5. Family history of prostate cancer in father (Z80.42: Family history of malignant neoplasm of prostate) Cont screening above. Follow-up With When Contact Information NINA LEVY, Madison Crespo, URL [facility] [address], [place] [phone] Additional Instructions: 3 mos w/ PVR and PSA Patient Education Overactive Bladder, Adult I, Kenyatta Mosher, personally scribed for Dr. Wood on 12/18/2024 11:32:33. . Documentation recorded by the scribeKenyatta, accurately reflects the services(s) I performed and [...] nephrolithotomy (02/21/2014), Percutaneous nephroli (more content not included)...[facility] HospitalComment on above:Result Comment: Electronically Signed By: Madison WOOD MD\.br\Date and Time Signed: 12/18/24 11:36 EST\.br\Electronically Co-Signed By: Kenyatta Mosher\.br\Date and Time Co-Signed: 12/18/24 11:33 ESTCT ANKLE LT WO CON [place] 74[place]68[place], [place] [address] [place] Scan Report Signed Patient: MANUEL BALDERAS MR#: [id number] : 1950 Acct:[id number] Age/Sex: 74 / M ADM Date: 11/17/24 Loc: CT Attending Dr: Non-Staff Physician Minerva Ordering Physician: Prinec Greer M.D. Date of Service: 11/17/24 Procedure(s): CT ankle LT wo con Accession Number(s): [id number] cc: KHOA BOWLES [place] [address] Patient Name: MANUEL BALDERAS MRN: [id number] date: 1950 Sex: M Assigned Patient Location: CT Current Patient Location: CT Accession/Order Number: [id number] Exam Date: 11/17/2024 09:52 Report Date: 11/18/2024 [...] M.D. Signed By: 11/18/24907 DD/ 4 TD/TT: Application Support Administrator:TBHRadiology, Radiologist, - 11/18/2024 [place] [address] CT Scan Report Signed Patient: MANUEL BALDERAS MR#: [id number] : 1950 Acct:[id number] Age/Sex: 74 / M ADM Date: 11/17/24 Loc: CT Attending Dr: Non-Staff Physician Palma Ordering Physician: Prince Greer M.D. Date of Service: 11/17/24 Procedure(s): CT ankle LT wo con Accession Number(s): [id number] cc: KHOA BOWLES The [address] [address] Patient Name: MANUEL BALDERAS MRN: [id number] date: 1950 Sex: M Assigned Patient Location: CT Current Patient Location: CT Accession/Order Number: [id number] Exam Date: 11/17/2024 09:52 Report Date: 11/18/2024 [...] M.D. Signed By: 11/18/24907 DD/ 4 TD/TT: Application Support Administrator: JENNIFER HealthcareRadiology Study observation (narrative)NOMS HealthcareCT ANKLE LT WO CONOrdered By: Radiologist Radiology on 61-34-9196SPTF Healthcare Work Phone: ccf CMP (CMP) (FOR REMOTE [facility] USE)on 41-56-7163Zdohjee [Mass/Vol]3.8 g/dL3.4 - 5.0 g/dLNOMS HealthcareALBUMIN GLOBULIN RATIO1.5NONJ HealthcareALP [Catalytic activity/Vol]60 U/L46 - 116 U/LNOMS HealthcareALT [Catalytic activity/Vol]56 U/L16 - 63 U/LNOMS HealthcareAnion gap [Moles/Vol] 14.2 mmol/LNOMS HealthcareAST [Catalytic activity/Vol]42 U/LHigh15 - 37 U/LNOMS HealthcareBilirubin [Mass/Vol]0.5 mg/dL0.2 - 1.0 mg/dLNONJ HealthcareCalcium [Mass/Vol]10.2 mg/dLHigh8.5 - 10.1 mg/dLNONJ HealthcareChloride [Moles/Vol]106 mmol/L98 - 107 mmol/LNOMS HealthcareCO2 [Moles/Vol]27.4 mmol/L21.0 - 32.0 mmol/L NOMS HealthcareCreatinine [Mass/Vol]1.32 mg/dLHigh0.70 - 1.30 mg/dLNONJ HealthcareGFR/1.73 sq M.predicted CKD-EPI (S/P/Bld) [Vol rate/Area]>60>=60 mL/min/1.73m 2NOMS HealthcareGlobulin (S) [Mass/Vol]2.6 g/dLNOMS Healthcare Glucose [Mass/Vol]176 mg/aBRrgr77 - 106 mg/dLNONJ HealthcareInterpretation and review of laboratory resultsAbnormalNOMS HealthcarePotassium [Moles/Vol]4.6 mmol/L3.5 - 5.1 mmol/LNOMS HealthcareProtein [Mass/Vol]6.4 g/dL6.4 - 8.2 g/dL NOMS HealthcareSodium [Moles/Vol]143 mmol/L136 - 145 mmol/LNOMS HealthcareTBH EGFR-NON AF UMCCOQTU61Nxp>=60 mL/min/1.73m 2NOMS HealthcareUrea nitrogen [Mass/Vol]35 mg/dLHigh7.0 - 18.0 mg/dLNOMS HealthcareUrea nitrogen/Creatinine [Mass ratio]26.5 mg/mgNOMS HealthcareCLINISYNCNOMS HealthcareAmbulatory Visit Summaryon 46-47-7945Udvyhrttew Visit SummaryAmbulatory Visit Summary MANUEL BALDERAS :1950 Visit Date:09/04/2024 [...] mg Cap) hydrochlorothiazide (hydrochlorothiazide 25 mg Tab) hydrochlorothiazide-losartan (hydrochlorothiazide-losartan 12.5 mg-100 mg oral tablet) insulin glargine [...] ureteric stent (10/26/2013), Cystoscopic removal of ureteric stent(07/01/2004), Dormia basket extraction of ureteric calculus (06/24/2004), [...] Madison WOOD MD Where: [facility] [address] [place] [address]- You Need to Schedule the Following Appointments Follow Up with Madison WOOD MD, URL When: Where: [facility] [address], [place] [address]- Medications What How Much When Instructions New mirabegron (mirabegron 50 mg oral tablet, extended release) 1 Tablets By Mouth Every day Duration: 30 Days Refills: 11 Pickup at [id number] Unchanged allopurinol (allopurinol 300 mg Tab) 1 [...] prescribing physician if questions or concerns Unchanged hydrochlorothiazide-losartan (hydrochlorothiazide-losartan 12.5 mg-100 mg oral tablet) 1 Tablets [...] physician if questions or concerns Pharmacy Information [id number] [address] [place], [place] [phone] Allergies Demerol (Shakes) Meperidine HCl-Promethazine HCl (Unknown) Problems Ongoing - Any problem that you are currently recei (more content not included)...[facility] HospitalUrology Office/Clinic Noteon 47-15-1107Qzjxqte Office/Clinic NoteUrology Office/Clinic Note Chief Complaint 1yr f/u HPI Staff 74 yr old male here for 1 yr f/u w/ KUB and PSA. Pt unable to provide urine sample today. DX: BPH with urinary obstruction, elevated PSA, family history of prostate cancer, gross hematuria,nocturia, personal history of kidney stones, proteinuria, renal [...] mg ER qd. SEs discussed. Sent to [facility]. 3. Elevated PSA (R97.20: Elevated prostate specific [...] screening above. Follow-up With When Contact Information INNA LEVY, Madison Crespo, URL [facility] [address], [place] [address]- Additional Instructions: 3 mos with PVR Patient [...] ureteric stent (10/26/2013), Cystoscopi (more content not included)...[facility] HospitalComment on above:Result Comment: Electronically Signed By: Madison WOOD MD\.br\Date and Time Signed: 09/04/24 14:27 EST\.br\Electronically Co-Signed By: Kenzie Fierro P\.br\Date and Time Co-Signed: 09/04/24 14:26 ESTXR ABDOMEN 1Von 04-94-3913[place] [address] XRay Report Signed Patient: MANUEL BALDERAS MR#: [id number] : 1950 Acct:[id number] Age/Sex: 74 / M ADM Date: 08/31/24 Loc: LAB Attending Dr: Madison Wood M.D. Ordering Physician: Madison Wood M.D. Date of Service: 08/31/24 Procedure(s): XR abdomen 1V Accession Number(s): [id number] cc: KHOA BOWLES ; Madison Wood M.D. [place] [address] Patient Name: MANUEL BALDERAS MRN: [id number] date: 1950 Sex: M Assigned Patient Location: LAB Current Patient Location: Accession/Order Number: [id number] Exam Date: 08/31/2024 15:00 Report Date: 09/02/2024 06:56 At the request of: MADISON WOOD Procedure: [...] appreciable urinary tract calculi. Electronically authenticated by: KEAGAN HERNANDEZ Date: 09/02/2024 06:56 Dictated By: Keagan Hernandez M.D. Signed By: 09/02/24 0659 DD/ TD/TT: Application Support Administrator:TBHRadiology, Radiologist, - 09/02/2024 [place] [address] XRay Report Signed Patient: MANUEL BALDERAS MR#: [id number] : 1950 Acct:[id number] Age/Sex: 74 / M ADM Date: 08/31/24 Loc: LAB Attending Dr: Madison Wood M.D. Ordering Physician: Madison Wood M.D. Date of Service: 08/31/24 Procedure(s): XR abdomen 1V Accession Number(s): [id number] cc: KHOA BOWLES ; Madison Wood M.D. [place] [id number] Patient Name: MANUEL BALDERAS MRN: [id number] date: 1950 Sex: M Assigned Patient Location: LAB Current Patient Location: Accession/Order Number: [id number] Exam Date: 08/31/2024 15:00 Report Date: 09/02/2024 06:56 At the request of: MADISON WODO Procedure: XR abdomen 1V EXAMINATION: XR abdomen [...] appreciable urinary tract calculi. Electronically authenticated by: KEAGAN HERNANDEZ Date: 09/02/2024 06:56 Dictated By: Keagan Hernandez M.D. Signed By: 09/02/2459 DD/ 5 TD/TT: Application Support Administrator: JENNIFER HealthcareRadiology Study observation (narrative)[facility] HealthcareXR ABDOMEN 1VOrdered By: Radiologist Radiology on 35-44-2350WZKL Healthcare Work Phone: mhPT PSA, DIAGNOSTICon 51-86-7652Geewgfhaqxjtlm and review of laboratory resultsAbnormalNONJ HealthcarePROSTATE SPECIFIC ANTIGEN DX 5.17 ng/mLHighNINF - 4.00 ng/mLNOMS HealthcareCLINISYNCNOMS HealthcareVC EXT VENOUS REFLUX ROSE MARY LMTDon 58-66-4[address] [address] Vein Report Signed Patient: MANUEL BALDERAS MR#: [id number] : 1950 Acct:[id number] Age/Sex: 73 / M ADM Date: 03/20/24 Loc: VC Attending Dr: Callie Mora M.D. Ordering Physician: Callie Mora M.D. Date of Service: 03/20/24 Procedure(s): VC EXT Venous Reflux ROSE MARY LMTD Accession Number(s): [id number] cc: KHOA BOWLES ; Callie Mora M.D. Patient Name: MANUEL BALDERAS MR#: [id number] : 1950 Exam Date: 03/20/2024 Ordering Doctor: [...] calf GSV. Flow: Mild deep venous reflux. Business Office Manager: Distal medial lower leg 3.7 mm with [...] saphenous vein venous insufficiency without dilatation 4. Tuok-jv-sissbeqp right anterior accessory saphenous vein venous insufficiency with borderline dilatation 5. Mild bilateral deep vein reflux 6. Bilateral popliteal fossa collections likely representing popliteal cysts 7. Bilateral incompetent varicose veins 1. Dictated by: Tali Latham MD on 03/22/2024 at 08:54 Approved by: Tali Latham MD on 03/22/2024 at 08:57 Dictated By: Tali Latham M.D. Signed By: 03/22/24 (more content not included)...TBHRadiology, Radiologist, - 03/22/2024 [place] [address] Vein Report Signed Patient: MANUEL BALDERAS MR#: [id number] : 1950 Acct:[id number] Age/Sex: 73 / M ADM Date: 03/20/24 Loc: VC Attending Dr: Callie Mora M.D. Ordering Physician: Callie [place] M.D. Date of Service: 03/20/24 Procedure(s): VC EXT Venous Reflux ROSE MARY LMTD Accession Number(s): [id number] cc: KHOA BOWLES ; Callie Mora M.D. Patient Name: MANUEL BALDERAS MR#: [id number] : 1950 Exam Date: 03/20/2024 Ordering Doctor: [...] calf GSV. Flow: Mild deep venous reflux. Business Office Manager: Distal medial lower leg 3.7 mm with [...] saphenous vein venous insufficiency without dilatation 4. Ckpz-kx-smgsmhhb right anterior accessory saphenous vein venous insufficiency with borderline dilatation 5. Mild bilateral deep vein reflux 6. Bilateral popliteal fossa collections likely representing popliteal cysts 7. Bilateral incompetent varicose veins 1. Dictated by: Tali Latham MD on 03/22/2024 at 08:54 Approved by: Tali Latham MD on 03/22/2024 at 08:57 Dictated By: Tali Latham M.D. Signed By: 03/22/2458 DD/ TD/TT: Application Support Administrator: JENNIFER HealthcareRadiology Study observation (narrative)[facility] HealthcareVC EXT VENOUS REFLUX ROSE MARY LMTDOrdered By: Radiologist Radiology on 65-30-2494RWHBSaint Luke's North Hospital–[facility]ville Work Phone: cITRATE URINE 24HRon 65-85-2625Wsrwnf Acid, U, 24hr 1042 mg/24 edXfcxyp069-6899Diw [facility] HospitalComment on above:Result Comment: This test was developed and its performance characteristics determined by [employer]. It has not been cleared or approved by the Food and Drug Administration.Performed By: #### CBC #### [facility] [address] [place] [address] Dr. Cleveland SnowdenCitric Acid, Dmtkj820 mg/LNormalUndefinedMercy Health Defiance Hospital Comment on above:Performed By: #### CBC #### [facility] [address] [place] [address] Dr. Cleveland SnowdenOXALATE 24HR URINEon 59-54-2247Cszjgsul, Urine19 mg/LNormal UndefinedMercy Health Defiance HospitalComment on above:Performed By: #### CBC #### [facility] [address] [place] [address] Dr. Cleveland SnowdenOxalates, Urine 24hr27 mg/24 hrNormal7-44The [facility] Comment on above:Performed By: #### CBC #### [facility] [address] [place] [address] Dr. Cleveland SnowdenMAGNESIUM 24HR URINEon 27-89-8517Bniuvwzpz 24hr Urine82.7 mg/24 quVuzhnf70.0-293.0The [facility] HospitalComment on above:Performed By: #### CBC #### [facility] [address] [place] [address] Dr. Cleveland SnowdenMagnesium UR5.8 mg/dLNormalNot Estab.The [facility] HospitalComment on above:Performed By: #### CBC #### [facility] [address] [place] [address] Dr. Cleveland SnowdenPHOSPHORUS 24HR URINEon 17-91-8847Esyizardbc, Urine59.7 mg/dL NormalNot Estab.The [facility] HospitalComment on above:Performed By: #### PT, PTT #### [facility] [address] [place] [address] Dr. Cleveland SnowdenPhosphorus, Urine 25co081 mg/24 edTdqahw816-1329Dxm [facility] on above:Performed By: #### PT, PTT #### [facility] [address] [place] [address] Dr. Cleveland SnowdenPTH INTACTon 58-13-5716WQM, Bmcxqi76 pg/wVFegaod59-20Ccc [facility] on above:Performed By: #### PTHINT #### [facility] [address] [place] [address] Dr. Cleveland SnowdenURIC ACID 24 HR URINEon 12-59-8755Nmkh Acid, Urine36.4 mg/dL NormalNot Estab.The [facility] HospitalComment on above:Performed By: #### PT, PTT #### [facility] [address] [place] [address] Dr. Cleveland SnowdenUric Acid, Urine 23zi328.7 mg/24 tbJlolna763.1-771.1The [facility] on above:Performed By: #### PT, PTT #### [facility] [address] [place] [address] Dr. Cleveland SnowdenBUNon 50-38-8023Fbtm nitrogen [Mass/Vol]22.0 mg/dLCritically high 7.0-18.0The [facility] on above:Performed By: #### CBC #### [facility] [address] [place] [address] Dr. Cleveland SnowdenCALCIUMon 74-30-4120Octroxk [Mass/Vol]9.7 mg/dLNormal8.5-10.1The [facility] on above:Performed By: #### CBC #### [facility] [address] [place] [address] Dr. Cleveland SnowdenCALCIUM 24 HR URINEon 65-14-1025NDKK, 24 HR UR84.1 mg/24 hr Critically qjo690.0-300.0[facility] on above:Performed By: #### [id number] #### [facility] [address] [place] [address] Dr. Cleveland Campuzano CALCIUM5.9 mg/dLNormal5.1-21.0The [facility] on above:Performed By: #### [id number] #### [facility] [address] [place] [address] Dr. Cleveland Campuzano TOT NUF2078 ml/24 HRNormalThe [facility] HospitalComun[facility] on above:Performed By: #### [id number] #### [facility] [address] [place] [address] Dr. Cleveland SnowdenPerformed By: #### TIRT20P, NA24U #### [facility] [address] [place] [address] Dr. Cleveland SnowdenPerformed By: #### PT, PTT #### [facility] [address] [place] [address] Dr. Cleveland SnowdenCHLORIDEon 00-67-8843Vctqxaxh [Moles/Vol]107 mmol/UPgzfme53-922 The [facility] on above:Performed By: #### CBC #### [facility] [address] [place] [address] Dr. Clevelnad SnowdenCO2on 14-23-4297YP2 [Moles/Vol]33.7 mmol/LCritically high 21.0-32.0The [facility]Com[facility] on above:Performed By: #### A1C #### [facility] [address] [place] [address] Dr. Cleveland Head 24 HR URINEon 49-53-1462UIGJ, 24 HR YL5053.21 mg/24 hrNormal 1,000.00-2,000.00The [facility] on above:Performed By: #### PT, PTT #### [facility] [address] [place] [address] Dr. Cleveland Dixon CREAT78.26 mg/fIXxsldk73.00-300.00The [facility] Comment on above:Performed By: #### PT, PTT #### [facility] [address] [place] [address] Dr. Cleveland SnowdenCREATININEon 63-20-8262Jomazujtfa [Mass/Vol]0.91 mg/dLNormal 0.70-1.30The [facility] HospitalComment on above:Performed By: #### A1C #### [facility] [address] [place] [address] Dr. Cleveland RubioGFR-AF SOUTH AFRICAN>60Normal>=60The [facility] HospitalComment on above:Performed By: #### A1C #### [facility] [address] [place] [address] Dr. Cleveland RubioGFR-NON AF SOUTH AFRICAN>60Normal>=60The [facility] HospitalComment on above:Performed By: #### A1C #### [facility] [address] [place] [address] Dr. Cleveland Campbell 94-21-3310Uwuonj [Moles/Vol]144 mmol/TSbftll328-299Haa [facility] HospitalComment on above:Performed By: #### CBC #### [facility] [address] [place] [address] Dr. Cleveland SnowdenPOTASSIUMon 43-40-0161Hltsfqats [Moles/Vol]4.1 mmol/LNormal 3.5-5.1The [facility] HospitalComment on above:Performed By: #### A1C #### [facility] [address] [place] [address] Dr. Cleveland Wilson 24 HR URINEon 65-40-1267KL, 24 HR UR221 mmol/24 hr Critically pjqp45-126Rsp [facility] HospitalComment on above:Performed By: #### EORM15S, NA24U #### [facility] [address] [place] [address] Dr. Cleveland Marquezum (U) [Moles/Vol]155 mmol/LCritically kyqt34-20Gko [facility] HospitalComment on above:Performed By: #### [id number], NA24U #### [facility] [address] [place] [address] Dr. Cleveland SnowdenURIC ACID SERUMon 86-47-0541Crqtm [Mass/Vol]4.3 mg/dLNormal 3.5-7.2The [facility] HospitalComment on above:Performed By: #### CBC #### [facility] [address] [place] [address] Dr. Cleveland SnowdenPOINT OF CARE GLUCOSEon 83-67-4472Vmbaolr [Mass/Vol]237 mg/dL Critically frii55-887Tqv [facility] HospitalComment on above:Performed By: #### PT, PTT #### [facility] [address] [place] [address] Dr. Cleveland SnowdenXR KUB 1 VIEWon 17-53-9144IC KUB 1 VIEWEXAM: Abdomen: HISTORY: Follow-up kidney stones. Left ESWL. [...] Electronically authenticated by: ISAK CORTEZ Date: 2023-01-14 08:37[facility] AUTO DIFFon 45-40-1255HBBY #0.0 103/ulNormal0.0-0.1The [facility] HospitalComment on above:Performed By: #### CBC #### [facility] [address] [place] [address] Dr. Cleveland SnowdenBasophils/100 WBC (Bld)0.4 %Normal0.2-2.0[facility] Comment on above:Performed By: #### CBC #### [facility] [address] [place] [address] Dr. Cleveland Ritter #0.2 103/ulNormal0.0-0.7The [facility] HospitalComment on above: Performed By: #### CBC #### [facility] [address] [address] [address] Cleveland Rubioosinophils/100 WBC (Bld)4.4 %Normal0.9-7.0The [facility] Comment on above:Performed By: #### CBC #### [facility] [address] [address] [address] Cleveland Rubiorythrocyte distribution width (RBC) [Ratio]14.8 %Oxgivm93.0-15.0 The [facility] HospitalComment on above:Performed By: #### CBC #### [facility] [address] [place] [address] Dr. Cleveland SnowdenHematocrit (Bld) [Volume fraction]35.7 %Critically low42.0-54.0 The [facility] HospitalComment on above:Performed By: #### CBC #### [facility] [address] [place] [address] Dr. Cleveland SnowdenHemoglobin (Bld) [Mass/Vol]12.0 g/dLCritically low14.0-18.0[facility] HospitalComment on above:Performed By: #### CBC #### [facility] [address] [place] [address] Dr. Cleveland Alicea #0.03 10e3/ulNormal0.00-0.03The [facility] HospitalComment on above:Performed By: #### CBC #### [facility] [address] [address] [address] Cleveland Alicea %0.6 %Critically high0.0-0.5ThNationwide Children's HospitalComment on above:Performed By: #### CBC #### [facility] [address] [place] [address] Dr. Cleveland GarciaH #0.7 103/ulCritically low1.2-3.8The [facility] Comment on above:Performed By: #### CBC #### [facility] [address] [place] [address] Dr. Cleveland Garciamphocytes/100 WBC (Bld)14.4 %Critically low20.5-60.0The [facility] HospitalComment on above:Performed By: #### CBC #### [facility] [address] [address] [address] DIFF REQNONormalThe [facility] HospitalComment on above: Performed By: #### CBC #### [facility] [address] [place] [address] Dr. Cleveland Rey (RBC) [Entitic mass]31.1 qdEvzzdx94.9-34.0The [facility] HospitalComment on above:Performed By: #### CBC #### [facility] [address] [place] [address] Dr. Cleveland Rey (RBC) [Mass/Vol]33.6 g/nPPnyajv99.9-35.2The [facility] HospitalComment on above:Performed By: #### CBC #### [facility] [address] [place] [address] Dr. Cleveland Rey (RBC) [Entitic vol]92.5 bDRniara01.0-94.0The [facility] HospitalComment on above:Performed By: #### CBC #### [facility] [address] [place] [address] Dr. Cleveland Lay #0.5 103/ulNormal0.3-0.8The [facility] HospitalComment on above:Performed By: #### CBC #### [facility] [address] [place] [address] Dr. Cleveland Leeocytes/100 WBC (Bld)11.0 %Normal1.7-12.0The [facility] Comment on above:Performed By: #### CBC #### [facility] [address] [place] [address] Dr. Cleveland Durbin #3.3 103/ulNormal1.4-6.5The [facility] HospitalComment on above:Performed By: #### CBC #### [facility] [address] [place] [address] Dr. Cleveland Whitfieldutrophils/100 WBC (Bld)69.2 %Eksggi46.0-75.0The [facility] HospitalComment on above:Performed By: #### CBC #### [facility] [address] [address] [address] Cleveland SnowdenPlatelet mean volume (Bld) [Entitic vol]10.0 fLNormal9.5-13.5The [facility] HospitalComment on above:Performed By: #### CBC #### [facility] [address] [place] [address] Dr. Cleveland SnowdenPLT105 103/ulCritically spg478-634Pra [facility] HospitalComment on above:Performed By: #### CBC #### [facility] [address] [place] [address] Dr. Cleveland SnowdenRBC3.86 106/ulCritically low4.70-6.10The [facility] HospitalComment on above:Performed By: #### CBC #### [facility] [address] [place] [address] Dr. Cleveland SnowdenWBC4.8 103/ulNormal4.0-11.0The [facility] HospitalComment on above: Performed By: #### CBC #### [facility] [address] [place] [address] Dr. Cleveland SnowdenPROManny CHEM 8 (BAS METB)on 83-13-4636Dszom gap [Moles/Vol]12.7 mmol/LNormalThe [facility] HospitalComment on above:Performed By: #### CBC #### [facility] [address] [place] [address] Dr. Cleveland SnowdenCalcium [Mass/Vol]9.6 mg/dLNormal8.5-10.1[facility] Comment on above:Performed By: #### CBC #### [facility] [address] [place] [address] Dr. Cleveland SnowdenChloride [Moles/Vol]107 mmol/SKlxcls44-546Uwa [facility] Comment on above:Performed By: #### CBC #### [facility] [address] [place] [address] Dr. Cleveland SnowdenCO2 [Moles/Vol]29.0 mmol/ZXwryhj56.0-32.0The [facility] Comment on above:Performed By: #### CBC #### [facility] [address] [place] [address] Dr. Cleveland SnowdenCreatinine [Mass/Vol]0.76 mg/dLNormal0.70-1.30The [facility] HospitalComment on above:Performed By: #### CBC #### [facility] [address] [address] [address] Cleveland RubioGFR-AF SOUTH AFRICAN>60Normal>=60The [facility] HospitalComment on above:Performed By: #### CBC #### [facility] [address] [place] [address] Dr. Cleveland RubioGFR-NON AF SOUTH AFRICAN>60Normal>=60The [facility] HospitalComment on above:Performed By: #### CBC #### [facility] [address] [place] [address] Dr. Cleveland SnowdenGlucose [Mass/Vol]127 mg/dLCritically qcpw52-880Uyb [facility] HospitalComment on above:Performed By: #### CBC #### [facility] [address] [place] [address] Dr. Cleveland SnowdenPotassium [Moles/Vol]3.7 mmol/LNormal3.5-5.1[facility] Comment on above:Performed By: #### CBC #### [facility] [address] [place] [address] Dr. Cleveland SnowdenSodium [Moles/Vol]145 mmol/WNfbwbc122-440Ybu [facility] Comment on above:Performed By: #### CBC #### [facility] [address] [address] [address] Cleveland SnowdenUrea nitrogen [Mass/Vol]21.0 mg/dLCritically high7.0-18.0The [facility] HospitalComment on above:Performed By: #### CBC #### [facility] [address] [place] [address] Dr. Cleveland SnowdenUrea nitrogen/Creatinine [Mass ratio]27.6 mg/mgNormalThe [facility] HospitalComment on above:Performed By: #### CBC #### [facility] [address] [place] [address] Dr. Cleveland SnowdenPROTIMEon 20-61-0740CHG Coag (PPP) [Relative time]1.04 {INR} NormalThe [facility] HospitalComuniversity [facility] on above:Performed By: #### PT, PTT #### [facility] [address] [place] [address] Dr. Cleveland Cavazos GUIDELINESSEE BELOWMcCullough-Hyde Memorial HospitalComment on above:Result Comment: DESIRED INR: 2.0 - 3.0 CONDITIONS NOT LISTED BELOW 2.5 - 3.5 FOR PROSTHETIC HEART VALVE REPLACEMENT 2.5 - 3.5 RECURRENT THROMBOSIS Performed By: #### PT, PTT #### [facility] [address] [place] [address] Dr. Cleveland SnowdenPT Coag (PPP) [Time]11.0 sNormal9.0-11.6The [facility] Comment on above:Performed By: #### PT, PTT #### [facility] [address] [place] [address] Dr. Cleveland Daly 42-03-2861zMRQ Coag (Bld) [Time]29.6 hIpxcvq83.3-36.2The [facility] on above:Performed By: #### PT, PTT #### [facility] [address] [place] [address] Dr. Cleveland SnowdenXR KUB 1 VIEWon 84-68-0966ZC KUB 1 VIEWEXAMINATION: XR KUB 1 VIEW HISTORY: Kidney stone [...] IMPRESSION: Left nephrolithiasis Electronically authenticated by: TALI LATHAM Date: 2023-01-01 16:46[facility] HospitalGLYCOHEMOGLOBIN A1Con 32-00-6531NDL RECOMMENDATIONSEE BELOW NormalThe [facility] HospitalComun[facility] on above:Result Comment: ADA RECOMMENDED LIMIT 4.0 - 6.0 ADA THERAPEUTIC TARGET < 7.0 ACTION SUGGESTED > 7.0Performed By: #### A1C #### [facility] [address] [address] [address] Cleveland SnowdenGlucose [Mass/Vol]126 mg/dLNoSumma Health Wadsworth - Rittman Medical CenterComment on above:Performed By: #### A1C #### [facility] [address] [address] [address] Cleveland SnowdenHbA1c (Bld) [Mass fraction]6.0 %Normal4.5-6.2The [facility] HospitalComment on above:Performed By: #### A1C #### [facility] [address] [place] [address] Dr. Cleveland SnowdenXR KUB 1 VIEWon [id number] KUB 1 VIEWEXAMINATION: XR KUB 1 VIEW HISTORY: Lower urinary [...] Stable left nephrolithiasis Electronically authenticated by: TALI LATHAM Date: 2022-09-09 15:01[facility] HospitalGLYCOHEMOGLOBIN A1Con [id number] RECOMMENDATIONSEE BELOW NormalThe [facility] on above:Result Comment: ADA RECOMMENDED LIMIT 4.0 - 6.0 ADA THERAPEUTIC TARGET < 7.0 ACTION SUGGESTED > 7.0Performed By: #### A1C #### [facility] [address] [place] [address] Dr. Cleveland SnowdenGlucose [Mass/Vol]131 mg/dLMcCullough-Hyde Memorial HospitalComment on above:Performed By: #### A1C #### [facility] [address] [address] [address] Cleveland SnowdenHbA1c (Bld) [Mass fraction]6.2 %Normal4.5-6.2The [facility] HospitalComment on above:Performed By: #### A1C #### [facility] [address] [address] [address] Cleveland SnowdenLIPID PROFILEon 10-61-1850YNUU-HDL RATIO NORMSParkwood HospitalComment on above:Result Comment: 3.3 - 4.4 LOW RISK 4.4 - 7.1 AVERAGE RISK 7.1 - 11.0 MODERATE RISK >11.0 HIGH RISKPerformed By: #### A1C #### [facility] [address] [address] [address] Cleveland SnowdenCholesterol [Mass/Vol]108 mg/dLNormal<=200[facility] Comment on above:Performed By: #### A1C #### [facility] [address] [address] [address] Cleveland SnowdenCholesterol in HDL [Mass/Vol]36 mg/dLCritically pka81-28Eoq [facility] HospitalComment on above:Performed By: #### A1C #### [facility] [address] [address] [address] Cleveland SnowdenCholesterol in LDL [Mass/Vol]45.0 mg/dLMcCullough-Hyde Memorial HospitalComment on above:Performed By: #### A1C #### [facility] [address] [address] [address] Cleveland SnowdenCholesterol.total/Cholesterol in HDL [Mass ratio]3.0 {ratio} NormalMercy Health Defiance HospitalComment on above:Performed By: #### A1C #### [facility] [address] [address] [address] Cleveland SnowdenHDL NORMAL> or = 60 mg/dl - LOW CARDIOVASCULAR RISK <40 mg/dl - HIGH CARDIOVASCULAR RISKMcCullough-Hyde Memorial HospitalComuniversity of michigan hospital on above:Performed By: #### A1C #### [facility] [address] [address] [address] Cleveland SnowdenLDL CALC NORMALSEE BELOWMcCullough-Hyde Memorial HospitalComment on above:Result Comment: <100 mg/dl OPTIMAL 100 - 129 mg/dl NEAR OR ABOVE OPTIMAL 130 - 159 mg/dl BORDERLINE HIGH 160 - 189 mg/dl HIGH >190 mg/dl VERY HIGH Performed By: #### A1C #### [facility] [address] [address] [address] Cleveland SnowdenTriglyceride [Mass/Vol]135 mg/dLNormal<=150The [facility] Comment on above:Performed By: #### A1C #### [facility] [address] [address] [address] Cleveland SnowdenVLDL CALC27.0 mg/dLNoSumma Health Wadsworth - Rittman Medical CenterComment on above: Performed By: #### A1C #### [facility] [address] [place] [address] Dr. Cleveland SnowdenGLYCOHEMOGLOBIN A1Con 67-73-3533MSL RECOMMENDATIONSEE BELOWJoint Township District Memorial HospitalComment on above:Result Comment: ADA RECOMMENDED LIMIT 4.0 - 6.0 ADA THERAPEUTIC TARGET < 7.0 ACTION SUGGESTED > 7.0Performed By: #### A1C #### [facility] [address] [place] [address] Dr. Cleveland SnowdenGlucose [Mass/Vol]154 mg/dLNoSumma Health Wadsworth - Rittman Medical CenterComment on above:Performed By: #### A1C #### [facility] [address] [place] [address] Dr. Cleveland SnowdneHbA1c (Bld) [Mass fraction]7.0 %Critically high4.5-6.2[facility] HospitalComment on above:Performed By: #### A1C #### [facility] [address] [place] [address] Dr. Cleveland SnowdenLIPID PROFILEon [id number]-HDL RATIO NORMSEE BELOWMcCullough-Hyde Memorial HospitalComment on above:Result Comment: 3.3 - 4.4 LOW RISK 4.4 - 7.1 AVERAGE RISK 7.1 - 11.0 MODERATE RISK >11.0 HIGH RISKPerformed By: #### PT, PTT #### [facility] [address] [place] [address] Dr. Cleveland SnowdenCholesterol [Mass/Vol]104 mg/dLNormal<=200The [facility] Comment on above:Performed By: #### PT, PTT #### [facility] [address] [place] [address] Dr. Cleveland SnowdenCholesterol in HDL [Mass/Vol]24 mg/dLCritically gtc97-61Iyj [facility] HospitalComment on above:Performed By: #### PT, PTT #### [facility] [address] [address] [address] Cleveland SnowdenCholesterol in LDL [Mass/Vol]28.0 mg/dLNoSumma Health Wadsworth - Rittman Medical CenterComment on above:Performed By: #### PT, PTT #### [facility] [address] [place] [address] Dr. Cleveland Chahalestermo.total/Cholesterol in HDL [Mass ratio]4.3 {ratio} NormalThe [facility] HospitalComment on above:Performed By: #### PT, PTT #### [facility] [address] [place] [address] Dr. Cleveland Tesfaye NORMAL> or = 60 mg/dl - LOW CARDIOVASCULAR RISK <40 mg/dl - HIGH CARDIOVASCULAR RISKNoSumma Health Wadsworth - Rittman Medical CenterComment on above:Performed By: #### PT, PTT #### [facility] [address] [place] [address] Dr. Cleveland Uriarte CALC NORMALSEE BELOWNoSumma Health Wadsworth - Rittman Medical CenterComment on above:Result Comment: <100 mg/dl OPTIMAL 100 - 129 mg/dl NEAR OR ABOVE OPTIMAL 130 - 159 mg/dl BORDERLINE HIGH 160 - 189 mg/dl HIGH >190 mg/dl VERY HIGH Performed By: #### PT, PTT #### [facility] [address] [place] [address] Dr. Cleveland SnowdenTriglyceride [Mass/Vol]260 mg/dLCritically high<=150The [facility] HospitalComment on above:Performed By: #### PT, PTT #### [facility] [address] [place] [address] Dr. Cleveland SnowdenVLDL CALC52.0 mg/dLNoSumma Health Wadsworth - Rittman Medical CenterComment on above: Performed By: #### PT, PTT #### [facility] [address] [address] [address] Cleveland SnowdenPROF 14(COMP METB)on 50-96-4326Jgxqvzh [Mass/Vol]3.5 g/dLNormal 3.4-5.0The [facility] HospitalComment on above:Performed By: #### PT, PTT #### [facility] [address] [address] [address] Cleveland SnowdenAlbumin/Globulin [Mass ratio]1.1 {ratio}NormalThe [facility] HospitalComment on above:Performed By: #### PT, PTT #### [facility] [address] [place] [address] Dr. Cleveland Mesa [Catalytic activity/Vol]59 U/ZOyuddr13-904Rsh [facility] HospitalComment on above:Performed By: #### PT, PTT #### [facility] [address] [place] [address] Dr. Cleveland Delcid [Catalytic activity/Vol]46 U/UWgebdo19-19Jnq [facility] HospitalComment on above:Performed By: #### PT, PTT #### [facility] [address] [place] [address] Dr. Cleveland Acosta gap [Moles/Vol]14.7 mmol/LNormalThe [facility] Comment on above:Performed By: #### PT, PTT #### [facility] [address] [place] [address] Dr. Cleveland SnowdenAST [Catalytic activity/Vol]46 U/LCritically stnq75-15Mxk [facility] HospitalComment on above:Performed By: #### PT, PTT #### [facility] [address] [place] [address] Dr. Cleveland SnowdenBilirubin [Mass/Vol]0.5 mg/dLNormal0.2-1.0The [facility] Comment on above:Performed By: #### PT, PTT #### [facility] [address] [place] [address] Dr. Cleveland SnowdenCalcium [Mass/Vol]9.5 mg/dLNormal8.5-10.1The [facility] Comment on above:Performed By: #### PT, PTT #### [facility] [address] [place] [address] Dr. Cleveland SnowdenChloride [Moles/Vol]103 mmol/VEhlmnl91-256Itz [facility] Comment on above:Performed By: #### PT, PTT #### [facility] [address] [place] [address] Dr. Cleveland SnowdenCO2 [Moles/Vol]28.1 mmol/XTzhbsk01.0-32.0The [facility] Comment on above:Performed By: #### PT, PTT #### [facility] [address] [place] [address] Dr. Cleveland SnowdenCreatinine [Mass/Vol]0.84 mg/dLNormal0.70-1.30The [facility] HospitalComment on above:Performed By: #### PT, PTT #### [facility] [address] [place] [address] Dr. Cleveland RubioGFR-AF SOUTH AFRICAN>60Normal>=60The [facility] HospitalComment on above:Performed By: #### PT, PTT #### [facility] [address] [place] [address] Dr. Cleveland RubioGFR-NON AF SOUTH AFRICAN>60Normal>=60The [facility] HospitalComment on above:Performed By: #### PT, PTT #### [facility] [address] [place] [address] Dr. Cleveland SnowdenGlobulin (S) [Mass/Vol]3.1 g/dLNormalThe [facility] HospitalComment on above:Performed By: #### PT, PTT #### [facility] [address] [place] [address] Dr. Cleveland SnowdenGlucose [Mass/Vol]176 mg/dLCritically buaj28-273Awr [facility] HospitalComment on above:Performed By: #### PT, PTT #### [facility] [address] [place] [address] Dr. Cleveland SnowdenPotassium [Moles/Vol]3.8 mmol/LNormal3.5-5.1The [facility] Comment on above:Performed By: #### PT, PTT #### [facility] [address] [place] [address] Dr. Cleveland SnowdenProtein [Mass/Vol]6.6 g/dLNormal6.4-8.2The [facility] Comment on above:Performed By: #### PT, PTT #### [facility] [address] [place] [address] Dr. Cleveland SnowdenSodium [Moles/Vol]142 mmol/CWastzf010-251Bwh [facility] Comment on above:Performed By: #### PT, PTT #### [facility] [address] [place] [address] Dr. Cleveland SnowdenUrea nitrogen [Mass/Vol]24.0 mg/dLCritically high7.0-18.0The [facility] HospitalComment on above:Performed By: #### PT, PTT #### [facility] [address] [place] [address] Dr. Cleveland Bahena nitrogen/Creatinine [Mass ratio]28.6 mg/mgNormalThe [facility] HospitalComment on above:Performed By: #### PT, PTT #### [facility] [address] [place] [address] Dr. Cleveland SnowdenURIC ACID SERUMon 73-17-7966Ulawq [Mass/Vol]6.2 mg/dLNormal 3.5-7.2The [facility] HospitalComment on above:Performed By: #### PT, PTT #### [facility] [address] [place] [address] Dr. Cleveland SnowdenBasophils Auto (Bld) [#/Vol]on 08-79-1965Xmgzgfdps (Bld) [#/Vol] 0.0 10*3/uL0.0-0.2FCleveland Clinic CtrBasophils/100 WBC Auto (Bld)on 89-20-8615Vysyayyad/100 WBC (Bld)0.6 %[facility] CtrBlood hemoglobin measurement (mass/volume)on 81-31-4634Tuhizxdywv (Bld) [Mass/Vol]12.2 g/dL13.0-17.0[facility] CtrBlood leukocytes automated count (number/volume)on 23-43-9130IYB (Bld) [#/Vol]4.7 10*3/uL4.5-11.0[facility] CtrCreatinine and Glomerular filtration rate.predicted panel (S/P/Bld)on 71-55-1878Yechbpmpoh [Mass/Vol]0.68 mg/dL0.64-1.27[facility] CtrEosinophils Auto (Bld) [#/Vol]on 96-01-0263Xclzkqkyndv (Bld) [#/Vol] 0.1 10*3/uL0.0-0.45[facility] CtrEosinophils/100 WBC Auto (Bld) on 29-38-4906Zcmzrllznaq/100 WBC (Bld)3.1 %[facility] Erythrocyte distribution width Auto (RBC) [Ratio]on 53-39-2792Rniteqfnjwk distribution width (RBC) [Ratio]15.0 %12.0-14.8[facility] Estimated glomerular filtration rate (GFR) non- Americanon 04-03-2021 GFR/1.73 sq M.predicted among non-blacks MDRD (S/P/Bld) [Vol rate/Area]> 60 mL/MinSuburban [facility] Hospital & [facility] CtrHematocrit Auto (Bld) [Volume fraction]on 81-15-1698Xwwsolccyy (Bld) [Volume fraction]36.2 %38.8-50.0[facility] CtrLaboratory - Hematology and Cell countson 21-52-3009Pljewnjfg RBC/100 WBC (Bld) [Ratio]0.2 %0-0.5FCleveland Clinic CtrLymphocytes Auto (Bld) [#/Vol]on 74-53-0142Urygdtqvivz (Bld) [#/Vol]0.7 10*3/uL1.00-4.8[facility] CtrLymphocytes/100 WBC Auto (Bld)on 74-90-4190Tuonqhpbafr/100 WBC (Bld)14.5 %[facility] HospitalMCH Auto (RBC) [Entitic mass]on 33-48-2407JRI (RBC) [Entitic mass]31.3 pg27.5-35.2FMcKitrick Hospital MCHC Auto (RBC) [Mass/Vol]on 89-24-2836XCZX (RBC) [Mass/Vol]33.8 g/dL32.5-35.6 [facility] HospitalMCV Auto (RBC) [Entitic vol]on 68-37-2466JPG (RBC) [Entitic vol]92.6 fL83.5-101[facility] CtrMonocytes Auto (Bld) [#/Vol]on 11-03-9860Nxlcvhqcz (Bld) [#/Vol]0.5 10*3/uL0.0-0.8[facility] CtrMonocytes/100 WBC Auto (Bld)on 71-41-8379Bggfwuada/100 WBC (Bld)10.7 %[facility] HospitalNeutrophils Auto (Bld) [#/Vol]on 04-03-2021 Neutrophils (Bld) [#/Vol]3.3 10*3/uL1.8-7.7FMcKitrick Hospital Neutrophils/100 WBC Auto (Bld)on 45-14-6427Eyuaglknviy/100 WBC (Bld)71.1 % [facility] CtrNo Panel Informationon 16-15-8165Cmkhdxpod GFR ()> 60 mL/MinSuburban Community Hospital & [facility] Hospital CtrComment on above:GFR estimated reference range: According to KDOQI guidelines, <60 ml/min/1.73m2 is sufficient todiagnose a patient with chronic kidney disease.Pharmacy Creatinine Clearance (ChemN/AFCleveland Clinic CtrPlatelet mean volume Auto (Bld) [Entitic vol]on 67-27-9789Qogmgvoq mean volume (Bld) [Entitic vol]8.5 fL6.6-10.1 [facility] CtrPlatelets Auto (Bld) [#/Vol]on 32-89-0787Zburntiqk (Bld) [#/Vol]137 10*3/bX651-402YltwhseonSuburban Community Hospital & [facility] CtrRBC Auto (Bld) [#/Vol]on 07-10-5803EVC (Bld) [#/Vol]3.91 10*6/uL3.90-5.60[facility] CtrSerum or plasma calcium measurement (mass/volume)on 89-08-8532Avnyrus [Mass/Vol]9.8 mg/dL8.2-10.2FCleveland Clinic CtrSerum or plasma chloride measurement (moles/volume)on 91-65-0912Pofodghi [Moles/Vol]100 mmol/L 95-114[facility] CtrSerum or plasma glucose measurement (mass/volume)on 44-51-5617Csbpgua [Mass/Vol]184 mg/nK73-461FqzygolevDayton Osteopathic HospitalComment on above:ADA recommended reference rangeRandom Glucose Reference Range is dependent on time and content of last meal. Glucose of more than 200 mg/dL in a nonstressed, ambulatory subject supports the diagnosisof Diabetes Mellitus.Serum or plasma potassium measurement (moles/volume)on 12-09-8616Aunddzvvs [Moles/Vol]3.6 mmol/L3.5-5.1FMcKitrick Hospital Serum or plasma sodium measurement (moles/volume)on 76-47-5695Pvykje [Moles/Vol] 138 mmol/K128-578CjjflzjyyDayton Osteopathic HospitalSerum or plasma total carbon dioxide measurement (moles/volume)on 23-23-3964DA7 [Moles/Vol]26.3 mmol/L 22.0-30.0[facility] HospitalSerum or plasma urea nitrogen measurement (mass/volume)on 06-96-2471Ugxc nitrogen [Mass/Vol]17 mg/dL9-23[facility] HospitalBasophils Auto (Bld) [#/Vol]on 01-01-4603Avmkxoxmf (Bld) [#/Vol]0.0 10*3/uL0.0-0.2FCleveland Clinic CtrBasophils/100 WBC Auto (Bld)on 28-42-9252Iywfkdfik/100 WBC (Bld)0.6 %[facility] Blood hemoglobin measurement (mass/volume)on 78-14-2281Qmymiaujkz (Bld) [Mass/Vol]12.6 g/dL13.0-17.0[facility] CtrBlood leukocytes automated count (number/volume)on 56-02-3709PTA (Bld) [#/Vol]4.4 10*3/uL4.5-11.0 [facility] CtrEosinophils Auto (Bld) [#/Vol]on 02-11-2021 Eosinophils (Bld) [#/Vol]0.2 10*3/uL0.0-0.45[facility] Eosinophils/100 WBC Auto (Bld)on 70-96-7708Ieospnevdvu/100 WBC (Bld)3.8 % [facility] CtrErythrocyte distribution width Auto (RBC) [Ratio] on 01-64-5352Gethbbgmizu distribution width (RBC) [Ratio]14.9 %12.0-14.8 [facility] CtrHematocrit Auto (Bld) [Volume fraction]on 72-95-3606Tbkaivmuvp (Bld) [Volume fraction]36.1 %38.8-50.0[facility] CtrLaboratory - Hematology and Cell countson 05-75-8209Gmnfxyqia RBC/100 WBC (Bld) [Ratio]0.1 %0-0.5FCleveland Clinic CtrLymphocytes Auto (Bld) [#/Vol]on 50-74-0249Nunxipyuoaf (Bld) [#/Vol]0.7 10*3/uL1.00-4.8[facility] CtrLymphocytes/100 WBC Auto (Bld)on 63-04-0720Buueurhppkb/100 WBC (Bld)15.4 %[facility] HospitalMCH Auto (RBC) [Entitic mass]on 57-63-0164OOY (RBC) [Entitic mass]32.5 pg27.5-35.2FMcKitrick Hospital MCHC Auto (RBC) [Mass/Vol]on 58-79-2279TDJM (RBC) [Mass/Vol]34.8 g/dL32.5-35.6 [facility] HospitalMCV Auto (RBC) [Entitic vol]on 26-26-8675AVK (RBC) [Entitic vol]93.3 fL83.5-101[facility] CtrMonocytes Auto (Bld) [#/Vol]on 59-43-7746Lgsuwpmeh (Bld) [#/Vol]0.5 10*3/uL0.0-0.8[facility] CtrMonocytes/100 WBC Auto (Bld)on 81-90-0621Bassxoyxf/100 WBC (Bld)12.1 %[facility] CtrNeutrophils Auto (Bld) [#/Vol]on 02-11-2021 Neutrophils (Bld) [#/Vol]3.0 10*3/uL1.8-7.7FC[facility]tr Neutrophils/100 WBC Auto (Bld)on 40-17-1037Bwjezadmsih/100 WBC (Bld)68.1 % [facility] CtrPlatelet mean volume Auto (Bld) [Entitic vol]on 01-71-5059Pqswqlgj mean volume (Bld) [Entitic vol]8.2 fL6.6-10.1FCleveland Clinic CtrPlatelets Auto (Bld) [#/Vol]on 97-40-0961Ovnqybtoq (Bld) [#/Vol]118 10*3/dL490-121FatcntggpSuburban Community Hospital & [facility] CtrRBC Auto (Bld) [#/Vol]on 69-60-9608BOC (Bld) [#/Vol]3.87 10*6/uL3.90-5.60[facility] Creatinine (Bld) [Mass/Vol]on 66-92-7910Jljsmwxzgg [Mass/Vol]0.7 mg/dL0.6-1.3 [facility] CtrComment on above:ER/ESD physician is notified/shown all ISTAT results.Critical values may be confirmed by laboratory testing ifdeemed necessary by ER attending doctor.No Panel Informationon 77-08-8903NDN Estimated GFR > 60[facility] Comment on above:GFR estimated reference range: According to KDOQI guidelines, <60 ml/min/1.73m2 is sufficient todiagnose a patient with chronic kidney disease.POC Estimated GFR Non- Amer> 60[facility] Vital Signs Date TimeVital SignValuePerforming KsexrrpraHkrynomo49-82-2938 14:06-0400Body ermhgh920.42 cmPatricvincent Drew DO Work Phone: [phone] [place], [place] [address]2009-23-2025 14:06-0400 Body mass index (BMI) [Ratio]37 kg/a9NlzgzsqMadison Drew DO Work Phone: [phone]09-23-2025 14:06-0400 Body ssyxeq677.45 kgMadison Drew DO Work Phone: [phone] [place], [place] 2902009-23-2025 14:06-0400 Diastolic blood yuavmxrn66 mm[Hg]Madison Drew DO Work Phone: [phone] [place], [place] [address]2009-23-2025 14:06-0400 Heart rate60 /minMadison Myerspa DO Work Phone: [phone]09-23-2025 14:06-0400 SaO2% (BldA) [Mass fraction]97 %Madison Drew DO Work Phone: [phone] [place], [place] 2902009-23-2025 14:06-0400 Systolic blood hhkjesrt843 mm[Hg]Madison Drew DO Work Phone: [phone] [place], [place] [address]2009-18-2025 16:14-0400 Body mlbyws066.4 cmElloyd Bowles MD Work Phone: [facility]SmithvilleNvosamrnnk70-48-3407 16:14-0400Body mass index (BMI) [Ratio]37.07 kg/i7UzogsaKhoa Bowles MD Work Phone: [facility]SmithvilleNuybeahxjm47-76-7961 16:14-0400Body .46 kgKhoa Bowles MD Work Phone: [facility]SmithvilleXliaaenprn92-07-2531 16:14-0400Heart rate75 /min Khoa Bowles MD Work Phone: [facility]SmithvilleNwaermjjgj53-91-1729 16:14-2216IjB2% (BldA) [Mass fraction]95 %Khoa Bowles MD Work Phone: [place] [address]Uvxlgwjqur44-92-7858 16:39-0400Diastolic blood mm[Hg]Khoa Bowles MD Work Phone: [phone] [place], [place] 6345809-12-2025 16:39-0400 Heart rate56 /Helga Bowles MD Work Phone: [phone] [place], [place] 6345809-12-2025 16:39-0400 Respiratory rate18 /Helga Bowles MD Work Phone: [phone] [place], [place] 6345809-12-2025 16:39-0400 SaO2% (BldA) [Mass fraction]97 %Khoa Bowles MD Work Phone: [phone] [place], [place] 6345809-12-2025 16:39-0400 Systolic blood rggtyxwd226 mm[Hg]Khoa Bowles MD Work Phone: [phone] [place], [place] 6345809-12-2025 14:38-0400 Body apazfxmatbc52.1 [degF]Khoa Bowles MD Work Phone: [phone] [place], [place] 6345809-12-2025 14:30-0400 Body .42 Tiny Bowles MD Work Phone: [phone] [place], [place] 6345809-12-2025 14:30-0400 Body oicgwb472.8 kgKhoa Bowles MD Work Phone: [phone] [place], [place] 6345809-11-2025 12:54-0400 Body naxpio136.4 cmTiffanie Enrique DPM Work Phone: [phone]villeFvehhbsvcl83-44-5105 12:54-0400Body mass index (BMI) [Ratio]37.07 kg/i4UhjkrtcTiffanie Enrique DPM Work Phone: [phone]SmithvillePeiyvzjvpy68-49-6870 12:54-0400Body .46 kgTiffanie Enrique DPM Work Phone: [phone]SmithvilleFwrdjmavjg83-94-9950 11:04-0400Body bedhbv257.4 Tiny Bowles MD Work Phone: [facility]SmithvilleFtjtonsvbm61-22-5813 11:04-0400Body mass index (BMI) [Ratio]37.07 kg/n3GrxzyaKhoa Bowles MD Work Phone: [phone]SmithvilleByuzrurgfj18-77-7006 11:04-0400Body gvafaq197.46 kgKhoa Bowles MD Work Phone: [phone] [place], [place] [address]Tyqjhwvnee23-67-6792 11:04-0400Diastolic blood mm[Hg]Khoa Bowles MD Work Phone: [phone] [place], [place] [address]Ruwcapycbw29-51-7756 11:04-0400Heart rate71 /min Khoa Bowles MD Work Phone: [phone] [place], [place] [address]Yavejtkrya44-50-3757 11:04-1116HeX5% (BldA) [Mass fraction]96 %Khoa Bowles MD Work Phone: [phone] [place], [place] [address]Qqwvuwwlsx17-60-1840 11:04-0400Systolic blood nlosirnh793 mm[Hg]Khoa Bowles MD Work Phone: [phone] [place], [place] [address]Gldtlvmuld46-21-7428 14:48-0400Body echoze007.4 cmElloyd Bowles MD Work Phone: [phone] [place], [place] [address]Bzgtucazib41-25-9312 14:48-0400Body mass index (BMI) [Ratio]37.07 kg/f3TykstzKhoa Bowles MD Work Phone: [phone] [place], [place] [address]Nxdndrtliu33-43-0398 14:48-0400Body alqgzl199.46 kgKhoa Bowles MD Work Phone: [phone] [place], [place] [address]Zpkfhkbkps02-17-5043 14:48-0400Diastolic blood zkulntyo11 mm[Hg]Khoa Bowles MD Work Phone: [phone] [place], [place] [address]Wzlnxynjka39-54-4814 14:48-0400Heart rate68 /min Khoa Bowles MD Work Phone: [phone]SmithvilleTdsnvbrifh86-70-0178 14:48-6291CvD7% (BldA) [Mass fraction]97 %Khoa Bowles MD Work Phone: [facility]SmithvilleEtyxgsjolz71-56-5972 14:48-0400Systolic blood kxkcypoj833 mm[Hg]Khoa Bowles MD Work Phone: [facility]SmithvilleVmubgvkwvh01-93-6671 13:00-0400Body pyossl582.4 cmTiffanie Enrique DPM Work Phone: [facility]SmithvilleZxorbxscsn15-56-6021 13:00-0400Body mass index (BMI) [Ratio]37.07 kg/m2UphkkisTiffanie Enrique DPM Work Phone: [facility]SmithvilleCclzkrbvgb16-37-0464 13:00-0400Body .46 kgTiffanie Enrique DPM Work Phone: [phone]SmithvilleJcnedxauct10-09-3904 07:40-0400Body yjucqz597.4 cmElloyd Bowles MD Work Phone: [facility]SmithvillePudxszqezd46-19-6538 07:40-0400Body mass index (BMI) [Ratio]37.07 kg/y3FnronsKhoa Bowles MD Work Phone: [facility]SmithvilleTgdqmraiuh99-86-8464 07:40-0400Body qauiyt944.46 kgKhoa Bowles MD Work Phone: [facility]SmithvilleRdbqpuwhyz85-30-4319 13:48-0500Body qtjgux719.4 cmTiffanie Enrique DPM Work Phone: [facility]SmithvilleDuaenqirmz47-35-2373 13:48-0500Body mass index (BMI) [Ratio]37.07 kg/b8WureehfTiffanie DAMONM Work Phone: [phone] [place], [place] [address]Bmfqpireji04-05-2416 13:48-0500Body tajaut006.46 kgTiffanie Enrique DPM Work Phone: [phone] [place], [place] [address]Tezfxxtjce35-07-1777 10:47-0500Blood Pressure LocationPakelley WOOD [facility]02-17-2025 10:47-0500Body jtuegfwtutk67.6 [degF]Madison WOOD [facility]02-17-2025 10:47-0500Diastolic blood mlfedibs93 mm[Hg]Madison WOOD [facility]02-17-2025 10:47-0500Heart rate62 /minPatrick WOOD [facility]02-17-2025 10:47-0500Respiratory rate16 /minPatrick WOOD [facility]02-17-2025 10:47-0500Systolic blood skardeof867 mm[Hg]Madison WOOD [facility]11-14-2024 14:55-0500Body .4 cmTiffanie Enrique DPM Work Phone: [phone] [place] [address]-14-2024 14:55-0500Body mass index (BMI) [Ratio]37.07 kg/l8TldsvvxTiffanie Enrique DPM Work Phone: [phone] [place] [address]-14-2024 14:55-0500Body uthzdr112.46 kgChrisabhishek Enrique DPM Work Phone: [phone]SmithvillePjgnqaoezz34-21-7398 13:06-0500Blood Pressure LocationPatrick WOOD [facility]11-04-2024 13:06-0500Diastolic blood knfdiyfc87 mm[Hg]Madison WOOD [facility]11-04-2024 13:06-0500Heart rate58 /minPatrick WOOD [facility]11-04-2024 13:06-0500Respiratory rate18 /minPatrick NINA [facility]11-04-2024 13:06-0500Systolic blood svmesscw740 mm[Hg]Madison WOOD [facility]10-08-2024 12:34-0400Body nxpaoe078.4 Qiana Hampton PA Work Phone: [facility]SmithvilleJfbavdykhe77-27-3246 12:34-0400Body mass index (BMI) [Ratio]37.07 kg/m2Yaquelin Hampton PA Work Phone: [facility] SystemSlxmgiigne99-19-5535 12:34-0400Body gomnpp139.46 kgYaquelin Hampton PA Work Phone: [facility] SystemLviqbphuuf48-21-5329 12:34-0400Diastolic blood doidijec07 mm[Hg]Yaquelin Hampton PA Work Phone: [phone] SystemBoessxrcbv24-23-9079 12:34-0400Heart rate52 /min Yaquelin Hampton PA Work Phone: [facility] SystemUglfftqecv03-37-4875 12:34-0400Respiratory rate16 /minYaquelin Hampton PA Work Phone: [facility] SystemYkixepcixo73-60-3366 12:34-9713MvN4% (BldA) [Mass fraction]99 %Yaquelin Hampton PA Work Phone: [facility] SystemVppluksmtx16-66-6980 12:34-0400Systolic blood gbgybdrk554 mm[Hg]Yaquelin Hampton PA Work Phone: [facility] SystemTqoglibmke17-64-8625 15:43-0400Body axylhz175.4 Margie Guzmán EGG CANDLER Work Phone: [facility] SystemFfwfzgiopy89-52-1469 15:43-0400Body mass index (BMI) [Ratio]37.34 kg/l6PpztznYumiko Guzmán EGG CANDLER Work Phone: [facility] SystemUjtjrydbvb91-47-6383 15:43-0400Body nuskan615.37 kgYumiko Guzmán EGG CANDLER Work Phone: [facility] SystemEylhmcuxnf76-49-5450 15:43-0400Diastolic blood olvnaicc75 mm[Hg]Yumiko Guzmán EGG CANDLER Work Phone: [facility] SystemVetefkqatp03-81-9002 15:43-0400Heart rate69 /min Yumiko Guzmán EGG CANDLER Work Phone: [facility]SmithvilleZbavzuksbg59-74-5169 15:43-7567FxZ3% (BldA) [Mass fraction]97 %Yumiko Wellsclifford EGG CANDLER Work Phone: [facility]SmithvilleTasrzlyuex46-51-9575 15:43-0400Systolic blood amcoytni357 mm[Hg]Yumiko Wellsclifford EGG CANDLER Work Phone: [facility]SmithvilleVcglyoxdpj18-02-0272 11:01-0500Body .5 cmJeabhishek Enrique DPM Work Phone: [facility]SmithvilleKwydlefxmh47-87-9343 11:01-0500Body mass index (BMI) [Ratio]36.87 kg/v1QmglsmgTiffanie Enrique DPM Work Phone: [facility]SmithvilleCtnnczueuu39-82-6522 11:01-0500Body yasnmx159.81 kgTiffanie Enrique DPM Work Phone: [facility]SmithvilleVgqswbzhou41-56-7590 13:32-0400Blood Pressure LocationPatrick WOOD [facility]09-20-2023 13:32-0400Diastolic blood xwsbworw95 mm[Hg]Madison WOOD [facility]09-20-2023 13:32-0400Heart rate54 /minMadison WOOD [facility]09-20-2023 13:32-0400Systolic blood gklxujku683 mm[Hg]Madison WOOD [facility]03-07-2023 10:47-0500Blood Pressure LocationMadison WOOD [facility]03-07-2023 10:47-0500Diastolic blood atxzxejk12 mm[Hg]Madison WOOD [facility]03-07-2023 10:47-0500Heart rate58 /minMadison WOOD [facility]03-07-2023 10:47-0500Systolic blood eotpyjev902 mm[Hg]Madison WOOD [facility] Encounters Encounter DateEncounter TypeCare ProviderFacilityStart: 07-26-2025 End: 92-57-4091swuxdloooqKNOFYKNEllis Hospital [facility] PPGStart: 07-24-2025 End: 56-83-4472plnvifxqinHdefqfs M Natasha SPANN Work Phone: [facility] Work Phone: Start: 07-24-2025 End: 25-97-9673Nzodpzf encounter procedureNicjan Mohan DO-[facility] Work Phone: Start: 07-19-2025 End: 72-18-0670Xpnurg outpatient visit 25 minutesKhoa Bowles MD Work Phone: [phone] Winters StreetComment on above: Syncope, unspecified syncope type (Primary Dx); Right bundle branch block; Vertigo; Encounter for examination following treatment at hospital; Morbid obesity due to excess calories ([facility]-H[facility]); Lymphedema of both lower extremitiesStart: 07-19-2025 End: 42-69-1590yqabfiamwhNHHNOK J HEMEYERNot AvailableStart: 07-19-2025 End: 53-12-3724Ahydec flowsheetKhoa Bowles MD Work Phone: [phone] Rios Streettart: 07-19-2025 End: 52-49-6413Eqcdgg Yony Bowles MD Work Phone: [facility] MedicineStart: 07-13-2025 End: 97-37-6220Hxzlfbyva department patient Adi Bowles MD Work Phone: [phone]-Fwjmmxhlx Room Work Phone: Start: 07-12-2025 End: 60-85-9657Eziqls flowsRj Enrique DPM Work Phone: [facility] PodiatryStart: 07-12-2025 End: 20-32-4949Gueufh Gaurav Enrique DPM Work Phone: [facility] PodiatryStart: 07-12-2025 End: 70-40-9694Jrwwxfp encounter procedureTiffanie Enrique DPM Work Phone: [facility] PodiatryComment on above:Onychomycosis (Primary Dx); Type II or unspecified type diabetes mellitus with neurological manifestations, not 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) (HCC); Acquired keratodermaStart: 07-12-2025 End: 18-02-1293npzollywmiPKZPKRA W CLARKENotad AvailableStart: 07-06-2025 End: 07-75-0534fqyqalgestPZCCHRV L PERMOProSelect Medical Specialty [facility]innatica [facility] HospitalStart: 06-30-2025 End: 56-89-3539Cbjkmr Allen Bowles MD Work Phone: [facility] MedicineStart: 06-28-2025 End: 42-29-9921sxcwgshfjwTBBSPWU L PERNEHolmes County [facility] Hospital[facility] PPGStart: 06-27-2025 End: 31-26-5209awtntopvfiQPYNDHU F OSMANProMedica Bude HospitalStart: 57-04-7996gmedxbuxujDnblpiw R WATERSFacility:EU BellevueStart: 06-11-2025 End: 84-93-6239Abybzbr encounter procedureMadison WOOD [facility] start: 05-22-2025 End: 64-18-3962kwbxjewnvhVsxefp J Hemeyer MD Work Phone: [facility] Work Phone: Start: 05-22-2025 End: 41-31-7781Pvtmgwwd ReferredMadison Wood MD-LAB [facility] Start: 05-22-2025 End: 00-44-0698nxyjczjolzHmrrklp R WATERSFacility:CD:[id number]: 05-07-2025 End: 21-74-0813Cpeljq flowsRick Bowles MD Work Phone: [facility] 100Start: 05-07-2025 End: 56-65-5944Zbzbhpelsa Bowles MD Work Phone: [facility] 100Start: 05-07-2025 End: 31-66-1283Glfozod encounter procedureKhoa Bowles MD Work Phone: [facility] 100Comment on above:Encounter for Medicare annual wellness exam (Primary Dx); [...] diabetes mellitus with foot ulcer (CODE) (HCC); ThrombocytopeniaStart: 05-07-2025 End: 39-26-0296qekdgtevyoSZCKYB J HEMEYERNot AvailableStart: 04-26-2025 End: 93-97-6559Puxgip outpatient visit 25 minutesEdsilvana Bowles MD Work Phone: [facility] FM 100Comment on above:Primary hypertension ; Mixed hyperlipidemia ; Hyperuricemia; Microalbuminuria; Type 2 diabetes mellitus with diabetic microalbuminuria, with long-term current use of insulin ([facility]); Type 2 diabetes mellitus with diabetic polyneuropathy, with long-term current use of insulin ([facility]); Diabetic neuropathic arthropathy ([facility]); Lymphedema of both lower extremities; Chronic cellulitis; Polypharmacy; Morbid obesity due to excess calories ([facility])Start: 04-26-2025 End: 39-50-8652gshspqmfnaSTXNWP J HEMEYERNot AvailableStart: 04-24-2025 End: 36-18-0660Jbulnfpsu Result Kassandra Bowles MD Work Phone: noms External Department UnsolicitedStart: 04-24-2025 End: 39-91-6300Vsloubbda Result Kassandra Bowles MD Work Phone: noms External Department UnsolicitedStart: 04-23-2025 End: 21-38-1556Ilhtkqn encounter procedureMadison Wood MD-[facility] Work Phone: Start: 04-23-2025 End: 86-39-2133ujifcrvycyAyxsjm J HemeyerFacility:[facility]tart: 04-05-2025 End: 72-13-7825Junhfj Gaurav Enrique DPM Work Phone: noms PODIATRYStart: 04-05-2025 End: 03-73-1808Fvnlwe Gaurav Enrique DPM Work Phone: noms PODIATRYStart: 04-05-2025 End: 09-98-9448Rkeupbq encounter procedureTiffanie DAMONM Work Phone: noms PODIATRYComment on above:Type II or unspecified type diabetes mellitus with neurological manifestations, not 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) ([facility]) (Primary Dx); Onychomycosis; Acquired keratoderma; CallusStart: 04-05-2025 End: 11-77-9569rffjjmhafcEDZBJRSRob Gay AvailableStart: 04-02-2025 End: 47-21-0509fftfogfkewZuchltc R WATERSFacility:EU BellevueStart: 04-02-2025 End: 27-53-7677Dfxigko encounter procedureMadison WOOD [facility] Maria R start: 03-15-2025 End: 74-44-5843Cqrogcybo Result EncounterGeneric External Data ProviderNOMS External Department UnsolicitedStart: 03-15-2025 End: 19-64-6274Bsndcptqk Result EncounterGeneric External Data ProviderNOMS External Department UnsolicitedStart: 02-20-2025 End: 67-01-7319Njwlfd Yony Bowles MD Work Phone: NOMS CI FM 100Start: 02-20-2025 End: 45-33-8533Apzcob Yony Bowles MD Work Phone: NOMS CI FM 100Start: 02-20-2025 End: 24-26-0099Jbcyzg outpatient visit 15 minutesEdsilvana Bowles MD Work Phone: NOMS CI FM 100Comment on above:Fall from standing, subsequent encounter; Skin tear of upper extremity; Bleeding; [facility]-2025 End: 01-45-7646yxbbgfjlboJFCJXN J HEMEYERNot AvailableStart: 12-30-2024 End: 76-72-9145SkxiypVwjrvg J Hemeyer MD Work Phone: NOMS CI FM 100Comment on above:Other retirement (current) drug therapyStart: 12-28-2024 End: 09-89-5347Mbzzxz flowsheetTiffanie Enrique DPM Work Phone: noms PODIATRYStart: 12-28-2024 End: 62-47-0636Fsdixv flowsRj Enrique DPM Work Phone: noms PODIATRYStart: 12-28-2024 End: 74-01-1947Gerqnoc encounter procedureTiffanie Enrique DPM Work Phone: NOMS FH PODIATRYComment on above:Type II or unspecified type diabetes mellitus with neurological manifestations, not 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) ([facility]) (Primary Dx); Onychomycosis; Acquired keratodermaStart: 12-28-2024 End: 45-05-9226jawxbqrnoyJKMJXKV W CLARKENot AvailableStart: 12-18-2024 End: 49-97-0071thlnczlffbAgkmzno R WATERSFacility:EU BellevueStart: 12-18-2024 End: 35-63-3707Fnnofjx encounter procedurePakelley WOOD [facility] start: 12-13-2024 End: 71-04-8024IrhjcnHwjwnh J Hemeyer MD Work Phone: NOMS CI FM 100Comment on above:Type 2 diabetes mellitus with hyperglycemia, without long-term current use of insulin ([facility]) Start: 11-18-2024 End: 64-14-9290Uqazoyoha Result EncounterGeneric External Data ProviderNOMS External Department UnsolicitedStart: 11-18-2024 End: 50-92-3660Ahuwftivc Result EncounterGeneric External Data ProviderNOMS External Department UnsolicitedStart: 11-11-2024 End: 18-58-6243RyvzusIqgjct J Hemeyer MD Work Phone: NOMS CI FM 100Comment on above:Type 2 diabetes mellitus with hyperglycemia, without long-term current use of insulin ([facility]) Start: 10-31-2024 End: 31-72-1663Gnzlpd flowsRick Bowles MD Work Phone: NOMS CI FM 100Start: 10-31-2024 End: 91-96-7185Myihon Yony Bowles MD Work Phone: NOMS CI FM 100Start: 10-31-2024 End: 44-58-9485Yokhcm outpatient visit 25 minutesKhoa Bowles MD Work Phone: NOMS CI FM 100Comment on above:Diabetic neuropathic arthropathy (CMS/HCC) (Primary Dx); Polyneuropathy due to type 2 diabetes mellitus (CMS/HCC); Primary hypertension (CMS/HCC); Peripheral venous insufficiency; Diabetic nephropathy associated with type 2 diabetes mellitus (HCC) (CMS/HCC); Type 2 diabetes mellitus with hyperglycemia, without long-term current use of insulin ([facility]/HCC); Mixed hyperlipidemia (CMS/HCC); Essential hypertension ([facility]/HCC); Lymphedema of both lower extremities; Chronic cellulitisStart: 10-31-2024 End: 38-04-0695byrkhaqklmXKREEC J HEMEYERNot AvailableStart: 10-26-2024 End: 19-70-7662Fqjegmklk Result EncounterEdsilvana Bowles MD Work Phone: noms External Department UnsolicitedStart: 10-26-2024 End: 60-44-2796Vnxkrbfou Result Kassandra Bowles MD Work Phone: noms External Department UnsolicitedStart: 10-16-2024 End: 75-50-5494WmmdxgIttavo J Hemeyer MD Work Phone: NOMS CI FM 100Comment on above:Diabetic nephropathy associated with type 2 diabetes mellitus (HCC) (CMS/HCC)Start: 09-14-2024 End: 54-18-3929Jkcskfx encounter procedureTiffanie Enrique DPM Work Phone: noms PODIATRYComment on above:Type II or unspecified type diabetes mellitus with neurological manifestations, not 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) ([facility]/HCC) (Primary Dx); Onychomycosis; Acquired keratodermaStart: 09-14-2024 End: 08-95-4308wplvtccqbaAQQVMLV W CLARKENot AvailableStart: 09-14-2024 End: 92-13-9274Ebyvtq flowsRj Enrique DPM Work Phone: noms PODIATRYStart: 09-14-2024 End: 99-87-5109Rdytse Gaurav Enrique DPM Work Phone: NOMS PODIATRYStart: 09-04-2024 End: 32-12-9678ueipibmqpvQeeczll R WATERSFacility:EU BellevueStart: 09-04-2024 End: 17-86-4971Fpgijyn encounter procedurePakelley Crespo WOOD [facility] Maria R start: 09-02-2024 End: 90-57-2443Fcltiscyg Result EncounterGeneric External Data ProviderNOMS External Department UnsolicitedStart: 09-02-2024 End: 51-24-5416Hyozhyiro Result EncounterGeneric External Data ProviderNOMS External Department UnsolicitedStart: 08-31-2024 End: 91-84-4272Yywwntveo Result EncounterGeneric External Data ProviderNOMS External Department UnsolicitedStart: 08-31-2024 End: 50-29-3818Mfylxppdm Result EncounterGeneric External Data ProviderNOMS External Department UnsolicitedStart: 08-08-2024 End: 55-22-7592Nyiext Vanessa MULLINS Work Phone: noms NE NEUROStart: 08-08-2024 End: 30-38-7885Rmntke Vanessa MULLINS Work Phone: NOEG NE NEUROStart: 08-08-2024 End: 96-35-1134Ueyyzl outpatient visit 15 minutesYaquelin MULLINS Work Phone: noms NE NEUROComment on above:Polyradiculopathy (Primary Dx); PolyneuropathyStart: 08-08-2024 End: 55-54-8877azvtwaciulKLBQ HILLNot AvailableStart: 07-26-2024 End: 29-63-7064Mruosr outpatient visit 25 minutesYumiko Guzmán NP Work Phone: [facility] ROUTEComment on above:Obstructive sleep apnea syndrome (Primary Dx); Snoring; Obesity (BMI 30-39.9); HypersomniaStart: 07-26-2024 End: 02-08-0447uewxnpmqmeZGQPIM GILLMORNot AvailableStart: 07-26-2024 End: 31-21-2351Cpovvo flowsheetYumiko Wellsclifford EGG CANDLER Work Phone: noms [facility] ROUTEStart: 07-26-2024 End: 97-70-5485Jtuvnn flowsKelin Wellsclifford EGG CANDLER Work Phone: noms [facility] ROUTEStart: 07-26-2024 End: 80-50-2433evyzoehwosRxtcvjp R NINAFacility:EU [place]uskyStart: 07-26-2024 End: 92-21-4507Avjmnmo encounter procedurePakelley WOOD [facility] Start: 07-24-2024 End: 30-56-8060Wqwpepvai Kassandra Bowles MD Work Phone: NOMS [facility] 100Comment on above:Care CoordinationStart: 03-22-2024 End: 62-71-3643Mgsmisrjy Result EncounterGeneric External Data ProviderNOMS External Department UnsolicitedStart: 03-22-2024 End: 10-93-4716Ajcwvxjzz Result EncounterGeneric External Data ProviderNOMS External Department UnsolicitedStart: 12-09-2023 End: 84-41-6312Hhjrnpy encounter procedureJeabhishek Enrique DPM Work Phone: NOMS FH PODIATRYComment on above:Type II or unspecified type diabetes mellitus with neurological manifestations, not 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) ([facility]) (Primary Dx); Onychomycosis; Hallux limitus, left; Acquired keratodermaStart: 08-05-2023 End: 89-39-4655hmzzkmrygmRP Khoa Bowles Work Phone: [facility] Work Phone: Start: 08-05-2023 End: 58-76-8283Wghnelg encounter procedureMD Khoa Bowles Work Phone: [facility]-[address] Work Phone: Start: 07-21-2023 End: 03-10-0482Hujzwat encounter procedurePakelley WOOD [facility] Start: 76-88-6249nhpnqsdxmkWS KHOA BOWLES . Facility:A2Vatkn: 02-04-2023 End: 25-62-9051arjnrlzyocZZ PATRICK WATERS .Facility:M1Mhmjj: 01-14-2023 End: 16-61-4768kgztxddflzEO MADISON WOOD .Facility:L0Qqlai: 01-12-2023 Encounter for other preprocedural examinationDR MADISON WOOD .[facility] 16-16-4162Oawezhtzo for preprocedural cardiovascular examination DR MADISON WOOD .[facility]: 30-74-0059Xjfgwongq for preprocedural laboratory examinationDR MADISON WOOD .[facility] Start: 01-08-2023 End: 52-13-6405jgcbphfrshBX PATRICK WATERS .Facility:A8Oesyt: 01-08-2023 End: 12-23-8228Lzzpfmhbz for preprocedural laboratory examinationDR MADISON WOOD .Facility:T9Mukqg: 01-05-2023 End: 07-44-0588Clljddk encounter procedurePakelley WOOD [facility] Start: 12-31-2022 End: 13-96-4635hmekltijyqKI KHOA HEMESONJA .Facility:P6Qmkqw: 11-02-2022 ambulatoryDR EDSILVANA HEMESONJA .Facility:M3Ckpzz: 09-21-2022 End: 43-89-6330Zhgsbhl encounter procedurePatricvincent WOOD [facility] start: 09-09-2022 End: 13-64-8611wgflazcsvxIW PATRICK WATERS .Facility:L8Sdikf: 08-06-2022 End: 30-33-1710xqfoctphzdUU KHOA BOWLES .Facility:K7Vyosl: 05-05-2022 End: 78-39-6952amxbkydozcAK KHOA BOWLES .Facility:C3Zhwvp: 04-03-2021 End: 98-06-8366Lvlpoax encounter procedureKhoa Bowles Work Phone: -Pre-Surgical TestingStart: 02-11-2021 End: 74-10-5939Bojlcsc encounter procedureEdsilvana Bowles Work Phone: -Lab [facility] CampusStart: 01-10-2021 End: 86-07-7564Bqmtibc encounter procedureEdsilvana Bowles Work Phone: -[address] Procedures DateProcedureProcedure DetailPerforming ClinicianStart: 08-49-5307QK angiography of headEdsilvana Bowles MD Work Phone: Start: 67-44-2013DY angiography of neck vesselsEdsilvana Bowles MD Work Phone: Start: 12-95-6030ID of head without contrastEdsilvana Bowles MD Work Phone: Start: 25-73-8636OBY HEMOGLOBIN O8VUygutfKhoa Bowles MD Work Phone: Start: 97-65-4517MQW MICROALB CREAT RATIO RANDOMKhoa Bowles MD Work Phone: Start: 99-39-9127VW prostate wo/w Yadira Bowles MD Work Phone: Start: 69-99-0215CHED PSA, DIAGNOSTICGeneric External Data ProviderStart: 05-36-5503GF ANKLE LT WO CONGeneric External Data Provider Start: 43-21-2636SMI CMP (CMP) (FOR REMOTE [facility] USE)Khoa Bowles MD Work Phone: Start: 37-15-4420CI ABDOMEN 1VGeneric External Data ProviderStart: 61-10-7410CCXJ PSA, DIAGNOSTICGeneric External Data Provider Start: 49-72-8663AG EXT VENOUS REFLUX ROSE MARY LMTDGeneric External Data Provider Start: 49-35-0493QI pre/post mri xrayMD Khoa Bowles Work Phone: Start: 54-11-8114SB lumbar spine wo conMD Khoa Bowles Work Phone: Start: 73-30-3516Dowrwjcmulyszl shockwave lithotripsy of calculus of kidneyPatrick WOOD Start: 53-06-0372RUZ screeningDR MADISON NINA . Comment on above:Performed By: #### PT, PTT #### [facility] [address] [place] [address] Dr. [place] Jean-Baptisteart: 81-62-1557UWI screeningDR MADISON NINA .Comment on above:Performed By: #### PSAD #### [facility] [address] [place] [address] Dr. [place] Jean-Baptisteart: 58-86-0151OAL of lumbar spine with Nida Bowles Work Phone: Start: 06-46-3360W-ray of lumbar spine, four views Khoa Bowles Work Phone: Start: 22-14-0955ZsabagdkyueFxieoov Clarke DPM Work Phone: Start: 85-56-2405UmaswoqwkpJzaiyqb [employer] Start: 75-97-2048Kwhsctd of calculus of renal pelvis through percutaneous nephrostomyPatrick WOOD Start: 98-15-4852Szqsvrs of calculus of renal pelvis through percutaneous nephrostomyPatrick WOOD Start: 97-59-6144Qcibvzjbgar extraction of ureteric calculus without disintegrationPatrick WOOD Start: 82-53-9908Mphjbpotfhq extraction of ureteric calculus without disintegrationPatrick WOOD Start: 36-30-0587Uqbwdllecer insertion of ureteric stentMadison WOOD Start: 49-53-8168Dhyucbefzht removal of ureteric stent Madison WOOD Start: 90-38-0158Ksjdnolatbb extraction of ureteric calculus without disintegrationMadison WOOD ankle region structure (body structure)Madison WOOD Back structure, excluding neck (body structure)Madison WOOD Capsulotomy of lensMadison WOOD Cataract (disorder)Madison WOOD Cellulitis (disorder)Madison WOOD ColonoscopyMadison WOOD History of - varicose veins (context-dependent category)Madison WOOD History of hernia repairVakelley WOOD Rotator cuff including muscles and tendons (body structure)Madison WOOD Plan of Treatment DateCare ActivityDetailAuthorStart: 61-74-6577Tapyvecd screeningDiabetes: Retinopathy ScreeningNONJ HealthcareStart: 82-69-8676Tylxthjcg for malignant neoplasm of colonNONJ HealthcareStart: 07-07-2026Medicare Annual Wellness (AWV) Medicare Annual Wellness (AWV)[facility] HealthcareStart: 06-95-8644Zhqhtyagc vaccinationInfluenza Vaccine (#1)[facility] HealthcareComment on above:Postponed from 07/02/2025 (Patient Refused)Start: 55-16-6986Caxpa screening for protein Diabetes: Urine Protein ScreeningNONJ HealthcareStart: 50-38-7571Amqaosyv screeningDiabetes: Retinopathy ScreeningNONJ HealthcareStart: 10-24-2025 Hemoglobin A1c measurementDiabetes: Hemoglobin Z1ZWMJZ HealthcareStart: 10-22-2025 End: 34-73-9232Uemvpzp encounter procedureNOMS [facility] 100Start: 10-11-2025 End: 51-87-3341Cifrqej encounter odbyjujcv78/11/2025 10:45 AM EST Procedure Visit [facility] [address] [place] [phone] Tiffanie Enrique, DPM [address] [place] [address] DIMASPatrick Millert PodiatryStart: 09-26-2025 End: 79-61-6286Ogosgkzgqftvl metabolic 2000 panel - Serum or PlasmaComprehensive metabolic panel Lab Routine Primary hypertension Type 2 diabetes mellitus with diabetic microalbuminuria, with long-term current use of insulin (HCC) Type 2 diabetes mellitus with diabetic polyneuropathy, with long-term current use of insulin (HCC) Diabetic neuropathic arthropathy (HCC) Expected: 09/26/2025 (Approximate), Expires: 04/26/2026[facility] Work Phone: Comment on above:Expected: 09/26/2025 (Approximate), Expires: 04/26/2026Start: 09-26-2025 End: 80-82-2166Hoemqjxvkd A1c/Hemoglobin.total in BloodHemoglobin A1c Lab Routine Type 2 diabetes mellitus with diabetic microalbuminuria, with long-term current use of insulin (HCC) Type 2 diabetes mellitus with diabetic polyneuropathy, with long-term current use of insulin (HCC) Diabetic neuropathic arthropathy (HCC) Expected: 09/26/2025 (Approximate), Expires: 04/26/2026NONJ HealthcareComment on above:Expected: 09/26/2025 (Approximate), Expires: 04/26/2026Start: 09-26-2025 End: 76-12-9979Qkdxq 1996 panel - Serum or PlasmaLipid panel Lab Routine Primary hypertension Mixed hyperlipidemia Expected: 09/26/2025 (Approximate), Expires: 04/26/2026[facility] HealthcareComment on above:Expected: 09/26/2025 (Approximate), Expires: 04/26/2026Start: 09-26-2025 End: 86-92-5655Vmufo [Mass/volume] in Serum or PlasmaUric acid Lab Routine Hyperuricemia Expected: 09/26/2025 (Approximate), Expires: 04/26/2026NONJ HealthcareComment on above:Expected: 09/26/2025 (Approximate), Expires: 04/26/2026Start: 07-24-2025 End: 05-28-8528Vhoxjfc encounter procedureNOMS [facility] [place] ROUTEStart: 07-19-2025 End: 82-25-6254Yksegax encounter ysmhoiypr43/18/2025 4:30 PM EDT Office Visit [facility] [address] [address] Family Medicine [address] [address] Khoa Bowles MD [address] [address] Encounter for examination following treatment at hospital; Vertigo; Morbid obesity due to excess calories ([facility]) [address]Comment on above:Encounter for examination following treatment at hospital; Vertigo; Morbid obesity due to excess calories ([facility])Start: 07-19-2025 End: 16-84-8756Tvoyoj monitor studyHolter monitor Imaging Routine Syncope, unspecified syncope type Right bundle branch block Expected: 07/19/2025 (Approximate), Expires: 07/19/2026[facility] Work Phone: Comment on above:Expected: 07/19/2025 (Approximate), Expires: 07/19/2026Start: 07-12-2025 End: 38-81-5786Guuthfp encounter procedureNOMS PODIATRYComment on above: ArrivedStart: 70-04-3186Onfulzmae vaccinationInfluenza Vaccine (#1)[facility] HealthcareStart: 53-34-4871VpwpawezuTrumbull Memorial Hospitaltart: 05-07-2025 End: 96-17-9632Cpagrwg encounter procedureNOMS [facility] 100Comment on above: Encounter for Medicare annual wellness exam; Advance directive in chart; Encounter for screening for other disorder; Screening for alcohol problemStart: 04-26-2025 End: 08-70-3663Sfnzpae encounter ascgkkoka85/26/2025 3:00 PM EDT Office Visit [facility] [address] [place] [address] [place] [address] Khoa Bowles MD [address] [place] [address] (Fax)[facility] CI FM 100Start: 63-92-6911Xqvwyrhoix A1c measurementDiabetes: Hemoglobin W3PFAXI HealthcareStart: 04-24-2025 End: 83-58-3862Zbpgmaq encounter procedureNOMS BNS FMStart: 04-05-2025 End: 04-88-9906Pfndkzk encounter procedureNOMS FH PODIATRYComment on above: ArrivedStart: 06-03-2025Medicare Annual Wellness (AWV)Medicare Annual Wellness (AWV)NOM[facility] HealthcareStart: 02-20-2025 End: 15-40-9463Saitrbe encounter tjmolspvo52/22/2025 8:00 AM EDT Office Visit [facility] [address] [facility] [address] [place] [address] Khoa Bowles MD [address] [place] [address] (Fax) Encounter for examination following treatment at [facility] CI FM 100Comment on above:[facility]: 01-22-2025 End: 47-56-5917Ftlbbfj encounter procedureNOMS NE NEUROStart: 12-28-2024 End: 52-40-5892Qvfcmau encounter procedureNOMS FH PODIATRYComment on above: ArrivedStart: 10-31-2024 End: 57-20-1491Pcfabur encounter procedureNOMS CI FM 100Comment on above:Arrived Start: 09-14-2024 End: 96-68-3528Nchcgmj encounter vigongwpq68/14/2024 3:00 PM EST Procedure Visit [facility] [address] [facility] [place] [phone] Tiffanie Enrique, DPM [address] [place], [place] [address] NOMS FH PODIATRYStart: 08-08-2024 End: 97-89-1807Nfyyiho encounter procedureNOMS NE NEUROComment on above:Arrived Start: 07-26-2024 End: 02-37-5015Vjquiad encounter procedureNOMS [place] STATE ROUTEComment on above:ArrivedStart: 40-02-0824Mmixgayof vaccinationInfluenza Vaccine (#1)NOMS HealthcareStart: 15-03-0307Bxuefrkk screeningDiabetes: Retinopathy ScreeningNONJ HealthcareStart: 03-09-2024 End: 56-49-5303Vxguuzc encounter fyunzvqxh21/09/2024 1:00 PM EDT [facility] [address] [place] [phone] Tiffanie Enrique, DPM [address] [place] [address] [facility] PODIATRYStart: 04-24-2024Medicare Annual Wellness (AWV)Medicare Annual Wellness (AWV)NOM HealthcareStart: 02-03-2024 End: 95-58-1395Zmmvktc encounter roindrpye85/04/2024 11:30 AM EDT [facility] [address] [place] [address] Khoa Bowles MD [address] [place] [address] [facility] FMStart: 81-58-6861Ffqbkllowg A1c measurement Diabetes: Hemoglobin G9DCBSJ HealthcareStart: 22-88-9969Fvcdk screening for proteinDiabetes: Urine Protein ScreeningNONJ HealthcareStart: 33-66-1452Azxso screening for proteinDiabetes: Urine Protein ScreeningNONJ HealthcareStart: 83-32-5184Ujnofvhvy for malignant neoplasm of colonNOMS HealthcarePatient EducationVertigo - ED discharge instructionsSub[facility] Work Phone: Patient referralSuburban [facility] & [facility] Work Phone: Immunizations Immunization DateImmunizationNotesCare WaqmjjbtHmhhliuj06-62-5530zficgec toxoid, reduced diphtheria toxoid, and acellular pertussis vaccine, adsorbedKhoa Bowles MD Work Phone: [facility]SmithvilleCatpjiugnv79-44-6038zyzjktfrv, high dose seasonal, preservative-freeKhoa Bowles MD Work Phone: [facility]SmithvilleRxckeiaksq06-48-3313otsumwkvp virus vaccine, unspecified formulationKhoa Bowles MD Work Phone: [facility]12-14-2023Influenza, Seasonal, Quadrivalent, AdjuvantedTiffanie Enrique DPM Work Phone: [facility]–SmithvilleHryvxmakhg58-85-6023xuvdofpwg virus vaccine, unspecified formulationKhoa Bowles MD Work Phone: [facility]11-09-2022SARS-CoV-2 (COVID-19) mRNAMUL.ORD![id number] WOOD [facility] [place] 432511-03-2022influenza virus vaccine, unspecified formulationSusannaFanXchangevincent WOOD [facility] [place] 432511-03-2022Influenza, High-dose Seasonal, Quadrivalent, Preservative Free Tiffanie Enrique DPM Work Phone: [facility]SmithvilleGxezcbrklg44-29-7885PUKU-KfO-5 (COVID-19) mRNA- 1273 vaccinePaFanXchangevincent [employer] [facility] [place] 432511-25-2021Moderna SARS-CoV-2 Booster VaccinationTiffanie Enrique DPM Work Phone: [facility]SmithvilleOqighxxsri50-78-5469rqripljnd virus vaccine, unspecified formulationSusannaKaizena [facility] Hospitaly10-22-2021Influenza, Seasonal, Quadrivalent, AdjuvantedJessica Enrique DPM Work Phone: [facility]SmithvilleMmqypbthvl94-66-3405zivpocusu virus vaccine, unspecified formulationPatrick WOOD [facility]03-27-2021COVID-19 mRNA-1273 (Moderna)Khoa Bowles Work Phone: [facility]03-27-2021SARS-CoV-2 (COVID-19) Ad26 vaccine, recombinantPaKaizena [facility]03-02-2021pneumococcal conjugate vaccine, 13 valKyle Bowles MD Work Phone: [facility]SmithvilleUxuuschcnk39-32-3090OLLOY-08 mRNA-1273 (Moderna) Khoa Bowles Work Phone: [facility] Centeromment on above:Result Comment: 2023-01-05: HVM6442-32-4167ufgnhozyy virus vaccine, unspecified formulationPatrick WOOD [facility] Hospitaly10-06-2020Influenza, Seasonal, Quadrivalent, AdjuvantedJessica Haja DPM Work Phone: [facility]SmithvilleGonxfbbhje97-71-3632anwpiqiao virus vaccine, unspecified formulationPatrick WOOD [facility] Hospitaly11-04-2019influenza, high dose seasonal, preservative-freeJessica Enrique DPM Work Phone: [facility]–SmithvilleIhrkcvfrgh55-64-2127ptdrfxiyg virus vaccine, unspecified formulationPatrick WOOD [facility] Hospitaly10-19-2018influenza, high dose seasonal, preservative-freeJessica Enrique DPM Work Phone: [facility]SmithvilleIrpywmnjsj06-52-2481dydgqqeyt virus vaccine, unspecified formulationPatrick WOOD [facility] [place] 432511-06-2017influenza, high dose seasonal, preservative-freeJessica Enrique DPM Work Phone: [facility]SmithvilleGvbcvjotci42-88-3059qyxenmynngeq polysaccharide vaccine, 23 valentPatrick WOOD [facility]18-2017influenza virus vaccine, unspecified formulationPatrick WOOD [facility]10-17-2016influenza virus vaccine, unspecified formulationVaFanXchangek RTB-Media [facility]10-17-2016influenza, high dose seasonal, preservative-freeChrisssica Enrique DPM Work Phone: [facility]villeBnygyyygdr81-54-8881cbwkeewzvoby conjugate vaccine, 13 valentPatrick WOOD [facility]10-22-2015zoster vaccine, livePatrick WOOD [facility] [place] 432510-17-2015influenza, seasonal, injectable, preservative freeChrisssica Enrique DPM Work Phone: [facility]villeLeqclhwfwk07-64-8377oyvvckanv virus vaccine, unspecified formulationPatrick WOOD [facility]04-23-2012pneumococcal polysaccharide vaccine, 23 valentJessica Enrique DPM Work Phone: [facility]villeKarzknougq05-69-9195vhrzjpfbyoqo polysaccharide vaccine, 23 valSonali WOOD [facility] Payers DatePayer CategoryPayerPolicy [id number] 2016Medicare [id number] Health Insurance [id number] [id number] Health [id number]-zed [id number] 2.0.1.865446.3.579.[id number] 2.0.1.483634.3.579.2.16774-44-6248Akdydxo0326836 2.840.1.392630.3.579.2.50976-91-9562Djfcpxa3906091 2.16840.1.799857.3.579.2.35828-61-7921Kfvotke8962925 2.16840.1.047595.3.579.2.14374-18-0391Wxdrurm2034473 2.16840.1.452780.3.579.2.98128-58-3521Jfprhgf2630296 2.16840.1.653771.3.579.2.47605-14-1561Ajzouph1876032 2.16840.1.031217.3.579.2.44755-01-3591Rotfude6470954 2.16.840.1.105962.3.579.2.07961-10-2549Ltqlxpn0618116 2.16.840.1.429806.3.579.2.7[id number] 2.16.840.1.582786.3.579.2.76915-25-4043Tswuhlh80707295 2.16.840.1.429020.3.579.2.63776-38-8669Otzackz78963341 2.16840.1.851397.3.579.2.02596-02-7526Eaqeurl01556355 2.16840.1.680511.3.579.2.38347-44-9240Qztxmxw52328684 2.840.1.404000.3.579.2.41364-08-5419Iydtsen84997725 2.16840.1.677163.3.579.2.61349-14-5275Igwpzva050628140 2.16840.1.874641.3.579.2.226334-20-3545Mcctnib198753253 2.840.1.670917.3.579.2.181912-51-9783Txmcvrb138295452 2.16840.1.681369.3.579.2.307523-69-7044Iseesht46457618 2.16840.1.751879.3.579.2.338244-36-7593Kzpsvde55190044 2.16840.1.722191.3.579.2.293184-29-8088Ybfnuzz99330888 2.16840.1.564083.3.579.2.915865-85-5880Jduehyy59699807 2.16.840.1.435946.3.579.2.228143-06-4813Uaslbuq20195882 2.0.1.981144.3.579.2.982517-25-6810Fjokmsl5368912 2.0.1.662949.3.579.2.622967-76-2587Dpkixza3129907 2..1.369560.3.579.2.751870-58-9985Tvdshfw3923036 2..1.872651.3.579.2.169336-13-0642Wdfpkip6231432 2.0.1.713386.3.579.2.334332-10-1499Dpiydfr7268087 2..1.850422.3.579.2.586121-60-0299Krctueh6357779 2..1.668988.3.579.2.669034-03-0058Waeeran649088679 2..1.411063.3.579.2.579756-92-2192Jwojdqj908996277 2.0.1.399082.3.579.2.4647GcbphdoTWD856Q92612 q3833h70-y06l-2pz5-wp12-ln45411s5bu7Lbawrbh24372758 2.0.1.996342.3.579.2.750Diivlkb95762280 2.0.1.320546.3.579.2.531 Iwhyhbt06678445 2.0.1.258633.3.579.2.531 Social History DateTypeDetailFacilityStart: 04-03-2021 End: 04-63-2664Kkdphqh smoking status NHISNever smoked tobacco (finding)[facility] Hospitaltart: 03-62-7301Huv Assigned At [facility] CenterStart: 81-55-4221Odqcxoh smoking statusNeverCleveland Clinic Mercy Hospital CenterStart: 12-09-2023 End: 33-33-2608Vup Assigned At [facility] CenterStart: 12-09-2023 End: 32-43-2097Kndcrrr intakeLifetime non-drinker (finding)[facility] HealthcareStart: 12-09-2023 End: 64-50-7748Hremorm of Social functionNONJ HealthcareStart: 22-90-1103Eeapviz CommentCaffeine intake: noneNONJ HealthcareStart: 35-19-4827Fqo Assigned At [facility] CenterNot on fileLAYTON HOSPITAL HealthcareSexual OrientationExec[facility] of [facility] start: 56-26-7449DniKjlv (finding)[facility] CenterHow often do you need to have someone help you when you read instructions, pamphlets, or other written material from your doctor or pharmacy [SILS]NeverNOMS HealthcareDo you belong to any clubs or organizations such as episcopalian groups, unions, fraternal or athletic groups, or school groups?NoNOMS HealthcareAre you now , , , , never or living with a partner?MarriedNOMS HealthcareDo you feel stress - tense, restless, nervous, or anxious, or unable to sleep at night because yourmind is troubled all the time - these days [OSQ]Not at allNOMS Healthcare(I/We) worried whether (my/our) food would run out before (I/we) got money to buy more.Never trueNOMS Healthcare Medical Equipment Procedure CodeEquipment CodeEquipment Original TextEquipment IdentifierDates Discectomy, lumbarCOFLEX SIZE 10FDAStart: 35-14-2667Ygaxxxbozt, lumbarCOFLEX SIZE 14FDAStart: 44-81-0608Iqyzsxzghc, lumbarCOFLEX SIZE 14FDAStart: 11-23-2018 Discectomy, lumbarCOFLEX SIZE 10FDAStart: 93-50-6661Bxojunrtpz, lumbarCOFLEX SIZE 14FDAStart: 08-74-9856Yxxzozouba, lumbarCOFLEX SIZE 10FDAStart: 11-23-2018 Discectomy, lumbarCOFLEX SIZE 14FDAStart: 68-18-7371Hlxodwhvjn, lumbarCOFLEX SIZE 10FDAStart: 98-43-8194Nwswzcutzf, lumbarCOFLEX SIZE 14FDAStart: 11-23-2018 Discectomy, lumbarCOFLEX SIZE 10FDAStart: 89-80-631697431698Potgb: 08-02-2023 End: Units in the morning. Take before meals. Accucheck soft clix. [id number]: 11-10-2023 End: 70-80-3861Ihcdzzmjj dxofchqojkry08942936Ihrgs: 63-37-8230Kii for Injection subcutaneous twice rkmhe31356678Onnkm: 83-58-3540Ftwsqaoum eebkxdoozcja99776387 Start: 06-01-2024 End: strip by In Vitro route in the morning and 1 strip in the evening. Take before meals.[id number]: 05-07-2025 End: Lancet in the morning and 1 Lancet in the evening. Take before meals.73150285Dllhh: 05-07-2025 End: 08-15-2025 Functional Status IenpXgohazaikbDzdyikCguszeol70-49-4582Rclpu score [AUDIT-C]0 06/18/2025 9:11 AM Larissa Morris [facility] HospitalTchbihdaeg21-55-9602Iyurlnc Health Questionnaire 2 item (PHQ-2) [Reported][facility]SmithvilleYbkesbxmmt67-88-7501Sjfptnl Health Questionnaire 2 item (PHQ-2) [Reported][facility]SmithvilleDflmohovsg20-87-3610Zxybgnazrn StatusN/AExec[facility] of [facility]11-04-2024Functional StatusN/A [facility]06-03-2024Patient Health Questionnaire 2 item (PHQ-2) [Reported][facility]SmithvilleRankicmkqm65-04-5539 Functional StatusN/AExec[facility] of [facility] 87-74-5544Gxkhesfdyf StatusN/AExec[facility] Clinical Notes 09-21-2022 to 07-19-2025 Note Date & RkonCfghYzmmlmfv42-03-2009 History of Present illness Narrative* Khoa Bowles MD - 07/19/2025 4:30 PM EDT Images from the original note were not included. Patient ID: Manuel Balderas is a 75 y.o. male who presents for: Flowsheet Row Patient Outreach from 07/16/[address] [facility] with Larissa Leavitt RN Hospital Information ED, Hospital or Mcfp Facility Discharge? ED Patient has been contacted within 2 days of being seen in the ED Yes Diagnosis Vertigo Discharge Date 07/13/25 Discharged To: Home Setting Discharge Hospital [facility] Engagement Call Start Time 1705 Admission Date [...] mg by mouth in the morning. biotin 29912 MCG tablet Take 1 tablet by mouth [...] 1 pen needle 32G x 6 mm [facility] Use for Injection subcutaneous twice daily 200 [...] transition of care note is reviewed. a twro-yz-hkfn evaluation is done today. Medical decision making [...] substitutions may have occurred. documented in this encounterSaint Luke's [facility] Hospital–SmithvilleVzlkqnvoyz74-33-6178 Radiology [facility] [place] [address] CT Scan Report Signed Patient: Manuel Balderas MR#: [id number] : 1950 Acct:[id number] Age/Sex: 75 / M ADM Date: 5 Loc: ER Room: Type: PRE ER Attending Dr: Copies to: Madison Drew DO~ Ordering Provider: Madison Drew DO Date of Service: 07/13/25 CT/CT angio neck: vertigo ([id number]) CT/CT angio head: vertigo CT angiogram head and neck INDICATION: Near syncopal episode, dizziness COMPARISON: CT head 07/13/2025 TECHNIQUE: Contiguous axial CT angiogram images obtained through the head and neck with coronal andsagittal reformats. Evaluation degree of ICA narrowing was [...] are patent with mild plaque. origin right WATCH CRYSTAL MOLDER. origin left WATCH CRYSTAL MOLDER with small contribution from the basilar artery. Otherwise the intradural vertebral arteries and basilar artery appear patent. Posterior arteries are patent. Picas are patent. There is slight tortuosity and slight prominence of the left intradural vertebral artery incidentallynotedAnterior cerebral arteries are patent. Anterior communicating artery is patent. Middle cerebral arteries are patent.. Major dural venous sinuses appear grossly preserved. No saccular aneurysm identified CT/CT angio head IMPRESSION: Negative for large vessel occlusion or hemodynamically significant stenosis. Impression dictated by: Marty Sandoval M.D. 07/13/2025 4:10 PM Dictation Location: [place] [address] Transcribed By: [facility] 07/13/25 1610 Dictated By: Marty Sandoval MD 07/13/25 1602 Signed By: 07/13/25 1610 [facility] Work Phone: 1(563) 552-418209-12-2025 Radiology Diagnostic study [facility] [place] [address] [place] [address] CT Scan Report Signed Patient: Manuel Balderas MR#: [id number] : 1950 Acct:[id number] Age/Sex: 75 / M ADM Date: 5 [...] following dose reduction techniques: Automated exposure control, adjustmentof the mA and/or kV accordingto patient size, [...] Sandoval M.D. 07/13/2025 3:51 PM Dictation Location: [place] [address] Transcribed By: [facility] 07/13/25 1551 Dictated By: Marty Sandoval MD 07/13/25 1548 Signed By: 07/13/25 1551 [facility] Work Phone: 1(302) 989-703909-11-2025 History of Present illness Narrative* Tiffanie Enrique DPM - 07/12/2025 1:00 PM EDT Images from the original note were not included. Subjective Patient ID: Manuel Balderas is a 75 y.o. male who presents for Nail care (Manuel Balderas is a 75 y.o. male who presents for Nail care. Patient relates he started Pain management with [facility] for left ankle. PCP: Dr. Jelena HERNANDEZ [...] in the morning., Disp: , Rfl: biotin 16461 MCG tablet, Take 1 tablet by mouth [...] of 1 of the Coflex devices., [facility] PROSTATE SURGERY 05/22/2025 Prostate Transrectal MRI Fusion Bx, Dr Wood ROTATOR CUFF REPAIR Left 2000 anterior stabilization [...] Mood normal. Behavior: Behavior normal. MODIFIER: Q9, [address], [address]37 Assessment/Plan ICD-10-CM 1. Onychomycosis B35.1 2. Type II or unspecified type diabetes mellitus with neurological manifestations, not 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) ([facility]) E11.49 3. Acquired keratoderma L85.1 Conservative and [...] DPM Review of Systems documented in this [facility]08-30-2025 History of Present illness Narrative* Khoa Bowles MD - 06/30/2025 11:40 AM EDT Reviewed both the pain management note urology note. Problem list upgraded. documented in this [facility]08-11-2025 Hospital Discharge instructions Patient Education 06/11/2025 14:58:36 [...] such as a bone scan, CT scan, PETscan, or MRI. Stages of prostate cancer The [...] under a microscope. This is called the [place] score and the total score can range from 6 10, indicating how likely it is that the cancer will spread (metastasize) to other parts of the body. The higher the score, the greater thelikelihood that the cancer will spread. [place] 6 or lower: This indicates that the cancer cells look similar to normal prostate cells (well differentiated). [place] 7: This indicates that the cancer cells look somewhat similar to normal prostate cells (moderately differentiated). [place] 8, 9, or 10: This indicates that [...] you need help quitting, ask your health careprovider. Eat a healthy diet. To do this: [...] prostate cancer. Meeting with a support group mayhelp you learn to manage the stress of having cancer. General instructions Take trlk-gtz-ikfmmlm and prescription medicines only as told by your health care provider. If you have to go to the hospital, notify your cancer specialist (oncologist). Keep all follow-up visits. This is important. Where to find more information [employer] [place] [employer]: www.cancer.org [employer] [place] Society of Clinical Oncology: www.cancer.net National Cancer [place]: www.cancer.gov Contact a health care provider if: [...] prostate cancer. Meeting with a support group mayhelp you learn to manage the stress of having cancer. This information is not intended to replace advice given to you by your health care provider. Make sure you discuss any questions you have with your health care provider. Document Revised: 01/14/2022 Document Reviewed: 01/14/2022 [employer] Patient Education 2023 [employer]. 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 Hearing Screening: Not done Cognitive Screening Self Assessment: No concerns rasied by family members, friends, or caretakers Three Word Registration: Banana, [place], Chair Clock Drawing: Normal Clock - 2 Three Word Recall: 2/3 words correct - 2 Total Score (0-5 Points): 4 Pain Assessment Pain Score: 2 HISTORIES: PAST MEDICAL HISTORY: Past Medical History: Diagnosis Date Acute deep vein thrombosis (DVT) of tibial vein of left lower extremity ([facility]) Acute infective polyneuritis ([facility]) Back pain severe polyneuropathy and polyradiculopathy- [...] left foot limited to breakdown of skin ([facility]) Deep vein thrombosis (DVT) of left lower extremity ([facility]) 07/28/2023 Degenerative disc disease, lumbar Diabetes (HCC) Diabetes mellitus ([facility]) without mention of complication, type II or unspecified type, uncontrolled Disorder of lipoid metabolism unspecified Diverticulosis of colon without hemorrhage Essential hypertension unspecified Facet arthritis of lumbar region Fibromyalgia Hyperlipidemia Hypertension Iron deficiency anemia refractory to iron therapy Kidney calculi Kidney stones Malaise and fatigue Microalbuminuric diabetic nephropathy (HCC) Morbid obesity ([facility]) Neuropathy Polyneuropathy with improvement with gabapentin. [...] of 1 of the Coflex devices., [facility] ROTATOR CUFF REPAIR Left 1999 anterior stabilization [...] mg, Daily aspirin 81 mg, Daily biotin 35862 MCG tablet 1 tablet, 2 times daily [...] 9. Morbid obesity due to excess calories ([facility]) Chronic problem, stable, monitor longitudinally. 10. Type 2 diabetes mellitus with foot ulcer (CODE) (HCC) Chronic problem, stable, monitor longitudinally. 11. Thrombocytopenia Chronic problem, stable, monitor longitudinally. documented in this encounterSaint Luke's [facility] Hospital–SmithvilleRqiqixfmys57-25-4711 History of Present illness Narrative* Khoa Bowles MD - 04/26/2025 3:00 PM EDT Images from the original note were not included. Patient ID: Manuel Balderas is a 75 y.o. male who presents for: Patient is here with his today. Hypertension Patient is here for follow-up of elevated blood pressure. He is not exercising and is adherent to alow-salt diet. Blood pressure is well controlled at [...] symptoms include: dry mouth in the AM. Symptomshave stabilized. Patient denies increased appetite, polydipsia, and [...] mg by mouth in the morning. biotin 85198 MCG tablet Take 1 tablet by mouth [...] 1 pen needle 32G x 6 mm [facility] Use for Injection subcutaneous twice daily 200 [...] mg) by mouth in the morning and 1tablet (50 mg) before bedtime. Dispense: 180 tablet; [...] the level of urine albumin. Normally, the kidneysfilter albumin, so if the kidney leaks small amounts of albumin into the urine then it is a indicator of chronic kidney disease. Microalbuminuria is an independent indicator of increased cardiovascular risk among individuals andtherefore can be used for risk stratification for [...] and 1 tablet in PM Dispense: 270 tablet;Refill: 1 9. Chronic cellulitis Chronic problem, stable, monitor longitudinally. - doxycycline (Monodox) 100 MG capsule; Take 1 capsule (100 mg) by mouth Daily Dispense: 90 capsule; Refill: 3 10. Polypharmacy Chronic problem The patient meets the criteria for polypharmacy; 5 or more prescriptions or multi-morbidity definedas 5 or more diagnoses. Polypharmacy can significantly increase the risk of adverse drug events and negatively impact adherence. Consideration of factors such as clinician agreement, patient perspective, and de-prescribing,as appropriate can improve patient outcomes while simplifying care. This requires longitudinal monitoring as there is at least a moderate risk of morbidity and requires at least a moderate degree of evaluation and management. 11. Morbid obesity due to excess calories ([facility]) Chronic problem, stable, monitor longitudinally. documented in this encounterSaint Luke's North Hospital–SmithvilleTxodkocbzu85-06-3742 History of Present illness Narrative* Tiffanie Enrique DPM - 04/05/2025 1:00 PM EDT Images from the original note were not included. Subjective Patient ID: Manuel Balderas is a 75 y.o. male who presents for Nail care ( Manuel Balderas is a 75 y.o. male who presents for Nail care. Patient relates he started Pain management with [facility] for left ankle. PCP: Dr. Jelena HERNANDEZ 10/31/2025 A1C: 6.6, BS: 143, SS: 12). Patient presents complaining of elongated, thick fungal nails. He is requesting nail debridement today. He was also requesting debridement of the callus of the left hallux of the left weight-bearing surface of the heel. He states he has seeing a doctor in [place] for his left ankle pain and arthritis. [...] in the morning., Disp: , Rfl: biotin 26961 MCG tablet, Take 1 tablet by mouth [...] days BLEPHAROPLASTY Bilateral 01/2021 Dr Qiu, Christopher BONE MARROW BIOPSY CATARACT EXTRACTION Bilateral 06/2021 [...] of 1 of the Coflex devices., [facility] ROTATOR CUFF REPAIR Left 1999 anterior stabilization [...] Mood normal. Behavior: Behavior normal. MODIFIER: Q9, 92723, 10243 Assessment/Plan ICD-10-CM 1. Type II or unspecified type diabetes mellitus with neurological manifestations, not 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) ([facility]) E11.49 2. Onychomycosis B35.1 3. Acquired [...] DPM Review of Systems documented in this encounterSaint Luke's North Hospital–SmithvilleCyloznhskk39-52-9391 Hospital Discharge instructions Patient Education 04/02/2025 13:11:27 [...] including vitamins, herbs, eye drops, creams, and uumi-rlf-ksiszhs medicines. Any surgeries you have had. Any [...] taken. Your health care provider will tell youwhen you can move. You may have to [...] may be told to drink plenty of fluidsto help flush the dye out of your [...] radio waves work together to form very detailedand clear images. In some cases, dye (contrast [...] provider. Document Revised: 07/01/2022 Document Reviewed: 02/19/2021 [employer] Patient Education 2023 [employer]. 04/02/2025 13:09:37 Prostate Cancer Screening Prostate Cancer Screening Prostate cancer screening is testing that is done to check for the presence of prostate cancer in men. The prostate gland is a walnut-sized gland that is located below the bladder and in front of therectum in males. The function of the prostate is to add fluid to semen during ejaculation. Prostatecancer is one of the most common types of cancer in men. Who should have prostate cancer screening? Screening recommendations vary based on age and other risk factors, as well as between the professional organizations who make the recommendations. In general, screening is recommended if: You are age 50 to 70 and have an average risk for prostate cancer. You should talk with your healthcare provider about your need for screening and [...] diagnosed with prostate cancer. The risk is higherif your family member's cancer occurred at an early age or if you have multiple family members withprostate cancer at an early age. ?Being a [...] is a blood test called the prostate-specific antigen(PSA) test. PSA is a protein that is [...] treatment? Where to find more information The [employer] [place] [employer]: www.cancer.org [employer] Association: www.auanet.org Contact a health care [...] the recommended screening test for prostate cancer, butit has associated risks. Discuss the risks and [...] provider. Document Revised: 04/13/2022 Document Reviewed: 04/13/2022 [employer] Patient Education 2023 [employer]. Follow Up Care 12/18/2024 11:38:54 With:NINA LEVY, Madison Crespo, URL Address: [facility] [address] , [place] [phone]- [phone] When: Unknown [facility] 06-02-2025 NotePatient Education Oncology Prostate Cancer Screening Prostate cancer screening is testing that is done to check for the presence of prostate cancer in men. The prostate gland is a walnut-sized gland that is located below the bladder and in front of therectum in males. The function of the prostate is to add fluid to semen during ejaculation. Prostatecancer is one of the most common types [...] is a blood test called the prostate-specific antigen(PSA) test. PSA is a protein that is [...] prostate gland for testing (biopsy). This is theonly way to know for certain if you [...] Where to find more information ??? The [place] [employer]: www.cancer.org ??? [employer] Association: www.auanet.org Contact a health care [...] men. The prostate gland (more content not included)...[facility]04-22-2025 History of Present illness Narrative* Khoa Bowles MD - 02/20/2025 8:00 AM EDT Images from the original note were not included. Patient ID: Manuel Balderas is a 74 y.o. male who presents for: ER Follow up: Fall Skin tear Flowsheet Row Patient Outreach from 02/19/[address] [facility] with Larissa Leavitt RN Hospital Information ED, Hospital or Mcfp Facility Discharge? ED Patient has been contacted within 2 days of being seen in the ED Yes Diagnosis Skin tear Discharge Date 02/16/25 Discharged To: Home Setting Discharge Hospital [facility] Engagement Call Start Time 145 Admission Date [...] kitchen. Skin tear right arm by elbow. Hadtrouble stopping ther bleeding. Skin tear cleansed and [...] x 1 cm towards the fingertips. There isno active bleeding at this time. No evidence [...] mg by mouth in the morning. biotin 68923 MCG tablet Take 1 tablet by mouth [...] or 2. I did redress with bacitracin Spencer and Fozia. I discussed with them using a healing cream instead of antibiotic ointment, but dressing it the same way I did. It is right at the cook of the elbow and every time he moves his arm is going to pop soI do not think a hydrocolloid all dressing will stick well. I did recommend he shower with the dressing in place and then after he gets out and he is all driedoff they can go ahead and change out [...] transition of care note is reviewed. a sdqy-ie-iiqu evaluation is done today. Medical decision making is complex in degree. documented in this encounterMichaela Ville [id number] History of Present illness Narrative* Tiffanie Enrique, DPM - 12/28/2024 2:00 PM EST Images from the original note were not [...] brace at an [facility]otic [facility] in [facility] Review of Systems Current Outpatient Medications: allopurinol (Zyloprim) 300 MG tablet, Take 300 mg by mouth Daily, Disp: , Rfl: aspirin 81 MG EC tablet, Take 81 mg by mouth in the morning., Disp: , Rfl: biotin 87708 MCG tablet, 1 (one) time each day [...] of 1 of the Coflex devices., Uday, [facility] ROTATOR CUFF REPAIR Left 2000 anterior stabilization [...] Mood normal. Behavior: Behavior normal. MODIFIER: Q9, 97241, 82118 Assessment/Plan ICD-10-CM 1. Type II or unspecified type diabetes mellitus with neurological manifestations, not 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) ([facility]) E11.49 2. Onychomycosis B35.1 3. Acquired keratoderma L85.1 All 10 nails debrided, reduced in thickness and in length. Instrumentation: large and small nipper,curette, and power bur. With this treatment, relief [...] understanding. Tiffanie Enrique DPM documented in this encounterSaint [facility]–[id number] Hospital Discharge instructions Patient Education 12/18/2024 11:28:40 [...] You may also have very sensitive muscles thatmake your bladder squeeze too soon. This condition [...] your health care provider. General instructions Take rjie-snp-tbzydqd and prescription medicines only as told by your health care provider. If you were prescribed an antibiotic medicine, take it as told by your health care provider. Do notstop taking the antibiotic even if you start [...] provider. Document Revised: 07/07/2021 Document Reviewed: 07/07/2021 [employer]Nexus Patient Education 2023 [employer]. Follow Up Care 09/04/2024 14:29:02 With:NINA LEVY, Madison Crespo, URL Address: [facility] [address] [place] [address]- [phone] When: Unknown Comments:3 mos w/ PVR and PSA [facility] [place] 02-17-2025 NotePatient Education Obstetrics and Gynecology Overactive Bladder, Adult [...] You may also have very sensitive muscles thatmake your bladder squeeze too soon. This condition [...] health care provider. General instructions ??? Take ircv-ezt-cejixam and prescription medicines only as told by your health care provider. ??? If you were prescribed an antibiotic medicine, take it as told by your health care provider. Donot stop taking the antibiotic even if you start to feel better. ??? Use any implants or pessary as told by your health care provider. ??? If needed, wear pads to absorb urine leakage. ??? Keep a log to track how much and when you drink, and whe (more content not included)...[facility]12-31-2024 History of Present illness Narrative* Khoa Bowles MD - 10/31/2024 11:30 AM EST Images from the original note were not [...] mg by mouth in the morning. biotin 62981 MCG tablet 1 (one) time each day [...] mg) by mouth in the morning and 1tablet (50 mg) before bedtime. Dispense: 180 tablet; Refill: 1 9. Lymphedema of both lower extremities Chronic problem, stable. Spironolactone is also cross treating the hypertension. - spironolactone (Aldactone) 25 MG tablet; 2 tablets in Am and 1 tablet in PM Dispense: 270 tablet;Refill: 1 10. Chronic cellulitis Chronic problem, stable, no side effects from long-term antibiotic usage. - doxycycline (Monodox) 100 MG capsule; Take 1 capsule (100 mg) by mouth Daily Dispense: 90 capsule; Refill: 3 documented in this encounterSaint Luke's [facility] Hospital–SmithvilleVewajyjtcq93-14-7715 History of Present illness Narrative* Tiffanie Enrique, DPM - 09/14/2024 3:00 PM EST Images from the original note were not [...] in the morning., Disp: , Rfl: biotin 06457 MCG tablet, 1 (one) time each day [...] tablet in PM, Disp: 270 tablet, Rfl:1 Meperidine, Meperidine hcl, and Pioglitazone Past Surgical [...] of 1 of the Coflex devices., Uday, [facility] ROTATOR CUFF REPAIR Left 2000 anterior [...] Mood normal. Behavior: Behavior normal. MODIFIER: Q9, 30776, 33747 Assessment/Plan ICD-10-CM 1. Type II or unspecified type diabetes mellitus with neurological manifestations, not 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) ([facility]) E11.49 2. Onychomycosis B35.1 3. Acquired keratoderma L85.1 All nails debrided, the mycotic toenails and dystrophic toenails reduced. The nails are debrided inthickness and length. Any redundant tissue in the margins were curetted in an effort to reduce painand pressure. All nails were debrided with large [...] understanding. Tiffanie Enrique DPM documented in this encounterSaint Luke's North Hospital–SmithvilleUkhngkymca81-85-9274 Hospital Discharge instructions Patient Education 09/04/2024 14:19:12 [...] about 300 mg of calcium at each meal.Foods that contain 200 500 mg of calcium a serving include: ?8 oz (237 mL) of milk, qxhbium-dudloimjqulf-yhgdj milk, and calcium- fortifiedfruit juice. Calcium-fortified means that calcium has been [...] the table and allow each person to addtheir own salt to taste. Use vegetable protein, such as beans, textured vegetable protein (TVP), or tofu, instead of meat inpasta, casseroles, and soups. Meal planning Eat less salt, if told by your dietitian. To do this: ?Avoid eating processed or pre-made food. ?Avoid eating fast food. Eat less animal protein, including cheese, meat, poultry, or fish, if told by your dietitian. To dothis: ?Limit the number of times you have meat, poultry, fish, or cheese each week. Eat a diet free of meat at least 2 days a week. ?Eat only one serving each day of meat, poultry, fish, or seafood. ?When you prepare animal proteins, cut pieces into small portion sizes. For most meat and fish, oneserving is about the size of the palm [...] ?Spinach (cooked), rhubarb, beets, sweet potatoes, and Vincentian chard. ?Peanuts. ?Potato chips, nigerien fries, and baked potatoes with skin on. ?Nuts and nut products. ?Chocolate. If you regularly take a diuretic medicine, make sure to eat at least 1 or 2 servings of fruits or vegetables that are high in potassium each day. These include: ?Avocado. ?Banana. ?Arenac, prune, carrot, or tomato juice. ?Baked potato. [...] magnesium, fish oil, or vitamin B6. Take hjth-hot-nmifxlj and prescription medicines only as told by [...] Casseroles. Pizza. Lasagna. Frozen meals. Potato chips. Chadian fries. The items listed above may not be a complete list of foods and beverages you should limit. Contact a dietitian for more information. What foods should I avoid? Talk to your dietitian about specific foods you should avoid based on the type of kidney stones youhave and your overall health. Fruits Grapefruit. The item listed above may not be a complete list of foods and beverages you should avoid. Contact adietitian for more information. Summary Kidney stones are [...] provider. Document Revised: 01/28/2023 Document Reviewed: 01/28/2023 [employer]us Patient Education 2023 [employer]. Follow Up Care 07/20/2024 10:51:39 With:NINA LEVY, Madison Crespo, URL Address: [facility] [address] , [place] [address]- When: Unknown [facility] 11-04-2024 NotePatient Education Nephrology Dietary Guidelines to Help Prevent [...] labels. Limit your salt (sodium) intake to lessthan 1,500 mg a day. ??? Choose foods with calcium for each meal and snack. Try to eat about 300 mg of calcium at each meal. Foods that contain 200?500 mg of calcium a serving include: ? 8 oz (237 mL) of milk, jigjdle-ucdlfidqoygt-nyifv milk, and calcium- fortifiedfruit juice. Calcium-fortified means that calcium has been [...] on the table and allow each person toadd their own salt to taste. ??? Use [...] Spinach (cooked), rhubarb, beets, sweet potatoes, and Vincentian chard. ? Peanuts. ? Potato chips, nigerien fries, and baked potatoes with skin on. ? Nuts and nut products. ? Chocolate. ??? If you regularly take a diuretic medicine, make sure to eat at least 1 or 2 servings of fruits or vegetables that are high in potassium each day. These include: ? Avocado. ? Banana. ? Arenac, prune, carrot, or tomato juice. ? Baked potato. ? Cabbage. ? Beans and split peas. Lifestyle ??? Drink enough fluid to keep your urine pale yellow. This is the most important thing you can do.Spread your fluid intake throughout the day. ??? [...] fish oil, or vitamin B6. ??? Take aubc-rxi-htfyfne and prescription medicines only as told by your health (more content not included)...[facility]10-08-2024 History of Present illness Narrative* SUSANNA Arndt - 08/08/2024 12:40 PM EDT Subjective Manuel Balderas is a 74 y.o. [...] without long- term current use of insulin (CMS/HCC) Type II [...] of 1 of the Coflex devices., Uday [facility] ROTATOR CUFF REPAIR Left 2000 anterior [...] Review Audit Reviewed by Taisha Gore MA (Fiscal Accountant) on 08/08/24 at 1240 Medication Order Taking? Sig Documenting Provider Last Dose Status allopurinol (Zyloprim) 300 MG tablet [id number] No Take 1 tablet (300 mg) by mouth Daily Khoa Bowles MD Taking Active aspirin 81 MG EC tablet [id number] No Take 81 mg by mouth in the morning. Karli Boston MD Taking Active biotin 37938 MCG tablet [id number] No 1 (one) time each day at the same time. Karli Boston MDTaking Active dapagliflozin (Farxiga) 10 MG [id number] No Take 1 tablet (10 mg) by mouth Daily Khoa Bowles MDTaking Active doxycycline (Monodox) 100 MG capsule [id number] No Take 1 capsule (100 mg) by mouth in the morning. Khoa Bowles MD Taking Active fenofibrate (Triglide) 160 MG tablet [id number] No Take 1 tablet (160 mg) by mouth Daily Khoa Bowles MD Taking Active ferrous sulfate 325 (65 Fe) MG tablet [id number] No Take 325 mg by mouth in the morning. Take with meals. Karli Boston MD Taking Active Flomax 0.4 MG 24 hr capsule [id number] No Take 0.4 mg by mouth in the evening. Karli Boston MD Taking Active gabapentin (Neurontin) 300 MG capsule [id number] Take 1 capsule (300 mg) by mouth in the morning and 1 capsule (300 mg) before bedtime. SUSANNA Arndt Active hydroCHLOROthiazide (HYDRODiuril) 25 MG tablet [id number] No Take 1 tablet (25 mg) by mouth in the evening Khoa Bowles MD Taking Active insulin glargine (Basaglar KwikPen) 100 UNIT/ML pen [id number] No Inject bid, sliding blood glucose scale with the coverage: <70, zero and eat. 70-150, 10 units. 151-200, 14 units. 201-250, 16 units. 251-300, 18 units. >300, 20 units Khoa Bowles MD Taking Active losartan-hydroCHLOROthiazide (Hyzaar) 100-12.5 MG tablet [id number] No Take 1 tablet by mouth Daily Khoa Bowles MD Taking Active Lutein 20 MG tablet [id number] No 1 (one) time each day at the same time. Karli Boston MD Taking Active metFORMIN (Glucophage) 1000 MG tablet [id number] No Take 1 tablet (1,000 mg) by mouth in the morning and 1 tablet (1,000 mg) in the evening. Take with meals. Khoa Bowles MD Taking Active metoprolol tartrate (Lopressor) 50 MG tablet [id number] No Take 1 tablet (50 mg) by mouth in the morning and 1 tablet (50 mg) before bedtime. Khoa Bowles MD Taking Active pen needle 32G x 6 mm [facility] [id number] No Use for Injection subcutaneous twice daily Khoa Bowles MD Taking Active sodium bicarbonate 650 MG tablet [id number] No Take 3 tablets by mouth in the morning and 3 tablets before bedtime. Historical Provider, Taking Active spironolactone (Aldactone) 25 MG tablet [id number] No 2 tablets in Am and 1 [...] Recent and remote memory are intact. Speech isnormal. Language is fluent with no aphasia. Attention [...] triceps, wrist extensors, wrist extensors, wrist flexor, innersole maker strength 5/5. LUE Strength deltoid, biceps, triceps, wrist extensors, wrist extensors, wrist flexor, innersole maker strength 5/5. RLE Strength illopsoas, quadriceps, tibialis [...] new or worsening symptoms documented in this encounterSaint Luke's North Hospital–SmithvilleYdpmweueck28-06-7226 Telephone encounter Note* Telephone Encounter - Khoa Bowles MD - 07/24/2024 4:13 PM EDT RX corrected and sent [facility]SmithvilleDesxvhahoj58-91-6844 Miscellaneous Notes* Telephone Encounter - Khoa Bowles MD - 07/24/2024 4:13 PM EDT RX corrected and sent * Telephone Encounter - Sridevi Hobson MA - 07/24/2024 1:11 PM EDT He said he is talking about his pen needles. They are wrote for only one box of 100 for 90 days buthe does his medication twice daily and so he needs 200. I am not sure how to fix this script. I pended what I believe would be right if you can look it over please * Telephone Encounter - Khoa Bowles MD - 07/24/2024 9:48 AM EDT Sridevi, I suspect he is talking about testing with the lens sets and test strips. Can you confirm this is what he needs. If so okay to send a prescription for 200 with directions of tests twice a day and as needed. * Telephone Encounter - Humaira Gray - 07/24/2024 9:25 AM EDT Abelino called, his last fill of needles was for 100. He states that he is suppose to test twice a day. When he tried to refill the needles at [facility], they told him that they show the 100 is a 90 day supply for him and will not refill it. He is asking if Dr. Bowles can send an order to [facility] stating how often he test to show how many needles a 90 day supply is. He states he is out of needles and can not check his sugar. documented in this encounterSaint Luke's North Hospital–SmithvilleAlqwsipssb19-24-6784 Telephone encounter Note* Telephone Encounter - Sridevi Hobson MA - 07/24/2024 1:11 PM EDT He said he is talking about his pen needles. They are wrote for only one box of 100 for 90 days buthe does his medication twice daily and so he needs 200. I am not sure how to fix this script. I pended what I believe would be right if you can look it over please [facility]SmithvilleHvrhshhkta67-30-2475 Telephone encounter Note* Telephone Encounter - Khoa Bowles MD - 07/24/2024 9:48 AM EDT Sridevi, I suspect he is talking about testing with the lens sets and test strips. Can you confirm this is what he needs. If so okay to send a prescription for 200 with directions of tests twice a day and as needed. [facility]SmithvilleUrjgdfmswq19-43-9769 Telephone encounter Note* Telephone Encounter - Humaira Gray - 07/24/2024 9:25 AM EDT Abelino called, his last fill of needles was for 100. He states that he is suppose to test twice a day. When he tried to refill the needles at [facility], they told him that they show the 100 is a 90 day supply for him and will not refill it. He is asking if Dr. Bowles can send an order to [facility] stating how often he test to show how many needles a 90 day supply is. He states he is out of needles and can not check his sugar. [facility] [id number] History of Present illness Narrative* Tiffanie Enrique, DPM - 12/09/2023 11:00 AM EST Images from the original note were not included. Subjective Patient ID: Manuel Balderas is a 73 y.o. male who presents for Nail care (Manuel Balderas is a 73 y.o. male. Established pt presents today for diabetic nail care. PCP: Dr. Bowles 11/04/2023, A1C: 7.6 (07/27/23),BS: 168 SS: 12).). Established patient returns requesting nail debridement and callus debridement. He states the woundon the bottom of his hallux has remained [...] in the morning., Disp: , Rfl: biotin 05107 MCG tablet, 1 (one) time each day [...] meals. Accucheck soft clix., Disp: 100 each, Rfl:3 losartan-hydroCHLOROthiazide (Hyzaar) 100-12.5 MG tablet, Take 1 [...] 1 tablet in PM, Disp: 270 tablet, Rfl:0 Meperidine, Meperidine hcl, and Pioglitazone Past Surgical [...] of 1 of the Coflex devices., Uday [facility] ROTATOR CUFF REPAIR Left 2000 anterior [...] 2nd digit, the one previously noted on L3rd digit has healed. L 2nd digit abrasion [...] Mood normal. Behavior: Behavior normal. MODIFIER: Q9, 74449, 51483 Assessment/Plan Diagnoses and all orders for this visit: Type II or unspecified type diabetes mellitus with neurological manifestations, not 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) ([facility]) Onychomycosis Hallux limitus, left Acquired keratoderma [...] understanding. Tiffanie Enrique DPM documented in this encounterNOMS [id number] Hospital Discharge instructions Patient Education 07/21/2023 14:08:11 [...] about 300 mg of calcium at each meal.Foods that contain 200 500 mg of calcium a serving include: ?8 oz (237 mL) of milk, vuvfinp-ouxfsjnfwrgt-qmxdj milk, and calcium- fortifiedfruit juice. Calcium-fortified means that calcium has been [...] the table and allow each person to addhis or her own salt to taste. Use vegetable protein, such as beans, textured vegetable protein (TVP), or tofu, instead of meat inpasta, casseroles, and soups. Meal planning Eat less salt, if told by your dietitian. To do this: ?Avoid eating processed or pre-made food. ?Avoid eating fast food. Eat less animal protein, including cheese, meat, poultry, or fish, if told by your dietitian. To dothis: ?Limit the number of times you have [...] ?Spinach (cooked), rhubarb, beets, sweet potatoes, and Vincentian chard. ?Peanuts. ?Potato chips, nigerien fries, and baked potatoes with skin on. ?Nuts and nut products. ?Chocolate. If you regularly take a diuretic medicine, make sure to eat at least 1 or 2 servings of fruits or vegetables that are high in potassium each day. These include: ?Avocado. ?Banana. ?Arenac, prune, carrot, or tomato juice. ?Baked potato. [...] taking daily supplements. You may be told thefollowing depending on your health and the cause of your kidney stones: ?Not to take supplements with vitamin C. ?To take a calcium supplement. ?To take a daily probiotic supplement. ?To take other supplements such as magnesium, fish oil, or vitamin B6. Take kphh-gij-dxemowj and prescription medicines only as told by [...] Casseroles. Pizza. Lasagna. Frozen meals. Potato chips. Chadian fries. The items listed above may not be a complete list of foods and beverages you should limit. Contact a dietitian for more information. What foods should I avoid? Talk to your dietitian about specific foods you should avoid based on the type of kidney stones youhave and your overall health. Fruits Grapefruit. The item listed above may not be a complete list of foods and beverages you should avoid. Contact adietitian for more information. Summary Kidney stones are [...] provider. Document Revised: 06/29/2022 Document Reviewed: 06/29/2022 [employer]Nexus Patient Education 2022 [employer]. Follow Up Care 05/19/2023 09:51:24 With:NINA LEVY, Madison Crespo, URL Address: [facility] [address], [place] [address]- When: Unknown [facility] [place] 03-07-2023 Hospital Discharge instructions Patient Education 01/05/2023 11:32:49 [...] about 300 mg of calcium at each meal.Foods that contain 200 500 mg of calcium [...] Talk to your dietitian about how much calciumis recommended for you. Shopping Buy plenty of [...] the table and allow each person to addhis or her own salt to taste. Use [...] fish, if told by your dietitian. To dothis: ?Limit the number of times you have [...] include: ?Spinach. ?Rhubarb. ?Beets. ?Potato chips and nigerien fries. ?Nuts. If you regularly take a diuretic medicine, make sure to eat at least 1 2 fruits or vegetables high in potassium each day. These include: ?Avocado. ?Banana. ?Arenac, prune, carrot, or tomato juice. ?Baked potato. [...] fish. Salted or cured meats. Deli meats. Hotdogs. Sausages. Dairy Cheese. Beverages Regular soft drinks. Regular vegetable juice. Seasonings and other foods Seasoning blends with salt. Salad dressings. Canned soups. Soy sauce. Ketchup. Barbecue sauce. Canned pasta sauce. Casseroles. Pizza. Lasagna. Frozen meals. Potato chips. Chadian fries. Summary You can reduce your risk of kidney stones by making changes to your diet. The most important thing you can do is drink enough fluid. You should drink enough fluid to keep your urine clear or pale yellow. Ask your health care provider or dietitian how much protein from animal sources you should eat eachday, and also how much salt and calcium you should have each day. This information is not intended to replace advice given to you by your health care provider. Make sure you discuss any questions you have with your health care provider. Document Released: 02/12/2012 Document Revised: 02/07/2020 Document Reviewed: 09/28/2017 AppNexus Patient Education 2020 [employer]. Follow Up Care 10/07/2022 10:58:19 With:NINA LEVY, Madison Crespo, URL Address: [facility] [address], [place] [address]- When: Unknown [facility] 11-21-2022 Hospital Discharge instructions Patient Education 09/21/2022 08:30:16 Benign Prostatic Hyperplasia Benign Prostatic Hyperplasia Benign prostatic hyperplasia (BPH) is an enlarged prostate gland that is caused by the normal agingprocess and not by cancer. The prostate is [...] urethra. Follow these instructions at home: Take fdwk-hsi-pbaemsh and prescription medicines only as told by [...] 10/18/2006 Document Revised: 09/12/2019 Document Reviewed: 11/22/2017 [employer] Patient Education 2020 [employer]. Follow Up Care 12/22/2021 13:03:04 With:NINA LEVY, Madison Crespo, URL Address: [facility] [address], [place] [address]- When: Unknown [facility] evaluation + Plan note No data available for this section [facility] evaluation + Plan note Future Appointments Appointment Date:07/26/2024 01:45:00 PM Scheduled Provider:Madison WOOD MD Location:[facility] Appointment Type:URO Office Visit [facility] Evaluation + Plan note Future Appointments Appointment Date:09/04/2024 12:45:00 PM Scheduled Provider:Madison WOOD MD Location:[facility] Appointment Type:URO Office Visit [facility] Evaluation + Plan note Future Appointments Appointment Date:12/18/2024 10:45:00 AM Scheduled Provider:Madison WOOD [facility]O Office Visit Diagnostic Tests Pending * PSA Total 09/04/24 [facility] evaluation + Plan note Future Appointments Appointment Date:03/19/2025 11:45:00 AM Scheduled Provider:Madison WOOD MD Location:[facility] Appointment Type:URO Office Visit Diagnostic Tests Pending * PSA Total 12/18/24 [facility] evaluation + Plan note Future Appointments Appointment Date:12/14/2025 09:45:00 AM Scheduled Provider:Madison WOOD MD [facility] Type:URO Office Visit Diagnostic Tests Pending * PSA Total 06/11/25 [facility] evaluation noteNo assessment information available [facility] Diagnosis Type II or unspecified type diabetes mellitus with neurological manifestations, not 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) ([facility])- Primary Type II or unspecified type [...] with neurological manifestations, not 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) ([facility])- Primary Type II or unspecified type diabetes mellitus with neurological manifestations, not stated as uncontrolled Onychomycosis Dermatophytosis of nail Acquired keratoderma documented in this encounter [facility]* Diagnosis Diabetic nephropathy associated with type 2 diabetes mellitus (HCC) ([facility]) documented in this encounter [facility]* Diagnosis Diabetic neuropathic arthropathy ([facility]) Type II or unspecified type diabetes mellitus with neurological manifestations, not stated as uncontrolled documented [facility] encounter [facility] Diagnosis Type 2 diabetes mellitus with hyperglycemia, without long-term current use of insulin ([facility]) documented in this encounter [facility]* Diagnosis Diabetic neuropathic arthropathy ([facility])- Primary Type II or unspecified type diabetes mellitus with neurological manifestations, not stated as uncontrolled Polyneuropathy due to type 2 diabetes mellitus ([facility]) Primary hypertension ([facility]) Unspecified essential hypertension Peripheral venous insufficiency Unspecified venous (peripheral) insufficiency Diabetic nephropathy associated with type 2 diabetes mellitus (HCC) ([facility]) Type 2 diabetes mellitus with hyperglycemia, without long-term current use of insulin ([facility]) Mixed hyperlipidemia ([facility]) Mixed hyperlipidemia Essential hypertension ([facility]) Unspecified essential hypertension Lymphedema of both lower extremities Chronic cellulitis Cellulitis and abscess of unspecified site documented [facility] this [facility]* Diagnosis Other retirement (current) drug therapy documented in this [facility]* Diagnosis Fall from standing, subsequent encounter Skin tear of upper extremity Bleeding Unspecified hemorrhage Encounter for examination following treatment at hospital documented in this encounter [facility]* Diagnosis Type II or unspecified type diabetes mellitus with neurological manifestations, not 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) ([facility])- Primary Type II or unspecified type diabetes mellitus with neurological manifestations, not stated as uncontrolled Onychomycosis Dermatophytosis of nail Acquired keratoderma Callus Corns and callosities documented in this encounter [facility]* Diagnosis Primary hypertension Unspecified essential [...] prescriptions Morbid obesity due to excess calories ([facility]) Encounter for Medicare annual wellness exam Advance directive in chart Encounter for screening for other disorder Screening for alcohol problem Screening for alcoholism documented in this encounter [facility]* Diagnosis Encounter for Medicare annual [...] left foot limited to breakdown of skin ([facility]) Morbid obesity due to excess calories ([facility]) Type 2 diabetes mellitus with foot ulcer (CODE) ([facility]) Thrombocytopenia Unspecified thrombocytopenia documented in this encounter [facility]* Diagnosis Onychomycosis- Primary Dermatophytosis of nail Type II or unspecified type diabetes mellitus with neurological manifestations, not 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) ([facility]) Type II or unspecified type diabetes mellitus with neurological manifestations, not stated as uncontrolled Acquired keratoderma documented in this encounter [facility]* Diagnosis Syncope, unspecified syncope type- Primary Right bundle branch block Vertigo Dizziness and giddiness Encounter for examination following treatment at hospital Morbid obesity due to excess calories ([facility]) Lymphedema of both lower extremities documented in this encounter [facility]ospital Discharge instructions No data available for this section [facility] note No data available for this section [facility] Maria R Reason for referral (narrative)No reason for referral information availableSub[facility] Work Phone: Chief Complaint and Reason for Visit Chief Complaint M43.16 Pre-Surgical Testing Stenosis Chief Complaint m54.10 m48.061 m51.3 6 m46.96 Chief Complaint Admit Date R97.20 April 23, 2025 1:51 pm Unknown May 22, 2025 9:12 am Chief Complaint Admit Date R97.20 April 23, 2025 1:51 pm Unknown May 22, 2025 9:12 am dizzy July 13, 2025 2:25pm Chief Complaint Admit Date Unknown May 22, 2025 9:12 am dizzy July 13, 2025 2:25pm yearly follow up July 24, 2025 1:54pm Family History Relationship Condition Age at Onset Recorded Date/T alyx father Hodgkin lymphoma Unknown HypertensionUnknownMalignant neoplasm of prostateUnknownNot SpecifiedHepatic cirrhosisUnknownType 2 diabetes mellitusUnknown Relationship Condition Age at Onset Recorded Date/T alyx father Hodgkin lymphoma Unknown HypertensionUnknownMalignant neoplasm of prostateUnknownmotherHepatic cirrhosis UnknownType 2 diabetes mellitusUnknownfatherMalignant neoplasmUnknownDeceased UnknownNon-Hodgkin's lymphomaUnknownmotherDiabetes mellitusUnknown Advance Directives Advance Directive Response Recorded Date/ Time Advance Directives No June 20, 2018 3:31pm TypeDate RecordedPatient RepresentativeExplanationPower of Attorney03/29/2024 1:37 [id number] POAAdvance Directives and Living Will03/29/2024 1:37 PM 2013-07-10 Living WillTypeDate RecordedPatient RepresentativeExplanationPower of Attorney03/29/2024 1:37 [id number] POAAdvance Directives and Living Will 03/29/2024 1:37 [id number] Living Will Summary Purpose Additional Source Comments Goals (unrecognized [...] sectionGoals may be documented in an alternate sectionGoals may be documented in an alternate section Patient Care team informatio n (unrecognized section and content) Team Status: Active Member Role Status Dates Khoa Bowles MD Primary Care Provider Active Team Status: Inactive Member Role Status Dates Khoa Bowles MD Primary Care Provider Active SUSANNA Constantino-CAttending ProviderActiveTeam MemberRelationshipSpecialtyStart DateEnd Date Khoa Bowles MD [address] [place] [address] PCP - GeneralRobert Breck [facility] Medicine04/08/23 Madison Wood MD [address] [phone] Referring PhysicianUrolog12/09/23 Tiffanie Enrique DPM [address] [place] [address] Referring PhysicianPodiatr12/09/23Team MemberRelationshipSpecialtyStart DateEnd Date Khoa Bowles MD [address] [place] [address] PCP - [facility]04/08/23 Khoa Bowles MD [address] [place] [address] PCP - [facility]12/31/23 Madison Wood MD [address] [place] [address] Referring PhysicianUrolog12/09/23 Tiffanie Enrique DPM [address] [place] [address] Referring PhysicianPoohio county hospital12/09/23Team MemberRelationshipSpecialtyStart DateEnd Khoa Bowles MD [address] [place] [phone] PCP - [facility]04/08/23 Khoa Bowles MD [address] [place] [address] PCP - [facility]12/31/23 Madison Wood MD [address] [place] [address] Referring PhysicianUrocornerstone [facility]12/09/23 Tiffanie Enrique DPM [address] [place] [address] Referring PhysicianLexington [facility]rin[facility]12/09/23Team MemberRelationshipSpecialtyStart DateEnd Date Khoa Bowles MD [address] [place] [phone] PCP - [facility]04/08/23 Khoa Bowles MD [address] [place] [address] PCP - [facility]12/31/23 Madison Wood MD [address] [place] [address] Referring PhysicianUrolog12/09/23 Tiffanie Enrique DPM [address] [place] [address] Referring PhysicianPodiatr12/09/23Team MemberRelationshipSpecialtyStart DateEnd Date Khoa Bowles MD (Fax) PCP - [facility]04/08/23 Khoa Bowles MD [address] [place] [address] (Fax) PCP - [facility]12/31/23 Madison Wood MD [address] [place] [address] Referring PhysicianUrolog12/09/23 Tiffanie Enrique DPM [address] [place] [address] Referring PhysicianPodiatr12/09/23Team MemberRelationshipSpecialtyStart DateEnd Date Khoa Bowles MD [address] [place] [address] (Fax) PCP - [facility]12/31/23 Madison Wood MD [address] [phone] Referring PhysicianUrolog12/09/23 Tiffanie Enrique DPM [address] [place] [address] Referring PhysicianPodiatr12/09/23Team MemberRelationshipSpecialtyStart DateEnd Date Khoa Bowles MD [address] [place] [address] PCP - [facility]12/31/23 Madison Wood MD [address] [place] [address] Referring PhysicianUrolog12/09/23 Tiffanie Enrique DPM [address] [place] [address] Referring PhysicianPodiatr12/09/23Team MemberRelationshipSpecialtyStart DateEnd Date Khoa Bowles MD [address] [place] [address] PCP - [facility]12/31/23 Madison Wood MD [address] [phone] Referring PhysicianUrolog12/09/23 Tiffanie Enrique DPM [address] [place] [address] Referring PhysicianPodiatr12/09/23Team MemberRelationshipSpecialtyStart DateEnd Date Khoa Bowles MD [address] [place] [address] PCP - GeneralFamily Medicine04/08/23 Khoa Bowles MD [address] [facility] [place] [address] PCP - [facility]12/31/23 Madison Wood MD [address] [place] [address] Referring PhysicianUrology2 Tiffanie Enrique DPM [address] [place] [address] Referring PhysicianPodiatry2Team MemberRelationshipSpecialtyStart DateEnd Date Khoa Bowles MD [address] [place] [address] [address] [place] [address] PCP - [facility]12/31/23 Madison Wood MD [address] [place] [address] Referring PhysicianUrology2 Tiffanie Enrique DPM [address] [place] [address] Referring PhysicianPodiatr12/09/23Team MemberRelationshipSpecialtyStart DateEnd Date Khoa Bowles MD [address] [place] [address] PCP - [facility]12/31/23 Madison Wood MD [address] [place] [address] Referring PhysicianUrolog12/09/23 Tiffanie Enrique DPM [address] [place] [address] Referring PhysicianPodiatry2Team MemberRelationshipSpecialtyStart DateEnd Date Khoa Bowles MD [address] [place] [address] (Fax) PCP - [facility]12/31/23 Madison Wood MD [address] [place] [address] Referring PhysicianUrology2 Tiffanie Enrique DPM [address] [place] [address] Referring PhysicianPodiatry2Team MemberRelationshipSpecialtyStart DateEnd Date Khoa Bowles MD [address] [address] PCP - [facility]12/31/23 Madison Wood MD [address] [place] [address] Referring PhysicianUrolog12/09/23 Tiffanie Enrique DPM [address] [place] [address] Referring PhysicianPodiatr12/09/23Team MemberRelationshipSpecialtyStart DateEnd Date Khoa Bowles MD [address] [facility] [address] [place] [address] (Fax) PCP - [facility]12/31/23 Khoa Bowles MD [address] [place] [address] (Fax) PCP - GeneralRobert Breck [facility] Medicine12/27/24 Madison Wood MD [address] [place] [address] Referring PhysicianUrology2/8/24 Tiffanie Enrique DPM [address] [place] [address] Referring PhysicianPodiatr12/09/23Team MemberRelationshipSpecialtyStart DateEnd Date Khoa Bowles MD [address] [place] [address] (Fax) PCP - [facility]12/31/23 Khoa Bowles MD [address] [place] [address] (Fax) PCP - [facility]12/27/24 Madison Wood MD [address] [place] [phone] Referring PhysicianUrolog12/09/23 Tiffanie Enrique DPM [address] [place] [address] Referring PhysicianPodiatr12/09/23Team MemberRelationshipSpecialtyStart DateEnd Date Khoa Bowles MD [address] [place] [address] (Fax) PCP - [facility]12/31/23 Khoa Bowles MD [address] [place] [address] (Fax) PCP - [facility]12/27/24 Madison Wood MD [address] [place] [address] Referring PhysicianUrology2 Tiffanie Enrique DPM [address] [place] [address] Referring PhysicianPodiatr12/09/23Team MemberRelationshipSpecialtyStart DateEnd Date Khoa Bowles MD [address] [place] [address] (Fax) PCP - [facility]12/31/23 Khoa Bowles MD [address] [place] [address] (Fax) PCP - GeneralFamily Medicine12/27/24 Madison Wood MD [address] [place] [address] Referring PhysicianUrology2 Tiffanie Enrique DPM [address] [place] [address] Referring PhysicianPodiatr12/09/23 Larissa Leavitt, CORDELL Registered NurseColquitt Regional Medical Center02/13/25Team MemberRelationshipSpecialtyStart Date End Date Khoa Bowles MD [address] [place] [address] (Fax) PCP - [facility]12/31/23 Khoa Bowles MD [address] [place] [address] (Fax) PCP - GeneralRobert Breck [facility] Medicine12/27/24 Madison Wood MD [address] [place] [address] Referring PhysicianUrology2 Tiffanie Enrique DPM [address] [place] [address] Referring PhysicianPodiatry2 Larissa Leavitt, CORDELL Registered NurseColquitt Regional Medical Center02/13/25Team MemberRelationshipSpecialtyStart Date End Date Khoa Bowles MD [address] [place] [address] (Fax) PCP - [facility]12/31/23 Khoa Bowles MD [address] [place] [address] (Fax) PCP - Generalmily Medicine12/27/24 Madison Wood MD [address] [place] [address] Referring PhysicianUrology2 Tiffanie Enrique DPM [address] [place] [address] Referring PhysicianPodiatry2 Larissa Leavitt, CORDELL Registered NurseColquitt Regional Medical Center02/13/25Te MemberRelationshipSpecialtyStart Date End Date Khoa Bowles MD [address] [place] [address] (Fax) PCP - [facility]12/31/23 Khoa Bowles MD [address] [place] [address] (Fax) PCP - Generalmi Medicine12/27/24 Madison Wood MD [address] [place] [address] Referring PhysicianUrolog12/09/23 Tiffanie Enrique DPM [address] [place] [address] Referring PhysicianPodiatry2 Larissa Leavitt RN Registered NurseCommunity Memorial Hospitally Medicine02/13/25Team MemberRelationshipSpecialtyStart Date End Date Khoa Bowles MD [address] [place] [address] (Fax) PCP - [facility]12/31/23 Khoa Bowles MD [address] [place] [address] (Fax) PCP - Generalmily Medicine12/27/24 Madison Wood MD [address] [place] [address] Referring PhysicianUrolog12/09/23 Tiffanie Enrique DPWei [address] [place] [address] Referring PhysicianPodiatr12/09/23 Larissa Leavitt, CORDELL [address] [address] Registered NurseColquitt [facility] Medical Center02/13/25Team MemberRelationshipSpecialtyStart Date End Date Khoa Bowles MD [address] [place] [address] (Fax) PCP - [facility]12/31/23 Khoa Bowles MD [address] [place] [address] PCP - GeneralFamily Medicine12/27/24 Madison Wood MD [address] [place] [address] Referring PhysicianUrology2 Tiffanie Enrique DPM [address] [place] [address] Referring PhysicianPodiatry2 Larissa Leavitt RN [address] [place] [address] Registered NurseCommunity Memorial Hospitally [facility]02/13/25Team MemberRelationshipSpecialtyStart Date End Date Khoa Bowles MD [address] [place] [address] (Fax) PCP - [facility]12/31/23 Khoa Bowles MD [address] [place] [address] PCP - GeneralFamily Medicine12/27/24 Madison Wood MD [address] [place] [address] Referring PhysicianUrology2 Tiffanie Enrique DPM [address] [place] [address] Referring PhysicianPodiatry2 Larissa Leavitt RN [address] [place] [address] Registered NurseFamily Medicine02/13/25Team MemberRelationshipSpecialtyStart Date End Date Khoa Bowles MD [address] [place] [address] (Fax) PCP - [facility]12/31/23 Khoa Bowles MD [address] [place] [address] (Fax) PCP - GeneralFamily Medicine12/27/24 Madison Wood MD [address] [place], [place] [phone] Referring PhysicianUrolog12/09/23 Tiffanie Enrique DPM [address] [place], [place] [phone] Referring PhysicianPodiatr12/09/23 Larissa Leavitt, CORDELL [address] [facility] 230 [place] [address] Registered NurseFaprovidence behavioral health hospital Medicine02/13/25 Callie Mora MD [address] [place] [address] Referring PhysicianGeneral Surgery05/07/25 Skinny White MD [address] [place] [address] Referring PhysicianOphthalmology05/07/25 Shani Mohan DO [address] [phone] Referring PhysicianNeurology05/07/25 Team Status: Inactive Member Role Status Dates Khoa Bowles MD Primary Care Provider Active Start: April 23, 2025 End: April 23, 2025Patricvincent Wood MDAttlavon ProviderActiveStart: April 23, 2025 End: April 23, 2025 Team Status: Inactive Member Role Status Dates Madison Wood MD Attending Provider Active St art: May 22, 2025 End: May 22, 2025Team MemberRelationshipSpecialtyStart DateEnd Date Khoa Bowles MD [address] [place] [address] PCP - [facility]12/31/23 Khoa Bowles MD [address] [place] [address] PCP - GeneralFamily Medicine12/27/24 Madison Wood MD [address] [place], [place] [phone] Referring PhysicianUrolog12/09/23 Tiffanie Enrique DPM [address] [place] [address] Referring PhysicianPodiatr12/09/23 Larissa Leavitt, CORDELL [address] [place] [address] Registered NurseFamily Medicine02/13/25 Callie Mora MD [address] [place] [address] Referring PhysicianGeneral Surgery05/07/25 Skinny White MD [address] [place] [address] Referring PhysicianOphthalmology05/07/25 Shani Mohan DO [address] [facility] 353 [place] [phone] Referring PhysicianNeurology05/07/25Team MemberRelationshipSpecialtyStart DateEnd Date Khoa Bowles MD [address] [place] [address] PCP - [facility]12/31/23 Khoa Bowles MD [address] [place] [address] PCP - GeneralFamily Medicine12/27/24 Madison Wood MD [address] [place] [address] Referring PhysicianUrolog12/09/23 Tiffanie Enrique DPM [address] [place] [address] Referring PhysicianPodiatr12/09/23 Larissa Leavtit, CORDELL [address] [facility] [address] [place] [address] Registered NurseFamily Medicine02/13/25 Callie Mora MD [address] [facility] [place] [address] Referring PhysicianGeneral Surgery05/07/25 Skinny White MD [address] [place] [address] Referring PhysicianOphthalmology05/07/25 Shani Mohan DO 703 [facility] [address] [place] [address] Referring PhysicianNeurology05/07/25Team MemberRelationshipSpecialtyStart DateEnd Date Khoa Bowles MD [address] [place] [address] PCP - [facility]12/31/23 Khoa Bowles MD [address] [place] [address] PCP - GeneralFamily Medicine12/27/24 Madison Wood MD [address] [place] [phone] Referring PhysicianUrolog12/09/23 Tiffanie Enrique DPM [address] [place], [place] [phone] Referring PhysicianPodiatr12/09/23 Larissa Leavitt, CORDELL [address] [facility] [address] [place] [address] Registered NurseFamily Medicine02/13/25 Callie Mora MD [address] [place] [address] Referring PhysicianGeneral Surgery05/07/25 Skinny White MD [address] [place] [address] Referring PhysicianOphthalmology05/07/25 Shani Mohan DO 703 [facility] [address] [place] [phone] Referring PhysicianNeurology05/07/25 Team Status: Active Member Role Status Dates NON STAFF Primary Care Provider Active Team Status: Inactive Member Role Status Dates Madison Drew DO Emergency Provider Active St art: July 13, 2025 End: July 13, 2025NON STAFFPrimary Care ProviderActiveStart: July 13, 2025 End: July 13, 2025Team MemberRelationshipSpecialtyStart DateEnd Date Khoa Bowles MD [address] [place] [address] (Fax) PCP - [facility]12/31/23 Khoa Bowles MD [address] [place] [address] PCP - GeneralFamily Medicine12/27/24 Madison Wood MD [address] [place] [address] Referring PhysicianUrolog12/09/23 Tiffanie Enrique DPM [address] [place] [address] Referring PhysicianPodiatr12/09/23 Larissa Leavitt, CORDELL [address] [facility] [address] [place] [address] Registered NurseFamily Medicine02/13/25 Callie Mora MD [address] [place] [address] Referring PhysicianGeneral Surgery05/07/25 Skinny White MD [address] [place] [address] Referring PhysicianOphthalmology05/07/25 Shani Mohan DO 703 [facility] [address] [place] [address] Referring PhysicianNeurology05/07/25Team MemberRelationshipSpecialtyStart DateEnd Date Khoa Bowles MD [address] [place] [address] PCP - [facility]12/31/23 Khoa Bowles MD [address] [place] [address] PCP - GeneralFamily Medicine12/27/24 Madison Wood MD [address] [place] [address] Referring PhysicianUrolog12/09/23 Tiffanie Enrique DPM [address] [place], [place] [phone] Referring PhysicianPodiatr12/09/23 Larissa Leavitt, CORDELL [address] [facility] [address] [place] [address] Registered NurseFamily Medicine02/13/25 Callie Mora MD [address] [place] [address] Referring PhysicianGeneral Surgery05/07/25 Skinny White MD [address] [place] [address] Referring PhysicianOphthalmology05/07/25 Shani Mohna DO [address] [phone] Referring PhysicianNeurology05/07/25 Team Status: Inactive Member Role Status Dates Shani Mohan DO Attending Provider Active Sta rt: July 24, 2025 End: July 24, 2025NON STAFFPrimary Care ProviderActiveStart: July 24, 2025 End: July 24, 2025Team MemberRelationshipSpecialtyStart DateEnd Date Khoa Bowles MD (Fax) PCP - GeneralFamily Medicine04/0806/2311 Khoa Bowles MD [address] [place] [address] (Fax) PCP - [facility]12/31/23 Khoa Bowles MD [address] [place] [address] (Fax) PCP - Generalmily Medicine12/27/24 Madison Wood MD [address] [place], [place] [phone] Referring PhysicianUrolog12/09/23 Tiffanie Enrique DPM [address] [place], [place] [phone] Referring PhysicianPodiatr12/09/23 Larissa Leavitt, CORDELL [address] [place] [phone] Registered NurseFamily Medicine02/13/25 Callie Mora MD [address] [place], [place] [address]christ[place], [place] [phone] Referring PhysicianGeneral Surgery05/07/25 Skinny White MD [address] [place] [address] Referring PhysicianOphthalmology05/07/25 Shani Mohan DO 703 [facility] [address] [place] [address] Referring PhysicianNeurology05/07/25Team MemberRelationshipSpecialtyStart DateEnd Date Khoa Bowles MD [address] [place] [address] PCP - [facility]12/31/23 Khoa Bowles MD [address] [place] [address] PCP - GeneralFamily Medicine12/27/24 Madison Wood MD [address] [place] [phone] Referring PhysicianUrolog12/09/23 Tiffanie Enrique DPM [address] [place] [address] Referring PhysicianPodiatr12/09/23 Larissa Leavitt, CORDELL [address] [facility] [address] [place] [address] Registered NurseFamily Medicine02/13/25 Callie Mora MD [address] [facility] [place] [address] Referring PhysicianGeneral Surgery05/07/25 Skinny White MD [address] [place] [address] Referring PhysicianOphthalmology05/07/25 Shani Mohan DO [address] [phone] Referring PhysicianNeurology05/07/25 (unrecognized sect ion and content) No Status Records FoundNo Status Records FoundNo Status Records FoundNo Status Records FoundNo Status Records FoundNo Status Records Found INFORMATION SOURCE (unrecogn ized section and content) DATE CREATED AUTHOR 02/14/2023 [facility] DATE CREATED AUTHOR AUTHOR'S ORGANIZ ATION 06/10/2025 [facility] DATE CREATED AUTHOR AUTHOR'S ORGANIZ ATION 07/08/2025 [facility] DATE CREATED AUTHOR AUTHOR'S ORGANIZ ATION 07/21/2025 [facility] DATE CREATED AUTHOR AUTHOR'S ORGANIZ ATION 07/26/2025 [facility] DATE CREATED AUTHOR AUTHOR'S ORGANIZ ATION 08/02/2025 [facility] Reason for Visit (unrecogniz ed section and content) ReasonComDuane Balderas is a 73 y.o. male. Established pt presents today for diabetic nail care. PCP: Dr. Jelena HERNANDEZ 11/04/2023, A1C: 7.6 (07/27/23),BS: 168 SS: 12).ReasonCommentsPolyradiculopathyReasonCommentsDM Foot CarePCP: Dr. Jelena HERNANDEZ 05/02/24, A1C: 6.6, BS: 131, SS: 12ReasonCommentsMed RefillReasonOnset DateCommentsCare Uauayhbjrpkl04/23/2024ReasonCommentsMed Change RequestReasonCommentsNail Yecenia Balderas is a 74 y.o. male who presents for DM Foot Care. Patient relates he has followed up with Dr. Cortez, had CT scan of Left ankle, Brace is being made. PCP: Dr. Jelena HERNANDEZ 10/31/2024, A1C: 6.6, BS: 131, SS: 12ReasonCommentsFollow-upReasonCommentsNail Yecenia Balderas is a 75 y.o. male who presents for Nail care. Patient relates he started Pain management with [facility] for left ankle. PCP: Dr. Jelena HERNANDEZ 10/31/2025 A1C: 6.6, BS: 143, SS: 12ReasonCommentsHypertensionHyperlipidemia DiabetesReasonCommentsAnnual ExamReasonCommentsNail Yecenia Balderas is a 75 y.o. male who presents for Nail care. Patient relates he started Pain ma nagement with [facility] for left ankle. PCP: Dr. Bowles 05/07/2025 A1C: 6.6, BS: 150, SS: 12.ReasonCommentsFollow-up FOR RECORDS PERTAINING TO PATIENTS WHO ARE [...] BE BASED ON THE PRIMARY CLINICAL RECORDS. [employer] provides no warranty or guarantee of the accuracy or completeness of information in this document.
--- NOTE | 2025-09-25 08:00 | NM_ITS ---
Patient Name: DUARTE ABRAHAM MR#: [id number] : 1950 Exam Date: 09/25/2025 Ordering Doctor: DR NELI BOWLES . RADIOLOGY REPORT PROCEDURE: NM [place]A PERF SPECT REST STR COMPARISON: None. INDICATIONS: VENTRICULAR TACHYCARDIA, SYNCOPE, RIGHT BUNDLE BRANCH BLOCK TECHNIQUE: Exam Description: Stress/Rest two day protocol gated SPECT Rest Imagin.4 mCi Tc-99m Cardiolite IV on 09/26/2025 Stress Imaging 24.5 mCi Tc-99m Cardiolite IV on 09/25/2025 Exercise Protocol: 0.4 mg Lexiscan given IV Heart Rate (bpm): Rest: 62 Max: 93 PMHR: 64 Blood Pressure: Rest: 124/77 Max: 124/77 Symptoms: Rest and peak stress ECG findings were pending and the EKG portion of the study was pending per attending physician [facility] . For more details please see separate cardiac stress test report. FINDINGS: QUALITY OF STUDY: Fair PERFUSION DEFECT: LOCATION: Lateral and inferior SIZE: Large SEVERITY: Moderate TYPE: Reversible WALL MOTION: Normal LV SIZE: 108 mL. TID / TCD: 1.1 LVEF: Calculated EF 64%. SUMMARY: Abnormal myocardial perfusion imaging study CONCLUSION: Abnormal nuclear myocardial perfusion stress images revealing evidence of lateral and inferior ischemia Normal left ventricular systolic function, ejection fraction 64% No transient ischemic dilatation, TID 1.1 EKG portion of the stress test is reported separately Dictated by: Niki Heredia MD on 09/26/2025 at 12:53 Approved by: Niki Heredia MD on 09/26/2025 at 12:56
[2025-09-25] MEDS: REGADENOSON 0.4 MG/5 ML SYRINGE IV (08:54)
--- NOTE | 2025-09-25 10:30 | PC.NURSE ---
Patient had lexiscan, tolerated well. No symptoms of Chest pain or SOB noted. Left stress lab asymptomatic for breakfast.
--- NOTE | 2025-09-25 16:52 | PM.STRESS ---
Stress Test Stress Test Allergies Allergy/AdvReac Type Severity Reaction Status Date / Time amoxicillin Allergy Intermediate Hives Verified 05/15/25 12:35 meperidine (From Demerol) AdvReac Chills Verified 05/15/25 12:35 Requesting physician: NELI BOWLES Procedure: Vasodilator stress test General Information: Reason for Stress Test: SVT and syncope Cardiac History and Risk Factors: Hypertension Resting 12 - Lead Electrocardiogram: Sinus rhythm with underlying right bundle branch block low amplitude EKG Stress Test: Protocol: Lexiscan Exercise Capacity: NA Blood Pressure Response: Baseline blood pressure was 124/77 mmHg and peak blood pressure was again noted to be 124/77 mmHg Rhythm: Sinus rhythm at 62 was resting heart rate that increased to 93 bpm achieving 64% age predicted. ST - Response: No evidence of ST segment changes Patient Response: Interpretation: 1. No evidence of ischemia noted on EKG 2. Baseline EKG reveals sinus rhythm with underlying bundle branch block with low amplitude EKG poor R wave progression. 3. No evidence of any arrhythmias seen 4. Nuclear portion of the perfusion study dictated separately
== END 2025-09-25 07:47 | disposition home or self-care (01) ==
LOC: CARD 07:48
PROVIDERS: PCP Family Medicine; Visit Provider Family Medicine
DX: I47.20 Ventricular tachycardia, unspecified (principal); I47.10 Supraventricular tachycardia, unspecified; R55 Syncope and collapse; I45.10 Unspecified right bundle-branch block; R94.39 Abnormal result of other cardiovascular function study
CPT/HCPCS: 78452; 93017; A9500; J2785

== ENCOUNTER 2025-10-11 09:02 | Outpatient (OUT) | payer MEDICARE, SELFPAY ==
--- OUTSIDE RECORDS SUMMARY | 2025-10-11 09:10 | XMS_ITS | CCD ---
Author Organization [facility] Care Team Providers Care Client Services Associate Name Role Phone Khoa Bowles Primary Care Provider [phone] Leopoldo Frye Attending Provider Elder Qiu Attending Provider [phone] KHOA BOWLES Primary Care Physician KHOA BOWLES [...] Unavailable WOOD ., DR WALLACE Admitting Unavailable NADA, DR TALI Jeffries Consulting Unavailable WOOD ., DR WALLACE Consulting Unavailable HEMEYER ., DR QUINTEROS Primary Care Unavailable WOOD ., DR WALLACE Attending Unavailable WOOD ., DR WALLACE Admitting Unavailable MD Khoa Bowles Primary Care Provider [phone] MARIZOL Hampton Attending Provider [phone] Khoa Bowles MD Primary Care Provider Madison Wood MD Unavailable Haja HARMON, Tiffanie Tariq Unavailable Khoa Bowles MD Unavailable Khoa Bowles MD Primary Care Provider Khoa Bowles MD Unavailable [phone] Khoa Bowles MD Unavailable Khoa Bowles MD Primary Care Provider Tree LANDA, Larissa Unavailable Tree LANDA, Larissa Unavailable [phone] Morgan LEVY, Callie Robertson Unavailable Skinny White MD Unavailable Shani Mohan DO Unavailable Khoa Bowles MD Primary Care Provider Madison Wood MD Attending Provider Madison WOOD [...] Care Unavailable Madison Wood MD Attending Provider [phone] Shani Mohan DO Attending Provider [phone] Khoa Bowles MD Primary Care Provider [phone] Madison Wood MD Unavailable Skinny White MD Unavailable Allergies Allergy ClassificationReported Allergen(s)Allergy TypeDate of OnsetReaction(s) FacilityOpioid Agonists (1 source)MeperidineDrug Zisvkze80-53-3643TmaahlxfyAjppzficwAultman [facility] (9 sources)Meperidine / Promethazine; Translations: [meperidine-promethazine] Drug AllergyUnknown (qualifier value)[facility] (20 sources)Meperidine; Translations: [meperidine]Drug Vksoahs93-28-6420Gpxnbg (finding)[facility] (2 sources)MeperidineDrug Ekwabdm24-63-4747XqdBlanch[facility] (2 sources)pioglitazoneDrug Rilpsxj69-05-8489ZpdBlanchard Valley [facility] (20 sources)MeperidineDrug Yhsnyiu61-58-7726[facility] (20 sources)pioglitazoneDrug Tdlekbl83-84-5607JwuakzzzUZFV [facility] (1 source)Doxycycline; Translations: [doxycycline]Drug AllergyFormerly [facility] (2 sources)AmoxicillinDrug Olqfnlf52-70-8851Xmwdzxr ReactionLutheran Hospital Repository (1 source)MeperidineDrug Tkyoabq40-99-5912BjcjzgsrzLutheran Hospital Repository (3 sources)AmoxicillinDrug Pmqqjgp44-15-0275[facility] Medications Current Medications MedicationDrug Class(es)DatesSig (Normalized)Sig (Original)allopurinol 300 mg oral tablet (20 sources)Xanthine Oxidase InhibitorStart: 11-09-2018 End: 62-71-3483zuop 1 tablet by mouth once daily at bedtimeAllopurinol 300 mg tablet Active 300 MG PO Daily at bedtime November 09, 2018 1:00am Complies with drug therapyaspirin 81 mg oral tablet (20 sources)Platelet Aggregation Inhibitor, Nonsteroidal Anti-inflammatory Drug Start: 66-11-9324hzei 1 mg by mouth once dailyaspirin 81 mg oral tablet mg tab(s), Oral, Daily, Refills(s) 0 Start Date: 09/18/19 Status: OrderedRepeat number: 1Start: 69-56-1365Qsozuol (Earnest Low Dose Aspirin) 81 mg Tablet,Delayed Release (Dr/Ec) Active 81 MG PO Every morningNovember 23, 2018 1:00am Complies with drug therapyBiotin (20 sources)Start: 44-32-9207svhhvc 10,000 mcg, Refills(s) 0 Start Date: 09/04/24 Status: Ordered Repeat number: 1Start: 04-05-0921clqhjb 10,000 mcg, Refills(s) 0 Start Date: 09/04/24 Status: OrderedStart: 92-24-5389xtnj 1 capsule by mouth twice dailyBiotin 10,000 mcg Capsule Active 49708 MCG PO Twice daily November 09, 2018 1:00am Complies with drug therapytake 1 tablet by mouth in the morning biotin 56736 MCG tablet Take 1 tablet by mouth in the morning and 1 tablet before bedtime. ActiveBlood Glucose Monitoring Suppl (Blood Glucose Monitoring 333) device (18 sources)Blood Glucose Monitoring Suppl (Blood Glucose Monitoring 333) device 1 Device continuously Accucheck ActiveCpap (Continuous Positive Airway Pressure) unit (1 source)Start: 01-73-6501Ucgs (Continuous Positive Airway Pressure) unit Active 0 .Route 1 July 24, 2025 12:00am New CPAP mask and supplies for 1 year dx BRETT to [facility] Has been able to use machine as was not sent new supplies dapagliflozin 10 mg oral tablet (20 sources)Sodium-Glucose Cotransporter 2 InhibitorStart: 05-02-2024 End: 56-06-0236hcbp 1 tablet by mouth once daily in the morningDapagliflozin Propanediol (Farxiga) 10 mg tablet Active 10 MG PO Every morning July 242:00am Complies with drug therapyStart: 11-04-2023 End: 31-53-0273nfrr 1 tablet by mouth in the morningdapagliflozin (Farxiga) 10 MG Indications: Diabetic nephropathy associated with type 2 diabetes mellitus (HCC) (CMS/HCC) Take 1 tablet (10 mg) by mouth in the morning. 90 tablet 0 11/04/2023 02/02/2024 Activedoxycycline monohydrate 100 mg oral capsule (20 sources)Tetracycline-class DrugStart: 11-04-2023 End: 72-48-2486rxwg 1 capsule by mouth once dailydoxycycline (Monodox) 100 MG capsule Indications: Chronic cellulitis Take 1 capsule (100 mg) by mouth Daily 90 capsule 3 05/03/2025 04/28/2026 ActiveStart: 74-41-8632slkn 1 mg by mouth twice dailydoxycycline hyclate 100 mg Cap mg cap(s), Oral, BID, Refills(s) 0 Start Date: 09/18/19 Status: Ordered Repeat number: 1Start: 83-51-5394bwei 1 tablet by mouth once daily in the morningDoxycycline Hyclate 100 mg tablet Active 100 MG PO Every morning November 09, 2018 1:00am Complies with drug therapyDULoxetine 60 mg delayed release oral capsule (20 sources)Serotonin and Norepinephrine Reuptake InhibitorStart: 61-41-8651mtch 1 capsule by mouth twice dailyDuloxetine 60 mg capsule,delayed release(DR/EC) Active 60 MG PO Twice daily July 24, 2025 12:00am Complies with drug therapyStart: 82-53-7202nmslfrohcz 30 mg oral delayed release capsule 30 mg = 1 cap(s), Refills(s) 0 Start Date: 04/02/25 Status: Ordered Repeat number: 1Start: 09-20-7485njcx 1 capsule by mouth in the morningDULoxetine (Cymbalta) [address] capsule Take 20 mg by mouth in the morning and 20 mg before bedtime.01/12/2025 Activefenofibrate 160 mg oral tablet (20 sources)Peroxisome Proliferator Receptor alpha AgonistStart: 05-02-2024 End: 50-24-1862qcez 1 tablet by mouth once dailyFenofibrate 160 mg tablet Active 160 MG PO Daily July 24, 2025 12:00am Complies with drug therapyStart: 11-04-2023 End: 35-13-4083opcf 1 tablet by mouth in the morningfenofibrate (Triglide) 160 MG tablet Indications: Mixed hyperlipidemia (CMS/HCC) Take 1 tablet (160mg) by mouth in the morning. 90 tablet 0 11/04/2023 02/02/2024 Activeferrous sulfate 325 mg oral tablet (20 sources)Start: 24-40-3465ctkw 1 tablet by mouth once dailyFerrous Sulfate (Iron (Ferrous Sulfate)) 325 mg (65 mg iron) Tablet Active 325 MG PO Daily November 09, 2018 1:00am Complies with drug therapygabapentin 300 mg oral capsule (20 sources)Anti-epileptic AgentStart: 07-21-2023 End: 52-76-8063cwim 1 capsule by mouth in the morninggabapentin (Neurontin) 300 MG capsule Indications: Polyradiculopathy Take 1 capsule (300 mg) by mouth in the morning and 1 capsule (300 mg) before bedtime. 180 capsule 11/06/2024 02/04/2025 ActiveStart: 11-09-2018 End: 20-55-8817sage 1 capsule by mouth three times dailyGabapentin 400 mg capsule Discontinued 400 MG PO Three times daily November 09, 2018 1:00am April 03, 2021 11:56amglipiZIDE er 10 mg 24 hr extended release oral tablet (9 sources)SulfonylureaStart: 92-29-4419hfmz 1 mg by mouth once dailyglipiZIDE 10 mg ER Tab mg tab(s), Oral, Daily, Refills(s) 0 Start Date: 09/16/20 Status: OrderedStart: 11-09-2018 End: 03-08-4636xztm 1 tablet by mouth twice dailyGlipizide 10 mg tablet Discontinued 10 MG PO Twice daily November 09, 2018 1:00am July 24, 2025 2:12pmhydroCHLOROthiazide 25 mg oral tablet (20 sources)Thiazide DiureticStart: 11-09-2018 End: 29-48-1131psiz 1 tablet by mouth once daily at bedtimeHydrochlorothiazide 25 mg tablet Active 25 MG PO Daily at bedtime November 09, 2018 1:00am Complies with drug therapyhydroCHLOROthiazide 12.5 mg / losartan potassium 100 mg oral tablet (20 sources)Thiazide Diuretic, Angiotensin 2 Receptor BlockerStart: 09-04-2024 hydrochlorothiazide-losartan 12.5 mg-100 mg oral tablet 1 tab(s), Refill(s) 0 Start Date: 09/04/24 Status: Ordered Repeat number: 1Start: 11-04-2023 End: 11-16-1009mlrl 1 tablet by mouth in the morninglosartan-hydroCHLOROthiazide (Hyzaar) 100-12.5 MG tablet Indications: Essential hypertension (CMS/HCC) Take 1 tablet by mouth in the morning. 90 tablet 0 11/04/2023 02/02/2024 ActiveStart: 11-09-2018 End: 89-41-8936mgho 1 tablet by mouth once daily in the morningLosartan- Hydrochlorothiazide 100-12.5 mg tablet Active 1 TAB PO Every morning November 09, 2018 1:00am Complies with drug therapy3 ml insulin glargine 100 unt/ml pen injector (20 sources)Insulin AnalogStart: 30-86-9477zxhxwr 10 [IU] by subcutaneous injection twice dailyInsulin Glargine (Basaglar Kwikpen U-100 Insulin) 100 unit/mL (3 mL) insulin pen Active 10 UNIT SUBCUT Twice daily July 24, 2025 12:00am Complies with drug therapyStart: 14-08-4909Chbrxnvv KwikPen 100 units/mL subcutaneous solution See Instructions, Refills(s) 0 Start Date: Status: Ordered Repeat number: 1Start: 06-14-2024 End: 03-34-9389strehde glargine (Basaglar KwikPen) 100 UNIT/ML pen Indications: Type 2 diabetes mellitus with hyperglycemia, without long-term current use of insulin (CMS/[facility]) Inject bid, sliding blood glucose scale with the coverage: 300, 20 units 3 mL 3 11/16/2024 ActiveStart: 12-18-3450scydixe glargine (Basaglar KwikPen) 100 UNIT/ML pen Indications: Type 2 diabetes mellitus with hyperglycemia, without long-term current use of insulin (CMS/HCC) Inject before supper, sliding blood glucose scale; 250=8u Strength: 100 UNIT/ML 3 mL 0 11/23/2023 ActiveLutein (20 sources)Start: 63-58-4687rhkzjw 20 mg, Refill(s) 0 Start Date: 09/04/24 Status: Ordered Repeat number: 1Start: 90-41-0832emdrmi 20 mg, Refill(s) 0 Start Date: 09/04/24 Status: OrderedStart: 74-34-3903pfbi 1 capsule by mouth once dailyLutein 20 mg Capsule Active 20 MG PO Daily November 09, 2018 1:00am Complies with drug therapyLutein 20 MG tablet 1 (one) time each day at the same time. Activemeclizine hydrochloride 25 mg oral tablet (5 sources)AntiemeticStart: 55-06-7159baqz 1 tablet by mouth three times daily as neededMeclizine 25 mg tablet Active 25 MG PO Three times daily as needed for Vertigo July 13, 2025 12:00am Complies with drug therapymetFORMIN hydrochloride 1000 mg oral tablet (20 sources)BiguanideStart: 05-02-2024 End: 36-73-2916pybt 1 tablet by mouth in the morningmetFORMIN (Glucophage) 1000 MG tablet Indications: Type 2 diabetes mellitus with diabetic microalbuminuria, with long-term current use of insulin ([facility]) Take 1 tablet (1,000 mg) by mouth in the morning and 1 tablet (1,000 mg) in the evening. Take with meals. 180 tablet 1 05/03/2025 10/30/2025 ActiveStart: 11-04-2023 End: 11-90-0387iifs 1 tablet by mouth in the morningmetFORMIN (Glucophage) 1000 MG tablet Indications: Type 2 diabetes mellitus with hyperglycemia, without long-term current use of insulin (CMS/HCC) Take 1 tablet (1,000 mg) by mouth in the morning and1 tablet (1,000 mg) in the evening. Take with meals. 180 tablet 0 11/04/2023 02/02/2024 ActiveStart: 58-77-2702ajuo 1 tablet by mouth twice daily Metformin 500 mg tablet Active 500 MG PO Twice daily November 09, 2018 1:00am Complies with drug therapymetoprolol tartrate 50 mg oral tablet (20 sources)beta-Adrenergic BlockerStart: 11-09-2018 End: 60-00-2225tzvz 1 tablet by mouth twice dailyMetoprolol Tartrate 50 mg tablet Active 50 MG PO Twice daily November 09, 2018 1:00am Complies withdrug fanyijw85 hr mirabegron 50 mg extended release oral tablet (1 source)beta3-Adrenergic AgonistStart: 09-04-2024 End: 25-07-5579hpvb 1 tablet by mouth once dailymirabegron 50 mg oral tablet, extended release 50 mg = 1 tab(s), Oral, Daily, X 30 day(s), # 30 tab(s), Refills(s) 11, Pharmacy: [facility]/pharmacy #[id number], 185, cm, 09/04/24 13:31:00 EST, Height/Length Dosing, 128, kg, 09/04/24 13:31:00 EST, Weight Dosing Start Date: 09/04/24 Stop Date: 08/30/25 Status: OrderedMisc. Devices misc (2 sources)Start: 74-57-8205Tfjx. Devices misc Indications: Lymphedema of both lower extremities 1 each continuously 1 each 07/19/2025 ActiveMultivitamin preparation (2 sources)Start: 58-39-8594dbyc 1 tablet by mouth once dailyMultivitamin Active 1 TAB PO Daily April 03, 2021 11:58amStart: 92-04-1831rcdz 1 tablet by mouth once dailyMultivitamin Active 1 TAB PO Daily April 03, 2021 12:00amsodium bicarbonate 650 mg oral tablet (20 sources)Start: 37-30-8090zptm 3 tablets by mouth twice dailysodium bicarbonate 650 mg Tab 1,950 mg = 3 tab(s), Oral, BID, # 180 tab(s), Refills(s) 11, Pharmacy: [facility]/pharmacy #[id number], 185, cm, 09/04/24 13:31:00 EST, Height/Length Dosing, 128, kg, 09/04/24 13:31:00 EST, Weight Dosing Start Date: 11/15/24 Status: Ordered Quantity: 180.0 Unit: tab(s) Repeat number: 12Start: 11-09-2018 End: 33-57-1945xsio 3 tablets by mouth twice dailysodium bicarbonate 650 mg Tab 1,950 mg = 3 tab(s), Oral, BID, # 180 tab(s), Refills(s) 11, Pharmacy: [facility]/pharmacy #[id number], 185, cm, 07/21/23 13:37:00 EDT, Height/Length Dosing, 138.2, kg, 07/21/23 13:37:00 EDT, Weight Dosing Start Date: 11/11/23 Status: Ordered Start: 52-92-4850dgqz 1950 mg by mouth twice dailySodium Bicarbonate Active 1950 MG PO Twice daily November 09, 2018 3:30pmsolifenacin succinate 10 mg oral tablet (20 sources)Cholinergic Muscarinic AntagonistStart: 61-32-5905wjhx 1 tablet by mouth once dailySolifenacin 10 mg tablet Active 10 MG PO Daily July 24, 2025 12:00am Complies with drug therapyspironolactone 25 mg oral tablet (20 sources)Aldosterone AntagonistStart: 69-21-9876Rawpuixdmwlzas 25 mg tablet Active 25 MG PO .COMPLEX July 24, 2025 12:00am 25 mg orally 2 inthe am and 1 at bed; Complies with drug therapyStart: 80-83-8391ufzkgyurukurkk (Aldactone) 25 MG tablet Indications: Lymphedema of both lower extremities 2 tabletsin Am and 1 tablet in PM 270 tablet 1 05/03/2025 ActiveStart: 09-04-2024 spironolactone 25 mg Tab See Instructions, Refills(s) 0 Start Date: 09/04/24 Status: Ordered Repeat number: 1Start: 05-02-2024 End: 64-90-1190ayenlrabzdnqno (Aldactone) 25 MG tablet Indications: Lymphedema of both lower extremities 2 tabletsin Am and 1 tablet in PM 270 tablet 1 10/31/2024 04/26/2025 Discontinued (Reorder)Start: 07-63-9546utqkasgwdytqme (Aldactone) 25 MG tablet Indications: Lymphedema of both lower extremities 2 tabletsin Am and 1 tablet in PM 270 tablet 0 11/04/2023 Activetamsulosin hydrochloride 0.4 mg oral capsule (20 sources)alpha-Adrenergic BlockerStart: 58-65-7349mhsp 1 capsule by mouth once daily at [...] oral capsule (5 sources)Cephalosporin AntibacterialStart: 11-24-2018 End: 45-04-9316tknf 1 capsule by mouth every eight hoursCephalexin (Keflex) 500 mg capsule Discontinued 500 MG PO Q8H November 24, 2018 1:00am April 03, 2021 11:58amcyclobenzaprine hydrochloride 10 mg oral tablet (9 sources)Muscle RelaxantStart: 04-17-2021 End: 90-23-1662emjl 1 tablet by mouth three times daily as needed for muscle spasmsCyclobenzaprine 10 mg tablet Discontinued 10 MG PO Three times daily as needed for back spasms 50 April 17, 2021 12:00am July 24, 2025 2:12pm Start: 11-24-2018 End: 47-70-0390bwis 1 tablet by mouth three times daily as needed for muscle spasmsCyclobenzaprine 10 mg tablet Discontinued 10 MG PO Three times daily as needed for back spasms 50 November 24, 2018 1:00am April 03, 2021 11:56am gemfibrozil 600 mg oral tablet (9 sources)Peroxisome Proliferator Receptor alpha AgonistStart: 11-09-2018 End: 70-90-0817pksq 1 tablet by mouth twice dailyGemfibrozil 600 mg tablet Discontinued 600 MG PO Twice daily November 09, 2018 1:00am July 24, 2025 2:08pmMultivitamin Tablet (3 sources)Start: 04-03-2021 End: 12-78-0058ndgy 1 tablet by mouth once dailyMultivitamin Tablet Discontinued 1 TAB PO Daily April 03, 2021 12:00am July 24, 2025 2:12pmStart: 98-56-9013izyd 1 tablet by mouth once dailyoxyCODONE hydrochloride 5 mg oral capsule (9 sources)Opioid AgonistStart: 04-17-2021 End: 23-07-9677ryri 5-10 mg by mouth every six hours as needed for painOxycodone 5 mg capsule Discontinued 5 - 10 MG PO Q6H as needed for pain 40 8 April 17, 2021 July 24, 2025 2:12pmStart: 11-24-2018 End: 54-76-3744pogg 1 tablet by mouth every six hours as needed for pain Oxycodone (Roxicodone) 5 mg Tablet Discontinued 1 - 2 TAB PO Q6H as needed for Pain 60 8 November 24, 2018 April 03, 2021 11:57ampredniSONE 10 mg oral tablet (9 sources)Start: 04-17-2021 End: 18-47-9131Gjyuwfmfvh 10 mg tablets,dose pack Discontinued 1 dose pk PO per package directions April 17, 2021 12:00am July 24, 2025 2:10pm take 4 tabs for 3 days then take 3 tabs for 3 days then take2 tabs for 3 days then take 1 tab for 3 daysStart: 39-87-4685Tzpgascgpe Active 1 dose pk PO per package directions April 17, 2021 12:00am take 4 tabs for 3 days then take 3 tabs for 3 days then take 2 tabs for 3 days then take 1 tab for 3 daysStart: 11-24-2018 End: 29-57-7600Acpsjggwvi Discontinued 1 dose pk PO per package directions November 24, 2018 1:57pm April 03, 2021 11:57am take 4 tabs for 3 days then take 3 tabs for 3 days then take 2 tabs for 3 days then take 1 tab for 3 days Start: 11-24-2018 End: 40-00-7949Dakekszxtl 10 mg tablets,dose pack Discontinued 1 dose pk PO per package directions November 24, 2018 1:00am April 03, 2021 11:57am take 4 tabs for 3 days then take 3 tabs for 3 days then take 2 tabs for 3 days then take 1 tab for 3 daysStart: 11-24-2018 End: 52-40-4310Iryaaocgvd Discontinued 1 dose pk PO per package directions November 24, 2018 1:00am April 03, 2021 11:57am take 4 tabs for 3 days then take 3 tabs for 3 days then take 2 tabs for 3 days then take 1 tab for 3 days zonisamide 25 mg oral capsule (5 sources)Anti-epileptic AgentStart: 11-09-2018 End: 76-88-4589eoxm 1 capsule by mouth twice dailyZonisamide 25 mg capsule Discontinued 50 MG PO Twice daily November 09, 2018 1:00am April 03, 2021 1 1:57amStart: 11-09-2018 End: 08-05-1343iogt 50 mg by mouth twice dailyZonisamide Discontinued 50 MG PO Twice daily November 09, 2018 3:30pm April 03, 2021 11:57am Problems Active Problems Problem ClassificationProblemDateDocumented DateEpisodic/ChronicAcquired foot deformities (1 source)Metatarsophalangeal joint stiff; Translations: [Other deformities of toe(s) (acquired), left foot]23-86-3169VhumooutVgluts of prostate (11 sources)Malignant neoplasm of prostate; Translations: [Malignant tumor of prostate]Onset: 50-77-7452RjkpkypBgvqbvo ulcer of skin (20 sources)Non-pressure chronic ulcer of other part of left foot limited to breakdown of skin; Translations: [Ulcer of other part of foot]Onset: 08-26-2021 Resolved: 190037-62-8223MukgeqzDrbgwebmlif and hemorrhagic disorders (20 sources)Thrombocytopenic disorder; Translations: [Thrombocytopenia, unspecified]Onset: 034087-47-7752DoqdbfwCepzlmdswl associated with dizziness or vertigo (4 sources)Vertigo; Translations: [Dizziness and giddiness]95-00-0584Vtdxwyby Conduction disorders (20 sources)Right bundle branch block; Translations: [Unspecified right bundle- branch block]Onset: 741418-59-6844PtxthqtQzvwbxiw mellitus with complications (20 sources)Type 2 diabetes mellitus with diabetic polyneuropathy; Translations: [Type 2 diabetes mellitus withother diabetic neurological complication]Onset: 07-19-2016 Resolved: 93-58-8941TfddrlkXtuebvknq of lipid metabolism (20 sources)Hyperlipidemia; Translations: [Hyperlipidemia, unspecified]Onset: 042312-73-4653DorogcgBttyfpedvxoudn and diverticulitis (20 sources)Diverticulosis of colon; Translations: [Diverticulosis of large intestine without perforation or abscess without bleeding]Onset: 08-10-2015 19-56-7643NrprczqA Codes: Fall (2 sources)Fall; Translations: [Unspecified fall, subsequent encounter] 54-42-8869WpehcuqaXlmesforr hypertension (20 sources)Hypertensive disorder; Translations: [Essential (primary) hypertension]Onset: 008894-04-4340PjfznmgQxaetslezua of prostate (20 sources)Benign prostatic hypertrophy with outflow obstruction; Translations: [Benign prostatic hyperplasia with lower urinary tract symptoms]Onset: 07-19-2016 Resolved: 30-42-4744YdfyyovLgqsgypcjove with complications and secondary hypertension (20 sources)Hypertensive left ventricular hypertrophy; Translations: [Hypertensive heart disease without heart failure]Onset: ChronicMycoses (5 sources)Onychomycosis; Translations: [Tinea unguium]82-44-3336AureyqljZtnv wounds of extremities (2 sources)Tear of skin; Translations: [Laceration without foreign body of unspecified upper arm, initial encounter]77-71-8146IkkwcyeoHwkej aftercare (1 source)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) use of anticoagulants; Translations: [CLEANING VALIDATION CONSULTANT CURRNT USE ANTICOAGULANTS]Onset: 51-52-4301FmdxcthhKqfcb aftercare (1 source)correction (current) use of oral hypoglycemic drugs; Translations: [[facility] USE ORAL HYPOGLYCEMIC DX]Onset: 88-98-1459NblzqojzBaaxj aftercare (1 source)Other fci (current) drug therapy; Translations: [OTH [facility] CURRENT DRUG THERAPY]Onset: 40-40-2984BujlqedfMjkul aftercare (1 source)Long-term current use of drug therapy; Translations: [Other fci (current) drug therapy]59-30-6259OwocinuhHuelw aftercare (6 sources)Patient encounter status; Translations: [Encounter for follow-up examination after completed treatment for conditions other than malignant neoplasm]75-08-7006LfmfzqhjOnlsk circulatory disease (2 sources)Bleeding; Translations: [Hemorrhage, not elsewhere classified] 11-56-7123DhdrmmlaQpfbe connective tissue disease (20 sources)Fibromyalgia; Translations: [Fibromyalgia]40-05-7540MiiqhqfrIhsnb diseases of bladder and urethra (4 sources)Detrusor overactivity; Translations: [Overactive bladder]Onset: 79-15-4497IlixdotWpdpp diseases of bladder and urethra (4 sources)Overactive bpamcev94-43-0239QtgxnxzHhuhj diseases of veins and lymphatics (20 sources)Lymphedema of bilateral lower limbs; Translations: [Lymphedema, not elsewhere classified]Onset: 406242-80-8866AjusenyEzxsk nervous system disorders (20 sources)Difficulty walking; Translations: [Difficulty in walking, not elsewhere classified]Onset: 913220-59-0067RvquypzXjojf nutritional; endocrine; and metabolic disorders (20 sources)Morbid obesity; Translations: [Morbid (severe) obesity due to excess calories]Onset: 463844-36-8612FzjaicjBamtb skin disorders (5 sources)Acquired keratoderma; Translations: [Acquired keratosis [keratoderma] palmaris et plantaris]89-53-9423XnrnlnrmSwras skin disorders (1 source)Callosity; Translations: [Corns and callosities]74-13-5081Sbwbiwzd Peripheral and visceral atherosclerosis (20 sources)Peripheral vascular disease; Translations: [Peripheral vascular disease, unspecified]Onset: 538752-58-5787FxgoyknGkxkyuja codes; unclassified (20 sources)Dependence on continuous positive airway pressure ventilation; Translations: [Dependence on other enabling machines and devices]Onset: 597263-30-5521WepabwlStsqqhal codes; unclassified (20 sources)Obstructive sleep apnea syndrome; Translations: [Obstructive sleep apnea (adult) (pediatric)]Onset: 514483-88-7302EdijhlrSnyngypd codes; unclassified (20 sources)Hypersomnia; Translations: [Hypersomnia, unspecified]Onset: 334091-85-4563YmpfoxfXqgtcwgo codes; unclassified (6 sources)Family history of cancer; Translations: [Family history of malignant neoplasm of prostate]Onset: 06-26-1348ZjgqbnalUghckxlq codes; unclassified (1 source)Family history of malignant neoplasm of prostate; Translations: [FAMILY HX MALIG NEOPLASM PROSTATE]Onset: 38-85-1308FvdbdckcHgbjvaff codes; unclassified (2 sources)Active advance directive (copy within chart) ; Translations: [Other specified health status]90-10-1546UluduzvaFbvufoz detachments; defects; vascular occlusion; and retinopathy (20 sources)Bilateral age-related nonexudative macular degeneration; Translations: [Nonexudative age-related macular degeneration, bilateral, stage unspecified]Onset: 07-19-2016 Resolved: 975141-71-9135AefnglqOhpekturmuq; intervertebral disc disorders; other back problems (20 sources)Spondylosis; Translations: [Other spondylosis with radiculopathy, thoracolumbar region]Onset: 682874-46-0049WgfaoruZmcwapytohh; intervertebral disc disorders; other back problems (20 sources)Spinal stenosis of lumbar region; Translations: [Spinal stenosis, lumbar region with neurogenic claudication]Onset: 960424-23-9434Ndxmelhr Comment on above:Problem List clean-up per request of Phys. EHR CmteSyncope (5 sources)Syncope; Translations: [Syncope and collapse]Onset: 07-13-2025 39-60-8972UgzpafuyInothoadtsli (1 source)discuss US resultsOnset: 07-26-2025 Past or Other Problems Problem ClassificationProblemDateDocumented DateEpisodic/ChronicAbdominal pain (20 sources)Flank pain; Translations: [Unspecified abdominal pain]Onset: 02-01-2014 Resolved: 525128-91-3872VturqkwxKemacrgq of urinary tract (20 sources)Kidney stone; Translations: [Calculus of kidney]Onset: 09-21-2022 EpisodicDeficiency and other anemia (20 sources)Iron deficiency anemia secondary to inadequate dietary iron intake; Translations: [Other iron deficiency anemias]Onset: 124554-80-3910Llufszys Diabetes mellitus without complication (20 sources)Diabetes mellitus; Translations: [Type 2 diabetes mellitus without complications]Onset: 01-20-2023 Resolved: 245088-61-7871EwaublnNrwlfvtehwewg symptoms and ill-defined conditions (20 sources)Nocturia; Translations: [Nocturia]Onset: 09-21-2022 Resolved: 69-93-8805FgiusbqhCogqj valve disorders (20 sources)Heart murmur; Translations: [Cardiac murmur, unspecified]Onset: 166898-40-6281TkmwywstEufijuh and fatigue (20 sources)Asthenia; Translations: [Weakness] Resolved: 384666-19-7585NgktthtxXlrp disorders (20 sources)Mood disordersOnset: 04-03-2024 Resolved: Other acquired deformities (20 sources)Lumbar spondylolisthesis; Translations: [Spondylolisthesis, lumbar region]Onset: 592683-71-8979FyvgpecjXecka aftercare (20 sources)Polypharmacy ; Translations: [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) drug therapy]Onset: 227341-21-5332JqqrmzixQjdje connective tissue disease (20 sources)H/O: arthrodesis; Translations: [Arthrodesis status]Onset: 920342-85-1782AttugduwPtdug connective tissue disease (20 sources)Myalgia caused by statin; Translations: [Myalgia, unspecified site] Onset: 232380-82-2993BwwqnqapWwedd connective tissue disease (1 source)Panniculitis, unspecified; Translations: [Panniculitis, unspecified] Onset: 10-83-0747NjugodwvBjpgn diseases of veins and lymphatics (20 sources)Lymphedema; Translations: [Lymphedema, not elsewhere classified] Onset: 07-19-2016 Resolved: 199742-04-8315IskeimrNpjml diseases of veins and lymphatics (1 source)Stasis dermatitis; Translations: [Venous insufficiency (chronic) (peripheral)]Onset: 60-82-027122211707-97-5932JanpehpxXmuyf diseases of veins and lymphatics (20 sources)Peripheral venous insufficiency; Translations: [Venous insufficiency (chronic) (peripheral)]Onset: 836908-42-2461AdxliduyZukkl diseases of veins and lymphatics (20 sources)Disorder of vein of lower extremity; Translations: [Venous insufficiency (chronic) (peripheral)]Onset: 853817-98-8081GuahvgsuHwbur lower respiratory disease (20 sources)Snoring; Translations: [Snoring]Onset: 786074-41-5078Ajuwauqm Other nervous system disorders (20 sources)Polyneuropathy; Translations: [Polyneuropathy, unspecified] Resolved: 460034-88-8002HnckkmqNcolu nutritional; endocrine; and metabolic disorders (20 sources)Body mass index 40+ - severely obese; Translations: [Body mass index (BMI) 40.0-44.9, adult]Onset: 02-01-2014 Resolved: 606445-79-8568MeprtbgNchnt nutritional; endocrine; and metabolic disorders (20 sources)Obese class II; Translations: [Obesity, unspecified]Onset: 10-02-2020 Resolved: 425388-79-0089UoyjculEkhhx nutritional; endocrine; and metabolic disorders (20 sources)Body mass index 30+ - obesity; Translations: [Obesity, unspecified] Onset: 07-26-2024 Resolved: 948155-98-9458GypssldBldkg nutritional; endocrine; and metabolic disorders (20 sources)Obesity; Translations: [Obesity, unspecified]Onset: 04-12-2023 Resolved: 407576-42-7738BciznwsMtayu nutritional; endocrine; and metabolic disorders (1 source)Hyperuricemia without signs of inflammatory arthritis and tophaceous disease; Translations: [HU W/OSIGNS IA AND TOPHACEOUS DZ]Onset: 05-08-2022 EpisodicOther nutritional; endocrine; and metabolic disorders (20 sources)Hyperuricemia; Translations: [Hyperuricemia without signs of inflammatory arthritis and tophaceous disease]Onset: EpisodicOther screening for suspected conditions (not mental disorders or infectious disease) (20 sources)Raised prostate specific antigen; Translations: [Elevated prostate specific antigen [PSA]]Onset: 81-09-8851AeutanwaLsaznvuny; thrombophlebitis and thromboembolism (20 sources)Deep venous thrombosis of lower extremity; Translations: [Personal history of other venous thrombosis and embolism]Onset: 01-20-2023 Resolved: 230617-41-6499NqagxlfuBwhwtzgs codes; unclassified (20 sources)Family history of prostate cancer; Translations: [Family history of malignant neoplasm of prostate]Onset: 07-28-2023 Resolved: 985828-97-5177ZmwiazhuHwil and subcutaneous tissue infections (20 sources)Cellulitis; Translations: [Cellulitis, unspecified]Onset: 04-12-2023 59-14-8939XvrnibomTulfaqwk veins of lower extremity (1 source)Varicose veins of bilateral lower extremities with pain; Translations: [Varicose veins of bilaterallower extremities with pain]Onset: 03-09-2024 Episodic Results Test NameValueInterpretationReference RangeFacilityAlanine aminotransferase [Enzymatic activity/volume] in Serum or PlasmaOrdered By: Madison Drew on 39-10-2506SYQ [Catalytic activity/Vol]36 U/LNormal7-52Lutheran HospitalComment on above:Performed By: #### CBC, CMP #### [facility] [address] [place] [address] USAAlbumin [Mass/volume] in Serum or Plasma by Bromocresol green (BCG) dye binding methoOrdered By: Madison Drew on 66-31-5629Jbhmkvi BCG dye [Mass/Vol]4.0 g/dL3.5-5.7FNorwalk Memorial HospitalAlkaline phosphatase [Enzymatic activity/volume] in Serum or PlasmaOrdered By: Madison Drew on 52-83-8340QNR [Catalytic activity/Vol]34 U/RSuyglp66-973IzsjgwzshLutheran HospitalComment on above:Performed By: #### CBC, CMP #### [facility] [address] [place] [id number] USAAppearance of UrineOrdered By: Madison Drew on 07-13-2025 Appearance (U)ClearNormalClearLutheran HospitalComment on above: Order Comment: Name Collection Type:: Clean-Voided MidstreamPerformed By: #### UA #### [place] [address] USAAspartate aminotransferase [Enzymatic activity/volume] in Serum or PlasmaOrdered By: Madison Drew on 34-75-9551FXF [Catalytic activity/Vol]34 U/KPqudup58-24EfydiofftLutheran HospitalComment on above: Performed By: #### CBC, CMP #### [place] [address] USABasophils [#/volume] in Blood by Automated countOrdered By: Madison Drew on 70-60-0532Thzniqzyq (Bld) [#/Vol]0.0 10*3/uLNormal0.0-0.2 Luther[facility] HospitalComment on above:Result Comment: PERFORMED BY: [place] [address] PATHOLOGIST WOOL FLEECE SORTER DORITA KOROMA M.D.Performed By: #### CBC, CMP #### [place] [address] USABasophils/100 leukocytes in Blood by Automated count Ordered By: Madison Drew on 38-65-4985Xieewfhwl/100 WBC (Bld)0.9 %Normal. Lutheran HospitalComment on above:Performed By: #### CBC, CMP #### [place] [address] USABilirubin Test strip Ql (U)Ordered By: Madison Drew on 77-08-5092Tyjfobydm Ql (U)NegativeNegativeLutheran Hospital Bilirubin.total [Mass/volume] in Serum or PlasmaOrdered By: Madison Drew on 29-46-8185Ewtwlbbmm [Mass/Vol]0.7 mg/dLNormal0.3-1.0Lutheran HospitalComment on above:Performed By: #### CBC, CMP #### [place] [address] USACT angio neckon 24-63-3673CQ angio [facility] [place] [address] [place] [address] CT Scan Report Signed Patient: Manuel Balderas MR#: [id number] : 1950 Acct:[id number] Age/Sex: 75 / M ADM Date: 07/13/25 Loc: ER Room: Type: PRE ER Attending Dr: Copies to: Madison Drew DO Ordering Provider: Madison Drew DO Date of Service: 07/13/25 CT/CT angio neck: vertigo ([id number]) CT/CT angio head: vertigo CT angiogram head [...] are patent with mild plaque. origin right PRICE CHECKER. origin left PRICE CHECKER with small contribution from the basilar artery. [...] Sandoval M.D. 07/13/2025 4:10 PM Dictation Location: [place] [address] Transcribed By: RHONDA 07/13/25 1610 Dictated By: Marty Sandoval MD 07/13/25 1602 Signed By: 07/13/25 1610MirlandeNovant Health/NHRMC Physician GroupCT head/brain wo conon 17-78-8061OS head/brain wo [facility] [place] [address] [place] [address] CT Scan Report Signed Patient: Manuel Balderas MR#: [id number] : 1950 Acct:[id number] Age/Sex: 75 / M ADM Date: 07/13/25 [...] Sandoval M.D. 07/13/2025 3:51 PM Dictation Location: [place] [address] Transcribed By: [facility] 07/13/25 1551 Dictated By: Marty Sandoval MD 07/13/25 1548 Signed By: 07/13/25 1551[facility] Physician GroupCalcium [Mass/volume] in Serum or PlasmaOrdered By: Madison Drew on 18-31-1986Lfxcixd [Mass/Vol]10.3 mg/dL Normal8.6-10.3FNorwalk Memorial HospitalComment on above:Performed By: #### CBC, CMP #### [facility] [address] [place] [address] USACapillary blood glucose measurement by glucometer (mass/volume)Ordered By: Madison Drew on 16-62-5084Ffdwzsc [Mass/Vol]120 mg/dL NormalLutheran HospitalComment on above:Random Glucose Reference Range is dependent [...] the diagnosis of Diabetes Mellitus. PERFORMED BY: [place] [address] PATHOLOGIST WOOL FLEECE SORTER DORITA KOROMA M.D.Performed By: #### GLULS #### Point of Care testing ,Carbon dioxide, total [Moles/volume] in Serum or PlasmaOrdered By: Madison Drew on 52-50-0871HA6 [Moles/Vol]21.6 mmol/XZgmsax80.0-31.0Lutheran HospitalComment on above:Performed By: #### CBC, CMP #### [place] [address] USAChloride [Moles/volume] in Serum or PlasmaOrdered By: Madison Drew on 90-24-0965Lmksbecr [Moles/Vol]106 mmol/TPtyuyo83-405LbogxfyinLutheran HospitalComment on above:Performed By: #### CBC, CMP #### [place] [id number] USAColor of Urine by AutoOrdered By: Madison Drew on 07-79-1925Jrrlu (U)Light-yellowNormalYCleveland Clinic Mercy Hospital Comment on above:Order Comment: Name Collection Type:: Clean-Voided Midstream Performed By: #### UA #### [place] [address] USAComplete Blood Count Auto Diffon 04-93-6082Yagi Corpuscular HGB Conc33.2 g/nSOlvofd51.5-35.6The [facility] Physician GroupComment on above:Performed By: #### CBC, CMP #### [place] [address] USAMonocytes/100 WBC (Bld)20.41 %High0.00-20.00The [facility] Hospital Physician GroupComment on above:Result Comment: For adults in ED, MDW > 20.0 may be associated with a higher risk of sepsis during the first 12 hrs of hospital admissionPerformed By: #### CBC, CMP #### [place] [address] USANRBC%0.2 /100{WBC}Normal0-0.5The [facility] Comment on above:Performed By: #### CBC, CMP #### [place] [address] USAWhite Blood Count5.1 [CFU]/mLNormal4.1-10.5The [facility] Hospital Physician GroupComment on above:Performed By: #### CBC, CMP #### [place] [address] USAComprehensive Metabolic Panelon 80-84-2768Zzwmifd [Mass/Vol]4.0 g/dLNormal3.5-5.7The [facility] Hospital Physician GroupComment on above: Performed By: #### CBC, CMP #### [place] [address] USACreatinine Clr Calc Maoptbkx51.72NormalThe [facility] Hospital Physician GroupComment on above:Result Comment: PERFORMED BY: [place] [address] PATHOLOGIST WOOL FLEECE SORTER DORITA KOROMA M.D.Performed By: #### CBC, CMP #### [place] [address] USAGFR/1.73 sq M.predicted MDRD (S/P/Bld) [Vol rate/Area] mL/min/{1.73_m2}NormalThe [facility] Hospital Physician GroupComment on above:Performed By: #### CBC, CMP #### [address] [place] [address] USACreatinine [Mass/volume] in Serum or PlasmaOrdered By: Madison Drew on 74-07-6587Hzjvaysluc [Mass/Vol]1.16 mg/dLNormal0.70-1.30 Lutheran HospitalComment on above:Performed By: #### CBC, CMP #### [facility] [address] [place], [place] [address] USAECG 12 lead ECGon 68-24-0974SFJ 12 lead [facility]GCLEVELAND [facility]IN[facility] [place] [address] [place], [place] [address] Electrocardiograph Report Signed Patient: Manuel Balderas MR#: [id number] : 1950 Acct:[id number] Age/Sex: 75 / M ADM Date: 07/13/25 [...] By: MUS Signed By Madison Drew DO 1509NochiquisHCA Florida [facility]cal[facility] Hospital Physician GroupEosinophils [#/volume] in Blood by Automated countOrdered By: Madison Drew on 73-38-9727Ivzjjgynrnz (Bld) [#/Vol] 0.2 10*3/uLNormal0.0-0.45Lutheran HospitalComment on above: Performed By: #### CBC, CMP #### [facility] [address] [place] [id number] USAEosinophils/100 leukocytes in Blood by Automated count Ordered By: Madison Myerssusanna on 36-70-9768Vmdzvsojdvv/100 WBC (Bld)3.6 %Normal. Lutheran HospitalComment on above:Performed By: #### CBC, CMP #### [facility] [address] [place] [address] USAErythrocyte distribution width [Ratio] by Automated count Ordered By: Madisonstuart Drew on 14-61-1069Pwolvsvuwrk distribution width (RBC) [Ratio]15.5 %High12.0-14.8Lutheran HospitalComment on above: Performed By: #### CBC, CMP #### [facility] [address] [place] [address] USAErythrocytes [#/volume] in Blood by Automated countOrdered By: Madison Drew on 35-51-7522YDS (Bld) [#/Vol]4.16 10*6/uLNormal3.90-5.60 Lutheran HospitalComment on above:Performed By: #### CBC, CMP #### [facility] [address] [place] [address] USAGlomerular filtration rate [Volume Rate/Area] in Serum, Plasma or Blood by CreatinineOrdered By: Madison Drew on 42-54-4784Jzpglqddcr filtration rate [Volume Rate/Area] in Serum, Plasma or Blood by Creatinine> 60.0 mL/MinLutheran HospitalGlucose [Mass/volume] in Serum or Plasma Ordered By: Madison Drew on 92-37-3863Tvvlqqa [Mass/Vol]135 mg/jIGloj74-634 Lutheran HospitalComment on above:ADA recommended reference rangeRandom Glucose [...] reference rangePerformed By: #### CBC, CMP #### [facility] [address] [place] [address] USAGlucose [Mass/volume] in Urine by Test stripOrdered By: Madison Drew on 36-02-3769Amznlnh Test strip (U) [Mass/Vol]>=1000 mg/dLHigh NormalLutheran HospitalHematocrit [Volume Fraction] of Blood by Automated countOrdered By: Madison Drew on 20-96-5766Ogpvjllkph (Bld) [Volume fraction]39.8 %Mttaiq24.8-50.0Lutheran HospitalComment on above: Performed By: #### CBC, CMP #### [facility] [address] [place] [id number] USAHemoglobin Test strip Ql (U)Ordered By: Madison Drew on 52-01-2048Rpdejmjota Ql (U)NegativeNegGerman Hospital Hemoglobin [Mass/volume] in BloodOrdered By: Madison Drew on 07-13-2025 Hemoglobin (Bld) [Mass/Vol]13.2 g/oJYbkapo36.0-17.0Lutheran HospitalComment on above:Performed By: #### CBC, CMP #### [facility] [address] [place] [id number] USAKetones [Presence] in Urine by Test stripOrdered By: Madison Drew on 88-98-3239Lezyapa Ql (U)NegativeNormalBarney Children's Medical CenterComment on above:Order Comment: Name Collection Type:: Clean- Voided MidstreamPerformed By: #### UA #### [facility] [address] [place] [id number] USALeukocyte esterase [Presence] in Urine by Test strip Ordered By: Madison Drew on 98-45-3573Spzptwwhu esterase Test strip Ql (U) NegativeNormalBarney Children's Medical CenterComment on above:Order Comment: Name Collection Type:: Clean-Voided MidstreamPerformed By: #### UA #### [facility] [address] [place] [id number] USALeukocytes [#/volume] corrected for nucleated erythrocytes in Blood by Automated counOrdered By: Madison Drew on 09-24-1042OHC corrected for nucl RBC Auto (Bld) [#/Vol]5.1 10*3/uL4.1-10.5FNorwalk Memorial HospitalLeukocytes [#/volume] in Blood by Automated countOrdered By: Madison Drew on 35-70-6664XCI (Bld) [#/Vol]5.1 10*3/uLNormal4.1-10.5FNorwalk Memorial HospitalComment on above:Performed By: #### CBC, CMP #### [facility] [address] [place] [address] USALymphocytes [#/volume] in Blood by Automated countOrdered By: Madison Drew on 71-60-3848Psfhsasgfsq (Bld) [#/Vol]0.7 10*3/uLLow1.00-4.8 Luther[facility] HospitalComment on above:Performed By: #### CBC, CMP #### [facility] [address] [place] [id number] USALymphocytes/100 leukocytes in Blood by Automated count Ordered By: Madison Drew on 90-47-6244Wfhqlvsdzik/100 WBC (Bld)14.5 %Normal. Lutheran HospitalComment on above:Performed By: #### CBC, CMP #### [facility] [address] [place], [place] [address] [facility] [Entitic mass] by Automated countOrdered By: Madison Drew on 92-63-5662RVR (RBC) [Entitic mass]31.7 lxJzewlp97.5-35.2FNorwalk Memorial HospitalComment on above:Performed By: #### CBC, CMP #### [facility] [address] [place], [place] [address] USAHC Auto (RBC) [Mass/Vol]Ordered By: Madison Drew on 08-69-3503IPOZ (RBC) [Mass/Vol]33.2 g/dL32.5-35.6FNorwalk Memorial HospitalMCV [Entitic volume] by Automated countOrdered By: Madison Drew on 52-27-7390RLH (RBC) [Entitic vol]95.5 qMGcevds62.5-101Lutheran HospitalComment on above:Performed By: #### CBC, CMP #### [place] [address] USAMonocyte distribution width [Entitic volume] in Blood by AutomatedOrdered By: Madisonstuart Drew on 98-73-3211Kiwxqmfh distribution width Auto (Bld) [Entitic vol]20.41 %High0.00-20.00Lutheran HospitalComment on above:For adults in ED, MDW > 20.0 may be associated with a higher risk of sepsis during the first 12 hrs of hospital admissionMonocytes [#/volume] in Blood by Automated countOrdered By: Madison Drew on 04-51-7297Lvvpghdgm (Bld) [#/Vol]0.5 10*3/uLNormal0.0-0.8Lutheran HospitalComment on above:Performed By: #### CBC, CMP #### [place] [id number] USAMonocytes/100 leukocytes in Blood by Automated count Ordered By: Madison Drew on 19-92-5421Koudstpuu/100 WBC (Bld)10.8 %Normal. Lutheran HospitalComment on above:Performed By: #### CBC, CMP #### [place] [address] USANeutrophils [#/volume] in Blood by Automated countOrdered By: Madison Drew on 62-71-7923Vrknsyreqlx (Bld) [#/Vol]3.6 10*3/uLNormal1.8-7.7 Luther[facility] HospitalComment on above:Performed By: #### CBC, CMP #### [address] [address] USANeutrophils/100 leukocytes in Blood by Automated count Ordered By: Madison Drew on 02-73-5326Exiprsqwlzf/100 WBC (Bld)70.2 %Normal. Lutheran HospitalComment on above:Performed By: #### CBC, CMP #### [place] [address] USANitrite Test strip Ql (U)Ordered By: Madison Drew on 91-34-3763Mtouihf Ql (U)NegativeNegativeLutheran HospitalNo Panel InformationOrdered By: Madison Drew on 97-00-9704Zwcbvuyb Creatinine Clearance (Chem77.72Lutheran HospitalNucleated erythrocytes [Presence] in Blood by Automated countOrdered By: Madison Drew on 07-13-2025 Nucleated RBC Auto Ql (Bld)0.2 /100{WBC}0-0.5FNorwalk Memorial Hospital Platelet mean volume [Entitic volume] in Blood by Automated countOrdered By: Madison Drew on 20-94-7083Jduwtubh mean volume (Bld) [Entitic vol]8.4 fLNormal 6.6-10.1FNorwalk Memorial HospitalComment on above:Performed By: #### CBC, CMP #### [facility] [address] [place] [address] USAPlatelets [#/volume] in Blood by Automated countOrdered By: Madison Drew on 47-78-4463Nhkdbcbfk (Bld) [#/Vol]116 10*3/kJIvu137-768 Luther[facility] HospitalComment on above:Performed By: #### CBC, CMP #### [place] [address] USAPotassium [Moles/volume] in Serum or PlasmaOrdered By: Madison Drew on 53-52-1887Lrlguiocr [Moles/Vol]4.3 mmol/LNormal3.5-5.1FNorwalk Memorial HospitalComment on above:Performed By: #### CBC, CMP #### [place] [address] USAProtein Test strip (U) [Mass/Vol]Ordered By: Madison Drew on 82-86-5744Kaqjcok (U) [Mass/Vol]NegativeNegativeLutheran HospitalProtein [Mass/volume] in Serum or PlasmaOrdered By: Madison Drew on 07-02-7232Pygveon [Mass/Vol]6.2 g/dLLow6.4-8.9[facility] Comment on above:Performed By: #### CBC, CMP #### [facility] [address] [place] [address] USASerum globulin measurement by calculation (mass/volume) Ordered By: Madison Drew on 61-81-2154Hubpfoqh (S) [Mass/Vol]2.2 g/dLNormal Luther[facility] HospitalComment on above:Performed By: #### CBC, CMP #### [place] [address] USASerum or plasma albumin/globulin mass ratioOrdered By: Madison Drew on 46-38-6950Mzqyzem/Globulin [Mass ratio]1.8 {ratio}Normal Luther[facility] HospitalComment on above:Performed By: #### CBC, CMP #### [place] [address] USASerum or plasma anion gap determinationOrdered By: Madison Drew on 65-74-9941Crwmu gap [Moles/Vol]15.7 mmol/LHigh6.0-15.0Lutheran HospitalComment on above:Performed By: #### CBC, CMP #### [place] [address] USASodium [Moles/volume] in Serum or PlasmaOrdered By: Madison Drew on 41-90-5990Cerpka [Moles/Vol]139 mmol/QSktosl281-819FvqurrvluLutheran HospitalComment on above:Performed By: #### CBC, CMP #### [place] [address] USASpecific gravity Test strip (U) [Rel density]Ordered By: Madison Drew on 04-71-3961Kgiowkka gravity (U) [Rel density]1.0141.001-1.030 Lutheran HospitalUrea nitrogen [Mass/volume] in Serum or Plasma Ordered By: Madison Drwe on 54-79-1207Mbhq nitrogen [Mass/Vol]38 mg/dLHigh7-25 Luther[facility] HospitalComment on above:Performed By: #### CBC, CMP #### [place] [address] USAUrinalysison 66-31-4134Vtvszvuhe,UrineNegativeNormal NegativeThe [facility] Hospital Physician GroupComment on above:Order Comment: Name Collection Type:: Clean-Voided MidstreamPerformed By: #### UA #### [place] [address] USAGlucose Ql (U)>=NormalNormSelect Medical OhioHealth Rehabilitation Hospitale [facility] Comment on above:Order Comment: Name Collection Type:: Clean-Voided Midstream Performed By: #### UA #### [place] [address] USANitrite,UrineNegativeNormalNegativeMorton Plant Hospital Physician GroupComment on above:Order Comment: Name Collection Type:: Clean-Voided MidstreamPerformed By: #### UA #### [place] [address] USAOccult Blood,UrineNegativeNormalNegativeThe [facility] Physician GroupComment on above:Order Comment: Name Collection Type:: Clean- Voided MidstreamResult Comment: PERFORMED BY: [place] [address] PATHOLOGIST WOOL FLEECE SORTER DORITA KOROMA M.D.Performed By: #### UA #### [place] [address] USAProtein,UrineNegativeNormalNegativeThe [facility] Physician GroupComment on above:Order Comment: Name Collection Type:: Clean-Voided MidstreamPerformed By: #### UA #### [place] [address] USASpecificy [place],Urine1.569Ytixiw3.001-1.030The [facility] Physician GroupComment on above:Order Comment: Name Collection Type:: Clean- Voided MidstreamPerformed By: #### UA #### [place] [address] USAUrobilinogen,UrineNormalNormalNormalThe [facility] Physician GroupComment on above:Order Comment: Name Collection Type:: Clean- Voided MidstreamPerformed By: #### UA #### [facility] [address] [place] [address] USAUrobilinogen Test strip (U) [Mass/Vol]Ordered By: Madison Drew on 53-86-5529Kjkawujdeebi (U) [Mass/Vol]Normal mg/dLNormOhio Valley HospitalpH of Urine by Test stripOrdered By: Madison Drew on 29-83-4426mB (U)8.0 [pH]Normal5.0-9.0Lutheran HospitalComment on above:Order Comment: Name Collection Type:: Clean-Voided MidstreamPerformed By: #### UA #### [place] [id number] USANo Panel InformationOrdered By: Madison Wood on 08-18-7924Lhpwtyqwcbsgc Pathology TestSee commentLutheran HospitalComment on above:See report. Scanned copy available in EMR.Pathology Request for Lab Corpon 13-01-8177Rcckuqbgb Request for Lab CorpAdventHealth Oviedo ER Physician GroupComment on above:Order Comment: PROSTATE BIOPSYResult Comment: See report. Scanned copy available in EMR. PERFORMED BY: [place] [id number] PATHOLOGIST WOOL FLEECE SORTER DORITA KOROMA M.D.Performed By: #### PATH TO [facility] #### [place] [id number] USAMLR HEMOGLOBIN A1Con 97-08-4880Yahchad [Mass/Vol]151 mg/dL [facility] BransonHbA1c (Bld) [Mass fraction]6.9 %High4.5 - 6.2 %[facility] Comment on above:ADA RECOMMENDED LIMIT 4.0 - 6.0 ADA THERAPEUTIC TARGET < 7.0 ACTION SUGGESTED > 7.0 No Panel Informationon 48-17-3398Xubuirbqzpiame and review of laboratory results AbnormalNOMS HealthcareCLINISYNCNOMS HealthcareTBH MICROALB CREAT RATIO RANDOMon 77-51-3681IBVOKIIQQC URINE CSAAGD45.26 mg/dL20.00 - 300.00 mg/dLNOMS Healthcare MICROALBUM CREATININE RATIO UR57.4 mg/gHigh0.0 - 29.9 mg/gNOMS HealthcareComment on above:NO MICROALBUMINURIA 0-29 MG/G CLINICAL MICROALBUMINURIA 30-300 MG/G MACROALBUMINURIA >300 MG/G MICROALBUMIN URINE RANDOM3 mg/dLNINF - 30.0 mg/dLNOMI HealthcareISTAT XRay CREon 63-00-7576UUWJN GFR57.289NoNovant Health/NHRMC Physician GroupComment on above: Result Comment: PERFORMED BY: [place] [address] PATHOLOGIST WOOL FLEECE SORTER DORITA KOROMA M.D.Performed By: #### ISCRE #### [place] [address] USAMR prostate wo/w conon 90-07-8080KG prostate wo/w con [facility] [place] [address] [place] [address] MRI Report Signed Patient: Manuel Balderas MR#: [id number] : 1950 Acct:[id number] Age/Sex: 75 / M ADM Date: 04/23/25 Loc: Room: Type: [facility] Attending Dr: Madison Wood MD Copies to: [...] Jr., DPatricia 04/23/2025 4:52 PM Dictation Location: [place] [address] Transcribed By: [facility] 04/23/25 165 Dictated By: Rickie Cornejo Jr, DO 04/23/25 1645 Signed By: 04/23/25 1652[facility] Physician GroupNo Panel InformationOrdered By: Madison Wood on 96-97-3686Eiafmpj Estimated GFR (eGFR)57.289Lutheran HospitalWhole blood creatinine measurementOrdered By: Madison Wood on 99-88-1184Gwufnsnfck [Mass/Vol]1.3 mg/dLNormal0.6-1.3FNorwalk Memorial HospitalComment on above:ER/ESD physician is notified/shown all ISTAT results.Critical values may be confirmed by laboratorytesting ifdeemed necessary by ER attending doctor.Result Comment: ER/ESD physician is notified/shown all ISTAT results. Critical values may be confirmed by laboratory testing if deemed necessary by ER attending doctor.Performed By: #### ISCRE #### [place] [address] USAAmbulatory Visit Summaryon 47-78-9097Yghhawqzdf Visit SummaryAmbulatory Visit Summary MANUEL BALDERAS :1950 [...] Where: [facility] [address] [place] [address] [phone] Medications What How Much When Why Instructions [...] choosing us (more content not included)...Normal [facility] CenterUrology Office/Clinic Noteon 52-31-0899Enodhcc Office/Clinic NoteUrology Office/Clinic Note Chief Complaint Elevated [...] Urology [address] [place] [phone] Additional Instructions: schedule prostate MRI Patient Education [...] basket extraction of u (more content not included)...[facility] HospitalComment on above:Result Comment: Electronically Signed By: Madison WOOD MD\.br\Date and Time Signed: 04/02/25 13:14 EDT\.br\Electronically Co-Signed By: Kenyatta Mosher\.br\Date and Time Co-Signed: 04/02/25 13:13 EDTMHPT PSA, DIAGNOSTICon 03-15-2025 Interpretation and review of laboratory resultsAbnormalNOMS HealthcarePROSTATE SPECIFIC ANTIGEN DX5.8 ng/mLHighNINF - 4.00 ng/mLNOMS HealthcareCLINISYNCNOMS HealthcareAmbulatory Visit Summaryon 35-95-0309Jgkvgszlmm Visit Summary Ambulatory Visit Summary MANUEL BALDERAS [...] Madison WOOD MD Where: [facility] [address] [place] [address]- You Need to Schedule the Following Appointments Follow Up with Madison WOOD MD, URL When: Comments: 3 mos w/ PVR and PSA Where: [facility] [address], [facility] [place] [address] [phone] Medications What How Much When Why Instructions New solifenacin (Vesicare 10 mg Tab) 1 Tablets By Mouth Every day OAB (overactive bladder) Refills:11 Pickup at [facility] Unchanged allopurinol (allopurinol 300 mg Tab) [...] physician if questions or concerns Pharmacy Information [facility]: [address] [place] [phone] What How Much When Comments Stop Taking mirabegron (mirabegron 50 mg oral tablet, extended release) 1 Tablets By M (more content not included)...[facility] Ambulatory Visit SummaryAmbulatory Visit Summary MANUEL [...] Madison WOOD MD Where: [facility] [address] [place] [address] You Need to Schedule the Following Appointments Follow Up with Madison WOOD MD, URL When: Comments: 3 mos w/ PVR and PSA Where: [facility] [address], [place] [address]- [phone] Medications What How Much When Why Instructions New solifenacin (Vesicare 10 mg Tab) 1 Tablets By Mouth Every day OAB (overactive bladder) Refills:11 Pickup at [facility] Unchanged allopurinol (allopurinol 300 mg Tab) [...] physician if questions or concerns Pharmacy Information [facility]: [address] [place] [phone] What How Much When Comments Stop Taking mirabegron (mirabegron 50 mg oral tablet, extended release) 1 Tablets By M (more content not included)...[facility] Urology Office/Clinic Noteon 88-06-1531Dtwytzd Office/Clinic NoteUrology Office/Clinic Note Chief Complaint 3 [...] 10mg qd. Recommended GoodRx. Rx sent to [facility]3]ue. -F/u in 3 mos w/ PVR 2. [...] [facility] [address], [place] [phone] Additional Instructions: 3 mos w/ PVR and [...] nephrolithotomy (02/21/2014), Percutaneous nephroli (more content not included)...[facility] HospitalComment on above:Result Comment: Electronically Signed By: Madison WOOD MD\.br\Date and Time Signed: 12/18/24 11:36 EST\.br\Electronically Co-Signed By: Kenyatta Mosher\.br\Date and Time Co-Signed: 12/18/24 11:33 ESTCT ANKLE LT WO CON [place] [address] [place] Scan Report Signed Patient: MANUEL BALDERAS MR#: [id number] : 1950 Acct:[id number] Age/Sex: 74 / M ADM Date: 11/17/24 Loc: CT Attending Dr: Non-Staff Physician [place] Ordering Physician: Prince Greer M.D. Date of Service: 11/17/24 Procedure(s): CT ankle LT wo con Accession Number(s): [id number] cc: KHOA BOWLES [place] [address] Patient Name: MANUEL BALDERAS MRN: [id number] date: 1950 Sex: M Assigned Patient Location: CT Current Patient Location: CT Accession/Order Number: [id number] Exam Date: 11/17/2024 09:52 Report Date: 11/18/2024 [...] M.D. Signed By: 11/18/24907 DD/ 4 TD/TT: Jig Operator:TBHRadiology, Radiologist, - 11/18/2024 [place] [address] CT Scan Report Signed Patient: MANUEL BALDERAS MR#: [id number] : 1950 Acct:[id number] Age/Sex: 74 / M ADM Date: 11/17/24 Loc: CT Attending Dr: Non-Staff Physician [place] Ordering Physician: Prince Greer M.D. Date of Service: 11/17/24 Procedure(s): CT ankle LT wo con Accession Number(s): [id number] cc: KHOA BOWLES The [address] [address] Patient Name: AMNUEL BALDERAS MRN: [id number] date: 1950 Sex: M Assigned Patient Location: CT Current Patient Location: CT Accession/Order Number: [id number] Exam Date: 11/17/2024 09:52 Report Date: 11/18/2024 [...] M.D. Signed By: 11/18/24907 DD/ 4 TD/TT: Jig Operator: JENNIFER HealthcareRadiology Study observation (narrative)NOMS HealthcareCT ANKLE LT WO CONOrdered By: Radiologist Radiology on 59-61-7978BTMN Healthcare Work Phone: ccf CMP (CMP) (FOR REMOTE [facility] USE)on 89-35-0632Rtquvwm [Mass/Vol]3.8 g/dL3.4 - 5.0 g/dLNOMS HealthcareALBUMIN GLOBULIN RATIO1.5NOMI HealthcareALP [Catalytic activity/Vol]60 U/L46 - 116 U/LNOMS HealthcareALT [Catalytic activity/Vol]56 U/L16 - 63 U/LNOMS HealthcareAnion gap [Moles/Vol] 14.2 mmol/LNOMS HealthcareAST [Catalytic activity/Vol]42 U/LHigh15 - 37 U/LNOMS HealthcareBilirubin [Mass/Vol]0.5 mg/dL0.2 - 1.0 mg/dLNOMI HealthcareCalcium [Mass/Vol]10.2 mg/dLHigh8.5 - 10.1 mg/dLNOMI HealthcareChloride [Moles/Vol]106 mmol/L98 - 107 mmol/LNOMS HealthcareCO2 [Moles/Vol]27.4 mmol/L21.0 - 32.0 mmol/L NOMS HealthcareCreatinine [Mass/Vol]1.32 mg/dLHigh0.70 - 1.30 mg/dLNOMI HealthcareGFR/1.73 sq M.predicted CKD-EPI (S/P/Bld) [Vol rate/Area]>60>=60 mL/min/1.73m 2NOMS HealthcareGlobulin (S) [Mass/Vol]2.6 g/dLNOMS Healthcare Glucose [Mass/Vol]176 mg/dLBdte66 - 106 mg/dLNOMI HealthcareInterpretation and review of laboratory resultsAbnormalNOMS HealthcarePotassium [Moles/Vol]4.6 mmol/L3.5 - 5.1 mmol/LNOMS HealthcareProtein [Mass/Vol]6.4 g/dL6.4 - 8.2 g/dL NOMS HealthcareSodium [Moles/Vol]143 mmol/L136 - 145 mmol/LNOMS HealthcareTBH EGFR-NON AF GAPRMFMP26Zmf>=60 mL/min/1.73m 2NOMS HealthcareUrea nitrogen [Mass/Vol]35 mg/dLHigh7.0 - 18.0 mg/dLNOMS HealthcareUrea nitrogen/Creatinine [Mass ratio]26.5 mg/mgNOMS HealthcareCLINISYNCNOMS HealthcareAmbulatory Visit Summaryon 27-07-7917Iewbofvxpe Visit SummaryAmbulatory Visit Summary MANUEL BALDERAS :1950 [...] Madison WOOD MD Where: [facility] [address] [place] [address]- You Need to Schedule the Following Appointments Follow Up with Madison WOOD MD, URL When: Where: [facility] [address], [place] [address]- Medications What How Much When Instructions New mirabegron (mirabegron 50 mg oral tablet, extended release) 1 Tablets By Mouth Every day Duration: 30 Days Refills: 11 Pickup at [facility] Unchanged allopurinol (allopurinol 300 mg Tab) 1 [...] concerns Pharmacy Information [id number]: [address], [place] [phone] Allergies Demerol (Shakes) Meperidine HCl-Promethazine HCl (Unknown) Problems Ongoing - Any problem that you are currently recei (more content not included)...[facility] HospitalUrology Office/Clinic Noteon 28-00-0099Turowkq Office/Clinic NoteUrology Office/Clinic Note Chief Complaint 1yr [...] mg ER qd. SEs discussed. Sent to [facility]. 3. Elevated PSA (R97.20: Elevated prostate specific [...] [facility] [address], [place] [address]- Additional Instructions: 3 mos with PVR Patient Education Dietary Guidelines to Help Prevent Kidney Stones I, Kenzie Fierro, personally scribed for Dr. Wood on 09/04/2024 14:26:01. . Documentation recorded by the scribe, Kenzie Fierro, accurately reflects the services(s) I performed and decisions made by me. Authenticated by Dr. Wodo on 09/04/2024 14:27:17. Problem List/Past Medical History [...] ureteric stent (10/26/2013), Cystoscopi (more content not included)...[facility] HospitalComment on above:Result Comment: Electronically Signed By: Madison WOOD MD\.br\Date and Time Signed: 09/04/24 14:27 EST\.br\Electronically Co-Signed By: Kenzie Fierro P\.br\Date and Time Co-Signed: 09/04/24 14:26 ESTXR ABDOMEN 1Von 07-45-4557[place] [address] XRay Report Signed Patient: MANUEL BALDERAS MR#: [id number] : 1950 Acct:[id number] Age/Sex: 74 / M ADM Date: 08/31/24 Loc: LAB Attending Dr: Madison Wood M.D. Ordering Physician: Madison Wood M.D. Date of Service: 08/31/24 Procedure(s): XR abdomen 1V Accession Number(s): [id number] cc: KHOA BOWLES ; Madison Wood M.D. [place] [address] Patient Name: MANUEL BALDERAS MRN: [id number] date: 1950 Sex: M Assigned Patient Location: LAB Current Patient Location: Accession/Order Number: [id number] Exam Date: 08/31/2024 15:00 Report Date: 09/02/2024 [...] M.D. Signed By: 09/02/24 0659 DD/ TD/TT: Jig Operator:TBHRadiology, Radiologist, - 09/02/2024 [place] [address] XRay Report Signed Patient: MANUEL BALDERAS MR#: [id number] : 1950 Acct:[id number] Age/Sex: 74 / M ADM Date: 08/31/24 Loc: LAB Attending Dr: Madison Wood M.D. Ordering Physician: Madison Wood M.D. Date of Service: 08/31/24 Procedure(s): XR abdomen 1V Accession Number(s): [id number] cc: KHOA BOWLES ; Madison Wood M.D. [place] [id number] Patient Name: MANUEL BALDERAS MRN: [id number] date: 1950 Sex: M Assigned Patient Location: LAB Current Patient Location: Accession/Order Number: [id number] Exam Date: 08/31/2024 15:00 Report Date: 09/02/2024 [...] M.D. Signed By: 09/02/2459 DD/ 5 TD/TT: Jig Operator: JENNIFER HealthcareRadiology Study observation (narrative)[facility] HealthcareXR ABDOMEN 1VOrdered By: Radiologist Radiology on 19-01-8608XOZZ Healthcare Work Phone: mhPT PSA, DIAGNOSTICon 42-10-4526Sgcwijnicxdkmk and review of laboratory resultsAbnormalNOMI HealthcarePROSTATE SPECIFIC ANTIGEN DX 5.17 ng/mLHighNINF - 4.00 ng/mLNOMS HealthcareCLINISYNCNOMS HealthcareVC EXT VENOUS REFLUX ROSE MARY LMTDon 96-39-64[address] [address] Vein Report Signed Patient: MANUEL BALDERAS MR#: [id number] : 1950 Acct:[id number] Age/Sex: 73 / M ADM Date: 03/20/24 Loc: VC Attending Dr: Callie Mora M.D. Ordering Physician: Callie Mora M.D. Date of Service: 03/20/24 Procedure(s): VC EXT Venous Reflux ROSE MARY LMTD Accession Number(s): [id number] cc: KHOA BOWLES ; Callie Mora M.D. Patient Name: MANUEL BALDERAS MR#: [id number] : 1950 Exam Date: 03/20/2024 Ordering Doctor: [...] calf GSV. Flow: Mild deep venous reflux. 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 Xomp-gl-oenuouth right anterior accessory saphenous vein venous insufficiency [...] content not included)...TBHRadiology, Radiologist, - 03/22/2024 [place] [address] Vein Report Signed Patient: MANUEL BALDERAS MR#: [id number] : 1950 Acct:[id number] Age/Sex: 73 / M ADM Date: 03/20/24 Loc: VC Attending Dr: Callie Mora M.D. Ordering Physician: Callie Mora M.D. Date of Service: 03/20/24 Procedure(s): VC EXT Venous Reflux ROSE MARY LMTD Accession Number(s): [id number] cc: KHOA BOWLES ; Callie Mora M.D. Patient Name: MANUEL BALDERAS MR#: [id number] : 1950 Exam Date: 03/20/2024 Ordering Doctor: [...] calf GSV. Flow: Mild deep venous reflux. 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 Szbg-ms-nvohedfp right anterior accessory saphenous vein venous insufficiency with borderline dilatation 5. Mild bilateral deep vein reflux 6. Bilateral popliteal fossa collections likely representing popliteal cysts 7. Bilateral incompetent varicose veins 1. Dictated by: Tali Latham MD on 03/22/2024 at 08:54 Approved by: Tali Latham MD on 03/22/2024 at 08:57 Dictated By: Tali Latham M.D. Signed By: 03/22/2458 DD/ TD/TT: Jig Operator: JENNIFER HealthcareRadiology Study observation (narrative)[facility] HealthcareVC EXT VENOUS REFLUX ROSE MARY LMTDOrdered By: Radiologist Radiology on 42-05-9463TRAICox [place] Work Phone: cITRATE URINE 24HRon 63-48-2903Bjdhzj Acid, U, 24hr 1042 mg/24 biWpfoqw861-5384Ftg [facility] Medical CenterComment on above:Result Comment: This test was developed and its performance characteristics determined by [employer]. It has not been cleared or approved by the Food and Drug Administration.Performed By: #### CBC #### [facility] [address] [place] [address] Dr. Cleveland SnowdenCitric Acid, Vkeoc368 mg/LNormalUndefinedBlanchard Valley [facility] Comment on above:Performed By: #### CBC #### [facility] [address] [place] [address] Dr. Cleveland SnowdenOXALATE 24HR URINEon 56-71-9156Bnbuhvnf, Urine19 mg/LNormal UndefinedBlanchard Valley Health System Bluffton HospitalComment on above:Performed By: #### CBC #### [facility] [address] [place] [address] Dr. Cleveland SnowdenOxalates, Urine 24hr27 mg/24 hrNormal7-44The [facility] Comment on above:Performed By: #### CBC #### [facility] [address] [place] [address] Dr. Cleveland SnowdenMAGNESIUM 24HR URINEon 56-51-2347Utrjstzqe 24hr Urine82.7 mg/24 kmBofldf98.0-293.0The [facility]S Medical CenterComment on above:Performed By: #### CBC #### [facility] [address] [place] [address] Dr. Cleveland SnowdenMagnesium UR5.8 mg/dLNormalNot Estab.The [facility] Medical CenterComment on above:Performed By: #### CBC #### [facility] [address] [place] [address] Dr. Cleveland SnowdenPHOSPHORUS 24HR URINEon 02-39-1139Kibeujldvh, Urine59.7 mg/dL NormalNot Estab.The [facility]S Medical CenterComment on above:Performed By: #### PT, PTT #### [facility] [address] [place] [address] Dr. Cleveland SnowdenPhosphorus, Urine 20so209 mg/24 eoScjyao207-9771Wlx [facility] on above:Performed By: #### PT, PTT #### [facility] [address] [place] [address] Dr. Cleveland SnowdenPTH INTACTon 58-57-6291JOV, Kpnxrg40 pg/aIUqwndt48-16Mba [facility] on above:Performed By: #### PTHINT #### [facility] [address] [place] [address] Dr. Cleveland SnowdenURIC ACID 24 HR URINEon 32-08-2706Cblf Acid, Urine36.4 mg/dL NormalNot Estab.The [facility]S Medical CenterComment on above:Performed By: #### PT, PTT #### [facility] [address] [place] [address] Dr. Cleveland SnowdenUric Acid, Urine 09cl319.7 mg/24 xcXdcdop280.1-771.1The [facility] on above:Performed By: #### PT, PTT #### [facility] [address] [place] [address] Dr. Cleveland SnowdenBUNon 78-08-6605Zvbr nitrogen [Mass/Vol]22.0 mg/dLCritically high 7.0-18.0The [facility] on above:Performed By: #### CBC #### [facility] [address] [place] [address] Dr. Cleveland SnowdenCALCIUMon 85-45-0680Jcrgxeu [Mass/Vol]9.7 mg/dLNormal8.5-10.1The [facility] on above:Performed By: #### CBC #### [facility] [address] [place] [address] Dr. Cleveland SnowdenCALCIUM 24 HR URINEon 64-26-2427VOYQ, 24 HR UR84.1 mg/24 hr Critically dus052.0-300.0[facility] on above:Performed By: #### [id number] #### [facility] [address] [place] [address] Dr. Cleveland Campuzano CALCIUM5.9 mg/dLNormal5.1-21.0The [facility] on above:Performed By: #### [id number] #### [facility] [address] [place] [address] Dr. Cleveland Campuzano TOT RYY1878 ml/24 HRNormalThe [facility] Medical CenterComformerly [facility] on above:Performed By: #### [id number] #### [facility] [address] [place] [address] Dr. Cleveland SnowdenPerformed By: #### AZJR04S, NA24U #### [facility] [address] [place] [address] Dr. Cleveland SnowdenPerformed By: #### PT, PTT #### [facility] [address] [place] [address] Dr. Cleveland SnowdenCHLORIDEon 48-33-8467Ltpustzb [Moles/Vol]107 mmol/MGefitz36-464 The [facility] on above:Performed By: #### CBC #### [facility] [address] [place] [address] Dr. Cleveland SnowdenCO2on 89-93-6003VZ1 [Moles/Vol]33.7 mmol/LCritically high 21.0-32.0The [facility] Medical CenterComformerly [facility] on above:Performed By: #### A1C #### [facility] [address] [place] [address] Dr. Cleveland Head 24 HR URINEon 22-02-0956PWZN, 24 HR RE4786.21 mg/24 hrNormal 1,000.00-2,000.00The [facility] on above:Performed By: #### PT, PTT #### [facility] [address] [place] [address] Dr. Cleveland Dixon CREAT78.26 mg/jBEeqsqw45.00-300.00The [facility] Comment on above:Performed By: #### PT, PTT #### [facility] [address] [place] [address] Dr. Cleveland SnowdenCREATININEon 82-62-0505Phtfpcsgnv [Mass/Vol]0.91 mg/dLNormal 0.70-1.30The [facility]S Medical CenterComment on above:Performed By: #### A1C #### [facility] [address] [place] [address] Dr. Cleveland RubioGFR-AF KUWAITI>60Normal>=60The [facility]'S Medical CenterComment on above:Performed By: #### A1C #### [facility] [address] [place] [address] Dr. Cleveland RubioGFR-NON AF KUWAITI>60Normal>=60The [facility] Medical CenterComment on above:Performed By: #### A1C #### [facility] [address] [place] [address] Dr. Cleveland Campbell 98-41-5300Kpbbjo [Moles/Vol]144 mmol/GUcscfq882-474Oph [facility] Medical CenterComment on above:Performed By: #### CBC #### [facility] [address] [place] [address] Dr. Cleveland SnowdenPOTASSIUMon 82-45-8996Sqwnkdmto [Moles/Vol]4.1 mmol/LNormal 3.5-5.1The [facility]S Medical CenterComment on above:Performed By: #### A1C #### [facility] [address] [place] [address] Dr. Cleveland Wilson 24 HR URINEon 25-97-1888WQ, 24 HR UR221 mmol/24 hr Critically wslb45-130Jfk [facility] Medical CenterComment on above:Performed By: #### BSZG07W, NA24U #### [facility] [address] [place] [address] Dr. Cleveland Marquezum (U) [Moles/Vol]155 mmol/LCritically hsqf79-21Prc [facility] CenterComment on above:Performed By: #### ZBGH80T, NA24U #### [facility] [address] [place] [address] Dr. Cleveland SnowdenURIC ACID SERUMon 47-56-7924Fcydj [Mass/Vol]4.3 mg/dLNormal 3.5-7.2The [facility] Medical CenterComment on above:Performed By: #### CBC #### [facility] [address] [place] [address] Dr. Cleveland SnowdenPOINT OF CARE GLUCOSEon 81-31-8341Bdzqwsu [Mass/Vol]237 mg/dL Critically wpar67-408Jym [facility] Medical CenterComment on above:Performed By: #### PT, PTT #### [facility] [address] [place] [address] Dr. Cleveland SnowdenXR KUB 1 VIEWon 54-86-4977ES KUB 1 VIEWEXAM: Abdomen: HISTORY: Follow-up kidney [...] Electronically authenticated by: ISAK CORTEZ Date: 2023-01-14 08:37NoAC[facility] AUTO DIFFon 23-34-9250KXRN #0.0 103/ulNormal0.0-0.1The [facility] Medical CenterComment on above:Performed By: #### CBC #### [facility] [address] [place] [address] Dr. Cleveland SnowdenBasophils/100 WBC (Bld)0.4 %Normal0.2-2.0[facility] Comment on above:Performed By: #### CBC #### [facility] [address] [place] [address] Dr. Cleveland Ritter #0.2 103/ulNormal0.0-0.7The [facility]S Medical CenterComment on above: Performed By: #### CBC #### [facility] [address] [place] [address] [address] Cleveland Rubioosinophils/100 WBC (Bld)4.4 %Normal0.9-7.0The [facility] Comment on above:Performed By: #### CBC #### [facility] [address] [place] [address] [address] Cleveland Rubiorythrocyte distribution width (RBC) [Ratio]14.8 %Fatgfn07.0-15.0 The [facility]S Medical CenterComment on above:Performed By: #### CBC #### [facility] [address] [place] [address] Dr. Cleveland SnowdenHematocrit (Bld) [Volume fraction]35.7 %Critically low42.0-54.0 The [facility]S Medical CenterComment on above:Performed By: #### CBC #### [facility] [address] [place] [address] Dr. Cleveland SnowdenHemoglobin (Bld) [Mass/Vol]12.0 g/dLCritically low14.0-18.0[facility] HospitalComment on above:Performed By: #### CBC #### [facility] [address] [place] [address] Dr. Cleveland Alicea #0.03 10e3/ulNormal0.00-0.03The [facility]S Medical CenterComment on above:Performed By: #### CBC #### [facility] [address] [address] [address] Cleveland Alicea %0.6 %Critically high0.0-0.5ThVeterans Health AdministrationComment on above:Performed By: #### CBC #### [facility] [address] [place] [address] Dr. Cleveland GarciaH #0.7 103/ulCritically low1.2-3.8The [facility] Comment on above:Performed By: #### CBC #### [facility] [address] [place] [address] Dr. Cleveland Garciamphocytes/100 WBC (Bld)14.4 %Critically low20.5-60.0The [facility] Isle HospitalComment on above:Performed By: #### CBC #### [facility] [address] DIFF REQNONormalThe [facility]S Medical CenterComment on above: Performed By: #### CBC #### [facility] [address] [place] [address] Dr. Cleveland Rey (RBC) [Entitic mass]31.1 ynMezosq31.9-34.0The [facility] HospitalComment on above:Performed By: #### CBC #### [facility] [address] [place] [address] Dr. Cleveland Rey (RBC) [Mass/Vol]33.6 g/fPOittoe93.9-35.2The [facility] CenterComment on above:Performed By: #### CBC #### [facility] [address] [place] [address] Dr. Cleveland Rey (RBC) [Entitic vol]92.5 fFTpzegq49.0-94.0The [facility] CenterComment on above:Performed By: #### CBC #### [facility] [address] [place] [address] Dr. Cleveland Lay #0.5 103/ulNormal0.3-0.8The [facility] CenterComment on above:Performed By: #### CBC #### [facility] [address] [place] [address] Dr. Cleveland Leeocytes/100 WBC (Bld)11.0 %Normal1.7-12.0The [facility] Comment on above:Performed By: #### CBC #### [facility] [address] [place] [address] Dr. Cleveland Durbin #3.3 103/ulNormal1.4-6.5The [facility] CenterComment on above:Performed By: #### CBC #### [facility] [address] [place] [address] Dr. Cleveland Whitfieldutrophils/100 WBC (Bld)69.2 %Cdhacf55.0-75.0The [facility] CenterComment on above:Performed By: #### CBC #### [facility] [address] [address] [address] Cleveland SnowdenPlatelet mean volume (Bld) [Entitic vol]10.0 fLNormal9.5-13.5The [facility] CenterComment on above:Performed By: #### CBC #### [facility] [address] [place] [address] Dr. Cleveland SnowdenPLT105 103/ulCritically ibk413-129Cxm [facility] CenterComment on above:Performed By: #### CBC #### [facility] [address] [place] [address] Dr. Cleveland SnowdenRBC3.86 106/ulCritically low4.70-6.10The [facility] CenterComment on above:Performed By: #### CBC #### [facility] [address] [place] [address] Dr. Cleveland SnowdenWBC4.8 103/ulNormal4.0-11.0The [facility] CenterComment on above: Performed By: #### CBC #### [facility] [address] [place] [address] Dr. Cleveland SnowdenPROManny CHEM 8 (BAS METB)on 95-44-7630Rmsaf gap [Moles/Vol]12.7 mmol/LNormalThe [facility] CenterComment on above:Performed By: #### CBC #### [facility] [address] [place] [address] Dr. Cleveland SnowdenCalcium [Mass/Vol]9.6 mg/dLNormal8.5-10.1[facility] Comment on above:Performed By: #### CBC #### [facility] [address] [place] [address] Dr. Cleveland SnowdenChloride [Moles/Vol]107 mmol/ZOwavgq51-919Spr [facility] Comment on above:Performed By: #### CBC #### [facility] [address] [place] [address] Dr. Cleveland SnowdenCO2 [Moles/Vol]29.0 mmol/ZGlnjuu48.0-32.0The [facility] Comment on above:Performed By: #### CBC #### [facility] [address] [place] [address] Dr. Cleveland SnowdenCreatinine [Mass/Vol]0.76 mg/dLNormal0.70-1.30The [facility] CenterComment on above:Performed By: #### CBC #### [facility] [address] [address] [address] Cleveland RubioGFR-AF KUWAITI>60Normal>=60The [facility] CenterComment on above:Performed By: #### CBC #### [facility] [address] [place] [address] Dr. Cleveland RubioGFR-NON AF KUWAITI>60Normal>=60The [facility] CenterComment on above:Performed By: #### CBC #### [facility] [address] [place] [address] Dr. Cleveland SnowdenGlucose [Mass/Vol]127 mg/dLCritically buai03-086Kpy [facility] CenterComment on above:Performed By: #### CBC #### [facility] [address] [place] [address] Dr. Cleveland SnowdenPotassium [Moles/Vol]3.7 mmol/LNormal3.5-5.1[facility] Comment on above:Performed By: #### CBC #### [facility] [address] [place] [address] Dr. Cleveland SnowdenSodium [Moles/Vol]145 mmol/DLhdelo870-966Pie [facility] Comment on above:Performed By: #### CBC #### [facility] [address] [address] [address] Cleveland SnowdenUrea nitrogen [Mass/Vol]21.0 mg/dLCritically high7.0-18.0The [facility] CenterComment on above:Performed By: #### CBC #### [facility] [address] [place] [address] Dr. Cleveland SnowdenUrea nitrogen/Creatinine [Mass ratio]27.6 mg/mgNormalThe [facility] CenterComment on above:Performed By: #### CBC #### [facility] [address] [place] [address] Dr. [place] SnowdenPROTIMEon 97-02-1070KOM Coag (PPP) [Relative time]1.04 {INR} NormalThe [facility] Medical CenterComformerly [facility] on above:Performed By: #### PT, PTT #### [facility] [address] [place] [address] Dr. Cleveland Cavazos GUIDELINESSEE BELOWPremier Health Miami Valley HospitalComment on above:Result Comment: DESIRED INR: 2.0 - 3.0 CONDITIONS NOT LISTED BELOW 2.5 - 3.5 FOR PROSTHETIC HEART VALVE REPLACEMENT 2.5 - 3.5 RECURRENT THROMBOSIS Performed By: #### PT, PTT #### [facility] [address] [place] [address] Dr. Cleveland SnowdenPT Coag (PPP) [Time]11.0 sNormal9.0-11.6The [facility] Comment on above:Performed By: #### PT, PTT #### [facility] [address] [place] [address] Dr. Cleveland Daly [id number] Coag (Bld) [Time]29.6 fClqriu53.3-36.2The [facility] on above:Performed By: #### PT, PTT #### [facility] [address] [place] [address] Dr. [place] SnowdenXR KUB 1 VIEWon 50-45-8085QR KUB 1 VIEWEXAMINATION: XR KUB 1 VIEW [...] Electronically authenticated by: TALI LATHAM Date: 2023-01-01 16:46[facility] HospitalGLYCOHEMOGLOBIN A1Con [id number] RECOMMENDATIONSEE BELOW NormalThe [facility] CenterComformerly [facility] on above:Result Comment: ADA RECOMMENDED LIMIT 4.0 - 6.0 ADA THERAPEUTIC TARGET < 7.0 ACTION SUGGESTED > 7.0Performed By: #### A1C #### [facility] [address] [address] [address] Cleveland SnowdenGlucose [Mass/Vol]126 mg/dLNoOhio State Harding HospitalComment on above:Performed By: #### A1C #### [facility] [address] [address] [address] [place] SnowdenHbA1c (Bld) [Mass fraction]6.0 %Normal4.5-6.2The [facility] CenterComment on above:Performed By: #### A1C #### [facility] [address] [place] [address] Dr. [place] SnowdenXR KUB 1 VIEWon 57-86-5294AP KUB 1 VIEWEXAMINATION: XR KUB 1 VIEW [...] Electronically authenticated by: TALI LATHAM Date: 2022-09-09 15:01[facility] HospitalGLYCOHEMOGLOBIN A1Con [id number] RECOMMENDATIONSEE BELOW NormalThe [facility] on above:Result Comment: ADA RECOMMENDED LIMIT 4.0 - 6.0 ADA THERAPEUTIC TARGET < 7.0 ACTION SUGGESTED > 7.0Performed By: #### A1C #### [facility] [address] [place] [address] Dr. [place] SnowdenGlucose [Mass/Vol]131 mg/dLPremier Health Miami Valley HospitalComment on above:Performed By: #### A1C #### [facility] [address] [address] [address] [place] SnowdenHbA1c (Bld) [Mass fraction]6.2 %Normal4.5-6.2The [facility] CenterComment on above:Performed By: #### A1C #### [facility] [address] [address] [address] Cleveland SnowdenLIPID PROFILEon [id number]-HDL RATIO NORMSFlower HospitalComment on above:Result Comment: 3.3 - 4.4 LOW RISK 4.4 - 7.1 AVERAGE RISK 7.1 - 11.0 MODERATE RISK >11.0 HIGH RISKPerformed By: #### A1C #### [facility] [address] [address] [address] [place] SnowdenCholesterol [Mass/Vol]108 mg/dLNormal<=200[facility] Comment on above:Performed By: #### A1C #### [facility] [address] [address] [address] [place] SnowdenCholesterol in HDL [Mass/Vol]36 mg/dLCritically acu66-77Kcr [facility] CenterComment on above:Performed By: #### A1C #### [facility] [address] [address] [address] [place] SnowdenCholesterol in LDL [Mass/Vol]45.0 mg/dLPremier Health Miami Valley HospitalComment on above:Performed By: #### A1C #### [facility] [address] [address] [address] Cleveland SnowdenCholesterol.total/Cholesterol in HDL [Mass ratio]3.0 {ratio} NormalBlanchard Valley Health System Bluffton HospitalComment on above:Performed By: #### A1C #### [facility] [address] [address] [address] [place] SnowdenHDL NORMAL> or = 60 mg/dl - LOW CARDIOVASCULAR RISK <40 mg/dl - HIGH CARDIOVASCULAR RISKPremier Health Miami Valley HospitalComformerly [facility] on above:Performed By: #### A1C #### [facility] [address] [address] [address] [place] SnowdenLDL CALC NORMALSEE BELOWPremier Health Miami Valley HospitalComment on above:Result Comment: <100 mg/dl OPTIMAL 100 - 129 mg/dl NEAR OR ABOVE OPTIMAL 130 - 159 mg/dl BORDERLINE HIGH 160 - 189 mg/dl HIGH >190 mg/dl VERY HIGH Performed By: #### A1C #### [facility] [address] [address] [address] [place] SnowdenTriglyceride [Mass/Vol]135 mg/dLNormal<=150The [facility] Comment on above:Performed By: #### A1C #### [facility] [address] [address] [address] [place] SnowdenVLDL CALC27.0 mg/dLNoOhio State Harding HospitalComment on above: Performed By: #### A1C #### [facility] [address] [place] [address] Dr. [place] SnowdenGLYCOHEMOGLOBIN A1Con [id number] RECOMMENDATIONSEE BELOWCleveland Clinic Marymount HospitalComment on above:Result Comment: ADA RECOMMENDED LIMIT 4.0 - 6.0 ADA THERAPEUTIC TARGET < 7.0 ACTION SUGGESTED > 7.0Performed By: #### A1C #### [facility] [address] [place] [address] Dr. Cleveland SnowdenGlucose [Mass/Vol]154 mg/dLNoOhio State Harding HospitalComment on above:Performed By: #### A1C #### [facility] [address] [place] [address] Dr. [place] SnowdenHbA1c (Bld) [Mass fraction]7.0 %Critically high4.5-6.2[facility] HospitalComment on above:Performed By: #### A1C #### [facility] [address] [place] [address] Dr. [place] SnowdenLIPID PROFILEon [id number]-HDL RATIO NORMSEE BELOWPremier Health Miami Valley HospitalComment on above:Result Comment: 3.3 - 4.4 LOW RISK 4.4 - 7.1 AVERAGE RISK 7.1 - 11.0 MODERATE RISK >11.0 HIGH RISKPerformed By: #### PT, PTT #### [facility] [address] [place] [address] Dr. [place] SnowdenCholesterol [Mass/Vol]104 mg/dLNormal<=200The [facility] Comment on above:Performed By: #### PT, PTT #### [facility] [address] [place] [address] Dr. [place] SnowdenCholesterol in HDL [Mass/Vol]24 mg/dLCritically buy11-94Nvo [facility] CenterComment on above:Performed By: #### PT, PTT #### [facility] [address] [address] [address] [place] SnowdenCholesterol in LDL [Mass/Vol]28.0 mg/dLNoOhio State Harding HospitalComment on above:Performed By: #### PT, PTT #### [facility] [address] [place] [address] Dr. Cleveland Chahalestermo.total/Cholesterol in HDL [Mass ratio]4.3 {ratio} NormalThe [facility] CenterComment on above:Performed By: #### PT, PTT #### [facility] [address] [place] [address] Dr. Cleveland Tesfaye NORMAL> or = 60 mg/dl - LOW CARDIOVASCULAR RISK <40 mg/dl - HIGH CARDIOVASCULAR RISKNoOhio State Harding HospitalComment on above:Performed By: #### PT, PTT #### [facility] [address] [place] [address] Dr. Cleveland Uriarte CALC NORMALSEE BELOWNoOhio State Harding HospitalComment on above:Result Comment: <100 mg/dl OPTIMAL 100 - 129 mg/dl NEAR OR ABOVE OPTIMAL 130 - 159 mg/dl BORDERLINE HIGH 160 - 189 mg/dl HIGH >190 mg/dl VERY HIGH Performed By: #### PT, PTT #### [facility] [address] [place] [address] Dr. [place] SnowdenTriglyceride [Mass/Vol]260 mg/dLCritically high<=150The [facility] CenterComment on above:Performed By: #### PT, PTT #### [facility] [address] [place] [address] Dr. [place] SnowdenVLDL CALC52.0 mg/dLNoOhio State Harding HospitalComment on above: Performed By: #### PT, PTT #### [facility] [address] [address] [address] Cleveland SnowdenPROF 14(COMP METB)on 44-86-4302Jvgsekm [Mass/Vol]3.5 g/dLNormal 3.4-5.0The [facility] CenterComment on above:Performed By: #### PT, PTT #### [facility] [address] [address] [address] [place] SnowdenAlbumin/Globulin [Mass ratio]1.1 {ratio}NormalThe [facility] CenterComment on above:Performed By: #### PT, PTT #### [facility] [address] [place] [address] Dr. Cleveland Mesa [Catalytic activity/Vol]59 U/DOcirln57-952Spo [facility] CenterComment on above:Performed By: #### PT, PTT #### [facility] [address] [place] [address] Dr. Cleveland Delcid [Catalytic activity/Vol]46 U/VJupexk06-03Vbo [facility] CenterComment on above:Performed By: #### PT, PTT #### [facility] [address] [place] [address] Dr. Cleveland Acosta gap [Moles/Vol]14.7 mmol/LNormalThe [facility] Comment on above:Performed By: #### PT, PTT #### [facility] [address] [place] [address] Dr. [place] SnowdenAST [Catalytic activity/Vol]46 U/LCritically wqpl73-42Cey [facility] CenterComment on above:Performed By: #### PT, PTT #### [facility] [address] [place] [address] Dr. Cleveland SnowdenBilirubin [Mass/Vol]0.5 mg/dLNormal0.2-1.0The [facility] Comment on above:Performed By: #### PT, PTT #### [facility] [address] [place] [address] Dr. Cleveland SnowdenCalcium [Mass/Vol]9.5 mg/dLNormal8.5-10.1The [facility] Comment on above:Performed By: #### PT, PTT #### [facility] [address] [place] [address] Dr. [place] SnowdenChloride [Moles/Vol]103 mmol/EUltecw11-354Alj [facility] Comment on above:Performed By: #### PT, PTT #### [facility] [address] [place] [address] Dr. [place] SnowdenCO2 [Moles/Vol]28.1 mmol/DGjnlsq30.0-32.0The [facility] Comment on above:Performed By: #### PT, PTT #### [facility] [address] [place] [address] Dr. [place] SnowdenCreatinine [Mass/Vol]0.84 mg/dLNormal0.70-1.30The [facility] CenterComment on above:Performed By: #### PT, PTT #### [facility] [address] [place] [address] Dr. [place] RubioGFR-AF KUWAITI>60Normal>=60The [facility] CenterComment on above:Performed By: #### PT, PTT #### [facility] [address] [place] [address] Dr. Cleveland RubioGFR-NON AF KUWAITI>60Normal>=60The [facility] CenterComment on above:Performed By: #### PT, PTT #### [facility] [address] [place] [address] Dr. [place] SnowdenGlobulin (S) [Mass/Vol]3.1 g/dLNormalThe [facility] CenterComment on above:Performed By: #### PT, PTT #### [facility] [address] [place] [address] Dr. [place] SnowdenGlucose [Mass/Vol]176 mg/dLCritically sgko47-559Lpu [facility] CenterComment on above:Performed By: #### PT, PTT #### [facility] [address] [place] [address] Dr. [place] SnowdenPotassium [Moles/Vol]3.8 mmol/LNormal3.5-5.1The [facility] Comment on above:Performed By: #### PT, PTT #### [facility] [address] [place] [address] Dr. [place] SnowdenProtein [Mass/Vol]6.6 g/dLNormal6.4-8.2The [facility] Comment on above:Performed By: #### PT, PTT #### [facility] [address] [place] [address] Dr. Cleveland SnwodenSodium [Moles/Vol]142 mmol/BTypqlf489-395Bqs [facility] Comment on above:Performed By: #### PT, PTT #### [facility] [address] [place] [address] Dr. [place] SnowdenUrea nitrogen [Mass/Vol]24.0 mg/dLCritically high7.0-18.0The [facility] CenterComment on above:Performed By: #### PT, PTT #### [facility] [address] [place] [address] Dr. Cleveland Bahena nitrogen/Creatinine [Mass ratio]28.6 mg/mgNormalThe [facility] CenterComment on above:Performed By: #### PT, PTT #### [facility] [address] [place] [address] Dr. [place] SnowdenURIC ACID SERUMon 26-16-2653Avwxy [Mass/Vol]6.2 mg/dLNormal 3.5-7.2The [facility] CenterComment on above:Performed By: #### PT, PTT #### [facility] [address] [place] [address] Dr. [place] SnowdenBasophils Auto (Bld) [#/Vol]on 63-01-5327Pnxlcmazt (Bld) [#/Vol] 0.0 10*3/uL0.0-0.2FKeenan Private Hospital CtrBasophils/100 WBC Auto (Bld)on 73-07-2341Mlcsqrzcs/100 WBC (Bld)0.6 %[facility] CtrBlood hemoglobin measurement (mass/volume)on 50-37-4679Zuwofsmlgv (Bld) [Mass/Vol]12.2 g/dL13.0-17.0[facility] CtrBlood leukocytes automated count (number/volume)on 48-00-1957MSE (Bld) [#/Vol]4.7 10*3/uL4.5-11.0[facility] CtrCreatinine and Glomerular filtration rate.predicted panel (S/P/Bld)on 20-71-9435Tutqupwyjt [Mass/Vol]0.68 mg/dL0.64-1.27[facility] CtrEosinophils Auto (Bld) [#/Vol]on 48-63-0818Fmlonjqgbgw (Bld) [#/Vol] 0.1 10*3/uL0.0-0.45[facility] CtrEosinophils/100 WBC Auto (Bld) on 07-28-7862Eejiijmyebj/100 WBC (Bld)3.1 %[facility]tr Erythrocyte distribution width Auto (RBC) [Ratio]on 36-99-6782Yejivhedocy distribution width (RBC) [Ratio]15.0 %12.0-14.8[facility]tr Estimated glomerular filtration rate (GFR) non- Americanon 04-03-2021 GFR/1.73 sq M.predicted among non-blacks MDRD (S/P/Bld) [Vol rate/Area]> 60 mL/MinMercy Health Anderson Hospital CtrHematocrit Auto (Bld) [Volume fraction]on 87-66-7210Ycomyizgys (Bld) [Volume fraction]36.2 %38.8-50.0[facility] CtrLaboratory - Hematology and Cell countson 10-67-5087Snwfxokji RBC/100 WBC (Bld) [Ratio]0.2 %0-0.5FKeenan Private Hospital CtrLymphocytes Auto (Bld) [#/Vol]on 42-94-2392Hepsohpsnfv (Bld) [#/Vol]0.7 10*3/uL1.00-4.8[facility] CtrLymphocytes/100 WBC Auto (Bld)on 82-90-9233Ufsoiaaeoid/100 WBC (Bld)14.5 %[facility] CantonMCH Auto (RBC) [Entitic mass]on 26-69-2716YZD (RBC) [Entitic mass]31.3 pg27.5-35.2FCity Hospital MCHC Auto (RBC) [Mass/Vol]on 15-14-2921BDKS (RBC) [Mass/Vol]33.8 g/dL32.5-35.6 [facility] CantonMCV Auto (RBC) [Entitic vol]on 97-04-2279ZQE (RBC) [Entitic vol]92.6 fL83.5-101[facility] CtrMonocytes Auto (Bld) [#/Vol]on 73-00-2318Vhfuxzsrr (Bld) [#/Vol]0.5 10*3/uL0.0-0.8[facility] CtrMonocytes/100 WBC Auto (Bld)on 50-53-2136Qagdiryox/100 WBC (Bld)10.7 %[facility] - CantonNeutrophils Auto (Bld) [#/Vol]on 04-03-2021 Neutrophils (Bld) [#/Vol]3.3 10*3/uL1.8-7.7FCity Hospital Neutrophils/100 WBC Auto (Bld)on 13-75-1635Ihwbiinxvqa/100 WBC (Bld)71.1 % [facility] CtrNo Panel Informationon 81-40-4320Fzohjjmlw GFR ()> 60 mL/MinMercy Health Anderson Hospital CtrComment on above:GFR estimated reference range: According to KDOQI guidelines, <60 ml/min/1.73m2 is sufficient todiagnose a patient with chronic kidney disease.Pharmacy Creatinine Clearance (ChemN/AFKeenan Private Hospital CtrPlatelet mean volume Auto (Bld) [Entitic vol]on 32-13-9176Azqwjahd mean volume (Bld) [Entitic vol]8.5 fL6.6-10.1 [facility] CtrPlatelets Auto (Bld) [#/Vol]on 50-91-6849Hrfkbhkls (Bld) [#/Vol]137 10*3/vW956-979KstmdgupjMercy Health Anderson Hospital CtrRBC Auto (Bld) [#/Vol]on 18-42-7264QME (Bld) [#/Vol]3.91 10*6/uL3.90-5.60[facility] CtrSerum or plasma calcium measurement (mass/volume)on 63-24-2616Aacjuis [Mass/Vol]9.8 mg/dL8.2-10.2FKeenan Private Hospital CtrSerum or plasma chloride measurement (moles/volume)on 63-92-2684Lpahyfkk [Moles/Vol]100 mmol/L 95-114[facility] CtrSerum or plasma glucose measurement (mass/volume)on 00-27-8014Kpqmdaz [Mass/Vol]184 mg/yV75-128EsysukgfhSelect Medical Specialty Hospital - CantonComment on above:ADA recommended reference rangeRandom Glucose Reference Range is dependent on time and content of last meal. Glucose of more than 200 mg/dL in a nonstressed, ambulatory subject supports the diagnosisof Diabetes Mellitus.Serum or plasma potassium measurement (moles/volume)on 20-51-8055Tpzmccrxc [Moles/Vol]3.6 mmol/L3.5-5.1FCity Hospital Serum or plasma sodium measurement (moles/volume)on 66-94-3533Nfiedq [Moles/Vol] 138 mmol/Z805-358NxqygnknsSelect Medical Specialty Hospital - CantonSerum or plasma total carbon dioxide measurement (moles/volume)on 75-69-6543HG5 [Moles/Vol]26.3 mmol/L 22.0-30.0[facility] - CantonSerum or plasma urea nitrogen measurement (mass/volume)on 72-64-8108Qwyt nitrogen [Mass/Vol]17 mg/dL9-23[facility] - CantonBasophils Auto (Bld) [#/Vol]on 01-92-9041Cyrltrewj (Bld) [#/Vol]0.0 10*3/uL0.0-0.2FKeenan Private Hospital CtrBasophils/100 WBC Auto (Bld)on 70-22-0227Teptssyxb/100 WBC (Bld)0.6 %[facility] Blood hemoglobin measurement (mass/volume)on 74-88-0710Dtbgeuhyqk (Bld) [Mass/Vol]12.6 g/dL13.0-17.0[facility] CtrBlood leukocytes automated count (number/volume)on 36-75-7353PXP (Bld) [#/Vol]4.4 10*3/uL4.5-11.0 [facility] CtrEosinophils Auto (Bld) [#/Vol]on 02-11-2021 Eosinophils (Bld) [#/Vol]0.2 10*3/uL0.0-0.45Mercy [facility] Eosinophils/100 WBC Auto (Bld)on 87-01-5887Dpecwsqrrwq/100 WBC (Bld)3.8 % [facility] CtrErythrocyte distribution width Auto (RBC) [Ratio] on 75-37-5010Cjuedffhhwa distribution width (RBC) [Ratio]14.9 %12.0-14.8 [facility] CtrHematocrit Auto (Bld) [Volume fraction]on 79-24-6183Dikuvzrfkv (Bld) [Volume fraction]36.1 %38.8-50.0[facility] CtrLaboratory - Hematology and Cell countson 44-07-5166Sycqixpuy RBC/100 WBC (Bld) [Ratio]0.1 %0-0.5FKeenan Private Hospital CtrLymphocytes Auto (Bld) [#/Vol]on 66-33-7682Zvwsgidmsck (Bld) [#/Vol]0.7 10*3/uL1.00-4.8[facility] CtrLymphocytes/100 WBC Auto (Bld)on 51-42-1410Dodeyjcpjth/100 WBC (Bld)15.4 %[facility] Auto (RBC) [Entitic mass]on 41-27-2210LLV (RBC) [Entitic mass]32.5 pg27.5-35.2[facility] MCHC Auto (RBC) [Mass/Vol]on 74-71-2744YFBJ (RBC) [Mass/Vol]34.8 g/dL32.5-35.6 [facility]onMCV Auto (RBC) [Entitic vol]on 91-12-2459VME (RBC) [Entitic vol]93.3 fL83.5-101[facility] CtrMonocytes Auto (Bld) [#/Vol]on 34-17-3697Dwruufvxu (Bld) [#/Vol]0.5 10*3/uL0.0-0.8[facility] CtrMonocytes/100 WBC Auto (Bld)on 96-21-8902Zttmczhye/100 WBC (Bld)12.1 %[facility] CtrNeutrophils Auto (Bld) [#/Vol]on 02-11-2021 Neutrophils (Bld) [#/Vol]3.0 10*3/uL1.8-7.7FKeenan Private Hospital Ctr Neutrophils/100 WBC Auto (Bld)on 84-90-4718Khookvhettd/100 WBC (Bld)68.1 % [facility] CtrPlatelet mean volume Auto (Bld) [Entitic vol]on 94-73-1073Fumvuvkl mean volume (Bld) [Entitic vol]8.2 fL6.6-10.1FKeenan Private Hospital CtrPlatelets Auto (Bld) [#/Vol]on 82-83-6685Csqqtqhpw (Bld) [#/Vol]118 10*3/fH659-906RmubmaxvpMercy Health [facility] CtrRBC Auto (Bld) [#/Vol]on 53-83-1183IFQ (Bld) [#/Vol]3.87 10*6/uL3.90-5.60[facility] Creatinine (Bld) [Mass/Vol]on 31-10-8748Qkbudmiyyq [Mass/Vol]0.7 mg/dL0.6-1.3 [facility] CtrComment on above:ER/ESD physician is notified/shown all ISTAT results.Critical values may be confirmed by laboratory testing ifdeemed necessary by ER attending doctor.No Panel Informationon 84-61-0722WCO Estimated GFR > 60[facility] Comment on above:GFR estimated reference range: According to KDOQI guidelines, <60 ml/min/1.73m2 is sufficient todiagnose a patient with chronic kidney disease.POC Estimated GFR Non- Amer> 60[facility] Vital Signs Date TimeVital SignValuePerforming QxolvuvpkXfnyfebi51-39-7430 14:06-0400Body uqcrnq479.42 cmPatricvincent Drew DO Work Phone: [phone])866-[address] [place], [place] 3544709-23-2025 14:06-0400 Body mass index (BMI) [Ratio]37 kg/i5XnhikfnMadison Drew DO Work Phone: [phone]09-23-2025 14:06-0400 Body pelpjt936.45 kgMadison Drew DO Work Phone: [phone] [place], [place] 3544709-23-2025 14:06-0400 Diastolic blood zkjvezhd19 mm[Hg]Madison Drew DO Work Phone: [phone])199-[address] [place], [place] 3544709-23-2025 14:06-0400 Heart rate60 /minMadison Myerspa DO Work Phone: [phone]09-23-2025 14:06-0400 SaO2% (BldA) [Mass fraction]97 %Madison Drew DO Work Phone: [phone])568-[address] [place], [place] 3544709-23-2025 14:06-0400 Systolic blood mm[Hg]Madison Drew DO Work Phone: [phone] [place], [place] 3544709-18-2025 16:14-0400 Body rjpupl387.4 cmElloyd Bowles MD Work Phone: [facility]ansonNezjedgmgp56-86-6302 16:14-0400Body mass index (BMI) [Ratio]37.07 kg/z9MvgmssKhoa Bowles MD Work Phone: [facility]ansonEymnanxuwq93-69-9935 16:14-0400Body ykapkz977.46 kgKhoa Bowles MD Work Phone: [facility]ansonCwtuvdsddr42-61-7497 16:14-0400Heart rate75 /min Khoa Bowles MD Work Phone: [facility]ansonThiwejqwwr74-32-7889 16:14-5555WrI7% (BldA) [Mass fraction]95 %Khoa Bowles MD Work Phone: [place] [address]Kctgxdjith69-95-0247 16:39-0400Diastolic blood awnupspa87 mm[Hg]Khoa Bowles MD Work Phone: [phone] [place], [place] 6703709-12-2025 16:39-0400 Heart rate56 /Helga Bowles MD Work Phone: [phone] [place], [place] 6703709-12-2025 16:39-0400 Respiratory rate18 /Helga Bowles MD Work Phone: [phone] [place], [place] 6703709-12-2025 16:39-0400 SaO2% (BldA) [Mass fraction]97 %Khoa Bowles MD Work Phone: [phone])[address] [place], [place] 6703709-12-2025 16:39-0400 Systolic blood mnmcmayu050 mm[Hg]Khoa Bowles MD Work Phone: [phone] [place], [place] 6703709-12-2025 14:38-0400 Body pclaawfxokp82.1 [degF]Khoa Bowles MD Work Phone: [phone])[address] [place], [place] 6703709-12-2025 14:30-0400 Body urbgeh781.42 Tiny Bowles MD Work Phone: [phone] [place], [place] 6703709-12-2025 14:30-0400 Body .8 kgKhoa Bowles MD Work Phone: [phone] [place], [place] 6703709-11-2025 12:54-0400 Body dyubbw932.4 cmTiffanie Enrique DPM Work Phone: [phone]ansonJybzcjkjwn97-02-5803 12:54-0400Body mass index (BMI) [Ratio]37.07 kg/a6RkomuakTiffanie Enrique DPM Work Phone: [phone]ansonFvmpobwpiy16-81-8396 12:54-0400Body kuhiob542.46 kgTiffanie Enrique DPM Work Phone: [phone]ansonPnfzhovrxp00-69-3824 11:04-0400Body xhyiap039.4 Tiny Bowles MD Work Phone: [facility]ansonEusstltmig13-69-6995 11:04-0400Body mass index (BMI) [Ratio]37.07 kg/o8ZbtlfxKhoa Bowles MD Work Phone: [phone] BransonVwkwdxjigh56-60-5086 11:04-0400Body esybce736.46 kgKhoa Bowles MD Work Phone: [phone] [place], [place] [address]Glwvqzrqbl27-75-4011 11:04-0400Diastolic blood mm[Hg]Khoa Bowles MD Work Phone: [phone] [place], [place] [address]Btzzbzfuui17-15-9069 11:04-0400Heart rate71 /min Khoa Bowles MD Work Phone: [phone] [place], [place] [address]Fasbldqklo85-63-3426 11:04-4728QwL2% (BldA) [Mass fraction]96 %Khoa Bowles MD Work Phone: [phone] [place], [place] [address]Ahvhljfidg60-34-6010 11:04-0400Systolic blood shrzrcev240 mm[Hg]Khoa Bowles MD Work Phone: [phone] [place], [place] [address]Hovyljhpof98-68-9089 14:48-0400Body ioavaw774.4 cmElloyd Bowles MD Work Phone: [phone] [place], [place] [address]Qvmufpcbdy21-53-7260 14:48-0400Body mass index (BMI) [Ratio]37.07 kg/c3HuxdusKhoa Bowles MD Work Phone: [phone] [place], [place] [address]Svbwezgeqm83-96-2598 14:48-0400Body .46 kgKhoa Bowles MD Work Phone: [phone] [place], [place] [address]Rrmadzgmav08-42-4607 14:48-0400Diastolic blood oilzkkrz95 mm[Hg]Khoa Bowles MD Work Phone: [phone] [place], [place] [address]Putgsgntjz51-61-7249 14:48-0400Heart rate68 /min Khoa Bowles MD Work Phone: [phone] BransonIgoxalalee74-70-2849 14:48-9143LaQ7% (BldA) [Mass fraction]97 %Khoa Bowles MD Work Phone: [facility]ansonDslgrbisoj54-77-0954 14:48-0400Systolic blood blmfnohx173 mm[Hg]Khoa Bowles MD Work Phone: [facility]ansonAplceomqcy32-58-2777 13:00-0400Body .4 cmTiffanie Enrique DPM Work Phone: [facility]ansonKlrjtavmoi82-63-6486 13:00-0400Body mass index (BMI) [Ratio]37.07 kg/h6VvqvqrqTiffanie Enrique DPM Work Phone: [facility]ansonIzgycofhxs86-75-1543 13:00-0400Body qfcofn884.46 kgTiffanie Enrique DPM Work Phone: [phone]ansonRstoimwppe89-29-2206 07:40-0400Body gfotdp059.4 cmElloyd Bowles MD Work Phone: [facility]ansonNdcjrrltnq83-90-1294 07:40-0400Body mass index (BMI) [Ratio]37.07 kg/z6HrsemzKhoa Bowles MD Work Phone: [facility]ansonTwgerzxaiq92-72-4653 07:40-0400Body kgjyfb336.46 kgKhoa Bowles MD Work Phone: [facility]ansonTuhqbozecy55-09-4207 13:48-0500Body ezjpbb600.4 cmTiffanie Enrique DPM Work Phone: [facility]ansonBxsnlfjwjm90-33-6715 13:48-0500Body mass index (BMI) [Ratio]37.07 kg/f9PhzijelTiffanie DAMONM Work Phone: [phone] [place], [place] [address]Ziiaxqjdfk97-15-3185 13:48-0500Body voziwx780.46 kgTiffanie Enrique DPM Work Phone: [phone] [place], [place] [address]Ggpinhjohe45-19-4184 10:47-0500Blood Pressure LocationPakelley WOOD [facility]02-17-2025 10:47-0500Body mcnshuabwwo10.6 [degF]Madison WOOD [facility]02-17-2025 10:47-0500Diastolic blood tsinkufh42 mm[Hg]Madison WOOD [facility]02-17-2025 10:47-0500Heart rate62 /minPatrick WOOD [facility]02-17-2025 10:47-0500Respiratory rate16 /minPatrick WOOD [facility]02-17-2025 10:47-0500Systolic blood xkpjxaeh135 mm[Hg]Madison WOOD [facility]11-14-2024 14:55-0500Body yehjqz156.4 cmTiffanie Enrique DPM Work Phone: [phone] [place] [address]-14-2024 14:55-0500Body mass index (BMI) [Ratio]37.07 kg/l3CrlaabwTiffanie Enrique DPM Work Phone: [phone] [place] [address]-14-2024 14:55-0500Body kufcfo812.46 kgChrisabhishek Enrique DPM Work Phone: [phone] BransonLrhgzbjduf57-39-9578 13:06-0500Blood Pressure LocationPatrick WOOD [facility]11-04-2024 13:06-0500Diastolic blood mm[Hg]Madison WOOD [facility]11-04-2024 13:06-0500Heart rate58 /minPatrick WOOD [facility]11-04-2024 13:06-0500Respiratory rate18 /minPatrick NINA [facility]11-04-2024 13:06-0500Systolic blood bnbmmuap108 mm[Hg]Madison WOOD [facility]10-08-2024 12:34-0400Body kjbeuz471.4 Qiana Hampton PA Work Phone: [facility]ansonJpnecdondb76-95-9823 12:34-0400Body mass index (BMI) [Ratio]37.07 kg/m2Yaquelin Hampton PA Work Phone: [facility] CenterDoyaxzjeai04-84-4078 12:34-0400Body gyepku994.46 kgYaquelin Hampton PA Work Phone: [facility] CenterUzexfckurc66-97-2389 12:34-0400Diastolic blood gvqbbcto66 mm[Hg]Yaquelin Hampton PA Work Phone: [phone] CenterYqqavthabj92-81-6068 12:34-0400Heart rate52 /min Yaquelin Hampton PA Work Phone: [facility] CenterHbonfajfou35-77-4841 12:34-0400Respiratory rate16 /minYaquelin Hampton PA Work Phone: [facility] CenterGvlwoaiefi66-27-7331 12:34-7252OqK5% (BldA) [Mass fraction]99 %Yaquelin Hampton PA Work Phone: [facility] CenterAhbmlpjazl59-04-7078 12:34-0400Systolic blood whammxgv854 mm[Hg]Yaquelin Hampton PA Work Phone: [facility] CenterZueehmaoec74-79-6955 15:43-0400Body vemfsq237.4 Margie Guzmán [employer]CASE ASSEMBLER Work Phone: [facility] CenterAyfwjrwxjr13-46-1706 15:43-0400Body mass index (BMI) [Ratio]37.34 kg/i2MkmateYumiko Guzmán KEYCASE ASSEMBLER Work Phone: [facility] CenterQvihvsidya84-88-2730 15:43-0400Body .37 kgYumiko Guzmán KEYCASE ASSEMBLER Work Phone: [facility] CenterZkleclqqdu90-82-3206 15:43-0400Diastolic blood bydfrghw07 mm[Hg]Yumiko Guzmán KEYCASE ASSEMBLER Work Phone: [facility] CenterIrlpnjdzmb56-96-4973 15:43-0400Heart rate69 /min Yumiko Guzmán KEYCASE ASSEMBLER Work Phone: [facility]ansonAysvjpjpnh64-45-7190 15:43-2705EpH5% (BldA) [Mass fraction]97 %Yumiko Wellsclifford KEYCASE ASSEMBLER Work Phone: [facility]ansonQpahksdwni79-67-6457 15:43-0400Systolic blood bpteyeau738 mm[Hg]Yumiko Wellsclifford KEYCASE ASSEMBLER Work Phone: [facility]ansonNgbzqswabi94-49-2670 11:01-0500Body dslfpa677.5 cmJeabhishek Enrique DPM Work Phone: [facility]ansonRwuaboxwgt57-91-1741 11:01-0500Body mass index (BMI) [Ratio]36.87 kg/a0AxjutntTiffanie Enrique DPM Work Phone: [facility]ansonGbqkesgnhs70-14-9365 11:01-0500Body gmfnmy798.81 kgTiffanie Enrique DPM Work Phone: [facility] BransonEijbnlolof05-35-0449 13:32-0400Blood Pressure LocationPatrick WOOD [facility]09-20-2023 13:32-0400Diastolic blood bjgykwnd43 mm[Hg]Madison WOOD [facility]09-20-2023 13:32-0400Heart rate54 /minMadison WOOD [facility]09-20-2023 13:32-0400Systolic blood uldbpvvm019 mm[Hg]Madison WOOD [facility]03-07-2023 10:47-0500Blood Pressure LocationMadison WOOD [facility]03-07-2023 10:47-0500Diastolic blood mm[Hg]Madison WOOD [facility]03-07-2023 10:47-0500Heart rate58 /minMadison WOOD [facility]03-07-2023 10:47-0500Systolic blood mm[Hg]Madison WOOD [facility] Encounters Encounter DateEncounter TypeCare ProviderFacilityStart: 07-26-2025 End: 12-83-3605bmslmjmvwpYSBLCMJKings[facility] PPGStart: 07-24-2025 End: 48-03-8591pfskatbdlzOjevegp M Natasha SPANN Work Phone: [facility] Work Phone: Start: 07-24-2025 End: 48-97-7304Gvwrhuy encounter procedureNicjan Mohan DO-[facility] Work Phone: Start: 07-19-2025 End: 97-62-5443Yyqzis outpatient visit 25 minutesKhoa Bowles MD Work Phone: [phone] Wood StreetComment on above: Syncope, unspecified syncope type (Primary Dx); Right bundle branch block; Vertigo; Encounter for examination following treatment at hospital; Morbid obesity due to excess calories ([facility]); Lymphedema of both lower extremitiesStart: 07-19-2025 End: 52-33-6458daitgfdnpwEJWTFC J HEMEYERNot AvailableStart: 07-19-2025 End: 70-11-7611Rryykx flowsheetKhoa Bowles MD Work Phone: [phone] [address] Streettart: 07-19-2025 End: 02-87-6717Kmvkfd Yony Bowles MD Work Phone: [facility] MedicineStart: 07-13-2025 End: 21-45-2156Bxipsmqbm department patient Adi Bowles MD Work Phone: [phone]-Ikuywarmy Room Work Phone: Start: 07-12-2025 End: 82-54-6548Cfmvfx flowsRj Enrique DPM Work Phone: [facility]iatryStart: 07-12-2025 End: 05-88-6725Ddgeuq Gaurav Enrique DPM Work Phone: [facility]iatryStart: 07-12-2025 End: 58-43-3917Dfpoerz encounter procedureTiffanie Enrique DPM Work Phone: [facility] PodiatryComment on above:Onychomycosis (Primary Dx); Type II or unspecified type diabetes mellitus with neurological manifestations, not 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) (HCC); Acquired keratodermaStart: 07-12-2025 End: 47-60-4186beghemhuwoUAKOBFM W CLARKENotad AvailableStart: 07-06-2025 End: 27-44-5131epxlkrafeoBUBSGCX L PERPRProChildren'S Hospital For Rehabilitationca [facility] HospitalStart: 06-30-2025 End: 31-01-6896Yuuoba Allen Bowles MD Work Phone: [facility] MedicineStart: 06-28-2025 End: 60-66-2975piqymelahjHPXPGYS L PERNERiverview Health Instituteca [facility] PPGStart: 06-27-2025 End: 36-35-2825stzldrqkujNDVHGHJ F OSMANProMedica Edwards HospitalStart: 26-01-2997hzqxxdlwhnVzrdykq R WATERSFacility:EU BellevueStart: 06-11-2025 End: 94-37-8231Jxwsnte encounter procedureMadison WOOD [facility] start: 05-22-2025 End: 49-88-2881dbrsfkvpgyTeuvuz J Hemeyer MD Work Phone: [facility] Work Phone: Start: 05-22-2025 End: 50-33-9024Zqiuddyy ReferredMadison Wood MD-LAB [facility] Start: 05-22-2025 End: 99-79-3286qzkuwoeaizFpvqqna R WATERSFacility:CD:[id number]: 05-07-2025 End: 83-94-4593Cbonlu flowsRick oBwles MD Work Phone: [facility] CI FM 100Start: 05-07-2025 End: 45-24-7462Kbdhgyelsa Bowles MD Work Phone: [facility] CI FM 100Start: 05-07-2025 End: 08-04-7249Udbnuqh encounter procedureKhoa Bowles MD Work Phone: [facility] [...] foot ulcer (CODE) (HCC); ThrombocytopeniaStart: 05-07-2025 End: 73-69-1774skprpkwlcrUZICHT J HEMEYERNot AvailableStart: 04-26-2025 End: 28-63-6432Hkruzr outpatient visit 25 minutesEdsilvana Bowles MD Work Phone: [facility] CI FM 100Comment on above:Primary hypertension ; Mixed hyperlipidemia ; Hyperuricemia; Microalbuminuria; Type 2 diabetes mellitus with diabetic microalbuminuria, with long-term current use of insulin ([facility]); Type 2 diabetes mellitus with diabetic polyneuropathy, with long-term current use of insulin ([facility]); Diabetic neuropathic arthropathy ([facility]); Lymphedema of both lower extremities; Chronic cellulitis; Polypharmacy; Morbid obesity due to excess calories ([facility])Start: 04-26-2025 End: 17-61-9504howigomxapZOREAX J HEMEYERNot AvailableStart: 04-24-2025 End: 07-44-8544Xselvntgd Result Kassandra Bowles MD Work Phone: [facility] External Department UnsolicitedStart: 04-24-2025 End: 77-57-4303Evjgkeaaf Result Kassandra Bowles MD Work Phone: n[facility] External Department UnsolicitedStart: 04-23-2025 End: 60-58-6183Nompuvf encounter procedureMadison Wood MD-[facility] Work Phone: Start: 04-23-2025 End: 12-30-9964itlcazkvmnTxqzcp J HemeyerFacility:[facility] Hospitaltart: 04-05-2025 End: 99-33-6912Kdgwai Gaurav Enrique DPM Work Phone: noms PODIATRYStart: 04-05-2025 End: 14-45-6914Dkljyv Gaurav Enrique DPM Work Phone: noms PODIATRYStart: 04-05-2025 End: 62-10-4485Xrobbks encounter procedureTiffanie DAMONM Work Phone: noms PODIATRYComment on above:Type II or unspecified type diabetes mellitus with neurological manifestations, not 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) ([facility]) (Primary Dx); Onychomycosis; Acquired keratoderma; CallusStart: 04-05-2025 End: 71-51-5129yktfwpfukhGNCVJBRRob Gay AvailableStart: 04-02-2025 End: 20-65-8015asocyaywceEtngkdz R WATERSFacility:EU BellevueStart: 04-02-2025 End: 16-21-7779Iatjsse encounter procedureMadison WOOD [facility] Maria R start: 03-15-2025 End: 71-95-2079Wpsqjiqzx Result EncounterGeneric External Data ProviderNOMS External Department UnsolicitedStart: 03-15-2025 End: 05-80-9440Tyxlrhedh Result EncounterGeneric External Data ProviderNOMS External Department UnsolicitedStart: 02-20-2025 End: 48-47-7779Tfivri Yony Bowles MD Work Phone: [facility] CI FM 100Start: 02-20-2025 End: 56-44-5414Jsgslc Yony Bowles MD Work Phone: [facility] CI FM 100Start: 02-20-2025 End: 82-19-0778Lnoeys outpatient visit 15 minutesEdsilvana Bowles MD Work Phone: [facility] CI FM 100Comment on above:Fall from standing, subsequent encounter; Skin tear of upper extremity; Bleeding; [facility]-20-[facility] End: 33-47-1697fdikjhfoebALWWIM J HEMEYERNot AvailableStart: 12-30-2024 End: 26-63-0887AsrfwlLsvwck J Hemeyer MD Work Phone: [facility] CI FM 100Comment on above:Other fci (current) drug therapyStart: 12-28-2024 End: 91-46-2949Vitjwa flowsheetTiffanie Enrique DPM Work Phone: noms PODIATRYStart: 12-28-2024 End: 65-54-5250Xwgrcy flowsRj Enrique DPM Work Phone: noms PODIATRYStart: 12-28-2024 End: 39-06-7744Ayygylm encounter procedureTiffanie Enrique DPM Work Phone: [facility] FH PODIATRYComment on above:Type II or unspecified type diabetes mellitus with neurological manifestations, not 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) ([facility]) (Primary Dx); Onychomycosis; Acquired keratodermaStart: 12-28-2024 End: 11-06-8130wnmmeyfbkyCRQAYWF W CLARKENot AvailableStart: 12-18-2024 End: 70-09-5997xrluicofgaPrjlfwx R WATERSFacility:EU BellevueStart: 12-18-2024 End: 74-73-7698Cvtkjnx encounter procedurePakelley WOOD [facility] start: 12-13-2024 End: 38-65-0648VqicfsEjmqhv J Hemeyer MD Work Phone: [facility] CI FM 100Comment on above:Type 2 diabetes mellitus with hyperglycemia, without long-term current use of insulin ([facility]) Start: 11-18-2024 End: 82-83-2337Kkwpajcdy Result EncounterGeneric External Data ProviderNOMS External Department UnsolicitedStart: 11-18-2024 End: 61-03-8243Egtxleykz Result EncounterGeneric External Data ProviderNOMS External Department UnsolicitedStart: 11-11-2024 End: 84-05-5149GchqzwSldgsy J Hemeyer MD Work Phone: [facility] CI FM 100Comment on above:Type 2 diabetes mellitus with hyperglycemia, without long-term current use of insulin ([facility]) Start: 10-31-2024 End: 10-52-9753Mtagdv flowsRick Bowles MD Work Phone: [facility] CI FM 100Start: 10-31-2024 End: 14-53-2948Jmziie Yony Bowles MD Work Phone: [facility] CI FM 100Start: 10-31-2024 End: 76-81-8743Uoxntm outpatient visit 25 minutesKhoa Bowles MD Work Phone: [facility] CI FM 100Comment on above:Diabetic neuropathic arthropathy (CMS/HCC) (Primary Dx); Polyneuropathy due to type 2 diabetes mellitus (CMS/HCC); Primary hypertension (CMS/HCC); Peripheral venous insufficiency; Diabetic nephropathy associated with type 2 diabetes mellitus (HCC) (CMS/HCC); Type 2 diabetes mellitus with hyperglycemia, without long-term current use of insulin ([facility]/HCC); Mixed hyperlipidemia (CMS/HCC); Essential hypertension ([facility]/HCC); Lymphedema of both lower extremities; Chronic cellulitisStart: 10-31-2024 End: 62-65-4465ggdwdktlgaOETLRV J HEMEYERNot AvailableStart: 10-26-2024 End: 66-53-4856Jrgxoomfb Result EncounterEdsilvana Bowles MD Work Phone: n[facility] External Department UnsolicitedStart: 10-26-2024 End: 13-94-6772Hyjyamceu Result Kassandra Bowles MD Work Phone: n[facility] External Department UnsolicitedStart: 10-16-2024 End: 19-42-4516YuwmiwHugfdv J Hemeyer MD Work Phone: [facility] CI FM 100Comment on above:Diabetic nephropathy associated with type 2 diabetes mellitus (HCC) (CMS/HCC)Start: 09-14-2024 End: 18-54-8417Vjfgtjq encounter procedureTiffanie Enrique DPM Work Phone: noms PODIATRYComment on above:Type II or unspecified type diabetes mellitus with neurological manifestations, not 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) ([facility]/HCC) (Primary Dx); Onychomycosis; Acquired keratodermaStart: 09-14-2024 End: 45-84-3833gorlrzxtteTPSSZLA W CLARKENot AvailableStart: 09-14-2024 End: 02-06-5686Dqkeei flowsRj Enrique DPM Work Phone: n[facility] PODIATRYStart: 09-14-2024 End: 08-97-3360Oypxad Gaurav Enrique DPM Work Phone: [facility] PODIATRYStart: 09-04-2024 End: 95-33-2397lzhgvdylzoFxadjhz R WATERSFacility:EU BellevueStart: 09-04-2024 End: 21-80-1830Nswitjz encounter procedurePakelley Crespo WOOD [facility] Maria R start: 09-02-2024 End: 51-90-5912Zpbpqicyu Result EncounterGeneric External Data ProviderNOMS External Department UnsolicitedStart: 09-02-2024 End: 58-12-4560Mwmqosyne Result EncounterGeneric External Data ProviderNOMS External Department UnsolicitedStart: 08-31-2024 End: 88-44-9777Gqehchqgw Result EncounterGeneric External Data ProviderNOMS External Department UnsolicitedStart: 08-31-2024 End: 75-60-0801Suzqylsir Result EncounterGeneric External Data ProviderNOMS External Department UnsolicitedStart: 08-08-2024 End: 37-45-9119Giwspy Vanessa MULLINS Work Phone: noms NE NEUROStart: 08-08-2024 End: 17-21-6804Kujlws Vanessa MULLINS Work Phone: NOIX NE NEUROStart: 08-08-2024 End: 02-67-7899Nrzneu outpatient visit 15 minutesYaquelin MULLINS Work Phone: noms NE NEUROComment on above:Polyradiculopathy (Primary Dx); PolyneuropathyStart: 08-08-2024 End: 29-18-3213mfuqkqsfdnIGTW HILLNot AvailableStart: 07-26-2024 End: 20-90-2572Dholjm outpatient visit 25 minutesYumiko Guzmán NP Work Phone: [facility] [place] ROUTEComment on above:Obstructive sleep apnea syndrome (Primary Dx); Snoring; Obesity (BMI 30-39.9); HypersomniaStart: 07-26-2024 End: 16-46-3017puyybyhwdbXYUUWC GILLMORNot AvailableStart: 07-26-2024 End: 26-03-7235Xrgrpe flowsheetYumiko Wellsclifford KEYCASE ASSEMBLER Work Phone: [facility] ROUTEStart: 07-26-2024 End: 19-71-8042Unvxgw flowsKelin Wellsclifford KEYCASE ASSEMBLER Work Phone: n[facility] ROUTEStart: 07-26-2024 End: 54-11-1365irthlimypmOtkwwyr R NINAFacility:EU [place]Start: 07-26-2024 End: 76-00-4011Oyjuaud encounter procedurePakelley WOOD [facility] Start: 07-24-2024 End: 46-62-5325Ismlaesnq Kassandra Bowles MD Work Phone: [facility] 100Comment on above:Care CoordinationStart: 03-22-2024 End: 82-65-4409Scvuvxhmf Result EncounterGeneric External Data ProviderNOMS External Department UnsolicitedStart: 03-22-2024 End: 12-46-6899Glrxxutrp Result EncounterGeneric External Data ProviderNOMS External Department UnsolicitedStart: 12-09-2023 End: 75-03-7844Kcxzloh encounter procedureJeabhishek Enrique DPM Work Phone: NOMS FH PODIATRYComment on above:Type II or unspecified type diabetes mellitus with neurological manifestations, not 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) (CMS/[facility]) (Primary Dx); Onychomycosis; Hallux limitus, left; Acquired keratodermaStart: 08-05-2023 End: 91-18-8396ypatccowgbFL Khoa Bowles Work Phone: [facility] Work Phone: Start: 08-05-2023 End: 37-69-8233Jvboukb encounter procedureMD Khoa Bowles Work Phone: [facility]-[address] Work Phone: Start: 07-21-2023 End: 63-26-6417Klusqzp encounter procedurePakelley WOOD [facility] Start: 23-12-7937crznablpvbEL KHOA BOWLES . Facility:S0Phgyi: 02-04-2023 End: 59-34-1208yyohcojrpgGD PATRICK WATERS .Facility:A6Zsrho: 01-14-2023 End: 41-43-3729prqxphtmttPL MADISON WOOD .Facility:Z1Byvsd: 01-12-2023 Encounter for other preprocedural examinationDR MADISON WOOD .[facility] 47-08-4317Siafunrqw for preprocedural cardiovascular examination DR MADISON WOOD .[facility]: 53-25-7282Wbdztydmn for preprocedural laboratory examinationDR MADISON WOOD .[facility] Start: 01-08-2023 End: 09-83-2635okttoabafcOH PATRICK WATERS .Facility:L8Pkvjc: 01-08-2023 End: 56-24-8158Tlootywnv for preprocedural laboratory examinationDR MADISON WOOD .Facility:X6Lkbch: 01-05-2023 End: 26-27-8005Vujpzzu encounter procedurePakelley WOOD [facility] Start: 12-31-2022 End: 70-49-1459gnpxpuotqiYG KHOA HEMESONJA .Facility:W5Bwlec: 11-02-2022 ambulatoryDR EDSILVANA HEMESONJA .Facility:S4Kdpef: 09-21-2022 End: 37-24-6969Dszwmvs encounter procedurePatricvincent WOOD [facility] start: 09-09-2022 End: 56-10-1212ntqtozqxouME PATRICK WATERS .Facility:G7Gbmmr: 08-06-2022 End: 01-53-2346ntluwnjdsmTC KHOA BOWLES .Facility:R0Jxgfp: 05-05-2022 End: 32-39-6029ayiwdvfbgdGX KHOA BOWLES .Facility:L2Lkqjt: 04-03-2021 End: 97-25-7216Amipulv encounter procedureKhoa Bowles Work Phone: -Pre-Surgical TestingStart: 02-11-2021 End: 13-87-6666Cncmdvo encounter procedureEdsilvana Bowles Work Phone: -Lab Main CampusStart: 01-10-2021 End: 95-46-2299Pxtmoci encounter procedureEdsilvana Bowles Work Phone: -[address] Procedures DateProcedureProcedure DetailPerforming ClinicianStart: 80-94-5550EV angiography of headEdsilvana Bowles MD Work Phone: Start: 45-59-7867NY angiography of neck vesselsEdsilvana Bowles MD Work Phone: Start: 18-28-2371CN of head without contrastEdsilvana Bowles MD Work Phone: Start: 45-05-8342JPN HEMOGLOBIN J8KClbrxtKhoa Bowles MD Work Phone: Start: 52-83-3832YKD MICROALB CREAT RATIO RANDOMKhoa Bowles MD Work Phone: Start: 18-00-0453MQ prostate wo/w Yadira Bowles MD Work Phone: Start: 15-86-8346GWJT PSA, DIAGNOSTICGeneric External Data ProviderStart: 45-31-2953SA ANKLE LT WO CONGeneric External Data Provider Start: 14-58-5050GNT CMP (CMP) (FOR REMOTE [facility] USE)Khoa Bowles MD Work Phone: Start: 27-88-8264MZ ABDOMEN 1VGeneric External Data ProviderStart: 79-57-8274BKIH PSA, DIAGNOSTICGeneric External Data Provider Start: 40-15-4100CX EXT VENOUS REFLUX ROSE MARY LMTDGeneric External Data Provider Start: 94-19-0217DD pre/post mri xrayMD Khoa Bowles Work Phone: Start: 89-77-3800BV lumbar spine wo conMD Khoa Bowles Work Phone: Start: 45-70-3688Rrbgeplyixrxmb shockwave lithotripsy of calculus of kidneyPatrick WOOD Start: 49-53-8411EAV screeningDR MADISON NINA . Comment on above:Performed By: #### PT, PTT #### [facility] [address] [place] [address] Dr. [place] Jean-Baptisteart: 88-38-1028OKS screeningDR MADISON NINA .Comment on above:Performed By: #### PSAD #### [facility] [address] [place] [address] Dr. [place] Jean-Baptisteart: 99-16-8314XIX of lumbar spine with Nida Bowles Work Phone: Start: 35-46-8630L-ray of lumbar spine, four views Khoa Bowles Work Phone: Start: 28-69-5622QzzaldzdjqdZjijfje Clarke DPM Work Phone: Start: 89-53-2359FhzbglvwivYfvtufs Misoca Start: 96-30-2810Coewsrb of calculus of renal pelvis through percutaneous nephrostomyPatrick WOOD Start: 41-79-5850Genhqoe of calculus of renal pelvis through percutaneous nephrostomyPatrick WOOD Start: 28-13-6363Oyligihtmmz extraction of ureteric calculus without disintegrationPatrick WOOD Start: 59-89-0236Rkkbyhlgbyx extraction of ureteric calculus without disintegrationPatrick WOOD Start: 61-13-9120Zkmfujssobi insertion of ureteric stentMadison WOOD Start: 48-30-2117Ulebvtarjbv removal of ureteric stent Madison WOOD Start: 12-29-5267Sfsktfwtrit extraction of ureteric calculus without disintegrationMadison WOOD ankle region structure (body structure)Madison WOOD Back structure, excluding neck (body structure)Madison WOOD Capsulotomy of lensMadison WOOD Cataract (disorder)Madison WOOD Cellulitis (disorder)Madison WOOD ColonoscopyMadison WOOD History of - varicose veins (context-dependent category)Madison WOOD History of hernia repairMokelley WOOD Rotator cuff including muscles and tendons (body structure)Madison WOOD Plan of Treatment DateCare ActivityDetailAuthorStart: 75-37-1991Wftlapth screeningDiabetes: Retinopathy ScreeningNOMI HealthcareStart: 26-44-8352Iytsegkwb for malignant neoplasm of colonNOMI HealthcareStart: 07-07-2026Medicare Annual Wellness (AWV) Medicare Annual Wellness (AWV)[facility] HealthcareStart: 91-23-3092Xacxgxdcy vaccinationInfluenza Vaccine (#1)[facility] HealthcareComment on above:Postponed from 07/02/2025 (Patient Refused)Start: 17-43-8690Ohsuv screening for protein Diabetes: Urine Protein ScreeningNOMI HealthcareStart: 22-22-3540Ntneelgy screeningDiabetes: Retinopathy ScreeningNOMI HealthcareStart: 10-24-2025 Hemoglobin A1c measurementDiabetes: Hemoglobin E4FBNQV HealthcareStart: 10-22-2025 End: 31-56-8706Scbenmb encounter procedureNOMS [facility] 100Start: 10-11-2025 End: 28-60-0845Moaqaef encounter qubrrijcc16/11/2025 10:45 AM EST Procedure [facility] [address] [place] [phone] Tiffanie Enrique, DPM [address] [place] [address] DIMASPatrick Millert PodiatryStart: 09-26-2025 End: 19-58-7338Eejzigonlmspl metabolic 2000 panel - Serum or PlasmaComprehensive metabolic panel Lab Routine Primary hypertension Type 2 diabetes mellitus with diabetic microalbuminuria, with long-term current use of insulin (HCC) Type 2 diabetes mellitus with diabetic polyneuropathy, with long-term current use of insulin (HCC) Diabetic neuropathic arthropathy (HCC) Expected: 09/26/2025 (Approximate), Expires: 04/26/2026[facility] Work Phone: Comment on above:Expected: 09/26/2025 (Approximate), Expires: 04/26/2026Start: 09-26-2025 End: 91-18-7199Kcqqrgrutf A1c/Hemoglobin.total in BloodHemoglobin A1c Lab Routine Type 2 diabetes mellitus with diabetic microalbuminuria, with long-term current use of insulin (HCC) Type 2 diabetes mellitus with diabetic polyneuropathy, with long-term current use of insulin (HCC) Diabetic neuropathic arthropathy (HCC) Expected: 09/26/2025 (Approximate), Expires: 04/26/2026NOMI HealthcareComment on above:Expected: 09/26/2025 (Approximate), Expires: 04/26/2026Start: 09-26-2025 End: 00-67-6392Bnrya 1996 panel - Serum or PlasmaLipid panel Lab Routine Primary hypertension Mixed hyperlipidemia Expected: 09/26/2025 (Approximate), Expires: 04/26/2026[facility] HealthcareComment on above:Expected: 09/26/2025 (Approximate), Expires: 04/26/2026Start: 09-26-2025 End: 49-75-1487Tppwf [Mass/volume] in Serum or PlasmaUric acid Lab Routine Hyperuricemia Expected: 09/26/2025 (Approximate), Expires: 04/26/2026NOMI HealthcareComment on above:Expected: 09/26/2025 (Approximate), Expires: 04/26/2026Start: 07-24-2025 End: 25-93-9532Jqmjgxs encounter procedureNOMS MARIA [address] NICOLE ROUTEStart: 07-19-2025 End: 38-28-0643Rdphviv encounter mdtwqcppy45/18/2025 4:30 PM EDT Office Visit [facility] [place] [address] Family Medicine [address] [address] Khoa Bowles MD [address] [address] Encounter for examination following treatment at hospital; Vertigo; Morbid [facility] due [facility] [address]Comment on above:Encounter for examination following treatment at hospital; Vertigo; Morbid obesity due to excess calories ([facility])Start: 07-19-2025 End: 56-84-4277Amppmw monitor studyHolter monitor Imaging Routine Syncope, unspecified syncope type Right bundle branch block Expected: 07/19/2025 (Approximate), Expires: 07/19/2026[facility] Work Phone: Comment on above:Expected: 07/19/2025 (Approximate), Expires: 07/19/2026Start: 07-12-2025 End: 48-79-4334Cvjfufe encounter procedureNOMS PODIATRYComment on above: ArrivedStart: 58-59-9830Nxaaqnptf vaccinationInfluenza Vaccine (#1)[facility] HealthcareStart: 93-18-6809EqtpwtswwMarion Hospitaltart: 05-07-2025 End: 91-44-5681Wohbdpv encounter procedureNOMS [facility] 100Comment on above: Encounter for Medicare annual wellness exam; Advance directive in chart; Encounter for screening for other disorder; Screening for alcohol problemStart: 04-26-2025 End: 01-81-1070Xejynsf encounter gkvowenrh29/26/2025 3:00 PM EDT Office Visit [facility] [address] [place] [address] [place] [address] Khoa Bowles MD [address] [place] [address] (Fax)[facility] CI FM 100Start: 05-78-2401Dnwfjqwfxt A1c measurementDiabetes: Hemoglobin J6OXGIY HealthcareStart: 04-24-2025 End: 66-38-7783Ztdlhvb encounter procedureNOMS BNS FMStart: 04-05-2025 End: 09-20-0624Edmzhwm encounter procedureNOMS FH PODIATRYComment on above: ArrivedStart: 06-03-2025Medicare Annual Wellness (AWV)Medicare Annual Wellness (AWV)NOMS HealthcareStart: 02-20-2025 End: 17-60-9112Eghjara encounter memmlfqzc98/22/2025 8:00 AM EDT Office Visit [facility] [address] [facility] [address] [place] [address] Khoa Bowles MD [address] [place] [address] (Fax) Encounter for examination following treatment at [facility] CI FM 100Comment on above:[facility]: 01-22-2025 End: 11-24-2662Niigffl encounter procedureNOMS NE NEUROStart: 12-28-2024 End: 41-71-4139Kxowsea encounter procedureNOMS FH PODIATRYComment on above: ArrivedStart: 10-31-2024 End: 84-57-4227Azpueiw encounter procedureNOMS CI FM 100Comment on above:Arrived Start: 09-14-2024 End: 68-42-6745Umysfxc encounter /14/2024 3:00 PM EST Procedure Visit [facility] [address] [place] [phone] Tiffanie Enrique, DPM [address] [place], [place] [address] NOM[facility] FH PODIATRYStart: 08-08-2024 End: 66-11-5917Uzsfizy encounter procedureNOMS NE NEUROComment on above:Arrived Start: 07-26-2024 End: 64-32-4844Ndbqoik encounter procedureNOMS MARIA R STATE ROUTEComment on above:ArrivedStart: 25-80-1830Avccjmvfr vaccinationInfluenza Vaccine (#1)NOMS HealthcareStart: 40-24-5688Nsojixaa screeningDiabetes: Retinopathy ScreeningNOMI HealthcareStart: 03-09-2024 End: 30-97-4025Ufplbvv encounter /09/2024 1:00 PM EDT [facility] [address] [place] [phone] Tiffanie Enrique, DPM [address] [place] [address] [facility] PODIATRYStart: 04-24-2024Medicare Annual Wellness (AWV)Medicare Annual Wellness (AWV)NOM HealthcareStart: 02-03-2024 End: 72-29-7827Smbjslz encounter buieqljmb02/04/2024 11:30 AM EDT [facility] [address] [place] [address] Khoa Bowles MD [address] [place] [address] [facility] FMStart: 64-62-8858Euqrvwpzcc A1c measurement Diabetes: Hemoglobin L7FZQDQ HealthcareStart: 02-61-3814Xtary screening for proteinDiabetes: Urine Protein ScreeningNOMI HealthcareStart: 21-33-1645Izwmq screening for proteinDiabetes: Urine Protein ScreeningNOMI HealthcareStart: 26-32-6454Jblilkivi for malignant neoplasm of colonNOMS HealthcarePatient EducationVertigo - ED discharge instructionsMercy Health [facility]tr Work Phone: Patient referralMercy Health Anderson Hospital [facility]tr Work Phone: Immunizations Immunization DateImmunizationNotesCare ZanbbtryWpxzjuni28-89-4823kxcmoau toxoid, reduced diphtheria toxoid, and acellular pertussis vaccine, adsorbedKhoa Bowles MD Work Phone: [facility] BransonItoiyzvfyf22-21-7854bacobucml, high dose seasonal, preservative-freeKhoa Bowles MD Work Phone: [facility]ansonRbcqxppjqc05-89-9980skdejoolr virus vaccine, unspecified formulationKhoa Bowles MD Work Phone: [facility]12-14-2023Influenza, Seasonal, Quadrivalent, AdjuvantedTiffanie Enrique DPM Work Phone: [facility]ansonYqsemshgdv58-38-7724pqjnopfbv virus vaccine, unspecified formulationKhoa Bowles MD Work Phone: [facility]11-09-2022SARS-CoV-2 (COVID-19) mRNAMUL.ORD!t94461Yzgocyw WOOD [facility] [place] 877741-03-2022influenza virus vaccine, unspecified formulationSusannaZUCHEMvincent WOOD [facility] [place] 877741-03-2022Influenza, High-dose Seasonal, Quadrivalent, Preservative Free Tiffanie Enrique DPM Work Phone: [facility]ansonEazpyfpdqf86-20-3705UDOE-BoP-1 (COVID-19) mRNA- 1273 vaccinePaZUCHEMvincent Misoca [facility] [place] 877741-25-2021Moderna SARS-CoV-2 Booster VaccinationTiffanie Enrique DPM Work Phone: [facility]ansonDxnirryfys92-91-4786vlnyyajts virus vaccine, unspecified formulationSusannaTransatomic Power Corporation [facility]y10-22-2021Influenza, Seasonal, Quadrivalent, AdjuvantedJessica Enrique DPM Work Phone: [facility]ansonKsajzdlhza88-80-8424pgxzauihi virus vaccine, unspecified formulationPatrick WOOD [facility]03-27-2021COVID-19 mRNA-1273 (Moderna)Khoa Bowles Work Phone: [facility]03-27-2021SARS-CoV-2 (COVID-19) Ad26 vaccine, recombinantPaTransatomic Power Corporation [facility]03-02-2021pneumococcal conjugate vaccine, 13 valKyle Bowles MD Work Phone: [facility]ansonCilydikgqh76-90-2317FILJA-21 mRNA-1273 (Moderna) Khoa Bowles Work Phone: [facility] Hospitalomment on above:Result Comment: 2023-01-05: JOO6787-41-5699wubilnbxd virus vaccine, unspecified formulationPatrick WOOD [facility]y10-06-2020Influenza, Seasonal, Quadrivalent, AdjuvantedJessica Haja DPM Work Phone: [facility]ansonHyrlqlwskl74-72-4666iavjggrzs virus vaccine, unspecified formulationPatrick WOOD [facility]y11-04-2019influenza, high dose seasonal, preservative-freeJessica Enrique DPM Work Phone: [facility]ansonUjstysozeh43-87-0804vpxzflfjj virus vaccine, unspecified formulationPatrick WOOD [facility]y10-19-2018influenza, high dose seasonal, preservative-freeJessica Enrique DPM Work Phone: [facility]ansonEbhpwxwwkx88-88-1315lxlcalkoq virus vaccine, unspecified formulationPatrick WOOD [facility] [place] 877741-06-2017influenza, high dose seasonal, preservative-freeJessica Enrique DPM Work Phone: [facility]ansonChefcfounp86-52-2197oraowvsclclk polysaccharide vaccine, 23 valentPatrick WOOD [facility]y10-18-2017influenza virus vaccine, unspecified formulationPatrick WOOD [facility]y10-17-2016influenza virus vaccine, unspecified formulationMoZUCHEMk Misoca [facility]y10-17-2016influenza, high dose seasonal, preservative-freeChrisssica Enrique DPM Work Phone: [facility]ansonEfzboswpzx76-25-4960jxyqrflwuuig conjugate vaccine, 13 valentPatrick WOOD [facility]y10-22-2015zoster vaccine, livePatrick WOOD [facility] [place] 877740-17-2015influenza, seasonal, injectable, preservative freeChrisssica Enrique DPM Work Phone: [facility]ansonQeeqrawkyk76-27-3787vhrlzmrwr virus vaccine, unspecified formulationPatrick WOOD [facility]y04-23-2012pneumococcal polysaccharide vaccine, 23 valentJessica Enrique DPM Work Phone: [facility]ansonIcbxgfbpyd88-98-0877thapntnskytg polysaccharide vaccine, 23 valSonali WOOD [facility] [place] Payers DatePayer CategoryPayerPolicy [id number] 2016Medicare [id number] Health Insurance [id number] [id number] Health [id number] [id number]-95z0k1g1706081-08-6064Ymoi-ymc j0948j9d-4144-290q-6811-7u8366673w8109-13-1146Elvzurx6699237 2.0.1.932015.3.579.2.84909-35-6776Jaeinwy9789443 2.0.1.164044.3.579.2.69454-59-8768Egexnlu5800639 2.840.1.264843.3.579.2.10095-00-7370Ybllmib7667867 2.16840.1.425004.3.579.2.65970-57-6163Qrtyjla5526580 2.16840.1.646021.3.579.2.02987-15-5716Ounfyuq7567312 2.16840.1.217481.3.579.2.22135-84-8585Mlxgjkh4982424 2.16840.1.925747.3.579.2.30930-71-0314Ifrdksp9380122 2.16840.1.089334.3.579.2.70851-77-7177Znwmcxn0346803 2.16.840.1.834107.3.579.2.32938-13-5571Kvcydnj0793974 2.16.840.1.765033.3.579.2.32359-15-9192Wbgyhqk24854976 2.16.840.1.506078.3.579.2.89838-85-1362Qadoiqi07704477 2.16.840.1.983317.3.579.2.05082-23-3063Wyvejkt69242398 2.16840.1.933982.3.579.2.56519-23-6487Meuxnzq27747360 2.16840.1.770139.3.579.2.64744-77-1134Spssoak36200323 2.840.1.722405.3.579.2.86086-40-0933Nnbhztb99881257 2.16840.1.608402.3.579.2.34339-51-4280Pusawzl416812172 2.16840.1.547054.3.579.2.013685-33-4811Hpkngzt495100138 2.840.1.672519.3.579.2.529498-77-8827Sbocjmc757867588 2.16840.1.706778.3.579.2.599040-73-9530Hkfumfz60966524 2.16840.1.092887.3.579.2.539777-90-2185Beceoyr76387637 2.16840.1.990599.3.579.2.454938-15-8865Xnadmcz33455778 2.16840.1.474560.3.579.2.326773-50-0013Svawumw41709688 2.16.840.1.380748.3.579.2.690984-15-1958Mvoptup73854596 2.0.1.948041.3.579.2.655867-83-5240Ckjbtbw9096934 2.0.1.865349.3.579.2.417138-43-7857Tvzjjlr4318963 2..1.531103.3.579.2.486383-28-4359Tzflzll4834846 2..1.969324.3.579.2.734530-94-1152Koztooo5288237 2.0.1.330866.3.579.2.813294-30-1001Wjldxhy1187384 2..1.004137.3.579.2.327642-52-2704Axsnrrz2954629 2..1.500941.3.579.2.205112-12-7316Hctupyt019046515 2..1.566239.3.579.2.438989-34-9442Cpagldg491299786 2.0.1.461287.3.579.2.6221FkfgpzoFQX901F68162 s9881r80-p68a-7so3-vh08-ml71929n0ns1Bpotrzu01755074 2.0.1.579012.3.579.2.964Mauoquv68339038 2.0.1.775813.3.579.2.531 Xtyzxed50791039 2.0.1.734146.3.579.2.531 Social History DateTypeDetailFacilityStart: 04-03-2021 End: 92-24-5945Xmfilhx smoking status NHISNever smoked tobacco (finding)[facility] Hospitaltart: 48-94-8590Jzd [facility] At [facility] CenterStart: 20-86-5374Bbhqpsn smoking statusNeverPremier Health [facility] CenterStart: 12-09-2023 End: 45-49-1102Rut Assigned At [facility] CenterStart: 12-09-2023 End: 38-05-3343Wmzejbb intakeLifetime non-drinker (finding)[facility] HealthcareStart: 12-09-2023 End: 61-01-2041Ikxfuaa of Social functionNOMI HealthcareStart: 54-93-5158Lurkope CommentCaffeine intake: noneNOMI HealthcareStart: 11-65-0980Onm Assigned At [facility] HospitalNot on fileST. MARK'S HOSPITAL HealthcareSexual OrientationExec[facility] start: 26-88-3101ZsvChgg (finding)[facility] SystemHow often do you need to have someone help you when you read instructions, pamphlets, or other written material from your doctor or pharmacy [SILS]NeverNOMS HealthcareDo you belong to any clubs or organizations such as confucianism groups, unions, fraternal or athletic groups, or [...] Original TextEquipment IdentifierDates Discectomy, lumbarCOFLEX SIZE 10FDAStart: 67-71-1579Repmwnlrtl, lumbarCOFLEX SIZE 14FDAStart: 23-79-4807Tfcvbaqbmc, lumbarCOFLEX SIZE 14FDAStart: 11-23-2018 Discectomy, lumbarCOFLEX SIZE 10FDAStart: 70-62-0655Wvgogzyhdl, lumbarCOFLEX SIZE 14FDAStart: 24-19-5135Obntvcwmqt, lumbarCOFLEX SIZE 10FDAStart: 11-23-2018 Discectomy, lumbarCOFLEX SIZE 14FDAStart: 36-40-2754Touurwcuwn, lumbarCOFLEX SIZE 10FDAStart: 36-41-6844Joqtckykhl, lumbarCOFLEX SIZE 14FDAStart: 11-23-2018 Discectomy, lumbarCOFLEX SIZE 10FDAStart: 35-11-381160866354Qgefv: 08-02-2023 End: Units in the morning. Take before meals. Accucheck soft clix. [id number]: 11-10-2023 End: 93-32-1071Kjbegqwja trkfecepjzyb33316718Rerqe: 15-55-1447Uhw for Injection subcutaneous twice pflyg38413158Dlacd: 77-39-7198Fnaqsltqf ytkxivhxcfcc81570701 Start: 06-01-2024 End: strip by In Vitro route in the morning and 1 strip in the evening. Take before meals.61787551Pdpgs: 05-07-2025 End: Lancet in the morning and 1 Lancet in the evening. Take before meals.62597917Mzbtf: 05-07-2025 End: 08-15-2025 Functional Status MpynDdhokfsmnwBdqvucMqshfiix18-19-8900Jpoux score [AUDIT-C]0 06/18/2025 9:11 AM Larissa Morris [facility] HospitalPaearzcskd49-16-5791Eoymyrv Health Questionnaire 2 item (PHQ-2) [Reported][facility]ansonWdbapphrfg92-96-5290Mqwulvg Health Questionnaire 2 item (PHQ-2) [Reported][facility] BransonDjurlwxjry26-21-4930Uksmtcvrmz StatusN/AExecutive [facility]rology of [facility]11-04-2024Functional StatusN/A [facility]06-03-2024Patient Health Questionnaire 2 item (PHQ-2) [Reported][facility] BransonBisqrcwjrp58-30-8121 Functional StatusN/AExecutive [facility] of [facility] 85-11-8503Isemoxeffd StatusN/AExec[facility] of [facility] Clinical Notes 09-21-2022 to 07-19-2025 Note Date & NevnErtiGpvtrpgw23-67-3505 History of Present illness Narrative* Khoa Bowles MD - 07/19/2025 4:30 PM EDT Images from the original note were not included. Patient ID: Manuel Balderas is a 75 y.o. male who presents for: Flowsheet Row Patient Outreach from 07/16/2025 in [facility] with Larissa Leavitt RN Hospital Information ED, Hospital or Half-Way Facility Discharge? ED Patient has been contacted within 2 days of being seen in the ED Yes Diagnosis Vertigo Discharge Date 07/13/25 Discharged To: Home Setting Discharge Hospital [facility] Engagement Call Start Time 1705 Admission [...] mg by mouth in the morning. biotin 78754 MCG tablet Take 1 tablet by mouth [...] 1 pen needle 32G x 6 mm [facility] Use for Injection subcutaneous twice daily 200 [...] transition of care note is reviewed. a ufga-vk-zffw evaluation is done today. Medical decision making [...] substitutions may have occurred. documented in this encounterCox [id number] Radiology Diagnostic study [facility] [place] [address] CT Scan Report Signed Patient: Manuel Balderas MR#: [id number] : 1950 Acct:[id number] Age/Sex: 75 / M ADM Date: 5 Loc: ER Room: Type: PRE ER Attending Dr: Copies to: Madison Drew DO~ Ordering Provider: Madison Drew DO Date of Service: 07/13/25 CT/CT angio neck: vertigo ([id number]) CT/CT angio head: vertigo CT angiogram head [...] are patent with mild plaque. origin right PRICE CHECKER. origin left PRICE CHECKER with small contribution from the basilar artery. [...] Sandoval M.D. 07/13/2025 4:10 PM Dictation Location: [place] [address] Transcribed By: [facility] 07/13/25 1610 Dictated By: Marty Sandoval MD 07/13/25 1602 Signed By: 07/13/25 1610 [facility] Work Phone: [phone]) 499-191109-12-2025 Radiology Diagnostic study [facility] [place] [address] [place] [address] CT Scan Report Signed Patient: Manuel Balderas MR#: [id number] : 1950 Acct:[id number] Age/Sex: 75 / M ADM Date: 5 [...] Sandoval M.D. 07/13/2025 3:51 PM Dictation Location: [place] [address] Transcribed By: [facility] 07/13/25 1551 Dictated By: Marty Sandoval MD 07/13/25 1548 Signed By: 07/13/25 1551 [facility] Work Phone: [phone]) 704-717309-11-2025 History of Present illness Narrative* Tiffanie Enrique [...] [facility] for left ankle. PCP: Dr. Jelena [...] in the morning., Disp: , Rfl: biotin 05277 MCG tablet, Take 1 tablet by mouth [...] of 1 of the Coflex devices., [facility] PROST[facility] 05/22/2025 Prostate Transrectal MRI Fusion [...] Mood normal. Behavior: Behavior normal. MODIFIER: Q9, 33560, 76400 Assessment/Plan ICD-10-CM 1. Onychomycosis B35.1 2. Type II or unspecified type diabetes mellitus with neurological manifestations, not 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) ([facility]) E11.49 3. Acquired keratoderma L85.1 Conservative and [...] DPM Review of Systems documented in this [facility]08-30-2025 History of Present illness Narrative* Khoa Bowles MD - 06/30/2025 11:40 AM EDT Reviewed both the pain management note urology note. Problem list upgraded. documented in this [facility]08-11-2025 Hospital Discharge instructions Patient Education [...] under a microscope. This is called the [place] score and the total score can range from 6 10, indicating how likely it is that the cancer will spread (metastasize) to other parts of the body. The higher the score, the greater thelikelihood that the cancer will spread. [place] 6 or lower: This indicates that the cancer cells look similar to normal prostate cells (well differentiated). [place] 7: This indicates that the cancer cells look somewhat similar to normal prostate cells (moderately differentiated). [place] 8, 9, or 10: This indicates that [...] stress of having cancer. General instructions Take iysy-bqn-dwquqss and prescription medicines only as told by your health care provider. If you have to go to the hospital, notify your cancer specialist (oncologist). Keep all follow-up visits. This is important. Where to find more information [place] Cancer Society: www.cancer.org [place] Society of Clinical Oncology: www.cancer.net National Cancer [place]: www.cancer.gov Contact a health care provider if: [...] provider. Document Revised: 01/14/2022 Document Reviewed: 01/14/2022 AMT Patient Education 2023 Adhere2Care. Follow Up Care 05/08/2025 11:37:19 With:NINA LEVY, Madison Crespo, URL Address: [address] [place] [address] [place] [address] When: Unknown Comments:6 mos w/ PSA [facility] [place] 07-07-2025 History of Present illness Narrative* Khoa Bowles MD - 05/07/2025 11:00 AM EDT Images from the original note were not included. Manuel Balderas is a 75 y.o. male presents with chief complaint of Annual Exam HPI: History of Present Illness I have reviewed and reconciled the history and medication list with the patient today. 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 Hearing Screening: Not done Cognitive Screening Self Assessment: No concerns rasied by family members, friends, or caretakers Three Word Registration: Banana, [place], Chair Clock Drawing: Normal Clock - 2 Three Word Recall: 2/3 words correct - 2 Total Score (0-5 Points): 4 Pain Assessment Pain Score: 2 HISTORIES: PAST MEDICAL HISTORY: Past Medical History: Diagnosis Date Acute deep vein thrombosis (DVT) of tibial vein of left lower extremity ([facility]) Acute infective polyneuritis ([facility]) Back pain severe polyneuropathy and polyradiculopathy- likely [...] left foot limited to breakdown of skin ([facility]) Deep vein thrombosis (DVT) of left lower extremity ([facility]) 07/28/2023 Degenerative disc disease, lumbar Diabetes (HCC) Diabetes mellitus ([facility]) without mention of complication, type II or unspecified type, uncontrolled Disorder of lipoid metabolism unspecified Diverticulosis of colon without hemorrhage Essential hypertension unspecified Facet arthritis of lumbar region Fibromyalgia Hyperlipidemia Hypertension Iron deficiency anemia 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 [...] of 1 of the Coflex devices., [facility] ROTATOR CUFF REPAIR Left 1999 anterior stabilization [...] mg, Daily aspirin 81 mg, Daily biotin 07463 MCG tablet 1 tablet, 2 times daily [...] 9. Morbid obesity due to excess calories ([facility]) Chronic problem, stable, monitor longitudinally. 10. Type 2 diabetes mellitus with foot ulcer (CODE) (HCC) Chronic problem, stable, monitor longitudinally. 11. Thrombocytopenia Chronic problem, stable, monitor longitudinally. documented in this encounterCox [id number] History of Present illness Narrative* Khoa Bowles [...] mg by mouth in the morning. biotin 35581 MCG tablet Take 1 tablet by mouth [...] 1 pen needle 32G x 6 mm [facility] Use for Injection subcutaneous twice daily 200 [...] 11. Morbid obesity due to excess calories ([facility]) Chronic problem, stable, monitor longitudinally. documented in this encounterCox [id number] History of Present illness Narrative* Tiffanie Enrique [...] [facility] for left ankle. PCP: Dr. Jelena HERNANDEZ 10/31/2025 A1C: 6.6, BS: 143, SS: 12). Patient presents complaining of elongated, thick fungal nails. He is requesting nail debridement today. He was also requesting debridement of the callus of the left hallux of the left weight-bearing surface of the heel. He states he has seeing a doctor in [place] for his left ankle pain and arthritis. [...] in the morning., Disp: , Rfl: biotin 72367 MCG tablet, Take 1 tablet by mouth [...] of 1 of the Coflex devices., [facility] ROTATOR CUFF REPAIR Left 1999 anterior stabilization [...] Mood normal. Behavior: Behavior normal. MODIFIER: Q9, 28889, 52570 Assessment/Plan ICD-10-CM 1. Type II or unspecified type diabetes mellitus with neurological manifestations, not 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) ([facility]) E11.49 2. Onychomycosis B35.1 3. [...] DPM Review of Systems documented in this encounterCox [id number] Hospital Discharge instructions Patient Education 04/02/2025 13:11:27 [...] including vitamins, herbs, eye drops, creams, and iurb-tlt-sqceyrv medicines. Any surgeries you have had. Any [...] provider. Document Revised: 07/01/2022 Document Reviewed: 02/19/2021 AMT Patient Education 2023 Adhere2Care. 04/02/2025 13:09:37 Prostate Cancer Screening Prostate Cancer [...] treatment? Where to find more information The [place] Cancer Society: www.cancer.org [place] Urological Association: www.auanet.org Contact a health care [...] provider. Document Revised: 04/13/2022 Document Reviewed: 04/13/2022 AMT Patient Education 2023 Adhere2Care. Follow Up Care 12/18/2024 11:38:54 With:NINA LEVY, Madison Crespo, URL Address: [facility] [address] , [place] [address]- [phone] When: Unknown [facility] 06-02-2025 NotePatient Education Oncology Prostate Cancer [...] Where to find more information ??? The [place] Cancer Society: www.cancer.org ??? [place] Urological Association: www.auanet.org Contact a health care [...] men. The prostate gland (more content not included)...[facility]04-22-2025 History of Present illness Narrative* Khoa Bowles MD - 02/20/2025 8:00 AM EDT Images from the original note were not included. Patient ID: Manuel Balderas is a 74 y.o. male who presents for: ER Follow up: Fall Skin tear Flowsheet Row Patient Outreach from 02/19/2025 in [facility] with Larissa Leavitt RN Hospital Information ED, Hospital or Half-Way Facility Discharge? ED Patient has been contacted within 2 days of being seen in the ED Yes Diagnosis Skin tear Discharge Date 02/16/25 Discharged To: Home Setting Discharge Hospital [facility] Engagement Call Start Time 145 Admission Date [...] mg by mouth in the morning. biotin 84801 MCG tablet Take 1 tablet by mouth [...] transition of care note is reviewed. a dhly-xf-lxtb evaluation is done today. Medical decision making is complex in degree. documented in this encounterJoanna Ville [id number] History of Present illness Narrative* Tiffanie Enrique, [...] brace at an orthotic prosthetic Center in [facility] Review of Systems Current Outpatient Medications: allopurinol (Zyloprim) 300 MG tablet, Take 300 mg by mouth Daily, Disp: , Rfl: aspirin 81 MG EC tablet, Take 81 mg by mouth in the morning., Disp: , Rfl: biotin 57885 MCG tablet, 1 (one) time each day [...] Mood normal. Behavior: Behavior normal. MODIFIER: Q9, 73648, 92488 Assessment/Plan ICD-10-CM 1. Type II or unspecified type diabetes mellitus with neurological manifestations, not 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) ([facility]) E11.49 2. Onychomycosis B35.1 3. [...] or corrected. Thank you for your understanding. Tfifanie Enrique DPM documented in this encounterCox [id number] Hospital Discharge instructions Patient Education 12/18/2024 11:28:40 [...] your health care provider. General instructions Take rjrs-jmm-ypziaxf and prescription medicines only as told by [...] provider. Document Revised: 07/07/2021 Document Reviewed: 07/07/2021 AMT Patient Education 2023 Adhere2Care. Follow Up Care 09/04/2024 14:29:02 With:NINA LEVY, Madison Crespo, URL Address: [facility] [address] [place] [phone] When: Unknown Comments:3 mos w/ PVR and PSA [facility] [place] 02-17-2025 NotePatient Education Obstetrics and [...] health care provider. General instructions ??? Take mwag-mbp-xlmtfqo and prescription medicines only as told by [...] you drink, and whe (more content not included)...[facility]12-31-2024 History of Present illness Narrative* Khoa Bowles [...] mg by mouth in the morning. biotin 40793 MCG tablet 1 (one) time each day [...] 90 capsule; Refill: 3 documented in this encounterCox [id number] History of Present illness Narrative* Tiffanie Enrique, [...] in the morning., Disp: , Rfl: biotin 19097 MCG tablet, 1 (one) time each day [...] Mood normal. Behavior: Behavior normal. MODIFIER: Q9, 86641, 26993 Assessment/Plan ICD-10-CM 1. Type II or unspecified type diabetes mellitus with neurological manifestations, not 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) ([facility]) E11.49 2. Onychomycosis B35.1 3. [...] understanding. Tiffanie Enrique DPM documented in this encounterCox [id number] Hospital Discharge instructions Patient Education 09/04/2024 14:19:12 [...] include: ?8 oz (237 mL) of milk, xooodbp-lgcjaqpdqddk-lltfp milk, and calcium- fortifiedfruit juice. Calcium-fortified means [...] ?Spinach (cooked), rhubarb, beets, sweet potatoes, and Lebanese chard. ?Peanuts. ?Potato chips, egyptian fries, and baked potatoes with skin on. ?Nuts and nut products. ?Chocolate. If you regularly take a diuretic medicine, make sure to eat at least 1 or 2 servings of fruits or vegetables that are high in potassium each day. These include: ?Avocado. ?Banana. ?[place], prune, carrot, or tomato juice. ?Baked potato. [...] magnesium, fish oil, or vitamin B6. Take fbag-zio-lomqrtk and prescription medicines only as told by [...] Casseroles. Pizza. Lasagna. Frozen meals. Potato chips. [place] Citizen fries. The items listed above may not [...] provider. Document Revised: 01/28/2023 Document Reviewed: 01/28/2023 AMT Patient Education 2023 Adhere2Care. Follow Up Care 07/20/2024 10:51:39 With:NINA LEVY, Madison Crespo, URL Address: [facility] [address] , [place] [address]- When: Unknown [facility] 11-04-2024 NotePatient Education Nephrology Dietary Guidelines [...] ? 8 oz (237 mL) of milk, plbvych-gsxqasyjvgsp-ztlvd milk, and calcium- fortifiedfruit juice. Calcium-fortified means [...] Spinach (cooked), rhubarb, beets, sweet potatoes, and Lebanese chard. ? Peanuts. ? Potato chips, egyptian fries, and baked potatoes with skin on. ? Nuts and nut products. ? Chocolate. ??? If you regularly take a diuretic medicine, make sure to eat at least 1 or 2 servings of fruits or vegetables that are high in potassium each day. These include: ? Avocado. ? Banana. ? [place], prune, carrot, or tomato juice. ? Baked [...] fish oil, or vitamin B6. ??? Take aavi-daj-bovcbaq and prescription medicines only as told by your health (more content not included)...[facility]10-08-2024 History of Present illness Narrative* SUSANNA Arndt [...] of 1 of the Coflex devices., [facility] ROTATOR CUFF [...] Review Audit Reviewed by Taisha Gore MA ([employer] [place]) on 08/08/24 at 1240 Medication Order Taking? Sig Documenting Provider Last Dose Status allopurinol (Zyloprim) 300 MG tablet [id number] No Take 1 tablet (300 mg) by mouth Daily Khoa Bowles MD Taking Active aspirin 81 MG EC tablet [id number] No Take 81 mg by mouth in the morning. Karli Boston MD Taking Active biotin 52684 MCG tablet [id number] No 1 (one) time each day at the same time. Karli Boston MDTaking Active dapagliflozin (Farxiga) 10 MG [id number] No Take 1 tablet (10 mg) by mouth Daily Khoa Bowles MDTaking Active doxycycline (Monodox) 100 MG capsule [id number] No Take 1 capsule (100 mg) by mouth in the morning. Khoa Bowles MD Taking Active fenofibrate (Triglide) 160 MG tablet [id number] No Take 1 tablet (160 mg) by mouth Daily Khoa Bowles MD Taking Active ferrous sulfate 325 (65 Fe) MG tablet [id number] No Take 325 mg by mouth in the morning. Take with meals. Karli Boston MD Taking Active Flomax 0.4 MG 24 hr capsule [id number] No Take 0.4 mg by mouth in the evening. Karli Boston MD Taking Active gabapentin (Neurontin) 300 MG capsule [id number] Take 1 capsule (300 mg) by mouth in the morning and 1 capsule (300 mg) before bedtime. SUSANNA Arndt Active hydroCHLOROthiazide (HYDRODiuril) 25 MG tablet [id number] No Take 1 tablet (25 mg) by mouth in the evening Khoa Bowles MD Taking Active insulin glargine (Basaglar KwikPen) 100 UNIT/ML pen [id number] No Inject bid, sliding blood glucose scale with the coverage: <70, zero and eat. 70-150, 10 units. 151-200, 14 units. 201-250, 16 units. 251-300, 18 units. >300, 20 units Khoa Bowles MD Taking Active losartan-hydroCHLOROthiazide (Hyzaar) 100-12.5 MG tablet [id number] No Take 1 tablet by mouth Daily Khoa Bowles MD Taking Active Lutein 20 MG tablet [id number] No 1 (one) time each day at the same time. Karli Boston MD Taking Active metFORMIN (Glucophage) 1000 MG tablet [id number] No Take 1 tablet (1,000 mg) by mouth in the morning and 1 tablet (1,000 mg) in the evening. Take with meals. Khoa Bowles MD Taking Active metoprolol tartrate (Lopressor) 50 MG tablet [id number] No Take 1 tablet (50 mg) by mouth in the morning and 1 tablet (50 mg) before bedtime. Khoa Bowles MD Taking Active pen needle 32G x 6 mm [facility] [id number] No Use for Injection subcutaneous twice daily Khoa Bowles MD Taking Active sodium bicarbonate 650 MG tablet [id number] No Take 3 tablets by mouth in the morning and 3 tablets before bedtime. Historical Provider, Taking Active spironolactone (Aldactone) 25 MG tablet [id number] No 2 tablets in Am and 1 [...] triceps, wrist extensors, wrist extensors, wrist flexor, hand brush filler strength 5/5. LUE Strength deltoid, biceps, triceps, wrist extensors, wrist extensors, wrist flexor, hand brush filler strength 5/5. RLE Strength illopsoas, quadriceps, tibialis [...] new or worsening symptoms documented in this encounterCox [id number] Telephone encounter Note* Telephone Encounter - Khoa Bowles MD - 07/24/2024 4:13 PM EDT RX corrected and sent [facility] [id number] Miscellaneous Notes* Telephone Encounter - Khoa Bowles [...] he tried to refill the needles at [facility], they told him that they show the 100 is a 90 day supply for him and will not refill it. He is asking if Dr. Bowles can send an order to [facility] stating how often he test to show how many needles a 90 day supply is. He states he is out of needles and can not check his sugar. documented in this encounterCox [id number] Telephone encounter Note* Telephone Encounter - Sridevi [...] if you can look it over please [facility] [id number] Telephone encounter Note* Telephone Encounter - Khoa Bowles MD - 07/24/2024 9:48 AM EDT Sridevi, I suspect he is talking about testing with the lens sets and test strips. Can you confirm this is what he needs. If so okay to send a prescription for 200 with directions of tests twice a day and as needed. [facility] [id number] Telephone encounter Note* Telephone Encounter - Humaira Gray - 07/24/2024 9:25 AM EDT Abelino called, his last fill of needles was for 100. He states that he is suppose to test twice a day. When he tried to refill the needles at [facility], they told him that they show the 100 is a 90 day supply for him and will not refill it. He is asking if Dr. Bowles can send an order to [facility] stating how often he test to show how many needles a 90 day supply is. He states he is out of needles and can not check his sugar. [facility] [id number] History of Present illness Narrative* Tiffanie Enrique, [...] in the morning., Disp: , Rfl: biotin 25773 MCG tablet, 1 (one) time each day [...] of 1 of the Coflex devices., [facility] ROT[facility] CUFF [...] Mood normal. Behavior: Behavior normal. MODIFIER: Q9, 44957, 18934 Assessment/Plan Diagnoses and all orders for this visit: Type II or unspecified type diabetes mellitus with neurological manifestations, not 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) ([facility]) Onychomycosis Hallux limitus, left Acquired [...] Tiffanie Enrique DPM documented in this encounterNOMS [id number] Hospital Discharge instructions Patient Education 07/21/2023 14:08:11 [...] include: ?8 oz (237 mL) of milk, qyvrixw-gdioihqgoqhs-ygjzi milk, and calcium- fortifiedfruit juice. Calcium-fortified means [...] ?Spinach (cooked), rhubarb, beets, sweet potatoes, and Lebanese chard. ?Peanuts. ?Potato chips, egyptian fries, and baked potatoes with skin on. ?Nuts and nut products. ?Chocolate. If you regularly take a diuretic medicine, make sure to eat at least 1 or 2 servings of fruits or vegetables that are high in potassium each day. These include: ?Avocado. ?Banana. ?[place], prune, carrot, or tomato juice. ?Baked potato. [...] magnesium, fish oil, or vitamin B6. Take ciul-fkz-pnvfzkx and prescription medicines only as told by [...] Casseroles. Pizza. Lasagna. Frozen meals. Potato chips. [place] Citizen fries. The items listed above may not [...] provider. Document Revised: 06/29/2022 Document Reviewed: 06/29/2022 AMT Patient Education 2022 Adhere2Care. Follow Up Care 05/19/2023 09:51:24 With:NINA LEVY, Madison Crespo, URL Address: [facility] [address], [place] [address]- When: Unknown [facility] [place] 03-07-2023 Hospital Discharge instructions Patient Education [...] include: ?Spinach. ?Rhubarb. ?Beets. ?Potato chips and egyptian fries. ?Nuts. If you regularly take a diuretic medicine, make sure to eat at least 1 2 fruits or vegetables high in potassium each day. These include: ?Avocado. ?Banana. ?[place], prune, carrot, or tomato juice. ?Baked potato. [...] Casseroles. Pizza. Lasagna. Frozen meals. Potato chips. [place] Citizen fries. Summary You can reduce your risk [...] 02/12/2012 Document Revised: 02/07/2020 Document Reviewed: 09/28/2017 AMT Patient Education 2020 Elsevier Inc. Follow Up Care 10/07/2022 10:58:19 With:NINA LEVY, Madison Crespo, URL Address: [facility] [address], [place] [address]- When: Unknown [facility] 11-21-2022 Hospital Discharge instructions Patient Education [...] urethra. Follow these instructions at home: Take ilfc-mia-izoxiur and prescription medicines only as told by [...] 10/18/2006 Document Revised: 09/12/2019 Document Reviewed: 11/22/2017 AMT Patient Education 2020 Adhere2Care. Follow Up Care 12/22/2021 13:03:04 With:NINA LEVY, Madison Crespo, URL Address: [facility] [address], [place] [address]- When: Unknown [facility] evaluation + Plan note No data available for this section [facility] evaluation + Plan note Future Appointments Appointment Date:07/26/2024 01:45:00 PM Scheduled Provider:Madison WOOD MD Location:[facility] Appointment Type:URO Office Visit [facility] Evaluation + Plan note Future Appointments Appointment Date:09/04/2024 12:45:00 PM Scheduled Provider:Madison WOOD MD Location:[facility] Appointment Type:URO Office Visit [facility] Evaluation + Plan note Future Appointments Appointment Date:12/18/2024 10:45:00 AM Scheduled Provider:Madison [facility]O Office Visit Diagnostic Tests Pending * PSA Total 09/04/24 [facility] evaluation + Plan note Future Appointments Appointment Date:03/19/2025 11:45:00 AM Scheduled Provider:Madison WOOD MD Location:[facility] Appointment Type:URO Office Visit Diagnostic Tests Pending * PSA Total 12/18/24 [facility] evaluation + Plan note Future Appointments Appointment Date:12/14/2025 09:45:00 AM Scheduled Provider:Madison WOOD [facility] Type:URO Office Visit Diagnostic Tests Pending * PSA Total 06/11/25 [facility] evaluation noteNo assessment information available [facility] Diagnosis Type II or unspecified type diabetes mellitus with neurological manifestations, not 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) ([facility])- Primary Type II or unspecified type diabetes [...] with neurological manifestations, not 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) ([facility])- Primary Type II or unspecified type diabetes mellitus with neurological manifestations, not stated as uncontrolled Onychomycosis Dermatophytosis of nail Acquired keratoderma documented in this encounter [facility]* Diagnosis Diabetic nephropathy associated with type 2 diabetes mellitus (HCC) ([facility]) documented in this encounter [facility]* Diagnosis Diabetic neuropathic arthropathy ([facility]) Type II or unspecified type diabetes mellitus with neurological manifestations, not stated as uncontrolled documented in this encounter [facility]* Diagnosis Type 2 diabetes mellitus with hyperglycemia, without long-term current use of insulin ([facility]) documented in this encounter [facility]* Diagnosis Diabetic neuropathic arthropathy ([facility])- Primary Type II or unspecified type diabetes mellitus with neurological manifestations, not stated as uncontrolled Polyneuropathy due to type 2 diabetes mellitus ([facility]) Primary hypertension ([facility]) Unspecified essential hypertension Peripheral venous insufficiency Unspecified venous (peripheral) insufficiency Diabetic nephropathy associated with type 2 diabetes mellitus (HCC) ([facility]) Type 2 diabetes mellitus with hyperglycemia, without long-term current use of insulin ([facility]) Mixed hyperlipidemia ([facility]) Mixed hyperlipidemia Essential hypertension ([facility]) Unspecified essential hypertension Lymphedema of both lower extremities Chronic cellulitis Cellulitis and abscess of unspecified site documented in this encounter [facility]* Diagnosis Other fci (current) drug therapy documented in this encounter [facility]* Diagnosis Fall from standing, subsequent encounter Skin tear of upper extremity Bleeding Unspecified hemorrhage Encounter for examination following treatment at hospital documented in this encounter [facility]* Diagnosis Type II or unspecified type diabetes mellitus with neurological manifestations, not 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) ([facility])- Primary Type II or unspecified type diabetes mellitus with neurological manifestations, not stated as uncontrolled Onychomycosis Dermatophytosis of nail Acquired keratoderma Callus Corns and callosities documented in this encounter [facility]* Diagnosis Primary hypertension Unspecified [...] to excess calories ([facility]) Encounter for Medicare annual wellness exam Advance directive in chart Encounter for screening for other disorder Screening for alcohol problem Screening for alcoholism documented in this encounter [facility]* Diagnosis Encounter for Medicare [...] left foot limited to breakdown of skin ([facility]) Morbid obesity due to excess calories ([facility]) Type 2 diabetes mellitus with foot ulcer (CODE) ([facility]) Thrombocytopenia Unspecified thrombocytopenia documented in this encounter [facility] HealthcareEvaluation note* Diagnosis Onychomycosis- Primary Dermatophytosis of nail Type II or unspecified type diabetes mellitus with neurological manifestations, not 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) ([facility]) Type II or unspecified type diabetes mellitus with neurological manifestations, not stated as uncontrolled Acquired keratoderma documented in this encounter [facility]* Diagnosis Syncope, unspecified syncope type- Primary Right bundle branch block Vertigo Dizziness and giddiness Encounter for examination following treatment at hospital Morbid obesity due to excess calories ([facility]) Lymphedema of both lower extremities documented in this encounter [facility] Discharge instructions No data available for this section [facility] Mone Progress note No data available for this section [facility] Maria R Reason for referral (narrative)No reason for referral information [facility]Mer[facility] Work Phone: Chief Complaint and [...] 3:31pm TypeDate RecordedPatient RepresentativeExplanationPower of Attorney03/29/2024 1:37 [id number] POAAdvance Directives and Living Will03/29/2024 1:37 PM 2013-07-10 Living WillTypeDate RecordedPatient RepresentativeExplanationPower of Attorney03/29/2024 1:37 [id number] POAAdvance Directives and Living Will 03/29/2024 1:37 [id number] Living Will Summary Purpose Additional Source Comments [...] DateEnd Date Khoa Bowles MD [address] [place] [address] [facility]/23 Madison Wood MD [address] [phone] Referring PhysicianUrolog12/09/23 Tiffanie Enrique DPM [address] [place] [address] Referring PhysicianPodiatr12/09/23Team MemberRelationshipSpecialtyStart DateEnd Date Khoa Bowles MD [address] [place] [address] PCP - [facility]04/08/23 Khoa Bowles MD [address] [place] [address] PCP - [facility]12/31/23 Madison Wood MD [address] [place] [address] Referring PhysicianUrolog12/09/23 Tiffanie Enrique DPM [address] [place] [address] Referring PhysicianPobluegrass community hospital12/09/23Team MemberRelationshipSpecialtyStart DateEnd Khoa Bowles MD [address] [place] [phone] PCP - [facility]04/08/23 Khoa Bowles MD [address] [place] [address] PCP - [facility]12/31/23 Madison Wood MD [address] [place] [address] Referring PhysicianUrolakeside [facility] [place]12/09/23 Tiffanie Enrique DPM [address] [place] [address] Referring PhysicianAdventhealth Manchester12/09/23Team MemberRelationshipSpecialtyStart DateEnd Date Khoa Bowles MD [address] [place] [phone] PCP - [facility]04/08/23 Khoa Bowles MD [address] [place] [address] PCP - [facility]12/31/23 Madison Wood MD [address] [place] [address] Referring PhysicianUrolog12/09/23 Tiffanie Enrique DPM [address] [place] [address] Referring PhysicianPodiatr12/09/23Team MemberRelationshipSpecialtyStart DateEnd Date Khoa Bowles MD (Fax) PCP - [facility]04/08/23 Khoa Bowles MD [address] [place] [address] (Fax) PCP - O [facility]12/31/23 Madison Wood MD [address] [place] [address] Referring PhysicianUrolog12/09/23 Tiffanie Enrique DPM [address] [place] [address] Referring PhysicianPodiatr12/09/23Team MemberRelationshipSpecialtyStart DateEnd Date Khoa Bowles MD [address] [place] [address] (Fax) PCP - O [facility]12/31/23 Madison Wood MD [address] [phone] Referring PhysicianUrolog12/09/23 Tiffanie Enrique DPM [address] [place] [address] Referring PhysicianPodiatr12/09/23Team MemberRelationshipSpecialtyStart DateEnd Date Khoa Bowles MD [address] [place] [address] PCP - [facility]12/31/23 Madison Wood MD [address] [place] [address] Referring PhysicianUrolog12/09/23 Tiffanie Enrique DPM [address] [place] [address] Referring PhysicianPodiatr12/09/23Team MemberRelationshipSpecialtyStart DateEnd Date Khoa Bowles MD [address] [place] [address] PCP - [facility]12/31/23 Madison Wood MD [address] [phone] Referring PhysicianUrolog12/09/23 Tiffanie Enrique DPM [address] [place] [address] Referring PhysicianPodiatr12/09/23Team MemberRelationshipSpecialtyStart DateEnd Date Khoa Bowles MD [address] [place] [address] PCP - GeneralFamily Medicine04/08/23 Khoa Bowles MD [address] [facility] [place] [address] PCP - [facility]12/31/23 Madison Wood MD [address] [place] [address] Referring PhysicianUrology2 Tiffanie Enrique DPM [address] [place] [address] Referring PhysicianPodiatry2Team MemberRelationshipSpecialtyStart DateEnd Date Khoa Bowles MD [address] [place] [address] [address] [place] [address] PCP - [facility]12/31/23 Madison Wood MD [address] [place] [address] Referring PhysicianUrology2 Tiffanie Enrique DPM [address] [place] [address] Referring PhysicianPodiatr12/09/23Team MemberRelationshipSpecialtyStart DateEnd Date Khoa Bowles MD [address] [place] [address] PCP - [facility]12/31/23 Madison Wood MD [address] [place] [address] Referring PhysicianUrolog12/09/23 Tiffanie Enrique DPM [address] [place] [address] Referring PhysicianPodiatry2Team MemberRelationshipSpecialtyStart DateEnd Date Khoa Bowles MD [address] [place] [address] (Fax) PCP - [facility]12/31/23 Madison Wodo MD [address] [place] [address] Referring PhysicianUrology2 Tiffanie Enrique DPM [address] [place] [address] Referring PhysicianPodiatry2Team MemberRelationshipSpecialtyStart DateEnd Date Khoa Bowles MD [address] [address] PCP - [facility]12/31/23 Madison Wood MD [address] [place] [address] Referring PhysicianUrolog12/09/23 Tiffanie Enrique DPM [address] [place] [address] Referring PhysicianPodiatr12/09/23Team MemberRelationshipSpecialtyStart DateEnd Date Khoa Bowles MD [address] [facility] [address] [place] [address] (Fax) PCP - [facility]12/31/23 Khoa Bowles MD [address] [place] [address] (Fax) [facility] - [facility]12/27/24 Madison Wood MD [address] [place] [address] Referring PhysicianUrology2/8/24 Tiffanie Enrique DPM [address] [place] [address] Referring PhysicianPodiatr12/09/23Team MemberRelationshipSpecialtyStart DateEnd Date Khoa Bowles MD [address] [place] [address] (Fax) PCP - [facility]12/31/23 Khoa Bowles MD [address] [place] [address] (Fax) PCP - [facility]12/27/24 Madison Wood MD [address] [place] [phone] Referring PhysicianUrolog12/09/23 Tiffanie Enrique DPM [address] [place] [address] Referring PhysicianPodiatr12/09/23Team MemberRelationshipSpecialtyStart DateEnd Date Khoa Bowles MD [address] [place] [address] (Fax) PCP - [facility]12/31/23 Khoa Bowles MD [address] [place] [address] (Fax) PCP - [facility]12/27/24 Madison Wood MD [address] [place] [address] Referring PhysicianUrology2 Tiffanie Enrique DPM [address] [place] [address] Referring PhysicianPodiatr12/09/23Team MemberRelationshipSpecialtyStart DateEnd Date Khoa Bowles MD [address] [place] [address] (Fax) PCP - [facility]12/31/23 Khoa Bowles MD [address] [place] [address] (Fax) PCP - GeneralFamily Medicine12/27/24 Madison Wood MD [address] [place] [address] Referring PhysicianUrology2 Tiffanie Enrique DPM [address] [place] [address] Referring PhysicianPodiatr12/09/23 Larissa Leavitt, CORDELL Registered NurseNorth[facility]02/13/25Team MemberRelationshipSpecialtyStart Date End Date Khoa Bowles MD [address] [place] [address] (Fax) PCP - [facility]12/31/23 Khoa Bowles MD [address] [place] [address] (Fax) PCP - [facility] Medicine12/27/24 Madison Wood MD [address] [place] [address] Referring PhysicianUrology2 Tiffanie Enrique DPM [address] [place] [address] Referring PhysicianPodiatry2 Larissa Leavitt, CORDELL Registered NurseNorthside Hospital [facility]02/13/25Team MemberRelationshipSpecialtyStart Date End Date Khoa Bowles MD [address] [place] [address] (Fax) PCP - [facility]12/31/23 Khoa Bowles MD [address] [place] [address] (Fax) PCP - Generalmily Medicine12/27/24 Madison Wood MD [address] [place] [address] Referring PhysicianUrology2 Tiffanie Enrique DPM [address] [place] [address] Referring PhysicianPodiatry2 Larissa Leavitt, CORDELL Registered NurseNorth[facility]02/13/25Te MemberRelationshipSpecialtyStart Date End Date Khoa Bowles MD [address] [place] [address] (Fax) PCP - O [facility]12/31/23 Khoa Bowles MD [address] [place] [address] (Fax) PCP - Generalmi Medicine12/27/24 Madison Wood MD [address] [place] [address] Referring PhysicianUrolog12/09/23 Tiffanie Enrique DPM [address] [place] [address] Referring PhysicianPodiatry2 Larissa Leavitt RN Registered NurseLakes Regional Healthcarely Medicine02/13/25Team MemberRelationshipSpecialtyStart Date End Date Khoa Bolwes MD [address] [place] [address] (Fax) PCP - [facility]12/31/23 Khoa Bowles MD [address] [place] [address] (Fax) PCP - Generalmily Medicine12/27/24 Madison Wood MD [address] [place] [address] Referring PhysicianUrolog12/09/23 Tiffanie Enrique DPWei [address] [place] [address] Referring PhysicianPodiatr12/09/23 Larissa Leavitt, CORDELL [address] [address] Registered NurseNorthside Hospital [facility]02/13/25Team MemberRelationshipSpecialtyStart Date End Date Khoa Bowles MD [address] [place] [address] (Fax) PCP - [facility]12/31/23 Khoa Bowles MD [address] [place] [address] PCP - GeneralFamily Medicine12/27/24 Madison Wood MD [address] [place] [address] Referring PhysicianUrology2 Tiffanie Enrique DPM [address] [place] [address] Referring PhysicianPodiatry2 Larissa Leavitt RN [address] [place] [address] Registered NurseLakes Regional Healthcarely [facility]02/13/25Team MemberRelationshipSpecialtyStart Date End Date Khoa Bowles MD [address] [place] [address] (Fax) PCP - [facility]12/31/23 Khoa Bowles MD [address] [place] [address] PCP - GeneralFamily Medicine12/27/24 Madison Wood MD [address] [place] [address] Referring PhysicianUrology2 Tiffaine Enrique DPM [address] [place] [address] Referring PhysicianPodiatry2 Larissa Leavitt RN [address] [place] [address] Registered NurseFamily Medicine02/13/25Team MemberRelationshipSpecialtyStart Date End Date Khoa Bowles MD [address] [place] [address] (Fax) PCP - [facility]12/31/23 Khoa Bowles MD [address] [place] [address] (Fax) PCP - GeneralFamily Medicine12/27/24 Madison Wood MD [address] [place], [place] [phone] Referring PhysicianUrolog12/09/23 Tiffanie Enrique DPM [address] [place], [place] [address] Referring PhysicianPodiatr12/09/23 Larissa Leavitt, CORDELL [address] [facility] 230 [place] [address] Registered NurseFagood samaritan medical center Medicine02/13/25 Callie Mora MD [address] [place] [address] Referring PhysicianGeneral Surgery05/07/25 Skinny White MD [address] [place] [address] Referring PhysicianOphthalmology05/07/25 Shani Mohan DO [address] [phone] Referring PhysicianNeurology05/07/25 Team Status: Inactive Member Role Status Dates Khoa Bowles MD Primary Care Provider Active Start: April 23, 2025 End: April 23, 2025Patricvincent Wood MDAttlavon ProviderActiveStart: April 23, 2025 End: April 23, 2025 Team Status: Inactive Member Role Status Dates Madison Wood MD Attending Provider Active St art: May 22, 2025 End: May 22, 2025Team MemberRelationshipSpecialtyStart DateEnd Date Khoa Bowles MD [address] [place] [address] PCP - [facility]12/31/23 Khoa Bowles MD [address] [place] [address] PCP - GeneralFamily Medicine12/27/24 Madison Wood MD [address] [place], [place] [address] Referring PhysicianUrolog12/09/23 Tiffanie Enrique DPM [address] [place] [address] Referring PhysicianPodiatr12/09/23 Larissa Leavitt, CORDELL [address] [place] [address] Registered NurseFamily Medicine02/13/25 Callie Mora MD [address] [place] [address] Referring PhysicianGeneral Surgery05/07/25 Skinny White MD [address] [place] [address] Referring PhysicianOphthalmology05/07/25 Shani Mohan DO 703 [facility] [address] [place] [address] Referring PhysicianNeurology05/07/25Team MemberRelationshipSpecialtyStart DateEnd Date Khoa Bowles MD [address] [place] [address] PCP - [facility]12/31/23 Khoa Bowles MD [address] [place] [address] PCP - GeneralFamily Medicine12/27/24 Madison Wood MD [address] [place] [address] Referring PhysicianUrolog12/09/23 Tiffanie Enrique DPM [address] [place] [address] Referring PhysicianPodiatr12/09/23 Larissa Leavitt, CORDELL [address] [facility] [address] [place] [address] Registered NurseFamily Medicine02/13/25 Callie Mora MD [address] [facility] [place] [address] Referring PhysicianGeneral Surgery05/07/25 Skinny White MD [address] [place] [address] Referring PhysicianOphthalmology05/07/25 Shani Mohan DO 703 [facility] [address] [place] [address] Referring PhysicianNeurology05/07/25Team MemberRelationshipSpecialtyStart DateEnd Date Khoa Bowles MD [address] [place] [address] PCP - [facility]12/31/23 Khoa Bowles MD [address] [place] [address] PCP - GeneralFamily Medicine12/27/24 Madison Wood MD [address] [place] [phone] Referring PhysicianUrolog12/09/23 Tiffanie Enrique DPM [address] [place], [place] [address] Referring PhysicianPodiatr12/09/23 Larissa Leavitt, CORDELL [address] [facility] [address] [place] [address] Registered NurseFamily Medicine02/13/25 Callie Mora MD [address] [place] [address] Referring PhysicianGeneral Surgery05/07/25 Skinny White MD [address] [place] [address] Referring PhysicianOphthalmology05/07/25 Shani Mohan DO 703 [facility] [address] [place] [address] Referring PhysicianNeurology05/07/25 Team Status: Active Member Role Status Dates NON STAFF Primary Care Provider Active Team Status: Inactive Member Role Status Dates Madison Drew DO Emergency Provider Active St art: July 13, 2025 End: July 13, 2025NON STAFFPrimary Care ProviderActiveStart: July 13, 2025 End: July 13, 2025Team MemberRelationshipSpecialtyStart DateEnd Date Khoa Bowles MD [address] [place] [address] (Fax) PCP - [facility]12/31/23 Khoa Bowles MD [address] [place] [address] PCP - GeneralFamily Medicine12/27/24 Madison Wood MD [address] [place] [address] Referring PhysicianUrolog12/09/23 Tiffanie Enrique DPM [address] [place] [address] Referring PhysicianPodiatr12/09/23 Larissa Leavitt, CORDELL [address] [facility] [address] [place] [address] Registered NurseFamily Medicine02/13/25 Callie Mora MD [address] [place] [address] Referring PhysicianGeneral Surgery05/07/25 Skinny White MD [address] [place] [address] Referring PhysicianOphthalmology05/07/25 Shani Mohan DO 703 [facility] [address] [place] [address] Referring PhysicianNeurology05/07/25Team MemberRelationshipSpecialtyStart DateEnd Date Khoa Bowles MD [address] [place] [address] PCP - [facility]12/31/23 Khoa Bowles MD [address] [place] [address] PCP - GeneralFamily Medicine12/27/24 Madison Wood MD [address] [place] [address] Referring PhysicianUrolog12/09/23 Tiffanie Enrique DPM [address] [place], [place] [phone] Referring PhysicianPodiatr12/09/23 Larissa Leavitt, CORDELL [address] [facility] [address] [place] [address] Registered NurseFamily Medicine02/13/25 Callie Mora MD [address] [place] [address] Referring PhysicianGeneral Surgery05/07/25 Skinny White MD [address] [place] [address] Referring PhysicianOphthalmology05/07/25 Shani Mohan DO [address] [phone] Referring PhysicianNeurology05/07/25 Team Status: Inactive Member Role Status Dates Shani Mohan DO Attending Provider Active Sta rt: July 24, 2025 End: July 24, 2025NON STAFFPrimary Care ProviderActiveStart: July 24, 2025 End: July 24, 2025Team MemberRelationshipSpecialtyStart DateEnd Date Khoa Bowles MD (Fax) PCP - GeneralFamily Medicine04/0806/2311 Khoa Bowles MD [address] [place] [address] (Fax) PCP - [facility]12/31/23 Khoa Bowles MD [address] [place] [address] (Fax) PCP - Generalmily Medicine12/27/24 Madison Wood MD [address] [place], [place] [address] Referring PhysicianUrolog12/09/23 Tiffanie Enrique DPM [address] [place], [place] [address] Referring PhysicianPodiatr12/09/23 Larissa Leavitt, CORDELL [address] [place] [phone] Registered NurseFamily Medicine02/13/25 Callie Mora MD [address] [place], [place] [address], [place] [phone] Referring PhysicianGeneral Surgery05/07/25 Skinny White MD [address] [place] [address] Referring PhysicianOphthalmology05/07/25 Shani Mohan DO 703 [facility] [address] [place] [address] Referring PhysicianNeurology05/07/25Team MemberRelationshipSpecialtyStart DateEnd Date Khoa Bowles MD [address] [place] [address] PCP - [facility]12/31/23 Khoa Bowles MD [address] [place] [address] PCP - GeneralFamily Medicine12/27/24 Madison Wood MD [address] [place] [phone] Referring PhysicianUrolog12/09/23 Tiffanie Enrique DPM [address] [place] [address] Referring PhysicianPodiatr12/09/23 Larissa Leavitt, CODRELL [address] [facility] [address] [place] [address] Registered NurseFamily Medicine02/13/25 Callie Mora MD [address] [facility] [place] [address] Referring PhysicianGeneral Surgery05/07/25 Skinny White MD [address] [place] [address] Referring PhysicianOphthalmology05/07/25 Shani Mohan DO [address] [address] Referring PhysicianNeurology05/07/25 (unrecognized sect ion and content) No Status Records FoundNo Status Records FoundNo Status Records FoundNo Status Records FoundNo Status Records FoundNo Status Records Found INFORMATION SOURCE (unrecogn ized section and content) DATE CREATED AUTHOR 02/14/2023 [facility] DATE CREATED AUTHOR AUTHOR'S ORGANIZ ATION 06/10/2025 [facility] DATE CREATED AUTHOR AUTHOR'S ORGANIZ ATION 07/08/2025 [facility] DATE CREATED AUTHOR AUTHOR'S ORGANIZ ATION 07/21/2025 [facility] DATE CREATED AUTHOR AUTHOR'S ORGANIZ ATION 07/26/2025 [facility] DATE CREATED AUTHOR AUTHOR'S ORGANIZ ATION 08/02/2025 [facility] Reason for Visit (unrecogniz ed section and content) ReasonComDuane Balderas is a 73 y.o. male. Established pt presents today for diabetic nail care. PCP: Dr. Jelena HERNANDEZ 11/04/2023, A1C: 7.6 (07/27/23),BS: 168 SS: 12).ReasonCommentsPolyradiculopathyReasonCommentsDM Foot CarePCP: Dr. Jelena HERNANDEZ 05/02/24, A1C: 6.6, BS: 131, SS: 12ReasonCommentsMed RefillReasonOnset DateCommentsCare Uaekisuzhutm50/23/2024ReasonCommentsMed Change RequestReasonCommentsNail Yecenia Balderas is a 74 [...] [facility]. PCP: Dr. Jelena [...] BE BASED ON THE PRIMARY CLINICAL RECORDS. [employer] provides no warranty or guarantee of the accuracy or completeness of information in this document.
[2025-10-11 16:20] LABS: Microalbum Creatinine Ratio Ur 58.6 mg/g (0.0-29.9)
== END 2025-10-11 09:03 | disposition home or self-care (01) ==
LOC: LAB 09:06
PROVIDERS: PCP Family Medicine; Visit Provider Family Medicine
DX: R80.9 Proteinuria, unspecified (principal); E11.65 Type 2 diabetes mellitus with hyperglycemia; Z79.4 Long term (current) use of insulin
CPT/HCPCS: 36415; 82043; 82570; 83036

== ENCOUNTER 2025-10-17 09:29 | Outpatient (OUT) | payer MEDICARE, SELFPAY ==
--- OUTSIDE RECORDS SUMMARY | 2025-10-11 10:45 | XMS_ITS | Encounter Summary ---
Author Organization [facility] Address [address] [place] [address] Care Team Providers Care Water Resource Consultant Name Role Phone Jude Beach MD Unavailable [phone] Tiffanie Smyth DPM Unavailable [phone] Khoa Godinez MD Unavailable [phone] Khoa Godinez MD Primary Care Provider [phone] Larissa Leavitt RN Unavailable [phone] Callie Mora MD Unavailable [phone] Skinny White MD Unavailable [phone] Shani Mohan DO Unavailable [phone] Reason for Visit * ReasonCommentsNail careChaiman Balderas is a 75 y.o. male who presents for Nail care. Patient relates he started Pain management with [facility] for left ankle. PCP: Dr. Godinez 05/07/2025 A1C: 6.6, BS: 144, SS: 12. Encounter Details DateTypeDepartmentCare Team (Latest Contact Info)Wztkfysflzz51/11/2025 10:45 AM ESTProcedure Visit [facility] [address] [place] [address] Tiffanie Smtyh, DPM [address] [facility] [place] [address] Onychomycosis (Primary Dx); Type II or unspecified type diabetes mellitus with neurological manifestations, not 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) (HCC); Callus; Ingrowing nail, left great toe Social History Tobacco UseTypesPacks/DayYears UsedDateSmoking Tobacco: NeverAlcohol UseStandard Drinks/WeekCommentsNever0 (1 standard drink = 0.6 oz pure alcohol)Caffeine intake: [id number] Health LiteracyAnswerDate RecordedHow often do you need to have someone help you when you read instructions, pamphlets, or other written material from your doctor or pharmacy?Never06/18/2025Social Connection and Isolation PanelAnswerDate RecordedIn a typical week, how many times do you talk on the phone with family, friends, or neighbors?Never06/18/2025How often do you get together with friends or relatives?Once a week06/18/2025How often do you attend presybeterian or sabianism services?More than 4 times per year06/18/2025Do you belong to any clubs or organizations such as presybeterian groups, unions, fraternal or athletic groups, or [...] at all 06/18/2025PHQ-2AnswerDate RecordedPatient Health Questionnaire-2 Score0 05/07/2025[facility] [place] of Occupational Health - Occupational Stress QuestionnaireAnswerDate [...] InformationValueDate RecordedSex Assigned at BirthNot on fileLegal YggHqzu5401/13/2023 7:09 PM EDT Gender IdentityNot on fileSexual OrientationNot on fileOccupationIndustryJob Start DateJob End DateRetiredNot on fileNot on fileNot on filedocumented as of this encounter Last Filed Vital Signs Vital SignReadingTime TakenCommentsBlood Pressure--Pulse--Temperature-- Respiratory Rate--Oxygen Saturation--Inhaled Oxygen Concentration--Ijqlsy110 kg (281 lb)10/11/2025 10:34 AM EYFXutjip836.4 cm (6' 1 )10/11/2025 10:34 AM ESTBody Mass Index37.0710/11/2025 10:34 AM ESTdocumented in this encounter Progress Notes * Tiffanie Smyth DPM - 10/11/2025 10:45 AM EST Images from the original note were not included. Subjective Patient ID: Manuel Balderas is a 75 y.o. male who presents for Nail care (Manuel Balderas is a 75 y.o. male who presents for Nail care. Patient relates he started Pain management with [facility] for left ankle. PCP: Dr. Herbert HERNANDEZ 05/07/2025 A1C: 6.6, BS: 144, SS: 12.). Presents complaining of elongated, thick fungal nails. He is requesting nail debridement as well ascallus debridement of the left foot. He denies any other pedal complaints. He states he had a heartmonitor and a stress test recently as his PCP was concerned about his heart. He sees a cardiologistthis week to determine next steps. Review of Systems Current Outpatient Medications: allopurinol (Zyloprim) 300 MG tablet, Take 300 mg by mouth Daily, Disp: , Rfl: aspirin 81 MG EC tablet, Take 81 mg by mouth in the morning., Disp: , Rfl: biotin 22782 MCG tablet, Take 1 tablet by mouth in the morning and 1 tablet before bedtime., Disp: , Rfl: Blood Glucose Monitoring Suppl (Blood Glucose Monitoring 333) device, 1 Device continuously Accucheck, Disp: , Rfl: dapagliflozin (Farxiga) 10 MG, Take 1 tablet (10 mg) by mouth Daily, Disp: 90 tablet, Rfl: 3 doxycycline (Monodox) 100 MG capsule, Take 1 [...] mouth in the evening., Disp: , Rfl: hydroCHLOROthiazide (HYDRODiuril) 25 MG tablet, Take 1 tablet (25 mg) by mouth in the evening, Disp: 90 tablet, Rfl: 1 insulin glargine (Basaglar KwikPen) 100 UNIT/ML pen, INJECT BID, SLIDING BLOOD GLUCOSE SCALE WITH THE COVERAGE: <70, ZERO AND EAT. 70-150, 10 UNITS. 151-200, 14 UNITS. 201-250, 16 UNITS. 251-300, 18 UNITS. >300, 20 UNITS, Disp: 15 each, Rfl: 3 losartan-hydroCHLOROthiazide (Hyzaar) 100-12.5 MG tablet, Take 1 tablet by mouth Daily, Disp: 90 tablet, Rfl: 1 Lutein 20 MG tablet, 1 (one) time each day at the same time., Disp: , Rfl: meclizine (Antivert) 25 MG tablet, Take 25 mg by mouth 3 (three) times a day as needed for dizziness, Disp: , Rfl: metFORMIN (Glucophage) 1000 MG tablet, Take 1 tablet (1,000 mg) by mouth in the morning and 1 tablet (1,000 mg) in the evening. Take with meals., Disp: 180 tablet, Rfl: 1 metoprolol tartrate (Lopressor) 50 MG tablet, Take 1 tablet (50 mg) by mouth in the morning and 1 tablet (50 mg) before bedtime., Disp: 180 tablet, Rfl: 1 Misc. Devices misc, 1 each continuously, Disp: 1 each, Rfl: 0 pen needle 32G x 6 [...] mg by mouth Daily, Disp: , Rfl: Amoxicillin, Meperidine, Meperidine hcl, and Pioglitazone Past Surgical [...] of 1 of the Coflex devices., Uday, [facility] 05/22/2025 Prostate Transrectal MRI Fusion [...] Findings: No bruising or erythema. Comments: SKIN FINDINGS: web spaces are clean/dry. Chronic stasis with hx [...] elongated, mycotic, lysed from lateral nail bed. Distal lateral corner of nail is ingrown with localized erythema and bloody drainage. Nail 4 L is 4mm thick, incurvated, fungal. SKIN PATHOLOGY: texture, turgor, of skin is dystrophic due to the chronic edema and stasis changes. ULCER: none Neurological: Mental Status: He is alert and oriented to person, place, and time. Comments: Light touch sensation intact VIBRATORY: absent at IPJ, MPJ, and medial malleolus. Diminished at patella b/l. SEMMES-NATASHA 5.07 MONOFILAMENT: absent at 10/10 sites. Psychiatric: Mood and Affect: Mood normal. Behavior: Behavior normal. MODIFIER: Q9, [address], [address] Assessment/Plan ICD-10-CM 1. Onychomycosis B35.1 2. Type II or unspecified type diabetes mellitus with neurological manifestations, not 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) ([facility]) E11.49 3. Callus L84 Mycotic toenail debridement. All nails debrided in thickness and length. Instrumentation utilized: large and small nail nipper and curette and power bur. The left hallux nails ingrown of the distal lateral border. This was able to be removed with nail debridement. The area was cleaned and then covered with Band- Aid and antibiotic ointment. Patient was instructed to monitor the area and call if any further signs of infection are noted. All nails debrided appropriately. Web spaces inspected and found to be free of disease and ulceration. Shoes inspected and hygiene discussed. Advised to RTO on as needed basis Per pt request, all calluses were debrided by me. I was able to use #15 blade to effectively reducecallus build up. This note was created with the assistance [...] Plan of Treatment DateTypeDepartmentCare Team (Latest Contact Info)Mmxuqpwvaxm01/12/2026 10:45 AM EDTProcedure Visit [facility] [address] [place] [address] Tiffanie Smyth DPM [address] [place], [place] [id number] 04/11/2026 11:00 AM EDTOffice Visit [facility] [address] [facility] [address] [place] [address] Khoa Godinez MD 112 [facility] 100 [place] [address] (Fax) documented as of this encounter Visit Diagnoses Diagnosis Onychomycosis- Primary Dermatophytosis of nail Type II or unspecified type diabetes mellitus with neurological manifestations, not 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) (HCC) Type II or unspecified type diabetes mellitus with neurological manifestations, not stated as uncontrolled Callus Corns and callosities Ingrowing nail, left great toe Ingrowing nail documented in this encounter Additional Health Concerns AssessmentNoted TimePHQ-9 Depression Total Score: 10:00 AM EDT documented as of this encounter Care Teams Team MemberRelationshipSpecialtyStart DateEnd Date Khoa Godinez MD 112 [facility] 100 [place] [address] (Fax) PCP - ACO Reach12/31/23 Khoa Godinez MD [address] [address] (Fax) [facility] - [facility]12/27/24 Jude Beach MD [address] [place] [address] Referring PhysicianUrology2 Tiffanie Smyth DPM [address] [place] [address] Referring PhysicianPodiatry2 Larissa Leavitt, RN [address] [place] [address] Registered NurseFamily Medicine02/13/25 Callie Mora MD [address] [place] [address] Referring PhysicianGeneral Surgery05/07/25 Skinny White MD [address] [place] [address] Referring PhysicianOphthalmology05/07/25 Shani Mohan DO [address] [facility] [address] [place] [address] Referring PhysicianNeurology05/07/25documented as of this encounter
--- OUTSIDE RECORDS SUMMARY | 2025-10-11 14:30 | XMS_ITS | Encounter Summary ---
Author Organization [facility] Address [address] [place] [address] Care Team Providers Care Branch Operations Coordinator Name Role Phone Khoa Godinez MD Primary Care Provider [phone] Reason for Referral * Imaging (Routine) - Pending ReviewSpecialtyDiagnoses / ProceduresReferred By ContactReferred To ContactCardiology Diagnoses Abnormal cardiovascular stress test NSVT (nonsustained ventricular tachycardia) (CMS/HCC) Procedures Transthoracic echo (TTE) complete Taylor Hagen MD [address] [place] [address] Phone: tel: fax: Referral IDStatusReasonStart DateExpiration DateVisits RequestedVisits [id number] Review Perform Procedure Encounter Details DateTypeDepartmentCare Team (Latest Contact Info)Ynxvxwkypru05/11/2025 2:30 PM ESTOffice Visit [facility] [address] [place] [address] Taylor Hagen MD [address] [place] [address] Abnormal cardiovascular stress test (Primary Dx); NSVT (nonsustained ventricular tachycardia) (CMS/HCC); Mixed hyperlipidemia; Diabetes mellitus type II, non insulin dependent (CMS/HCC); SVT (supraventricular tachycardia); Syncope and collapse Social History Tobacco UseTypesPacks/DayYears UsedDateSmoking Tobacco: NeverSmokeless Tobacco: Never Tobacco Cessation:Counseling Given: Not Answered Sex and Gender InformationValueDate RecordedSex Assigned at RzybwFwjw49/11/2025 2:15 PM ESTLegal VihYznq62/02/2025 10:19 AM ESTGender LkmwkqitTfdu38/11/2025 2:15 PM ESTSexual OrientationHeterosexual or Fkpfxjah23/11/2025 2:15 PM EST documented as of this encounter Last Filed Vital Signs Vital SignReadingTime TakenCommentsBlood Xxqzgshx458/7010/11/2025 2:39 PM EST Xynak088310/11/2025 2:39 PM ESTTemperature--Respiratory Rate--Oxygen Arlofeasbx26% 10/11/2025 2:39 PM ESTInhaled Oxygen Concentration--Ryaccs833 kg (283 lb) 10/11/2025 2:39 PM KTBNisehj861.4 cm (6' 1 )10/11/2025 2:39 PM ESTBody Mass Index37.34112/12/2024 2:39 PM ESTdocumented in this encounter Progress Notes * Taylor Hagen MD - 10/11/2025 2:30 PM EST Images from the original note were not included. [facility] Cardiology Clinic Note Chief Complaint: New patient here to establish care. Ref from Dr. Godinez for abnormal stress test.He sees [facility] surgery for venous insufficiency. Wore a Holter monitor in Jul 2025. Patient denies chest pain and SOB. C/o increased fatigue the past few months. Isn't able to tolerate CPAP for BRETT. Was seen in ED at [facility] recently and was diagnosed with vertigo. But hasn't had dizziness since that time. HPI: Manuel Balderas is a 75 y.o. male Past medical history: Type 2 diabetes mellitus, dyslipidemia, hypertension, restless leg syndrome, benign prostatic hyperplasia For the past several months, he has noticed significant lightheadedness and near syncopal episodes.He underwent a Holter monitor that showed both nonsustained ventricular tachycardia and supraventricular tachycardia. He subsequently underwent a stress test that showed ischemia. He denies chest pain, however he has severe exertional shortness of breath and fatigue. No orthopnea, no paroxysmal external dyspnea, he does have chronic lower extremity edema related tovenous insufficiency Social history: He does not smoke Family history: Premature coronary artery disease in any first-degree relative Cardiology ROS: Review of Systems Constitutional: Positive for malaise/fatigue. Cardiovascular: Positive for leg swelling. Past Medical History He has no past medical history on file. Surgical History He has no past surgical history on file. Social History He has no history on file for tobacco use, alcohol use, and drug use. Family History Family History[1] Allergies Patient has no allergy information on record. Medications Current Medications[2] Last Recorded Vitals BP 114/70 (BP Location: Right arm, Patient Position: Sitting) Pulse 80 Ht 1.854 m (6' 1 ) Wt 128 kg (283 lb) SpO2 93% BMI 37.34 kg/m?? Physical Examination: GENERAL: alert and oriented x3, well developed, in no acute distress. HEAD: atraumatic, normocephalic. EYES: RADHA, EOMI. NECK: trachea midline, no JVD present, no carotid bruits present. CARDIAC: S1, S2 present. RRR. No murmur, rubs, or gallops. RESPIRATORY: CTAB, no increased effort of breathing, no rales, rhonchi, or wheezing. ABDOMEN: soft, nontender, nondistended. EXTREMITIES: no lower extremity edema, peripheral pulses are 2+ bilaterally. No rash/skin discoloration present. NEURO: strength/sensation equal and symmetric in bilateral upper and lower extremities. PSYCH: appropriate mood, affect, and judgement. Investigations: CT/CT angio abd aorta runoff IMPRESSION: 1. There is no evidence of arterial stenosis or occlusion to the popliteal level. Calf vessels are not assessed in diagnostic detail due topoor contrast opacification. 2. Technically limited study due to severe obesity. Soft tissues of the flank as well as a portion of the ascending colon are outside the field of view. 3. Cardiomegaly. 4. Cirrhosis and splenomegaly compatible with portal hypertension. 5. Small left adrenal nodule of indeterminate clinical significance. Mildly enlarged slick hepatic lymph nodes. 6. There is a beaded appearance of the celiac artery which is nonspecific. This type of vascular morphology can be seen in the setting of fibromuscular dysplasia. 7. Severe muscle atrophy is present below the knees bilaterally. Imaging [id number] 12-lead EKG: Sinus rhythm Right bundle branch block Inferior myocardial infarction age-indeterminate Indeterminate axis Lexiscan stress test 09/26/2025: Conclusion: Abnormal nuclear myocardial perfusion stress images revealing evidence of lateral and inferior ischemia Normal left ventricular systolic function, ejection fraction 64% No transient ischemic dilation, 3 times daily 1.1 EKG portion of the stress test is reported separately No evidence of ischemia noted on EKG Baseline EKG reveals sinus rhythm with underlying bundle branch block with low amplitude EKG and poor R wave progression No evidence of arrhythmias seen Holter monitor The predominant rhythm was sinus Maximal heart rate 134 minimum heart rate 43 bpm average heart rate 61 bpm 141 VE beats with a burden of less than 1% 1 occurrence of ventricular tachycardia with the longestepisode being 4 beats 2% supraventricular ectopy Assessment: Abnormal stress test Nonsustained ventricular tachycardia Supraventricular tachycardia 2% burden Syncope? Vertigo Right bundle branch block Type 2 DM on Insulin Morbid obesity BMP 35-39 Fatigue Vertigo Venous insufficiency Plan: Given his risk factor profile, nonsustained ventricular tachycardia, and syncope, as well as the abnormal stress test, I recommended proceeding with cardiac catheterization We will schedule him for a right heart catheterization and coronary angiography via right internal jugular and left radial approach If no significant stenoses are found, he would likely need prolonged monitoring including a possible implantable loop recorder and referral to EP Treat noncardiac comorbidities as clinically appropriate Further recommendations pending the above Taylor Hagen MD, MPH, [facility], [facility], [facility] Interventional Cardiology Pager Email: [email or web address] [1] No family history on file. [2] No current outpatient medications on file. documented in this encounter Plan of Treatment NameTypePriorityAssociated DiagnosesOrder ScheduleTransthoracic echo (TTE) completeEchocardiographyRoutine Abnormal cardiovascular stress test NSVT (nonsustained ventricular tachycardia) (CMS/HCC) Expected: 10/11/2025 (Approximate), Expires: 10/11/2027CBC and differentialLab Routine Abnormal cardiovascular stress test NSVT (nonsustained ventricular tachycardia) (CMS/HCC) Expected: 10/11/2025 (Approximate), Expires: 10/11/2026asic metabolic panelLab Routine Abnormal cardiovascular stress test NSVT (nonsustained ventricular tachycardia) (CMS/HCC) Expected: 10/11/2025 (Approximate), Expires: 10/11/2026Lipid panelLabRoutine Mixed hyperlipidemia Expected: 10/11/2025 (Approximate), Expires: 10/11/2026NamePriorityAssociated DiagnosesDate/TimeCORONARY ANGIOGRAPHY Abnormal cardiovascular stress test NSVT (nonsustained ventricular tachycardia) (CMS/HCC) RIGHT HEART CATH Abnormal cardiovascular stress test NSVT (nonsustained ventricular tachycardia) (CMS/HCC) documented as of this encounter Visit Diagnoses Diagnosis Abnormal cardiovascular stress test- Primary Other nonspecific abnormal cardiovascular system function study NSVT (nonsustained ventricular tachycardia) (CMS/HCC) Mixed hyperlipidemia Diabetes mellitus type II, non insulin dependent (CMS/HCC) Type II or unspecified type diabetes mellitus without mention of complication, not stated as uncontrolled SVT (supraventricular tachycardia) Other specified cardiac dysrhythmias Syncope and collapse documented in this encounter Care Teams Team MemberRelationshipSpecialtyStart DateEnd Date Khoa Godinez MD [address] [place] [address] PCP - GeneralFamily Bowaogxz48/10/25documented as of this encounter
--- OUTSIDE RECORDS SUMMARY | 2025-10-16 14:30 | XMS_ITS | Encounter Summary ---
Author Organization [facility] Address [address] [place] [address] Care Team Providers Care Batting Machine Operator Name Role Phone Jude Beach MD Unavailable [phone] Tiffanie Smyth DPM Unavailable [phone] Khoa Godinez MD Unavailable [phone] Khoa Godinez MD Primary Care Provider [phone] Larissa Leavitt RN Unavailable [phone] Callie Mora MD Unavailable [phone] Skinny Whiet MD Unavailable [phone] Shani Mohan DO Unavailable [phone] Reason for Visit * ReasonCommentsHypertensionHyperlipidemiaDiabetes Encounter Details DateTypeDepartmentCare Team (Latest Contact Info)Fosblvycpll03/16/2025 2:30 PM ESTOffice Visit [facility] Family Medicine 112 [facility] 100 [place] [address] Khoa Godinez MD 112 [facility] 100 [place] [address] Primary hypertension (Primary Dx); Microalbuminuria; Mixed hyperlipidemia; Hyperuricemia; Type 2 diabetes mellitus with stage 3a chronic kidney disease, with long-term current use of insulin (HCC); Type 2 diabetes mellitus with foot ulcer (CODE) ([facility]); Type 2 diabetes mellitus with diabetic neuropathic arthropathy, with long-term current use of insulin (HCC); Polypharmacy; Morbid obesity due to excess calories ([facility]); Type 2 diabetes mellitus with diabetic microalbuminuria, with long-term current use of insulin ([facility]); Lymphedema of both lower extremities; Chronic cellulitis; Chronic pain syndrome Social History Tobacco UseTypesPacks/DayYears UsedDateSmoking Tobacco: Never Tobacco Cessation:Counseling Given: Yes Alcohol UseStandard Drinks/WeekCommentsNever0 (1 standard drink = 0.6 oz pure alcohol)Caffeine intake: [id number] Health LiteracyAnswerDate RecordedHow often do you need [...] a week 06/18/2025How often do you attend jain or religion services?More than 4 times per year06/18/2025Do you belong to any clubs or organizations such as jain groups, unions, fraternal or athletic groups, or school groups?No06/18/2025How often do you attend meetings of the clubs or organizations you belong to?Never 06/18/2025re you , , , , never , or living with a partner?Chxxalx8506/18/2025UDIT-CAnswerDate RecordedQ1: How often do you have a [...] hard at all06/18/2025PHQ-2AnswerDate Recorded Patient Health Questionnaire-2 Moxii72712/17/2024[facility] [place] of Occupational Health - Occupational Stress QuestionnaireAnswerDate [...] were you homeless or living in a intermediate (including now)?No06/18/2025Sex and Gender InformationValueDate RecordedSex Assigned at BirthNot on fileLegal OyfKrgt0201/13/2023 7:09 PM EDTGender IdentityNot on fileSexual OrientationNot on fileOccupationIndustryJob Start DateJob End DateRetiredNot on fileNot on fileNot on filedocumented as of this encounter Last Filed Vital Signs Vital SignReadingTime TakenCommentsBlood Ziffwcmj665/6810/16/2025 2:13 PM EST Nguiq547610/16/2025 2:13 PM ESTTemperature--Respiratory Rate--Oxygen Clpcatqfnc97% 10/16/2025 2:13 PM ESTInhaled Oxygen Concentration--Qfmolf053 kg (281 lb) 10/16/2025 2:13 PM BXQRubwcx838.4 cm (6' 1 )10/16/2025 2:13 PM ESTBody Mass Index37.0710/16/2025 2:13 PM ESTdocumented in this encounter Functional Status * Over the past 2 weeks, how often have you been bothered by any of the following problems?QuestionAnswerDate of AssessmentAuthorLittle interest or pleasure in doing thingsNot at all10/16/2025 3:06 PM Ozzie, Sridevi, [place] Feeling down, depressed, or hopelessNot at all10/16/2025 3:06 PM Ozzie, January, [facility] BAKERSFIELDatient Health Questionnaire-2 Xtpom61012/17/2024 3:06 PM Ozzie, January, [place] documented as of this encounter Progress Notes * Khoa Godinez MD - 10/16/2025 2:30 PM EST Images from the original note were not included. Patient ID: Manuel Balderas is a 75 y.o. male who presents for: Lab missed his CMP and Lipid He is here with his today Hypertension Patient is here for follow-up of elevated blood pressure. He is not exercising and is adherent to alow-salt diet. Blood pressure is well controlled at home. Cardiac symptoms: none. Patient denies chest pain, irregular heart beat, lower extremity edema, and palpitations. Cardiovascular risk factors: advanced age (older than 55 for men, 65 for women), diabetes mellitus, dyslipidemia, hypertension,male gender, microalbuminuria, and obesity (BMI >= 30 kg/m2). Use of agents associated with hypertension: none. History of target organ damage: chronic kidney disease. Hyperlipidemia Pt who presents for follow-up of dyslipidemia. A repeat fasting lipid profile was not done. The patient does not use medications that may worsen dyslipidemias (corticosteroids, progestins, anabolic steroids, diuretics, beta-blockers, amiodarone, cyclosporine, olanzapine). Exercise: intermittently. Diabetes Mellitus Patient presents for follow up of diabetes. Current symptoms include: paresthesia of the feet. Symptoms have stabilized. Patient denies increased appetite and visual disturbances. Evaluation to date has included: hemoglobin A1C and microalbuminuria. Home sugars: patient does not check sugars. He states the pain dr has him on Duloxetine and it is not helping. Review of Systems Constitutional: Negative for activity change and fatigue. Respiratory: Negative for cough, shortness of breath and wheezing. Cardiovascular: Negative for chest pain, palpitations and leg swelling. Neurological: Negative for light-headedness and headaches. Objective The patient is pleasant and in no acute distress The patient has good eye contact and clear speech Patient walks with a limp. He has diffuse swelling around the left ankle without increase in calor or rubor. 10/11/2025 10:34 AM 07/19/2025 4:14 PM 07/12/2025 12:54 PM 05/07/2025 11:04 AM Vitals BMI 37.07 kg/m2 37.07 kg/m2 37.07 kg/m2 37.07 kg/m2 BSA (m2) 2.56 m2 2.56 m2 2.56 m2 2.56 m2 Systolic 120 Diastolic 68 Heart Rate 75 71 SpO2 95 % 96 % Height (in) 6' 1 6' 1 6' 1 6' 1 Weight (lb) 281 281 281 281 Visit Report Report Report Ref Range & Units 5 d ago (10/11/25) 5 mo ago (04/24/25) 11 mo ago (10/26/24) 1 yr ago (04/27/24) 1 yr ago (02/02/24) 1 yr ago (10/19/23) 2 yr ago (07/27/23) GLYCOHEMOGLOBIN A1C 4.5 - 6.2 % 6.6 High 6.9 High CM 6.6 High CM 6.6 High CM Allergies Allergen Reactions Amoxicillin Other Reaction(s): Unknown Reaction Meperidine Other Reaction(s): Other: See Comments shakes Meperidine Hcl Other Reaction(s): Shakes, shakes Pioglitazone Swelling Current Outpatient Medications on File Prior to Visit Medication Sig Dispense Refill allopurinol (Zyloprim) 300 MG tablet Take 300 mg by mouth Daily aspirin 81 MG EC tablet Take 81 mg by mouth in the morning. biotin 57117 MCG tablet Take 1 tablet by mouth in the morning and 1 tablet before bedtime. Blood Glucose Monitoring Suppl (Blood Glucose Monitoring 333) device 1 Device continuously Accucheck dapagliflozin (Farxiga) 10 MG Take 1 tablet (10 mg) by mouth Daily 90 tablet 3 doxycycline (Monodox) 100 MG capsule Take 1 [...] UNITS. >300, 20 UNITS 15 each 3 losartan-hydroCHLOROthiazide (Hyzaar) 100-12.5 MG tablet [...] (50 mg) before bedtime. 180 tablet 1 Misc. Devices misc 1 each continuously 1 each 0 pen needle 32G x 6 mm misc [...] file prior to visit. 1. Primary hypertension (Primary) Chronic problem, stable, to goal. They note he has good blood pressure readings at home. - losartan-hydroCHLOROthiazide (Hyzaar) 100-12.5 MG tablet; Take 1 tablet by mouth Daily Dispense: 90 tablet; Refill: 1 - hydroCHLOROthiazide (HYDRODiuril) 25 MG tablet; Take 1 tablet (25 mg) by mouth in the evening Dispense: 90 tablet; Refill: 1 - metoprolol tartrate (Lopressor) 50 MG tablet; Take 1 tablet (50 mg) by mouth in the morning and 1tablet (50 mg) before bedtime. Dispense: 180 tablet; Refill: 1 - Comprehensive metabolic panel; Future - Lipid panel; Future - Comprehensive metabolic panel - Lipid panel 2. Microalbuminuria Chronic problem, defining an aspect the [...] used for risk stratification for cardiovascular disease. 3. Mixed hyperlipidemia Chronic problem, renew prescription - fenofibrate (Triglide) 160 MG tablet; Take 1 tablet (160 mg) by mouth Daily Dispense: 90 tablet; Refill: 1 - Lipid panel; Future - Lipid panel 4. Hyperuricemia Chronic problem we will recheck laboratory values. - Uric acid; Future - Uric acid 5. Type 2 diabetes mellitus with stage 3a chronic kidney disease, with long-term current use of insulin (HCC) - Comprehensive metabolic panel; Future - Hemoglobin A1c; Future - Comprehensive metabolic panel - Hemoglobin A1c 6. Type 2 diabetes mellitus with foot ulcer (CODE) (HCC) Chronic problem, stable, to goal. I did review his hemoglobin A1cs with them and he is up just a little bit. I have cautioned him especially over the Jimmie holidays and holidays. - Comprehensive metabolic panel; Future - Hemoglobin A1c; Future - Comprehensive metabolic panel - Hemoglobin A1c 7. Type 2 diabetes mellitus with diabetic neuropathic arthropathy, with long- term current use of insulin (HCC) Chronic problem. He is complaining of pain from his neuropathy. He is really down around the left ankle makes it difficult to understand whether it is musculoskeletal pain or neuropathic pain for him. - Comprehensive metabolic panel; Future - Hemoglobin A1c; Future - Comprehensive metabolic panel - Hemoglobin A1c 8. Polypharmacy Chronic problem The patient meets the [...] a moderate degree of evaluation and management. 9. Morbid obesity due to excess calories ([facility]) Encouraged diet modification. Chair exercises. 10. Type 2 diabetes mellitus with diabetic microalbuminuria, with long-term current use of insulin ([facility]) Chronic problem, stable, to goal. - metFORMIN (Glucophage) 1000 MG tablet; Take 1 tablet (1,000 mg) by mouth in the morning and 1 tablet (1,000 mg) in the evening. Take with meals. Dispense: 180 tablet; Refill: 1 - Comprehensive metabolic panel; Future - Hemoglobin A1c; Future - Comprehensive metabolic panel - Hemoglobin A1c 11. Lymphedema of both lower extremities Chronic problem, stable. He specifically notes that the spironolactone does help with the swelling from this. - spironolactone (Aldactone) 25 MG tablet; 2 tablets in Am and 1 tablet in PM Dispense: 270 tablet;Refill: 1 12. Chronic cellulitis Chronic problem. He is going to be on lifetime antibiotic. Continues to tolerate the doxycycline. - doxycycline (Monodox) 100 MG capsule; Take 1 capsule (100 mg) by mouth Daily Dispense: 90 capsule; Refill: 3 13. Chronic pain syndrome Chronic problem, unstable. He has seen pain management and Orthopedics. He notes the pain is so bad now that it is interfering with his sleep at night. Is limiting his activities of daily living. Pain management started him on duloxetine and that has done nothing for him. He does not think it has changed his mood any in his agrees with him. We have mutually agreed to decrease and then discontinue the duloxetine. They have been warned he may have some side effects when he is coming off of this. We also then discussed a trial of gabapentin. He notes that he has been on gabapentin previously and he thought it worked for him. He denied any specific side effects that he remembers. We did talk about the possibility of sedation. He will let me know in about 3 weeks 3-4 weeks how this is all going - DULoxetine (Cymbalta) [address] capsule; Take 1 tablet twice daily for 2 weeks and then decrease to 1 in AM for 2 weeks, then stop Dispense: 45 capsule; Refill: 0 - gabapentin (Neurontin) 300 MG capsule; Take 1 capsule (300 mg) by mouth in the morning and 1 capsule (300 mg) in the evening and 1 capsule (300 mg) before bedtime. Dispense: 90 capsule; Refill: 0 Please Note: Portions of this chart may have been created using voice recognition software. Occasionally a wrong-word or sound-like substitutions may have occurred due to inherent limitations of the voice recognition software. Please read the chart carefully and recognize, using context, where the substitutions may have occurred. documented in this encounter Plan of Treatment DateTypeDepartmentCare Team (Latest Contact Info)Ipeljbjjkas45/12/2026 10:45 AM EDTProcedure Visit [facility] [address] [place] [address] Tiffanie Smyth, DPWei [address] [place] [address] 04/11/2026 11:00 AM EDTOffice Visit [address] Medicine 112 [facility] 100 [place] [address] Khoa Godinez MD 112 [facility] 100 [place] [address] NameTypePriorityAssociated DiagnosesOrder ScheduleComprehensive metabolic panel LabRoutine Primary hypertension Type 2 diabetes mellitus with stage 3a chronic kidney disease, with long-term current use of insulin (HCC) Type 2 diabetes mellitus with foot ulcer (CODE) (HCC) Type 2 diabetes mellitus with diabetic neuropathic arthropathy, with long-term current use of insulin (HCC) Type 2 diabetes mellitus with diabetic microalbuminuria, with long-term current use of insulin (HCC) Expected: 03/16/2026 (Approximate), Expires: 06/14/2026Hemoglobin M8rPmkVgflukb Type 2 diabetes mellitus with stage 3a chronic kidney disease, with long-term current use of insulin (HCC) Type 2 diabetes mellitus with foot ulcer (CODE) (HCC) Type 2 diabetes mellitus with diabetic neuropathic arthropathy, with long-term current use of insulin (HCC) Type 2 diabetes mellitus with diabetic microalbuminuria, with long-term current use of insulin ([facility]) Expected: 03/16/2026 (Approximate), Expires: 06/14/2026Lipid panelLabRoutine Primary hypertension Mixed hyperlipidemia Expected: 03/16/2026 (Approximate), Expires: 06/14/2026Uric acidLabRoutine Hyperuricemia Expected: 03/16/2026 (Approximate), Expires: 06/14/2026documented as of this encounter Visit Diagnoses Diagnosis Primary hypertension- Primary Unspecified essential hypertension Microalbuminuria Proteinuria Mixed hyperlipidemia Hyperuricemia Other abnormal blood chemistry Type 2 diabetes mellitus with stage 3a chronic kidney disease, with long-term current use of insulin (HCC) Type 2 diabetes mellitus with foot ulcer (CODE) (HCC) Type 2 diabetes mellitus with diabetic neuropathic arthropathy, with long-term current use of insulin ([facility]) Polypharmacy Issue of repeat prescriptions Morbid obesity due to excess calories ([facility]) Type 2 diabetes mellitus with diabetic microalbuminuria, with long-term current use of insulin ([facility]) Lymphedema of both lower extremities Chronic cellulitis Cellulitis and abscess of unspecified site Chronic pain syndrome documented in this encounter Additional Health Concerns AssessmentNoted TimePHQ-9 Depression Total Score: 107 10:00 AM EDT documented as of this encounter Care Teams Team MemberRelationshipSpecialtyStart DateEnd Date Khoa Godinez MD [address] [address] (Fax) PCP - ACO Reach12/31/23 Khoa Godinez MD [address] [address] (Fax) PCP - GeneralFamily Medicine12/27/24 Jude Beach MD [address] [place] [address] Referring PhysicianUrology2 Tiffanie Smyth DPM [address] [place] [address] Referring PhysicianPodiatr12/09/23 Larissa Leavitt, RN [address] [facility] [address] [place] [address] Registered NurseFamily [facility]02/13/25 Callie Mora MD [address] [place] [address] Referring PhysicianGeneral Surgery05/07/25 Skinny White MD [address] [place] [address] Referring PhysicianOphthalmology05/07/25 Shani Mohan DO [address] [address] Referring PhysicianNeurology05/07/25documented as of this encounter
--- OUTSIDE RECORDS SUMMARY | 2025-10-17 09:37 | XMS_ITS | Clinical Summary ---
Author Organization [facility] Address [address] [place] [address] Care Team Providers Care Conductor Symphonic Orchestra Name Role Phone Unavailable Primary Care Provider Unavailabl e Allergies Active AllergyReactionsCriticalityNoted DateCommentsMeperidine (Pf)Other: See Dkokdazy68/03/2014 shakes Medications MedicationSigDispense QuantityRefillsLast FilledStart DateEnd DateStatus [...] ctive Active Problems ProblemNoted DateDiagnosed DateCalculus of udamif8602/01/2014Kidney stone 02/01/20148019Qaktedtgftahhk02/03/2014Unspecified essential brycyzvnyzdy68/03/2014 BMI 40.0-44.9, adult02/01/2014Sleep apnea02/01/2014Flank pain02/01/2014 Immunizations ImmunizationAdministration DatesNext Duepneumococcal polysaccharide (PPV23) vaccine, 23 valent (PNEUMOVAX 23)02/22/2012 Social History Tobacco UseTypesPacks/DayYears UsedDateSmoking Tobacco: NeverSmokeless Tobacco: NeverAlcohol UseStandard Drinks/WeekCommentsNo0 (1 standard drink = 0.6 oz pure alcohol)Sex and Gender InformationValueDate RecordedSex Assigned at BirthNot on fileLegal LvuUiib2311/17/2013 10:25 AM ESTGender IdentityNot on fileSexual OrientationNot on fileOccupationIndustryJob Start DateJob End Datemill rightNot on fileNot on fileNot on file Last Filed Vital Signs Vital SignReadingTime TakenCommentsBlood Hrjnfvxr258/7705 10:30 AM EDT Fimda6187 10:30 AM KQWTgvzkjauvwr02.4 ??C (99.4 ??F)03/06/2014 10:30 AM EDTRespiratory Carw464002/23/2014 1:25 PM EDTOxygen Mtxzfyxrle12%02/23/2014 1:25 PM EDTInhaled Oxygen Concentration--Bdzbcp316.1 kg (328 lb 12.8 oz)03/06/2014 10:30 AM YXBBjtejp103.4 cm (6' 1 )03/06/2014 10:30 AM EDTBody Mass Index43.38 03/06/2014 10:30 AM EDT Plan of Treatment Health MaintenanceDue DateLast DoneCommentsAnxiety Szosmblas42/30/1968Depression Bvctjcpqi60/30/1968Hepatitis C Adsvawjol82/30/1968DTaP,Tdap,Td Vaccine (1 - Tdap)1969Lipid Ayntfukdv15/30/1985CT Sujuqjdtujqb16/30/1995Cologuard (FIT-DNA)03/30/19953683Essludcatwy09/30/1995Colorectal Cancer Pjueommii95/30/1995 Fecal Occult Blood03/30/19954307Ppwlceyvbyjhg08/30/1995Shingrix Vaccine (1 of 2) 2000Pneumococcal Vaccine: 50+ (2 of 2 - PCV)Diabetes Jrzwtrghc42, 02/21/2014, 02/01/2014dvance Directive Qapqdnbbbz79/01/2025RSV Vaccine (1 - 1-dose 75+ series)2025ovid-19 Vaccine (1 - 2024- season)2025Influenza Vaccine (#1)2025 Medical Devices ImplantedTypeAreaManufacturerDevice IdentifierShelf Expiration DateModel / Serial / GfjHtu-Xp-Z-Kind Implant - [id number] Implanted:Qty: 1 [facility]/21/2014 [facility] [id number] / / Description:[id number] PERCUFLEX STENT Procedures Procedure NamePriorityDate/TimeAssociated DiagnosisCommentsBASIC METABOLIC PANEL Tvbxyru7802/22/2014 12:44 AM EDT from Last 3 Months or Most Recently Relevant to Health Maintenance Results * (ABNORMAL) BASIC METABOLIC PNL (02/22/2014 12:44 AM EDT)ComponentValueRef RangeTest MethodAnalysis TimePerformed AtPathologist CtkvczrpsEbalgye618(H)65 - 100 mg/dLKETTERING [facility] MAIN SNPTMAPEZTMMP0793 - 25 mg/dLKETTERING HEALTH [facility] MAIN LABORATORYCreatinine1.120.70 - 1.40 mg/dLTRUMBULL [facility]ORY Kuulnn217866 - 146 mmol/LCSUMMA [facility] MAIN LABORATORYPotassium3.83.5 - 5.0 mmol/LCSUMMA HEALTH [facility]BERTON [facility]AMP[facility] MAIN SHRJMSAMKJSipjhapj76556 - 110 mmol/LCSUMMA HEALTH BARBERTON CAMP[facility] MAIN KIDXLLEDKBXL71373 - 32 mmol/LCSUMMA HEALTH BARBERT[facility] CAMPUS MAIN LABORATORYAnion Asf526 - 15 mmol/LCSUMMA HEALTH BARBERTON CAMPUS MAIN LABORATORYCalcium8.58.5 - 10.5 mg/dL [facility] LABORATORYSpecimen (Source)Anatomical Location / LateralityCollection Method / VolumeCollection TimeReceived TimeBlood specimen (specimen)BLOOD SPECIMEN / Ciipsdc7802/22/2014 12:44 AM EDT02/22/2014 12:45 AM EDT Narrative Authorizing ProviderResult TypeResult StatusBurke Clemens MDLABORATORYFinal ResultPerforming OrganizationAddressCity/State/ZIP CodePhone Number [facility] [address] [place] [address] from Last 3 Months or Most Recently Relevant to Health Maintenance Insurance Advance Directives TypeDate RecordedPatient RepresentativeExplanationAdvance Directive(s)02/09/2014 11:20 AM
--- OUTSIDE RECORDS SUMMARY | 2025-10-17 09:38 | XMS_ITS | Encounter Summary ---
Author Organization [facility] Address [address] [place] [address] Care Team Providers Care Pumper Gauger Name Role Phone Jude Beach MD Unavailable [phone] Tiffanie Smyth DPM Unavailable [phone] Khoa Godinez MD Unavailable [phone] Khoa Godinez MD Primary Care Provider + [phone] Larissa Leavitt RN Unavailable [phone] Callie Mora MD Unavailable [phone] Skinny White MD Unavailable [phone] Shani Mohan DO Unavailable [phone] Encounter Details DateTypeDepartmentCare Team (Latest Contact Info)Rnntuztuzfm42/16/2025Travel Social History Tobacco UseTypesPacks/DayYears UsedDateSmoking Tobacco: NeverAlcohol UseStandard Drinks/WeekCommentsNever0 (1 standard drink = 0.6 oz pure alcohol)Caffeine intake: lxwpC7845 Health LiteracyAnswerDate RecordedHow often do you need to have someone help you when you read instructions, pamphlets, or other written material from your doctor or pharmacy?Never06/18/2025Social Connection and Isolation PanelAnswerDate RecordedIn a typical week, how many times do you talk on the phone with family, friends, or neighbors?Never06/18/2025How often do you get together with friends or relatives?Once a week06/18/2025How often do you attend synagogue or jew services?More than 4 times per year06/18/2025Do you belong to any clubs or organizations such as synagogue groups, unions, fraternal or athletic groups, or [...] at all 06/18/2025PHQ-2AnswerDate RecordedPatient Health Questionnaire-2 Score0 10/16/2025[facility]pan[facility] [place] of Occupational Health - Occupational Stress QuestionnaireAnswerDate [...] homeless or living in a custodial (including now)?No06/18/2025Sex and Gender InformationValueDate RecordedSex Assigned at BirthNot on fileLegal AqsGboy3801/13/2023 7:09 PM EDT Gender IdentityNot on fileSexual OrientationNot on fileOccupationIndustryJob Start DateJob End DateRetiredNot on fileNot on fileNot on filedocumented as of this encounter Functional Status * Over the past 2 weeks, how often have you been bothered by any of the following problems?QuestionAnswerDate of AssessmentAuthorLittle interest or pleasure in doing thingsNot at all10/16/2025 3:06 PM Ozzie, Sridevi, [place] Feeling down, depressed, or hopelessNot at all10/16/2025 3:06 PM Ozzie, January, [facility]ITALatient Health Questionnaire-2 Etomy73512/17/2024 3:06 PM Sridevi Horne, [place] documented as of this encounter Plan of Treatment DateTypeDepartmentCare Team (Latest Contact Info)Uzvoxevimzw65/12/2026 10:45 AM EDTProcedure Visit [facility] [address] [facility] [id number] Tiffanie Smyth DPM [address] [place] [address] 04/11/2026 11:00 AM EDTOffice Visit [facility] [address] [place] [address] Khoa Godinez MD 112 [facility] [address] [place] [address] documented as of this encounter Visit Diagnoses Not on filedocumented in this encounter Additional Health Concerns AssessmentNoted TimePHQ-9 Depression Total Score: 10:00 AM EDT documented as of this encounter Care Teams Team MemberRelationshipSpecialtyStart DateEnd Date Khoa Godinez MD [address] [place] [address] (Fax) PCP - ACO Reach12/31/23 Khoa Godinez MD [address] [place] [address] PCP - GeneralFamily Medicine12/27/24 Jude Beach MD [address] [place], [place] [address] Referring PhysicianUrolog12/09/23 Tiffanie Smyth DPM [address] [place] [address] Referring PhysicianPodiatr12/09/23 Larissa Leavitt, CORDELL [address] [facility] [address] [place], [place] [address] Registered NurseFamily Medicine02/13/25 Callie Mora MD [address] [place] [address] Referring PhysicianGeneral Surgery05/07/25 Skinny White MD [address] [place] [address] Referring PhysicianOphthalmology05/07/25 Shani oMhan DO [address] [phone] Referring PhysicianNeurology05/07/25documented as of this encounter
--- OUTSIDE RECORDS SUMMARY | 2025-10-17 09:38 | XMS_ITS | Clinical Summary ---
Author Organization [facility] Address [address] [place] [address] Care Team Providers Care Line Cook Name Role Phone Khoa Godinez MD Primary Care Provider [phone] Allergies Active AllergyReactionsCriticalityNoted VqcuUmswlrnnKqeloxyvqliEpnig94/23/2025 Other Reaction(s): Unknown Reaction Meperidine-WxztgrfnolmvPxtkbjx97/11/2025 Medications MedicationSigDispense QuantityRefillsLast FilledStart DateEnd DateStatus losartan-hydrochlorothiazide (Hyzaar) 100-12.5 mg tablet Take 1 tablet by mouth in the morning.Active metoprolol tartrate (Lopressor) 50 mg tablet Take 50 mg by mouth in the morning and at bedtime.11/09/2018Active fenofibrate (Lofibra) 160 mg tablet Take 160 mg by mouth in the morning.09/04/2024ctive dapagliflozin propanediol (Farxiga) 10 mg Take 10 mg by mouth in the morning.09/04/2024ctive spironolactone (Aldactone) 25 mg tablet TAKE 2 TABLETS BY MOUTH EVERY MORNING AND 1 TABLET EVERY EVENINGActive sodium bicarbonate 650 mg tablet Take 1,950 mg by mouth in the morning and at bedtime.Active tamsulosin (Flomax) 0.4 mg 24 hr capsule Take 0.4 mg by mouth in the morning.Active allopurinol (Zyloprim) 300 mg tablet Take 300 mg by mouth in the morning.Active hydroCHLOROthiazide (HYDRODiuril) 25 mg tablet Take 25 mg by mouth in the evening.Active solifenacin (VESIcare) 10 mg tablet Take 10 mg by mouth in the morning.Active metFORMIN (Glucophage) 1,000 mg tablet Take 1,000 mg by mouth with breakfast and with evening meal. Active aspirin 81 mg tablet Take by mouth.09/18/2019Active ferrous sulfate 325 (65 Fe) MG tablet in the morning.11/09/2018Active lutein 20 mg tablet 1 (one) time each day at the same time.Active insulin glargine (Lantus) 100 unit/mL (3 mL) injection pen Inject under the skin at bedtime.Active doxycycline (Adoxa) 100 mg tablet Take 100 mg by mouth in the morning. Take with a full glass of water and do not lie down for at least 30 minutes afterActive Active Problems ProblemNoted DateDiagnosed DateBack pain10/11/2025 Overview (10/11/2025): severe polyneuropathy and polyradiculopathy- likely due to DM. also has chronic back pain. improvedwith meds. Symptoms have improved with gabapentin. he cannot walk for long distances due to fatigueand weakness and is afraid of falling Deep vein thrombosis (DVT) of left lower utsbwnnij07/11/0318Docagzdg01/11/2025 Family history of prostate cancer in ibcakp5810/11/20257084Opqhsudmjigi76/11/2025 Kidney ykknof4410/11/20255424Wmctqeqo11/11/2025OAB (overactive bladder)10/11/2025 Bghpqfszbup76/11/6203Jklemwo33/11/2025Prostate pxvene9406/30/20256947Tshhqtq54/25/2024 Myalgia due to ifykwy9906/07/2024DD (degenerative disc disease), dhekzw9604/11/2024 Facet arthritis of lumbar reazqc3604/11/20245860Swpkyktohbq39/11/2024olyradiculopathy 04/11/2024 Overview (10/11/2025): radicular pain into the bilateral lower extremities [...] The cramping in his legs have improved. Radiculopathy, lumbosacral aeissc4904/11/2024Lipodermatosclerosis of both lower tueauzsxdkd55/09/2024Spinal stenosis of lumbar mphdnz3112/09/2023 Overview (10/11/2025): Problem List clean-up per request of Phys. EHR Cmte Elevated PSA07/28/2023ersonal history of kidney jkniev2607/28/2023enign non- nodular prostatic hyperplasia with lower urinary tract /12/2023hronic ohbgsyrxxn43/12/2023PAP (continuous positive airway pressure) dependence 04/12/2023ifficulty in walking, not elsewhere njahbgeenu37/12/2023Heart murmur 04/12/20232448Bmusravtumma37/12/2023Hypertensive left ventricular hypertrophy, without heart zbkvccq4604/12/20235562Ysbbhlamafyas30/12/2023Iron deficiency anemia secondary to inadequate dietary iron jxwnge1904/12/2023Lymphedema of both lower nxqzoogrjnt02/12/9892Jzinzpekkjfggruv73/12/2023Mixed dudczswrdkoktt22/12/2023 Morbid obesity due to excess /12/2023Obstructive sleep apnea syndrome 04/12/2023Osteoarthritis of spine with radiculopathy, thoracolumbar region 04/12/2023Right bundle branch block04/12/2023Spondylolisthesis, lumbar region 04/12/20232720Ggrmjmptsocflngy39/12/2023hronic ulcer of left foot limited to breakdown of skin08/26/20214840Jskrahqnzcib61/05/2021eripheral venous insufficiency 08/05/2021History of lhvznntzbix59/02/2020 Overview (10/11/2025): Left ankle Thoracic spondylosis without ukitmugfpo57/02/2020Type 2 diabetes mellitus with chronic kidney disease, with long-term current use of ihdvksa8510/02/2020Bilateral nonexudative age-related macular vgetfubnqbyb27/18/2016Polyneuropathy due to type 2 diabetes zepmvpwk09/18/2016Diverticulosis of colon08/10/2015 Encounters DateTypeDepartmentCare LtcmSudjolchfyf20/11/2025 2:30 PM ESTOffice Visit [facility] [place] [address] [place] [address] Taylor Hagen MD Abnormal cardiovascular stress test (Primary Dx); NSVT (nonsustained ventricular tachycardia) (CMS/HCC); Mixed hyperlipidemia; Diabetes mellitus type II, non insulin dependent (CMS/HCC); SVT (supraventricular tachycardia); Syncope and collapsefrom Last 3 Months Family History Medical HistoryRelationNameCommentsNo Known ProblemsFatherSudden deathMaternal GrandmotherNo Known ProblemsMotherHeart attackPaternal GrandfatherRelationName StatusCommentsFatherMaternal GrandmotherMotherPaternal Grandfather Social History Tobacco UseTypesPacks/DayYears UsedDateSmoking Tobacco: NeverSmokeless Tobacco: Never Tobacco Cessation:Counseling Given: Not Answered Sex and Gender InformationValueDate RecordedSex Assigned at LpxyhJvyy10/11/2025 2:15 PM ESTLegal YecBjbf95/02/2025 10:19 AM ESTGender AluvzqebYkjs14/11/2025 2:15 PM ESTSexual OrientationHeterosexual or Xqntaoka55/11/2025 2:15 PM EST Last Filed Vital Signs Vital SignReadingTime TakenCommentsBlood Cdmyuwhz757/7010/11/2025 2:39 PM EST Kujgv829010/11/2025 2:39 PM ESTTemperature--Respiratory Rate--Oxygen Xwpdtvxmol36% 10/11/2025 2:39 PM ESTInhaled Oxygen Concentration--Uehfxw561 kg (283 lb) 10/11/2025 2:39 PM FLFSpeitk020.4 cm (6' 1 )10/11/2025 2:39 PM ESTBody Mass Index37.3412 2:39 PM EST Plan of Treatment NamePriorityAssociated DiagnosesDate/TimeCORONARY ANGIOGRAPHY Abnormal cardiovascular stress test NSVT (nonsustained ventricular tachycardia) ([facility]/HCC) RIGHT HEART CATH Abnormal cardiovascular stress test NSVT (nonsustained ventricular tachycardia) ([facility]) Health MaintenanceDue DateLast DoneCommentsCT Dkllseisbgyt1950FIT-DNA 1950FIT1950FOBT1950Medicare Annual Wellness (AWV)1950 Rpqscxmirgdsf1950Diabetes: Retinopathy Temrbktql79/30/1960Depression Xammmjmmf94/30/1962Diabetes: Urine Protein Amevlutbk1969Zoster Vaccines (1 of 2)Fall Risk Kmyjosqrs47/30/2015Diabetes: Hemoglobin A1C /OVID-19 Vaccine ( season)/07/2022, 09/26/2021, 01/25/2021, Additional history krnnabQcmlchsreoi02/17/202608/ Colorectal Cancer Yfnsscxpr15/17/2026dult Yqavdcl91 Pneumococcal Vaccine: 50+ AqfxvPmxjmxiaa92/02/2021, 09/06/2017, 08/17/2016, Additional history existsInfluenza EinerqlKhnmdpvvl95/01/2025, 10/26/2024, 10/14/2023, Additional history existsHIB VaccinesAged OutNo longer eligible based on patient's age to complete this topicHPV VaccinesAged OutNo longer eligible based on patient's age to complete this topicIPV VaccinesAged OutNo longer eligible based on patient's age to complete this topicMeningococcal B VaccineAged OutNo longer eligible based on patient's age to complete this topic Meningococcal VaccineAged OutNo longer eligible based on patient's age to complete this topicRotavirus VaccinesAged OutNo longer eligible based on patient's age to complete this topic Insurance Care Teams Team MemberRelationshipSpecialtyStart DateEnd Khoa Godinez MD [address] [facility] [place] [address] PCP - GeneralFamily Ybjlevwz19/10/25
--- OUTSIDE RECORDS SUMMARY | 2025-10-17 09:38 | XMS_ITS | Encounter Summary ---
Author Organization [facility] Address [address] [place] [address] Care Team Providers Care Third Helper Name Role Phone Jude Beach MD Unavailable [phone] Tiffanie Smyth DPM Unavailable [phone] Khoa Godinez MD Unavailable [phone] Khoa Godinez MD Primary Care Provider [phone] Larissa Leavitt RN Unavailable [phone] Callie Mora MD Unavailable [phone] Skinny White MD Unavailable [phone] Shani Mohan DO Unavailable [phone] Encounter Details DateTypeDepartmentCare Team (Latest Contact Info)Vynrfpottgo44/16/2025amboo flowsheet [facility] [place] [address] [facility] [address] [facility] [address] [place] [address] Khoa Godinez MD [address] [place] [address] Social History Tobacco UseTypesPacks/DayYears UsedDateSmoking Tobacco: NeverAlcohol UseStandard Drinks/WeekCommentsNever0 (1 standard drink = 0.6 oz pure alcohol)Caffeine intake: uuflF6137 Health LiteracyAnswerDate RecordedHow often do you need to have someone help you when you read instructions, pamphlets, or other written material from your doctor or pharmacy?Never06/18/2025Social Connection and Isolation PanelAnswerDate RecordedIn a typical week, how many times do you talk on the phone with family, friends, or neighbors?Never06/18/2025How often do you get together with friends or relatives?Once a week06/18/2025How often do you attend buddhism or jewish services?More than 4 times per year06/18/2025Do you belong to any clubs or organizations such as buddhism groups, unions, fraternal or athletic groups, or [...] at all 06/18/2025PHQ-2AnswerDate RecordedPatient Health Questionnaire-2 Score0 10/16/2025[place] [facility] [place] of Occupational Health - Occupational Stress [...] were you homeless or living in a mcc (including now)?No06/18/2025Sex and Gender InformationValueDate RecordedSex Assigned at BirthNot on fileLegal DgkQwul7701/13/2023 7:09 PM EDT Gender IdentityNot on fileSexual OrientationNot on fileOccupationIndustryJob Start DateJob End DateRetiredNot on fileNot on fileNot on filedocumented as of this encounter Plan of Treatment DateTypeDepartmentCare Team (Latest Contact Info)Judlplkppjg87/12/2026 10:45 AM EDTProcedure Visit [facility] [address] [place] [phone] Tiffanie Smyth, DPM [address] [facility] [place] [address] 04/11/2026 11:00 AM EDTOffice Visit [facility] [address] [place] [address] Khoa Godinez MD [address] [facility] [address] [place] [address] documented as of this encounter Visit Diagnoses Not on filedocumented in this encounter Additional Health Concerns AssessmentNoted TimePHQ-9 Depression Total Score: 10:00 AM EDT documented as of this encounter Care Teams Team MemberRelationshipSpecialtyStart DateEnd Date Khoa Godinez MD [address] [place] [address] (Fax) PCP - ACO Reach12/31/23 Khoa Godinez MD [address] [place] [address] (Fax) PCP - GeneralFamily Medicine12/27/24 Jude Beach MD [address] [place] [address] Referring PhysicianUrolog12/09/23 Tiffanie Smyth DPWei [address] [place] [address] Referring PhysicianPodiatr12/09/23 Larissa Leavitt, CORDELL [address] [facility] [address] [place] [address] Registered NurseFamily Medicine02/13/25 Callie Mora MD [address] [place] [address] Referring PhysicianGeneral Surgery05/07/25 Skinny White MD [address] [place] [address] Referring PhysicianOphthalmology05/07/25 Shani Mohan DO [address] [phone] Referring PhysicianNeurology05/07/25documented as of this encounter
--- OUTSIDE RECORDS SUMMARY | 2025-10-17 09:38 | XMS_ITS | Encounter Summary ---
Author Organization [facility] Address [address] [place] [address] Care Team Providers Care Candy Spreader Helper Name Role Phone Jude Beach MD Unavailable [phone] Tiffanie Smyth DPM Unavailable [phone] Khoa Godinez MD Unavailable [phone] Khoa Godinez MD Primary Care Provider + [phone] Larissa Leavitt RN Unavailable [phone] Callie Mora MD Unavailable [phone] Skinny White MD Unavailable [phone] Shani Mohan DO Unavailable [phone] Encounter Details DateTypeDepartmentCare Team (Latest Contact Info)Xbbwqurtyzy73/11/2025linisync Result Encounter [facility] External Department Unsolicited Khoa Godinez MD [address] [place] [address] Social History Tobacco UseTypesPacks/DayYears UsedDateSmoking Tobacco: NeverAlcohol UseStandard Drinks/WeekCommentsNever0 (1 standard drink = 0.6 oz pure alcohol)Caffeine intake: yedqV9858 Health LiteracyAnswerDate RecordedHow often do you need to have someone help you when you read instructions, pamphlets, or other written material from your doctor or pharmacy?Never06/18/2025Social Connection and Isolation PanelAnswerDate RecordedIn a typical week, how many times do you talk on the phone with family, friends, or neighbors?Never06/18/2025How often do you get together with friends or relatives?Once a week06/18/2025How often do you attend catholic or nondenominational services?More than 4 times per year06/18/2025Do you belong to any clubs or organizations such as catholic groups, unions, fraternal [...] at all 06/18/2025PHQ-2AnswerDate RecordedPatient Health Questionnaire-2 Score0 05/07/2025[facility] [place] of Occupational Health - Occupational Stress QuestionnaireAnswerDate [...] homeless or living in a fci (including now)?No06/18/2025Sex and Gender InformationValueDate RecordedSex Assigned at BirthNot on fileLegal AqyYcba4501/13/2023 7:09 PM EDT Gender IdentityNot on fileSexual OrientationNot on fileOccupationIndustryJob Start DateJob End DateRetiredNot on fileNot on fileNot on filedocumented as of this encounter Plan of Treatment DateTypeDepartmentCare Team (Latest Contact Info)Drukhtkxqco80/12/2026 10:45 AM EDTProcedure Visit [facility] [address] [facility] [place] [phone] Tiffanie Smyth, DPM [address] [facility] [place] [address] 04/11/2026 11:00 AM EDTOffice Visit [facility] [address] [place] [address] Khoa Godinez MD [address] [facility] [address] [place] [address] (Fax) documented as of this encounter Procedures Procedure NamePriorityDate/TimeAssociated DiagnosisCommentsMLR HEMOGLOBIN A1C Ujnfzim5510/11/2025 9:26 AM EST TBH MICROALB CREAT RATIO AIKVEAAaccltu63/11/2025 9:14 AM EST documented in this encounter Results * (ABNORMAL) MLR HEMOGLOBIN A1C (10/11/2025 9:26 AM EST)ComponentValueRef Range Test MethodAnalysis TimePerformed AtPathologist SignatureGLYCOHEMOGLOBIN A1C 6.6(H)4.5 - 6.2 %TBHComment: ADA RECOMMENDED LIMIT 4.0 - 6.0 ADA THERAPEUTIC TARGET < 7.0 ACTION SUGGESTED > 7.0 ESTIMATED AVERAGE BOIKERF148dr/dLTBHSpecimen (Source)Anatomical Location / LateralityCollection Method / VolumeCollection TimeReceived Time10/11/2025 9:26 AM EST10/11/2025 9:26 AM EST Narrative [facility] - 10/11/2025 10:08 AM EST Authorizing ProviderResult TypeResult StatusKhoa Godinez MDCLINISYNCFinal ResultPerforming OrganizationAddressCity/State/ZIP CodePhone Number CLINISYNC TBH * (ABNORMAL) [facility]H MICROALB CREAT RATIO RANDOM (10/11/2025 9:14 AM EST)Component ValueRef RangeTest MethodAnalysis TimePerformed AtPathologist Signature MICROALBUMIN URINE RANDOM3.2<=30.0 mg/dLTBHCREATININE URINE AGVBSX47.5820.00 - 300.00 mg/dLTBHMICROALBUM CREATININE RATIO UR58.6(H)0.0 - 29.9 mg/gTBHComment: NO MICROALBUMINURIA ?0-29 MG/G CLINICAL MICROALBUMINURIA ??30-300 MG/G MACROALBUMINURIA >300 MG/G Specimen (Source)Anatomical Location / LateralityCollection Method / Volume Collection TimeReceived Time10/11/2025 9:14 AM EST10/11/2025 9:26 AM EST Narrative [facility] - 10/11/2025 4:35 PM EST Authorizing ProviderResult TypeResult Nicolette BENTONLINISYNCFinal ResultPerforming OrganizationAddressCity/State/ZIP CodePhone Number CLINISYNC TB documented in this encounter Visit Diagnoses Not on filedocumented in this encounter Additional Health Concerns AssessmentNoted TimePHQ-9 Depression Total Score: 10:00 AM EDT documented as of this encounter Care Teams Team MemberRelationshipSpecialtyStart DateEnd Date Khoa Godinez MD [address] [place] [address] (Fax) PCP - ACO Reach12/31/23 Khoa Godinez MD [address] [place] [address] (Fax) PCP - GeneralFamily Medicine12/27/24 Jude Beach MD [address] [place] [address] Referring PhysicianUrolog12/09/23 Tiffanie Smyth DPWei [address] [place], [place] [id number] Referring PhysicianPodiatr12/09/23 Larissa Leavitt, CORDELL [address] [facility] [address] [place] [address] Registered NurseFamily Medicine02/13/25 Callie Mora MD [address] [place] [address] Referring PhysicianGeneral Surgery05/07/25 Skinny White MD [address] [place] [address] Referring PhysicianOphthalmology05/07/25 Shani Mohan DO [address] [phone] Referring PhysicianNeurology05/07/25documented as of this encounter
--- OUTSIDE RECORDS SUMMARY | 2025-10-17 09:38 | XMS_ITS | Clinical Summary ---
Author Organization [facility] Address [address] [place] [address] Care Team Providers Care Environmental Restoration Planner Name Role Phone Jude Beach MD Unavailable [phone] Tiffanie Smyth DPM Unavailable [phone] Khoa Bowles MD Unavailable [phone] Khoa Bowles MD Primary Care Provider [phone] Larissa Leavitt RN Unavailable [phone] Callie Mora MD Unavailable [phone] Skinny White MD Unavailable [phone] Shani Mohan DO Unavailable [phone] Allergies Active AllergyReactionsCriticalityNoted HwifDbeacdclIfygmulthwr77/23/2025 Other Reaction(s): Unknown Reaction Nntqgbcszo22/03/2014 Other Reaction(s): Other: See Comments moise Meperidine Hcl12/02/2021 Other Reaction(s): moise Abdi BxryipvsmopoTqvjfish09/13/2023 Medications MedicationSigDispense QuantityRefillsLast FilledStart DateEnd DateStatus aspirin 81 MG EC tablet Take 81 mg by mouth in the morning.Active biotin 90776 MCG tablet Take 1 tablet by mouth [...] hyperglycemia, without long-term current use of insulin ([facility])INJECT BID, SLIDING BLOOD GLUCOSE SCALE WITH THE COVERAGE: <70, ZERO AND EAT. 70-150, 10 UNITS. 151-200, 14 UNITS. 201-250, 16 UNITS. 251-300, 18 UNITS. >300, 20 UNITS 15 each 5Active Blood Glucose Monitoring Suppl (Blood Glucose Monitoring 333) device 1 Device continuously AccucheckActive meclizine (Antivert) 25 MG tablet Take 25 mg by mouth 3 (three) times a day as needed for pjhbrodjr75/12/2025 Active Misc. Devices misc Indications:Lymphedema of both lower extremities1 each continuously 1 each 5Active pen needle 32G x 6 mm misc Indications:Type 2 diabetes mellitus with diabetic neuropathic arthropathy, with long-term current use of insulin (HCC),Diabetic neuropathic arthropathy ([facility])Use for Injection subcutaneous twice daily 200 each 5Active dapagliflozin (Farxiga) 10 MG Indications:Diabetic nephropathy associated with type 2 diabetes mellitus (HCC) Take 1 tablet (10 mg) by mouth Daily 90 tablet 5Active DULoxetine (Cymbalta) [address] capsule Indications:Chronic pain syndromeTake 1 tablet twice daily for 2 weeks and then decrease to 1 in AM for 2 weeks, then stop 45 capsule 5Active gabapentin (Neurontin) 300 MG capsule Indications:Chronic pain syndromeTake 1 capsule (300 mg) by mouth in the morning and 1 capsule (300 mg) in the evening and 1 capsule(300 mg) before bedtime. 90 capsule 501/6Active metFORMIN (Glucophage) 1000 MG tablet Indications:Type 2 diabetes mellitus with diabetic microalbuminuria, with long- term current use of insulin ([facility])Take 1 tablet (1,000 mg) by mouth in the morning and 1 tablet (1,000 mg) in the evening. Take with meals. 180 tablet /ctive losartan-hydroCHLOROthiazide (Hyzaar) 100-12.5 MG tablet Indications:Primary hypertensionTake 1 tablet by mouth Daily 90 tablet /ctive hydroCHLOROthiazide (HYDRODiuril) 25 MG tablet Indications:Primary hypertensionTake 1 tablet (25 mg) by mouth in the evening 90 tablet ctive spironolactone (Aldactone) 25 MG tablet Indications:Lymphedema of both lower extremities2 tablets in Am and 1 tablet in PM 270 tablet tive doxycycline (Monodox) 100 MG capsule Indications:Chronic cellulitisTake 1 capsule (100 mg) by mouth Daily 90 capsule ctive fenofibrate (Triglide) 160 MG tablet Indications:Mixed hyperlipidemiaTake 1 tablet (160 mg) by mouth Daily 90 tablet ctive metoprolol tartrate (Lopressor) 50 MG tablet Indications:Primary hypertensionTake 1 tablet (50 mg) by mouth in the morning and 1 tablet (50 mg) before bedtime. 180 tablet ctive metFORMIN (Glucophage) 1000 MG tablet Indications:Type 2 diabetes mellitus with diabetic microalbuminuria, with long- term current use of insulin (HCC)Take 1 tablet (1,000 mg) by mouth in the morning and 1 tablet (1,000 mg) in the evening. Take with meals. 180 tablet Discontinued(Reorder) fenofibrate (Triglide) 160 MG tablet Indications:Mixed hyperlipidemiaTake 1 tablet (160 mg) by mouth Daily 90 tablet Discontinued(Reorder) losartan-hydroCHLOROthiazide (Hyzaar) 100-12.5 MG tablet Indications:Primary hypertensionTake 1 tablet by mouth Daily 90 tablet Discontinued(Reorder) metoprolol tartrate (Lopressor) 50 MG tablet Indications:Primary hypertensionTake 1 tablet (50 mg) by mouth in the morning and 1 tablet (50 mg) before bedtime. 180 tablet Discontinued(Reorder) hydroCHLOROthiazide (HYDRODiuril) 25 MG tablet Indications:Primary hypertensionTake 1 tablet (25 mg) by mouth in the evening 90 tablet Discontinued(Reorder) spironolactone (Aldactone) 25 MG tablet Indications:Lymphedema of both lower extremities2 tablets in Am and 1 tablet in PM 270 tablet Discontinued(Reorder) doxycycline (Monodox) 100 MG capsule Indications:Chronic cellulitisTake 1 capsule (100 mg) by mouth Daily 90 capsule Discontinued(Reorder) DULoxetine (Cymbalta) [address] capsule Take 60 mg by mouth in the morning and 60 mg before bedtime. Discontinued(Reorder) Active Problems ProblemNoted DateDiagnosed DateProstate vjjcpz6506/30/20259799Vxjymlo71/25/2024 Hpxvgrxipdc69/25/2024Myalgia due to cshmab6506/07/2024Lumbar ydnbwkfc77/11/2024 Facet arthritis of lumbar tlvgnn5304/11/2024DD (degenerative disc disease), thotgv3004/11/2024adiculopathy, lumbosacral xizyaf7704/11/2024Hypersomnolence 04/11/20248626Blyzoinmqhslrbjoz18/11/2024 Overview (04/11/2024): radicular pain into the bilateral [...] improved. Spinal stenosis, lumbar region with neurogenic xwweuldckzts95/08/2024Elevated PSA07/28/2023ersonal history of kidney ytqdfe5907/28/2023enign non-nodular prostatic hyperplasia with lower urinary tract zedhkbjd11/12/2023hronic odxssdoehp37/12/2023PAP (continuous positive airway pressure) dependence 04/12/2023Type 2 diabetes mellitus with diabetic neuropathic arthropathy, with long-term current use of kksplew3304/12/2023ifficulty in walking, not elsewhere hdecwjpxar57/12/9090Lwgqiptkqvbk98/12/2023Heart sskwxx7104/12/2023Hypertensive left ventricular hypertrophy, without heart wsburco0004/12/2023Hyperuricemia 04/12/2023Iron deficiency anemia secondary to inadequate dietary iron intake 04/12/2023Lymphedema of both lower snrfzakkmpd85/12/2023Microalbuminuria 04/12/2023Mixed wwhhpjpownqxam32/12/2023Morbid obesity due to excess calories 04/12/2023Obstructive sleep apnea buchifvv72/12/2023Osteoarthritis of spine with radiculopathy, thoracolumbar nqnbjg9604/12/2023Right bundle branch block04/12/2023 Spondylolisthesis, lumbar gpeqbo6504/12/2023Stasis dermatitis of both legs 04/12/20236154Cekbnrsmsjrqqtjd41/12/2023Type 2 diabetes mellitus with foot ulcer (CODE)04/12/2023hronic ulcer of left foot limited to breakdown of skin 08/26/2021eripheral venous fbdwkpnhjwqan60/05/1530Zhvehoewoiwh03/05/2021Type 2 diabetes mellitus with chronic kidney disease, with long-term current use of fpyabtx5810/02/2020History of whmkidxharz51/02/2020 Overview (11/04/2023): Left ankle Thoracic spondylosis without nbxjiowfgq68/02/2020Bilateral nonexudative age- related macular fiepxbxtpadv89/18/2016Polyneuropathy due to type 2 diabetes tysvmjwd79/18/2016Diverticulosis of colon08/10/2015FibromyalgiaPeripheral vascular diseaseBack pain Overview (04/11/2024): severe polyneuropathy and polyradiculopathy- likely due to DM. also has chronic back pain. improvedwith meds. Symptoms have improved with gabapentin. he cannot walk for long distances due to fatigueand weakness and is afraid of falling Resolved Problems ProblemNoted DateDiagnosed DateResolved DateObesity (BMI 30-39.9)07/26/2024 04/25/2025Deep vein thrombosis (DVT) of left lower zdzqmxgun46 Family history of prostate mnaoyi69Nocturia07/28/2023 11/04/2023Skin ulcer of toe of left foot, limited to breakdown of skin04/12/2023 04/03/2024Type 2 diabetes cmugyfqs17Hyperglycemia due to type 2 diabetes acnyyqja59lass 2 dzhzlvz96Lower urinary tract symptoms due to benign prostatic vuoddwkenuq99 Lixclioxnz16Nonexudative age-related macular degeneration MI 40.0-44.9, adultFlank pain02/01/2014 05/07/20251226Limblwpc25/07/2025Malaise and zvyiuxx2305/07/2025Polyneuropathy 04/25/2025 Overview (04/11/2024): Previously was treated with both zonegran and gabapentin. Zonegran has since been weaned. Diabetes normally well controlled. He continues with lower extremity pain despite, likely related to the underlying polyneuropathy. Gabapentin increase lessened symptoms. Encounters DateTypeDepartmentCare HudiDcvvxqnyieg48/16/2025 2:30 PM ESTOffice Visit [facility] [address] [place] [address] Khoa Bowles MD Primary hypertension (Primary Dx); Microalbuminuria; Mixed hyperlipidemia; Hyperuricemia; Type 2 diabetes mellitus with stage 3a chronic kidney disease, with long-term current use of insulin ([facility]); Type 2 diabetes mellitus with foot ulcer (CODE) ([facility]); Type 2 diabetes mellitus with diabetic neuropathic arthropathy, with long-term current use of insulin ([facility]); Polypharmacy; Morbid obesity due to excess calories ([facility]); Type 2 diabetes mellitus with diabetic microalbuminuria, with long-term current use of insulin ([facility]); Lymphedema of both lower extremities; Chronic cellulitis; Chronic pain hgpaalur91/16/2025amboo flowsheet [facility] [address] [address] Khoa Bowles MD 10/16/20255545Wgblur04/11/2025 10:45 AM ESTProcedure [facility] [address] [place] [address] Tiffanie Smyth, DPM Onychomycosis (Primary Dx); Type II or unspecified type diabetes mellitus with neurological manifestations, not 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) ([facility]); Callus; Ingrowing nail, left great toe10/11/20256397Zkyudy36/11/2025linisync Result Encounter [facility] External Department Unsolicited Khoa Bowles MD 10/01/2025Results Follow-Up [address] [address] Khoa Bowles MD NM ISAIAH PERF SPECT REST STR10/01/2025Orders Only [address] [address] Khoa Bowles MD 5Clinisync Result Encounter [facility] External Department Unsolicited Khoa Bowles MD 09/19/2025Telephone [address] [address] Khoa Bowles MD 09/19/2025Results Follow-Up [address] [address] [place] [address] Khoa Bowles MD Holter puiytln7709/18/2025[facility] [address] [place] [address] Larissa Leavitt, CORDELL 08/31/2025Patient Outreach [facility] [address] [place] [address] Larissa Leavitt, CORDELL 08/22/2025Telephone [address] [address] [place] [address] Sridevi Hobson MA Care Coordination (Nurse Visit)08/21/2025Patient Outreach [facility] [address] [place] [address] Larissa Leavitt RN 08/16/2025[facility] [address] [place] [address] Larissa Leavitt, CORDELL 07/19/2025 4:30 PM EDTOffice Visit [address] [address] [place] [address] Khoa Bowles MD Syncope, unspecified syncope type (Primary Dx); Right bundle branch block; Vertigo; Encounter for examination following treatment at hospital; Morbid obesity due to excess calories ([facility]); Lymphedema of both lower ufcmkffudba02/18/2025amboo flowsheet [address] [address] [place] [address] Khoa Bowles MD 07/19/2025Travelfrom Last 3 Months Immunizations ImmunizationAdministration DatesNext DueInfluenza, High Dose Seasonal, Preservative Free10/01/2025,10/26/2024,09/04/2019,08/19/2018,09/06/2017, 08/17/2016Influenza, High-dose Seasonal, Quadrivalent, Preservative Free 09/03/2022Influenza, Seasonal, Quadrivalent, Dxcuztwoaf87/14/2023,08/22/2021, 08/06/2020Influenza, Xziughickwx61/20/2021,08/18/2017,07/27/2013Influenza, seasonal, injectable, preservative free08/17/2015Janssen MGZQ-ZvR-268/27/2021 Moderna Bivalent Booster Zgqbegrkjlc72/09/2022Moderna SARS-CoV-2 Booster Olxrzikjonc12/25/2021neumococcal Conjugate PCV 13012/31/2020,08/17/2016 Pneumococcal Polysaccharide FKNW252811/06/2016,02/22/2012,07/20/2009Tdap02/16/2025 Zoster, live08/22/2015 Family History Medical HistoryRelationNameCommentsNo Known ProblemsBrotherNo Known Problems DaughterNonHodgkins LymphomaFatherDiabetesMotherMaryJaneNo Known ProblemsSister RelationNameStatusCommentsBrother1 brotherDaughterAlive1 daughterFatherDeceased MotherMaryJaneDeceasedOtherAlivespouseSister3 sisters Social History Tobacco UseTypesPacks/DayYears UsedDateSmoking Tobacco: Never Tobacco Cessation:Counseling Given: Yes Alcohol UseStandard Drinks/WeekCommentsNever0 (1 standard drink = 0.6 oz pure alcohol)Caffeine intake: apgdA6388 Health LiteracyAnswerDate RecordedHow often do you need [...] a week 06/18/2025How often do you attend shinto or adventist services?More than 4 times per year06/18/2025Do you belong to any clubs or organizations such as shinto groups, unions, fraternal or athletic groups, or school groups?No06/18/2025How often do you attend meetings of the clubs or organizations you belong to?Never 06/18/2025re you , , , , never , or living with a partner?Edicnoy9906/18/2025UDIT-CAnswerDate RecordedQ1: How often do you have a [...] hard at all06/18/2025PHQ-2AnswerDate Recorded Patient Health Questionnaire-2 Qntkg79912/17/2024[facility] [place] [facility] - Occupational Stress QuestionnaireAnswerDate [...] were you homeless or living in a long term (including now)?No06/18/2025Sex and Gender InformationValueDate RecordedSex Assigned at BirthNot on fileLegal ZauGlzj6301/13/2023 7:09 PM EDTGender IdentityNot on fileSexual OrientationNot on fileOccupationIndustryJob Start DateJob End DateRetiredNot on fileNot on fileNot on file Last Filed Vital Signs Vital SignReadingTime TakenCommentsBlood Nwhwilxu211/6810/16/2025 2:13 PM EST Ypvej825710/16/2025 2:13 PM ESTTemperature--Respiratory Zaei7932 12:34 PM EDTOxygen Fhijtpttfz73%10/16/2025 2:13 PM ESTInhaled Oxygen Concentration-- Ivlfht181 kg (281 lb)10/16/2025 2:13 PM QNALdbsfm601.4 cm (6' 1 )10/16/2025 2:13 PM ESTBody Mass Index37.0710/16/2025 2:13 PM EST Plan of Treatment DateTypeDepartmentCare Team (Latest Contact Info)Lnmyumoevxm97/12/2026 10:45 AM EDTProcedure Visit [facility] [address] [place] [address] Tiffanie Smyth, DPWei [address] [place] [address] 04/11/2026 11:00 AM EDTOffice Visit [facility] [address] [facility] [address] [place] [address] Khoa Bowles MD [address] [facility] [address] [place] [address] (Fax) Health MaintenanceDue DateLast DoneCommentsCT Spdcjmjovdjb1950FIT-DNA 1950FIT1950FOBT1950 2314Yxpbyqzxotkbi1950Diabetes: Hemoglobin A1C/, 10/26/2024, 10/19/2023, Additional history exists Medicare Annual Wellness (AWV)/05/2025, 04/03/2024, 02/22/2023, Additional history djqcljJgbxlxbttdu20/17/202608/Colorectal Cancer Lztacmlcf64/17/2026Diabetes: Urine Protein Gkrhzkozl87/09/2025, 11/18/2021, 07/24/2019Diabetes: Retinopathy Fpiahoesi01, 02/25/2024, 06/08/2022, Additional history existsPneumococcal Vaccine: 65+ Years Nqwdtbvhe42/02/2021, 09/06/2017, 08/17/2016, Additional history existsCOVID-19 TistvkjUqptdtrlzjgf24/09/2022, 09/25/2021, 01/25/2021, Additional history exists Influenza YsjsiehXibjisyfw29/01/2025, 10/26/2024, 10/14/2023, Additional history exists Procedures Procedure NamePriorityDate/TimeAssociated DiagnosisCommentsMLR HEMOGLOBIN A1C Vzssjtd0710/11/2025 9:26 AM EST TBH MICROALB CREAT RATIO GFKEYOZnchxfq35/11/2025 9:14 AM EST NM ISAIAH PERF SPECT REST STR09/26/2025 12:56 PM EST HOLTER HXOLQVIWbmjcvo48/18/2025 3:20 PM EST Syncope, unspecified syncope type Right bundle branch block DIABETIC RETINOPATHY SCREENING - OU - BOTH ZXHSCmkyurk61/26/2024 9:23 AM EDT HEMOGLOBIN Y5NLvqdokr16/19/2023 4:15 PM EST Type 2 diabetes mellitus with hyperglycemia, without long-term current use of insulin (HCC) MICROALBUMIN, URINE GGHCRGmbetyv47/18/2022 12:00 PM EST WOWGUBPBHMIRgzwodq56/17/2016 12:00 PM EDT from Last 3 Months or Most Recently Relevant to Health Maintenance Results * (ABNORMAL) MLR HEMOGLOBIN A1C (10/11/2025 9:26 AM EST)ComponentValueRef Range Test MethodAnalysis TimePerformed AtPathologist SignatureGLYCOHEMOGLOBIN A1C 6.6(H)4.5 - 6.2 %TBHComment: ADA RECOMMENDED LIMIT 4.0 - 6.0 ADA THERAPEUTIC TARGET < 7.0 ACTION SUGGESTED > 7.0 ESTIMATED AVERAGE PINDPNK701vl/dLTBHSpecimen (Source)Anatomical Location / LateralityCollection Method / VolumeCollection TimeReceived Time10/11/2025 9:26 AM EST10/11/2025 9:26 AM EST Narrative [facility] - 10/11/2025 10:08 AM EST Authorizing ProviderResult TypeResult StatusKhoa Bowles MDCLINISYNCFinal ResultPerforming OrganizationAddressCity/State/ZIP CodePhone Number [facility] * (ABNORMAL) TBH MICROALB CREAT RATIO RANDOM (10/11/2025 9:14 AM EST)Component ValueRef RangeTest MethodAnalysis TimePerformed AtPathologist Signature MICROALBUMIN URINE RANDOM3.2<=30.0 mg/dLTBHCREATININE URINE IGUEGH70.5820.00 - 300.00 mg/dLTBHMICROALBUM CREATININE RATIO UR58.6(H)0.0 - 29.9 mg/gTBHComment: NO MICROALBUMINURIA ?0-29 MG/G CLINICAL MICROALBUMINURIA ??30-300 MG/G MACROALBUMINURIA >300 MG/G Specimen (Source)Anatomical Location / LateralityCollection Method / Volume Collection TimeReceived Time10/11/2025 9:14 AM EST10/11/2025 9:26 AM EST Narrative [facility] - 10/11/2025 4:35 PM EST Authorizing ProviderResult TypeResult Nicolette BENTONLINISYNCFinal ResultPerforming OrganizationAddressCity/State/ZIP CodePhone Number [facility] TB * NM ISAIAH PERF SPECT REST STR (09/26/2025 12:56 PM EST)Anatomical Region LateralityModalityOtherSpecimen (Source)Anatomical Location / Laterality Collection Method / VolumeCollection TimeReceived Time09/26/2025 12:56 PM EST Narrative 09/26/2025 12:57 PM EST [facility] ?[address] ? [place] [address] ?Nuclear Medicine Report ? Signed ? Patient: MANUEL BALDERAS ?MR#: [id number] ?? : 1950 ?Acct:[id number] ?? Age/Sex: 75 / M ?ADM Date: 09/25/25 ?? Loc: CARD ? Attending Dr: KHOA BOWLES ? Ordering Physician: KHOA BOWLES ?? Date of Service: 09/25/25 ?? Procedure(s): NM isaiah perf SPECT rest ?? str ?? Accession Number(s): [id number] ? cc: KHOA BOWLES ? Patient Name: ? MANUEL BALDERAS ? MR#: [id number] ? : 1950 ? Exam Date: 09/25/2025 ?? Ordering Doctor: DR KHOA BOWLES . ? RADIOLOGY REPORT ? PROCEDURE: ? NM ISAIAH PERF SPECT REST ?? STR ? COMPARISON: ? None. ? INDICATIONS: ? VENTRICULAR TACHYCARDIA, SYNCOPE, RIGHT BUNDLE BRANCH BLOCK ? TECHNIQUE: ? Exam Description: ? Stress/Rest two day protocol gated SPECT ?? Rest Imaging: ?25.4 mCi Tc-99m Cardiolite IV on 09/26/2025 ?? Stress Imaging ? 24.5 mCi Tc-99m Cardiolite IV on 09/25/2025 ?? Exercise Protocol: ? 0.4 mg Lexiscan given IV ? Heart Rate (bpm): ? Rest: 62 ? Max: 93 ?PMHR: 64 ?? Blood Pressure: ? Rest: 124/77 ?Max: 124/77 ?? Symptoms: ? Rest and peak stress ECG findings were pending and the EKG portion of the ?? study was pending per attending physician [facility] . For more details please see ?? separate cardiac stress test report. ?? FINDINGS: ? QUALITY OF STUDY: ? Fair ?? PERFUSION DEFECT: ?LOCATION: ? Lateral and inferior ?SIZE: ? Large ?SEVERITY: ?Moderate ?TYPE: ?Reversible ?? WALL MOTION: ? Normal ?? LV SIZE: ? 108 mL. ?? TID / TCD: ? 1.1 ?? LVEF: ?Calculated EF 64%. ? SUMMARY: ? Abnormal myocardial perfusion imaging study ? CONCLUSION: ? Abnormal nuclear myocardial perfusion stress images revealing evidence of ?? lateral and inferior ischemia ?? Normal left ventricular systolic function, ejection fraction 64% ?? No transient ischemic dilatation, TID 1.1 ?? EKG portion of the stress test is reported separately ? Dictated by: Niki Heredia MD on 09/26/2025 at 12:53 ? Approved by: Niki Heredia MD on 09/26/2025 at 12:56 ? Dictated By: ?Niki Heredia M.D. ? Signed By: ?11/26/25 1257 ? DD/ 1256 ? TD/TT: ? Lathe Operator Contact Lens: Procedure Note Radiology, Radiologist, MD - 09/26/2025 [place] [address] Nuclear Medicine Report Signed Patient: MANUEL BALDERAS JMR#: [id number] : 1950Acct:[id number] Age/Sex: 75 / MADM Date: 09/25/25 Loc: CARD Attending Dr: KHOA BOWLES Ordering Physician: KHOA BOWLES Date of Service: 09/25/25 Procedure(s): NM isaiah perf SPECT rest str Accession Number(s): [id number] cc: KHOA BOWLES Patient Name: MANUEL BALDERAS MR#: [id number] : 1950 Exam Date: 09/25/2025 Ordering Doctor: DR KHOA BOWLES . RADIOLOGY REPORT PROCEDURE: NM ISAIAH PERF SPECT REST STR COMPARISON: None. INDICATIONS: VENTRICULAR TACHYCARDIA, SYNCOPE, RIGHT BUNDLE BRANCHBLOCK TECHNIQUE: Exam Description: Stress/Rest two day protocol gated SPECT Rest Imagin.4 mCi Tc-99m Cardiolite IV on 09/26/2025 Stress Imaging 24.5 mCi Tc-99m Cardiolite IV on 09/25/2025 Exercise Protocol: 0.4 mg Lexiscan given IV Heart Rate (bpm): Rest: 62 Max: 93 PMHR: 64 Blood Pressure: Rest: 124/77 Max: 124/77 Symptoms: Rest and peak stress ECG findings were pending and the EKG portion of the study was pending per attending physician [facility] . For more details pleasesee separate cardiac stress test report. FINDINGS: QUALITY OF STUDY: Fair PERFUSION DEFECT: LOCATION: Lateral and inferior SIZE: Large SEVERITY: Moderate TYPE: Reversible WALL MOTION: Normal LV SIZE: 108 mL. TID / TCD: 1.1 LVEF: Calculated EF 64%. SUMMARY: Abnormal myocardial perfusion imaging study CONCLUSION: Abnormal nuclear myocardial perfusion stress images revealing evidence of lateral and inferior ischemia Normal left ventricular systolic function, ejection fraction 64% No transient ischemic dilatation, TID 1.1 EKG portion of the stress test is reported separately Dictated by: Niki Heredia MD on 09/26/2025 at 12:53 Approved by: Niki Heredia MD on 09/26/2025 at 12:56 Dictated By: Niki Heredia M.D. Signed By:09/26/25 1257 DD/ 1256 TD/TT: Lathe Operator Contact Lens: Authorizing ProviderResult TypeResult Nicolette Bowles [facility] Final Result * Holter monitor (09/18/2025 3:20 PM EST) Narrative Authorizing ProviderNeult TypeResult Nicolette Bowles [facility] [place] CARDIAC SERVICES PROCEDURESFinal ResultPerforming OrganizationAddressCity/State/ZIP Code Phone Number [address] [address], * Diabetic Retinopathy Screening - OU - Both Eyes (02/25/2024 9:23 AM EDT) Anatomical RegionLateralityModalityHeadOther Narrative Authorizing ProviderResult TypeResult Sudheer Truong MDW[facility] PHOTOGRAPHY Final Result * Hemoglobin A1c (10/19/2023 4:15 PM EST)Specimen (Source)Anatomical Location / LateralityCollection Method / VolumeCollection TimeReceived TimeBloodVenous blood specimen / Unknown Narrative Authorizing ProviderResult TypeResult Nicolette Bowles MDLAB BLOOD ORDERABLESFinal ResultPerforming OrganizationAddressCity/State/ZIP CodePhone Number [facility] * MICROALBUMIN, URINE QUANT (11/18/2021 12:00 PM EST)ComponentValueRef RangeTest MethodAnalysis TimePerformed AtPathologist SignatureGENERIC LEGACY COMPONENT INTERNAL1-1,500ECW NONXML LABSGENERIC LEGACY COMPONENT INTERNAL1,500ECW NONXML LABSSpecimen (Source)Anatomical Location / LateralityCollection Method / VolumeCollection TimeReceived Time11/18/2021 12:00 PM EST Narrative Authorizing ProviderResult TypeResult StatusKhoa Bowles MDECW LABSFinal ResultPerforming OrganizationAddressCity/State/ZIP CodePhone Number [facility] NONXML LABS * Colonoscopy (06/17/2016 12:00 PM EDT)Anatomical RegionLateralityModality EndoscopySpecimen (Source)Anatomical Location / LateralityCollection Method / VolumeCollection TimeReceived Time06/17/2016 12:00 PM EDT Narrative 04/29/2017 12:00 PM EDT PERFORMED AT [facility] LOCATION:[id number] Abnormal Procedure Note CONVERSION, GENERIC - 03/18/2023 PERFORMED AT [facility] LOCATION:[id number] Abnormal Authorizing ProviderResult TypeResult StatusKhoa Bowles MDENDOSCOPY PROCEDURE ORDERABLESFinal Result from Last 3 Months or Most Recently Relevant to Health Maintenance Insurance Advance Directives TypeDate RecordedPatient RepresentativeExplanationPower of Attorney03/29/2024 1:37 [id number] POAAdvance Directives and Living Will03/29/2024 1:37 PM 2013-07-10 Living Will Care Teams Team MemberRelationshipSpecialtyStart DateEnd Date Khoa Bowles MD [address] [place], [place] [phone] (Fax) PCP - [facility] Reach12/31/23 Khoa Bowles MD [address] [facility] [address] [place] [address] (Fax) PCP - GeneralFamily Medicine12/27/24 Jude Beach MD [address] [place] [address] Referring PhysicianUrolog12/09/23 Tiffanie Smyth DPM [address] [place] [address] Referring PhysicianPodiatry2 Larissa Leavitt, CORDELL [address] [place] [address] Registered NurseFamily Medicine02/13/25 Callie Mora MD [address] [facility] [place], [place] [phone] Referring PhysicianGeneral Surgery05/07/25 Skinny White MD [address] [place] [address] Referring PhysicianOphthalmology05/07/25 Shani Mohan DO [address] [place] [phone] Referring PhysicianNeurology05/07/25
--- OUTSIDE RECORDS SUMMARY | 2025-10-17 09:38 | XMS_ITS | Encounter Summary ---
Author Organization [facility] Address [address] [place] [address] Care Team Providers Care Food Sales Clerk Name Role Phone Jude Beach MD Unavailable [phone] Tiffanie Smyth DPM Unavailable [phone] Khoa Godinez MD Unavailable [phone] Khoa Godinez MD Primary Care Provider + [phone] Larissa Leavitt RN Unavailable [phone] Callie Mora MD Unavailable [phone] Skinny White MD Unavailable [phone] Shani Mohan DO Unavailable [phone] Encounter Details DateTypeDepartmentCare Team (Latest Contact Info)Wagmmzprcpm26/11/2025Travel Social History Tobacco UseTypesPacks/DayYears UsedDateSmoking Tobacco: NeverAlcohol UseStandard Drinks/WeekCommentsNever0 (1 standard drink = 0.6 oz pure alcohol)Caffeine intake: [id number] Health LiteracyAnswerDate RecordedHow often do you need to have someone help you when you read instructions, pamphlets, or other written material from your doctor or pharmacy?Never06/18/2025Social Connection and Isolation PanelAnswerDate RecordedIn a typical week, how many times do you talk on the phone with family, friends, or neighbors?Never06/18/2025How often do you get together with friends or relatives?Once a week06/18/2025How often do you attend episcopal or pentecostal services?More than 4 times per year06/18/2025Do you belong to any clubs or organizations such as episcopal groups, unions, fraternal or athletic groups, or [...] at all 06/18/2025PHQ-2AnswerDate RecordedPatient Health Questionnaire-2 Score0 05/07/2025[facility] [place] [facility] Occup[facility] Health - Occupational Stress QuestionnaireAnswerDate [...] homeless or living in a long-term (including now)?No06/18/2025Sex and Gender InformationValueDate RecordedSex Assigned at BirthNot on fileLegal FcdTcmf9001/13/2023 7:09 PM EDT Gender IdentityNot on fileSexual OrientationNot on fileOccupationIndustryJob Start DateJob End DateRetiredNot on fileNot on fileNot on filedocumented as of this encounter Plan of Treatment DateTypeDepartmentCare Team (Latest Contact Info)Ftfedulvwsk22/12/2026 10:45 AM EDTProcedure Visit [facility] [address] [place] [address] Tiffanie Smyth, DPM [address] [place] [address] 04/11/2026 11:00 AM EDTOffice Visit [facility] [address] [facility] [address] [place] [address] Khoa Godinez MD [address] [facility] [address] [place] [address] documented as of this encounter Visit Diagnoses Not on filedocumented in this encounter Additional Health Concerns AssessmentNoted TimePHQ-9 Depression Total Score: 10:00 AM EDT documented as of this encounter Care Teams Team MemberRelationshipSpecialtyStart DateEnd Date Khoa Godinez MD [address] [place] [address] [place] [address] PCP - ACO Reach12/31/23 Khoa Godinez MD [address] [facility] [address] [place] [address] PCP - GeneralFamily Medicine12/27/24 Jude Beach MD [address] [place] [address] Referring PhysicianUrolog12/09/23 Tiffanie Smyth DPM [address] [place] [address] Referring PhysicianPodiatr12/09/23 Larissa Leavitt, CORDELL [address] [facility] [address] [place], [place] [phone] Registered NurseFamily Medicine02/13/25 Callie Mora MD [address] [place] [address] Referring PhysicianGeneral Surgery05/07/25 Skinny White MD [address] [place] [address] Referring PhysicianOphthalmology05/07/25 Shani Mohan DO [address] [facility] [address] [place] [address] Referring PhysicianNeurology05/07/25documented as of this encounter
--- OUTSIDE RECORDS SUMMARY | 2025-10-17 09:38 | XMS_ITS | Clinical Summary ---
Author Organization [employer] Address [id number] [address] [place] [address] Care Team Providers Care Bailer Operators Supervisor Name Role Phone Khoa Godinez MD Primary Care Provider + [phone] Allergies Active AllergyReactionsCriticalityNoted AswqMbskebnmRsujqhyuxx82/08/2018 Medications MedicationSigDispense QuantityRefillsLast FilledStart DateEnd DateStatus losartan-hydrochlorothiazide [...] Venous duplex ultrasound. Lipodermatosclerosis of both lower eblcjhgqtyf65/09/2024 Assessment & Plan (03/09/2024 10:35 AM EDT): Continue compression stockings. Venous duplex ultrasound. Encounters DateTypeDepartmentCare MekvEcbtbaubkzr62/25/2025 2:30 PM EDTOffice Visit [facility] [place] [address] [address] Precious Maya, INFORMATION TECHNOLOGY OFFICER-STATE TESTED NURSING ASSISTANT Venous insufficiency of both lower extremities (Primary Dx)07/25/2025Travel 07/24/2025Travelfrom Last 3 Months Social History Tobacco UseTypesPacks/DayYears UsedDateSmoking Tobacco: UnknownAlcohol Use Standard Drinks/WeekCommentsDefer0 (1 standard drink = 0.6 oz pure alcohol) ChildcareAnswerDate KhnyhjbmMggxwtbveNchxwod80/12/2019EmploymentAnswerDate WvvrdvdqFgdvxckbaxHjwvlzv24/12/2019Hunger ScreeningAnswerDate RecordedWithin the past 12 months we worried whether our food would run out before we got money to buy more.Never True06/28/2025Within the past 12 months the food we bought just didn't last and we didn't have money to get more.Never True06/28/2025Purpose - LifeAnswerDate RecordedPurpose and direction in vdezHzszouh46/11/2021ex and Gender InformationValueDate RecordedSex Assigned at BirthNot on fileLegal Sex Male06/06/2015 12:03 PM EDTGender IdentityNot on fileSexual OrientationNot on file Last Filed Vital Signs Vital SignReadingTime TakenCommentsBlood Vdfngctp366/6909 2:08 PM EDT Tpgng825807/26/2025 2:08 PM EDTTemperature--Respiratory Awet537812/09/2017 9:20 PM ESTOxygen Gofzwpridi55%07/26/2025 2:08 PM EDTInhaled Oxygen Concentration-- Rycwbl325 kg (280 lb)07/26/2025 2:08 PM QPBKgrahj648.4 cm (6' 1 )07/26/2025 2:08 PM EDTBody Mass Index36.9407/26/2025 2:08 PM EDT Plan of Treatment DateTypeDepartmentCare Team (Latest Contact Info)Cgnqyobcayc69/18/2025 3:00 PM ESTOffice Visit [facility] [place] [address] [place] [address] Precious Maya, INFORMATION TECHNOLOGY OFFICER-STATE TESTED NURSING ASSISTANT [address] [place] [address] Health MaintenanceDue DateLast DoneCommentsDepression Nlqsbtfor28/30/1962Fall Risk Uxrqbbsev65/30/2015Zoster (Shingles) Vaccine (2 of 3) RSV ( or age 60+ yrs) (1 - 1-dose 75+ series)2025OVID-19 Vaccine ( - 2024- season)/07/2022, 09/26/2021, 01/25/2021, Additional history existsInfluenza Kxemaxv83/, 10/14/2023, 09/03/2022, Additional history existsTobacco Sketpyqxs28/28/50940706/28/2025DTaP,Tdap and Td Vaccines (2 - Td or Tdap) Medical Devices Not on file Insurance Care Teams Team MemberRelationshipSpecialtyStart DateEnd Khoa Godinez MD PCP - [facility]12/09/17
--- NOTE | 2025-10-17 10:00 | CA_ITS ---
Patient Name: DUARTE ABRAHAM MR#: [id number] : 1950 Exam Date: 10/17/2025 Ordering Doctor: DR STEVE GUTIERREZ M.D. ECHOCARDIOGRAM REPORT PROCEDURE: CA ECHO DOPPLER COMPLETE INDICATIONS: Abnormal stress test, hypertension, diabetes COMPARISON: None. DESCRIPTION: COMPLETE ECHOCARDIOGRAM Real-time transthoracic echocardiography with 2D, M-mode, spectral and color flow Doppler performed. QUALITY: Technical quality was good. LEFT VENTRICLE: Normal chamber size. Thickened septal wall. Normal systolic function. Estimated left ventricular ejection fraction is 60%. LV EF: Normal left ventricular ejection fraction, (>55%). DIASTOLIC: Normal diastolic function. ATRIAL SEPTUM: LEFT ATRIUM: Mild dilatation. RIGHT ATRIUM: Mild dilatation. RIGHT VENTRICLE: Normal chamber size. Normal right ventricular systolic function. TRICUSPID VALVE: Normal mobility and thickness. No stenosis with trivial regurgitation. No evidence of pulmonary hypertension. RVSP 21 mmHg MITRAL VALVE: Normal mobility and thickness. No evidence of mitral valve stenosis. There is no mitral annular calcification. No mitral regurgitation. AORTIC VALVE: Mildly calcified aortic valve. Mildly diminished mobility. Doppler velocity suggest mild aortic valve stenosis. DVI 0.5, RENA 1.9 cm2, Vmax 2.01 m/s, peak/mean PG 16/7 mmHg. No aortic regurgitation. AORTIC ROOT: Normal diameter and appearance, measuring 3.5 cm. Ascending aorta (3.1 cm) and aortic arch are normal in size. PULMONIC VALVE: Normal thickness and mobility. No stenosis. Trivial regurgitation. PERICARDIUM: No evidence of pericardial effusion. IVC: Within normal limits. PLEURA: CONCLUSION: 1. Normal left ventricular size and systolic function. Estimated LVEF is 60%. 2. Normal right ventricular size and systolic function. 3. Normal diastolic function. 4. Mild biatrial dilatation. 5. Mildly calcified aortic valve with mild stenosis and no regurgitation. 6. Normal right-sided pressures. Adult Echocardiography Procedure Report Left Ventricle LVEDD (3.7 - 5.6 cm): 4.73 cm LVESD (2.2 - 4.0 cm): 3.18 cm LVIVS thickness (0.6 - 1.2 cm): 1.33 cm LVPW thickness (0.5 - 1.0 cm): 0.94 cm e': 0.06 m/s E - e': 5.91 LVOT Max Gradient: 4.35 mm[Hg] LVOT Area (cm2): 1.04 m/s Peak Velocity (LVOT): 1.04 m/s Mean Velocity (LVOT): 0.68 m/s LVOT Diameter 2.04 cm Left Ventricular Ejection Fraction: 60 % Left Atrium LA Volume Index (2D A2C): 34.12 ml/m2 Left Atrium Systolic Dimension: 3.37 cm Mitral Valve MV E to A Ratio: 0.64 Mitral Valve A-Wave Peak Velocity: 0.58 m/s Mitral Valve E-Wave Peak Velocity: 0.37 m/s Right Ventricle Aorta AO Root Diam: 3.55 cm Ascending Ao Diam: 3.08 cm Aortic Valve AoV Area (Peak Diego): 1.69 cm2, 1.71 cm2 AoV Area (VTI): 1.92 cm2, 1.92 cm2 Peak Velocity(Antegrade Flow): 1.98 m/s, 1.93 m/s, 2.01 m/s Peak Gradient(Antegrade Flow): 15.75 mm[Hg], 14.93 mm[Hg], 16.17 mm[Hg] Mean Velocity(Antegrade Flow): 1.15 m/s, 1.08 m/s, 1.13 m/s Mean Gradient(Antegrade Flow): 6.62 mm[Hg], 6.22 mm[Hg], 6.58 mm[Hg] Velocity Time Integral: 38.88 cm, 34.86 cm, 36.41 cm Tricuspid Valve Peak Velocity (Regurgitant Flow): 1.78 m/s, 2.14 m/s Pulmonic Valve Mean Gradient: 2.86 mm[Hg] Mean Velocity: 0.79 m/s Peak Velocity: 1.19 m/s Peak Gradient: 5.70 mm[Hg] Right Atrium Right Atrium Systolic Pressure: 81.93 ml, 81.93 ml Dictated by: Constantin Rush M.D. on 10/17/2025 at 20:21 Approved by: Constantin Rush M.D. on 10/17/2025 at 20:26
[2025-10-17 10:18] LABS: Hematocrit 40.7 % (42.0-54.0); Hemoglobin 13.3 g/dL (14.0-18.0); Immature Granulocytes Abs Auto 0.04 10^3/uL (0.00-0.03); Immature Granulocytes Pct Auto 0.7 % (0.0-0.5); Lymphocytes Absolute Auto 0.8 10^3/uL (1.2-3.8); Mean Corpuscular HGB Conc 32.7 g/dL (29.9-35.2); Mean Corpuscular Hemoglobin 31.9 pg (25.9-34.0); Mean Corpuscular Volume 97.6 fL (80.0-94.0); Platelet Count 118 10^3/uL (150-450); Red Blood Count 4.17 10^6/uL (4.70-6.10); White Blood Count 5.9 10^3/uL (4.0-11.0)
[2025-10-17 10:58] LABS: Anion Gap 13.8; Blood Urea Nitrogen 35.0 mg/dL (7.0-18.0); Calcium 9.9 mg/dL (8.5-10.1); Carbon Dioxide 29.1 mmol/L (21.0-32.0); Chloride 103 mmol/L (98-107); Cholesterol 129 mg/dL (<=200); Estimated GFR (African America >60 (>=60 mL/min/1.73m^2); Estimated GFR (Non-African Ame 52 (>=60 mL/min/1.73m^2); Glucose 178 mg/dL (74-106); HDL Cholesterol 31 mg/dL (40-60); Potassium 4.9 mmol/L (3.5-5.1); Sodium 141 mmol/L (136-145); Triglycerides 189 mg/dL (<=150); VLDL CHOLESTEROL 37.8 mg/dL
== END 2025-10-17 09:30 | disposition home or self-care (01) ==
LOC: CARD 09:31
PROVIDERS: PCP Family Medicine; Visit Provider Internal Medicine Interventional Cardiology
DX: R94.39 Abnormal result of other cardiovascular function study (principal); I47.29 Other ventricular tachycardia; E78.2 Mixed hyperlipidemia
CPT/HCPCS: 36415; 80048; 80061; 85025; 93306